=== PATIENT | female | born 1975 | race Hispanic/Latino ===

== ENCOUNTER 2017-07-31 15:26 | Inpatient (IN) | payer OTHER ==
[~2017-07-31] VITALS: Ht 154.9 cm; Wt 50.3 kg
[~2017-07-31 15:26] MED LIST: FEOSOL325 MG PO; HUMULIN R100 UNIT/2; Insulin Detemir SQ; K DUR10 MEQ PO; LANTUS 3ML100 UNITS/ SC; MECLIZINE HCL12.5 MG PO; METHIMAZOLE10 MG PO; METHIMAZOLE5 MG PO; METOPROLOL SUCC25 MG PO; NOVOLOG100 UNITS1; PANTOPRAZOLE SO40 MG PO; PROPRANOLOL HCL40 MG PO; TOPROL XL50 MG PO; TYLENOL WITH C1 EACH PO
[2017-07-31 17:08] LABS: BILIRUBIN,URINE NEGATIVE (NEGATIVE); KETONES,URINE NEGATIVE (NEGATIVE); LEUKOCYTE ESTERASE ,URINE 2+ (NEGATIVE); NITRITE,URINE NEGATIVE (NEGATIVE); URINE UROBILINOGEN 0.2 mg/dL (0.2 - 1)
[2017-07-31 17:09] LABS: CLARITY,URINE SL CLOUDY (CLEAR); COLOR,URINE YELLOW (YELLOW); PROTEIN,URINE DIPSTICK 1+ (NEGATIVE)
[2017-07-31 17:22] LABS: BACTERIA,URINE RARE /HPF; EPITHELIAL CELLS,URINE RARE /LPF; RBC,URINE >50 /HPF (0-5)
[2017-07-31 17:27] LABS: PREGNANCY TEST, URINE NEGATIVE (NEGATIVE)
[2017-07-31] MEDS ORDERED: LABETALOL HCL IV 5 MG/ML 20ML MDV IV STA ×2 (17:29→18:58)
[2017-07-31] MEDS ORDERED: MEROPENEM 1GRAM 1 GM in SODIUM CHLORIDE 0.9% 100 ML 100 ML IV STA (17:34)
[2017-07-31] MEDS ORDERED: SODIUM CHLORIDE 0.9% 1000ML 1,000 ML IV SCH ×4 (17:34→19:21)
[2017-07-31 17:45] LABS: AMPHETAMINES SCREEN,URINE NEGATIVE (NEGATIVE); BENZODIAZEPINES SCREEN,URINE POSITIVE (NEGATIVE); PHENCYCLIDINE SCREEN,URINE NEGATIVE (NEGATIVE)
[2017-07-31 17:45] LABS: BASOPHILS % 0.4 % (0.0-1.0); EOSINOPHILS # (AUTO) 0.1 (0.0-0.4); HEMATOCRIT 35.4 % (34.2-44.1); LYMPHOCYTES # (AUTO) 1.6 (1.0-3.2); LYMPHOCYTES % 32.9 % (18.0-39.1); MEAN CORPUSCULAR HEMOGLOBIN 21.8 pg (28-32); MEAN CORPUSCULAR HGB CONC 31.1 g/dL (31-35); MEAN CORPUSCULAR VOLUME 70.2 fL (81-99); MONOCYTES # (AUTO) 0.5 (0.2-0.8); MONOCYTES % 9.6 % (4.4-11.3); NEUTROPHILS # (AUTO) 2.7 (2.1-6.9); NEUTROPHILS % 54.9 % (38.7-80.0); PLATELET COUNT 394 x10e3/uL (140-360); RED BLOOD COUNT 5.04 x10e6/uL (3.6-5.1)
[2017-07-31] MEDS ORDERED: MORPHINE SULFATE 5 MG/ML VIAL IV ONE (17:45)
[2017-07-31 17:46] LABS: CANNABINOIDS SCREEN,URINE NEGATIVE (NEGATIVE)
[2017-07-31 18:03] LABS: ALANINE AMINOTRANSFERASE 18 IU/L (0-55); ALBUMIN 3.6 g/dL (3.5-5.0); ALBUMIN/GLOBULIN RATIO 0.6 (0.8-2.0); ALKALINE PHOSPHATASE 232 IU/L (40-150); ANION GAP 13.3 mmol/L (8-16); BLOOD UREA NITROGEN 15 mg/dL (7-26); BUN/CREATININE RATIO 26 (6-25); CALCIUM 9.2 mg/dL (8.4-10.2); CARBON DIOXIDE 18 mmol/L (22-29); CHLORIDE 106 mmol/L (98-107); CREATININE, SERUM 0.58 mg/dL (0.57-1.11); EST GLOMERULAR FILTRATION RATE > 60 ML/MIN (60-); GLUCOSE 164 mg/dL (74-118); POTASSIUM 4.3 mmol/L (3.5-5.1); SODIUM 133 mmol/L (136-145)
[2017-07-31 18:23] LABS: THYROID STIMULATING HORMONE 0.001 uIU/mL (0.350-4.940)
[2017-07-31] MEDS ORDERED: METOPROLOL TART25 MG PO (18:29)
[2017-07-31] MEDS ORDERED: METHIMAZOLE10 MG PO (18:29)
[2017-07-31] MEDS ORDERED: SODIUM CHLORIDE 0.9% 50ML 50 ML ONE (19:19)
[2017-07-31] MEDS ORDERED: IOPAMIDOL 300MG/ML 100 ML INFUS..BTL IV ONE (19:20)
[2017-07-31] MEDS ORDERED: IOPAMIDOL 370 MG/ML 200 ML INFUS..BTL INJ ONE (19:21)
[2017-07-31] MEDS: SODIUM CHLORIDE 0.9% 1000ML 1,000 ML IV SCH (19:24)
--- NOTE | 2017-07-31 19:29 | Diagnostic Imaging Report ---
CT Abdomen And Pelvis with Intravenous Contrast INDICATION: Recurrent UTI, evaluate for pyelonephritis TECHNIQUE: Thin collimation axial images obtained from the diaphragm to the level of the pubic symphysis following the uneventful administration of 100 cc of low osmolar, nonionic intravenous contrast. RADIATION DOSE: Total DLP: 195 mGy*cm Estimated effective dose: (DLP x 0.015 x size factor) mSv CTDIvol has been reviewed. It is below the limits set by the Radiation Protocol Committee (RPC). COMPARISON: CT abdomen/pelvis 12/26/2016. ABDOMEN FINDINGS: Lung Bases: Clear. The visualized portions of the mediastinum are normal.. Liver: Normal attenuation. No evidence for mass. Gallbladder: Absent. The common bile duct is distended measuring up to 9 mm in diameter. This comes to a tight taper at the ampulla. No intraluminal calculi.. Pancreas: A cystic lesion between the pancreas head and the stomach measures 1.9 x 2.4 cm (previously, 1.3 x 2.0 cm). A fluid collection in the splenic hilum measures 2.0 x 2.7 cm (previously, 2.4 x 6.0 cm). The pancreas tail is mildly atrophic with poor enhancement. No ductal dilatation or calcification. Spleen: Lobulated contours suggestive of scarring. The spleen measures 11 cm in length. Adrenal Glands: No evidence for mass. Kidneys: Right: Normal enhancement. No cortical mass. No hydronephrosis. Left: There is normal enhancement. The collecting system is distended. A stent in the renal pelvis extends into the bladder. No perinephric inflammation. Renal cortical scarring has developed.. No cortical mass. Lymph Nodes: Mildly prominent left periaortic lymph nodes measure up to 18 mm. No abdominal lymphadenopathy. Aorta: Normal in diameter. No free fluid. PELVIS FINDINGS: Bowel: Small Bowel: Normal in caliber with normal wall thickness. Large Bowel: Normal in caliber with normal wall thickness. Appendix: Normal appendix. Bladder: Contains the left ureteral stent and nondependent air. The bladder díaz are mildly thickened. This could be from underdistention or cystitis. The right ureter is collapsed. There are no encrustations along the course of the stent. Uterus: Present. A solid mass in the body to the left of midline measures 9.5 x 9.5 cm in the coronal plane and deviates the endometrium to the right. This is similar in size compared to previous exam. A mass extending to the right of the uterine fundus measures 5.2 x 7.1 cm in the axial plane and has enhancement similar to that of more normal myometrium. The cervix has normal enhancement. Ovaries: A low attenuating lesion the right ovary measures 1.8 x 2.4 cm. A low attenuating lesion in the left ovary measures 2.0 x 2.5 cm. There is no free fluid or fluid collection. Lymph nodes: No enlarged mesenteric lymph nodes. Lymph nodes along the pelvic sidewalls measure up to 10 mm. No enlarged inguinal lymph nodes. Bones: The bones are diffusely demineralized. There are no lytic or blastic lesions.. IMPRESSION: 1. Left intrauterine stent is in appropriate position with mild hydronephrosis. No CT evidence of acute pyelonephritis. 2. Diffuse bladder wall thickening could be the result of chronic cystitis. Superimposed acute cystitis cannot be excluded. 3. Large hypoenhancing mass in the uterus is more suggestive of a leiomyosarcoma rather than a leiomyoma. Mass arising from the uterine fundus has a more usual appearance of a pedunculated leiomyoma. 4. Bilateral ovarian cysts as described above. 5. Fluid collections around the pancreas are suggestive of pseudocysts. 6. 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 7. Scarring of the left kidney. 8. Cholecystectomy and mild biliary ductal dilatation suggestive of reservoir effect. Signed by: Dr. Zulma Vicente MD on 07/31/2017 7:25 PM
[2017-07-31] MEDS ORDERED: SODIUM CHLORIDE FLUSH 10 ML SYR INJ PRN (19:30)
[2017-07-31] MEDS ORDERED: MEROPENEM 1GRAM 1 GM in SODIUM CHLORIDE 0.9% 100 ML 100 ML IV SCH (19:30)
[2017-07-31] MEDS: MEROPENEM 1 GM VIAL IV SCH (19:49)
[2017-07-31 20:46] LABS: LYMPHOCYTES % (MANUAL) 34 % (19-48); MONOCYTES % (MANUAL) 11 % (3.4-9.0); NEUTROPHILS % (MANUAL) 54 % (40-74)
[2017-07-31 20:48] LABS: ANISOCYTOSIS SLIGHT; PLATELET ESTIMATE ADEQUATE; PLATELET MORPHOLOGY COMMENT FEW LARGE; POIKILOCYTOSIS SLIGHT; RBC MORPHOLOGY COMMENT NORMAL
[2017-07-31 21:23] VITALS: BP 132/63
[2017-07-31 22:00] VITALS: BP 132/63
[2017-07-31 22:37] VITALS: BP 132/63
[2017-07-31] MEDS: MORPHINE SULFATE 2 MG/ML SYR IV PRN (23:28)
[2017-08-01] VITALS (8 sets, daily range): BP systolic 109–139; BP diastolic 55–71
[2017-08-01] MEDS: SODIUM CHLORIDE 0.9% 1000ML 1,000 ML IV SCH (02:58)
[2017-08-01] MEDS: MORPHINE SULFATE 2 MG/ML SYR IV PRN ×2 (04:33→09:53)
[2017-08-01 06:56] LABS: BASOPHILS % 0.5 % (0.0-1.0); EOSINOPHILS # (AUTO) 0.2 (0.0-0.4); EOSINOPHILS % 3.8 % (0.0-6.0); HEMATOCRIT 29.1 % (34.2-44.1); LYMPHOCYTES # (AUTO) 1.5 (1.0-3.2); LYMPHOCYTES % 38.4 % (18.0-39.1); MEAN CORPUSCULAR HEMOGLOBIN 21.6 pg (28-32); MEAN CORPUSCULAR HGB CONC 30.9 g/dL (31-35); MEAN CORPUSCULAR VOLUME 69.8 fL (81-99); MONOCYTES # (AUTO) 0.5 (0.2-0.8); MONOCYTES % 12.1 % (4.4-11.3); NEUTROPHILS # (AUTO) 1.8 (2.1-6.9); NEUTROPHILS % 44.9 % (38.7-80.0); PLATELET COUNT 306 x10e3/uL (140-360); RED BLOOD COUNT 4.17 x10e6/uL (3.6-5.1); RED CELL DISTRIBUTION WIDTH 17.1 % (11.7-14.4)
[2017-08-01 07:22] LABS: ALANINE AMINOTRANSFERASE 14 IU/L (0-55); ALBUMIN 2.8 g/dL (3.5-5.0); ALBUMIN/GLOBULIN RATIO 0.6 (0.8-2.0); ALKALINE PHOSPHATASE 193 IU/L (40-150); ANION GAP 10.7 mmol/L (8-16); BLOOD UREA NITROGEN 15 mg/dL (7-26); BUN/CREATININE RATIO 31 (6-25); CALCIUM 8.4 mg/dL (8.4-10.2); CARBON DIOXIDE 19 mmol/L (22-29); CHLORIDE 108 mmol/L (98-107); CREATININE, SERUM 0.49 mg/dL (0.57-1.11); EST GLOMERULAR FILTRATION RATE > 60 ML/MIN (60-); GLUCOSE 200 mg/dL (74-118); MAGNESIUM 1.5 MG/DL (1.3-2.1); PHOSPHORUS 2.8 MG/DL (2.3-4.7); POTASSIUM 3.7 mmol/L (3.5-5.1); SODIUM 134 mmol/L (136-145)
[2017-08-01] MEDS: MEROPENEM 1 GM VIAL IV SCH (08:24)
[2017-08-01] MEDS: METHIMAZOLE 5 MG TAB PO SCH ×3 (08:25→21:23)
[2017-08-01] MEDS: INSULIN ASPART 70/30 100 UNITS/ML VIAL SC SCH ×3 (08:25→16:31)
[2017-08-01] MEDS: METOPROLOL TARTRATE 25 MG TAB PO SCH ×3 (08:25→16:31)
[2017-08-01] MEDS ORDERED: METHIMAZOLE PO SCH (09:00)
[2017-08-01] MEDS ORDERED: METOPROLOL TARTRATE 25 MG TAB PO SCH (09:00)
[2017-08-01] MEDS: ONDANSETRON HCL INJ 2 MG/ML VIAL IV PRN ×2 (09:53→14:49)
[2017-08-01 13:04] LABS: % IRON SATURATION 5 % (15-50); IRON 17 ug/dL (50-170); TOTAL IRON BINDING CAPACITY 351 ug/dL (261-478); TRANSFERRIN 251 mg/dL (180-382)
--- NOTE | 2017-08-01 13:59 | History and Physical ---
HISTORY: This is a 41-year-old woman with chronic urinary tract infection. Admitted via the emergency room because of hematuria, abdominal pains worsening over the past 3 days. This patient also has hyperthyroidism treated with methimazole and metoprolol. 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 She has been seen by Dr. Mars at [facility] for urology and sees an case management rn. She follows with Dr. Caleb Murray for diabetes, microcytic anemia, recurrent pancreatitis, thrombocytopenia. She has been hospitalized at [facility] as well as here in 2016. PAST MEDICAL HISTORY: Remarkable for the above-mentioned conditions. She takes Lantus insulin 30 units nightly as well as short-acting insulin 12 units t.i.d. with meals. Other medications include metoprolol 25 mg b.i.d., methimazole 10 mg p.o. t.i.d., hydromorphone, Pepcid. PERSONAL AND SOCIAL HISTORY: She smokes 1/2 package per day since age 13. She drinks occasionally. She is unemployed. FAMILY HISTORY: Father from murder when she was 1 years old. Mother had diabetes. REVIEW OF SYSTEMS: Otherwise noncontributory. PHYSICAL EXAMINATION: GENERAL: She is alert, coherent, appears to be comfortable. VITAL SIGNS: Temperature 96.8. Pulse 100, regular. Blood pressure 118/58. CARDIAC: Jugular veins are not distended. S1 and S2 are regular. There are no appreciable murmurs. RESPIRATORY: Lungs are clear. ABDOMEN: Showed diffuse tenderness but mild. Soft. Bowel sounds are present. EXTREMITIES: Show no cyanosis, clubbing or edema. IMPRESSION: 1. Recurrent urinary tract infection with left ureteral stent, possible pyelonephritis with evidence of scarring in the left kidney. 2. Hyperthyroidism. 3. Insulin-dependent diabetes with history of ketoacidosis. 4. History of pancreatitis. 5. History of thrombocytopenia. 6. Microcytic anemia, consider iron deficiency. 7. Hyponatremia, serum sodium 133. 8. History of pancreatitis. RECOMMENDATIONS: Infectious disease, endocrinology consultations, urology consultation. Consider removing left ureteral stent. Culture urine to identify the bacteria and appropriate antibiotics. Job#: [id number] cc:MD SPIKE LEOS MD MAURICE E. AKUCHIE, MD KULDIP KAUL, MD
[2017-08-01 14:00] LABS: T3 UPTAKE 31.8 % (22.50-37.00); THYROID STIMULATING HORMONE 0.001 uIU/mL (0.350-4.940)
[2017-08-01] MEDS ORDERED: AZTREONAM 1 GM VIAL IV SCH (14:00)
[2017-08-01] MEDS: AZTREONAM (AZACTAM) 1 GM in WATER STERILE 10ML VIAL 10 ML IV SCH ×2 (14:00→21:23)
[2017-08-01] MEDS ORDERED: AZTREONAM 1 GM/NS 50 ML 50 ML IV SCH (14:00)
[2017-08-01] MEDS ORDERED: WATER STERILE 10 ML VIAL INJ SCH (14:00)
--- NOTE | 2017-08-01 14:28 | Consultation ---
DATE OF CONSULTATION: August 01, 2017 ATTENDING PHYSICIAN: Dr. Jose Alejandro Werner. REASON FOR CONSULTATION: Recurrent urinary tract infection. Thank you, Dr. Werner, for asking me to see this patient. HISTORY: The patient is a 47-year-old woman referred for recurrent urinary tract infection. She presented to emergency department with bilateral flank pain, suprapubic pain, hematuria and dysuria. She denies fever, chills, nausea, vomiting and diarrhea. She reports good appetite. She had had similar symptoms in the past and was discovered to have pelvic mass obstructing the left ureter. She was evaluated by the urologist and underwent left ureteral stent placement, which was exchanged about 6 months ago during hospitalization. Also, the patient was evaluated by application security developer for pelvic mass and was referred to gynecologic oncologist at [facility] (appointment was scheduled for August 13, 2017). PAST MEDICAL HISTORY: Diabetes mellitus type 2, hyperthyroidism, nephrolithiasis, and multinodular goiter. PAST SURGICAL HISTORY: (?)Cholecystectomy, tubal ligation, and ureteral stent placement. ALLERGIES: CIPROFLOXACIN AND CEPHALEXIN WHICH CAUSED RED RASH, AND NSAIDS. MEDICATIONS: The current antibiotic is meropenem 1 gram IV piggyback q.12 hours. IMMUNIZATION: The patient has not received influenza vaccine. FAMILY HISTORY: Significant for diabetes mellitus type 2 in the mother. The father was murdered at age 32. SOCIAL HISTORY: She quit smoking cigarettes in 2013. She denies alcohol use. REVIEW OF SYSTEMS: As per history of present illness. She still has dysuria, flank pain and suprapubic pain. There is no fever, chills, cough, shortness of breath, nausea, vomiting and diarrhea. PHYSICAL EXAMINATION GENERAL: In no acute distress. VITAL SIGNS: T-max 98.4, pulse 100, respiratory rate 18, blood pressure 118/58. Weight 111 pounds. HEENT: Normocephalic. There is no icterus or injection of conjunctivae. There is no ear or nasal discharge. Moist oral mucosa. No pharyngeal erythema or exudate. NECK: Supple. No lymphadenopathy. LUNGS: Good air entry bilaterally. HEART: Normal S1 and S2. ABDOMEN: Soft. EXTREMITIES: There is no edema, clubbing or cyanosis. FIRE BATTALION CHIEF: Awake, alert and oriented to person, place and time. Nonfocal. LABORATORY: WBC 3980, hemoglobin 9, platelet 306,000, neutrophil 44.9, lymph 38.4, mono 12.1, eosinophil 3.8, basophil 0.5. BUN 15, creatinine 0.49, blood glucose 229. AST 20, ALT 14, alk phos 193, total bilirubin less than 0.3. Urine culture showed no growth in less than [address] scan of the abdomen and pelvis showed left ureteric stent in appropriate position with mild hydronephrosis and no CT evidence of acute pyelonephritis; diffuse bladder wall thickening; large hypo-enhancing mass in the uterus; bilateral ovarian cysts; fluid collection around pancreas. IMPRESSION 1. Hematuria, (?) passed renal stone versus suspected urinary tract infection. 2. Uterine mass, awaiting gynecologic oncologist evaluation. 3. Diabetes mellitus type 2, uncontrolled. 4. Hyperthyroidism. PLAN 1. Consult urology service. 2. Await final urine culture result. 3. Change antibiotic to aztreonam 1 gram IV piggyback q.8 hours. If final urine culture is negative, antibiotic may be discontinued and patient monitored. The patient was offered influenza vaccination, but she declined. 4. Evaluation at this institution should be expedited so that the patient may keep her appointment at [facility]. Job#: [id number] JOSE G
[2017-08-01] MEDS ORDERED: MORPHINE SULFATE 2 MG/ML SYR IV PRN (14:30)
[2017-08-01] MEDS ORDERED: DEXTROSE 50% SYRINGE 50 ML IV PRN (14:30)
--- NOTE | 2017-08-01 14:33 | Consultation ---
DATE OF CONSULTATION: August 01, 2017 UROLOGY CONSULTATION REQUESTING PHYSICIAN: Dr. Werner. CHIEF UROLOGIC COMPLAINT/REASON FOR CONSULTATION: Kidney stents. HISTORY OF PRESENT ILLNESS: Ms. Bojorquez is a 41-year-old noncompliant female patient admitted to the hospital with no call to urologist with indwelling stents placed by Dr. Mars at an outside hospital. Per the patient, Dr. Mars first placed a stent for her uterine mass in August of 2016. She went back to the emergency room in December of 2016 and had a second stent placed, but per her report, the first stent was not removed. She has also had a bilateral tubal ligation and cholecystectomy. MEDICATIONS: Please see MAR. ALLERGIES: CIPRO, KEFLEX, AND NSAIDS. SOCIAL HISTORY: No smoking. No drinking. FAMILY HISTORY: Denied urologic stones or malignancies. REVIEW OF SYSTEMS: Noncontributory. Positive as above. PHYSICAL EXAMINATION VITALS: Temperature 96.8, pulse 100, respirations 18, and blood pressure 118/56. GENERAL: A middle-aged female, in no acute distress. HEENT: Sclerae anicteric. NECK: Supple. BACK: Without costovertebral angle tenderness bilaterally. ABDOMEN: Soft, nontender, and nondistended. There is no palpable mass. No palpable hernias. No palpable adenopathy. : Normal female external genitalia. EXTREMITIES: No edema of lower extremities. PSYCH: Alert and mood appropriate. SKIN: Intact. Normal color. PERTINENT LABORATORY DATA: Sodium 134, potassium 3.7, chloride 108, bicarb 19, BUN 15, creatinine 0.49, and glucose 200. Hemoglobin 9, hematocrit 29, platelet count 306,000, and white blood cell count 3980. Urinalysis 11-20 whites, 50-100 reds. Urine tox, positive benzodiazepines. A CT scan is revealing a pancreatic cyst 2.9 cm, left-sided cyst, left-sided hydronephrosis, and large paraaortic lymphadenopathy on the left side, and 9 x 9 cm left uterine mass. IMPRESSION 1. Left hydronephrosis. 2. Left indwelling ureteral stent. 3. Urinary tract infection. 4. Hematuria. 5. Noncompliance. 6. Uterine mass. 7. Abdominal pain. PLAN: The patient has an indwelling stent placed by another urologist. I explicitly explained to her that the stent has to be removed. Failure to do so could be encrustation, infection and inflammation also to kidney. I also stated that the typical indwelling stent time is only 3 months and it has been over 6 months since she has had her stent placed. We will obtain a culture and adjust culture-specific antibiotics as available. Thank you for allowing me to participate in the care of this patient. Will be happy to follow along with you. Job#: [id number] SAK cc:MD Caleb Kelly MD Kuldip K. Kaul, MD
[2017-08-01] MEDS: MORPHINE SULFATE 5 MG/ML VIAL IV PRN ×2 (14:43→20:11)
[2017-08-01] MEDS ORDERED: WATER STERILE 10 ML VIAL INJ PRN (15:00)
[2017-08-01 15:06] LABS: FREE THYROXINE INDEX 3.8128 (1.4-3.8)
--- NOTE | 2017-08-01 15:22 | Consultation ---
DATE OF CONSULTATION: August 01, 2017 ENDOCRINE CONSULTATION This is a patient of Dr. Jose Alejandro Werner. Thank you very much for referring this patient. This is a 41-year-old female who has history of hyperthyroidism. Patient is known to me from her previous followup at [facility]. Patient has a known case of hyperthyroidism for almost 4 to 5 years. She has been on and off the methimazole. Patient tells me that she has been on methimazole 10 mg 3 times a day for last 4 to 5 months. She also has history of urinary tract infection, renal cyst and also had history of pancreatitis for which she was at [facility] for several months. She is a known diabetic. She is on several medications at home including the methimazole and insulin 12 units 3 times a day of Humalog and Lantus once a day. Patient is being evaluated by infectious disease and urologist also during the hospital stay. PHYSICAL EXAMINATION GENERAL: Today, the patient is alert, awake, a little bit apprehensive. She has bilateral lid lag. Her thyroid is palpable about 3 times the normal size with multiple nodules on both sides. CHEST: Examination shows bilateral vesicular breathing. She has mild bronchospasm. CARDIAC: Both 1st and 2nd heart sounds. There is no 3rd or 4th heart sound. Ejection systolic murmur, grade 2/6. EXTREMITIES: Patient has mild hand tremor. LABS: Her lab evaluation so far has revealed her blood sugars are in the ranges of 150 to 200. CLINICAL IMPRESSION 1. Recurrent hyperthyroidism with multinodular goiter. 2. Diabetes mellitus, type 2, uncontrolled with complications. 3. Status post acute pancreatitis. 4. Urinary tract infection. PLAN: The plan at this time is to do a free T3, free T4, TSH, antiperoxidase antibody and hemoglobin A1c. In the meantime, the patient is being evaluated by the urology group as well as infectious disease. Thanks again for referring this patient. I will be following this patient with you. Job#: [id number]
[2017-08-01] MEDS: INSULIN LISPRO 100 UNIT/1 ML 3ML VIAL SQ SCH ×2 (16:23→20:38)
--- NOTE | 2017-08-01 19:26 | Diagnostic Imaging Report ---
Renal Scan Reason for exam: 41 F with chronic UTI's presents with hematuria and abdominal pain. Radiopharmaceutical: Tc-99m MAG3 10.4 mCi Report: After administration of the radiopharmaceutical, dynamic images of the kidneys were obtained through 40 minutes. LEFT KIDNEY: Perfusion is prompt. The left kidney has a very slightly elongated reniform shape with mild thinning of the renal cortex. Extraction of tracer from the blood pool is normal. Clearance of tracer from the renal parenchyma is prompt. The pelvicaliceal system is mildly dilated. Increased pooling of tracer is seen within the pelvicaliceal system. Drainage of tracer from the pelvicaliceal system is prolonged. Stasis of tracer is seen in the left ureter that persists throughout the study but the ureter does not appear dilated. RIGHT KIDNEY: Perfusion is prompt. The kidney has a normal reniform shape. Extraction of tracer from the blood pool is normal. Clearance of tracer from the renal parenchyma is prompt. The pelvicaliceal system is not dilated but two calices in the upper pole are prominent. Mildly increased tracer is seen in the upper pole calices. Drainage of tracer from the pelvicaliceal study is normal. No stasis of tracer is seen in the right ureter. DIFFERENTIAL RENAL FUNCTION: Left kidney 38% and right kidney 62% (normal 43-57%. Impression: 1. Mild scarring of the left kidney evidenced by thinning of the renal cortex is present and accounts for the decreased differential function of 38%. Very mild hydronephrosis is present. Cannot assess significant partial obstruction without Lasix washout. 2. The right kidney shows generally normal function. Two prominent calices in the upper pole may be due to limited scarring. Signed by: Dr. Sondra Prasad M.D. on 08/01/2017 7:23 PM
[2017-08-01] MEDS: INSULIN DETEMIR 100 UNIT/ML PEN SQ SCH (21:00)
[2017-08-02] VITALS: BP 126/69
[2017-08-02] MEDS: MORPHINE SULFATE 5 MG/ML VIAL IV PRN ×5 (00:30→22:00)
[2017-08-02 04:00] VITALS: BP 113/61
[2017-08-02] MEDS: AZTREONAM (AZACTAM) 1 GM in WATER STERILE 10ML VIAL 10 ML IV SCH ×3 (06:42→23:10)
[2017-08-02 07:26] LABS: INR 1.01; PROTHROMBIN TIME 13.8 seconds (11.9-14.5)
[2017-08-02] MEDS: INSULIN LISPRO 100 UNIT/1 ML 3ML VIAL SQ SCH ×4 (07:30→21:00)
[2017-08-02 08:00] VITALS: BP 140/71
[2017-08-02] MEDS: INSULIN ASPART 70/30 100 UNITS/ML VIAL SC SCH ×3 (08:00→17:38)
[2017-08-02] MEDS: METOPROLOL TARTRATE 25 MG TAB PO SCH ×3 (09:00→17:38)
[2017-08-02] MEDS ORDERED: SODIUM BICARBONATE 650 MG TAB PO ONE (10:15)
[2017-08-02] MEDS ORDERED: SODIUM CHLORIDE 452MG TAB PO ONE (10:15)
[2017-08-02] MEDS: METHIMAZOLE 5 MG TAB PO SCH ×3 (10:30→21:58)
[2017-08-02 11:01] VITALS: BP 140/71
[2017-08-02 12:00] VITALS: BP 122/65
[2017-08-02] MEDS: FERROUS SULFATE 325 MG TAB PO SCH (12:30)
[2017-08-02 20:00] VITALS: BP 107/58
[2017-08-02] MEDS: INSULIN DETEMIR 100 UNIT/ML PEN SQ SCH (21:00)
[2017-08-03] VITALS: BP 117/58
[2017-08-03 01:11] VITALS: BP 117/58
[2017-08-03] MEDS: MORPHINE SULFATE 5 MG/ML VIAL IV PRN ×4 (01:20→15:20)
[2017-08-03 04:00] VITALS: BP 112/56
[2017-08-03] MEDS: AZTREONAM (AZACTAM) 1 GM in WATER STERILE 10ML VIAL 10 ML IV SCH (05:03)
[2017-08-03 07:52] VITALS: BP 112/58
[2017-08-03] MEDS: INSULIN ASPART 70/30 100 UNITS/ML VIAL SC SCH ×2 (08:00→13:00)
[2017-08-03 08:02] LABS: INR 0.97; PROTHROMBIN TIME 13.4 seconds (11.9-14.5)
[2017-08-03 08:10] LABS: ANION GAP 8.7 mmol/L (8-16); BLOOD UREA NITROGEN 14 mg/dL (7-26); BUN/CREATININE RATIO 27 (6-25); CALCIUM 8.4 mg/dL (8.4-10.2); CARBON DIOXIDE 22 mmol/L (22-29); CHLORIDE 108 mmol/L (98-107); CREATININE, SERUM 0.51 mg/dL (0.57-1.11); EST GLOMERULAR FILTRATION RATE > 60 ML/MIN (60-); GLUCOSE 203 mg/dL (74-118); POTASSIUM 3.7 mmol/L (3.5-5.1); SODIUM 135 mmol/L (136-145)
[2017-08-03] MEDS: INSULIN LISPRO 100 UNIT/1 ML 3ML VIAL SQ SCH ×2 (08:30→11:30)
[2017-08-03] MEDS: FERROUS SULFATE 325 MG TAB PO SCH (09:00)
[2017-08-03] MEDS: METHIMAZOLE 5 MG TAB PO SCH ×2 (09:00→15:00)
[2017-08-03] MEDS: METOPROLOL TARTRATE 25 MG TAB PO SCH (09:00)
[2017-08-03 09:12] VITALS: BP 112/58
[2017-08-03] MEDS ORDERED: LOPRESSOR25 MG PO (12:41)
[2017-08-03] MEDS ORDERED: Insulin Lispro SQ (12:41)
[2017-08-03] MEDS ORDERED: Insulin Detemir SQ (12:41)
[2017-08-03] MEDS ORDERED: ULTRAM 50MG50 MG PO (12:41)
[2017-08-03] MEDS ORDERED: METHIMAZOLE5 MG PO (12:41)
[2017-08-03] MEDS ORDERED: Insulin Aspart 70/30 10ML Vial SC (12:41)
[2017-08-03] MEDS ORDERED: FEOSOL325 MG PO (12:41)
[2017-08-03] MEDS ORDERED: NOVOLOG100 UNIT/1 SQ (15:23)
--- NOTE | 2017-08-03 19:14 | Discharge Summary ---
CLINICAL HISTORY: This is a 41-year-old woman, a patient Dr. Phillip Murray, who is admitted via the emergency room because of fever, urinary tract infection, pyelonephritis, hypothyroidism, tachycardia, and diabetes, poorly controlled. Please refer to my previous dictation concerning details of current illness, past medical history, personal/social history, family history, review of systems, physical examination and initial laboratory studies. HOSPITAL COURSE: The patient was seen in consultation by infectious disease database reporting consultant, Dr. Johan Mcclure, who recommended intravenous antibiotics but recommended discontinuing this medication. Urine culture was negative, possibly due to partially treated infection. Urinalysis did have a lot of white cells. The ureteral stent had been there for almost 6 months. It was decided that this definitely needs to be removed. Urology consultation was obtained with Dr. Pringle who recommended removal. However, this could not be arranged while she is in the and Dr. Pringle preferred to do this in his office and made arrangements to have the patient have this done in his office next week ago. With respect to hypothyroidism, her methimazole was increased to 15 [address]d. by Dr. Gagan Walker, the automobile radio repairer. Insulin dose was increased with 30 units of Levemir at night, 15 unit of 70/30 insulin in the morning as well as sliding scale averaging about3-4 units per meal t.i.d.. Metoprolol tartrate was increased to 50 mg b.i.d. because of the tachycardia. She was found to have iron deficiency. Guaiac was negative. She was started on iron sulfate 325 mg per day. Will probably have to take this for at least 3 months. She requested to take tramadol pain medication. She is discharged on the following medication: Iron sulfate 325 mg p.o. daily. Methimazole 15 mg p.o. t.i.d. Metoprolol tartrate 50 mg b.i.d. Tramadol 50 mg p.o. daily. P.r.n. insulin 70/30 a. NovoLog daily. Levemir 30 units nightly. Sliding scale insulin. She was given medication and followup instructions. She will see Dr. Gagan Walker and Dr. Murray in one week and will see me as needed. Will see Dr. Pringle next week. DISCHARGE DIAGNOSES: 1. Urinary tract infection with left pyelonephritis with hydronephrosis requiring removal of implanted left ureteral stent in Dr. Pringle's office on an outpatient basis. 2. Hypothyroidism with resting tachycardia with medicine increased. 3. Poorly controlled insulin-dependent diabetes with ketoacidosis. 4. Hyponatremia, corrected. 5. History of pancreatitis. 6. History of thrombocytopenia. 7. Iron deficiency, microcytic anemia. AFSANEH CHAMBERLAIN MD Job#: [id number] cc:PHILLIP MURRAY MD cc:GAGAN WALKER MD
== END 2017-08-03 16:25 | disposition home or self-care (01) | DRG 690 ==
LOC: ER 15:26 → MED/SURG 19:52
PROVIDERS: ADMIT Internal Medicine Cardiovascular Disease; ATTEND Internal Medicine Cardiovascular Disease
DX: N12 Tubulo-interstitial nephritis, not specified as acute or chronic (principal); E87.2 Acidosis; E87.1 Hypo-osmolality and hyponatremia; E11.65 Type 2 diabetes mellitus with hyperglycemia; N13.30 Unspecified hydronephrosis; E05.20 Thyrotoxicosis with toxic multinodular goiter without thyrotoxic crisis or storm; N30.21 Other chronic cystitis with hematuria; N85.9 Noninflammatory disorder of uterus, unspecified; D50.9 Iron deficiency anemia, unspecified; R00.0 Tachycardia, unspecified; Z91.19 Patient's noncompliance with other medical treatment and regimen; Z88.1 Allergy status to other antibiotic agents; Z88.6 Allergy status to analgesic agent; Z79.4 Long term (current) use of insulin; Z28.21 Immunization not carried out because of patient refusal; Z87.891 Personal history of nicotine dependence
CPT/HCPCS: 36415; 74177; 78707; 80048; 80053; 80307; 81001; 81025; 82150; 82270; 82948; 83036; 83540; 83605; 83690; 83735; 84100; 84436; 84439; 84443; 84466; 84479; 84481; 85025; 85610; 86376; 87086; 93005; 99284; A9562; J1815; J2185; J2270; J2405; J7030; Q9967

== ENCOUNTER → 2017-08-16 | Day surgery (SDC) | payer OTHER ==
[~2017-08-16] MED LIST changes: +DEXAMETHASONE SOD PHOS INJ 4 MG/ML VIAL ONE; +FENTANYL CITRATE/PF 100MCG/2 ML INJ ONE; +GENTAMICIN 80MG/NS 100 ML 100 ML IV ONE; +Insulin Aspart 70/30 10ML Vial SC; +Insulin Lispro SQ; +KETOROLAC TROMETHAMINE 30 MG/ML VIAL ONE; +LIDOCAINE HCL 2% LOCAL INJ 5 ML SDV VIAL INJ ONE; +LOPRESSOR25 MG PO; +METOPROLOL TART25 MG PO; +MIDAZOLAM HCL 2 MG/2 ML VIAL ONE; +MORPHINE SULFATE 5 MG/ML VIAL ONE; +NOVOLOG100 UNIT/1 SQ; +ONDANSETRON HCL INJ 2 MG/ML VIAL ONE; +PROPOFOL IV EMULSION 10 MG/ML 20 ML VIAL ONE; +SEVOFLURANE INHAL SOLN 250 ML PEN BTL ONE; +ULTRAM 50MG50 MG PO
--- NOTE | 2017-08-19 10:25 | Operative Report ---
DATE OF PROCEDURE: August 16, 2017 PREOPERATIVE DIAGNOSES 1. Left hydronephrosis. 2. Indwelling left ureteral stent. POSTOPERATIVE DIAGNOSES 1. Left hydronephrosis. 2. Indwelling left ureteral stent. PROCEDURES 1. Cystourethroscopy with complicated removal of left indwelling ureteral stent (entirely separate procedure for encrusted left ureteral stent). 2. Cystourethroscopy with placement of left indwelling stent (entirely separate procedure for left hydronephrosis). 3. Supervision of fluoroscopy. 4. Interpretation of retrograde pyelography. ANESTHESIA: General. ESTIMATED BLOOD LOSS: Minimal. COMPLICATIONS: None. INDICATIONS: Ms. Bojorquez is a noncompliant 41-year-old female patient who had a stent placed at an outside hospital secondary to abdominal masses and hydronephrosis. She and I had a long discussion regarding the alternatives, risks and benefits including doing nothing, stent exchange, ureteroscopy, percutaneous surgery, and open surgery. She voiced understanding of the options, alternatives, risks and benefits, and she elected to proceed with stent exchange. She voiced understanding that stent is a temporary indwelling device and it must be removed and failure to do so could lead to encrustation, infection, inflammation, atrophy, loss of kidney, and even . She elected to proceed. PROCEDURE IN DETAIL: After informed consent was obtained, the patient was taken to the operative suite, placed supine on the operating table, and underwent general anesthesia by the anesthesia service. She was placed in the dorsal lithotomy position and sterilely prepped and draped in a standard fashion for cystoscopy. A 22.5-Malian cystoscope was inserted per urethra. A normal urethra was noted. Panendoscopy of the bladder revealed no tumors and no stones. Both ureteral orifices were in normal anatomic location and position. There was encrusted stent seen extruding from the left ureteral orifice. A Glidewire was inserted alongside the stent and seen to coil at the level of renal pelvis on nephroscopy. An open-ended was advanced over this. The stent was removed with moderate difficulty. A second 6 x 26 ureteral stent was placed with a coil in the renal pelvis and a coil in the bladder. Patient's bladder was drained, awakened from anesthesia, and transported to the recovery room in excellent condition. SUPERVISION OF FLUOROSCOPY AND INTERPRETATION OF RETROGRADE PYELOGRAPHY: I was present throughout the entire procedure and supervised the use of fluoroscopy as there was no radiologist present for the entirety of the procedure. Attention was turned toward the left ureteral orifice. It was catheterized with a 5-Malian open-ended catheter. Retrograde pyelogram was performed revealing continued hydronephrosis. Postoperative views revealed the left ureteral stent in adequate position. Job#: [id number] JOSE G
== END | disposition home or self-care (01) ==
LOC: OR 10:55
PROVIDERS: ATTEND Urology
DX: N13.30 Unspecified hydronephrosis (principal); N39.0 Urinary tract infection, site not specified; Z46.6 Encounter for fitting and adjustment of urinary device; E11.9 Type 2 diabetes mellitus without complications; I10 Essential (primary) hypertension; E07.9 Disorder of thyroid, unspecified; R49.0 Dysphonia; Z79.4 Long term (current) use of insulin; Z87.891 Personal history of nicotine dependence
CPT/HCPCS: 36415; 52332; 74420; 81025; 82948; C1758; J1100; J1580; J1885; J2001; J2250; J2270; J2405

== ENCOUNTER 2017-08-31 16:04 | Observation (INO) | payer OTHER ==
[~2017-08-31] VITALS: Ht 154.9 cm; Wt 59.9 kg
[~2017-08-31 16:04] MED LIST changes: -DEXAMETHASONE SOD PHOS INJ 4 MG/ML VIAL ONE; -FENTANYL CITRATE/PF 100MCG/2 ML INJ ONE; -GENTAMICIN 80MG/NS 100 ML 100 ML IV ONE; -KETOROLAC TROMETHAMINE 30 MG/ML VIAL ONE; -LIDOCAINE HCL 2% LOCAL INJ 5 ML SDV VIAL INJ ONE; -MIDAZOLAM HCL 2 MG/2 ML VIAL ONE; -MORPHINE SULFATE 5 MG/ML VIAL ONE; -ONDANSETRON HCL INJ 2 MG/ML VIAL ONE; -PROPOFOL IV EMULSION 10 MG/ML 20 ML VIAL ONE; -SEVOFLURANE INHAL SOLN 250 ML PEN BTL ONE
--- OUTSIDE RECORDS SUMMARY | 2017-08-31 16:07 | XMS REPORT ---
Author Author [facility] Address Unknown Phone Unavailable Care Team Providers Care Cigarette Inspector Name Role Phone AFSANEH CHAMBERLAIN Unavailable Unavailable Problems This patient has no known problems. Allergies, Adverse Reactions, Alerts This patient has no known allergies or adverse reactions. Medications This patient has no known medications. Results Test Description Test Time Test Comments Text Results Atomic Results Result Comments RENAL SCAN W/FLOW FUNCTION [place] [address] Patient Name: CHIKA MALDONADO MR #: [id number] : 1975 Age/Sex: 41/F Req #: [id number] Adm Physician: AFSANEH CHAMBERLAIN MD Ordered by: JANETH THOMPSON MD Report #: [id number] Location: MED/SURG Room/Bed: [facility] Procedure: [id number] NM/RENAL SCAN W/FLOW FUNCTION Exam Date: 08/01/17 Exam Time: 1330 REPORT STATUS: Signed Renal Scan Reason for exam: 41 F with chronic UTI's presents with hematuria and abdominal pain. Radiopharmaceutical: Tc-99m MAG3 10.4 mCi Report: After administration of the radiopharmaceutical, dynamic images of the kidneys were obtained through 40 minutes. LEFT KIDNEY: Perfusion is prompt. The left kidney has a very slightly elongated reniform shape with mild thinning of the renal cortex. Extraction of tracer from the blood pool is normal. Clearance of tracer from the renal parenchyma is prompt. The pelvicaliceal system is mildly dilated. Increased pooling of tracer is seen within the pelvicaliceal system. Drainage of tracer from the pelvicaliceal system is prolonged. Stasis of tracer is seen in the left ureter that persists throughout the study but the ureter does not appear dilated. RIGHT KIDNEY: Perfusion is prompt. The kidney has a normal reniform shape. Extraction of tracer from the blood pool is normal. Clearance of tracer from the renal parenchyma is prompt. The pelvicaliceal system is not dilated but two calices in the upper pole are prominent. Mildly increased tracer is seen in the upper pole calices. Drainage of tracer from the pelvicaliceal study is normal. No stasis of tracer is seen in the right ureter. DIFFERENTIAL RENAL FUNCTION: Left kidney 38% and right kidney 62% ( normal 43-57%. Impression: 1. Mild scarring of the left kidney evidenced by thinning of the renal cortex is present and accounts for the decreased differential function of 38%. Very mild hydronephrosis is present. Cannot assess significant partial obstruction without Lasix washout. 2. The right kidney shows generally normal function. Two prominent calices in the upper pole may be due to limited scarring. Signed by: Dr. Brandon Prasad M.D. on 08/01/2017 7:23 PM Dictated By: BRANDON PRASAD MD 22 Transcribed By: SHAISTA on 08/01/171922 COPY TO: JANETH THOMPSON MD CT ABDOMEN/PELVIS [place] [address] Patient Name: CHIKA MALDONADO MR #: [id number] : 1975 Age/Sex: 41/F Req # : [id number] Adm Physician: Ordered by: ENMA CASTRO MD Report #: [id number] Location: Room/Bed: Procedure: [id number] CT/CT ABDOMEN/PELVIS W Exam Date: 07/31/17 Exam Time: 1847 REPORT STATUS: Signed CT Abdomen And Pelvis with Intravenous Contrast INDICATION: Recurrent UTI, evaluate for pyelonephritis TECHNIQUE: Thin collimation axial images obtained from the diaphragm to the level of the pubic symphysis following the uneventful administration of 100 cc of low osmolar, nonionic intravenous contrast. RADIATION DOSE: Total DLP: 195 mGy*cm Estimated effective dose: ( DLP x 0.015 x size factor) mSv CTDIvol has been reviewed. It is below the limits set by the Radiation Protocol Committee (RPC). COMPARISON: CT abdomen/pelvis 12/26/2016. ABDOMEN FINDINGS: Lung Bases: Clear. The visualized portions of the mediastinum are normal.. Liver: Normal attenuation. No evidence for mass. Gallbladder: Absent. The common bile duct is distended measuring up to 9 mm in diameter. This comes to a tight taper at the ampulla. No intraluminal calculi.. Pancreas: A cystic lesion between the pancreas head and the stomach measures 1.9 x 2.4 cm (previously, 1.3 x 2.0 cm). A fluid collection in the splenic hilum measures 2.0 x 2.7 cm ( previously, 2.4 x 6.0 cm). The pancreas tail is mildly atrophic with poor enhancement. No ductal dilatation or calcification. Spleen: Lobulated contours suggestive of scarring. The spleen measures 11 cm in length. Adrenal Glands: No evidence for mass. Kidneys: Right: Normal enhancement. No cortical mass. No hydronephrosis. Left: There is normal enhancement. The collecting system is distended. A stent in the renal pelvis extends into the bladder. No perinephric inflammation. Renal cortical scarring has developed.. No cortical mass. Lymph Nodes: Mildly prominent left periaortic lymph nodes measure up to 18 mm. No abdominal lymphadenopathy. Aorta: Normal in diameter. No free fluid. PELVIS FINDINGS: Bowel: Small Bowel: Normal in caliber with normal wall thickness. Large Bowel: Normal in caliber with normal wall thickness. Appendix: Normal appendix. Bladder: Contains the left ureteral stent and nondependent air. The bladder díaz are mildly thickened. This could be from underdistention or cystitis. The right ureter is collapsed. There are no encrustations along the course of the stent. Uterus: Present. A solid mass in the body to the left of midline measures 9.5 x 9.5 cm in the coronal plane and deviates the endometrium to the right. This is similar in size compared to previous exam. A mass extending to the right of the uterine fundus measures 5.2 x 7.1 cm in the axial plane and has enhancement similar to that of more normal myometrium. The cervix has normal enhancement. Ovaries: A low attenuating lesion the right ovary measures 1.8 x 2.4 cm. A low attenuating lesion in the left ovary measures 2.0 x 2.5 cm. There is no free fluid or fluid collection. Lymph nodes: No enlarged mesenteric lymph nodes. Lymph nodes along the pelvic sidewalls measure up to 10 mm. No enlarged inguinal lymph nodes. Bones: The bones are diffusely demineralized. There are no lytic or blastic lesions.. IMPRESSION: 1. Left intrauterine stent is in appropriate position with mild hydronephrosis. No CT evidence of acute pyelonephritis. 2. Diffuse bladder wall thickening could be the result of chronic cystitis. Superimposed acute cystitis cannot be excluded. 3. Large hypoenhancing mass in the uterus is more suggestive of a leiomyosarcoma rather than a leiomyoma. Mass arising from the uterine fundus has a more usual appearance of a pedunculated leiomyoma. 4. Bilateral ovarian cysts as described above. 5. Fluid collections around the pancreas are suggestive of pseudocysts. 6. 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 7. Scarring of the left kidney. 8. Cholecystectomy and mild biliary ductal dilatation suggestive of reservoir effect. Signed by: Dr. Gabbie Vicente MD on 07/31/2017 7:25 PM Dictated By: GABBIE VICENTE MD 24 Transcribed By: SHAISTA on 07/31/171924 COPY TO: ENMA CASTRO MD
[2017-08-31] MEDS ORDERED: SODIUM CHLORIDE 0.9% 1000ML 1,000 ML IV STA ×2 (16:49→23:37)
[2017-08-31] MEDS ORDERED: ACETAMINOPHEN 325 MG TAB PO ONE (17:00)
[2017-08-31 17:24] LABS: BASOPHILS % 0.1 % (0.0-1.0); EOSINOPHILS # (AUTO) 0.1 (0.0-0.4); HEMATOCRIT 29.4 % (34.2-44.1); HEMOGLOBIN 8.9 g/dL (12.0-16.0); LYMPHOCYTES # (AUTO) 1.4 (1.0-3.2); LYMPHOCYTES % 18.7 % (18.0-39.1); MEAN CORPUSCULAR HEMOGLOBIN 21.2 pg (28-32); MEAN CORPUSCULAR HGB CONC 30.3 g/dL (31-35); MEAN CORPUSCULAR VOLUME 70.2 fL (81-99); MONOCYTES # (AUTO) 0.6 (0.2-0.8); MONOCYTES % 8.2 % (4.4-11.3); NEUTROPHILS # (AUTO) 5.3 (2.1-6.9); NEUTROPHILS % 71.6 % (38.7-80.0); PLATELET COUNT 403 x10e3/uL (140-360); RED BLOOD COUNT 4.19 x10e6/uL (3.6-5.1); RED CELL DISTRIBUTION WIDTH 19.4 % (11.7-14.4)
[2017-08-31] MEDS ORDERED: MORPHINE SULFATE 4 MG/ML SYR IV ONE (17:30)
[2017-08-31] MEDS ORDERED: ONDANSETRON HCL INJ 2 MG/ML VIAL IV ONE (17:30)
[2017-08-31 17:33] LABS: BILIRUBIN,URINE NEGATIVE (NEGATIVE); KETONES,URINE NEGATIVE (NEGATIVE); LEUKOCYTE ESTERASE ,URINE 2+ (NEGATIVE); NITRITE,URINE NEGATIVE (NEGATIVE); URINE UROBILINOGEN 0.2 mg/dL (0.2 - 1)
[2017-08-31 17:36] LABS: CLARITY,URINE HAZY (CLEAR); COLOR,URINE YELLOW (YELLOW); PROTEIN,URINE DIPSTICK 2+ (NEGATIVE)
[2017-08-31 17:41] LABS: RBC,URINE 21-50 /HPF (0-5); WBC,URINE (MAN) >50 /HPF (0-5)
[2017-08-31 17:44] LABS: BACTERIA,URINE MODERATE /HPF
[2017-08-31 17:45] LABS: EPITHELIAL CELLS,URINE FEW /LPF; MUCUS,URINE MODERATE (RARE); YEAST,URINE FEW
[2017-08-31 17:51] LABS: ALANINE AMINOTRANSFERASE 25 IU/L (0-55); ALBUMIN 2.9 g/dL (3.5-5.0); ALBUMIN/GLOBULIN RATIO 0.5 (0.8-2.0); ALKALINE PHOSPHATASE 213 IU/L (40-150); ANION GAP 13.6 mmol/L (8-16); BLOOD UREA NITROGEN 12 mg/dL (7-26); BUN/CREATININE RATIO 23 (6-25); CARBON DIOXIDE 22 mmol/L (22-29); CHLORIDE 103 mmol/L (98-107); CREATINE KINASE 28 IU/L (29-168); CREATININE, SERUM 0.53 mg/dL (0.57-1.11); EST GLOMERULAR FILTRATION RATE > 60 ML/MIN (60-); GLUCOSE 221 mg/dL (74-118); POTASSIUM 3.6 mmol/L (3.5-5.1); SODIUM 135 mmol/L (136-145)
--- NOTE | 2017-08-31 17:56 | Diagnostic Imaging Report ---
EXAM: CT Abdomen and Pelvis WITHOUT contrast INDICATION: Abdominal pain COMPARISON: None. TECHNIQUE: Abdomen and pelvis were scanned utilizing a multidetector helical scanner from the lung base to the pubic symphysis. Coronal and sagittal reformations were obtained. The lack of intravenous contrast limits the evaluation of the solid organs, vasculature, and possible lymphadenopathy. Protocol: General survey without contrast IV CONTRAST: No intravenous contrast was administered as per physician request. ORAL CONTRAST: None. COMPLICATIONS: None. RADIATION DOSE: Total Exam DLP: 196.8 mGy*cm. CTDIvol has been reviewed. It is below the limits set by the Radiation Protocol Committee (RPC). FINDINGS: LINES: None. Lower thorax: No parenchymal abnormality. No pneumothorax. No pleural effusion. Liver: No focal mass. No hepatomegaly. Normal parenchyma. Gallbladder: No gallstones. No gallbladder distention. Biliary tree: No intrahepatic duct dilation. No extrahepatic duct dilation. Spleen: No splenomegaly. No focal mass. Pancreas: No focal mass. Normal pancreatic duct. No peripancreatic inflammatory changes. Kidneys: Left ureteral stent is present with the proximal coil positioned within the left renal pelvis and the distal coil positioned within the urinary bladder. Moderate to severe left hydroureter and hydronephrosis is present. No obstructing calculi. No right hydronephrosis. No cysts. No perinephric soft tissue inflammatory changes. Adrenal glands: No adrenal nodules.. Bladder: Normal urinary bladder. Pelvic organs: Enlarged multi fibroid uterus, with a large loculated fibroid. Normal ovaries. GI: No bowel wall thickening. No air-fluid levels. The stomach and small bowel are normal. The colon is normal. Normal appendix. A moderate amount of retained feces limits intraluminal evaluation of the colon. Peritoneum/retroperitoneum: No pneumoperitoneum. No ascites. No drainable fluid collection. Lymph nodes: No lymphadenopathy. . Vessels: No focal abnormality. . Limited evaluation. Bones: No focal abnormality. . Soft tissues: No focal abnormality. IMPRESSION: Left ureteral stent in proper position. Left hydroureter and hydronephrosis. Signed by: Dr. Mike Castillo M.D. on 08/31/2017 5:52 PM
[2017-08-31] MEDS ORDERED: CEFTRIAXONE SOD 1 GM VIAL IV SCH (18:15)
[2017-08-31] MEDS ORDERED: NITROFURANTOIN MACROCRYSTALS 100 MG CAP PO ONE (19:45)
[2017-08-31] MEDS ORDERED: NITROFURANTOIN 50 MG CAP PO ONE (20:15)
[2017-08-31] MEDS ORDERED: HYDROCODONE/APAP 10MG-325MG TAB PO ONE (20:30)
[2017-08-31] MEDS ORDERED: MEROPENEM 1 GM VIAL ONE (23:31)
[2017-08-31] MEDS ORDERED: SODIUM CHLORIDE 0.9% 100 ML 100 ML ONE (23:37)
[2017-09-01] VITALS (9 sets, daily range): BP systolic 116–130; BP diastolic 59–77
[2017-09-01] MEDS ORDERED: HYDROMORPHONE 1MG/1ML INJ IV PRN
[2017-09-01] MEDS ORDERED: DEXTROSE 50% SYRINGE 50 ML IV PRN ×2 (00:30→13:45)
[2017-09-01] MEDS ORDERED: PANTOPRAZOLE 40 MG 10ML VIAL IV STA (00:42)
[2017-09-01] MEDS: ONDANSETRON HCL INJ 2 MG/ML VIAL IV PRN ×2 (01:02→10:08)
[2017-09-01] MEDS: SODIUM CHLORIDE 0.9% 1000ML 1,000 ML IV SCH ×3 (01:02→17:30)
[2017-09-01] MEDS ORDERED: PROPRANOLOL HCL 1 MG/ML VIAL INJ ONE (01:45)
[2017-09-01] MEDS ORDERED: PROPRANOLOL HCL 60 MG ER CAP PO ONE (01:45)
[2017-09-01] MEDS ORDERED: PROPRANOLOL HCL 10 MG TAB ONE (02:22)
[2017-09-01] MEDS: HYDROCORTISONE SOD SUCCINATE 100 MG VIAL IV SCH ×4 (02:25→22:32)
[2017-09-01] MEDS ORDERED: PROPRANOLOL HCL 1 MG/ML VIAL IV STA (03:00)
[2017-09-01] MEDS: METHIMAZOLE 5 MG TAB PO SCH ×5 (03:26→21:13)
[2017-09-01] MEDS ORDERED: MEROPENEM 1 GM VIAL ONE (05:17)
[2017-09-01] MEDS: HYDROMORPHONE 2MG/ML INJ IV PRN ×4 (05:53→21:13)
[2017-09-01] MEDS ORDERED: MEROPENEM 1GRAM 1 GM in SODIUM CHLORIDE 0.9% 100 ML 100 ML IV SCH (06:00)
[2017-09-01] MEDS: PROPRANOLOL HCL 40 MG TAB PO SCH ×3 (06:00→17:03)
[2017-09-01] MEDS: INSULIN REGULAR, HUMAN 100 UNIT/1 ML 3ML VIAL SQ SCH ×4 (08:59→21:15)
[2017-09-01 11:56] LABS: ALANINE AMINOTRANSFERASE 34 IU/L (0-55); ALBUMIN 2.5 g/dL (3.5-5.0); ALBUMIN/GLOBULIN RATIO 0.5 (0.8-2.0); ALKALINE PHOSPHATASE 211 IU/L (40-150); ANION GAP 12.1 mmol/L (8-16); BLOOD UREA NITROGEN 11 mg/dL (7-26); BUN/CREATININE RATIO 21 (6-25); CALCIUM 8.3 mg/dL (8.4-10.2); CARBON DIOXIDE 19 mmol/L (22-29); CHLORIDE 111 mmol/L (98-107); CREATININE, SERUM 0.53 mg/dL (0.57-1.11); EST GLOMERULAR FILTRATION RATE > 60 ML/MIN (60-); GLUCOSE 189 mg/dL (74-118); POTASSIUM 3.1 mmol/L (3.5-5.1); SODIUM 139 mmol/L (136-145)
[2017-09-01 12:04] LABS: EOSINOPHILS % 0.3 % (0.0-6.0); HEMATOCRIT 25.3 % (34.2-44.1); LYMPHOCYTES # (AUTO) 0.7 (1.0-3.2); LYMPHOCYTES % 19.4 % (18.0-39.1); MEAN CORPUSCULAR HEMOGLOBIN 21.1 pg (28-32); MEAN CORPUSCULAR VOLUME 70.1 fL (81-99); MONOCYTES # (AUTO) 0.2 (0.2-0.8); NEUTROPHILS # (AUTO) 2.8 (2.1-6.9); NEUTROPHILS % 75.8 % (38.7-80.0); PLATELET COUNT 347 x10e3/uL (140-360); RED BLOOD COUNT 3.61 x10e6/uL (3.6-5.1); RED CELL DISTRIBUTION WIDTH 19.7 % (11.7-14.4)
[2017-09-01 12:07] LABS: HEMOGLOBIN 7.6 g/dL (12.0-16.0)
[2017-09-01] MEDS: MEROPENEM 1 GM VIAL IV SCH ×2 (13:02→22:32)
[2017-09-01 13:57] LABS: % IRON SATURATION 5 % (15-50); AMYLASE 54 U/L (25-125); IRON 17 ug/dL (50-170); LIPASE 45 U/L (8-78); TOTAL IRON BINDING CAPACITY 312 ug/dL (261-478); TRANSFERRIN 223 mg/dL (180-382)
[2017-09-01] MEDS ORDERED: POTASSIUM CHLORIDE 20 MEQ TAB CR PO ONE (14:30)
--- NOTE | 2017-09-01 16:21 | History and Physical ---
CLINICAL HISTORY: This is a 42-year-old Latin-Maced[place] woman admitted via the emergency room because she is urinating fat and having severe left flank pains with fever up to 101 degrees unresolved with outpatient therapy. According to the patient, she has a left ovarian mass, which is obstructing the left ureter. On 08/16/17, she underwent left ureteral stent, initially it worked, but failed and she had a second stent placed and she was feeling better, but started having pain again on 08/18/17. Went back to see Dr. Pringle on 08/26/17. Had urinalysis and told she will be fine, was treated with pain medications including Tylenol, but failed to improve, decided to come to the emergency room after she developed fever of 101 degrees the day before. Workup in the emergency room included a temperature of 100.1 degrees and white count 7300. She is being admitted for further evaluation and treatment. PAST MEDICAL HISTORY: Remarkable for diabetes, hypertension, and hyperthyroidism. MEDICATIONS: At home included; Levemir insulin 30 units h.s., regular insulin with each meal, methimazole 50 mg t.i.d., metoprolol 50 mg b.i.d., and tramadol 50 mg p.o. daily p.r.n. PERSONAL AND SOCIAL HISTORY: Denies smoking and drinking. FAMILY HISTORY: Father was murdered. Mother had diabetes. PAST SURGERY: Tubal ligation and ovarian mass. VARITYPE OPERATOR: Dr. Leo Basilio. REVIEW OF SYSTEMS: Noncontributory. PHYSICAL EXAMINATION GENERAL: She is thin, alert, and coherent. VITAL SIGNS: Stable. CARDIOVASCULAR: Jugular veins are not distended. S1 and S2 were regular. Somewhat tachycardia. LUNGS: Clear. ABDOMEN: Soft. Bowel sounds present. EXTREMITIES: No cyanosis, clubbing, or edema. LABORATORY STUDIES: The CT scan of the abdomen showed left ureteral stent, left hydroureter, and hydronephrosis. IMPRESSION 1. Severe left flank pain with the patient complaining that she is urinating fat with CT scan showing left hydroureter, consider stent failure. 2. Urinary tract infection, status post ureteral stent. 3. Left ovarian mass, possible cancer. 4. Hyperthyroidism. 5. Insulin-dependent diabetes. 6. Hypertension. RECOMMENDATIONS: Dr. Pringle consultation, Dr. Leo Basilio consultation, and infectious disease consultation. Antibiotics and pain medications. Consider further urologic procedure to correct the fever and hydronephrosis. Job#: [id number] PAT cc:MD Govind Stover MD Fernando Ocon, MD Maurice E. Akuchie, MD
[2017-09-01] MEDS: METOPROLOL TARTRATE 50 MG TAB PO SCH (16:28)
[2017-09-01] MEDS ORDERED: INSULIN LISPRO 100 UNIT/1 ML 3ML VIAL SQ SCH (16:30)
[2017-09-01] MEDS: INSULIN LISPRO 100 UNIT/1 ML 3ML VIAL SQ SCH (16:46)
[2017-09-01] MEDS ORDERED: INSULIN DETEMIR 100 UNIT/ML PEN SQ SCH (21:00)
[2017-09-02] VITALS (7 sets, daily range): BP systolic 123–146; BP diastolic 60–88
[2017-09-02] MEDS: SODIUM CHLORIDE 0.9% 1000ML 1,000 ML IV SCH ×5 (00:12→21:08)
[2017-09-02] MEDS: PROPRANOLOL HCL 40 MG TAB PO SCH ×2 (00:30→05:51)
[2017-09-02] MEDS: HYDROMORPHONE 2MG/ML INJ IV PRN ×5 (02:03→20:14)
[2017-09-02] MEDS: MEROPENEM 1 GM VIAL IV SCH ×3 (05:50→21:07)
[2017-09-02] MEDS: HYDROCORTISONE SOD SUCCINATE 100 MG VIAL IV SCH ×3 (05:50→21:08)
[2017-09-02 06:26] LABS: BASOPHILS % 0.1 % (0.0-1.0); HEMATOCRIT 27.7 % (34.2-44.1); HEMOGLOBIN 8.1 g/dL (12.0-16.0); LYMPHOCYTES # (AUTO) 1.5 (1.0-3.2); LYMPHOCYTES % 17.7 % (18.0-39.1); MEAN CORPUSCULAR HGB CONC 29.2 g/dL (31-35); MEAN CORPUSCULAR VOLUME 71.9 fL (81-99); MONOCYTES # (AUTO) 0.8 (0.2-0.8); MONOCYTES % 9.9 % (4.4-11.3); NEUTROPHILS # (AUTO) 6.1 (2.1-6.9); NEUTROPHILS % 71.9 % (38.7-80.0); PLATELET COUNT 390 x10e3/uL (140-360); RED BLOOD COUNT 3.85 x10e6/uL (3.6-5.1); RED CELL DISTRIBUTION WIDTH 19.9 % (11.7-14.4)
[2017-09-02 06:42] LABS: BLOOD UREA NITROGEN 15 mg/dL (7-26); BUN/CREATININE RATIO 29 (6-25); CALCIUM 8.3 mg/dL (8.4-10.2); CARBON DIOXIDE 22 mmol/L (22-29); CHLORIDE 112 mmol/L (98-107); CREATININE, SERUM 0.52 mg/dL (0.57-1.11); EST GLOMERULAR FILTRATION RATE > 60 ML/MIN (60-); GLUCOSE 214 mg/dL (74-118); SODIUM 141 mmol/L (136-145)
[2017-09-02] MEDS: INSULIN REGULAR, HUMAN 100 UNIT/1 ML 3ML VIAL SQ SCH ×4 (08:00→21:00)
[2017-09-02] MEDS: INSULIN LISPRO 100 UNIT/1 ML 3ML VIAL SQ SCH ×3 (08:00→17:00)
[2017-09-02] MEDS: METOPROLOL TARTRATE 50 MG TAB PO SCH ×2 (08:28→17:43)
[2017-09-02] MEDS: METHIMAZOLE 5 MG TAB PO SCH ×3 (08:28→20:14)
[2017-09-02] MEDS: TRAMADOL HCL 50 MG TAB PO SCH (08:33)
[2017-09-02] MEDS ORDERED: OYST-CAL-D 500MG TABLET PO NR (10:00)
[2017-09-02 11:01] LABS: FREE THYROXINE INDEX 8.6568036 (1.4-3.8)
[2017-09-02 12:05] LABS: THYROID STIMULATING HORMONE 0.001 uIU/mL (0.350-4.940)
[2017-09-02] MEDS: FERROUS SULFATE 325 MG TAB PO SCH (13:09)
--- NOTE | 2017-09-02 14:18 | Consultation ---
DATE OF CONSULTATION: September 02, 2017 ATTENDING PHYSICIAN: Dr. Jose Alejandro Werner. REASON FOR CONSULTATION: Urinary tract infection/pyelonephritis. Thank you, Dr. Werner, for asking me to see this patient. HISTORY OF PRESENT ILLNESS: The patient is a 41-year-old woman, referred for urinary tract infection/pyelonephritis. She returned to the emergency department with "bladder pain," which later progressed to "my kidney." The patient had left ureteral stent exchange several days earlier. Outpatient appointment was for 3 months later and the patient could not be seen earlier, so she came to the emergency department. At triage, she was noted to have temperature of 100.1 degrees Fahrenheit. Initial laboratory studies show blood leukocyte cell count of [address] scan of the abdomen and pelvis showed left ureteral stent in place, as well as left hydroureter and hydronephrosis. The patient has uterine mass obstructing left ureter. She now states that the gynecologic oncologist's appointment is for end august. PAST MEDICAL HISTORY: Diabetes mellitus type 2, hyperthyroidism, nephrolithiasis, and multinodular goiter. PAST SURGICAL HISTORY: (?) Cholecystectomy, tubal ligation, and ureteral stent placement. ALLERGIES: CIPROFLOXACIN AND CEPHALEXIN, WHICH CAUSED RED RASH, WELL NSAIDS. MEDICATIONS: The current antibiotic is meropenem 1 gram IV piggyback q.8 hours. IMMUNIZATIONS: The patient declined influenza vaccination when offered. FAMILY HISTORY: Significant for diabetes mellitus type 2 in the mother. The father was murdered at age 32. SOCIAL HISTORY: She quit smoking cigarettes in 2013. She denies alcohol use. REVIEW OF SYSTEMS: As per history of present illness. PHYSICAL EXAMINATION GENERAL: No acute distress. VITAL SIGNS: T-max 98.6, pulse 110, respiratory rate 18, blood pressure 132/73. Weight 123 pounds. HEENT: Normocephalic. There is no icterus or injection of conjunctivae. There is no ear or nasal discharge. Moist oral mucosa. No pharyngeal erythema or exudate. NECK: Supple. No lymphadenopathy. Goiter. LUNGS: Good air entry bilaterally. HEART: Normal S1 and S2. Tachycardic. ABDOMEN: Soft. EXTREMITIES: There is no edema, clubbing or cyanosis. TROLLEY CAR OVERHAULER: Awake, alert and oriented to person, place and time. There is normal sensation of the feet on monofilament examination. Also, there is normal vibration sensation. Nonfocal. LABORATORY AND DIAGNOSTICS: WBC 8490, hemoglobin 8.1, platelet 390,000, neutrophil 71.1, lymph 17.7, mono 9.9, eosinophil 0.2, basophil 0.1. BUN 15, creatinine 0.52. Blood culture showed no growth so far. Urine culture also no growth. IMPRESSION 1. (?) Pyelonephritis, present on admission. 2. Uterine mass. 3. Diabetes mellitus type 2, uncontrolled. 4. Hyperthyroidism. 5. Goiter. PLAN 1. Await final urine culture results. 2. If urine culture is negative, the patient may be discharged on nitrofurantoin. 3. Again, the patient was advised to keep appointment with gynecologic oncologist. 4. Patient still declines influenza vaccine. Job#: [id number] GERALD
--- NOTE | 2017-09-02 16:08 | Discharge Summary ---
CLINICAL HISTORY: This is a 42-year-old Hardik Italian woman with history of ovarian cancer causing obstruction of the left ureter status post stenting of the left ureter admitted via the emergency room because of worsening chest pains, fever and urinary tract infection. Additionally, hydronephrosis in the left ureter. Please refer to my previous dictation concerning details of current illness, past medical history, personal/social history, family history, review of systems, physical examination and initial laboratory studies. HOSPITAL COURSE: The patient was found to be severely anemic with hemoglobin of 7.6, gradually coming up to 8.1 spontaneously. She was severely iron deficient. Additionally, she is tachycardic part of which is due to hyperthyroidism followed by Dr. Gagan Walker. Calcium was slightly low. PTH is pending. Free T3, T4 are pending. The patient is already on metoprolol 50 mg b.i.d. Heart rate at rest runs in the range of 105 beats per minute. Urine cultures were sent and infectious disease consultation was obtained with Dr. Johan Mcclure. Dr. Thompson was consulted concerning the . Discussed with Dr. Thompson, who does not plan to remove the ureteral stent and feeling that the patient should have resection of the ovarian tumor and at the same time resect the ureteral stent. He felt the patient needed to be treated with antibiotic and be discharged and followed on an outpatient basis. Accordingly once her fever subsided and her symptoms improved, we will discharge her on her previous medications which included Tylenol No. 3, 1-2 tablet p.o. q.4 hours p.r.n. as well as her previous medications including metoprolol 50 mg b.i.d., methimazole 15 mg t.i.d., Lantus insulin 60 units nightly and Humalog insulin 15 units t.i.d. with meals. Tramadol 50 mg p.o. daily. She will follow with Dr. Phillip Murray, (FITNESS SERVICES MANAGER) as well as Dr. Thompson and second fertilizer loader she had chosen was [facility] for ovarian tumor resection. DISCHARGE DIAGNOSES: 1. Left hydronephrosis, status post left ureteral stent with pyelonephritis and urinary tract infection. 2. Ovarian mass, possibly cancer, obstructing the left ureter requiring the above-mentioned ureteral stent. 3. Hyperthyroidism on methimazole with resting tachycardia. Heart rate is 105 beats per minute. 4. Insulin dependent diabetes. 5. Severe anemia with hemoglobin 7.6 but stable and at discharge 8.1, severely iron deficient. 6. Hypocalcemia. 7. Hypertension. This patient's discharge antibiotics were prescribed by Dr. Johan Mcclure. The patient has been instructed to receive intravenous iron should the oral iron fail to resolve her iron deficiency. AFSANEH CHAMBERLAIN MD Job#: [id number] cc:JANETH THOMPSON MD cc:PHILLIP MURRAY MD cc:GAGAN WALKER MD
[2017-09-02] MEDS ORDERED: INSULIN DETEMIR 100 UNIT/ML PEN SQ SCH (21:00)
[2017-09-03] VITALS: BP 129/59
[2017-09-03] MEDS: HYDROMORPHONE 2MG/ML INJ IV PRN ×4 (00:15→13:19)
[2017-09-03 02:38] VITALS: BP 139/66
[2017-09-03 04:00] VITALS: BP 120/59
[2017-09-03] MEDS: SODIUM CHLORIDE 0.9% 1000ML 1,000 ML IV SCH ×2 (04:15→12:25)
[2017-09-03] MEDS: MEROPENEM 1 GM VIAL IV SCH ×2 (05:03→14:00)
[2017-09-03] MEDS: HYDROCORTISONE SOD SUCCINATE 100 MG VIAL IV SCH ×2 (05:03→14:00)
[2017-09-03 07:30] VITALS: BP 120/59
[2017-09-03] MEDS: INSULIN REGULAR, HUMAN 100 UNIT/1 ML 3ML VIAL SQ SCH ×2 (07:30→11:30)
[2017-09-03] MEDS: INSULIN LISPRO 100 UNIT/1 ML 3ML VIAL SQ SCH ×2 (08:00→12:00)
[2017-09-03 08:29] VITALS: BP 134/64
[2017-09-03] MEDS: METOPROLOL TARTRATE 50 MG TAB PO SCH (08:42)
[2017-09-03] MEDS: METHIMAZOLE 5 MG TAB PO SCH ×2 (08:42→15:03)
[2017-09-03] MEDS: FERROUS SULFATE 325 MG TAB PO SCH (08:42)
[2017-09-03] MEDS: TRAMADOL HCL 50 MG TAB PO SCH (08:42)
[2017-09-03] MEDS ORDERED: NITROFURANTOIN100 MG PO ×2 (09:41→10:44)
[2017-09-03] MEDS ORDERED: FERROUS SULFAT325 MG PO (10:44)
[2017-09-03] MEDS ORDERED: PROPRANOLOL HCL40 MG PO (10:44)
[2017-09-03] MEDS ORDERED: TYLENOL WITH C1 EACH PO (10:45)
[2017-09-03] MEDS ORDERED: PROPRANOLOL HCL 60 MG ER CAP PO ONE (11:15)
[2017-09-03] MEDS ORDERED: OYST-CAL-D 500MG TABLET PO ONE (11:15)
[2017-09-03 12:34] VITALS: BP 115/59
[2017-09-03] MEDS ORDERED: PROPRANOLOL HCL 60 MG ER CAP PO SCH (14:00)
== END 2017-09-03 15:45 | disposition home or self-care (01) ==
LOC: ER 16:04 → ERHOLD 09-01 00:21 → IMCU 09-01 03:54
PROVIDERS: ADMIT Internal Medicine Cardiovascular Disease; ATTEND Internal Medicine Cardiovascular Disease
DX: T83.593A Infection and inflammatory reaction due to other urinary stents, initial encounter (principal); N13.6 Pyonephrosis; T83.192A Other mechanical complication of indwelling ureteral stent, initial encounter; E11.65 Type 2 diabetes mellitus with hyperglycemia; Z79.4 Long term (current) use of insulin; I10 Essential (primary) hypertension; E05.90 Thyrotoxicosis, unspecified without thyrotoxic crisis or storm; N83.9 Noninflammatory disorder of ovary, fallopian tube and broad ligament, unspecified; D50.9 Iron deficiency anemia, unspecified; R19.00 Intra-abdominal and pelvic swelling, mass and lump, unspecified site; E83.51 Hypocalcemia
CPT/HCPCS: 36415 ×4; 74176; 80048; 80053 ×2; 81001; 82150; 82550; 82553; 82948 ×3; 83540; 83605; 83690; 84436; 84439; 84443 ×2; 84466; 84479; 84481; 84484; 84702; 85025 ×3; 87040; 87086; 93005 ×2; 99284; G0378 ×3; J1170 ×3; J1720 ×3; J1800; J2185 ×4; J2405; J7030 ×4

== ENCOUNTER 2017-10-18 20:11 | Emergency (ER) | payer OTHER ==
[~2017-10-18] VITALS: Ht 154.9 cm; Wt 59.9 kg
[~2017-10-18 20:11] MED LIST changes: +FERROUS SULFAT325 MG PO; +NITROFURANTOIN100 MG PO
--- OUTSIDE RECORDS SUMMARY | 2017-10-18 20:14 | XMS REPORT | Continuity of Care Document ---
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 No 09/01/17 4:59am If yes, is advance directive on file with [facility]? No 09/01/17 4:59am If not on file with [facility] will patient provide a copy? No 09/01/17 4:59am Do you have a Directive to Physician? No 08/31/17 6:56pm Do you have a Medical Power of Manager Payroll? No 08/31/17 6:56pm Do you have an out of hospital Do Not Resuscitate Order? No 08/31/17 6:56pm Do you have any special needs we should be aware of? No 08/31/17 6:56pm Do you have a support person here with you today? Yes 08/31/17 6:56pm Did patient receive Notice of Privacy Practices? Yes 08/31/17 6:56pm Did patient receive patient rights and responsibilities? Yes 08/31/17 6:56pm Problems Medical Problem Onset Date Status DKA (diabetic ketoacidoses) Unknown Hyperthyroidism Unknown Pain due to ureteral stent Unknown Pyelonephritis Unknown UTI (urinary tract infection) Unknown Medications Current Home Medications Medication Dose Units Route Directions Days Qty Instructions Start Date Acetaminophen With Codeine (Tylenol With Codeine #3 Tablet) 1 Each Tablet 300 Mg Oral Every 4 Hours as needed for Pain 60 Tab 09/03/17 Ferrous Sulfate 325 Mg Tablet 325 Mg Oral Daily 90 Days 09/03/17 Insulin Aspart (Novolog) 100 Unit/1 Ml Cartridge 15 Sub-Q Three Times Daily With Meals Insulin Detemir 100 Unit/Ml Pen 30 Unit Sub-Q Bedtime 90 Days 08/03 Methimazole 5 Mg Tablet 15 Mg Oral Three Times A Day 90 Days Nitrofurantoin Macrocrystal (Nitrofurantoin) 100 Mg Capsule 100 Mg Oral Twice A Day 14 Days 09/03/17 Nitrofurantoin Macrocrystal (Nitrofurantoin) 100 Mg Capsule 100 Mg Oral Twice A Day 90 Days 09/03/17 Propranolol Hcl 40 Mg Tablet 60 Mg Oral Every 8 Hours 90 Days 60 Tab 09/03/17 Tramadol Hcl (Ultram 50MG*) 50 Mg Tab 50 Mg Oral Daily 60 Days 01/13 Past Home Medications Medication Directions Ordered Status Acetaminophen With Codeine (Tylenol With Codeine #3 Tablet) 1 Each Tablet, 300 Mg Oral Every 6 Hours as needed for Pain 06/04/16 Discontinued Ferrous Sulfate (Feosol) 325 Mg Tablet, 325 Mg Oral Daily 08/03/17 Discontinued Ferrous Sulfate (Feosol) 325 Mg Tablet, 325 Mg Oral Twice Daily With Meals Discontinued Insulin Aspart (Novolog) 100 Units/1 Ml Inj, Discontinued Insulin Detemir 100 Unit/Ml Pen, 10 Unit Sub-Q Bedtime 06/04/16 Discontinued Insulin Glargine (Lantus 3ML Pen) 100 Units/1 Ml Inj, 8 Units Subcutaneously Bedtime Discontinued Meclizine Hcl 12.5 Mg Tablet, 25 Mg Oral Daily Discontinued Methimazole 10 Mg Tablet, 25 Mg Oral Daily Discontinued Methimazole 10 Mg Tablet, 10 Mg Oral Three Times A Day Discontinued Methimazole 5 Mg Tablet, 10 Mg Oral Every 8 Hours 06/04/16 Discontinued Methimazole 10 Mg Tablet, 10 Mg Oral Daily Discontinued Metoprolol Succinate 25 Mg Tab.er.24h, 25 Mg Oral Discontinued Metoprolol Succinate 25 Mg Tab.er.24h, 25 Mg Oral Daily Discontinued Metoprolol Succinate (Toprol Xl) 50 Mg Tab.er.24h, 50 Mg Oral Twice A Day 02/10 Discontinued Metoprolol Tartrate (Lopressor) 25 Mg Tab, 50 Mg Oral Twice A Day 08/03/17 Discontinued Metoprolol Tartrate 25 Mg Tablet, 25 Mg Oral Daily Discontinued Pantoprazole Sodium (Protonix) 40 Mg Tablet.dr, 40 Mg Oral Daily Discontinued Potassium Chloride (K Dur*) 10 Meq Tabcr, 10 Meq Oral Daily 06/04/16 Discontinued Propranolol Hcl 40 Mg Tablet, 40 Mg Oral Every 8 Hours Discontinued Social History Social History Problem Response Recorded Date/Time Onset Date Status Hx Psychiatric Problems No 09/01/2017 4:59am Not Applicable Not Applicable Hx Eating Disorder No 09/01/2017 4:59am Not Applicable Not Applicable Hx Substance Use Disorder No 09/01/2017 4:59am Not Applicable Not Applicable Hx Depression No 09/01/2017 4:59am Not Applicable Not Applicable Hx Alcohol Use Y - SOCIALLY DRINKS 09/01/2017 4:59am Not Applicable Not Applicable Hx Substance Use Treatment No 09/01/2017 4:59am Not Applicable Not Applicable Hx Physical Abuse No 09/01/2017 4:59am Not Applicable Not Applicable Smoking Status Start Date Stop Date Unknown if ever smoked Hospital Discharge Instructions No hospital discharge instruction information available. Plan of Care Discharge Date 09/03/17 3:45pm Disposition HOME, SELF-CARE Instructions/Education Provided Hyperthyroidism Prescriptions See Medication Section Referrals PHILLIP XAVIER MD (Internal Medicine) Order Date: 5-7 Days Entered Date: 09/03/2017 10:47am Address: [address] [place] [id number] GAGAN AKERS MD (Endocrinology) Order Date: 3 Days Entered Date: 09/03/2017 10:47am Address: [address] [place], [place] [id number] JANETH THOMPSON MD (Urology) Order Date: 5-7 Days Entered Date: 09/03/2017 10:47am Address: [address] [place] [address] Functional Status Query Response Date Recorded Assistive Devices None September 01, 2017 4:54am Ambulation Ability Independent September 01, 2017 4:54am Toileting Ability Independent September 02, 2017 10:12am Allergies, Adverse Reactions, Alerts Allergen Type Severity Reaction Status Last Updated NSAIDS (Non-Steroidal Anti-Inflamma Allergy Unknown Hives Active 08/31/17 Cephalexin Allergy Intermediate HIVES Active 08/31/17 Ciprofloxacin Allergy Unknown Hives Active 08/31/17 Immunizations No immunization information available. Vital Signs Acute Vital Signs Vital Response Date/Time Temperature (Fahrenheit) 96.7 degrees F (97.6 - 99.5) 09/03/2017 12:34pm Pulse Pulse Rate (adult) 95 bpm (60 - 90) 09/03/2017 12:34pm Respiratory Rate 18 bpm (12 - 24) 09/03/2017 12:34pm Blood Pressure 115/59 mm Hg 09/03/2017 12:34pm Height 5 ft 1 in 08/31/2017 4:50pm Weight 132.02 lb 09/03/2017 8:30am Body Mass Index 24.9 kg/m^2 09/03/2017 8:30am Results Laboratory Results Test Name Result Units Flags Reference Collection Date/Time Result Date/ Time Comments Activated Partial Thromboplast Time 34.3 seconds 23.8-35.5 12/26/2016 6: 22pm 12/26/2016 8:50pm Arterial Blood pH 7.38 7.31-7.41 12/26/2016 8:50pm 12/26/2016 9:03pm Arterial Blood Partial Pressure CO2 39 mmHg L 41-51 12/26/2016 8:50pm 9:03pm Arterial Blood Partial Pressure O2 80 mmHg 80-105 12/26/2016 8:50pm 9:03pm Arterial Blood HCO3 23 mmol/L 23-28 12/26/2016 8:50pm 12/26/2016 9: 03pm Arterial Blood Base Excess -2.0 mmol/L -2 - 3 12/26/2016 8:50pm 2016 9:03pm Arterial Blood Oxygen Saturation 95.0 % 95-98 12/26/2016 8:50pm 2016 9:03pm Ethyl Alcohol Level < 10.0 mg/dL 0.0-10.0 04/11/2017 12:03am 2016 12:52am Differential Total Cells Counted 100 07/31/2017 5:35pm 07/31/2017 8 :48pm Neutrophils % (Manual) 54 % 40-74 07/31/2017 5:35pm 07/31/2017 8:48pm Lymphocytes % (Manual) 34 % 19-48 07/31/2017 5:35pm 07/31/2017 8:48pm Monocytes % (Manual) 11 % H 3.4-9.0 07/31/2017 5:35pm 07/31/2017 8:48pm Basophils % (Manual) 1 % 0-1.5 07/31/2017 5:35pm 07/31/2017 8:48pm Platelet Estimate ADEQUATE 07/31/2017 5:35pm 07/31/2017 8:48pm Platelet Morphology Comment FEW LARGE 07/31/2017 5:35pm 07/31/2017 8:48pm Poikilocytosis SLIGHT 07/31/2017 5:35pm 07/31/2017 8:48pm Anisocytosis SLIGHT 07/31/2017 5:35pm 07/31/2017 8:48pm Red Cell Morphology Comment NORMAL 07/31/2017 5:35pm 07/31/2017 8: 48pm Prothrombin Time 13.4 seconds 11.9-14.5 08/03/2017 7:22am 08/03/2017 8: 18am Prothromb Time International Ratio 0.97 08/03/2017 7:22am 2017 8:18am Oral Anticoagulant Therapy INR Values: 1. Low Intensity Therapy 1.5 - 2.0 2. Moderate Intensity Therapy 2.0 - 3.0 3. High Intensity Therapy(1) 2.5 - 3.5 4. High Intensity Therapy(2) 3.0 - 4.0 5. Panic Value INR > 5.0 Urine Opiates Screen NEGATIVE NEGATIVE 07/31/2017 4:03pm 07/31/2017 5 :46pm Urine Barbiturates Screen NEGATIVE NEGATIVE 07/31/2017 4:03pm 2017 5:46pm Urine Phencyclidine Screen NEGATIVE NEGATIVE 07/31/2017 4:03pm 2017 5:46pm Urine Amphetamines Screen NEGATIVE NEGATIVE 07/31/2017 4:03pm 2017 5:46pm Urine Benzodiazepines Screen POSITIVE H NEGATIVE 07/31/2017 4:03pm 09/2017 5:46pm This test provides only a screen. Positive results should be repeated by a confirmatory test. Urine Cocaine Screen NEGATIVE NEGATIVE 07/31/2017 4:03pm 07/31/2017 5 :46pm Urine Cannabinoids Screen NEGATIVE NEGATIVE 07/31/2017 4:03pm 2017 5:46pm THESE RESULTS ARE FOR MEDICAL TREATMENT ONLY *THIS REPORT CONTAINS UNCONFIRMED SCREENING RESULTS* POSITIVE RESULTS WILL BE CONFIRMED BY REFERENCE LAB UPON REQUEST CUT-OFF DRUG CLASS CONCENTRATION ng/mL Amphetamines 1000 Methamphetamines 1000 Cocaine 300 Opiate 300 Phencyclidine 25 Cannabinoid 50 Barbiturates 300 Benzodiazepine 300 Methadone 300 Hemoglobin A1c Percent 9.8 % H 4.0-7.0 08/01/2017 6:00am 08/01/2017 3: 01pm Phosphorus Level 2.8 MG/DL 2.3-4.7 08/01/2017 6:00am 08/01/2017 7:31am Magnesium Level 1.5 MG/DL 1.3-2.1 08/01/2017 6:00am 08/01/2017 7:31am Thyroid Peroxidase Antibodies 155 IU/mL H 0-34 08/01/2017 6:00am 2017 5:37am Stool Occult Blood NEGATIVE NEGATIVE 08/01/2017 4:00pm 08/01/2017 4: 47pm Urine Test NEGATIVE NEGATIVE 08/16/2017 10:22am 08/16/2017 10:44am White Blood Count 8.49 x10e3/uL # 4.8-10.8 09/02/2017 6:05am 09/02/2017 6 :33am Red Blood Count 3.85 x10e6/uL 3.6-5.1 09/02/2017 6:05am 09/02/2017 6: 33am Hemoglobin 8.1 g/dL L 12.0-16.0 09/02/2017 6:0509/02/2017 6:33am Hematocrit 27.7 % L 34.2-44.1 09/02/2017 6:0509/02/2017 6:33am Mean Corpuscular Volume 71.9 fL L 81-99 09/02/2017 6:0509/02/2017 6: 33am Mean Corpuscular Hemoglobin 21.0 pg L 28-32 09/02/2017 6:052017 6:33am Mean Corpuscular Hemoglobin Concent 29.2 g/dL L 31-35 09/02/2017 6:0509/02/2017 6:33am Red Cell Distribution Width 19.9 % H 11.7-14.4 09/02/2017 6:052017 6:33am Platelet Count 390 x10e3/uL H 140-360 09/02/2017 6:0509/02/2017 6: 33am Neutrophils (%) (Auto) 71.9 % 38.7-80.0 09/02/2017 6:0509/02/2017 6: 33am Lymphocytes (%) (Auto) 17.7 % L 18.0-39.1 09/02/2017 6:0509/02/2017 6 :33am Monocytes (%) (Auto) 9.9 % 4.4-11.3 09/02/2017 6:05am 09/02/2017 6: 33am Eosinophils (%) (Auto) 0.0 % 0.0-6.0 09/02/2017 6:0509/02/2017 6: 33am Basophils (%) (Auto) 0.1 % 0.0-1.0 09/02/2017 6:0509/02/2017 6:33am IM GRANULOCYTES % 0.4 % 0.0-1.0 09/02/2017 6:0509/02/2017 6:33am Neutrophils # (Auto) 6.1 2.1-6.9 09/02/2017 6:05am 09/02/2017 6:33am Lymphocytes # (Auto) 1.5 1.0-3.2 09/02/2017 6:05am 09/02/2017 6:33am Monocytes # (Auto) 0.8 0.2-0.8 09/02/2017 6:05am 09/02/2017 6:33am Eosinophils # (Auto) 0.0 0.0-0.4 09/02/2017 6:05am 09/02/2017 6:33am Basophils # (Auto) 0.0 0.0-0.1 09/02/2017 6:05am 09/02/2017 6:33am Absolute Immature Granulocyte (auto 0.03 x10e3/uL 0-0.1 09/02/2017 6: 05am 09/02/2017 6:33am Urine Color YELLOW YELLOW 08/31/2017 4:42pm 08/31/2017 5:36pm Urine Clarity HAZY CLEAR 08/31/2017 4:42pm 08/31/2017 5:36pm Urine Specific [place] 1.010 1.010-1.025 08/31/2017 4:42pm 2017 5:36pm Urine pH 6 5 - 7 08/31/2017 4:42pm 08/31/2017 5:36pm Urine Leukocyte Esterase 2+ H NEGATIVE 08/31/2017 4:42pm 08/31/2017 5: 36pm Urine Nitrite NEGATIVE NEGATIVE 08/31/2017 4:42pm 08/31/2017 5:36pm Urine Protein 2+ H NEGATIVE 08/31/2017 4:42pm 08/31/2017 5:36pm Urine Glucose (UA) NEGATIVE NEGATIVE 08/31/2017 4:42pm 08/31/2017 5: 36pm Urine Ketones NEGATIVE NEGATIVE 08/31/2017 4:42pm 08/31/2017 5:36pm Urine Urobilinogen 0.2 mg/dL 0.2 - 1 08/31/2017 4:42pm 08/31/2017 5: 36pm Urine Bilirubin NEGATIVE NEGATIVE 08/31/2017 4:42pm 08/31/2017 5: 36pm Urine Blood 4+ H NEGATIVE 08/31/2017 4:42pm 08/31/2017 5:36pm Urine WBC >50 /HPF H 0-5 08/31/2017 4:42pm 08/31/2017 5:45pm Urine RBC 21-50 /HPF H 0-5 08/31/2017 4:42pm 08/31/2017 5:45pm Urine Bacteria MODERATE /HPF H NONE 08/31/2017 4:42pm 08/31/2017 5:45pm Urine Epithelial Cells FEW /LPF NONE 08/31/2017 4:42pm 08/31/2017 5: 45pm Urine Fine Granular Casts 1-5 H 0 08/31/2017 4:42pm 08/31/2017 5:45pm Urine Mucus MODERATE H RARE 08/31/2017 4:42pm 08/31/2017 5:45pm Urine Yeast FEW H NONE 08/31/2017 4:42pm 08/31/2017 5:45pm Sodium Level 141 mmol/L 136-145 09/02/2017 6:05am 09/02/2017 6:43am Potassium Level 4.0 mmol/L # 3.5-5.1 09/02/2017 6:05am 09/02/2017 6:43am Chloride Level 112 mmol/L H 98-107 09/02/2017 6:05am 09/02/2017 6:43am Carbon Dioxide Level 22 mmol/L 22-29 09/02/2017 6:05am 09/02/2017 6: 43am Anion Gap 11.0 mmol/L 8-16 09/02/2017 6:05am 09/02/2017 6:43am Blood Urea Nitrogen 15 mg/dL 7-26 09/02/2017 6:0509/02/2017 6:43am Creatinine 0.52 mg/dL L 0.57-1.11 09/02/2017 6:05am 09/02/2017 6:43am BUN/Creatinine Ratio 29 H 6-25 09/02/2017 6:0509/02/2017 6:43am Estimat Glomerular Filtration Rate > 60 ML/MIN 60- 09/02/2017 6:05 6:43am Ranges were taken from the National Kidney Disease Education Program and the National Kid[employer] Foundation literature. Reference ranges: 60 or greater: Normal 16-59 (for 3 consecutive months): Chronic kidney disease 15 or less: Kidney failure Glucose Level 214 mg/dL H 74-118 09/02/2017 6:05am 09/02/2017 6:43am Calcium Level 8.3 mg/dL L 8.4-10.2 09/02/2017 6:05am 09/02/2017 6:43am Bedside Glucose 88 mg/dL 70-120 09/03/2017 11:09/03/2017 12:09pm Meter ID: [id number] Lactic Acid Level 10.7 MG/DL 4.5-19.8 08/31/2017 11:20pm 08/31/2017 11: 54pm Iron Level 17 ug/dL L 50-170 09/01/2017 10:09/01/2017 2:02pm Total Iron Binding Capacity 312 ug/dL 261-478 09/01/2017 10:2017 2:02pm Percent Iron Saturation 5 % L 15-50 09/01/2017 10:09/01/2017 2: 02pm Transferrin 223 mg/dL 180-382 09/01/2017 10:09/01/2017 2:02pm Total Bilirubin 0.3 mg/dL 0.2-1.2 09/01/2017 10:09/01/2017 12: 01pm Aspartate Amino Transf (AST/SGOT) 56 IU/L H 5-34 09/01/2017 10:10/2017 12:01pm Alanine Aminotransferase (ALT/SGPT) 34 IU/L 0-55 09/01/2017 10:10/2017 12:01pm Total Protein 7.2 g/dL 6.5-8.1 09/01/2017 10:09/01/2017 12:01pm Albumin 2.5 g/dL L 3.5-5.0 09/01/2017 10:09/01/2017 12:01pm Globulin 4.7 g/dL H 2.3-3.5 09/01/2017 10:09/01/2017 12:01pm Albumin/Globulin Ratio 0.5 L 0.8-2.0 09/01/2017 10:09/01/2017 12: 01pm Alkaline Phosphatase 211 IU/L H 40-150 09/01/2017 10:09/01/2017 12: 01pm Creatine Kinase 28 IU/L L 29-168 08/31/2017 5:07pm 08/31/2017 5:59pm Creatine Kinase MB 1.20 ng/mL 0.00-5.00 08/31/2017 5:07pm 08/31/2017 5: 59pm Troponin I 0.014 ng/mL 0-0.300 08/31/2017 5:07pm 08/31/2017 5:59pm Amylase Level 54 U/L 25-125 09/01/2017 10:23am 09/01/2017 2:02pm Lipase 45 U/L 8-78 09/01/2017 10:23am 09/01/2017 2:02pm Free Thyroxine 4.73 ng/dL H 0.9-1.8 09/02/2017 9:45am 09/02/2017 10: 39am Free Thyroxine Index 8.3827484 H 1.4-3.8 09/02/2017 9:45am 09/02/2017 11:02am Thyroxine (T4) > 24.00 ug/dL H 4.5-10.9 09/02/2017 9:45am 09/02/2017 11: 02am Our current method for Total T4 is not recommended for use as the only marker for evaluating patients for thyroid disorders. Triiodothyronine (T3) Uptake 36.07 % 22.5-37.0 09/02/2017 9:45am 2017 11:02am Thyroid Stimulating Hormone (TSH) 0.001 uIU/mL L 0.350-4.940 09/02/2017 9 :45am 09/02/2017 12:10pm Human Chorionic Gonadotropin, Qual NEGATIVE NEGATIVE 08/31/2017 5: 07pm 08/31/2017 5:40pm Free Triiodothyronine 2.1 pg/mL 2.0-4.4 09/02/2017 10:00am 09/03/2017 9 :12am Performed at: - [address] [id number] Blade Balancer: Kana Hung MD, Phone: [phone] Microbiology Results Procedure Source Organism/Result Collection Date/Time Result Date/Time Result Status Urine Culture Urine,Clean Catch KENYETTA TROPICALIS 04/11/2017 12:03am 12:44pm Final Blood Culture Blood NO GROWTH AFTER 48 HOURS 11:20pm 09/02/2017 11:36pm Preliminary [address] [address] Patient Name: CHIKA BOJORQUEZ MR # :[id number] : 1975 Age/Sex: 41/F Admit Physician: AFSANEH CHAMBERLAIN MD Admit Date: 09/01/17 Location/Room/Bed: [place] [address] Discharge Date: Report: Discharge Summary CLINICAL HISTORY: This is a 42-year-old [place] woman with history of ovarian cancer causing obstruction of the left ureter status post stenting of the left ureter admitted via the emergency room because of worsening chest pains, fever and urinary tract infection. Additionally, hydronephrosis in the left ureter. Please refer to my previous dictation concerning details of current illness, past medical history, personal/social history, family history, review of systems, physical examination and initial laboratory studies. HOSPITAL COURSE: The patient was found to be severely anemic with hemoglobin of 7.6, gradually coming up to 8.1 spontaneously. She was severely iron deficient. Additionally, she is tachycardic part of which is due to hyperthyroidism followed by Dr. Gagan Akers. Calcium was slightly low. PTH is pending. Free T3, T4 are pending. The patient is already on metoprolol 50 mg b.i.d. Heart rate at rest runs in the range of 105 beats per minute. Urine cultures were sent and infectious disease consultation was obtained with Dr. Johan Mcclure. Dr. Thompson was consulted concerning the . Discussed with Dr. Thompson, who does not plan to remove the ureteral stent and feeling that the patient should have resection of the ovarian tumor and at the same time resect the ureteral stent. He felt the patient needed to be treated with antibiotic and be discharged and followed on an outpatient basis. Accordingly once her fever subsided and her symptoms improved, we will discharge her on her previous medications which included Tylenol No. 3, 1-2 tablet p.o. q.4 hours p.r.n. as well as her previous medications including metoprolol 50 mg b.i.d., methimazole 15 mg t.i.d., Lantus insulin 60 units nightly and Humalog insulin 15 units t.i.d. with meals. Tramadol 50 mg p.o. daily. She will follow with Dr. Phillip Xavier, (PROCESS SUPERVISOR) as well as Dr. Thompson and second elevator operator freight she had chosen was [facility] for ovarian tumor resection. DISCHARGE DIAGNOSES: 1. Left hydronephrosis, status post left ureteral stent with pyelonephritis and urinary tract infection. 2. Ovarian mass, possibly cancer, obstructing the left ureter requiring the above-mentioned ureteral stent. 3. Hyperthyroidism on methimazole with resting tachycardia. Heart rate is 105 beats per minute. 4. Insulin dependent diabetes. 5. Severe anemia with hemoglobin 7.6 but stable and at discharge 8.1, severely iron deficient. 6. Hypocalcemia. 7. Hypertension. This patient's discharge antibiotics were prescribed by Dr. Johan Mcclure. The patient has been instructed to receive intravenous iron should the oral iron fail to resolve her iron deficiency. 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 Encounters Encounter Location Arrival/Admit Date Discharge/Depart Date Attending Provider Discharged Inpatient (obs) [facility] 09/01/17 12:21am 3:45pm AFSANEH CHAMBERLAIN MD [facility] 08/16/17 10:55am JANETH THOMPSON MD Discharged [facility]patient [facility] 07/31/17 7:52pm 08/03/17 4:25pm AFSANEH CHAMBERLAIN MD Departed Emergency Room [facility] 04/10/17 11:49pm 04/11 1:59am MERRILL BECKETT MD Departed Emergency Room [facility] Patients [facility] 12/26/16 6:04pm 2:00am TEDDY FERNANDEZ MD
[2017-10-19] MEDS ORDERED: KETOROLAC TROMETHAMINE 30 MG/ML VIAL IV STA (01:53)
[2017-10-19] MEDS ORDERED: MORPHINE SULFATE 2 MG/ML SYR IV STA (02:44)
[2017-10-19 03:40] VITALS: BP 116/66
== END 2017-10-19 03:40 | disposition home or self-care (01) ==
LOC: FSED 20:11
DX: R10.84 Generalized abdominal pain (principal); N30.91 Cystitis, unspecified with hematuria; E05.90 Thyrotoxicosis, unspecified without thyrotoxic crisis or storm; I10 Essential (primary) hypertension
CPT/HCPCS: 80048; 81003; 81025; 85025; 99283; J1885

== ENCOUNTER 2017-10-23 20:50 | Emergency (ER) | payer OTHER ==
[~2017-10-23] VITALS: Ht 154.9 cm; Wt 59.9 kg
--- OUTSIDE RECORDS SUMMARY | 2017-10-23 20:53 | XMS REPORT | Continuity of Care Document ---
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 No 09/01/17 4:59am Do you have a Directive to Physician? No 10/18/17 9:28pm Do you have a Medical Power of Access Control Specialist? No 10/18/17 9:28pm Do you have an out of hospital Do Not Resuscitate Order? No 10/18/17 9:28pm Do you have any special needs we should be aware of? No 10/18/17 9:28pm Do you have a support person here with you today? Yes 10/18/17 9:28pm Did patient receive Notice of Privacy Practices? Yes 10/18/17 9:29pm Did patient receive patient rights and responsibilities? Yes 10/18/17 9:29pm Problems Medical Problem Onset Date Status DKA [...] Applicable Smoking Status Start Date Stop Date Never Smoker Hospital Discharge Instructions No hospital discharge instruction information available. 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 You may take the Tramadol 50mg - 1-2 every 4 hours, as needed for pain. You may take Extra Strength Tylenol 500 mg - 2 tabs every 4 hours, as needed, for pain Follow-up with Urology, regarding the blood in your urine. Functional Status No functional status information available. Allergies, Adverse Reactions, Alerts Allergen Type Severity Reaction Status Last Updated NSAIDS (Non-Steroidal Anti-Inflamma Allergy Unknown Hives Active 08/31/17 Cephalexin Allergy Intermediate HIVES Active 08/31/17 Ciprofloxacin Allergy Unknown Hives Active 08/31/17 Immunizations No immunization information available. Vital Signs Acute Vital Signs Vital Response Date/Time Temperature (Fahrenheit) 98.2 degrees F (97.6 - 99.5) 10/19/2017 3:40am Pulse Pulse Rate (adult) 97 bpm (60 - 90) 10/19/2017 3:40am Respiratory Rate 18 bpm (12 - 24) 10/19/2017 3:40am Blood Pressure 116/66 mm Hg 10/19/2017 3:40am Height 5 ft 1 in 10/18/2017 8:45pm Weight 132 lb 10/18/2017 8:45pm Body Mass Index 24.9 kg/m^2 10/18/2017 8:45pm Results Laboratory Results Test Name Result Units [...] 33am Hemoglobin 8.1 g/dL L 12.0-16.0 09/02/2017 6:05am 09/02/2017 6:33am Hematocrit 27.7 % L 34.2-44.1 09/02/2017 6:05am 09/02/2017 6:33am Mean Corpuscular Volume 71.9 fL L 81-99 09/02/2017 6:05am 09/02/2017 6: 33am Mean Corpuscular Hemoglobin 21.0 pg L 28-32 09/02/2017 6:05am 2017 6:33am Mean Corpuscular Hemoglobin Concent 29.2 g/dL L 31-35 09/02/2017 6:05am 09/02/2017 6:33am Red Cell Distribution Width 19.9 % H 11.7-14.4 09/02/2017 6:05am 2017 6:33am Platelet Count 390 x10e3/uL H 140-360 09/02/2017 6:05am 09/02/2017 6: 33am Neutrophils (%) (Auto) 71.9 % 38.7-80.0 09/02/2017 6:05am 09/02/2017 6: 33am Lymphocytes (%) (Auto) 17.7 % L 18.0-39.1 09/02/2017 6:05am 09/02/2017 6 :33am Monocytes (%) (Auto) 9.9 % 4.4-11.3 09/02/2017 6:05am 09/02/2017 6: 33am Eosinophils (%) (Auto) 0.0 % 0.0-6.0 09/02/2017 6:05am 09/02/2017 6: 33am Basophils (%) (Auto) 0.1 % 0.0-1.0 09/02/2017 6:05am 09/02/2017 6:33am IM GRANULOCYTES % 0.4 % 0.0-1.0 09/02/2017 6:05am 09/02/2017 6:33am Neutrophils # (Auto) 6.1 2.1-6.9 09/02/2017 [...] CLEAR 08/31/2017 4:42pm 08/31/2017 5:36pm Urine Specific Malcolm 1.010 1.010-1.025 08/31/2017 4:42pm 2017 5:36pm Urine [...] Potassium Level 4.0 mmol/L # 3.5-5.1 09/02/2017 6:0509/02/2017 6:43am Chloride Level 112 mmol/L H 98-107 09/02/2017 6:0509/02/2017 6:43am Carbon Dioxide Level 22 mmol/L 22-29 09/02/2017 6:0509/02/2017 6: 43am Anion Gap 11.0 mmol/L 8-16 09/02/2017 6:0509/02/2017 6:43am Blood Urea Nitrogen 15 mg/dL 7-09/02/2017 6:0509/02/2017 6:43am Creatinine 0.52 mg/dL L 0.57-1.11 09/02/2017 6:0509/02/2017 6:43am BUN/Creatinine Ratio 29 H 6-09/02/2017 6:0509/02/2017 6:43am Estimat Glomerular Filtration Rate > 60 ML/MIN 60- 09/02/2017 6:05 6:43am Ranges were taken from the National Kidney Disease Education Program and the National Kid[employer] Foundation literature. Reference ranges: 60 or greater: Normal 16-59 (for 3 consecutive months): Chronic kidney disease 15 or less: Kidney failure Glucose Level 214 mg/dL H 74-118 09/02/2017 6:0509/02/2017 6:43am Calcium Level 8.3 mg/dL L 8.4-10.2 09/02/2017 6:0509/02/2017 6:43am Bedside Glucose 88 mg/dL 70-120 09/03/2017 11:20am 09/03/2017 12:09pm Meter ID: [id number] Lactic Acid Level 10.7 MG/DL 4.5-19.8 08/31/2017 11:20pm 08/31/2017 11: 54pm Iron Level 17 ug/dL L 50-170 09/01/2017 10:23am 09/01/2017 2:02pm Total Iron Binding Capacity 312 ug/dL 261-478 09/01/2017 10:23am 2017 2:02pm Percent Iron Saturation 5 % L 15-50 09/01/2017 10:2309/01/2017 2: 02pm Transferrin 223 mg/dL 180-382 09/01/2017 [...] 5:59pm Amylase Level 54 U/L 25-125 09/01/2017 10:09/01/2017 2:02pm Lipase 45 U/L 8-78 09/01/2017 10:09/01/2017 2:02pm Free Thyroxine 4.73 ng/dL H 0.9-1.8 09/02/2017 9:45am 09/02/2017 10: 39am Free Thyroxine Index 8.2826970 H 1.4-3.8 09/02/2017 9:45am 09/02/2017 11:02am Thyroxine [...] 09/02/2017 10:00am 09/03/2017 9 :12am Performed at: [facility] [address] [id number] Cigar Inspector: Kana Hung MD, Phone: [phone] Microbiology Results Procedure Source Organism/Result Collection Date/Time Result Date/Time Result Status Urine Culture Urine,Clean Catch KENYETTA TROPICALIS 04/11/2017 12:03am 12:44pm Final Blood Culture Blood NO GROWTH AFTER 5 DAYS, FINAL REPORT 08/31/2017 11: 20pm 09/05/2017 11:36pm Final Procedures Procedure Status Date Provider(s) CYSTOSCOPY AND TREATMENT Completed 08/16/[address] of abdomen and pelvis without contrast Active 12/26/16 TEDDY FERNANDEZ MD Computed tomography of abdomen and pelvis with contrast Active 07/31/[address] of abdomen and pelvis without contrast Active 08/31/17 HEATHER SOTELO CARE TEAM 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 Encounters Encounter Location Arrival/Admit Date Discharge/Depart Date Attending Provider Departed Emergency Room [facility] 10/18/17 8:11pm 3:40am ALEXEI RUSSELL MD Discharged Inpatient (obs) [facility] 09/01/17 12:21am 3:45pm AFSANEH CHAMBERLAIN MD Registered Surgical Day Care [facility] 08/16/17 10:55am JANETH THOMPSON MD Discharged Inpatient [facility] 07/31/17 7:52pm 08/03/17 4:25pm AFSANEH CHAMBERLAIN MD Departed Emergency [facility] 04/10/17 11:49pm 04/11 1:59am MERRILL BECKETT MD Departed Emergency Room [facility] 12/26/16 6:04pm 2:00am TEDDY FERNANDEZ MD
[2017-10-23 21:53] LABS: BASOPHILS % 0.3 % (0.0-1.0); EOSINOPHILS % 0.4 % (0.0-6.0); HEMATOCRIT 41.7 % (34.2-44.1); LYMPHOCYTES # (AUTO) 1.9 (1.0-3.2); LYMPHOCYTES % 26.7 % (18.0-39.1); MEAN CORPUSCULAR HEMOGLOBIN 23.4 pg (28-32); MEAN CORPUSCULAR HGB CONC 31.2 g/dL (31-35); MONOCYTES # (AUTO) 0.8 (0.2-0.8); MONOCYTES % 11.5 % (4.4-11.3); NEUTROPHILS # (AUTO) 4.4 (2.1-6.9); NEUTROPHILS % 60.8 % (38.7-80.0); PLATELET COUNT 372 x10e3/uL (140-360); RED BLOOD COUNT 5.56 x10e6/uL (3.6-5.1); RED CELL DISTRIBUTION WIDTH 22.8 % (11.7-14.4)
[2017-10-23 21:55] LABS: BILIRUBIN,URINE NEGATIVE (NEGATIVE); COLOR,URINE RED (YELLOW); KETONES,URINE 3+ (NEGATIVE); LEUKOCYTE ESTERASE ,URINE 2+ (NEGATIVE); NITRITE,URINE NEGATIVE (NEGATIVE); URINE UROBILINOGEN 0.2 mg/dL (0.2 - 1)
[2017-10-23 21:56] LABS: CLARITY,URINE HAZY (CLEAR); PROTEIN,URINE DIPSTICK 2+ (NEGATIVE)
[2017-10-23 22:10] LABS: WBC,URINE (MAN) >50 /HPF (0-5)
[2017-10-23 22:11] LABS: ALANINE AMINOTRANSFERASE 26 IU/L (0-55); ALBUMIN 3.4 g/dL (3.5-5.0); ALBUMIN/GLOBULIN RATIO 0.6 (0.8-2.0); ALKALINE PHOSPHATASE 220 IU/L (40-150); ANION GAP 26.4 mmol/L (8-16); BLOOD UREA NITROGEN 26 mg/dL (7-26); BUN/CREATININE RATIO 35 (6-25); CALCIUM 9.4 mg/dL (8.4-10.2); CARBON DIOXIDE 13 mmol/L (22-29); CHLORIDE 97 mmol/L (98-107); CREATININE, SERUM 0.74 mg/dL (0.57-1.11); EST GLOMERULAR FILTRATION RATE > 60 ML/MIN (60-); GLUCOSE 183 mg/dL (74-118); POTASSIUM 4.4 mmol/L (3.5-5.1); RBC,URINE >50 /HPF (0-5); SODIUM 132 mmol/L (136-145)
[2017-10-23] MEDS ORDERED: ONDANSETRON HCL INJ 2 MG/ML VIAL IV STA (22:53)
[2017-10-23] MEDS ORDERED: MORPHINE SULFATE 2 MG/ML SYR IV STA (22:53)
[2017-10-23] MEDS ORDERED: SODIUM CHLORIDE 0.9% 1000ML 1,000 ML ONE (22:57)
[2017-10-23] MEDS ORDERED: MORPHINE SULFATE 2 MG/ML SYR ONE (22:59)
[2017-10-23] MEDS ORDERED: ONDANSETRON HCL INJ 2 MG/ML VIAL ONE (22:59)
[2017-10-23] MEDS ORDERED: SODIUM CHLORIDE 0.9% 1000ML 1,000 ML IV ONE (23:00)
[2017-10-24 01:30] LABS: BLOOD UREA NITROGEN 23 mg/dL (7-26); BUN/CREATININE RATIO 35 (6-25); CALCIUM 8.3 mg/dL (8.4-10.2); CREATININE, SERUM 0.65 mg/dL (0.57-1.11); EST GLOMERULAR FILTRATION RATE > 60 ML/MIN (60-); GLUCOSE 141 mg/dL (74-118)
[2017-10-24 01:44] LABS: CARBON DIOXIDE 12 mmol/L (22-29); CHLORIDE 102 mmol/L (98-107); SODIUM 134 mmol/L (136-145)
[2017-10-24 02:09] VITALS: BP 148/83
== END 2017-10-24 02:13 | disposition home or self-care (01) ==
LOC: ER 20:50
DX: R10.30 Lower abdominal pain, unspecified (principal); N93.9 Abnormal uterine and vaginal bleeding, unspecified; N30.91 Cystitis, unspecified with hematuria; I10 Essential (primary) hypertension; E11.9 Type 2 diabetes mellitus without complications
CPT/HCPCS: 36415; 80048; 80053; 81001; 85025; 99283; J2270; J2405; J7030

== ENCOUNTER 2018-04-20 11:03 | Emergency (ER) | payer OTHER ==
[~2018-04-20] VITALS: Ht 154.9 cm; Wt 59.9 kg
[2018-04-20 12:31] LABS: CLARITY,URINE CLEAR (CLEAR); COLOR,URINE YELLOW (YELLOW)
[2018-04-20 12:32] LABS: BILIRUBIN,URINE NEGATIVE (NEGATIVE); KETONES,URINE NEGATIVE (NEGATIVE); LEUKOCYTE ESTERASE ,URINE 2+ (NEGATIVE); NITRITE,URINE NEGATIVE (NEGATIVE); PROTEIN,URINE DIPSTICK 1+ (NEGATIVE); URINE UROBILINOGEN 0.2 mg/dL (0.2 - 1)
[2018-04-20 12:50] LABS: WBC,URINE (MAN) >50 /HPF (0-5)
[2018-04-20 12:51] LABS: BACTERIA,URINE RARE /HPF
--- NOTE | 2018-04-20 13:58 | Diagnostic Imaging Report ---
EXAM: Abdomen 1 Views INDICATION: \S\flankj pain \[id number] \S\[id number] COMPARISON: CT abdomen and pelvis 06/30/2018 FINDINGS: Moderate amount of stool in the colon. No dilated loops of small bowel. No renal calculi. Stable position of the left ureteral stent. Large. Shaped opacity within the pelvis measuring 9.6 x 14.3 cm is unchanged and correlates with an enlarged uterus seen on CT. No abnormal soft tissue masses. No degenerative changes in the lumbar spine and pelvis. IMPRESSION: 1. Stable position of the left ureteral stent. 2. No abnormal calcifications overlying the collecting system, bilaterally. Signed by: Dr. Josefa Gilman M.D. on 04/20/2018 1:53 PM
== END 2018-04-20 15:16 | disposition home or self-care (01) ==
LOC: ER 11:03
DX: N39.0 Urinary tract infection, site not specified (principal); I10 Essential (primary) hypertension; E11.9 Type 2 diabetes mellitus without complications; E78.5 Hyperlipidemia, unspecified; E05.90 Thyrotoxicosis, unspecified without thyrotoxic crisis or storm; K86.9 Disease of pancreas, unspecified
CPT/HCPCS: 74018; 81001; 81025; 99284

== ENCOUNTER → 2018-05-02 | Day surgery (SDC) | payer OTHER ==
[2018-04-21 13:52] LABS: ANION GAP 12.7 mmol/L (8-16); BLOOD UREA NITROGEN 9 mg/dL (7-26); BUN/CREATININE RATIO 17 (6-25); CARBON DIOXIDE 22 mmol/L (22-29); CHLORIDE 105 mmol/L (98-107); CREATININE, SERUM 0.54 mg/dL (0.57-1.11); EST GLOMERULAR FILTRATION RATE > 60 ML/MIN (60-); GLUCOSE 168 mg/dL (74-118); POTASSIUM 3.7 mmol/L (3.5-5.1); SODIUM 136 mmol/L (136-145)
[~2018-05-02] MED LIST changes: +GENTAMICIN 80MG/NS 100 ML 100 ML IV ONE; +INSULIN REGULAR, HUMAN 100 UNIT/1 ML 3ML VIAL ONE; +IOPAMIDOL 610MG/1ML 300 MG/ML VIAL IV ONE; +PROPOFOL IV EMULSION 10 MG/ML 20 ML VIAL ONE; +SEVOFLURANE INHAL SOLN 250 ML PEN BTL ONE
--- NOTE | 2018-05-02 08:44 | Operative Report ---
DATE OF PROCEDURE: May 02, 2018 PREOPERATIVE DIAGNOSES: 1. Left indwelling ureteral stent. 2. Left hydronephrosis. POSTOPERATIVE DIAGNOSES: 1. Left indwelling ureteral stent. 2. Left hydronephrosis. PROCEDURES: 1. Cystoscopy with staged stent removal, left side (entirely separate procedure for encrusted left ureteral stent). 2. Cystourethroscopy with insertion of left indwelling ureteral stent (entirely separate procedure for hydronephrosis). 3. Supervision of fluoroscopy. ANESTHESIA: General. ESTIMATED BLOOD LOSS: Minimal. COMPLICATIONS: None. INDICATIONS: Ms. Bojorquez is a noncompliant 42-year-old female who presents for stent exchange with a longer than recommended indwelling stent time. She voiced understanding of the options, alternatives, the risks and benefits, and she elected to proceed. PROCEDURE IN DETAIL: After informed consent was obtained, the patient was taken to the operative suite, placed supine on operative table and underwent general anesthesia by the anesthesia services. She was placed in dorsal lithotomy position and sterilely prepped and draped in standard fashion for cystoscopy. A 22.5-Greek cystoscope was inserted per urethra. A normal urethra was noted. A guidewire was inserted alongside the stent, seen to coil at the level of the renal pelvis under fluoroscopy. Stent was removed intact. It was encrusted. A ureteral stent [place] was deployed 6 x 24 cm with a coil in the renal pelvis and a coil in the bladder. Patient's bladder was drained. She was awakened from anesthesia and transported to the recovery room in excellent condition. SUPERVISION OF FLUOROSCOPY: I was present throughout the entire procedure and I supervised the use of fluoroscopy as no radiologist was present. Job#: [id number] cc:PHILLIP XAVIER MD
[2018-05-02 09:00] VITALS: BP 129/62
--- OUTSIDE RECORDS SUMMARY | 2018-05-13 11:06 | XMS REPORT | Clinical Summary ---
Author Author [facility] Organization [facility] Address Unknown Phone Unavailable Care Team Providers Care Scrap Breaker Name Role Phone PCP Unavailable Allergies Active Allergy Reactions Severity Noted Date Comments Cefazolin 09/23/2017 Ciprofloxacin Hives 09/23/2017 Cephalexin Hives 09/23/2017 Current Medications Prescription Sig. Disp. Refills Start End Date Status Date ibuprofen (MOTRIN) 800 mg Take 1 tablet by mouth 30 tablet 2 09/23/19 Active tabletIndications: every 8 hours as needed 18 Uterine leiomyoma, for Pain. unspecified location insulin detemir U-100 Inject 30 Units under the Active (LEVEMIR) 100 unit/mL skin every evening . injection insulin aspart U-100 Inject 12 Units under the Active (NOVOLOG U-100 INSULIN skin 3 times daily. ASPART) 100 unit/mL injection traMADol (ULTRAM) 50 mg Take 1 tablet by mouth 15 tablet 0 09/23/19 10/01/19 Discontin tabletIndications: every 8 hours as needed 18 18 ued Uterine leiomyoma, for Pain. unspecified location fluconazole (DIFLUCAN) Take 1 tablet by mouth 1 tablet 0 09/25/19 09/25/19 150 mg tabletIndications: once for 1 dose. 18 18 Yeast infection of the vagina methIMAzole (TAPAZOLE) 5 Take 15 mg by mouth 3 10/01/19 Discontin mg tablet times daily. 18 ued Metoprolol-Hydrochlorothi Take 1 tablet by mouth 10/01/19 Discontin azide 100-25 mg per daily. 18 ued tablet metoprolol tartrate Take 25 mg by mouth 2 10/01/19 Discontin (LOPRESSOR) 25 mg tablet times daily. 18 ued sulfamethoxazole-trimetho Take 1 tablet by mouth 2 8 tablet 0 10/01/19 10/01/19 Discontin prim (BACTRIM DS) 800-160 times daily for 4 days. 18 18 ued mg per tabletIndications: Recurrent UTI ferrous sulfate 325 mg Take 1 tablet by mouth 30 tablet 2 10/02/19 10/01/19 Discontin (65 mg iron) daily for 90 days. 18 18 ued tabletIndications: Iron deficiency anemia, unspecified iron deficiency anemia type methIMAzole (TAPAZOLE) 10 Take 2 tablets by mouth 3 180 tablet 2 10/01/19 12/30/19 mg tabletIndications: times daily for 90 days. 18 18 Hyperthyroidism propranolol (INDERAL) 10 Take 3 tablets by mouth 3 270 tablet 2 10/01/19 10/01/19 Discontin mg tabletIndications: times daily for 90 days. 18 18 ued Hyperthyroidism traMADol (ULTRAM) 50 mg Take 2 tablets by mouth 30 tablet 0 10/01/19 10/08/19 tabletIndications: every 6 hours as needed 18 18 Uterine leiomyoma, for up to 7 days for unspecified location Pain. ferrous sulfate 325 mg Take 1 tablet by mouth 30 tablet 2 10/02/19 12/31/19 (65 mg iron) daily for 90 days. 18 18 tabletIndications: Iron deficiency anemia, unspecified iron deficiency anemia type propranolol (INDERAL) 10 Take 3 tablets by mouth 3 270 tablet 2 10/01/19 12/30/19 mg tabletIndications: times daily for 90 days. 18 18 Hyperthyroidism sulfamethoxazole-trimetho Take 1 tablet by mouth 2 8 tablet 0 10/01/19 10/05/19 prim (BACTRIM DS) 800-160 times daily for 4 days. 18 18 mg per tabletIndications: Recurrent UTI Active Problems Problem Noted Date Complicated UTI (urinary tract infection) 09/27/2017 Recurrent UTI 09/23/2017 Overview: -s/p hospitalization 09/26-09/30 2017 -Has h/o ureteral stent placed in 05/2017 with multiple replacements 2/2 infections most recently in 07/2017. Admission workup revealed UA with findings c/w acute infection. Cultures were sent and she was started on broad spectrum Abx Ertapenem given hx of allergic reactions to cephalosporins. -Currently denies any s/s of UTI Uterine leiomyoma 09/23/2017 Overview: -Per patient, dx with uterine fibroids 2 years ago -TVUS showLarge central fibroid with likely submucosal component is 9.2 x 8.4 x 6.5 cm, Partially visualized right adnexal lesion is most consistent with a pedunculated fibroid measuring 6.7 cm in largest diameter. 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 -Currently on Methimazole 15 mg TID -Currently denies palpitations, SOB, or difficulty breathing Common bile duct dilation History of pancreatitis Microcytic anemia Overview: -Hgb 7.8 -Likely 2/2 FE deficiency -Reports compliance w/ Fe Hydroureteronephrosis Resolved Problems Problem Noted Date Resolved Date Yeast infection of the vagina 09/25/2017 10/07/2017 H/O acute pancreatitis 09/23/2017 09/23/2017 Tachycardia 09/30/2017 Encounters Date Type Specialty Care Team Description 04/08/2018 Office Visit Urology NO SHOW ENCOUNTER (Primary Dx) 10/07/2017 Office Visit Gynecology Jarvis Marx MD Submucous leiomyoma of [place] M, uterus (Primary Dx); Recurrent UTI; Pelvic pain; Essential hypertension; Type 2 diabetes mellitus with complication, with long-term current use of insulin; Hyperthyroidism; Complicated UTI (urinary tract infection); History of pancreatitis; Microcytic anemia; Hydroureteronephrosis 10/01/2017 Pharmacy Visit 09/30/2017 Pharmacy Visit 09/28/2017 Pharmacy Visit 09/27/2017 Procedure Pass 09/26/2017 Hospital Randy Vicente MD Recurrent UTI (Primary - Encounter Loan Barragan MD Dx); 09/30/2017 Hyperthyroidism; Complicated UTI (urinary tract infection); Pelvic pain; History of pancreatitis; Common bile duct dilation; Type 2 diabetes mellitus with complication, with long-term current use of insulin; Iron deficiency anemia, unspecified iron deficiency anemia type; Uterine leiomyoma, unspecified location 09/25/2017 Orders Only Gynecology Gabriela, Lashon A, Yeast infection of the ResidentMD vagina (Primary Dx) 09/24/2017 Hospital Radiology Encounter 09/24/2017 Orders Only Gynecology Lashon Ochoa, Pelvic pain (Primary Dx) ResidentMD 09/23/2017 Hospital Lab Jarvis Marx MD Encounter 09/23/2017 Office Visit Gynecology Jarvis Marx MD Uterine leiomyoma, Jyoti Delaney MD unspecified location (Primary Dx); Recurrent UTI; Type 2 diabetes mellitus with complication, with long-term current use of insulin; Hyperthyroidism after 05/01/2017 Family History Medical History Relation Name Comments Diabetes type II Mother Heart disease Other Relation Name Status Comments Mother Other Social History Tobacco Use Types Packs/Day Years Used Date Never Assessed Sex Assigned at Date Recorded Not on file Last Filed Vital Signs Vital Sign Reading Time Taken Blood Pressure 128/88 10/07/2017 3:16 PM CDT Pulse 96 10/07/2017 3:16 PM CDT Temperature 36.7 C (98 F) 10/07/2017 3:16 PM CDT Respiratory Rate 18 10/07/2017 3:16 PM CDT Oxygen Saturation 98% 09/29/2017 12:14 AM [employer] Inhaled Oxygen - - Concentration Weight 49.4 kg (108 lb 12.8 oz) 10/07/2017 3:16 PM CDT Height 154.9 cm (5' 1") 10/07/2017 3:16 PM CDT Body Mass Index 20.56 10/07/2017 3:16 PM CDT Plan of Treatment Health Maintenance Due Date Last Done Comments DM Foot Exam (Yearly) 1992 DM Retinal Exam (Yearly) 1992 Cervical Cancer Scrn (3 10/27/1995 Yrs) Breast Cancer Scrn 2014 (Yearly) IMM Influenza Seasonal 04/28/2018 Oct to September (>/=19 yrs) DM HGBA1C (Yearly) 09/23/2018 09/23/2017 DM Microalbumin Urine 09/26/2018 09/26/2017, 09/23/2017 Scrn (Yearly) Procedures Procedure Name Priority Date/Time Associated Diagnosis Comments GLUCOSE POC Routine 09/30/2017 Results for this 11:42 AM [employer] procedure are in the results section. GLUCOSE POC Routine 09/30/2017 Results for this 7:57 AM [employer] procedure are in the results section. CBC/DIFF Routine 09/30/2017 Results for this 4:50 AM [employer] procedure are in the results section. BASIC METABOLIC PANEL Routine 09/30/2017 Results for this 4:50 AM [employer] procedure are in the results section. MRI PANCREAS W/O CONTRAST Routine 09/30/2017 History of pancreatitis Results for this 2:31 AM [employer] Common bile duct dilation procedure are in the results section. GLUCOSE POC Routine 09/29/2017 Results for this 8:24 PM [employer] procedure are in the results section. GLUCOSE POC Routine 09/29/2017 Results for this 5:08 PM [employer] procedure are in the results section. GLUCOSE POC Routine 09/29/2017 Results for this 11:39 AM [employer] procedure are in the results section. NBILL Routine 09/29/2017 10:40 AM [employer] PATHOLOGIST REVIEW Routine 09/29/2017 Results for this 10:40 AM [employer] procedure are in the results section. CBC/DIFF STAT 09/29/2017 Results for this 10:40 AM [employer] procedure are in the results section. FERRITIN STAT 09/29/2017 Results for this 10:40 AM [employer] procedure are in the results section. VITAMIN B12 STAT 09/29/2017 Results for this 10:40 AM [employer] procedure are in the results section. RETIC COUNT STAT 09/29/2017 Results for this 10:40 AM [employer] procedure are in the results section. LDH STAT 09/29/2017 Results for this 10:40 AM [employer] procedure are in the results section. FOLIC ACID STAT 09/29/2017 Results for this 10:40 AM [employer] procedure are in the results section. HAPTOGLOBIN STAT 09/29/2017 Results for this 10:40 AM [employer] procedure are in the results section. IRON PROFILE STAT 09/29/2017 Results for this 10:40 AM [employer] procedure are in the results section. GLUCOSE POC Routine 09/29/2017 Results for this 7:26 AM [employer] procedure are in the results section. BASIC METABOLIC PANEL Routine 09/29/2017 Results for this 4:00 AM [employer] procedure are in the results section. CBC/DIFF Routine 09/29/2017 Results for this 4:00 AM [employer] procedure are in the results section. GLUCOSE POC Routine 09/28/2017 Results for this 8:08 PM [employer] procedure are in the results section. VANCOMYCIN, TROUGH Routine 09/28/2017 Results for this 6:22 PM [employer] procedure are in the results section. GLUCOSE POC Routine 09/28/2017 Results for this 4:11 PM [employer] procedure are in the results section. GLUCOSE POC Routine 09/28/2017 Results for this 11:33 AM [employer] procedure are in the results section. GLUCOSE POC Routine 09/28/2017 Results for this 7:37 AM [employer] procedure are in the results section. MAGNESIUM Routine 09/28/2017 Results for this 3:35 AM [employer] procedure are in the results section. PHOSPHORUS Routine 09/28/2017 Results for this 3:35 AM [employer] procedure are in the results section. LIVER PROFILE Routine 09/28/2017 Results for this 3:35 AM [employer] procedure are in the results section. BASIC METABOLIC PANEL Routine 09/28/2017 Results for this 3:35 AM [employer] procedure are in the results section. CBC/DIFF Routine 09/28/2017 Results for this 3:35 AM [employer] procedure are in the results section. GLUCOSE POC Routine 09/27/2017 Results for this 9:52 PM [employer] procedure are in the results section. GLUCOSE POC Routine 09/27/2017 Results for this 8:18 PM [employer] procedure are in the results section. VANCOMYCIN, TROUGH Routine 09/27/2017 Results for this 6:50 PM [employer] procedure are in the results section. TOTAL T3 Routine 09/27/2017 Results for this 5:07 PM [employer] procedure are in the results section. THYROID PEROXIDASE (TPO) STAT 09/27/2017 Results for this AB 5:07 PM [employer] procedure are in the results section. THYROID STIM IMMUN STAT 09/27/2017 Results for this 5:07 PM [employer] procedure are in the results section. VANCOMYCIN, TROUGH Routine 09/27/2017 Results for this 5:07 PM [employer] procedure are in the results section. GLUCOSE POC Routine 09/27/2017 Results for this 5:00 PM [employer] procedure are in the results section. U/S THYROID/NECK MEMO 09/27/2017 Complicated UTI (urinary Results for this 4:27 PM [employer] tract infection) procedure are in the results section. GLUCOSE POC Routine 09/27/2017 Results for this 12:43 PM [employer] procedure are in the results section. U/S ABDOMEN STAT 09/27/2017 Recurrent UTI Results for this 12:18 PM [employer] Pelvic pain procedure are in the results section. URINE DRUG SCREEN STAT 09/27/2017 Results for this 11:01 AM [employer] procedure are in the results section. INFUSION PUMP STAT 09/27/2017 10:18 AM [employer] HEPATITIS PANEL STAT 09/27/2017 Results for this 10:04 AM [employer] procedure are in the results section. PT/INR/PTT STAT 09/27/2017 Results for this 10:04 AM [employer] procedure are in the results section. COMPREHENSIVE METABOLIC STAT 09/27/2017 Results for this PANEL(DBIL NOT INCLUDED) 10:04 AM [employer] procedure are in the results section. CBC/DIFF STAT 09/27/2017 Results for this 10:04 AM [employer] procedure are in the results section. BEDSIDE ULTRASOUND Routine 09/27/2017 Results for this 4:05 AM [employer] procedure are in the results section. VBG POC Routine 09/27/2017 Results for this 2:45 AM [employer] procedure are in the results section. XRAY CHEST 1 VIEW STAT 09/26/2017 Recurrent UTI Results for this 11:51 PM [employer] Hyperthyroidism procedure are in the results section. VBG POC Routine 09/26/2017 Results for this 11:03 PM [employer] procedure are in the results section. BMP POC Routine 09/26/2017 Results for this 11:03 PM [employer] procedure are in the results section. FREE T4 STAT 09/26/2017 Results for this 11:00 PM [employer] procedure are in the results section. TSH STAT 09/26/2017 Results for this 11:00 PM [employer] procedure are in the results section. UA CHEMISTRIES STAT 09/26/2017 Results for this 11:00 PM [employer] procedure are in the results section. CBC/DIFF STAT 09/26/2017 Results for this 11:00 PM [employer] procedure are in the results section. URINE CULTURE STAT 09/26/2017 Results for this 11:00 PM [employer] procedure are in the results section. BLOOD CULTURE STAT 09/26/2017 Results for this 11:00 PM [employer] procedure are in the results section. BLOOD CULTURE STAT 09/26/2017 Results for this 11:00 PM [employer] procedure are in the results section. 12 LEAD EKG Routine 09/26/2017 Results for this 9:58 PM [employer] procedure are in the results section. U/S PELVIS NON-OB Routine 09/24/2017 Uterine leiomyoma, Results for this 12:20 PM [employer] unspecified location procedure are in the results section. U/S TRANSVAGINAL Routine 09/24/2017 Uterine leiomyoma, Results for this 12:20 PM [employer] unspecified location procedure are in the results section. URINE CULTURE Routine 09/23/2017 Recurrent UTI Results for this 2:26 PM [employer] procedure are in the results section. SYPHILIS SCREEN FOR Routine 09/23/2017 Results for this INFECTION 2:25 PM [employer] procedure are in the results section. HIV-1/HIV-2 Routine 09/23/2017 Results for this DIAGNOSTIC/SYMPTOMATIC 2:25 PM [employer] procedure are in the results section. HEMOGLOBIN A1C Routine 09/23/2017 Type 2 diabetes mellitus Results for this 2:25 PM [employer] with complication, with procedure are in the long-term current use of results section. insulin FREE T4 Routine 09/23/2017 Hyperthyroidism Results for this 2:25 PM [employer] procedure are in the results section. TSH Routine 09/23/2017 Hyperthyroidism Results for this 2:25 PM [employer] procedure are in the results section. UA CHEMISTRIES Routine 09/23/2017 Recurrent UTI Results for this 2:25 PM [employer] procedure are in the results section. CHLAM/GC DNA AMPLI Routine 09/23/2017 Uterine leiomyoma, Results for this 1:33 PM [employer] unspecified location procedure are in the results section. [facility] CYTOLOGY PATHOLOGY Routine 09/23/2017 Results for this 1:30 PM [employer] procedure are in the results section. WET MOUNT Routine 09/23/2017 Uterine leiomyoma, Results for this 1:30 PM [employer] unspecified location procedure are in the results section. CLARISSA STAIN Routine 09/23/2017 Uterine leiomyoma, Results for this 1:30 PM [employer] unspecified location procedure are in the results section. HPV HIGH-RISK Routine 09/23/2017 Uterine leiomyoma, Results for this 1:30 PM [employer] unspecified location procedure are in the results section. after 05/01/2017 Results * GLUCOSE POC (09/30/2017 11:42 AM) Only the most recent of 14 results within the time period is included. Glucose POC 205 (H) 74 - 106 mg/dL [facility] 1 Performing Organization Address City/State/Zipcode Phone Number [facility] * CBC/DIFF (09/30/2017 4:50 AM) Only the most recent of 6 results within the time period is included. WBC 3.7 (L) 4.5 - 11.0 K/uL [facility] 2 RBC 3.62 (L) 4.20 - 5.40 M/uL [facility] 2 Hemoglobin 7.8 (L) 12.0 - 16.0 g/dL [facility] 2 Hematocrit 27.0 (L) 37.0 - 47.0 % [facility] 2 MCV 75 (L) 82 - 92 fL [facility] 2 MCH 21.5 (L) 27.0 - 32.0 pg [facility] MCHC 28.9 (L) 32.0 - 36.0 g/dL [facility] 2 RDW 54.4 (H) 36.4 - 46.3 fL [facility] 2 Platelet 300 150 - 400 K/uL [facility] 2 Mean Platelet Volume 11.4 9.4 - 12.4 fL [facility] Percent NRBC 0.0 [facility] 2 Absolute NRBC 0.00 [facility] 2 Neutrophil 44.5 34.0 - 70.0 % [facility] Lymphocyte 37.9 20.0 - 50.0 % [facility] Monocyte 12.4 (H) 5.0 - 12.0 % [facility] Eosinophil 4.6 0.7 - 5.0 % [facility] Basophil 0.3 0.1 - 1.2 % [facility] 2 Pct Immat Gran 0.3 0.0 - 0.5 [facility] 2 Neutrophil, Abs 1.66 1.56 - 6.13 K/uL [facility] 2 Lymphocyte, Abs 1.41 1.18 - 3.74 K/uL [facility] 2 Monocyte, Abs 0.46 (H) 0.24 - 0.36 K/uL [facility] Eosinophil, Abs 0.17 0.04 - 0.36 K/uL [facility] Basophil, Abs 0.01 0.01 - 0.08 K/uL [facility] Absol Immat Gran 0.01 0.00 - 0.03 K/uL [facility] 2 Specimen Blood Performing Organization Address City/State/Zipcode Phone Number [facility] 2 * BASIC METABOLIC PANEL (09/30/2017 4:50 AM) Only the most recent of 3 results within the time period is included. CO2 25 21 - 32 mmol/L [facility] 4 Chloride 105 98 - 107 mmol/L [facility] 4 Potassium 3.6 3.50 - 5.10 mmol/L [facility] 4 Sodium 138 136 - 145 mmol/L [facility] 4 Glucose 193 (H) 70 - 99 mg/dL [facility] 4 Urea Nitrogen 10 7 - 18 mg/dL [facility] 4 Creatinine 0.30 (L) 0.60 - 1.30 mg/dL [facility] 4 Anion Gap 8 [facility] 4 Calcium 8.3 (L) 8.50 - 10.20 mg/dL [facility] 4 GFR, Estimated >60 mL/min/1.73 m2 [facility] 4 GFR, Estim, Afr-Am >60 mL/min/1.73 m2 [facility] 4 Specimen Blood Performing Organization Address City/State/Zipcode Phone Number [facility] 4 * MRI PANCREAS W/O CONTRAST (09/30/2017 2:31 AM) Impressions Performed At IMPRESSION: SMS 1.Mild intrahepatic and moderate extrahepatic biliary ductal dilatation with smooth tapering at the ampulla. No choledocholithiasis. No evidence of obstructing mass on noncontrast MRI. 2.Mildly dilated pancreatic duct in the pancreatic body and tail. Duct is relatively effaced as it passes adjacent to peripancreatic head cyst. 3.Two peripancreatic/exophytic pancreatic unilocular cystic structures anterior to the pancreatic head and at the pancreatic tail-splenic hilum. Given a history of pancreatitis and radiographic appearance, likely represent pseudocysts. IPMNs and/or mucinous cystic neoplasms are less likely. There is s suggestion of communication with pancreatic duct, more compelling at peripancreatic head cystic structure. 4.Atrophic changes in the pancreas which is thinned diffusely. 5.Unchanged moderate to severe left hydroureteronephrosis status post placement of a nephroureteral stent, May indicating stent malfunction. 6.Mild right hydroureteronephrosis. RECOMMENDATIONS: In the absence of imaging or laboratory findings of acute biliary obstruction, nonemergent GI consultation recommended for further evaluation and management of biliary dilation and pancreatic/peripancreatic cysts. Dictated By: Franki Cool MD, 09/30/2017 9:15 AM I have reviewed the study and agree with the findings in this report. Signed By: Joyce Novoa MD, 09/30/2017 3:04 PM Narrative Performed At EXAM: MR ABDOMEN WITHOUT CONTRAST SMS DATE: 09/30/2017 2:31 AM INDICATION: Pancreatitis. Common bile duct dilation. History of pancreatitis COMPARISON: Abdominal ultrasound from 09/27/2017. TECHNIQUE: Multiplanar, multisequence MR acquisition of the abdomen without intravenous contrast, per MRCP protocol. IV contrast: None. Enteric contrast: None. FINDINGS: Lines, tubes and hardware: None. Lower thorax: Clear. Hepatobiliary: Liver: Normal. Gallbladder and cystic duct: Normal. Intrahepatic bile ducts: Mild intrahepatic biliary dilatation is seen. Extrahepatic bile duct: Moderate extrahepatic biliary ductal dilatation is seen. The common hepatic duct measures up to 12 mm and common bile duct measures 10 mm in diameter. The distal CBD demonstrates smooth tapering at ampulla. No filling defect to indicate choledocholithiasis. No evidence of an obstructing mass on noncontrast MRI. Pancreas: *The pancreatic duct is mildly dilated in the pancreatic body and tail, where it measures 3 mm. Pancreatic duct is effaced at the body-head junction where it passes posterior to a peripancreatic cyst. The duct in the pancreatic head is again distended but nondilated. *A thin-walled unilocular T2 hyperintense cystic lesion is positioned within the splenic hilum extending superiorly from the pancreatic tail and abutting the gastric wall on its medial margin. It measures approximately 2 x 2.2 x 3.8 cm (AP by transverse by craniocaudal). Mild T1 hyperintensity of contents may indicate presence of blood products. *An additional thin-walled unilocular T2 hyperintense cystic lesion along the anterior margin of the pancreatic head which measures approximately 1.2 x 1.9 x 1.6 cm (AP by transverse by craniocaudal). *A communication between the peripancreatic head cyst and the pancreatic duct is suggested on (series 4 image 17).Less compelling suggestion of duct communication with tail cyst. *Atrophic changes in the pancreatic parenchyma which is thinned diffusely. Portal vein: Normal. Spleen: Normal. Adrenals: Normal. Kidneys and ureters: *The proximal portion of a left ureteral stent is seen, with the proximal located within the left renal pelvis and the distal outside the [id number]. *Moderate to severe left hydronephrosis is again seen, with the left renal pelvis measuring up to 2.3 cm in diameter, along with dilatation and blunting of the calyces. The left ureter remains dilated and tortuous both proximally and distally. *Mild right hydronephrosis is also seen, with the right pelvis measuring up to 1.5 cm in diameter, although without calyceal dilatation. The right proximal ureter is normal in diameter, with the right distal ureter measuring up to 9.4 mm in diameter. Gastrointestinal tract: Normal caliber. Peritoneum, mesentery and retroperitoneum: No free air, ascites or loculated fluid. Lymph nodes: Normal. Vasculature: Normal. Bones: Normal. Soft tissues: Normal. Procedure Note Interface, Rad/Mammog In - 09/30/2017 3:09 PM [employer]ATOR EXAM: MR ABDOMEN WITHOUT CONTRAST DATE: 09/30/2017 2:31 AM INDICATION: Pancreatitis. Common bile duct dilation. History of pancreatitis COMPARISON: Abdominal ultrasound from 09/27/2017. TECHNIQUE: Multiplanar, multisequence MR acquisition of the abdomen without intravenous contrast, per MRCP protocol. IV contrast: None. Enteric contrast: None. FINDINGS: Lines, tubes and hardware: None. Lower thorax: Clear. Hepatobiliary: Liver: Normal. Gallbladder and cystic duct: Normal. Intrahepatic bile ducts: Mild intrahepatic biliary dilatation is seen. Extrahepatic bile duct: Moderate extrahepatic biliary ductal dilatation is seen. The common hepatic duct measures up to 12 mm and common bile duct measures 10 mm in diameter. The distal CBD demonstrates smooth tapering at ampulla. No filling defect to indicate choledocholithiasis. No evidence of an obstructing mass on noncontrast MRI. Pancreas: * The pancreatic duct is mildly dilated in the pancreatic body and tail, where it measures 3 mm. Pancreatic duct is effaced at the body-head junction where it passes posterior to a peripancreatic cyst. The duct in the pancreatic head is again distended but nondilated. * A thin-walled unilocular T2 hyperintense cystic lesion is positioned within the splenic hilum extending superiorly from the pancreatic tail and abutting the gastric wall on its medial margin. It measures approximately 2 x 2.2 x 3.8 cm (AP by transverse by craniocaudal). Mild T1 hyperintensity of contents may indicate presence of blood products. * An additional thin-walled unilocular T2 hyperintense cystic lesion along the anterior margin of the pancreatic head which measures approximately 1.2 x 1.9 x 1.6 cm (AP by transverse by craniocaudal). * A communication between the peripancreatic head cyst and the pancreatic duct is suggested on (series 4 image 17). Less compelling suggestion of duct communication with tail cyst. * Atrophic changes in the pancreatic parenchyma which is thinned diffusely. Portal vein: Normal. Spleen: Normal. Adrenals: Normal. Kidneys and ureters: * The proximal portion of a left ureteral stent is seen, with the proximal located within the left renal pelvis and the distal outside the [id number]. * Moderate to severe left hydronephrosis is again seen, with the left renal pelvis measuring up to 2.3 cm in diameter, along with dilatation and blunting of the calyces. The left ureter remains dilated and tortuous both proximally and distally. * Mild right hydronephrosis is also seen, with the right pelvis measuring up to 1.5 cm in diameter, although without calyceal dilatation. The right proximal ureter is normal in diameter, with the right distal ureter measuring up to 9.4 mm in diameter. Gastrointestinal tract: Normal caliber. Peritoneum, mesentery and retroperitoneum: No free air, ascites or loculated fluid. Lymph nodes: Normal. Vasculature: Normal. Bones: Normal. Soft tissues: Normal. IMPRESSION IMPRESSION: 1. Mild intrahepatic and moderate extrahepatic biliary ductal dilatation with smooth tapering at the ampulla. No choledocholithiasis. No evidence of obstructing mass on noncontrast MRI. 2. Mildly dilated pancreatic duct in the pancreatic body and tail. Duct is relatively effaced as it passes adjacent to peripancreatic head cyst. 3. Two peripancreatic/exophytic pancreatic unilocular cystic structures anterior to the pancreatic head and at the pancreatic tail-splenic hilum. Given a history of pancreatitis and radiographic appearance, likely represent pseudocysts. IPMNs and/or mucinous cystic neoplasms are less likely. There is s suggestion of communication with pancreatic duct, more compelling at peripancreatic head cystic structure. 4. Atrophic changes in the pancreas which is thinned diffusely. 5. Unchanged moderate to severe left hydroureteronephrosis status post placement of a nephroureteral stent, May indicating stent malfunction. 6. Mild right hydroureteronephrosis. RECOMMENDATIONS: In the absence of imaging or laboratory findings of acute biliary obstruction, nonemergent GI consultation recommended for further evaluation and management of biliary dilation and pancreatic/peripancreatic cysts. Dictated By: Franki Cool MD, 09/30/2017 9:15 AM I have reviewed the study and agree with the findings in this report. Signed By: Joyce Novoa MD, 09/30/2017 3:04 PM Performing Organization Address [facility] Phone Number SMS * PATHOLOGIST REVIEW (09/29/2017 10:40 AM) Pathologist Review Gama Hernandez M.D./[id number] [facility] 2 (note) Pt name: Chika Bojorquez PB smear bar code# [id number] CBC and peripheral blood smear review: Microcytic, hypochromatic anemia CBC and differential confirmed Morphology: RBCs: Decreased in number; microocytic, hypochromic; mild anisopoikilocytosis; polychromasia not adequate; schistocytes absent; nucleated RBCs absent; intracellular organisms absent. WBCs: normal in number; normal morphology; dysplasia absent; rare plasma cells present Platelets: normal in number; normal morphology many large forms. platelet clumps present CPT 27761 Gama Hernandez MD #[id number] Performing Organization Address [facility] Phone Number [facility]ISYS [facility] 2 * FOLIC ACID (09/29/2017 10:40 AM) Folic Acid 19.9 5.9 - 24.8 ng/mL BT OUTPATIENT DRAW 2 Specimen Blood Performing Organization Address [facility] Phone Number MISYS BT OUTPATIENT DRAW 2 * FERRITIN (09/29/2017 10:40 AM) Ferritin 30.60 11.0 - 306.8 ng/mL BT OUTPATIENT DRAW 2 Specimen Blood Performing Organization Address [facility] Phone Number MISYS BT OUTPATIENT DRAW 2 * VITAMIN B12 (09/29/2017 10:40 AM) Vitamin B12 656 211 - 911 pg/mL BT MAIN-STATION 3 Specimen Blood Performing Organization Address [facility] Phone Number MISYS MAIN-STATION 3 * RETIC COUNT (09/29/2017 10:40 AM) Retic Count 1.3 0.5 - 1.7 % [facility] 2 Immature Retic 18.2 (H) 3.0 - 15.9 % [facility] 2 Ret Hgb Equivalent 23.00 (L) 30.8 - 36.6 pg [facility] 2 Absolute Retic 0.05 0.02 - 0.08 M/uL [facility] 2 Specimen Blood Performing Organization Address [facility] Phone [facility] 2 * LDH (09/29/2017 10:40 AM) LDH 161 84 - 246 U/L [facility] 2 Specimen Blood Performing Organization Address [facility] Phone Number [facility] 2 * IRON PROFILE (09/29/2017 10:40 AM) Iron 182 50 - 212 ug/dL MAIN-STATION 3 TIBC 312 250 - 450 ug/dL MAIN-STATION 3 % Iron Sat 58 % BT MAIN-STATION 3 Specimen Blood Performing Organization Address [facility] Phone Number [facility] * HAPTOGLOBIN (09/29/2017 10:40 AM) Haptoglobin 206.5 44 - 215 mg/dL MAIN-STATION 3 Specimen Blood Performing Organization Address [facility] Phone Number [facility] * VANCOMYCIN, TROUGH (09/28/2017 6:22 PM) Only the most recent of 3 results within the time period is included. Vancomycin, Trough 9.7 (L) 10 - 20 ug/mL [facility] 1 Specimen Blood Performing Organization Address [facility] Phone [facility] 1 * PHOSPHORUS (09/28/2017 3:35 AM) Phosphorus 2.6 2.5 - 4.9 mg/dL [facility] 4 Specimen Blood Performing Organization Address [facility] Phone Number [facility] 4 * MAGNESIUM (09/28/2017 3:35 AM) Magnesium 1.4 (L) 1.8 - 2.4 mg/dL [facility] 4 Specimen Blood Performing Organization Address [facility] Phone Number [facility] 4 * LIVER PROFILE (09/28/2017 3:35 AM) T Protein 6.9 6.4 - 8.2 g/dL [facility] 4 Albumin 2.6 (L) 3.4 - 5.0 g/dL [facility] 4 T Bilirubin 0.3 0.2 - 1.0 mg/dL [facility] 4 Alk Phos 179 (H) 45 - 117 U/L [facility] 4 AST 26 15 - 37 U/L [facility] 4 ALT 21 12 - 78 U/L [facility] 4 D Bilirubin 0.1 0.0 - 0.2 mg/dL [facility] 4 Specimen Blood Performing Organization Address [facility] Phone Number [employer] [facility] 4 * THYROID PEROXIDASE (TPO) AB (09/27/2017 5:07 PM) Thy Perox (TPO) Ab 120 LABORATORY Reference range: 0 to 34 [employer]PORATION OF Unit: IU/mL NICOLETTE (H) Performing Organization Address [facility] Phone Number [employer] OF [address] [place] [address] NICOLETTE 145 * THYROID STIM IMMUN (09/27/2017 5:07 PM) Thyroid Stim Immun (note) LABORATORY RESULT: 2.80 High [employer]POR[employer] OF UNIT: IU/L NICOLETTE REFERENCE INTERVAL: 0.00-0.55 Specimen Blood Performing Organization Address [facility] Phone Number [employer] [address] [place] [address] NICOLETTE 145 * TOTAL T3 (09/27/2017 5:07 PM) Total T3 >800 (HH) 87 - 178 ng/dL BT MAIN-STATION 4 Performing Organization Address [facility] Phone Number [employer] BT MAIN-STATION 4 * U/S THYROID/NECK (09/27/2017 4:27 PM) Impressions Performed At IMPRESSION: SMS Enlarged goiter heterogeneous thyroid with nodules and pseudonodular appearance of similar appearance without microcalcifications, but with increased vascularity suggestive of hyperthyroidism. REFERENCE: Casandra FN, Maxwell WD, Kishore EG, et al. ACR Thyroid Imaging, Reporting and Data System (TI-RADS): White Paper of the ACR TI-RADS Committee. J Am Digna Radiol. 2017; 14(5): [phone]. Signed By: Ha Joseph MD, 09/27/2017 4:31 PM Narrative Performed At EXAM: US THYROID SMS DATE: 09/27/2017 4:30 PM INDICATION:assess thyroid given hyperthyroidism ADDITIONAL INFORMATION: None. COMPARISON: None. TECHNIQUE: Multiplanar grayscale and color Doppler ultrasound of the neck were obtained in the area of the thyroid. FINDINGS: Thyroid parenchyma: Heterogeneous with increased vascularity. Right thyroid size: 7.9 x 2.7 x 3.1 cm. Enlarged. Left thyroid size: 8.7 x 3.2 x 3.1 cm. Enlarged. Isthmus thickness: 0.77 cm. Enlarged. Thyroid nodules: Pseudonodular appearance with two suspected similar appearing isoechoic nodules measuring 2.7 x 1.7 and 2.5 x 1.8 cm on the right from the superior to inferior pole. No definite microcalcifications. Suggestion of an isoechoic nodule measuring 2.9 x 3 x 3.1 cm. No microcalcifications. Bilateral tiny benign cystic nodules. Cervical lymph nodes: Not enlarged. Procedure Note Interface, Rad/Mammog In - 09/27/2017 4:36 PM [employer]ATOR EXAM: US THYROID DATE: 09/27/2017 4:30 PM INDICATION: assess thyroid given hyperthyroidism ADDITIONAL INFORMATION: None. COMPARISON: None. TECHNIQUE: Multiplanar grayscale and color Doppler ultrasound of the neck were obtained in the area of the thyroid. FINDINGS: Thyroid parenchyma: Heterogeneous with increased vascularity. Right thyroid size: 7.9 x 2.7 x 3.1 cm. Enlarged. Left thyroid size: 8.7 x 3.2 x 3.1 cm. Enlarged. Isthmus thickness: 0.77 cm. Enlarged. Thyroid nodules: Pseudonodular appearance with two suspected similar appearing isoechoic nodules measuring 2.7 x 1.7 and 2.5 x 1.8 cm on the right from the superior to inferior pole. No definite microcalcifications. Suggestion of an isoechoic nodule measuring 2.9 x 3 x 3.1 cm. No microcalcifications. Bilateral tiny benign cystic nodules. Cervical lymph nodes: Not enlarged. IMPRESSION IMPRESSION: Enlarged goiter heterogeneous thyroid with nodules and pseudonodular appearance of similar appearance without microcalcifications, but with increased vascularity suggestive of hyperthyroidism. REFERENCE: Casandra FN, Maxwell WD, Kishore EG, et al. ACR Thyroid Imaging, Reporting and Data System (TI-RADS): White Paper of the ACR TI-RADS Committee. J Am Digna Radiol. 2017; 14(5): [phone]. Signed By: Ha Joseph MD, 09/27/2017 4:31 PM Performing Organization Address City/State/Zipcode Phone Number SMS * U/S ABDOMEN (09/27/2017 12:18 PM) Addenda Addendum by Ha Joseph MD on 09/27/2017 4:38 PM Interrogation of the bladder demonstrate bladder wall thickening with lobulated appearance, with distal loop of nephroureteral stent, which could indicate chronic cystitis.Cine images demonstrate bladder wall thickening with heterogeneous and echogenic appearance, which could be related to chronic inflammation/infectious changes. Cannot exclude bladder wall malignancy. However, recommend correlation with cystoscopy and tissue diagnosis from bladder wall for better evaluation and to exclude malignancy. Bladder measures 4.3 x 6 x 3.7 cm, volume of 50 ml. Signed By: Ha Joseph MD, 09/27/2017 4:38 PM Impressions Performed At IMPRESSION: SMS 1.Moderate to severe left hydronephrosis. 2.Dilated common bile duct up to 12 mm. Can obtain further evaluation with MRCP. 3.Cholelithiasis without convincing evidence of cholecystitis. Findings were communicated to Dr. Corky Queen at 12:20 PM on 09/27/2017. This [facility] radiology report is a preliminary resident dictation until finalized by an attending.Changes to this preliminary report may occur in an additional preliminary or finalized version. Dictated By: Hesham Montaño MD, 09/27/2017 12:28 PM I have reviewed the study and agree with the findings in this report. Signed By: Ha Joseph MD, 09/27/2017 12:32 PM Narrative Performed At EXAM: US ABDOMEN COMPLETE SMS DATE: 09/27/2017 12:18 PM INDICATION: ureteral stent evaluation, fibroids. Recurrent UTI ADDITIONAL INFORMATION: None. COMPARISON: None. TECHNIQUE: Multiplanar grayscale and color Doppler ultrasound of the abdomen. FINDINGS: Liver: Craniocaudal length: 14.2 cm. Echogenicity: Normal. Surface: Normal. Mass (size and location): None. Main portal vein: Caliber: 1.0 cm. Flow: Hepatopetal. Bile ducts: Common bile duct diameter: 1.2 cm. Intrahepatic ducts: Dilated. Gallbladder: Contracted. Gallstones: Nonmobile stones are seen in the gallbladder. Gallbladder sludge: None. Gallbladder wall: 0.3 cm. Pericholecystic fluid: None. Sonographic Mathew sign: Absent. Pancreas: Head and uncinate process: Not seen. Body: Normal. Tail: Not seen. Spleen: Size: 9.8 x 4.4 x 4.5 cm. Mass or focal lesion (size and location): None. Right kidney: Size: 10.6 x 5.8 x 7.3 cm. Hydronephrosis: None. Echogenicity: Normal. Calculi: None. Cysts/Masses: None. Left kidney: Size: 11.8 x 6.5 x 6.0 cm. Hydronephrosis: Moderate to severe hydronephrosis. Portion of echogenic linear structure likely left nephroureteral stent is present. Echogenicity: Normal. Calculi: None. Cysts/Masses: None. Other: The stent extends from the renal pelvis to the urinary bladder. Abdominal aorta: Visible portions are normal. Inferior vena cava: Visible portions are normal. Free fluid: None. Other: Bladder distal loop of stent seen within lumen. Procedure Note Interface, Rad/Mammog In - 09/27/2017 12:37 PM [employer]ATOR EXAM: US ABDOMEN COMPLETE DATE: 09/27/2017 12:18 PM INDICATION: ureteral stent evaluation, fibroids. Recurrent UTI ADDITIONAL INFORMATION: None. COMPARISON: None. TECHNIQUE: Multiplanar grayscale and color Doppler ultrasound of the abdomen. FINDINGS: Liver: Craniocaudal length: 14.2 cm. Echogenicity: Normal. Surface: Normal. Mass (size and location): None. Main portal vein: Caliber: 1.0 cm. Flow: Hepatopetal. Bile ducts: Common bile duct diameter: 1.2 cm. Intrahepatic ducts: Dilated. Gallbladder: Contracted. Gallstones: Nonmobile stones are seen in the gallbladder. Gallbladder sludge: None. Gallbladder wall: 0.3 cm. Pericholecystic fluid: None. Sonographic Mathew sign: Absent. Pancreas: Head and uncinate process: Not seen. Body: Normal. Tail: Not seen. Spleen: Size: 9.8 x 4.4 x 4.5 cm. Mass or focal lesion (size and location): None. Right kidney: Size: 10.6 x 5.8 x 7.3 cm. Hydronephrosis: None. Echogenicity: Normal. Calculi: None. Cysts/Masses: None. Left kidney: Size: 11.8 x 6.5 x 6.0 cm. Hydronephrosis: Moderate to severe hydronephrosis. Portion of echogenic linear structure likely left nephroureteral stent is present. Echogenicity: Normal. Calculi: None. Cysts/Masses: None. Other: The stent extends from the renal pelvis to the urinary bladder. Abdominal aorta: Visible portions are normal. Inferior vena cava: Visible portions are normal. Free fluid: None. Other: Bladder distal loop of stent seen within lumen. IMPRESSION IMPRESSION: 1. Moderate to severe left hydronephrosis. 2. Dilated common bile duct up to 12 mm. Can obtain further evaluation with MRCP. 3. Cholelithiasis without convincing evidence of cholecystitis. Findings were communicated to Dr. Corky Queen at 12:20 PM on 09/27/2017. This [facility] radiology report is a preliminary resident dictation until finalized by an attending. Changes to this preliminary report may occur in an additional preliminary or finalized version. Dictated By: Hesham Montaño MD, 09/27/2017 12:28 PM I have reviewed the study and agree with the findings in this report. Signed By: Ha Joseph MD, 09/27/2017 12:32 PM Performing Organization Address City/State/Zipcode Phone Number SMS * URINE DRUG SCREEN (09/27/2017 11:01 AM) Amphetamine Negative NEG [facility] 1 Comment: Calibrated Standard: D-Methamphetamine Positive if urine level >gb=9052 ng/mL Barbiturate Negative NEG [facility] 1 Comment: Calibrated Standard: Secobarbital Positive if urine level is >ga=160 ng/mL Benzodiazepine Negative NEG [facility] 1 Comment: Calibrated Standard: Lormethazepam Positive if urine level is >rb=767 ng/mL Cannabinoid Negative NEG [facility] 1 Comment: Calibrated Standard: 11 nor-delta(9)-THC carboxylic a Positive if urine level >or=50 Cocaine Negative NEG [facility] 1 Comment: Calibrated Standard: Benzoylecgonine Positive if urine level >hm=039 Opiate, Ur Positive (A) NEG [facility] 1 Comment: Calibrated Standard: Morphine Positive if urine level >qb=989 PCP Negative NEG [facility] 1 Comment: Calibrated Standard: Phencyclidine Positive if urine level >or=25 Urine Toxicology Screen results are to be used only for Medical purposes. Specimen Urine Performing Organization Address [facility] Phone Number [facility] 1 * COMPREHENSIVE METABOLIC PANEL(DBIL NOT INCLUDED) (09/27/2017 10:04 AM) Albumin 2.7 (L) 3.4 - 5.0 g/dL [facility] Calcium 8.3 (L) 8.50 - 10.20 mg/dL [facility] 2 CO2 25 21 - 32 mmol/L [facility] 2 Chloride 104 98 - 107 mmol/L [facility] 2 Creatinine 0.23 (L) 0.60 - 1.30 mg/dL [facility] 2 Glucose 124 (H) 70 - 99 mg/dL [facility] 2 Alk Phos 217 (H) 45 - 117 U/L [facility] 2 Potassium 3.3 (L) 3.50 - 5.10 mmol/L [facility] 2 Sodium 137 136 - 145 mmol/L [facility] 2 ALT 22 12 - 78 U/L [facility] 2 AST 31 15 - 37 U/L [facility] 2 Urea Nitrogen 10 7 - 18 mg/dL [facility] 2 T Bilirubin 0.3 0.2 - 1.0 mg/dL [facility] 2 T Protein 7.2 6.4 - 8.2 g/dL [facility] 2 GFR, Estimated >60 mL/min/1.73 m2 [facility] 2 GFR, Estim, Afr-Am >60 mL/min/1.73 m2 [facility] 2 Anion Gap 8 [facility] 2 Specimen Blood Performing Organization Address [facility] Phone Number [facility] * PT/INR/PTT (09/27/2017 10:04 AM) PT 14.6 11.8 - 15.0 Seconds [facility] IN[facility] 1.1 [facility] 2 SUGGESTED THERAPEUTIC RANGES: INR 2.0-3.0 for MODERATE INTENSITY ANTICOAGULATION INR 2.5-3.5 for HIGH INTENSITY ANTICOAGULATION PTT 34.3 23.6 - 36.4 Seconds [facility] Specimen Blood Performing Organization Address [facility] Phone Number [facility] 2 * HEPATITIS PANEL (09/27/2017 10:04 AM) HCV IgG Negative NEG BT OUTPATIENT DRAW 2 HBsAg Negative NEG BT OUTPATIENT DRAW 2 HAV, IgM Negative NEG BT OUTPATIENT DRAW 2 HBcAb, IgM Negative NEG BT OUTPATIENT DRAW 2 Specimen Blood Performing Organization Address [facility] Phone Number MISYS BT OUTPATIENT DRAW 2 * BEDSIDE ULTRASOUND (09/27/2017 4:05 AM) Narrative Performed At Randy Vicente MD 11/08/2017 10:40 AM Bedside Ultrasound Date/Time: 09/26/2017 10:30 PM Performed by: RANDY VICENTE Authorized by: RANDY VICENTE Consent: Consent obtained:Verbal and emergent situation Consent given by:Patient Post-procedure details: Patient tolerance of procedure:Tolerated well, no immediate complications Comments: Procedure: Bedside Ultrasound(Limited Cardiac and IVC) Indication: sepsis Findings: Flat IVC, LV function hyperdynamic, no pericardial effusion. * VBG POC (09/27/2017 2:45 AM) Only the most recent of 2 results within the time period is included. pH, [place] POC 7.46 (H) 7.33 - 7.43 [facility]ST[facility] 1 pCO2, [place] POC 34.0 (L) 38.0 - 50.0 mm Hg [facility] 1 pO2, [place] POC 125 (H) 50 - 75 mm Hg [facility] 1 Base Excess, [place] POC 1 mmol/L [facility] 1 HCO3, [place] POC 24.2 22.0 - 26.0 mmol/L [facility] % Sat, [place] POC 99 (H) 60 - 85 % [facility] 1 Lactic Acid, [place] POC 1.66 0.4 - 2.0 mmol/L [facility] 1 TCO2, [place] POC 25 21 - 32 mmol/L [facility] 1 Performing Organization Address [facility] Phone Number [facility] 1 * XRAY CHEST 1 VIEW (09/26/2017 11:51 PM) Impressions Performed At IMPRESSION:No acute cardiopulmonary abnormality. SMS Signed By: April Daniel MD, 09/27/2017 12:33 AM Narrative Performed At EXAM: XR CHEST 1 VIEW SMS DATE: 09/26/2017 at 11:49 PM INDICATION: sepsis. Recurrent UTI COMPARISON: None TECHNIQUE: AP chest FINDINGS: Lines, tubes and hardware: None. Lungs and pleura: No pulmonary or pleural based abnormality is identified. Pulmonary vascularity is normal. Heart and mediastinum: The heart size is normal for technique.The mediastinal contours are normal. Bones: No acute bony abnormality is identified. Procedure Note Interface, Rad/Mammog In - 09/27/2017 12:38 AM [employer] EXAM: XR CHEST 1 VIEW DATE: 09/26/2017 at 11:49 PM INDICATION: sepsis. Recurrent UTI COMPARISON: None TECHNIQUE: AP chest FINDINGS: Lines, tubes and hardware: None. Lungs and pleura: No pulmonary or pleural based abnormality is identified. Pulmonary vascularity is normal. Heart and mediastinum: The heart size is normal for technique. The mediastinal contours are normal. Bones: No acute bony abnormality is identified. IMPRESSION IMPRESSION: No acute cardiopulmonary abnormality. Signed By: April Daniel MD, 09/27/2017 12:33 AM Performing Organization Address [facility] Phone Number SMS * BMP POC (09/26/2017 11:03 PM) CO2 POC 22Comment: Physician Notified 21 - 32 mmol/L [facility] MAIN-STATION 1 Chloride POC 98 98 - 107 mmol/L [facility] 1 Potassium POC 4.2 3.50 - 5.10 mmol/L [facility] 1 Sodium POC 137 136 - 145 mmol/L [facility] 1 Glucose POC 193 (H) 74 - 106 mg/dL [facility] 1 Urea Nitrogen POC 12 7 - 18 mg/dL [facility] 1 Creatinine POC <0.2 (L) 0.6 - 1.3 mg/dL [facility] 1 Calcium Ionized POC 1.15 1.15 - 1.29 mmol/L [facility] 1 Hemoglobin POC 12.6 12.0 - 16.0 g/dL [facility] 1 Hematocrit POC 37.0 37.0 - 47.0 % [facility] 1 GFR, Estimated Unable to calculate, mL/min/1.73 m2 [facility] 1 parameters incomplete GFR, Estim, Afr-Am Unable to calculate, mL/min/1.73 m2 [facility] 1 parameters incomplete Performing Organization Address [facility] Phone Number MISYS [facility] 1 * TSH (09/26/2017 11:00 PM) Only the most recent of 2 results within the time period is included. TSH <0.01 (L) 0.45 - 5.33 uIU/mL [facility] MAIN-STATION 4 Specimen Blood Performing Organization Address [facility] Phone Number MISYS [facility] MAIN-STATION 4 * FREE T4 (09/26/2017 11:00 PM) Only the most recent of 2 results within the time period is included. Free T4 >6.00 (H) 0.61 - 1.12 ng/dl [facility] MAIN-STATION 2 Comment: females: 1st Trimester-0.52-1.10 ng/dL 2nd Trimester=0.45-0.99 ng/dL 3rd Trimester=0.48-0.95 ng/dL Specimen Blood Performing Organization Address [facility] Phone Number MISYS [facility] MAIN-STATION 2 * UA CHEMISTRIES (09/26/2017 11:00 PM) Only the most recent of 2 results within the time period is included. Color Yellow [facility] 2 Clarity Cloudy [facility] 2 Spec [place] 1.020 1.001 - 1.035 [facility] 2 pH 5.0 5 - 8 [facility] 2 Protein 2+ (A) NEG [facility] 2 Glucose Negative NEG [facility] 2 Ketone Negative NEG [facility] 2 Bilirubin Negative NEG [facility] 2 Nitrate Negative NEG [facility] 2 Urobilinogen <1.0 0.2 - 1.0 EU/dL [facility] 2 Leukocyte 3+ (A) NEG [facility] 2 Blood 3+ (A) NEG [facility] 2 RBC >182 (H) 0 - 4 /HPF [facility] 2 WBC >182 (H) 0 - 5 /HPF [facility] 2 Bacteria Few [facility] 2 Yeast Present [facility] 2 Epithelial Cell 1 /HPF [facility] 2 Calc Ox Ivory Present [facility] 2 Specimen Urine Performing Organization Address [facility] Phone Number MISYS [facility] 2 * URINE CULTURE (09/26/2017 11:00 PM) Only the most recent of 2 results within the time period is included. Spec Description Clean catch urine [facility]PATIENT DRAW 3 Order Comments None [facility] 3 Culture No growth 2 days BT MICROBIOLOGY Report Status Final 09/29/2017 [facility] MICROBIOLOGY Specimen Urine clean catch - CLEAN CATCH URINE Performing Organization Address [facility] Phone Number MISYS [facility] OUTPATIENT DRAW 3 [facility] MICROBIOLOGY * BLOOD CULTURE (09/26/2017 11:00 PM) Only the most recent of 2 results within the time period is included. 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: [id number] :[id number] 10-26 Requested By: Order Number: Ravi jenkins MD: aJmes BRIGHT Measurements Intervals [place] Rate: 135 P: 52 MI: 164 QRS: 27 QRSD: 81 T:56 QT: 291 QTc:437 Interpretive Statements SINUS TACHYCARDIA POSSIBLE LEFT ATRIAL ENLARGEMENT Poor anterior R wave progression Technically Poor Tracing affects interpretation Abnormal ECG Electronically Signed On 09-27-17 07:49:15 [employer]SERVATOR by James BRIGHT Performing Organization Address [facility] Phone Number [facility] * U/S PELVIS NON-OB (09/24/2017 12:20 PM) Impressions Performed At IMPRESSION: SMS 1.Large central fibroid with likely a submucosal component. 2.Right adnexal lesion, likely pedunculated subserosal fibroid. 3.Nonvisualization of the left ovary, likely due to shadowing from leiomyomata. Signed By: Gordon Nunez MD, 09/24/2017 1:34 PM Narrative Performed At EXAM: US PELVIS TRANSABDOMINAL SMS EXAM: US PELVIS TRANSVAGINAL DATE: 09/24/2017 at 1118 hours INDICATION: Pelvic pain. Uterine leiomyoma, unspecified location ADDITIONAL INFORMATION: None. COMPARISON: None. TECHNIQUE:Multiplanar grayscale and color Doppler ultrasound of the pelvis were obtained: Transabdominally through a distended urinary bladder. Transvaginally postvoid. FINDINGS: Uterus/Myometrium: Size: 10.7 x 8.5 x 7.6 cm Orientation: Anteverted. Echogenicity: Normal. Masses: *Large central fibroid with likely submucosal component is 9.2 x 8.4 x 6.5 cm. *Partially visualized right adnexal lesion is most consistent with a pedunculated fibroid measuring 6.7 cm in largest diameter. Cervix: Normal. Endometrium: Not well seen, likely obscured by large central fibroid with possible submucosal component. Right ovary: Size: 2.7 x 1.8 x 1.1 cm Cysts/Masses: None. Left ovary: Not seen. Adnexa: Right adnexal lesion, likely pedunculated fibroid, as detailed above. Free fluid: None. Other: None. Procedure Note Interface, Rad/Mammog In - 09/24/2017 1:39 PM [employer]SERVATOR EXAM: US PELVIS TRANSABDOMINAL EXAM: US PELVIS TRANSVAGINAL DATE: 09/24/2017 at 1118 hours INDICATION: Pelvic pain. Uterine leiomyoma, unspecified location ADDITIONAL INFORMATION: None. COMPARISON: None. TECHNIQUE: Multiplanar grayscale and color Doppler ultrasound of the pelvis were obtained: Transabdominally through a distended urinary bladder. Transvaginally postvoid. FINDINGS: Uterus/Myometrium: Size: 10.7 x 8.5 x 7.6 cm Orientation: Anteverted. Echogenicity: Normal. Masses: * Large central fibroid with likely submucosal component is 9.2 x 8.4 x 6.5 cm. * Partially visualized right adnexal lesion is most consistent with a pedunculated fibroid measuring 6.7 cm in largest diameter. Cervix: Normal. Endometrium: Not well seen, likely obscured by large central fibroid with possible submucosal component. Right ovary: Size: 2.7 x 1.8 x 1.1 cm Cysts/Masses: None. Left ovary: Not seen. Adnexa: Right adnexal lesion, likely pedunculated fibroid, as detailed above. Free fluid: None. Other: None. IMPRESSION IMPRESSION: 1. Large central fibroid with likely a submucosal component. 2. Right adnexal lesion, likely pedunculated subserosal fibroid. 3. Nonvisualization of the left ovary, likely due to shadowing from leiomyomata. Signed By: Gordon Nunez MD, 09/24/2017 1:34 PM Performing Organization Address City/State/Zipcode Phone Number SMS * U/S TRANSVAGINAL (09/24/2017 12:20 PM) Impressions Performed At IMPRESSION: SMS 1.Large central fibroid with likely a submucosal component. 2.Right adnexal lesion, likely pedunculated subserosal fibroid. 3.Nonvisualization of the left ovary, likely due to shadowing from leiomyomata. Signed By: Gordon Nunez MD, 09/24/2017 1:34 PM Narrative Performed At EXAM: US PELVIS TRANSABDOMINAL SMS EXAM: US PELVIS TRANSVAGINAL DATE: 09/24/2017 at 1118 hours INDICATION: Pelvic pain. Uterine leiomyoma, unspecified location ADDITIONAL INFORMATION: None. COMPARISON: None. TECHNIQUE:Multiplanar grayscale and color Doppler ultrasound of the pelvis were obtained: Transabdominally through a distended urinary bladder. Transvaginally postvoid. FINDINGS: Uterus/Myometrium: Size: 10.7 x 8.5 x 7.6 cm Orientation: Anteverted. Echogenicity: Normal. Masses: *Large central fibroid with likely submucosal component is 9.2 x 8.4 x 6.5 cm. *Partially visualized right adnexal lesion is most consistent with a pedunculated fibroid measuring 6.7 cm in largest diameter. Cervix: Normal. Endometrium: Not well seen, likely obscured by large central fibroid with possible submucosal component. Right ovary: Size: 2.7 x 1.8 x 1.1 cm Cysts/Masses: None. Left ovary: Not seen. Adnexa: Right adnexal lesion, likely pedunculated fibroid, as detailed above. Free fluid: None. Other: None. Procedure Note Interface, Rad/Mammog In - 09/24/2017 1:39 PM [employer] CONSERVATOR EXAM: US PELVIS TRANSABDOMINAL EXAM: US PELVIS TRANSVAGINAL DATE: 09/24/2017 at 1118 hours INDICATION: Pelvic pain. Uterine leiomyoma, unspecified location ADDITIONAL INFORMATION: None. COMPARISON: None. TECHNIQUE: Multiplanar grayscale and color Doppler ultrasound of the pelvis were obtained: Transabdominally through a distended urinary bladder. Transvaginally postvoid. FINDINGS: Uterus/Myometrium: Size: 10.7 x 8.5 x 7.6 cm Orientation: Anteverted. Echogenicity: Normal. Masses: * Large central fibroid with likely submucosal component is 9.2 x 8.4 x 6.5 cm. * Partially visualized right adnexal lesion is most consistent with a pedunculated fibroid measuring 6.7 cm in largest diameter. Cervix: Normal. Endometrium: Not well seen, likely obscured by large central fibroid with possible submucosal component. Right ovary: Size: 2.7 x 1.8 x 1.1 cm Cysts/Masses: None. Left ovary: Not seen. Adnexa: Right adnexal lesion, likely pedunculated fibroid, as detailed above. Free fluid: None. Other: None. IMPRESSION IMPRESSION: 1. Large central fibroid with likely a submucosal component. 2. Right adnexal lesion, likely pedunculated subserosal fibroid. 3. Nonvisualization of the left ovary, likely due to shadowing from leiomyomata. Signed By: Gordon Nunez MD, 09/24/2017 1:34 PM Performing Organization Address [facility] [employer] Phone Number SMS * SYPHILIS SCREEN FOR INFECTION (09/23/2017 2:25 PM) Treponemal Ab Negative [facility] DIAGNOSTIC IMMUNOLOGY Final Report Negative [facility] DIAGNOSTIC IMMUNOLOGY Performing Organization Address [facility] Phone Number MISYS DIAGNOSTIC IMMUNOLOGY * HEMOGLOBIN A1C (09/23/2017 2:25 PM) Hemoglobin A1c 8.8 (H) 4.3 - 6.1 % LB MAIN-STATION 1 Est Average Gluc 205.9 mg/dL [facility] MAIN-STATION 1 Specimen Blood Performing Organization Address [facility] Phone Number MISYS [facility] MAIN-STATION 1 * HIV-1/HIV-2 DIAGNOSTIC/SYMPTOMATIC (09/23/2017 2:25 PM) HIV-1/HIV-2 Negative NEG [facility] MAIN-STATION 2 Performing Organization Address [facility] Phone Number MISYS [facility] MAIN-STATION 2 * CHLAM/GC DNA AMPLI (09/23/2017 1:33 PM) Chlamydia trach Negative NEG BT DIAGNOSTIC IMMUNOLOGY N gonorrhoeae Negative NEG BT DIAGNOSTIC Comment: IMMUNOLOGY This test utilizes [employer] Aptima Combo 2 Assay for target amplification of rRNA for the qualitative detection of Chlamydia trachomatis and Neisseria gonorrhea. Spec Description Endovervical [facility] MAIN-STATION 4 Specimen Other (Specify in Comments) - Endocervical Swab Performing Organization Address [facility] Phone Number NABEEL BT DIAGNOSTIC IMMUNOLOGY [facility]IN-STATION 4 * HPV HIGH-RISK (09/23/2017 1:30 PM) HPV High Risk Negative NEG BT DIAGNOSTIC Comment: IMMUNOLOGY The APTIMA HPV Assay is an in vitro nucleic acid amplification test for the qualitative detection of E6/E7 viral messenger RNA (mRNA) from 14 high-risk types of human papillomavirus (HPV) in cervical specimens. The high-risk HPV types detected by the assay include: 16,18,31,33,35,39,45,51,52,56, 58,59,66, and 68. Co[employer] Spec Number [id number] BT MOLECULAR PATHOLOGY Performing Organization Address [facility] Phone Number NABEEL DIAGNOSTIC IMMUNOLOGY BT MOLECULAR PATHOLOGY * [facility] CYTOLOGY PATHOLOGY (09/23/2017 1:30 PM) [facility] Cytology (note) JACLYNYS Name CHIKA BOJORQUEZ Date of 1975 Hospital Number [id number] [facility] CYTOPATHOLOGY Collected:09/23/2017 13:30 Received: 09/24/2017 10:16 FINAL DIAGNOSIS Cervicovaginal (liquid-based preparation): Satisfactory for evaluation Negative for intraepithelial lesion or malignancy Electronically Signed Out By BREA Garcia (ASCP) Clinical History Date of Last Menstrual Period: 09/02/2017 Menstrual History: Abnormal bleeding Other Clinical Conditions: Associated Diagnosis: Uterine leiomyoma, unspecified location Corresponding HPV Results: Negative Specimen Received: One ThinPrep Vial Educational Note: The pap smear/test is a screening test for cervical cancer.As with screening procedures, both false negative and false positive results may occur.Hence, the results should be interpreted in the context of patient's history and current clinical information. The slide has been analyzed by the automated ThinPrep Imaging System, [employer], [place], [place]. Performing Organization Address City/[facility] Phone Number NABEEL * WET MOUNT (09/23/2017 1:30 PM) Spec Description Vaginal [facility] MICROBIOLOGY Order Comments None [facility] MICROBIOLOGY Exam WBC's seen [facility] MICROBIOLOGY Epithelial cells Yeast No Clue cells seen No Trichomonas seen Bacteria present Report Status Final 09/23/2017 [facility] MICROBIOLOGY Specimen Genital, vaginal - VAGINAL Performing Organization Address [facility] Phone Number JACLYNYS LB MICROBIOLOGY * CLARISSA STAIN (09/23/2017 1:30 PM) Spec Description Vaginal [facility] MICROBIOLOGY Order Comments None [facility] MICROBIOLOGY Direct Exam Hyphal elements seen [facility] MICROBIOLOGY Report Status Final 09/23/2017 [facility] MICROBIOLOGY Specimen Genital, vaginal - VAGINAL Performing Organization Address [facility] Phone Number JACLYNYS [facility] MICROBIOLOGY after 05/01/2017
== END | disposition home or self-care (01) ==
LOC: OR 06:46
PROVIDERS: ATTEND Urology
DX: Z46.6 Encounter for fitting and adjustment of urinary device (principal); N13.30 Unspecified hydronephrosis; N39.0 Urinary tract infection, site not specified; E11.9 Type 2 diabetes mellitus without complications; Z91.19 Patient's noncompliance with other medical treatment and regimen; Z88.1 Allergy status to other antibiotic agents; Z88.8 Allergy status to other drugs, medicaments and biological substances; Z01.810 Encounter for preprocedural cardiovascular examination; Z01.812 Encounter for preprocedural laboratory examination; Z79.4 Long term (current) use of insulin
CPT/HCPCS: 36415 ×2; 52332; 80048; 81025; 82948; 93005; J1580; Q9967; 76000

== ENCOUNTER → 2018-10-01 | Outpatient (CLI) | payer OTHER ==
[~2018-10-01] MED LIST changes: -GENTAMICIN 80MG/NS 100 ML 100 ML IV ONE; -INSULIN REGULAR, HUMAN 100 UNIT/1 ML 3ML VIAL ONE; -IOPAMIDOL 610MG/1ML 300 MG/ML VIAL IV ONE; -PROPOFOL IV EMULSION 10 MG/ML 20 ML VIAL ONE; -SEVOFLURANE INHAL SOLN 250 ML PEN BTL ONE
--- NOTE | 2018-10-01 08:47 | Diagnostic Imaging Report ---
EXAMINATION: CHEST 2 VIEWS INDICATION: Pre-op. COMPARISON: None FINDINGS: TUBES and LINES: None. LUNGS: Lungs are well inflated. Lungs are clear. There is no evidence of pneumonia or pulmonary edema. PLEURA: No pleural effusion or pneumothorax. HEART AND MEDIASTINUM: The cardiomediastinal silhouette is unremarkable. BONES AND SOFT TISSUES: No acute osseous lesion. Soft tissues are unremarkable. UPPER ABDOMEN: No free air under the diaphragm. IMPRESSION: No acute radiographic abnormality. Signed by: Dr. Reji Hyman MD on 10/01/2018 8:44 AM
== END ==
LOC: RAD 07:34
PROVIDERS: ATTEND Internal Medicine
DX: Z01.818 Encounter for other preprocedural examination (principal); E04.9 Nontoxic goiter, unspecified
CPT/HCPCS: 71046

== ENCOUNTER 2019-02-11 16:34 | Inpatient (IN) | payer OTHER ==
[~2019-02-11] VITALS: Ht 154.9 cm; Wt 50.9 kg
[~2019-02-11 16:34] MED LIST changes: +AMITRIPTYLINE H25 MG PO; +LEVEMIR100 UNIT/1 SQ; +LEVOFLOXACIN250 MG PO; +PROPRANOLOL HCL80 MG PO; +ULTRAM50 MG PO; +[UNRECOGNIZED DRUG - OTHER] PO
--- OUTSIDE RECORDS SUMMARY | 2019-02-11 16:43 | XMS REPORT | Continuity of Care Document ---
Author Author [employer] Address Unknown Phone Unavailable Care Team Providers Care Brim Curler Name Role Phone Communication Intelligence Unavailable Unavailable Problems Problem Status Onset Date Classification Date Reported Comments Source PRBC Active 08/29/2018 [facility] K85.90 - ACUTE PANCREATITIS WITHOUT NEC Active 08/28/2018 AAKASH Crow Type 2 diabetes mellitus with ketoacidosis without coma 11/07/2017 02/05/2018 [facility] PELVIC PAIN Active 10/29/2017 [facility] Complicated UTI Active 09/27/2017 09/18/2018 [facility] Recurrent UTI Active 09/23/2017 09/18/2018 [facility] Uterine leiomyoma Active 09/23/2017 09/18/2018 [facility] Pelvic pain Active 09/23/2017 09/18/2018 [facility] Essential hypertension Active 09/23/2017 09/18/2018 [facility] Type 2 diabetes mellitus with complication, with long-term current use of insulin Active 09/23/2017 09/18/2018 [facility] Hyperthyroidism Active 09/23/2017 09/18/2018 [facility] ABD PAIN Active 03/09/2017 [facility] ABDOMINAL PAIN, SINUS TACHYCARDIA Active 03/09/2017 [facility] PYELONEPHRITIS, HYDRONEPHROSIS Active 12/27/2016 [facility] PYELONEPHRITIS, THYROTOXICOSIS, HYDROURE Active 12/27/2016 [facility] PANCREATIC PSEUDOCYSTS Active 09/10/2016 [facility] Severe malnutrition Active 08/27/2016 Problem 10/02/2018 [facility] AAKASH [place],[facility] PANCREATIC INFECTED PSAUDOCYSTS ABENEXAL Active 08/23/2016 [facility] LARGE ADNEXAL MASS Active 08/17/2016 [facility] MRSA1, 2 Active 08/06/2016 Problem 01/01/2017 Cyst fluid, 08/06/2016 Problem added by Discern Expert. [facility] MRSA2, 3 Active 08/06/2016 Problem 10/02/2018 Cyst fluid, 08/06/2016 Problem added by Discern Expert. [facility], AAKASH Crow,[facility] PANCREATITIS Active 07/05/2016 [facility] UPPER ABD PAIN Active 06/15/2016 [facility] THYROID STORM, ACUTE PANCREATITIS Active 06/15/2016 [facility] Goiter Active 07/29/2004 Problem 10/02/2018 [facility], AAKASH Crow,[facility] Gallbladder disease Resolved Problem 01/01/2017 [facility] Diabetes Active Problem 10/02/2018 [facility], AAKASH [place],[facility] Heartburn Resolved Problem 10/02/2018 [facility], AAKASH [place],[facility] Hypomagnesemia Active Problem 10/02/2018 [facility], AAKASH Crow,[facility] Hypophosphatemia Active Problem 10/02/2018 [facility], AAKASH [place],[facility] Gallbladder disease1 Active Problem 10/02/2018 Stones removed Jun 2017 [facility], AAKASH [place],[facility] Thyrotoxicosis, unspecified with thyrotoxic crisis or storm 02/05/2018 [facility] Unspecified abdominal pain 02/05/2018 [facility] Common bile duct dilation Active 09/18/2018 [facility] History of pancreatitis Active 09/18/2018 [facility] Microcytic anemia Active 09/18/2018 [facility] Hydroureteronephrosis Active 09/18/2018 [facility] NO SHOW ENCOUNTER Active 09/18/2018 [facility] Submucous leiomyoma of uterus Active 09/18/2018 [facility] Iron deficiency anemia, unspecified iron deficiency anemia type Active 09/18/2018 [facility] Uterine leiomyoma, unspecified location Active 09/18/2018 [facility] Tachycardia Active 09/18/2018 [facility] Yeast infection of the vagina Active 09/18/2018 [facility] DKA Active Problem 04/20/2018 [facility] Pain due to ureteral stent Active Problem 04/20/2018 [facility] Pyelonephritis Active Problem 04/20/2018 [facility] UTI Active Problem 04/20/2018 [facility] THYROTOXICOSIS, UNSPECIFIED WITH THYROTO Active [facility] ACUTE PANCREATITIS WITHOUT NECROSIS OR I Active [facility] ILLNESS, UNSPECIFIED Active [facility] OTHER SPECIFIED NONINFLAMMATORY DISORDER Active [facility] OTHER SPECIFIED CONGENITAL DEFORMITIES Active [facility] IRRITABLE BOWEL SYNDROME WITHOUT DIARRHE Active [facility] PSEUDOCYST OF PANCREAS Active [facility] TUBULO-INTERSTITIAL NEPHRITIS, NOT SPCF Active [facility] HYDRONEPHROSIS W URETERAL STRICTURE, NEC Active [facility] ACUTE PYELONEPHRITIS Active [facility] THYROTOXICOSIS, UNSP WITHOUT THYROTOXIC Active [facility] UNSPECIFIED ABDOMINAL PAIN Active [facility] TACHYCARDIA, UNSPECIFIED Active [facility] Medications Medication Details Route Status Patient Instructions Ordering Provider Order Date Source Benadryl 25 mg, 0.5 mL, Route: IV, Drug form: INJ, On Adm, Start date: 09/02/18 12:00:00 RECEPTION AGENT, Stop date: 09/02/18 21:00:00 CSTNotes: (Same as: Benadryl) Inactive 09/02/2018 [facility] Tylenol 650 mg, 2 tab, Route: PO, Drug form: TAB, On Adm, Start date: 09/02/18 12:00:00 RECEPTION AGENT, Stop date: 09/02/18 21:00:00 CSTNotes: Do not exceed 4 gm/day. (Same as: Tylenol) Inactive 09/02/2018 [facility] Benadryl 25 mg, 0.5 mL, Route: IV, Drug form: INJ, On Adm, Start date: 09/01/18 8:23:00 RECEPTION AGENT, Stop date: 09/02/18 23:00:00 CSTNotes: (Same as: Benadryl) Inactive 09/01/2018 [facility] Tylenol 650 mg, 2 tab, Route: PO, Drug form: TAB, On Adm, Start date: 09/01/18 8:22:00 RECEPTION AGENT, Stop date: 09/02/18 23:00:00 CSTNotes: Do not exceed 4 gm/day. (Same as: Tylenol) Inactive 09/01/2018 [facility] Dextrose 5% with 0.45% NaCl IV 1,000 mL 1,000 mL, Rate: 100 ml/hr, Infuse over: 10 hr, Route: IV, Dosing Weight 46.364 kg, Total Volume: 1,000, Start date: 10/29/17 23:57:00 CDT, Duration: 30 day, Stop date: 11/28/17 23:56:00 CDT, 1.42, m2 No Longer Active 10/30/2017 [facility] Dextrose 50% Syringe 25 gm, Route: IVP, Dosing Weight 46.364, kg, ONCE, STAT, Start date: 10/29/17 23:56:00 CDT, Stop date: 10/29/17 23:56:00 CDT No Longer Active 10/30/2017 [facility] 3 ML insulin detemir 100 UNT/ML Prefilled Syringe [Levemir] 30 unit, SUB-Q, Bedtime, 0 Refill(s) Active 10/30/2017 [facility] 3 ML Insulin, Aspart, Human 100 UNT/ML Pen Injector [NovoLog] 15 unit, SUB-Q, TID-Before Meals, 0 Refill(s) Active 10/30/2017 [facility] propranolol 20 mg oral tablet 20 mg=1 tab, PO, BID, 0 Refill(s) Active 10/30/2017 [facility] Magnesium Sulfate 1 gm, 100 mL, Route: IVPB, Drug form: INJ, PRN, Dosing Weight 46.364, kg, PRN Abnormal Lab Result, Start date: 10/29/17 21:33:00 CDT, Duration: 30 day, Stop date: 11/28/17 21:32:00 CDTNotes: WASTE: F/P - Sink; E - Municipal Trash Bin No Longer Active 10/30/2017 [facility] Potassium Chloride 10 mEq, 100 mL, Route: IVPB, Drug form: INJ, PRN, Dosing Weight 46.364, kg, PRN Abnormal Lab Result, Via peripheral line, Start date: 10/29/17 21:33:00 CDT, Duration: 30 day, Stop date: 11/28/17 21:32:00 CDTNotes: Infuse at a rate of 10 mEq/hr. (Same as: KCL) No Longer Active 10/30/2017 [facility] potassium phosphate 15 mmol, 5 mL, Route: IVPB, PRN, Dosing Weight 46.364, kg, PRN Abnormal Lab Result, Start date: 10/29/17 21:33:00 CDT, Duration: 30 day, Stop date: 11/28/17 21:32:00 CDTNotes: (Same as: K Phosphate.) 1 mMol phoshate has 1.47 mEq potassium Infuse over 4 hours No Longer Active 10/30/2017 [facility] Dextrose 50% Syringe 12.5 gm, 25 mL, Route: IVP, Drug Form: INJ, Dosing Weight 46.364, kg, PRN, PRN Blood Glucose Results, Start date: 10/29/17 21:33:00 CDT, Duration: 30 day, Stop date: 11/28/17 21:32:00 CDT No Longer Active 10/30/2017 [facility] Glucagon 1 mg, Route: IM, Drug form: PDR/INJ, PRN, Dosing Weight 46.364, kg, PRN Blood Glucose Results, Start date: 10/29/17 21:33:00 CDT, Duration: 30 day, Stop date: 11/28/17 21:32:00 CDT No Longer Active 10/30/2017 [facility] Insulin (regular) Titrate IV additive 100 unit + Sodium Chloride 0.9% (titrate) 99 mL 99 mL, Rate: Titrate, Dosing Weight 46.364, kg, Route: IV, Total Volume: 100, Priority: Routine, Start Date: 10/29/17 21:33:00 CDT, Duration: 30 day, Stop date: 11/28/17 21:32:00 CDT, Replace Every: 24 hrNotes: (Same as: Humulin R and NovoLIN R) WASTE: F/P - Black; E - Municipal Trash Bin (Do not shake) No Longer Active 10/30/2017 [facility] D5NS 1,000 mL 1,000 mL, Rate: 250 ml/hr, Infuse over: 4 hr, Route: IV, Dosing Weight 46.364 kg, Total Volume: 1,000, Start date: 10/29/17 21:33:00 CDT, Duration: 30 day, Stop date: 11/28/17 21:32:00 CDT, 1.42, m2 No Longer Active 10/30/2017 [facility] Sodium Chloride 0.9% IV 1,000 mL 1,000 mL, Rate: 250 ml/hr, Infuse over: 4 hr, Route: IV, Dosing Weight 46.364 kg, Total Volume: 1,000, When Finger stick blood glucose values remain ABOVE 250 mg/dL administer until BG is less than 250 mg/dL., Start date: 10/29/17 21:33:00 CDT, Durati... No Longer Active 10/30/2017 [facility] Sodium Chloride 0.9% (Bolus) IV 1,000 mL, 1,000 ml/hr, Infuse Over: 1 hr, Route: IV, ONCE, Priority: STAT, Dosing Weight 46.364 kg, Start date: 10/29/17 21:27:00 CDT, Stop date: 10/29/17 21:27:00 CDT Inactive 10/30/2017 [facility] Zofran 4 mg, Route: IVP, Drug form: INJ, ONCE, Dosing Weight 46.364, kg, Priority: STAT, Start date: 10/29/17 21:27:00 CDT, Stop date: 10/29/17 21:27:00 CDT Inactive 10/30/2017 [facility] Morphine 4 mg, Route: IVP, ONCE, Dosing Weight 46.364, kg, Priority: STAT, Start date: 10/29/17 21:27:00 CDT, Stop date: 10/29/17 21:27:00 CDT Inactive 10/30/2017 [facility] esmolol 25,000 microgram, Route: IVP, ONCE, Dosing Weight 46.364, kg, Priority: STAT, Start date: 10/29/17 21:16:00 CDT, Stop date: 10/29/17 21:16:00 CDT Inactive 10/30/2017 [facility] Sodium Chloride 0.9% (Bolus) IV 1,000 mL, 1,000 ml/hr, Infuse Over: 1 hr, Route: IV, ONCE, Priority: STAT, Dosing Weight 46.364 kg, Start date: 10/29/17 21:16:00 CDT, Stop date: 10/29/17 21:16:00 CDT Inactive 10/30/2017 [facility] esmolol 25,000 microgram, Route: IVP, ONCE, Dosing Weight 46.364, kg, Priority: STAT, Start date: 10/29/17 21:15:00 CDT, Stop date: 10/29/17 21:15:00 CDT Inactive 10/30/2017 [facility] Methimazole 30 mg, Route: PO, ONCE, Dosing Weight 46.364, kg, Start date: 10/29/17 20:57:00 CDT, Stop date: 10/29/17 20:57:00 CDT Inactive 10/30/2017 [facility] Saline Flush 0.9% 10 mL, Route: IVP, Drug Form: INJ, Dosing Weight 46.364, kg, PRN, PRN Line Flush, Start date: 10/29/17 20:14:00 CDT, Duration: 30 day, Stop date: 11/28/17 20:13:00 CDTNotes: (Same as: BD Posiflush) No Longer Active 10/30/2017 [facility] ferrous sulfate 325 mg (65 mg iron) tablet Take 1 tablet by mouth daily for 90 days. Oral No Longer Active 10/01/2017 [facility] methIMAzole (TAPAZOLE) 5 mg tablet Take 15 mg by mouth 3 times daily. Oral No Longer Active 09/30/2017 [facility] Metoprolol-Hydrochlorothiazide 100-25 mg per tablet Take 1 tablet by mouth daily. Oral No Longer Active 09/30/2017 [facility] metoprolol tartrate (LOPRESSOR) 25 mg tablet Take 25 mg by mouth 2 times daily. Oral No Longer Active 09/30/2017 [facility] sulfamethoxazole-trimethoprim (BACTRIM DS) 800-160 mg per tablet Take 1 tablet by mouth 2 times daily for 4 days. Oral Inactive 09/30/2017 [facility] methIMAzole (TAPAZOLE) 10 mg tablet Take 2 tablets by mouth 3 times daily for 90 days. Oral No Longer Active 09/30/2017 [facility] propranolol (INDERAL) 10 mg tablet Take 3 tablets by mouth 3 times daily for 90 days. Oral Inactive 09/30/2017 [facility] traMADol (ULTRAM) 50 mg tablet Take 2 tablets by mouth every 6 hours as needed for up to 7 days for Pain. Oral No Longer Active 09/30/2017 [facility] fluconazole (DIFLUCAN) 150 mg tablet Take 1 tablet by mouth once for 1 dose. Oral No Longer Active 09/25/2017 [facility] ibuprofen (MOTRIN) 800 mg tablet Take 1 tablet by mouth every 8 hours as needed for Pain. Oral Active 09/23/2017 [facility] traMADol (ULTRAM) 50 mg tablet Take 1 tablet by mouth every 8 hours as needed for Pain. Oral No Longer Active 09/23/2017 [facility] Acetaminophen With Codeine (Tylenol With Codeine #3 Tablet) 1 Each Tablet Every 4 Hours as needed for Pain Active [facility] 09/03/2017 [facility] Ferrous Sulfate 325 Mg Tablet Daily Active [facility] 09/03/2017 [facility] Nitrofurantoin Macrocrystal (Nitrofurantoin) 100 Mg Capsule Twice A Day Active [place] 09/03/2017 [facility] Propranolol Hcl 40 Mg Tablet Every 8 Hours Active [facility] 09/03/2017 [facility] Insulin Detemir 100 Unit/Ml Pen Bedtime Active [facility] 08/03/2017 [facility] Methimazole 5 Mg Tablet Three Times A Day Active [facility] 08/03/2017 [facility] Tramadol Hcl (Ultram 50MG*) 50 Mg Tab Daily Active [facility] 08/03/2017 [facility] Ferrous Sulfate (Feosol) 325 Mg Tablet, 325 Mg Oral Daily Active [facility] 08/03/2017 [facility] Methimazole 10 Mg Tablet, 25 Mg Oral Daily Active 08/03/2017 [facility] Metoprolol Tartrate (Lopressor) 25 Mg Tab, 50 Mg Oral Twice A Day Active [facility] 08/03/2017 [facility] Metoprolol Tartrate 25 Mg Tablet, 25 Mg Oral Daily Active 08/03/2017 [facility] Insulin Aspart (Novolog) 100 Units/1 Ml Inj, Active 07/31/2017 [facility] Insulin Glargine (Lantus 3ML Pen) 100 Units/1 Ml Inj, 8 Units Subcutaneously Bedtime Active 07/31/2017 [facility] Methimazole 10 Mg Tablet, 10 Mg Oral Three Times A Day Active 07/31/2017 [facility] Metoprolol Succinate 25 Mg Tab.er.24h, 25 Mg Oral Active 07/31/2017 [facility] Propranolol Hcl 40 Mg Tablet, 40 Mg Oral Every 8 Hours Active 04/11/2017 [facility] methimazole 10 mg oral tablet 10 mg, PO, Q8H, # 90 tab, 0 Refill(s) Active 03/20/2017 [facility] Insulin Aspart 100 unit/ml - (High CD) 3 unit, SUB-Q, TID- Before Meals, Check blood sugar before breakfast, lunch, and dinner, and inject correction doses: Inject 3 unit if Sugar 150-199, Inject 6 units if Sugar 200- 249, Inject 9 units if Sugar 250-299, Inject 12 units if Sugar 300-349, In... Active 03/20/2017 [facility] Insulin Glargine 100 UNT/ML Injectable Solution 8 unit, SUB-Q, Bedtime, # 10 mL, 0 Refill(s) Active 03/20/2017 [facility] metoprolol tartrate 25 mg oral tablet 25 mg=1 tab, PO, BID, # 60 tab, 0 Refill(s) Active 03/20/2017 [facility] metoprolol tartrate 25 mg, 1 tab, Route: PO, Drug form: TAB, BID, Dosing Weight 35.5, kg, Start date: 03/16/17 17:00:00 CDT, Duration: 30 day, Stop date: 04/15/17 9:00:00 CDTNotes: (Same as: Lopressor) No Longer Active 03/16/2017 [facility] Potassium Chloride 10 mEq, 100 mL, Route: IVPB, Drug form: INJ, Q1H, Dosing Weight 35.5, kg, Total Dose=40 meq, Start date: 03/16/17 11:00:00 CDT, Duration: 4 doses or times, Stop date: 03/16/17 14:00:00 CDT, Peripheral LineNotes: Infuse at a rate of 10 mEq/hr. (Same as: KCL) Inactive 03/16/2017 [facility] potassium chloride 20 mEq oral tablet, extended release 40 mEq, 2 tab, Route: PO, Drug form: ERTAB, ONCE, Dosing Weight 35.5, kg, Start date: 03/16/17 10:11:00 CDT, Stop date: 03/16/17 10:11:00 CDTNotes: (Same as: K- Dur 20) "Do Not Crush" With food and full glass of water Inactive 03/16/2017 [facility] insulin glargine 8 unit, 0.08 mL, Route: SUB-Q, Drug form: SOLN, Bedtime, Start date: 03/15/17 21:00:00 CDT, Duration: 30 day, Stop date: 04/13/17 21:00:00 CDTNotes: (Same as: Lantus) Do not hold insulin without cont acting prescriber WASTE: F/P - Black; E - Municipal Trash Bin "single patient use only" No Longer Active 03/16/2017 [facility] sodium chloride 0.9% 1000 ml INJ 1,000 mL 1,000 mL, Rate: 125 ml/hr, Infuse over: 8 hr, Route: IV, Dosing Weight 35.5 kg, Total Volume: 1,000, Start date: 03/15/17 10:45:00 CDT, Duration: 30 day, Stop date: 04/14/17 10:44:00 CDT No Longer Active 03/15/2017 [facility] Metoprolol 5 mg, 5 mL, Route: IVP, Drug form: INJ, ONCE, Dosing Weight 35.5, kg, Start date: 03/15/17 10:45:00 CDT, Stop date: 03/15/17 10:45:00 CDTNotes: (Same as: Lopressor) Push over 2 minutes Inactive 03/15/2017 [facility] metoprolol tartrate 25 mg, 1 tab, Route: PO, Drug form: TAB, Q6H, Dosing Weight 35.5, kg, Priority: NOW, Start date: 03/15/17 10:37:00 CDT, Duration: 30 day, Stop date: 04/14/17 6:00:00 CDTNotes: (Same as: Lopressor) No Longer Active 03/15/2017 [facility] Levemir FlexPen 12 unit, Route: SUB-Q, Bedtime, Dosing Weight 35.5, kg, Start date: 03/14/17 22:52:00 CDT, Duration: 30 day, Stop date: 04/13/17 21:00:00 CDT No Longer Active 03/15/2017 [facility] insulin, isophane 5 unit, 0.05 mL, Route: SUB-Q, Drug form: INJ, ONCE, Dosing Weight 35.5, kg, Priority: NOW, Start date: 03/14/17 13:00:00 CDT, Stop date: 03/14/17 13:00:00 CDTNotes: Roll in palms of hands gently; Do not shake vigorously. (Same as: NovoLIN N, Humulin N) Do not hold insulin without contacting prescriber "single patient use only" WASTE: F/P - Black; E - Municipal Trash Bin Stable for 14 days at room temperature Expires in days from Date Inactive 03/14/2017 [facility] insulin glargine 8 unit, Route: SUB-Q, Drug form: SOLN, Bedtime, Start date: 03/14/17 0:00:00 CDT, Duration: 30 day, Stop date: 04/12/17 21:00:00 CDTNotes: (Same as: Lantus) Do not hold insulin without contacting prescriber WASTE: F/P - Black; E - Municipal Trash Bin "single patient use only" No Longer Active 03/14/2017 [facility] Insulin, Aspart, Human 5 unit, 0.05 mL, Route: SUB-Q, Drug form: SOLN, ONCE, Dosing Weight 35.5, kg, Priority: NOW, Start date: 03/11/17 22:01:00 CDT, Stop date: 03/11/17 22:01:00 CDTNotes: Roll in palms of hands gently; Do not shake vigorously. (Same as: NovoLOG) "single patient use only" WASTE: F/P - Black; E - Municipal Trash Bin Stable for 28 days at room temperature. Expires in days from Date Inactive 03/12/2017 [facility] Beneprotein 7 gm pkt 1 pkt, Route: PO, Drug Form: PWDR, Dosing Weight 35.5, kg, TID-Meals, Start date: 03/11/17 17:00:00 CDT, Duration: 30 day, Stop date: 04/10/17 12:00:00 CDTNotes: (Same as: Beneprotein) No Longer Active 03/11/2017 [facility] Insulin, Aspart, Human 3 unit, 0.03 mL, Route: SUB-Q, Drug form: SOLN, TID-Before Meals, Dosing Weight 35.5, kg, Start date: 03/11/17 11:30:00 CDT, Stop date: 04/10/17 7:30:00 CDTNotes: Non-Formulary Drug (Same as: NovoLOG) Roll in palms of hands gently; Do not shake vigorously. "single patient use only" WASTE: F/P - Black; E - Municipal Trash Bin Stable for 28 days at room temperature. Expires in days from Date No Longer Active 03/11/2017 [facility] Amoxicillin 875 MG / Clavulanate 125 MG Oral Tablet [Augmentin 875-mg] 1 tab, Route: PO, Drug Form: TAB, Dosing Weight 35.5, kg, Q12H, Start date: 03/11/17 9:12:00 CDT, Stop date: 03/18/17 9:00:00 CDTNotes: With food. (Same as: Augmentin 875) No Longer Active 03/11/2017 [facility] Famotidine 20 mg, 1 tab, Route: PO, Drug form: TAB, Q12H, Dosing Weight 35.5, kg, PRN Heartburn, Start date: 03/11/17 9:08:00 CDT, Duration: 30 day, Stop date: 04/10/17 9:07:00 CDTNotes: (Same as: Pepcid) No Longer Active 03/11/2017 [facility] Insulin, Aspart, Human 5 unit, 0.05 mL, Route: SUB-Q, Drug form: SOLN, TID-Before Meals, Dosing Weight 35.5, kg, PRN Blood Glucose Results, Start date: 03/11/17 9:03:00 CDT, Duration: 30 day, Stop date: 04/10/17 9:02:00 CDTNotes: Roll in palms of hands gently; Do not shake vigorously. (Same as: NovoLOG) "single patient use only" WASTE: F/P - Black; E - Municipal Trash Bin Stable for 28 days at room temperature. Expires in days from Date No Longer Active 03/11/2017 [facility] insulin, isophane 10 unit, Route: SUB-Q, Drug form: INJ, Q12H, Dosing Weight 35.5, kg, Start date: 03/11/17 9:03:00 CDT, Duration: 30 day, Stop date: 04/10/17 9:00:00 CDTNotes: Roll in palms of hands gently; Do not shake vigorously. (Same as: NovoLIN N, Humulin N) Do not hold insulin without contacting prescriber "single patient use only" WASTE: F/P - Black; E - Municipal Trash Bin Stable for 14 days at room temperature Expires in days from Date No Longer Active 03/11/2017 [facility] Dextrose 50% Syringe 25 gm, 50 mL, Route: IVP, Drug Form: INJ, Dosing Weight 35.5, kg, PRN, PRN Blood Glucose Results, Start date: 03/11/17 9:03:00 CDT, Duration: 30 day, Stop date: 04/10/17 9:02:00 CDT No Longer Active 03/11/2017 [facility] Glucagon 1 mg, Route: IM, Drug form: PDR/INJ, PRN, Dosing Weight 35.5, kg, PRN Blood Glucose Results, Start date: 03/11/17 9:03:00 CDT, Duration: 30 day, Stop date: 04/10/17 9:02:00 CDT No Longer Active 03/11/2017 [facility] Calcium Carbonate 500 MG Chewable Tablet 500 mg, 1 tab, Route: PO, Drug form: TAB, PRN, Dosing Weight 35.5, kg, PRN Abnormal Lab Result, FOR ICU USE ONLY, Start date: 03/11/17 8:36:00 CDT, Duration: 30 day, Stop date: 04/10/17 8:35:00 CDTNotes: 500mg elemental [id number] calcium carbonate. Contains 500mg elemental calcium. (Same As: OsCal 500) No Longer Active 03/11/2017 [facility] potassium phosphate 45 mmol, 15 mL, Route: IVPB, PRN, Dosing Weight 35.5, kg, PRN Abnormal Lab Result, Start date: 03/11/17 8:36:00 CDT, Duration: 30 day, Stop date: 04/10/17 8:35:00 CDT, FOR ICU USE ONLYNotes: (Same as: K Phosphate.) 1 mMol phoshate has 1.47 mEq potassium Infuse over 4 hours No Longer Active 03/11/2017 [facility] Magnesium Oxide 800 mg, 2 tab, Route: PO, Drug form: TAB, PRN, Dosing Weight 35.5, kg, PRN Abnormal Lab Result, FOR ICU USE ONLY, Start date: 03/11/17 8:36:00 CDT, Duration: 30 day, Stop date: 04/10/17 8:35:00 CDTNo renee: (Same as: Mag-Ox 400) Magnesium oxide [id number] elemental magnesium Dose=____mg magnesium oxide (___mg elemental magnesium) No Longer Active 03/11/2017 [facility] Calcium Gluconate 1 gm, 50 mL, Route: IVPB, Drug form: INJ, PRN, Dosing Weight 35.5, kg, PRN Abnormal Lab Result, Start date: 03/11/17 8:36:00 CDT, Duration: 30 day, Stop date: 04/10/17 8:35:00 CDT, FOR ICU USE ONLYNotes: WASTE: F/P - Sink; E - Municipal Trash Bin No Longer Active 03/11/2017 [facility] potassium phosphate-sodium phosphate 250 mg-280 mg-160 mg oral powder for reconstitution 2 pkt, Route: PO, Drug Form: PDR/REC, Dosing Weight 35.5, kg, PRN, PRN Abnormal Lab Result, FOR ICU USE ONLY, Start date: 03/11/17 8:36:00 CDT, Duration: 30 day, Stop date: 04/10/17 8:35:00 CDTNotes: (Same as: Phos-NaK) Each 1.5 gm pkt has 250mg phosphorous. Mix w/2.5oz water and stir. No Longer Active 03/11/2017 [facility] Magnesium Sulfate 2 gm, 50 mL, Route: IVPB, Drug form: INJ, PRN, Dosing Weight 35.5, kg, PRN Abnormal Lab Result, Start date: 03/11/17 8:36:00 CDT, Duration: 30 day, Stop date: 04/10/17 8:35:00 CDT, FOR ICU USE ONLYNotes: WASTE: F/P - Sink; E - Municipal Trash Bin No Longer Active 03/11/2017 [facility] sodium phosphate 45 mmol, 15 mL, Route: IVPB, PRN, Dosing Weight 35.5, kg, PRN Abnormal Lab Result, Start date: 03/11/17 8:36:00 CDT, Duration: 30 day, Stop date: 04/10/17 8:35:00 CDT, FOR ICU USE ONLY No Longer Active 03/11/2017 [facility] Potassium Chloride 20 mEq, 15 mL, Route: NJ, Drug form: LIQ, PRN, Dosing Weight 35.5, kg, PRN Abnormal Lab Result, Start date: 03/11/17 8:36:00 CDT, Duration: 30 day, Stop date: 04/10/17 8:35:00 CDT, FOR ICU USE ONLY No Longer Active 03/11/2017 [facility] Dextrose 50% Syringe 25 gm, 50 mL, Route: IVP, Drug Form: INJ, Dosing Weight 35.5, kg, PRN, PRN Blood Glucose Results, Start date: 03/11/17 1:31:00 CDT, Duration: 30 day, Stop date: 04/10/17 1:30:00 CDT Inactive 03/11/2017 [facility] Insulin regular 100 unit + sodium chloride 0.9% 100 mL INJ (for IV set) 99 mL 99 mL, Rate: 2 ml/hr, Infuse over: 50 hr, Dosing Weight 35.5, kg, Route: IVPB, Total Volume: 100, Start Date: 03/11/17 1:31:00 CDT, Duration: 30 day, Stop date: 04/10/17 1:30:00 CDT, Replace Every: 24 hrNotes: (Same as: Humulin R and NovoLIN R) WASTE: F/P - Black; E - Municipal Trash Bin (Do not shake) Inactive 03/11/2017 [facility] Magnesium Sulfate 2 gm, 50 mL, Route: IVPB, Drug form: INJ, ONCE, Dosing Weight 35.5, kg, Start date: 03/11/17 1:25:00 CDT, Duration: 2 hr, Stop date: 03/11/17 1:25:00 CDTNotes: WASTE: F/P - Sink; E - Municipal Trash Bin Inactive 03/11/2017 [facility] Dextrose 50% Syringe 25 gm, 50 mL, Route: IVP, Drug Form: INJ, Dosing Weight 35.5, kg, PRN, PRN Blood Glucose Results, Start date: 03/10/17 16:18:00 CDT, Duration: 30 day, Stop date: 04/09/17 16:17:00 CDT No Longer Active 03/10/2017 [facility] Insulin regular 100 unit + sodium chloride 0.9% INJ 99 mL 99 mL, Rate: Start Insulin Drip Per ICU Protocol, Dosing Weight 35.5, kg, Route: IV, Total Volume: 100, Start Date: 03/10/17 16:18:00 CDT, Stop date: 04/09/17 16:17:00 CDT, Replace Every: 24 hrNotes: (Same as: Humulin R and NovoLIN R) WASTE: F/P - Black; E - Municipal Trash Bin (Do not shake) No Longer Active 03/10/2017 [facility] Acetaminophen 325 MG / Hydrocodone Bitartrate 5 MG Oral Tablet [[place] 5/325] 1 tab, Route: PO, Drug Form: TAB, Dosing Weight 35.5, kg, Q6H, PRN Pain Score 1-5, Start date: 03/10/17 11:55:00 CDT, Duration: 30 day, Stop date: 04/09/17 11:54:00 CDTNotes: (Same as: [place] 325/5) Do not exceed 4gm/day of acetaminophen. No Longer Active 03/10/2017 [facility] Acetaminophen 325 MG / Hydrocodone Bitartrate 10 MG Oral Tablet [[place] 10/325] 1 tab, Route: PO, Drug Form: TAB, Dosing Weight 35.5, kg, Q6H, PRN Pain Score 6-10, Start date: 03/10/17 11:54:00 CDT, Duration: 30 day, Stop date: 04/09/17 11:53:00 CDTNotes: Do not exceed 4gm/day of acetaminophen. (Same as: [place] 325/10) No Longer Active 03/10/2017 [facility] Morphine 2 mg, 1 mL, Route: IVP, Drug form: SOLN, Q4H, Dosing Weight 35.5, kg, PRN Other -See Comment, Start date: 03/10/17 11:53:00 CDT, Duration: 30 day, Stop date: 04/09/17 11:52:00 CDT No Longer Active 03/10/2017 [facility] Insulin, Aspart, Human 8 unit, 0.08 mL, Route: SUB-Q, Drug form: SOLN, TID-Before Meals, Dosing Weight 35.5, kg, PRN Blood Glucose Results, Start date: 03/10/17 11:48:00 CDT, Duration: 30 day, Stop date: 04/09/17 11:47:00 CDTNotes: Roll in palms of hands gently; Do not shake vigorously. (Same as: NovoLOG) "single patient use only" WASTE: F/P - Black; E - Municipal Trash Bin Stable for 28 days at room temperature. Expires in days from Date Inactive 03/10/2017 [facility] Dextrose 50% Syringe 25 gm, 50 mL, Route: IVP, Drug Form: INJ, Dosing Weight 35.5, kg, PRN, PRN Blood Glucose Results, Start date: 03/10/17 9:51:00 CDT, Duration: 30 day, Stop date: 04/09/17 9:50:00 CDT Inactive 03/10/2017 [facility] Insulin (regular) Titrate IV additive 100 unit + sodium chloride 0.9% INJ 99 mL 99 mL, Rate: Titrate, Dosing Weight 35.5, kg, Route: IV, Total Volume: 100, Priority: Routine, Start Date: 03/10/17 9:51:00 CDT, Duration: 30 day, Stop date: 04/09/17 9:50:00 CDT, Replace Every: 24 hrNotes: (Same as: Humulin R and NovoLIN R) WASTE: F/P - Black; E - Municipal Trash Bin (Do not shake) Inactive 03/10/2017 [facility] Glucagon 1 mg, Route: IM, Drug form: PDR/INJ, PRN, Dosing Weight 35.5, kg, PRN Blood Glucose Results, Start date: 03/10/17 9:51:00 CDT, Duration: 30 day, Stop date: 04/09/17 9:50:00 CDT Inactive 03/10/2017 [facility] potassium phosphate 30 mmol, 10 mL, Route: IVPB, PRN, Dosing Weight 35.5, kg, PRN Abnormal Lab Result, Start date: 03/10/17 9:51:00 CDT, Duration: 30 day, Stop date: 04/09/17 9:50:00 CDTNotes: (Same as: K Phosphate.) 1 mMol phoshate has 1.47 mEq potassium Infuse over 4 hours Inactive 03/10/2017 [facility] Potassium Chloride 20 mEq, 100 mL, Route: IVPB, Drug form: INJ, PRN, Dosing Weight 35.5, kg, PRN Abnormal Lab Result, Via central line, Start date: 03/10/17 9:51:00 CDT, Duration: 30 day, Stop date: 04/09/17 9:50:00 CDTNotes: (Same as: KCL) Infuse no faster than 10 mEq/hr if given peripherally. Inactive 03/10/2017 [facility] Magnesium Sulfate 1 gm, 100 mL, Route: IVPB, Drug form: INJ, PRN, Dosing Weight 35.5, kg, PRN Abnormal Lab Result, Start date: 03/10/17 9:51:00 CDT, Duration: 30 day, Stop date: 04/09/17 9:50:00 CDTNotes: WASTE: F/P - Sink; E - Municipal Trash Bin Inactive 03/10/2017 [facility] D5NS 1,000 mL 1,000 mL, Rate: 250 ml/hr, Infuse over: 4 hr, Route: IV, Dosing Weight 35.5 kg, Total Volume: 1,000, Start date: 03/10/17 9:51:00 CDT, Duration: 30 day, Stop date: 04/09/17 9:50:00 CDT Inactive 03/10/2017 [facility] Saline Flush 0.9% 10 ml, Route: IVP, Drug Form: INJ, Dosing Weight 36.364, kg, Q12H, Start date: 03/10/17 9:00:00 CDT, Duration: 30 day, Stop date: 04/08/17 21:00:00 CDTNotes: (Same as: BD Posiflush) No Longer Active 03/10/2017 [facility] Famotidine 20 mg, 2 mL, Route: IVP, Drug form: INJ, Q12H, Dosing Weight 36.364, kg, Start date: 03/10/17 9:00:00 CDT, Duration: 30 day, Stop date: 04/08/17 21:00:00 CDTNotes: (Same as: Pepcid) Can be dilute in 5-10cc NS IVP: Slow IV push over at least 2 minutes. No Longer Active 03/10/2017 [facility] Propranolol 20 mg, 1 tab, Route: PO, Drug form: TAB, TID, Dosing Weight 35.5, kg, Start date: 03/10/17 9:00:00 CDT, Duration: 30 day, Stop date: 04/08/17 17:00:00 CDTNotes: Give with food. (Same as: Inderal) No Longer Active 03/10/2017 [facility] Mupirocin 0.02 MG/MG Topical Ointment 1 appl, Route: NASAL, Q12H, Drug form: OINT, Start date: 03/10/17 9:00:00 CDT, Duration: 5 day, Stop date: 03/14/17 21:00:00 CDT No Longer Active 03/10/2017 [facility] Morphine 1 mg, 0.5 mL, Route: IVP, Drug form: SOLN, Q2H, Dosing Weight 35.5, kg, PRN Pain Score 7-10, Start date: 03/10/17 8:56:00 CDT, Duration: 30 day, Stop date: 04/09/17 8:55:00 CDT No Longer Active 03/10/2017 [facility] Methimazole 10 mg, 1 tab, Route: PO, Drug form: TAB, Q8H, Dosing Weight 35.5, kg, Start date: 03/10/17 8:00:00 CDT, Duration: 30 day, Stop date: 04/09/17 0:00:00 CDT No Longer Active 03/10/2017 [facility] Amylases 454934 UNT / Endopeptidases 86091 UNT / Lipase 19763 UNT Enteric Coated Capsule [Creon 24] 1 cap, Route: PO, Drug Form: DRC, Dosing Weight 35.5, kg, TID-Before Meals, Start date: 03/10/17 7:30:00 CDT, Duration: 30 day, Stop date: 04/08/17 16:30:00 CDTNotes: Same as: Creon DRC 24 : lipase 2 4,000 units, protease 76,000 units, amylase 120,000 units No Longer Active 03/10/2017 [facility] Insulin, Aspart, Human 4 unit, 0.04 mL, Route: SUB-Q, Drug form: SOLN, TID-Before Meals, Dosing Weight 35.5, kg, PRN Blood Glucose Results, Start date: 03/10/17 6:39:00 CDT, Duration: 30 day, Stop date: 04/09/17 6:38:00 CDTNotes: Roll in palms of hands gently; Do not shake vigorously. (Same as: NovoLOG) "single patient use only" WASTE: F/P - Black; E - Municipal Trash Bin Stable for 28 days at room temperature. Expires in days from Date Inactive 03/10/2017 [facility] Glucagon 1 mg, Route: IM, Drug form: PDR/INJ, PRN, Dosing Weight 35.5, kg, PRN Blood Glucose Results, Start date: 03/10/17 6:39:00 CDT, Duration: 30 day, Stop date: 04/09/17 6:38:00 CDT Inactive 03/10/2017 [facility] Dextrose 50% Syringe 12.5 gm, 25 mL, Route: IVP, Drug Form: INJ, Dosing Weight 35.5, kg, PRN, PRN Blood Glucose Results, Start date: 03/10/17 6:39:00 CDT, Duration: 30 day, Stop date: 04/09/17 6:38:00 CDT Inactive 03/10/2017 [facility] D5W 1/2NS 1,000 mL 1,000 mL, Rate: 250 ml/hr, Infuse over: 4 hr, Route: IV, Dosing Weight 35.5 kg, Total Volume: 1,000, Start date: 03/10/17 2:29:00 CDT, Duration: 30 day, Stop date: 04/09/17 2:28:00 CDT Inactive 03/10/2017 [facility] sodium chloride 0.45% 1000 ml INJ 1,000 mL 1,000 mL, Rate: 250 ml/hr, Infuse over: 4 hr, Route: IV, Dosing Weight 35.5 kg, Total Volume: 1,000, Start date: 03/10/17 2:29:00 CDT, Duration: 30 day, Stop date: 04/09/17 2:28:00 CDT Inactive 03/10/2017 [facility] Calcium Carbonate 500 MG Chewable Tablet 500 mg, Route: PO, PRN, Dosing Weight 36.364, kg, PRN Abnormal Lab Result, FOR ICU USE ONLY, Start date: 03/10/17 0:59:00 CDT, Duration: 30 day, Stop date: 04/09/17 0:58:00 CDT Inactive 03/10/2017 [facility] Calcium Gluconate 1 gm, Route: IVPB, PRN, Dosing Weight 36.364, kg, PRN Abnormal Lab Result, Start date: 03/10/17 0:59:00 CDT, Duration: 30 day, Stop date: 04/09/17 0:58:00 CDT, FOR ICU USE ONLY Inactive 03/10/2017 [facility] potassium phosphate 45 mmol, Route: IVPB, PRN, Dosing Weight 36.364, kg, PRN Abnormal Lab Result, Start date: 03/10/17 0:59:00 CDT, Duration: 30 day, Stop date: 04/09/17 0:58:00 CDT, FOR ICU USE ONLY Inactive 03/10/2017 [facility] Magnesium Sulfate 2 gm, Route: IVPB, PRN, Dosing Weight 36.364, kg, PRN Abnormal Lab Result, Start date: 03/10/17 0:59:00 CDT, Duration: 30 day, Stop date: 04/09/17 0:58:00 CDT, FOR ICU USE ONLY Inactive 03/10/2017 [facility] potassium phosphate-sodium phosphate 250 mg-280 mg-160 mg oral powder for reconstitution 2 pkt, Route: PO, Dosing Weight 36.364, kg, PRN, PRN Abnormal Lab Result, FOR ICU USE ONLY, Start date: 03/10/17 0:59:00 CDT, Duration: 30 day, Stop date: 04/09/17 0:58:00 CDT Inactive 03/10/2017 [facility] Magnesium Oxide 800 mg, Route: PO, PRN, Dosing Weight 36.364, kg, PRN Abnormal Lab Result, FOR ICU USE ONLY, Start date: 03/10/17 0:59:00 CDT, Duration: 30 day, Stop date: 04/09/17 0:58:00 CDT Inactive 03/10/2017 [facility] sodium phosphate 15 mmol, Route: IVPB, PRN, Dosing Weight 36.364, kg, PRN Abnormal Lab Result, Start date: 03/10/17 0:59:00 CDT, Duration: 30 day, Stop date: 04/09/17 0:58:00 CDT, FOR ICU USE ONLY Inactive 03/10/2017 [facility] Potassium Chloride 20 mEq, Route: NJ, Drug form: LIQ, PRN, Dosing Weight 36.364, kg, PRN Abnormal Lab Result, Start date: 03/10/17 0:59:00 CDT, Duration: 30 day, Stop date: 04/09/17 0:58:00 CDT, FOR ICU USE ONLY Inactive 03/10/2017 [facility] Saline Flush 0.9% 10 ml, Route: IVP, Drug Form: INJ, Dosing Weight 36.364, kg, PRN, PRN Line Flush, Start date: 03/10/17 0:59:00 CDT, Duration: 30 day, Stop date: 04/09/17 0:58:00 CDTNotes: (Same as: BD Posiflush) Inactive 03/10/2017 [facility] Nystatin 100 UNT/MG Topical Powder 1 appl, Route: TOP, PRN, Drug form: PWDR, PRN For Fungal Prophylaxis, Start date: 03/10/17 0:59:00 CDT, Duration: 30 day, Stop date: 04/09/17 0:58:00 CDTNotes: (Same as:Mycostatin, Nilstat) For external use only. No Longer Active 03/10/2017 [facility] Dextrose 50% Syringe 12.5 gm, 25 mL, Route: IVP, Drug Form: INJ, Dosing Weight 36.364, kg, PRN, PRN Blood Glucose Results, Start date: 03/10/17 0:53:00 CDT, Duration: 30 day, Stop date: 04/09/17 0:52:00 CDT Inactive 03/10/2017 [facility] Glucagon 1 mg, Route: IM, Drug form: PDR/INJ, PRN, Dosing Weight 36.364, kg, PRN Blood Glucose Results, Start date: 03/10/17 0:53:00 CDT, Duration: 30 day, Stop date: 04/09/17 0:52:00 CDT Inactive 03/10/2017 [facility] Magnesium Sulfate 1 gm, Route: IVPB, PRN, Dosing Weight 36.364, kg, PRN Abnormal Lab Result, Start date: 03/10/17 0:53:00 CDT, Duration: 30 day, Stop date: 04/09/17 0:52:00 CDT Inactive 03/10/2017 [facility] Potassium Chloride 10 mEq, Route: IVPB, PRN, Dosing Weight 36.364, kg, PRN Abnormal Lab Result, Via peripheral line, Start date: 03/10/17 0:53:00 CDT, Duration: 30 day, Stop date: 04/09/17 0:52:00 CDT Inactive 03/10/2017 [facility] potassium phosphate 30 mmol, Route: IVPB, PRN, Dosing Weight 36.364, kg, PRN Abnormal Lab Result, Start date: 03/10/17 0:53:00 CDT, Duration: 30 day, Stop date: 04/09/17 0:52:00 CDT Inactive 03/10/2017 [facility] D5NS 1,000 mL 1,000 mL, Rate: 250 ml/hr, Infuse over: 4 hr, Route: IV, Dosing Weight 36.364 kg, Total Volume: 1,000, Start date: 03/10/17 0:53:00 CDT, Duration: 30 day, Stop date: 04/09/17 0:52:00 CDT Inactive 03/10/2017 [facility] Insulin (regular) Titrate IV additive 100 unit + Sodium Chloride 0.9% IV 99 mL 99 mL, Rate: Titrate, Dosing Weight 36.364, kg, Route: IV, Total Volume: 99, Priority: Routine, Start Date: 03/10/17 0:53:00 CDT, Duration: 30 day, Stop date: 04/09/17 0:52:00 CDT, Replace Every: 24 hr Inactive 03/10/2017 [facility] Potassium Chloride 10 mEq, 100 mL, Route: IVPB, Drug form: INJ, PRN, Dosing Weight 36.364, kg, PRN Abnormal Lab Result, Via peripheral line, Start date: 03/10/17 0:52:00 CDT, Duration: 30 day, Stop date: 04/09/17 0:51:00 CDTNotes: Infuse at a rate of 10 mEq/hr. (Same as: KCL) Inactive 03/10/2017 [facility] Magnesium Sulfate 1 gm, 100 mL, Route: IVPB, Drug form: INJ, PRN, Dosing Weight 36.364, kg, PRN Abnormal Lab Result, Start date: 03/10/17 0:52:00 CDT, Duration: 30 day, Stop date: 04/09/17 0:51:00 CDTNotes: WASTE: F/P - Sink; E - Municipal Trash Bin Inactive 03/10/2017 [facility] potassium phosphate 30 mmol, 10 mL, Route: IVPB, PRN, Dosing Weight 36.364, kg, PRN Abnormal Lab Result, Start date: 03/10/17 0:52:00 CDT, Duration: 30 day, Stop date: 04/09/17 0:51:00 CDTNotes: (Same as: K Phosphate.) 1 mMol phoshate has 1.47 mEq potassium Infuse over 4 hours Inactive 03/10/2017 [facility] D5NS 1,000 mL 1,000 mL, Rate: 250 ml/hr, Infuse over: 4 hr, Route: IV, Dosing Weight 36.364 kg, Total Volume: 1,000, Start date: 03/10/17 0:52:00 CDT, Duration: 30 day, Stop date: 04/09/17 0:51:00 CDT Inactive 03/10/2017 [facility] Insulin (regular) Titrate IV additive 100 unit + sodium chloride 0.9% INJ 99 mL 99 mL, Rate: Titrate, Dosing Weight 36.364, kg, Route: IV, Total Volume: 100, Priority: Routine, Start Date: 03/10/17 0:52:00 CDT, Duration: 30 day, Stop date: 04/09/17 0:51:00 CDT, Replace Every: 24 hrNotes: (Same as: Humulin R and NovoLIN R) WASTE: F/P - Black; E - Municipal Trash Bin (Do not shake) Inactive 03/10/2017 [facility] Dextrose 50% Syringe 12.5 gm, 25 mL, Route: IVP, Drug Form: INJ, Dosing Weight 36.364, kg, PRN, PRN Blood Glucose Results, Start date: 03/10/17 0:52:00 CDT, Duration: 30 day, Stop date: 04/09/17 0:51:00 CDT Inactive 03/10/2017 [facility] Glucagon 1 mg, Route: IM, Drug form: PDR/INJ, PRN, Dosing Weight 36.364, kg, PRN Blood Glucose Results, Start date: 03/10/17 0:52:00 CDT, Duration: 30 day, Stop date: 04/09/17 0:51:00 CDT Inactive 03/10/2017 [facility] morphine Sulfate 2 mg, 1 mL, Route: IVP, Drug form: INJ, ONCE, Dosing Weight 36.364, kg, Start date: 03/10/17 0:50:00 CDT, Stop date: 03/10/17 0:50:00 CDTNotes: (Same as:MORPhine Sulfate) Inactive 03/10/2017 [facility] Morphine 2 mg, 1 mL, Route: IVP, Drug form: SOLN, ONCE, Dosing Weight 36.364, kg, Start date: 03/10/17 0:28:00 CDT, Stop date: 03/10/17 0:28:00 CDT Inactive 03/10/2017 [facility] Enoxaparin 40 mg, 0.4 mL, Route: SUB-Q, Drug form: INJ, [id number], Dosing Weight 36.364, kg, Start date: 03/10/17 0:00:00 CDT, Duration: 30 day, Stop date: 04/08/17 0:00:00 CDTNotes: (Same as: Lovenox) No Longer Active 03/10/2017 [facility] Merrem 500 mg, Route: IVPB, ONCE, Dosing Weight 36.364, kg, Priority: STAT, Start date: 03/09/17 23:34:00 CDT, Duration: 1 doses or times, Stop date: 03/09/17 23:34:00 CDT, ABX Indication: Urinary Tract Infect ionNotes: Same as Merrem MEDICATION WASTE Product Size: 500 mg Product Wasted: ___ mg No Longer Active 03/10/2017 [facility] Metoprolol 2.5 mg, 2.5 mL, Route: IVP, Drug form: INJ, ONCE, Dosing Weight 36.364, kg, Priority: STAT, Start date: 03/09/17 20:30:00 CDT, Stop date: 03/09/17 20:30:00 CDTNotes: (Same as: Lopressor) Push over 2 minutes Inactive 03/10/2017 [facility] esmolol 2,500 mg, 250 mL, Rate: Titrate, Start Dose: 50 microgram/kg/min, Titration: 50 microgram/kg/min every 15 minutes, Goal(s): HR Notes: (Same as: Brevibloc) 10 mg/ml conc. No Longer Active 03/10/2017 [facility] Zofran 4 mg, 2 mL, Route: IVP, Drug form: INJ, ONCE, Dosing Weight 36.364, kg, Priority: STAT, Start date: 03/09/17 20:23:00 CDT, Stop date: 03/09/17 20:23:00 CDTNotes: (Same as: Zofran) MEDICATION WASTE Product Size: 4 mg Product Wasted: ___ mg No Longer Active 03/10/2017 [facility] Morphine 2 mg, 1 mL, Route: IVP, Drug form: INJ, ONCE, Dosing Weight 36.364, kg, Priority: STAT, Start date: 03/09/17 20:23:00 CDT, Stop date: 03/09/17 20:23:00 CDTNotes: (Same as:MORPhine Sulfate) Inactive 03/10/2017 [facility] NS (Bolus) IV 2,000 mL, 2,000 ml/hr, Infuse Over: 1 hr, Route: IV, 2,000, Drug form: INJ, ONCE, Priority: STAT, Dosing Weight 36.364 kg, Start date: 03/09/17 20:22:00 CDT, Duration: 1 doses or times, Stop date: 20:22:00 CDT Inactive 03/10/2017 [facility] Saline Flush 0.9% 10 mL, Route: IVP, Drug Form: INJ, Dosing Weight 44.9, kg, PRN, PRN Line Flush, Start date: 03/09/17 20:01:00 CDT, Duration: 30 day, Stop date: 04/08/17 20:00:00 CDTNotes: Same as: BD Posiflush Sterile No Longer Active 03/10/2017 [facility] Fluconazole 100 MG Oral Tablet [Diflucan] 100 mg=1 tab, PO, Daily, X 10 day, # 10 tab, 0 Refill(s), Pharmacy: [facility] [id number] Active 12/29/2016 [facility] glimepiride 4 MG Oral Tablet [Amaryl] 4 mg=1 tab, PO, Breakfast, # 30 tab, 0 Refill(s), Pharmacy: [facility] [id number] Active 12/29/2016 [facility] Amoxicillin 500 MG / Clavulanate 125 MG Oral Tablet [Augmentin 500-mg] 1 tab, PO, Q8H, # 21 tab, 0 Refill(s), Pharmacy: [facility] [id number] No Longer Active 12/29/2016 [facility] Acetaminophen 300 MG / Codeine Phosphate 30 MG Oral Tablet [Tylenol with Codeine #3] 1 - 2 tab, PO, Q4H, PRN Pain, X 4 day, # 36 tab, 0 Refill(s) Active 12/29/2016 [facility] Phenazopyridine hydrochloride 200 MG Oral Tablet [Pyridium] 200 mg=1 tab, PO, TID, PRN Dysuria, X 2 day, # 6 tab, 0 Refill(s), Pharmacy: [facility] [id number] No Longer Active 12/29/2016 [facility] ondansetron (ANES) Route: IV, Drug form: INJ, ONCE, Stop date: 12/28/16 13:23:00 CDT Inactive 12/28/2016 [facility] metoclopramide (ANES) Route: IV, Drug form: INJ, ONCE, Stop date: 12/28/16 13:23:00 CDT Inactive 12/28/2016 [facility] lidocaine (ANES) Route: IV, Drug form: INJ, ONCE, Stop date: 12/28/16 13:23:00 CDT Inactive 12/28/2016 [facility] propofol (ANES) Route: IV, Drug form: INJ, ONCE, Stop date: 12/28/16 13:23:00 CDT Inactive 12/28/2016 [facility] fentaNYL (ANES) Route: IV, Drug form: INJ, ONCE, Stop date: 12/28/16 13:23:00 CDT Inactive 12/28/2016 [facility] midazolam (ANES) Route: IV, Drug form: SOLN, ONCE, Stop date: 12/28/16 13:23:00 CDT Inactive 12/28/2016 [facility] sodium chloride 0.9% 1000 ml INJ (ANES) Route: IV, Total Volume: 1,000, Start date: 12/28/16 12:44:00 CDT, Stop date: 12/28/16 13:44:00 CDT Inactive 12/28/2016 [facility] Klor-Con 40 mEq, 2 tab, Route: PO, Drug form: ERTAB, ONCE, Dosing Weight 44.9, kg, Start date: 12/27/16 11:47:00 CDT, Stop date: 12/27/16 11:47:00 CDTNotes: (Same as: K-Dur 20) "Do Not Crush" With food and full glass of water Inactive 12/27/2016 [facility] insulin, isophane 5 unit, 0.05 mL, Route: SUB-Q, Drug form: INJ, Daily, Dosing Weight 44.9, kg, Start date: 12/27/16 9:00:00 CDT, Duration: 30 day, Stop date: 01/25/17 9:00:00 CDTNotes: Roll in palms of hands gently; Do not shake vigorously. (Same as: NovoLIN N, Humulin N) Do not hold insulin without contacting prescriber "single patient use only" WASTE: F/P - Black; E - [facility] Trash Bin Stable for 14 days at room temperature Expires in days from Date No Longer Active 12/27/2016 [facility] Inderal 20 mg, 2 tab, Route: PO, Drug form: TAB, QID, Dosing Weight 44.9, kg, Start date: 12/27/16 9:00:00 CDT, Duration: 30 day, Stop date: 01/25/17 21:00:00 CDTNotes: Give with food. (Same as: Inderal) No Longer Active 12/27/2016 [facility] potassium phosphate + sodium chloride 0.9% INJ 250 mL 15 mmol, 5 mL, Route: IVPB, PRN, Dosing Weight 44.9, kg, PRN Abnormal Lab Result, Start date: 12/27/16 8:05:00 CDT, Duration: 30 day, Stop date: 01/26/17 8:04:00 CDT, FOR ICU USE ONLYNotes: (Same as: K Phosphate.) 1 mMol phoshate has 1.47 mEq potassium Infuse over 4 hours No Longer Active 12/27/2016 [facility] potassium chloride 20 mEq, 100 mL, Route: IVPB, Drug form: INJ, PRN, Dosing Weight 44.9, kg, PRN Abnormal Lab Result, Via central line, Start date: 12/27/16 8:05:00 CDT, Duration: 30 day, Stop date: 01/26/17 8:04:00 CDT, FOR ICU USE ONLYNotes: (Same as: KCL) Infuse no faster than 10 mEq/hr if given peripherally. No Longer Active 12/27/2016 [facility] sodium phosphate + D5W 250 mL 15 mmol, 5 mL, Route: IVPB, PRN, Dosing Weight 44.9, kg, PRN Abnormal Lab Result, Start date: 12/27/16 8:05:00 CDT, Duration: 30 day, Stop date: 01/26/17 8:04:00 CDT, FOR ICU USE ONLY No Longer Active 12/27/2016 [facility] sodium phosphate + D5W 500 mL 45 mmol, 15 mL, Route: IVPB, PRN, Dosing Weight 44.9, kg, PRN Abnormal Lab Result, Start date: 12/27/16 8:05:00 CDT, Duration: 30 day, Stop date: 01/26/17 8:04:00 CDT, FOR ICU USE ONLY No Longer Active 12/27/2016 [facility] Calcium Carbonate 500 MG Chewable Tablet 1,000 mg, 2 tab, Route: CHEW, Drug form: CHEWTAB, PRN, Dosing Weight 44.9, kg, PRN Abnormal Lab Result, FOR ICU USE ONLY, Start date: 12/27/16 8:05:00 CDT, Duration: 30 day, Stop date: 01/26/17 8:04:00 CDTNotes: (Same As: Tums) Calcium Carbonate 500 je=325 mg elemental calcium Dose= mg calcium carbonate ( mg elemental calcium) No Longer Active 12/27/2016 [facility] Magnesium Sulfate 2 gm, 50 mL, Route: IVPB, Drug form: INJ, PRN, Dosing Weight 44.9, kg, PRN Abnormal Lab Result, Start date: 12/27/16 8:05:00 CDT, Duration: 30 day, Stop date: 01/26/17 8:04:00 CDT, FOR ICU USE ONLYNotes: WASTE: F/P - Sink; E - Municipal Trash Bin No Longer Active 12/27/2016 [facility] potassium phosphate-sodium phosphate 250 mg-280 mg-160 mg oral powder for reconstitution 2 pkt, Route: PO, Drug Form: PDR/REC, Dosing Weight 44.9, kg, PRN, PRN Abnormal Lab Result, FOR ICU USE ONLY, Start date: 12/27/16 8:05:00 CDT, Duration: 30 day, Stop date: 01/26/17 8:04:00 CDTNotes: (Same as: Phos-NaK) Each 1.5 gm pkt has 250mg phosphorous. Mix w/2.5oz water and stir. No Longer Active 12/27/2016 [facility] Magnesium Oxide 800 mg, 2 tab, Route: PO, Drug form: TAB, PRN, Dosing Weight 44.9, kg, PRN Abnormal Lab Result, FOR ICU USE ONLY, Start date: 12/27/16 8:05:00 CDT, Duration: 30 day, Stop date: 01/26/17 8:04:00 CDTNo renee: (Same as: Mag-Ox 400) Magnesium oxide [id number] elemental magnesium Dose=____mg magnesium oxide (___mg elemental magnesium) No Longer Active 12/27/2016 [facility] Calcium Gluconate 1 gm, 50 mL, Route: IVPB, Drug form: INJ, PRN, Dosing Weight 44.9, kg, PRN Abnormal Lab Result, Start date: 12/27/16 8:05:00 CDT, Duration: 30 day, Stop date: 01/26/17 8:04:00 CDT, FOR ICU USE ONLYNotes: WASTE: F/P - Sink; E - Municipal Trash Bin No Longer Active 12/27/2016 [facility] Methimazole 10 mg, 2 tab, Route: PO, Drug form: TAB, Q8H, Dosing Weight 44.9, kg, Start date: 12/27/16 8:00:00 CDT, Duration: 30 day, Stop date: 01/26/17 0:00:00 CDT No Longer Active 12/27/2016 [facility] Amylases 578093 UNT / Endopeptidases 52224 UNT / Lipase 59230 UNT Enteric Coated Capsule [Creon 24] 1 cap, Route: PO, Drug Form: DRC, Dosing Weight 44.9, kg, TID-Before Meals, Start date: 12/27/16 7:30:00 CDT, Duration: 30 day, Stop date: 01/25/17 16:30:00 CDTNotes: Same as: Santiago BUSTILLOS 24 : lipase 2 4,000 units, protease 76,000 units, amylase 120,000 units No Longer Active 12/27/2016 [facility] potassium chloride 40 mEq, 2 tab, Route: PO, Drug form: ERTAB, ONCE, Dosing Weight 44.9, kg, Start date: 12/27/16 6:21:00 CDT, Stop date: 12/27/16 6:21:00 CDTNotes: (Same as: K-Dur 20) "Do Not Crush" With food and full glass of water Inactive 12/27/2016 [facility] Zosyn 3.375 gm, Route: IVPB, ABXQ8H, Dosing Weight 44.9, kg, Start date: 12/27/16 4:00:00 CDT, Duration: 3 day, Stop date: 12/29/16 20:00:00 CDT, ABX Indication: Urinary Tract InfectionNotes: (Same as: Zosyn) Dosing based on Piperacillin component MEDICATION WASTE Product Size: 3375 mg Product Wasted: ___ mg No Longer Active 12/27/2016 [facility] Insulin, Aspart, Human 3 unit, 0.03 mL, Route: SUB-Q, Drug form: SOLN, Sliding Scale, Dosing Weight 44.9, kg, PRN Blood Glucose Results, Start date: 12/27/16 3:37:00 CDT, Duration: 30 day, Stop date: 01/26/17 3:36:00 CDTNotes: Roll in palms of hands gently; Do not shake vigorously. (Same as: NovoLOG) "single patient use only" WASTE: F/P - Black; E - Municipal Trash Bin Stable for 28 days at room temperature. Expires in days from Date No Longer Active 12/27/2016 [facility] Glucagon 1 mg, Route: IM, Drug form: PDR/INJ, PRN, Dosing Weight 44.9, kg, PRN Blood Glucose Results, Start date: 12/27/16 3:37:00 CDT, Duration: 30 day, Stop date: 01/26/17 3:36:00 CDT No Longer Active 12/27/2016 [facility] Dextrose 50% Syringe 25 gm, 50 mL, Route: IVP, Drug Form: INJ, Dosing Weight 44.9, kg, PRN, PRN Blood Glucose Results, Start date: 12/27/16 3:37:00 CDT, Duration: 30 day, Stop date: 01/26/17 3:36:00 CDT No Longer Active 12/27/2016 [facility] Sodium Chloride 0.154 MEQ/ML Injectable Solution 1,000 mL, Rate: 125 ml/hr, Infuse over: 8 hr, Route: IV, Dosing Weight 44.9 kg, Total Volume: 1,000, Start date: 12/27/16 3:35:00 CDT, Duration: 30 day, Stop date: 01/26/17 3:34:00 CDT No Longer Active 12/27/2016 [facility] Hydromorphone 0.5 mg, 0.5 mL, Route: IVP, Drug form: INJ, Q4H, Dosing Weight 44.9, kg, PRN Pain Score 7-10, Start date: 12/27/16 3:06:00 CDT, Duration: 30 day, Stop date: 01/26/17 3:05:00 CDT No Longer Active 12/27/2016 [facility] Ondansetron 4 mg, 2 mL, Route: IVP, Drug form: INJ, Q6H, Dosing Weight 44.9, kg, PRN Nausea & Vomiting, Start date: 12/27/16 3:06:00 CDT, Duration: 30 day, Stop date: 01/26/17 3:05:00 CDTNotes: (Same as: Zofran) MEDICATION WASTE Product Size: 4 mg Product Wasted: ___ mg No Longer Active 12/27/2016 [facility] Zofran 4 mg, 2 mL, Route: IV, Drug form: INJ, Q4H, Dosing Weight 44.9, kg, PRN as needed for nausea/vomiting, Start date: 12/27/16 2:58:00 CDT, Duration: 30 day, Stop date: 01/26/17 2:57:00 CDTNotes: (Same as: Zofran) MEDICATION WASTE Product Size: 4 mg Product Wasted: ___ mg Inactive 12/27/2016 [facility] Dilaudid 0.5 mg, 0.5 mL, Route: IV, Drug form: INJ, Q4H, Dosing Weight 44.9, kg, PRN Pain Score 6-10, Start date: 12/27/16 2:58:00 CDT, Duration: 30 day, Stop date: 01/26/17 2:57:00 CDT Inactive 12/27/2016 [facility] Meclizine Hcl 12.5 Mg Tablet, 25 Mg Oral Daily Active 12/26/2016 [facility] Metoprolol Succinate 25 Mg Tab.er.24h, 25 Mg Oral Daily Active 12/26/2016 [facility] Pantoprazole Sodium (Protonix) 40 Mg Tablet.dr, 40 Mg Oral Daily Active 12/26/2016 [facility] Blood Glucose Test Strips 1 box, TOP, Before Breakfast, # 100 strip, 0 Refill(s) Active 09/21/2016 [facility] Blood Glucose Monitor 1 ea, MISC, Daily, Use as directed., # 1 ea, 0 Refill(s) Active 09/21/2016 [facility] insulin isophane (NPH) 100 units/mL human recombinant subcutaneous suspension 5 unit, SUB-Q, Daily, # 10 mL, 0 Refill(s), Pharmacy: [facility] [id number] Active 09/21/2016 [facility] [place] for Injection Syringe Misc/Other 1 ea, MISC, Q30D, # 6 ea, 1 Refill(s) Active 09/21/2016 [facility] Amylases 275866 UNT / Endopeptidases 26020 UNT / Lipase 16763 UNT Enteric Coated Capsule [Creon 24] 1 cap, PO, TID-Before Meals, # 90 cap, 0 Refill(s), Pharmacy: [facility] [id number] Active 09/21/2016 [facility] propranolol 20 mg oral tablet 20 mg=1 tab, PO, TID, # 90 tab, 0 Refill(s), Pharmacy: [facility] [id number] Active 09/21/2016 [facility] Lancets 1 box, MISC, Daily, # 1 box, 0 Refill(s) Active 09/21/2016 [facility] Lancet Device 1 box, MISC, Daily, # 1 ea, 0 Refill(s) Active 09/21/2016 [facility] methimazole 10 mg oral tablet 10 mg, PO, Q8H, # 90 tab, 0 Refill(s), Pharmacy: [facility] [id number] Active 09/21/2016 [facility] Insulin Syringes (U 100) 1 syr, SUB-Q, ONCALL, # 100 syr, 0 Refill(s) Active 09/21/2016 [facility] Amylases 993046 UNT / Endopeptidases 26351 UNT / Lipase 90807 UNT Enteric Coated Capsule [Creon 24] 1 cap, Route: PO, Drug Form: DRC, Dosing Weight 41.818, kg, TID-Before Meals, Start date: 09/21/16 7:30:00 RECEPTION AGENT, Duration: 30 day, Stop date: 10/20/16 16:30:00 CDTNotes: Same as: Creon DRC 24 : lipase 24,000 units, protease 76,000 units, amylase 120,000 units No Longer Active 09/21/2016 [facility] potassium chloride 40 mEq, 2 tab, Route: PO, Drug form: ERTAB, ONCE, Dosing Weight 41.818, kg, PRN Abnormal Lab Result, Electrolyte replacement, Start date: 09/20/16 18:00:00 CSTNotes: (Same as: K-Dur 20) "Do Not Crush" With food and full glass of water No Longer Active 09/21/2016 [facility] potassium chloride 40 mEq, 2 tab, Route: PO, Drug form: ERTAB, ONCE, Dosing Weight 41.818, kg, PRN Abnormal Lab Result, Electrolyte replacement, Start date: 09/20/16 17:00:00 CSTNotes: (Same as: K-Dur 20) "Do Not Crush" With food and full glass of water No Longer Active 09/20/2016 [facility] Questran 4 gm, 1 pkt, Route: PO, Drug form: PDR/REC, Daily, Dosing Weight 41.818, kg, Priority: NOW, Start date: 09/20/16 14:26:00 RECEPTION AGENT, Duration: 30 day, Stop date: 10/20/16 9:00:00 CDTNotes: (Same As: Questran) No Longer Active 09/20/2016 [facility] potassium chloride 40 mEq, 2 tab, Route: PO, Drug form: ERTAB, Q2H, Dosing Weight 41.818, kg, Start date: 09/20/16 12:00:00 RECEPTION AGENT, Duration: 2 doses or times, Stop date: 09/20/16 14:00:00 CSTNotes: (Same as: Emory Hess 20) "Do Not Crush" With food and full glass of water Inactive 09/20/2016 [facility] potassium chloride 40 mEq, Route: NG, Drug form: LIQ, ONCE, Dosing Weight 41.818, kg, Start date: 09/20/16 11:36:00 RECEPTION AGENT, Stop date: 09/20/16 11:36:00 RECEPTION AGENT Inactive 09/20/2016 [facility] D5W 1,000 mL 1,000 mL, Rate: 50 ml/hr, Infuse over: 20 hr, Route: IV, Dosing Weight 41.818 kg, Total Volume: 1,000, Start date: 09/19/16 6:38:00 RECEPTION AGENT, Duration: 12 hr, Stop date: 09/19/16 18:37:00 RECEPTION AGENT Inactive 09/19/2016 [facility] Dextrose 50% Syringe 25 gm, 50 mL, Route: IVP, Drug Form: INJ, Dosing Weight 41.818, kg, PRN, PRN Blood Glucose Results, Start date: 09/18/16 18:06:00 RECEPTION AGENT, Duration: 30 day, Stop date: 10/18/16 19:05:00 CDT No Longer Active 09/19/2016 [facility] Glucagon 1 mg, Route: IM, Drug form: PDR/INJ, PRN, Dosing Weight 41.818, kg, PRN Blood Glucose Results, Start date: 09/18/16 18:06:00 RECEPTION AGENT, Duration: 30 day, Stop date: 10/18/16 19:05:00 CDT No Longer Active 09/19/2016 [facility] Insulin, Aspart, Human 1 unit, 0.01 mL, Route: SUB-Q, Drug form: SOLN, TID-Before Meals, Dosing Weight 41.818, kg, PRN Blood Glucose Results, Start date: 09/18/16 18:06:00 RECEPTION AGENT, Duration: 30 day, Stop date: 10/18/16 18:05:00 CDTNotes: Roll in palms of hands gently; Do not shake vigorously. (Same as: NovoLOG) "single patient use only" WASTE: F/P - Black; E - Municipal Trash Bin Stable for 28 days at room temperature. Expires in days from Date No Longer Active 09/19/2016 [facility] potassium chloride 40 mEq, 2 tab, Route: PO, Drug form: ERTAB, ONCE, Dosing Weight 41.818, kg, Start date: 09/18/16 13:45:00 RECEPTION AGENT, Stop date: 09/18/16 13:45:00 CSTNotes: (Same as: K-Dur 20) "Do Not Crush" With food and full glass of water Inactive 09/18/2016 [facility] Cathflo Activase 2 mg injection 2 mg, 2 mL, Route: INJ, Drug form: INJ, ONCE, Dosing Weight 41.364, kg, Start date: 09/15/16 16:58:00 RECEPTION AGENT, Stop date: 09/15/16 16:58:00 CSTNotes: "Syringe for catheter clearance or interventional radiology use. Reconstitute each vial of Cathflo Activase with 2.2 ml Sterile Water resulting in a 1 mg/ml solution. Stable for 8 hours only. (Same as: Activase) MEDICATION WASTE Product Size: 2 mg Product Wasted: ___ mg Inactive 09/15/2016 [facility] Magnesium Sulfate 2 gm, 50 mL, Route: IVPB, Drug form: INJ, ONCE, Dosing Weight 41.364, kg, Total dose=2 gm, Start date: 09/15/16 12:18:00 RECEPTION AGENT, Duration: 1 doses or times, Stop date: 09/15/16 12:18:00 CSTNotes: WASTE: F/P - Sink; E - Municipal Trash Bin Inactive 09/15/2016 [facility] potassium chloride 20 mEq, 100 mL, Route: IVPB, Drug form: INJ, Q2H, Start date: 09/15/16 8:00:00 RECEPTION AGENT, Duration: 2 doses or times, Stop date: 09/15/16 10:00:00 CSTNotes: (Same as: KCL) Infuse no faster than 10 mEq/hr if given peripherally. Inactive 09/15/2016 [facility] potassium chloride 40 mEq, Route: IV, ONCE, Dosing Weight 41.364, kg, Start date: 09/15/16 7:03:00 RECEPTION AGENT, Stop date: 09/15/16 7:03:00 RECEPTION AGENT Inactive 09/15/2016 [facility] Potassium Chloride 1.33 MEQ/ML Oral Solution 40 mEq, 30 mL, Route: PO, Drug form: LIQ, ONCE, Dosing Weight 41.364, kg, Start date: 09/15/16 7:02:00 RECEPTION AGENT, Stop date: 09/15/16 7:02:00 CSTNotes: (Same as: Potassium Chloride) Inactive 09/15/2016 [facility] alteplase 2 mg injection 5 mg + empty container 1 ea + sodium chloride 0.9% INJ 40 mL Route: MISC, Drug form: INJ, ONCE, Dosing Weight 41.364, kg, mix 5 mg tPa in 40 mL normal saline and instill in lower abdominal drainage catheter. clamp tube for 1 hour, then open to bag drainage., Priority: STAT, Start date: 09/14/16 17:07:00 RECEPTION AGENT, St...Notes: "Syringe for catheter clearance or interventional radiology use. Reconstitute each vial of Cathflo Activase with 2.2 ml Sterile Water resulting in a 1 mg/ml solution. Stable for 8 hours only. (Same as: Activase) MEDICATION WASTE Product Size: 2 mg Product Wasted: ___ mg Inactive 09/14/2016 [facility] dexamethasone (ANES) Route: IV, Drug form: INJ, ONCE, Stop date: 09/13/16 12:49:00 RECEPTION AGENT Inactive 09/13/2016 [facility] ceFAZolin (ANES) Route: IV, Drug form: INJ, ONCE, Stop date: 09/13/16 12:49:00 RECEPTION AGENT Inactive 09/13/2016 [facility] ondansetron (ANES) Route: IV, Drug form: INJ, ONCE, Stop date: 09/13/16 12:46:00 RECEPTION AGENT Inactive 09/13/2016 [facility] famotidine (ANES) Route: IV, Drug form: INJ, ONCE, Stop date: 09/13/16 12:46:00 RECEPTION AGENT Inactive 09/13/2016 [facility] succinylcholine (ANES) Route: IV, Drug form: INJ, ONCE, Stop date: 09/13/16 12:46:00 RECEPTION AGENT Inactive 09/13/2016 [facility] lidocaine (ANES) Route: IV, Drug form: INJ, ONCE, Stop date: 09/13/16 12:41:00 RECEPTION AGENT Inactive 09/13/2016 [facility] fentaNYL (ANES) Route: IV, Drug form: INJ, ONCE, Stop date: 09/13/16 12:41:00 RECEPTION AGENT Inactive 09/13/2016 [facility] propofol (ANES) Route: IV, Drug form: INJ, ONCE, Stop date: 09/13/16 12:41:00 RECEPTION AGENT Inactive 09/13/2016 [facility] rocuronium (ANES) Route: IV, Drug form: INJ, ONCE, Stop date: 09/13/16 12:41:00 RECEPTION AGENT Inactive 09/13/2016 [facility] midazolam (ANES) Route: IV, Drug form: SOLN, ONCE, Stop date: 09/13/16 12:41:00 RECEPTION AGENT Inactive 09/13/2016 [facility] LR 1000 mL INJ (ANES) Route: IV, Total Volume: 1,000, Start date: 09/13/16 11:51:00 RECEPTION AGENT, Stop date: 09/13/16 12:51:00 RECEPTION AGENT Inactive 09/13/2016 [facility] Lactated Ringers Injection IV 1000 mL 1,000 mL, Rate: 40 ml/hr, Infuse over: 25 hr, Route: IV, Dosing Weight 41.364 kg, Total Volume: 1,000, Start date: 09/13/16 10:54:00 RECEPTION AGENT, Duration: 1 doses or times, Stop date: 09/14/16 11:53:00 RECEPTION AGENT Inactive 09/13/2016 [facility] Dilaudid 0.5 mg, 0.5 mL, Route: IV, Drug form: INJ, Q4H, Dosing Weight 41.364, kg, PRN Pain Score 6-10, Start date: 09/12/16 13:52:00 RECEPTION AGENT, Duration: 30 day, Stop date: 10/12/16 13:51:00 CDT No Longer Active 09/12/2016 [facility] potassium chloride 20 mEq, 100 mL, Route: IVPB, Drug form: INJ, ONCE, Dosing Weight 41.364, kg, Start date: 09/12/16 12:07:00 RECEPTION AGENT, Stop date: 09/12/16 12:07:00 CSTNotes: (Same as: KCL) Infuse no faster than 10 mEq/hr if given peripherally. Inactive 09/12/2016 [facility] Vancomycin 1 gm, Route: IV, ONCE, Dosing Weight 41.364, kg, Start date: 09/12/16 10:55:00 RECEPTION AGENT, Stop date: 09/12/16 10:55:00 CSTNotes: TIME CRITICAL MEDICATION (Same As: Vancocin) Infusion rate 2001 mg: infuse ov er 2.5 hours MEDICATION WASTE Product Size: 1000 mg Product Wasted: ___ mg Inactive 09/12/2016 [facility] cefepime 2 gm, Route: IV, Drug form: INJ, ONCE, Dosing Weight 41.364, kg, Start date: 09/12/16 10:55:00 RECEPTION AGENT, Stop date: 09/12/16 10:55:00 CSTNotes: (Same as: Maxipime) MEDICATION WASTE Product Size: 2000 mg Product Wasted: ___ mg tolerated [place]fepime [place]16 [place] [facility] [place] doses as per MD and as documented in e-MAR Inactive 09/12/2016 [facility] 72 HR Scopolamine 0.0139 MG/HR Transdermal Patch 1 patch, Route: TOP, Drug Form: ERFILM, Dosing Weight 41.364, kg, ONCE, Apply behind ear. Avoid use in elderly., Start date: 09/12/16 10:40:00 RECEPTION AGENT, Stop date: 09/12/16 10:40:00 RECEPTION AGENT Inactive 09/12/2016 [facility] Diphenhydramine 12.5 mg, Route: IVP, Drug form: INJ, Q6H, Dosing Weight 41.364, kg, PRN Itching, Start date: 09/12/16 10:40:00 RECEPTION AGENT, Duration: 30 day, Stop date: 10/12/16 10:39:00 CDT Inactive 09/12/2016 [facility] Promethazine 6.25 mg, Route: IVPB, ONCE, Dosing Weight 41.364, kg, PRN Nausea & Vomiting, Start date: 09/12/16 10:40:00 RECEPTION AGENT Inactive 09/12/2016 [facility] Meperidine 12.5 mg, Route: IVP, Q30Min, Dosing Weight 41.364, kg, PRN Other -See Comment, For shivering, Start date: 09/12/16 10:40:00 RECEPTION AGENT, Duration: 2 doses or times, Stop date: Limited # of times Inactive 09/12/2016 [facility] Ondansetron 4 mg, Route: IVP, ONCE, Dosing Weight 41.364, kg, PRN Nausea & Vomiting, Start date: 09/12/16 10:40:00 RECEPTION AGENT Inactive 09/12/2016 [facility] Oxycodone 5 mg, Route: PO, Drug form: TAB, Q4H, Dosing Weight 41.364, kg, PRN Pain Score 4-6, Start date: 09/12/16 10:40:00 RECEPTION AGENT, Duration: 30 day, Stop date: 10/12/16 10:39:00 CDT Inactive 09/12/2016 [facility] Hydromorphone 0.5 mg, Route: IVP, Q5Min, Dosing Weight 41.364, kg, PRN Pain Score 7-10, Start date: 09/12/16 10:40:00 RECEPTION AGENT, Duration: 4 doses or times, Stop date: Limited # of times Inactive 09/12/2016 [facility] Morphine 4 mg, Route: IVP, Q5Min, Dosing Weight 41.364, kg, PRN Pain Score 7-10, Start date: 09/12/16 10:40:00 RECEPTION AGENT, Duration: 3 doses or times, Stop date: Limited # of times Inactive 09/12/2016 [facility] Flumazenil 0.2 mg, Route: IVP, PRN, Dosing Weight 41.364, kg, PRN Benzodiazepine Reversal, Initial dose, Start date: 09/12/16 10:40:00 RECEPTION AGENT, Duration: 30 day, Stop date: 10/12/16 11:39:00 CDT Inactive 09/12/2016 [facility] Fentanyl 50 microgram, Route: IVP, Q5Min, Dosing Weight 41.364, kg, PRN Pain Score 7-10, Priority: Routine, Start date: 09/12/16 10:40:00 RECEPTION AGENT, Duration: 2 doses or times, Stop date: Limited # of times Inactive 09/12/2016 [facility] Calcium Chloride 0.0014 MEQ/ML / Potassium Chloride 0.004 MEQ/ML / Sodium Chloride 0.103 MEQ/ML / Sodium Lactate 0.028 MEQ/ML Injectable Solution 1,000 mL, Rate: 125 ml/hr, Infuse over: 8 hr, Route: IV, Dosing Weight 41.364 kg, Total Volume: 1,000, Start date: 09/12/16 10:40:00 RECEPTION AGENT, Duration: 30 day, Stop date: 10/12/16 10:39:00 CDT Inactive 09/12/2016 [facility] Naloxone 0.4 mg, Route: IVP, Q2MIN, Dosing Weight 41.364, kg, PRN Narcotic Reversal, Start date: 09/12/16 10:40:00 RECEPTION AGENT, Duration: 8 doses or times, Stop date: Limited # of times Inactive 09/12/2016 [facility] Sodium Chloride 0.154 MEQ/ML Injectable Solution 1,000 mL, Rate: 25 ml/hr, Infuse over: 40 hr, Route: IV, Dosing Weight 41.364 kg, Total Volume: 1,000, Start date: 09/12/16 8:31:00 RECEPTION AGENT, Duration: 30 day, Stop date: 10/12/16 8:30:00 CDT Inactive 09/12/2016 [facility] potassium chloride 20 mEq, 100 mL, Route: IVPB, Drug form: INJ, Q2H, Dosing Weight 41.364, kg, Total dose=40 mEq, Start date: 09/12/16 8:00:00 RECEPTION AGENT, Duration: 2 doses or times, Stop date: 09/12/16 10:00:00 RECEPTION AGENT, Central LineNotes: (Same as: KCL) Infuse no faster than 10 mEq/hr if given peripherally. Inactive 09/12/2016 [facility] D5W 1/2NS 1,000 mL 1,000 mL, Rate: 125 ml/hr, Infuse over: 8 hr, Route: IV, Dosing Weight 41.364 kg, Total Volume: 1,000, Start date: 09/12/16 0:00:00 RECEPTION AGENT, Stop date: 10/11/16 23:59:00 CDT No Longer Active 09/12/2016 [facility] Dextrose 5% with 0.45% NaCl IV 1000 mL 1,000 mL, Rate: 75 ml/hr, Infuse over: 13.3 hr, Route: IV, Dosing Weight 41.364 kg, Total Volume: 1,000, Start date: 09/11/16 16:41:00 RECEPTION AGENT, Duration: 30 day, Stop date: 10/11/16 16:40:00 CDT Inactive 09/11/2016 [facility] pantoprazole 40 mg, 1 tab, Route: PO, Drug form: ECTAB, Before Dinner, Dosing Weight 50, kg, Start date: 09/11/16 16:30:00 RECEPTION AGENT, Stop date: 10/10/16 16:30:00 CDTNotes: Tablet should not be chewed or crushed. (Same as: Protonix) No Longer Active 09/11/2016 [facility] Methimazole 10 mg, 2 tab, Route: PO, Drug form: TAB, Q8H, Dosing Weight 50, kg, Start date: 09/11/16 0:00:00 RECEPTION AGENT, Stop date: 10/10/16 16:00:00 CDT No Longer Active 09/11/2016 [facility] insulin, isophane 5 unit, 0.05 mL, Route: SUB-Q, Drug form: INJ, Q12H, Dosing Weight 50, kg, Start date: 09/10/16 21:00:00 RECEPTION AGENT, Duration: 30 day, Stop date: 10/10/16 12:00:00 CDTNotes: Roll in palms of hands gently; Do not shake vigorously. (Same as: NovoLIN N, Humulin N) Do not hold insulin without contacting prescriber "single patient use only" WASTE: F/P - Black; E - [facility] Trash Bin Stable for 14 days at room temperature Expires in days from Date No Longer Active 09/11/2016 [facility] Enoxaparin 40 mg, 0.4 mL, Route: SUB-Q, Drug form: INJ, Daily, Dosing Weight 50, kg, Start date: 09/10/16 21:00:00 RECEPTION AGENT, Duration: 30 day, Stop date: 10/09/16 21:00:00 CDTNotes: (Same as: Lovenox) No Longer Active 09/11/2016 [facility] Dilaudid 0.5 mg, 0.5 mL, Route: IV, Drug form: INJ, Q6H, Dosing Weight 41.364, kg, PRN Pain Score 6-10, Start date: 09/10/16 18:41:00 RECEPTION AGENT, Duration: 30 day, Stop date: 10/10/16 18:40:00 CDT No Longer Active 09/11/2016 [facility] Propranolol 20 mg, 2 tab, Route: PO, Drug form: TAB, TID, Dosing Weight 50, kg, Start date: 09/10/16 17:00:00 RECEPTION AGENT, Duration: 30 day, Stop date: 10/10/16 13:00:00 CDTNotes: Give with food. (Same as: Inderal) No Longer Active 09/10/2016 [facility] Morphine 2 mg, 1 mL, Route: IVP, Drug form: INJ, Q4H, Dosing Weight 50, kg, PRN Pain Score 6-10, Start date: 09/10/16 16:46:00 RECEPTION AGENT, Duration: 30 day, Stop date: 10/10/16 16:45:00 CDTNotes: (Same as:MORPhine S ulfate) No Longer Active 09/10/2016 [facility] Tylenol 650 mg, 20.3 mL, Route: PO, Drug form: LIQ, Q6H, Dosing Weight 50, kg, PRN Pain 1-3/Temp > 100.4 F, Start date: 09/10/16 16:45:00 RECEPTION AGENT, Duration: 30 day, Stop date: 10/10/16 16:44:00 CDTNotes: Max [id number]=2025zr/day (4 gm/day). (Same as: Tylenol) No Longer Active 09/10/2016 [facility] Zofran 4 mg, 2 mL, Route: IV, Drug form: INJ, Q6H, Dosing Weight 50, kg, PRN Nausea, Start date: 09/10/16 16:45:00 RECEPTION AGENT, Duration: 30 day, Stop date: 10/10/16 16:44:00 CDTNotes: (Same as: Zofran) MEDICATION WASTE Product Size: 4 mg Product Wasted: ___ mg No Longer Active 09/10/2016 [facility] Acetaminophen 20 MG/ML / Hydrocodone Bitartrate 0.667 MG/ML Oral Solution 10 mL, Route: PO, Drug Form: SOLN, Dosing Weight 50, kg, Q6H, PRN Pain Score 4-6, Start date: 09/10/16 16:45:00 RECEPTION AGENT, Duration: 30 day, Stop date: 10/10/16 16:44:00 CDTNotes: Do not exceed 4gm/day of acetaminophen. (Same as: [place] 325/7.5) No Longer Active 09/10/2016 [facility] Insulin, Aspart, Human 10 unit, 0.1 mL, Route: SUB-Q, Drug form: SOLN, Sliding Scale, Dosing Weight 50, kg, PRN Blood Glucose Results, Start date: 09/10/16 16:44:00 RECEPTION AGENT, Duration: 30 day, Stop date: 10/10/16 17:43:00 CDTNotes: Roll in palms of hands gently; Do not shake vigorously. (Same as: NovoLOG) "single patient use only" WASTE: F/P - Black; E - Municipal Trash Bin Stable for 28 days at room temperature. Expires in days from Date No Longer Active 09/10/2016 [facility] Dextrose 50% Syringe 25 gm, 50 mL, Route: IVP, Drug Form: INJ, Dosing Weight 50, kg, PRN, PRN Blood Glucose Results, Start date: 09/10/16 16:44:00 RECEPTION AGENT, Duration: 30 day, Stop date: 10/10/16 17:43:00 CDT No Longer Active 09/10/2016 [facility] Glucagon 1 mg, Route: IM, Drug form: PDR/INJ, PRN, Dosing Weight 50, kg, PRN Blood Glucose Results, Start date: 09/10/16 16:44:00 RECEPTION AGENT, Duration: 30 day, Stop date: 10/10/16 17:43:00 CDT No Longer Active 09/10/2016 [facility] Ondansetron 4 mg, 2 mL, Route: IVP, Drug form: INJ, Q6H, Dosing Weight 50, kg, PRN Nausea & Vomiting, Start date: 09/10/16 16:40:00 RECEPTION AGENT, Duration: 30 day, Stop date: 10/10/16 16:39:00 CDTNotes: (Same as: Sotero) MEDICATION WASTE Product Size: 4 mg Product Wasted: ___ mg No Longer Active 09/10/2016 [facility] Regular Insulin, Human 100 UNT/ML Injectable Solution 1 unit, SUB-Q, Sliding Scale, PRN Blood Glucose Results, 0 Refill(s) On Hold 09/10/2016 [facility] tramadol hydrochloride 50 MG Oral Tablet 50 mg=1 tab, PO, Q4H, PRN Pain Score 1-3, 0 Refill(s) On Hold 09/10/2016 [facility] insulin isophane (NPH) 100 units/mL human recombinant subcutaneous suspension 5 unit, SUB-Q, Q12H, 0 Refill(s) On Hold 09/10/2016 [facility] Magnesium Sulfate 2 gm, 50 mL, Route: IVPB, Drug form: INJ, ONCE, Dosing Weight 50, kg, Start date: 09/06/16 8:04:00 RECEPTION AGENT, Duration: 2 hr, Stop date: 09/06/16 8:04:00 CSTNotes: WASTE: F/P - Sink; E - Municipal Trash Bin Inactive 09/06/2016 [facility] Melatonin 3 MG Extended Release Tablet 3 mg, 1 tab, Route: PO, Drug Form: TAB, Dosing Weight 50, kg, Bedtime, Start date: 09/05/16 21:44:00 RECEPTION AGENT, Duration: 30 day, Stop date: 10/05/16 21:00:00 CSTNotes: (Same as: Melatonin) No Longer Active 09/06/2016 [facility] Dilaudid 0.5 mg, 0.25 mL, Route: IVP, Drug form: INJ, ONCE, Dosing Weight 50, kg, Priority: STAT, Start date: 09/05/16 16:32:00 RECEPTION AGENT, Stop date: 09/05/16 16:32:00 CSTNotes: Same as: Dilaudid Inactive 09/05/2016 [facility] Acetaminophen 325 MG / Hydrocodone Bitartrate 5 MG Oral Tablet [[place] 5/325] 1 tab, Route: PO, Drug Form: TAB, Dosing Weight 50, kg, Q6H, PRN Pain Score 6-10, FOR SEVERE PAIN, Start date: 09/05/16 11:28:00 RECEPTION AGENT, Duration: 30 day, Stop date: 10/05/16 11:27:00 CSTNotes: (Same as: [place] 325/5) Do not exceed 4gm/day of acetaminophen. No Longer Active 09/05/2016 [facility] tramadol hydrochloride 50 MG Oral Tablet 50 mg, 1 tab, Route: PO, Drug form: TAB, Q4H, Dosing Weight 50, kg, PRN Pain Score 1-3, Start date: 09/05/16 10:48:00 RECEPTION AGENT, Duration: 30 day, Stop date: 10/05/16 10:47:00 CSTNotes: Not to exceed 400mg/day. (Same As: Ultram) No Longer Active 09/05/2016 [facility] Magnesium Sulfate 2 gm, 50 mL, Route: IVPB, Drug form: INJ, ONCE, Dosing Weight 50, kg, Start date: 09/04/16 8:04:00 RECEPTION AGENT, Stop date: 09/04/16 8:04:00 CSTNotes: WASTE: F/P - Sink; E - Municipal Trash Bin Inactive 09/04/2016 [facility] PHOS-NaK 1 pkt, Route: PO, Drug Form: PDR/REC, Dosing Weight 50, kg, Q24H, Start date: 09/02/16 14:00:00 RECEPTION AGENT, Duration: 7 day, Stop date: 09/08/16 14:00:00 CSTNotes: (Same as: Phos-NaK) Each 1.5 gm pkt has 250mg phosphorous. Mix w/2.5oz water and stir. No Longer Active 09/02/2016 [facility] potassium phosphate + sodium chloride 0.9% INJ 250 mL 15 mmol, 5 mL, Route: IVPB, ONCE, Dosing Weight 50, kg, Start date: 09/02/16 7:47:00 RECEPTION AGENT, Stop date: 09/02/16 7:47:00 CSTNotes: (Same as: K Phosphate.) 1 mMol phoshate has 1.47 mEq potassium Infuse over 4 hours Inactive 09/02/2016 [facility] Magnesium Sulfate 2 gm, 50 mL, Route: IVPB, Drug form: INJ, ONCE, Dosing Weight 50, kg, Start date: 09/02/16 7:46:00 RECEPTION AGENT, Duration: 2 hr, Stop date: 09/02/16 7:46:00 CSTNotes: WASTE: F/P - Sink; E - Municipal Trash Bin Inactive 09/02/2016 [facility] Magnesium Sulfate 2 gm, 50 mL, Route: IVPB, Drug form: INJ, ONCE, Dosing Weight 50, kg, Start date: 08/31/16 7:58:00 RECEPTION AGENT, Duration: 2 hr, Stop date: 08/31/16 7:58:00 CSTNotes: WASTE: F/P - Sink; E - Municipal Trash Bin Inactive 08/31/2016 [facility] PHOS-NaK 1 pkt, Route: PO, Drug Form: PDR/REC, Dosing Weight 50, kg, ONCE, Start date: 08/31/16 7:57:00 RECEPTION AGENT, Stop date: 08/31/16 7:57:00 CSTNotes: (Same as: Phos-NaK) Each 1.5 gm pkt has 250mg phosphorous. Mix w/2.5oz water and stir. Inactive 08/31/2016 [facility] sterile water 2.2 mL, Route: MISC, Drug Form: INJ, PRN, PRN Other -See Comment, Start date: 08/30/16 11:01:00 RECEPTION AGENT, Duration: 1 day, Stop date: 08/31/16 11:00:00 RECEPTION AGENT No Longer Active 08/30/2016 [facility] Cathflo Activase 2 mg injection 2 mg, 2 mL, Route: MISC, Drug form: INJ, ONCE, Dosing Weight 50, kg, Start date: 08/30/16 10:39:00 RECEPTION AGENT, Stop date: 08/30/16 10:39:00 CSTNotes: "Syringe for catheter clearance or interventional radiology use. Reconstitute each vial of Cathflo Activase with 2.2 ml Sterile Water resulting in a 1 mg/ml solution. Stable for 8 hours only. (Same as: Activase) MEDICATION WASTE Product Size: 2 mg Product Wasted: ___ mg Inactive 08/30/2016 [facility] potassium phosphate + sodium chloride 0.9% INJ 250 mL 30 mmol, 10 mL, Route: IV, ONCE, Start date: 08/29/16 10:30:00 RECEPTION AGENT, Stop date: 08/29/16 10:30:00 CSTNotes: (Same as: K Phosphate.) 1 mMol phoshate has 1.47 mEq potassium Infuse over 4 hours Inactive 08/29/2016 [facility] PHOS-NaK 1 pkt, Route: PO, Dosing Weight 50, kg, ONCE, Start date: 08/29/16 9:08:00 RECEPTION AGENT, Stop date: 08/29/16 9:08:00 RECEPTION AGENT Inactive 08/29/2016 [facility] Insulin regular 5 unit, 0.05 mL, Route: SUB-Q, Drug form: SOLN, Sliding Scale, Dosing Weight 50, kg, PRN Blood Glucose Results, Start date: 08/28/16 23:37:00 RECEPTION AGENT, Duration: 30 day, Stop date: 09/27/16 23:36:00 CSTNotes: (Same as: Humulin R) Roll in palms of hands gently; Do not shake vigorously. "single patient use only" (Restricted to patients requiring a dose > 60 units) WASTE: F/P - Black; E - Municipal Trash Bin Stable for 28 days at room temperature Expires in days from Date No Longer Active 08/29/2016 [facility] Glucagon 1 mg, Route: IM, Drug form: PDR/INJ, PRN, Dosing Weight 50, kg, PRN Blood Glucose Results, Start date: 08/28/16 23:37:00 RECEPTION AGENT, Duration: 30 day, Stop date: 09/27/16 23:36:00 RECEPTION AGENT No Longer Active 08/29/2016 [facility] Dextrose 50% Syringe 25 gm, 50 mL, Route: IVP, Drug Form: INJ, Dosing Weight 50, kg, PRN, PRN Blood Glucose Results, Start date: 08/28/16 23:37:00 RECEPTION AGENT, Duration: 30 day, Stop date: 09/27/16 23:36:00 RECEPTION AGENT No Longer Active 08/29/2016 [facility] Loperamide 1 mg, 5 mL, Route: PO, Drug form: LIQ, Q6H, Dosing Weight 50, kg, PRN Diarrhea, Start date: 08/28/16 20:36:00 RECEPTION AGENT, Duration: 30 day, Stop date: 09/27/16 20:35:00 CSTNotes: Same as Imodium No Longer Active 08/29/2016 [facility] insulin, isophane 5 unit, 0.05 mL, Route: SUB-Q, Drug form: INJ, Q12H, Dosing Weight 50, kg, Start date: 08/28/16 13:45:00 RECEPTION AGENT, Stop date: 09/27/16 9:00:00 CSTNotes: Roll in palms of hands gently; Do not shake vigoro usly. (Same as: Humulin N) Do not hold insulin without contacting prescriber WASTE: F/P - Black; E - Municipal Trash Bin Stable for 28 days at room temperature Expires in days from Date No Longer Active 08/28/2016 [facility] Dextrose 50% Syringe 50 mL, Route: IVP, Dosing Weight 50, kg, PRN, PRN Blood Glucose Results, Start date: 08/28/16 13:16:00 RECEPTION AGENT, Duration: 30 day, Stop date: 09/27/16 13:15:00 RECEPTION AGENT Inactive 08/28/2016 [facility] Glucagon 1 mg, Route: IM, PRN, Dosing Weight 50, kg, PRN Blood Glucose Results, Start date: 08/28/16 13:16:00 RECEPTION AGENT, Duration: 30 day, Stop date: 09/27/16 13:15:00 RECEPTION AGENT Inactive 08/28/2016 [facility] Menthol 0.0044 MG/MG / Zinc Oxide 0.2 MG/MG Topical Ointment [Calmoseptine Ointment] 1 appl, Route: TOP, PRN, Drug form: OINT, PRN Diaper Rash, Start date: 08/28/16 10:43:00 RECEPTION AGENT, Duration: 30 day, Stop date: 09/27/16 10:42:00 RECEPTION AGENT, DosingNotes: (Same as: Calmoseptine) No Longer Active 08/28/2016 [facility] potassium chloride 40 mEq, 30 mL, Route: PO, Drug form: LIQ, Daily, Dosing Weight 50, kg, Start date: 08/28/16 9:00:00 RECEPTION AGENT, Duration: 30 day, Stop date: 09/26/16 9:00:00 CSTNotes: (Same as: Potassium Chloride) No Longer Active 08/28/2016 [facility] potassium phosphate + sodium chloride 0.9% INJ 250 mL 45 mmol, 15 mL, Route: IVPB, ONCE, Dosing Weight 50, kg, Start date: 08/28/16 7:56:00 RECEPTION AGENT, Stop date: 08/28/16 7:56:00 CSTNotes: (Same as: K Phosphate.) 1 mMol phoshate has 1.47 mEq potassium Infuse over 4 hours Inactive 08/28/2016 [facility] potassium chloride 40 mEq, 30 mL, Route: PO, Drug form: LIQ, ONCE, Dosing Weight 50, kg, Start date: 08/27/16 9:30:00 RECEPTION AGENT, Stop date: 08/27/16 9:30:00 CSTNotes: (Same as: Potassium Chloride) Inactive 08/27/2016 [facility] potassium chloride 10 mEq, Route: IVPB, Q1H, Dosing Weight 50, kg, Total Dose=40 meq, Start date: 08/27/16 8:00:00 RECEPTION AGENT, Duration: 4 doses or times, Stop date: 08/27/16 11:00:00 RECEPTION AGENT, Peripheral Line Inactive 08/27/2016 [facility] potassium chloride 40 mEq, 2 tab, Route: PO, Drug form: ERTAB, ONCE, Dosing Weight 50, kg, Start date: 08/27/16 7:36:00 RECEPTION AGENT, Stop date: 08/27/16 7:36:00 CSTNotes: (Same as: K-Dur 20) "Do Not Crush" With food and full glass of water Inactive 08/27/2016 [facility] potassium chloride 40 mEq, 2 tab, Route: PO, Drug form: ERTAB, ONCE, Dosing Weight 50, kg, Start date: 08/26/16 16:31:00 RECEPTION AGENT, Stop date: 08/26/16 16:31:00 CSTNotes: (Same as: K-Dur 20) "Do Not Crush" With food and full glass of water Inactive 08/26/2016 [facility] potassium chloride 10 mEq, 50 mL, Route: IVPB, Drug form: INJ, Q1H, Dosing Weight 50, kg, Total Dose=40 meq, Start date: 08/26/16 9:00:00 RECEPTION AGENT, Duration: 4 doses or times, Stop date: 08/26/16 12:00:00 RECEPTION AGENT, Peripheral LineNotes: (Same as: KCL) Inactive 08/26/2016 [facility] NS + KCL 20mEq/L 1000ml (Premix) 1,000 mL 1,000 mL, Rate: 125 ml/hr, Infuse over: 8 hr, Route: IV, Dosing Weight 50 kg, Total Volume: 1,000, Start date: 08/26/16 8:09:00 RECEPTION AGENT, Duration: 30 day, Stop date: 09/25/16 8:08:00 CSTNotes: PREMIX IV - Do Not Alter WASTE: F/P - Sink; E - Municipal Trash Bin No Longer Active 08/26/2016 [facility] potassium chloride 20 mEq, 100 mL, Route: IVPB, Drug form: INJ, Q2H, Dosing Weight 50, kg, Total Dose=40 meq, Start date: 08/25/16 18:00:00 RECEPTION AGENT, Duration: 2 doses or times, Stop date: 08/25/16 20:00:00 RECEPTION AGENT, Peripheral LineNotes: (Same as: KCL) Infuse no faster than 10 mEq/hr if given peripherally. Inactive 08/26/2016 [facility] potassium chloride 20 mEq, 100 mL, Route: IVPB, Drug form: INJ, Q2H, Dosing Weight 50, kg, Total dose=60 mEq, Start date: 08/25/16 6:00:00 RECEPTION AGENT, Duration: 3 doses or times, Stop date: 08/25/16 10:00:00 RECEPTION AGENT, Central L ineNotes: (Same as: KCL) Infuse no faster than 10 mEq/hr if given peripherally. Inactive 08/25/2016 [facility] Insulin, Aspart, Human 3 unit, 0.03 mL, Route: SUB-Q, Drug form: SOLN, TID-Before Meals, Dosing Weight 50, kg, PRN Blood Glucose Results, Start date: 08/24/16 18:07:00 RECEPTION AGENT, Duration: 30 day, Stop date: 09/23/16 18:06:00 CSTNotes: Roll in palms of hands gently; Do not shake vigorously. (Same as: NovoLOG) "single patient use only" WASTE: F/P - Black; E - Municipal Trash Bin Stable for 28 days at room temperature. Expires in days from Date No Longer Active 08/25/2016 [facility] Dextrose 50% Syringe 12.5 gm, 25 mL, Route: IVP, Drug Form: INJ, Dosing Weight 50, kg, PRN, PRN Blood Glucose Results, Start date: 08/24/16 18:07:00 RECEPTION AGENT, Duration: 30 day, Stop date: 09/23/16 18:06:00 RECEPTION AGENT No Longer Active 08/25/2016 [facility] Glucagon 1 mg, Route: IM, Drug form: PDR/INJ, PRN, Dosing Weight 50, kg, PRN Blood Glucose Results, Start date: 08/24/16 18:07:00 RECEPTION AGENT, Duration: 30 day, Stop date: 09/23/16 18:06:00 RECEPTION AGENT No Longer Active 08/25/2016 [facility] sodium chloride 0.9% 1000 ml INJ 1,000 mL 1,000 mL, Rate: 150 ml/hr, Infuse over: 6.7 hr, Route: IV, Dosing Weight 50 kg, Total Volume: 1,000, Start date: 08/24/16 18:01:00 RECEPTION AGENT, Duration: 30 day, Stop date: 09/23/16 18:00:00 RECEPTION AGENT No Longer Active 08/25/2016 [facility] Maxipime 1 gm, Route: IVPB, Drug form: INJ, [id number], Start date: 08/24/16 18:00:00 RECEPTION AGENT, Duration: 30 day, Stop date: 09/23/16 10:00:00 CSTNotes: (Same As: Maxipime) MEDICATION WASTE Product Size: 1000 mg Product Wasted: ___ mg No Longer Active 08/25/2016 [facility] pantoprazole 40 mg, Route: IVP, Drug form: INJ, Before Dinner, Dosing Weight 50, kg, Start date: 08/24/16 16:30:00 RECEPTION AGENT, Duration: 30 day, Stop date: 09/22/16 16:30:00 CSTNotes: (Same as: Protonix) No Longer Active 08/24/2016 [facility] Flumazenil 0.2 mg, Route: IVP, PRN, Dosing Weight 50, kg, PRN Benzodiazepine Reversal, Initial dose, Start date: 08/24/16 15:59:00 RECEPTION AGENT, Duration: 30 day, Stop date: 09/23/16 15:58:00 RECEPTION AGENT Inactive 08/24/2016 [facility] Hydromorphone 0.5 mg, Route: IVP, Q5Min, Dosing Weight 50, kg, PRN Pain Score 7-10, Start date: 08/24/16 15:59:00 RECEPTION AGENT, Duration: 4 doses or times, Stop date: Limited # of times Inactive 08/24/2016 [facility] Oxycodone 10 mg, Route: PO, Drug form: TAB, Q4H, Dosing Weight 50, kg, PRN Pain Score 7-10, Start date: 08/24/16 15:59:00 RECEPTION AGENT, Duration: 30 day, Stop date: 09/23/16 15:58:00 RECEPTION AGENT Inactive 08/24/2016 [facility] Naloxone 0.4 mg, Route: IVP, Q2MIN, Dosing Weight 50, kg, PRN Narcotic Reversal, Start date: 08/24/16 15:59:00 RECEPTION AGENT, Duration: 8 doses or times, Stop date: Limited # of times Inactive 08/24/2016 [facility] Ondansetron 4 mg, Route: IVP, ONCE, Dosing Weight 50, kg, PRN Nausea & Vomiting, Start date: 08/24/16 15:59:00 RECEPTION AGENT Inactive 08/24/2016 [facility] Metoprolol 2 mg, Route: IVP, Q5Min, Dosing Weight 50, kg, PRN Other -See Comment, Start date: 08/24/16 15:59:00 RECEPTION AGENT, Duration: 3 doses or times, Stop date: Limited # of times Inactive 08/24/2016 [facility] potassium chloride 20 mEq, 100 mL, Route: IVPB, Drug form: INJ, Q2H, Start date: 08/24/16 10:00:00 RECEPTION AGENT, Duration: 2 doses or times, Stop date: 08/24/16 12:00:00 CSTNotes: (Same as: KCL) Infuse no faster than 10 mEq/hr if given peripherally. Inactive 08/24/2016 [facility] potassium chloride 10 mEq, Route: IVPB, Q1H, Dosing Weight 50, kg, Total Dose=40 meq, Start date: 08/24/16 9:00:00 RECEPTION AGENT, Duration: 4 doses or times, Stop date: 08/24/16 12:00:00 RECEPTION AGENT, Peripheral Line Inactive 08/24/2016 [facility] Propranolol 20 mg, 1 tab, Route: PO, Drug form: TAB, TID, Dosing Weight 50, kg, Start date: 08/24/16 9:00:00 RECEPTION AGENT, Duration: 30 day, Stop date: 09/22/16 17:00:00 CSTNotes: Give with food. (Same as: Inderal) No Longer Active 08/24/2016 [facility] Magnesium Oxide 400 mg, 1 tab, Route: PO, Drug form: TAB, TID, Dosing Weight 50, kg, Start date: 08/24/16 9:00:00 RECEPTION AGENT, Duration: 30 day, Stop date: 09/22/16 17:00:00 CSTNotes: (Same as: Mag-Ox 400) Magnesium oxide 4 [id number] elemental magnesium Dose=____mg magnesium oxide (___mg elemental magnesium) No Longer Active 08/24/2016 [facility] Potassium Chloride 1.33 MEQ/ML Oral Solution 40 mEq, 30 mL, Route: PO, Drug form: LIQ, Daily, Dosing Weight 50, kg, Start date: 08/24/16 9:00:00 RECEPTION AGENT, Duration: 30 day, Stop date: 09/22/16 9:00:00 CSTNotes: (Same as: Potassium Chloride) Inactive 08/24/2016 [facility] Methimazole 10 mg, 1 tab, Route: PO, Drug form: TAB, Q8H, Dosing Weight 50, kg, Start date: 08/24/16 0:00:00 RECEPTION AGENT, Duration: 30 day, Stop date: 09/22/16 16:00:00 RECEPTION AGENT No Longer Active 08/24/2016 [facility] Vancomycin 1.25 gm, Route: IVPB, [id number], Dosing Weight 50, kg, Start date: 08/23/16 21:00:00 RECEPTION AGENT, Stop date: 09/22/16 17:00:00 CSTNotes: TIME CRITICAL MEDICATION (Same As: Vancocin) Infusion rate 2001 mg: infuse over 2.5 hours MEDICATION WASTE Product Size: 1000 mg Product Wasted: ___ mg No Longer Active 08/24/2016 [facility] Enoxaparin 40 mg, 0.4 mL, Route: SUB-Q, Drug form: INJ, [id number], Dosing Weight 50, kg, Start date: 08/23/16 21:00:00 RECEPTION AGENT, Duration: 30 day, Stop date: 09/21/16 21:00:00 CSTNotes: (Same as: Lovenox) No Longer Active 08/24/2016 [facility] cefepime 1 gm, Route: IVPB, Drug form: INJ, [id number], Dosing Weight 50, kg, (CrCl 30 - 49 ml/min), Start date: 08/23/16 21:00:00 RECEPTION AGENT, Duration: 30 day, Stop date: 09/22/16 9:00:00 CSTNotes: (Same As: Maxipime) MEDICATION WASTE Product Size: 1000 mg Product Wasted: __0_ mg No Longer Active 08/24/2016 [facility] Albuterol 0.833 MG/ML / Ipratropium [place] 0.167 MG/ML Inhalant Solution 3 mL, Route: NEB, Drug Form: SOLN, Dosing Weight 50, kg, Q6H, PRN Shortness of breath, Start date: 08/23/16 20:14:00 RECEPTION AGENT, Duration: 30 day, Stop date: 09/22/16 20:13:00 CSTNotes: (Same as: Duoneb) No Longer Active 08/24/2016 [facility] Ondansetron 4 mg, 2 mL, Route: IVP, Drug form: INJ, Q6H, Dosing Weight 50, kg, PRN Nausea, Start date: 08/23/16 20:08:00 RECEPTION AGENT, Duration: 30 day, Stop date: 09/22/16 20:07:00 CSTNotes: (Same as: Zofran) MEDICAT ION WASTE Product Size: 4 mg Product Wasted: _0__ mg No Longer Active 08/24/2016 [facility] Hydromorphone 0.5 mg, 0.25 mL, Route: IV, Drug form: INJ, Q3H, Dosing Weight 50, kg, PRN Pain Score 4-6, Start date: 08/23/16 20:05:00 RECEPTION AGENT, Duration: 30 day, Stop date: 09/22/16 20:04:00 CSTNotes: Same as Dilaudid No Longer Active 08/24/2016 [facility] propranolol 20 mg oral tablet 20 mg=1 tab, PO, TID, 0 Refill(s) On Hold 08/23/2016 [facility] pantoprazole 40 mg intravenous injection 40 mg, IVP, Before Dinner, 0 Refill(s) On Hold 08/23/2016 [facility] ondansetron 2 mg/mL injectable solution 4 mg=2 mL, IVP, Q6H, PRN Nausea, 0 Refill(s) On Hold 08/23/2016 [facility] magnesium sulfate 2 g/50 mL-sterile water intravenous solution 2 gm=50 mL, IV, ONCE, 0 Refill(s) On Hold 08/23/2016 [facility] Morphine 2 mg=0.5 mL, IV, Q4H, PRN Pain Score 4-6, 0 Refill(s) On Hold 08/23/2016 [facility] hydromorphone 100 mg/100 mL-NaCl 0.9% intravenous solution 0.5 mg=0.5 mL, IV, Q3H, PRN Pain Score 4-6, 0 Refill(s) On Hold 08/23/2016 [facility] Acetaminophen 325 MG / Hydrocodone Bitartrate 5 MG Oral Tablet [[place] 5/325] 1 tab, PO, Q6H, PRN Pain Score 1-3, 0 Refill(s) On Hold 08/23/2016 [facility] Magnesium Sulfate 2 gm, 50 mL, Route: IV, Drug form: INJ, ONCE, Dosing Weight 50.909, kg, Start date: 08/23/16 14:32:00 RECEPTION AGENT, Stop date: 08/23/16 14:32:00 CSTNotes: WASTE: F/P - Sink; E - Municipal Trash Bin Inactive 08/23/2016 [facility] potassium chloride 10 mEq, 100 mL, Route: IVPB, Drug form: INJ, Q1H, Dosing Weight 50.909, kg, Total Dose=60 meq, Start date: 08/23/16 7:00:00 RECEPTION AGENT, Duration: 6 doses or times, Stop date: 08/23/16 12:00:00 RECEPTION AGENT, Peripheral LineNotes: Infuse at a rate of 10 mEq/hr. (Same as: KCL) Inactive 08/23/2016 [facility] potassium chloride 40 mEq, 30 mL, Route: DHT, Drug form: LIQ, ONCE, Dosing Weight 50.909, kg, Start date: 08/23/16 6:24:00 RECEPTION AGENT, Stop date: 08/23/16 6:24:00 CSTNotes: (Same as: Potassium Chloride) Inactive 08/23/2016 [facility] Propranolol 20 mg, 1 tab, Route: PO, Drug form: TAB, TID, Dosing Weight 50.909, kg, Start date: 08/22/16 16:00:00 RECEPTION AGENT, Duration: 30 day, Stop date: 09/21/16 8:00:00 CSTNotes: Give with food. (Same as: Inderal) No Longer Active 08/22/2016 [facility] potassium chloride 40 mEq, 30 mL, Route: NG, Drug form: LIQ, Q2H, Dosing Weight 50.909, kg, Start date: 08/22/16 12:00:00 RECEPTION AGENT, Duration: 2 doses or times, Stop date: 08/22/16 14:00:00 CSTNotes: (Same as: Potassium Chloride) Inactive 08/22/2016 [facility] WAIT for vanc trough draw on 08/22 AM WAIT for vanc trough draw on 08/22 AM, reminder, Drug form: MISC, Route: MISC, ONCE, 08/22/16 9:00:00 RECEPTION AGENT, Stop date: 08/22/16 9:00:00 RECEPTION AGENT Inactive 08/22/2016 [facility] D5W 1/2NS + KCL 40mEq/L 1000ml (Premix) 1,000 mL 1,000 mL, Rate: 75 ml/hr, Infuse over: 13.3 hr, Route: IV, Dosing Weight 50.909 kg, Total Volume: 1,000, Start date: 08/22/16 7:00:00 RECEPTION AGENT, Duration: 30 day, Stop date: 09/21/16 6:59:00 CSTNotes: PREMIX IV - Do Not Alter WASTE: F/P - Sink; E - Municipal Trash Bin No Longer Active 08/22/2016 [facility] Propranolol 20 mg, 1 tab, Route: PO, Drug form: TAB, Q12H, Dosing Weight 50.909, kg, Priority: NOW, Start date: 08/21/16 10:05:00 RECEPTION AGENT, Duration: 30 day, Stop date: 09/20/16 9:00:00 CSTNotes: Give with food. (Same as: Inderal) No Longer Active 08/21/2016 [facility] sodium chloride 0.9% 1000 ml INJ 1,000 mL 1,000 mL, Rate: 1000 ml/hr, Infuse over: 1 hr, Route: IV, Dosing Weight 51.165 kg, Total Volume: 1,000, Start date: 08/20/16 22:49:00 RECEPTION AGENT, Duration: 1 doses or times, Stop date: 08/20/16 23:48:00 RECEPTION AGENT Inactive 08/21/2016 [facility] Metoprolol 5 mg, 5 mL, Route: IVP, Drug form: INJ, Q4H, Dosing Weight 51.165, kg, Start date: 08/20/16 20:00:00 RECEPTION AGENT, Duration: 30 day, Stop date: 09/19/16 16:00:00 CSTNotes: (Same as: Lopressor) Push over 2 minutes No Longer Active 08/21/2016 [facility] Zofran 4 mg, 2 mL, Route: IVP, Drug form: INJ, Q6H, Dosing Weight 51.165, kg, PRN Nausea, Start date: 08/20/16 19:06:00 RECEPTION AGENT, Duration: 30 day, Stop date: 09/19/16 19:05:00 CSTNotes: (Same as: Zofran) MEDICATION WASTE Product Size: 4 mg Product Wasted: ___ mg No Longer Active 08/21/2016 [facility] Zofran 4 mg, Route: IVP, Drug form: INJ, Q8H, Dosing Weight 51.165, kg, PRN Nausea, Start date: 08/20/16 19:03:00 RECEPTION AGENT, Duration: 30 day, Stop date: 09/19/16 19:02:00 RECEPTION AGENT Inactive 08/21/2016 [facility] Insulin, Aspart, Human 10 unit, 0.1 mL, Route: SUB-Q, Drug form: SOLN, Sliding Scale, Dosing Weight 51.165, kg, PRN Blood Glucose Results, Start date: 08/20/16 16:32:00 RECEPTION AGENT, Duration: 30 day, Stop date: 09/19/16 16:31:00 CSTNotes: Roll in palms of hands gently; Do not shake vigorously. (Same as: NovoLOG) "single patient use only" WASTE: F/P - Black; E - Municipal Trash Bin Stable for 28 days at room temperature. Expires in days from Date No Longer Active 08/20/2016 [facility] Dextrose 50% Syringe 12.5 gm, 25 mL, Route: IVP, Drug Form: INJ, Dosing Weight 51.165, kg, PRN, PRN Blood Glucose Results, Start date: 08/20/16 16:32:00 RECEPTION AGENT, Duration: 30 day, Stop date: 09/19/16 16:31:00 RECEPTION AGENT No Longer Active 08/20/2016 [facility] Glucagon 1 mg, Route: IM, Drug form: PDR/INJ, PRN, Dosing Weight 51.165, kg, PRN Blood Glucose Results, Start date: 08/20/16 16:32:00 RECEPTION AGENT, Duration: 30 day, Stop date: 09/19/16 16:31:00 RECEPTION AGENT No Longer Active 08/20/2016 [facility] Sodium Chloride 0.154 MEQ/ML Injectable Solution 1,000 mL, Rate: 25 ml/hr, Infuse over: 40 hr, Route: IV, Dosing Weight 51.165 kg, Total Volume: 1,000, Start date: 08/20/16 13:32:00 RECEPTION AGENT, Duration: 1 day, Stop date: 08/21/16 13:31:00 RECEPTION AGENT Inactive 08/20/2016 [facility] Metoprolol 5 mg, 5 mL, Route: IVP, Drug form: INJ, Q6H, Dosing Weight 51.165, kg, Hold if sBPNotes: (Same as: Lopressor) Push over 2 minutes Inactive 08/20/2016 [facility] sodium chloride 0.9% 1000 ml INJ 1,000 mL 1,000 mL, Rate: 41.67 ml/hr, Infuse over: 24 hr, Route: IV, Dosing Weight 51.165 kg, Total Volume: 1,000, Start date: 08/20/16 8:57:00 RECEPTION AGENT, Duration: 30 day, Stop date: 09/19/16 8:56:00 RECEPTION AGENT Inactive 08/20/2016 [facility] potassium chloride 10 mEq, 100 mL, Route: IVPB, Drug form: INJ, Q1H, Dosing Weight 51.165, kg, Total Dose=40 meq, Start date: 08/19/16 18:00:00 RECEPTION AGENT, Duration: 4 doses or times, Stop date: 08/19/16 21:00:00 RECEPTION AGENT, Peripheral LineNotes: Infuse at a rate of 10 mEq/hr. (Same as: KCL) Inactive 08/20/2016 [facility] Vancomycin 1,250 mg, Route: IVPB, [id number], Dosing Weight 51.165, kg, Start date: 08/19/16 9:00:00 RECEPTION AGENT, Stop date: 09/18/16 2:00:00 CSTNotes: TIME CRITICAL MEDICATION (Same As: Vancocin) Infusion rate 2001 mg: infuse over 2.5 hours MEDICATION WASTE Product Size: 1000 mg Product Wasted: ___ mg No Longer Active 08/19/2016 [facility] vancomycin + sodium chloride 0.9% INJ 250 mL 1 gm, Route: IVPB, [id number], Dosing Weight 51.165, kg, Start date: 08/19/16 0:30:00 RECEPTION AGENT, Duration: 30 day, Stop date: 09/17/16 16:30:00 CSTNotes: TIME CRITICAL MEDICATION (Same As: Vancocin) Infusion rate 2001 mg: infuse over 2.5 hours MEDICATION WASTE Product Size: 1000 mg Product Wasted: ___ mg Inactive 08/19/2016 [facility] *RN - PLEASE DO NOT GIVE VANCO UNTIL TROUGH IS DRAWN * *RN - PLEASE DO NOT GIVE VANCO UNTIL TROUGH IS DRAWN *, REMINDER, Drug form: MISC, Route: MISC, Daily, 08/18/16 23:00:00 RECEPTION AGENT, Duration: 2 hr, Stop date: 08/18/16 23:00:00 RECEPTION AGENT Inactive 08/19/2016 [facility] D5W 1/2NS 1,000 mL 1,000 mL, Rate: 75 ml/hr, Infuse over: 13.3 hr, Route: IV, Dosing Weight 51.165 kg, Total Volume: 1,000, Start date: 08/18/16 19:47:00 RECEPTION AGENT, Stop date: 09/17/16 19:46:00 RECEPTION AGENT No Longer Active 08/19/2016 [facility] Metoprolol 5 mg, 5 mL, Route: IV, Drug form: INJ, ONCE, Dosing Weight 51.165, kg, Start date: 08/18/16 19:47:00 RECEPTION AGENT, Stop date: 08/18/16 19:47:00 CSTNotes: (Same as: Lopressor) Push over 2 minutes Inactive 08/19/2016 [facility] cefepime 1 gm, Route: IVPB, [id number], Dosing Weight 51.165, kg, Start date: 08/18/16 4:00:00 RECEPTION AGENT, Stop date: 09/16/16 16:00:00 CSTNotes: (Same As: Maxipime) MEDICATION WASTE Product Size: 1000 mg Product Wasted: ___ mg No Longer Active 08/18/2016 [facility] Dilaudid 0.5 mg, 0.5 mL, Route: IV, Drug form: INJ, Q3H, Dosing Weight 51.165, kg, PRN Pain Score 4-6, Start date: 08/18/16 2:18:00 RECEPTION AGENT, Duration: 30 day, Stop date: 09/17/16 2:17:00 RECEPTION AGENT No Longer Active 08/18/2016 [facility] Methimazole 10 mg, 1 tab, Route: PO, Drug form: TAB, Q8H, Dosing Weight 51.165, kg, Start date: 08/18/16 0:00:00 RECEPTION AGENT, Duration: 30 day, Stop date: 09/16/16 16:00:00 RECEPTION AGENT No Longer Active 08/18/2016 [facility] Vancomycin 1.25 gm, 250 mL, Route: IVPB, Drug form: INJ, ABXQ8H, Dosing Weight 51.165, kg, Start date: 08/18/16 0:00:00 RECEPTION AGENT, Duration: 30 day, Stop date: 09/16/16 16:00:00 CSTNotes: TIME CRITICAL MEDICATION Same as: Vancocin-NS (premixed) Infusion rate 2001 mg: infuse over 2.5 hours No Longer Active 08/18/2016 [facility] insulin detemir 10 unit, 0.1 mL, Route: SUB-Q, Drug form: INJ, Q12H, Dosing Weight 51.165, kg, Start date: 08/17/16 22:00:00 RECEPTION AGENT, Duration: 30 day, Stop date: 09/16/16 21:00:00 CSTNotes: Same as Levemir Do not hold insulin without contacting prescriber WASTE: F/P - Black; E - Municipal Trash Bin "single patient use only" No Longer Active 08/18/2016 [facility] Lovenox 40 mg, 0.4 mL, Route: SUB-Q, Drug form: INJ, [id number], Dosing Weight 51.165, kg, Start date: 08/17/16 22:00:00 RECEPTION AGENT, Duration: 30 day, Stop date: 09/15/16 22:00:00 CSTNotes: (Same as: Lovenox) No Longer Active 08/18/2016 [facility] metoprolol tartrate 25 mg, 1 tab, Route: PO, Drug form: TAB, Q12H, Dosing Weight 51.165, kg, Start date: 08/17/16 22:00:00 RECEPTION AGENT, Duration: 30 day, Stop date: 09/16/16 21:00:00 CSTNotes: (Same as: Lopressor) No Longer Active 08/18/2016 [facility] Protonix 40 mg, Route: IVP, Drug form: INJ, Before Dinner, Dosing Weight 51.165, kg, Start date: 08/17/16 22:00:00 RECEPTION AGENT, Duration: 30 day, Stop date: 09/16/16 16:30:00 CSTNotes: For IV push reconstitute with 10 ml 0.9% sodium chloride and push over 2 minutes. (Same as: Protonix) No Longer Active 08/18/2016 [facility] Vancomycin 1 ea, Route: MISC, Dosing Weight 51.165, kg, ONCALL, Start date: 08/17/16 22:00:00 RECEPTION AGENT, Duration: 1 doses or times, Pharmacy to dose Inactive 08/18/2016 [facility] Acetaminophen 325 MG / Hydrocodone Bitartrate 5 MG Oral Tablet [[place] 5/325] 1 tab, Route: PO, Drug Form: TAB, Dosing Weight 51.165, kg, Q6H, PRN Pain Score 1-3, Start date: 08/17/16 21:13:00 RECEPTION AGENT, Duration: 30 day, Stop date: 09/16/16 21:12:00 CSTNotes: (Same as: [place] 325/5) Do not exceed 4gm/day of acetaminophen. No Longer Active 08/18/2016 [facility] Dilaudid 0.5 mg, 0.5 mL, Route: IVP, Drug form: INJ, Q4H, Dosing Weight 51.165, kg, PRN Pain Score 7-10, Start date: 08/17/16 21:13:00 RECEPTION AGENT, Duration: 30 day, Stop date: 09/16/16 21:12:00 RECEPTION AGENT No Longer Active 08/18/2016 [facility] Insulin, Aspart, Human 2 unit, 0.02 mL, Route: SUB-Q, Drug form: SOLN, TID-Before Meals, Dosing Weight 51.165, kg, PRN Blood Glucose Results, Start date: 08/17/16 21:09:00 RECEPTION AGENT, Duration: 30 day, Stop date: 09/16/16 21:08:00 CSTNotes: Roll in palms of hands gently; Do not shake vigorously. (Same as: NovoLOG) "single patient use only" WASTE: F/P - Black; E - Municipal Trash Bin Stable for 28 days at room temperature. Expires in days from Date No Longer Active 08/18/2016 [facility] Dextrose 50% Syringe 12.5 gm, 25 mL, Route: IVP, Drug Form: INJ, Dosing Weight 51.165, kg, PRN, PRN Blood Glucose Results, Start date: 08/17/16 21:09:00 RECEPTION AGENT, Duration: 30 day, Stop date: 09/16/16 21:08:00 RECEPTION AGENT No Longer Active 08/18/2016 [facility] Glucagon 1 mg, Route: IM, Drug form: PDR/INJ, PRN, Dosing Weight 51.165, kg, PRN Blood Glucose Results, Start date: 08/17/16 21:09:00 RECEPTION AGENT, Duration: 30 day, Stop date: 09/16/16 21:08:00 RECEPTION AGENT No Longer Active 08/18/2016 [facility] Acetaminophen 650 mg, 20.3 mL, Route: PO, Drug form: LIQ, Q6H, Dosing Weight 51.165, kg, PRN For Temp > 100.4 F, Start date: 08/17/16 21:05:00 RECEPTION AGENT, Duration: 30 day, Stop date: 09/16/16 21:04:00 CSTNotes: Max pqyujrcojllea=6930tn/day (4 gm/day). (Same as: Tylenol) No Longer Active 08/18/2016 [facility] Morphine 2 mg, 0.5 mL, Route: IV, Drug form: SOLN, Q4H, Dosing Weight 51.165, kg, PRN Pain Score 4-6, Start date: 08/17/16 20:13:00 RECEPTION AGENT, Duration: 30 day, Stop date: 09/16/16 20:12:00 CSTNotes: (Same as:MORPhine Sulfate) No Longer Active 08/18/2016 [facility] vancomycin 1.25 gm, 250 mL, Route: IVPB, Drug form: INJ, ABXQ8H, Start date: 08/17/16 16:00:00 RECEPTION AGENT, Duration: 30 day, Stop date: 09/16/16 8:00:00 CSTNotes: TIME CRITICAL MEDICATION Same as: Vancocin-NS (premixed) Infusion rate 2001 mg: infuse over 2.5 hours Inactive 08/17/2016 [facility] insulin detemir 100 units/mL subcutaneous solution 15 unit, SUB-Q, Bedtime, 0 Refill(s) Active 08/16/2016 [facility] metoprolol tartrate 25 mg oral tablet 25 mg=1 tab, PO, Q12H, 0 Refill(s) Active 08/16/2016 [facility] lansoprazole 3 mg/mL oral suspension PO, Before Dinner, 0 Refill(s) Active 08/16/2016 [facility] Docusate Sodium 100 MG Oral Capsule 100 mg=1 cap, PO, BID, PRN Constipation, 0 Refill(s) Active 08/16/2016 [facility] Albuterol 0.833 MG/ML / Ipratropium [place] 0.167 MG/ML Inhalant Solution 3 mL, NEB, Q6H, PRN Shortness of breath, 0 Refill(s) Active 08/16/2016 [facility] Potassium Chloride 1.33 MEQ/ML Oral Solution 40 mEq=30 mL, PO, Daily, 0 Refill(s) Active 08/16/2016 [facility] Acetaminophen 325 MG / Oxycodone Hydrochloride 5 MG Oral Tablet 2 tab, PO, Q6H, PRN Pain Score 4-6, 0 Refill(s) Active 08/16/2016 [facility] potassium chloride 10 mEq, 100 mL, Route: IVPB, Drug form: INJ, Q1H, Dosing Weight 60, kg, Total Dose=20 meq, Start date: 08/16/16 9:00:00 RECEPTION AGENT, Duration: 2 doses or times, Stop date: 08/16/16 10:00:00 RECEPTION AGENT, Peripheral LineNotes: Infuse at a rate of 10 mEq/hr. (Same as: KCL) Inactive 08/16/2016 [facility] vancomycin + sodium chloride 0.9% INJ 250 mL 1,000 mg, Route: IVPB, [id number], Start date: 08/16/16 1:00:00 RECEPTION AGENT, Duration: 30 day, Stop date: 09/14/16 17:00:00 CSTNotes: TIME CRITICAL MEDICATION (Same As: Vancocin) Infusion rate 2001 mg: infuse over 2.5 hours MEDICATION WASTE Product Size: 1000 mg Product Wasted: ___ mg No Longer Active 08/16/2016 [facility] Lopressor 5 mg, 5 mL, Route: IVP, Drug form: INJ, Q12H, Start date: 08/15/16 23:31:00 RECEPTION AGENT, Duration: 30 day, Stop date: 09/14/16 21:00:00 CSTNotes: (Same as: Lopressor) Push over 2 minutes No Longer Active 08/16/2016 [facility] D5W 1/2NS 1,000 mL 1,000 mL, Rate: 60 ml/hr, Infuse over: 16.7 hr, Route: IV, Dosing Weight 60 kg, Total Volume: 1,000, Start date: 08/15/16 15:29:00 RECEPTION AGENT, Duration: 30 day, Stop date: 09/14/16 15:28:00 RECEPTION AGENT No Longer Active 08/15/2016 [facility] sodium phosphate 30 mmol, 250 mL, Route: IVPB, Drug form: INJ, ONCE, Dosing Weight 60, kg, Start date: 08/15/16 12:22:00 RECEPTION AGENT, Stop date: 08/15/16 12:22:00 RECEPTION AGENT Inactive 08/15/2016 [facility] sodium phosphate 30 mmol, 250 mL, Route: IVPB, Drug form: INJ, PRN, Dosing Weight 60, kg, PRN Abnormal Lab Result, Start date: 08/15/16 9:14:00 RECEPTION AGENT, Duration: 30 day, Stop date: 09/14/16 9:13:00 RECEPTION AGENT Inactive 08/15/2016 [facility] metoprolol tartrate 25 mg, 1 tab, Route: PO, Drug form: TAB, Q12H, Dosing Weight 60, kg, Start date: 08/14/16 21:00:00 RECEPTION AGENT, Duration: 30 day, Stop date: 09/13/16 9:00:00 CSTNotes: (Same as: Lopressor) No Longer Active 08/15/2016 [facility] albumin human 25% intravenous solution 25 gm, 100 mL, Route: IVPB, Drug form: INJ, ONCE, Dosing Weight 60, kg, Start date: 08/14/16 20:00:00 RECEPTION AGENT, Stop date: 08/14/16 20:00:00 CSTNotes: Lot #: Mfg: (Same as: Plasbumin-25) "blood product derivative" WASTE: F/P - Red; E -Red MEDICATION WASTE Product Size: 25 gm Product Wasted: ___ gm Inactive 08/15/2016 [facility] Vancomycin 1 ea, Route: MISC, Dosing Weight 60, kg, ONCALL, Start date: 08/14/16 16:00:00 RECEPTION AGENT, Duration: 1 doses or times, Pharmacy to dose Inactive 08/14/2016 [facility] VANCOMCYIN Pharmacy Dosing Protocol VANCOMCYIN Pharmacy Dosing Protocol, misc, Drug form: MISC, Route: MISC, ONCALL, 08/14/16 16:00:00 RECEPTION AGENT, Duration: 30 day, Stop date: 09/13/16 15:59:00 RECEPTION AGENT No Longer Active 08/14/2016 [facility] Sodium Chloride 0.154 MEQ/ML Injectable Solution 500 mL, 500 ml/hr, Infuse Over: 1 hr, Route: IV, 500, Drug form: INJ, ONCE, Priority: STAT, Dosing Weight 60 kg, Start date: 08/14/16 11:17:00 RECEPTION AGENT, Duration: 1 doses or times, Stop date: 08/14/16 11:17:00 RECEPTION AGENT Inactive 08/14/2016 [facility] albumin human 25% intravenous solution 25 gm, 100 mL, Route: IVPB, Drug form: INJ, Q6H, Dosing Weight 60, kg, Start date: 08/14/16 0:00:00 RECEPTION AGENT, Duration: 6 doses or times, Stop date: 08/15/16 6:00:00 CSTNotes: Lot #: Mfg: (Same as: Plasbumin-25) "blood product derivative" WASTE: F/P - Red; E -Red MEDICATION WASTE Product Size: 25 gm Product Wasted: ___ gm Inactive 08/14/2016 [facility] vancomycin + sodium chloride 0.9% INJ 250 mL 1 gm, Route: IVPB, [id number], Dosing Weight 60, kg, Start date: 08/14/16 0:00:00 RECEPTION AGENT, Duration: 30 day, Stop date: 09/12/16 12:00:00 CSTNotes: TIME CRITICAL MEDICATION (Same As: Vancocin) Infusion rate 2001 mg: infuse over 2.5 hours MEDICATION WASTE Product Size: 1000 mg Product Wasted: ___ mg No Longer Active 08/14/2016 [facility] cefepime + sodium chloride 0.9% INJ 100 mL 1 gm, Route: IVPB, [id number], Dosing Weight 60, kg, (CrCl >/=50 ml/min), Priority: Routine, Start date: 08/13/16 21:00:00 RECEPTION AGENT, Duration: 30 day, Stop date: 09/12/16 13:00:00 CSTNotes: (Same As: Maxipime) MEDICATION WASTE Product Size: 1000 mg Product Wasted: ___ mg No Longer Active 08/14/2016 [facility] Trazodone 50 mg, 1 tab, Route: PO, Drug form: TAB, Bedtime, Dosing Weight 60, kg, PRN Insomnia, Start date: 08/13/16 19:03:00 RECEPTION AGENT, Duration: 30 day, Stop date: 09/12/16 19:02:00 CSTNotes: (Same As: Desyrel) No Longer Active 08/14/2016 [facility] potassium phosphate 30 mmol, 250 mL, Route: IVPB, Drug form: INJ, ONCE, Dosing Weight 60, kg, Start date: 08/13/16 16:55:00 RECEPTION AGENT, Stop date: 08/13/16 16:55:00 CSTNotes: (Same as: K Phosphate.) Inactive 08/13/2016 [facility] Magnesium Sulfate 2 gm, 50 mL, Route: IVPB, Drug form: INJ, ONCE, Dosing Weight 60, kg, Start date: 08/13/16 16:54:00 RECEPTION AGENT, Duration: 2 hr, Stop date: 08/13/16 16:54:00 CSTNotes: WASTE: F/P - Sink; E - Municipal Trash Bin Inactive 08/13/2016 [facility] Vancomycin 1 ea, Route: MISC, Drug Form: INJ, Dosing Weight 60, kg, ONCALL, Start date: 08/13/16 15:00:00 RECEPTION AGENT, Duration: 1 doses or times, Pharmacy to doseNotes: TIME CRITICAL MEDICATION (Same As: Vancocin) Infusion rate 2001 mg: infuse over 2.5 hours MEDICATION WASTE Product Size: 1000 mg Product Wasted: ___ mg No Longer Active 08/13/2016 [facility] cefepime 1 gm, Route: IVPB, [id number], Dosing Weight 60, kg, (CrCl >/=50 ml/min), Priority: STAT, Start date: 08/13/16 14:34:00 RECEPTION AGENT, Duration: 30 day, Stop date: 09/12/16 5:00:00 CSTNotes: (Same As: Maxipime) MEDICATION WASTE Product Size: 1000 mg Product Wasted: ___ mg Inactive 08/13/2016 [facility] Potassium Chloride 1.33 MEQ/ML Oral Solution 40 mEq, 30 mL, Route: PO, Drug form: LIQ, Daily, Dosing Weight 60, kg, Start date: 08/13/16 9:00:00 RECEPTION AGENT, Duration: 30 day, Stop date: 09/11/16 9:00:00 CSTNotes: (Same as: Potassium Chloride) No Longer Active 08/13/2016 [facility] Omnipaque 300 injectable solution 75 mL, Route: IVP, Drug Form: SOLN, Dosing Weight 60, kg, ONCALL, GFR > 45 mL/min, Start date: 08/13/16 8:00:00 RECEPTION AGENT, Duration: 1 doses or timesNotes: (Same as:Omnipaque 300). WASTE: F/P - Black; E - Municipal Trash Bin Inactive 08/13/2016 [facility] Readi-Cat 2 450 mL, Route: PO, Drug Form: SUSP, ONCALL, Start date: 08/13/16 3:00:00 RECEPTION AGENT, Duration: 30 day, Stop date: 09/12/16 2:59:00 CSTNotes: Same as Readi-Cat 2 Inactive 08/13/2016 [facility] potassium phosphate 15 mmol, 250 mL, Route: IVPB, Drug form: INJ, ONCE, Dosing Weight 60, kg, Start date: 08/12/16 16:15:00 RECEPTION AGENT, Stop date: 08/12/16 16:15:00 CSTNotes: (Same as: K Phosphate) Inactive 08/12/2016 [facility] insulin detemir 15 unit, 0.15 mL, Route: SUB-Q, Drug form: INJ, Bedtime, Dosing Weight 49.5, kg, Start date: 08/11/16 21:00:00 RECEPTION AGENT, Duration: 30 day, Stop date: 09/09/16 21:00:00 CSTNotes: Same as Levemir Do not hold insulin without contacting prescriber WASTE: F/P - Black; E - Municipal Trash Bin "single patient use only" No Longer Active 08/12/2016 [facility] potassium phosphate-sodium phosphate 250 mg-280 mg-160 mg oral powder for reconstitution 2 pkt, Route: PO, Drug Form: PDR/REC, Dosing Weight 60, kg, Q4H, Start date: 08/11/16 16:00:00 RECEPTION AGENT, Duration: 2 doses or times, Stop date: 08/11/16 20:00:00 CSTNotes: (Same as: Phos-NaK) Each 1.5 gm pkt has 250mg phosphorous. Mix w/2.5oz water and stir. Inactive 08/11/2016 [facility] Magnesium Sulfate 2 gm, 50 mL, Route: IVPB, Drug form: INJ, ONCE, Dosing Weight 60, kg, Start date: 08/11/16 15:59:00 RECEPTION AGENT, Duration: 2 hr, Stop date: 08/11/16 15:59:00 CSTNotes: WASTE: F/P - Sink; E - Municipal Trash Bin Inactive 08/11/2016 [facility] insulin detemir 10 unit, 0.1 mL, Route: SUB-Q, Drug form: INJ, Bedtime, Dosing Weight 49.5, kg, Start date: 08/10/16 21:00:00 RECEPTION AGENT, Duration: 30 day, Stop date: 09/08/16 21:00:00 CSTNotes: Same as Levemir Do not hold insulin without contacting prescriber WASTE: F/P - Black; E - Municipal Trash Bin "single patient use only" No Longer Active 08/11/2016 [facility] Potassium Chloride 1.33 MEQ/ML Oral Solution 40 mEq, 30 mL, Route: NG, Drug form: LIQ, ONCE, Dosing Weight 60, kg, Start date: 08/10/16 15:32:00 RECEPTION AGENT, Stop date: 08/10/16 15:32:00 CSTNotes: (Same as: Potassium Chloride) Inactive 08/10/2016 [facility] Potassium Chloride 1.33 MEQ/ML Oral Solution 40 mEq, 30 mL, Route: PO, Drug form: LIQ, ONCE, Dosing Weight 60, kg, Start date: 08/10/16 15:31:00 RECEPTION AGENT, Stop date: 08/10/16 15:31:00 CSTNotes: (Same as: Potassium Chloride) Inactive 08/10/2016 [facility] Magnesium Sulfate 2 gm, 50 mL, Route: IVPB, Drug form: INJ, ONCE, Dosing Weight 60, kg, Total dose=2 gm, Start date: 08/10/16 15:30:00 RECEPTION AGENT, Duration: 1 doses or times, Stop date: 08/10/16 15:30:00 CSTNotes: WASTE: F/P - Sink; E - [facility] Trash Bin Inactive 08/10/2016 [facility] Promethazine 25 mg, 1 mL, Route: IM, Drug form: INJ, Q4H, Dosing Weight 60, kg, PRN Nausea & Vomiting, Start date: 08/10/16 14:00:00 RECEPTION AGENT, Duration: 30 day, Stop date: 09/09/16 13:59:00 CSTNotes: Do not give IV push. (Same as: Phenergan) No Longer Active 08/10/2016 [facility] Prevacid 30 mg, 10 mL, Route: PO, Drug form: SUSP, Before Dinner, Start date: 08/09/16 16:30:00 RECEPTION AGENT, Duration: 30 day, Stop date: 09/07/16 16:30:00 CSTNotes: Take 1 hour before or 2 hours after meal; Expires in 14 days. Shake well before use. (Same as:Prevacid) Compounded Product - formulation not commercially available No Longer Active 08/09/2016 [facility] Protonix 40 mg, Route: NG, Drug form: GRAN/REC, Before Dinner, Dosing Weight 60, kg, Start date: 08/09/16 16:30:00 RECEPTION AGENT, Duration: 30 day, Stop date: 09/07/16 16:30:00 RECEPTION AGENT Inactive 08/09/2016 [facility] potassium phosphate 30 mmol, 250 mL, Route: IVPB, Drug form: INJ, ONCE, Dosing Weight 60, kg, Start date: 08/09/16 14:20:00 RECEPTION AGENT, Stop date: 08/09/16 14:20:00 CSTNotes: (Same as: K Phosphate.) Inactive 08/09/2016 [facility] Fluconazole 200 mg, 100 mL, Route: IVPB, Drug form: INJ, [id number], Dosing Weight 60, kg, Priority: STAT, Start date: 08/08/16 18:27:00 RECEPTION AGENT, Duration: 30 day, Stop date: 09/06/16 18:27:00 CSTNotes: (Same as: Diflu can) Do not refrigerate No Longer Active 08/09/2016 [facility] potassium chloride 20 mEq, 100 mL, Route: IVPB, Drug form: INJ, Q2H, Start date: 08/08/16 10:00:00 RECEPTION AGENT, Duration: 3 doses or times, Stop date: 08/08/16 14:00:00 CSTNotes: (Same as: KCL) Infuse no faster than 10 mEq/hr if given peripherally. Inactive 08/08/2016 [facility] vancomycin + sodium chloride 0.9% INJ 250 mL 1,000 mg, Route: IVPB, [id number], Start date: 08/07/16 23:00:00 RECEPTION AGENT, Stop date: 09/05/16 23:00:00 CSTNotes: TIME CRITICAL MEDICATION (Same As: Vancocin) Infusion rate 2001 mg: infuse over 2.5 hours MEDICATION WASTE Product Size: 1000 mg Product Wasted: ___ mg No Longer Active 08/08/2016 [facility] Vancomycin Pharmacy Following Vancomycin Pharmacy Following, 1 ea, Drug form: MISC, Route: MISC, PRN, PRN Other -See Comment, 08/07/16 22:50:00 RECEPTION AGENT, Duration: 30 day, Stop date: 09/06/16 22:49:00 RECEPTION AGENT No Longer Active 08/08/2016 [facility] Promethazine 25 mg, 1 mL, Route: IV Central, Drug form: INJ, Q4H, Dosing Weight 60, kg, PRN Nausea & Vomiting, Start date: 08/07/16 22:11:00 RECEPTION AGENT, Duration: 30 day, Stop date: 09/06/16 22:10:00 CSTNotes: Do not gi ve IV push. (Same as: Phenergan) No Longer Active 08/08/2016 [facility] albumin human 25% intravenous solution 25 gm, 100 mL, Route: IVPB, Drug form: INJ, Q6H, Dosing Weight 60, kg, Start date: 08/07/16 0:00:00 RECEPTION AGENT, Stop date: 08/08/16 18:00:00 CSTNotes: LOT#: Mfg: WASTE: F/P - Red; E -Red (Same as: Albuminar) "blood product derivative" No Longer Active 08/07/2016 [facility] Zosyn 3.375 gm, Route: IVPB, ABXQ8H, Dosing Weight 60, kg, CrCl >=20 ml/min infuse over 4 hours, Start date: 08/06/16 21:00:00 RECEPTION AGENT, Duration: 30 day, Stop date: 09/05/16 13:00:00 CSTNotes: (Same as: Zosyn) Dosing based on Piperacillin component MEDICATION WASTE Product Size: 3375 mg Product Wasted: ___ mg No Longer Active 08/07/2016 [facility] Morphine 1 mg, 0.25 mL, Route: IVP, Drug form: SOLN, ONCE, Dosing Weight 60, kg, Start date: 08/06/16 17:45:00 RECEPTION AGENT, Stop date: 08/06/16 17:45:00 CSTNotes: (Same as:MORPhine Sulfate) Inactive 08/06/2016 [facility] Omnipaque 300 injectable solution 75 mL, Route: IVP, Drug Form: SOLN, Dosing Weight 60, kg, ONCALL, GFR > 45 mL/min, STAT, Start date: 08/06/16 17:41:00 RECEPTION AGENT, Duration: 1 doses or timesNotes: (Same as:Omnipaque 300). WASTE: F/P - Black; E - Municipal Trash Bin Inactive 08/06/2016 [facility] Zofran 4 mg, Route: IVP, Drug form: INJ, ONCE, Dosing Weight 60, kg, Start date: 08/06/16 17:25:00 RECEPTION AGENT, Stop date: 08/06/16 17:25:00 RECEPTION AGENT Inactive 08/06/2016 [facility] Fentanyl 25 microgram, Route: IV, ONCE, Dosing Weight 60, kg, Start date: 08/06/16 17:20:00 RECEPTION AGENT, Stop date: 08/06/16 17:20:00 RECEPTION AGENT Inactive 08/06/2016 [facility] Fentanyl 25 microgram, Route: IV, ONCE, Dosing Weight 60, kg, Start date: 08/06/16 16:30:00 RECEPTION AGENT, Stop date: 08/06/16 16:30:00 RECEPTION AGENT Inactive 08/06/2016 [facility] Sodium Chloride 0.154 MEQ/ML Injectable Solution 100 mL, Rate: 10 ml/hr, Infuse over: 10 hr, Route: IVPB, Dosing Weight 60 kg, Total Volume: 100, Infuse at 8 mg / hr for 72 hours for GI bleeding, Start date: 08/06/16 16:13:00 RECEPTION AGENT, Duration: 72 hr, Stop date: 08/09/16 16:12:00 RECEPTION AGENT No Longer Active 08/06/2016 [facility] Dilaudid 0.5 mg, 0.5 mL, Route: IVP, Drug form: INJ, Q3H, Dosing Weight 60, kg, PRN Pain Score 7-10, Start date: 08/05/16 12:14:00 RECEPTION AGENT, Duration: 30 day, Stop date: 09/04/16 12:13:00 RECEPTION AGENT No Longer Active 08/05/2016 [facility] Dilaudid 1 mg, Route: IVP, Q3H, Dosing Weight 60, kg, PRN Pain Score 7-10, Start date: 08/05/16 12:13:00 RECEPTION AGENT, Duration: 30 day, Stop date: 09/04/16 12:12:00 RECEPTION AGENT Inactive 08/05/2016 [facility] Flagyl 500 mg, 100 mL, Route: IVPB, Drug form: INJ, ABXQ8H, Dosing Weight 60, kg, Start date: 07/28/16 20:00:00 RECEPTION AGENT, Duration: 30 day, Stop date: 08/27/16 12:00:00 CSTNotes: (Same as: Flagyl) Avoid alcohol. No Longer Active 07/29/2016 [facility] Omnipaque 300 injectable solution 75 mL, Route: IVP, Drug Form: SOLN, Dosing Weight 60, kg, ONCALL, GFR > 45 mL/min, STAT, Start date: 07/27/16 15:51:00 RECEPTION AGENT, Duration: 1 doses or timesNotes: (Same as:Omnipaque 300). WASTE: F/P - Black; E - Municipal Trash Bin Inactive 07/27/2016 [facility] Rocephin 1 gm, Route: IVPB, [id number], Dosing Weight 60, kg, Start date: 07/23/16 11:00:00 RECEPTION AGENT, Duration: 30 day, Stop date: 08/21/16 11:00:00 CSTNotes: (Same As: Rocephin). Use with 100 mL NS and infuse over 30 min MEDICATION WASTE Product Size: 1000 mg Product Wasted: ___ mg No Longer Active 07/23/2016 [facility] Sodium Chloride 0.9% IV 250 mL, Route: IVPB, Start date: 07/22/16 16:05:00 RECEPTION AGENT, Duration: 30 day, Stop date: 09/20/16 16:04:00 RECEPTION AGENT, PRN Line Flush No Longer Active 07/22/2016 [facility] BD Normal Saline Flush 10 mL, Route: IVP, Drug Form: INJ, PRN, PRN Line Flush, Start date: 07/22/16 16:05:00 RECEPTION AGENT, Duration: 30 day, Stop date: 09/20/16 16:04:00 CSTNotes: (Same as: BD Posiflush) No Longer Active 07/22/2016 [facility] potassium chloride 20 mEq, 100 mL, Route: IVPB, Drug form: INJ, Q2H, Dosing Weight 60, kg, Total dose=40 mEq, Start date: 07/22/16 10:00:00 RECEPTION AGENT, Duration: 2 doses or times, Stop date: 07/22/16 12:00:00 RECEPTION AGENT, Central LineNotes: (Same as: KCL) Infuse no faster than 10 mEq/hr if given peripherally. Inactive 07/22/2016 [facility] acetaminophen-oxycodone 325 mg-5 mg oral tablet 2 tab, Route: PO, Drug Form: TAB, Q6H, PRN Pain Score 4-6, Start date: 07/22/16 10:00:00 RECEPTION AGENT, Duration: 30 day, Stop date: 09/20/16 9:59:00 CSTNotes: Do not exceed 4gm/day of acetaminophen. (Same as: Percocet-5/325) No Longer Active 07/22/2016 [facility] Propranolol 40 mg, 1 tab, Route: PO, Drug form: TAB, QID, Dosing Weight 60, kg, Start date: 07/22/16 9:00:00 RECEPTION AGENT, Duration: 30 day, Stop date: 08/20/16 21:00:00 CSTNotes: Give with food. (Same as: Inderal) No Longer Active 07/22/2016 [facility] Normodyne 20 mg, 4 mL, Route: IVP, Drug form: INJ, ONCE, Start date: 07/22/16 2:54:00 RECEPTION AGENT, Stop date: 07/22/16 2:54:00 CSTNotes: (Same as: Normodyne, Trandate) Push over 2 minutes Give bolus over 2-3 minutes. Inactive 07/22/2016 [facility] Zosyn 3.375 gm, Route: IVPB, ABXQ6H, Dosing Weight 60, kg, Start date: 07/21/16 11:00:00 RECEPTION AGENT, Duration: 30 day, Stop date: 08/20/16 5:00:00 CSTNotes: (Same as: Zosyn) Dosing based on Piperacillin component MEDICATION WASTE Product Size: 3375 mg Product Wasted: ___ mg No Longer Active 07/21/2016 [facility] acetaminophen-hydrocodone 325 mg-10 mg oral tablet 1 tab, Route: PO, Drug Form: TAB, Q6H, PRN Pain Score 4-6, Start date: 07/21/16 10:57:00 RECEPTION AGENT, Duration: 30 day, Stop date: 08/20/16 10:56:00 CSTNotes: Do not exceed 4gm/day of acetaminophen. (Same as: [place] 325/10) No Longer Active 07/21/2016 [facility] sodium chloride 0.9% 1000 ml INJ 1,000 mL 1,000 mL, Rate: 60 ml/hr, Infuse over: 16.7 hr, Route: IV, Dosing Weight 60 kg, Total Volume: 1,000, Start date: 07/21/16 10:41:00 RECEPTION AGENT, Duration: 30 day, Stop date: 08/20/16 10:40:00 RECEPTION AGENT Inactive 07/21/2016 [facility] Acetaminophen 325 MG / Oxycodone Hydrochloride 10 MG Oral Tablet 1 tab, Route: PO, Drug Form: TAB, Dosing Weight 60, kg, Q6H, PRN Pain Score 4-6, Start date: 07/21/16 10:17:00 RECEPTION AGENT, Duration: 30 day, Stop date: 08/20/16 10:16:00 RECEPTION AGENT Inactive 07/21/2016 [facility] potassium chloride 20 mEq, 100 mL, Route: IVPB, Drug form: INJ, Q2H, Dosing Weight 60, kg, Total dose=40 mEq, Start date: 07/21/16 10:00:00 RECEPTION AGENT, Duration: 2 doses or times, Stop date: 07/21/16 12:00:00 RECEPTION AGENT, Central LineNotes: (Same as: KCL) Infuse no faster than 10 mEq/hr if given peripherally. Inactive 07/21/2016 [facility] potassium chloride 20 mEq, 100 mL, Route: IVPB, Drug form: INJ, Q2H, Dosing Weight 60, kg, Total dose=40 mEq, Start date: 07/19/16 10:00:00 RECEPTION AGENT, Duration: 2 doses or times, Stop date: 07/19/16 12:00:00 RECEPTION AGENT, Central LineNotes: (Same as: KCL) Infuse no faster than 10 mEq/hr if given peripherally. Inactive 07/19/2016 [facility] potassium chloride 20 mEq oral tablet, extended release 40 mEq, 2 tab, Route: PO, Drug form: ERTAB, Daily, Dosing Weight 60, kg, Start date: 07/19/16 9:00:00 RECEPTION AGENT, Duration: 30 day, Stop date: 08/17/16 9:00:00 CSTNotes: (Same as: K-Dur 20) "Do Not Crush" With food and full glass of water No Longer Active 07/19/2016 [facility] TPN solution, adult 1,130 mL 1,130 mL, Rate: 45 ml/hr, Infuse over: 25.1 hr, Route: IV, Dosing Weight 60 kg, Total Volume: 1,130, Start date: 07/18/16 22:00:00 RECEPTION AGENT, Stop date: 08/17/16 21:59:00 CSTNotes: Per hospital policy, bag must be changed every 24hr. No Longer Active 07/19/2016 [facility] hydromorphone 0.5 mg, 0.5 mL, Route: IVP, Drug form: INJ, ONCE, Start date: 07/18/16 18:28:00 RECEPTION AGENT, Stop date: 07/18/16 18:28:00 RECEPTION AGENT Inactive 07/19/2016 [facility] Readi-Cat 2 450 mL, Route: PO, Drug Form: SUSP, ONCALL, Start date: 07/18/16 14:00:00 RECEPTION AGENT, Duration: 30 day, Stop date: 08/17/16 13:59:00 CSTNotes: Same as Readi-Cat 2 Inactive 07/18/2016 [facility] Lasix 20 mg, 2 mL, Route: IVP, Drug form: INJ, Q12H, Dosing Weight 60, kg, Priority: NOW, Start date: 07/18/16 13:22:00 RECEPTION AGENT, Duration: 30 day, Stop date: 08/17/16 9:00:00 CSTNotes: (Same as: Lasix) No Longer Active 07/18/2016 [facility] potassium chloride 20 mEq, 100 mL, Route: IVPB, Drug form: INJ, Q2H, Dosing Weight 60, kg, Total dose=40 mEq, Start date: 07/18/16 10:00:00 RECEPTION AGENT, Duration: 2 doses or times, Stop date: 07/18/16 12:00:00 RECEPTION AGENT, Central LineNotes: (Same as: KCL) Infuse no faster than 10 mEq/hr if given peripherally. Inactive 07/18/2016 [facility] Acetaminophen 300 MG / Codeine Phosphate 30 MG Oral Tablet [Tylenol with Codeine #3] 1 tab, Route: PO, Drug Form: TAB, Dosing Weight 60, kg, Q6H, PRN Pain Score 1-5, Start date: 07/17/16 15:43:00 RECEPTION AGENT, Duration: 30 day, Stop date: 09/15/16 15:42:00 CSTNotes: Do not exceed 4gm/day of acet aminophen. (Same as: Tylenol with Codeine # 3) No Longer Active 07/17/2016 [facility] Hydromorphone 0.5 mg, 0.5 mL, Route: IV, Drug form: INJ, Q6H, Dosing Weight 65, kg, PRN Pain Score 6-10, Start date: 07/17/16 15:43:00 RECEPTION AGENT, Duration: 30 day, Stop date: 08/16/16 15:42:00 RECEPTION AGENT No Longer Active 07/17/2016 [facility] Lasix 20 mg, 2 mL, Route: IVP, Drug form: INJ, ONCE, Dosing Weight 143, kg, Start date: 07/16/16 16:13:00 RECEPTION AGENT, Stop date: 07/16/16 16:13:00 CSTNotes: (Same as: Lasix) MEDICATION WASTE Product Size: 40 mg Product Wasted: ___ mg Inactive 07/16/2016 [facility] Imodium A-D 2 mg, 1 cap, Route: PO, Drug form: CAP, ONCE, Dosing Weight 143, kg, Start date: 07/16/16 16:00:00 RECEPTION AGENT, Stop date: 07/16/16 16:00:00 CSTNotes: (Same as: Imodium) MAX adult dose is 8 caps/day Inactive 07/16/2016 [facility] Lasix 20 mg, 2 mL, Route: IVP, Drug form: INJ, ONCE, Dosing Weight 143, kg, Start date: 07/16/16 15:46:00 RECEPTION AGENT, Stop date: 07/16/16 15:46:00 CSTNotes: (Same as: Lasix) Inactive 07/16/2016 [facility] Lasix 20 mg, 2 mL, Route: IVP, Drug form: INJ, ONCE, Dosing Weight 143, kg, Start date: 07/16/16 13:31:00 RECEPTION AGENT, Stop date: 07/16/16 13:31:00 CSTNotes: (Same as: Lasix) Inactive 07/16/2016 [facility] Imodium A-D 2 mg, 1 cap, Route: PO, Drug form: CAP, ONCE, Dosing Weight 143, kg, Start date: 07/16/16 13:30:00 RECEPTION AGENT, Stop date: 07/16/16 13:30:00 CSTNotes: (Same as: Imodium) MAX adult dose is 8 caps/day Inactive 07/16/2016 [facility] DuoNeb inhalation solution 3 mL, Route: NEB, Drug Form: SOLN, Q6H, PRN Shortness of breath, Start date: 07/15/16 17:49:00 RECEPTION AGENT, Duration: 30 day, Stop date: 09/13/16 17:48:00 CSTNotes: (Same as: Duoneb) No Longer Active 07/15/2016 [facility] Metoprolol 5 mg, 5 mL, Route: IVP, Drug form: INJ, ONCE, Dosing Weight 143, kg, Start date: 07/15/16 13:43:00 RECEPTION AGENT, Stop date: 07/15/16 13:43:00 CSTNotes: (Same as: Lopressor) Push over 2 minutes Inactive 07/15/2016 [facility] potassium chloride 10 mEq, 100 mL, Route: IVPB, Drug form: INJ, Q1H, Dosing Weight 143, kg, Total Dose=40 meq, Start date: 07/15/16 12:00:00 RECEPTION AGENT, Duration: 4 doses or times, Stop date: 07/15/16 15:00:00 RECEPTION AGENT, Peripheral LineNotes: Infuse at a rate of 10 mEq/hr. (Same as: KCL) Inactive 07/15/2016 [facility] Lasix 20 mg, 2 mL, Route: IV, Drug form: INJ, ONCE, Start date: 07/12/16 13:10:00 RECEPTION AGENT, Stop date: 07/12/16 13:10:00 CSTNotes: (Same as: Lasix) Inactive 07/12/2016 [facility] loperamide 2 mg, 1 cap, Route: PO, Drug form: CAP, ONCE, Start date: 07/10/16 15:00:00 RECEPTION AGENT, Stop date: 07/10/16 15:00:00 CSTNotes: (Same as: Imodium) MAX adult dose is 8 caps/day Inactive 07/10/2016 [facility] potassium chloride 10 mEq, 100 mL, Route: IVPB, Drug form: INJ, Q1H, Dosing Weight 65, kg, Total Dose=40 meq, Start date: 07/10/16 14:00:00 RECEPTION AGENT, Duration: 4 doses or times, Stop date: 07/10/16 17:00:00 RECEPTION AGENT, Peripheral LineNotes: Infuse at a rate of 10 mEq/hr. (Same as: KCL) Inactive 07/10/2016 [facility] potassium chloride 20 mEq, 100 mL, Route: IVPB, Drug form: INJ, Q2H, Start date: 07/08/16 11:30:00 RECEPTION AGENT, Duration: 2 doses or times, Stop date: 07/08/16 13:30:00 CSTNotes: (Same as: KCL) Infuse no faster than 10 mEq/hr if given peripherally. Inactive 07/08/2016 [facility] potassium chloride 10 mEq, Route: IVPB, Q1H, Dosing Weight 65, kg, Total Dose=40 meq, Start date: 07/08/16 11:00:00 RECEPTION AGENT, Duration: 4 doses or times, Stop date: 07/08/16 14:00:00 RECEPTION AGENT, Peripheral Line Inactive 07/08/2016 [facility] potassium chloride 20 mEq oral tablet, extended release 20 mEq, 1 tab, Route: PO, Drug form: ERTAB, Daily, Dosing Weight 65, kg, Start date: 07/08/16 9:00:00 RECEPTION AGENT, Duration: 30 day, Stop date: 08/06/16 9:00:00 CSTNotes: (Same as: K-Dur 20) "Do Not Crush" With food and full glass of water No Longer Active 07/08/2016 [facility] Tapazole 10 mg, 1 tab, Route: PO, Drug form: TAB, Q8H, Dosing Weight 49.5, kg, Start date: 07/07/16 9:30:00 RECEPTION AGENT, Duration: 30 day, Stop date: 09/05/16 8:00:00 RECEPTION AGENT No Longer Active 07/07/2016 [facility] fat emulsion, intravenous 250 mL, 31.25 ml/hr, Route: IV, Drug Form: INJ, Q-M-W-F, Start date: 07/06/16 22:00:00 RECEPTION AGENT, Duration: 30 day, Stop date: 08/31/16 22:00:00 CSTNotes: (Same as: Intralipid, Liposyn) Infuse through a 1.2 micron filter No Longer Active 07/07/2016 [facility] TPN solution, adult 2,042 mL 2,042 mL, Rate: 83 ml/hr, Infuse over: 24.6 hr, Route: IV, Dosing Weight 65 kg, Total Volume: 2,042, Start date: 07/06/16 22:00:00 RECEPTION AGENT, Stop date: 07/18/16 22:00:00 CSTNotes: Per hospital policy, bag must be changed every 24hr. No Longer Active 07/07/2016 [facility] pantoprazole 40 mg, 1 tab, Route: PO, Drug form: ECTAB, Before Dinner, Dosing Weight 49.5, kg, Start date: 07/06/16 16:30:00 RECEPTION AGENT, Duration: 30 day, Stop date: 09/03/16 16:30:00 CSTNotes: Tablet should not be chewed or crushed. (Same as: Protonix) No Longer Active 07/06/2016 [facility] Hydromorphone 0.5 mg, 0.5 mL, Route: IV, Drug form: INJ, Q3H, Dosing Weight 65, kg, PRN Pain Score 6-10, Start date: 07/06/16 13:54:00 RECEPTION AGENT, Duration: 30 day, Stop date: 08/05/16 13:53:00 RECEPTION AGENT No Longer Active 07/06/2016 [facility] Morphine 30 mg, 30 mL, Route: IV, Initial Loading Dose: 2 mg, LOSS PREVENTION OFFICER Dose: 1 mg, LOSS PREVENTION OFFICER Lockout: 10 minutes, Continuous Basal Rate: 0 mg, 4 Hour Limit (In MG): 30, Drug Form: INJ, Continuous, Start date: 07/06/16 10: 00:00 RECEPTION AGENT, Duration: 30 day, Stop date: 08/05/16...Notes: Dose: Delay: Basal rate: 4hr limit: (Same as:Franklyni-Mayi) Inactive 07/06/2016 [facility] potassium chloride 20 mEq, 100 mL, Route: IVPB, Drug form: INJ, Q2H, Dosing Weight 65, kg, Total dose=60 mEq, Start date: 07/06/16 10:00:00 RECEPTION AGENT, Duration: 3 doses or times, Stop date: 07/06/16 14:00:00 RECEPTION AGENT, Central LineNotes: (Same as: KCL) Infuse no faster than 10 mEq/hr if given peripherally. Inactive 07/06/2016 [facility] Naloxone 0.04 mg, 0.1 mL, Route: IVP, Drug form: INJ, Q2MIN, Dosing Weight 65, kg, PRN Narcotic Reversal, Start date: 07/06/16 9:42:00 RECEPTION AGENT, Duration: 30 day, Stop date: 08/05/16 9:41:00 CSTNotes: Same as Narcan No Longer Active 07/06/2016 [facility] Magnesium Oxide 400 mg, 1 tab, Route: PO, Drug form: TAB, TID, Dosing Weight 49.5, kg, Start date: 07/06/16 9:00:00 RECEPTION AGENT, Duration: 30 day, Stop date: 09/03/16 17:00:00 CSTNotes: (Same as: Mag-Ox 400) Magnesium oxide [id number] elemental magnesium Dose=____mg magnesium oxide (___mg elemental magnesium) No Longer Active 07/06/2016 [facility] Cholestyramine Resin 4 gm, 1 pkt, Route: PO, Drug form: PDR/REC, Daily, Dosing Weight 49.5, kg, Start date: 07/06/16 9:00:00 RECEPTION AGENT, Duration: 30 day, Stop date: 09/03/16 9:00:00 CSTNotes: (Same As: Questran) No Longer Active 07/06/2016 [facility] Calcium Carbonate 500 MG Chewable Tablet 1,000 mg, 2 tab, Route: CHEW, Drug form: CHEWTAB, TID, Dosing Weight 49.5, kg, Start date: 07/06/16 9:00:00 RECEPTION AGENT, Duration: 30 day, Stop date: 09/03/16 17:00:00 CSTNotes: (Same As: Tums) Calcium Carbonate 500 az=961 mg elemental calcium Dose= mg calcium carbonate ( mg elemental calcium) No Longer Active 07/06/2016 [facility] Magnesium Sulfate 1 gm, 2 mL, Route: IV, ONCE, Dosing Weight 65, kg, Priority: NOW, Start date: 07/06/16 8:23:00 RECEPTION AGENT, Stop date: 07/06/16 8:23:00 CSTNotes: (Same as: MgSO4) WASTE: F/P - Sink; E - Municipal Trash Bin MEDICATION WASTE Product Size: 1000 mg Product Wasted: ___ mg Inactive 07/06/2016 [facility] Calcium Gluconate 2,000 mg, 20 mL, Route: IVPB, ONCE, Dosing Weight 65, kg, Start date: 07/06/16 8:23:00 RECEPTION AGENT, Stop date: 07/06/16 8:23:00 CSTNotes: WASTE: F/P - Sink; E - Municipal Trash Bin Inactive 07/06/2016 [facility] Amylases 287033 UNT / Endopeptidases 57296 UNT / Lipase 85328 UNT Enteric Coated Capsule [Creon 24] 2 cap, Route: PO, Drug Form: DRC, Dosing Weight 49.5, kg, TID-Before Meals, Start date: 07/06/16 7:30:00 RECEPTION AGENT, Duration: 30 day, Stop date: 09/03/16 16:30:00 CSTNotes: Same as: Creon DRC 24 : lipase 2 4,000 units, protease 76,000 units, amylase 120,000 units No Longer Active 07/06/2016 [facility] Methimazole 10 mg, 1 tab, Route: PO, Drug form: TAB, Q8H, Dosing Weight 49.5, kg, Start date: 07/06/16 0:00:00 RECEPTION AGENT, Duration: 30 day, Stop date: 08/04/16 16:00:00 RECEPTION AGENT No Longer Active 07/06/2016 [facility] Magnesium Oxide 400 mg, 1 tab, Route: PO, Drug form: TAB, TID, Dosing Weight 49.5, kg, Start date: 07/05/16 22:00:00 RECEPTION AGENT, Duration: 30 day, Stop date: 08/04/16 14:00:00 CSTNotes: (Same as: Mag-Ox 400) Magnesium oxid e [id number] elemental magnesium Dose=____mg magnesium oxide (___mg elemental magnesium) Inactive 07/06/2016 [facility] fat emulsion, intravenous 250 mL IV, 31.25 ml/hr, Start date: 07/05/16 22:00:00 RECEPTION AGENT, Duration: 8, 250 ml, 49.5Notes: (Same as: Intralipid, Liposyn) Infuse through a 1.2 micron filter Inactive 07/06/2016 [facility] Calcium Carbonate 1,000 mg, 2 tab, Route: CHEW, Drug form: CHEWTAB, TID, Dosing Weight 49.5, Start date: 07/05/16 22:00:00 RECEPTION AGENT, Duration: 30 day, Stop date: 08/04/16 14:00:00 CSTNotes: (Same As: Tums) Calcium Carbonate 500 ls=228 mg elemental calcium Dose= mg calcium carbonate ( mg elemental calcium) Inactive 07/06/2016 [facility] TPN, adult solution 2,050 mL 2,050 mL, Rate: 83 ml/hr, Infuse over: 24.7 hr, Route: IV, Dosing Weight 49.5 kg, Total Volume: 2,050, Start date: 07/05/16 22:00:00 RECEPTION AGENT, Duration: 1 day, Stop date: 07/06/16 21:59:00 RECEPTION AGENT Inactive 07/06/2016 [facility] Levemir 10 unit, 0.1 mL, Route: SUB-Q, Drug form: INJ, Bedtime, Dosing Weight 49.5, kg, Start date: 07/05/16 21:00:00 RECEPTION AGENT, Duration: 30 day, Stop date: 08/03/16 21:00:00 CSTNotes: Same as Levemir Do not hold insulin without contacting prescriber WASTE: F/P - Black; E - Municipal Trash Bin "single patient use only" Inactive 07/06/2016 [facility] Propranolol 40 mg, 1 tab, Route: PO, Drug form: TAB, QID, Dosing Weight 49.5, kg, Start date: 07/05/16 21:00:00 RECEPTION AGENT, Duration: 30 day, Stop date: 08/04/16 17:00:00 CSTNotes: Give with food. (Same as: Inderal) No Longer Active 07/06/2016 [facility] insulin detemir 18 unit, 0.18 mL, Route: SUB-Q, Drug form: INJ, Bedtime, Dosing Weight 49.5, kg, Start date: 07/05/16 21:00:00 RECEPTION AGENT, Duration: 30 day, Stop date: 09/02/16 21:00:00 CSTNotes: Same as Levemir Do not hold insulin without contacting prescriber WASTE: F/P - Black; E - Municipal Trash Bin "single patient use only" No Longer Active 07/06/2016 [facility] Enoxaparin 40 mg, 0.4 mL, Route: SUB-Q, Drug form: INJ, [id number], Dosing Weight 49.5, kg, Start date: 07/05/16 18:00:00 RECEPTION AGENT, Duration: 30 day, Stop date: 09/02/16 18:00:00 CSTNotes: (Same as: Lovenox) No Longer Active 07/06/2016 [facility] albumin human 25% intravenous solution 12.5 gm, 50 mL, Route: IVPB, Drug form: INJ, Q6H, Dosing Weight 49.5, kg, Start date: 07/05/16 18:00:00 RECEPTION AGENT, Duration: 30 day, Stop date: 08/04/16 12:00:00 CSTNotes: LOT#: Mfg: WASTE: F/P - Red; E -Red (Same as: Albuminar) "blood product derivative" No Longer Active 07/06/2016 [facility] Insulin, Aspart, Human 3 unit, 0.03 mL, Route: SUB-Q, Drug form: SOLN, Bedtime, Dosing Weight 49.5, kg, PRN Blood Glucose Results, Start date: 07/05/16 17:21:00 RECEPTION AGENT, Duration: 30 day, Stop date: 09/03/16 17:20:00 CSTNotes: Roll in palms of hands gently; Do not shake vigorously. (Same as: NovoLOG) "single patient use only" WASTE: F/P - Black; E - Municipal Trash Bin Stable for 28 days at room temperature. Expires in days from Date No Longer Active 07/05/2016 [facility] Glucagon 1 mg, Route: IM, Drug form: PDR/INJ, PRN, Dosing Weight 49.5, kg, PRN Blood Glucose Results, Start date: 07/05/16 17:21:00 RECEPTION AGENT, Duration: 30 day, Stop date: 09/03/16 17:20:00 RECEPTION AGENT No Longer Active 07/05/2016 [facility] Dextrose 50% Syringe 25 gm, 50 mL, Route: IVP, Drug Form: INJ, Dosing Weight 49.5, kg, PRN, PRN Blood Glucose Results, Start date: 07/05/16 17:21:00 RECEPTION AGENT, Duration: 30 day, Stop date: 09/03/16 17:20:00 RECEPTION AGENT No Longer Active 07/05/2016 [facility] Oxycodone Hydrochloride 5 MG Oral Tablet 5 mg, 1 tab, Route: PO, Drug form: TAB, Q4H, Dosing Weight 49.5, kg, PRN Pain Score 4-6, Start date: 07/05/16 17:13:00 RECEPTION AGENT, Duration: 30 day, Stop date: 08/04/16 17:12:00 CSTNotes: (Same as: Roxicodone) No Longer Active 07/05/2016 [facility] Hydromorphone 0.5 mg, 0.5 mL, Route: IVP, Drug form: INJ, Q3H, Dosing Weight 49.5, kg, PRN Pain Score 6-10, Start date: 07/05/16 17:13:00 RECEPTION AGENT, Duration: 30 day, Stop date: 08/04/16 17:12:00 RECEPTION AGENT No Longer Active 07/05/2016 [facility] Docusate 100 mg, 1 cap, Route: PO, Drug form: CAP, BID, Dosing Weight 49.5, kg, PRN Constipation, Start date: 07/05/16 17:10:00 RECEPTION AGENT, Duration: 30 day, Stop date: 09/03/16 17:09:00 CSTNotes: (Same as: Colace) (Do Not Crush) No Longer Active 07/05/2016 [facility] Ondansetron 4 mg, 2 mL, Route: IVP, Drug form: INJ, Q6H, Dosing Weight 49.5, kg, PRN Nausea & Vomiting, Start date: 07/05/16 17:10:00 RECEPTION AGENT, Duration: 30 day, Stop date: 09/03/16 17:09:00 CSTNotes: (Same as: Sotero) MEDICATION WASTE Product Size: 4 mg Product Wasted: ___ mg No Longer Active 07/05/2016 [facility] Acetaminophen 650 mg, 2 tab, Route: PO, Drug form: TAB, Q4H, Dosing Weight 49.5, kg, PRN Pain 1-3/Temp > 100.4 F, Start date: 07/05/16 17:10:00 RECEPTION AGENT, Duration: 30 day, Stop date: 09/03/16 17:09:00 CSTNotes: Do not exceed 4 gm/day. (Same as: Tylenol) No Longer Active 07/05/2016 [facility] acetaminophen 325 mg oral tablet 650 mg=2 tab, PO, Q6H, PRN Pain 1-3/Temp > 100.4 F, 0 Refill(s) On Hold 07/05/2016 [facility] Cholestyramine Resin 4 gm=1 pkt, PO, Daily, 0 Refill(s) On Hold 07/05/2016 [facility] hydromorphone 100 mg/100 mL-NaCl 0.9% intravenous solution 0.5 mg=0.5 mL, IV, Q3H, PRN Pain Score 6-10, 0 Refill(s) On Hold 07/05/2016 [facility] propranolol 40 mg oral tablet 40 mg=1 tab, PO, QID, 0 Refill(s) On Hold 07/05/2016 [facility] pantoprazole 40 mg oral enteric coated tablet 40 mg=1 tab, PO, Before Dinner, 0 Refill(s) On Hold 07/05/2016 [facility] Amylases 744257 UNT / Endopeptidases 94891 UNT / Lipase 78397 UNT Enteric Coated Capsule [Creon 24] 2 cap, PO, TID-Before Meals, 0 Refill(s) On Hold 07/05/2016 [facility] Oxycodone Hydrochloride 5 MG Oral Tablet 5 mg=1 tab, PO, Q4H, PRN Pain Score 4-6, 0 Refill(s) On Hold 07/05/2016 [facility] magnesium oxide 400 mg oral tablet 400 mg=1 tab, PO, TID, 0 Refill(s) On Hold 07/05/2016 [facility] insulin detemir 100 units/mL subcutaneous solution 10 unit, SUB-Q, Bedtime, 0 Refill(s) On Hold 07/05/2016 [facility] Enoxaparin 40 mg=0.4 mL, SUB-Q, [id number], 0 Refill(s) On Hold 07/05/2016 [facility] albumin human 25% intravenous solution 12.5 gm=50 mL, IVPB, Q6H, 0 Refill(s) On Hold 07/05/2016 [facility] Calcium Carbonate 500 MG Chewable Tablet 1,000 mg=2 tab, CHEW, TID, 0 Refill(s) On Hold 07/05/2016 [facility] potassium chloride 10 mEq, 100 mL, Route: IVPB, Drug form: INJ, Q1H, Start date: 07/05/16 13:00:00 RECEPTION AGENT, Duration: 4 doses or times, Stop date: 07/05/16 16:00:00 CSTNotes: Infuse at a rate of 10 mEq/hr. (Same as: KCL) Inactive 07/05/2016 [facility] potassium chloride 10 mEq, 100 mL, Route: IVPB, Drug form: INJ, Q1H, Start date: 07/05/16 7:00:00 RECEPTION AGENT, Duration: 4 doses or times, Stop date: 07/05/16 10:00:00 CSTNotes: Infuse at a rate of 10 mEq/hr. (Same as: KCL) Inactive 07/05/2016 [facility] Calcium Gluconate 2,000 mg, 20 mL, Route: IVPB, ONCE, Dosing Weight 49.5, kg, Start date: 07/05/16 6:41:00 RECEPTION AGENT, Stop date: 07/05/16 6:41:00 CSTNotes: WASTE: F/P - Sink; E - Municipal Trash Bin Inactive 07/05/2016 [facility] Magnesium Sulfate 2 gm, 50 mL, Route: IVPB, Drug form: INJ, ONCE, Dosing Weight 49.5, kg, Start date: 07/05/16 6:41:00 RECEPTION AGENT, Duration: 2 hr, Stop date: 07/05/16 6:41:00 CSTNotes: WASTE: F/P - Sink; E - Municipal Trash Bin Inactive 07/05/2016 [facility] potassium chloride 40 mEq, Route: IV, ONCE, Dosing Weight 49.5, kg, Start date: 07/05/16 6:40:00 RECEPTION AGENT, Stop date: 07/05/16 6:40:00 RECEPTION AGENT Inactive 07/05/2016 [facility] TPN, adult solution 2,050 mL 2,050 mL, Rate: 83 ml/hr, Infuse over: 24.7 hr, Route: IV, Dosing Weight 49.5 kg, Total Volume: 2,050, Start date: 07/04/16 22:00:00 RECEPTION AGENT, Duration: 1 day, Stop date: 07/05/16 21:59:00 RECEPTION AGENT No Longer Active 07/05/2016 [facility] fat emulsion, intravenous 250 mL IV, 31.25 ml/hr, Start date: 07/04/16 22:00:00 RECEPTION AGENT, Duration: 8, 250 ml, 49.5Notes: (Same as: Intralipid, Liposyn) Infuse through a 1.2 micron filter No Longer Active 07/05/2016 [facility] Lasix 40 mg, 4 mL, Route: IV, Drug form: INJ, ONCE, Dosing Weight 49.5, kg, Start date: 07/04/16 17:00:00 RECEPTION AGENT, Stop date: 07/04/16 17:00:00 CSTNotes: (Same as: Lasix) MEDICATION WASTE Product Size: 40 mg Product Wasted: ___ mg Inactive 07/04/2016 [facility] albumin human 25% intravenous solution 25 gm, 100 mL, Route: IVPB, Drug form: INJ, ONCE, Dosing Weight 49.5, kg, Start date: 07/04/16 16:00:00 RECEPTION AGENT, Stop date: 07/04/16 16:00:00 CSTNotes: Lot #: Mfg: (Same as: Plasbumin-25) "blood product derivative" WASTE: F/P - Red; E -Red MEDICATION WASTE Product Size: 25 gm Product Wasted: ___ gm Inactive 07/04/2016 [facility] Oxycodone Hydrochloride 5 MG Oral Tablet 5 mg, 1 tab, Route: PO, Drug form: TAB, Q4H, Dosing Weight 49.5, kg, PRN Pain Score 4-6, Start date: 07/04/16 8:46:00 RECEPTION AGENT, Duration: 30 day, Stop date: 08/03/16 8:45:00 CSTNotes: (Same as: Roxicodone) No Longer Active 07/04/2016 [facility] Tylenol 650 mg, 2 tab, Route: PO, Drug form: TAB, Q6H, Dosing Weight 49.5, kg, PRN Pain 1-3/Temp > 100.4 F, Start date: 07/03/16 14:51:00 RECEPTION AGENT, Duration: 30 day, Stop date: 08/02/16 14:50:00 CSTNotes: Do not exceed 4 gm/day. (Same as: Tylenol) No Longer Active 07/03/2016 [facility] potassium chloride 40 mEq, 30 mL, Route: PO, Drug form: LIQ, ONCE, Dosing Weight 49.5, kg, Start date: 07/03/16 8:42:00 RECEPTION AGENT, Stop date: 07/03/16 8:42:00 CSTNotes: (Same as: Potassium Chloride) Inactive 07/03/2016 [facility] Roxicodone 10 mg, 2 tab, Route: PO, Drug form: TAB, Q4H, PRN Pain Score 4-6, Start date: 07/02/16 16:57:00 RECEPTION AGENT, Duration: 30 day, Stop date: 08/01/16 16:56:00 CSTNotes: (Same as: Roxicodone) No Longer Active 07/02/2016 [facility] Tylenol 325 mg, 1 tab, Route: PO, Drug form: TAB, Q6H, PRN Pain Score 4-6, Start date: 07/02/16 16:57:00 RECEPTION AGENT, Duration: 30 day, Stop date: 08/01/16 16:56:00 CSTNotes: Do not exceed 4 gm/day. (Same as: Tylenol) No Longer Active 07/02/2016 [facility] Acetaminophen 325 MG / Oxycodone Hydrochloride 10 MG Oral Tablet [Percocet 10/325] 1 tab, Route: PO, Drug Form: TAB, Dosing Weight 49.5, kg, Q6H, PRN Pain Score 4-6, Start date: 07/02/16 16:56:00 RECEPTION AGENT, Duration: 30 day, Stop date: 08/01/16 16:55:00 RECEPTION AGENT Inactive 07/02/2016 [facility] Magnesium Sulfate 1 gm, 100 mL, Route: IVPB, Drug form: INJ, ONCE, Dosing Weight 49.5, kg, Start date: 07/01/16 7:08:00 RECEPTION AGENT, Stop date: 07/01/16 7:08:00 CSTNotes: WASTE: F/P - Sink; E - Municipal Trash Bin Inactive 07/01/2016 [facility] Calcium Carbonate 1,000 mg, Route: CHEW, Drug form: CHEWTAB, Bedtime, Dosing Weight 49.5, Start date: 06/29/16 21:00:00 RECEPTION AGENT, Duration: 30 day, Stop date: 07/28/16 21:00:00 CSTNotes: (Same As: Tums) Calcium Carbonate 5 00 xt=186 mg elemental calcium Dose= mg calcium carbonate ( mg elemental calcium) No Longer Active 06/30/2016 [facility] sodium chloride 0.9% 1000 ml INJ 1,000 mL 1,000 mL, Rate: 50 ml/hr, Infuse over: 20 hr, Route: IV, Dosing Weight 49.5 kg, Total Volume: 1,000, Start date: 06/29/16 13:33:00 RECEPTION AGENT, Stop date: 07/29/16 13:32:00 RECEPTION AGENT No Longer Active 06/29/2016 [facility] Calcium Carbonate 500 mg, 1 tab, Route: PO, Drug form: CHEWTAB, BID, Dosing Weight 49.5, kg, Start date: 06/29/16 9:00:00 RECEPTION AGENT, Duration: 30 day, Stop date: 07/28/16 18:00:00 CSTNotes: (Same As: Zoey) Calcium Carbonate 500 su=546 mg elemental calcium Dose= mg calcium carbonate ( mg elemental calcium) No Longer Active 06/29/2016 [facility] Calcium Carbonate 500 mg, 1 tab, Route: CHEW, Drug form: CHEWTAB, ONCE, Dosing Weight 49.5, kg, Start date: 06/29/16 6:15:00 RECEPTION AGENT, Stop date: 06/29/16 6:15:00 CSTNotes: (Same As: Zoey) Calcium Carbonate 500 wy=981 mg elemental calcium Dose= mg calcium carbonate ( mg elemental calcium) Inactive 06/29/2016 [facility] Nitroglycerin 0.4 MG Sublingual Tablet 0.4 mg, 1 tab, Route: SL, Drug form: TAB, Q5Min, Dosing Weight 49.5, kg, PRN Chest Pain, Start date: 06/28/16 23:44:00 RECEPTION AGENT, Duration: 30 day, Stop date: 07/28/16 23:43:00 CSTNotes: (Same as:Nitroquick, Nitrostat) "Do Not Crush" Sublingual tablet No Longer Active 06/29/2016 [facility] Atropine 0.5 mg, 5 mL, Route: IVP, Drug form: INJ, PRN, Dosing Weight 49.5, kg, PRN Bradycardia, Start date: 06/28/16 23:44:00 RECEPTION AGENT, Duration: 30 day, Stop date: 07/28/16 23:43:00 RECEPTION AGENT, symtaomaticbradycardia heart rate less than 40 No Longer Active 06/29/2016 [facility] PHOS-NaK 2 pkt, Route: PO, Drug Form: PDR/REC, Dosing Weight 49.5, kg, ONCE, Start date: 06/27/16 9:09:00 RECEPTION AGENT, Stop date: 06/27/16 9:09:00 CSTNotes: (Same as: Phos-NaK) Each 1.5 gm pkt has 250mg phosphorous. Mix w/2.5oz water and stir. Inactive 06/27/2016 [facility] Calcium Gluconate 2,000 mg, 20 mL, Route: IVPB, ONCE, Dosing Weight 49.5, kg, Start date: 06/27/16 9:09:00 RECEPTION AGENT, Stop date: 06/27/16 9:09:00 CSTNotes: WASTE: F/P - Sink; E - Municipal Trash Bin Inactive 06/27/2016 [facility] Bumex 1 mg, 4 mL, Route: IVP, Drug form: INJ, ONCE, Dosing Weight 49.5, kg, Start date: 06/26/16 15:01:00 RECEPTION AGENT, Stop date: 06/26/16 15:01:00 CSTNotes: (Same As: Bumex) Inactive 06/26/2016 [facility] Magnesium Sulfate 3 gm, 6 mL, Route: IV, ONCE, Dosing Weight 49.5, kg, Start date: 06/26/16 13:08:00 RECEPTION AGENT, Stop date: 06/26/16 13:08:00 CSTNotes: (Same as: MgSO4) WASTE: F/P - Sink; E - Municipal Trash Bin MEDICATION WASTE Product Size: 1000 mg Product Wasted: ___ mg Inactive 06/26/2016 [facility] Calcium Gluconate 2,000 mg, 20 mL, Route: IVPB, ONCE, Dosing Weight 49.5, kg, Start date: 06/26/16 13:08:00 RECEPTION AGENT, Stop date: 06/26/16 13:08:00 CSTNotes: WASTE: F/P - Sink; E - Municipal Trash Bin Inactive 06/26/2016 [facility] Prednisone 20 mg, 1 tab, Route: PO, Drug form: TAB, Daily, Dosing Weight 49.5, kg, Start date: 06/26/16 9:00:00 RECEPTION AGENT, Duration: 5 day, Stop date: 06/30/16 9:00:00 CSTNotes: Take with food. No Longer Active 06/26/2016 [facility] Magnesium Oxide 400 mg, 1 tab, Route: PO, Drug form: TAB, BID, Dosing Weight 49.5, kg, Start date: 06/25/16 17:00:00 RECEPTION AGENT, Duration: 30 day, Stop date: 07/25/16 9:00:00 CSTNotes: (Same as: Mag-Ox 400) Magnesium oxide [id number] elemental magnesium Dose=____mg magnesium oxide (___mg elemental magnesium) No Longer Active 06/25/2016 [facility] Calcium Gluconate 1,000 mg, 10 mL, Route: IVPB, ONCE, Dosing Weight 49.5, kg, Start date: 06/25/16 12:30:00 RECEPTION AGENT, Stop date: 06/25/16 12:30:00 CSTNotes: WASTE: F/P - Sink; E - Municipal Trash Bin Inactive 06/25/2016 [facility] Magnesium Sulfate 2 gm, 50 mL, Route: IV, Drug form: INJ, ONCE, Dosing Weight 49.5, kg, Start date: 06/25/16 11:54:00 RECEPTION AGENT, Stop date: 06/25/16 11:54:00 CSTNotes: WASTE: F/P - Sink; E - Municipal Trash Bin Inactive 06/25/2016 [facility] Calcium Carbonate 500 mg, 1 tab, Route: PO, Drug form: CHEWTAB, TID, Dosing Weight 49.5, kg, Start date: 06/25/16 9:00:00 RECEPTION AGENT, Duration: 30 day, Stop date: 07/24/16 17:00:00 CSTNotes: (Same As: Tums) Calcium Carbonate 500 ct=738 mg elemental calcium Dose= mg calcium carbonate ( mg elemental calcium) No Longer Active 06/25/2016 [facility] Cholestyramine Resin 4 gm, 1 pkt, Route: PO, Drug form: PDR/REC, Daily, Dosing Weight 49.5, kg, Start date: 06/25/16 9:00:00 RECEPTION AGENT, Duration: 30 day, Stop date: 07/24/16 9:00:00 CSTNotes: (Same As: Questran) No Longer Active 06/25/2016 [facility] Amylases 509885 UNT / Endopeptidases 67977 UNT / Lipase 73440 UNT Enteric Coated Capsule [Creon 24] 2 cap, Route: PO, Drug Form: DRC, Dosing Weight 49.5, kg, TID-Before Meals, Start date: 06/25/16 8:35:00 RECEPTION AGENT, Duration: 30 day, Stop date: 07/25/16 7:30:00 CSTNotes: Same as: Creon DRC 24 : lipase 24 ,000 units, protease 76,000 units, amylase 120,000 units No Longer Active 06/25/2016 [facility] potassium chloride 40 mEq, 2 tab, Route: PO, Drug form: ERTAB, Q12H, Dosing Weight 49.5, kg, Start date: 06/24/16 21:00:00 RECEPTION AGENT, Duration: 30 day, Stop date: 07/24/16 9:00:00 CSTNotes: (Same as: K-Dur 20) "Do Not Crush" With food and full glass of water No Longer Active 06/25/2016 [facility] Protonix 40 mg, 1 tab, Route: PO, Drug form: ECTAB, Before Dinner, Dosing Weight 49.5, kg, Start date: 06/24/16 15:44:00 RECEPTION AGENT, Duration: 30 day, Stop date: 07/23/16 16:30:00 CSTNotes: Tablet should not be chewed or crushed. (Same as: Protonix) No Longer Active 06/24/2016 [facility] Magnesium Sulfate 2 gm, 50 mL, Route: IVPB, Drug form: INJ, ONCE, Dosing Weight 49.5, kg, Total dose=2 gm, Start date: 06/24/16 9:33:00 RECEPTION AGENT, Duration: 1 doses or times, Stop date: 06/24/16 9:33:00 CSTNotes: WASTE: F/P - Sink; E - Municipal Trash Bin Inactive 06/24/2016 [facility] potassium chloride 40 mEq, Route: PO, TID, Dosing Weight 49.5, kg, Start date: 06/23/16 13:00:00 RECEPTION AGENT, Duration: 30 day, Stop date: 07/23/16 9:00:00 RECEPTION AGENT Inactive 06/23/2016 [facility] potassium chloride 40 mEq, 2 tab, Route: PO, Drug form: ERTAB, Q6H, Dosing Weight 49.5, kg, Start date: 06/23/16 12:00:00 RECEPTION AGENT, Duration: 4 doses or times, Stop date: 06/24/16 6:00:00 CSTNotes: (Same as: K- Dur 20) "Do Not Crush" With food and full glass of water No Longer Active 06/23/2016 [facility] potassium chloride 10 mEq, 100 mL, Route: IVPB, Drug form: INJ, Q1H, Dosing Weight 49.5, kg, Total Dose=40 meq, Start date: 06/23/16 11:00:00 RECEPTION AGENT, Duration: 4 doses or times, Stop date: 06/23/16 14:00:00 RECEPTION AGENT, Peripheral LineNotes: Infuse at a rate of 10 mEq/hr. (Same as: KCL) Inactive 06/23/2016 [facility] Magnesium Sulfate 6 gm, 150 mL, Route: IV, Drug form: INJ, ONCE, Dosing Weight 49.5, kg, Start date: 06/23/16 6:17:00 RECEPTION AGENT, Stop date: 06/23/16 6:17:00 CSTNotes: WASTE: F/P - Sink; E - Municipal Trash Bin Inactive 06/23/2016 [facility] potassium chloride 40 mEq, 2 tab, Route: PO, Drug form: ERTAB, ONCE, Dosing Weight 49.5, kg, Start date: 06/22/16 18:00:00 RECEPTION AGENT, Stop date: 06/22/16 18:00:00 CSTNotes: (Same as: K-Dur 20) "Do Not Crush" With food and full glass of water Inactive 06/23/2016 [facility] Metoprolol 5 mg, 5 mL, Route: IVP, Drug form: INJ, Q6H, Dosing Weight 49.5, kg, PRN Other -See Comment, Start date: 06/22/16 16:01:00 RECEPTION AGENT, Duration: 30 day, Stop date: 07/22/16 16:00:00 RECEPTION AGENT, Give only if unable to take poNotes: (Same as: Lopressor) Push over 2 minutes No Longer Active 06/22/2016 [facility] potassium chloride 40 mEq, Route: PO, TID, Dosing Weight 49.5, kg, Start date: 06/22/16 13:00:00 RECEPTION AGENT, Duration: 30 day, Stop date: 07/22/16 9:00:00 RECEPTION AGENT Inactive 06/22/2016 [facility] potassium chloride 10 mEq, 100 mL, Route: IVPB, Drug form: INJ, Q1H, Dosing Weight 49.5, kg, Total Dose=40 meq, Start date: 06/22/16 11:00:00 RECEPTION AGENT, Duration: 4 doses or times, Stop date: 06/22/16 14:00:00 RECEPTION AGENT, Peripheral LineNotes: Infuse at a rate of 10 mEq/hr. (Same as: KCL) Inactive 06/22/2016 [facility] Thiamine 100 mg, 1 mL, Route: IVPB, Drug form: INJ, Q24H, Dosing Weight 49.5, kg, Start date: 06/22/16 11:00:00 RECEPTION AGENT, Duration: 30 day, Stop date: 07/21/16 11:00:00 CSTNotes: (Same As: Vitamin B1) No Longer Active 06/22/2016 [facility] Calcium Gluconate 2,000 mg, 20 mL, Route: IVPB, ONCE, Dosing Weight 49.5, kg, Start date: 06/22/16 7:06:00 RECEPTION AGENT, Stop date: 06/22/16 7:06:00 CSTNotes: WASTE: F/P - Sink; E - Municipal Trash Bin Inactive 06/22/2016 [facility] potassium chloride 10 mEq, 100 mL, Route: IVPB, Drug form: INJ, Q1H, Dosing Weight 49.5, kg, Total Dose=40 meq, Start date: 06/22/16 6:00:00 RECEPTION AGENT, Duration: 4 doses or times, Stop date: 06/22/16 9:00:00 RECEPTION AGENT, Peripheral LineNotes: Infuse at a rate of 10 mEq/hr. (Same as: KCL) Inactive 06/22/2016 [facility] potassium chloride 40 mEq, 30 mL, Route: PO, Drug form: LIQ, ONCE, Start date: 06/21/16 12:00:00 RECEPTION AGENT, Stop date: 06/21/16 12:00:00 CSTNotes: (Same as: Potassium Chloride) Inactive 06/21/2016 [facility] Magnesium Sulfate 2 gm, 50 mL, Route: IVPB, Drug form: INJ, Q2H, Dosing Weight 49.5, kg, Total dose=4 gm, Start date: 06/21/16 10:00:00 RECEPTION AGENT, Duration: 2 doses or times, Stop date: 06/21/16 12:00:00 CSTNotes: WASTE: F/P - Sink; [employer] Bin Inactive 06/21/2016 [facility] Protonix 40 mg, 1 tab, Route: PO, Drug form: ECTAB, Daily, Start date: 06/21/16 9:00:00 RECEPTION AGENT, Duration: 30 day, Stop date: 07/20/16 9:00:00 CSTNotes: Tablet should not be chewed or crushed. (Same as: Protonix) No Longer Active 06/21/2016 [facility] potassium chloride 40 mEq, Route: PO, ONCE, Dosing Weight 49.5, kg, Start date: 06/21/16 8:00:00 RECEPTION AGENT, Stop date: 06/21/16 8:00:00 RECEPTION AGENT Inactive 06/21/2016 [facility] potassium chloride 40 mEq, 30 mL, Route: PO, Drug form: LIQ, ONCE, Dosing Weight 49.5, kg, Start date: 06/21/16 7:59:00 RECEPTION AGENT, Stop date: 06/21/16 7:59:00 CSTNotes: (Same as: Potassium Chloride) Inactive 06/21/2016 [facility] Calcium Gluconate 2,000 mg, 20 mL, Route: IVPB, ONCE, Dosing Weight 49.5, kg, Start date: 06/21/16 7:59:00 RECEPTION AGENT, Stop date: 06/21/16 7:59:00 CSTNotes: WASTE: F/P - Sink; Clarimedix Crunchbuttonsh Bin Inactive 06/21/2016 [facility] Atropine Sulfate 0.025 MG / Diphenoxylate Hydrochloride 2.5 MG Oral Tablet [Lomotil] 1 tab, Route: PO, Drug Form: TAB, Dosing Weight 49.5, kg, Q6H, PRN as needed for loose stool, Start date: 06/20/16 21:23:00 RECEPTION AGENT, Duration: 30 day, Stop date: 07/20/16 21:22:00 CSTNotes: (Same As: Lomotil) MAX Adult dose=8 tabs/day No Longer Active 06/21/2016 [facility] Magnesium Sulfate 2 gm, 50 mL, Route: IVPB, Drug form: INJ, Q2H, Dosing Weight 49.5, kg, Total dose=4 gm, Start date: 06/20/16 12:00:00 RECEPTION AGENT, Duration: 2 doses or times, Stop date: 06/20/16 14:00:00 CSTNotes: WASTE: F/P - Sink; E - Municipal Trash Bin Inactive 06/20/2016 [facility] K-Dur 20 60 mEq, 3 tab, Route: PO, Drug form: ERTAB, Q2H, Start date: 06/20/16 8:00:00 RECEPTION AGENT, Duration: 2 doses or times, Stop date: 06/20/16 10:00:00 CSTNotes: (Same as: K-Dur 20) "Do Not Crush" With food and full glass of water Inactive 06/20/2016 [facility] potassium chloride 30 mEq, Route: PO, ONCE, Dosing Weight 49.5, kg, Priority: NOW, Start date: 06/20/16 7:31:00 RECEPTION AGENT, Stop date: 06/20/16 7:31:00 RECEPTION AGENT Inactive 06/20/2016 [facility] Amylases 809044 UNT / Endopeptidases 93447 UNT / Lipase 02845 UNT Enteric Coated Capsule [Creon 24] 1 cap, Route: PO, Drug Form: DRC, Dosing Weight 49.5, kg, TID-Before Meals, Start date: 06/19/16 16:30:00 RECEPTION AGENT, Duration: 30 day, Stop date: 07/19/16 11:30:00 CSTNotes: Same as: Creon DRC 24 : lipase 24,000 units, protease 76,000 units, amylase 120,000 units No Longer Active 06/19/2016 [facility] Calcium Gluconate 1,000 mg, 10 mL, Route: IVPB, ONCE, Dosing Weight 49.5, kg, Start date: 06/19/16 12:23:00 RECEPTION AGENT, Stop date: 06/19/16 12:23:00 CSTNotes: WASTE: F/P - Sink; E - Municipal Trash Bin Inactive 06/19/2016 [facility] pneumococcal capsular polysaccharide type 1 vaccine / pneumococcal capsular polysaccharide type 10A vaccine / pneumococcal capsular polysaccharide type 11A vaccine / pneumococcal capsular polysaccharide type 12F vaccine / pneumococcal capsular polysacchar 0.5 mL, Route: IM, Drug Form: INJ, Daily, Start date: 06/19/16 9:00:00 RECEPTION AGENT, Duration: 1 doses or times, Stop date: 06/19/16 9:00:00 CSTNotes: (Same as: Pneumovax 23) Refrigerate Inactive 06/19/2016 [facility] Rocephin 1 gm, Route: IVPB, [id number], Dosing Weight 49.5, kg, Priority: NOW, Start date: 06/19/16 7:44:00 RECEPTION AGENT, Duration: 30 day, Stop date: 07/18/16 14:00:00 CSTNotes: (Same As: Rocephin). Use with 100 mL NS and infuse over 30 min MEDICATION WASTE Product Size: 1000 mg Product Wasted: ___ mg No Longer Active 06/19/2016 [facility] Magnesium Sulfate 1 gm, 100 mL, Route: IVPB, Drug form: INJ, ONCE, Dosing Weight 49.5, kg, Start date: 06/18/16 16:20:00 RECEPTION AGENT, Stop date: 06/18/16 16:20:00 CSTNotes: WASTE: F/P - Sink; E - Municipal Trash Bin Inactive 06/18/2016 [facility] ondansetron (ANES) Route: IV, Drug form: INJ, ONCE, Stop date: 06/18/16 14:21:00 RECEPTION AGENT Inactive 06/18/2016 [facility] fentaNYL (ANES) Route: IV, Drug form: INJ, ONCE, Stop date: 06/18/16 14:21:00 RECEPTION AGENT Inactive 06/18/2016 [facility] lidocaine (ANES) Route: IV, Drug form: INJ, ONCE, Stop date: 06/18/16 14:21:00 RECEPTION AGENT Inactive 06/18/2016 [facility] propofol (ANES) Route: IV, Drug form: INJ, ONCE, Stop date: 06/18/16 14:21:00 RECEPTION AGENT Inactive 06/18/2016 [facility] metoclopramide (ANES) Route: IV, Drug form: INJ, ONCE, Stop date: 06/18/16 14:21:00 RECEPTION AGENT Inactive 06/18/2016 [facility] phenylephrine (ANES) Route: IV, Drug form: INJ, ONCE, Stop date: 06/18/16 14:21:00 RECEPTION AGENT Inactive 06/18/2016 [facility] Levsin SL 0.125 mg, 1 tab, Route: SL, Drug form: TAB, Q4H, Dosing Weight 49.5, kg, PRN Bladder Spasm, Start date: 06/18/16 14:17:00 RECEPTION AGENT, Duration: 30 day, Stop date: 07/18/16 14:16:00 CSTNotes: (Same as: Levsin) Take 30 min before meal No Longer Active 06/18/2016 [facility] LR 1000 mL INJ (ANES) Route: IV, Total Volume: 1,000, Start date: 06/18/16 13:30:00 RECEPTION AGENT, Stop date: 06/18/16 14:30:00 RECEPTION AGENT Inactive 06/18/2016 [facility] Calcium Chloride 0.0014 MEQ/ML / Potassium Chloride 0.004 MEQ/ML / Sodium Chloride 0.103 MEQ/ML / Sodium Lactate 0.028 MEQ/ML Injectable Solution 1,000 mL, Rate: 25 ml/hr, Infuse over: 40 hr, Route: IV, Dosing Weight 49.5 kg, Total Volume: 1,000, Start date: 06/18/16 12:36:00 RECEPTION AGENT, Duration: 30 day, Stop date: 07/18/16 12:35:00 RECEPTION AGENT Inactive 06/18/2016 [facility] potassium chloride 10 mEq, 100 mL, Route: IVPB, Drug form: INJ, Q1H, Dosing Weight 49.5, kg, Total Dose=40 meq, Start date: 06/18/16 7:00:00 RECEPTION AGENT, Duration: 4 doses or times, Stop date: 06/18/16 10:00:00 RECEPTION AGENT, Peripheral LineNotes: Infuse at a rate of 10 mEq/hr. (Same as: KCL) Inactive 06/18/2016 [facility] Magnesium Sulfate 1 gm, 100 mL, Route: IVPB, Drug form: INJ, ONCE, Dosing Weight 49.5, kg, Start date: 06/18/16 6:12:00 RECEPTION AGENT, Stop date: 06/18/16 6:12:00 CSTNotes: WASTE: F/P - Sink; E - [employer] Trash Bin Inactive 06/18/2016 [facility] potassium chloride 40 mEq, 30 mL, Route: PO, Drug form: LIQ, Q2H, Dosing Weight 49.5, kg, Start date: 06/17/16 16:00:00 RECEPTION AGENT, Duration: 2 doses or times, Stop date: 06/17/16 18:00:00 CSTNotes: (Same as: Potassium Chloride) Inactive 06/17/2016 [facility] hydrocortisone 100 mg injection 50 mg, 1 mL, Route: IV, Drug form: PDR/INJ, Q8H, Dosing Weight 51.364, kg, Start date: 06/17/16 16:00:00 RECEPTION AGENT, Duration: 30 day, Stop date: 07/17/16 8:00:00 CSTNotes: (Same as: Solu-CORTEF) No Longer Active 06/17/2016 [facility] Insulin, Aspart, Human 8 unit, 0.08 mL, Route: SUB-Q, Drug form: SOLN, Sliding Scale, Dosing Weight 49.5, kg, PRN Blood Glucose Results, Start date: 06/17/16 14:24:00 RECEPTION AGENT, Duration: 30 day, Stop date: 07/17/16 14:23:00 CSTNotes: Roll in palms of hands gently; Do not shake vigorously. (Same as: NovoLOG) "single patient use only" WASTE: F/P - Black; E - [facility] Trash Bin Stable for 28 days at room temperature. Expires in days from Date No Longer Active 06/17/2016 [facility] Glucagon 1 mg, Route: IM, Drug form: PDR/INJ, PRN, Dosing Weight 49.5, kg, PRN Blood Glucose Results, Start date: 06/17/16 14:24:00 RECEPTION AGENT, Duration: 30 day, Stop date: 07/17/16 14:23:00 RECEPTION AGENT No Longer Active 06/17/2016 [facility] Dextrose 50% Syringe 25 gm, 50 mL, Route: IVP, Drug Form: INJ, Dosing Weight 49.5, kg, PRN, PRN Blood Glucose Results, Start date: 06/17/16 14:24:00 RECEPTION AGENT, Duration: 30 day, Stop date: 07/17/16 14:23:00 RECEPTION AGENT No Longer Active 06/17/2016 [facility] NS + KCL 20mEq/L 1000ml (Premix) 1,000 mL 1,000 mL, Rate: 125 ml/hr, Infuse over: 8 hr, Route: IV, Dosing Weight 49.5 kg, Total Volume: 1,000, Start date: 06/17/16 14:24:00 RECEPTION AGENT, Duration: 30 day, Stop date: 07/17/16 14:23:00 CSTNotes: PREMIX IV - Do Not Alter WASTE: F/P - Sink; E - [employer] Trash Bin No Longer Active 06/17/2016 [facility] potassium chloride 20 mEq, 100 mL, Route: IVPB, Drug form: INJ, ONCE, Dosing Weight 49.5, kg, Start date: 06/17/16 14:23:00 RECEPTION AGENT, Stop date: 06/17/16 14:23:00 CSTNotes: (Same as: KCL) Infuse no faster than 10 mEq/hr if given peripherally. Inactive 06/17/2016 [facility] Acetaminophen 325 MG / Hydrocodone Bitartrate 5 MG Oral Tablet [[place] 5/325] 1 tab, Route: PO, Drug Form: TAB, Dosing Weight 49.5, kg, Q4H, PRN Pain Score 4-6, Start date: 06/17/16 12:44:00 RECEPTION AGENT, Duration: 30 day, Stop date: 07/17/16 12:43:00 CSTNotes: (Same as: [place] 325/5) Do not exceed 4gm/day of acetaminophen. No Longer Active 06/17/2016 [facility] Dilaudid 0.2 mg, 0.2 mL, Route: IV, Drug form: INJ, Q3H, Dosing Weight 49.5, kg, PRN Pain Score 4-6, Start date: 06/17/16 12:27:00 RECEPTION AGENT, Duration: 30 day, Stop date: 07/17/16 12:26:00 RECEPTION AGENT No Longer Active 06/17/2016 [facility] Magnesium Sulfate 2 gm, 50 mL, Route: IVPB, Drug form: INJ, Q2H, Dosing Weight 49.5, kg, Total dose=4 gm, Start date: 06/17/16 5:00:00 RECEPTION AGENT, Duration: 2 doses or times, Stop date: 06/17/16 7:00:00 CSTNotes: WASTE: F/P - Sink; E - [employer] Trash Bin Inactive 06/17/2016 [facility] Calcium Carbonate 500 MG Chewable Tablet 1,000 mg, 2 tab, Route: PO, Drug form: CHEWTAB, PRN, Dosing Weight 49.5, kg, PRN Abnormal Lab Result, FOR ICU USE ONLY, Start date: 06/17/16 4:16:00 RECEPTION AGENT, Duration: 30 day, Stop date: 07/17/16 4:15:00 CSTNotes: (Same As: Tums) Calcium Carbonate 500 ty=459 mg elemental calcium Dose= mg calcium carbonate ( mg elemental calcium) Inactive 06/17/2016 [facility] potassium phosphate + sodium chloride 0.9% INJ 250 mL 15 mmol, 5 mL, Route: IVPB, PRN, Dosing Weight 49.5, kg, PRN Abnormal Lab Result, Start date: 06/17/16 4:16:00 RECEPTION AGENT, Duration: 30 day, Stop date: 07/17/16 4:15:00 RECEPTION AGENT, FOR ICU USE ONLYNotes: (Same as: K Phosphate.) 1 mMol phoshate has 1.47 mEq potassium Infuse over 4 hours Inactive 06/17/2016 [facility] potassium phosphate-sodium phosphate 250 mg-280 mg-160 mg oral powder for reconstitution 2 pkt, Route: PO, Drug Form: PDR/REC, Dosing Weight 49.5, kg, PRN, PRN Abnormal Lab Result, FOR ICU USE ONLY, Start date: 06/17/16 4:16:00 RECEPTION AGENT, Duration: 30 day, Stop date: 07/17/16 4:15:00 CSTNotes: (Same as: Phos-NaK) Each 1.5 gm pkt has 250mg phosphorous. Mix w/2.5oz water and stir. Inactive 06/17/2016 [facility] Magnesium Sulfate 2 gm, 50 mL, Route: IVPB, Drug form: INJ, PRN, Dosing Weight 49.5, kg, PRN Abnormal Lab Result, Start date: 06/17/16 4:16:00 RECEPTION AGENT, Duration: 30 day, Stop date: 07/17/16 4:15:00 RECEPTION AGENT, FOR ICU USE ONLYNotes: WASTE: F/P - Sink; E - [employer] Trash Bin Inactive 06/17/2016 [facility] sodium phosphate + D5W 250 mL 15 mmol, 5 mL, Route: IVPB, PRN, Dosing Weight 49.5, kg, PRN Abnormal Lab Result, Start date: 06/17/16 4:16:00 RECEPTION AGENT, Duration: 30 day, Stop date: 07/17/16 4:15:00 RECEPTION AGENT, FOR ICU USE ONLY Inactive 06/17/2016 [facility] potassium chloride 20 mEq, 100 mL, Route: IVPB, Drug form: INJ, PRN, Dosing Weight 49.5, kg, PRN Abnormal Lab Result, Via central line, Start date: 06/17/16 4:16:00 RECEPTION AGENT, Duration: 30 day, Stop date: 07/17/16 4:15:00 RECEPTION AGENT, FOR ICU USE ONLYNotes: (Same as: KCL) Infuse no faster than 10 mEq/hr if given peripherally. Inactive 06/17/2016 [facility] Magnesium Oxide 800 mg, 2 tab, Route: PO, Drug form: TAB, PRN, Dosing Weight 49.5, kg, PRN Abnormal Lab Result, FOR ICU USE ONLY, Start date: 06/17/16 4:16:00 RECEPTION AGENT, Duration: 30 day, Stop date: 07/17/16 4:15:00 CSTNo renee: (Same as: Mag-Ox 400) Magnesium oxide [id number] elemental magnesium Dose=____mg magnesium oxide (___mg elemental magnesium) Inactive 06/17/2016 [facility] Calcium Gluconate 1 gm, 10 mL, Route: IVPB, PRN, Dosing Weight 49.5, kg, PRN Abnormal Lab Result, Start date: 06/17/16 4:16:00 RECEPTION AGENT, Duration: 30 day, Stop date: 07/17/16 4:15:00 RECEPTION AGENT, FOR ICU USE ONLYNotes: WASTE: F/P - Sink; E - [employer] Trash Bin Inactive 06/17/2016 [facility] Saline Flush 0.9% 10 ml, Route: IVP, Drug Form: INJ, Dosing Weight 51.364, kg, Q12H, Start date: 06/16/16 9:00:00 RECEPTION AGENT, Duration: 30 day, Stop date: 07/15/16 21:00:00 CSTNotes: (Same as: BD Posiflush) No Longer Active 06/16/2016 [facility] pantoprazole 40 mg, Route: IVP, Drug form: INJ, Daily, Dosing Weight 51.364, kg, Start date: 06/16/16 9:00:00 RECEPTION AGENT, Duration: 30 day, Stop date: 07/15/16 9:00:00 CSTNotes: For IV push reconstitute with 10 ml 0.9% sodium chloride and push over 2 minutes. (Same as: Protonix) No Longer Active 06/16/2016 [facility] Methimazole 20 mg, 4 tab, Route: PO, Drug form: TAB, Q8H, Dosing Weight 51.364, kg, Start date: 06/16/16 8:00:00 RECEPTION AGENT, Stop date: 07/16/16 0:00:00 RECEPTION AGENT No Longer Active 06/16/2016 [facility] hydrocortisone 100 mg injection 100 mg, 2 mL, Route: IV, Drug form: PDR/INJ, Q6H, Dosing Weight 51.364, kg, Start date: 06/16/16 6:00:00 RECEPTION AGENT, Duration: 30 day, Stop date: 07/16/16 0:00:00 CSTNotes: (Same as: Solu- CORTEF) No Longer Active 06/16/2016 [facility] Propranolol 40 mg, 1 tab, Route: PO, Drug form: TAB, QID, Dosing Weight 51.364, kg, Start date: 06/16/16 6:00:00 RECEPTION AGENT, Stop date: 07/16/16 0:00:00 CSTNotes: Give with food. (Same as: Inderal) No Longer Active 06/16/2016 [facility] potassium chloride 10 mEq, 100 mL, Route: IVPB, Drug form: INJ, Q1H, Dosing Weight 51.364, kg, Total dose=40 mEq, Start date: 06/16/16 4:00:00 RECEPTION AGENT, Duration: 4 doses or times, Stop date: 06/16/16 7:00:00 RECEPTION AGENT, Central LineNotes: Infuse at a rate of 10 mEq/hr. (Same as: KCL) Inactive 06/16/2016 [facility] Tramadol 50 mg, PO, Q12H, PRN Pain, # 20 tab, 0 Refill(s) No Longer Active 06/16/2016 [facility] Methimazole 10 mg, PO, Q8H, 0 Refill(s) On Hold 06/16/2016 [facility] metoprolol tartrate 25 mg, PO, BID, 0 Refill(s) No Longer Active 06/16/2016 [facility] Promethazine 25 mg, PO, TID, PRN as needed for nausea/vomiting, 0 Refill(s) No Longer Active 06/16/2016 [facility] Zosyn 3.375 gm, Route: IVPB, ABXQ8H, Dosing Weight 51.364, kg, CrCl >=20 ml/min infuse over 4 hours, Start date: 06/16/16 2:00:00 RECEPTION AGENT, Duration: 30 day, Stop date: 07/15/16 18:00:00 CSTNotes: (Same as: Zosyn) Dosing based on Piperacillin component No Longer Active 06/16/2016 [facility] potassium chloride 20 mEq, 100 mL, Route: IVPB, Drug form: INJ, Q2H, Dosing Weight 51.364, kg, Total dose=40 mEq, Start date: 06/16/16 2:00:00 RECEPTION AGENT, Duration: 2 doses or times, Stop date: 06/16/16 4:00:00 RECEPTION AGENT, Central LineNotes: (Same as: KCL) Infuse no faster than 10 mEq/hr if given peripherally. Inactive 06/16/2016 [facility] Enoxaparin 40 mg, 0.4 mL, Route: SUB-Q, Drug form: INJ, [id number], Dosing Weight 51.364, kg, Start date: 06/16/16 2:00:00 RECEPTION AGENT, Duration: 30 day, Stop date: 07/15/16 2:00:00 CSTNotes: (Same as: Lovenox) No Longer Active 06/16/2016 [facility] Metoprolol 5 mg, 5 mL, Route: IV, Drug form: INJ, ONCE, Dosing Weight 51.364, kg, Start date: 06/16/16 1:33:00 RECEPTION AGENT, Stop date: 06/16/16 1:33:00 CSTNotes: (Same as: Lopressor) Push over 2 minutes Inactive 06/16/2016 [facility] Tylenol 650 mg, 2 tab, Route: PO, Drug form: TAB, Q6H, Dosing Weight 51.364, kg, PRN Pain Score 1-3, Start date: 06/16/16 1:23:00 RECEPTION AGENT, Duration: 30 day, Stop date: 07/16/16 1:22:00 CSTNotes: Do not exceed 4 gm/day. (Same as: Tylenol) No Longer Active 06/16/2016 [facility] Dilaudid 0.5 mg, Route: IVP, ONCE, Dosing Weight 51.364, kg, Priority: STAT, Start date: 06/16/16 1:04:00 RECEPTION AGENT, Stop date: 06/16/16 1:04:00 RECEPTION AGENT Inactive 06/16/2016 [facility] Propranolol 1 mg, 1 mL, Route: IVP, Drug form: INJ, ONCE, Dosing Weight 51.364, kg, Start date: 06/16/16 0:36:00 RECEPTION AGENT, Stop date: 06/16/16 0:36:00 CSTNotes: (Same as: Inderal) Inactive 06/16/2016 [facility] Morphine 4 mg, 2 mL, Route: IVP, Drug form: INJ, Q4H, Dosing Weight 51.364, kg, PRN Pain Score 7-10, Start date: 06/16/16 0:32:00 RECEPTION AGENT, Duration: 30 day, Stop date: 07/16/16 0:31:00 CSTNotes: (Same as:MORPhine Sulfate) No Longer Active 06/16/2016 [facility] Sodium Chloride 0.154 MEQ/ML Injectable Solution 1,000 mL, Rate: 125 ml/hr, Infuse over: 8 hr, Route: IV, Dosing Weight 51.364 kg, Total Volume: 1,000, Start date: 06/16/16 0:32:00 RECEPTION AGENT, Duration: 30 day, Stop date: 07/16/16 0:31:00 RECEPTION AGENT No Longer Active 06/16/2016 [facility] Saline Flush 0.9% 10 ml, Route: IVP, Drug Form: INJ, Dosing Weight 51.364, kg, PRN, PRN Line Flush, Start date: 06/16/16 0:32:00 RECEPTION AGENT, Duration: 30 day, Stop date: 07/16/16 0:31:00 CSTNotes: (Same as: BD Posiflush) No Longer Active 06/16/2016 [facility] Ondansetron 4 mg, 2 mL, Route: IVP, Drug form: INJ, Q8H, Dosing Weight 51.364, kg, PRN Nausea & Vomiting, Start date: 06/16/16 0:32:00 RECEPTION AGENT, Duration: 30 day, Stop date: 07/16/16 0:31:00 CSTNotes: (Same as: Zofran) MEDICATION WASTE Product Size: 4 mg Product Wasted: ___ mg No Longer Active 06/16/2016 [facility] Nystatin 100 UNT/MG Topical Powder 1 appl, Route: TOP, PRN, Drug form: PWDR, PRN For Fungal Prophylaxis, Start date: 06/16/16 0:32:00 RECEPTION AGENT, Duration: 30 day, Stop date: 07/16/16 0:31:00 CSTNotes: (Same as:Mycostatin, Nilstat) For external use only. No Longer Active 06/16/2016 [facility] Acetaminophen 650 mg, 2 tab, Route: PO, Drug form: TAB, Q4H, Dosing Weight 51.364, kg, PRN For Temp > 100.4 F, Start date: 06/16/16 0:32:00 RECEPTION AGENT, Duration: 30 day, Stop date: 07/16/16 0:31:00 CSTNotes: Do not exceed 4 gm/day. (Same as: Tylenol) No Longer Active 06/16/2016 [facility] potassium iodide 130 mg, Route: PO, Drug form: SOLN, ONCE, Dosing Weight 51.364, kg, Priority: STAT, Start date: 06/16/16 0:23:00 RECEPTION AGENT, Stop date: 06/16/16 0:23:00 CSTNotes: (Same as: Strong Iodine soln 5%) Inactive 06/16/2016 [facility] Potassium Iodide 130 mg, Route: PO, Drug form: SOLN, ONCE, Dosing Weight 51.364, kg, Priority: STAT, Start date: 06/16/16 0:03:00 RECEPTION AGENT, Stop date: 06/16/16 0:03:00 CSTNotes: (Same as: Strong Iodine soln 5%) Inactive 06/16/2016 [facility] NS + KCL 40mEq/L 1000ml (Premix) 1,000 mL 1,000 mL, Rate: 125 ml/hr, Infuse over: 8 hr, Route: IV, Dosing Weight 51.364 kg, Total Volume: 1,000, Priority: STAT, Start date: 06/15/16 23:03:00 RECEPTION AGENT, Duration: 30 day, Stop date: 07/15/16 23:02:00 CSTNotes: PREMIX IV - Do Not Alter WASTE: F/P - Sink; E - [employer] Trash Bin No Longer Active 06/16/2016 [facility] Dilaudid 0.5 mg, 0.5 mL, Route: IVP, Drug form: INJ, ONCE, Dosing Weight 51.364, kg, Priority: STAT, Start date: 06/15/16 23:03:00 RECEPTION AGENT, Stop date: 06/15/16 23:03:00 RECEPTION AGENT Inactive 06/16/2016 [facility] Methimazole 40 mg, 4 tab, Route: PO, Drug form: TAB, ONCE, Dosing Weight 51.364, kg, Priority: STAT, Start date: 06/15/16 21:43:00 RECEPTION AGENT, Stop date: 06/15/16 21:43:00 RECEPTION AGENT Inactive 06/16/2016 [facility] Hydrocortisone 100 mg, 2 mL, Route: IV, Drug form: PDR/INJ, ONCE, Dosing Weight 51.364, kg, Priority: STAT, Start date: 06/15/16 21:43:00 RECEPTION AGENT, Stop date: 06/15/16 21:43:00 CSTNotes: (Same as: Solu-CORTEF) Inactive 06/16/2016 [facility] Propranolol 2 mg, 2 mL, Route: IV, Drug form: INJ, ONCE, Dosing Weight 51.364, kg, Priority: STAT, Start date: 06/15/16 21:42:00 RECEPTION AGENT, Stop date: 06/15/16 21:42:00 CSTNotes: (Same as: Inderal) Inactive 06/16/2016 [facility] Sodium Chloride 0.154 MEQ/ML Injectable Solution 1,000 mL, Rate: 250 ml/hr, Infuse over: 4 hr, Route: IV, Dosing Weight 51.364 kg, Total Volume: 1,000, Start date: 06/15/16 21:40:00 RECEPTION AGENT, Duration: 30 day, Stop date: 07/15/16 21:39:00 RECEPTION AGENT No Longer Active 06/16/2016 [facility] Dilaudid 0.5 mg, Route: IVP, ONCE, Dosing Weight 51.364, kg, Priority: STAT, Start date: 06/15/16 21:39:00 RECEPTION AGENT, Stop date: 06/15/16 21:39:00 RECEPTION AGENT Inactive 06/16/2016 [facility] Sodium Chloride 0.154 MEQ/ML Injectable Solution 1,000 mL, 1,000 ml/hr, Infuse Over: 1 hr, Route: IV, 1,000, Drug form: INJ, ONCE, Priority: STAT, Dosing Weight 69.318 kg, Start date: 06/15/16 21:16:00 RECEPTION AGENT, Duration: 1 doses or times, Stop date: 06/15/16 21:16:00 RECEPTION AGENT Inactive 06/16/2016 [facility] Zofran 4 mg, 2 mL, Route: IVP, Drug form: INJ, ONCE, Dosing Weight 69.318, kg, Priority: STAT, Start date: 06/15/16 21:16:00 RECEPTION AGENT, Stop date: 06/15/16 21:16:00 CSTNotes: (Same as: Zofran) MEDICATION WASTE Product Size: 4 mg Product Wasted: ___ mg Inactive 06/16/2016 [facility] Acetaminophen With Codeine (Tylenol With Codeine #3 Tablet) 1 Each Tablet, 300 Mg Oral Every 6 Hours as needed for Pain Active [facility] 06/04/2016 [facility] Ferrous Sulfate (Feosol) 325 Mg Tablet, 325 Mg Oral Twice Daily With Meals Active [facility] 06/04/2016 [facility] Insulin Detemir 100 Unit/Ml Pen, 10 Unit Sub-Q Bedtime Active [facility] 06/04/2016 [facility] Methimazole 5 Mg Tablet, 10 Mg Oral Every 8 Hours Active [facility] 06/04/2016 [facility] Methimazole 10 Mg Tablet, 10 Mg Oral Daily Active 06/04/2016 [facility] Metoprolol Succinate (Toprol Xl) 50 Mg Tab.er.24h, 50 Mg Oral Twice A Day Active [facility] 06/04/2016 [facility] Potassium Chloride (K Dur*) 10 Meq Tabcr, 10 Meq Oral Daily Active [facility] 06/04/2016 [facility] insulin detemir U-100 (LEVEMIR) 100 unit/mL injection Inject 30 Units under the skin every evening . Subcutaneous Active [facility] insulin aspart U-100 (NOVOLOG U-100 INSULIN ASPART) 100 unit/mL injection Inject 12 Units under the skin 3 times daily. Subcutaneous Active [facility] Insulin Aspart (Novolog) 100 Unit/1 Ml Cartridge Three Times Daily With Meals Active [facility] Allergies, Adverse Reactions, Alerts Substance Category Reaction Severity Reaction type Status Date Reported Comments Source NSAIDS (Non-Steroidal Anti-Inflamma Hives Unknown Allergy to Substance Active 08/31/2017 [facility] Cefazolin Propensity to adverse reactions to drug Active 09/23/2017 [facility] Ciprofloxacin Hives Propensity to adverse reactions to drug Active 09/23/2017 [facility] Cephalexin Hives Propensity to adverse reactions to drug Active 09/23/2017 [facility] ciprofloxacin Assertion Drug allergy Active [facility] Ancef Assertion Severe Drug allergy Active [facility] Keflex<sup>1</sup> Assertion Rash, NOS Drug allergy Active tolerated Cefepime [place]23[place]16 [place] [facility] [place] doses as per MD and as documented in e-MAR [facility] Keflex Assertion Drug allergy Active [facility] Immunizations Immunization Date Given Site Status Last Updated Comments Source pneumococcal 23-valent vaccine 07/30/2016 Not Given [facility], AAKASH [place],[facility] influenza virus vaccine, inactivated 07/30/2016 Not Given [facility], AAKASH [place],[facility] pneumococcal 23-valent vaccine 06/20/2016 Not Given [facility] Results Order Name Results Value Reference Range Date Interpretation Comments Source BLOOD BANK RESULTS RBC product Product available (09/03/18 8:07 AM) 09/03/2018 [facility] BLOOD BANK RESULTS Antibody Scrn Negative (09/01/18 10:49 AM) 09/01/2018 [facility] BLOOD BANK RESULTS ABO/Rh O POS 09/01/2018 [facility] BLOOD BANK RESULTS RBC product Product available (09/01/18 7:00 AM) 09/01/2018 [facility] Automated urine sediment leukocyte count by microscopy (number/high power field) Automated urine sediment leukocyte count by microscopy (number/high power field) >50 0 - 5 04/20/2018 [facility] Bacteria detection in urine sediment by light microscopy Bacteria detection in urine sediment by light microscopy RARE NONE 04/20/2018 [facility] Epithelial cells detection in urine sediment by light microscopy Epithelial cells detection in urine sediment by light microscopy NONE NONE 04/20/2018 [facility] Erythrocytes detection in urine sediment by light microscopy Erythrocytes detection in urine sediment by light microscopy <20 0 - 5 04/20/2018 [facility] Specific gravity of Urine by Test strip Specific gravity of Urine by Test strip 1.020 1.010 - 1.025 04/20/2018 [facility] Urine clarity Urine clarity CLEAR CLEAR 04/20/2018 [facility] Urine color determination Urine color determination YELLOW YELLOW 04/20/2018 [facility] Urine erythrocytes detection Urine erythrocytes detection 3+ NEGATIVE 04/20/2018 [facility] Urine glucose detection Urine glucose detection NEGATIVE NEGATIVE 04/20/2018 [facility] Urine human chorionic gonadotropin (hCG) detection Urine human chorionic gonadotropin (hCG) detection NEGATIVE NEGATIVE 04/20/2018 [facility] Urine ketones detection by automated test strip Urine ketones detection by automated test strip NEGATIVE NEGATIVE 04/20/2018 [facility] Urine leukocyte esterase detection by dipstick Urine leukocyte esterase detection by dipstick 2+ NEGATIVE 04/20/2018 [facility] Urine nitrite detection Urine nitrite detection NEGATIVE NEGATIVE 04/20/2018 [facility] Urine pH measurement by automated test strip Urine pH measurement by automated test strip 6 5 - 7 04/20/2018 [facility] Urine protein measurement by test strip (mass/volume) Urine protein measurement by test strip (mass/volume) 1+ NEGATIVE 04/20/2018 [facility] Urine total bilirubin measurement (mass/volume) Urine total bilirubin measurement (mass/volume) NEGATIVE NEGATIVE 04/20/2018 [facility] Urine urobilinogen measurement by test strip (mass/volume) Urine urobilinogen measurement by test strip (mass/volume) 0.2 0.2 - 1 04/20/2018 [facility] URINE AND STOOL UA Color Ltyellow 10/30/2017 [facility] URINE AND STOOL UA Hyph Yeast Occasional *ABN* (10/29/17 11:06 PM) None Seen 10/30/2017 [facility] URINE AND STOOL UA RBC 11 0 - 2 10/30/2017 [facility] URINE AND STOOL UA WBC >182 0 - 5 10/30/2017 [facility] URINE AND STOOL UA Urobilinogen <=1.0 mg/dL 0.1 - 1.0 10/30/2017 [facility] URINE AND STOOL UA [place] Yeast Few /HPF None Seen /HPF 10/30/2017 [facility] URINE AND STOOL UA Mucus Few /LPF None Seen /LPF 10/30/2017 [facility] URINE AND STOOL UA Bacteria Occasional /HPF None Seen /HPF 10/30/2017 [facility] URINE AND STOOL UA Sq Epi Occasional /LPF Few /LPF 10/30/2017 [facility] URINE AND STOOL UA Leuk Est Large *ABN* (10/29/17 11:06 PM) Negative 10/30/2017 [facility] URINE AND STOOL UA Nitrite Negative (10/29/17 11:06 PM) Negative 10/30/2017 [facility] URINE AND STOOL UA Blood Large *ABN* (10/29/17 11:06 PM) Negative 10/30/2017 [facility] URINE AND STOOL UA Ketones Trace mg/dL Negative mg/dL 10/30/2017 [facility] URINE AND STOOL UA Glucose 500 mg/dL Negative mg/dL 10/30/2017 [facility] URINE AND STOOL UA Bili Negative *NA* (10/29/17 11:06 PM) Negative 10/30/2017 [facility] URINE AND STOOL UA Protein Negative mg/dL Negative mg/dL 10/30/2017 [facility] URINE AND STOOL UA pH 6.0 5.0 - 8.0 10/30/2017 [facility] URINE AND STOOL UA Spec Grav 1.005 <=1.030 10/30/2017 [facility] URINE AND STOOL UA Turbidity Marked *ABN* (10/29/17 11:06 PM) Clear 10/30/2017 [facility] Culture: Urine 10,000 - 50,000 CFU/mL Enterococcus Species 50,000 - 100,000 CFU/mL Gram Negative Rods, Lactose Fermenters <10,000 CFU/mL Gram Negative Rods, Non-Lactose Fermenters Specimen contains 3 or more potential pathogens; recommend correlation with urinalysis; if catheterized specimen recommend removal and recollection. If clinical situation warrants please call the laboratory for further testing. [place] [facility] [phone]. 10/30/2017 [facility] BLOOD BANK RESULTS ABO/Rh O POS 10/30/2017 [facility] BLOOD BANK RESULTS Antibody Scrn Negative (10/29/17 8:49 PM) 10/30/2017 [facility] CARDIAC ENZYMES CK MB Index 2.5 0.0 - 2.5 10/30/2017 [facility] CARDIAC ENZYMES Total CK 57 12 - 191 10/30/2017 [facility] CARDIAC ENZYMES CK MB 1.4 0.5 - 3.6 10/30/2017 [facility] CARDIAC ENZYMES Troponin-I <0.02 0.00 - 0.40 10/30/2017 [facility] CHEM PANEL eGFR 91 10/30/2017 Result Comment: The eGFR is calculated using the CKD-EPI formula. In most young, healthy individuals the eGFR will be >90 mL/min/1.73m2. The eGFR declines with age. An eGFR of 60-89 may be normal in some populations, particularly the elderly, for whom the CKD-EPI formula has not been extensively validated. Use of the eGFR is not recommended in the following populations:

Individuals with unstable creatinine concentrations, including patients and those with serious co-morbid conditions.

Patients with extremes in muscle mass or diet.

The data above are obtained from the National Kidney Disease Education Program (NKDEP) which additionally recommends that when the eGFR is used in patients with extremes of body mass index for purposes of drug dosing, the eGFR should be multiplied by the estimated BMI. [facility] CHEM PANEL Bili Total 0.9 0.2 - 1.3 10/30/2017 [facility] CHEM PANEL ALT 34 0 - 65 10/30/2017 [facility] CHEM PANEL Alk Phos 199 39 - 136 10/30/2017 [facility] CHEM PANEL AST 65 0 - 37 10/30/2017 [facility] CHEM PANEL AGAP 21.2 10.0 - 20.0 10/30/2017 [facility] CHEM PANEL Calcium Lvl 8.3 8.5 - 10.5 10/30/2017 [facility] CHEM PANEL CO2 17 24 - 32 10/30/2017 [facility] CHEM PANEL Globulin 6.8 2.7 - 4.2 10/30/2017 [facility] CHEM PANEL A/G Ratio 0.4 0.7 - 1.6 10/30/2017 [facility] CHEM PANEL B/C Ratio 39 6 - 25 10/30/2017 [facility] CHEM PANEL Albumin Lvl 2.8 3.5 - 5.0 10/30/2017 [facility] CHEM PANEL Total Protein 9.6 6.4 - 8.4 10/30/2017 [facility] CHEM PANEL Sodium Lvl 118 135 - 145 10/30/2017 [facility] CHEM PANEL Potassium Lvl 5.2 3.5 - 5.1 10/30/2017 [facility] CHEM PANEL Chloride Lvl 85 95 - 109 10/30/2017 [facility] CHEM PANEL Creatinine Lvl 0.80 0.50 - 1.40 10/30/2017 [facility] CHEM PANEL Glucose Lvl 470 70 - 99 10/30/2017 Result Comment: Critical Result(s) called Jossy Matamoros at 10/29/2017 21:26 by evelyn. Read back OK. [facility] CHEM PANEL BUN 31 7 - 22 10/30/2017 [facility] CHEM PANEL Lipase Lvl 294 73 - 393 10/30/2017 [facility] CHEM PANEL Ketone Quantitative 4.92 <=0.27 mmol/L 10/30/2017 [facility] CHEM PANEL Lactic Acid Lvl 3.8 0.5 - 2.2 10/30/2017 [facility] ENDOCRINOLOGY S Preg Negative *NA* (10/29/17 8:49 PM) Negative 10/30/2017 [facility] [place] PTT 28.6 22.9 - 35.8 10/30/2017 [facility] HEMATOLOGY PT 15.8 12.0 - 14.7 10/30/2017 [facility] [place] INR 1.25 0.85 - 1.17 10/30/2017 [facility] [place] Hct 43.6 36.0 - 48.0 10/30/2017 [facility] [place] MCV 75.8 80.0 - 98.0 10/30/2017 [facility] [place] MPV 11.7 7.4 - 10.4 10/30/2017 [facility] [place] Platelet 251 133 - 450 10/30/2017 [facility] [place] MCHC 32.7 32.0 - 36.0 10/30/2017 [facility] [place] RDW 23.5 11.5 - 14.5 10/30/2017 [facility] [place] MCH 24.8 27.0 - 31.0 10/30/2017 [facility] [place] WBC 7.6 3.7 - 10.4 10/30/2017 [facility] [place] RBC 5.75 4.20 - 5.40 10/30/2017 [facility] [place] Hgb 14.3 12.0 - 16.0 10/30/2017 [facility] [place] Microcyte 1+ *ABN* (10/29/17 8:49 PM) None Seen 10/30/2017 [facility] [place] Monocytes # 1.0 0.0 - 0.8 10/30/2017 [facility] [place] Lymphocytes # 1.7 1.0 - 5.5 10/30/2017 [facility] [place] Segs-Bands # 4.9 1.5 - 8.1 10/30/2017 [facility] [place] Basophils 0.1 0.0 - 1.0 10/30/2017 [facility] [place] Eosinophils 0.1 0.0 - 4.0 10/30/2017 [facility] [place] Monocytes 13.2 2.0 - 12.0 10/30/2017 [facility] [place] Lymphocytes 22.8 20.0 - 40.0 10/30/2017 [facility] [place] Segs 63.8 45.0 - 75.0 10/30/2017 [facility] [place] Anisocyte 1+ *ABN* (10/29/17 8:49 PM) None Seen 10/30/2017 [facility] [place] Plt Morph Normal (10/29/17 8:49 PM) 10/30/2017 [facility] Estimated glomerular filtration rate (GFR) determination Estimated glomerular filtration rate (GFR) determination >60 60 10/24/2017 [facility] Glucose measurement Glucose measurement 141 74 - 118 10/24/2017 [facility] Serum or plasma anion gap Serum or plasma anion gap 24.0 8 - 16 10/24/2017 [facility] Serum or plasma calcium measurement (mass/volume) Serum or plasma calcium measurement (mass/volume) 8.3 8.4 - 10.2 10/24/2017 [facility] Serum or plasma carbon dioxide, total measurement (moles/volume) Serum or plasma carbon dioxide, total measurement (moles/volume) 12 22 - 29 10/24/2017 [facility] Serum or plasma chloride measurement (moles/volume) Serum or plasma chloride measurement (moles/volume) 102 98 - 107 10/24/2017 [facility] Serum or plasma creatinine measurement (mass/volume) Serum or plasma creatinine measurement (mass/volume) 0.65 0.57 - 1.11 10/24/2017 [facility] Serum or plasma potassium measurement (moles/volume) Serum or plasma potassium measurement (moles/volume) 4.0 3.5 - 5.1 10/24/2017 [facility] Serum or plasma sodium measurement (moles/volume) Serum or plasma sodium measurement (moles/volume) 134 136 - 145 10/24/2017 [facility] Serum or plasma urea nitrogen measurement (mass/volume) Serum or plasma urea nitrogen measurement (mass/volume) 23 7 - 26 10/24/2017 [facility] Serum or plasma urea nitrogen/creatinine mass ratio Serum or plasma urea nitrogen/creatinine mass ratio 35 6 - 25 10/24/2017 [facility] Automated blood basophil count (count/volume) Automated blood basophil count (count/volume) 0.0 0.0 - 0.1 10/23/2017 [facility] Automated blood basophil count as percentage of total leukocytes Automated blood basophil count as percentage of total leukocytes 0.3 0.0 - 1.0 10/23/2017 [facility] Automated blood eosinophil count Automated blood eosinophil count 0.0 0.0 - 0.4 10/23/2017 [facility] Automated blood eosinophil count as percentage of total leukocytes Automated blood eosinophil count as percentage of total leukocytes 0.4 0.0 - 6.0 10/23/2017 [facility] Automated blood hematocrit (volume fraction) Automated blood hematocrit (volume fraction) 41.7 34.2 - 44.1 10/23/2017 [facility] Automated blood lymphocyte count as percentage ot total leukocytes Automated blood lymphocyte count as percentage ot total leukocytes 26.7 18.0 - 39.1 10/23/2017 [facility] Automated blood monocyte count as percentage of total leukocytes Automated blood monocyte count as percentage of total leukocytes 11.5 4.4 - 11.3 10/23/2017 [facility] Automated blood neutrophil count Automated blood neutrophil count 4.4 2.1 - 6.9 10/23/2017 [facility] Automated blood platelet count (count/volume) Automated blood platelet count (count/volume) 372 140 - 360 10/23/2017 [facility] Automated blood segmented neutrophil count as percentage of total leukocytes Automated blood segmented neutrophil count as percentage of total leukocytes 60.8 38.7 - 80.0 10/23/2017 [facility] Automated erythrocyte mean corpuscular hemoglobin (mass per erythrocyte) Automated erythrocyte mean corpuscular hemoglobin (mass per erythrocyte) 23.4 28 - 32 10/23/2017 [facility] Automated erythrocyte mean corpuscular hemoglobin concentration measurement (mass/volume) Automated erythrocyte mean corpuscular hemoglobin concentration measurement (mass/volume) 31.2 31 - 35 10/23/2017 [facility] Automated erythrocyte mean corpuscular volume Automated erythrocyte mean corpuscular volume 75.0 81 - 99 10/23/2017 [facility] Blood erythrocytes automated count (number/volume) Blood erythrocytes automated count (number/volume) 5.56 3.6 - 5.1 10/23/2017 [facility] Blood hemoglobin measurement (moles/volume) Blood hemoglobin measurement (moles/volume) 13.0 12.0 - 16.0 10/23/2017 [facility] Blood leukocytes automated count (number/volume) Blood leukocytes automated count (number/volume) 7.15 4.8 - 10.8 10/23/2017 [facility] Blood lymphocytes count (number/volume) Blood lymphocytes count (number/volume) 1.9 1.0 - 3.2 10/23/2017 [facility] Blood monocytes automated count (number/volume) Blood monocytes automated count (number/volume) 0.8 0.2 - 0.8 10/23/2017 [facility] Plasma globulin measurement (mass/volume) Plasma globulin measurement (mass/volume) 6.0 2.3 - 3.5 10/23/2017 [facility] Serum or plasma alanine aminotransferase measurement (enzymatic activity/volume) Serum or plasma alanine aminotransferase measurement (enzymatic activity/volume) 26 0 - 55 10/23/2017 [facility] Serum or plasma albumin measurement (mass/volume) Serum or plasma albumin measurement (mass/volume) 3.4 3.5 - 5.0 10/23/2017 [facility] Serum or plasma albumin/globulin mass ratio Serum or plasma albumin/globulin mass ratio 0.6 0.8 - 2.0 10/23/2017 [facility] Serum or plasma alkaline phosphatase measurement (enzymatic activity/volume) Serum or plasma alkaline phosphatase measurement (enzymatic activity/volume) 220 40 - 150 10/23/2017 [facility] Serum or plasma protein measurement (mass/volume) Serum or plasma protein measurement (mass/volume) 9.4 6.5 - 8.1 10/23/2017 [facility] Serum or plasma total bilirubin measurement (mass/volume) Serum or plasma total bilirubin measurement (mass/volume) 0.6 0.2 - 1.2 10/23/2017 [facility] Red Cell Distribution Width 22.8 11.7 - 14.4 10/23/2017 [facility] IM GRANULOCYTES % 0.3 0.0 - 1.0 10/23/2017 [facility] Absolute Immature Granulocyte (auto 0.02 0 - 0.1 10/23/2017 [facility] Aspartate Amino Transf (AST/SGOT) 34 5 - 34 10/23/2017 [facility] THYROID STIM IMMUN Thyroid Stim Immun (note) RESULT: 2.80 High UNIT: IU/L REFERENCE INTERVAL: 0.00-0.55 10/18/2017 [facility] THYROID PEROXIDASE (TPO) AB Thy Perox (TPO) Ab 120 Reference range: 0 to 34 Unit: IU/mL 10/07/2017 [facility] THYROID PEROXIDASE (TPO) AB Lab Interpretation Abnormal 10/07/2017 [facility] PATHOLOGIST REVIEW Pathologist Review Gama Hernandez M.D./[id number] (note) Pt name: Chika Bojorquez PB smear bar code# [id number] CBC and peripheral blood smear review: Microcytic, hypochromatic anemia CBC and differential confirmed Morphology: RBCs: Decreased in number; microocytic, hypochromic; mild anisopoikilocytosis; polychromasia not adequate; schistocytes absent; nucleated RBCs absent; intracellular organisms absent. WBCs: normal in number; normal morphology; dysplasia absent; rare plasma cells present Platelets: normal in number; normal morphology many large forms. platelet clumps present CPT 36544 Gama Hernandez MD #[id number] 09/30/2017 [facility] GLUCOSE POC Glucose POC 205 74 - 106 09/30/2017 [facility] GLUCOSE POC Lab Interpretation Abnormal 09/30/2017 [facility] BASIC METABOLIC PANEL CO2 25 21 - 32 09/30/2017 [facility] BASIC METABOLIC PANEL Chloride 105 98 - 107 09/30/2017 [facility] BASIC METABOLIC PANEL Potassium 3.6 3.5 - 5.1 09/30/2017 [facility] BASIC METABOLIC PANEL Sodium 138 136 - 145 09/30/2017 [facility] BASIC METABOLIC PANEL Glucose 193 70 - 99 09/30/2017 [facility] BASIC METABOLIC PANEL Urea Nitrogen 10 7 - 18 09/30/2017 [facility] BASIC METABOLIC PANEL Creatinine 0.30 0.6 - 1.3 09/30/2017 [facility] BASIC METABOLIC PANEL Anion Gap 8 09/30/2017 [facility] BASIC METABOLIC PANEL Calcium 8.3 8.5 - 10.2 09/30/2017 [facility] BASIC METABOLIC PANEL GFR, Estimated >60 mL/min/1.73 m2 09/30/2017 [facility] BASIC METABOLIC PANEL GFR, Estim, Afr-Am >60 mL/min/1.73 m2 09/30/2017 [facility] BASIC METABOLIC PANEL Lab Interpretation Abnormal 09/30/2017 [facility] CBC/DIFF WBC 3.7 4.5 - 11 09/30/2017 [facility] CBC/DIFF RBC 3.62 4.20 - 5.40 09/30/2017 [facility] CBC/DIFF Hemoglobin 7.8 12 - 16 09/30/2017 [facility] CBC/DIFF Hematocrit 27.0 37 - 47 09/30/2017 [facility] CBC/DIFF MCV 75 82 - 92 09/30/2017 [facility] CBC/DIFF MCH 21.5 27 - 32 09/30/2017 [facility] CBC/DIFF MCHC 28.9 32 - 36 09/30/2017 [facility] CBC/DIFF RDW 54.4 36.4 - 46.3 09/30/2017 [facility] CBC/DIFF Platelet 300 150 - 400 09/30/2017 [facility] CBC/DIFF Mean Platelet Volume 11.4 9.4 - 12.4 09/30/2017 [facility] CBC/DIFF Percent NRBC 0.0 09/30/2017 [facility] CBC/DIFF Absolute NRBC 0.00 09/30/2017 [facility] CBC/DIFF Neutrophil 44.5 34 - 70 09/30/2017 [facility] CBC/DIFF Lymphocyte 37.9 20 - 50 09/30/2017 [facility] CBC/DIFF Monocyte 12.4 5 - 12 09/30/2017 [facility] CBC/DIFF Eosinophil 4.6 0.7 - 5 09/30/2017 [facility] CBC/DIFF Basophil 0.3 0.1 - 1.2 09/30/2017 [facility] CBC/DIFF Pct Immat Gran 0.3 0.0 - 0.5 09/30/2017 [facility] CBC/DIFF Neutrophil, Abs 1.66 1.56 - 6.13 09/30/2017 [facility] CBC/DIFF Lymphocyte, Abs 1.41 1.18 - 3.74 09/30/2017 [facility] CBC/DIFF Monocyte, Abs 0.46 0.24 - 0.36 09/30/2017 [facility] CBC/DIFF Eosinophil, Abs 0.17 0.04 - 0.36 09/30/2017 [facility] CBC/DIFF Basophil, Abs 0.01 0.01 - 0.08 09/30/2017 [facility] CBC/DIFF Absol Immat Gran 0.01 0 - 0.03 09/30/2017 [facility] CBC/DIFF Lab Interpretation Abnormal 09/30/2017 [facility] VITAMIN B12 Vitamin B12 656 211 - 911 09/29/2017 [facility] FERRITIN Ferritin 30.60 11 - 306.8 09/29/2017 [facility] FOLIC ACID Folic Acid 19.9 5.9 - 24.8 09/29/2017 [facility] HAPTOGLOBIN Haptoglobin 206.5 44 - 215 09/29/2017 [facility] IRON PROFILE Iron 182 50 - 212 09/29/2017 [facility] IRON PROFILE TIBC 312 250 - 450 09/29/2017 [facility] IRON PROFILE % Iron Sat 58 09/29/2017 [facility] LDH LDH 161 84 - 246 09/29/2017 [facility] RETIC COUNT Retic Count 1.3 0.5 - 1.7 09/29/2017 [facility] RETIC COUNT Immature Retic 18.2 3 - 15.9 09/29/2017 [facility] RETIC COUNT Ret Hgb Equivalent 23.00 30.8 - 36.6 09/29/2017 [facility] RETIC COUNT Absolute Retic 0.05 0.02 - 0.08 09/29/2017 [facility] RETIC COUNT Lab Interpretation Abnormal 09/29/2017 [facility] HEPATITIS PANEL HCV IgG Negative NEG 09/29/2017 [facility] HEPATITIS PANEL HBsAg Negative NEG 09/29/2017 [facility] HEPATITIS PANEL HAV, IgM Negative NEG 09/29/2017 [facility] HEPATITIS PANEL HBcAb, IgM Negative NEG 09/29/2017 [facility] VANCOMYCIN, TROUGH Vancomycin, Trough 9.7 10 - 20 09/29/2017 [facility] VANCOMYCIN, TROUGH Lab Interpretation Abnormal 09/29/2017 [facility] LIVER PROFILE T Protein 6.9 6.4 - 8.2 09/28/2017 [facility] LIVER PROFILE Albumin 2.6 3.4 - 5 09/28/2017 [facility] LIVER PROFILE T Bilirubin 0.3 0.2 - 1 09/28/2017 [facility] LIVER PROFILE Alk Phos 179 45 - 117 09/28/2017 [facility] LIVER PROFILE AST 26 15 - 37 09/28/2017 [facility] LIVER PROFILE ALT 21 12 - 78 09/28/2017 [facility] LIVER PROFILE D Bilirubin 0.1 0 - 0.2 09/28/2017 [facility] LIVER PROFILE Lab Interpretation Abnormal 09/28/2017 [facility] MAGNESIUM Magnesium 1.4 1.8 - 2.4 09/28/2017 [facility] MAGNESIUM Lab Interpretation Abnormal 09/28/2017 [facility] PHOSPHORUS Phosphorus 2.6 2.5 - 4.9 09/28/2017 [facility] TOTAL T3 Total T3 >800 87 - 178 09/28/2017 [facility] TOTAL T3 Lab Interpretation Abnormal 09/28/2017 [facility] URINE DRUG SCREEN Amphetamine Negative NEG 09/27/2017 Calibrated Standard: D-Methamphetamine
Positive if urine level >ro=5812 ng/mL

[facility] URINE DRUG SCREEN Barbiturate Negative NEG 09/27/2017 Calibrated Standard: Secobarbital
Positive if urine level is >vc=910 ng/mL

[facility] URINE DRUG SCREEN Benzodiazepine Negative NEG 09/27/2017 Calibrated Standard: Lormethazepam
Positive if urine level is >ff=077 ng/mL

[facility] URINE DRUG SCREEN Cannabinoid Negative NEG 09/27/2017 Calibrated Standard: 11 nor-delta(9)-THC carboxylic a
Positive if urine level >or=50

[facility] URINE DRUG SCREEN Cocaine Negative NEG 09/27/2017 Calibrated Standard: Benzoylecgonine
Positive if urine level >xb=401

[facility] URINE DRUG SCREEN Opiate, Ur Positive NEG 09/27/2017 Calibrated Standard: Morphine
Positive if urine level >lu=496

[facility] URINE DRUG SCREEN PCP Negative NEG 09/27/2017 Calibrated Standard: Phencyclidine
Positive if urine level >or=25
Urine Toxicology Screen results are to be used only for Medical purposes.

[facility] URINE DRUG SCREEN Lab Interpretation Abnormal 09/27/2017 [facility] PT/INR/PTT PT 14.6 11.8 - 15.0 09/27/2017 [facility] PT/INR/PTT INR 1.1 SUGGESTED THERAPEUTIC RANGES: INR 2.0-3.0 for MODERATE INTENSITY ANTICOAGULATION INR 2.5-3.5 for HIGH INTENSITY ANTICOAGULATION 09/27/2017 [facility] PT/INR/PTT PTT 34.3 23.6 - 36.4 09/27/2017 [facility] COMPREHENSIVE METABOLIC PANEL(DBIL NOT INCLUDED) Albumin 2.7 3.4 - 5 09/27/2017 [facility] COMPREHENSIVE METABOLIC PANEL(DBIL NOT INCLUDED) Calcium 8.3 8.5 - 10.2 09/27/2017 [facility] COMPREHENSIVE METABOLIC PANEL(DBIL NOT INCLUDED) CO2 25 21 - 32 09/27/2017 [facility] COMPREHENSIVE METABOLIC PANEL(DBIL NOT INCLUDED) Chloride 104 98 - 107 09/27/2017 [facility] COMPREHENSIVE METABOLIC PANEL(DBIL NOT INCLUDED) Creatinine 0.23 0.6 - 1.3 09/27/2017 [facility] COMPREHENSIVE METABOLIC PANEL(DBIL NOT INCLUDED) Glucose 124 70 - 99 09/27/2017 [facility] COMPREHENSIVE METABOLIC PANEL(DBIL NOT INCLUDED) Alk Phos 217 45 - 117 09/27/2017 [facility] COMPREHENSIVE METABOLIC PANEL(DBIL NOT INCLUDED) Potassium 3.3 3.5 - 5.1 09/27/2017 [facility] COMPREHENSIVE METABOLIC PANEL(DBIL NOT INCLUDED) Sodium 137 136 - 145 09/27/2017 [facility] COMPREHENSIVE METABOLIC PANEL(DBIL NOT INCLUDED) ALT 22 12 - 78 09/27/2017 [facility] COMPREHENSIVE METABOLIC PANEL(DBIL NOT INCLUDED) AST 31 15 - 37 09/27/2017 [facility] COMPREHENSIVE METABOLIC PANEL(DBIL NOT INCLUDED) Urea Nitrogen 10 7 - 18 09/27/2017 [facility] COMPREHENSIVE METABOLIC PANEL(DBIL NOT INCLUDED) T Bilirubin 0.3 0.2 - 1 09/27/2017 [facility] COMPREHENSIVE METABOLIC PANEL(DBIL NOT INCLUDED) T Protein 7.2 6.4 - 8.2 09/27/2017 [facility] COMPREHENSIVE METABOLIC PANEL(DBIL NOT INCLUDED) GFR, Estimated >60 mL/min/1.73 m2 09/27/2017 [facility] METABOLIC PANEL(DBIL NOT INCLUDED) GFR, Estim, Afr-Am >60 mL/min/1.73 m2 09/27/2017 [facility] METABOLIC PANEL(DBIL NOT INCLUDED) Anion Gap 8 09/27/2017 [facility] METABOLIC PANEL(DBIL NOT INCLUDED) Lab Interpretation Abnormal 09/27/2017 [facility] 12 LEAD EKG 12 LEAD EKG FOR CHP [facility] Test Date:2017-09-26 Pat Name: CHIKA BOJORQUEZ Department: : Gender: FTechnician: [id number] Requested By: Order Number:Reading MD: Merrill BRIGHT Measurements IntervalsAxis Rate: 135P:52 TX: 164QRS:27 QRSD: 81 T:56 QT: 291 QTc:437 Interpretive Statements SINUS TACHYCARDIA POSSIBLE LEFT ATRIAL ENLARGEMENT Poor anterior R wave progression Technically Poor Tracing affects interpretation Abnormal ECG Electronically Signed On 09-27-17 07:49:15 RECEPTION AGENT by Merrill BRIGHT 09/27/2017 [facility] FREE T4 Free T4 >6.00 0.61 - 1.12 09/27/2017 females:
1st Trimester-0.52-1.10 ng/dL
2nd Trimester=0.45- 0.99 ng/dL
3rd Trimester=0.48-0.95 ng/dL

[facility] FREE T4 Lab Interpretation Abnormal 09/27/2017 [facility] TSH TSH <0.01 0.45 - 5.33 09/27/2017 [facility] TSH Lab Interpretation Abnormal 09/27/2017 [facility] BEDSIDE ULTRASOUND <p>Lamar Hinojosa MD 11/08/2017 10:40 AM</p><p>Bedside Ultrasound</p><p>Date/Time: 09/26/2017 10:30 PM</p><p&amp ;gt;Performed by: LAMAR HINOJOSA</p><p>Authorized by: LAMAR HINOJOSA </p><p> </p><p>Consent: </p><p>Consent obtained:Verbal and emergent situation</p><p>Consent given by:Patient</p><p>Post-procedure details: </p>< p>Patient tolerance of procedure:Tolerated well, no immediate </p><p>complications</p><p>Comments: </p><p> Procedure: Bedside Ultrasound(Limited Cardiac and IVC)</p><p>Indication: sepsis</p><p>Findings: Flat IVC, LV function hyperdynamic, no pericardial effusion. </p> Lamar Hinojosa MD 11/08/2017 10:40 AMBedside UltrasoundDate/Time: 09/26/2017 10:30 PMPerformed by: LAMAR HINOJOSA BAuthorized by: LAMAR HINOJOSA Consent: Consent obtained:Verbal and emergent situationConsent given by:PatientPost-procedure details: Patient tolerance of procedure:Tolerated well, no immediate complicationsComments: Procedure: Bedside Ultrasound(Limited Cardiac and IVC)Indication: sepsisFindings: Flat IVC, LV function hyperdynamic, no pericardial effusion. [facility] pH, [place] P[facility] 7.46 7.33 - 7.43 09/27/2017 [facility] pCO2, [place] POC 34.0 38.0 - 50.0 09/27/2017 [facility] pO2, [place] POC 125 50 - 75 09/27/[facility] Base Excess, [place] POC 1 09/27/2017 [facility] HCO3, [place] POC 24.2 22 - 26 09/27/2017 [facility] % Sat, [place] POC 99 60 - 85 09/27/2017 [facility] Lactic Acid, [place] POC 1.66 0.4 - 2 09/27/2017 [facility] TCO2, [place] POC 25 21 - 32 09/27/2017 [facility] Lab Interpretation Abnormal 09/27/2017 [facility] BLOOD CULTURE Spec Description Blood 09/27/2017 [facility] BLOOD CULTURE Order Comments None 09/27/2017 [facility] BLOOD CULTURE Culture No growth 5 days 09/27/2017 [facility] BLOOD CULTURE Report Status Final 10/02/2017 09/27/2017 [facility] UA CHEMISTRIES Color Yellow 09/27/2017 [facility] UA CHEMISTRIES Clarity Cloudy 09/27/2017 [facility] UA CHEMISTRIES Spec [place] 1.020 1.001 - 1.035 09/27/2017 [facility] UA CHEMISTRIES pH 5.0 5 - 8 09/27/2017 [facility] UA CHEMISTRIES Protein 2+ NEG 09/27/2017 [facility] UA CHEMISTRIES Glucose Negative NEG 09/27/2017 [facility] UA CHEMISTRIES Ketone Negative NEG 09/27/2017 [facility] UA CHEMISTRIES Bilirubin Negative NEG 09/27/2017 [facility] UA CHEMISTRIES Nitrate Negative NEG 09/27/2017 [facility] UA CHEMISTRIES Urobilinogen <1.0 0.2 - 1 09/27/2017 [facility] UA CHEMISTRIES Leukocyte 3+ NEG 09/27/2017 [facility] UA CHEMISTRIES Blood 3+ NEG 09/27/2017 [facility] UA CHEMISTRIES RBC >182 0 - 4 09/27/2017 [facility] UA CHEMISTRIES WBC >182 0 - 5 09/27/2017 [facility] UA CHEMISTRIES Bacteria Few 09/27/2017 [facility] UA CHEMISTRIES Yeast Present 09/27/2017 [facility] UA CHEMISTRIES Epithelial Cell 1 /HPF 09/27/2017 [facility] UA CHEMISTRIES Calc Ox [place] Present 09/27/2017 [facility] UA CHEMISTRIES Lab Interpretation Abnormal 09/27/2017 [facility] URINE CULTURE Culture No growth 2 days BT MICROBIOLOGY 09/27/[address] [facility] POC CO2 POC 22 21 - 32 09/27/[address] [facility] POC Chloride POC 98 98 - 107 09/27/[address] [facility] POC Potassium POC 4.2 3.5 - 5.1 09/27/[address] [facility] POC Sodium POC 137 136 - 145 09/27/[address] [facility] POC Glucose POC 193 74 - 106 09/27/[address] [facility] POC Urea Nitrogen POC 12 7 - 18 09/27/[address] [facility] POC Creatinine POC <0.2 0.6 - 1.3 09/27/[address] [facility] POC Calcium Ionized POC 1.15 1.15 - 1.29 09/27/[address] [facility] POC Hemoglobin POC 12.6 12 - 16 09/27/[address] [facility] POC Hematocrit POC 37.0 37 - 47 09/27/[address] [facility] POC GFR, Estimated Unable to calculate, parameters incomplete mL/min/1.73 m2 09/27/[address] [facility] POC GFR, Estim, Afr-Am Unable to calculate, parameters incomplete mL/min/1.73 m2 09/27/2017 [facility] BMP POC Lab Interpretation Abnormal 09/27/2017 [facility] (note) Name CHIKA BOJORQUEZ Date of 1975 Hospital Number [id number] Location Gynecology Clinic CYTOPATHOLOGY Collected:09/23/2017 13:30 Received: 09/24/2017 [...] analyzed by the automated [employer] Imaging System, [email or web address], [place], [place]. 09/26/2017 [facility] HPV HIGH-RISK HPV High Risk Negative NEG 09/24/2017 The APTIMA HPV Assay is an in vitro nucleic acid amplification test for the
qualitative detection of E6/E7 viral messenger RNA (mRNA) from 14 high-risk
types of human papillomavirus (HPV) in cervical specimens. The high-risk HPV
types detected by the assay include: 16,18,31,33,35,39,45,51,52,56,58,59,66,
and 68.

[facility] HPV HIGH-RISK [employer] Spec Number [id number] 09/24/2017 [facility] SYPHILIS SCREEN FOR INFECTION Treponemal Ab Negative 09/24/2017 [facility] SYPHILIS SCREEN FOR INFECTION Final Report Negative 09/24/2017 [facility] CHLAM/GC DNA AMPLI Chlamydia trach Negative NEG 09/24/2017 [facility] CHLAM/GC DNA AMPLI N gonorrhoeae Negative NEG 09/24/2017 This test utilizes [email or web address] Aptima Combo 2 Assay for target amplification of
rRNA for the qualitative detection of Chlamydia trachomatis and Neisseria
gonorrhea.

[facility] CHLAM/GC DNA AMPLI Spec Description Endovervical 09/24/2017 [facility] WET MOUNT Spec Description Vaginal 09/24/2017 [facility] WET MOUNT Order Comments None 09/24/2017 [facility] WET M[place] Exam WBC's seen Epithelial cells Yeast No Clue cells seen No Trichomonas seen Bacteria present 09/24/2017 [facility] WET M[place] Report Status Final 09/23/2017 09/24/2017 [facility] CLARISSA STAIN Spec Description Vaginal 09/24/2017 [facility] CLARISSA STAIN Order Comments None 09/24/2017 [facility] CLARISSA STAIN Direct Exam Hyphal elements seen 09/24/2017 [facility] CLARISSA STAIN Report Status Final 09/23/2017 09/24/2017 [facility] HEMOGLOBIN A1C Hemoglobin A1c 8.8 4.3 - 6.1 09/24/2017 [facility] HEMOGLOBIN A1C Est Average Gluc 205.9 09/24/2017 [facility] HEMOGLOBIN A1C Lab Interpretation Abnormal 09/24/2017 [facility] HIV-1/HIV-2 DIAGNOSTIC/SYMPTOMATIC HIV-1/HIV-2 Negative NEG 09/23/2017 [facility] Capillary blood glucose measurement by glucometer (mass/volume) Capillary blood glucose measurement by glucometer (mass/volume) 88 70 - 120 09/03/2017 [facility] Serum or plasma triiodothyronine (T3) free measurement (mass/volume) Serum or plasma triiodothyronine (T3) free measurement (mass/volume) 2.1 2.0 - 4.4 09/02/2017 [facility] Free thyroxine index Free thyroxine index [id number] 1.4 - 3.8 09/02/2017 [facility] Serum or plasma thyrotropin measurement by detection limit <=0.005 miu/l (units/volume) Serum or plasma thyrotropin measurement by detection limit <=0.005 miu/l (units/volume) 0.001 0.350 - 4.940 09/02/2017 [facility] Serum or plasma thyroxine (T4) free measurement (mass/volume) Serum or plasma thyroxine (T4) free measurement (mass/volume) 4.73 0.9 - 1.8 09/02/2017 [facility] Serum or plasma thyroxine (T4) measurement (mass/volume) Serum or plasma thyroxine (T4) measurement (mass/volume) >24.00 4.5 - 10.9 09/02/2017 [facility] Serum or plasma triiodothyronine resin uptake (T3RU) Serum or plasma triiodothyronine resin uptake (T3RU) 36.07 22.5 - 37.0 09/02/2017 [facility] Serum or plasma amylase measurement (enzymatic activity/volume) Serum or plasma amylase measurement (enzymatic activity/volume) 54 25 - 125 09/01/2017 [facility] Serum or plasma iron binding capacity measurement (mass/volume) Serum or plasma iron binding capacity measurement (mass/volume) 312 261 - 478 09/01/2017 [facility] Serum or plasma iron measurement (mass/volume) Serum or plasma iron measurement (mass/volume) 17 50 - 170 09/01/2017 [facility] Serum or plasma iron saturation measurement (mass fraction) Serum or plasma iron saturation measurement (mass fraction) 5 15 - 50 09/01/2017 [facility] Serum or plasma lipase measurement (enzymatic activity/volume) Serum or plasma lipase measurement (enzymatic activity/volume) 45 8 - 78 09/01/2017 [facility] Serum or plasma transferrin measurement (mass/volume) Serum or plasma transferrin measurement (mass/volume) 223 180 - 382 09/01/2017 [facility] Blood culture Blood culture NO GROWTH AFTER 5 DAYS, FINAL REPORT 08/31/2017 [facility] Lactic Acid Level 10.7 4.5 - 19.8 08/31/2017 [facility] Serum or plasma choriogonadotropin ( test) detection Serum or plasma choriogonadotropin ( test) detection NEGATIVE NEGATIVE 08/31/2017 [facility] Serum or plasma creatine kinase MB measurement (mass/volume) Serum or plasma creatine kinase MB measurement (mass/volume) 1.20 0.00 - 5.00 08/31/2017 [facility] Serum or plasma creatine kinase measurement (enzymatic activity/volume) Serum or plasma creatine kinase measurement (enzymatic activity/volume) 28 29 - 168 08/31/2017 [facility] Troponin I measurement by highly sensitive enzyme immunoassay Troponin I measurement by highly sensitive enzyme immunoassay 0.014 0 - 0.300 08/31/2017 [facility] Automated fine granular casts count in urine sediment by microscopy lowpower field (number/area) Automated fine granular casts count in urine sediment by microscopy lowpower field (number/area) <5 0 08/31/2017 [facility] Mucus detection in urine sediment by light microscopy Mucus detection in urine sediment by light microscopy MODERATE RARE 08/31/2017 [facility] Yeast detection in urine sediment by light microscopy Yeast detection in urine sediment by light microscopy FEW NONE 08/31/2017 [facility] INR in Platelet poor plasma by Coagulation assay INR in Platelet poor plasma by Coagulation assay 0.97 08/03/2017 [facility] Prothrombin time (PT) in platelet poor plasma by coagulation assay Prothrombin time (PT) in platelet poor plasma by coagulation assay 13.4 11.9 - 14.5 08/03/2017 [facility] Stool gastrointestinal hemoglobin detection Stool gastrointestinal hemoglobin detection NEGATIVE NEGATIVE 08/01/2017 [facility] Phosphorus measurement Phosphorus measurement 2.8 2.3 - 4.7 08/01/2017 [facility] Serum or plasma magnesium measurement (mass/volume) Serum or plasma magnesium measurement (mass/volume) 1.5 1.3 - 2.1 08/01/2017 [facility] Serum or plasma thyroperoxidase antibody assay (units/volume) Serum or plasma thyroperoxidase antibody assay (units/volume) 155 0 - 34 08/01/2017 [facility] Hemoglobin A1c Percent 9.8 4.0 - 7.0 08/01/2017 [facility] Blood anisocytosis detection by light microscopy Blood anisocytosis detection by light microscopy SLIGHT 07/31/2017 [facility] Blood platelets count by estimate (number/volume) Blood platelets count by estimate (number/volume) ADEQUATE 07/31/2017 [facility] Blood poikilocytosis detection by light microscopy Blood poikilocytosis detection by light microscopy SLIGHT 07/31/2017 [facility] Manual basophil percentage Manual basophil percentage 1 0 - 1.5 07/31/2017 [facility] Manual blood lymphocytes/100 leukocytes Manual blood lymphocytes/100 leukocytes 34 19 - 48 07/31/2017 [facility] Manual blood monocytes/100 leukocytes Manual blood monocytes/100 leukocytes 11 3.4 - 9.0 07/31/2017 [facility] Manual blood neutrophils/100 leukocytes Manual blood neutrophils/100 leukocytes 54 40 - 74 07/31/2017 [facility] Platelet morphology Platelet morphology FEW LARGE 07/31/2017 [facility] RBC morphology RBC morphology NORMAL 07/31/2017 [facility] Differential Total Cells Counted 100 07/31/2017 [facility] Barbiturates screen, urine Barbiturates screen, urine NEGATIVE NEGATIVE 07/31/2017 [facility] Urine amphetamines detection by screen method > 1000 ng/mL Urine amphetamines detection by screen method > 1000 ng/mL NEGATIVE NEGATIVE 07/31/2017 [facility] Urine benzodiazepines detection by screening method Urine benzodiazepines detection by screening method POSITIVE NEGATIVE 07/31/2017 [facility] Urine cannabinoids detection by screening method Urine cannabinoids detection by screening method NEGATIVE NEGATIVE 07/31/2017 [facility] Urine opiates screening test Urine opiates screening test NEGATIVE NEGATIVE 07/31/2017 [facility] Urine phencyclidine detection by screening method Urine phencyclidine detection by screening method NEGATIVE NEGATIVE 07/31/2017 [facility] Urine Cocaine Screen NEGATIVE NEGATIVE 07/31/2017 [facility] ELECTROLYTES AGAP 11.6 10.0 - 20.0 03/18/2017 [facility] ELECTROLYTES eGFR 162 03/18/2017 Result Comment: The eGFR is calculated using the CKD-EPI formula. In most young, healthy individuals the eGFR will be >90 mL/min/1.73m2. The eGFR declines with age. An eGFR of 60-89 may be normal in some populations, particularly the elderly, for whom the CKD-EPI formula has not been extensively validated. Use of the eGFR is not recommended in the following populations:

Individuals with unstable creatinine concentrations, including patients and those with serious co-morbid conditions.

Patients with extremes in muscle mass or diet.

The data above are obtained from the National Kidney Disease Education Program (NKDEP) which additionally recommends that when the eGFR is used in patients with extremes of body mass index for purposes of drug dosing, the eGFR should be multiplied by the estimated BMI. [facility] ELECTROLYTES Creatinine Lvl 0.20 0.50 - 1.40 03/18/2017 [facility] ELECTROLYTES BUN 8 7 - 22 03/18/2017 [facility] ELECTROLYTES Calcium Lvl 8.7 8.5 - 10.5 03/18/2017 [facility] ELECTROLYTES CO2 24 24 - 32 03/18/2017 [facility] ELECTROLYTES Chloride Lvl 108 95 - 109 03/18/2017 [facility] ELECTROLYTES Sodium Lvl 140 135 - 145 03/18/2017 [facility] ELECTROLYTES Potassium Lvl 3.6 3.5 - 5.1 03/18/2017 [facility] ELECTROLYTES Glucose Lvl 68 70 - 99 03/18/2017 [facility] [place] Lymphocytes # 2.3 1.0 - 5.5 03/18/2017 [facility] [place] Monocytes # 0.6 0.0 - 0.8 03/18/2017 [facility] HEMATOLOGY Eosinophils 5.4 0.0 - 4.0 03/18/2017 [facility] [place] Segs-Bands # 2.4 1.5 - 8.1 03/18/2017 [facility] HEMATOLOGY Basophils 0.3 0.0 - 1.0 03/18/2017 [facility] [place] Eosinophils # 0.3 0.0 - 0.5 03/18/2017 [facility] [place] Lymphocytes 40.8 20.0 - 40.0 03/18/2017 [facility] [place] Monocytes 10.3 2.0 - 12.0 03/18/2017 [facility] [place] Segs 43.2 45.0 - 75.0 03/18/2017 [facility] [place] MPV 10.3 7.4 - 10.4 03/18/2017 [facility] [place] RDW 18.2 11.5 - 14.5 03/18/2017 [facility] [place] MCHC 33.7 32.0 - 36.0 03/18/2017 [facility] [place] Platelet 223 133 - 450 03/18/2017 [facility] HEMATOLOGY Hgb 11.0 12.0 - 16.0 03/18/2017 [facility] HEMATOLOGY MCV 80.5 80.0 - 98.0 03/18/2017 [facility] HEMATOLOGY Hct 32.7 36.0 - 48.0 03/18/2017 [facility] HEMATOLOGY RBC 4.06 4.20 - 5.40 03/18/2017 [facility] HEMATOLOGY WBC 5.6 3.7 - 10.4 03/18/2017 [facility] HEMATOLOGY MCH 27.1 27.0 - 31.0 03/18/2017 [facility] CHEM PANEL eGFR 152 03/17/2017 Result Comment: The eGFR is calculated using the CKD-EPI formula. In most young, healthy individuals the eGFR will be >90 mL/min/1.73m2. The eGFR declines with age. An eGFR of 60-89 may be normal in some populations, particularly the elderly, for whom the CKD-EPI formula has not been extensively validated. Use of the eGFR is not recommended in the following populations:

Individuals with unstable creatinine concentrations, including patients and those with serious co-morbid conditions.

Patients with extremes in muscle mass or diet.

The data above are obtained from the National Kidney Disease Education Program (NKDEP) which additionally recommends that when the eGFR is used in patients with extremes of body mass index for purposes of drug dosing, the eGFR should be multiplied by the estimated BMI. [facility] CHEM PANEL Sodium Lvl 138 135 - 145 03/17/2017 [facility] CHEM PANEL Creatinine Lvl 0.24 0.50 - 1.40 03/17/2017 [facility] CHEM PANEL Potassium Lvl 3.9 3.5 - 5.1 03/17/2017 [facility] CHEM PANEL CO2 23 24 - 32 03/17/2017 [facility] CHEM PANEL Chloride Lvl 107 95 - 109 03/17/2017 [facility] CHEM PANEL AGAP 11.9 10.0 - 20.0 03/17/2017 [facility] CHEM PANEL Calcium Lvl 8.6 8.5 - 10.5 03/17/2017 [facility] CHEM PANEL Glucose Lvl 201 70 - 99 03/17/2017 [facility] CHEM PANEL BUN 10 7 - 22 03/17/2017 [facility] HEMATOLOGY Basophils 0.4 0.0 - 1.0 03/17/2017 [facility] HEMATOLOGY Segs-Bands # 1.7 1.5 - 8.1 03/17/2017 [facility] HEMATOLOGY Lymphocytes # 2.4 1.0 - 5.5 03/17/2017 [facility] HEMATOLOGY Monocytes # 0.4 0.0 - 0.8 03/17/2017 [facility] HEMATOLOGY Eosinophils # 0.3 0.0 - 0.5 03/17/2017 [facility] HEMATOLOGY Monocytes 8.9 2.0 - 12.0 03/17/2017 [facility] HEMATOLOGY Eosinophils 6.3 0.0 - 4.0 03/17/2017 [facility] HEMATOLOGY Lymphocytes 49.7 20.0 - 40.0 03/17/2017 [facility] HEMATOLOGY Segs 34.7 45.0 - 75.0 03/17/2017 [facility] HEMATOLOGY WBC 4.9 3.7 - 10.4 03/17/2017 [facility] HEMATOLOGY MCH 27.1 27.0 - 31.0 03/17/2017 [facility] HEMATOLOGY MCV 81.7 80.0 - 98.0 03/17/2017 [facility] HEMATOLOGY RBC 4.01 4.20 - 5.40 03/17/2017 [facility] HEMATOLOGY Hct 32.8 36.0 - 48.0 03/17/2017 [facility] HEMATOLOGY Hgb 10.9 12.0 - 16.0 03/17/2017 [facility] HEMATOLOGY MPV 9.9 7.4 - 10.4 03/17/2017 [facility] HEMATOLOGY Platelet 208 133 - 450 03/17/2017 [facility] HEMATOLOGY MCHC 33.2 32.0 - 36.0 03/17/2017 [facility] HEMATOLOGY RDW 18.1 11.5 - 14.5 03/17/2017 [facility] HEMATOLOGY RDW 17.8 11.5 - 14.5 03/16/2017 [facility] HEMATOLOGY Platelet 211 133 - 450 03/16/2017 [facility] HEMATOLOGY MPV 10.1 7.4 - 10.4 03/16/2017 [facility] HEMATOLOGY Hgb 11.3 12.0 - 16.0 03/16/2017 [facility] HEMATOLOGY Hct 34.3 36.0 - 48.0 03/16/2017 [facility] HEMATOLOGY MCV 81.4 80.0 - 98.0 03/16/2017 [facility] HEMATOLOGY MCH 26.9 27.0 - 31.0 03/16/2017 [facility] HEMATOLOGY WBC 4.7 3.7 - 10.4 03/16/2017 [facility] HEMATOLOGY MCHC 33.0 32.0 - 36.0 03/16/2017 [facility] HEMATOLOGY RBC 4.21 4.20 - 5.40 03/16/2017 [facility] HEMATOLOGY Lymphocytes # 2.0 1.0 - 5.5 03/16/2017 [facility] HEMATOLOGY Monocytes # 0.3 0.0 - 0.8 03/16/2017 [facility] HEMATOLOGY Eosinophils 4.5 0.0 - 4.0 03/16/2017 [facility] HEMATOLOGY Monocytes 6.9 2.0 - 12.0 03/16/2017 [facility] HEMATOLOGY Basophils 0.6 0.0 - 1.0 03/16/2017 [facility] [place] Segs-Bands # 2.1 1.5 - 8.1 03/16/2017 [facility] HEMATOLOGY Segs 44.8 45.0 - 75.0 03/16/2017 [facility] [place] Lymphocytes 43.2 20.0 - 40.0 03/16/2017 [facility] [place] Eosinophils # 0.2 0.0 - 0.5 03/16/2017 [facility] PARATHYROID PROFILE Ca Ion WB 1.14 1.05 - 1.25 03/16/2017 [facility] PARATHYROID PROFILE Ca Norm WB 1.10 1.05 - 1.25 03/16/2017 [facility] CHEM PANEL eGFR 178 03/16/2017 Result Comment: The eGFR is calculated using the CKD-EPI formula. In most young, healthy individuals the eGFR will be >90 mL/min/1.73m2. The eGFR declines with age. An eGFR of 60-89 may be normal in some populations, particularly the elderly, for whom the CKD-EPI formula has not been extensively validated. Use of the eGFR is not recommended in the following populations:

Individuals with unstable creatinine concentrations, including patients and those with serious co-morbid conditions.

Patients with extremes in muscle mass or diet.

The data above are obtained from the National Kidney Disease Education Program (NKDEP) which additionally recommends that when the eGFR is used in patients with extremes of body mass index for purposes of drug dosing, the eGFR should be multiplied by the estimated BMI. [facility] CHEM PANEL Potassium Lvl 2.9 3.5 - 5.1 03/16/2017 Result Comment: Critical Result(s) called to Jm Curtis at 03/16/2017 09:43 byHA. Read back OK. [facility] CHEM PANEL Sodium Lvl 141 135 - 145 03/16/2017 [facility] CHEM PANEL Glucose Lvl 165 70 - 99 03/16/2017 [facility] CHEM PANEL Creatinine Lvl <0.15 0.50 - 1.40 03/16/2017 [facility] CHEM PANEL BUN 8 7 - 22 03/16/2017 [facility] CHEM PANEL Chloride Lvl 111 95 - 109 03/16/2017 [facility] CHEM PANEL Calcium Lvl 6.8 8.5 - 10.5 03/16/2017 [facility] CHEM PANEL AGAP 9.9 10.0 - 20.0 03/16/2017 [facility] CHEM PANEL CO2 23 24 - 32 03/16/2017 [facility] CHEM PANEL Lipase Lvl 361 73 - 393 03/14/2017 [facility] CHEM PANEL Magnesium Lvl 1.8 1.8 - 2.4 03/12/2017 [facility] CHEM PANEL Phosphorus 3.3 2.5 - 4.5 03/12/2017 [facility] CHEM PANEL Magnesium Lvl 2.2 1.8 - 2.4 03/11/2017 [facility] CHEM PANEL Phosphorus 2.9 2.5 - 4.5 03/11/2017 [facility] CHEM PANEL Magnesium Lvl 1.3 1.8 - 2.4 03/11/2017 [facility] CHEM PANEL Phosphorus 3.3 2.5 - 4.5 03/10/2017 [facility] SPECIAL CHEMISTRY Hgb A1C 11.5 <=5.6 % 03/10/2017 [facility] CHEM PANEL Ketone Quantitative 0.86 <=0.27 mmol/L 03/10/2017 [facility] CHEM PANEL Ketone Quantitative 0.30 <=0.27 mmol/L 03/10/2017 [facility] CHEM PANEL Ketone Quantitative 2.16 <=0.27 mmol/L 03/10/2017 [facility] SPECIAL CHEMISTRY Hgb A1C 11.6 <=5.6 % 03/10/2017 [facility] BACTERIAL - SEROLOGY MRSA by PCR Negative (03/10/17 1:00 AM) 03/10/2017 [facility] CHEM PANEL Lactic Acid Lvl 1.5 0.5 - 2.2 03/10/2017 [facility] DRUG SCREEN UDS Note See Note (03/09/17 10:23 PM) 03/10/2017 [facility] DRUG SCREEN U Phencyc Scr Negative *NA* (03/09/17 10:23 PM) Negative 03/10/2017 [facility] DRUG SCREEN U Cocaine Scr Negative *NA* (03/09/17 10:23 PM) Negative 03/10/2017 [facility] DRUG SCREEN U Opiate Scr Positive *ABN* (03/09/17 10:23 PM) Negative 03/10/2017 [facility] DRUG SCREEN U Cannab Scr Negative *NA* (03/09/17 10:23 PM) Negative 03/10/2017 [facility] DRUG SCREEN U Amph Scr Negative *NA* (03/09/17 10:23 PM) Negative 03/10/2017 [facility] DRUG SCREEN U Benzodia Scr Negative *NA* (03/09/17 10:23 PM) Negative 03/10/2017 [facility] DRUG SCREEN U Kristen Scr Negative *NA* (03/09/17 10:23 PM) Negative 03/10/2017 [facility] ENDOCRINOLOGY S Preg Negative *NA* (03/09/17 10:23 PM) Negative 03/10/2017 [facility] URINE AND STOOL UA Urobilinogen <=1.0 mg/dL 0.1 - 1.0 03/10/2017 [facility] URINE AND STOOL UA Turbidity Marked *ABN* (03/09/17 10:23 PM) Clear 03/10/2017 [facility] URINE AND STOOL UA Color Yellow *NA* (03/09/17 10:23 PM) Yellow 03/10/2017 [facility] URINE AND STOOL UA Glucose 150 mg/dL Negative mg/dL 03/10/2017 [facility] URINE AND STOOL UA Protein 100 mg/dL Negative mg/dL 03/10/2017 [facility] URINE AND STOOL UA Ketones 80 mg/dL Negative mg/dL 03/10/2017 [facility] URINE AND STOOL UA pH 6.0 5.0 - 8.0 03/10/2017 [facility] URINE AND STOOL UA Spec Grav 1.008 <=1.030 03/10/2017 [facility] URINE AND STOOL UA Leuk Est Large *ABN* (03/09/17 10:23 PM) Negative 03/10/2017 [facility] URINE AND STOOL UA Nitrite Negative (03/09/17 10:23 PM) Negative 03/10/2017 [facility] URINE AND STOOL UA Sq Epi Many /LPF Few /LPF 03/10/2017 [facility] URINE AND STOOL UA Blood Moderate *ABN* (03/09/17 10:23 PM) Negative 03/10/2017 [facility] URINE AND STOOL UA Bili Negative *NA* (03/09/17 10:23 PM) Negative 03/10/2017 [facility] URINE AND STOOL UA [place] Yeast Many /HPF None Seen /HPF 03/10/2017 [facility] URINE AND STOOL UA Hyal Cast 3 0 - 2 03/10/2017 [facility] URINE AND STOOL UA WBC >182 0 - 5 03/10/2017 [facility] URINE AND STOOL UA Mucus Few /LPF None Seen /LPF 03/10/2017 [facility] URINE AND STOOL UA Bacteria Occasional /HPF None Seen /HPF 03/10/2017 [facility] CARDIAC ENZYMES CK MB 3.1 0.5 - 3.6 03/10/2017 [facility] CARDIAC ENZYMES Total CK 53 12 - 191 03/10/2017 [facility] CARDIAC ENZYMES Troponin-I <0.02 0.00 - 0.40 03/10/2017 [facility] CARDIAC ENZYMES CK MB Index 5.8 0.0 - 2.5 03/10/2017 [facility] CHEM PANEL Lipase Lvl 320 73 - 393 03/10/2017 [facility] CHEM PANEL Albumin Lvl 3.7 3.5 - 5.0 03/10/2017 [facility] CHEM PANEL Total Protein 9.6 6.4 - 8.4 03/10/2017 [facility] CHEM PANEL B/C Ratio 44 6 - 25 03/10/2017 [facility] CHEM PANEL Globulin 5.9 2.7 - 4.2 03/10/2017 [facility] CHEM PANEL AST 45 0 - 37 03/10/2017 [facility] CHEM PANEL ALT 34 0 - 65 03/10/2017 [facility] CHEM PANEL Bili Total 0.8 0.2 - 1.3 03/10/2017 [facility] CHEM PANEL Alk Phos 184 39 - 136 03/10/2017 [facility] CHEM PANEL A/G Ratio 0.6 0.7 - 1.6 03/10/2017 [facility] CHEM PANEL Lipase Lvl 264 73 - 393 12/29/2016 [facility] CHEM PANEL eGFR 178 12/29/2016 Result Comment: The eGFR is calculated using the CKD-EPI formula. In most young, healthy individuals the eGFR will be >90 mL/min/1.73m2. The eGFR declines with age. An eGFR of 60-89 may be normal in some populations, particularly the elderly, for whom the CKD-EPI formula has not been extensively validated. Use of the eGFR is not recommended in the following populations:

Individuals with unstable creatinine concentrations, including patients and those with serious co-morbid conditions.

Patients with extremes in muscle mass or diet.

The data above are obtained from the National Kidney Disease Education Program (NKDEP) which additionally recommends that when the eGFR is used in patients with extremes of body mass index for purposes of drug dosing, the eGFR should be multiplied by the estimated BMI. [facility] CHEM PANEL Globulin 3.7 2.7 - 4.2 12/29/2016 [facility] CHEM PANEL AST 18 0 - 37 12/29/2016 [facility] CHEM PANEL A/G Ratio 0.5 0.7 - 1.6 12/29/2016 [facility] CHEM PANEL Alk Phos 134 39 - 136 12/29/2016 [facility] CHEM PANEL ALT 12 0 - 65 12/29/2016 [facility] CHEM PANEL Bili Total 1.0 0.2 - 1.3 12/29/2016 [facility] CHEM PANEL Total Protein 5.6 6.4 - 8.4 12/29/2016 [facility] CHEM PANEL Albumin Lvl 1.9 3.5 - 5.0 12/29/2016 [facility] CHEM PANEL Sodium Lvl 140 135 - 145 12/29/2016 [facility] CHEM PANEL Creatinine Lvl <0.15 0.50 - 1.40 12/29/2016 [facility] CHEM PANEL BUN 4 7 - 22 12/29/2016 [facility] CHEM PANEL Potassium Lvl 3.2 3.5 - 5.1 12/29/2016 [facility] CHEM PANEL Chloride Lvl 103 95 - 109 12/29/2016 [facility] CHEM PANEL CO2 23 24 - 32 12/29/2016 [facility] CHEM PANEL Glucose Lvl 151 70 - 99 12/29/2016 [facility] CHEM PANEL AGAP 17.2 10.0 - 20.0 12/29/2016 [facility] CHEM PANEL B/C Ratio See Note 4 (12/29/16 4:07 AM) 6 - 25 12/29/2016 Result Comment: can not calculate b/c ratio due to creatinine <0.15 [facility] CHEM PANEL Calcium Lvl 7.8 8.5 - 10.5 12/29/2016 [facility] CHEM PANEL Amylase Lvl 33 25 - 115 12/29/2016 [facility] HEMATOLOGY Eosinophils # 0.1 0.0 - 0.5 12/29/2016 [facility] HEMATOLOGY Basophils 0.2 0.0 - 1.0 12/29/2016 [facility] [place] Lymphocytes # 1.4 1.0 - 5.5 12/29/2016 [facility] [place] Segs-Bands # 3.5 1.5 - 8.1 12/29/2016 [facility] [place] Monocytes # 0.7 0.0 - 0.8 12/29/2016 [facility] [place] Eosinophils 1.7 0.0 - 4.0 12/29/2016 [facility] [place] Lymphocytes 24.3 20.0 - 40.0 12/29/2016 [facility] [place] Segs 62.2 45.0 - 75.0 12/29/2016 [facility] [place] Monocytes 11.6 2.0 - 12.0 12/29/2016 [facility] [place] WBC 5.7 3.7 - 10.4 12/29/2016 [facility] [place] Hgb 8.9 12.0 - 16.0 12/29/2016 [facility] [place] Hct 26.9 36.0 - 48.0 12/29/2016 [facility] [place] RBC 3.25 4.20 - 5.40 12/29/2016 [facility] [place] MCV 82.8 80.0 - 98.0 12/29/2016 [facility] [place] Platelet 138 133 - 450 12/29/2016 [facility] [place] MPV 10.9 7.4 - 10.4 12/29/2016 [facility] [place] MCH 27.3 27.0 - 31.0 12/29/2016 [facility] [place] RDW 14.2 11.5 - 14.5 12/29/2016 [facility] [place] MCHC 33.0 32.0 - 36.0 12/29/2016 [facility] SPECIAL CHEMISTRY Hgb A1C 9.6 <=5.6 % 12/29/2016 [facility] CHEM PANEL Phosphorus 3.0 2.5 - 4.5 12/28/2016 [facility] CHEM PANEL Magnesium Lvl 1.2 1.8 - 2.4 12/28/2016 [facility] CHEM PANEL eGFR 159 12/28/2016 Result Comment: The eGFR is calculated using the CKD-EPI formula. In most young, healthy individuals the eGFR will be >90 mL/min/1.73m2. The eGFR declines with age. An eGFR of 60-89 may be normal in some populations, particularly the elderly, for whom the CKD-EPI formula has not been extensively validated. Use of the eGFR is not recommended in the following populations:

Individuals with unstable creatinine concentrations, including patients and those with serious co-morbid conditions.

Patients with extremes in muscle mass or diet.

The data above are obtained from the National Kidney Disease Education Program (NKDEP) which additionally recommends that when the eGFR is used in patients with extremes of body mass index for purposes of drug dosing, the eGFR should be multiplied by the estimated BMI. [facility] CHEM PANEL Creatinine Lvl 0.21 0.50 - 1.40 12/28/2016 [facility] CHEM PANEL BUN 4 7 - 22 12/28/2016 [facility] CHEM PANEL Glucose Lvl 151 70 - 99 12/28/2016 [facility] CHEM PANEL CO2 23 24 - 32 12/28/2016 [facility] CHEM PANEL Chloride Lvl 102 95 - 109 12/28/2016 [facility] CHEM PANEL Potassium Lvl 3.7 3.5 - 5.1 12/28/2016 [facility] CHEM PANEL Sodium Lvl 135 135 - 145 12/28/2016 [facility] CHEM PANEL Calcium Lvl 8.3 8.5 - 10.5 12/28/2016 [facility] CHEM PANEL AGAP 13.7 10.0 - 20.0 12/28/2016 [facility] [place] Platelet 158 133 - 450 12/28/2016 [facility] [place] MPV 10.8 7.4 - 10.4 12/28/2016 [facility] [place] RBC 3.88 4.20 - 5.40 12/28/2016 [facility] [place] WBC 7.4 3.7 - 10.4 12/28/2016 [facility] [place] Hgb 10.6 12.0 - 16.0 12/28/2016 [facility] [place] MCH 27.4 27.0 - 31.0 12/28/2016 [facility] [place] MCV 82.3 80.0 - 98.0 12/28/2016 [facility] [place] Hct 31.9 36.0 - 48.0 12/28/2016 [facility] [place] RDW 14.2 11.5 - 14.5 12/28/2016 [facility] [place] MCHC 33.2 32.0 - 36.0 12/28/2016 [facility] HEMATOLOGY Basophils 0.1 0.0 - 1.0 12/28/2016 [facility] [place] Monocytes # 0.8 0.0 - 0.8 12/28/2016 [facility] [place] Eosinophils # 0.1 0.0 - 0.5 12/28/2016 [facility] HEMATOLOGY Segs-Bands # 5.1 1.5 - 8.1 12/28/2016 [facility] HEMATOLOGY Lymphocytes # 1.3 1.0 - 5.5 12/28/2016 [facility] HEMATOLOGY Eosinophils 1.0 0.0 - 4.0 12/28/2016 [facility] HEMATOLOGY Monocytes 11.3 2.0 - 12.0 12/28/2016 [facility] HEMATOLOGY Segs 69.6 45.0 - 75.0 12/28/2016 [facility] HEMATOLOGY Lymphocytes 18.0 20.0 - 40.0 12/28/2016 [facility] CHEM PANEL Magnesium Lvl 2.0 1.8 - 2.4 12/27/2016 [facility] ELECTROLYTES Potassium Lvl 4.4 3.5 - 5.1 12/27/2016 [facility] CARDIAC ENZYMES Troponin-I <0.02 0.00 - 0.40 12/27/2016 [facility] CARDIAC ENZYMES Total CK 20 12 - 191 12/27/2016 [facility] CARDIAC ENZYMES Troponin-I <0.02 0.00 - 0.40 12/27/2016 [facility] CARDIAC ENZYMES Total CK 21 12 - 191 12/27/2016 [facility] CHEM PANEL Phosphorus 3.2 2.5 - 4.5 12/27/2016 [facility] CHEM PANEL Magnesium Lvl 1.4 1.8 - 2.4 12/27/2016 [facility] CHEM PANEL eGFR 178 12/27/2016 Result Comment: The eGFR is calculated using the CKD-EPI formula. In most young, healthy individuals the eGFR will be >90 mL/min/1.73m2. The eGFR declines with age. An eGFR of 60-89 may be normal in some populations, particularly the elderly, for whom the CKD-EPI formula has not been extensively validated. Use of the eGFR is not recommended in the following populations:

Individuals with unstable creatinine concentrations, including patients and those with serious co-morbid conditions.

Patients with extremes in muscle mass or diet.

The data above are obtained from the National Kidney Disease Education Program (NKDEP) which additionally recommends that when the eGFR is used in patients with extremes of body mass index for purposes of drug dosing, the eGFR should be multiplied by the estimated BMI. [facility] CHEM PANEL BUN 6 7 - 22 12/27/2016 [facility] CHEM PANEL Glucose Lvl 130 70 - 99 12/27/2016 [facility] CHEM PANEL CO2 25 24 - 32 12/27/2016 [facility] CHEM PANEL Chloride Lvl 103 95 - 109 12/27/2016 [facility] CHEM PANEL Creatinine Lvl 0.15 0.50 - 1.40 12/27/2016 [facility] CHEM PANEL Sodium Lvl 138 135 - 145 12/27/2016 [facility] CHEM PANEL AST 19 0 - 37 12/27/2016 [facility] CHEM PANEL Bili Total 0.5 0.2 - 1.3 12/27/2016 [facility] CHEM PANEL Alk Phos 145 39 - 136 12/27/2016 [facility] CHEM PANEL Total Protein 6.2 6.4 - 8.4 12/27/2016 [facility] CHEM PANEL B/C Ratio 40 6 - 25 12/27/2016 [facility] CHEM PANEL Calcium Lvl 7.8 8.5 - 10.5 12/27/2016 [facility] CHEM PANEL AGAP 13.1 10.0 - 20.0 12/27/2016 [facility] CHEM PANEL Globulin 3.9 2.7 - 4.2 12/27/2016 [facility] CHEM PANEL ALT 14 0 - 65 12/27/2016 [facility] CHEM PANEL Albumin Lvl 2.3 3.5 - 5.0 12/27/2016 [facility] CHEM PANEL A/G Ratio 0.6 0.7 - 1.6 12/27/2016 [facility] CHEM PANEL Lipase Lvl 419 73 - 393 12/27/2016 [facility] CHEM PANEL Lactic Acid Lvl 1.0 0.5 - 2.2 12/27/2016 [facility] CHEM PANEL Ketone Quantitative 1.04 <=0.27 mmol/L 12/27/2016 [facility] HEMATOLOGY WBC 5.8 3.7 - 10.4 12/27/2016 [facility] HEMATOLOGY RBC 3.65 4.20 - 5.40 12/27/2016 [facility] HEMATOLOGY MCH 27.4 27.0 - 31.0 12/27/2016 [facility] HEMATOLOGY MCHC 34.1 32.0 - 36.0 12/27/2016 [facility] HEMATOLOGY Hct 29.4 36.0 - 48.0 12/27/2016 [facility] HEMATOLOGY MCV 80.5 80.0 - 98.0 12/27/2016 [facility] HEMATOLOGY Hgb 10.0 12.0 - 16.0 12/27/2016 [facility] HEMATOLOGY MPV 11.3 7.4 - 10.4 12/27/2016 [facility] HEMATOLOGY RDW 14.2 11.5 - 14.5 12/27/2016 [facility] HEMATOLOGY Platelet 166 133 - 450 12/27/2016 [facility] HEMATOLOGY INR 1.15 0.85 - 1.17 12/27/2016 [facility] HEMATOLOGY PT 14.9 12.0 - 14.7 12/27/2016 [facility] HEMATOLOGY PTT 28.7 22.9 - 35.8 12/27/2016 [facility] HEMATOLOGY Eosinophils # 0.1 0.0 - 0.5 12/27/2016 [facility] HEMATOLOGY Monocytes # 0.6 0.0 - 0.8 12/27/2016 [facility] HEMATOLOGY Eosinophils 1.7 0.0 - 4.0 12/27/2016 [facility] HEMATOLOGY Lymphocytes 21.2 20.0 - 40.0 12/27/2016 [facility] HEMATOLOGY Monocytes 10.6 2.0 - 12.0 12/27/2016 [facility] HEMATOLOGY Segs 66.4 45.0 - 75.0 12/27/2016 [facility] HEMATOLOGY Lymphocytes # 1.2 1.0 - 5.5 12/27/2016 [facility] HEMATOLOGY Segs-Bands # 3.9 1.5 - 8.1 12/27/2016 [facility] HEMATOLOGY Basophils 0.1 0.0 - 1.0 12/27/2016 [facility] BACTERIAL - SEROLOGY MRSA by PCR Negative (12/27/16 3:17 AM) 12/27/2016 [facility] URINE AND STOOL UA Hyph Yeast Occasional *ABN* (12/27/16 3:17 AM) None Seen 12/27/2016 [facility] URINE AND STOOL UA [place] Yeast Moderate /HPF None Seen /HPF 12/27/2016 [facility] URINE AND STOOL UA WBC >182 0 - 5 12/27/2016 [facility] URINE AND STOOL UA Sq Epi Occasional /LPF Few /LPF 12/27/2016 [facility] URINE AND STOOL UA Bacteria Few /HPF None Seen /HPF 12/27/2016 [facility] URINE AND STOOL UA RBC >182 0 - 2 12/27/2016 [facility] URINE AND STOOL UA Mucus Few /LPF None Seen /LPF 12/27/2016 [facility] URINE AND STOOL UA Turbidity Marked *ABN* (12/27/16 3:17 AM) Clear 12/27/2016 [facility] URINE AND STOOL UA pH 5.0 5.0 - 8.0 12/27/2016 [facility] URINE AND STOOL UA Spec Grav 1.010 <=1.030 12/27/2016 [facility] URINE AND STOOL UA Glucose Negative mg/dL Negative mg/dL 12/27/2016 [facility] URINE AND STOOL UA Protein 30 mg/dL Negative mg/dL 12/27/2016 [facility] URINE AND STOOL UA Color Yellow *NA* (12/27/16 3:17 AM) Yellow 12/27/2016 [facility] URINE AND STOOL UA Urobilinogen <=1.0 mg/dL 0.1 - 1.0 12/27/2016 [facility] URINE AND STOOL UA Ketones Negative mg/dL Negative mg/dL 12/27/2016 [facility] URINE AND STOOL UA Blood Large *ABN* (12/27/16 3:17 AM) Negative 12/27/2016 [facility] URINE AND STOOL UA Bili Negative *NA* (12/27/16 3:17 AM) Negative 12/27/2016 [facility] URINE AND STOOL UA Leuk Est Large *ABN* (12/27/16 3:17 AM) Negative 12/27/2016 [facility] URINE AND STOOL UA Nitrite Negative (12/27/16 3:17 AM) Negative 12/27/2016 [facility] CHEM PANEL Bili Indirect 0.7 0.0 - 1.0 09/21/2016 [facility] CHEM PANEL Globulin 5.2 2.7 - 4.2 09/21/2016 [facility] CHEM PANEL A/G Ratio 0.4 0.7 - 1.6 09/21/2016 [facility] CHEM PANEL Bili Direct 0.2 0.0 - 0.3 09/21/2016 [facility] CHEM PANEL Albumin Lvl 2.2 3.5 - 5.0 09/21/2016 [facility] CHEM PANEL ALT 63 0 - 65 09/21/2016 [facility] CHEM PANEL Bili Total 0.9 0.2 - 1.3 09/21/2016 [facility] CHEM PANEL AST 39 0 - 37 09/21/2016 [facility] CHEM PANEL Alk Phos 239 39 - 136 09/21/2016 [facility] CHEM PANEL Total Protein 7.4 6.4 - 8.4 09/21/2016 [facility] CHEM PANEL Magnesium Lvl 1.5 1.8 - 2.4 09/21/2016 [facility] CHEM PANEL Glucose Lvl 91 70 - 99 09/21/2016 [facility] CHEM PANEL BUN 5 7 - 22 09/21/2016 [facility] CHEM PANEL Potassium Lvl 3.6 3.5 - 5.1 09/21/2016 [facility] CHEM PANEL Sodium Lvl 133 135 - 145 09/21/2016 [facility] CHEM PANEL Creatinine Lvl 0.18 0.50 - 1.40 09/21/2016 [facility] CHEM PANEL Chloride Lvl 98 95 - 109 09/21/2016 [facility] CHEM PANEL CO2 26 24 - 32 09/21/2016 [facility] CHEM PANEL Calcium Lvl 8.3 8.5 - 10.5 09/21/2016 [facility] CHEM PANEL AGAP 12.6 10.0 - 20.0 09/21/2016 [facility] CHEM PANEL eGFR 169 09/21/2016 Result Comment: The eGFR is calculated using the CKD-EPI formula. In most young, healthy individuals the eGFR will be >90 mL/min/1.73m2. The eGFR declines with age. An eGFR of 60-89 may be normal in some populations, particularly the elderly, for whom the CKD-EPI formula has not been extensively validated. Use of the eGFR is not recommended in the following populations:

Individuals with unstable creatinine concentrations, including patients and those with serious co-morbid conditions.

Patients with extremes in muscle mass or diet.

The data above are obtained from the National Kidney Disease Education Program (NKDEP) which additionally recommends that when the eGFR is used in patients with extremes of body mass index for purposes of drug dosing, the eGFR should be multiplied by the estimated BMI. [facility] HEMATOLOGY Platelet 199 133 - 450 09/21/2016 [facility] HEMATOLOGY RDW 15.1 11.5 - 14.5 09/21/2016 [facility] HEMATOLOGY MPV 10.5 7.4 - 10.4 09/21/2016 [facility] HEMATOLOGY Hgb 10.9 12.0 - 16.0 09/21/2016 [facility] HEMATOLOGY MCV 86.0 80.0 - 98.0 09/21/2016 [facility] HEMATOLOGY Hct 32.5 36.0 - 48.0 09/21/2016 [facility] [place] MCHC 33.6 32.0 - 36.0 09/21/2016 [facility] [place] MCH 28.9 27.0 - 31.0 09/21/2016 [facility] [place] RBC 3.78 4.20 - 5.40 09/21/2016 [facility] [place] WBC 6.0 3.7 - 10.4 09/21/2016 [facility] HEMATOLOGY Eosinophils # 0.2 0.0 - 0.5 09/21/2016 [facility] HEMATOLOGY Lymphocytes # 1.3 1.0 - 5.5 09/21/2016 [facility] HEMATOLOGY Segs-Bands # 3.7 1.5 - 8.1 09/21/2016 [facility] [place] Monocytes # 0.8 0.0 - 0.8 09/21/2016 [facility] HEMATOLOGY Monocytes 12.7 2.0 - 12.0 09/21/2016 [facility] HEMATOLOGY Eosinophils 3.4 0.0 - 4.0 09/21/2016 [facility] HEMATOLOGY Basophils 0.6 0.0 - 1.0 09/21/2016 [facility] HEMATOLOGY Segs 61.5 45.0 - 75.0 09/21/2016 [facility] [place] Lymphocytes 21.8 20.0 - 40.0 09/21/2016 [facility] CHEM PANEL Lipase Lvl 267 73 - 393 09/20/2016 [facility] CHEM PANEL Amylase Lvl 59 25 - 115 09/20/2016 [facility] CHEM PANEL eGFR 158 09/20/2016 Result Comment: The eGFR is calculated using the CKD-EPI formula. In most young, healthy individuals the eGFR will be >90 mL/min/1.73m2. The eGFR declines with age. An eGFR of 60-89 may be normal in some populations, particularly the elderly, for whom the CKD-EPI formula has not been extensively validated. Use of the eGFR is not recommended in the following populations:

Individuals with unstable creatinine concentrations, including patients and those with serious co-morbid conditions.

Patients with extremes in muscle mass or diet.

The data above are obtained from the National Kidney Disease Education Program (NKDEP) which additionally recommends that when the eGFR is used in patients with extremes of body mass index for purposes of drug dosing, the eGFR should be multiplied by the estimated BMI. [facility] CHEM PANEL Bili Total 0.7 0.2 - 1.3 09/20/2016 [facility] CHEM PANEL AGAP 14.7 10.0 - 20.0 09/20/2016 [facility] CHEM PANEL Calcium Lvl 8.0 8.5 - 10.5 09/20/2016 [facility] CHEM PANEL B/C Ratio 18 6 - 25 09/20/2016 [facility] CHEM PANEL Total Protein 7.3 6.4 - 8.4 09/20/2016 [facility] CHEM PANEL A/G Ratio 0.4 0.7 - 1.6 09/20/2016 [facility] CHEM PANEL Globulin 5.1 2.7 - 4.2 09/20/2016 [facility] CHEM PANEL Albumin Lvl 2.2 3.5 - 5.0 09/20/2016 [facility] CHEM PANEL ALT 73 0 - 65 09/20/2016 [facility] CHEM PANEL Alk Phos 232 39 - 136 09/20/2016 [facility] CHEM PANEL AST 53 0 - 37 09/20/2016 [facility] CHEM PANEL Glucose Lvl 98 70 - 99 09/20/2016 [facility] CHEM PANEL Potassium Lvl 2.7 3.5 - 5.1 09/20/2016 Result Comment: Critical Result(s) called to colin sosa at 09/20/2016 11:01 by robert. Read back OK. [facility] CHEM PANEL CO2 25 24 - 32 09/20/2016 [facility] CHEM PANEL Creatinine Lvl 0.22 0.50 - 1.40 09/20/2016 [facility] CHEM PANEL Chloride Lvl 93 95 - 109 09/20/2016 [facility] CHEM PANEL Sodium Lvl 130 135 - 145 09/20/2016 [facility] CHEM PANEL BUN 4 7 - 22 09/20/2016 [facility] HEMATOLOGY Segs-Bands # 5.9 1.5 - 8.1 09/20/2016 [facility] HEMATOLOGY Basophils 0.4 0.0 - 1.0 09/20/2016 [facility] HEMATOLOGY Eosinophils 2.5 0.0 - 4.0 09/20/2016 [facility] HEMATOLOGY Segs 71.1 45.0 - 75.0 09/20/2016 [facility] HEMATOLOGY Monocytes 11.5 2.0 - 12.0 09/20/2016 [facility] HEMATOLOGY Lymphocytes 14.5 20.0 - 40.0 09/20/2016 [facility] HEMATOLOGY Eosinophils # 0.2 0.0 - 0.5 09/20/2016 [facility] HEMATOLOGY Lymphocytes # 1.2 1.0 - 5.5 09/20/2016 [facility] HEMATOLOGY Monocytes # 1.0 0.0 - 0.8 09/20/2016 [facility] HEMATOLOGY RDW 15.3 11.5 - 14.5 09/20/2016 [facility] HEMATOLOGY MPV 10.2 7.4 - 10.4 09/20/2016 [facility] HEMATOLOGY Platelet 222 133 - 450 09/20/2016 [facility] HEMATOLOGY Hct 32.4 36.0 - 48.0 09/20/2016 [facility] HEMATOLOGY MCHC 33.7 32.0 - 36.0 09/20/2016 [facility] HEMATOLOGY MCV 85.1 80.0 - 98.0 09/20/2016 [facility] [place] MCH 28.7 27.0 - 31.0 09/20/2016 [facility] HEMATOLOGY Hgb 10.9 12.0 - 16.0 09/20/2016 [facility] HEMATOLOGY RBC 3.81 4.20 - 5.40 09/20/2016 [facility] HEMATOLOGY WBC 8.3 3.7 - 10.4 09/20/2016 [facility] CHEM PANEL Lipase Lvl 331 73 - 393 09/18/2016 [facility] CHEM PANEL eGFR 179 09/18/2016 Result Comment: The eGFR is calculated using the CKD-EPI formula. In most young, healthy individuals the eGFR will be >90 mL/min/1.73m2. The eGFR declines with age. An eGFR of 60-89 may be normal in some populations, particularly the elderly, for whom the CKD-EPI formula has not been extensively validated. Use of the eGFR is not recommended in the following populations:

Individuals with unstable creatinine concentrations, including patients and those with serious co-morbid conditions.

Patients with extremes in muscle mass or diet.

The data above are obtained from the National Kidney Disease Education Program (NKDEP) which additionally recommends that when the eGFR is used in patients with extremes of body mass index for purposes of drug dosing, the eGFR should be multiplied by the estimated BMI. [facility] CHEM PANEL B/C Ratio See Note (09/18/16 5:53 AM) 6 - 25 09/18/2016 [facility] CHEM PANEL Albumin Lvl 2.3 3.5 - 5.0 09/18/2016 [facility] CHEM PANEL Total Protein 6.8 6.4 - 8.4 09/18/2016 [facility] CHEM PANEL Globulin 4.5 2.7 - 4.2 09/18/2016 [facility] CHEM PANEL Calcium Lvl 8.1 8.5 - 10.5 09/18/2016 [facility] CHEM PANEL Bili Total 0.3 0.2 - 1.3 09/18/2016 [facility] CHEM PANEL Alk Phos 213 39 - 136 09/18/2016 [facility] CHEM PANEL AST 60 0 - 37 09/18/2016 [facility] CHEM PANEL A/G Ratio 0.5 0.7 - 1.6 09/18/2016 [facility] CHEM PANEL ALT 60 0 - 65 09/18/2016 [facility] CHEM PANEL Potassium Lvl 3.4 3.5 - 5.1 09/18/2016 [facility] CHEM PANEL Sodium Lvl 136 135 - 145 09/18/2016 [facility] CHEM PANEL AGAP 11.4 10.0 - 20.0 09/18/2016 [facility] CHEM PANEL CO2 27 24 - 32 09/18/2016 [facility] CHEM PANEL Glucose Lvl 63 70 - 99 09/18/2016 [facility] CHEM PANEL Chloride Lvl 101 95 - 109 09/18/2016 [facility] CHEM PANEL Creatinine Lvl <0.15 0.50 - 1.40 09/18/2016 [facility] CHEM PANEL BUN 8 7 - 22 09/18/2016 [facility] HEMATOLOGY Basophils 0.5 0.0 - 1.0 09/18/2016 [facility] HEMATOLOGY Lymphocytes # 0.9 1.0 - 5.5 09/18/2016 [facility] HEMATOLOGY Eosinophils # 0.3 0.0 - 0.5 09/18/2016 [facility] HEMATOLOGY Segs-Bands # 3.1 1.5 - 8.1 09/18/2016 [facility] HEMATOLOGY Monocytes # 0.5 0.0 - 0.8 09/18/2016 [facility] HEMATOLOGY Monocytes 9.7 2.0 - 12.0 09/18/2016 [facility] HEMATOLOGY Eosinophils 7.0 0.0 - 4.0 09/18/2016 [facility] HEMATOLOGY Segs 64.1 45.0 - 75.0 09/18/2016 [facility] HEMATOLOGY Lymphocytes 18.7 20.0 - 40.0 09/18/2016 [facility] HEMATOLOGY MCH 29.5 27.0 - 31.0 09/18/2016 [facility] HEMATOLOGY Platelet 224 133 - 450 09/18/2016 [facility] HEMATOLOGY MCHC 34.0 32.0 - 36.0 09/18/2016 [facility] HEMATOLOGY MPV 9.9 7.4 - 10.4 09/18/2016 [facility] HEMATOLOGY RDW 15.0 11.5 - 14.5 09/18/2016 [facility] HEMATOLOGY Hgb 10.7 12.0 - 16.0 09/18/2016 [facility] HEMATOLOGY Hct 31.5 36.0 - 48.0 09/18/2016 [facility] HEMATOLOGY MCV 86.9 80.0 - 98.0 09/18/2016 [facility] HEMATOLOGY RBC 3.63 4.20 - 5.40 09/18/2016 [facility] HEMATOLOGY WBC 4.9 3.7 - 10.4 09/18/2016 [facility] CHEM PANEL Lipase Lvl 307 73 - 393 09/17/2016 [facility] CHEM PANEL B/C Ratio 32 6 - 25 09/17/2016 [facility] CHEM PANEL Amylase Lvl 49 25 - 115 09/17/2016 [facility] CHEM PANEL Amylase Lvl 42 25 - 115 09/16/2016 [facility] CHEM PANEL Magnesium Lvl 1.4 1.8 - 2.4 09/15/2016 [facility] CHEM PANEL Magnesium Lvl 1.5 1.8 - 2.4 09/13/2016 [facility] ENDOCRINOLOGY S Preg Negative *NA* (09/13/16 3:00 AM) Negative 09/13/2016 [facility] HEMATOLOGY PTT 24.8 22.9 - 35.8 09/12/2016 [facility] HEMATOLOGY PT 14.0 12.0 - 14.7 09/12/2016 [facility] HEMATOLOGY INR 1.06 0.85 - 1.17 09/12/2016 [facility] URINE AND STOOL UA Bili Negative *NA* (09/11/16 2:33 PM) Negative 09/11/2016 [facility] URINE AND STOOL UA Spec Grav 1.014 <=1.030 09/11/2016 [facility] URINE AND STOOL UA Protein Negative mg/dL Negative mg/dL 09/11/2016 [facility] URINE AND STOOL UA pH 8.0 5.0 - 8.0 09/11/2016 [facility] URINE AND STOOL UA Blood Negative (09/11/16 2:33 PM) Negative 09/11/2016 [facility] URINE AND STOOL UA Glucose Negative mg/dL Negative mg/dL 09/11/2016 [facility] URINE AND STOOL UA Ketones Negative mg/dL Negative mg/dL 09/11/2016 [facility] URINE AND STOOL UA WBC 1 0 - 5 09/11/2016 [facility] URINE AND STOOL UA Sq Epi Occasional /LPF Few /LPF 09/11/2016 [facility] URINE AND STOOL UA Nitrite Negative (09/11/16 2:33 PM) Negative 09/11/2016 [facility] URINE AND STOOL UA Leuk Est Negative (09/11/16 2:33 PM) Negative 09/11/2016 [facility] URINE AND STOOL UA RBC 1 0 - 2 09/11/2016 [facility] URINE AND STOOL UA Amorph Ivory Occasional /HPF None Seen /HPF 09/11/2016 [facility] URINE AND STOOL UA Urobilinogen <=1.0 mg/dL 0.1 - 1.0 09/11/2016 [facility] URINE AND STOOL UA Turbidity Slight *ABN* (09/11/16 2:33 PM) Clear 09/11/2016 [facility] URINE AND STOOL UA Color Yellow *NA* (09/11/16 2:33 PM) Yellow 09/11/2016 [facility] CHEM PANEL Phosphorus 3.3 2.5 - 4.5 09/10/2016 [facility] HEMATOLOGY Basophils # 0.1 0.0 - 0.2 09/10/2016 [facility] CHEM PANEL BUN 9 7 - 22 09/07/2016 [facility] CHEM PANEL Glucose Lvl 100 70 - 99 09/07/2016 [facility] CHEM PANEL eGFR 161 09/07/2016 Result Comment: The eGFR is calculated using the CKD-EPI formula. In most young, healthy individuals the eGFR will be >90 mL/min/1.73m2. The eGFR declines with age. An eGFR of 60-89 may be normal in some populations, particularly the elderly, for whom the CKD-EPI formula has not been extensively validated. Use of the eGFR is not recommended in the following populations:

Individuals with unstable creatinine concentrations, including patients and those with serious co-morbid conditions.

Patients with extremes in muscle mass or diet.

The data above are obtained from the National Kidney Disease Education Program (NKDEP) which additionally recommends that when the eGFR is used in patients with extremes of body mass index for purposes of drug dosing, the eGFR should be multiplied by the estimated BMI. [facility] CHEM PANEL AGAP 9.8 10.0 - 20.0 09/07/2016 [facility] CHEM PANEL Calcium Lvl 8.6 8.5 - 10.5 09/07/2016 [facility] CHEM PANEL CO2 28 24 - 32 09/07/2016 [facility] CHEM PANEL Chloride Lvl 103 95 - 109 09/07/2016 [facility] CHEM PANEL Sodium Lvl 137 135 - 145 09/07/2016 [facility] CHEM PANEL Creatinine Lvl 0.21 0.50 - 1.40 09/07/2016 [facility] CHEM PANEL Potassium Lvl 3.8 3.5 - 5.1 09/07/2016 [facility] CHEM PANEL Magnesium Lvl 1.9 1.8 - 2.4 09/07/2016 [facility] CHEM PANEL Magnesium Lvl 1.7 1.8 - 2.4 09/06/2016 [facility] CHEM PANEL Lipase Lvl 246 73 - 393 09/06/2016 [facility] ELECTROLYTES AGAP 14.8 10.0 - 20.0 09/06/2016 [facility] ELECTROLYTES eGFR 169 09/06/2016 Result Comment: The eGFR is calculated using the CKD-EPI formula. In most young, healthy individuals the eGFR will be >90 mL/min/1.73m2. The eGFR declines with age. An eGFR of 60-89 may be normal in some populations, particularly the elderly, for whom the CKD-EPI formula has not been extensively validated. Use of the eGFR is not recommended in the following populations:

Individuals with unstable creatinine concentrations, including patients and those with serious co-morbid conditions.

Patients with extremes in muscle mass or diet.

The data above are obtained from the National Kidney Disease Education Program (NKDEP) which additionally recommends that when the eGFR is used in patients with extremes of body mass index for purposes of drug dosing, the eGFR should be multiplied by the estimated BMI. [facility] ELECTROLYTES Calcium Lvl 9.6 8.5 - 10.5 09/06/2016 [facility] ELECTROLYTES Glucose Lvl 84 70 - 99 09/06/2016 [facility] ELECTROLYTES BUN 11 7 - 22 09/06/2016 [facility] ELECTROLYTES Sodium Lvl 138 135 - 145 09/06/2016 [facility] ELECTROLYTES Creatinine Lvl 0.18 0.50 - 1.40 09/06/2016 [facility] ELECTROLYTES Potassium Lvl 3.8 3.5 - 5.1 09/06/2016 [facility] ELECTROLYTES Chloride Lvl 100 95 - 109 09/06/2016 [facility] ELECTROLYTES CO2 27 24 - 32 09/06/2016 [facility] HEMATOLOGY WBC 4.7 3.7 - 10.4 09/06/2016 [facility] HEMATOLOGY RBC 3.60 4.20 - 5.40 09/06/2016 [facility] HEMATOLOGY MCHC 33.8 32.0 - 36.0 09/06/2016 [facility] HEMATOLOGY MCH 29.7 27.0 - 31.0 09/06/2016 [facility] HEMATOLOGY MCV 87.9 80.0 - 98.0 09/06/2016 [facility] HEMATOLOGY Hct 31.7 36.0 - 48.0 09/06/2016 [facility] HEMATOLOGY Hgb 10.7 12.0 - 16.0 09/06/2016 [facility] HEMATOLOGY MPV 11.4 7.4 - 10.4 09/06/2016 [facility] HEMATOLOGY Platelet 262 133 - 450 09/06/2016 [facility] HEMATOLOGY RDW 16.4 11.5 - 14.5 09/06/2016 [facility] HEMATOLOGY Eosinophils # 0.3 0.0 - 0.5 09/06/2016 [facility] HEMATOLOGY Monocytes # 0.4 0.0 - 0.8 09/06/2016 [facility] HEMATOLOGY Eosinophils 7.4 0.0 - 4.0 09/06/2016 [facility] HEMATOLOGY Monocytes 9.2 2.0 - 12.0 09/06/2016 [facility] HEMATOLOGY Basophils 0.9 0.0 - 1.0 09/06/2016 [facility] HEMATOLOGY Lymphocytes 31.3 20.0 - 40.0 09/06/2016 [facility] HEMATOLOGY Segs 51.2 45.0 - 75.0 09/06/2016 [facility] HEMATOLOGY Lymphocytes # 1.5 1.0 - 5.5 09/06/2016 [facility] HEMATOLOGY Segs-Bands # 2.4 1.5 - 8.1 09/06/2016 [facility] CHEM PANEL Phosphorus 3.3 2.5 - 4.5 09/05/2016 [facility] CHEM PANEL Magnesium Lvl 1.8 1.8 - 2.4 09/05/2016 [facility] CHEM PANEL Creatinine Lvl 0.19 0.50 - 1.40 09/05/2016 [facility] CHEM PANEL BUN 10 7 - 22 09/05/2016 [facility] CHEM PANEL Glucose Lvl 101 70 - 99 09/05/2016 [facility] CHEM PANEL AGAP 12.0 10.0 - 20.0 09/05/2016 [facility] CHEM PANEL Calcium Lvl 9.2 8.5 - 10.5 09/05/2016 [facility] CHEM PANEL eGFR 166 09/05/2016 Result Comment: The eGFR is calculated using the CKD-EPI formula. In most young, healthy individuals the eGFR will be >90 mL/min/1.73m2. The eGFR declines with age. An eGFR of 60-89 may be normal in some populations, particularly the elderly, for whom the CKD-EPI formula has not been extensively validated. Use of the eGFR is not recommended in the following populations:

Individuals with unstable creatinine concentrations, including patients and those with serious co-morbid conditions.

Patients with extremes in muscle mass or diet.

The data above are obtained from the National Kidney Disease Education Program (NKDEP) which additionally recommends that when the eGFR is used in patients with extremes of body mass index for purposes of drug dosing, the eGFR should be multiplied by the estimated BMI. [facility] CHEM PANEL Potassium Lvl 4.0 3.5 - 5.1 09/05/2016 [facility] CHEM PANEL Sodium Lvl 136 135 - 145 09/05/2016 [facility] CHEM PANEL CO2 28 24 - 32 09/05/2016 [facility] CHEM PANEL Chloride Lvl 100 95 - 109 09/05/2016 [facility] CHEM PANEL Phosphorus 3.0 2.5 - 4.5 09/04/2016 [facility] CHEM PANEL Phosphorus 2.4 2.5 - 4.5 09/02/2016 [facility] HEMATOLOGY RBC 3.13 4.20 - 5.40 09/02/2016 [facility] HEMATOLOGY WBC 4.2 3.7 - 10.4 09/02/2016 [facility] HEMATOLOGY Hct 28.0 36.0 - 48.0 09/02/2016 [facility] HEMATOLOGY Hgb 9.3 12.0 - 16.0 09/02/2016 [facility] HEMATOLOGY MCH 29.9 27.0 - 31.0 09/02/2016 [facility] HEMATOLOGY Platelet 163 133 - 450 09/02/2016 [facility] HEMATOLOGY RDW 16.6 11.5 - 14.5 09/02/2016 [facility] HEMATOLOGY MCHC 33.4 32.0 - 36.0 09/02/2016 [facility] HEMATOLOGY MPV 12.0 7.4 - 10.4 09/02/2016 [facility] HEMATOLOGY MCV 89.5 80.0 - 98.0 09/02/2016 [facility] HEMATOLOGY Monocytes # 0.5 0.0 - 0.8 09/02/2016 [facility] HEMATOLOGY Eosinophils # 0.2 0.0 - 0.5 09/02/2016 [facility] HEMATOLOGY Lymphocytes # 1.0 1.0 - 5.5 09/02/2016 [facility] HEMATOLOGY Segs 58.4 45.0 - 75.0 09/02/2016 [facility] HEMATOLOGY Lymphocytes 25.1 20.0 - 40.0 09/02/2016 [facility] HEMATOLOGY Segs-Bands # 2.4 1.5 - 8.1 09/02/2016 [facility] HEMATOLOGY Basophils 0.9 0.0 - 1.0 09/02/2016 [facility] HEMATOLOGY Eosinophils 4.6 0.0 - 4.0 09/02/2016 [facility] HEMATOLOGY Monocytes 11.0 2.0 - 12.0 09/02/2016 [facility] TOXICOLOGY Vanco Tr TND 0830 09/01/2016 [facility] TOXICOLOGY Vanco Tr 15.4 09/01/2016 [facility] CHEM PANEL Total Protein 7.0 6.4 - 8.4 08/31/2016 [facility] CHEM PANEL ALT 17 0 - 65 08/31/2016 [facility] CHEM PANEL Albumin Lvl 2.1 3.5 - 5.0 08/31/2016 [facility] CHEM PANEL A/G Ratio 0.4 0.7 - 1.6 08/31/2016 [facility] CHEM PANEL Globulin 4.9 2.7 - 4.2 08/31/2016 [facility] CHEM PANEL B/C Ratio 28 6 - 25 08/31/2016 [facility] CHEM PANEL Alk Phos 177 39 - 136 08/31/2016 [facility] CHEM PANEL AST 17 0 - 37 08/31/2016 [facility] CHEM PANEL Bili Total 0.3 0.2 - 1.3 08/31/2016 [facility] HEMATOLOGY Platelet 141 133 - 450 08/31/2016 [facility] HEMATOLOGY RDW 16.4 11.5 - 14.5 08/31/2016 [facility] HEMATOLOGY MPV 11.8 7.4 - 10.4 08/31/2016 [facility] HEMATOLOGY Hct 27.7 36.0 - 48.0 08/31/2016 [facility] HEMATOLOGY Hgb 9.1 12.0 - 16.0 08/31/2016 [facility] HEMATOLOGY MCV 88.8 80.0 - 98.0 08/31/2016 [facility] HEMATOLOGY RBC 3.12 4.20 - 5.40 08/31/2016 [facility] HEMATOLOGY MCH 29.3 27.0 - 31.0 08/31/2016 [facility] HEMATOLOGY MCHC 33.0 32.0 - 36.0 08/31/2016 [facility] HEMATOLOGY WBC 4.7 3.7 - 10.4 08/31/2016 [facility] HEMATOLOGY Monocytes # 0.4 0.0 - 0.8 08/31/2016 [facility] HEMATOLOGY Eosinophils # 0.1 0.0 - 0.5 08/31/2016 [facility] HEMATOLOGY Lymphocytes # 0.9 1.0 - 5.5 08/31/2016 [facility] HEMATOLOGY Segs-Bands # 3.2 1.5 - 8.1 08/31/2016 [facility] HEMATOLOGY Eosinophils 2.9 0.0 - 4.0 08/31/2016 [facility] HEMATOLOGY Monocytes 9.6 2.0 - 12.0 08/31/2016 [facility] HEMATOLOGY Basophils 0.7 0.0 - 1.0 08/31/2016 [facility] HEMATOLOGY Lymphocytes 19.4 20.0 - 40.0 08/31/2016 [facility] HEMATOLOGY Segs 67.4 45.0 - 75.0 08/31/2016 [facility] TOXICOLOGY Vanco Tr TND 1630 08/28/2016 [facility] TOXICOLOGY Vanco Tr 15.4 08/28/2016 [facility] MOLECULAR DIAGNOSTIC C difficile DNA Negative (08/28/16 10:45 AM) Negative 08/28/2016 [facility] URINE CHEM U Chloride 96 08/26/2016 [facility] URINE CHEM U Potassium 13.8 08/26/2016 [facility] URINE CHEM U Sodium 83 08/26/2016 [facility] ELECTROLYTES Potassium WB 3.0 3.5 - 5.1 08/25/2016 Result Comment: CRITICAL RESULT CALLED TO ARPAN DOSS AT 08/25/2016 16:13 BY SXP. READ BACK OK. [facility] TOXICOLOGY Vanco Tr 16.8 08/25/2016 [facility] TOXICOLOGY Vanco Tr TND 0830 08/25/2016 [facility] TUMOR MARKERS CA 125 62.9 0.0 - 35.0 08/25/2016 [facility] URINE CHEM U Preg Negative (08/25/16 12:39 AM) Negative 08/25/2016 [facility] CHEM PANEL Albumin Lvl 2.7 3.5 - 5.0 08/24/2016 [facility] CHEM PANEL Alk Phos 202 39 - 136 08/24/2016 [facility] CHEM PANEL Bili Total 0.5 0.2 - 1.3 08/24/2016 [facility] CHEM PANEL Globulin 5.5 2.7 - 4.2 08/24/2016 [facility] CHEM PANEL A/G Ratio 0.5 0.7 - 1.6 08/24/2016 [facility] CHEM PANEL ALT 14 0 - 65 08/24/2016 [facility] CHEM PANEL AST 20 0 - 37 08/24/2016 [facility] CHEM PANEL Total Protein 8.2 6.4 - 8.4 08/24/2016 [facility] CHEM PANEL B/C Ratio 26 6 - 25 08/24/2016 [facility] HEMATOLOGY INR 1.26 0.85 - 1.17 08/24/2016 [facility] HEMATOLOGY PT 16.1 12.0 - 14.7 08/24/2016 [facility] HEMATOLOGY PTT 32.8 22.9 - 35.8 08/24/2016 [facility] CHEM PANEL eGFR 158 08/23/2016 Result Comment: The eGFR is calculated using the CKD-EPI formula. In most young, healthy individuals the eGFR will be >90 mL/min/1.73m2. The eGFR declines with age. An eGFR of 60-89 may be normal in some populations, particularly the elderly, for whom the CKD-EPI formula has not been extensively validated. Use of the eGFR is not recommended in the following populations:

Individuals with unstable creatinine concentrations, including patients and those with serious co-morbid conditions.

Patients with extremes in muscle mass or diet.

The data above are obtained from the National Kidney Disease Education Program (NKDEP) which additionally recommends that when the eGFR is used in patients with extremes of body mass index for purposes of drug dosing, the eGFR should be multiplied by the estimated BMI. [facility] CHEM PANEL Calcium Lvl 8.1 8.5 - 10.5 08/23/2016 [facility] CHEM PANEL CO2 32 24 - 32 08/23/2016 [facility] CHEM PANEL AGAP 8.7 10.0 - 20.0 08/23/2016 [facility] CHEM PANEL Sodium Lvl 141 135 - 145 08/23/2016 [facility] CHEM PANEL Chloride Lvl 103 95 - 109 08/23/2016 [facility] CHEM PANEL Potassium Lvl 2.7 3.5 - 5.1 08/23/2016 Result Comment: Critical Result(s) called to joaquín benitez at 08/23/2016 05:00 by lgb. Read back OK. [facility] CHEM PANEL Glucose Lvl 161 70 - 99 08/23/2016 [facility] CHEM PANEL BUN 6 7 - 22 08/23/2016 [facility] CHEM PANEL Creatinine Lvl 0.22 0.50 - 1.40 08/23/2016 [facility] CHEM PANEL Magnesium Lvl 1.5 1.8 - 2.4 08/23/2016 [facility] CHEM PANEL Phosphorus 1.9 2.5 - 4.5 08/23/2016 [facility] HEMATOLOGY MPV 10.7 7.4 - 10.4 08/23/2016 [facility] MCV 89.4 80.0 - 98.0 08/23/2016 [facility] Hgb 10.2 12.0 - 16.0 08/23/2016 [facility] HEMATOLOGY RBC 3.44 4.20 - 5.40 08/23/2016 [facility] HEMATOLOGY WBC 6.3 3.7 - 10.4 08/23/2016 [facility] HEMATOLOGY Hct 30.7 36.0 - 48.0 08/23/2016 [facility] HEMATOLOGY RDW 16.4 11.5 - 14.5 08/23/2016 [facility] MCHC 33.1 32.0 - 36.0 08/23/2016 [facility] MCH 29.6 27.0 - 31.0 08/23/2016 [facility] Platelet 263 133 - 450 08/23/2016 [facility] HEMATOLOGY Segs-Bands # 4.3 1.5 - 8.1 08/23/2016 [facility] HEMATOLOGY Lymphocytes # 1.2 1.0 - 5.5 08/23/2016 [facility] HEMATOLOGY Basophils 0.5 0.0 - 1.0 08/23/2016 [facility] HEMATOLOGY Eosinophils # 0.1 0.0 - 0.5 08/23/2016 [facility] HEMATOLOGY Monocytes # 0.6 0.0 - 0.8 08/23/2016 [facility] HEMATOLOGY Segs 68.4 45.0 - 75.0 08/23/2016 [facility] HEMATOLOGY Lymphocytes 19.1 20.0 - 40.0 08/23/2016 [facility] HEMATOLOGY Eosinophils 2.1 0.0 - 4.0 08/23/2016 [facility] HEMATOLOGY Monocytes 9.9 2.0 - 12.0 08/23/2016 [facility] ELECTROLYTES Potassium Lvl 2.5 3.5 - 5.1 08/22/2016 Result Comment: Critical Result(s) called to Edison Dahl at 08/22/2016 15:34 by ka. Read back OK. [facility] TOXICOLOGY Vanco Tr TND 10:00 08/22/2016 [facility] TOXICOLOGY Vanco Tr 14.0 08/22/2016 [facility] ELECTROLYTES Potassium Lvl 1.8 3.5 - 5.1 08/22/2016 Result Comment: Critical Result(s) called to Yonas Pompa at 08/22/2016 07:56 by TT. Read back OK. [facility] CHEM PANEL eGFR 166 08/22/2016 Result Comment: The eGFR is calculated using the CKD-EPI formula. In most young, healthy individuals the eGFR will be >90 mL/min/1.73m2. The eGFR declines with age. An eGFR of 60-89 may be normal in some populations, particularly the elderly, for whom the CKD-EPI formula has not been extensively validated. Use of the eGFR is not recommended in the following populations:

Individuals with unstable creatinine concentrations, including patients and those with serious co-morbid conditions.

Patients with extremes in muscle mass or diet.

The data above are obtained from the National Kidney Disease Education Program (NKDEP) which additionally recommends that when the eGFR is used in patients with extremes of body mass index for purposes of drug dosing, the eGFR should be multiplied by the estimated BMI. [facility] CHEM PANEL Globulin 5.1 2.7 - 4.2 08/22/2016 [facility] CHEM PANEL A/G Ratio 0.5 0.7 - 1.6 08/22/2016 [facility] CHEM PANEL Total Protein 7.7 6.4 - 8.4 08/22/2016 [facility] CHEM PANEL Albumin Lvl 2.6 3.5 - 5.0 08/22/2016 [facility] CHEM PANEL CO2 32 24 - 32 08/22/2016 [facility] CHEM PANEL Chloride Lvl 97 95 - 109 08/22/2016 [facility] CHEM PANEL Alk Phos 206 39 - 136 08/22/2016 [facility] CHEM PANEL AST 15 0 - 37 08/22/2016 [facility] CHEM PANEL Bili Total 0.5 0.2 - 1.3 08/22/2016 [facility] CHEM PANEL Calcium Lvl 8.1 8.5 - 10.5 08/22/2016 [facility] CHEM PANEL AGAP 10.8 10.0 - 20.0 08/22/2016 [facility] CHEM PANEL ALT 12 0 - 65 08/22/2016 [facility] CHEM PANEL B/C Ratio 26 6 - 25 08/22/2016 [facility] CHEM PANEL BUN 5 7 - 22 08/22/2016 [facility] CHEM PANEL Creatinine Lvl 0.19 0.50 - 1.40 08/22/2016 [facility] CHEM PANEL Sodium Lvl 138 135 - 145 08/22/2016 [facility] CHEM PANEL Glucose Lvl 189 70 - 99 08/22/2016 [facility] HEMATOLOGY Eosinophils # 0.1 0.0 - 0.5 08/22/2016 [facility] HEMATOLOGY Monocytes # 0.5 0.0 - 0.8 08/22/2016 [facility] HEMATOLOGY Lymphocytes 15.2 20.0 - 40.0 08/22/2016 [facility] HEMATOLOGY Segs 74.8 45.0 - 75.0 08/22/2016 [facility] HEMATOLOGY Basophils 0.5 0.0 - 1.0 08/22/2016 [facility] HEMATOLOGY Eosinophils 1.1 0.0 - 4.0 08/22/2016 [facility] HEMATOLOGY Monocytes 8.4 2.0 - 12.0 08/22/2016 [facility] HEMATOLOGY Lymphocytes # 1.0 1.0 - 5.5 08/22/2016 [facility] HEMATOLOGY Segs-Bands # 4.7 1.5 - 8.1 08/22/2016 [facility] HEMATOLOGY MCV 89.4 80.0 - 98.0 08/22/2016 [facility] HEMATOLOGY Hct 30.7 36.0 - 48.0 08/22/2016 [facility] HEMATOLOGY Hgb 10.3 12.0 - 16.0 08/22/2016 [facility] HEMATOLOGY RDW 16.5 11.5 - 14.5 08/22/2016 [facility] HEMATOLOGY MCHC 33.4 32.0 - 36.0 08/22/2016 [facility] HEMATOLOGY Platelet 282 133 - 450 08/22/2016 [facility] HEMATOLOGY MPV 10.4 7.4 - 10.4 08/22/2016 [facility] HEMATOLOGY RBC 3.43 4.20 - 5.40 08/22/2016 [facility] HEMATOLOGY WBC 6.3 3.7 - 10.4 08/22/2016 [facility] HEMATOLOGY MCH 29.9 27.0 - 31.0 08/22/2016 [facility] CARDIAC ENZYMES BNP 177 <=100 pg/mL 08/20/2016 [facility] TOXICOLOGY Vanco Tr TND 0900 08/20/2016 [facility] TOXICOLOGY Vanco Tr 12.6 08/20/2016 [facility] CHEM PANEL eGFR 179 08/20/2016 Result Comment: The eGFR is calculated using the CKD-EPI formula. In most young, healthy individuals the eGFR will be >90 mL/min/1.73m2. The eGFR declines with age. An eGFR of 60-89 may be normal in some populations, particularly the elderly, for whom the CKD-EPI formula has not been extensively validated. Use of the eGFR is not recommended in the following populations:

Individuals with unstable creatinine concentrations, including patients and those with serious co-morbid conditions.

Patients with extremes in muscle mass or diet.

The data above are obtained from the National Kidney Disease Education Program (NKDEP) which additionally recommends that when the eGFR is used in patients with extremes of body mass index for purposes of drug dosing, the eGFR should be multiplied by the estimated BMI. [facility] CHEM PANEL Sodium Lvl 138 135 - 145 08/20/2016 [facility] CHEM PANEL Creatinine Lvl <0.15 0.50 - 1.40 08/20/2016 [facility] CHEM PANEL A/G Ratio 0.6 0.7 - 1.6 08/20/2016 [facility] CHEM PANEL Alk Phos 300 39 - 136 08/20/2016 [facility] CHEM PANEL AST 15 0 - 37 08/20/2016 [facility] CHEM PANEL Bili Total 0.4 0.2 - 1.3 08/20/2016 [facility] CHEM PANEL ALT 12 0 - 65 08/20/2016 [facility] CHEM PANEL Total Protein 8.0 6.4 - 8.4 08/20/2016 [facility] CHEM PANEL Globulin 5.0 2.7 - 4.2 08/20/2016 [facility] CHEM PANEL Albumin Lvl 3.0 3.5 - 5.0 08/20/2016 [facility] CHEM PANEL B/C Ratio See Note 4 (08/20/16 5:50 AM) 6 - 25 08/20/2016 Result Comment: Unable to calculate due to Creatinine <0.15 on 08/20/2016 06:18 by Estuardo. [facility] CHEM PANEL Chloride Lvl 101 95 - 109 08/20/2016 [facility] CHEM PANEL Glucose Lvl 112 70 - 99 08/20/2016 [facility] CHEM PANEL BUN 5 7 - 22 08/20/2016 [facility] CHEM PANEL AGAP 13.5 10.0 - 20.0 08/20/2016 [facility] CHEM PANEL Calcium Lvl 8.6 8.5 - 10.5 08/20/2016 [facility] CHEM PANEL CO2 27 24 - 32 08/20/2016 [facility] HEMATOLOGY MPV 10.2 7.4 - 10.4 08/20/2016 [facility] HEMATOLOGY Platelet 322 133 - 450 08/20/2016 [facility] HEMATOLOGY RDW 16.8 11.5 - 14.5 08/20/2016 [facility] HEMATOLOGY MCHC 32.8 32.0 - 36.0 08/20/2016 [facility] HEMATOLOGY MCH 29.6 27.0 - 31.0 08/20/2016 [facility] HEMATOLOGY MCV 90.3 80.0 - 98.0 08/20/2016 [facility] HEMATOLOGY Hct 31.4 36.0 - 48.0 08/20/2016 [facility] HEMATOLOGY Hgb 10.3 12.0 - 16.0 08/20/2016 [facility] HEMATOLOGY RBC 3.48 4.20 - 5.40 08/20/2016 [facility] HEMATOLOGY WBC 4.8 3.7 - 10.4 08/20/2016 [facility] HEMATOLOGY Basophils 0.9 0.0 - 1.0 08/20/2016 [facility] HEMATOLOGY Eosinophils 2.2 0.0 - 4.0 08/20/2016 [facility] HEMATOLOGY Monocytes 10.3 2.0 - 12.0 08/20/2016 [facility] HEMATOLOGY Lymphocytes 24.0 20.0 - 40.0 08/20/2016 [facility] HEMATOLOGY Segs 62.6 45.0 - 75.0 08/20/2016 [facility] HEMATOLOGY Eosinophils # 0.1 0.0 - 0.5 08/20/2016 [facility] HEMATOLOGY Monocytes # 0.5 0.0 - 0.8 08/20/2016 [facility] HEMATOLOGY Lymphocytes # 1.1 1.0 - 5.5 08/20/2016 [facility] HEMATOLOGY Segs-Bands # 3.0 1.5 - 8.1 08/20/2016 [facility] IMMUNOLOGY Prealbumin 4.5 18.0 - 45.0 08/20/2016 [facility] CHEM PANEL Magnesium Lvl 1.7 1.8 - 2.4 08/20/2016 [facility] HEMATOLOGY INR 1.11 0.85 - 1.17 08/20/2016 [facility] HEMATOLOGY PT 14.5 12.0 - 14.7 08/20/2016 [facility] TOXICOLOGY Vanco Tr TND tbd 08/20/2016 [facility] TOXICOLOGY Vanco Tr 18.1 08/20/2016 [facility] CHEM PANEL B/C Ratio See Note (08/19/16 5:54 AM) 6 - 25 08/19/2016 [facility] CHEM PANEL AST 16 0 - 37 08/19/2016 [facility] CHEM PANEL ALT 12 0 - 65 08/19/2016 [facility] CHEM PANEL A/G Ratio 0.5 0.7 - 1.6 08/19/2016 [facility] CHEM PANEL Albumin Lvl 3.0 3.5 - 5.0 08/19/2016 [facility] CHEM PANEL Globulin 5.8 2.7 - 4.2 08/19/2016 [facility] CHEM PANEL Total Protein 8.8 6.4 - 8.4 08/19/2016 [facility] CHEM PANEL Alk Phos 358 39 - 136 08/19/2016 [facility] CHEM PANEL Bili Total 0.5 0.2 - 1.3 08/19/2016 [facility] CHEM PANEL Magnesium Lvl 1.8 1.8 - 2.4 08/19/2016 [facility] TOXICOLOGY Vanco Tr TND [id number] 08/17/2016 [facility] TOXICOLOGY Vanco Tr 9.4 08/17/2016 [facility] ANEMIA STUDY Ferritin Lvl 318 5 - 204 08/17/2016 [facility] CHEM PANEL Lipase Lvl 277 73 - 393 08/17/2016 [facility] CHEM PANEL eGFR 163 08/17/2016 Result Comment: The eGFR is calculated using the CKD-EPI formula. In most young, healthy individuals the eGFR will be >90 mL/min/1.73m2. The eGFR declines with age. An eGFR of 60-89 may be normal in some populations, particularly the elderly, for whom the CKD-EPI formula has not been extensively validated. Use of the eGFR is not recommended in the following populations:

Individuals with unstable creatinine concentrations, including patients and those with serious co-morbid conditions.

Patients with extremes in muscle mass or diet.

The data above are obtained from the National Kidney Disease Education Program (NKDEP) which additionally recommends that when the eGFR is used in patients with extremes of body mass index for purposes of drug dosing, the eGFR should be multiplied by the estimated BMI. [facility] CHEM PANEL Glucose Lvl 87 70 - 99 08/17/2016 [facility] CHEM PANEL Creatinine Lvl 0.20 0.50 - 1.40 08/17/2016 [facility] CHEM PANEL BUN 7 7 - 22 08/17/2016 [facility] CHEM PANEL Sodium Lvl 136 135 - 145 08/17/2016 [facility] CHEM PANEL CO2 24 24 - 32 08/17/2016 [facility] CHEM PANEL Calcium Lvl 8.5 8.5 - 10.5 08/17/2016 [facility] CHEM PANEL Potassium Lvl 3.9 3.5 - 5.1 08/17/2016 [facility] CHEM PANEL Chloride Lvl 99 95 - 109 08/17/2016 [facility] CHEM PANEL AGAP 16.9 10.0 - 20.0 08/17/2016 [facility] CHEM PANEL Phosphorus 2.6 2.5 - 4.5 08/17/2016 [facility] CHEM PANEL Magnesium Lvl 1.9 1.8 - 2.4 08/17/2016 [facility] CHEM PANEL Albumin Lvl 3.2 3.5 - 5.0 08/17/2016 [facility] ELECTROLYTES CO2 29 24 - 32 08/17/2016 [facility] ELECTROLYTES Chloride Lvl 97 95 - 109 08/17/2016 [facility] ELECTROLYTES Calcium Lvl 9.3 8.5 - 10.5 08/17/2016 [facility] ELECTROLYTES eGFR 163 08/17/2016 Result Comment: The eGFR is calculated using the CKD-EPI formula. In most young, healthy individuals the eGFR will be >90 mL/min/1.73m2. The eGFR declines with age. An eGFR of 60-89 may be normal in some populations, particularly the elderly, for whom the CKD-EPI formula has not been extensively validated. Use of the eGFR is not recommended in the following populations:

Individuals with unstable creatinine concentrations, including patients and those with serious co-morbid conditions.

Patients with extremes in muscle mass or diet.

The data above are obtained from the National Kidney Disease Education Program (NKDEP) which additionally recommends that when the eGFR is used in patients with extremes of body mass index for purposes of drug dosing, the eGFR should be multiplied by the estimated BMI. [facility] ELECTROLYTES Creatinine Lvl 0.20 0.50 - 1.40 08/17/2016 [facility] ELECTROLYTES Glucose Lvl 90 70 - 99 08/17/2016 [facility] ELECTROLYTES BUN 8 7 - 22 08/17/2016 [facility] ELECTROLYTES Potassium Lvl 3.9 3.5 - 5.1 08/17/2016 [facility] ELECTROLYTES Sodium Lvl 134 135 - 145 08/17/2016 [facility] ELECTROLYTES AGAP 11.9 10.0 - 20.0 08/17/2016 [facility] MCHC 33.4 32.0 - 36.0 08/17/2016 [facility] MCH 30.1 27.0 - 31.0 08/17/2016 [facility] RDW 16.9 11.5 - 14.5 08/17/2016 [facility] RBC 3.19 4.20 - 5.40 08/17/2016 [facility] WBC 5.5 3.7 - 10.4 08/17/2016 [facility] MPV 11.6 7.4 - 10.4 08/17/2016 [facility] Platelet 283 133 - 450 08/17/2016 [facility] Hgb 9.6 12.0 - 16.0 08/17/2016 [facility] HEMATOLOGY MCV 89.9 80.0 - 98.0 08/17/2016 [facility] Hct 28.7 36.0 - 48.0 08/17/2016 [facility] HEMATOLOGY Basophils 0.7 0.0 - 1.0 08/17/2016 [facility] Segs 59.7 45.0 - 75.0 08/17/2016 [facility] HEMATOLOGY Eosinophils 3.5 0.0 - 4.0 08/17/2016 [facility] HEMATOLOGY Monocytes 9.6 2.0 - 12.0 08/17/2016 [facility] HEMATOLOGY Lymphocytes 26.5 20.0 - 40.0 08/17/2016 [facility] HEMATOLOGY Segs-Bands # 3.3 1.5 - 8.1 08/17/2016 [facility] HEMATOLOGY Eosinophils # 0.2 0.0 - 0.5 08/17/2016 [facility] HEMATOLOGY Monocytes # 0.5 0.0 - 0.8 08/17/2016 [facility] Lymphocytes # 1.5 1.0 - 5.5 08/17/2016 [facility] HEMATOLOGY PT 14.8 12.0 - 14.7 08/17/2016 [facility] HEMATOLOGY INR 1.14 0.85 - 1.17 08/17/2016 [facility] IMMUNOLOGY Prealbumin 5.3 18.0 - 45.0 08/17/2016 [facility] PARATHYROID PROFILE Ca Norm WB 1.20 1.05 - 1.25 08/17/2016 [facility] PARATHYROID PROFILE Ca Ion WB 1.19 1.05 - 1.25 08/17/2016 [facility] CHEM PANEL Magnesium Lvl 1.8 1.8 - 2.4 08/16/2016 [facility] CHEM PANEL Phosphorus 3.2 2.5 - 4.5 08/16/2016 [facility] CHEM PANEL eGFR 163 08/16/2016 Result Comment: The eGFR is calculated using the CKD-EPI formula. In most young, healthy individuals the eGFR will be >90 mL/min/1.73m2. The eGFR declines with age. An eGFR of 60-89 may be normal in some populations, particularly the elderly, for whom the CKD-EPI formula has not been extensively validated. Use of the eGFR is not recommended in the following populations:

Individuals with unstable creatinine concentrations, including patients and those with serious co-morbid conditions.

Patients with extremes in muscle mass or diet.

The data above are obtained from the National Kidney Disease Education Program (NKDEP) which additionally recommends that when the eGFR is used in patients with extremes of body mass index for purposes of drug dosing, the eGFR should be multiplied by the estimated BMI. [facility] CHEM PANEL AGAP 12.2 10.0 - 20.0 08/16/2016 [facility] CHEM PANEL CO2 28 24 - 32 08/16/2016 [facility] CHEM PANEL Calcium Lvl 9.2 8.5 - 10.5 08/16/2016 [facility] CHEM PANEL Chloride Lvl 98 95 - 109 08/16/2016 [facility] CHEM PANEL Potassium Lvl 3.2 3.5 - 5.1 08/16/2016 [facility] CHEM PANEL Sodium Lvl 135 135 - 145 08/16/2016 [facility] CHEM PANEL Glucose Lvl 130 70 - 99 08/16/2016 [facility] CHEM PANEL Creatinine Lvl 0.20 0.50 - 1.40 08/16/2016 [facility] CHEM PANEL BUN 9 7 - 22 08/16/2016 [facility] TOXICOLOGY Vanco Tr 5.2 08/16/2016 [facility] TOXICOLOGY Vanco Tr TND [id number] 08/16/2016 [facility] CHEM PANEL B/C Ratio 50 6 - 25 08/15/2016 [facility] CHEM PANEL Globulin 4.4 2.7 - 4.2 08/15/2016 [facility] CHEM PANEL A/G Ratio 0.9 0.7 - 1.6 08/15/2016 [facility] CHEM PANEL AST 57 0 - 37 08/15/2016 [facility] CHEM PANEL Bili Total 0.4 0.2 - 1.3 08/15/2016 [facility] CHEM PANEL Total Protein 8.2 6.4 - 8.4 08/15/2016 [facility] CHEM PANEL Albumin Lvl 3.8 3.5 - 5.0 08/15/2016 [facility] CHEM PANEL Alk Phos 666 39 - 136 08/15/2016 [facility] CHEM PANEL ALT 24 0 - 65 08/15/2016 [facility] CHEM PANEL Magnesium Lvl 1.8 1.8 - 2.4 08/15/2016 [facility] CHEM PANEL Phosphorus 1.9 2.5 - 4.5 08/15/2016 [facility] HEMATOLOGY Basophils # 0.0 0.0 - 0.2 08/15/2016 [facility] HEMATOLOGY Eosinophils # 0.3 0.0 - 0.5 08/15/2016 [facility] HEMATOLOGY Lymphocytes # 1.6 1.0 - 5.5 08/15/2016 [facility] HEMATOLOGY Monocytes # 0.7 0.0 - 0.8 08/15/2016 [facility] HEMATOLOGY Monocytes 9.9 2.0 - 12.0 08/15/2016 [facility] HEMATOLOGY Lymphocytes 22.0 20.0 - 40.0 08/15/2016 [facility] HEMATOLOGY Eosinophils 4.1 0.0 - 4.0 08/15/2016 [facility] HEMATOLOGY Segs-Bands # 4.6 1.5 - 8.1 08/15/2016 [facility] HEMATOLOGY Basophils 0.7 0.0 - 1.0 08/15/2016 [facility] Segs 63.3 45.0 - 75.0 08/15/2016 [facility] Plt Morph Normal (08/15/16 4:55 AM) 08/15/2016 [facility] RBC Morph Normal (08/15/16 4:55 AM) 08/15/2016 [facility] MPV 12.8 7.4 - 10.4 08/15/2016 [facility] RDW 16.9 11.5 - 14.5 08/15/2016 [facility] Platelet 261 133 - 450 08/15/2016 [facility] Hct 28.6 36.0 - 48.0 08/15/2016 [facility] MCV 91.0 80.0 - 98.0 08/15/2016 [facility] MCH 29.5 27.0 - 31.0 08/15/2016 [facility] MCHC 32.5 32.0 - 36.0 08/15/2016 [facility] Hgb 9.3 12.0 - 16.0 08/15/2016 [facility] RBC 3.14 4.20 - 5.40 08/15/2016 [facility] WBC 7.2 3.7 - 10.4 08/15/2016 [facility] PARATHYROID PROFILE Ca Norm WB 1.13 1.05 - 1.25 08/15/2016 [facility] PARATHYROID PROFILE Ca Ion WB 1.10 1.05 - 1.25 08/15/2016 [facility] MCV 89.0 80.0 - 98.0 08/14/2016 [facility] Hct 28.5 36.0 - 48.0 08/14/2016 [facility] Hgb 9.4 12.0 - 16.0 08/14/2016 [facility] RBC 3.21 4.20 - 5.40 08/14/2016 [facility] MCHC 32.9 32.0 - 36.0 08/14/2016 [facility] Platelet 261 133 - 450 08/14/2016 [facility] RDW 16.7 11.5 - 14.5 08/14/2016 [facility] MCH 29.3 27.0 - 31.0 08/14/2016 [facility] HEMATOLOGY WBC 7.1 3.7 - 10.4 08/14/2016 [facility] HEMATOLOGY MPV 12.1 7.4 - 10.4 08/14/2016 [facility] TOXICOLOGY Vanco Tr TND [id number] 08/14/2016 [facility] TOXICOLOGY Vanco Tr 2.7 08/14/2016 [facility] CHEM PANEL A/G Ratio 0.6 0.7 - 1.6 08/14/2016 [facility] CHEM PANEL B/C Ratio 40 6 - 25 08/14/2016 [facility] CHEM PANEL Globulin 4.9 2.7 - 4.2 08/14/2016 [facility] CHEM PANEL AST 27 0 - 37 08/14/2016 [facility] CHEM PANEL Total Protein 8.0 6.4 - 8.4 08/14/2016 [facility] CHEM PANEL ALT 19 0 - 65 08/14/2016 [facility] CHEM PANEL Albumin Lvl 3.1 3.5 - 5.0 08/14/2016 [facility] CHEM PANEL Bili Total 0.5 0.2 - 1.3 08/14/2016 [facility] CHEM PANEL Alk Phos 594 39 - 136 08/14/2016 [facility] PARATHYROID PROFILE Ca Norm WB 1.15 1.05 - 1.25 08/14/2016 [facility] PARATHYROID PROFILE Ca Ion WB 1.11 1.05 - 1.25 08/14/2016 [facility] CHEM PANEL Alk Phos 424 39 - 136 08/13/2016 [facility] CHEM PANEL Bili Total 0.7 0.2 - 1.3 08/13/2016 [facility] CHEM PANEL Total Protein 7.6 6.4 - 8.4 08/13/2016 [facility] CHEM PANEL B/C Ratio 40 6 - 25 08/13/2016 [facility] CHEM PANEL ALT 17 0 - 65 08/13/2016 [facility] CHEM PANEL AST 26 0 - 37 08/13/2016 [facility] CHEM PANEL Globulin 4.7 2.7 - 4.2 08/13/2016 [facility] CHEM PANEL A/G Ratio 0.6 0.7 - 1.6 08/13/2016 [facility] HEMATOLOGY Segs 74.5 45.0 - 75.0 08/11/2016 [facility] HEMATOLOGY Monocytes # 0.6 0.0 - 0.8 08/11/2016 [facility] HEMATOLOGY Lymphocytes # 1.0 1.0 - 5.5 08/11/2016 [facility] HEMATOLOGY Segs-Bands # 5.0 1.5 - 8.1 08/11/2016 [facility] HEMATOLOGY Basophils 0.7 0.0 - 1.0 08/11/2016 [facility] HEMATOLOGY Eosinophils 0.6 0.0 - 4.0 08/11/2016 [facility] HEMATOLOGY Monocytes 9.3 2.0 - 12.0 08/11/2016 [facility] HEMATOLOGY Lymphocytes 14.9 20.0 - 40.0 08/11/2016 [facility] HEMATOLOGY Basophils # 0.0 0.0 - 0.2 08/09/2016 [facility] HEMATOLOGY RBC Morph Normal (08/09/16 6:11 AM) 08/09/2016 [facility] HEMATOLOGY Plt Morph Normal (08/09/16 6:11 AM) 08/09/2016 [facility] Eosinophils # 0.1 0.0 - 0.5 08/09/2016 [facility] CHEM PANEL Lipase Lvl 760 73 - 393 08/08/2016 [facility] BODY FLUIDS Lipase BF >88312 08/07/2016 [facility] BODY FLUIDS Lipase BF Type Paracen (08/07/16 1:29 PM) 08/07/2016 [facility] HEMATOLOGY PT 17.2 12.0 - 14.7 08/07/2016 [facility] HEMATOLOGY INR 1.38 0.85 - 1.17 08/07/2016 [facility] PTT 33.6 22.9 - 35.8 08/07/2016 [facility] CHEM PANEL Lipase Lvl 716 73 - 393 08/07/2016 [facility] BODY FLUIDS Lipase BF >26378 08/06/2016 [facility] BODY FLUIDS Lipase BF Type OTHER (08/06/16 4:43 PM) 08/06/2016 [facility] BODY FLUIDS Amylase BF Cyst >25482 08/06/2016 Result Comment: [place] [id number] [facility] TUMOR MARKERS CEA 1.5 0.0 - 3.0 08/06/2016 [facility] CHEM PANEL Bili Direct 0.1 0.0 - 0.3 08/06/2016 [facility] IMMUNOLOGY Prealbumin 8.1 18.0 - 45.0 08/06/2016 [facility] LIPIDS Trig 47 <=149 mg/dL 08/06/2016 [facility] CHEM PANEL Bili Indirect 0.2 0.0 - 1.0 08/02/2016 [facility] CHEM PANEL Bili Direct 0.1 0.0 - 0.3 08/02/2016 [facility] CHEM PANEL Lactic Acid Lvl 1.1 0.5 - 2.2 08/02/2016 [facility] CHEM PANEL Bili Indirect 0.2 0.0 - 1.0 07/30/2016 [facility] CHEM PANEL Bili Direct 0.1 0.0 - 0.3 07/30/2016 [facility] IMMUNOLOGY Prealbumin 4.1 18.0 - 45.0 07/30/2016 [facility] LIPIDS Trig 46 <=149 mg/dL 07/30/2016 [facility] MOLECULAR DIAGNOSTIC C difficile DNA Negative (07/29/16 4:52 AM) Negative 07/29/2016 [facility] HEMATOLOGY Basophils # 0.1 0.0 - 0.2 07/27/2016 [facility] IMMUNOLOGY Hep Bs Ag Negative *NA* (07/26/16 5:43 AM) Negative 07/26/2016 [facility] Hep C Ab Negative *NA* (07/26/16 5:43 AM) 07/26/2016 [facility] Hep B Core IgM Negative *NA* (07/26/16 5:43 AM) Negative 07/26/2016 [facility] Hep A IgM Negative *NA* (07/26/16 5:43 AM) Negative 07/26/2016 [facility] URINE AND STOOL Micro? Performed *NA* (07/23/16 11:31 AM) 07/23/2016 [facility] URINE AND STOOL UA Urobilinogen <=1.0 0.1 - 1.0 07/23/2016 [facility] URINE AND STOOL UA pH 7.0 5.0 - 8.0 07/23/2016 [facility] [place] URINE AND STOOL UA Protein 100 mg/dL Negative mg/dL 07/23/2016 [facility] URINE AND STOOL UA Spec Grav 1.014 <=1.030 07/23/2016 [facility] URINE AND STOOL UA Turbidity Moderate *ABN* (07/23/16 11:31 AM) Clear 07/23/2016 [facility] URINE AND STOOL UA Color Yellow *NA* (07/23/16 11:31 AM) Yellow 07/23/2016 [facility] URINE AND STOOL UA Amorph Ivory Occasional /HPF None Seen /HPF 07/23/2016 [facility] URINE AND STOOL UA Sq Epi Occasional /LPF Few /LPF 07/23/2016 [facility] URINE AND STOOL UA WBC 1 0 - 5 07/23/2016 [facility] URINE AND STOOL UA RBC 20 0 - 2 07/23/2016 [facility] URINE AND STOOL UA Blood Small *ABN* (07/23/16 11:31 AM) Negative 07/23/2016 [facility] URINE AND STOOL UA Nitrite Negative (07/23/16 11:31 AM) Negative 07/23/2016 [facility] URINE AND STOOL UA Bili Negative *NA* (07/23/16 11:31 AM) Negative 07/23/2016 [facility] URINE AND STOOL UA Glucose 150 mg/dL Negative mg/dL 07/23/2016 [facility] URINE AND STOOL UA Ketones Negative mg/dL Negative mg/dL 07/23/2016 [facility] URINE AND STOOL UA Bacteria Occasional /HPF None Seen /HPF 07/23/2016 [facility] URINE AND STOOL UA Leuk Est Trace *ABN* (07/23/16 11:31 AM) Negative 07/23/2016 [facility] CHEM PANEL Bili Indirect 0.4 0.0 - 1.0 07/23/2016 [facility] HEMATOLOGY RBC Morph Normal (07/23/16 5:27 AM) 07/23/2016 [facility] HEMATOLOGY Plt Morph Normal (07/23/16 5:27 AM) 07/23/2016 [facility] LIPIDS Trig 74 <=149 mg/dL 07/23/2016 [facility] HEMATOLOGY Sed Rate 60 0 - 20 07/22/2016 [facility] HEMATOLOGY Sed Rate 52 0 - 20 07/21/2016 [facility] BODY FLUIDS LDH BF 940 07/19/2016 [facility] BODY FLUIDS LDH BF Type Ascites (07/19/16 9:01 AM) 07/19/2016 [facility] BODY FLUIDS WBC BF 188 07/19/2016 [facility] BODY FLUIDS RBC BF 300 07/19/2016 [facility] BODY FLUIDS CellCnt BF Type Ascites (07/19/16 9:01 AM) 07/19/2016 [facility] BODY FLUIDS Color BF Dark Yellow (07/19/16 9:01 AM) Colorless 07/19/2016 [facility] BODY FLUIDS Clarity BF Slight Cloudy (07/19/16 9:01 AM) Clear 07/19/2016 [facility] BODY FLUIDS Segs BF 43 07/19/2016 [facility] BODY FLUIDS Lymph BF 3 07/19/2016 [facility] BODY FLUIDS Macrophage BF 54 07/19/2016 [facility] BODY FLUIDS Albumin BF 2.2 07/19/2016 [facility] BODY FLUIDS Alb BF Type Ascites *NA* (07/19/16 9:01 AM) 07/19/2016 [facility] BLOOD BANK RESULTS Antibody Scrn Negative (07/12/16 11:29 AM) 07/12/2016 [facility] BLOOD BANK RESULTS ABO/Rh O POS 07/12/2016 [facility] BLOOD [facility] RESULTS RBC product Product available (07/12/16 11:12 AM) 07/12/2016 [facility] BLOOD BANK RESULTS RBC product Product available (07/12/16 10:15 AM) 07/12/2016 [facility] MOLECULAR DIAGNOSTIC C difficile DNA Negative (07/08/16 9:16 PM) Negative 07/09/2016 [facility] HEMATOLOGY Anisocyte 1+ *ABN* (07/08/16 11:40 AM) None Seen 07/08/2016 [facility] HEMATOLOGY PTT 31.6 22.9 - 35.8 07/06/2016 [facility] HEMATOLOGY PT 18.8 12.0 - 14.7 07/06/2016 [facility] HEMATOLOGY INR 1.54 0.85 - 1.17 07/06/2016 [facility] SPECIAL CHEMISTRY Hgb A1C 7.0 <=5.6 % 07/06/2016 [facility] CHEM PANEL Vitamin D, 25-OH, Total <13 30 - 100 07/05/2016 [facility] PARATHYROID PROFILE Ca Norm WB 0.96 1.05 - 1.25 07/05/2016 [facility] PARATHYROID PROFILE Ca Ion WB 0.97 1.05 - 1.25 07/05/2016 [facility] CHEM PANEL Lipase Lvl 630 73 - 393 07/05/2016 [facility] CHEM PANEL eGFR 163 07/05/2016 Result Comment: The eGFR is calculated using the CKD-EPI formula. In most young, healthy individuals the eGFR will be >90 mL/min/1.73m2. The eGFR declines with age. An eGFR of 60-89 may be normal in some populations, particularly the elderly, for whom the CKD-EPI formula has not been extensively validated. Use of the eGFR is not recommended in the following populations:

Individuals with unstable creatinine concentrations, including patients and those with serious co-morbid conditions.

Patients with extremes in muscle mass or diet.

The data above are obtained from the National Kidney Disease Education Program (NKDEP) which additionally recommends that when the eGFR is used in patients with extremes of body mass index for purposes of drug dosing, the eGFR should be multiplied by the estimated BMI. [facility] CHEM PANEL Bili Total 0.9 0.2 - 1.3 07/05/2016 [facility] CHEM PANEL Alk Phos 150 39 - 136 07/05/2016 [facility] CHEM PANEL AST 8 0 - 37 07/05/2016 [facility] CHEM PANEL Total Protein 4.2 6.4 - 8.4 07/05/2016 [facility] CHEM PANEL B/C Ratio 25 6 - 25 07/05/2016 [facility] CHEM PANEL ALT 7 0 - 65 07/05/2016 [facility] CHEM PANEL A/G Ratio 0.6 0.7 - 1.6 07/05/2016 [facility] CHEM PANEL Globulin 2.7 2.7 - 4.2 07/05/2016 [facility] CHEM PANEL Albumin Lvl 1.5 3.5 - 5.0 07/05/2016 [facility] CHEM PANEL Calcium Lvl 6.5 8.5 - 10.5 07/05/2016 Result Comment: Critical Result(s) called to ernesto isabel at 07/05/2016 05:43 by tl. Read back OK. [facility] CHEM PANEL AGAP 14.8 10.0 - 20.0 07/05/2016 [facility] CHEM PANEL CO2 29 24 - 32 07/05/2016 [facility] CHEM PANEL Chloride Lvl 97 95 - 109 07/05/2016 [facility] CHEM PANEL Potassium Lvl 2.8 3.5 - 5.1 07/05/2016 Result Comment: Critical Result(s) called to ernesto isabel at 07/05/2016 05:43 by tl. Read back OK. [facility] CHEM PANEL Sodium Lvl 138 135 - 145 07/05/2016 [facility] CHEM PANEL Creatinine Lvl 0.20 0.50 - 1.40 07/05/2016 [facility] CHEM PANEL BUN 5 7 - 22 07/05/2016 [facility] CHEM PANEL Glucose Lvl 228 70 - 99 07/05/2016 [facility] CHEM PANEL Phosphorus 2.9 2.5 - 4.5 07/05/2016 [facility] CHEM PANEL Magnesium Lvl 1.6 1.8 - 2.4 07/05/2016 [facility] HEMATOLOGY Hct 29.2 36.0 - 48.0 07/05/2016 [facility] HEMATOLOGY MCH 28.2 27.0 - 31.0 07/05/2016 [facility] HEMATOLOGY MCV 88.4 80.0 - 98.0 07/05/2016 [facility] HEMATOLOGY MCHC 31.8 32.0 - 36.0 07/05/2016 [facility] RDW 23.5 11.5 - 14.5 07/05/2016 [facility] [place] Platelet 169 133 - 450 07/05/2016 [facility] Hgb 9.3 12.0 - 16.0 07/05/2016 [facility] [place] WBC 7.3 3.7 - 10.4 07/05/2016 [facility] RBC 3.31 4.20 - 5.40 07/05/2016 [facility] [place] MPV 9.4 7.4 - 10.4 07/05/2016 [facility] Monocytes 7.7 2.0 - 12.0 07/05/2016 [facility] Lymphocytes 12.6 20.0 - 40.0 07/05/2016 [facility] [place] Segs 78.6 45.0 - 75.0 07/05/2016 [facility] [place] Segs-Bands # 5.7 1.5 - 8.1 07/05/2016 [facility] [place] Eosinophils # 0.1 0.0 - 0.5 07/05/2016 [facility] [place] Monocytes # 0.6 0.0 - 0.8 07/05/2016 [facility] [place] Lymphocytes # 0.9 1.0 - 5.5 07/05/2016 [facility] [place] Eosinophils 0.8 0.0 - 4.0 07/05/2016 [facility] [place] Basophils 0.3 0.0 - 1.0 07/05/2016 [facility] CHEM PANEL eGFR 179 07/03/2016 Result Comment: The eGFR is calculated using the CKD-EPI formula. In most young, healthy individuals the eGFR will be >90 mL/min/1.73m2. The eGFR declines with age. An eGFR of 60-89 may be normal in some populations, particularly the elderly, for whom the CKD-EPI formula has not been extensively validated. Use of the eGFR is not recommended in the following populations:

Individuals with unstable creatinine concentrations, including patients and those with serious co-morbid conditions.

Patients with extremes in muscle mass or diet.

The data above are obtained from the National Kidney Disease Education Program (NKDEP) which additionally recommends that when the eGFR is used in patients with extremes of body mass index for purposes of drug dosing, the eGFR should be multiplied by the estimated BMI. [facility] CHEM PANEL BUN 5 7 - 22 07/03/2016 [facility] CHEM PANEL Glucose Lvl 126 70 - 99 07/03/2016 [facility] CHEM PANEL Bili Total 0.7 0.2 - 1.3 07/03/2016 [facility] CHEM PANEL Alk Phos 228 39 - 136 07/03/2016 [facility] CHEM PANEL CO2 27 24 - 32 07/03/2016 [facility] CHEM PANEL Chloride Lvl 99 95 - 109 07/03/2016 [facility] CHEM PANEL AGAP 13.0 10.0 - 20.0 07/03/2016 [facility] CHEM PANEL Creatinine Lvl <0.15 0.50 - 1.40 07/03/2016 [facility] CHEM PANEL Sodium Lvl 136 135 - 145 07/03/2016 [facility] CHEM PANEL Potassium Lvl 3.0 3.5 - 5.1 07/03/2016 Result Comment: Critical Result(s) called to Lizbet Bonilla at 07/03/2016 08:10 by prabha. Read back OK. [facility] CHEM PANEL Globulin 3.9 2.7 - 4.2 07/03/2016 [facility] CHEM PANEL AST 18 0 - 37 07/03/2016 [facility] CHEM PANEL ALT 11 0 - 65 07/03/2016 [facility] CHEM PANEL A/G Ratio 0.3 0.7 - 1.6 07/03/2016 [facility] CHEM PANEL Calcium Lvl 6.8 8.5 - 10.5 07/03/2016 [facility] CHEM PANEL Albumin Lvl 1.0 3.5 - 5.0 07/03/2016 [facility] CHEM PANEL Total Protein 4.9 6.4 - 8.4 07/03/2016 [facility] CHEM PANEL Lipase Lvl 588 73 - 393 07/03/2016 [facility] HEMATOLOGY Lymphocytes # 1.2 1.0 - 5.5 07/03/2016 [facility] HEMATOLOGY Monocytes # 0.7 0.0 - 0.8 07/03/2016 [facility] HEMATOLOGY Basophils 0.1 0.0 - 1.0 07/03/2016 [facility] HEMATOLOGY Segs-Bands # 8.4 1.5 - 8.1 07/03/2016 [facility] HEMATOLOGY Eosinophils 0.2 0.0 - 4.0 07/03/2016 [facility] HEMATOLOGY Monocytes 6.4 2.0 - 12.0 07/03/2016 [facility] HEMATOLOGY Lymphocytes 11.7 20.0 - 40.0 07/03/2016 [facility] HEMATOLOGY Segs 81.6 45.0 - 75.0 07/03/2016 [facility] HEMATOLOGY MPV 9.2 7.4 - 10.4 07/03/2016 [facility] HEMATOLOGY Platelet 242 133 - 450 07/03/2016 [facility] HEMATOLOGY MCH 28.0 27.0 - 31.0 07/03/2016 [facility] HEMATOLOGY MCV 87.7 80.0 - 98.0 07/03/2016 [facility] HEMATOLOGY Hct 31.5 36.0 - 48.0 07/03/2016 [facility] HEMATOLOGY RBC 3.60 4.20 - 5.40 07/03/2016 [facility] HEMATOLOGY Hgb 10.1 12.0 - 16.0 07/03/2016 [facility] HEMATOLOGY WBC 10.3 3.7 - 10.4 07/03/2016 [facility] HEMATOLOGY RDW 24.1 11.5 - 14.5 07/03/2016 [facility] HEMATOLOGY MCHC 31.9 32.0 - 36.0 07/03/2016 [facility] CARDIAC ENZYMES BNP 267 <=100 pg/mL 07/02/2016 [facility] CHEM PANEL Magnesium Lvl 1.9 1.8 - 2.4 07/02/2016 [facility] CHEM PANEL Magnesium Lvl 1.7 1.8 - 2.4 07/01/2016 [facility] CHEM PANEL Phosphorus 3.1 2.5 - 4.5 07/01/2016 [facility] CHEM PANEL eGFR 175 07/01/2016 Result Comment: The eGFR is calculated using the CKD-EPI formula. In most young, healthy individuals the eGFR will be >90 mL/min/1.73m2. The eGFR declines with age. An eGFR of 60-89 may be normal in some populations, particularly the elderly, for whom the CKD-EPI formula has not been extensively validated. Use of the eGFR is not recommended in the following populations:

Individuals with unstable creatinine concentrations, including patients and those with serious co-morbid conditions.

Patients with extremes in muscle mass or diet.

The data above are obtained from the National Kidney Disease Education Program (NKDEP) which additionally recommends that when the eGFR is used in patients with extremes of body mass index for purposes of drug dosing, the eGFR should be multiplied by the estimated BMI. [facility] CHEM PANEL B/C Ratio 38 6 - 25 07/01/2016 [facility] CHEM PANEL Total Protein 5.4 6.4 - 8.4 07/01/2016 [facility] CHEM PANEL AGAP 15.8 10.0 - 20.0 07/01/2016 [facility] CHEM PANEL Calcium Lvl 7.0 8.5 - 10.5 07/01/2016 Result Comment: Critical Result(s) called to Efrain Wootencurlymynor at 07/01/2016 07:01 by smt. Read back OK. [facility] CHEM PANEL Potassium Lvl 3.8 3.5 - 5.1 07/01/2016 [facility] CHEM PANEL Chloride Lvl 96 95 - 109 07/01/2016 [facility] CHEM PANEL CO2 25 24 - 32 07/01/2016 [facility] CHEM PANEL Creatinine Lvl 0.16 0.50 - 1.40 07/01/2016 [facility] CHEM PANEL Sodium Lvl 133 135 - 145 07/01/2016 [facility] CHEM PANEL Bili Total 0.6 0.2 - 1.3 07/01/2016 [facility] CHEM PANEL Alk Phos 203 39 - 136 07/01/2016 [facility] CHEM PANEL Globulin 4.2 2.7 - 4.2 07/01/2016 [facility] CHEM PANEL A/G Ratio 0.3 0.7 - 1.6 07/01/2016 [facility] CHEM PANEL ALT 9 0 - 65 07/01/2016 [facility] CHEM PANEL AST 21 0 - 37 07/01/2016 [facility] CHEM PANEL Albumin Lvl 1.2 3.5 - 5.0 07/01/2016 [facility] CHEM PANEL Glucose Lvl 128 70 - 99 07/01/2016 [facility] CHEM PANEL BUN 6 7 - 22 07/01/2016 [facility] HEMATOLOGY Platelet 268 133 - 450 07/01/2016 [facility] HEMATOLOGY MPV 10.1 7.4 - 10.4 07/01/2016 [facility] HEMATOLOGY RDW 24.3 11.5 - 14.5 07/01/2016 [facility] HEMATOLOGY MCHC 33.2 32.0 - 36.0 07/01/2016 [facility] HEMATOLOGY Hgb 11.1 12.0 - 16.0 07/01/2016 [facility] HEMATOLOGY RBC 3.89 4.20 - 5.40 07/01/2016 [facility] HEMATOLOGY WBC 17.3 3.7 - 10.4 07/01/2016 [facility] HEMATOLOGY MCH 28.5 27.0 - 31.0 07/01/2016 [facility] HEMATOLOGY MCV 85.8 80.0 - 98.0 07/01/2016 [facility] HEMATOLOGY Hct 33.4 36.0 - 48.0 07/01/2016 [facility] HEMATOLOGY Monocytes # 1.1 0.0 - 0.8 07/01/2016 [facility] HEMATOLOGY Lymphocytes # 1.4 1.0 - 5.5 07/01/2016 [facility] HEMATOLOGY Segs-Bands # 14.7 1.5 - 8.1 07/01/2016 [facility] HEMATOLOGY Basophils 0.1 0.0 - 1.0 07/01/2016 [facility] HEMATOLOGY Eosinophils 0.1 0.0 - 4.0 07/01/2016 [facility] HEMATOLOGY Monocytes 6.5 2.0 - 12.0 07/01/2016 [facility] HEMATOLOGY Lymphocytes 8.2 20.0 - 40.0 07/01/2016 [facility] HEMATOLOGY Segs 85.1 45.0 - 75.0 07/01/2016 [facility] CHEM PANEL Amylase Lvl 191 25 - 115 06/30/2016 [facility] CHEM PANEL Lipase Lvl 943 73 - 393 06/30/2016 [facility] CHEM PANEL B/C Ratio 30 6 - 25 06/30/2016 [facility] URINE CHEM U Preg Negative (06/29/16 1:46 PM) Negative 06/29/2016 [facility] CHEM PANEL Amylase Lvl 170 25 - 115 06/29/2016 [facility] CHEM PANEL Phosphorus 3.0 2.5 - 4.5 06/29/2016 [facility] PARATHYROID PROFILE Ca Norm WB 0.97 1.05 - 1.25 06/29/2016 [facility] PARATHYROID PROFILE Ca Ion WB 0.97 1.05 - 1.25 06/29/2016 [facility] PARATHYROID PROFILE Ca Norm WB 0.94 1.05 - 1.25 06/28/2016 [facility] PARATHYROID PROFILE Ca Ion WB 0.95 1.05 - 1.25 06/28/2016 [facility] HEMATOLOGY Plt Morph Normal (06/27/16 4:40 AM) 06/27/2016 [facility] HEMATOLOGY RBC Morph Normal (06/27/16 4:40 AM) 06/27/2016 [facility] MOLECULAR DIAGNOSTIC C difficile DNA Negative (06/24/16 8:37 PM) Negative 06/25/2016 [facility] URINE AND STOOL Fecal Leukocyte None Seen (06/24/16 8:37 PM) 06/25/2016 [facility] ENDOCRINOLOGY Aldos/Renin Ratio <0.2 0.0 - 30.0 06/22/2016 Result Comment: Units: ng/dL per ng/mL/hr
Performed At: [facility]
[id number], [place] [id number]
Milton Suárez MD Ph:[phone] [facility] ENDOCRINOLOGY Aldosterone <1.0 0.0 - 30.0 06/22/2016 Result Comment:
This test was developed and its performance characteristics
determined by [facility]. It has not been cleared or
approved by the Food and Drug Administration. [facility] ENDOCRINOLOGY Renin Activity 4.74 06/22/2016 Result Comment: Adult Normal Salt
Intake:
Upright 1.31 - 3.95
Supine 0.15 - 2.33

Salt Excretion
(Na mEq/24 hr):
Na=0 - 30 8.82 - 23.86
Na=30 - 75 4.09 - 7.73
Na=75 - 150 1.44 - 2.80
Na=>150 0.39 - 1.31 [facility] ANEMIA STUDY Vitamin B12 Lvl 476 254 - 1320 06/22/2016 [facility] ANEMIA STUDY Folate Lvl 3.8 >=3.0 ng/mL 06/22/2016 [facility] CHEM PANEL Ammonia 39.0 <=45.0 uMol/L 06/22/2016 [facility] HEMATOLOGY Eosinophils # 0.2 0.0 - 0.5 06/19/2016 [facility] CHEM PANEL Amylase Lvl 149 25 - 115 06/18/2016 [facility] LIPIDS Chol <50 <=199 mg/dL 06/18/2016 [facility] LIPIDS Trig 108 <=149 mg/dL 06/18/2016 [facility] LIPIDS HDL 12 >=61 mg/dL 06/18/2016 [facility] LIPIDS CHD Risk <4.17 3.90 - 5.80 06/18/2016 [facility] LIPIDS VLDL 22 06/18/2016 [facility] LIPIDS LDL (Calculated) 16 <=99 mg/dL 06/18/2016 [facility] CHEM PANEL Bili Indirect 0.3 0.0 - 1.0 06/17/2016 [facility] CHEM PANEL Bili Direct 0.5 0.0 - 0.3 06/17/2016 [facility] HEMATOLOGY Plt Morph Clumped (06/17/16 1:16 PM) 06/17/2016 [facility] HEMATOLOGY RBC Morph Normal (06/17/16 1:16 PM) 06/17/2016 [facility] TUMOR MARKERS AFP 3.2 0.0 - 11.0 06/17/2016 [facility] TUMOR MARKERS CA 125 354.0 0.0 - 35.0 06/17/2016 [facility] TUMOR MARKERS CEA 2.1 0.0 - 3.0 06/17/2016 [facility] CARDIAC ENZYMES Troponin-I <0.02 0.00 - 0.40 06/16/2016 [facility] CARDIAC ENZYMES CK MB 1.5 0.5 - 3.6 06/16/2016 [facility] CARDIAC ENZYMES Troponin-I 0.03 0.00 - 0.40 06/16/2016 [facility] CARDIAC ENZYMES CK MB 1.6 0.5 - 3.6 06/16/2016 [facility] CHEM PANEL Procalcitonin Lvl 0.11 0.00 - 0.10 06/16/2016 [facility] IMMUNOLOGY HIV 1/2 Ab Negative *NA* (06/16/16 5:11 AM) Negative 06/16/2016 [facility] BACTERIAL - SEROLOGY MRSA by PCR Negative (06/16/16 4:26 AM) 06/16/2016 [facility] DRUG SCREEN U Kristen Scr Negative *NA* (06/16/16 4:26 AM) Negative 06/16/2016 [facility] DRUG SCREEN U Cocaine Scr Negative *NA* (06/16/16 4:26 AM) Negative 06/16/2016 [facility] DRUG SCREEN U Opiate Scr Positive *ABN* (06/16/16 4:26 AM) Negative 06/16/2016 [facility] DRUG SCREEN U Phencyc Scr Negative *NA* (06/16/16 4:26 AM) Negative 06/16/2016 [facility] DRUG SCREEN U Benzodia Scr Negative *NA* (06/16/16 4:26 AM) Negative 06/16/2016 [facility] DRUG SCREEN U Cannab Scr Negative *NA* (06/16/16 4:26 AM) Negative 06/16/2016 [facility] DRUG SCREEN U Amph Scr Negative *NA* (06/16/16 4:26 AM) Negative 06/16/2016 [facility] DRUG SCREEN UDS Note See Note (06/16/16 4:26 AM) 06/16/2016 [facility] URINE AND STOOL UA Color Ltyellow 06/16/2016 [facility] URINE AND STOOL UA Urobilinogen <=1.0 mg/dL 0.1 - 1.0 06/16/2016 [facility] URINE AND STOOL UA Hyal Cast 5 0 - 2 06/16/2016 [facility] URINE AND STOOL UA RBC 2 0 - 2 06/16/2016 [facility] URINE AND STOOL UA Trans Epi 11 <=0 /LPF 06/16/2016 [facility] URINE AND STOOL UA Leuk Est Large *ABN* (06/16/16 4:26 AM) Negative 06/16/2016 [facility] URINE AND STOOL UA Sq Epi Occasional /LPF Few /LPF 06/16/2016 [facility] URINE AND STOOL UA WBC 79 0 - 5 06/16/2016 [facility] URINE AND STOOL UA Nitrite Negative (06/16/16 4:26 AM) Negative 06/16/2016 [facility] URINE AND STOOL UA Blood Moderate *ABN* (06/16/16 4:26 AM) Negative 06/16/2016 [facility] URINE AND STOOL UA Bili Negative *NA* (06/16/16 4:26 AM) Negative 06/16/2016 [facility] URINE AND STOOL UA Glucose Negative mg/dL Negative mg/dL 06/16/2016 [facility] URINE AND STOOL UA Ketones Negative mg/dL Negative mg/dL 06/16/2016 [facility] URINE AND STOOL UA Protein Negative mg/dL Negative mg/dL 06/16/2016 [facility] URINE AND STOOL UA Spec Grav 1.016 <=1.030 06/16/2016 [facility] URINE AND STOOL UA Turbidity Slight *ABN* (06/16/16 4:26 AM) Clear 06/16/2016 [facility] URINE AND STOOL UA pH 7.0 5.0 - 8.0 06/16/2016 [facility] HEMATOLOGY D-Dimer 4.48 06/16/2016 [facility] CARDIAC ENZYMES Troponin-I 0.03 0.00 - 0.40 06/16/2016 [facility] CARDIAC ENZYMES CK MB 1.3 0.5 - 3.6 06/16/2016 [facility] CARDIAC ENZYMES Total CK 19 12 - 191 06/16/2016 [facility] CARDIAC ENZYMES CK MB Index 6.8 0.0 - 2.5 06/16/2016 [facility] ENDOCRINOLOGY hCG Tot <1 06/16/2016 [facility] HEMATOLOGY Plt Morph Normal (06/15/16 9:26 PM) 06/16/2016 [facility] HEMATOLOGY RBC Morph Normal (06/15/16 9:26 PM) 06/16/2016 [facility] Pathology Reports No Data Provided for This Section Diagnostic Reports Report Value Date Source Abdomen/Pelvis w IV contrast CT Study: CT abdomen and pelvis with contrast. HISTORY: Pancreatitis. Ovarian mass. Comments: Abdomen pelvic CT was obtained utilizing multiple axial images from the lung bases to the pelvic outlet. Intravenous contrast was given. Sagittal and coronal reconstructions were reviewed. Compared to CT from 03/09/2017 Total exam DLP is is 493 mgy-cm. Visualized lower chest: The lung bases are clear. Normal size heart. Small hiatal hernia ABDOMEN: The liver, spleen and adrenal glands are within normal limits. Contracted gallbladder. Dilated CBD again seen, however no CT evidence of choledocholithiasis. Atrophic pancreas again seen. No peripancreatic inflammation to suggest acute pancreatitis. Moderate bilateral hydronephrosis and hydroureter seen. Left Ureteral stent again seen The small and large bowel loops are nondilated. No evidence of acute appendicitis or diverticulitis. No free intraperitoneal air or fluid collections. Under distended urinary bladder with diffuse bladder wall thickening Enlarged fibroid uterus again seen, currently measures 13 x 12 cm, previously measured 8 x 8 cm. 6 x 5.7 cm mass to the right of uterus may be due to exophytic fibroid or right adnexal mass, previously measured 5.1 x 4.4 cm Bones are within normal limits. Impression: No CT evidence of acute pancreatitis. Uterus and right pelvic mass have increased in size since 03/09/2017.. See comments above. Bilateral moderate hydronephrosis and hydroureter, new since the prior CT. Left ureteral stent again seen. 09/04/2018 [place] [place] [facility] 1[facility] DX 1 view chest portable: HISTORY: Chest pain. FINDINGS: Both lungs are clear. The heart and mediastinal contour stable from 03/09/2017. No pleural fluid or pneumothorax. IMPRESSION: No acute finding SL: MATTHEW 10/29/2017 [facility] MRI PANCREAS W/O CONTRAST IMPRESSION:1.Mild intrahepatic and moderate extrahepatic biliary ductaldilatation with smooth tapering at the ampulla. No choledocholithiasis.No evidence of obstructing mass on noncontrast MRI.2.Mildly dilated pancreatic duct in the pancreatic body and tail. Ductis relatively effaced as it passes adjacent to peripancreatic head cyst. 3.Two peripancreatic/exophytic pancreatic unilocular cystic structuresanterior to the pancreatic head and at the pancreatic tail-splenichilum. Given a history of pancreatitis and radiographic appearance,likely represent pseudocysts. IPMNs and/or mucinous cystic neoplasms areless likely. There is s suggestion of communication with pancreaticduct, more compelling at peripancreatic head cystic structure.4.Atrophic changes in the pancreas which is thinned diffusely. 5.Unc hanged moderate to severe left hydroureteronephrosis status postplacement of a nephroureteral stent, May indicating stent malfunction.6.Mild right hydroureteronephrosis. RECOMMENDATIONS: In the absence of imaging or laboratory findings ofacute biliary obstruction, nonemergent GI consultation recommended forfurther evaluation and management of biliary dilation andpancreatic/peripancreatic cysts. Dictated By: Franki Cool MD, 09/30/2017 9:15 AM I have reviewed the study and agree with the findings in this report. Signed By: Joyce Novoa MD, 09/30/2017 3:04 PM EXAM: MR ABDOMEN WITHOUT CONTRAST DATE: 09/30/2017 2:31 AM INDICATION: Pancreatitis. Common bile duct dilation. History ofpancreatitis COMPARISON: Abdominal ultrasound from 09/27/2017.TECHNIQUE: Multiplanar, multisequence MR acquisition of the abdomenwithout intravenous contrast, per MRCP protocol.IV contrast: None. Enteric contrast: None. FINDINGS: Lines, tubes and hardware: None. Lower thorax: Clear. Hepatobiliary:Liver: Normal.Gallbladder and cystic duct: Normal.Intrahepatic bile ducts: Mild intrahepatic biliary dilatation is seen.Extrahepatic bile duct: Moderate extrahepatic biliary ductal dilatationis seen. The common hepatic duct measures up to 12 mm and common bileduct measures 10 mm in diameter. The distal CBD demonstrates smoothtapering at ampulla. No filling defect to indicate choledocholithiasis.No evidence of an obstructing m ass on noncontrast MRI. Pancreas:*The pancreatic duct is mildly dilated in the pancreatic body andtail, where it measures 3 mm. Pancreatic duct is effaced at thebody-head junction where it passes posterior to a peripancreatic cyst.The duct in the pancreatic head is again distended but nondilated.*A thin-walled unilocular T2 hyperintense cystic lesion is positionedwithin the splenic hilum extending superiorly from the pancreatic tailand abutting the gastric wall on its medial margin. It measuresapproximately 2 x 2.2 x 3.8 cm (AP by transverse by craniocaudal). MildT1 hyperintensity of contents may indicate presence of blood products.*An additional thin-walled unilocular T2 hyperintense cystic lesionalong the anterior margin of the pancreatic head which measuresapproximately 1.2 x 1.9 x 1.6 cm (AP by transverse by craniocaudal).*A communication between the peripancreatic head cyst and thepancreatic duct is suggested on (series 4 image 17).Less compellingsuggestion of duct communication with tail cyst.*Atrophic changes in the pancreatic parenchyma which is thinneddiffusely. Portal vein: Normal. Spleen: Normal. Adrenals: Normal. Kidneys and ureters: *The proximal portion of a left ureteral stent is seen, with theproximal located within the left renal pelvis and the distal outside [id number]. *Moderate to severe left hydronephrosis is again seen, with the leftrenal pelvis measuring up to 2.3 cm in diameter, along with dilatationand blunting of the calyces. The left ureter remains dilated andtortuous both proximally and distally.*Mild right hydronephrosis is also seen, with the right pelvismeasuring up to 1.5 cm in diameter, although without calycealdilatation. The right proximal ureter is normal in diameter, with theright distal ureter measuring up to 9.4 mm in diameter. Gastrointestinal tract: Normal caliber. Peritoneum, mesentery and retroperitoneum: No free air, ascites orloculated fluid. Lymph nodes: Normal. Vasculature: Normal. Bones: Normal. Soft tissues: Normal. Interface, Rad/Mammog In - 09/30/2017 3:09 PM CSTEXAM: MR ABDOMEN WITHOUT CONTRAST DATE: 09/30/2017 2:31 [...] renal pelvis and the distal outside the [id number]. * Moderate to severe left hydronephrosis is [...] By: Joyce Novoa MD, 09/30/2017 3:04 PM 09/30/2017 [facility]/S THYROID/NECK IMPRESSION:Enlarged goiter heterogeneous thyroid with nodules and pseudonodularappearance of similar appearance without microcalcifications, but withincreased vascularity suggestive of hyperthyroidis m. REFERENCE:Casandra FN, Maxwell WD, Kishore EG, et al. ACR Thyroid Imaging,Reporting and Data System (TI-RADS): White Paper of the ACR TI- RADSCommittee. J Am Digna Radiol. 2017; 14(5): 587?595. Signed By: Ha Joseph MD, 09/27/2017 4:31 PM EXAM: US THYROID DATE: 09/27/2017 4:30 PM INDICATION:assess thyroid given hyperthyroidism ADDITIONAL INFORMATION: None. COMPARISON: None. TECHNIQUE: Multiplanar grayscale and color Doppler ultrasound of theneck were obtained in the area of the thyroid. FINDINGS:Thyroid parenchyma: Heterogeneous with increased vascularity. Right thyroid size: 7.9 x 2.7 x 3.1 cm. Enlarged. Left thyroid size: 8.7 x 3.2 x 3.1 cm. Enlarged. Isthmus thickness: 0.77 cm. Enlarged. Thyroid nodules: Pseudonodular appearance with two suspected similarappearing isoechoic nodules measuring 2.7 x 1.7 and 2.5 x 1.8 cm on theright from the superior to inferior pole. No definitemicrocalcifications. Suggestion of an isoechoic nodule measuring 2.9 x 3 x 3.1 cm. Nomicrocalcifications. Bilateral tiny benign cystic nodules. Cervical lymph nodes: Not enlarged. Interface, Rad/Mammog In - 09/27/2017 4:36 PM CSTEXAM: US THYROID DATE: 09/27/2017 4:30 PM INDICATION: [...] with increased vascularity suggestive of hyperthyroidism. REFERENCE: Reneesler FN, Maxwell WD, Kishore EG, et al. ACR Thyroid Imaging, Reporting and Data System (TI-RADS): White Paper of the ACR TI-RADS Committee. J Am Digna Radiol. 2017; 14(5): 587?[phone]. Signed By: Ha Joseph MD, 09/27/2017 4:31 PM 09/27/2017 [facility] U/S ABDOMEN Addendum by Ha Joseph MD on 09/27/2017 4:38 PMInterrogation of the bladder demonstrate bladder wall thickening withlobulated appearance, with distal loop of nephroureteral stent, whichcould indicate chronic cystitis.Cine images demonstrate bladder wallthickening with heterogeneous and echogenic appearance, which could berelated to chronic inflammation/infectious changes. Cannot excludebladder wall malignancy. However, recommend correlation with cystoscopy and tissue diagnosis frombladder wall for better evaluation and to exclude malignancy. Bladder measures 4.3 x 6 x 3.7 cm, volume of 50 ml. Signed By: Ha Joseph MD, 09/27/2017 4:38 PM IMPRESSION: 1.Moderate to severe left hydronephrosis.2.Dilated common bile duct up to 12 mm. Can obtain further evaluationwith MRCP.3.Cholelithiasis without convincing evidence of cholecystitis. Findings were communicated to Dr. Corky Queen at 12:20 PM on 09/27/2017. This EPIC radiology report is a preliminary resident dictation untilfinalized by an attending.Changes to this preliminary report may occurin an additional preliminary or finalized version. Dictated By: Hesham Montaño MD, 09/27/2017 12:28 PM I have reviewed the study and agree with the findings in this report. Signed By: Ha Joseph MD, 09/27/2017 12:32 PM EXAM: US ABDOMEN COMPLETE DATE: 09/27/2017 12:18 PM INDICATION: ureteral stent evaluation, fibroids. Recurrent UTI ADDITIONAL INFORMATION: None. COMPARISON: None. TECHNIQUE: Multiplanar grayscale and color Doppler ultrasound of theabdomen. FINDINGS: Liver:Craniocaudal length: 14.2 cm.Echogenicity: Normal.Surface: Normal.Mass (size and location): None. Main portal vein: Caliber: 1.0 cm.Flow: Hepatopetal. Bile ducts:Common bile duct diameter: 1.2 cm.Intrahepatic ducts: Dilated. Gallbladder: Contracted.Gallstones: Nonmobile stones are seen in the gallbladder.Gallbladder sludge: None.Gallbladder wall: 0.3 cm.Pericholecystic fluid: None.Sonographic Mathew sign: Absent. Pancreas:Head and uncinate process: Not seen.Body: Normal.Tail: Not seen. Spleen:Size: 9.8 x 4.4 x 4.5 cm. Mass or focal lesion (size and location): None. Right kidney:Size: 10.6 x 5.8 x 7.3 cm.Hydronephrosis: None.Echogenicity: Normal.Calculi: None.Cysts/Masses: None. Left kidney:Size: 11.8 x 6.5 x 6.0 cm.Hydronephrosis: Moderate to severe hydronephrosis. Portion of echogeniclinear structure likely left nephroureteral stent is present. Echogenicity: Normal.Calculi: None.Cysts/Masses: None.Other: The stent extends from the renal pelvis to the urinary bladder. Abdominal aorta: Visible portions are normal.Inferior vena cava: Visible portions are normal. Free fluid: None. Other: Bladder distal loop of stent seen within lumen. Interface, Rad/Mammog In - 09/27/2017 12:37 PM CSTEXAM: US ABDOMEN COMPLETE DATE: 09/27/2017 12:18 PM [...] Queen at 12:20 PM on 09/27/2017. This [facility] radiology report is a preliminary resident dictation until finalized by an attending. Changes to this preliminary report may occur in an additional preliminary or finalized version. Dictated By: Hesham Montaño MD, 09/27/2017 12:28 PM I have reviewed the study and agree with the findings in this report. Signed By: Ha Joseph MD, 09/27/2017 12:32 PM 09/27/2017 [facility] XRAY CHEST 1 VIEW IMPRESSION:No acute cardiopulmonary abnormality. Signed By: April Daniel MD, 09/27/2017 12:33 AM EXAM: XR CHEST 1 VIEW DATE: 09/26/2017 at 11:49 PM INDICATION: sepsis. Recurrent UTI COMPARISON: None TE CHNIQUE: AP chest FINDINGS: Lines, tubes and hardware: None. Lungs and pleura: No pulmonary or pleural based abnormality isidentified. Pulmonary vascularity is normal. Heart and mediastinum: The heart size is normal for technique.Themediastinal contours are normal. Bones: No acute bony abnormality is identified. Interface, Rad/Mammog In - 09/27/2017 12:38 AM CSTEXAM: XR CHEST 1 VIEW DATE: 09/26/2017 at [...] By: April Daniel MD, 09/27/2017 12:33 AM 09/27/2017 [facility] U/S TRANSVAGINAL IMPRESSION:1.Large central fibroid with likely a submucosal component.2.Right adnexal lesion, likely pedunculated subserosal fibroid.3.Nonvisualization of the left ovary, likely due to shadowing fromleiomyomata. Signed By: Gordon Nunez MD, 09/24/2017 1:34 PM EXAM: US PELVIS TRANSABDOMINALEXAM: US PELVIS TRANSVAGINAL DATE: 09/24/2017 at 1118 hours INDICATION: Pelvic pain. Uterine leiomyoma, unspecified location ADDITIONAL INFORMATION: None. COMPARISON: None. TECHNIQUE:Multiplanar grayscale and color Doppler ultrasound of thepelvis were obtained:Transabdominally through a distended urinary bladder.Transvaginally postvoid. FINDINGS: Uterus/Myometrium:Size: 10.7 x 8.5 x 7.6 cmOrientation: Anteverted.Echogenicity: Normal.Masses: *Large central fibroid with likely submucosal component is 9.2 x 8.4 x6.5 cm.*Partially visualized right adnexal lesion is most consistent with apedunculated fibroid measuring 6.7 cm in largest diameter.Cervix: Normal. Endometrium: Not well seen, likely obscured by large central fibroidwith possible submucosal component. Right ovary:Size: 2.7 x 1.8 x 1.1 cmCysts/Masses: None. Left ovary: Not seen. Adnexa: Right adnexal lesion, likely pedunculated fibroid, as detailedabove. Free fluid: None. Other: None. Interface, Rad/Mammog In - 09/24/2017 1:39 PM CSTEXAM: US PELVIS TRANSABDOMINAL EXAM: US PELVIS TRANSVAGINAL [...] By: Gordon Nunez MD, 09/24/2017 1:34 PM 09/24/2017 [facility]/S PELVIS NON-OB IMPRESSION:1.Large central fibroid with likely a submucosal component.2.Right adnexal lesion, likely pedunculated subserosal fibroid.3.Nonvisualization of the left ovary, likely due to shadowing fromleiomyomata. Signed By: Gordon Nunez MD, 09/24/2017 1:34 PM EXAM: US PELVIS TRANSABDOMINALEXAM: US PELVIS TRANSVAGINAL DATE: 09/24/2017 at 1118 hours INDICATION: Pelvic pain. Uterine leiomyoma, unspecified location ADDITIONAL INFORMATION: None. COMPARISON: None. TECHNIQUE:Multiplanar grayscale and color Doppler ultrasound of thepelvis were obtained:Transabdominally through a distended urinary bladder.Transvaginally postvoid. FINDINGS: Uterus/Myometrium:Size: 10.7 x 8.5 x 7.6 cmOrientation: Anteverted.Echogenicity: Normal.Masses: *Large central fibroid with likely submucosal component is 9.2 x 8.4 x6.5 cm.*Partially visualized right adnexal lesion is most consistent with apedunculated fibroid measuring 6.7 cm in largest diameter.Cervix: Normal. Endometrium: Not well seen, likely obscured by large central fibroidwith possible submucosal component. Right ovary:Size: 2.7 x 1.8 x 1.1 cmCysts/Masses: None. Left ovary: Not seen. Adnexa: Right adnexal lesion, likely pedunculated fibroid, as detailedabove. Free fluid: None. Other: None. Interface, Rad/Mammog In - 09/24/2017 1:39 PM CSTEXAM: US PELVIS TRANSABDOMINAL EXAM: US PELVIS TRANSVAGINAL [...] By: Gordon Nunez MD, 09/24/2017 1:34 PM 09/24/2017 [facility] Abdomen/Pelvis wo IV contrast CT CT ABDOMEN AND PELVIS WITHOUT CONTRAST INDICATION: Generalized abdominal pain, CT dose DLP 304.60 mGy-cm - ABD PAIN COMPARISON: CT abdomen/pelvis 09/20/2016, pelvic ultrasound 03/09/2017 DISCUSSION: ABDOMEN: There is no consolidation of the visible lung bases. There is a 5.0 x 2.4 x 2.6 cm cyst situated in the region of the pancreatic tail, abutting the splenic hilum and greater curvature of the gastric fundus. There has been interval removal of the previously seen main pancreatic duct stent. The pancreas appears atrophied. There appears to be mild peripancreatic edema, predominantly in the pancreatic head region. The common bile duct is dilated, measuring approximately 13 mm in diameter. No choledocholithiasis is visible. No obvious mass is seen in the region of the pancreatic head or ampulla. The gallbladder is contracted, grossly unremarkable. No cholelithiasis is visible. There is trace intrahepatic pneumobilia. The liver is otherwise grossly unremarkable. A left ureteral stent is in place. There is no hydronephrosis. No urolithiasis is visible. The right kidney is grossly unremarkable. The spleen and adrenal glands are grossly normal in morphology. Aside from the presence of the suspected pancreatic pseudocyst in the region of the gastric wall, the stomach is grossly unremarkable. There are a few air and fluid distended small bowel loops. No transition point is identified. The appendix and large bowel are grossly unremarkable. The abdominal aorta is normal in caliber. No free fluid is seen. PELVIS: The uterus is enlarged and lobular, compatible with the fibroid uterus described in the preceding pelvic ultrasound. The ovaries are not visible. The distal end of the left ureteral stent is seen in the bladder lumen. A focus of air is noted in the bladder lumen. The bladder is otherwise grossly unremarkable. BONES: No acute bony abnormalities are seen. IMPRESSION: 1. Interval increase in size of the pancreatic pseudocyst in the region of the pancreatic tail, currently measuring 5.0 cm in greatest dimension. The cyst was previously markedly diminished in size. Mild edema in the pancreatic head region suggests potential mild or early acute pancreatitis. 2. Dilatation of the common bile duct. No obstructing choledocholithiasis or mass is visible. 3. A left ureteral stent is in place. There is no hydronephrosis. 4. Mild nonspecific dilatation of the small bowel, potentially secondary to ileus or enteritis. No transition point is identified. 5. Large fibroid uterus. SL:16 03/09/2017 [facility] Pelvis w pelvis doppler US EXAM: US PELVIS TRANSABDOMINAL DATE: 03/09/2017 8:53 PM CDT INDICATION: Pelvic masses COMPARISON: None. TECHNIQUE: Multiplanar grayscale and color Doppler ultrasound of the pelvis were obtained transabdominally FINDINGS: The uterus is anteverted in position and measures 9.6 x 7.1 x 7.7 cm. The endometrial stripe was not visualized. Multiple fibroids are present, measuring up to 6.6 x 6.4 x 6.8 cm. An additional large fibroid measures 5.2 x 4.5 x 4.4 cm. The right and left ovaries are normal in appearance. Doppler evaluation of the ovaries demonstrate normal vascularity. The right ovary measures 2.5 x 1.3 x 1.8 cm. The left ovary measures 2.3 x 1.3 x 1.5 cm. No significant free fluid is noted in the pelvic cul-de-sac. A stent is incidentally noted within the bladder. IMPRESSION: Multiple large fibroids, with the two largest measuring 6.6 and 5.2 cm. SL: [id number] 03/09/2017 [facility] Chest 1view DX Patient Name: CHIKA BOJORQUEZ : 1975; Age: 41 years Female MR: [id number] Study: Chest 1view DX Order Time: 03/09/2017 8:02 PM CDT Clinical Indication: - SOB. COMPARISON: June 2017 x-rays. July 2016 x-rays back to August 23. FINDINGS: Views: 1 LUNGS: There is normal lung volume. There are no suspicious interstitial/airspace opacities. There are no pleural effusions. There is no pneumothorax. The pulmonary vasculature is normal. MEDIASTINUM: The cardiac silhouette is normal. The trachea is midline. BONES: There are no clinically significant osseous abnormalities noted. IMPRESSION: No radiographic evidence of acute pulmonary disease. SL: [id number] 03/09/2017 [facility] Abdomen AP DX Patient Name: CHIKA BOJORQUEZ : 1975; Age: 41 years Female MR: [id number] Study: Abdomen AP DX 12/27/2016 8:18 AM CDT CLINICAL INDICATION: - evaluate known L stent COMPARISON: CT on 12/18/2016 FINDINGS: Left ureteral stent appears in adequate position, with cranial tip projecting over the left renal pelvis and caudal tip projecting over the bladder. No evidence of urinary calculi. Soft tissue density within the left pelvis associated with leftward deviation of the ureteral stent. Nonspecific bowel gas pattern without evidence of dilatation, pneumatosis, or pneumoperitoneum. No acute bony abnormalities. IMPRESSION: Soft tissue density within the left pelvis associated with leftward deviation of the ureteral stent, compatible with known left pelvic lesion as seen on the CT from 09/19/2016. Nonobstructive bowel gas pattern. SL: [id number] 12/27/2016 [facility] Abdomen/Pelvis w IV contrast CT Abdomen/Pelvis w IV contrast CT TECHNIQUE: Contiguous transaxial images of the abdomen and pelvis were performed from the lung bases to the superior pubic rami with IV contrast. CLINICAL HX: Abdominal pain, acute, DISORDER OF PANCREAS, ABDOMINAL PAIN; CT DLP:644.14 MGY-CM COMPARISON: 09/05/2016 CT ABDOMEN: Lower Chest: The lung bases are clear. GI Tract: Dobbhoff tube is noted to terminate near the junction of the duodenum and jejunum. Bowel gas pattern is unremarkable. There are scattered areas of mild thickening of the wall of the colon. No evidence to suggest small or large bowel obstruction. There is no evidence for free fluid or free air in the abdomen. The pseudocyst gastrostomy device has been removed in the interim. Drainage catheter draining the largest pseudocyst in the right lower abdomen is in place. There is minimal residual fluid in this collection. It measures approximately 13 cm in the transverse dimension but only approximately 0.3 cm in the AP dimension. Tract and retroperitoneum: Left ureteral stent extends from the left renal pelvis to the bladder. There is mild caliectasis. Mild cortical scarring is noted in both kidneys. Lymph Nodes: No significant retroperitoneal lymphadenopathy is noted. Abdominal viscera: Fatty infiltration of liver. There is atrophy of the pancreas. No significant peripancreatic edema to suggest acute pancreatitis. Gallbladder is contracted without evidence for obvious gallstones. There is intrahepatic and extrahepatic bile duct dilation. Maximum caliber of the CBD at the pancreatic head is 10 mm. Vasculature: Aorta demonstrates normal morphology. Bone and Soft tissues: No significant bony abnormality is noted. CT PELVIS: The bladder demonstrates normal morphology. Large submucosal and subserosal leiomyomas are visualized unchanged in size and appearance from previous study. No free fluid is present in the pelvis. IMPRESSION: Large lower abdomen oval fluid collection has markedly decreased in size. Drainage catheter remains in place. Pseudocyst gastrostomy device has been removed in the interim. No definite evidence to suggest acute/active pancreatitis. Mild intrahepatic and extrahepatic bile duct dilation. Further evaluation with MRCP is recommended. Scattered areas of mild thickening of the wall of the colon. Correlate clinically for other signs of colitis. No other significant interval change from previous study is noted. SL: [id number] 09/20/2016 [facility] Abscess or cyst drain/aspirate VR Patient Name: CHIKA BOJORQUEZ : 1975; Age: 40 years Female MR: [id number] Study: Abscess or cyst drain/aspirate VR 09/12/2016 2:55 PM RECEPTION AGENT PROCEDURE: CT-guided exchange of a right abdominal drainage catheter CLINICAL INFORMATION: Pancreatitis and multiple pseudocysts CONSENT: The procedure, risks, benefits and alternatives were discussed with the patient and written informed consent was obtained. TECHNIQUE: cinema operator: Dr. Renteria Preoperative diagnosis: Pancreatitis and multiple pseudocysts Postoperative diagnosis: Same DLP: 449.72 mGy-cm Estimated blood loss: Minimal Pain control: 1% lidocaine was administered for local anesthesia. Patient's vital signs were monitored continuously throughout the procedure by a dedicated nurse. The patient was placed in a supine position on the CT table. Preprocedure CT again demonstrated the right lower quadrant drainage catheter located within a large abdominal fluid collection. The right lower abdomen was prepped and draped with sterile technique and the skin was anesthetized with 1% lidocaine. The existing catheter was cut followed by placement of a 0.035 inch Amplatz wire and serial dilatation. The existing catheter was then exchanged for a 16-English gastrostomy catheter. At this point, no larger size catheter is in stock. The catheter was affixed to the skin, connected to a JUAN bulb, and sterile dressings applied. Postprocedure imaging demonstrated no immediate complication with good position of the catheter. Patient tolerated the procedure well and transferred to the floor in stable condition. IMPRESSION: Successful CT-guided exchange of the right lower quadrant drainage catheter. A 16-English gastrostomy tube was placed as that is the largest catheter currently in stock. Patient will likely need aggressive irrigation, TPA administration, and likely further upsizing of the drainage catheter. SL: [id number] 09/13/2016 [facility] Nasogastric tube placement VR Patient Name: CHIKA BOJORQUEZ : 1975; Age: 40 years Female MR: [id number] Study: Nasogastric tube placement VR 09/13/2016 7:22 AM RECEPTION AGENT PROCEDURE: Repositioning of the Dobbhoff tube CLINICAL INFORMATION: Nonfunctioning Dobbhoff tube. CONSENT: The procedure, risks, benefits and alternatives were discussed with the patient and written informed consent was obtained. TECHNIQUE: cinema operator: Dr. Renteria Preoperative diagnosis: Nonfunctioning Dobbhoff tube Postoperative diagnosis: Same Fluoroscopy time: 0.7 minutes Estimated blood loss: Minimal The patient was placed in a supine position on the fluoroscopy table. Initial radiograph demonstrates the Dobbhoff tube looped within the stomach and tip projecting over the duodenum. A severe kink was noted within the Dobbhoff tube which did not allow for contrast to pass. The Dobbhoff tube was gently retracted and uncoiled. Subsequent contrast administration demonstrated the tip of the Dobbhoff tube within the distal duodenum. IMPRESSION: Successful repositioning of the Dobbhoff tube. SL: [id number] 09/13/2016 [facility] Chest 1view DX Study: Chest 1view DX 09/12/2016 8:42 PM RECEPTION AGENT Patient Name: CHIKA BOJORQUEZ MR: [id number] : 1975; Age: 40 years y/o Female Ordering Physician: Sadie Gleason MD Clinical Indication: Tube placement/removal/reposition Comparison: 08/29/2016. FINDINGS LUNGS: The lungs are clear of consolidation, pleural effusion, and pneumothorax. HEART AND MEDIASTINUM: Normal size heart. LINES: 1. Left PICC line tip overlying the distal portion of the SVC with subtle density suggesting the tip extending into the azygos vein. 2. The feeding tube tip extends beneath the diaphragm off the film edge. OSSEOUS STRUCTURES: No fracture, dislocation, or suspicious focal osseous lesion. OTHER: None. IMPRESSION: 1. Left PICC line tip possibly extending into the azygos vein as above discussed. A follow-up oblique or lateral image would be confirmatory. SL: TPAINTER-PC 09/12/2016 [facility] Endoscopic Retro Pancreatogram ERCP DX Patient Name: CHIKA BOJORQUEZ : 1975; Age: 40 years Female MR: [id number] Study: Endoscopic Retro Pancreatogram ERCP DX 09/12/2016 10:29 AM RECEPTION AGENT CLINICAL INDICATION: PANCREATIC DUCT COMPARISON: None FINDINGS: Limited intraoperative fluoroscopic images provided for ERCP. Initial glandular demonstrates a dilated common bile duct possibly related to a distal stricture. The main pancreatic duct was subsequently cannulated followed by stent placement. The Dobbhoff tube also appears to have been removed. SL: [id number] 09/12/2016 [facility] Abdomen/Pelvis wo IV contrast CT EXAM: CT ABDOMEN AND PELVIS WITHOUT CONTRAST DATE: 09/05/2016 at 2235 hours INDICATION: Fever ADDITIONAL INFORMATION: None. COMPARISON: None. TECHNIQUE: Volumetric CT acquisition of the abdomen and pelvis without contrast. Axial, coronal and sagittal reconstructions. IV contrast: None. Oral contrast: None. DLP: 538 mGy-cm DISCUSSION: Lines and tubes: A feeding tube tip is in the 4th portion of the duodenum. Cystogastrostomy device is seen. A left ureteric stent extends from the proximal left ureter to the bladder. The lower abdominal pancreatic pseudocysts restrained by a catheter. Lower thorax: Clear. Liver: Normal. Biliary tree: No intra- or extrahepatic biliary ductal dilation. Gallbladder: Contracted with sludge versus stones in the lumen. Pancreas: Pseudocyst in the tail the pancreas has almost completely resolved. Spleen: Normal. Adrenals: Normal. Kidneys: Cortical scarring is seen in the left kidney. There is bilateral caliectasis without evidence of obstruction. Punctate nonobstructive stones are seen bilaterally. Bladder: Normal. Reproductive organs: Submucosal and pedunculated fibroids are decreased in size, likely reflecting degeneration. Gastrointestinal tract: Normal caliber. Appendix: Normal appendix. Peritoneum and retroperitoneum: There has been interval decrease in size of the enhancing fluid collection in the lower abdomen with a few air pockets which may be from drainage catheter. No other fluid collection. Lymph nodes: Normal. Vasculature: Normal. Bones: Normal. Soft tissues: Normal. IMPRESSION: 1. Interval placement of percutaneous drainage catheter with decrease in size of lower abdominal loculated fluid collection. Significant-sized residual collection is seen however. 2. Large submucosal degenerating polyp in the left uterus and another possible pedunculated fibroid in the right adnexal region seen again. Is not previously characterized, nonemergent pelvic ultrasound can be performed. 3. Left ureteral stent is in place but is low positioned as before. Interval improvement in left hydronephrosis which is now mild. 09/05/2016 [facility] Chest 1 v for Placement DX EXAM: XR CHEST 1 VIEW DATE: 08/29/2016 3:27 PM RECEPTION AGENT INDICATION: PICC Line Reposition COMPARISON: 08/23/2016 TECHNIQUE: AP chest IMPRESSION: 1. Left PICC line again seen with tip terminates at the atriocaval junction. Interval unlooping of the feeding tube. 2. Both lungs are clear. Costophrenic recesses are sharp. Cardiomediastinal silhouette within normal limits. No acute osseous abnormalities. 08/29/2016 [facility] Abdomen cyst aspiration w guidance CT STUDY: VIR Fluid Collection Drain Peritoneal STUDY: VIR CT Guidance DATE: 08/27/2016 INDICATION(S): 40-year-old with Pancreatic pseudocyst/pseudocyst abscess in the lower abdomen request is for percutaneous drain placement. PROCEDURE(S) PERFORMED: Successful CT-guided placement of a 14-English biliary type drain into the pancreatic fluid collection. PHYSIOGNOMIST: Dr. Colindres GUNSMITH APPRENTICE(S): Mariana Carrizales CONSENT: Written consent obtained after discussing the indications, procedure, potential benefits, alternatives and risks. SEDATION/PAIN CONTROL: 1% Lidocaine used as local anesthetic. PROCEDURE IN DETAIL: The patient was brought into the CT suite and placed in the supine position. Preprocedure imaging demonstrated a right lateral access approach. The site was marked and the skin was cleaned and prepped in the usual sterile fashion. The marked site was infiltrated with 1% lidocaine for local anesthetic. A Chiba needle, 18G-15, was placed into the fluid collection and location was confirmed by CT. A wire was placed and the needle was removed. The tract was sequentially dilated using a 10, 12, 14-English dilators. After creating additional hole catheter 14-English drain, it was placed into the site and advanced to the left lateral aspect of the fluid collection that traverse the entire fluid collection in the transverse plane, this was confirmed on CT. Clear yellow fluid drained easily from the sequences. A single Prolene stitch was placed at the skin to secure the catheter. FINDINGS: A large fluid collection is present in the abdomen. A 14-English drain was successfully placed traversing the entire fluid collection. Clear yellow fluid easily drained through the drainage catheter. COMPLICATIONS: None immediate ESTIMATED BLOOD LOSS: Minimal FLUOROSCOPIC TIME: N/A RADIATION DOSE(DLP): 299.8 mGy*cm CONTRAST VOLUME: N/A IMPRESSION: Successful placement of a 14F drain within the abdominal fluid collection. PLAN/FOLLOW UP: Recommend flushing the drain with 10 mL of saline every [address] Colindres, IR Attending, was present for the procedure. 08/27/2016 [facility] Abdomen AP DX EXAM: XR ABDOMEN 1 FRONTAL VIEW DATE: 08/24/2016 3:45 PM RECEPTION AGENT INDICATION: Tube placement/removal/reposition ADDITIONAL INFORMATION: None. COMPARISON: KUB 08/24/2016 at 0845 hours. TECHNIQUE: Single frontal view of the abdomen. FINDINGS: Lines and tubes: Removal of previous enteric tube. New enteric tube with distal tip projecting in the region of the 4th stage of the duodenum. Redemonstrated gastric drainage device overlying the pancreas. Left ureteral stent in place. Lower thorax: Unremarkable where visualized. Bowel: Nonobstructive bowel gas pattern. Retained contrast within the colon. Solid organs: No abnormal mass or organomegaly seen. Calcifications: No abnormal calcifications found. Bones: Unchanged. IMPRESSION: 1. New enteric tube is detailed. 08/24/2016 [facility] ERCP Diagnostic DX EXAM: ERCP Diagnostic DX DATE: 08/24/2016 3:01 PM RECEPTION AGENT INDICATION: Bile Duct Stones ADDITIONAL INFORMATION: None. COMPARISON: 08/13/2016 FINDINGS: ERCP has been performed and 8 images provided for interpretation. Cholangiogram images show mild dilation of the extrahepatic bile duct and multiple filling defects in the proximal common hepatic duct region with mild upstream intrahepatic biliary ductal dilation. As per the ERCP note, multiple stones have been removed from the bile duct. A pancreaticogram has also been performed and shows opacification of the dilated proximal main pancreatic duct and subsequently there is opacification of the stomach with contrast and a cystogastrostomy device is seen overlying the stomach indicating connection between the cavity of the peripancreatic fluid collection in the stomach. 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 Main pancreatic duct is dilated with dilated side branch in the proximal portion consistent with chronic pancreatitis change. IMPRESSION: 1. Multiple filling defects in the extrahepatic bile duct likely corresponding to biliary calculi, as per the ERCP note multiple biliary calculi were removed. Mild intrahepatic biliary ductal dilation seen proximal to the calculi in the proximal extrahepatic duct region. 2. Opacification of the stomach by the contrast injected through the main pancreatic duct indicating fistulous communication of main pancreatic duct to the peripancreatic fluid collection and the opacification of the stomach is related to the cystogastrostomy. This indicates main pancreatic duct disruption in the proximal body region with fistulous communication/leak into the peripancreatic fluid collection. However, recommend correlation with findings observed by the mobile application engineer in real-time by performing the pancreaticogram. 3. Dilated main pancreatic duct and side branches in the proximal main pancreatic duct region consistent with chronic pancreatitis change. 08/24/2016 [facility] Abdomen AP DX EXAM: XR ABDOMEN 1 FRONTAL VIEW DATE: 08/24/2016 8:39 AM RECEPTION AGENT INDICATION: Tube placement/removal/reposition ADDITIONAL INFORMATION: None. COMPARISON: KUB 08/22/2016 TECHNIQUE: Single frontal view of the abdomen. FINDINGS: Lines and tubes: Stable position of enteric tube, looped within the proximal gastric body with distal tip projecting over the distal second stage of the duodenum. Left ureteral stent stable in position. Stable position of gastric drainage device overlying the pancreas. Lower thorax: Unremarkable where visualized. Bowel: Nonobstructive bowel gas pattern. Moderate stool burden. Solid organs: No abnormal mass or organomegaly seen. Calcifications: No abnormal calcifications found. Bones: Unchanged. IMPRESSION: 1. Stable lines and tubes. 2. Nonobstructive bowel gas pattern. Moderate stool burden. 08/24/2016 [facility] Chest 1view DX Portable chest: The PICC line tip is in satisfactory position at the cavoatrial junction. The feeding tube tip is in the 2nd portion of the duodenum with the tube coiled in the stomach. The lungs and pleural spaces are clear. There is no other significant change compared to the earlier exam on the same day. [id number] 08/23/2016 [facility] Chest 1view DX Patient Name: CHIKA BOJORQUEZ : 1975; Age: 40 years Female MR: [id number] Study: Chest 1view DX Order Time: 08/23/2016 1:21 PM RECEPTION AGENT Clinical Indication: PICC Line Placement. STAT portable Chest X-ray post successful insertion. Indication: Correct Line Placement. COMPARISON: July 2016 x-rays. 07/24/2016. FINDINGS: Views: 1 SUPPORT LINES: Dobbhoff tube tip is in the 2nd/3rd portion of the duodenum. Left PICC line tip is in the right atrium. LUNGS: There is normal lung volume. There are no suspicious interstitial/airspace opacities. There are no pleural effusions. There is no pneumothorax. The pulmonary vasculature is normal. MEDIASTINUM: The cardiac silhouette is normal. The trachea is midline. BONES: There are no clinically significant osseous abnormalities noted. IMPRESSION: Left PICC line tip in the right atrium. SL: [id number] 08/23/2016 [facility] Abdomen AP DX Patient Name: CHIKA BOJORQUEZ : 1975; Age: 40 years Female MR: [id number] Study: Abdomen AP DX 08/22/2016 4:50 PM RECEPTION AGENT. Clinical Indication: Feeding intolerance. COMPARISON: July 2016 x-rays back to August 16. FINDINGS: Views: 1 Dobbhoff tube tip is in the 2nd/3rd portion of the duodenum. Gastric drainage device adjacent to the pancreas is again noted. There is a non-obstructive bowel gas pattern. There is no abnormal dilation of bowel loops. There are no radiopaque densities noted. There are no clinically significant osseous abnormalities noted. Left ureteral stent. Moderate constipation. IMPRESSION: 1. Dobbhoff tube tip in the 2nd/3rd portion of duodenum. 2. Left ureteral stent. 3. Gastric drainage device. 4. Constipation. SL: [id number] 08/22/2016 [facility] Abdomen AP DX Portable chest: The feeding tube is coiled in the stomach with the tip in the 2nd portion of the duodenum, unchanged from the previous day. A left ureteral stent remains in satisfactory position. The ab dominal gas pattern is normal. There is no visible pneumoperitoneum. There is no other significant change. SL DLAWRENCE-PC 08/21/2016 [facility] Chest 1view DX Study: Chest 1view DX 08/20/2016 7:04 PM RECEPTION AGENT Patient Name: CHIKA BOJORQUEZ MR: [id number] : 1975; Age: 40 years y/o Female Ordering Physician: Tim Edmonds DO Clinical Indication: Coughing Comparison: 07/24/2016. FINDINGS LUNGS: Pulmonary inflation has increased. Interval retrocardiac opacity suspicious for a small pleural effusion with underlying atelectasis, pneumonia, or aspiration. No pneumothorax. HEART AND MEDIASTINUM: Heart size at the upper limits of normal. LINES: Feeding tube tip overlying the proximal duodenum. OSSEOUS STRUCTURES: No fracture, dislocation, or suspicious focal osseous lesion. OTHER: None. IMPRESSION: 1. Retrocardiac opacity suspicious for small left pleural effusion with underlying atelectasis, pneumonia, or aspiration. 2. Heart size near upper limits of normal. SL: TPAINTER-PC 08/20/2016 [facility] Abdomen AP DX Patient Name: CHIKA BOJORQUEZ : 1975; Age: 40 years Female MR: [id number] Study: Abdomen AP DX 08/20/2016 2:52 PM RECEPTION AGENT. Clinical Indication: Tube placement/removal/reposition. COMPARISON: None FINDINGS: Views: 1 Dobbhoff tube tip is in the expected region of the second/third portion of the duodenum. Left ureteral stent is inferiorly positioned. Overlying catheter limits detail. There is a non-obstructive bowel gas pattern. There is no abnormal dilation of bowel loops. There are no radiopaque densities noted. There are no clinically significant osseous abnormalities noted. IMPRESSION: 1. Dobbhoff tube tip in expected region of the second/third portion of the duodenum. 2. Inferiorly positioned left ureteral stent. SL: [id number] 08/20/2016 [facility] Abdomen 1 v for Placement DX Patient Name: CHIKA BOJORQUEZ : 1975; Age: 40 years y/o Female MR: [id number] Study: Abdomen 1 v for Placement DX 08/16/2016 2:35 PM RECEPTION AGENT Ordering Physician: En Cabello MD Clinical Indication: Tube Reposition Dobhoff; Comparison: 08/13/2016 CT scan of the abdomen and pelvis The lower pelvis is not imaged. The feeding tube continues to coil upon itself in the region of the stomach with its weighted portion overlying the region of the gastric cardia. The metallic device known to extend between the stomach and pancreas in the medial aspect of the left upper quadrant has not changed in position. Again seen is the left ureteral stent. Thickening of the díaz of the proximal ascending colon is now seen. No dilated loops of bowel. No significant bony abnormalities. No mass or abnormal calcifications. SL: [id number] 08/16/2016 [facility] Fluoroscopy assist to 1 hour DX Patient Name: CHIKA BOJORQUEZ : 1975; Age: 40 years y/o Female MR: [id number] Study: Fluoroscopy assist to 1 hour DX 08/16/2016 2:14 PM RECEPTION AGENT Ordering Physician: En Cabello MD Clinical Indication: DOBB STEVE PLACEMENT; TUBE PLACMENT FT: 16 SECS DS: 2.33 mGy Comparison: Dobbhoff tube placement 08/08/2016 FINDINGS AND IMPRESSION: Fluoroscopy was provided for Dobbhoff tube placement. SL: [id number] 08/16/2016 [facility] Paracentesis w ultrasound guide VR Paracentesis with Ultrasound Guidance, 08/16/2016 7:00 AM RECEPTION AGENT CLINICAL INFORMATION: Pancreatitis; loculated ascites CONSENT: The procedure, risks, benefits and alternatives were discussed with the patient and written informed consent was obtained. PROCEDURE: Patient was kept in a supine position in the bed. The right abdomen was scanned, demonstrating mild to moderate multiloculated ascites. Right abdomen was prepped and draped utilizing all elements of maximal barrier sterile technique. Lidocaine 1% was injected into a focus of skin and into the deeper soft tissues to the peritoneal lining. Pigtail Ng catheter was advanced through the anesthetized tissues and into the peritoneal cavity under sonographic guidance. 1.4 L of cloudy yellow fluid was removed via negative pressure Vacutainer bottles. The catheter was removed. COMPLICATIONS: None COOLER WORKER: Dr. Jacome IMPRESSION: Successful ultrasound-guided paracentesis with 1.4 L of cloudy yellow fluid tapped. SL: [id number] 08/16/2016 [facility] Abdomen/Pelvis w IV contrast CT EXAM: CT abdomen and pelvis HISTORY: Acute abdominal pain, pancreatitis COMPARISON: CT 08/06/2016 TECHNIQUE: Axial images of the abdomen and pelvis with sagittal and coronal reformats. IV and enteric contrast given. DLP: 860 FINDINGS: 1. Decreased size of the pseudocyst in the tail of the pancreas with small residual collection with several small air pockets may reflect interval drainage. 2. Stable drainage device between the stomach and neck of the pancreas with decreased size of the pseudocyst at the neck/body of the pancreas. 3. The very large peripheral enhancing fluid collection in the lower abdomen is again noted and now contains two small air pockets that may reflect infection of a pseudocyst. 4. Stable uterine lesions may reflect fibroids including degenerating/hemorrhagic fibroids. 5. Stable left ureteral stent with moderate left hydroureteronephrosis. Slightly increased mild right hydroureteronephrosis. Scarring of the left kidney. 6. Distended urinary bladder. 7. Cholelithiasis and choledocholithiasis with dilated common duct measuring 10 mm diameter. 8. Fatty liver. 9. Mild splenomegaly. 10. Gallbladder is contracted. The adrenals are unremarkable. Dobbhoff tube in the stomach. No bowel obstruction. Advanced generalized osteopenia. SL: [id number] 08/13/2016 [facility] Fluoro guide for Naso/Gastric tube DX Patient Name: CHIKA BOJORQUEZ : 1975; Age: 40 years Female MR: [id number] Study: Fluoro guide for Naso/Gastric tube DX 08/08/2016 1:08 PM RECEPTION AGENT Clinical Indication: Fluoro Guidance DOSE: 2.2dGy cm2/ TIME: 0.3 mins. COMPARISON: None FINDINGS: Fluoroscopic guidance was provided to the nurse for advancement of the Dobbhoff tube. The Dobbhoff tube tip is in the mid stomach. The stylet was removed. SL: [id number] 08/08/2016 [facility] Fluoro guide for Naso/Gastric tube DX Fluoro guide for Naso/Gastric tube DX CLINICAL INDICATION: Fluoro Guidance for NG tube placement. Pancreatitis. The patient has a stent which extends from a pancreatic pseudocyst into the gastric lumen. COMPARISON: CT abdomen pelvis 08/06/2016 FINDINGS/IMPRESSION: Fluoroscopic assistance was provided to the patient's nurse by the radiologist, Dr. Adkins. Dobbhoff tube was placed by the patient's nurse into the patient's stomach. Thereafter, multiple attempts were made by the nurse to advanced the feeding tube from the stomach into the duodenum with fluoroscopic assistance by the radiologist. These attempts by the nurse were unsuccessful. Stomach to pseudocyst stent is visualized in the stomach. With fluoroscopic assistance, it was made certain, that the manipulations by the nurse to the Dobbhoff tube remained away from the stent. At the conclusion of the procedure, the tip of the Dobbhoff tube is partially looped within the stomach near the junction of the fundus and body of the stomach. SL: [id number] 08/07/2016 [facility] Paracentesis w ultrasound guide VR Paracentesis with Ultrasound Guidance, 08/07/2016 10:55 AM RECEPTION AGENT CLINICAL INFORMATION: Pancreatitis; ascites CONSENT: The procedure, risks, benefits and alternatives were discussed with the patient and written informed consent was obtained. PROCEDURE: Patient was kept in a supine position in the bed. The right abdomen was scanned, demonstrating mild to moderate the multiloculated/multiseptated ascites. Right abdomen was prepped and draped utilizing all elements of maximal barrier sterile technique. Lidocaine 1% was injected into a focus of skin and into the deeper soft tissues to the peritoneal lining. Pigtail Ng catheter was advanced through the anesthetized tissues and into the peritoneal cavity under sonographic guidance. 1 L of greenish-yellow fluid was removed via negative pressure Vacutainer bottles. The catheter was removed. COMPLICATIONS: None COOLER WORKER: Dr. Jacome IMPRESSION: Successful ultrasound-guided paracentesis with 1 L greenish-yellow fluid tapped. However, the fluid is multiloculated/multiseptated. SL: [id number] 08/07/2016 [facility] Abdomen/Pelvis w IV contrast CT EXAM: CT ABDOMEN AND PELVIS WITH CONTRAST DATE: 08/06/2016 5:33 PM RECEPTION AGENT INDICATION: Abdominal pain, acute. COMPARISON: 07/27/2016. TECHNIQUE: Helical CT imaging of the abdomen and pelvis performed from lung bases through the lesser trochanters following the administration of intravenous contrast. Axial, sagittal and coronal multiplanar reconstructions provided. IV contrast: [address] Radiation Dose: UXE=489.54 mGy-cm FINDINGS: LOWER CHEST: The lung bases are clear of focal consolidation, pleural effusions, and pneumothorax. The heart is mildly enlarged without evidence for a pericardial effusion. A central catheter is partially visualized. LIVER: A too small to characterize hypodensity is noted within the right lobe of the liver on series 2 image 22 measuring approximately 9 mm in size. GALLBLADDER/BILIARY: The gallbladder is contracted. Mild prominence of the intrahepatic and extra hepatic bile ducts are visualized, with the common bile duct measuring 10 mm in diameter within the pancreatic head. PANCREAS: Interval postprocedural changes related to a pancreatic necrosectomy are visualized, with communication between the patient's pseudocyst arising from the neck of the pancreas and the lesser sac of the stomach. The overall size of the pseudocyst has decreased in size from the comparison exam, now measuring approximately 4.5 x 2.3 x 3.6 cm in size. A few pockets of air are noted within the residual fluid collection, series 2 image 21 because of communication with the stomach lumen. An additional pseudocyst along the tail the pancreas, inseparable from the greater curvature of the stomach on series 2 image 20 measures 3.2 x 2.9 x 3.0 cm in size. A mild to moderate amount of surrounding inflammatory changes throughout the pancreas continues to be visualized. SPLEEN: A mild amount of mass effect on the spleen from a loculated perisplenic fluid collection is noted. ADRENALS: Unremarkable KIDNEYS AND URETERS: [id number] left hydronephrosis is visualized, increased from the previous exam with a nephroureteral stent unchanged in position from the prior exam. The proximal pigtail of the nephroureteral stent appears to be within the proximal ureter rather than the renal pelvis. A nonobstructive stone is noted within the left kidney on series 2 image 36. Moderate periureteral stranding is noted bilaterally. BLADDER: Layering stones are noted within the left lateral aspect of the bladder on series 2 image 83. STOMACH: Moderately distended with fluid. Reflux of fluid into the distal esophagus is noted. BOWEL: Focal dilatation of the duodenum is likely reactive in nature. No evidence for bowel obstruction. Reactive wall thickening throughout the small and large bowel is visualized. The rectum is moderately distended with fluid, without evidence for wall thickening. APPENDIX: The appendix is visualized and unremarkable. PELVIS: There is redemonstration of a large mass arising from the uterus with internal necrosis on series 2 image 71 measuring approximately 7.9 x 7.7 cm in the axial plane. An exophytic fibroid arising from the uterus fundus measures up to 5.3 cm in size. PERITONEUM: Extensive loculated fluid collection within the lower abdomen is visualized, comprising of the majority of the pelvis. The extent of surrounding peritoneal thickening and enhancement has increased from the previous exam. LYMPH NODES: Numerous shotty retroperitoneal and mesenteric lymph nodes are visualized, with the most prominent cluster noted on series 2 image 31 in the mid abdomen. 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 OSSEOUS STRUCTURES: The bones are mildly sclerotic. No acute osseous abnormalities visualized. SOFT TISSUES: Diffuse subcutaneous edema and stranding is visualized. IMPRESSION: 1. Interval postprocedural changes related to pancreatic necrosectomy with decrease in size of the pseudocyst arising from the neck of the pancreas, measuring 4.5 x 2.3 x 3.6 cm. An additional pseudocyst arising from the tail the pancreas, inseparable from the greater curvature of the stomach, measures 3.2 x 2.9 x 3.0 cm. 2. Increasing loculation, peritoneal enhancement, and wall thickening within a large fluid collection within the pelvis, concerning for peritonitis. A superimposed infection would be difficult to exclude. 3. Increasing left hydronephrosis, now mild to moderate in degree. The left nephroureteral stent is somewhat malpositioned, with the proximal pigtail catheter noted within the proximal ureter rather than the renal pelvis. The distal pigtail catheter is noted appropriately within the bladder. Dr. Vaughn was informed of these findings by telephone on 01/04/2017 at 1905 hours. SL: [id number] 08/06/2016 [facility] Abdomen/Pelvis w IV contrast CT Patient Name: CHIKA BOJORQUEZ : 1975; Age: 40 years Female MR: [id number] Study: Abdomen/Pelvis w IV contrast CT 07/27/2016 1:01 PM RECEPTION AGENT Clinical Indication: Fever. low abdomen pain. DLP: 667 mGycm COMPARISON: July 18, 2016. June 29, 2016. June 16, 2016. TECHNIQUE: Helical imaging was performed diaphragm through the symphysis with IV multiplanar reformations obtained after the administration of IV contrast. FINDINGS: LOWER CHEST: The lung bases are clear. ABDOMEN: No free air. Loculated collection is noted medial to the left lobe of the liver measuring 12.2 cm x 5.4 cm. There is generalized mesenteric edema. 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 LIVER: Normal. BILIARY TREE: Normal. GALLBLADDER: The gallbladder is not well evaluated and appears to be contracted. PANCREAS: Sequela of prior pancreatitis with increased size to the previously described pseudocysts. Mid body pseudocyst measures 7.8 cm x 3.9 cm. Pancreatic tail complex presumed pseudocyst measures 3.3 cm in diameter. SPLEEN: Normal. ADRENALS: Normal. KIDNEYS: Decreased left hydronephrosis with presence of a left ureteral stent. Left renal stone measures 6 mm. PELVIS: Presumed uterine fibroids measuring on the order of 5.6 cm and 5.8 cm similar to the prior exam with probable necrosis. BOWEL: No small bowel obstruction. Left colonic wall thickening. Normal appendix. PERITONEUM: Extensive ascites. RETROPERITONEUM: The aorta is normal. There is no pathologic lymphadenopathy. MUSCULOSKELETAL: Patchy lytic and sclerotic foci seen throughout the skeleton. IMPRESSION: 1. Increased size to pancreatic pseudocysts. 2. Extensive ascites with a loculated anterior collection. Increased mesenteric edema. 3. Left nephrolithiasis. Decreased left hydronephrosis. 4. Probable left colitis. 5. Presumed uterine fibroids. 6. 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 7. Patchy lytic and sclerotic foci throughout the skeleton. Correlation for metastatic disease or metabolic process is recommended. 8. Normal appendix. These findings were communicated to the patient's nurse Jessica at 07/28/2016 2:30 PM RECEPTION AGENT. SL: [id number] 07/27/2016 [facility] Chest 2 views DX EXAM: XR CHEST 2 VIEW DATE: 07/24/2016 3:33 PM RECEPTION AGENT INDICATION: Dyspnea. COMPARISON: 07/03/2016 TECHNIQUE: PA and lateral views of the chest were obtained. FINDINGS: A right PICC is unchanged in position. There is subsegmental atelectasis noted within the lung bases. The lung volumes are low. No focal consolidation or pneumothorax is identified. The cardiomediastinal silhouette is within normal limits. The costophrenic recesses are sharp and without effusion. No acute osseous abnormality is identified. IMPRESSION: Low lung volumes with subsegmental atelectasis. No acute cardiopulmonary abnormality. SL: [id number] 07/24/2016 [facility] Paracentesis w ultrasound guide VR Paracentesis with Ultrasound Guidance CLINICAL INFORMATION: Patient with ascites. CONSENT: The procedure, risks, benefits and alternatives were discussed with the patient and written informed consent was obtained. PROCEDURE: With the patient in the supine position focused abdominal ultrasound was performed to identify a suitable pocket of fluid for percutaneous drainage. The patient was then prepped and draped in the usual sterile fashion. Maximal sterile barrier precautions were used. After administering local anesthesia, a 5 English catheter was placed into the peritoneal cavity under ultrasound guidance. An ultrasound image was printed, scanned, and saved into the permanent medical record. 1. Approximately 2000 milliliters of dark, slightly green-tinged fluid was aspirated. The fluid was sent for routine analysis including cell count, stain, and cultures. The patient tolerated the procedure well and there were no immediate complications. The catheter was removed at the end of the procedure. IMPRESSION: Ultrasound-guided paracentesis as described above. Again, 2000 milliliters of fluid were aspirated. SL: [id number] 07/19/2016 [facility] Abdomen/Pelvis wo IV contrast CT Patient Name: CHIKA BOJORQUEZ : 1975; Age: 40 years y/o Female MR: [id number] * I. COMPUTED TOMOGRAPHY SCAN OF THE ABDOMEN without contrast. * II. COMPUTED TOMOGRAPHY SCAN OF THE PELVIS without contrast HISTORY: Abdominal distention, abdominal pain. Recent diagnosis of acute pancreatitis. History of hypertension, hyperthyroidism, and goiter. It is noted the patient underwent placement of a left ureteral stent on 06/18/2016 for left ureteral obstruction from a pelvic mass. COMPARISON: A pancreatic protocol computed tomography scan with and without contrast of 06/29/2016. A computed tomography scan of the abdomen and pelvis of 06/16/2016 and a right upper quadrant ultrasound of 06/28/2016 were also reviewed. * TECHNIQUE: I. COMPUTED TOMOGRAPHY SCAN OF THE ABDOMEN without contrast: Helical CT images were obtained on a multidetector computed tomography from the domes the diaphragms to the iliac crests. Intravenous contrast was not administered. Oral contrast was administered although there is only a small amount of oral contrast. II. COMPUTED TOMOGRAPHY SCAN OF THE PELVIS without contrast: Helical CT images were obtained on a multidetector computed tomography from the iliac crests to the pubic symphysis. Intravenous contrast was not administered. Oral contrast was administered although there is only a small amount of oral contrast. II Coronal and sagittal reconstructions were obtained. CT radiation dose DLP: 515 mGy-cm IMPRESSION: 1. Sequela of prior pancreatitis is noted including small pseudocysts including peripancreatic and intrapancreatic pseudocysts. These are not as well elucidated on this noncontrast scan when compared to the pancreatic protocol contrast-enhanced CT scanning but appear overall similar to the prior study. No definite new or enlargement of the existing cysts are noted. The largest cyst is in the region of the pancreatic head measuring approximately 2.5 cm. 2. Large amount of ascites which was not present on 06/16/2016. There is been a and increase from 06/29/2016. 3. No free intraperitoneal gas, definite intra-abdominal abscess, bowel obstruction, or other acute process. 4. Probable cholelithiasis. A tiny calcification on the order of 3 mm is noted in the region of the gallbladder neck on image 29 of series 3. The gallbladder is decompressed and rest. 5. Dilatation the common bile duct which measures approximately 11 mm in diameter. This is similar to the prior study. There is no significant intrahepatic ductal dilatation. 6. On the previous contrast-enhanced study, there are findings consistent with fatty change involving the liver, not well seen on this limited noncontrast study. A small low-density lesion within the caudate lobe of the liver, probable cyst, is noted and unchanged. 7. The spleen is normal in size and appearance. 8.. Enlargement of the uterus. This is similar to prior study. The prior study demonstrated an approximately 9.6 x 8.7 cm lesion involving the uterus, probable degenerative uterine fibroid. There is also a 5.8 x 5.4 cm mass in the right adnexal region which appears to represent an exophytic fibroid. 9. The patient previously had significant left hydronephrosis. There is now a left ureteral stent. The stent extends from the region of the proximal left ureter just below the left renal pelvis into the bladder. There is now only mild residual right hydronephrosis. 10. The kidneys are normal in size. There is no hydronephrosis on the right. No calculi or focal lesions are seen. 11. No adenopathy or other mass is seen within the abdomen or pelvis. 12. The the gastrointestinal structures are unremarkable. There is no evidence of obstruction or ileus. A normal appendix is visualized. There is no evidence of appendicitis. Evaluation of the gastrointestinal structures is limited as it is only a small amount of oral contrast material. 13. The aorta is normal in caliber. 14. Anasarca. 15. There are mild densities in the region of the upper lobes bilaterally, probable areas of atelectasis. The visualized lung bases are otherwise clear. There are no pleural effusions. 16. Mild cardiomegaly. There is no pericardial effusion. 17. The regional skeleton is unremarkable. 18. A PICC is seen extending into the region of the caval atrial junction. SL: [id number] 07/18/2016 [facility] Chest 1view DX Patient Name: CHIKA BOJORQUEZ : 1975; Age: 40 years Female MR: [id number] Study: Chest 1view DX Order Time: 07/03/2016 4:20 PM RECEPTION AGENT Clinical Indication: PICC Line Placement. STAT portable Chest X-ray post successful insertion. Indication: Correct Line Placement. COMPARISON: July 2012 x-rays back to August 14. FINDINGS: Views: 1 SUPPORT LINES: Right PICC line tip is in the region of the superior vena cava right atrial junction. Overlying leads limit detail. LUNGS: There is normal lung volume. There are no suspicious interstitial/airspace opacities. There are no pleural effusions. There is no pneumothorax. The pulmonary vasculature is normal. MEDIASTINUM: The cardiac silhouette is normal. The trachea is midline. BONES: There are no clinically significant osseous abnormalities noted. IMPRESSION: Right PICC line placement as described above without pneumothorax. SL: [id number] 07/03/2016 [facility] Abd Pancreatic Protocol w/wo contrast CT Abd Pancreatic Protocol w/wo contrast CT 06/29/2016 10:37 AM RECEPTION AGENT Ordering Physician:Brent Zuleta MD CLINICAL HISTORY: Generalized abdominal pain; pancreatitis COMPARISON: CT torso 06/16/2016 TECHNIQUE: 5 mm thick axial images of the abdomen and pelvis were obtained without IV contrast. Oral contrast was administered. 2.5 mm thick axial images of the abdomen were obtained with IV contrast via pancreatic protocol. 5 mm thick axial images of the abdomen and pelvis were obtained in the portal venous phase. 5 mm thick delayed axial images of the abdomen were obtained. Coronal and sagittal reformations were created. FINDINGS: Trace left pleural effusion is present. Mild scattered ascites is present. Roughly 10 x 2.5 cm pseudocyst is present superior to and along the longitudinal axis of the pancreas. Smaller in pseudocyst measuring about 8 x 1.2 cm is present along the undersurface of the greater curvature of the stomach. Small 4 x 1.3 cm pancreatitis pseudocyst is present just superior to the 3rd and 4th portion of duodenum. Pancreatic tail 2 x 3 cm pseudocyst is present. Heterogeneously hypoattenuating changes are noted in the pancreatic head and uncinate process with small, subcentimeter pseudocysts. Mild peripancreatic fat stranding is present mainly around the pancreatic head. Short segmental splenic venous mild caliber attenuation without thrombosis is present. Regional vasculature is patent. Diffuse fatty infiltration of liver is present. Spleen and adrenal glands are normal. Central right hepatic lobe small cyst is present. Gallbladder is contracted. Right kidney and ureter are grossly normal. Left kidney demonstrates mild pelviectasis, but with a double-J ureteral stent in place. Bladder is contracted. Large complex cystic left adnexal mass measuring 8.7 cm is present. A 5.7 cm solid centrally necrotic mass is present in the right pelvis. Multiple mildly dilated loops of jejunum reaching a maximum caliber of 3 cm are present. Colon is contracted. Small hiatal hernia is present, with enteral contrast noted in the visualized distal esophagus. Appendix is normal. New moderate subcutaneous and intra-abdominal fat stranding/edema is present. No mesenteric or retroperitoneal lymphadenopathy is present. No free air is present. Bones demonstrate are normal. IMPRESSION: 1. Expected evolutionary changes with respect to the multiple peripancreatic pseudocysts and intrapancreatic pseudocysts. 2. New mild ascites. 3. Diffuse fatty infiltration of liver. 4. Bilateral complex solid cystic pelvic tumors, 8.7 cm on the left and 5.7 cm in the right. 5. Moderate anasarca. SL: [id number] 06/29/2016 [facility] Spine lumbar wo contrast MRI Study: Spine lumbar wo contrast MRI Clinical Indication: Weakness Comparison: None TECHNIQUE: Multiplanar, multisequence magnetic resonance imaging of the lumbar spine was performed without the administration of intravenous gadolinium contrast. FINDINGS: 5 nonrib-bearing lumbar vertebra are present. No acute compression fracture or subluxation is seen. Bone marrow signal is within normal limits for patient's age. No vertebral body marrow edema is seen. Mild disc desiccation throughout the lumbar spine is seen. There is mild disc height loss at L4-L5. Conus terminates at L1. Ascites is incidentally noted. Findings by level: T12-L1: Negative for significant disc bulge or protrusion. Facets are intact. No spinal canal stenosis or neural foraminal narrowing is seen. L1-L2: Negative for significant disc bulge or protrusion. Facets are intact. There is no spinal canal stenosis or neural foraminal narrowing. L2-L3: Negative for significant disc bulge or protrusion. Facets are intact. There is no spinal canal stenosis or neural foraminal narrowing. L3-L4: Negative for significant disc bulge or protrusion. Facets are intact. There is no spinal canal stenosis or neural foraminal narrowing. L4-L5: Negative for significant disc bulge or protrusion. Facets are intact. There is no spinal canal stenosis or neural foraminal narrowing. L5-S1: 2 mm diffuse disc bulge is seen. Mild facet arthrosis is present. There is no spinal canal stenosis or neural foraminal narrowing. The cauda equina and nerve roots are unremarkable. IMPRESSION: 1. Mild degenerative change of the lower lumbar spine without spinal canal stenosis or neural foraminal narrowing. SL: [id number] 06/28/2016 [facility] Spine cervical wo contrast MRI Study: Spine cervical wo contrast MRI Clinical Indication: Weakness Comparison: None TECHNIQUE: Multiplanar, multisequence magnetic resonance imaging of the cervical spine was performed without the administration of intravenous gadolinium contrast. FINDINGS: There is normal alignment of the cervical spine. No focal marrow signal abnormality is present. The prevertebral soft tissues, atlanto-dental interspace, and craniocervical junction are within normal limits. The visualized brainstem region is unremarkable. The cervical spinal cord is normal in size and signal. Diffuse enlargement of the thyroid gland is incidentally noted. The discs are desiccated throughout the cervical spine. No significant disc height loss is noted. DISC SPACES: C2-C3: No significant disc bulge or protrusion is seen. The facets are intact. There is no spinal canal stenosis or neural foraminal narrowing. C3-C4: Focal 2.5 mm central disc protrusion is seen. Facets are intact. There is mild to moderate spinal canal stenosis with the thecal sac measuring 8.5 mm AP dimension. C4-C5: No significant disc bulge or protrusion is seen. The facets are intact. There is no spinal canal stenosis or neural foraminal narrowing. C5-C6: 2 mm diffuse disc bulge is seen. Facets are intact. There is no spinal canal stenosis or neural foraminal narrowing. C6-C7: No significant disc bulge or protrusion is seen. The facets are intact. There is no spinal canal stenosis or neural foraminal narrowing. C7-T1: No significant disc bulge or protrusion is seen. The facets are intact. There is no spinal canal stenosis or neural foraminal narrowing. IMPRESSION: 1. 2.5 mm focal central disc protrusion at C3-C4, resulting in mild to moderate spinal canal stenosis. 2. 2 mm diffuse disc bulge at C5-C6. SL: [id number] 06/28/2016 [facility] Abdomen RUQ US Clinical Indication: Abdominal pain, acute Comparison: None TECHNIQUE: Grayscale and limited color sonographic evaluation of the right upper quadrant of the abdomen and gallbladder region was performed with standard technique. FINDINGS: LIVER: The visualized liver shows normal contour, size, and morphology with diffusely increased hepatic echotexture. BILE DUCTS: The intrahepatic and extrahepatic bile ducts are not dilated with the common bile duct measuring 5 mm. GALLBLADDER: The gallbladder is not visible on this examination. The gallbladder had been present on a previous CT scan dated June 16, 2016. PANCREAS: The pancreas is not visualized. KIDNEY: The right kidney measures 11.9 cm. There is normal renal contour and morphology, with normal parenchymal echotexture. There is no hydronephrosis. ASCITES: There is ascites visible in the right upper quadrant around the liver. IMPRESSION: 1. Gallbladder is not visible on this examination, although it was present on previous CT scan of June 16, 2016. Patient was not kept npo for this examination, and this may be contributory. Correlation with any history of recent surgery is suggested. 2. Pancreas cannot be visualized on this examination due to overlying bowel gas, and is not evaluated. 3. There is possible fatty infiltration of the liver. 4. Ascites is present around the liver. SL: [id number] 06/28/2016 [facility] Ext Lower Venous Doppler Bilat US Patient Name: CHIKA BOJORQUEZ : 1975; Age: 40 years y/o Female MR: [id number] Study: Ext Lower Venous Doppler Bilat US 06/24/2016 1:22 PM RECEPTION AGENT Clinical Indication: Bilateral leg swelling; Comparison: 08/14/2012 TECHNIQUE: Sonographic evaluation of the bilateral lower extremity veins was performed using high resolution B-mode imaging, along with pulse and color Doppler imaging. FINDINGS: Right lower extremity: The common femoral vein, femoral vein, popliteal vein and visualized posterior tibial/calf veins are patent. No evidence for deep venous thrombosis from the right common femoral vein to the right popliteal vein. The saphenofemoral junction is unremarkable. Left lower extremity: The common femoral vein, femoral vein, popliteal vein and visualized posterior tibial/calf veins are patent. No evidence for deep venous thrombosis from the left common femoral vein to the left popliteal vein. The saphenofemoral junction is unremarkable. IMPRESSION: No evidence for deep venous thrombosis from the common femoral vein to the popliteal vein bilaterally. SL: [id number] 06/24/2016 [facility] w/wo contrast MRI EXAM: MRI BRAIN WITH AND WITHOUT CONTRAST DATE: 06/22/2016 11:31 PM RECEPTION AGENT INDICATION: Ataxia. COMPARISON: CT brain dated 06/22/2016. TECHNIQUE: Multiplanar, multisequence MRI imaging of the brain was acquired with and without intravenous contrast. FINDINGS: No acute intracranial hemorrhage, midline shift, or mass effect is identified. The ventricles and sulci are within normal limits, without evidence for hydrocephalus. No evidence for restricted diffusion is present to suggest an acute infarct. No abnormal gradient susceptibility artifact or parenchymal enhancement is present. Prominent perivascular spaces are noted within the basal ganglia bilaterally. A retention cyst within the left maxillary sinus is identified. The mastoid air cells and orbits are unremarkable. The major intracranial flow voids are maintained. IMPRESSION: Unremarkable MRI of the brain. SL: [id number] 06/23/2016 [facility] wo contrast CT Clinical Indication: Confusion t very weak and confused since midnight Comparison: None TECHNIQUE: CT images were obtained from the foramen magnum to the vertex without the use of intravenous contrast on a multidetector CT. Coronal and sagittal reconstructions were obtained. CT radiation dose DLP: 978.01 mGy-cm FINDINGS: BRAIN PARENCHYMA: There are otherwise normal granger-white interfaces, sulci and gyri. There are no focal mass lesions on this noncontrast head CT. There is no mass effect, midline shift or edema. There are no intra-axial or extra-axial fluid collections, intraventricular or intraparenchymal hemorrhage. The pineal, sellar, brainstem, cerebellum and skull base regions appear unremarkable. VENTRICLES: The lateral ventricles, third and fourth ventricles appear unremarkable. The basilar cisterns are normal. ORBITS, MASTOIDS AND PARANASAL SINUSES: The visualized orbits and paranasal sinuses are otherwise unremarkable. The mastoid air cells are unopacified. SKULL: There are no osseous abnormalities. If there is further concern for intracranial pathology or acute stroke, MRI of the brain may be performed for complete assessment. IMPRESSION: 1. Unremarkable noncontrast head CT with no CT evidence of a mass, hemorrhage, or subacute stroke. SL: [id number] 06/22/2016 [facility] Abdomen w/wo contrast MRI Abdomen w/wo contrast MRI 06/17/2016 4:58 PM RECEPTION AGENT Ordering Physician: Sadie Gleason MD CLINICAL INDICATION: Abdominal pain, acute; add MRCP sequence to the Pancreas protocol. -Sonu COMPARISON: CT torso day before TECHNIQUE: Multiplanar, multisequence magnetic resonance images of the abdomen were obtained without IV gadolinium contrast. Additional MRCP protocol sequences were obtained. Subsequent T1 fat-suppressed post-IV gadolinium contrast dynamic phase imaging was performed. FINDINGS: A 7 x 4.8 cm, fluid collection is present in the lesser sac superior to the pancreatic tail and impressing upon the gastric fundus and proximal body. A linear-appearing focal fluid collection grossly measuring 11 cm x 1.3 cm is present in the inferior edge of the greater curvature of the stomach. A complex debris-filled fluid collection measuring about 7 8 x 3.2 cm is present immediately superior to and possibly involving the pancreatic body. A complex debris-filled fluid collection measuring about 5.8 x 1.1 cm is present medially posterior to the pancreatic head and neck and superior to the distal duodenum. Complex debris-filled fluid collection measuring 1.7 cm is present in the pancreatic head. The remaining pancreatic head and uncinate process is heterogeneous with smaller serpiginous fluid collection like changes. Major pancreatic duct measures 4 to 5 mm in caliber. No internal enhancement is present within these peripancreatic and lesser sac fluid collections. No discrete hyperenhancing or delayed enhancing mass is visualized in the pancreas. Moderate peripancreatic and periduodenal fat stranding/edema is present. Trace perihepatic and perisplenic free fluid is present. Surrounding vasculature is patent. No lymphadenopathy is present. Extrahepatic biliary duct dilatation is present, with the common bile duct measuring 9 mm in greatest caliber, but with distal tapering. No choledocholithiasis is visualized. Gallbladder is contracted. An 8 x 6 mm gallstone is present in the gallbladder neck. No intrahepatic biliary duct dilatation is present. Small posterior right hepatic roughly 1 cm cyst is present. No enhancing lesion is present in the liver. Spleen, adrenal glands, and right kidney are normal. Left kidney demonstrates mild hydronephrosis and moderate hydroureter. However, normal bilateral renal symmetric perfusion, enhancement, and early excretion is demonstrated. IMPRESSION: 1. Probable changes of acute on chronic pancreatitis, with multiple pancreatic and peripancreatic and lesser sac pseudocysts, some of which contain internal complex debris. However, no enhancing soft tissue nodular mass component is associated with any of these cystic collections. 2. No discernible hyperenhancing or delayed enhancing pancreatic mass. A small insidious pancreatic head primary tumor or metastasis that is not discernible on CT or MRI is much less likely. 3. Probable consequential extrahepatic biliary duct dilatation. Negative for choledocholithiasis. 4. Cholelithiasis, with an 8 x 6 mm gallstone present within the gallbladder neck. 5. Mild left hydronephrosis and moderate left hydroureter without causing renal delayed perfusion or function, secondary to the adnexal complex cystic and solid mass not seen today, but seen on the CT torso from the day before. Probable ovarian/gynecologic neoplasm. Recommend gynecological consultation. SL: [id number] 06/17/2016 [facility] Transvag w Pelvis Doppler US Patient Name: CHIKA BOJORQUEZ : 1975; Age: 40 years y/o Female MR: [id number] 1 TRANSABDOMINAL PELVIC SONOGRAPHY. 2 TRANSVAGINAL PELVIC SONOGRAPHY. 3. DOPPLER STUDIES OF THE OVARIES. HISTORY: Pelvic pain. Pelvic masses. The computed tomography scan of the abdomen and pelvis performed yesterday were reviewed. TECHNIQUE: * Transabdominal pelvic ultrasound - the pelvis was evaluated utilizing a transabdominal approach with real-time sonography. * Transvaginal pelvic ultrasound - the pelvis was evaluated utilizing real-time sonography utilizing a transvaginal approach. * Doppler studies: Arterial (inflow) and venous (outflow) Doppler studies of the ovaries were performed with color flow Doppler and spectral Doppler. FINDINGS: The findings of the transabdominal pelvic ultrasound and transvaginal pelvic ultrasound will be reported together. IMPRESSION: 1. Two pelvic masses are noted. The origin of these masses appear to be from the uterus which will be described below. The computed tomography scan is felt to be more helpful regarding the origin of these masses. 2. There is an approximately 8 cm mass which appears to be within the uterus, possibly huge subserosal fibroid. A normal endometrial canal is not visualized. 3. There is an approximately 6 x 5 cm mass the right adnexal region which appears to have a stalk arising from the uterus and probably represents a pedunculated fibroid. 4. Due to the size and appearance of these lesions, particularly the larger lesion, leiomyosarcoma should be considered. 5. No other masses or fluid collections were seen. 6. The uterus measures 10.2 x 8.8 x 7.2 cm. 7. The right ovary was not visualized. The left ovary was visualized and unremarkable. The left ovary measures 3.2 x 3.2 x 1.9 cm. Good arterial and venous flow was noted within the left ovary. There is no evidence of left ovarian torsion. [facility] Chest/Abdomen/Pelvis w IV contrast CT Patient Name: CHIKA BOJORQUEZ : 1975; Age: 40 years Female MR: [id number] Study: Chest/Abdomen/Pelvis w IV contrast CT 06/15/2016 9:53 PM RECEPTION AGENT Clinical Indication: Abdominal pain, acute. pt had acute dysphagia, and pelvic mass, evluate for metastatic cancer. pt c/o rlq abd pain x 2 wks ago. pt dx with pancreatitis x 2 wks ago. x about 4 wks ago pt was able to do all her own adl's, now pt dx with pancreatitis, htn, and pt has had problems with n/v, problems eating, fatigue. pt told mass near ovary COMPARISON: 08/14/2012. Contrast amount/type: omni 100cc DLP:[id number] Technique: Multi-detector CT imaging of the chest, abdomen and pelvis is performed with contrast. Coronal and sagittal reconstructions were obtained. CT CHEST WITH CONTRAST: LUNG PARENCHYMA AND PLEURA: There are no infiltrates. There is no interstitial lung disease. There are no pleural effusions. There is no pneumothorax. AIRWAY: Minimal narrowing of the airway from thyroid enlargement. MEDIASTINUM: Subcentimeter AP window, lower paratracheal lymph nodes. The heart size is normal. There is normal aortic caliber. There is no aortic dissection. Diffuse thyromegaly previous described, incompletely evaluated. CT ABDOMEN AND PELVIS WITH CONTRAST: ABDOMEN: No free air. LIVER: Diffuse fatty change to the liver. Low-density lesion in the caudate lobe measures 9 mm stable to 08/14/2012 exam. BILIARY TREE: The common bile duct measures 12 mm. Minimal dilation of the pancreatic duct. GALLBLADDER: Normal. PANCREAS: Acute pancreatitis with multiple pseudocysts. Ventral midline pseudocyst measures 7.3 cm x 3.1 cm x 4.5 cm. Posterior complex pseudocyst measures 7.8 cm x 1.9 cm x 5.4 cm. Multiple smaller pseudocysts are identified with a pancreatic tail pseudocyst measuring 2.6 cm. SPLEEN: Normal. ADRENALS: Normal. KIDNEYS: No stones. Left hydronephrosis and hydroureter extending into the left adnexal mass. PELVIS: Left adnexal mass measures 8.9 cm x 9.8 cm x 8.9 cm. This contains a fluid fluid level. Right adnexal mass measures 5.2 cm x 5.9 cm x 5.4 cm. This process is felt to be uterine in origin as both ovaries appear to be normal. The bladder is mildly distended. BOWEL: Dilation of the proximal and mid small bowel with distal decompression of bowel loops. Mild degree of colonic stool. Normal appendix. PERITONEUM: Moderate degree of free fluid in the lower pelvis measuring 14 Hounsfield units. RETROPERITONEUM: The aorta is normal. There is no pathologic lymphadenopathy. MUSCULOSKELETAL: Reformatted images demonstrate maintained thoracic and lumbar vertebral body heights. 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 IMPRESSION: 1. Bilateral adnexal masses which are felt to be uterine in origin. The left-sided mass contains a fluid fluid level. The ovaries are felt to be normal. This likely represents necrosis of leiomyomas or leiomyosarcoma. The possibility of ovarian masses, torsion are not entirely excluded. 2. Left hydronephrosis and hydroureter extending into the left adnexal mass. 3. Pancreatitis with multiple complex pseudocysts. 4. Dilated common bile duct with minimal dilation of the pancreatic duct. This could be secondary to the underlying pancreatitis. The possibility of an ampullary obstructing mass is not excluded. 5. Proximal small bowel ileus or early small bowel obstruction. 6. Diffuse thyromegaly previous described, incompletely evaluated. 7. Minimal narrowing of the airway from thyroid enlargement. 8. Diffuse fatty change to the liver. 9. Low-density caudate lobe lesion measuring 9 mm stable to the 08/14/2012 exam. 10. Ascites. 11. 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 These findings are communicated to Zafar Newman MD at 06/16/2016 3:28 AM RECEPTION AGENT. SL: MONI 06/16/2016 [facility] Consultation Notes No Data Provided for This Section Discharge Summaries No Data Provided for This Section History and Physicals No Data Provided for This Section Vital Signs Vital Sign Value Date Comments Source Systolic (mm Hg) 121 09/02/2018 [facility] Diastolic (mm Hg) 80 09/02/2018 [facility] Respitory Rate 18 09/02/2018 [facility] Heart Rate 92 09/02/2018 [facility] Temperature Oral (F) 98 F 09/02/2018 [facility] Respitory Rate 18 09/02/2018 [facility] Systolic (mm Hg) 121 09/02/2018 [facility] Diastolic (mm Hg) 79 09/02/2018 [facility] Heart Rate 87 09/02/2018 [facility] Temperature Oral (F) 97.9 F 09/02/2018 [facility] Systolic (mm Hg) 116 09/02/2018 [facility] Diastolic (mm Hg) 77 09/02/2018 [facility] Heart Rate 87 09/02/2018 [facility] Respitory Rate 18 09/02/2018 [facility] Temperature Oral (F) 98 F 09/02/2018 [facility] Height 154.9 cm 09/02/2018 [facility] BMI Calculated 22.93 09/02/2018 [facility] Weight 55.008 09/02/2018 [facility] Weight 55.3 09/01/2018 [facility] BMI Calculated 23.04 09/01/2018 [facility] Height 154.94 cm 09/01/2018 [facility] Respitory Rate 23 10/30/2017 [facility] Respitory Rate 24 10/30/2017 [facility] Systolic (mm Hg) 110 10/30/2017 [facility] Diastolic (mm Hg) 71 10/30/2017 [facility] Respitory Rate 24 10/30/2017 [facility] Systolic (mm Hg) 121 10/30/2017 [facility] Diastolic (mm Hg) 53 10/30/2017 [facility] Systolic (mm Hg) 117 10/30/2017 [facility] Diastolic (mm Hg) 87 10/30/2017 [facility] Heart Rate 182 10/30/2017 [facility] Weight 46.364 10/30/2017 [facility] BMI Calculated 19.31 10/30/2017 [facility] Heart Rate 155 10/30/2017 [facility] Height 154.94 cm 10/30/2017 [facility] Temperature Oral (F) 97.9 F 10/30/2017 [facility] Systolic (mm Hg) 128 10/07/2017 [facility] Diastolic (mm Hg) 88 10/07/2017 [facility] Heart Rate 96 10/07/2017 [facility] Temperature Oral (F) 36.67 Keri 10/07/2017 [facility] Respitory Rate 18 10/07/2017 [facility] Height 154.9 cm 10/07/2017 [facility] Weight 49.351 10/07/2017 [facility] Respitory Rate 16 03/20/2017 [facility] Heart Rate 92 03/20/2017 [facility] Systolic (mm Hg) 116 03/20/2017 [facility] Diastolic (mm Hg) 78 03/20/2017 [facility] Temperature Oral (F) 98.0 F 03/20/2017 [facility] Heart Rate 82 03/20/2017 [facility] Temperature Oral (F) 98.0 F 03/20/2017 [facility] Systolic (mm Hg) 108 03/20/2017 [facility] Diastolic (mm Hg) 69 03/20/2017 [facility] Respitory Rate 16 03/20/2017 [facility] Weight 37.756 03/20/2017 [facility] Respitory Rate 16 03/20/2017 [facility] Systolic (mm Hg) 103 03/20/2017 [facility] Diastolic (mm Hg) 65 03/20/2017 [facility] Heart Rate 91 03/20/2017 [facility] Temperature Oral (F) 98.1 F 03/20/2017 [facility] Weight 38.185 03/19/2017 [facility] Weight 37.33 03/17/2017 [facility] Height 154.94 cm 03/10/2017 [facility] BMI Calculated 14.79 03/10/2017 [facility] BMI Calculated 15.15 03/10/2017 [facility] Height 154.94 cm 03/10/2017 [facility] Respitory Rate 20 12/29/2016 [facility] Respitory Rate 17 12/29/2016 [facility] Systolic (mm Hg) 102 12/29/2016 [facility] Diastolic (mm Hg) 63 12/29/2016 [facility] Respitory Rate 19 12/29/2016 [facility] Systolic (mm Hg) 110 12/29/2016 [facility] Diastolic (mm Hg) 58 12/29/2016 [facility] Systolic (mm Hg) 110 12/29/2016 [facility] Diastolic (mm Hg) 62 12/29/2016 [facility] Temperature Oral (F) 98.3 F 12/29/2016 [facility] Temperature Oral (F) 98 F 12/29/2016 [facility] Temperature Oral (F) 98.2 F 12/28/2016 [facility] Height 154.94 cm 12/27/2016 [facility] Height 154.94 cm 12/27/2016 [facility] Weight 44.9 12/27/2016 [facility] BMI Calculated 18.7 12/27/2016 [facility] Weight 44.9 12/27/2016 [facility] Temperature Oral (F) 98.7 F 09/22/2016 [facility] Heart Rate 84 09/22/2016 [facility] Systolic (mm Hg) 107 09/22/2016 [facility] Diastolic (mm Hg) 71 09/22/2016 [facility] Respitory Rate 18 09/22/2016 [facility] Heart Rate 89 09/21/2016 [facility] Systolic (mm Hg) 121 09/21/2016 [facility] Diastolic (mm Hg) 81 09/21/2016 [facility] Respitory Rate 17 09/21/2016 [facility] Temperature Oral (F) 98.7 F 09/21/2016 [facility] Temperature Oral (F) 98.5 F 09/21/2016 [facility] Respitory Rate 19 09/21/2016 [facility] Heart Rate 81 09/21/2016 [facility] Systolic (mm Hg) 115 09/21/2016 [facility] Diastolic (mm Hg) 71 09/21/2016 [facility] Weight 41.818 09/16/2016 [facility] Height 157.48 cm 09/11/2016 [facility] Weight 41.364 09/10/2016 [facility] Height 157.48 cm 09/10/2016 [facility] BMI Calculated 16.68 09/10/2016 [facility] Systolic (mm Hg) 138 09/10/2016 [facility] Diastolic (mm Hg) 86 09/10/2016 [facility] Respitory Rate 18 09/10/2016 [facility] Temperature Oral (F) 97.5 F 09/10/2016 [facility] Heart Rate 103 09/10/2016 [facility] Respitory Rate 18 09/10/2016 [facility] Systolic (mm Hg) 117 09/10/2016 [facility] Diastolic (mm Hg) 75 09/10/2016 [facility] Temperature Oral (F) 97.9 F 09/10/2016 [facility] Heart Rate 99 09/10/2016 [facility] Systolic (mm Hg) 121 09/10/2016 [facility] Diastolic (mm Hg) 85 09/10/2016 [facility] Heart Rate 98 09/10/2016 [facility] Respitory Rate 16 09/10/2016 [facility] Temperature Oral (F) 97 F 09/10/2016 [facility] Weight 50 08/25/2016 [facility] Weight 50 08/24/2016 [facility] BMI Calculated 20.83 08/24/2016 [facility] Height 154.94 cm 08/24/2016 [facility] Respitory Rate 21 08/24/2016 [facility] Systolic (mm Hg) 108 08/23/2016 [facility] Diastolic (mm Hg) 72 08/23/2016 [facility] Respitory Rate 21 08/23/2016 [facility] Systolic (mm Hg) 100 08/23/2016 [facility] Diastolic (mm Hg) 81 08/23/2016 [facility] Respitory Rate 21 08/23/2016 [facility] Temperature Oral (F) 98.2 F 08/23/2016 [facility] Systolic (mm Hg) 124 08/23/2016 [facility] Diastolic (mm Hg) 90 08/23/2016 [facility] Temperature Oral (F) 98.1 F 08/23/2016 [facility] Temperature Oral (F) 100.2 F 08/23/2016 [facility] Weight 50.909 08/21/2016 [facility] Heart Rate 150 08/21/2016 [facility] Heart Rate 147 08/20/2016 [facility] Heart Rate 125 08/20/2016 [facility] Height 154.94 cm 08/18/2016 [facility] BMI Calculated 21.31 08/18/2016 [facility] Weight 51.165 08/18/2016 [facility] Temperature Oral (F) 99.4 F 08/17/2016 [facility] Heart Rate 111 08/17/2016 [facility] Respitory Rate 18 08/17/2016 [facility] Systolic (mm Hg) 114 08/17/2016 [facility] Diastolic (mm Hg) 76 08/17/2016 [facility] Temperature Oral (F) 98.4 F 08/17/2016 [facility] Respitory Rate 19 08/17/2016 [facility] Heart Rate 101 08/17/2016 [facility] Systolic (mm Hg) 117 08/17/2016 [facility] Diastolic (mm Hg) 76 08/17/2016 [facility] Temperature Oral (F) 99.1 F 08/17/2016 [facility] Systolic (mm Hg) 109 08/17/2016 [facility] Diastolic (mm Hg) 76 08/17/2016 [facility] Heart Rate 110 08/17/2016 [facility] Respitory Rate 18 08/17/2016 [facility] Weight 60 07/17/2016 [facility] Weight 143 07/15/2016 [facility] Weight 65 07/14/2016 [facility] Height 154.94 cm 07/05/2016 [facility] BMI Calculated 27.08 07/05/2016 [facility] Systolic (mm Hg) 114 07/05/2016 [facility] Diastolic (mm Hg) 72 07/05/2016 [facility] Respitory Rate 18 07/05/2016 [facility] Heart Rate 92 07/05/2016 [facility] Temperature Oral (F) 98.0 F 07/05/2016 [facility] Respitory Rate 18 07/05/2016 [facility] Temperature Oral (F) 98.2 F 07/05/2016 [facility] Heart Rate 100 07/05/2016 [facility] Systolic (mm Hg) 109 07/05/2016 [facility] Diastolic (mm Hg) 72 07/05/2016 [facility] Systolic (mm Hg) 100 07/05/2016 [facility] Diastolic (mm Hg) 60 07/05/2016 [facility] Respitory Rate 18 07/05/2016 [facility] Heart Rate 73 07/05/2016 [facility] Temperature Oral (F) 98.7 F 07/05/2016 [facility] BMI Calculated 20.62 06/16/2016 [facility] Weight 49.5 06/16/2016 [facility] Height 154.94 cm 06/16/2016 [facility] Weight 51.364 06/16/2016 [facility] BMI Calculated 20.06 06/16/2016 [facility] Height 160.02 cm 06/16/2016 [facility] Encounters Location Location Details Encounter Type Encounter Number Reason For Visit Attending Provider ADM Date DC Date Status Source [facility] Inpatient [id number] Tim Edmonds 06/16/2016 07/05/2016 [facility] Inpatient [id number] Lacho Sofiaherbert 07/05/2016 08/17/2016 [facility] Inpatient [id number] Tim Grey 08/18/2016 08/24/2016 [facility] Inpatient [id number] Tim Grey 08/24/2016 09/10/2016 [facility] Inpatient [id number] Tim Grey 09/10/2016 09/22/2016 [facility] Inpatient [id number] Walter Jim 12/27/2016 12/29/2016 [facility] Inpatient [id number] Darien Queen 03/10/2017 03/20/2017 [facility] Discharged Inpatient [id number] AFSANEH CHAMBERLAIN MD 07/31/2017 08/03/2017 [facility] Registered Surgical Day [facility] [id number] JANETH THOMPSON MD 08/16/2017 [facility] Discharged Inpatient (obs) [id number] AFSANEH CHAMBERLAIN MD 09/01/2017 09/03/2017 [facility] Gynecology [facility] [place] Office Visit [id number] Jarvis Marx MD 09/23/2017 09/23/2017 [facility] LABORATORY Hospital Encounter [id number] Jarvis Marx MD 09/23/2017 09/24/2017 [facility] Gynecology Clinic [place] Orders Only [id number] Lashon Ochoa ResidentMD 09/24/2017 [facility] Ultrasound [facility] Hospital Encounter [id number] 09/24/2017 09/25/2017 [facility] Gynecology Clinic [place] Orders Only [id number] Lashon Ochoa ResidentMD 09/25/2017 [facility] 4A Med/Surg (4A/M) [facility] Hospital Encounter [id number] Lamar Hinojosa MD 09/27/2017 09/30/2017 [facility] Gynecology Clinic [place] Office Visit [id number] Jarvis Marx MD 10/07/2017 10/07/2017 [facility] Departed Emergency Room [id number] ALEXEI RUSSELL MD 10/18/2017 10/19/2017 [facility] Departed Emergency Room [id number] MERRILL BECKETT MD 10/23/2017 10/24/2017 [facility] Emergency [id number] Susana Nicoleooqi 10/30/2017 10/30/2017 [facility] Urology Clinic Office Visit [id number] 04/08/2018 04/08/2018 [facility] Departed Emergency Room [id number] PATRICIA WINSTON MD 04/20/2018 04/20/2018 [facility] Oncology C Recurring [id number] Nya Mancilla 09/01/2018 10/01/2018 [facility] Outpatient Imaging [place] [facility] [id number] Nya Carrizalesgent 09/04/2018 09/05/2018 [facility] [place] Procedures Procedure Code Date Perfomer Comments Source GLUCOSE POC 74941 09/30/[facility] 21620 09/30/2017 [facility] BASIC METABOLIC PANEL 22343 09/30/2017 [facility] CBC/DIFF 01988 09/30/2017 [facility] MRI PANCREAS W/O CONTRAST 75217 09/30/2017 [facility] GLUCOSE POC 14684 09/30/2017 [facility] GLUCOSE POC 50937 09/30/2017 [facility] GLUCOSE POC 03579 09/29/2017 [facility] IRON PROFILE [id number] 09/29/2017 [facility] HAPTOGLOBIN [id number] 09/29/2017 [facility] FOLIC ACID [id number] 09/29/2017 [facility] LDH [id number] 09/29/2017 [facility] RETIC COUNT [id number] 09/29/2017 [facility] VITAMIN B12 [id number] 09/29/2017 [facility] FERRITIN [id number] 09/29/2017 [facility] CBC/DIFF [id number] 09/29/2017 [facility] PATHOLOGIST REVIEW [id number] 09/29/2017 [facility] GLUCOSE POC 84244 09/29/2017 [facility] CBC/DIFF [id number] 09/29/[facility] [place] BASIC METABOLIC PANEL 49976 09/29/2017 [facility] [place] GLUCOSE POC 55821 09/29/2017 [facility] VANCOMYCIN, TROUGH 04123 09/29[facility] 18401 09/[facility] 01996 09/28/2017 [facility] GLUCOSE POC 97668 09/28/2017 [facility] CBC/DIFF 58273 09/28/2017 [facility] BASIC METABOLIC PANEL 13233 09/28/2017 [facility] LIVER PROFILE 09525 09/28/2017 [facility] PHOSPHORUS 84711 09/28/2017 [facility] MAGNESIUM 45837 09/28/2017 [facility] GLUCOSE POC 14477 09/28/2017 [facility] GLUCOSE POC 81021 09/28/2017 [facility] VANCOMYCIN, TROUGH 65116 09/28/2017 [facility] VANCOMYCIN, TROUGH 36687 09/28/2017 [facility] THYROID STIM IMMUN 94016 09/28/2017 [facility] [place] ([place]) [place] [address] 09/28/2017 [facility] TOTAL T3 40909 09/28/2017 [facility] GLUCOSE POC 89596 09/28/2017 [facility] U/S THYROID/NECK 92630 09/28/2017 [facility] GLUCOSE POC 97921 09/28/2017 [facility] U/S ABDOMEN 55902 09/28/2017 [facility] URINE DRUG SCREEN 79886 09/27/2017 [facility] INFUSION PUMP [id number] 09/27/2017 [facility] CBC/DIFF 12466 09/27/2017 [facility] COMPREHENSIVE METABOLIC PANEL(DBIL NOT INCLUDED) 72245 09/27/2017 [facility] PT/INR/PTT 90446 09/27/2017 [facility] HEPATITIS PANEL 27548 09/27/2017 [facility] BEDSIDE ULTRASOUND [id number] 09/27/2017 [facility] VBG POC 59494 09/27/2017 [facility] XRAY CHEST 1 VIEW 53386 09/27/2017 [facility] BMP POC 79169 09/27/2017 [facility] VBG POC 87244 09/27/2017 [facility] BLOOD CULTURE 91120 09/27/2017 [facility] URINE CULTURE 90788 09/27/2017 [facility] CBC/DIFF 49641 09/27/2017 [facility] UA CHEMISTRIES 04669 09/27/2017 [facility] TSH 37590 09/27/2017 [facility] FREE T4 99032 09/27/2017 [facility] 12 LEAD EKG 19853 09/27/2017 [facility] U/S TRANSVAGINAL 98839 09/25/2017 [facility] U/S PELVIS NON-OB 66118 09/25/2017 [facility] URINE CULTURE 26597 09/24/2017 [facility] UA CHEMISTRIES 78666 09/24/2017 [facility] TSH 07460 09/24/2017 [facility] FREE T4 08653 09/24/2017 [facility] HEMOGLOBIN A1C 49008 09/24/2017 [facility] HIV-1/HIV-2 DIAGNOSTIC/SYMPTOMATIC 02907 09/24/2017 [facility] SYPHILIS SCREEN FOR INFECTION 32737 09/24/2017 [facility] CHLAM/GC DNA AMPLI 40777 09/24/2017 [facility] HPV HIGH-RISK 14859 09/24/2017 [facility] CLARISSA STAIN 77671 09/24/2017 [facility] WET MOUNT 62608 09/24/2017 [facility] CYTOLOGY PATHOLOGY 70980 09/24/[address] [facility] [address] of abdomen and pelvis without contrast [id number] 08/31/2017 [facility] CYSTOSCOPY AND TREATMENT 90138 08/16/2017 [facility] Computed tomography of abdomen and pelvis with contrast [id number] 07/31/2017 [facility] Image-guided fluid collection drainage by catheter (eg, abscess, hematoma, seroma, lymphocele, cyst); peritoneal or retroperitoneal, percutaneous 69686 08/27/2016 [facility] Cholecystectomy [id number] 07/29/2016 [facility] Cholecystectomy [id number] 07/29/2016 [facility] Cholecystectomy [id number] 07/29/2016 [facility] Tubal ligation [id number] [facility] Tub[facility] ligation [id number] [facility] Tubal ligation [id number] [facility] Tubal ligation [id number] AAKASH Crow Assessment and Plan Assessment and Plan Date Source Extracted from:Title: Clinical Document Author: Darien Queen MD Date: 03/20/17 Date of discharge: 03/20/2017. Date of admission: 03/09/2017. Discharge diagnosis 1. Abdominal pain due to uterine fibroids 2. Hyper thyroidism and thyrotoxicosis. Hospital course Chika is a 41-year-old woman past medical history of pancreatitis and uterine fibroid who presented with tachycardia in the 150s and leukocytosis concerning for urinary tract infection and thyrotoxicosis. The patient was treated with methimazole and beta blockers that improved her symptoms. She was treated empirically for urinary tract infection but cultures have been negative. Abdominal pain was evaluated using CT scan which showed large uterine fibroids with left-sided hydronephrosis. As her symptoms of thyrotoxicosis improved gynecology was consulted for evaluation of uterine mass. On the day of discharge I did examine and interview the patient. I also discussed the case with gynecology attending. The plan is not to do any surgery for the uterine fibroids as inpatient. Patient is to follow-up with outpatient gynecology clinic. As her thyrotoxicosis symptoms have improved and her vitals are stable, the patient will be discharged home to be followed up with primary care physician. Complicating her stay was poorly controlled blood sugar. She was started on scheduled insulin that improved this problem also. Discharge condition: Fair Discharge to: Home Activity as tolerated Diet: Diabetic diet Follow-up with gynecology and primary care physician for evaluation of uterine fibroids and hyperglycemia. Discharge medications: Please see discharge medicine reconciliation form Extracted from:Title: Clinical Document Author: Nya Mancilla MD Date: 03/20/17 Progress Note - Daily [facility] Completed: Saturday, MAR 20, 2017, 12:38 by Nya Mancilla MD RM: [address] - [address]P, [address] C[address]B CHIKA BOJORQUEZ 41y (: 1975) F Attending: Darien Queen MD Service: Internal Medicine Reason for Admission: ABDOMINAL PAIN, SINUS TACHYCARDIA Working DRG: Septicemia or severe sepsis w/o MV 96+ hours w [facility] Code status: None Specified=FULL CODE Current diet: Isolation: None Documented Allergies: Ancef, Keflex(Rash, NOS), ciprofloxacin SUBJECTIVE Pt feelingrelatively well Desires to go home. No SOB/CP/N/V Pain relatively well controlled. OBJECTIVE General- NAD, A&Ox3 Extremities- no CCE Skin- No rashes or lesions appreciated 24hr Labs 03/20 1150 Glucose POC 245 H 03/20 0741 Glucose POC 151 H 03/19 2102 Glucose POC 268 H 03/19 1627 Glucose POC 277 H 03/19 1136 Glucose POC 279 H Schulz still necessary (Yes/No): Line still necessary (Yes/No): Vitals Tmp(F) Pulse BP RR SpO2 FIO2 03/20 11:41 98.0 92 116/78 16 --- --- 03/20 07:48 98.0 82 108/69 16 --- --- 03/20 03:47 98.1 91 103/65 16 --- --- 03/19 23:05 98.2 101 125/78 18 --- --- 03/19 19:41 98.2 92 104/60 16 --- --- 24 Hr Tmax: 98.2F (36.78c) at 03/19 23:05 Vital Signs are the last 5 in the past 48 hours. Date Wt(kg) Wt(lb) Ht(cm) Ht(in) Method 03/20 37.76 83.06 Measured 03/19 38.19 84.01 Measured 03/18 37.45 82.40 Measured 03/17 37.33 82.13 Measured 03/16 36.59 80.50 Measured 03/09 (initial) 36.36 80.00 Estimated 03/09 154.94 61.00 Stated I&O Record In Out Bal 03/20 24hr Tot 750 0 750 03/19 24hr Tot 750 0 750 Medications (23) Active Scheduled Meds (7): 03/10/17 enoxaparin 40 mg SUB-Q [id number] 03/11/17 insulin aspart 3 unit SUB-Q TID-Before Meals 03/15/17 insulin glargine 8 unit SUB-Q Bedtime 0 ml/hr 03/10/17 methimazole 10 mg PO Q8H 03/16/17 metoprolol (metoprolol tartrate) 25 mg PO BID 03/11/17 nutritional supplement (Beneprotein 7 gm pkt) 1 pkt PO TID-Meals 03/10/17 sodium chloride (Saline Flush 0.9%) 10 ml IVP Q12H Unscheduled Meds: None PRN Meds (15): 03/11/17 Dextrose 50% in Water IV (Dextrose 50% Syringe) 12.5 gm IVP PRN 03/11/17 Dextrose 50% in Water IV (Dextrose 50% Syringe) 25 gm IVP PRN 03/10/17 acetaminophen-hydrocodone ([place] 5/325 oral tablet) 1 tab PO Q6H 03/10/17 acetaminophen-hydrocodone ([place] 10/325 oral tablet) 1 tab PO Q6H 03/11/17 famotidine 20 mg PO Q12H 03/11/17 glucagon 1 mg IM PRN 03/11/17 insulin aspart 1 unit SUB-Q TID-Before Meals 03/11/17 insulin aspart 2 unit SUB-Q TID-Before Meals 03/11/17 insulin aspart 3 unit SUB-Q TID-Before Meals 03/11/17 insulin aspart 4 unit SUB-Q TID-Before Meals 03/11/17 insulin aspart 5 unit SUB-Q TID-Before Meals 03/10/17 morphine Sulfate 1 mg IVP Q2H 03/10/17 morphine Sulfate 2 mg IVP Q4H 03/10/17 nystatin topical (nystatin topical 100,000 units/g powder) 1 appl TOP PRN 03/09/17 sodium chloride (Saline Flush 0.9%) 10 mL IVP PRN One Time Meds: None Continuous Infusions (1): 03/15/17 sodium chloride 0.9% 1000 ml INJ 1,000 mL 1,000 mL 125 ml/hr ASSESSMENT and EXAM Discussed with patient surgery at this time or in the future. She will come as an outpatient to see us in the office to determine plan of care. We discussed that she must be cleared of her pyelonephritis and her blood glucose needs to be less than 200 at all times prior to elective removal of the uterus. Will follow up with patient as an outpatient in the next few weeks. Nya Mancilla MD Gynecologic Oncology Staff [phone] Extracted from:Title: Progress Note * Author: Alyssa Castellanos MD Date: 03/19/17 Impression and Plan --Hyperthyroidism, thyrotoxicosis resolved. -Uncontrolled, improving, but asymptomatic currently -TSH <0.005, FT4 3.1, will continue methimazole and monitor --Diabetes mellitus, type II, likely insulin-dependent. DKA resolved -Unontrolled but improving, glucose ranged from 68-213, very hyperdynamic -We will cont insulin detemir 10U, medium dose sliding scale, titrate up slowly -We will continue to check POC glucose q. before meals at bedtime 3 times daily and titrate as needed -Carbohydrate diet --tachycardia. likely 2/2 hyperthyroidism. -Controlled on metoprolol 25mg BID --Pyelonephritis, resolved --Malnutrition, Nutrition following --Uterine Mass -Management by GynOncology, pending medical managemnt prior to surgery -We will discuss today if surgical intervention is planned for this admission and if patient is to remain inpatient for further monitoring, if not patient can be discharged home with follow-up, pending follow-up recommendations Code: FULL Diet:Carb controlled Ppx: Lovenox 40U qD / SCDTEDS Dispo: At this point blood sugars are not perfectly controlled, however may be at the best they will be this admission. Given the wide range from hypoglycemia to hyperglycemia, likely the we will be able to increase insulin therapy any further. if not planning for procedure and stable discharge home with follow-up. Gynecology has been contacted pending their recommendations as to when surgical procedure will take place patient is to be kept inpatient. Otherwise she is clear for discharge. Patient seen by Alyssa Castellanos MD Internal Medicine Hospitalist Extracted from:Title: Clinical Document Author: Alexandru Frankel MD Date: 03/10/17 Consult Note Gastroenterology and Hepatology Reason for Consult: Enlarging pancreatic pseudocyst IMPRESSION: Pancreatic pseudocysts, increasing size, status post prior stent and removal; no evidence clinically of symptoms from pseudocyst No abdominal pain secondary UTI Thyrotoxicosis Noncompliance with medication Cachexia malnutrition RECOMMENDATIONS AND PLAN: Continue present management for UTI and thyrotoxicosis. Review imaging and options for pseudocyst intervention subsequently Emphasize need to comply with medications as prescribed though she remains reluctant to take pancreatic enzyme supplements. HPI: Ms. Bojorquez is a pleasant 41-year-old female known to our service from initial hospitalization in May 2016, with a history of severe complicated biliary pancreatitis. Patient's problems date back to 05/23 when she was admitted to patients [facility] with failure to thrive symptoms and was subsequently diagnosed with thyrotoxicosis storm as well as acute pancreatitis. . She denies any history of alcohol intake. Her phlegmonous pancreatitis was complicated by pancreatic fluid collections as well as large cysts in the retroperitoneal area. In addition, her course was also complicated by thyrotoxicosis as well as uterine fibroid tumor for which an outpatient hysterectomy was recommended but for various reasons including her comorbidities has not been done.. 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 She underwent an endoscopic cystogastrostomy with Axios stent placed in a smaller perigastric cyst on 08/13/2016; then on 08/23/2016 she underwent a ERCP with removal of common bile duct stones, requiring lithotripsy. The pancreatic duct appeared completely disrupted and deep cannulation for stent placement could not be obtained at that time. Interventional radiology procedure with drainage of the retroperitoneal cyst was done at the same time. The patient received nasoenteric feeding as well as TPN for a prolonged time. On 09/12/16 she underwent another ERCP, removal of residual bile duct micro- calculi, placement of a pancreatic duct stent to bridge the disrupted duct, and removal of the previously placed Axios stent. In 10/2016, at [facility], the pancreatic duct stent was removed electively. With regard to GI symptoms the patient has been doing pain fairly well since the last intervention, denies any upper abdominal pain, nausea or vomiting. Oral intake is still sparse, though she has gained some weight. She declines to take the prescribed pancreatic enzyme supplements. Has not had a cholecystectomy . She presented here with lower abdominal pain and appears to have another urinary tract infection. She denies any diarrhea, hematochezia, has had formed stools. She has undergone ureteric stent placements, most recently in 01/12. She also appears to have thyrotoxicosis and is tachycardic. In the ICU for this and is otherwise stable. Blood work shows electrolyte derangement which is being corrected with hyponatremia hypokalemia mild metabolic acidosis, hyperglycemia, with elevated AST 45 normal ALT 34 alk phos elevated 184 bilirubin 0.8. Lipase 320. Free T4 was 7.63 with TSH less than 0.005 drug screen positive for opiate hemoglobin was initially 15.3 down to 11.2 with IV fluids, no manifest bleeding, WBC 6.9 platelets 230. Urine analysis showed large leukocyte esterase and greater than 182 WBC per high-power field, glycosuria moderate blood and ketones and protein. Urine and blood cultures are pending no growth so far. Patient has been started on intravenous meropenem and is on a esmolol infusion for rate control, has been started on propranolol and methimazole. PMH: Diabetes mellitus. Goiter with thyrotoxicosis. GERD. Acute biliary pancreatitis with necrosis and subsequent pseudocysts as above. Recurrent UTIs/pyelonephritis. Uterine fibroids. History of cholelithiasis. Hydronephrosis with stent placement PSH: Tubal ligation Multiple ureteric stent placements PSYCHO-SOCIAL: Sexual Details: Sexually active: Yes. Alcohol Details: Never Tobacco Details: Use: Former smoker. Type: Cigarettes. Ready to change: No. Household tobacco concerns: No. Tobacco smoke exposure: None. Other Tobacco Frequency 07/05/2014 Quit. Did the Patient Smoke Cigarettes Anytime During the Last 365 Days? No. Cessation Counseling Provided? No. Substance Abuse Details: Use: None. FAMILY HISTORY: Mother: Type 2 diabetes mellitus Grandparent: Heart attack; Stroke Medication List Active Medications Ordered acetaminophen-hydrocodone: 1 tab, PO, Q6H, PRN: Pain Score 1-5. acetaminophen-hydrocodone: 1 tab, PO, Q6H, PRN: Pain Score 6-10. enoxaparin: 40 mg, 0.4 mL, SUB-Q, [id number]. esmolol-NS 2,500 mg: Titrate, IV, Stop: 04/08/17 20:28:00 CDT. famotidine: 20 mg, 2 mL, IVP, Q12H. insulin aspart: 2 unit, 0.02 mL, SUB-Q, TID-Before Meals, PRN: Blood Glucose Results. insulin aspart: 4 unit, 0.04 mL, SUB-Q, TID-Before Meals, PRN: Blood Glucose Results. insulin aspart: 6 unit, 0.06 mL, SUB-Q, TID-Before Meals, PRN: Blood Glucose Results. insulin aspart: 8 unit, 0.08 mL, SUB-Q, TID-Before Meals, PRN: Blood Glucose Results. insulin aspart: 10 unit, 0.1 mL, SUB-Q, TID-Before Meals, PRN: Blood Glucose Results. methimazole: 10 mg, 1 tab, PO, Q8H. morphine Sulfate: 1 mg, 0.5 mL, IVP, Q2H, PRN: Pain Score 7-10. morphine Sulfate: 2 mg, 1 mL, IVP, Q4H, PRN: Other -See Comment. mupirocin topical: 1 appl, NASAL, Q12H. nystatin topical: 1 appl, TOP, PRN, PRN: For Fungal Prophylaxis. pancrelipase: 1 cap, PO, TID-Before Meals. propranolol: 20 mg, 1 tab, PO, TID. sodium chloride: 10 mL, IVP, PRN, PRN: Line Flush. sodium chloride: 10 ml, IVP, Q12H. Suspended glimepiride: 4 mg, 1 tab, PO, Breakfast, 30 tab, 0 Refill(s). methimazole: 10 mg, PO, Q8H, 90 tab, 0 Refill(s). pancrelipase: 1 cap, PO, TID-Before Meals, 90 cap, 0 Refill(s). propranolol: 20 mg, 1 tab, PO, TID, 90 tab, 0 Refill(s). Allergies: Ancef, Keflex(Rash, NOS), ciprofloxacin Review of Systems: NEGATIVE unless bold General: weight loss, loss of appetite, fever, chills, excessive malaise, fatigue, generalized weakness HEENT : recent change in vison, eye pain, diplopia, epistaxis, sinus pain, sore throat, throat pain, acute hearing loss, ear pain or discharge RESPIRATORY: shortness of breath, hemoptysis, cough, wheezing, pleuritic pains CVS: chest pain, palpitations, irregular heart beat, low extremity swelling, heart murmurs GI: see HPI : hematuria, dysuria, incontinence,urinary frequency, impaired urine flow. recurrent UTIs MS: acute arthritis, back pain, joint swelling, gout Neurological: acute altered mentation, headaches, recent seizures, falls, recent loss of consciousness, gait problems, focal limb weakness, numbness, tingling , paraesthesia Endocrine: polydypsia, polyuria, unusual hair loss Immunological/ Hematological; acute bleeding, easy bleeding or bruising, lymph node swelling, recurrent infections Psychiatric: hallucinations. psychosis, confusion, depression, suicidal ideation Integument: rash, jaundice, generalized Physical Examination: Vital signs as below. NAD thin cachectic appearing lady in no acute distress HEENT: normal, EOMI, atraumatic, no asymmetry; neck supple, no LN/mass/ bruits, JVD neg; prominent goiter. Chest: CTA, resonant to percussion, no accessory muscle use Cardiac: regular rhythm, normal S1 and S2; apex not displaced, no edema Abdo: Soft, not distended, scaphoid . Mild tenderness lower abdomen no mass, no ascites, no hernia, normal BS, no bruits Ext: No cyanosis, clubbing; peripheral pulses palpable Neuro: A and O x3, grossly intact cranial nerves; non-focal exam. MS: Normal Recent Labs/Radiology reviewed Vitals Tmp(F) Pulse BP RR SpO2 FIO2 03/10 13:00 ---- 96 121/82 23 99 --- 03/10 12:30 ---- 92 116/78 21 100 --- 03/10 12:00 ---- 92 112/78 20 99 --- 03/10 11:30 ---- 88 111/71 13 99 --- 03/10 11:00 ---- 98 110/70 29 99 --- 24 Hr Tmax: 98.5F (36.94c) at 03/10 04:00 Vital Signs are the last 5 in the past 48 hours. Date Wt(kg) Wt(lb) Ht(cm) Ht(in) Method 03/10 35.50 78.10 154.94 61.00 Measured 03/09 (initial) 36.36 80.00 Estimated 03/09 154.94 61.00 Stated Labs (Last four charted values) WBC 5.7 (MAR 10) 6.2 (MAR 10) 6.9 (MAR 09) Hgb L 11.2 (MAR 10) L 11.1 (MAR 10) 15.3 (MAR 09) Hct L 34.4 (MAR 10) L 33.1 (MAR 10) 46.6 (MAR 09) Plt 187 (MAR 10) 174 (MAR 10) 230 (MAR 09) Na L 132 (MAR 10) 135 (MAR 10) L 132 (MAR 10) L 127 (MAR 09) K 4.7 (MAR 10) L 3.3 (MAR 10) C 3.0 (MAR 10) H 5.3 (MAR 09) CO2 L 23 (MAR 10) 24 (MAR 10) L 22 (MAR 10) L 19 (MAR 09) Cl 102 (MAR 10) 102 (MAR 10) 97 (MAR 10) L 90 (MAR 09) Cr L 0.32 (MAR 10) L 0.40 (MAR 10) L 0.30 (MAR 10) L 0.41 (MAR 09) BUN 11 (MAR 10) 9 (MAR 10) 11 (MAR 10) 18 (MAR 09) Glucose Random H 279 (MAR 10) 73 (MAR 10) H 319 (MAR 10) H 234 (MAR 09) Mg L 1.2 (MAR 10) L 1.3 (MAR 10) L 1.2 (MAR 10) L 1.4 (MAR 09) Phos 2.7 (MAR 10) 2.9 (MAR 10) Ca L 8.4 (MAR 10) 8.7 (MAR 10) L 8.3 (MAR 10) 9.7 (MAR 09) Troponin <0.02 (MAR 09) CK MB 3.1 (MAR 09) Total CK 53 (MAR 09) 03/20/2017 [facility] Extracted from:Title: 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 Jackson CONSULTING PHYSICIAN: Dr. Mancilla REASON FOR CONSULTATION: Fibroid uterus CHIEF COMPLAINT: Urosepsis with malfunctioning ureteral stent HISTORY OF PRESENT ILLNESS: Patient is a 40-year-old G4, P3-0-1-3 who came in for hyperglycemia and urosepsis like symptoms. She has multiple medical comorbidities including DM, pancreatitis, L ureteral stent, hyperthyroidism, goiter. She was found on serial CT and pelvic ultrasounds to have pelvic masses, likely fibroids. One of which is subsurosal and partially degenerating and one which is pedunculated. These were originally characterized in the 06/14 imaging and have been reexamined serially during her hospitalization incidentally. These masses have not changed in size or character (other than perhaps continuing to degenerate) and patient has undergone MRIx1, TVUSx1 and CT AP x4. I originally saw the patient on 06/19/16 and discussed with her ultimate removal of her uterus/BSO with frozen section analysis of the masses when she was an outpatient and healthy enough to undergo a major surgery. I then re-consulted on the patient in 08/18/16. At that time she had been in the hospital for multiple weeks and she continued to struggle with pancreatitis. I have now been asked to see the patient again on 12/27/16 and it appears that she has pyelonephritis, possibly sepsis and blood glucose upon admission at OSH of approximately 800. She reports no lower abdominal pain or other concerns regarding these masses. She understands the risks associated with a major operation and does not desire surgery at this time. Patient however reports that her PEG tube has been removed, she is usually at home, she has gained 20 lbs back but is still >20lbs less than her baseline weight. She clearly is currently infected and her BG is out of control as a result. 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 She was a social drinker. She has not been drinking recently and she stopped smoking approximately 3 to 5 years ago. FAMILY HISTORY: No significant history of malignancy. REVIEW OF SYSTEMS: CONSTITUTIONAL: Patient denies any fevers, chills. HEENT: Patient denies any visual changes, hearing loss, URI symptoms. CARDIOVASCULAR: Patient denies chest pain, palpitations, syncope, leg swelling. RESPIRATORY: Patient +shortness of breath.- wheezing, cough or hemoptysis. GASTROINTESTINAL: +abdominal pain, vomiting, nausea.-constipation, diarrhea, bloody stools. : Denies dysuria, hesitancy, frequency, hematuria COMMUNICATIONS MEDIA PROFESSOR: Patient +vaginal bleeding. -change in vaginal discharge, vaginal pain or masses. MUSCULOSKELETAL: Patient denies any arthralgias, myalgias, joint pain. No edema. INTEGUMENTARY: Patient denies dark thickened skin, acne, alopecia, breast pain, breast lump, rash or skin lesions. NEUROLOGICAL: Patient denies any convulsions, ringing in the ears, dizziness, tingling or weakness. PSYCHIATRIC: Patient denies any depression, change in personality, emotional problems, sleep disturbances, anxiety or suicidal ideation. ENDOCRINE: Patient denies deepening of the voice, appetite changes, hot flashes or sensitivities to temperature. HEMATOLOGY AND LYMPH NODES: Patient denies easy bleeding, bruising or swollen glands. PE General- NAD, A&Ox3 HEENT- No cervical lymphadenopathy, no masses, no thyroid nodules CVS- RRR no murmurs, gallops, rubs Chest- CTAB no wheezing or pleural effusions appreciated Abdomen- Soft diffusely tender to deep palpation, +BS in all 4 quadrants. No changes in masses. Extremities- no CCE Skin- No rashes or lesions appreciated Neuro- CN grossly intact Psych- A&O x3 Pelvic exam: deferred by patient Allergies (3) Active Reaction Ancef None documented Keflex Rash, NOS ciprofloxacin None documented Medications (33) Active Scheduled Meds (5): 12/27/16 insulin isophane 5 unit SUB-Q Daily 12/27/16 methimazole 10 mg PO Q8H 12/27/16 pancrelipase (Creon 24,000 units oral delayed release capsule) 1 cap PO TID-Before Meals 12/27/16 piperacillin-tazobactam + sodium chloride 0.9% INJ 100 mL (Zosyn + sodium chloride 0.9% INJ 100 mL) 3.375 gm IVPB ABXQ8H 25 ml/hr 12/27/16 propranolol (Inderal) 20 mg PO QID Unscheduled Meds: None PRN Meds (26): 12/27/16 Dextrose 50% in Water IV (Dextrose 50% Syringe) 12.5 gm IVP PRN 12/27/16 Dextrose 50% in Water IV (Dextrose 50% Syringe) 25 gm IVP PRN 12/27/16 calcium carbonate (calcium carbonate 500 mg (200 mg elemental calcium) oral tablet) 500 mg CHEW PRN 12/27/16 calcium carbonate (calcium carbonate 500 mg (200 mg elemental calcium) oral tablet) 1,000 mg CHEW PRN 12/27/16 calcium gluconate 1 gm IVPB PRN 100 ml/hr 12/27/16 glucagon 1 mg IM PRN 12/27/16 hydromorphone 0.5 mg IVP Q4H 12/27/16 insulin aspart 1 unit SUB-Q Sliding Scale 12/27/16 insulin aspart 2 unit SUB-Q Sliding Scale 12/27/16 insulin aspart 3 unit SUB-Q Sliding Scale 12/27/16 insulin aspart 4 unit SUB-Q Sliding Scale 12/27/16 insulin aspart 5 unit SUB-Q Sliding Scale 12/27/16 magnesium oxide 800 mg PO PRN 12/27/16 magnesium sulfate 2 gm IVPB PRN 25 ml/hr 12/27/16 ondansetron 4 mg IVP Q6H 12/27/16 potassium chloride 20 mEq IVPB PRN 50 ml/hr 12/27/16 potassium chloride 10 mEq IVPB PRN 100 ml/hr 12/27/16 potassium chloride 20 mEq PO PRN 12/27/16 potassium chloride 20 mEq NJ PRN 12/27/16 potassium phosphate + sodium chloride 0.9% INJ 250 mL 15 mmol IVPB PRN 63.75 ml/hr 12/27/16 potassium phosphate + sodium chloride 0.9% INJ 250 mL 30 mmol IVPB PRN 65 ml/hr 12/27/16 potassium phosphate + sodium chloride 0.9% INJ 250 mL 45 mmol IVPB PRN 66.25 ml/hr 12/27/16 potassium phosphate-sodium phosphate (potassium phosphate-sodium phosphate 250 mg-280 mg-160 mg oral powder for reconstitution) 2 pkt PO PRN 12/27/16 sodium phosphate + D5W 250 mL 15 mmol IVPB PRN 63.75 ml/hr 12/27/16 sodium phosphate + D5W 250 mL 30 mmol IVPB PRN 65 ml/hr 12/27/16 sodium phosphate + D5W 500 mL 45 mmol IVPB PRN 85.83 ml/hr One Time Meds (1): 12/27/16 (Completed) potassium chloride 40 mEq PO ONCE Continuous Infusions (1): 12/27/16 sodium chloride 0.9% 1000 ml INJ 1,000 mL 1,000 mL 125 ml/hr PHYSICAL EXAMINATION: Vital Signs - Reviewed Vitals Tmp(F) Pulse BP RR SpO2 FIO2 12/27 10:23 ---- 104 88/68 15 97 --- 12/27 09:02 ---- 128 127/61 25 --- --- 12/27 08:00 99.1 117 118/69 26 97 --- 12/27 07:00 ---- 113 112/59 20 98 --- 12/27 06:00 ---- 115 114/58 18 97 --- 24 Hr Tmax: 99.2F (37.33c) at 12/27 02:15 Vital Signs are the last 5 in the past 48 hours. Date Wt(kg) Wt(lb) Ht(cm) Ht(in) Method 12/27 (initial) 44.90 98.78 Measured 12/27 154.94 61.00 Stated DATA: 24hr Labs 12/27 0801 Total CK 20 Troponin-I <0.02 12/27 0557 Glucose POC 155 H 12/27 0409 Lactic Acid Lvl 1.0 Lipase Lvl 419 H Magnesium Lvl 1.4 L Phosphorus 3.2 Troponin-I <0.02 Sodium Lvl 138 Potassium Lvl 3.1 L Chloride Lvl 103 CO2 25 AGAP 13.1 Glucose Lvl 130 H Creatinine Lvl 0.15 L BUN 6 L B/C Ratio 40 H Total Protein 6.2 L Albumin Lvl 2.3 L Globulin 3.9 A/G Ratio 0.6 L Calcium Lvl 7.8 L ALT 14 AST 19 Alk Phos 145 H Bili Total 0.5 eGFR 178 Total CK 21 Ketone Quantitative 1.04 H WBC 5.8 RBC 3.65 L Hgb 10.0 L Hct 29.4 L MCV 80.5 MCH 27.4 MCHC 34.1 RDW 14.2 Platelet 166 MPV 11.3 H Segs 66.4 Monocytes 10.6 Lymphocytes 21.2 Eosinophils 1.7 Basophils 0.1 Segs-Bands # 3.9 Lymphocytes # 1.2 Monocytes # 0.6 Eosinophils # 0.1 PT 14.9 H INR 1.15 PTT 28.7 12/27 0317 UA Color Yellow UA Turbidity Marked UA Spec Grav 1.010 UA pH 5.0 UA Protein 30 UA Glucose Negative UA Ketones Negative UA Bili Negative UA Blood Large UA Urobilinogen <=1.0 UA Nitrite Negative UA Leuk Est Large UA RBC >182 H UA WBC >182 H UA Bacteria Few UA Mucus Few UA Sq Epi Occasional UA Irwin Yeast Moderate UA Hyph Yeast Occasional ASSESSMENT AND PLAN: _ 40-year-old, P3-0-1-3 with thyroid storm and pancreatitis now diagnosed with likely stable uterine fibroids. 1) Adenxal mass/uterine mass -no additional imaging or labs are necessary at this time. Patient ultimately likely to need surgery for EL/CARI/BSO frozen section of the uterine masses to remove uterus and aleviate her hydronephrosis. This needs to be performed when patient is not acutely ill from pyelonephritis and can recover more easily from a major surgery. I would again recommend patient follow up 3-4 weeks after discharge from the hosptial to discuss RBA of surgery and when she might want to consider having this operation performed. Blood glucose of 200 or less at all times is essential to healing from a major operation. We discussed this again today and patient understands that she need to improve her BG and continue to improve strength/performance status prior to going to OR for CARI/BSO. We are available for questions at any time. Nya Mancilla MD Gynecologic Oncology Staff [phone] Extracted from:Title: Clinical Document Author: Micheal Reynolds MD Date: 12/27/16 PATIENT NAME: CHIKA BOJORQUEZ ATTENDING PHYSICIAN: SONU RAE DATE OF ADMISSION: 12/27/2016 * * * CC: "fever and back pain" REASON FOR TRANSFER: ACUTE PYELONEPHRITIS, LEFT HYDROURETERONEPHROSIS HISTORY OF PRESENT ILLNESS: 41 yo woman with PMHx of complicated pancreatitis (2/2 calculus) with pseudocyst and PD stent s/p removal, multinodular goiter and intermittent thyrotoxicosis (treated only symptomatically), DM on insulin, and large uterine fibroid which caused compressive ureteral obstruction with hydroureteronephrosis s/p ureteral stent placement and replacement on two occasions, presents to [facility] in [place] with c/o several days of dysuria, chills and Left flank pain. She was found to have significant UTI suggestive of pyelonephritis. A CT/abdomen/pelvis wo IV contrast was performed which showed persistent moderate to severe Left hydroureteronephrosis despite presence of dbl-J ureteral stent and presence of possible concretions over stent tips along with presence of uterine fibroids with local compression on ureters. She was also found to have BG >800 which responded briskly to IV insulin 12U with improvement to the 200's. Other labs outside included Mg of 1.1 and TSH 0.00 with T4 of 24, lactic acid of 36. Pt was afebrile and there was no leukocytosis. Her HR was in the 130's c/w thyrotoxicosis suggested by TFT's mentioned above. Pt notes she had stopped taking her insulin 2/2 N/V. She requested transfer to [facility] for further care. Urology consultation was obtained with Dr. Monteiro via phone and pt was transferred to the IMCU at [facility]. She currently denies fever but admits to intermittent chills. Her Left flank pain was much improved with 0.5mg IV dilaudid in the ED and her nausea improved with IV zofran. She has an allergy to Keflex and was given Zosyn 3.375g IV x 1 in the outside ED without event. She denies CP, SOB, diarrhea, edema, BIANCHI, syncope, hematochezia or haseeb hematuria. Initial labs on arrival here showed WBC within normal limits and UA with >182 WBC and >182 RBC's with LE+. She denies epigastric/upper abdominal pain but does have some suprapubic pain. PAST MEDICAL HISTORY: as per HPI PAST SURGICAL HISTORY: pancreatic duct stent placement, ureteral stents, biliary sphincterotomy, ERCP with CBD stone removal, EGD's FAMILY HISTORY: father with asthma ALLERGIES: Allergies (3) Active Reaction Ancef None documented Keflex Rash, NOS ciprofloxacin None documented HOME MEDICATIONS: Please see medical reconciliation form. SOCIAL HISTORY: no smoking, EtOH or drug use. REVIEW OF SYSTEMS: 12-point review of systems negative except for that detailed in above HPI PHYSICAL EXAMINATION: Vitals Tmp(F) Pulse BP RR SpO2 FIO2 12/27 04:00 ---- 135 118/58 19 98 --- 12/27 03:52 ---- 140 118/51 21 98 --- 12/27 03:00 ---- 136 119/60 18 99 --- 12/27 02:55 ---- 133 125/72 20 --- --- 12/27 02:15 99.2 136 139/69 22 100 --- 24 Hr Tmax: 99.2F (37.33c) at 12/27 02:15 Vital Signs are the last 5 in the past 48 hours. I&O Record In Out Bal 12/26 24hr Tot 178 300 -122 12/25 24hr Tot 0 0 0 GENERAL: in no apparent distress at this time, thin HEENT: EOMI, mild exopthalmos, no scleral icterus NECK: supple, no jugular venous distention, no bruits, nodular thyroid, warm but non-tender CARDIOVASCULAR:tachycardic but rate and rhythm, s1 and s2 present, no murmurs, rubs or gallops LUNGS: clear to auscultation bilaterally, no wheezes, rales or rhonchi. GASTROINTESTINAL: soft, moderate suprapubic tenderness with mild guarding, non- distended positive bowel sounds in all four quadrants, no fluid wave appreciated. Left CVA tenderness to exam. EXTREMITIES: no clubbing, cyanosis or edema, pulses 2+ bilaterally and symmetric. NEUROLOGICAL: fine resting tremor, CN 2-12 grossly intact, no focal neurologic deficits, intact motor and sensory SKIN: warm, moist, no erythema, ecchymoses, purpura or petechiae, no jaundice LABORATORY DATA: Labs (Last four charted values) WBC 5.8 (DEC 27) Hgb L 10.0 (DEC 27) Hct L 29.4 (DEC 27) Plt 166 (DEC 27) Radiology: none new Assessment&Plan: 41 yo woman with above PMHx presents from outside ED with Left flank pain, chills and dysuria 1. ACUTE LEFT PYELONEPHRITIS 2. PERSISTENT LEFT HYDROURETERONEPHROSIS 3. LEFT URETERAL STENT 4. LARGE UTERINE FIBROID WITH LOCAL MASS EFFECT 5. H/O COMPLICATED PANCREATITIS, PANCREATIC PSEUDOCYST 6. H/O CHOLEDOCHOLITHIASIS S/P ERCP AND PD STENT 7. DM 8. MULTINODULAR GOITER WITH THYROTOXICOSIS 9. HYPOMAGNESEMIA 10. SINUS TACHYCARDIA PLAN: 1. Allergic to keflex, no reaction to zosyn in outside ED. will continue zosyn 3.375g IV q6 pending culture results. IVF's and pain control with IV dilaudid. antiemetics as needed. Will recheck lactic acid level. 2. Urology consultation pending. Pt will likely need replacment of her Left ureteral double-J stent if stent compromised. Creatinine stable. 3. Stent patency will be evaluated by urology service, keep pt NPO for now. 4. Will ask MAINTENANCE REPRESENTATIVE to evaluate. Pt has been seen by Dr. Mancilla in the past. Will need CARI when clinically stable. 5. No active upper abdominal pain. Followed by Dr. Gleason as outpatient. Will check lipase. Not currently on pancreatic enzyme replacement. 6. Stent removed recently without complications. No recent jaundice. 7. Initially with marked hyperglycemia without evidence of DKA, pt responded briskly to IV insulin and current BG is around 120's. Will place on low dose SSI as needed and reconcile home insulin adjusted to NPO status. 8. No curative tx has been pursued according to pt, and she does not have an tire curer. Will place on methimazole 20mg PO q8 and propanolol 20mg PO QID. 9. recheck her Mg, currently pending. replace as needed, check Ca++. 10. 2/2 thyrotoxicosis, no evidence of AFIB recently and pt comfortable without dyspnea. Start propanolol q6hrs. EKG shows sinus tachycardia. date/time of encounter: 12/27/2016 03:15 12/29/2016 Divine Extracted from:Title: Clinical Document Author: Sadie Gleason MD Date: 09/21/16 Progress Note Gastroenterology and Hepatology ASSESSMENT /PLAN: This is a 40-year-old female with recent history of thyroid toxicosis, pelvic mass w urinary obstruction s/p L renal stent, acute severe pancreatitis complicated by symptomatic pseudocyst and severe PC malnutrition. 1. Acute over chronic pancreatitis w infected pseudocyst; s/p Axios stent on 08/06/16 (Dr Ezequiel Vaughn @ [facility]) ; ERCP w CBD stone removal and failed deep PD cannulation on 08/24/16 (Dr Olga Vaughn @ [facility]) ; IR drain for infrapancreatic pseudocyst; repeat ERCP with deep cannulation, PD plastic stent, clearence of CBD and removal of Axios metal stent on 09/12/16 (Dr Gleason @[facility]) -Repeat CT scan; labs looked much better; NJ removed and he is tolerated low fat diet. -IR drain flush at home w recording. -Repeat ERCP w PD stent exchange in 6-8 weeks. -Creon TID for pain and diarrhea. 2. Adnexal masses -Ob Onc consultation with [place] dept noted; outpatient f/u recommended. 3. Thyrotoxicosis -per primary 4. Electrolyte def w severe PC malnutrition - improving Doing very well; pain controlled; tolerating diet; f/u in office for follow up 1-2 weeks. SUBJECTIVE: Patient seen and examined at bedside. Events of the day reviewed with nursing staff. Some post prandial pain; but able to eat. Pain tolerable. Review of Systems: (-)=Negative,(+)=Positive 1) Const: (-) fever, (-) weight change 2) Skin: (-) rash, (-) bleeding 3) HEENT: (-) difficulty swallowing, (-) swelling 4) Eyes: (-) vision changes, (-) bleeding 5) Neuro: (+) weakness, (-) headaches 6) Resp: (-) dyspnea on exertion, (-) cough 7) Cardio: (-) chest pain, (-) orthopnea 8) GI: (-) blood in stool, (-) reflux 9) : (-) dysuria, (-) bloody discharge 10) Endo: (-) heat intolerance, (-) cold intolerance OBJECTIVE: Vitals: See below General: Alert , Oriented x 3 CVS: s1s2 RRR Resp: CTA Bilaterally Abd : Soft, upper abd tenderness, ND , BS hypo, R IR drain in place. Ext : no edema RUBBER MOLDER: No gross motor/sensory defects Vitals Tmp(F) Tmp(C) Ttype BP MAP Pulse RR SpO2 FIO2 ETCO2 09/21 16:00 98.7 37.06 oral 121/81 --- 89 17 97 --- --- 09/21 11:59 98.5 36.94 oral 115/71 --- 81 19 97 --- --- 09/21 07:28 98.3 36.83 oral 126/81 --- 92 17 99 --- --- 09/21 04:02 98.5 36.94 oral 114/71 --- 83 16 100 --- --- 09/21 00:04 98.5 36.94 oral 117/68 --- 86 17 98 --- --- 24 Hr Tmax: 98.7F (37.06c) at 09/21 16:00 Vital Signs are the last 5 in the past 48 hours. 24 Hr Tmin: 98.2F (36.78c) at 09/20 20:44 Weights are the last 5 in 60 days, plus initial. Date Wt(kg) Wt(lb) Ht(cm) Ht(in) Method BMI 09/21 54.29 119.44 Measured 09/19 59.73 131.40 Measured 09/18 55.50 122.10 Measured 09/17 53.91 118.60 Measured 09/16 41.82 92.00 Measured 09/10 (initial) 41.36 91.00 Estimated 16.7 09/10 157.48 62.00 Stated Most Recent Scores: 09/21/16 Pain Intensity NRS (0-10) 8 09/21/16 [place] Coma Score 15 09/20/16 [facility] Fall Score 6 09/20/16 [place] Score 19 Lines, Tubes, and Drains: 09/13/2016 17:00 Surgical Drains: Jeremías Lainez Drain 16 fr abdominal fluid drain Right 09/13/2016 11:00 Gastric Tubes: Nasoduodenal Nostril, right 09/13/2016 08:40 Gastric Tubes: Nasogastric Nostril, right 09/10/2016 20:30 Central Lines: Basilic vein, left PICC Triple Surgical Procedures: 09/13/16 12:07 CYSTOSCOPY / RETROGRADE / STENT EXCHANGE, LEFT [id number] Primary Surgeon: Cristóbal Mars MD (Service: URO) 09/12/16 08:56 ERCP / MAC [id number] Primary Surgeon: Sadie Gleason MD (Service: END) I&O Record In Out Bal 09/21 24hr Tot 543 0 543 09/20 24hr Tot 643 20 623 24hr Labs 09/21 1540 Glucose POC 101 H 09/21 1040 Glucose POC 147 H 09/21 0641 Glucose POC 134 H 09/21 0510 Total Protein 7.4 Albumin Lvl 2.2 L Bili Total 0.9 Bili Direct 0.2 Bili Indirect 0.7 Alk Phos 239 H AST 39 H ALT 63 Globulin 5.2 H A/G Ratio 0.4 L Magnesium Lvl 1.5 L Glucose Lvl 91 BUN 5 L Creatinine Lvl 0.18 L Sodium Lvl 133 L Potassium Lvl 3.6 Chloride Lvl 98 CO2 26 AGAP 12.6 Calcium Lvl 8.3 L eGFR 169 WBC 6.0 RBC 3.78 L Hgb 10.9 L Hct 32.5 L MCV 86.0 MCH 28.9 MCHC 33.6 RDW 15.1 H Platelet 199 MPV 10.5 H Segs 61.5 Monocytes 12.7 H Lymphocytes 21.8 Eosinophils 3.4 Basophils 0.6 Segs-Bands # 3.7 Lymphocytes # 1.3 Monocytes # 0.8 Eosinophils # 0.2 09/20 2119 Glucose POC 93 Scheduled Meds (6): cholestyramine (Questran) 4 gm PO Daily [Last Rescheduled Dt/Tm: 09/21/16 9:00:00 RECEPTION AGENT] [eMAR Schedule: (09/21/16) 09:00] [Future Dose: 09/22/16 09:00] enoxaparin 40 mg SUB-Q Daily [Last Rescheduled Dt/Tm: 09/10/16 21:00:00 RECEPTION AGENT] [eMAR Schedule: (09/21/16) 21:00] [Future Dose: 09/22/16 21:00] methimazole 10 mg PO Q8H [eMAR Schedule: (09/21/16) 00:00, 08:00, 16:00; (09/22/16) 00:00] pancrelipase (Creon 24,000 units oral delayed release capsule) 1 cap PO TID- Before Meals [Last Rescheduled Dt/Tm: 09/21/16 7:30:00 RECEPTION AGENT] [eMAR Schedule: (09/21/16) 07:30, 11:30, 16:30; (09/22/16) 07:30] pantoprazole 40 mg PO Before Dinner [eMAR Schedule: (09/21/16) 16:30] [Future Dose: 09/22/16 16:30] propranolol 20 mg PO TID [Last Rescheduled Dt/Tm: 09/11/16 9:00:00 RECEPTION AGENT] [eMAR Schedule: (09/21/16) 09:00, 13:00, 17:00] Unscheduled Meds: None PRN Meds (13): Dextrose 50% in Water IV (Dextrose 50% Syringe) 12.5 gm IVP PRN Dextrose 50% in Water IV (Dextrose 50% Syringe) 25 gm IVP PRN acetaminophen-hydrocodone (acetaminophen-hydrocodone 325 mg-7.5 mg/15 mL oral solution) 10 mL PO Q6H acetaminophen (Tylenol) 650 mg PO Q6H glucagon 1 mg IM PRN hydromorphone (Dilaudid) 0.5 mg IV Q4H insulin aspart 1 unit SUB-Q TID-Before Meals insulin aspart 2 unit SUB-Q TID-Before Meals insulin aspart 3 unit SUB-Q TID-Before Meals insulin aspart 4 unit SUB-Q TID-Before Meals insulin aspart 5 unit SUB-Q TID-Before Meals morphine Sulfate 2 mg IVP Q4H ondansetron 4 mg IVP Q6H One Time Meds (1): (Discontinued) potassium chloride 40 mEq NG ONCE Continuous Infusions: None Stool Color: Brown Stool Description: Loose Type of Bladder Control: Voluntary Type of Urinary Elimination: Continent Extracted from:Title: Urology Consult Author: Edwin Mcnamara MD Date: 09/12/16 Patient: CHIKA BOJORQUEZ Age: 40 years Sex: Female : 1975 Associated Diagnoses: None Author: Edwin Mcnamara MD Urology Consult Note Thank you for including us in this patient's care. Requesting Physician: Tim Edmonds MD Reason for Consult: Left hydronephrosis with indwelling ureteral stent. Basic Information Source of history: Self. Present at bedside: Family member. History limitation: None. Chief Complaint I have a stent in place. Do I still need it?" History of Present Illness 40 year old female known to our service with multiple comorbidities including hyperthyroid, goiter, pelvic mass causing extrinsic compression of left ureter causing left hydronephrosis for which she underwent ureteral stent placement on 06/18/2016. Patient is currently admitted for pancreatic pseudocyst and ascending cholangitis. Urology has been consulted for management of ureteral stent. She denied any discomfort related to stent. She is due for exchange. On exam, patient in mild distress, c/o epigastric pain. Denies hematuria or dysuria. Has only been taking in sips of water. Abdominal pain is sharp, 10/10, radiating to the back, with minimal reli Review of Systems CONSTITUTIONAL: Denies fever or chills, weight loss, fatigue. HEENT: Denies hearing loss, visual changes. CARDIOVASCULAR: Denies chest pain, palpitations. RESPIRATORY: Denies shortness of breath, cough. GASTROINTESTINAL: Endorsed epigastric abdominal pain, denies diarrhea, constipation. GENITOURINARY: As per HPI. MUSCULOSKELETAL: Denies joint pain, joint effusions, decreased range of motion SKIN: Denies recent rashes, lesions. NEUROLOGICAL: Denies seizures, numbness, tingling. ENDOCRINE: Denies excessive thirst, temperature intolerance. Health Status Allergies: Allergic Reactions (All) Severity Not Documented Ciprofloxacin- No reactions were documented. Keflex- Rash, nos. Canceled/Inactive Reactions (All) Severity Not Documented NKDA- No reactions were documented., Allergies (2) Active Reaction ciprofloxacin None Documented Keflex Rash, NOS Current medications: (Selected) Inpatient Medications Ordered ANES HYDROmorphone: 0.5 mg, IVP, Q5Min, PRN: Pain Score 7-10 ANES diphenhydrAMINE: 12.5 mg, IVP, Q6H, PRN: Itching ANES fentaNYL: 25 microgram, IVP, Q5Min, PRN: Pain Score 4-6 ANES fentaNYL: 50 microgram, IVP, Q5Min, PRN: Pain Score 7-10 ANES flumazenil: 0.2 mg, IVP, PRN, PRN: Benzodiazepine Reversal ANES meperidine: 12.5 mg, IVP, Q30Min, PRN: Other -See Comment ANES morphine Sulfate: 2 mg, IVP, Q5Min, PRN: Pain Score 4-6 ANES morphine Sulfate: 4 mg, IVP, Q5Min, PRN: Pain Score 7-10 ANES naloxone: 0.4 mg, IVP, Q2MIN, PRN: Narcotic Reversal ANES ondansetron: 4 mg, IVP, ONCE, PRN: Nausea and Vomiting ANES oxyCODONE: 10 mg, PO, Q4H, PRN: Pain Score 7-10 ANES oxyCODONE: 5 mg, PO, Q4H, PRN: Pain Score 4-6 ANES promethazine: 6.25 mg, IVPB, ONCE, PRN: Nausea and Vomiting D5W 1/2NS 1,000 mL: 75 ml/hr, IV, Stop: 10/11/16 23:59:00 CDT Dextrose 50% Syringe: 12.5 gm, 25 mL, IVP, PRN, PRN: Blood Glucose Results Dextrose 50% Syringe: 25 gm, 50 mL, IVP, PRN, PRN: Blood Glucose Results Dilaudid: 0.5 mg, 0.5 mL, IV, Q4H, PRN: Pain Score 6-10 Lactated Ringers 1,000 mL: 125 ml/hr, IV, Stop: 10/12/16 10:39:00 CDT Tylenol: 650 mg, 20.3 mL, PO, Q6H, PRN: Pain 1-3/Temp > 100.4 F Zofran: 4 mg, 2 mL, IV, Q6H, PRN: Nausea acetaminophen-hydrocodone 325 mg-7.5 mg/15 mL oral solution: 10 mL, PO, Q6H, PRN: Pain Score 4-6 enoxaparin: 40 mg, 0.4 mL, SUB-Q, Daily glucagon: 1 mg, IM, PRN, PRN: Blood Glucose Results insulin aspart: 10 unit, 0.1 mL, SUB-Q, Sliding Scale, PRN: Blood Glucose Results insulin aspart: 2 unit, 0.02 mL, SUB-Q, Sliding Scale, PRN: Blood Glucose Results insulin aspart: 4 unit, 0.04 mL, SUB-Q, Sliding Scale, PRN: Blood Glucose Results insulin aspart: 6 unit, 0.06 mL, SUB-Q, Sliding Scale, PRN: Blood Glucose Results insulin aspart: 8 unit, 0.08 mL, SUB-Q, Sliding Scale, PRN: Blood Glucose Results insulin isophane: 5 unit, 0.05 mL, SUB-Q, Q12H methimazole: 10 mg, 1 tab, PO, Q8H morphine Sulfate: 2 mg, 1 mL, IVP, Q4H, PRN: Pain Score 6-10 ondansetron: 4 mg, 2 mL, IVP, Q6H, PRN: Nausea and Vomiting pantoprazole: 40 mg, IVP, Before Dinner propranolol: 20 mg, 2 tab, PO, TID Documented Medications Suspended [place] 5/325 oral tablet: 1 tab, PO, Q6H, PRN: Pain Score 1-3, 0 Refill(s) enoxaparin: 40 mg, 0.4 mL, SUB-Q, [id number], 0 Refill(s) insulin isophane (NPH) 100 units/mL human recombinant subcutaneous suspension: 5 unit, SUB-Q, Q12H, 0 Refill(s) insulin regular 100 units/mL human recombinant: 1 unit, SUB-Q, Sliding Scale, PRN: Blood Glucose Results, 0 Refill(s) insulin regular 100 units/mL human recombinant: 2 unit, SUB-Q, Sliding Scale, PRN: Blood Glucose Results, 0 Refill(s) insulin regular 100 units/mL human recombinant: 3 unit, SUB-Q, Sliding Scale, PRN: Blood Glucose Results, 0 Refill(s) insulin regular 100 units/mL human recombinant: 4 unit, SUB-Q, Sliding Scale, PRN: Blood Glucose Results, 0 Refill(s) insulin regular 100 units/mL human recombinant: 5 unit, SUB-Q, Sliding Scale, PRN: Blood Glucose Results, 0 Refill(s) methimazole: 10 mg, PO, Q8H, 0 Refill(s) ondansetron 2 mg/mL injectable solution: 4 mg, 2 mL, IVP, Q6H, PRN: Nausea, 0 Refill(s) pantoprazole 40 mg intravenous injection: 40 mg, IVP, Before Dinner, 0 Refill(s) propranolol 20 mg oral tablet: 20 mg, 1 tab, PO, TID, 0 Refill(s) tramadol 50 mg oral tablet: 50 mg, 1 tab, PO, Q4H, PRN: Pain Score 1-3, 0 Refill(s) Problem list: All Problems Hypomagnesemia / SNOMED CT 747116684 / Confirmed MRSA / SNOMED CT 071920009 / Confirmed Problem added by Discern Expert. Cyst fluid, 08/06/2016 Severe malnutrition / SNOMED CT 46894628 / Confirmed, Active Problems (3) Hypomagnesemia MRSA Severe malnutrition Histories Past Medical History: Active Severe malnutrition (08023230): Onset on 08/27/2016 at 40 years. Resolved Goiter (240.9): Resolved. Heartburn (787.1): Resolved. Gallbladder disease (362748288): Resolved. Diabetes (632018354): Resolved. Hypophosphatemia (3872495): Resolved on 08/31/2016 at 40 years. Family History: Asthma Father Comments: 08/14/2012 20:08 - Merrill Santos RN as a child Type 2 diabetes mellitus Mother Procedure history: Cholecystectomy (41158013) on 07/29/2016 at 40 Years. Tubal ligation ([id number]). Social History Social and Psychosocial Habits Alcohol 07/05/2016 Use: Never Sexual 07/05/2016 Sexually active: Yes Substance Abuse 07/05/2016 Use: None Tobacco 09/10/2016 Use: Former smoker Ready to change: No Concerns about tobacco use in household: No Exposure to Tobacco Smoke None Cigarette Smoking Last 365 Days No Reg Smoking Cessation Counseling No . Physical Examination VS/Measurements Vital Signs (last 24 hrs) Last Charted Temp Oral 98.2 DegF (SEP 12 06:19) Heart Rate Apical H 119bpm (SEP 12 10:52) Resp Rate 20 BRMIN (SEP 12 10:52) SBP 128 mmHg (SEP 12 10:52) DBP H 91mmHg (SEP 12 10:52) SpO2 99 % (SEP 12 10:52) General: Alert and oriented, No acute distress. Malnutritioned. Eye: Normal conjunctiva, Vision unchanged. HENT: Normal hearing, Oral mucosa is moist. Dobhoff feeding tube in place. Neck: Supple, Non-tender. Respiratory: Respirations are non-labored, Symmetrical chest wall expansion. No tactile fremitus Cardiovascular: Normal rate, Regular rhythm. No extremity edema, palpable peripheral pulses Gastrointestinal: Soft, Non-tender, no palpable hernias Genitourinary: No costovertebral angle tenderness. Musculoskeletal No clubbing/cyanosis/edema Integumentary: Warm, [place]. Neurologic: Alert, Oriented. Cognition and Speech: Oriented, Speech clear and coherent. Review / Management Results review: Labs (Last four charted values) WBC 5.9 (SEP 12) 9.0 (SEP 10) Hgb L 11.9 (SEP 12) L 11.5 (SEP 10) Hct L 35.8 (SEP 12) L 34.0 (SEP 10) Plt 289 (SEP 12) 305 (SEP 10) Na L 132 (SEP 12) L 131 (SEP 10) K L 3.2 (SEP 12) 3.9 (SEP 10) CO2 31 (SEP 12) 28 (SEP 10) Cl L 93 (SEP 12) L 94 (SEP 10) Cr L 0.22 (SEP 12) L 0.22 (SEP 10) BUN 14 (SEP 12) 18 (SEP 10) Glucose Random H 123 (SEP 12) 87 (SEP 10) Mg L 1.7 (SEP 10) Phos 3.3 (SEP 10) Ca 9.2 (SEP 12) 9.4 (SEP 10) PT 14.0 (SEP 12) INR 1.06 (SEP 12) PTT 24.8 (SEP 12) . Impression and Plan 40 year old female with hydronephrosis secondary to extrinsic compression from pelvic mass s/p left stent placement on 06/18/2016. Patient has recent CT scan which revealed persistent compresion of left ureter. Currently with mild hydronephrosis and stent with proximal coil in UPJ. -- WE recommend to continue with ureteral stent to avoid renal function deterioration/flank pain due to obstructive uropathy. -- She is due for stent exchange. Will schedule for left ureteral stent exchange tomorrow in OR. Discussed with Dr. Mars. Addendum by Cristóbal Mars MD on 09/13/2016 08:44 Patient seen and examined, agree with H&P, plan as per Dr. Em -Dmitri malignant obstruction - due for a stent exchange. To OR for cysto, L RPG, L stent exchange. On CT no evidence of R sided hydronephrosis or obstruction will therefore continue with left sided unilateral stent. If hydro does develop may need R stent in the future. I personally reveiwed the patient's labs and imaging reports, looked at the images themselves, and contacted the consulting physician to discuss the above plan. Cristóbal Mars MD [facility] Office: [phone] 09/22/2016 [facility] Extracted from:Title: Hospitalist Progress Note Author: Bree Vences MD Date: 09/10/16 Assessment/Plan 1. Cholangitis -Patient completed 10 day course of IV antimicrobials. -Patient has abdominaldrain in place with persistent drainage - flushing drain [id number] 2.Acute pancreatitis: Post ERCP in patientwith choledocholithiasis -Post nasojejunal tube placement by GI -ERCP on 08/24 bile duct stone removal and sphincterotomy with pancreatogram with demonstration of distorted main pancreatic duct, dilation in the head of the pancreas - keep nasojejunal tube in place for 1-2 weeks after 09/05 (when last CT abdomen was done) thenfollow-up with Dr. Vaughn(GI) at discharge 3.Adnexal mass: leiomyoma vs leiomyosarcoma -followup with GynOnc as outpatient 4.Choledocholithiasis -Post ERCP withbile duct stone removal and sphincterotomy on 08/24/2016. -She will need GI follow-up as outpatient as stated above 5.Type II diabetes mellitus -on NPH insulin with good glycemic control - accuchgilda mchugh 6.Severe malnutrition -Nutrition via nasojejunal tube primarily buton clear liquid diet as tolerated 7. Hyperthyroidism: -Continue methimazoleas per home dosage Prophylaxis lovenox Disposition transfert back to [facility] 09/10/2016 [facility] Extracted from:Title: Clinical Document Author: Sadie Gleason MD Date: 08/23/16 Progress Note Gastroenterology and Hepatology ASSESSMENT /PLAN: This is a 40-year-old female with recent history of thyroid toxicosis, pelvic masses, acute severe pancreatitis complicated by symptomatic pseudocyst and severe malnutrition. 1. Acute over chronic pancreatitis w infeceted pseudocyst; s/p Axios stent at [facility] facility on 08/06/16 - Given multilocalated abdominial cyst (likely pancreatic origin) ; may beneift from IR drains; will need multiple drains and close imaging follow up. -Given new finding of CBD stone on CT; will need ERCP w removal of stone. -Given possibility of PD disruption feeding into cyst; may benefit from PD stenting as well at same time -Axios stent will need to be removed in near future. 2. Adnexal masses -Ob Onc consultation with [place] dept noted; outpatient f/u recommended. 3. Thyrotoxicosis -per primary 4. Electrolyte def w severe PC malnutrition -Tolerating [place] feedings; will need repeat Axr to check for tip placement; if remains in duodenum; may need IR help in advancing it further under floroscopy. She is tolerating feedings now. Given need for multiple endoscopic highly complex inteventions; possible need for pancreatic surgical and IR multidiscplinary team back up; [place] [facility] [place] Shine who has agreed to accept the patient. SUBJECTIVE: Patient seen and examined at bedside. Events of the day reviewed with nursing staff. Remains tachycardic. Tolerting tube feedings. PICC line being placed today. Review of Systems: (-)=Negative,(+)=Positive 1) Const: (-) fever, (-) weight change 2) Skin: (-) rash, (-) bleeding 3) HEENT: (-) difficulty swallowing, (-) swelling 4) Eyes: (-) vision changes, (-) bleeding 5) Neuro: (+) weakness, (-) headaches 6) Resp: (-) dyspnea on exertion, (-) cough 7) Cardio: (-) chest pain, (-) orthopnea 8) GI: (-) blood in stool, (-) reflux 9) : (-) dysuria, (-) bloody discharge 10) Endo: (-) heat intolerance, (-) cold intolerance OBJECTIVE: Vitals: See below General: Alert , Oriented x 3 CVS: s1s2 RRR Resp: CTA Bilaterally Abd : Soft, upper abd tenderness, ND , BS + Ext : no edema RUBBER MOLDER: No gross motor/sensory defects Vitals Tmp(F) Tmp(C) Ttype BP MAP Pulse RR SpO2 FIO2 ETCO2 08/23 17:00 ---- ---- ---- 108/72 80 104 21 99 --- --- 08/23 16:00 ---- ---- ---- 100/81 85 105 21 98 --- --- 08/23 15:44 98.2 36.78 oral ----- --- --- -- --- --- --- 08/23 15:00 ---- ---- ---- 124/90 98 106 21 98 --- --- 08/23 14:55 ---- ---- ---- 113/70 80 106 23 99 --- --- 24 Hr Tmax: 100.2F (37.89c) at 08/23 07:25 Vital Signs are the last 5 in the past 48 hours. 24 Hr Tmin: 98.1F (36.72c) at 08/23 11:52 Weights are the last 5 in 60 days, plus initial. Date Wt(kg) Wt(lb) Ht(cm) Ht(in) Method BMI 08/22 50.95 112.10 Measured 08/21 50.91 112.00 Measured 08/17 (initial) 51.16 112.56 Estimated 21.3 08/17 154.94 61.00 Stated Most Recent Scores: 08/23/16 Pain Intensity NRS (0-10) 3 08/23/16 Andrews Contreras Fall Score 11 08/22/16 Ruslan Score 18 08/22/16 Bruno Coma Score 15 Lines, Tubes, and Drains: 08/23/2016 13:23 Central Lines: Basilic vein, left PICC Triple 08/20/2016 17:00 Gastric Tubes: Other: Dobhoff Nostril, left 08/19/2016 20:00 Peripheral Lines: Forearm Right 20 gauge Over the needle catheter 08/19/2016 06:35 Peripheral Lines: Forearm Left 22 gauge Over the needle catheter Surgical Procedures: 08/20/16 14:23 ERCP AND SMALL BOWEL ENTEROSCOPY AND DOLOHOFF PLACEMENT/TO FOLLOW START TIME REQUESTED [id number] Primary Surgeon: Sadie Gleason MD (Service: END) I&O Record In Out Bal 08/23 24hr Tot [phone] 08/22 24hr Tot [id number] 24hr Labs 08/23 1519 Glucose POC 177 H 08/23 1135 Glucose POC 116 H 08/23 0608 Glucose POC 206 H 08/23 0433 Magnesium Lvl 1.5 L Glucose Lvl 161 H BUN 6 L Creatinine Lvl 0.22 L Sodium Lvl 141 Potassium Lvl 2.7 C Chloride Lvl 103 CO2 32 AGAP 8.7 L Calcium Lvl 8.1 L eGFR 158 Phosphorus 1.9 L WBC 6.3 RBC 3.44 L Hgb 10.2 L Hct 30.7 L MCV 89.4 MCH 29.6 MCHC 33.1 RDW 16.4 H Platelet 263 MPV 10.7 H Segs 68.4 Monocytes 9.9 Lymphocytes 19.1 L Eosinophils 2.1 Basophils 0.5 Segs-Bands # 4.3 Lymphocytes # 1.2 Monocytes # 0.6 Eosinophils # 0.1 08/23 0109 Glucose POC 221 H Scheduled Meds (6): cefepime + sodium chloride 0.9% INJ 100 mL 1 gm IVPB [id number] 200 ml/hr [Last Rescheduled Dt/Tm: 08/18/16 4:00:00 RECEPTION AGENT] [eMAR Schedule: (08/23/16) 04:00, 16:00; (08/24/16) 04:00] enoxaparin (Lovenox) 40 mg SUB-Q [id number] [eMAR Schedule: (08/23/16) 22:00] [Future Dose: 08/24/16 22:00] methimazole 10 mg PO Q8H [eMAR Schedule: (08/23/16) 00:00, 08:00, 16:00; (08/24/16) 00:00] pantoprazole (Protonix) 40 mg IVP Before Dinner [Last Rescheduled Dt/Tm: 08/17/16 22:00:00 RECEPTION AGENT] [eMAR Schedule: (08/23/16) 16:30] [Future Dose: 08/24/16 16:30] propranolol 20 mg PO TID [Last Rescheduled Dt/Tm: 08/22/16 16:00:00 RECEPTION AGENT] [eMAR Schedule: (08/23/16) 00:00, 08:00, 16:00; (08/24/16) 00:00] vancomycin + sodium chloride 0.9% 250 mL INJ (for IV set) 250 mL 1,250 mg IVPB [id number] 250 ml/hr [Last Rescheduled Dt/Tm: 08/21/16 18:00:00 RECEPTION AGENT] [eMAR Schedule: (08/23/16) 02:00, 10:00, 18:00; (08/24/16) 02:00] Unscheduled Meds: None PRN Meds (13): Dextrose 50% in Water IV (Dextrose 50% Syringe) 12.5 gm IVP PRN Dextrose 50% in Water IV (Dextrose 50% Syringe) 25 gm IVP PRN acetaminophen-hydrocodone ([place] 5/325 oral tablet) 1 tab PO Q6H acetaminophen 650 mg PO Q6H glucagon 1 mg IM PRN hydromorphone (Dilaudid) 0.5 mg IV Q3H insulin aspart 2 unit SUB-Q Sliding Scale insulin aspart 4 unit SUB-Q Sliding Scale insulin aspart 6 unit SUB-Q Sliding Scale insulin aspart 8 unit SUB-Q Sliding Scale insulin aspart 10 unit SUB-Q Sliding Scale morphine Sulfate 2 mg IV Q4H ondansetron (Zofran) 4 mg IVP Q6H One Time Meds (2): (Completed) magnesium sulfate (magnesium sulfate 2 gm in Water 50 ml) 2 gm IV ONCE 25 ml/hr (Completed) potassium chloride 40 mEq DHT ONCE Continuous Infusions (1): D5W 1/2NS + KCL 40mEq/L 1000ml (Premix) 1,000 mL 1,000 mL 75 ml/hr Type of Bladder Control: Voluntary Type of Urinary Elimination: Incontinent 08/24/2016 [facility] Extracted from:Title: Discharge Summary * Author: Shawanda Yuan VETERINARY SURGEON Date: 08/17/16 Patient: CHIKA BOJORQUEZ Age: 40 years Sex: Female : 1975 Associated Diagnoses: None Author: Shawanda Yuan NP Attending Physician: Amada Dawson Date of admission: 07/05/2016 Date of discharge to [facility]: 08/17/2016 Discharge diagnosis: 1. Acute pancreatitis with pseudocyst, s/p gastric stent placement 2. Sepsis secondary to peritonitis 3. Peritonitis w/ loculations 4. Cholelithiasis and choledocholithiasis 5. Malnutrition, mod protein calorie deficiency 6. Hypokalemia 7. Diabetes mellitus, type 2 8. Physical deconditioning 9. Uterine fibroid/ adnexal mass 10. Hyperthyroidism 11. Anemia of chronic disease 12. Stage 2 sacral decubitus ulcer 13. Sinus Tachycardia 14. Colitis, treated 15. Hypoalbuminemia 16. Hypophosphatemia,resolved 17. Hypomagnesemia, resolved 18. Hypocalcemia, resolved 19. L ureteral stent 20. Urinary retention, resolved Discharge condition: Guarded Diet: Dobhoff tube feed- Diabetisource at 60 c.c/hr. Water flush q4-6 hours with 20 c.c Activity: As tolerated Consults: GI consult with Surgical consult with Dr.Ponce Peralta ID consult with Noy Rolle Palliative consult with Chika Zuniga Procedures: EGD with pseudocyst biopsy and Axios stent placement Paracentesis x 3 Enteroscopy for Dobhoff placement x 2 CT abdomen/pelvis x 3 Discharge medication: Please see home medication reconciliation list Discharge time spent: 40 min Results Review General results Labs (Last four charted values) WBC 5.5 (AUG 17) 7.2 (AUG 15) 7.1 (AUG 14) 6.7 (AUG 11) Hgb L 9.6 (AUG 17) L 9.3 (AUG 15) L 9.4 (AUG 14) L 9.8 (AUG 11) Hct L 28.7 (AUG 17) L 28.6 (AUG 15) L 28.5 (AUG 14) L 30.4 (AUG 11) Plt 283 (AUG 17) 261 (AUG 15) 261 (AUG 14) 223 (AUG 11) Na 136 (AUG 17) L 134 (AUG 17) 135 (AUG 16) 135 (AUG 15) K 3.9 (AUG 17) 3.9 (AUG 17) L 3.2 (AUG 16) 4.6 (AUG 15) CO2 29 (AUG 17) 24 (AUG 17) 28 (AUG 16) 26 (AUG 15) Cl 99 (AUG 17) 97 (AUG 17) 98 (AUG 16) 100 (AUG 15) Cr L 0.20 (AUG 17) L 0.20 (AUG 17) L 0.20 (AUG 16) L 0.20 (AUG 15) BUN 7 (AUG 17) 8 (AUG 17) 9 (AUG 16) 11 (AUG 15) Glucose Random 87 (AUG 17) 90 (AUG 17) H 130 (AUG 16) 71 (AUG 15) Mg 1.9 (AUG 17) 1.8 (AUG 16) 1.8 (AUG 15) 1.9 (AUG 14) Phos 2.6 (AUG 17) 3.2 (AUG 16) L 1.9 (AUG 15) L 1.8 (AUG 13) Ca 8.5 (AUG 17) 9.3 (AUG 17) 9.2 (AUG 16) 9.2 (AUG 15) PT H 14.8 (AUG 17) H 17.2 (AUG 07) H 18.8 (JUL 06) INR 1.14 (AUG 17) H 1.38 (AUG 07) H 1.54 (JUL 06) PTT 33.6 (AUG 07) 31.6 (JUL 06) Physical Examination VS/Measurements Vital Signs (last 24 hrs) Last Charted Temp Oral H 99.4DegF (AUG 17:00) Heart Rate Peripheral H 111bpm (AUG 17:) Resp Rate 18 BRMIN (AUG 17:) SBP 114 mmHg (AUG 17:) DBP 76 mmHg (AUG 17:) General: Alert and oriented, No acute distress Eye: Pupils are equal, round, and reactive to light, Extraocular movements are intact. HENT: Normocephalic, Normal Hearing, Dobhoff tube. Neck: Supple, No jugular venous distension. Respiratory: Lungs are clear to auscultation, Respirations are non-labored, breath sounds are equal Cardiovascular: Normal rate, Regular rhythm Gastrointestinal: Soft, Mild abd tenderness Abdomen mild distension, Normal bowel sounds. Musculoskeletal: Normal range of motion Integumentary: Warm. Sacral pressure ulcer Neurologic: Alert, Oriented, Normal sensory, No focal deficits. Psychiatric: Cooperative, Appropriate mood and affect Hospital Course This is a 40-year-old female with past medical history of hypertension, diabetes mellitus, who was initially admitted at [facility] for thyroid storm as well as acute pancreatitis that was also complicated with multiple pseudocysts. Patient was then transferred to TCU for prolonged TPN for bowel rest and then advancement of the diet. During this stay, patient was continued to have nausea and was not able to tolerate oral diet. Patient also developed peritonitis and ascites and was drained multiple times. A surgical consult with Dr.Ponce Rice and an ID consult with was obtained. Patient was started on iv antibiotics, cefepime and vancomycin and will need 10 more days of antibiotics per ID. A GI consult also was obtianed from who performed an EGD with pseudocyst biopsy and Axios stent placement. Patient's TPN was dsicontinued and started on tube feeds, for that a dobhoff tube was placed by enteroscopy. The last CT abdomen/pelvis also showed cholelithiasis with choledocholelithiasis and GI was planning for an ERCP for next week. GI also had a plan to remove Axios stent next week. Patient will need a repeat CT abdomen/pelvis with only IV contrast, next week per GI recommendation. The CT Abdome/pelvis also shows uterine fibroids/adnexal mass, that also possible contributing the pelvic fluids needs gynecology and oncology evaluation. A pallaitive consult was requested from , but was unable to adress the goals of care as patient's condition have not been addressed completely. Patient was transferred back to [facility] as she is clinically not improving as the pelvic fluid collections around the pelvic mass recurs even draining after multiple times and will require a gynecology and oncology evaluation. Addendum by Amada López MD on 08/18/2016 13:44 PT SEEN and examined, agree with above recommendations. transfer to [facility] , team accepted patient there for acute level of care Extracted from:Title: Progress Note Author: En Brito MD Date: 08/17/16 Impression and Plan 40 year old with chronic pancreatitis and pancreatic pseudocyst s/p Axios stent and Naso-duodenal TF under FL. Ferritin elevated, most likely due to inflammation. - TF running at 60 cc/hr - Flush the TF every 4-6 hours - Check LFT daily - Check Phospahte, Mag, Ionized calcium, Potassium daily - Repeat CT scan of abdomen and pelvis with only IV contast next week - Will plan to remove Axios stent and would consider performing ERCP next week - D/w primary attending and agree with the plan of care. Extracted from:Title: Supportive Medicine Consult H&P * Author: Chika Colvin MD Date: 08/15/16 Impression and Plan see above Extracted from:Title: IR paracentesis Author: Phani Tinajero MD Date: 07/19/16 HPI: Patient with pancreatitis and other PMH as stated below, with ascites. A paracentesis is requested. PMH/PSH: Goiter Heartburn Gallbladder disease Diabetes Tubal ligation Medications: Scheduled Meds (13):albumin human (albumin human 25% intravenous solution), calcium carbonate (calcium carbonate 500 mg (200 mg elemental calcium) oral tablet), cholestyramine, enoxaparin, fat emulsion, intravenous, furosemide (Lasix), insulin detemir, magnesium oxide, methimazole (Tapazole), pancrelipase (Creon 24,000 units oral delayed release capsule), pantoprazole, potassium chloride (potassium chloride 20 mEq oral tablet, extended release), propranolol Unscheduled Meds (2):influenza virus vaccine, inactivated, pneumococcal 23- valent vaccine PRN Meds (19):Dextrose 50% in Water IV (Dextrose 50% Syringe), Dextrose 50% in Water IV (Dextrose 50% Syringe), acetaminophen-codeine (Tylenol with Codeine #3 oral tablet), acetaminophen, albuterol-ipratropium (DuoNeb inhalation solution), docusate, glucagon, hydromorphone, insulin aspart, insulin aspart, insulin aspart, insulin aspart, insulin aspart, insulin aspart, insulin aspart, insulin aspart, insulin aspart, ondansetron, oxyCODONE (oxyCODONE 5 mg oral tablet) One Time Meds (1):(Completed) hydromorphone Continuous Infusions (1):TPN solution, adult 1,490 mL Allergies: ciprofloxacin Review of systems: No fever, chills, bodyaches, chest pain, shortness of breath, N/V/D. ROS negative except as stated in HPI. Vitals Tmp(F) Pulse BP RR SpO2 FIO2 07/19 08:55 99.8 115 138/72 18 97 2.0L/m 07/19 08:50 ---- 113 138/76 16 97 2.0L/m 07/19 08:00 98.8 112 124/76 18 --- --- 07/19 04:00 98.8 108 125/77 20 --- --- 07/19 00:00 98.7 101 127/81 20 --- --- 24 Hr Tmax: 99.8F (37.67c) at 07/19 08:55 Vital Signs are the last 5 in the past 48 hours. Physical Exam: General: No acute distress, awake/alert/oriented x 3 Pulmonary: Lungs clear bilaterally, no rales or wheezes Cardiac: Regular rate and rhythm, no murmur Abdomen: Nontender, distended, no rebound or guarding The available relevant labs and imaging were reviewed. The Patient's ASA classification is 2. The Mallampati score is 2. The risks of the procedure, including pain, bleeding, infection, damage to adjacent structures, need for additional procedures, and any other procedure- specific risks were discussed with the patient and documented in the signed consent form. The patient understands and wishes to undergo the procedure. Will perform a paracentesis. 08/17/2016 [facility] Extracted from:Title: Progress Note * Author: Tri Dee MD Date: 07/05/16 Impression and Plan The patient was seen and examined by me with the resident/VETERINARY SURGEON/PA and I agree with the History/Exam documented. 07/05/2016 [facility] Plan of Care Plan of Care Date Source DM Microalbumin Urine Scrn (Yearly) 09/26/2018 [facility] DM HGBA1C (Yearly) 09/23/2018 [facility] IMM Influenza Seasonal Apr to September (>/=19 yrs) 04/28/2018 [facility] Discharge Date 04/20/18 3:16pm Disposition HOME, SELF-CARE Condition at Discharge Stable Instructions/Education Provided Back Pain Urinary Tract Infection - Women Forms Provided Work/School Excuse Prescriptions See Medication Section Referrals PHILLIP XAVIER MD Address: [address] [place] [address] JANETH THOMPSON MD Order Date: Call for an appointment Address: [address] [place] [address] Additional Instructions/Education CLINICAL IMPRESSION Urinary tract infection. DISCHARGE INSTRUCTIONS Prescription Medications: Macrobid 100 mg: take 1 capsule orally every 12 hours for 7 days. No refill. Substitution is permissible. 04/20/2018 [facility] Breast Cancer Scrn (Yearly) 2014 [facility] Cervical Cancer Scrn (3 Yrs) 10/27/1995 [facility] DM Foot Exam (Yearly) 1992 [facility] Social History Social History Date Source Social History Problem Response Recorded Date/Time Onset [...] No 09/01/2017 4:59am Not Applicable Not Applicable 04/20/2018 [facility] Tobacco UseTypesPacks/DayYears UsedDate Never Assessed Sex Assigned at BirthDate Recorded Not on file Job Start DateOccupationIndustry Not on file Not on file Not on file Travel HistoryTravel StartTravel End No recent travel history available. 09/29/2017 [facility] Social History TypeResponse Substance Abuse Use: None. Sexual Sexually active: Yes. Alcohol Never Smoking Status Former smoker; Type: Cigarettes; Ready to change: No; Concerns about tobacco use in household: No; Exposure to Tobacco Smoke None; Cigarette Smoking Last 365 Days No; Reg Smoking Cessation Counseling No; Other Tobacco Frequency 07/05/2014 Quit; entered on: 03/10/17 07/06/2016 [facility] Social History TypeResponse Substance Abuse Use: None. Sexual Sexually active: Yes. Alcohol Never Smoking Status Former smoker; Type: Cigarettes; Ready to change: No; Concerns about tobacco use in household: No; Exposure to Tobacco Smoke None; Cigarette Smoking Last 365 Days No; Reg Smoking Cessation Counseling No; Other Tobacco Frequency 07/05/2014 Quit; entered on: 03/10/17 07/06/2016 [facility] Social History TypeResponse Substance Abuse Use: None. Sexual Sexually active: Yes. Alcohol Never Smoking Status Former smoker; Ready to change: No; Concerns about tobacco use in household: No; Exposure to Tobacco Smoke None; Cigarette Smoking Last 365 Days No; Reg Smoking Cessation Counseling No 07/06/2016 [facility] Social History TypeResponse Substance Abuse Use: None. Sexual Sexually active: Yes. Alcohol Never Smoking Status Former smoker; Type: Cigarettes; Ready to change: No; Concerns about tobacco use in household: No; Exposure to Tobacco Smoke None; Cigarette Smoking Last 365 Days No; Reg Smoking Cessation Counseling No; Other Tobacco Frequency 07/05/2014 Quit; entered on: 03/10/17 07/06/2016 [facility] [place] Family History Value Date Source Medical HistoryRelationNameComments Diabetes type II Mother Heart disease Other RelationNameStatusComments Mother Other 09/17/2018 [facility] Advance Directives Order Name Results Value Date Source Advance Directives Advance Directives For more information, please contact:[address] [id number] Code Status on FileCode StatusDate ActivatedDate InactivatedComments Full Code 09/27/2017 9:00 AM 09/30/2017 5:20 PM 09/17/2018 [facility] Advance Directives Advance Directives Directive Response Recorded Date/Time Does the patient have an advance directive? No 09/01/17 4:59am If yes, is advance directive on file with [facility]? No 10/23/17 10:48pm If not on file with [facility] will patient provide a copy? Yes 10/23/17 10:48pm Do you have a Directive to Physician? No 04/20/18 11:10am Do you have a Medical Power of Medical Staff Services Manager? No 04/20/18 11:10am Do you have an out of hospital Do Not Resuscitate Order? No 04/20/18 11:10am Do you have any special needs we should be aware of? No 04/20/18 11:10am Do you have a support person here with you today? Yes 04/20/18 11:10am Did patient receive Notice of Privacy Practices? Yes 04/20/18 11:10am Did patient receive patient rights and responsibilities? Yes 04/20/18 11:10am 04/20/2018 [facility] Functional Status No Data Provided for This Section
--- OUTSIDE RECORDS SUMMARY | 2019-02-11 16:44 | XMS REPORT | Summary of Care ---
Author Author [facility] Organization [facility] Address Unknown Phone Unavailable Encounter [facility](JOSEPH) [id number] Date(s): 03/09/17 - 03/20/17 [facility] [id number] [place] [address]- Discharge Disposition: Home or Self Care Attending Physician: Darien Queen MD Admitting Physician: Darien Queen MD Vital Signs 1 2 3 Most recent to oldest [Reference Range]: 154.94 cm (03/10/17 1:33 AM) 154.94 cm (03/09/17 7:59 PM) Height 37.455 kg (03/18/17 6:11 AM) 36.591 kg (03/16/17 6:32 AM) 35.909 kg (03/15/17 6:02 AM) Current Weight 98.0 DegF (03/20/17 11:41 AM) 98.0 DegF (03/20/17 7:48 AM) 98.1 DegF (03/20/17 3:47 AM) Temperature Oral [96.4-99.1 DegF] 116/78 mmHg (03/20/17 11:41 AM) 108/69 mmHg (03/20/17 7:48 AM) 103/65 mmHg (03/20/17 3:47 AM) Blood Pressure [90-140/60-90 mmHg] 16 BRMIN (03/20/17 11:41 AM) 16 BRMIN (03/20/17 7:48 AM) 16 BRMIN (03/20/17 3:47 AM) Respiratory Rate [14-20 BRMIN] 92 bpm (03/20/17 11:41 AM) 82 bpm (03/20/17 7:48 AM) 91 bpm (03/20/17 3:47 AM) Peripheral Pulse Rate [60-100 bpm] 37.756 kg (03/20/17 4:40 AM) 38.185 kg (03/19/17 6:15 AM) 37.33 kg (03/17/17 6:34 AM) Weight 14.79 m2 (03/10/17 1:33 AM) 15.15 m2 (03/09/17 7:59 PM) Body Mass Index Problem List Condition Effective Dates Status Health Status Informant Diabetes(Confirmed) Active Gallbladder Active disease(Confirmed)1 Goiter(Confirmed) 2004 Active Heartburn(Confirmed) Resolved Hypomagnesemia(Confi Active rmed) Hypophosphatemia(Con Active firmed) MRSA(Confirmed)2, 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 Allergies, Adverse Reactions, Alerts Substance Reaction Severity Status Ancef Severe Active ciprofloxacin Active Keflex1 Rash, NOS Active 1tolerated [place]23[place]16 [place] [facility] [place] doses as per MD and as documented in e-MAR Medications Augmentin 875 mg oral tablet 1 tab, Route: PO, Drug Form: TAB, Dosing Weight 35.5, kg, Q12H, Start date: 02/26 11/12 9:12:00 CDT, Stop date: 03/18/17 9:00:00 CDT Notes: With food.(Same as: Augmentin 875) Start Date: 03/11/17 Stop Date: 03/18/17 Status: Completed Beneprotein 7 gm pkt 1 pkt, Route: PO, Drug Form: PWDR, Dosing Weight 35.5, kg, TID-Meals, Start date : 03/11/17 17:00:00 CDT, Duration: 30 day, Stop date: 04/10/17 12:00:00 CDT Notes: (Same as: Beneprotein) Start Date: 03/11/17 Stop Date: 03/20/17 Status: Discontinued calcium carbonate 500 mg (200 mg elemental calcium) oral tablet 500 mg, Route: PO, PRN, Dosing Weight 36.364, kg, PRN Abnormal Lab Result, FOR I CU USE ONLY, Start date: 03/10/17 0:59:00 CDT, Duration: 30 day, Stop date: 03/29 09/14 0:58:00 CDT Start Date: 03/10/17 Stop Date: 03/10/17 Status: Discontinued calcium carbonate 500 mg (200 mg elemental calcium) oral tablet 1,000 mg, Route: PO, PRN, Dosing Weight 36.364, kg, PRN Abnormal Lab Result, FOR ICU USE ONLY, Start date: 03/10/17 0:59:00 CDT, Duration: 30 day, Stop date: 0:58:00 CDT Start Date: 03/10/17 Stop Date: 03/10/17 Status: Discontinued calcium carbonate 500 mg (200 mg elemental calcium) oral tablet 500 mg, 1 tab, Route: PO, Drug form: TAB, PRN, Dosing Weight 35.5, kg, PRN Abnor mal Lab Result, FOR ICU USE ONLY, Start date: 03/11/17 8:36:00 CDT, Duration: 30 day, Stop date: 04/10/17 8:35:00 CDT Notes: 500mg elemental [id number] calcium carbonate. Contains 500mg element al calcium. (Same As: OsCal 500) Start Date: 03/11/17 Stop Date: 03/12/17 Status: Discontinued calcium carbonate 500 mg (200 mg elemental calcium) oral tablet 1,000 mg, 2 tab, Route: PO, Drug form: TAB, PRN, Dosing Weight 35.5, kg, PRN Abn ormal Lab Result, FOR ICU USE ONLY, Start date: 03/11/17 8:36:00 CDT, Duration: 30 day, Stop date: 04/10/17 8:35:00 CDT Notes: 500mg elemental [id number] calcium carbonate. Contains 500mg element al calcium. (Same As: OsCal 500) Start Date: 03/11/17 Stop Date: 03/12/17 Status: Discontinued calcium gluconate 1 gm, Route: IVPB, PRN, Dosing Weight 36.364, kg, PRN Abnormal Lab Result, Start date: 03/10/17 0:59:00 CDT, Duration: 30 day, Stop date: 04/09/17 0:58:00 CDT, FOR ICU USE ONLY Start Date: 03/10/17 Stop Date: 03/10/17 Status: Discontinued calcium gluconate 1 gm, 50 mL, Route: IVPB, Drug form: INJ, PRN, Dosing Weight 35.5, kg, PRN Abnor mal Lab Result, Start date: 03/11/17 8:36:00 CDT, Duration: 30 day, Stop date: 0 04/10/17 8:35:00 CDT, FOR ICU USE ONLY Notes: WASTE: F/P - Sink; E - Municipal Trash Bin Start Date: 03/11/17 Stop Date: 03/12/17 Status: Discontinued Creon 24,000 units oral delayed release capsule 1 cap, Route: PO, Drug Form: DRC, Dosing Weight 35.5, kg, TID-Before Meals, Star t date: 03/10/17 7:30:00 CDT, Duration: 30 day, Stop date: 04/08/17 16:30:00 CDT Notes: Same as: Creon DRC 24 : lipase 24,000 units, protease 76,000 units, amyla se 120,000 units Start Date: 03/10/17 Stop Date: 03/14/17 Status: Discontinued D5NS 1,000 mL 1,000 mL, Rate: 250 ml/hr, Infuse over: 4 hr, Route: IV, Dosing Weight 35.5 kg, Total Volume: 1,000, Start date: 03/10/17 9:51:00 CDT, Duration: 30 day, Stop da te: 04/09/17 9:50:00 CDT Start Date: 03/10/17 Stop Date: 03/10/17 Status: Discontinued D5NS 1,000 mL 1,000 mL, Rate: 250 ml/hr, Infuse over: 4 hr, Route: IV, Dosing Weight 36.364 kg , Total Volume: 1,000, Start date: 03/10/17 0:53:00 CDT, Duration: 30 day, Stop date: 04/09/17 0:52:00 CDT Start Date: 03/10/17 Stop Date: 03/10/17 Status: Discontinued D5NS 1,000 mL 1,000 mL, Rate: 250 ml/hr, Infuse over: 4 hr, Route: IV, Dosing Weight 36.364 kg , Total Volume: 1,000, Start date: 03/10/17 0:52:00 CDT, Duration: 30 day, Stop date: 04/09/17 0:51:00 CDT Start Date: 03/10/17 Stop Date: 03/10/17 Status: Discontinued D5W 1/2NS 1,000 mL 1,000 mL, Rate: 250 ml/hr, Infuse over: 4 hr, Route: IV, Dosing Weight 35.5 kg, Total Volume: 1,000, Start date: 03/10/17 2:29:00 CDT, Duration: 30 day, Stop da te: 04/09/17 2:28:00 CDT Start Date: 03/10/17 Stop Date: 03/10/17 Status: Discontinued Dextrose 50% Syringe 12.5 gm, 25 mL, Route: IVP, Drug Form: INJ, Dosing Weight 35.5, kg, PRN, PRN Blo od Glucose Results, Start date: 03/10/17 6:39:00 CDT, Duration: 30 day, Stop chely e: 04/09/17 6:38:00 CDT Start Date: 03/10/17 Stop Date: 03/10/17 Status: Discontinued Dextrose 50% Syringe 25 gm, 50 mL, Route: IVP, Drug Form: INJ, Dosing Weight 35.5, kg, PRN, PRN Blood Glucose Results, Start date: 03/10/17 6:39:00 CDT, Duration: 30 day, Stop date: 04/09/17 6:38:00 CDT Start Date: 03/10/17 Stop Date: 03/10/17 Status: Discontinued Dextrose 50% Syringe 25 gm, 50 mL, Route: IVP, Drug Form: INJ, Dosing Weight 35.5, kg, PRN, PRN Blood Glucose Results, Start date: 03/11/17 9:03:00 CDT, Duration: 30 day, Stop date: 04/10/17 9:02:00 CDT Start Date: 03/11/17 Stop Date: 03/20/17 Status: Discontinued Dextrose 50% Syringe 12.5 gm, 25 mL, Route: IVP, Drug Form: INJ, Dosing Weight 35.5, kg, PRN, PRN Blo od Glucose Results, Start date: 03/11/17 9:03:00 CDT, Duration: 30 day, Stop chely e: 04/10/17 9:02:00 CDT Start Date: 03/11/17 Stop Date: 03/20/17 Status: Discontinued Dextrose 50% Syringe 25 gm, 50 mL, Route: IVP, Drug Form: INJ, Dosing Weight 35.5, kg, PRN, PRN Blood Glucose Results, Start date: 03/10/17 9:51:00 CDT, Duration: 30 day, Stop date: 04/09/17 9:50:00 CDT Start Date: 03/10/17 Stop Date: 03/10/17 Status: Discontinued Dextrose 50% Syringe 12.5 gm, 25 mL, Route: IVP, Drug Form: INJ, Dosing Weight 35.5, kg, PRN, PRN Blo od Glucose Results, Start date: 03/10/17 9:51:00 CDT, Duration: 30 day, Stop chely e: 04/09/17 9:50:00 CDT Start Date: 03/10/17 Stop Date: 03/10/17 Status: Discontinued Dextrose 50% Syringe 12.5 gm, 25 mL, Route: IVP, Drug Form: INJ, Dosing Weight 36.364, kg, PRN, PRN B lood Glucose Results, Start date: 03/10/17 0:53:00 CDT, Duration: 30 day, Stop d ate: 04/09/17 0:52:00 CDT Start Date: 03/10/17 Stop Date: 03/10/17 Status: Discontinued Dextrose 50% Syringe 25 gm, 50 mL, Route: IVP, Drug Form: INJ, Dosing Weight 36.364, kg, PRN, PRN Blo od Glucose Results, Start date: 03/10/17 0:53:00 CDT, Duration: 30 day, Stop chely e: 04/09/17 0:52:00 CDT Start Date: 03/10/17 Stop Date: 03/10/17 Status: Discontinued Dextrose 50% Syringe 12.5 gm, 25 mL, Route: IVP, Drug Form: INJ, Dosing Weight 36.364, kg, PRN, PRN B lood Glucose Results, Start date: 03/10/17 0:52:00 CDT, Duration: 30 day, Stop d ate: 04/09/17 0:51:00 CDT Start Date: 03/10/17 Stop Date: 03/10/17 Status: Discontinued Dextrose 50% Syringe 25 gm, 50 mL, Route: IVP, Drug Form: INJ, Dosing Weight 36.364, kg, PRN, PRN Blo od Glucose Results, Start date: 03/10/17 0:52:00 CDT, Duration: 30 day, Stop chely e: 04/09/17 0:51:00 CDT Start Date: 03/10/17 Stop Date: 03/10/17 Status: Discontinued Dextrose 50% Syringe 25 gm, 50 mL, Route: IVP, Drug Form: INJ, Dosing Weight 35.5, kg, PRN, PRN Blood Glucose Results, Start date: 03/10/17 16:18:00 CDT, Duration: 30 day, Stop date: 04/09/17 16:17:00 CDT Start Date: 03/10/17 Stop Date: 03/11/17 Status: Discontinued Dextrose 50% Syringe 12.5 gm, 25 mL, Route: IVP, Drug Form: INJ, Dosing Weight 35.5, kg, PRN, PRN Blo od Glucose Results, Start date: 03/10/17 16:18:00 CDT, Duration: 30 day, Stop da te: 04/09/17 16:17:00 CDT Start Date: 03/10/17 Stop Date: 03/11/17 Status: Discontinued Dextrose 50% Syringe 25 gm, 50 mL, Route: IVP, Drug Form: INJ, Dosing Weight 35.5, kg, PRN, PRN Blood Glucose Results, Start date: 03/11/17 1:31:00 CDT, Duration: 30 day, Stop date: 04/10/17 1:30:00 CDT Start Date: 03/11/17 Stop Date: 03/11/17 Status: Discontinued Dextrose 50% Syringe 12.5 gm, 25 mL, Route: IVP, Drug Form: INJ, Dosing Weight 35.5, kg, PRN, PRN Blo od Glucose Results, Start date: 03/11/17 1:31:00 CDT, Duration: 30 day, Stop chely e: 04/10/17 1:30:00 CDT Start Date: 03/11/17 Stop Date: 03/11/17 Status: Discontinued enoxaparin 40 mg, 0.4 mL, Route: SUB-Q, Drug form: INJ, [id number], Dosing Weight 36.364, kg, Start date: 03/10/17 0:00:00 CDT, Duration: 30 day, Stop date: 04/08/17 0:00:00 CDT Notes: (Same as: Lovenox) Start Date: 03/10/17 Stop Date: 03/20/17 Status: Discontinued esmolol-NS 2,500 mg 2,500 mg, 250 mL, Rate: Titrate, Start Dose: 50 microgram/kg/min, Titration: 50 microgram/kg/min every 15 minutes, Goal(s): HR < 120, Max Dose: 300 microgram/kg/min, Route: IV, Dosing Weight 36.364 kg, Total Volume: 250, Start date: 03/09/17 20:29:00... Notes: (Same as: Brevibloc)10 mg/ml conc. Start Date: 03/09/17 Stop Date: 03/11/17 Status: Discontinued famotidine 20 mg, 2 mL, Route: IVP, Drug form: INJ, Q12H, Dosing Weight 36.364, kg, Start d ate: 03/10/17 9:00:00 CDT, Duration: 30 day, Stop date: 04/08/17 21:00:00 CDT Notes: (Same as: Pepcid)Can be dilute in 5-10cc NS IVP: Slow IV push over at le ast 2 minutes. Start Date: 03/10/17 Stop Date: 03/11/17 Status: Discontinued famotidine 20 mg, 1 tab, Route: PO, Drug form: TAB, Q12H, Dosing Weight 35.5, kg, PRN Heart burn, Start date: 03/11/17 9:08:00 CDT, Duration: 30 day, Stop date: 04/10/17 9: 07:00 CDT Notes: (Same as: Pepcid) Start Date: 03/11/17 Stop Date: 03/20/17 Status: Discontinued glucagon 1 mg, Route: IM, Drug form: PDR/INJ, PRN, Dosing Weight 35.5, kg, PRN Blood Gluc ose Results, Start date: 03/10/17 6:39:00 CDT, Duration: 30 day, Stop date: 03/29 09/14 6:38:00 CDT Start Date: 03/10/17 Stop Date: 03/10/17 Status: Discontinued glucagon 1 mg, Route: IM, Drug form: PDR/INJ, PRN, Dosing Weight 35.5, kg, PRN Blood Gluc ose Results, Start date: 03/11/17 9:03:00 CDT, Duration: 30 day, Stop date: 03/29 10/12 9:02:00 CDT Start Date: 03/11/17 Stop Date: 03/20/17 Status: Discontinued glucagon 1 mg, Route: IM, Drug form: PDR/INJ, PRN, Dosing Weight 35.5, kg, PRN Blood Gluc ose Results, Start date: 03/10/17 9:51:00 CDT, Duration: 30 day, Stop date: 03/29 09/14 9:50:00 CDT Start Date: 03/10/17 Stop Date: 03/10/17 Status: Discontinued glucagon 1 mg, Route: IM, Drug form: PDR/INJ, PRN, Dosing Weight 36.364, kg, PRN Blood Gl ucose Results, Start date: 03/10/17 0:53:00 CDT, Duration: 30 day, Stop date: 0:52:00 CDT Start Date: 03/10/17 Stop Date: 03/10/17 Status: Discontinued glucagon 1 mg, Route: IM, Drug form: PDR/INJ, PRN, Dosing Weight 36.364, kg, PRN Blood Gl ucose Results, Start date: 03/10/17 0:52:00 CDT, Duration: 30 day, Stop date: 0:51:00 CDT Start Date: 03/10/17 Stop Date: 03/10/17 Status: Discontinued Insulin (regular) Titrate IV additive 100 unit + sodium chloride 0.9% INJ 99 mL 99 mL, Rate: Titrate, Dosing Weight 35.5, kg, Route: IV, Total Volume: 100, Prio rity: Routine, Start Date: 03/10/17 9:51:00 CDT, Duration: 30 day, Stop date: 9:50:00 CDT, Replace Every: 24 hr Notes: (Same as: Humulin R and NovoLIN R)WASTE: F/P - Black; E - Municipal Trash Bin (Do not shake) Start Date: 03/10/17 Stop Date: 03/10/17 Status: Discontinued Insulin (regular) Titrate IV additive 100 unit + sodium chloride 0.9% INJ 99 mL 99 mL, Rate: Titrate, Dosing Weight 36.364, kg, Route: IV, Total Volume: 100, Pr iority: Routine, Start Date: 03/10/17 0:52:00 CDT, Duration: 30 day, Stop date: 04/09/17 0:51:00 CDT, Replace Every: 24 hr Notes: (Same as: Humulin R and NovoLIN R)WASTE: F/P - Black; E - Municipal Trash Bin (Do not shake) Start Date: 03/10/17 Stop Date: 03/10/17 Status: Discontinued Insulin (regular) Titrate IV additive 100 unit + Sodium Chloride 0.9% IV 99 mL 99 mL, Rate: Titrate, Dosing Weight 36.364, kg, Route: IV, Total Volume: 99, Nicole ority: Routine, Start Date: 03/10/17 0:53:00 CDT, Duration: 30 day, Stop date: 0 04/09/17 0:52:00 CDT, Replace Every: 24 hr Start Date: 03/10/17 Stop Date: 03/10/17 Status: Deleted insulin aspart 4 unit, 0.04 mL, Route: SUB-Q, Drug form: SOLN, TID-Before Meals, Dosing Weight 35.5, kg, PRN Blood Glucose Results, Start date: 03/10/17 6:39:00 CDT, Duration: 30 day, Stop date: 04/09/17 6:38:00 CDT Notes: Roll in palms of hands gently; Do not shake vigorously. (Same as: NovoLO G)"single patient use only"WASTE: F/P - Black; E - Municipal Trash Bin Stable f or 28 days at room temperature.Expires in days from Date Start Date: 03/10/17 Stop Date: 03/10/17 Status: Discontinued insulin aspart 1 unit, 0.01 mL, Route: SUB-Q, Drug form: SOLN, TID-Before Meals, Dosing Weight 35.5, kg, PRN Blood Glucose Results, Start date: 03/10/17 6:39:00 CDT, Duration: 30 day, Stop date: 04/09/17 6:38:00 CDT Notes: Roll in palms of hands gently; Do not shake vigorously. (Same as: NovoJACQUELIN Soto)"single patient use only"WASTE: F/P - Black; E - Municipal Trash Bin Stable f or 28 days at room temperature.Expires in days from Date Start Date: 03/10/17 Stop Date: 03/10/17 Status: Discontinued insulin aspart 5 unit, 0.05 mL, Route: SUB-Q, Drug form: SOLN, TID-Before Meals, Dosing Weight 35.5, kg, PRN Blood Glucose Results, Start date: 03/10/17 6:39:00 CDT, Duration: 30 day, Stop date: 04/09/17 6:38:00 CDT Notes: Roll in palms of hands gently; Do not shake vigorously. (Same as: NovoJACQUELIN Soto)"single patient use only"WASTE: F/P - Black; E - Municipal Trash Bin Stable f or 28 days at room temperature.Expires in days from Date Start Date: 03/10/17 Stop Date: 03/10/17 Status: Discontinued insulin aspart 2 unit, 0.02 mL, Route: SUB-Q, Drug form: SOLN, TID-Before Meals, Dosing Weight 35.5, kg, PRN Blood Glucose Results, Start date: 03/10/17 6:39:00 CDT, Duration: 30 day, Stop date: 04/09/17 6:38:00 CDT Notes: Roll in palms of hands gently; Do not shake vigorously. (Same as: NovoJACQUELIN Soto)"single patient use only"WASTE: F/P - Black; E - Municipal Trash Bin Stable f or 28 days at room temperature.Expires in days from Date Start Date: 03/10/17 Stop Date: 03/10/17 Status: Discontinued insulin aspart 3 unit, 0.03 mL, Route: SUB-Q, Drug form: SOLN, TID-Before Meals, Dosing Weight 35.5, kg, PRN Blood Glucose Results, Start date: 03/10/17 6:39:00 CDT, Duration: 30 day, Stop date: 04/09/17 6:38:00 CDT Notes: Roll in palms of hands gently; Do not shake vigorously. (Same as: Mica Soto)"single patient use only"WASTE: F/P - Black; E - Municipal Trash Bin Stable f or 28 days at room temperature.Expires in days from Date Start Date: 03/10/17 Stop Date: 03/10/17 Status: Discontinued insulin aspart 5 unit, 0.05 mL, Route: SUB-Q, Drug form: SOLN, TID-Before Meals, Dosing Weight 35.5, kg, PRN Blood Glucose Results, Start date: 03/11/17 9:03:00 CDT, Duration: 30 day, Stop date: 04/10/17 9:02:00 CDT Notes: Roll in palms of hands gently; Do not shake vigorously. (Same as: Mica Soto)"single patient use only"WASTE: F/P - Black; E - Municipal Trash Bin Stable f or 28 days at room temperature.Expires in days from Date Start Date: 03/11/17 Stop Date: 03/20/17 Status: Discontinued insulin aspart 3 unit, 0.03 mL, Route: SUB-Q, Drug form: SOLN, TID-Before Meals, Dosing Weight 35.5, kg, PRN Blood Glucose Results, Start date: 03/11/17 9:03:00 CDT, Duration: 30 day, Stop date: 04/10/17 9:02:00 CDT Notes: Roll in palms of hands gently; Do not shake vigorously. (Same as: Mica Soto)"single patient use only"WASTE: F/P - Black; E - Municipal Trash Bin Stable f or 28 days at room temperature.Expires in days from Date Start Date: 03/11/17 Stop Date: 03/20/17 Status: Discontinued insulin aspart 4 unit, 0.04 mL, Route: SUB-Q, Drug form: SOLN, TID-Before Meals, Dosing Weight 35.5, kg, PRN Blood Glucose Results, Start date: 03/11/17 9:03:00 CDT, Duration: 30 day, Stop date: 04/10/17 9:02:00 CDT Notes: Roll in palms of hands gently; Do not shake vigorously. (Same as: NovoJACQUELIN Soto)"single patient use only"WASTE: F/P - Black; E - Municipal Trash Bin Stable f or 28 days at room temperature.Expires in days from Date Start Date: 03/11/17 Stop Date: 03/20/17 Status: Discontinued insulin aspart 1 unit, 0.01 mL, Route: SUB-Q, Drug form: SOLN, TID-Before Meals, Dosing Weight 35.5, kg, PRN Blood Glucose Results, Start date: 03/11/17 9:03:00 CDT, Duration: 30 day, Stop date: 04/10/17 9:02:00 CDT Notes: Roll in palms of hands gently; Do not shake vigorously. (Same as: Mica Soto)"single patient use only"WASTE: F/P - Black; E - Municipal Trash Bin Stable f or 28 days at room temperature.Expires in days from Date Start Date: 03/11/17 Stop Date: 03/20/17 Status: Discontinued insulin aspart 2 unit, 0.02 mL, Route: SUB-Q, Drug form: SOLN, TID-Before Meals, Dosing Weight 35.5, kg, PRN Blood Glucose Results, Start date: 03/11/17 9:03:00 CDT, Duration: 30 day, Stop date: 04/10/17 9:02:00 CDT Notes: Roll in palms of hands gently; Do not shake vigorously. (Same as: Mica Soto)"single patient use only"WASTE: F/P - Black; E - Municipal Trash Bin Stable f or 28 days at room temperature.Expires in days from Date Start Date: 03/11/17 Stop Date: 03/20/17 Status: Discontinued insulin aspart 3 unit, 0.03 mL, Route: SUB-Q, Drug form: SOLN, TID-Before Meals, Dosing Weight 35.5, kg, Start date: 03/11/17 11:30:00 CDT, Stop date: 04/10/17 7:30:00 CDT Notes: Non-Formulary Drug(Same as: NovoLOG)Roll in palms of hands gently; Do no t shake vigorously. "single patient use only"WASTE: F/P - Black; E - Municipal T rash Bin Stable for 28 days at room temperature.Expires in days from ____ Date Start Date: 03/11/17 Stop Date: 03/20/17 Status: Discontinued insulin aspart 5 unit, 0.05 mL, Route: SUB-Q, Drug form: SOLN, ONCE, Dosing Weight 35.5, kg, Pr iority: NOW, Start date: 03/11/17 22:01:00 CDT, Stop date: 03/11/17 22:01:00 CDT Notes: Roll in palms of hands gently; Do not shake vigorously. (Same as: NovoJACQUELIN Soto)"single patient use only"WASTE: F/P - Black; E - Municipal Trash Bin Stable f or 28 days at room temperature.Expires in days from Date Start Date: 03/11/17 Stop Date: 03/11/17 Status: Completed insulin aspart 8 unit, 0.08 mL, Route: SUB-Q, Drug form: SOLN, TID-Before Meals, Dosing Weight 35.5, kg, PRN Blood Glucose Results, Start date: 03/10/17 11:48:00 CDT, Duration : 30 day, Stop date: 04/09/17 11:47:00 CDT Notes: Roll in palms of hands gently; Do not shake vigorously. (Same as: NovoLO G)"single patient use only"WASTE: F/P - Black; E - Municipal Trash Bin Stable f or 28 days at room temperature.Expires in days from Date Start Date: 03/10/17 Stop Date: 03/10/17 Status: Discontinued insulin aspart 10 unit, 0.1 mL, Route: SUB-Q, Drug form: SOLN, TID-Before Meals, Dosing Weight 35.5, kg, PRN Blood Glucose Results, Start date: 03/10/17 11:48:00 CDT, Duration : 30 day, Stop date: 04/09/17 11:47:00 CDT Notes: Roll in palms of hands gently; Do not shake vigorously. (Same as: Mica Soto)"single patient use only"WASTE: F/P - Black; E - Municipal Trash Bin Stable f or 28 days at room temperature.Expires in days from Date Start Date: 03/10/17 Stop Date: 03/10/17 Status: Discontinued insulin aspart 2 unit, 0.02 mL, Route: SUB-Q, Drug form: SOLN, TID-Before Meals, Dosing Weight 35.5, kg, PRN Blood Glucose Results, Start date: 03/10/17 11:48:00 CDT, Duration : 30 day, Stop date: 04/09/17 11:47:00 CDT Notes: Roll in palms of hands gently; Do not shake vigorously. (Same as: Mica Soto)"single patient use only"WASTE: F/P - Black; E - Municipal Trash Bin Stable f or 28 days at room temperature.Expires in days from Date Start Date: 03/10/17 Stop Date: 03/10/17 Status: Discontinued insulin aspart 4 unit, 0.04 mL, Route: SUB-Q, Drug form: SOLN, TID-Before Meals, Dosing Weight 35.5, kg, PRN Blood Glucose Results, Start date: 03/10/17 11:48:00 CDT, Duration : 30 day, Stop date: 04/09/17 11:47:00 CDT Notes: Roll in palms of hands gently; Do not shake vigorously. (Same as: Mica Soto)"single patient use only"WASTE: F/P - Black; E - Municipal Trash Bin Stable f or 28 days at room temperature.Expires in days from Date Start Date: 03/10/17 Stop Date: 03/10/17 Status: Discontinued insulin aspart 6 unit, 0.06 mL, Route: SUB-Q, Drug form: SOLN, TID-Before Meals, Dosing Weight 35.5, kg, PRN Blood Glucose Results, Start date: 03/10/17 11:48:00 CDT, Duration : 30 day, Stop date: 04/09/17 11:47:00 CDT Notes: Roll in palms of hands gently; Do not shake vigorously. (Same as: NovoLO G)"single patient use only"WASTE: F/P - Black; E - Municipal Trash Bin Stable f or 28 days at room temperature.Expires in days from Date Start Date: 03/10/17 Stop Date: 03/10/17 Status: Discontinued Insulin Aspart 100 unit/ml - (High CD) 3 unit, SUB-Q, TID-Before Meals, Check blood sugar before breakfast, lunch, and dinner, and inject correction doses: Inject 3 unit if Sugar 150-199, Inject 6 un its if Sugar 200-249, Inject 9 units if Sugar 250-299, Inject 12 units if Sugar 300-349, In... Start Date: 03/20/17 Stop Date: 04/19/17 Status: Ordered insulin glargine 8 unit, Route: SUB-Q, Drug form: SOLN, Bedtime, Start date: 03/14/17 0:00:00 CDT , Duration: 30 day, Stop date: 04/12/17 21:00:00 CDT Notes: (Same as: Lantus)Do not hold insulin without contacting prescriberWASTE: F/P - Black; E - Municipal Trash Bin "single patient use only" Start Date: 03/14/17 Stop Date: 03/15/17 Status: Voided With Results insulin glargine 8 unit, 0.08 mL, Route: SUB-Q, Drug form: SOLN, Bedtime, Start date: 03/15/17 21 :00:00 CDT, Duration: 30 day, Stop date: 04/13/17 21:00:00 CDT Notes: (Same as: Lantus)Do not hold insulin without contacting prescriberWASTE: F/P - Black; E - Municipal Trash Bin "single patient use only" Start Date: 03/15/17 Stop Date: 03/20/17 Status: Discontinued insulin glargine 100 units/mL subcutaneous solution 8 unit, SUB-Q, Bedtime, # 10 mL, 0 Refill(s) Start Date: 03/20/17 Stop Date: 04/19/17 Status: Ordered insulin isophane-NPH 10 unit, Route: SUB-Q, Drug form: INJ, Q12H, Dosing Weight 35.5, kg, Start date: 03/11/17 9:03:00 CDT, Duration: 30 day, Stop date: 04/10/17 9:00:00 CDT Notes: Roll in palms of hands gently; Do not shake vigorously. (Same as: NovoLI N N, Humulin N)Do not hold insulin without contacting prescriber"single patient use only"WASTE: F/P - Black; E - [facility]ash [facility] Stable for 14 days at room temperatureExpires in days from Date Start Date: 03/11/17 Stop Date: 03/14/17 Status: Discontinued insulin isophane-NPH 5 unit, 0.05 mL, Route: SUB-Q, Drug form: INJ, ONCE, Dosing Weight 35.5, kg, Nicole ority: NOW, Start date: 03/14/17 13:00:00 CDT, Stop date: 03/14/17 13:00:00 CDT Notes: Roll in palms of hands gently; Do not shake vigorously. (Same as: NovoLI N N, Humulin N)Do not hold insulin without contacting prescriber"single patient use only"WASTE: F/P - Black; E - Municipal Trash Bin Stable for 14 days at room temperatureExpires in days from Date Start Date: 03/14/17 Stop Date: 03/14/17 Status: Completed Insulin regular 100 unit + sodium chloride 0.9% 100 mL INJ (for IV set) 99 mL 99 mL, Rate: 2 ml/hr, Infuse over: 50 hr, Dosing Weight 35.5, kg, Route: IVPB, T otal Volume: 100, Start Date: 03/11/17 1:31:00 CDT, Duration: 30 day, Stop date: 04/10/17 1:30:00 CDT, Replace Every: 24 hr Notes: (Same as: Humulin R and NovoLIN R)WASTE: F/P - Black; E - Municipal Trash Bin (Do not shake) Start Date: 03/11/17 Stop Date: 03/11/17 Status: Discontinued Insulin regular 100 unit + sodium chloride 0.9% INJ 99 mL 99 mL, Rate: Start Insulin Drip Per ICU Protocol, Dosing Weight 35.5, kg, Route: IV, Total Volume: 100, Start Date: 03/10/17 16:18:00 CDT, Stop date: 04/09/17 1 6:17:00 CDT, Replace Every: 24 hr Notes: (Same as: Humulin R and NovoLIN R)WASTE: F/P - Black; E - Municipal Trash Bin (Do not shake) Start Date: 03/10/17 Stop Date: 03/11/17 Status: Discontinued Levemir FlexPen 12 unit, Route: SUB-Q, Bedtime, Dosing Weight 35.5, kg, Start date: 03/14/17 22: 52:00 CDT, Duration: 30 day, Stop date: 04/13/17 21:00:00 CDT Start Date: 03/14/17 Stop Date: 03/13/17 Status: Deleted magnesium oxide 800 mg, Route: PO, PRN, Dosing Weight 36.364, kg, PRN Abnormal Lab Result, FOR I CU USE ONLY, Start date: 03/10/17 0:59:00 CDT, Duration: 30 day, Stop date: 03/29 09/14 0:58:00 CDT Start Date: 03/10/17 Stop Date: 03/10/17 Status: Discontinued magnesium oxide 800 mg, 2 tab, Route: PO, Drug form: TAB, PRN, Dosing Weight 35.5, kg, PRN Abnor mal Lab Result, FOR ICU USE ONLY, Start date: 03/11/17 8:36:00 CDT, Duration: 30 day, Stop date: 04/10/17 8:35:00 CDT Notes: (Same as: Mag-Ox 400)Magnesium oxide [id number] elemental magnesiumDose= ____mg magnesium oxide (___mg elemental magnesium) Start Date: 03/11/17 Stop Date: 03/12/17 Status: Discontinued magnesium sulfate 2 gm, Route: IVPB, PRN, Dosing Weight 36.364, kg, PRN Abnormal Lab Result, Start date: 03/10/17 0:59:00 CDT, Duration: 30 day, Stop date: 04/09/17 0:58:00 CDT, FOR ICU USE ONLY Start Date: 03/10/17 Stop Date: 03/10/17 Status: Discontinued magnesium sulfate 1 gm, 100 mL, Route: IVPB, Drug form: INJ, PRN, Dosing Weight 35.5, kg, PRN Abno rmal Lab Result, Start date: 03/10/17 9:51:00 CDT, Duration: 30 day, Stop date: 04/09/17 9:50:00 CDT Notes: WASTE: F/P - Sink; E - Municipal Trash Bin Start Date: 03/10/17 Stop Date: 03/10/17 Status: Discontinued magnesium sulfate 1 gm, Route: IVPB, PRN, Dosing Weight 36.364, kg, PRN Abnormal Lab Result, Start date: 03/10/17 0:53:00 CDT, Duration: 30 day, Stop date: 04/09/17 0:52:00 CDT Start Date: 03/10/17 Stop Date: 03/10/17 Status: Deleted magnesium sulfate 1 gm, 100 mL, Route: IVPB, Drug form: INJ, PRN, Dosing Weight 36.364, kg, PRN Ab normal Lab Result, Start date: 03/10/17 0:52:00 CDT, Duration: 30 day, Stop date : 04/09/17 0:51:00 CDT Notes: WASTE: F/P - Sink; E - Municipal Trash Bin Start Date: 03/10/17 Stop Date: 03/10/17 Status: Discontinued magnesium sulfate 2 gm, 50 mL, Route: IVPB, Drug form: INJ, ONCE, Dosing Weight 35.5, kg, Start da te: 03/11/17 1:25:00 CDT, Duration: 2 hr, Stop date: 03/11/17 1:25:00 CDT Notes: WASTE: F/P - Sink; E - Municipal Trash Bin Start Date: 03/11/17 Stop Date: 03/11/17 Status: Completed magnesium sulfate 2 gm, 50 mL, Route: IVPB, Drug form: INJ, PRN, Dosing Weight 35.5, kg, PRN Abnor mal Lab Result, Start date: 03/11/17 8:36:00 CDT, Duration: 30 day, Stop date: 0 04/10/17 8:35:00 CDT, FOR ICU USE ONLY Notes: WASTE: F/P - Sink; E - Municipal Trash Bin Start Date: 03/11/17 Stop Date: 03/12/17 Status: Discontinued Merrem + sodium chloride 0.9% INJ 100 mL 500 mg, Route: IVPB, ONCE, Dosing Weight 36.364, kg, Priority: STAT, Start date: 03/09/17 23:34:00 CDT, Duration: 1 doses or times, Stop date: 03/09/17 23:34:00 CDT, ABX Indication: Urinary Tract Infection Notes: Same as Merrem MEDICATION WASTE Product Size: 500 mgProduct Wast ed: ___ mg Start Date: 03/09/17 Stop Date: 03/10/17 Status: Completed methimazole 10 mg, 1 tab, Route: PO, Drug form: TAB, Q8H, Dosing Weight 35.5, kg, Start date : 03/10/17 8:00:00 CDT, Duration: 30 day, Stop date: 04/09/17 0:00:00 CDT Start Date: 03/10/17 Stop Date: 03/20/17 Status: Discontinued methimazole 10 mg oral tablet 10 mg, PO, Q8H, # 90 tab, 0 Refill(s) Start Date: 03/20/17 Status: Ordered metoprolol 5 mg/5 ml INJ 5 mg, 5 mL, Route: IVP, Drug form: INJ, ONCE, Dosing Weight 35.5, kg, Start date : 03/15/17 10:45:00 CDT, Stop date: 03/15/17 10:45:00 CDT Notes: (Same as: Lopressor)Push over 2 minutes Start Date: 03/15/17 Stop Date: 03/15/17 Status: Completed metoprolol 5 mg/5 ml INJ 2.5 mg, 2.5 mL, Route: IVP, Drug form: INJ, ONCE, Dosing Weight 36.364, kg, Prio rity: STAT, Start date: 03/09/17 20:30:00 CDT, Stop date: 03/09/17 20:30:00 CDT Notes: (Same as: Lopressor)Push over 2 minutes Start Date: 03/09/17 Stop Date: 03/09/17 Status: Completed metoprolol tartrate 25 mg, 1 tab, Route: PO, Drug form: TAB, Q6H, Dosing Weight 35.5, kg, Priority: NOW, Start date: 03/15/17 10:37:00 CDT, Duration: 30 day, Stop date: 04/14/17 6: 00:00 CDT Notes: (Same as: Lopressor) Start Date: 03/15/17 Stop Date: 03/16/17 Status: Discontinued metoprolol tartrate 25 mg, 1 tab, Route: PO, Drug form: TAB, BID, Dosing Weight 35.5, kg, Start date : 03/16/17 17:00:00 CDT, Duration: 30 day, Stop date: 04/15/17 9:00:00 CDT Notes: (Same as: Lopressor) Start Date: 03/16/17 Stop Date: 03/20/17 Status: Discontinued metoprolol tartrate 25 mg oral tablet 25 mg=1 tab, PO, BID, # 60 tab, 0 Refill(s) Start Date: 03/20/17 Stop Date: 04/19/17 Status: Ordered morphine Sulfate 1 mg, 0.5 mL, Route: IVP, Drug form: SOLN, Q2H, Dosing Weight 35.5, kg, PRN Pain Score 7-10, Start date: 03/10/17 8:56:00 CDT, Duration: 30 day, Stop date: 03/29 09/14 8:55:00 CDT Start Date: 03/10/17 Stop Date: 03/20/17 Status: Discontinued morphine Sulfate 2 mg, 1 mL, Route: IVP, Drug form: INJ, ONCE, Dosing Weight 36.364, kg, Priority : STAT, Start date: 03/09/17 20:23:00 CDT, Stop date: 03/09/17 20:23:00 CDT Notes: (Same as:MORPhine Sulfate) Start Date: 03/09/17 Stop Date: 03/09/17 Status: Completed morphine Sulfate 2 mg, 1 mL, Route: IVP, Drug form: INJ, ONCE, Dosing Weight 36.364, kg, Start da te: 03/10/17 0:50:00 CDT, Stop date: 03/10/17 0:50:00 CDT Notes: (Same as:MORPhine Sulfate) Start Date: 03/10/17 Stop Date: 03/10/17 Status: Completed morphine Sulfate 2 mg, 1 mL, Route: IVP, Drug form: SOLN, Q4H, Dosing Weight 35.5, kg, PRN Other -See Comment, Start date: 03/10/17 11:53:00 CDT, Duration: 30 day, Stop date: 11:52:00 CDT Start Date: 03/10/17 Stop Date: 03/20/17 Status: Discontinued morphine Sulfate 2 mg, 1 mL, Route: IVP, Drug form: SOLN, ONCE, Dosing Weight 36.364, kg, Start d ate: 03/10/17 0:28:00 CDT, Stop date: 03/10/17 0:28:00 CDT Start Date: 03/10/17 Stop Date: 03/10/17 Status: Deleted mupirocin topical 2% ointment 1 appl, Route: NASAL, Q12H, Drug form: OINT, Start date: 03/10/17 9:00:00 CDT, D uration: 5 day, Stop date: 03/14/17 21:00:00 CDT Start Date: 03/10/17 Stop Date: 03/14/17 Status: Completed [place] 10/325 oral tablet 1 tab, Route: PO, Drug Form: TAB, Dosing Weight 35.5, kg, Q6H, PRN Pain Score 6- 10, Start date: 03/10/17 11:54:00 CDT, Duration: 30 day, Stop date: 04/09/17 11: 53:00 CDT Notes: Do not exceed 4gm/day of acetaminophen. (Same as: [place] 325/10) Start Date: 03/10/17 Stop Date: 03/20/17 Status: Discontinued [place] 5/325 oral tablet 1 tab, Route: PO, Drug Form: TAB, Dosing Weight 35.5, kg, Q6H, PRN Pain Score 1- 5, Start date: 03/10/17 11:55:00 CDT, Duration: 30 day, Stop date: 04/09/17 11:5 4:00 CDT Notes: (Same as: [place] 325/5) Do not exceed 4gm/day of acetaminophen. Start Date: 03/10/17 Stop Date: 03/20/17 Status: Discontinued NS (Bolus) IV 2,000 mL, 2,000 ml/hr, Infuse Over: 1 hr, Route: IV, 2,000, Drug form: INJ, ONCE , Priority: STAT, Dosing Weight 36.364 kg, Start date: 03/09/17 20:22:00 CDT, Du ration: 1 doses or times, Stop date: 03/09/17 20:22:00 CDT Start Date: 03/09/17 Stop Date: 03/09/17 Status: Completed nystatin topical 100,000 units/g powder 1 appl, Route: TOP, PRN, Drug form: PWDR, PRN For Fungal Prophylaxis, Start date : 03/10/17 0:59:00 CDT, Duration: 30 day, Stop date: 04/09/17 0:58:00 CDT Notes: (Same as:Mycostatin, Nilstat) For external use only. Start Date: 03/10/17 Stop Date: 03/20/17 Status: Discontinued potassium chloride 20 mEq, Route: NJ, Drug form: LIQ, PRN, Dosing Weight 36.364, kg, PRN Abnormal L ab Result, Start date: 03/10/17 0:59:00 CDT, Duration: 30 day, Stop date: 0:58:00 CDT, FOR ICU USE ONLY Start Date: 03/10/17 Stop Date: 03/10/17 Status: Discontinued potassium chloride 20 mEq, Route: PO, Drug form: ERTAB, PRN, Dosing Weight 36.364, kg, PRN Abnormal Lab Result, Start date: 03/10/17 0:59:00 CDT, Duration: 30 day, Stop date: 03/29 09/14 0:58:00 CDT, FOR ICU USE ONLY Start Date: 03/10/17 Stop Date: 03/10/17 Status: Discontinued potassium chloride 10 mEq, Route: IVPB, PRN, Dosing Weight 36.364, kg, PRN Abnormal Lab Result, Via peripheral line, Start date: 03/10/17 0:59:00 CDT, Duration: 30 day, Stop date: 04/09/17 0:58:00 CDT, FOR ICU USE ONLY Start Date: 03/10/17 Stop Date: 03/10/17 Status: Discontinued potassium chloride 20 mEq, Route: IVPB, PRN, Dosing Weight 36.364, kg, PRN Abnormal Lab Result, Via central line, Start date: 03/10/17 0:59:00 CDT, Duration: 30 day, Stop date: 0:58:00 CDT, FOR ICU USE ONLY Start Date: 03/10/17 Stop Date: 03/10/17 Status: Discontinued potassium chloride 20 mEq, 100 mL, Route: IVPB, Drug form: INJ, PRN, Dosing Weight 35.5, kg, PRN Ab normal Lab Result, Via central line, Start date: 03/10/17 9:51:00 CDT, Duration: 30 day, Stop date: 04/09/17 9:50:00 CDT Notes: (Same as: KCL) Infuse no faster than 10 mEq/hr if given peripherally. Start Date: 03/10/17 Stop Date: 03/10/17 Status: Discontinued potassium chloride 10 mEq, 100 mL, Route: IVPB, Drug form: INJ, PRN, Dosing Weight 35.5, kg, PRN Ab normal Lab Result, Via peripheral line, Start date: 03/10/17 9:51:00 CDT, Durati on: 30 day, Stop date: 04/09/17 9:50:00 CDT Notes: Infuse at a rate of 10 mEq/hr.(Same as: KCL) Start Date: 03/10/17 Stop Date: 03/10/17 Status: Discontinued potassium chloride 10 mEq, 100 mL, Route: IVPB, Drug form: INJ, Q1H, Dosing Weight 35.5, kg, Total Dose=40 meq, Start date: 03/16/17 11:00:00 CDT, Duration: 4 doses or times, Stop date: 03/16/17 14:00:00 CDT, Peripheral Line Notes: Infuse at a rate of 10 mEq/hr.(Same as: KCL) Start Date: 03/16/17 Stop Date: 03/16/17 Status: Completed potassium chloride 10 mEq, Route: IVPB, PRN, Dosing Weight 36.364, kg, PRN Abnormal Lab Result, Via peripheral line, Start date: 03/10/17 0:53:00 CDT, Duration: 30 day, Stop date: 04/09/17 0:52:00 CDT Start Date: 03/10/17 Stop Date: 03/10/17 Status: Deleted potassium chloride 20 mEq, Route: IVPB, PRN, Dosing Weight 36.364, kg, PRN Abnormal Lab Result, Via central line, Start date: 03/10/17 0:53:00 CDT, Duration: 30 day, Stop date: 0:52:00 CDT Start Date: 03/10/17 Stop Date: 03/10/17 Status: Deleted potassium chloride 10 mEq, 100 mL, Route: IVPB, Drug form: INJ, PRN, Dosing Weight 36.364, kg, PRN Abnormal Lab Result, Via peripheral line, Start date: 03/10/17 0:52:00 CDT, Dura tion: 30 day, Stop date: 04/09/17 0:51:00 CDT Notes: Infuse at a rate of 10 mEq/hr.(Same as: KCL) Start Date: 03/10/17 Stop Date: 03/10/17 Status: Discontinued potassium chloride 20 mEq, 100 mL, Route: IVPB, Drug form: INJ, PRN, Dosing Weight 36.364, kg, PRN Abnormal Lab Result, Via central line, Start date: 03/10/17 0:52:00 CDT, Duratio n: 30 day, Stop date: 04/09/17 0:51:00 CDT Notes: (Same as: KCL) Infuse no faster than 10 mEq/hr if given peripherally. Start Date: 03/10/17 Stop Date: 03/10/17 Status: Discontinued potassium chloride 20 mEq, 15 mL, Route: NJ, Drug form: LIQ, PRN, Dosing Weight 35.5, kg, PRN Abnor mal Lab Result, Start date: 03/11/17 8:36:00 CDT, Duration: 30 day, Stop date: 0 04/10/17 8:35:00 CDT, FOR ICU USE ONLY Start Date: 03/11/17 Stop Date: 03/12/17 Status: Discontinued potassium chloride 20 mEq, 1 tab, Route: PO, Drug form: ERTAB, PRN, Dosing Weight 35.5, kg, PRN Abn ormal Lab Result, Start date: 03/11/17 8:36:00 CDT, Duration: 30 day, Stop date: 04/10/17 8:35:00 CDT, FOR ICU USE ONLY Notes: (Same as: K-Dur 20)"Do Not Crush" With food and full glass of water Start Date: 03/11/17 Stop Date: 03/12/17 Status: Discontinued potassium chloride 10 mEq, 100 mL, Route: IVPB, Drug form: INJ, PRN, Dosing Weight 35.5, kg, PRN Ab normal Lab Result, Via peripheral line, Start date: 03/11/17 8:36:00 CDT, Durati on: 30 day, Stop date: 04/10/17 8:35:00 CDT, FOR ICU USE ONLY Notes: Infuse at a rate of 10 mEq/hr.(Same as: KCL) Start Date: 03/11/17 Stop Date: 03/12/17 Status: Discontinued potassium chloride 20 mEq, 100 mL, Route: IVPB, Drug form: INJ, PRN, Dosing Weight 35.5, kg, PRN Ab normal Lab Result, Via central line, Start date: 03/11/17 8:36:00 CDT, Duration: 30 day, Stop date: 04/10/17 8:35:00 CDT, FOR ICU USE ONLY Notes: (Same as: KCL) Infuse no faster than 10 mEq/hr if given peripherally. Start Date: 03/11/17 Stop Date: 03/12/17 Status: Discontinued potassium chloride 20 mEq oral tablet, extended release 40 mEq, 2 tab, Route: PO, Drug form: ERTAB, ONCE, Dosing Weight 35.5, kg, Start date: 03/16/17 10:11:00 CDT, Stop date: 03/16/17 10:11:00 CDT Notes: (Same as: K-Dur 20)"Do Not Crush" With food and full glass of water Start Date: 03/16/17 Stop Date: 03/16/17 Status: Completed potassium phosphate 45 mmol, Route: IVPB, PRN, Dosing Weight 36.364, kg, PRN Abnormal Lab Result, St art date: 03/10/17 0:59:00 CDT, Duration: 30 day, Stop date: 04/09/17 0:58:00 CD T, FOR ICU USE ONLY Start Date: 03/10/17 Stop Date: 03/10/17 Status: Discontinued potassium phosphate 30 mmol, Route: IVPB, PRN, Dosing Weight 36.364, kg, PRN Abnormal Lab Result, St art date: 03/10/17 0:59:00 CDT, Duration: 30 day, Stop date: 04/09/17 0:58:00 CD T, FOR ICU USE ONLY Start Date: 03/10/17 Stop Date: 03/10/17 Status: Discontinued potassium phosphate 15 mmol, Route: IVPB, PRN, Dosing Weight 36.364, kg, PRN Abnormal Lab Result, St art date: 03/10/17 0:59:00 CDT, Duration: 30 day, Stop date: 04/09/17 0:58:00 CD T, FOR ICU USE ONLY Start Date: 03/10/17 Stop Date: 03/10/17 Status: Discontinued potassium phosphate 30 mmol, Route: IVPB, PRN, Dosing Weight 36.364, kg, PRN Abnormal Lab Result, St art date: 03/10/17 0:53:00 CDT, Duration: 30 day, Stop date: 04/09/17 0:52:00 CD T Start Date: 03/10/17 Stop Date: 03/10/17 Status: Deleted potassium phosphate 15 mmol, Route: IVPB, PRN, Dosing Weight 36.364, kg, PRN Abnormal Lab Result, St art date: 03/10/17 0:53:00 CDT, Duration: 30 day, Stop date: 04/09/17 0:52:00 CD T Start Date: 03/10/17 Stop Date: 03/10/17 Status: Deleted potassium phosphate + sodium chloride 0.9% INJ 250 mL 30 mmol, 10 mL, Route: IVPB, PRN, Dosing Weight 35.5, kg, PRN Abnormal Lab Resul t, Start date: 03/10/17 9:51:00 CDT, Duration: 30 day, Stop date: 04/09/17 9:50: 00 CDT Notes: (Same as: K Phosphate.) 1 mMol phoshate has 1.47 mEq potassium Infuse o chriss 4 hours Start Date: 03/10/17 Stop Date: 03/10/17 Status: Discontinued potassium phosphate + sodium chloride 0.9% INJ 250 mL 15 mmol, 5 mL, Route: IVPB, PRN, Dosing Weight 35.5, kg, PRN Abnormal Lab Result , Start date: 03/10/17 9:51:00 CDT, Duration: 30 day, Stop date: 04/09/17 9:50:0 0 CDT Notes: (Same as: K Phosphate.) 1 mMol phoshate has 1.47 mEq potassium Infuse o chriss 4 hours Start Date: 03/10/17 Stop Date: 03/10/17 Status: Discontinued potassium phosphate + sodium chloride 0.9% INJ 250 mL 30 mmol, 10 mL, Route: IVPB, PRN, Dosing Weight 36.364, kg, PRN Abnormal Lab Res ult, Start date: 03/10/17 0:52:00 CDT, Duration: 30 day, Stop date: 04/09/17 0:5 1:00 CDT Notes: (Same as: K Phosphate.) 1 mMol phoshate has 1.47 mEq potassium Infuse o chriss 4 hours Start Date: 03/10/17 Stop Date: 03/10/17 Status: Discontinued potassium phosphate + sodium chloride 0.9% INJ 250 mL 15 mmol, 5 mL, Route: IVPB, PRN, Dosing Weight 36.364, kg, PRN Abnormal Lab Resu lt, Start date: 03/10/17 0:52:00 CDT, Duration: 30 day, Stop date: 04/09/17 0:51 :00 CDT Notes: (Same as: K Phosphate.) 1 mMol phoshate has 1.47 mEq potassium Infuse o chriss 4 hours Start Date: 03/10/17 Stop Date: 03/10/17 Status: Discontinued potassium phosphate + sodium chloride 0.9% INJ 250 mL 45 mmol, 15 mL, Route: IVPB, PRN, Dosing Weight 35.5, kg, PRN Abnormal Lab Resul t, Start date: 03/11/17 8:36:00 CDT, Duration: 30 day, Stop date: 04/10/17 8:35: 00 CDT, FOR ICU USE ONLY Notes: (Same as: K Phosphate.) 1 mMol phoshate has 1.47 mEq potassium Infuse o chriss 4 hours Start Date: 03/11/17 Stop Date: 03/12/17 Status: Discontinued potassium phosphate + sodium chloride 0.9% INJ 250 mL 30 mmol, 10 mL, Route: IVPB, PRN, Dosing Weight 35.5, kg, PRN Abnormal Lab Resul t, Start date: 03/11/17 8:36:00 CDT, Duration: 30 day, Stop date: 04/10/17 8:35: 00 CDT, FOR ICU USE ONLY Notes: (Same as: K Phosphate.) 1 mMol phoshate has 1.47 mEq potassium Infuse o chriss 4 hours Start Date: 03/11/17 Stop Date: 03/12/17 Status: Discontinued potassium phosphate + sodium chloride 0.9% INJ 250 mL 15 mmol, 5 mL, Route: IVPB, PRN, Dosing Weight 35.5, kg, PRN Abnormal Lab Result , Start date: 03/11/17 8:36:00 CDT, Duration: 30 day, Stop date: 04/10/17 8:35:0 0 CDT, FOR ICU USE ONLY Notes: (Same as: K Phosphate.) 1 mMol phoshate has 1.47 mEq potassium Infuse o chriss 4 hours Start Date: 03/11/17 Stop Date: 03/12/17 Status: Discontinued potassium phosphate-sodium phosphate 250 mg-280 mg-160 mg oral powder for recons titution 2 pkt, Route: PO, Dosing Weight 36.364, kg, PRN, PRN Abnormal Lab Result, FOR IC U USE ONLY, Start date: 03/10/17 0:59:00 CDT, Duration: 30 day, Stop date: 04/09 0:58:00 CDT Start Date: 03/10/17 Stop Date: 03/10/17 Status: Discontinued potassium phosphate-sodium phosphate 250 mg-280 mg-160 mg oral powder for recons titution 2 pkt, Route: PO, Drug Form: PDR/REC, Dosing Weight 35.5, kg, PRN, PRN Abnormal Lab Result, FOR ICU USE ONLY, Start date: 03/11/17 8:36:00 CDT, Duration: 30 day , Stop date: 04/10/17 8:35:00 CDT Notes: (Same as: Phos-NaK) Each 1.5 gm pkt has 250mg phosphorous. Mix w/2.5oz w ater and stir. Start Date: 03/11/17 Stop Date: 03/12/17 Status: Discontinued propranolol 20 mg, 1 tab, Route: PO, Drug form: TAB, TID, Dosing Weight 35.5, kg, Start date : 03/10/17 9:00:00 CDT, Duration: 30 day, Stop date: 04/08/17 17:00:00 CDT Notes: Give with food.(Same as: Inderal) Start Date: 03/10/17 Stop Date: 03/15/17 Status: Discontinued Saline Flush 0.9% 10 mL, Route: IVP, Drug Form: INJ, Dosing Weight 44.9, kg, PRN, PRN Line Flush, Start date: 03/09/17 20:01:00 CDT, Duration: 30 day, Stop date: 04/08/17 20:00:0 0 CDT Notes: Same as: BD Posiflush Sterile Start Date: 03/09/17 Stop Date: 03/20/17 Status: Discontinued Saline Flush 0.9% 10 ml, Route: IVP, Drug Form: INJ, Dosing Weight 36.364, kg, Q12H, Start date: 0 03/10/17 9:00:00 CDT, Duration: 30 day, Stop date: 04/08/17 21:00:00 CDT Notes: (Same as: BD Posiflush) Start Date: 03/10/17 Stop Date: 03/20/17 Status: Discontinued Saline Flush 0.9% 10 ml, Route: IVP, Drug Form: INJ, Dosing Weight 36.364, kg, PRN, PRN Line Flush , Start date: 03/10/17 0:59:00 CDT, Duration: 30 day, Stop date: 04/09/17 0:58:0 0 CDT Notes: (Same as: BD Posiflush) Start Date: 03/10/17 Stop Date: 03/10/17 Status: Discontinued sodium chloride 0.45% 1000 ml INJ 1,000 mL 1,000 mL, Rate: 250 ml/hr, Infuse over: 4 hr, Route: IV, Dosing Weight 35.5 kg, Total Volume: 1,000, Start date: 03/10/17 2:29:00 CDT, Duration: 30 day, Stop da te: 04/09/17 2:28:00 CDT Start Date: 03/10/17 Stop Date: 03/10/17 Status: Discontinued sodium chloride 0.9% 1000 ml INJ 1,000 mL 1,000 mL, Rate: 125 ml/hr, Infuse over: 8 hr, Route: IV, Dosing Weight 35.5 kg, Total Volume: 1,000, Start date: 03/15/17 10:45:00 CDT, Duration: 30 day, Stop d ate: 04/14/17 10:44:00 CDT Start Date: 03/15/17 Stop Date: 03/20/17 Status: Discontinued sodium phosphate 15 mmol, Route: IVPB, PRN, Dosing Weight 36.364, kg, PRN Abnormal Lab Result, St art date: 03/10/17 0:59:00 CDT, Duration: 30 day, Stop date: 04/09/17 0:58:00 CD T, FOR ICU USE ONLY Start Date: 03/10/17 Stop Date: 03/10/17 Status: Discontinued sodium phosphate 45 mmol, Route: IVPB, PRN, Dosing Weight 36.364, kg, PRN Abnormal Lab Result, St art date: 03/10/17 0:59:00 CDT, Duration: 30 day, Stop date: 04/09/17 0:58:00 CD T, FOR ICU USE ONLY Start Date: 03/10/17 Stop Date: 03/10/17 Status: Discontinued sodium phosphate 30 mmol, Route: IVPB, PRN, Dosing Weight 36.364, kg, PRN Abnormal Lab Result, St art date: 03/10/17 0:59:00 CDT, Duration: 30 day, Stop date: 04/09/17 0:58:00 CD T, FOR ICU USE ONLY Start Date: 03/10/17 Stop Date: 03/10/17 Status: Discontinued sodium phosphate + D5W 250 mL 45 mmol, 15 mL, Route: IVPB, PRN, Dosing Weight 35.5, kg, PRN Abnormal Lab Resul t, Start date: 03/11/17 8:36:00 CDT, Duration: 30 day, Stop date: 04/10/17 8:35: 00 CDT, FOR ICU USE ONLY Start Date: 03/11/17 Stop Date: 03/12/17 Status: Discontinued sodium phosphate + D5W 250 mL 30 mmol, 10 mL, Route: IVPB, PRN, Dosing Weight 35.5, kg, PRN Abnormal Lab Resul t, Start date: 03/11/17 8:36:00 CDT, Duration: 30 day, Stop date: 04/10/17 8:35: 00 CDT, FOR ICU USE ONLY Start Date: 03/11/17 Stop Date: 03/12/17 Status: Discontinued sodium phosphate + D5W 250 mL 15 mmol, 5 mL, Route: IVPB, PRN, Dosing Weight 35.5, kg, PRN Abnormal Lab Result , Start date: 03/11/17 8:36:00 CDT, Duration: 30 day, Stop date: 04/10/17 8:35:0 0 CDT, FOR ICU USE ONLY Start Date: 03/11/17 Stop Date: 03/12/17 Status: Discontinued Zofran 4 mg, 2 mL, Route: IVP, Drug form: INJ, ONCE, Dosing Weight 36.364, kg, Priority : STAT, Start date: 03/09/17 20:23:00 CDT, Stop date: 03/09/17 20:23:00 CDT Notes: (Same as: Zofran) MEDICATION WASTE Product Size: 4 mgProduct Was nakul: ___ mg Start Date: 03/09/17 Stop Date: 03/10/17 Status: Completed Results ELECTROLYTES 1 2 3 Most recent to oldest [Reference Range]: 140 mEq/L (03/18/17 6:57 AM) 138 mEq/L (03/17/17 6:02 AM) 141 mEq/L (03/16/17 8:52 AM) Sodium Lvl [135-145 mEq/L] 3.6 mEq/L (03/18/17 6:57 AM) 3.9 mEq/L (03/17/17 6:02 AM) 2.9 mEq/L 1 *CRIT* (03/16/17 8:52 AM) Potassium Lvl [3.5-5.1 mEq/L] 108 mEq/L (03/18/17 6:57 AM) 107 mEq/L (03/17/17 6:02 AM) 111 mEq/L *HI* (03/16/17 8:52 AM) Chloride Lvl [95-109 mEq/L] 24 mEq/L (03/18/17 6:57 AM) 23 mEq/L *LOW* (03/17/17 6:02 AM) 23 mEq/L *LOW* (03/16/17 8:52 AM) CO2 [24-32 mEq/L] 11.6 mEq/L (03/18/17 6:57 AM) 11.9 mEq/L (03/17/17 6:02 AM) 9.9 mEq/L *LOW* (03/16/17 8:52 AM) AGAP [10.0-20.0 mEq/L] 1Result Comment: Critical Result(s) called to Jm Curtis at 03/16/2017 09:43 byHA. Read back OK. CHEM PANEL 1 2 3 Most recent to oldest [Reference Range]: 0.20 mg/dL *LOW* (03/18/17 6:57 AM) 0.24 mg/dL *LOW* (03/17/17 6:02 AM) <0.15 mg/dL *LOW* (03/16/17 8:52 AM) Creatinine Lvl [0.50-1.40 mg/dL] 162 mL/min/1.73m2 1 *NA* (03/18/17 6:57 AM) 152 mL/min/1.73m2 2 *NA* (03/17/17 6:02 AM) 178 mL/min/1.73m2 3 *NA* (03/16/17 8:52 AM) eGFR 8 mg/dL (03/18/17 6:57 AM) 10 mg/dL (03/17/17 6:02 AM) 8 mg/dL (03/16/17 8:52 AM) BUN [7-22 mg/dL] 44 *HI* (03/09/17 8:16 PM) B/C Ratio [6-25] 68 mg/dL *LOW* (03/18/17 6:57 AM) 201 mg/dL *HI* (03/17/17 6:02 AM) 165 mg/dL *HI* (03/16/17 8:52 AM) Glucose Lvl [70-99 mg/dL] 9.6 g/dL *HI* (03/09/17 8:16 PM) Total Protein [6.4-8.4 g/dL] 3.7 g/dL (03/09/17 8:16 PM) Albumin Lvl [3.5-5.0 g/dL] 5.9 g/dL *HI* (03/09/17 8:16 PM) Globulin [2.7-4.2 g/dL] 0.6 *LOW* (03/09/17 8:16 PM) A/G Ratio [0.7-1.6] 8.7 mg/dL (03/18/17 6:57 AM) 8.6 mg/dL (03/17/17 6:02 AM) 6.8 mg/dL *CRIT* (03/16/17 8:52 AM) Calcium Lvl [8.5-10.5 mg/dL] 3.3 mg/dL (03/12/17 6:41 AM) 2.9 mg/dL (03/11/17 4:39 AM) 3.3 mg/dL (03/10/17 4:42 PM) Phosphorus [2.5-4.5 mg/dL] 1.8 mg/dL (03/12/17 6:41 AM) 2.2 mg/dL (03/11/17 4:39 AM) 1.3 mg/dL *LOW* (03/11/17 12:06 AM) Magnesium Lvl [1.8-2.4 mg/dL] 34 unit/L (03/09/17 8:16 PM) ALT [0-65 unit/L] 45 unit/L *HI* (03/09/17 8:16 PM) AST [0-37 unit/L] 184 unit/L *HI* (03/09/17 8:16 PM) Alk Phos [39-136 unit/L] 0.8 mg/dL (03/09/17 8:16 PM) Bili Total [0.2-1.3 mg/dL] 361 unit/L (03/14/17 12:20 PM) 320 unit/L (03/09/17 8:16 PM) Lipase Lvl [73-393 unit/L] 0.86 mmol/L *HI* (03/10/17 8:42 AM) 0.30 mmol/L *HI* (03/10/17 5:27 AM) 2.16 mmol/L *HI* (03/10/17 1:23 AM) Ketone Quantitative [<=0.27 mmol/L] 1.5 mMol/L (03/09/17 10:23 PM) Lactic Acid Lvl [0.5-2.2 mMol/L] 1Result Comment: The eGFR is calculated using the [...] from the National Kid[employer] Education Program ( NKDEP) which additionally recommends that when the eGFR is used in patients with extremes of body mass index for purposes of drug dosing, the eGFR should be mul tiplied by the estimated BMI. 2Result Comment: The eGFR is calculated using the [...] from the National Kid[employer] Education Program ( NKDEP) which additionally recommends that when the eGFR is used in patients with extremes of body mass index for purposes of drug dosing, the eGFR should be mul tiplied by the estimated BMI. 3Result Comment: The eGFR is calculated using the [...] from the National Kid[employer] Education Program ( NKDEP) which additionally recommends that when the eGFR is used in patients with extremes of body mass index for purposes of drug dosing, the eGFR should be mul tiplied by the estimated BMI. CARDIAC ENZYMES 1 2 3 Most recent to oldest [Reference Range]: 53 unit/L (03/09/17 8:16 PM) Total CK [12-191 unit/L] 3.1 ng/mL (03/09/17 8:16 PM) CK MB [0.5-3.6 ng/mL] 5.8 *HI* (03/09/17 8:16 PM) CK MB Index [0.0-2.5] <0.02 ng/mL (03/09/17 8:16 PM) Troponin-I [0.00-0.40 ng/mL] SPECIAL CHEMISTRY 1 2 3 Most recent to oldest [Reference Range]: 11.5 % *HI* (03/10/17 8:45 AM) 11.6 % *HI* (03/10/17 1:23 AM) Hgb A1C [<=5.6 %] PARATHYROID PROFILE 1 2 3 Most recent to oldest [Reference Range]: 1.14 mMol/L (03/16/17 12:23 PM) Ca Ion WB [1.05-1.25 mMol/L] 1.10 mMol/L (03/16/17 12:23 PM) Ca Norm WB [1.05-1.25 mMol/L] DRUG SCREEN 1 2 3 Most recent to oldest [Reference Range]: Negative *NA* (03/09/17 10:23 PM) U Amph Scr [Negative] Negative *NA* (03/09/17 10:23 PM) U Kristen Scr [Negative] Negative *NA* (03/09/17 10:23 PM) U Benzodia Scr [Negative] Negative *NA* (03/09/17 10:23 PM) U Cocaine Scr [Negative] Positive *ABN* (03/09/17 10:23 PM) U Opiate Scr [Negative] Negative *NA* (03/09/17 10:23 PM) U Phencyc Scr [Negative] Negative *NA* (03/09/17 10:23 PM) U Cannab Scr [Negative] See Note (03/09/17 10:23 PM) UDS Note ENDOCRINOLOGY 1 2 3 Most recent to oldest [Reference Range]: Negative *NA* (03/09/17 10:23 PM) S Preg [Negative] URINE AND STOOL 1 2 3 Most recent to oldest [Reference Range]: Marked *ABN* (03/09/17 10:23 PM) UA Turbidity [Clear] Yellow *NA* (03/09/17 10:23 PM) UA Color [Yellow] 6.0 (03/09/17 10:23 PM) UA pH [5.0-8.0] 1.008 (03/09/17 10:23 PM) UA Spec Grav [<=1.030] 150 mg/dL *ABN* (03/09/17 10:23 PM) UA Glucose [Negative mg/dL] Moderate *ABN* (03/09/17 10:23 PM) UA Blood [Negative] 80 mg/dL *ABN* (03/09/17 10:23 PM) UA Ketones [Negative mg/dL] 100 mg/dL *ABN* (03/09/17 10:23 PM) UA Protein [Negative mg/dL] <=1.0 mg/dL *NA* (03/09/17 10:23 PM) UA Urobilinogen [0.1-1.0 mg/dL] Negative *NA* (03/09/17 10:23 PM) UA Bili [Negative] Large *ABN* (03/09/17 10:23 PM) UA Leuk Est [Negative] Negative (03/09/17 10:23 PM) UA Nitrite [Negative] >182 /HPF *HI* (03/09/17 10:23 PM) UA WBC [0-5 /HPF] Occasional /HPF *NA* (03/09/17 10:23 PM) UA Bacteria [None Seen /HPF] Many /LPF *ABN* (03/09/17 10:23 PM) UA Sq Epi [Few /LPF] 3 /LPF *HI* (03/09/17 10:23 PM) UA Hyal Cast [0-2 /LPF] Few /LPF *NA* (03/09/17 10:23 PM) UA Mucus [None Seen /LPF] Many /HPF *ABN* (03/09/17 10:23 PM) UA [place] Yeast [None Seen /HPF] HEMATOLOGY 1 2 3 Most recent to oldest [Reference Range]: 5.6 K/CMM (03/18/17 6:57 AM) 4.9 K/CMM (03/17/17 6:02 AM) 4.7 K/CMM (03/16/17 12:23 PM) WBC [3.7-10.4 K/CMM] 4.06 M/CMM *LOW* (03/18/17 6:57 AM) 4.01 M/CMM *LOW* (03/17/17 6:02 AM) 4.21 M/CMM (03/16/17 12:23 PM) RBC [4.20-5.40 M/CMM] 11.0 g/dL *LOW* (03/18/17 6:57 AM) 10.9 g/dL *LOW* (03/17/17 6:02 AM) 11.3 g/dL *LOW* (03/16/17 12:23 PM) Hgb [12.0-16.0 g/dL] 32.7 % *LOW* (03/18/17 6:57 AM) 32.8 % *LOW* (03/17/17 6:02 AM) 34.3 % *LOW* (03/16/17 12:23 PM) Hct [36.0-48.0 %] 80.5 fL (03/18/17 6:57 AM) 81.7 fL (03/17/17 6:02 AM) 81.4 fL (03/16/17 12:23 PM) MCV [80.0-98.0 fL] 27.1 pg (03/18/17 6:57 AM) 27.1 pg (03/17/17 6:02 AM) 26.9 pg *LOW* (03/16/17 12:23 PM) MCH [27.0-31.0 pg] 33.7 g/dL (8/21/17 6:57 AM) 33.2 g/dL (03/17/17 6:02 AM) 33.0 g/dL (03/16/17 12:23 PM) MCHC [32.0-36.0 g/dL] 18.2 % *HI* (03/18/17 6:57 AM) 18.1 % *HI* (03/17/17 6:02 AM) 17.8 % *HI* (03/16/17 12:23 PM) RDW [11.5-14.5 %] 223 K/CMM (03/18/17 6:57 AM) 208 K/CMM (03/17/17 6:02 AM) 211 K/CMM (03/16/17 12:23 PM) Platelet [133-450 K/CMM] 10.3 fL (03/18/17 6:57 AM) 9.9 fL (03/17/17 6:02 AM) 10.1 fL (03/16/17 12:23 PM) MPV [7.4-10.4 fL] 43.2 % *LOW* (03/18/17 6:57 AM) 34.7 % *LOW* (03/17/17 6:02 AM) 44.8 % *LOW* (03/16/17 12:23 PM) Segs [45.0-75.0 %] 40.8 % *HI* (03/18/17 6:57 AM) 49.7 % *HI* (03/17/17 6:02 AM) 43.2 % *HI* (03/16/17 12:23 PM) Lymphocytes [20.0-40.0 %] 10.3 % (03/18/17 6:57 AM) 8.9 % (03/17/17 6:02 AM) 6.9 % (03/16/17 12:23 PM) Monocytes [2.0-12.0 %] 5.4 % *HI* (03/18/17 6:57 AM) 6.3 % *HI* (03/17/17 6:02 AM) 4.5 % *HI* (03/16/17 12:23 PM) Eosinophils [0.0-4.0 %] 0.3 % (03/18/17 6:57 AM) 0.4 % (03/17/17 6:02 AM) 0.6 % (03/16/17 12:23 PM) Basophils [0.0-1.0 %] 2.4 K/CMM (03/18/17 6:57 AM) 1.7 K/CMM (03/17/17 6:02 AM) 2.1 K/CMM (03/16/17 12:23 PM) Segs-Bands # [1.5-8.1 K/CMM] 2.3 K/CMM (03/18/17 6:57 AM) 2.4 K/CMM (03/17/17 6:02 AM) 2.0 K/CMM (03/16/17 12:23 PM) Lymphocytes # [1.0-5.5 K/CMM] 0.6 K/CMM (03/18/17 6:57 AM) 0.4 K/CMM (03/17/17 6:02 AM) 0.3 K/CMM (03/16/17 12:23 PM) Monocytes # [0.0-0.8 K/CMM] 0.3 K/CMM (03/18/17 6:57 AM) 0.3 K/CMM (03/17/17 6:02 AM) 0.2 K/CMM (03/16/17 12:23 PM) Eosinophils # [0.0-0.5 K/CMM] BACTERIAL - SEROLOGY 1 2 3 Most recent to oldest [Reference Range]: Negative (03/10/17 1:00 AM) MRSA by PCR Immunizations Not Given Vaccine Date Status Refusal Reason influenza virus vaccine, inactivated 07/30/16 Not Given Patient Refuses pneumococcal 23-valent vaccine 07/30/16 Not Given Patient Refuses pneumococcal 23-valent vaccine 06/20/16 Not Given Patient Refuses Procedures Procedure Date Related Diagnosis Body Site Cholecystectomy 07/29/16 Tubal ligation Social History Social History Type Response Substance Abuse Use: None. Sexual Sexually active: Yes. Alcohol Never Smoking Status Former smoker; Type: Cigarettes; Ready to change: No; Concerns about tobacco use in household: No; Exposure to Tobacco Smoke None; Other Tobacco Frequency 07/05/2014 Quit; Cigarette Smoking Last 365 Days No; Reg Smoking Cessation Counseling No Assessment and Plan Extracted from: Title: Clinical Document Author: Darien Queen MD Date: [...] Please see discharge medicine reconciliation form Extracted from: Title: Clinical Document Author: Nya Mancilla Date: 03/20/17 Progress Note - Daily [facility] Completed: Saturday, MAR 20, 2017, 12:38 by Nya Mancilla MD RM: [id number] - 1P, SE [id number] (: 1975) F Attending: Darien Queen MDPhone: Service: Internal Medicine Reason for Admission: ABDOMINAL PAIN, SINUS TACHYCARDIA Working DRG: Septicemia or severe sepsis w/o MV 96+ hours w [facility] [place] Code status: None Specified=FULL CODECurrent diet: Isolation: None Documented Allergies: Ancef, Keflex(Rash, NOS), ciprofloxacin SUBJECTIVE Pt feelingrelatively well Desires to go home. No SOB/CP/N/V Pain relatively well controlled. OBJECTIVE General- NAD, A&Ox3 Extremities- no CCE Skin- No rashes or lesions appreciated 24hr Labs 03/20 1150 Glucose [id number] H 03/20 0741 Glucose VYC494 H 03/19 2102 Glucose YJS809 H 03/19 1627 Glucose UTO412 H 03/19 1136 Glucose LHQ874 H Schulz still necessary (Yes/No): Line still necessary (Yes/No): VitalsTmp(F)[id number] 03/20 11:4198.474049/7816------ 03/20 07:4898.234212/6916------ 03/20 03:4798.602494/6516------ 03/19 23:0598.9490986/7818------ 03/19 19:4198.986089/6016------ 24 Hr Tmax: 98.2F (36.78c) at 03/19 23:05Vital Signs are the last 5 in the past 48 hours. DateWt(kg)Wt(lb)Ht(cm)Ht(in)Method 03/20 37.76 83.06Measured 03/19 38.19 84.01Measured 03/18 37.45 82.40Measured 03/17 37.33 82.13Measured 03/16 36.59 80.50Measured 03/09 (initial) 36.36 80.00Estimated 54.94 61.00Stated I&ORecordInOutBal 02/2324hr Tot 750 0 750 02/2224hr Tot 750 0 750 Medications (23) Active Scheduled Meds (7): 03/10/17 enoxaparin 40 mg SUB-Q [id number] 03/11/17 insulin aspart 3 unit SUB-Q TID-Before [...] Syringe) 25 gm IVP PRN 03/10/17 acetaminophen-hydrocodone ([place] 5/325 oral tablet) 1 tab PO Q6H 03/10/17 acetaminophen-hydrocodone ([place] 10/325 oral tablet) 1 tab PO Q6H [...] 1,000 mL 1,000 mL 125 ml/hr ASSESSMENT & EXAM Discussed with patient surgery at this [...] weeks. Nya Mancilla MD Gynecologic Oncology Staff [phone] Extracted from: Title: Progress Note * Author: Alyssa Castellanos MD [...] Alyssa Castellanos MD Internal Medicine Hospitalist Extracted from: Title: Clinical Document Author: Alexandru Frankel MD Date: [...] to 05/23 when she was admitted to [facility] with failure to thrive symptoms and [...] previously placed Axios stent. In 10/2016, at [facility], the pancreatic duct stent was removed [...] 6-10. enoxaparin: 40 mg, 0.4 mL, SUB-Q, [id number]. esmolol-NS 2,500 mg: Titrate, IV, Stop: 04/08/17 [...] non-focal exam. MS: Normal Recent Labs/Radiology reviewed VitalsTmp(F)[id number] 03/10 13:00----[id number]--- 03/10 12:30----[id number]--- 03/10 12:00----[id number]--- 03/10 11:30----[id number]--- 03/10 11:00----[id number]--- 24 Hr Tmax: 98.5F (36.94c) at 03/10 04:00Vital Signs are the last 5 in the past 48 hours. DateWt(kg)Wt(lb)Ht(cm)Ht(in)Method 03/10 35.50 78.13207.94 61.00Measured 03/09 (initial) 36.36 80.00Estimated 54.94 61.00Stated Labs (Last four charted values) WBC 5.7(MAR 10)6.2(MAR 10)6.9(MAR 09) Hgb L 11.2(MAR 10)L 11.1(MAR 10)15.3(MAR 09) Hct L 34.4(MAR 10)L 33.1(MAR 10)46.6(MAR 09) Plt 187(MAR 10)174(MAR 10)230(MAR 09) Na L 132(MAR 10)135(MAR 10)L 132(MAR 10)L 127(MAR 09) K 4.7(MAR 10)L 3.3(MAR 10)C 3.0(MAR 10)H 5.3(MAR 09) CO2 L 23(MAR 10)24(MAR 10)L 22(MAR 10)L 19(MAR 09) Cl 102(MAR 10)102(MAR 10)97(MAR 10)L 90(MAR 09) Cr L 0.32(MAR 10)L 0.40(MAR 10)L 0.30(MAR 10)L 0.41(MAR 09) BUN 11(MAR 10)9(MAR 10)11(MAR 10)18(MAR 09) Glucose Random H 279(MAR 10)73(MAR 10)H 319(MAR 10)H 234(MAR 09) Mg L 1.2(MAR 10)L 1.3(MAR 10)L 1.2(MAR 10)L 1.4(MAR 09) Phos 2.7(MAR 10)2.9(MAR 10) Ca L 8.4(MAR 10)8.7(MAR 10)L 8.3(MAR 10)9.7(MAR 09) Troponin <0.02(MAR 09) CK MB 3.1(MAR 09) Total CK 53(MAR 09)
--- OUTSIDE RECORDS SUMMARY | 2019-02-11 16:44 | XMS REPORT | Summary of Care ---
Author Author [facility] Organization [facility] Address Unknown Phone Unavailable Encounter CRISTIANE Lindo(JOSEPH) [id number] Date(s): 12/27/16 - 12/29/16 [facility] [address] [place] [address]- Discharge Disposition: Home or Self Care Attending Physician: Walter Fernandez MD Admitting Physician: Walter Fernandez MD Referring Physician: Etienne Monteiro MD Vital Signs 1 2 3 Most recent to oldest [Reference Range]: 154.94 cm (12/27/16 3:30 AM) 154.94 cm (12/27/16 2:51 AM) Height 44.9 kg (12/27/16 3:30 AM) Current Weight 98.3 DegF (12/29/16 4:00 AM) 98 DegF (12/29/16 12:00 AM) 98.2 DegF (12/28/16 4:00 PM) Temperature Oral [96.4-99.1 DegF] 102/63 mmHg (12/29/16 12:04 PM) 110/58 mmHg (12/29/16 11:00 AM) 110/62 mmHg (12/29/16 9:48 AM) Blood Pressure [90-140/60-90 mmHg] 20 BRMIN (12/29/16 1:00 PM) 17 BRMIN (12/29/16 12:05 PM) 19 BRMIN (12/29/16 12:04 PM) Respiratory Rate [14-20 BRMIN] 44.9 kg (12/27/16 2:51 AM) 44.9 kg (12/27/16 2:51 AM) 44.9 kg (12/27/16 2:47 AM) Weight 18.7 m2 (12/27/16 2:51 AM) Body Mass Index Problem List Condition Effective Dates Status Health Status Informant Diabetes(Confirmed) Resolved Gallbladder Resolved disease(Confirmed) Goiter(Confirmed) Resolved Heartburn(Confirmed) Resolved Hypomagnesemia(Confi Active rmed) Hypophosphatemia(Con < 08/31/16 Resolved firmed) MRSA(Confirmed)1, 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 Allergies, Adverse Reactions, Alerts Substance Reaction Severity Status Ancef Severe Active ciprofloxacin Active Keflex1 Rash, NOS Active 1tolerated [place] [facility] [place] as per MD and as documented in e-MAR Medications Amaryl 4 mg oral tablet 4 mg=1 tab, PO, Breakfast, # 30 tab, 0 Refill(s), Pharmacy: [id number] Start Date: 12/29/16 Status: Ordered Augmentin 500 mg oral tablet 1 tab, PO, Q8H, # 21 tab, 0 Refill(s), Pharmacy: [id number] Start Date: 12/29/16 Stop Date: 12/30/16 Status: Completed calcium carbonate 500 mg (200 mg elemental calcium) oral tablet 1,000 mg, 2 tab, Route: CHEW, Drug form: CHEWTAB, PRN, Dosing Weight 44.9, kg, P RN Abnormal Lab Result, FOR ICU USE ONLY, Start date: 12/27/16 8:05:00 CDT, Dura tion: 30 day, Stop date: 01/26/17 8:04:00 CDT Notes: (Same As: Tums)Calcium Carbonate 500 wp=000 mg elemental calcium Dose=_ mg calcium carbonate ( mg elemental calcium) Start Date: 12/27/16 Stop Date: 12/29/16 Status: Discontinued calcium carbonate 500 mg (200 mg elemental calcium) oral tablet 500 mg, 1 tab, Route: CHEW, Drug form: CHEWTAB, PRN, Dosing Weight 44.9, kg, PRN Abnormal Lab Result, FOR ICU USE ONLY, Start date: 12/27/16 8:05:00 CDT, Durati on: 30 day, Stop date: 01/26/17 8:04:00 CDT Notes: (Same As: Tums)Calcium Carbonate 500 fr=331 mg elemental calcium Dose=_ mg calcium carbonate ( mg elemental calcium) Start Date: 12/27/16 Stop Date: 12/29/16 Status: Discontinued calcium gluconate 1 gm, 50 mL, Route: IVPB, Drug form: INJ, PRN, Dosing Weight 44.9, kg, PRN Abnor mal Lab Result, Start date: 12/27/16 8:05:00 CDT, Duration: 30 day, Stop date: 0 01/26/17 8:04:00 CDT, FOR ICU USE ONLY Notes: WASTE: F/P - Sink; E - Municipal Trash Bin Start Date: 12/27/16 Stop Date: 12/29/16 Status: Discontinued Creon 24,000 units oral delayed release capsule 1 cap, Route: PO, Drug Form: DRC, Dosing Weight 44.9, kg, TID-Before Meals, Star t date: 12/27/16 7:30:00 CDT, Duration: 30 day, Stop date: 01/25/17 16:30:00 CDT Notes: Same as: Creon DRC 24 : lipase 24,000 units, protease 76,000 units, amyla se 120,000 units Start Date: 12/27/16 Stop Date: 12/29/16 Status: Discontinued Dextrose 50% Syringe 25 gm, 50 mL, Route: IVP, Drug Form: INJ, Dosing Weight 44.9, kg, PRN, PRN Blood Glucose Results, Start date: 12/27/16 3:37:00 CDT, Duration: 30 day, Stop date: 01/26/17 3:36:00 CDT Start Date: 12/27/16 Stop Date: 12/29/16 Status: Discontinued Dextrose 50% Syringe 12.5 gm, 25 mL, Route: IVP, Drug Form: INJ, Dosing Weight 44.9, kg, PRN, PRN Blo od Glucose Results, Start date: 12/27/16 3:37:00 CDT, Duration: 30 day, Stop chely e: 01/26/17 3:36:00 CDT Start Date: 12/27/16 Stop Date: 12/29/16 Status: Discontinued Diflucan 100 mg oral tablet 100 mg=1 tab, PO, Daily, X 10 day, # 10 tab, 0 Refill(s), [facility]: [id number] Start Date: 12/29/16 Stop Date: 01/08/17 Status: Ordered Dilaudid 0.5 mg, 0.5 mL, Route: IV, Drug form: INJ, Q4H, Dosing Weight 44.9, kg, PRN Pain Score 6-10, Start date: 12/27/16 2:58:00 CDT, Duration: 30 day, Stop date: 08/14 2:57:00 CDT Start Date: 12/27/16 Stop Date: 12/27/16 Status: Deleted fentaNYL (ANES) Route: IV, Drug form: INJ, ONCE, Stop date: 12/28/16 13:23:00 CDT Start Date: 12/28/16 Stop Date: 12/28/16 Status: Completed glucagon 1 mg, Route: IM, Drug form: PDR/INJ, PRN, Dosing Weight 44.9, kg, PRN Blood Gluc ose Results, Start date: 12/27/16 3:37:00 CDT, Duration: 30 day, Stop date: 08/14 3:36:00 CDT Start Date: 12/27/16 Stop Date: 12/29/16 Status: Discontinued hydromorphone 0.5 mg, 0.5 mL, Route: IVP, Drug form: INJ, Q4H, Dosing Weight 44.9, kg, PRN Clarissa n Score 7-10, Start date: 12/27/16 3:06:00 CDT, Duration: 30 day, Stop date: 08/14 3:05:00 CDT Start Date: 12/27/16 Stop Date: 12/29/16 Status: Discontinued Inderal 20 mg, 2 tab, Route: PO, Drug form: TAB, QID, Dosing Weight 44.9, kg, Start date : 12/27/16 9:00:00 CDT, Duration: 30 day, Stop date: 01/25/17 21:00:00 CDT Notes: Give with food.(Same as: Inderal) Start Date: 12/27/16 Stop Date: 12/29/16 Status: Discontinued insulin aspart 3 unit, 0.03 mL, Route: SUB-Q, Drug form: SOLN, Sliding Scale, Dosing Weight 44. 9, kg, PRN Blood Glucose Results, Start date: 12/27/16 3:37:00 CDT, Duration: 30 day, Stop date: 01/26/17 3:36:00 CDT Notes: Roll in palms of hands gently; Do not shake vigorously. (Same as: Mica Soto)"single patient use only"WASTE: F/P - Black; E - Municipal Trash Bin Stable f or 28 days at room temperature.Expires in days from Date Start Date: 12/27/16 Stop Date: 12/29/16 Status: Discontinued insulin aspart 4 unit, 0.04 mL, Route: SUB-Q, Drug form: SOLN, Sliding Scale, Dosing Weight 44. 9, kg, PRN Blood Glucose Results, Start date: 12/27/16 3:37:00 CDT, Duration: 30 day, Stop date: 01/26/17 3:36:00 CDT Notes: Roll in palms of hands gently; Do not shake vigorously. (Same as: Mica Soto)"single patient use only"WASTE: F/P - Black; E - Municipal Trash Bin Stable f or 28 days at room temperature.Expires in days from Date Start Date: 12/27/16 Stop Date: 12/29/16 Status: Discontinued insulin aspart 2 unit, 0.02 mL, Route: SUB-Q, Drug form: SOLN, Sliding Scale, Dosing Weight 44. 9, kg, PRN Blood Glucose Results, Start date: 12/27/16 3:37:00 CDT, Duration: 30 day, Stop date: 01/26/17 3:36:00 CDT Notes: Roll in palms of hands gently; Do not shake vigorously. (Same as: Mica Soto)"single patient use only"WASTE: F/P - Black; E - Municipal Trash Bin Stable f or 28 days at room temperature.Expires in days from Date Start Date: 12/27/16 Stop Date: 12/29/16 Status: Discontinued insulin aspart 1 unit, 0.01 mL, Route: SUB-Q, Drug form: SOLN, Sliding Scale, Dosing Weight 44. 9, kg, PRN Blood Glucose Results, Start date: 12/27/16 3:37:00 CDT, Duration: 30 day, Stop date: 01/26/17 3:36:00 CDT Notes: Roll in palms of hands gently; Do not shake vigorously. (Same as: NovoLO G)"single patient use only"WASTE: F/P - Black; E - Municipal Trash Bin Stable f or 28 days at room temperature.Expires in days from Date Start Date: 12/27/16 Stop Date: 12/29/16 Status: Discontinued insulin aspart 5 unit, 0.05 mL, Route: SUB-Q, Drug form: SOLN, Sliding Scale, Dosing Weight 44. 9, kg, PRN Blood Glucose Results, Start date: 12/27/16 3:37:00 CDT, Duration: 30 day, Stop date: 01/26/17 3:36:00 CDT Notes: Roll in palms of hands gently; Do not shake vigorously. (Same as: NovoLO G)"single patient use only"WASTE: F/P - Black; E - Municipal Trash Bin Stable f or 28 days at room temperature.Expires in days from Date Start Date: 12/27/16 Stop Date: 12/29/16 Status: Discontinued insulin isophane 5 unit, 0.05 mL, Route: SUB-Q, Drug form: INJ, Daily, Dosing Weight 44.9, kg, St art date: 12/27/16 9:00:00 CDT, Duration: 30 day, Stop date: 01/25/17 9:00:00 CD T Notes: Roll in palms of hands gently; Do not shake vigorously. (Same as: NovoLI N N, Humulin N)Do not hold insulin without contacting prescriber"single patient use only"WASTE: F/P - Black; E - Municipal Trash Bin Stable for 14 days at room temperatureExpires in days from Date Start Date: 12/27/16 Stop Date: 12/29/16 Status: Discontinued Klor-Con 40 mEq, 2 tab, Route: PO, Drug form: ERTAB, ONCE, Dosing Weight 44.9, kg, Start date: 12/27/16 11:47:00 CDT, Stop date: 12/27/16 11:47:00 CDT Notes: (Same as: K-Dur 20)"Do Not Crush" With food and full glass of water Start Date: 12/27/16 Stop Date: 12/27/16 Status: Discontinued lidocaine (ANES) Route: IV, Drug form: INJ, ONCE, Stop date: 12/28/16 13:23:00 CDT Start Date: 12/28/16 Stop Date: 12/28/16 Status: Completed magnesium oxide 800 mg, 2 tab, Route: PO, Drug form: TAB, PRN, Dosing Weight 44.9, kg, PRN Abnor mal Lab Result, FOR ICU USE ONLY, Start date: 12/27/16 8:05:00 CDT, Duration: 30 day, Stop date: 01/26/17 8:04:00 CDT Notes: (Same as: Mag-Ox 400)Magnesium oxide [id number] elemental magnesiumDose= ____mg magnesium oxide (___mg elemental magnesium) Start Date: 12/27/16 Stop Date: 12/29/16 Status: Discontinued magnesium sulfate 2 gm, 50 mL, Route: IVPB, Drug form: INJ, PRN, Dosing Weight 44.9, kg, PRN Abnor mal Lab Result, Start date: 12/27/16 8:05:00 CDT, Duration: 30 day, Stop date: 01/26/17 8:04:00 CDT, FOR ICU USE ONLY Notes: WASTE: F/P - Sink; E - Municipal Trash Bin Start Date: 12/27/16 Stop Date: 12/29/16 Status: Discontinued methimazole 10 mg, 2 tab, Route: PO, Drug form: TAB, Q8H, Dosing Weight 44.9, kg, Start date : 12/27/16 8:00:00 CDT, Duration: 30 day, Stop date: 01/26/17 0:00:00 CDT Start Date: 12/27/16 Stop Date: 12/29/16 Status: Discontinued metoclopramide (ANES) Route: IV, Drug form: INJ, ONCE, Stop date: 12/28/16 13:23:00 CDT Start Date: 12/28/16 Stop Date: 12/28/16 Status: Completed midazolam (ANES) Route: IV, Drug form: SOLN, ONCE, Stop date: 12/28/16 13:23:00 CDT Start Date: 12/28/16 Stop Date: 12/28/16 Status: Completed ondansetron 4 mg, 2 mL, Route: IVP, Drug form: INJ, Q6H, Dosing Weight 44.9, kg, PRN Nausea & Vomiting, Start date: 12/27/16 3:06:00 CDT, Duration: 30 day, Stop date: 01/26/17 3:05:00 CDT Notes: (Same as: Sotero) MEDICATION WASTE Product Size: 4 mgProduct Was nakul: ___ mg Start Date: 12/27/16 Stop Date: 12/29/16 Status: Discontinued ondansetron (ANES) Route: IV, Drug form: INJ, ONCE, Stop date: 12/28/16 13:23:00 CDT Start Date: 12/28/16 Stop Date: 12/28/16 Status: Completed potassium chloride 40 mEq, 2 tab, Route: PO, Drug form: ERTAB, ONCE, Dosing Weight 44.9, kg, Start date: 12/27/16 6:21:00 CDT, Stop date: 12/27/16 6:21:00 CDT Notes: (Same as: K-Dur 20)"Do Not Crush" With food and full glass of water Start Date: 12/27/16 Stop Date: 12/27/16 Status: Completed potassium chloride 20 mEq, 100 mL, Route: IVPB, Drug form: INJ, PRN, Dosing Weight 44.9, kg, PRN Ab normal Lab Result, Via central line, Start date: 12/27/16 8:05:00 CDT, Duration: 30 day, Stop date: 01/26/17 8:04:00 CDT, FOR ICU USE ONLY Notes: (Same as: KCL) Infuse no faster than 10 mEq/hr if given peripherally. Start Date: 12/27/16 Stop Date: 12/29/16 Status: Discontinued potassium chloride 10 mEq, 100 mL, Route: IVPB, Drug form: INJ, PRN, Dosing Weight 44.9, kg, PRN Ab normal Lab Result, Via peripheral line, Start date: 12/27/16 8:05:00 CDT, Durati on: 30 day, Stop date: 01/26/17 8:04:00 CDT, FOR ICU USE ONLY Notes: Infuse at a rate of 10 mEq/hr.(Same as: KCL) Start Date: 12/27/16 Stop Date: 12/29/16 Status: Discontinued potassium chloride 20 mEq, 1 tab, Route: PO, Drug form: ERTAB, PRN, Dosing Weight 44.9, kg, PRN Abn ormal Lab Result, Start date: 12/27/16 8:05:00 CDT, Duration: 30 day, Stop date: 01/26/17 8:04:00 CDT, FOR ICU USE ONLY Notes: (Same as: K-Dur 20)"Do Not Crush" With food and full glass of water Start Date: 12/27/16 Stop Date: 12/29/16 Status: Discontinued potassium chloride 20 mEq, 1 tab, Route: NJ, Drug form: ERTAB, PRN, Dosing Weight 44.9, kg, PRN Abn ormal Lab Result, Start date: 12/27/16 8:05:00 CDT, Duration: 30 day, Stop date: 01/26/17 8:04:00 CDT, FOR ICU USE ONLY Notes: (Same as: K-Dur 20)"Do Not Crush" With food and full glass of water Start Date: 12/27/16 Stop Date: 12/29/16 Status: Discontinued potassium phosphate + sodium chloride 0.9% INJ 250 mL 15 mmol, 5 mL, Route: IVPB, PRN, Dosing Weight 44.9, kg, PRN Abnormal Lab Result , Start date: 12/27/16 8:05:00 CDT, Duration: 30 day, Stop date: 01/26/17 8:04:0 0 CDT, FOR ICU USE ONLY Notes: (Same as: K Phosphate.) 1 mMol phoshate has 1.47 mEq potassium Infuse o chriss 4 hours Start Date: 12/27/16 Stop Date: 12/29/16 Status: Discontinued potassium phosphate + sodium chloride 0.9% INJ 250 mL 45 mmol, 15 mL, Route: IVPB, PRN, Dosing Weight 44.9, kg, PRN Abnormal Lab Resul t, Start date: 12/27/16 8:05:00 CDT, Duration: 30 day, Stop date: 01/26/17 8:04: 00 CDT, FOR ICU USE ONLY Notes: (Same as: K Phosphate.) 1 mMol phoshate has 1.47 mEq potassium Infuse o chriss 4 hours Start Date: 12/27/16 Stop Date: 12/29/16 Status: Discontinued potassium phosphate + sodium chloride 0.9% INJ 250 mL 30 mmol, 10 mL, Route: IVPB, PRN, Dosing Weight 44.9, kg, PRN Abnormal Lab Resul t, Start date: 12/27/16 8:05:00 CDT, Duration: 30 day, Stop date: 01/26/17 8:04: 00 CDT, FOR ICU USE ONLY Notes: (Same as: K Phosphate.) 1 mMol phoshate has 1.47 mEq potassium Infuse o chriss 4 hours Start Date: 12/27/16 Stop Date: 12/29/16 Status: Discontinued potassium phosphate-sodium phosphate 250 mg-280 mg-160 mg oral powder for recons titution 2 pkt, Route: PO, Drug Form: PDR/REC, Dosing Weight 44.9, kg, PRN, PRN Abnormal Lab Result, FOR ICU USE ONLY, Start date: 12/27/16 8:05:00 CDT, Duration: 30 day , Stop date: 01/26/17 8:04:00 CDT Notes: (Same as: Phos-NaK) Each 1.5 gm pkt has 250mg phosphorous. Mix w/2.5oz w ater and stir. Start Date: 12/27/16 Stop Date: 12/29/16 Status: Discontinued propofol (ANES) Route: IV, Drug form: INJ, ONCE, Stop date: 12/28/16 13:23:00 CDT Start Date: 12/28/16 Stop Date: 12/28/16 Status: Completed Pyridium 200 mg oral tablet 200 mg=1 tab, PO, TID, PRN Dysuria, X 2 day, # 6 tab, 0 Refill(s), Pharmacy: [id number] Start Date: 12/29/16 Stop Date: 12/31/16 Status: Completed sodium chloride 0.9% 1000 ml INJ (ANES) Route: IV, Total Volume: 1,000, Start date: 12/28/16 12:44:00 CDT, Stop date: 13:44:00 CDT Start Date: 12/28/16 Stop Date: 12/28/16 Status: Completed sodium chloride 0.9% 1000 ml INJ 1,000 mL 1,000 mL, Rate: 125 ml/hr, Infuse over: 8 hr, Route: IV, Dosing Weight 44.9 kg, Total Volume: 1,000, Start date: 12/27/16 3:35:00 CDT, Duration: 30 day, Stop da te: 01/26/17 3:34:00 CDT Start Date: 12/27/16 Stop Date: 12/28/16 Status: Discontinued sodium phosphate + D5W 250 mL 15 mmol, 5 mL, Route: IVPB, PRN, Dosing Weight 44.9, kg, PRN Abnormal Lab Result , Start date: 12/27/16 8:05:00 CDT, Duration: 30 day, Stop date: 01/26/17 8:04:0 0 CDT, FOR ICU USE ONLY Start Date: 12/27/16 Stop Date: 12/29/16 Status: Discontinued sodium phosphate + D5W 250 mL 30 mmol, 10 mL, Route: IVPB, PRN, Dosing Weight 44.9, kg, PRN Abnormal Lab Resul t, Start date: 12/27/16 8:05:00 CDT, Duration: 30 day, Stop date: 01/26/17 8:04: 00 CDT, FOR ICU USE ONLY Start Date: 12/27/16 Stop Date: 12/29/16 Status: Discontinued sodium phosphate + D5W 500 mL 45 mmol, 15 mL, Route: IVPB, PRN, Dosing Weight 44.9, kg, PRN Abnormal Lab Resul t, Start date: 12/27/16 8:05:00 CDT, Duration: 30 day, Stop date: 01/26/17 8:04: 00 CDT, FOR ICU USE ONLY Start Date: 12/27/16 Stop Date: 12/29/16 Status: Discontinued Tylenol with Codeine #3 oral tablet 1 - 2 tab, PO, Q4H, PRN Pain, X 4 day, # 36 tab, 0 Refill(s) Start Date: 12/29/16 Stop Date: 01/02/17 Status: Ordered Zofran 4 mg, 2 mL, Route: IV, Drug form: INJ, Q4H, Dosing Weight 44.9, kg, PRN as neede d for nausea/vomiting, Start date: 12/27/16 2:58:00 CDT, Duration: 30 day, Stop date: 01/26/17 2:57:00 CDT Notes: (Same as: Zofran) MEDICATION WASTE Product Size: 4 mgProduct Was nakul: ___ mg Start Date: 12/27/16 Stop Date: 12/27/16 Status: Deleted Zosyn + sodium chloride 0.9% INJ 100 mL 3.375 gm, Route: IVPB, ABXQ8H, Dosing Weight 44.9, kg, Start date: 12/27/16 4:00 :00 CDT, Duration: 3 day, Stop date: 12/29/16 20:00:00 CDT, ABX Indication: Urin rick Tract Infection Notes: (Same as: Zosyn)Dosing based on Piperacillin component MEDICATION WA AZAEL Product Size: 3375 mgProduct Wasted: ___ mg Start Date: 12/27/16 Stop Date: 12/29/16 Status: Discontinued Results ELECTROLYTES 1 2 3 Most recent to oldest [Reference Range]: 140 mEq/L (12/29/16 4:07 AM) 135 mEq/L (12/28/16 4:35 AM) 138 mEq/L (12/27/16 4:09 AM) Sodium Lvl [135-145 mEq/L] 3.2 mEq/L *LOW* (12/29/16 4:07 AM) 3.7 mEq/L (12/28/16 4:35 AM) 4.4 mEq/L (12/27/16 5:51 PM) Potassium Lvl [3.5-5.1 mEq/L] 103 mEq/L (12/29/16 4:07 AM) 102 mEq/L (12/28/16 4:35 AM) 103 mEq/L (12/27/16 4:09 AM) Chloride Lvl [95-109 mEq/L] 23 mEq/L *LOW* (12/29/16 4:07 AM) 23 mEq/L *LOW* (12/28/16 4:35 AM) 25 mEq/L (12/27/16 4:09 AM) CO2 [24-32 mEq/L] 17.2 mEq/L (12/29/16 4:07 AM) 13.7 mEq/L (12/28/16 4:35 AM) 13.1 mEq/L (12/27/16 4:09 AM) AGAP [10.0-20.0 mEq/L] CHEM PANEL 1 2 3 Most recent to oldest [Reference Range]: <0.15 mg/dL *LOW* (12/29/16 4:07 AM) 0.21 mg/dL *LOW* (12/28/16 4:35 AM) 0.15 mg/dL *LOW* (12/27/16 4:09 AM) Creatinine Lvl [0.50-1.40 mg/dL] 178 mL/min/1.73m2 1 *NA* (12/29/16 4:07 AM) 159 mL/min/1.73m2 2 *NA* (12/28/16 4:35 AM) 178 mL/min/1.73m2 3 *NA* (12/27/16 4:09 AM) eGFR 4 mg/dL *LOW* (12/29/16 4:07 AM) 4 mg/dL *LOW* (12/28/16 4:35 AM) 6 mg/dL *LOW* (12/27/16 4:09 AM) BUN [7-22 mg/dL] See Note 4 (12/29/16 4:07 AM) 40 *HI* (12/27/16 4:09 AM) B/C Ratio [6-25] 151 mg/dL *HI* (12/29/16 4:07 AM) 151 mg/dL *HI* (12/28/16 4:35 AM) 130 mg/dL *HI* (12/27/16 4:09 AM) Glucose Lvl [70-99 mg/dL] 5.6 g/dL *LOW* (12/29/16 4:07 AM) 6.2 g/dL *LOW* (12/27/16 4:09 AM) Total Protein [6.4-8.4 g/dL] 1.9 g/dL *LOW* (12/29/16 4:07 AM) 2.3 g/dL *LOW* (12/27/16 4:09 AM) Albumin Lvl [3.5-5.0 g/dL] 3.7 g/dL (12/29/16 4:07 AM) 3.9 g/dL (12/27/16 4:09 AM) Globulin [2.7-4.2 g/dL] 0.5 *LOW* (12/29/16 4:07 AM) 0.6 *LOW* (12/27/16 4:09 AM) A/G Ratio [0.7-1.6] 7.8 mg/dL *LOW* (12/29/16 4:07 AM) 8.3 mg/dL *LOW* (12/28/16 4:35 AM) 7.8 mg/dL *LOW* (12/27/16 4:09 AM) Calcium Lvl [8.5-10.5 mg/dL] 3.0 mg/dL (12/28/16 4:35 AM) 3.2 mg/dL (12/27/16 4:09 AM) Phosphorus [2.5-4.5 mg/dL] 1.2 mg/dL *LOW* (12/28/16 4:35 AM) 2.0 mg/dL (12/27/16 5:51 PM) 1.4 mg/dL *LOW* (12/27/16 4:09 AM) Magnesium Lvl [1.8-2.4 mg/dL] 12 unit/L (12/29/16 4:07 AM) 14 unit/L (12/27/16 4:09 AM) ALT [0-65 unit/L] 18 unit/L (12/29/16 4:07 AM) 19 unit/L (12/27/16 4:09 AM) AST [0-37 unit/L] 134 unit/L (12/29/16 4:07 AM) 145 unit/L *HI* (12/27/16 4:09 AM) Alk Phos [39-136 unit/L] 1.0 mg/dL (12/29/16 4:07 AM) 0.5 mg/dL (12/27/16 4:09 AM) Bili Total [0.2-1.3 mg/dL] 33 unit/L (12/29/16 4:07 AM) Amylase Lvl [25-115 unit/L] 264 unit/L (12/29/16 4:07 AM) 419 unit/L *HI* (12/27/16 4:09 AM) Lipase Lvl [73-393 unit/L] 1.04 mmol/L *HI* (12/27/16 4:09 AM) Ketone Quantitative [<=0.27 mmol/L] 1.0 mMol/L (12/27/16 4:09 AM) Lactic Acid Lvl [0.5-2.2 mMol/L] 1Result Comment: [...] be mul tiplied by the estimated BMI. 4Result Comment: can not calculate b/c ratio due to creatinine <0.15 CARDIAC ENZYMES 1 2 3 Most recent to oldest [Reference Range]: 20 unit/L (12/27/16 8:01 AM) 21 unit/L (12/27/16 4:09 AM) Total CK [12-191 unit/L] <0.02 ng/mL (12/27/16 8:01 AM) <0.02 ng/mL (12/27/16 4:09 AM) Troponin-I [0.00-0.40 ng/mL] SPECIAL CHEMISTRY 1 2 3 Most recent to oldest [Reference Range]: 9.6 % *HI* (12/29/16 4:07 AM) Hgb A1C [<=5.6 %] URINE AND STOOL 1 2 3 Most recent to oldest [Reference Range]: Marked *ABN* (12/27/16 3:17 AM) UA Turbidity [Clear] Yellow *NA* (12/27/16 3:17 AM) UA Color [Yellow] 5.0 (12/27/16 3:17 AM) UA pH [5.0-8.0] 1.010 (12/27/16 3:17 AM) UA Spec Grav [<=1.030] Negative mg/dL *NA* (12/27/16 3:17 AM) UA Glucose [Negative mg/dL] Large *ABN* (12/27/16 3:17 AM) UA Blood [Negative] Negative mg/dL *NA* (12/27/16 3:17 AM) UA Ketones [Negative mg/dL] 30 mg/dL *ABN* (12/27/16 3:17 AM) UA Protein [Negative mg/dL] <=1.0 mg/dL *NA* (12/27/16 3:17 AM) UA Urobilinogen [0.1-1.0 mg/dL] Negative *NA* (12/27/16 3:17 AM) UA Bili [Negative] Large *ABN* (12/27/16 3:17 AM) UA Leuk Est [Negative] Negative (12/27/16 3:17 AM) UA Nitrite [Negative] >182 /HPF *HI* (12/27/16 3:17 AM) UA WBC [0-5 /HPF] >182 /HPF *HI* (12/27/16 3:17 AM) UA RBC [0-2 /HPF] Few /HPF *NA* (12/27/16 3:17 AM) UA Bacteria [None Seen /HPF] Occasional /LPF *NA* (12/27/16 3:17 AM) UA Sq Epi [Few /LPF] Few /LPF *NA* (12/27/16 3:17 AM) UA Mucus [None Seen /LPF] Moderate /HPF *ABN* (12/27/16 3:17 AM) UA [place] Yeast [None Seen /HPF] Occasional *ABN* (12/27/16 3:17 AM) UA Hyph Yeast [None Seen] HEMATOLOGY 1 2 3 Most recent to oldest [Reference Range]: 5.7 K/CMM (12/29/16 4:07 AM) 7.4 K/CMM (12/28/16 4:35 AM) 5.8 K/CMM (12/27/16 4:09 AM) WBC [3.7-10.4 K/CMM] 3.25 M/CMM *LOW* (12/29/16 4:07 AM) 3.88 M/CMM *LOW* (12/28/16 4:35 AM) 3.65 M/CMM *LOW* (12/27/16 4:09 AM) RBC [4.20-5.40 M/CMM] 8.9 g/dL *LOW* (12/29/16 4:07 AM) 10.6 g/dL *LOW* (12/28/16 4:35 AM) 10.0 g/dL *LOW* (12/27/16 4:09 AM) Hgb [12.0-16.0 g/dL] 26.9 % *LOW* (12/29/16 4:07 AM) 31.9 % *LOW* (12/28/16 4:35 AM) 29.4 % *LOW* (12/27/16 4:09 AM) Hct [36.0-48.0 %] 82.8 fL (12/29/16 4:07 AM) 82.3 fL (12/28/16 4:35 AM) 80.5 fL (12/27/16 4:09 AM) MCV [80.0-98.0 fL] 27.3 pg (12/29/16 4:07 AM) 27.4 pg (12/28/16 4:35 AM) 27.4 pg (12/27/16 4:09 AM) MCH [27.0-31.0 pg] 33.0 g/dL (12/29/16 4:07 AM) 33.2 g/dL (12/28/16 4:35 AM) 34.1 g/dL (12/27/16 4:09 AM) MCHC [32.0-36.0 g/dL] 14.2 % (12/29/16 4:07 AM) 14.2 % (12/28/16 4:35 AM) 14.2 % (12/27/16 4:09 AM) RDW [11.5-14.5 %] 138 K/CMM (12/29/16 4:07 AM) 158 K/CMM (12/28/16 4:35 AM) 166 K/CMM (12/27/16 4:09 AM) Platelet [133-450 K/CMM] 10.9 fL *HI* (12/29/16 4:07 AM) 10.8 fL *HI* (12/28/16 4:35 AM) 11.3 fL *HI* (12/27/16 4:09 AM) MPV [7.4-10.4 fL] 62.2 % (12/29/16 4:07 AM) 69.6 % (12/28/16 4:35 AM) 66.4 % (12/27/16 4:09 AM) Segs [45.0-75.0 %] 24.3 % (12/29/16 4:07 AM) 18.0 % *LOW* (12/28/16 4:35 AM) 21.2 % (12/27/16 4:09 AM) Lymphocytes [20.0-40.0 %] 11.6 % (12/29/16 4:07 AM) 11.3 % (12/28/16 4:35 AM) 10.6 % (12/27/16 4:09 AM) Monocytes [2.0-12.0 %] 1.7 % (12/29/16 4:07 AM) 1.0 % (12/28/16 4:35 AM) 1.7 % (12/27/16 4:09 AM) Eosinophils [0.0-4.0 %] 0.2 % (12/29/16 4:07 AM) 0.1 % (12/28/16 4:35 AM) 0.1 % (12/27/16 4:09 AM) Basophils [0.0-1.0 %] 3.5 K/CMM (12/29/16 4:07 AM) 5.1 K/CMM (12/28/16 4:35 AM) 3.9 K/CMM (12/27/16 4:09 AM) Segs-Bands # [1.5-8.1 K/CMM] 1.4 K/CMM (12/29/16 4:07 AM) 1.3 K/CMM (12/28/16 4:35 AM) 1.2 K/CMM (12/27/16 4:09 AM) Lymphocytes # [1.0-5.5 K/CMM] 0.7 K/CMM (12/29/16 4:07 AM) 0.8 K/CMM (12/28/16 4:35 AM) 0.6 K/CMM (12/27/16 4:09 AM) Monocytes # [0.0-0.8 K/CMM] 0.1 K/CMM (12/29/16 4:07 AM) 0.1 K/CMM (12/28/16 4:35 AM) 0.1 K/CMM (12/27/16 4:09 AM) Eosinophils # [0.0-0.5 K/CMM] 14.9 seconds *HI* (12/27/16 4:09 AM) PT [12.0-14.7 seconds] 1.15 (12/27/16 4:09 AM) INR [0.85-1.17] 28.7 seconds (12/27/16 4:09 AM) PTT [22.9-35.8 seconds] BACTERIAL - SEROLOGY 1 2 3 Most recent to oldest [Reference Range]: Negative (12/27/16 3:17 AM) MRSA by PCR Immunizations Not Given [...] No Assessment and Plan Extracted from: Title: REFRIGERATION PERSON ONC Reconsultation Author: Nya Mancilla Date: 12/27/16 MD Endocrine Consult Note: Patient Room: [address] (: 1975) F Attending: Walter Fernandez MDPhone: Service: Internal Medicine DATE OF CONSULT: 12/27/16 [...] is out of control as a result. REFRIGERATION PERSON History Menarche/Menopause: 12/ongoing Hormonal exposure with OCPs: [...] stools. : Denies dysuria, hesitancy, frequency, hematuria REFRIGERATION PERSON: Patient +vaginal bleeding. -change in vaginal discharge, [...] Pelvic exam: deferred by patient Allergies (3) ActiveReaction AncefNone documented KeflexRash, NOS ciprofloxacinNone documented Medications (33) Active Scheduled Meds (5): [...] ml/hr PHYSICAL EXAMINATION: Vital Signs - Reviewed VitalsTmp(F)[id number] 06/01 10:23----[id number]--- 12/27 09:02----[id number]------ 12/27 08:[id number]--- 12/27 07:00----[id number]--- 12/27 06:00----[id number]--- 24 Hr Tmax: 99.2F (37.33c) at 12/27 02:15Vital Signs are the last 5 in the past 48 hours. DateWt(kg)Wt(lb)Ht(cm)Ht(in)Method 12/27 (initial) 44.90 98.78Measured 54.94 61.00Stated DATA: 24hr Labs 12/27 0801 Total CK20 Troponin-I<0.02 12/27 0557 Glucose SIF164 H 12/27 0409 Lactic Acid Lvl1.0 Lipase Rjq803 H Magnesium Lvl1.4 L Phosphorus3.2 Troponin-I<0.02 Sodium Cnt388 Potassium Lvl3.1 L Chloride Lev983 CO225 AGAP13.1 Glucose Ucw053 H Creatinine Lvl0.15 L BUN6 L B/C Ratio40 H Total Protein6.2 L Albumin Lvl2.3 L Globulin3.9 A/G Ratio0.6 L Calcium Lvl7.8 L ALT14 AST19 Alk Zlyi971 H Bili Total0.5 zINW439 Total CK21 Ketone Quantitative1.04 H WBC5.8 RBC3.65 L Hgb10.0 L Hct29.4 L MCV80.5 MCH27.4 MCHC34.1 RDW14.2 Jerxlhsa354 MPV11.3 H Segs66.4 Zirwgufoz30.6 Itnpraqilsp85.2 Eosinophils1.7 Basophils0.1 Segs-Bands #3.9 Lymphocytes #1.2 Monocytes #0.6 Eosinophils #0.1 PT14.9 H INR1.15 PTT28.7 12/27 0317 UA ColorYellow UA TurbidityMarked UA Spec Grav1.010 UA pH5.0 UA Amxyvyi88 UA GlucoseNegative UA KetonesNegative UA BiliNegative UA BloodLarge UA Urobilinogen<=1.0 UA NitriteNegative UA Leuk EstLarge UA RBC>182 H UA WBC>182 H UA BacteriaFew UA MucusFew UA Sq EpiOccasional UA [place] YeastModerate UA Hyph YeastOccasional ASSESSMENT AND PLAN: _ 40-year-old, P3-0-1-3 with [...] time. Nya Mancilla MD Gynecologic Oncology Staff [phone] Extracted from: Title: Clinical Document Author: Micheal Reynolds MD Date: 12/27/16 PATIENT NAME: CHIKA MALDONADO ATTENDING PHYSICIAN: PRUDENCE RAE DATE OF ADMISSION: 12/27/2016 * * [...] and replacement on two occasions, presents to [facility] in [place] with c/o several days of dysuria, chills [...] insulin 2/2 N/V. She requested transfer to [facility] for further care. Urology consultation was obtained with Dr. Monteior via phone and pt was transferred to the IMCU at [facility]. She currently denies fever but admits to [...] HISTORY: father with asthma ALLERGIES: Allergies (3) ActiveReaction AncefNone documented KeflexRash, NOS ciprofloxacinNone documented HOME MEDICATIONS: Please see medical reconciliation form. SOCIAL HISTORY: no smoking, EtOH or drug use. REVIEW OF SYSTEMS: 12-point review of systems negative except for that detailed in above HPI PHYSICAL EXAMINATION: VitalsTmp(F)[id number] 12/27 04:00----[id number]--- 12/27 03:52----[id number]--- 12/27 03:00----[id number]--- 12/27 02:55----[id number]------ 12/27 02:[id number]--- 24 Hr Tmax: 99.2F (37.33c) at 12/27 02:15Vital Signs are the last 5 in the past 48 hours. I&ORecordInOutBal 11/3123hr Tot 178 300 -122 3024hr Tot 0 0 0 GENERAL: in no [...] DATA: Labs (Last four charted values) WBC 5.8(DEC 27) Hgb L 10.0(DEC 27) Hct L 29.4(DEC 27) Plt 166(DEC 27) Radiology: none new Assessment&Plan: 41 yo [...] pt NPO for now. 4. Will ask DIRECTOR BUSINESS DEVELOPMENT to evaluate. 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 Will place on methimazole 20mg PO q8 and propanolol 20mg PO QID. 9. recheck her Mg, currently pending. replace as needed, check Ca++. 10. 2/2 thyrotoxicosis, no evidence of AFIB recently and pt comfortable without dyspnea. Start propanolol q6hrs. EKG shows sinus tachycardia. date/time of encounter: 12/27/2016 03:15
--- OUTSIDE RECORDS SUMMARY | 2019-02-11 16:44 | XMS REPORT | Summary of Care ---
Author Author [facility] Organization [facility] Address Unknown Phone Unavailable Encounter CRISTIANE Lindo(JOSEPH) [id number] Date(s): 09/01/18 - 09/30/18 [facility] [address] [place] [id number] [place] [address] Discharge Disposition: Home or Self Care Attending Physician: Nya Mancilla MD Referring Physician: Nya Mancilla MD Vital Signs 1 2 3 Most recent to oldest [Reference Range]: 154.9 cm (09/02/18 10:50 AM) 154.94 cm (09/01/18 10:54 AM) Height 98 DegF (09/02/18 2:25 PM) 97.9 DegF (09/02/18 1:35 PM) 98 DegF (09/02/18 12:50 PM) Temperature Oral [96.4-99.1 DegF] 121/80 mmHg (09/02/18 2:25 PM) 121/79 mmHg (09/02/18 1:35 PM) 116/77 mmHg (09/02/18 12:50 PM) Blood Pressure [90-140/60-90 mmHg] 18 BRMIN (09/02/18 2:25 PM) 18 BRMIN (09/02/18 1:35 PM) 18 BRMIN (09/02/18 12:50 PM) Respiratory Rate [14-20 BRMIN] 92 bpm (09/02/18 2:25 PM) 87 bpm (09/02/18 1:35 PM) 87 bpm (09/02/18 12:50 PM) Peripheral Pulse Rate [60-100 bpm] 55.008 kg (09/02/18 10:50 AM) 55.3 kg (09/01/18 10:54 AM) Weight 22.93 m2 (09/02/18 10:50 AM) 23.04 m2 (09/01/18 10:54 AM) Body Mass Index Problem List Condition Effective Dates Status Health Status Informant Diabetes(Confirmed) Active Gallbladder Active disease(Confirmed)1 Goiter(Confirmed) 2004 Active Heartburn(Confirmed) Resolved Hypomagnesemia(Confi Active rmed) Hypophosphatemia(Con Active firmed) MRSA(Confirmed)2, 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 Allergies, Adverse Reactions, Alerts Substance Reaction Severity Status ciprofloxacin Active Keflex1 Rash, NOS Active Ancef Severe Active 1tolerated Cefepime during 08/23/[address] 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 (Same as: Tylenol) Start Date: 09/01/18 Stop Date: 09/01/18 Status: Completed Tylenol 650 mg, 2 tab, Route: PO, Drug form: TAB, On Adm, Start date: 09/02/18 12:00:00 PIG CASTING MACHINE OPERATOR, Stop date: 09/02/18 21:00:00 PIG CASTING MACHINE OPERATOR Notes: Do not exceed 4 gm/day. (Same as: Tylenol) Start Date: 09/02/18 Stop Date: 09/02/18 Status: Completed Results BLOOD BANK RESULTS Most recent to 1 2 oldest [Reference Range]: ABO/Rh O POS *Unknown* (09/01/18 10:49 AM) Antibody Scrn Negative (09/01/18 10:49 AM) RBC product Product available Product available (09/03/18 8:07 AM) (09/01/18 7:00 AM) Immunizations Not Given Vaccine Date Status Refusal Reason pneumococcal 23-valent vaccine 07/30/16 Not Given Patient Refuses pneumococcal 23-valent vaccine 06/20/16 Not Given Patient Refuses influenza virus vaccine, inactivated 07/30/16 Not Given Patient Refuses Procedures Procedure Date Related Diagnosis Body Site Status Cholecystectomy 07/29/16 Completed Tubal ligation Completed Social History Social History Type Response Substance Abuse Use: None. Sexual Sexually active: Yes. Alcohol Never Smoking Status Former smoker; Type: Cigarettes; Ready to change: No; Concerns about tobacco use in household: No; Exposure to Tobacco Smoke None; Cigarette Smoking Last 365 Days No; Reg Smoking Cessation Counseling No; Other Tobacco Frequency 07/05/2014 Quit; entered on: 03/10/17 Assessment and Plan No data available for this section
--- OUTSIDE RECORDS SUMMARY | 2019-02-11 16:44 | XMS REPORT | Summary of Care ---
Author Author [facility] Organization [facility] Address Unknown Phone Unavailable Encounter CRISTIANE Lindo(JOSEPH) [id number] Date(s): 10/29/17 - 10/30/17 [facility] [address] [place] [address]- Encounter Diagnosis Type 2 diabetes mellitus with ketoacidosis without coma (Final) - 11/06/17 Thyrotoxicosis, unspecified with thyrotoxic crisis or storm (Final) - Unspecified abdominal pain (Final) - Discharge Disposition: Acute Care Attending Physician: Susana Waddell DO Vital Signs 1 2 3 Most recent to oldest [Reference Range]: 154.94 cm (10/29/17 8:08 PM) Height 97.9 DegF (10/29/17 8:08 PM) Temperature Oral [96.4-99.1 DegF] 110/71 mmHg (10/30/17 12:00 AM) 121/53 mmHg (10/29/17 10:43 PM) 117/87 mmHg (10/29/17 9:47 PM) Blood Pressure [90-140/60-90 mmHg] 23 BRMIN *HI* (10/30/17 12:32 AM) 24 BRMIN *HI* (10/30/17 12:00 AM) 24 BRMIN *HI* (10/29/17 11:28 PM) Respiratory Rate [14-20 BRMIN] 182 bpm *HI* (10/29/17 9:40 PM) 155 bpm *HI* (10/29/17 8:08 PM) Peripheral Pulse Rate [60-100 bpm] 46.364 kg (10/29/17 8:08 PM) Weight 19.31 m2 (10/29/17 8:08 PM) Body Mass Index Problem List Condition [...] Active 1tolerated Cefepime during 08/23/16 admission at [facility] for several doses as per MD and as documented in e-MAR Medications D5NS 1,000 mL 1,000 mL, Rate: 250 ml/hr, Infuse over: 4 hr, Route: IV, Dosing Weight 46.364 kg , Total Volume: 1,000, Start date: 10/29/17 21:33:00 CDT, Duration: 30 day, Stop date: 11/28/17 21:32:00 CDT, 1.42, m2 Start Date: 10/29/17 Stop Date: 10/30/17 Status: Discontinued Dextrose 5% with 0.45% NaCl IV 1,000 mL 1,000 mL, Rate: 100 ml/hr, Infuse over: 10 hr, Route: IV, Dosing Weight 46.364 k g, Total Volume: 1,000, Start date: 10/29/17 23:57:00 CDT, Duration: 30 day, Sto p date: 11/28/17 23:56:00 CDT, 1.42, m2 Start Date: 10/29/17 Stop Date: 10/30/17 Status: Discontinued Dextrose 50% Syringe 12.5 gm, 25 mL, Route: IVP, Drug Form: INJ, Dosing Weight 46.364, kg, PRN, PRN B lood Glucose Results, Start date: 10/29/17 21:33:00 CDT, Duration: 30 day, Stop date: 11/28/17 21:32:00 CDT Start Date: 10/29/17 Stop Date: 10/30/17 Status: Discontinued Dextrose 50% Syringe 25 gm, 50 mL, Route: IVP, Drug Form: INJ, Dosing Weight 46.364, kg, PRN, PRN Blo od Glucose Results, Start date: 10/29/17 21:33:00 CDT, Duration: 30 day, Stop da te: 11/28/17 21:32:00 CDT Start Date: 10/29/17 Stop Date: 10/30/17 Status: Discontinued Dextrose 50% Syringe 25 gm, Route: IVP, Dosing Weight 46.364, kg, ONCE, STAT, Start date: 10/29/17 23 :56:00 CDT, Stop date: 10/29/17 23:56:00 CDT Start Date: 10/29/17 Stop Date: 10/30/17 Status: Completed esmolol 25,000 microgram, Route: IVP, ONCE, Dosing Weight 46.364, kg, Priority: STAT, St art date: 10/29/17 21:16:00 CDT, Stop date: 10/29/17 21:16:00 CDT Start Date: 10/29/17 Stop Date: 10/29/17 Status: Completed esmolol 25,000 microgram, Route: IVP, ONCE, Dosing Weight 46.364, kg, Priority: STAT, St art date: 10/29/17 21:15:00 CDT, Stop date: 10/29/17 21:15:00 CDT Start Date: 10/29/17 Stop Date: 10/29/17 Status: Completed esmolol 25,000 microgram, Route: IVP, ONCE, Dosing Weight 46.364, kg, Priority: STAT, St art date: 10/29/17 21:16:00 CDT, Stop date: 10/29/17 21:16:00 CDT Start Date: 10/29/17 Stop Date: 10/29/17 Status: Completed esmolol 2500 mg in NS 250 mL (Titrate.) IV 2,500 mg 2,500 mg, 250 mL, Rate: Titrate, Start Dose: 50 microgram/kg/min, Titration: 50 microgram/kg/min every 15 minutes, Goal(s): Maintain HR between 60 - 100, Max Do se: 300 microgram/kg/min, Route: IV, Dosing Weight 46.364 kg, Total Volume: 250, Start date... Notes: (Same as: Brevibloc)10 mg/ml conc. Start Date: 10/29/17 Stop Date: 10/30/17 Status: Discontinued glucagon 1 mg, Route: IM, Drug form: PDR/INJ, PRN, Dosing Weight 46.364, kg, PRN Blood Gl ucose Results, Start date: 10/29/17 21:33:00 CDT, Duration: 30 day, Stop date: 0 11/28/17 21:32:00 CDT Start Date: 10/29/17 Stop Date: 10/30/17 Status: Discontinued Insulin (regular) Titrate IV additive 100 unit + Sodium Chloride 0.9% (titrate) 99 mL 99 mL, Rate: Titrate, Dosing Weight 46.364, kg, Route: IV, Total Volume: 100, Pr iority: Routine, Start Date: 10/29/17 21:33:00 CDT, Duration: 30 day, Stop date: 11/28/17 21:32:00 CDT, Replace Every: 24 hr Notes: (Same as: Humulin R and NovoLIN R)WASTE: F/P - Black; E - Municipal Trash Bin (Do not shake) Start Date: 10/29/17 Stop Date: 10/30/17 Status: Discontinued Levemir FlexTouch 100 units/mL subcutaneous solution 30 unit, SUB-Q, Bedtime, 0 Refill(s) Start Date: 10/29/17 Status: Ordered magnesium sulfate 1 gm, 100 mL, Route: IVPB, Drug form: INJ, PRN, Dosing Weight 46.364, kg, PRN Ab normal Lab Result, Start date: 10/29/17 21:33:00 CDT, Duration: 30 day, Stop chely e: 11/28/17 21:32:00 CDT Notes: WASTE: F/P - Sink; E - Municipal Trash Bin Start Date: 10/29/17 Stop Date: 10/30/17 Status: Discontinued methimazole 30 mg, Route: PO, ONCE, Dosing Weight 46.364, kg, Start date: 10/29/17 20:57:00 CDT, Stop date: 10/29/17 20:57:00 CDT Start Date: 10/29/17 Stop Date: 10/29/17 Status: Discontinued morphine Sulfate 4 mg, Route: IVP, ONCE, Dosing Weight 46.364, kg, Priority: STAT, Start date: 21:27:00 CDT, Stop date: 10/29/17 21:27:00 CDT Start Date: 10/29/17 Stop Date: 10/29/17 Status: Completed NovoLOG FlexTouch 100 units/mL subcutaneous solution 15 unit, SUB-Q, TID-Before Meals, 0 Refill(s) Start Date: 10/29/17 Status: Ordered potassium chloride 10 mEq, 100 mL, Route: IVPB, Drug form: INJ, PRN, Dosing Weight 46.364, kg, PRN Abnormal Lab Result, Via peripheral line, Start date: 10/29/17 21:33:00 CDT, Dur ation: 30 day, Stop date: 11/28/17 21:32:00 CDT Notes: Infuse at a rate of 10 mEq/hr.(Same as: KCL) Start Date: 10/29/17 Stop Date: 10/30/17 Status: Discontinued potassium chloride + Sodium Chloride 0.9% IV 90 mL 20 mEq, 10 mL, Route: IVPB, PRN, Dosing Weight 46.364, kg, PRN Abnormal Lab Resu lt, Via central line, Start date: 10/29/17 21:33:00 CDT, Duration: 30 day, Stop date: 11/28/17 21:32:00 CDT Notes: MUST be Diluted before use(Same as: KCl) MEDICATION WASTE Product Size: 40 mEqProduct Wasted: ___ mEq Start Date: 10/29/17 Stop Date: 10/30/17 Status: Discontinued potassium phosphate + Sodium Chloride 0.9% IV 250 mL 15 mmol, 5 mL, Route: IVPB, PRN, Dosing Weight 46.364, kg, PRN Abnormal Lab Resu lt, Start date: 10/29/17 21:33:00 CDT, Duration: 30 day, Stop date: 11/28/17 21: 32:00 CDT Notes: (Same as: K Phosphate.) 1 mMol phoshate has 1.47 mEq potassium Infuse o chriss 4 hours Start Date: 10/29/17 Stop Date: 10/30/17 Status: Discontinued potassium phosphate + Sodium Chloride 0.9% IV 250 mL 30 mmol, 10 mL, Route: IVPB, PRN, Dosing Weight 46.364, kg, PRN Abnormal Lab Res ult, Start date: 10/29/17 21:33:00 CDT, Duration: 30 day, Stop date: 11/28/17 21 :32:00 CDT Notes: (Same as: K Phosphate.) 1 mMol phoshate has 1.47 mEq potassium Infuse o chriss 4 hours Start Date: 10/29/17 Stop Date: 10/30/17 Status: Discontinued propranolol 20 mg oral tablet 20 mg=1 tab, PO, BID, 0 Refill(s) Start Date: 10/29/17 Status: Ordered Saline Flush 0.9% 10 mL, Route: IVP, Drug Form: INJ, Dosing Weight 46.364, kg, PRN, PRN Line Flush , Start date: 10/29/17 20:14:00 CDT, Duration: 30 day, Stop date: 11/28/17 20:13 :00 CDT Notes: (Same as: BD Posiflush) Start Date: 10/29/17 Stop Date: 10/30/17 Status: Discontinued Sodium Chloride 0.9% (Bolus) IV 1,000 mL, 1,000 ml/hr, Infuse Over: 1 hr, Route: IV, ONCE, Priority: STAT Dosin g Weight 46.364 kg, Start date: 10/29/17 21:27:00 CDT, Stop date: 10/29/17 21:27 :00 CDT Start Date: 10/29/17 Stop Date: 10/29/17 Status: Completed Sodium Chloride 0.9% (Bolus) IV 1,000 mL, 1,000 ml/hr, Infuse Over: 1 hr, Route: IV, ONCE, Priority: STAT Dosin g Weight 46.364 kg, Start date: 10/29/17 21:16:00 CDT, Stop date: 10/29/17 21:16 :00 CDT Start Date: 10/29/17 Stop Date: 10/29/17 Status: Completed Sodium Chloride 0.9% IV 1,000 mL 1,000 mL, Rate: 250 ml/hr, Infuse over: 4 hr, Route: IV, Dosing Weight 46.364 kg , Total Volume: 1,000, When Finger stick blood glucose values remain ABOVE 250 m g/dL administer until BG is less than 250 mg/dL., Start date: 10/29/17 21:33:00 CDT, Durati... Start Date: 10/29/17 Stop Date: 10/30/17 Status: Discontinued Zofran 4 mg, Route: IVP, Drug form: INJ, ONCE, Dosing Weight 46.364, kg, Priority: STAT , Start date: 10/29/17 21:27:00 CDT, Stop date: 10/29/17 21:27:00 CDT Start Date: 10/29/17 Stop Date: 10/29/17 Status: Completed Results BLOOD BANK RESULTS Most recent to 1 oldest [Reference Range]: ABO/Rh O POS *Unknown* (10/29/17 8:49 PM) Antibody Scrn Negative (10/29/17 8:49 PM) ELECTROLYTES Most recent to 1 oldest [Reference Range]: Sodium Lvl [135-145 118 mEq/L mEq/L] *CRIT* (10/29/17 8:49 PM) Potassium Lvl 5.2 mEq/L [3.5-5.1 mEq/L] *HI* (10/29/17 8:49 PM) Chloride Lvl [95-109 85 mEq/L mEq/L] *LOW* (10/29/17 8:49 PM) CO2 [24-32 mEq/L] 17 mEq/L *LOW* (10/29/17 8:49 PM) AGAP [10.0-20.0 21.2 mEq/L mEq/L] *HI* (10/29/17 8:49 PM) CHEM PANEL Most recent to 1 oldest [Reference Range]: Creatinine Lvl 0.80 mg/dL [0.50-1.40 mg/dL] (10/29/17 8:49 PM) eGFR 91 mL/min/1.73m2 1 *NA* (10/29/17 8:49 PM) BUN [7-22 mg/dL] 31 mg/dL *HI* (10/29/17 8:49 PM) B/C Ratio [6-25] 39 *HI* (10/29/17 8:49 PM) Glucose Lvl [70-99 470 mg/dL 2 mg/dL] *CRIT* (10/29/17 8:49 PM) Total Protein 9.6 g/dL [6.4-8.4 g/dL] *HI* (10/29/17 8:49 PM) Albumin Lvl [3.5-5.0 2.8 g/dL g/dL] *LOW* (10/29/17 8:49 PM) Globulin [2.7-4.2 6.8 g/dL g/dL] *HI* (10/29/17 8:49 PM) A/G Ratio [0.7-1.6] 0.4 *LOW* (10/29/17 8:49 PM) Calcium Lvl 8.3 mg/dL [8.5-10.5 mg/dL] *LOW* (10/29/17 8:49 PM) ALT [0-65 unit/L] 34 unit/L (10/29/17 8:49 PM) AST [0-37 unit/L] 65 unit/L *HI* (10/29/17 8:49 PM) Alk Phos [39-136 199 unit/L unit/L] *HI* (10/29/17 8:49 PM) Bili Total [0.2-1.3 0.9 mg/dL mg/dL] (10/29/17 8:49 PM) Lipase Lvl [73-393 294 unit/L unit/L] (10/29/17 8:49 PM) Ketone Quantitative 4.92 mmol/L [<=0.27 mmol/L] *HI* (10/29/17 8:49 PM) Lactic Acid Lvl 3.8 mMol/L [0.5-2.2 mMol/L] *HI* (10/29/17 8:49 PM) 1Result Comment: The eGFR is calculated using [...] tiplied by the estimated BMI. 2Result Comment: Critical Result(s) called Jossy Matamoros at 10/29/2017 21:26 by evelyn. Read back OK. CARDIAC ENZYMES Most recent to 1 oldest [Reference Range]: Total CK [12-191 57 unit/L unit/L] (10/29/17 8:49 PM) CK MB [0.5-3.6 1.4 ng/mL ng/mL] (10/29/17 8:49 PM) CK MB Index 2.5 [0.0-2.5] (10/29/17 8:49 PM) Troponin-I <0.02 ng/mL [0.00-0.40 ng/mL] (10/29/17 8:49 PM) ENDOCRINOLOGY Most recent to 1 oldest [Reference Range]: S Preg [Negative] Negative *NA* (10/29/17 8:49 PM) URINE AND STOOL Most recent to 1 oldest [Reference Range]: UA Turbidity [Clear] Marked *ABN* (10/29/17 11:06 PM) UA Color Ltyellow *NA* (10/29/17 11:06 PM) UA pH [5.0-8.0] 6.0 (10/29/17 11:06 PM) UA Spec Grav 1.005 [<=1.030] (10/29/17 11:06 PM) UA Glucose [Negative 500 mg/dL mg/dL] *ABN* (10/29/17 11:06 PM) UA Blood [Negative] Large *ABN* (10/29/17 11:06 PM) UA Ketones [Negative Trace mg/dL mg/dL] *ABN* (10/29/17 11:06 PM) UA Protein [Negative Negative mg/dL mg/dL] (10/29/17 11:06 PM) UA Urobilinogen <=1.0 mg/dL [0.1-1.0 mg/dL] *NA* (10/29/17 11:06 PM) UA Bili [Negative] Negative *NA* (10/29/17 11:06 PM) UA Leuk Est Large [Negative] *ABN* (10/29/17 11:06 PM) UA Nitrite Negative [Negative] (10/29/17 11:06 PM) UA WBC [0-5 /HPF] >182 /HPF *HI* (10/29/17 11:06 PM) UA RBC [0-2 /HPF] 11 /HPF *HI* (10/29/17 11:06 PM) UA Bacteria [None Occasional /HPF Seen /HPF] *NA* (10/29/17 11:06 PM) UA Sq Epi [Few /LPF] Occasional /LPF *NA* (10/29/17 11:06 PM) UA Mucus [None Seen Few /LPF /LPF] *NA* (10/29/17 11:06 PM) UA [place] Yeast [None Few /HPF Seen /HPF] *ABN* (10/29/17 11:06 PM) UA Hyph Yeast [None Occasional Seen] *ABN* (10/29/17 11:06 PM) HEMATOLOGY Most recent to 1 oldest [Reference Range]: WBC [3.7-10.4 K/CMM] 7.6 K/CMM (10/29/17 8:49 PM) RBC [4.20-5.40 5.75 M/CMM M/CMM] *HI* (10/29/17 8:49 PM) Hgb [12.0-16.0 g/dL] 14.3 g/dL (10/29/17 8:49 PM) Hct [36.0-48.0 %] 43.6 % (10/29/17 8:49 PM) MCV [80.0-98.0 fL] 75.8 fL *LOW* (10/29/17 8:49 PM) MCH [27.0-31.0 pg] 24.8 pg *LOW* (10/29/17 8:49 PM) MCHC [32.0-36.0 32.7 g/dL g/dL] (10/29/17 8:49 PM) RDW [11.5-14.5 %] 23.5 % *HI* (10/29/17 8:49 PM) MPV [7.4-10.4 fL] 11.7 fL *HI* (10/29/17 8:49 PM) Platelet [133-450 251 K/CMM K/CMM] (10/29/17 8:49 PM) Segs [45.0-75.0 %] 63.8 % (10/29/17 8:49 PM) Lymphocytes 22.8 % [20.0-40.0 %] (10/29/17 8:49 PM) Monocytes [2.0-12.0 13.2 % %] *HI* (10/29/17 8:49 PM) Eosinophils [0.0-4.0 0.1 % %] (10/29/17 8:49 PM) Basophils [0.0-1.0 0.1 % %] (10/29/17 8:49 PM) Segs-Bands # 4.9 K/CMM [1.5-8.1 K/CMM] (10/29/17 8:49 PM) Lymphocytes # 1.7 K/CMM [1.0-5.5 K/CMM] (10/29/17 8:49 PM) Monocytes # [0.0-0.8 1.0 K/CMM K/CMM] *HI* (10/29/17 8:49 PM) Anisocyte [None 1+ Seen] *ABN* (10/29/17 8:49 PM) Microcyte [None 1+ Seen] *ABN* (10/29/17 8:49 PM) Plt Morph Normal (10/29/17 8:49 PM) PT [12.0-14.7 15.8 seconds seconds] *HI* (10/29/17 8:49 PM) INR [0.85-1.17] 1.25 *HI* (10/29/17 8:49 PM) PTT [22.9-35.8 28.6 seconds seconds] (10/29/17 8:49 PM) Microbiology Reports TEST: Culture: Urine STATUS: Auth (Verified) BODY SITE: SOURCE: Urine, Clean Catch COLLECTED DATE/TIME: 10/29/17 11:06 PM FINAL REPORT 10,000 - 50,000 CFU/mL Enterococcus Species 50,000 - 100,000 CFU/mL Gram Negative Rods, Lactose Fermenters <10,000 CFU/mL Gram Negative Rods, Non-Lactose Fermenters Specimen contains 3 or more potential pathogens; recommend correlation with urinalysis; if catheterized specimen recommend removal and recollection. If clinical situation warrants please call the laboratory for further testing. [place] [facility] [phone]. Immunizations Not Given Vaccine Date Status Refusal [...]
--- OUTSIDE RECORDS SUMMARY | 2019-02-11 16:44 | XMS REPORT | Summary of Care ---
Author Author [facility] Outpatient Imaging [facility] Out[facility] [place] [employer] Address Unknown Phone Unavailable Encounter CRISTIANE Lindo(JOSEPH) [id number] Date(s): 09/04/18 - 09/04/18 [facility] Out[facility] [place] [employer] [address] [facility] [address] [place], [place] [address]- [phone] Discharge Disposition: Home or Self Care Attending Physician: Nya Mancilla MD Referring Physician: Nya Mancilla MD Vital Signs No data available for this section Problem List Condition Effective Dates Status Health [...] Active 1tolerated Cefepime during 08/23/16 admission at [facility] for several doses as per MD and as documented in e-MAR Medications No data available for this section Results No data available for this section Immunizations Not Given Vaccine Date Status Refusal [...]
--- OUTSIDE RECORDS SUMMARY | 2019-02-11 16:45 | XMS REPORT | Summary of Care ---
Author Author [facility] Organization [facility] Address Unknown Phone Unavailable Encounter CRISTIANE Lindo(JOSEPH) [id number] Date(s): 06/15/16 - 07/05/16 [facility] [address] [place] [address]- Discharge Disposition: Intermediate Care Attending Physician: Tim Edmonds DO Admitting Physician: Tim Edmonds DO Vital Signs 1 2 3 Most recent to oldest [Reference Range]: 154.94 cm (06/16/16 4:09 AM) 160.02 cm (06/15/16 9:14 PM) Height 64.545 kg (07/05/16 6:23 AM) 63.636 kg (07/04/16 6:00 AM) 60.227 kg (07/03/16 4:04 AM) Current Weight 98.0 DegF (07/05/16 4:00 PM) 98.2 DegF (07/05/16 11:39 AM) 98.7 DegF (07/05/16 7:51 AM) Temperature Oral [96.4-99.1 DegF] 114/72 mmHg (07/05/16 4:00 PM) 109/72 mmHg (07/05/16 11:39 AM) 100/60 mmHg (07/05/16 7:51 AM) Blood Pressure [90-140/60-90 mmHg] 18 BRMIN (07/05/16 4:00 PM) 18 BRMIN (07/05/16 11:39 AM) 18 BRMIN (07/05/16 7:51 AM) Respiratory Rate [14-20 BRMIN] 92 bpm (07/05/16 4:00 PM) 100 bpm (07/05/16 11:39 AM) 73 bpm (07/05/16 7:51 AM) Peripheral Pulse Rate [60-100 bpm] 49.5 kg (06/16/16 4:09 AM) 51.364 kg (06/15/16 9:14 PM) Weight 20.62 m2 (06/16/16 4:09 AM) 20.06 m2 (06/15/16 9:14 PM) Body Mass Index Problem List Condition Effective Dates Status Health Status Informant Diabetes(Confirmed) Resolved Gallbladder Resolved disease(Confirmed) Goiter(Confirmed) Resolved Heartburn(Confirmed) Resolved Allergies, Adverse Reactions, Alerts Substance Reaction Severity Status ciprofloxacin Active NKDA Active Medications acetaminophen 650 mg, 2 tab, Route: PO, Drug form: TAB, Q4H, Dosing Weight 51.364, kg, PRN For Temp > 100.4 F, Start date: 06/16/16 0:32:00 TRUCK BODY 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ICE, Duration: 30 day, Stop date: 07/16/16 0:31:00 TRUCK BODY 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ICE Notes: Do not exceed 4 gm/day. (Same as: Tylenol) Start Date: 06/16/16 Stop Date: 07/03/16 Status: Discontinued acetaminophen 325 mg oral tablet 650 mg=2 tab, PO, Q6H, PRN Pain 1-3/Temp > 100.4 F, 0 Refill(s) Start Date: 07/05/16 Status: Suspended albumin human 25% intravenous solution 25 gm, 100 mL, Route: IVPB, Drug form: INJ, ONCE, Dosing Weight 49.5, kg, Start date: 07/04/16 16:00:00 TRUCK BODY 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ICE, Stop date: 07/04/16 16:00:00 TRUCK BODY 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ICE Notes: Lot #: Mfg: (Same as: Plasbumin-25)"blood pr oduct derivative"WASTE: F/P - Red; E -Red MEDICATION WASTE Product Size: 25 gmProduct Wasted: ___ gm Start Date: 07/04/16 Stop Date: 07/04/16 Status: Completed albumin human 25% intravenous solution 12.5 gm, 50 mL, Route: IVPB, Drug form: INJ, Q6H, Dosing Weight 49.5, kg, Start date: 07/05/16 18:00:00 TRUCK BODY 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ICE, Duration: 4 doses or times, Stop date: 07/06/16 12: 00:00 TRUCK BODY 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ICE Notes: LOT#: Mfg: WASTE: F/P - Red; E -Red (Same a s: Albuminar)"blood product derivative" Start Date: 07/05/16 Stop Date: 07/05/16 Status: Canceled albumin human 25% intravenous solution 12.5 gm=50 mL, IVPB, Q6H, 0 Refill(s) Start Date: 07/05/16 Status: Suspended atropine 0.5 mg, 5 mL, Route: IVP, Drug form: INJ, PRN, Dosing Weight 49.5, kg, PRN Randell cardia, Start date: 06/28/16 23:44:00 TRUCK BODY 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ICE, Duration: 30 day, Stop date: 07/28/16 23:43:00 TRUCK BODY 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ICE, symtaomaticbradycardia heart rate less than 40 Start Date: 06/28/16 Stop Date: 07/05/16 Status: Discontinued Bumex 1 mg, 4 mL, Route: IVP, Drug form: INJ, ONCE, Dosing Weight 49.5, kg, Start date : 06/26/16 15:01:00 TRUCK BODY 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ICE, Stop date: 06/26/16 15:01:00 TRUCK BODY 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ICE Notes: (Same As: Bumex) Start Date: 06/26/16 Stop Date: 06/26/16 Status: Completed calcium carbonate 500 mg, 1 tab, Route: PO, Drug form: CHEWTAB, TID, Dosing Weight 49.5, kg, Start date: 06/25/16 9:00:00 TRUCK BODY 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ICE, Duration: 30 day, Stop date: 07/24/16 17:00:00 TRUCK BODY 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ICE Notes: (Same As: Tums)Calcium Carbonate 500 op=535 mg elemental calcium Dose=_ mg calcium carbonate ( mg elemental calcium) Start Date: 06/25/16 Stop Date: 06/29/16 Status: Discontinued calcium carbonate 500 mg, 1 tab, Route: CHEW, Drug form: CHEWTAB, ONCE, Dosing Weight 49.5, kg, St art date: 06/29/16 6:15:00 TRUCK BODY 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ICE, Stop date: 06/29/16 6:15:00 TRUCK BODY 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ICE Notes: (Same As: Yungs)Calcium Carbonate 500 dx=631 mg elemental calcium Dose=_ mg calcium carbonate ( mg elemental calcium) Start Date: 06/29/16 Stop Date: 06/29/16 Status: Completed calcium carbonate 1,000 mg, Route: CHEW, Drug form: CHEWTAB, Bedtime, Dosing Weight 49.5, Start da te: 06/29/16 21:00:00 TRUCK BODY 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ICE, Duration: 30 day, Stop date: 07/28/16 21:00:00 TRUCK BODY 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ICE Notes: (Same As: Yungs)Calcium Carbonate 500 he=316 mg elemental calcium Dose=_ mg calcium carbonate ( mg elemental calcium) Start Date: 06/29/16 Stop Date: 07/05/16 Status: Discontinued calcium carbonate 1,000 mg, 2 tab, Route: CHEW, Drug form: CHEWTAB, TID, Dosing Weight 49.5, Start date: 07/05/16 22:00:00 TRUCK BODY 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ICE, Duration: 30 day, Stop date: 08/04/16 14:00:00 TRUCK BODY 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ICE Notes: (Same As: Yungs)Calcium Carbonate 500 wz=062 mg elemental calcium Dose=_ mg calcium carbonate ( mg elemental calcium) Start Date: 07/05/16 Stop Date: 07/05/16 Status: Canceled calcium carbonate 500 mg, 1 tab, Route: PO, Drug form: CHEWTAB, BID, Dosing Weight 49.5, kg, Start date: 06/29/16 9:00:00 TRUCK BODY 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ICE, Duration: 30 day, Stop date: 07/28/16 18:00:00 TRUCK BODY 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ICE Notes: (Same As: Yungs)Calcium Carbonate 500 fs=349 mg elemental calcium Dose=_ mg calcium carbonate ( mg elemental calcium) Start Date: 06/29/16 Stop Date: 07/05/16 Status: Discontinued calcium carbonate 500 mg (200 mg elemental calcium) oral tablet 1,000 mg, 2 tab, Route: PO, Drug form: CHEWTAB, PRN, Dosing Weight 49.5, kg, PRN Abnormal Lab Result, FOR ICU USE ONLY, Start date: 06/17/16 4:16:00 TRUCK BODY 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ICE, Durati on: 30 day, Stop date: 07/17/16 4:15:00 TRUCK BODY 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ICE Notes: (Same As: Yungs)Calcium Carbonate 500 vc=688 mg elemental calcium Dose=_ mg calcium carbonate ( mg elemental calcium) Start Date: 06/17/16 Stop Date: 06/17/16 Status: Discontinued calcium carbonate 500 mg (200 mg elemental calcium) oral tablet 500 mg, 1 tab, Route: PO, Drug form: CHEWTAB, PRN, Dosing Weight 49.5, kg, PRN A bnormal Lab Result, FOR ICU USE ONLY, Start date: 06/17/16 4:16:00 TRUCK BODY 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ICE, Duration : 30 day, Stop date: 07/17/16 4:15:00 TRUCK BODY 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ICE Notes: (Same As: Yungs)Calcium Carbonate 500 wu=744 mg elemental calcium Dose=_ mg calcium carbonate ( mg elemental calcium) Start Date: 06/17/16 Stop Date: 06/17/16 Status: Discontinued calcium carbonate 500 mg (200 mg elemental calcium) oral tablet 1,000 mg=2 tab, CHEW, TID, 0 Refill(s) Start Date: 07/05/16 Status: Suspended calcium gluconate + sodium chloride 0.9% INJ 100 mL 2,000 mg, 20 mL, Route: IVPB, ONCE, Dosing Weight 49.5, kg, Start date: 06/27/16 9:09:00 TRUCK BODY 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ICE, Stop date: 06/27/16 9:09:00 TRUCK BODY 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ICE Notes: WASTE: F/P - Sink; E - Municipal Trash Bin Start Date: 06/27/16 Stop Date: 06/27/16 Status: Completed calcium gluconate + sodium chloride 0.9% INJ 100 mL 2,000 mg, 20 mL, Route: IVPB, ONCE, Dosing Weight 49.5, kg, Start date: 07/05/16 6:41:00 TRUCK BODY 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ICE, Stop date: 07/05/16 6:41:00 TRUCK BODY 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ICE Notes: WASTE: F/P - Sink; E - Municipal Trash Bin Start Date: 07/05/16 Stop Date: 07/05/16 Status: Completed calcium gluconate + sodium chloride 0.9% INJ 100 mL 2,000 mg, 20 mL, Route: IVPB, ONCE, Dosing Weight 49.5, kg, Start date: 06/26/16 13:08:00 TRUCK BODY 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ICE, Stop date: 06/26/16 13:08:00 TRUCK BODY 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ICE Notes: WASTE: F/P - Sink; E - Municipal Trash Bin Start Date: 06/26/16 Stop Date: 06/26/16 Status: Completed calcium gluconate + sodium chloride 0.9% INJ 100 mL 2,000 mg, 20 mL, Route: IVPB, ONCE, Dosing Weight 49.5, kg, Start date: 06/21/16 7:59:00 TRUCK BODY 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ICE, Stop date: 06/21/16 7:59:00 TRUCK BODY 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ICE Notes: WASTE: F/P - Sink; E - Municipal Trash Bin Start Date: 06/21/16 Stop Date: 06/21/16 Status: Completed calcium gluconate + sodium chloride 0.9% INJ 100 mL 2,000 mg, 20 mL, Route: IVPB, ONCE, Dosing Weight 49.5, kg, Start date: 06/22/16 7:06:00 TRUCK BODY 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ICE, Stop date: 06/22/16 7:06:00 TRUCK BODY 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ICE Notes: WASTE: F/P - Sink; E - Municipal Trash Bin Start Date: 06/22/16 Stop Date: 06/22/16 Status: Completed calcium gluconate + sodium chloride 0.9% INJ 50 mL 1 gm, 10 mL, Route: IVPB, PRN, Dosing Weight 49.5, kg, PRN Abnormal Lab Result, Start date: 06/17/16 4:16:00 TRUCK BODY 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ICE, Duration: 30 day, Stop date: 07/17/16 4:15:00 TRUCK BODY 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ICE, FOR ICU USE ONLY Notes: WASTE: F/P - Sink; E - Municipal Trash Bin Start Date: 06/17/16 Stop Date: 06/17/16 Status: Discontinued calcium gluconate + sodium chloride 0.9% INJ 50 mL 1,000 mg, 10 mL, Route: IVPB, ONCE, Dosing Weight 49.5, kg, Start date: 06/25/16 12:30:00 TRUCK BODY 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ICE, Stop date: 06/25/16 12:30:00 TRUCK BODY 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ICE Notes: WASTE: F/P - Sink; E - Municipal Trash Bin Start Date: 06/25/16 Stop Date: 06/25/16 Status: Completed calcium gluconate + sodium chloride 0.9% INJ 50 mL 1,000 mg, 10 mL, Route: IVPB, ONCE, Dosing Weight 49.5, kg, Start date: 06/19/16 12:23:00 TRUCK BODY 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ICE, Stop date: 06/19/16 12:23:00 TRUCK BODY 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ICE Notes: WASTE: F/P - Sink; E - Municipal Trash Bin Start Date: 06/19/16 Stop Date: 06/19/16 Status: Completed cholestyramine 4 gm=1 pkt, PO, Daily, 0 Refill(s) Start Date: 07/05/16 Status: Suspended cholestyramine 4 gm, 1 pkt, Route: PO, Drug form: PDR/REC, Daily, Dosing Weight 49.5, kg, Start date: 06/25/16 9:00:00 TRUCK BODY 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ICE, Duration: 30 day, Stop date: 07/24/16 9:00:00 TRUCK BODY 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ICE Notes: (Same As: Marc) Start Date: 06/25/16 Stop Date: 07/05/16 Status: Discontinued Creon 24,000 units oral delayed release capsule 2 cap, Route: PO, Drug Form: DRC, Dosing Weight 49.5, kg, TID-Before Meals, Star t date: 06/25/16 8:35:00 TRUCK BODY 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ICE, Duration: 30 day, Stop date: 07/25/16 7:30:00 TRUCK BODY 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ICE Notes: Same as: Santiago BUSTILLOS 24 : lipase 24,000 units, protease 76,000 units, amyla se 120,000 units Start Date: 06/25/16 Stop Date: 07/05/16 Status: Discontinued Creon 24,000 units oral delayed release capsule 2 cap, PO, TID-Before Meals, 0 Refill(s) Start Date: 07/05/16 Status: Suspended Creon 24,000 units oral delayed release capsule 1 cap, Route: PO, Drug Form: DRC, Dosing Weight 49.5, kg, TID-Before Meals, Star t date: 06/19/16 16:30:00 TRUCK BODY 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ICE, Duration: 30 day, Stop date: 07/19/16 11:30:00 CS T Notes: Same as: Creon DRC 24 : lipase 24,000 units, protease 76,000 units, amyla se 120,000 units Start Date: 06/19/16 Stop Date: 06/25/16 Status: Discontinued Dextrose 50% Syringe 25 gm, 50 mL, Route: IVP, Drug Form: INJ, Dosing Weight 49.5, kg, PRN, PRN Blood Glucose Results, Start date: 06/17/16 14:24:00 TRUCK BODY 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ICE, Duration: 30 day, Stop date: 07/17/16 14:23:00 TRUCK BODY 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ICE Start Date: 06/17/16 Stop Date: 07/05/16 Status: Discontinued Dextrose 50% Syringe 12.5 gm, 25 mL, Route: IVP, Drug Form: INJ, Dosing Weight 49.5, kg, PRN, PRN Blo od Glucose Results, Start date: 06/17/16 14:24:00 TRUCK BODY 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ICE, Duration: 30 day, Stop da te: 07/17/16 14:23:00 TRUCK BODY 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ICE Start Date: 06/17/16 Stop Date: 07/05/16 Status: Discontinued Dilaudid 0.5 mg, Route: IVP, ONCE, Dosing Weight 51.364, kg, Priority: STAT, Start date: 06/15/16 21:39:00 TRUCK BODY 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ICE, Stop date: 06/15/16 21:39:00 TRUCK BODY 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ICE Start Date: 06/15/16 Stop Date: 06/15/16 Status: Completed Dilaudid 0.2 mg, 0.2 mL, Route: IV, Drug form: INJ, Q3H, Dosing Weight 49.5, kg, PRN Pain Score 4-6, Start date: 06/17/16 12:27:00 TRUCK BODY 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ICE, Duration: 30 day, Stop date: 06/29 12:26:00 TRUCK BODY 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ICE Start Date: 06/17/16 Stop Date: 07/02/16 Status: Discontinued Dilaudid 0.5 mg, 0.5 mL, Route: IV, Drug form: INJ, Q3H, Dosing Weight 49.5, kg, PRN Pain Score 6-10, Start date: 06/17/16 12:27:00 TRUCK BODY 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ICE, Duration: 30 day, Stop date: 12:26:00 TRUCK BODY 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ICE Start Date: 06/17/16 Stop Date: 07/05/16 Status: Discontinued Dilaudid 0.5 mg, 0.5 mL, Route: IVP, Drug form: INJ, ONCE, Dosing Weight 51.364, kg, Prio rity: STAT, Start date: 06/15/16 23:03:00 TRUCK BODY 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ICE, Stop date: 06/15/16 23:03:00 TRUCK BODY 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ICE Start Date: 06/15/16 Stop Date: 06/15/16 Status: Completed Dilaudid 0.5 mg, Route: IVP, ONCE, Dosing Weight 51.364, kg, Priority: STAT, Start date: 06/16/16 1:04:00 TRUCK BODY 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ICE, Stop date: 06/16/16 1:04:00 TRUCK BODY 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ICE Start Date: 06/16/16 Stop Date: 06/16/16 Status: Completed enoxaparin 40 mg, 0.4 mL, Route: SUB-Q, Drug form: INJ, [id number], Dosing Weight 51.364, kg, Start date: 06/16/16 2:00:00 TRUCK BODY 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ICE, Duration: 30 day, Stop date: 07/15/16 2:00:00 TRUCK BODY 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ICE Notes: (Same as: Lovenox) Start Date: 06/16/16 Stop Date: 07/05/16 Status: Discontinued enoxaparin 40 mg=0.4 mL, SUB-Q, [id number], 0 Refill(s) Start Date: 07/05/16 Status: Suspended fat emulsion, intravenous 250 mL IV, 31.25 ml/hr, Start date: 07/05/16 22:00:00 TRUCK BODY 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ICE, Duration: 8, 250 ml, 49.5 Notes: (Same as: Intralipid, Liposyn)Infuse through a 1.2 micron filter Start Date: 07/05/16 Stop Date: 07/05/16 Status: Canceled fat emulsion, intravenous 250 mL IV, 31.25 ml/hr, Start date: 07/04/16 22:00:00 TRUCK BODY 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ICE, Duration: 8, 250 ml, 49.5 Notes: (Same as: Intralipid, Liposyn)Infuse through a 1.2 micron filter Start Date: 07/04/16 Stop Date: 07/05/16 Status: Completed fentaNYL (ANES) Route: IV, Drug form: INJ, ONCE, Stop date: 06/18/16 14:21:00 TRUCK BODY 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ICE Start Date: 06/18/16 Stop Date: 06/18/16 Status: Completed glucagon 1 mg, Route: IM, Drug form: PDR/INJ, PRN, Dosing Weight 49.5, kg, PRN Blood Gluc ose Results, Start date: 06/17/16 14:24:00 TRUCK BODY 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ICE, Duration: 30 day, Stop date: 14:23:00 TRUCK BODY 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ICE Start Date: 06/17/16 Stop Date: 07/05/16 Status: Discontinued hydrocortisone 100 mg, 2 mL, Route: IV, Drug form: PDR/INJ, ONCE, Dosing Weight 51.364, kg, Nicole ority: STAT, Start date: 06/15/16 21:43:00 TRUCK BODY 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ICE, Stop date: 06/15/16 21:43:00 TRUCK BODY 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ICE Notes: (Same as: Solu-CORTEF) Start Date: 06/15/16 Stop Date: 06/15/16 Status: Completed hydrocortisone 100 mg injection 100 mg, 2 mL, Route: IV, Drug form: PDR/INJ, Q6H, Dosing Weight 51.364, kg, Star t date: 06/16/16 6:00:00 TRUCK BODY 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ICE, Duration: 30 day, Stop date: 07/16/16 0:00:00 TRUCK BODY 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ICE Notes: (Same as: Solu-CORTEF) Start Date: 06/16/16 Stop Date: 06/17/16 Status: Discontinued hydrocortisone 100 mg injection 50 mg, 1 mL, Route: IV, Drug form: PDR/INJ, Q8H, Dosing Weight 51.364, kg, Start date: 06/17/16 16:00:00 TRUCK BODY 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ICE, Duration: 30 day, Stop date: 07/17/16 8:00:00 TRUCK BODY 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ICE Notes: (Same as: Solu-CORTEF) Start Date: 06/17/16 Stop Date: 06/25/16 Status: Discontinued hydromorphone 100 mg/100 mL-NaCl 0.9% intravenous solution 0.5 mg=0.5 mL, IV, Q3H, PRN Pain Score 6-10, 0 Refill(s) Start Date: 07/05/16 Status: Suspended insulin aspart 8 unit, 0.08 mL, Route: SUB-Q, Drug form: SOLN, Sliding Scale, Dosing Weight 49. 5, kg, PRN Blood Glucose Results, Start date: 06/17/16 14:24:00 TRUCK BODY 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ICE, Duration: 3 0 day, Stop date: 07/17/16 14:23:00 TRUCK BODY 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ICE Notes: Roll in palms of hands gently; Do not shake vigorously. (Same as: Mica Soto)"single patient use only"WASTE: F/P - Black; E - Municipal Trash Bin Stable f or 28 days at room temperature.Expires in days from Date Start Date: 06/17/16 Stop Date: 07/05/16 Status: Discontinued insulin aspart 6 unit, 0.06 mL, Route: SUB-Q, Drug form: SOLN, Sliding Scale, Dosing Weight 49. 5, kg, PRN Blood Glucose Results, Start date: 06/17/16 14:24:00 TRUCK BODY 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ICE, Duration: 3 0 day, Stop date: 07/17/16 14:23:00 TRUCK BODY 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ICE Notes: Roll in palms of hands gently; Do not shake vigorously. (Same as: Mica Soto)"single patient use only"WASTE: F/P - Black; E - Municipal Trash Bin Stable f or 28 days at room temperature.Expires in days from Date Start Date: 06/17/16 Stop Date: 07/05/16 Status: Discontinued insulin aspart 10 unit, 0.1 mL, Route: SUB-Q, Drug form: SOLN, Sliding Scale, Dosing Weight 49. 5, kg, PRN Blood Glucose Results, Start date: 06/17/16 14:24:00 TRUCK BODY 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ICE, Duration: 3 0 day, Stop date: 07/17/16 14:23:00 TRUCK BODY 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ICE Notes: Roll in palms of hands gently; Do not shake vigorously. (Same as: Mica Soto)"single patient use only"WASTE: F/P - Black; E - Municipal Trash Bin Stable f or 28 days at room temperature.Expires in days from Date Start Date: 06/17/16 Stop Date: 07/05/16 Status: Discontinued insulin aspart 2 unit, 0.02 mL, Route: SUB-Q, Drug form: SOLN, Sliding Scale, Dosing Weight 49. 5, kg, PRN Blood Glucose Results, Start date: 06/17/16 14:24:00 TRUCK BODY 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ICE, Duration: 3 0 day, Stop date: 07/17/16 14:23:00 TRUCK BODY 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ICE Notes: Roll in palms of hands gently; Do not shake vigorously. (Same as: NovoLO G)"single patient use only"WASTE: F/P - Black; E - Municipal Trash Bin Stable f or 28 days at room temperature.Expires in days from Date Start Date: 06/17/16 Stop Date: 07/05/16 Status: Discontinued insulin aspart 4 unit, 0.04 mL, Route: SUB-Q, Drug form: SOLN, Sliding Scale, Dosing Weight 49. 5, kg, PRN Blood Glucose Results, Start date: 06/17/16 14:24:00 TRUCK BODY 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ICE, Duration: 3 0 day, Stop date: 07/17/16 14:23:00 TRUCK BODY 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ICE Notes: Roll in palms of hands gently; Do not shake vigorously. (Same as: Mica G)"single patient use only"WASTE: F/P - Black; E - Municipal Trash Bin Stable f or 28 days at room temperature.Expires in days from Date Start Date: 06/17/16 Stop Date: 07/05/16 Status: Discontinued insulin detemir 100 units/mL subcutaneous solution 10 unit, SUB-Q, Bedtime, 0 Refill(s) Start Date: 07/05/16 Status: Suspended K-Dur 20 60 mEq, 3 tab, Route: PO, Drug form: ERTAB, Q2H, Start date: 06/20/16 8:00:00 CS T, Duration: 2 doses or times, Stop date: 06/20/16 10:00:00 TRUCK BODY 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ICE Notes: (Same as: K-Dur 20)"Do Not Crush" With food and full glass of water Start Date: 06/20/16 Stop Date: 06/20/16 Status: Completed Lactated Ringers Injection IV 1000 mL 1,000 mL, Rate: 25 ml/hr, Infuse over: 40 hr, Route: IV, Dosing Weight 49.5 kg, Total Volume: 1,000, Start date: 06/18/16 12:36:00 TRUCK BODY 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ICE, Duration: 30 day, Stop d ate: 07/18/16 12:35:00 TRUCK BODY 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ICE Start Date: 06/18/16 Stop Date: 06/18/16 Status: Discontinued Lasix 40 mg, 4 mL, Route: IV, Drug form: INJ, ONCE, Dosing Weight 49.5, kg, Start date : 07/04/16 17:00:00 TRUCK BODY 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ICE, Stop date: 07/04/16 17:00:00 TRUCK BODY 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ICE Notes: (Same as: Lasix) MEDICATION WASTE Product Size: 40 mgProduct Was nakul: ___ mg Start Date: 07/04/16 Stop Date: 07/04/16 Status: Completed Levemir 10 unit, 0.1 mL, Route: SUB-Q, Drug form: INJ, Bedtime, Dosing Weight 49.5, kg, Start date: 07/05/16 21:00:00 TRUCK BODY 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ICE, Duration: 30 day, Stop date: 08/03/16 21:00:0 0 TRUCK BODY 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ICE Notes: Same as LevemirDo not hold insulin without contacting prescriberWASTE: F/ P - Black; E - SOLO Trash Bin "single patient use only" Start Date: 07/05/16 Stop Date: 07/05/16 Status: Canceled Levsin SL 0.125 mg, 1 tab, Route: SL, Drug form: TAB, Q4H, Dosing Weight 49.5, kg, PRN Harley dder Spasm, Start date: 06/18/16 14:17:00 TRUCK BODY 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ICE, Duration: 30 day, Stop date: 06/29 08/13 14:16:00 TRUCK BODY 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ICE Notes: (Same as: Levsin) Take 30 min before meal Start Date: 06/18/16 Stop Date: 07/05/16 Status: Discontinued lidocaine (ANES) Route: IV, Drug form: INJ, ONCE, Stop date: 06/18/16 14:21:00 TRUCK BODY 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ICE Start Date: 06/18/16 Stop Date: 06/18/16 Status: Completed Lomotil oral tablet 1 tab, Route: PO, Drug Form: TAB, Dosing Weight 49.5, kg, Q6H, PRN as needed for loose stool, Start date: 06/20/16 21:23:00 TRUCK BODY 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ICE, Duration: 30 day, Stop date: 21:22:00 TRUCK BODY 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ICE Notes: (Same As: Lomotil) MAX Adult dose=8 tabs/day Start Date: 06/20/16 Stop Date: 06/24/16 Status: Discontinued LR 1000 mL INJ (ANES) Route: IV, Total Volume: 1,000, Start date: 06/18/16 13:30:00 TRUCK BODY 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ICE, Stop date: 14:30:00 TRUCK BODY 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ICE Start Date: 06/18/16 Stop Date: 06/18/16 Status: Completed magnesium oxide 400 mg, 1 tab, Route: PO, Drug form: TAB, TID, Dosing Weight 49.5, kg, Start chely e: 07/05/16 22:00:00 TRUCK BODY 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ICE, Duration: 30 day, Stop date: 08/04/16 14:00:00 TRUCK BODY 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ICE Notes: (Same as: Mag-Ox 400)Magnesium oxide [id number] elemental magnesiumDose= ____mg magnesium oxide (___mg elemental magnesium) Start Date: 07/05/16 Stop Date: 07/05/16 Status: Canceled magnesium oxide 800 mg, 2 tab, Route: PO, Drug form: TAB, PRN, Dosing Weight 49.5, kg, PRN Abnor mal Lab Result, FOR ICU USE ONLY, Start date: 06/17/16 4:16:00 TRUCK BODY 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ICE, Duration: 30 day, Stop date: 07/17/16 4:15:00 TRUCK BODY 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ICE Notes: (Same as: Mag-Ox 400)Magnesium oxide [id number] elemental magnesiumDose= ____mg magnesium oxide (___mg elemental magnesium) Start Date: 06/17/16 Stop Date: 06/17/16 Status: Discontinued magnesium oxide 400 mg, 1 tab, Route: PO, Drug form: TAB, BID, Dosing Weight 49.5, kg, Start chely e: 06/25/16 17:00:00 TRUCK BODY 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ICE, Duration: 30 day, Stop date: 07/25/16 9:00:00 TRUCK BODY 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ICE Notes: (Same as: Mag-Ox 400)Magnesium oxide [id number] elemental magnesiumDose= ____mg magnesium oxide (___mg elemental magnesium) Start Date: 06/25/16 Stop Date: 07/05/16 Status: Discontinued magnesium oxide 400 mg oral tablet 400 mg=1 tab, PO, TID, 0 Refill(s) Start Date: 07/05/16 Status: Suspended magnesium sulfate 6 gm, 150 mL, Route: IV, Drug form: INJ, ONCE, Dosing Weight 49.5, kg, Start chely e: 06/23/16 6:17:00 TRUCK BODY 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ICE, Stop date: 06/23/16 6:17:00 TRUCK BODY 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[employer] Notes: WASTE: F/P - Sink; E - [facility] Trash [facility] Start Date: 06/23/16 Stop Date: 06/23/16 Status: Completed magnesium sulfate 2 gm, 50 mL, Route: IVPB, Drug form: INJ, PRN, Dosing Weight 49.5, kg, PRN Abnor mal Lab Result, Start date: 06/17/16 4:16:00 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, Duration: 30 day, Stop date: 1 09/17/15 4:15:00 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[employer], FOR ICU USE ONLY Notes: WASTE: F/P - Sink; E - [facility] Trash [facility] Start Date: 06/17/16 Stop Date: 06/17/16 Status: Discontinued magnesium sulfate 2 gm, 50 mL, Route: IVPB, Drug form: INJ, Q2H, Dosing Weight 49.5, kg, Total dos e=4 gm, Start date: 06/17/16 5:00:00 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, Duration: 2 doses or times, Stop date: 06/17/16 7:00:00 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ICE Notes: WASTE: F/P - Sink; E - [facility] Trash [facility] Start Date: 06/17/16 Stop Date: 06/17/16 Status: Completed magnesium sulfate 1 gm, 100 mL, Route: IVPB, Drug form: INJ, ONCE, Dosing Weight 49.5, kg, Start d ate: 07/01/16 7:08:00 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, Stop date: 07/01/16 7:08:00 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 Notes: WASTE: F/P - Sink; E - [facility] Trash [facility] Start Date: 07/01/16 Stop Date: 07/01/16 Status: Completed magnesium sulfate 2 gm, 50 mL, Route: IVPB, Drug form: INJ, Q2H, Dosing Weight 49.5, kg, Total dos e=4 gm, Start date: 06/21/16 10:00:00 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, Duration: 2 doses or times, 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: WASTE: F/P - Sink; E - [facility] Trash Bin Start Date: 06/21/16 Stop Date: 06/21/16 Status: Completed magnesium sulfate 1 gm, 100 mL, Route: IVPB, Drug form: INJ, ONCE, Dosing Weight 49.5, kg, Start d ate: 06/18/16 6:12:00 TRUCK BODY 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ICE, Stop date: 06/18/16 6:12:00 TRUCK BODY 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ICE Notes: WASTE: F/P - Sink; E - [facility] Trash Bin Start Date: 06/18/16 Stop Date: 06/18/16 Status: Completed magnesium sulfate 2 gm, 50 mL, Route: IVPB, Drug form: INJ, ONCE, Dosing Weight 49.5, kg, Total do se=2 gm, Start date: 06/24/16 9:33:00 TRUCK BODY 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ICE, Duration: 1 doses or times, Stop date : 06/24/16 9:33:00 TRUCK BODY 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ICE Notes: WASTE: F/P - Sink; E - [facility] Trash Bin Start Date: 06/24/16 Stop Date: 06/24/16 Status: Completed magnesium sulfate 1 gm, 100 mL, Route: IVPB, Drug form: INJ, ONCE, Dosing Weight 49.5, kg, Start d ate: 06/18/16 16:20:00 TRUCK BODY 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ICE, Stop date: 06/18/16 16:20:00 TRUCK BODY 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ICE Notes: WASTE: F/P - Sink; E - [facility] Trash Bin Start Date: 06/18/16 Stop Date: 06/18/16 Status: Completed magnesium sulfate 2 gm, 50 mL, Route: IVPB, Drug form: INJ, Q2H, Dosing Weight 49.5, kg, Total dos e=4 gm, Start date: 06/20/16 12:00:00 TRUCK BODY 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ICE, Duration: 2 doses or times, Stop date : 06/20/16 14:00:00 TRUCK BODY 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ICE Notes: WASTE: F/P - Sink; E - [facility] Trash Bin Start Date: 06/20/16 Stop Date: 06/20/16 Status: Completed magnesium sulfate + sodium chloride 0.9% INJ 100 mL 3 gm, 6 mL, Route: IV, ONCE, Dosing Weight 49.5, kg, Start date: 06/26/16 13:08: 00 TRUCK BODY 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ICE, Stop date: 06/26/16 13:08:00 TRUCK BODY 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ICE Notes: (Same as: MgSO4)WASTE: F/P - Sink; E - [facility] Trash Bin MEDICATIO N WASTE Product Size: 1000 mgProduct Wasted: ___ mg Start Date: 06/26/16 Stop Date: 06/26/16 Status: Completed magnesium sulfate 2 gm in Water 50 ml 2 gm, 50 mL, Route: IV, Drug form: INJ, ONCE, Dosing Weight 49.5, kg, Start date : 06/25/16 11:54:00 TRUCK BODY 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ICE, Stop date: 06/25/16 11:54:00 TRUCK BODY 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ICE Notes: WASTE: F/P - Sink; E - [facility] Trash [facility] Start Date: 06/25/16 Stop Date: 06/25/16 Status: Completed magnesium sulfate 2gm / NS 50ml (premixed) 2 gm, 50 mL, Route: IVPB, Drug form: INJ, ONCE, Dosing Weight 49.5, kg, Start da te: 07/05/16 6:41:00 TRUCK BODY 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ICE, Duration: 2 hr, Stop date: 07/05/16 6:41:00 TRUCK BODY 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ICE Notes: WASTE: F/P - Sink; E - [facility] Trash Bin Start Date: 07/05/16 Stop Date: 07/05/16 Status: Completed methimazole 40 mg, 4 tab, Route: PO, Drug form: TAB, ONCE, Dosing Weight 51.364, kg, Priorit y: STAT, Start date: 06/15/16 21:43:00 TRUCK BODY 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ICE, Stop date: 06/15/16 21:43:00 TRUCK BODY 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ICE Start Date: 06/15/16 Stop Date: 06/15/16 Status: Completed methimazole 10 mg, PO, Q8H, 0 Refill(s) Start Date: 06/16/16 Status: Suspended methimazole 20 mg, 4 tab, Route: PO, Drug form: TAB, Q8H, Dosing Weight 51.364, kg, Start da te: 06/16/16 8:00:00 TRUCK BODY 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ICE, Stop date: 07/16/16 0:00:00 TRUCK BODY 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ICE Start Date: 06/16/16 Stop Date: 07/05/16 Status: Discontinued metoclopramide (ANES) Route: IV, Drug form: INJ, ONCE, Stop date: 06/18/16 14:21:00 TRUCK BODY 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ICE Start Date: 06/18/16 Stop Date: 06/18/16 Status: Completed metoprolol 5 mg/5 ml INJ 5 mg, 5 mL, Route: IVP, Drug form: INJ, Q6H, Dosing Weight 49.5, kg, PRN Other - See Comment, Start date: 06/22/16 16:01:00 TRUCK BODY 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ICE, Duration: 30 day, Stop date: 16:00:00 [employer] BODY 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ICE, Give only if unable to take po Notes: (Same as: Lopressor)Push over 2 minutes Start Date: 06/22/16 Stop Date: 07/03/16 Status: Discontinued metoprolol 5 mg/5 ml INJ 5 mg, 5 mL, Route: IV, Drug form: INJ, ONCE, Dosing Weight 51.364, kg, Start chely e: 06/16/16 1:33:00 TRUCK BODY 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ICE, Stop date: 06/16/16 1:33:00 TRUCK BODY 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ICE Notes: (Same as: Lopressor)Push over 2 minutes Start Date: 06/16/16 Stop Date: 06/16/16 Status: Completed metoprolol tartrate 25 mg, PO, BID, 0 Refill(s) Start Date: 06/16/16 Stop Date: 07/05/16 Status: Discontinued morphine Sulfate 4 mg, 2 mL, Route: IVP, Drug form: INJ, Q4H, Dosing Weight 51.364, kg, PRN Pain Score 7-10, Start date: 06/16/16 0:32:00 TRUCK BODY 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ICE, Duration: 30 day, Stop date: 07/16 0:31:00 TRUCK BODY 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ICE Notes: (Same as:MORPhine Sulfate) Start Date: 06/16/16 Stop Date: 06/17/16 Status: Discontinued nitroglycerin 0.4 mg sublingual tablet 0.4 mg, 1 tab, Route: SL, Drug form: TAB, Q5Min, Dosing Weight 49.5, kg, PRN Vidhya st Pain, Start date: 06/28/16 23:44:00 TRUCK BODY 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ICE, Duration: 30 day, Stop date: 6 23:43:00 TRUCK BODY 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ICE Notes: (Same as:Nitroquick, Nitrostat)"Do Not Crush" Sublingual tablet Start Date: 06/28/16 Stop Date: 07/05/16 Status: Discontinued Mascot 5/325 oral tablet 1 tab, Route: PO, Drug Form: TAB, Dosing Weight 49.5, kg, Q4H, PRN Pain Score 4- 6, Start date: 06/17/16 12:44:00 TRUCK BODY 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ICE, Duration: 30 day, Stop date: 07/17/16 12:4 3:00 TRUCK BODY 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ICE Notes: (Same as: Mascot 325/5) Do not exceed 4gm/day of acetaminophen. Start Date: 06/17/16 Stop Date: 07/02/16 Status: Discontinued NS (Bolus) IV 1,000 mL, 1,000 ml/hr, Infuse Over: 1 hr, Route: IV, 1,000, Drug form: INJ, ONCE , Priority: STAT, Dosing Weight 69.318 kg, Start date: 06/15/16 21:16:00 TRUCK BODY 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ICE, Du ration: 1 doses or times, Stop date: 06/15/16 21:16:00 TRUCK BODY 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ICE Start Date: 06/15/16 Stop Date: 06/15/16 Status: Completed NS + KCL 20mEq/L 1000ml (Premix) 1,000 mL 1,000 mL, Rate: 125 ml/hr, Infuse over: 8 hr, Route: IV, Dosing Weight 49.5 kg, Total Volume: 1,000, Start date: 06/17/16 14:24:00 TRUCK BODY 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ICE, Duration: 30 day, Stop d ate: 07/17/16 14:23:00 TRUCK BODY 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ICE Notes: PREMIX IV - Do Not AlterWASTE: F/P - Sink; E - Municipal Trash Bin Start Date: 06/17/16 Stop Date: 06/24/16 Status: Discontinued NS + KCL 40mEq/L 1000ml (Premix) 1,000 mL 1,000 mL, Rate: 125 ml/hr, Infuse over: 8 hr, Route: IV, Dosing Weight 51.364 kg , Total Volume: 1,000, Priority: STAT, Start date: 06/15/16 23:03:00 TRUCK BODY 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ICE, Durati on: 30 day, Stop date: 07/15/16 23:02:00 TRUCK BODY 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ICE Notes: PREMIX IV - Do Not AlterWASTE: F/P - Sink; E - Municipal Trash Bin Start Date: 06/15/16 Stop Date: 06/16/16 Status: Discontinued nystatin topical 100,000 units/g powder 1 appl, Route: TOP, PRN, Drug form: PWDR, PRN For Fungal Prophylaxis, Start date : 06/16/16 0:32:00 TRUCK BODY 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ICE, Duration: 30 day, Stop date: 07/16/16 0:31:00 TRUCK BODY 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ICE Notes: (Same as:Mycostatin, Nilstat) For external use only. Start Date: 06/16/16 Stop Date: 07/05/16 Status: Discontinued ondansetron 4 mg, 2 mL, Route: IVP, Drug form: INJ, Q8H, Dosing Weight 51.364, kg, PRN Nause a & Vomiting, Start date: 06/16/16 0:32:00 TRUCK BODY 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ICE, Duration: 30 day, Stop date: 07/16/16 0:31:00 TRUCK BODY 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ICE Notes: (Same as: Soteor) MEDICATION WASTE Product Size: 4 mgProduct Was nakul: ___ mg Start Date: 06/16/16 Stop Date: 07/05/16 Status: Discontinued ondansetron (ANES) Route: IV, Drug form: INJ, ONCE, Stop date: 06/18/16 14:21:00 TRUCK BODY 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ICE Start Date: 06/18/16 Stop Date: 06/18/16 Status: Completed oxyCODONE 5 mg oral tablet 5 mg=1 tab, PO, Q4H, PRN Pain Score 4-6, 0 Refill(s) Start Date: 07/05/16 Status: Suspended oxyCODONE 5 mg oral tablet 5 mg, 1 tab, Route: PO, Drug form: TAB, Q4H, Dosing Weight 49.5, kg, PRN Pain Sc ore 4-6, Start date: 07/04/16 8:46:00 TRUCK BODY 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ICE, Duration: 30 day, Stop date: 08/03/16 8:45:00 TRUCK BODY 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ICE Notes: (Same as: Roxicodone) Start Date: 07/04/16 Stop Date: 07/05/16 Status: Discontinued pantoprazole 40 mg, Route: IVP, Drug form: INJ, Daily, Dosing Weight 51.364, kg, Start date: 06/16/16 9:00:00 TRUCK BODY 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ICE, Duration: 30 day, Stop date: 07/15/16 9:00:00 TRUCK BODY 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ICE Notes: For IV push reconstitute with 10 ml 0.9% sodium chloride and push over 2 minutes. (Same as: Protonix) Start Date: 06/16/16 Stop Date: 06/20/16 Status: Discontinued pantoprazole 40 mg oral enteric coated tablet 40 mg=1 tab, PO, Before Dinner, 0 Refill(s) Start Date: 07/05/16 Status: Suspended Percocet 10/325 oral tablet 1 tab, Route: PO, Drug Form: TAB, Dosing Weight 49.5, kg, Q6H, PRN Pain Score 4- 6, Start date: 07/02/16 16:56:00 TRUCK BODY 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ICE, Duration: 30 day, Stop date: 08/01/16 16:5 5:00 TRUCK BODY 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ICE Start Date: 07/02/16 Stop Date: 07/02/16 Status: Deleted phenylephrine (ANES) Route: IV, Drug form: INJ, ONCE, Stop date: 06/18/16 14:21:00 TRUCK BODY 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ICE Start Date: 06/18/16 Stop Date: 06/18/16 Status: Completed PHOS-NaK 2 pkt, Route: PO, Drug Form: PDR/REC, Dosing Weight 49.5, kg, ONCE, Start date: 06/27/16 9:09:00 TRUCK BODY 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ICE, Stop date: 06/27/16 9:09:00 TRUCK BODY 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ICE Notes: (Same as: Phos-NaK) Each 1.5 gm pkt has 250mg phosphorous. Mix w/2.5oz w ater and stir. Start Date: 06/27/16 Stop Date: 06/27/16 Status: Completed pneumococcal 23-valent vaccine 0.5 mL, Route: IM, Drug Form: INJ, Daily, Start date: 06/19/16 9:00:00 TRUCK BODY 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ICE, Dura tion: 1 doses or times, Stop date: 06/19/16 9:00:00 TRUCK BODY 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ICE Notes: (Same as: Pneumovax 23) Refrigerate Start Date: 06/19/16 Stop Date: 06/19/16 Status: Completed potassium chloride 40 mEq, 2 tab, Route: PO, Drug form: ERTAB, ONCE, Dosing Weight 49.5, kg, Start date: 06/22/16 18:00:00 TRUCK BODY 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ICE, Stop date: 06/22/16 18:00:00 TRUCK BODY 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ICE Notes: (Same as: K-Dur 20)"Do Not Crush" With food and full glass of water Start Date: 06/22/16 Stop Date: 06/22/16 Status: Completed potassium chloride 10 mEq, 100 mL, Route: IVPB, Drug form: INJ, Q1H, Dosing Weight 51.364, kg, Tota l dose=40 mEq, Start date: 06/16/16 4:00:00 TRUCK BODY 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ICE, Duration: 4 doses or times, Sto p date: 06/16/16 7:00:00 TRUCK BODY 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ICE, Central Line Notes: Infuse at a rate of 10 mEq/hr.(Same as: KCL) Start Date: 06/16/16 Stop Date: 06/16/16 Status: Completed potassium chloride 40 mEq, 30 mL, Route: PO, Drug form: LIQ, ONCE, Dosing Weight 49.5, kg, Start da te: 06/21/16 7:59:00 TRUCK BODY 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ICE, Stop date: 06/21/16 7:59:00 TRUCK BODY 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ICE Notes: (Same as: Potassium Chloride) Start Date: 06/21/16 Stop Date: 06/21/16 Status: Completed potassium chloride 10 mEq, 100 mL, Route: IVPB, Drug form: INJ, Q1H, Dosing Weight 49.5, kg, Total Dose=40 meq, Start date: 06/22/16 11:00:00 TRUCK BODY 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ICE, Duration: 4 doses or times, Stop date: 06/22/16 14:00:00 TRUCK BODY 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ICE, Peripheral Line Notes: Infuse at a rate of 10 mEq/hr.(Same as: KCL) Start Date: 06/22/16 Stop Date: 06/22/16 Status: Completed potassium chloride 40 mEq, Route: PO, TID, Dosing Weight 49.5, kg, Start date: 06/22/16 13:00:00 CS T, Duration: 30 day, Stop date: 07/22/16 9:00:00 TRUCK BODY 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ICE Start Date: 06/22/16 Stop Date: 06/22/16 Status: Deleted potassium chloride 10 mEq, 100 mL, Route: IVPB, Drug form: INJ, Q1H, Start date: 07/05/16 13:00:00 TRUCK BODY 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ICE, Duration: 4 doses or times, Stop date: 07/05/16 16:00:00 TRUCK BODY 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ICE Notes: Infuse at a rate of 10 mEq/hr.(Same as: KCL) Start Date: 07/05/16 Stop Date: 07/05/16 Status: Deleted potassium chloride 20 mEq, 100 mL, Route: IVPB, Drug form: INJ, PRN, Dosing Weight 49.5, kg, PRN Ab normal Lab Result, Via central line, Start date: 06/17/16 4:16:00 TRUCK BODY 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ICE, Duration: 30 day, Stop date: 07/17/16 4:15:00 TRUCK BODY 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ICE, FOR ICU USE ONLY Notes: (Same as: KCL) Infuse no faster than 10 mEq/hr if given peripherally. Start Date: 06/17/16 Stop Date: 06/17/16 Status: Discontinued potassium chloride 10 mEq, 100 mL, Route: IVPB, Drug form: INJ, PRN, Dosing Weight 49.5, kg, PRN Ab normal Lab Result, Via peripheral line, Start date: 06/17/16 4:16:00 TRUCK BODY 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ICE, Durati on: 30 day, Stop date: 07/17/16 4:15:00 TRUCK BODY 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ICE, FOR ICU USE ONLY Notes: Infuse at a rate of 10 mEq/hr.(Same as: KCL) Start Date: 06/17/16 Stop Date: 06/17/16 Status: Discontinued potassium chloride 20 mEq, 1 tab, Route: PO, Drug form: ERTAB, PRN, Dosing Weight 49.5, kg, PRN Abn ormal Lab Result, Start date: 06/17/16 4:16:00 TRUCK BODY 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ICE, Duration: 30 day, Stop date: 07/17/16 4:15:00 TRUCK BODY 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ICE, FOR ICU USE ONLY Notes: (Same as: K-Dur 20)"Do Not Crush" With food and full glass of water Start Date: 06/17/16 Stop Date: 06/17/16 Status: Discontinued potassium chloride 20 mEq, 15 mL, Route: NJ, Drug form: LIQ, PRN, Dosing Weight 49.5, kg, PRN Abnor mal Lab Result, Start date: 06/17/16 4:16:00 TRUCK BODY 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ICE, Duration: 30 day, Stop date: 09/17/15 4:15:00 TRUCK BODY 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ICE, FOR ICU USE ONLY Notes: (Same as: Potassium Chloride) Start Date: 06/17/16 Stop Date: 06/17/16 Status: Discontinued potassium chloride 20 mEq, 100 mL, Route: IVPB, Drug form: INJ, Q2H, Dosing Weight 51.364, kg, Tota l dose=40 mEq, Start date: 06/16/16 2:00:00 TRUCK BODY 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ICE, Duration: 2 doses or times, Sto p date: 06/16/16 4:00:00 TRUCK BODY 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ICE, Central Line Notes: (Same as: KCL) Infuse no faster than 10 mEq/hr if given peripherally. Start Date: 06/16/16 Stop Date: 06/16/16 Status: Discontinued potassium chloride 30 mEq, Route: PO, ONCE, Dosing Weight 49.5, kg, Priority: NOW, Start date: 05/30 10/11 7:31:00 TRUCK BODY 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ICE, Stop date: 06/20/16 7:31:00 TRUCK BODY 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ICE Start Date: 06/20/16 Stop Date: 06/20/16 Status: Deleted potassium chloride 10 mEq, 100 mL, Route: IVPB, Drug form: INJ, Q1H, Dosing Weight 49.5, kg, Total Dose=40 meq, Start date: 06/23/16 11:00:00 TRUCK BODY 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ICE, Duration: 4 doses or times, Stop date: 06/23/16 14:00:00 TRUCK BODY 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ICE, Peripheral Line Notes: Infuse at a rate of 10 mEq/hr.(Same as: KCL) Start Date: 06/23/16 Stop Date: 06/23/16 Status: Completed potassium chloride 20 mEq, 100 mL, Route: IVPB, Drug form: INJ, ONCE, Dosing Weight 49.5, kg, Start date: 06/17/16 14:23:00 TRUCK BODY 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ICE, Stop date: 06/17/16 14:23:00 TRUCK BODY 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ICE Notes: (Same as: KCL) Infuse no faster than 10 mEq/hr if given peripherally. Start Date: 06/17/16 Stop Date: 06/17/16 Status: Completed potassium chloride 40 mEq, 30 mL, Route: PO, Drug form: LIQ, Q2H, Dosing Weight 49.5, kg, Start chely e: 06/17/16 16:00:00 TRUCK BODY 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ICE, Duration: 2 doses or times, Stop date: 06/17/16 18:00: 00 TRUCK BODY 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ICE Notes: (Same as: Potassium Chloride) Start Date: 06/17/16 Stop Date: 06/17/16 Status: Completed potassium chloride 10 mEq, 100 mL, Route: IVPB, Drug form: INJ, Q1H, Dosing Weight 49.5, kg, Total Dose=40 meq, Start date: 06/22/16 6:00:00 TRUCK BODY 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ICE, Duration: 4 doses or times, Stop date: 06/22/16 9:00:00 TRUCK BODY 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ICE, Peripheral Line Notes: Infuse at a rate of 10 mEq/hr.(Same as: KCL) Start Date: 06/22/16 Stop Date: 06/22/16 Status: Completed potassium chloride 40 mEq, Route: PO, ONCE, Dosing Weight 49.5, kg, Start date: 06/21/16 8:00:00 CS T, Stop date: 06/21/16 8:00:00 TRUCK BODY 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ICE Start Date: 06/21/16 Stop Date: 06/21/16 Status: Deleted potassium chloride 40 mEq, 30 mL, Route: PO, Drug form: LIQ, ONCE, Dosing Weight 49.5, kg, Start da te: 07/03/16 8:42:00 TRUCK BODY 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ICE, Stop date: 07/03/16 8:42:00 TRUCK BODY 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ICE Notes: (Same as: Potassium Chloride) Start Date: 07/03/16 Stop Date: 07/03/16 Status: Completed potassium chloride 10 mEq, 100 mL, Route: IVPB, Drug form: INJ, Q1H, Start date: 07/05/16 7:00:[address], Duration: 4 doses or times, Stop date: 07/05/16 10:00:00 TRUCK BODY 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ICE Notes: Infuse at a rate of 10 mEq/hr.(Same as: KCL) Start Date: 07/05/16 Stop Date: 07/05/16 Status: Completed potassium chloride 40 mEq, Route: IV, ONCE, Dosing Weight 49.5, kg, Start date: 07/05/16 6:40:00 CS T, Stop date: 07/05/16 6:40:00 TRUCK BODY 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ICE Start Date: 07/05/16 Stop Date: 07/05/16 Status: Deleted potassium chloride 10 mEq, 100 mL, Route: IVPB, Drug form: INJ, Q1H, Dosing Weight 49.5, kg, Total Dose=40 meq, Start date: 06/18/16 7:00:00 TRUCK BODY 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ICE, Duration: 4 doses or times, Stop date: 06/18/16 10:00:00 TRUCK BODY BUILDER APPRENTICE, Peripheral Line Notes: Infuse at a rate of 10 mEq/hr.(Same as: KCL) Start Date: 06/18/16 Stop Date: 06/18/16 Status: Completed potassium chloride 40 mEq, 2 tab, Route: PO, Drug form: ERTAB, Q12H, Dosing Weight 49.5, kg, Start date: 06/24/16 21:00:00 TRUCK BODY BUILDER APPRENTICE, Duration: 30 day, Stop date: 07/24/16 9:00:00 TRUCK BODY BUILDER APPRENTICE Notes: (Same as: K-Dur 20)"Do Not Crush" With food and full glass of water Start Date: 06/24/16 Stop Date: 06/30/16 Status: Discontinued potassium chloride 40 mEq, Route: PO, TID, Dosing Weight 49.5, kg, Start date: 06/23/16 13:00:00 CS T, Duration: 30 day, Stop date: 07/23/16 9:00:00 TRUCK BODY BUILDER APPRENTICE Start Date: 06/23/16 Stop Date: 06/23/16 Status: Canceled potassium chloride 40 mEq, 2 tab, Route: PO, Drug form: ERTAB, Q6H, Dosing Weight 49.5, kg, Start d ate: 06/23/16 12:00:00 TRUCK BODY BUILDER APPRENTICE, Duration: 4 doses or times, Stop date: 06/24/16 6:00 :00 TRUCK BODY BUILDER APPRENTICE Notes: (Same as: K-Dur 20)"Do Not Crush" With food and full glass of water Start Date: 06/23/16 Stop Date: 06/24/16 Status: Completed potassium chloride 40 mEq, 30 mL, Route: PO, Drug form: LIQ, ONCE, Start date: 06/21/16 12:00:00 CS T, Stop date: 06/21/16 12:00:00 TRUCK BODY BUILDER APPRENTICE Notes: (Same as: Potassium Chloride) Start Date: 06/21/16 Stop Date: 06/21/16 Status: Completed potassium iodide 130 mg, Route: PO, Drug form: SOLN, ONCE, Dosing Weight 51.364, kg, Priority: ST AT, Start date: 06/16/16 0:03:00 TRUCK BODY BUILDER APPRENTICE, Stop date: 06/16/16 0:03:00 TRUCK BODY BUILDER APPRENTICE Notes: (Same as: Strong Iodine soln 5%) Start Date: 06/16/16 Stop Date: 06/16/16 Status: Deleted potassium iodide 130 mg, Route: PO, Drug form: SOLN, ONCE, Dosing Weight 51.364, kg, Priority: ST AT, Start date: 06/16/16 0:23:00 TRUCK BODY BUILDER APPRENTICE, Stop date: 06/16/16 0:23:00 TRUCK BODY BUILDER APPRENTICE Notes: (Same as: Strong Iodine soln 5%) Start Date: 06/16/16 Stop Date: 06/16/16 Status: Completed potassium phosphate + sodium chloride 0.9% INJ 250 mL 15 mmol, 5 mL, Route: IVPB, PRN, Dosing Weight 49.5, kg, PRN Abnormal Lab Result , Start date: 06/17/16 4:16:00 TRUCK BODY BUILDER APPRENTICE, Duration: 30 day, Stop date: 07/17/16 4:15:0 0 TRUCK BODY BUILDER APPRENTICE, FOR ICU USE ONLY Notes: (Same as: K Phosphate.) 1 mMol phoshate has 1.47 mEq potassium Infuse o chriss 4 hours Start Date: 06/17/16 Stop Date: 06/17/16 Status: Discontinued potassium phosphate + sodium chloride 0.9% INJ 250 mL 30 mmol, 10 mL, Route: IVPB, PRN, Dosing Weight 49.5, kg, PRN Abnormal Lab Resul t, Start date: 06/17/16 4:16:00 TRUCK BODY BUILDER APPRENTICE, Duration: 30 day, Stop date: 07/17/16 4:15: 00 TRUCK BODY BUILDER APPRENTICE, FOR ICU USE ONLY Notes: (Same as: K Phosphate.) 1 mMol phoshate has 1.47 mEq potassium Infuse o chriss 4 hours Start Date: 06/17/16 Stop Date: 06/17/16 Status: Discontinued potassium phosphate + sodium chloride 0.9% INJ 250 mL 45 mmol, 15 mL, Route: IVPB, PRN, Dosing Weight 49.5, kg, PRN Abnormal Lab Resul t, Start date: 06/17/16 4:16:00 TRUCK BODY BUILDER APPRENTICE, Duration: 30 day, Stop date: 07/17/16 4:15: 00 TRUCK BODY BUILDER APPRENTICE, FOR ICU USE ONLY Notes: (Same as: K Phosphate.) 1 mMol phoshate has 1.47 mEq potassium Infuse o chriss 4 hours Start Date: 06/17/16 Stop Date: 06/17/16 Status: Discontinued potassium phosphate-sodium phosphate 250 mg-280 mg-160 mg oral powder for recons titution 2 pkt, Route: PO, Drug Form: PDR/REC, Dosing Weight 49.5, kg, PRN, PRN Abnormal Lab Result, FOR ICU USE ONLY, Start date: 06/17/16 4:16:00 TRUCK BODY BUILDER APPRENTICE, Duration: 30 day , Stop date: 07/17/16 4:15:00 TRUCK BODY BUILDER APPRENTICE Notes: (Same as: Phos-NaK) Each 1.5 gm pkt has 250mg phosphorous. Mix w/2.5oz w ater and stir. Start Date: 06/17/16 Stop Date: 06/17/16 Status: Discontinued predniSONE 20 mg, 1 tab, Route: PO, Drug form: TAB, Daily, Dosing Weight 49.5, kg, Start da te: 06/26/16 9:00:00 TRUCK BODY BUILDER APPRENTICE, Duration: 5 day, Stop date: 06/30/16 9:00:00 TRUCK BODY BUILDER APPRENTICE Notes: Take with food. Start Date: 06/26/16 Stop Date: 06/30/16 Status: Completed promethazine 25 mg, PO, TID, PRN as needed for nausea/vomiting, 0 Refill(s) Start Date: 06/16/16 Stop Date: 07/05/16 Status: Discontinued propofol (ANES) Route: IV, Drug form: INJ, ONCE, Stop date: 06/18/16 14:21:00 TRUCK BODY BUILDER APPRENTICE Start Date: 06/18/16 Stop Date: 06/18/16 Status: Completed propranolol 2 mg, 2 mL, Route: IV, Drug form: INJ, ONCE, Dosing Weight 51.364, kg, Priority: STAT, Start date: 06/15/16 21:42:00 TRUCK BODY BUILDER APPRENTICE, Stop date: 06/15/16 21:42:00 TRUCK BODY BUILDER APPRENTICE Notes: (Same as: Inderal) Start Date: 06/15/16 Stop Date: 06/15/16 Status: Completed propranolol 40 mg, 1 tab, Route: PO, Drug form: TAB, QID, Dosing Weight 51.364, kg, Start da te: 06/16/16 6:00:00 TRUCK BODY BUILDER APPRENTICE, Stop date: 07/16/16 0:00:00 TRUCK BODY BUILDER APPRENTICE Notes: Give with food.(Same as: Inderal) Start Date: 06/16/16 Stop Date: 07/05/16 Status: Discontinued propranolol 1 mg, 1 mL, Route: IVP, Drug form: INJ, ONCE, Dosing Weight 51.364, kg, Start da te: 06/16/16 0:36:00 TRUCK BODY BUILDER APPRENTICE, Stop date: 06/16/16 0:36:00 TRUCK BODY BUILDER APPRENTICE Notes: (Same as: Inderal) Start Date: 06/16/16 Stop Date: 06/16/16 Status: Completed propranolol 40 mg oral tablet 40 mg=1 tab, PO, QID, 0 Refill(s) Start Date: 07/05/16 Status: Suspended Protonix 40 mg, 1 tab, Route: PO, Drug form: ECTAB, Before Dinner, Dosing Weight 49.5, kg , Start date: 06/24/16 15:44:00 [employer], Duration: 30 day, Stop date: 07/23/16 16:30 :00 [employer] Notes: Tablet should not be chewed or crushed.(Same as: Protonix) Start Date: 06/24/16 Stop Date: 07/05/16 Status: Discontinued Protonix 40 mg, 1 tab, Route: PO, Drug form: ECTAB, Daily, Start date: 06/21/16 9:00:[address], Duration: 30 day, Stop date: 07/20/16 9:00:00 [employer] Notes: Tablet should not be chewed or crushed.(Same as: Protonix) Start Date: 06/21/16 Stop Date: 06/23/16 Status: Discontinued Rocephin + sodium chloride 0.9% INJ 100 mL 1 gm, Route: IVPB, [id number], Dosing Weight 49.5, kg, Priority: NOW, Start date: 08/19/15 7:44:00 [employer], Duration: 30 day, Stop date: 07/18/16 14:00:00 [employer] Notes: (Same As: Rocephin).Use with 100 mL NS and infuse over 30 min MEDICA TION WASTE Product Size: 1000 mgProduct Wasted: ___ mg Start Date: 06/19/16 Stop Date: 07/03/16 Status: Discontinued Roxicodone 10 mg, 2 tab, Route: PO, Drug form: TAB, Q4H, PRN Pain Score 4-6, Start date: 16:57:00 [employer], Duration: 30 day, Stop date: 08/01/16 16:56:00 [employer] Notes: (Same as: Roxicodone) Start Date: 07/02/16 Stop Date: 07/04/16 Status: Discontinued Saline Flush 0.9% 10 ml, Route: IVP, Drug Form: INJ, Dosing Weight 51.364, kg, PRN, PRN Line Flush , Start date: 06/16/16 0:32:00 [employer], Duration: 30 day, Stop date: 07/16/16 0:31:0 0 [employer] Notes: (Same as: BD Posiflush) Start Date: 06/16/16 Stop Date: 07/03/16 Status: Discontinued Saline Flush 0.9% 10 ml, Route: IVP, Drug Form: INJ, Dosing Weight 51.364, kg, PRN, PRN Line Flush , Start date: 06/16/16 0:32:00 [employer]ICE, Duration: 30 day, Stop date: 07/16/16 0:31:0 0 [employer] 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 Notes: (Same as: BD Posiflush) Start Date: 06/16/16 Stop Date: 07/05/16 Status: Discontinued Saline Flush 0.9% 10 ml, Route: IVP, Drug Form: INJ, Dosing Weight 51.364, kg, Q12H, Start date: 08/16/15 9:00:00 [employer] APPRENTICE, Duration: 30 day, Stop date: 07/15/16 21:00:00 [employer] APPRENTICE Notes: (Same as: BD Posiflush) Start Date: 06/16/16 Stop Date: 07/05/16 Status: Discontinued sodium chloride 0.9% 1000 ml INJ 1,000 mL 1,000 mL, Rate: 125 ml/hr, Infuse over: 8 hr, Route: IV, Dosing Weight 51.364 kg , Total Volume: 1,000, Start date: 06/16/16 0:32:00 [employer] APPRENTICE, Duration: 30 day, Stop date: 07/16/16 0:31:00 [employer] APPRENTICE Start Date: 06/16/16 Stop Date: 06/17/16 Status: Discontinued sodium chloride 0.9% 1000 ml INJ 1,000 mL 1,000 mL, Rate: 250 ml/hr, Infuse over: 4 hr, Route: IV, Dosing Weight 51.364 kg , Total Volume: 1,000, Start date: 06/15/16 21:40:00 [employer] APPRENTICE, Duration: 30 day, Stop date: 07/15/16 21:39:00 [employer] APPRENTICE Start Date: 06/15/16 Stop Date: 06/16/16 Status: Discontinued sodium chloride 0.9% 1000 ml INJ 1,000 mL 1,000 mL, Rate: 50 ml/hr, Infuse over: 20 hr, Route: IV, Dosing Weight 49.5 kg, Total Volume: 1,000, Start date: 06/29/16 13:33:00 [employer] APPRENTICE, Stop date: 07/29/16 13:3 2:00 [employer] APPRENTICE Start Date: 06/29/16 Stop Date: 07/03/16 Status: Discontinued sodium phosphate + D5W 250 mL 15 mmol, 5 mL, Route: IVPB, PRN, Dosing Weight 49.5, kg, PRN Abnormal Lab Result , Start date: 06/17/16 4:16:00 [employer] APPRENTICE, Duration: 30 day, Stop date: 07/17/16 4:15:0 0 [employer] APPRENTICE, FOR ICU USE ONLY Start Date: 06/17/16 Stop Date: 06/17/16 Status: Discontinued sodium phosphate + D5W 250 mL 30 mmol, 10 mL, Route: IVPB, PRN, Dosing Weight 49.5, kg, PRN Abnormal Lab Resul t, Start date: 06/17/16 4:16:00 [employer] APPRENTICE, Duration: 30 day, Stop date: 07/17/16 4:15: 00 [employer]DER APPRENTICE, FOR ICU USE ONLY Start Date: 06/17/16 Stop Date: 06/17/16 Status: Discontinued sodium phosphate + D5W 250 mL 45 mmol, 15 mL, Route: IVPB, PRN, Dosing Weight 49.5, kg, PRN Abnormal Lab Resul t, Start date: 06/17/16 4:16:00 [employer] APPRENTICE, Duration: 30 day, Stop date: 07/17/16 4:15: 00 [employer]DER APPRENTICE, FOR ICU USE ONLY Start Date: 06/17/16 Stop Date: 06/17/16 Status: Discontinued thiamine + sodium chloride 0.9% INJ 50 mL 100 mg, 1 mL, Route: IVPB, Drug form: INJ, Q24H, Dosing Weight 49.5, kg, Start d ate: 06/22/16 11:00:00 [employer]PRENTICE, Duration: 30 day, Stop date: 07/21/16 11:00:00 [employer] APPRENTICE Notes: (Same As: Vitamin B1) Start Date: 06/22/16 Stop Date: 07/03/16 Status: Discontinued TPN, adult solution 2,050 mL 2,050 mL, Rate: 83 ml/hr, Infuse over: 24.7 hr, Route: IV, Dosing Weight 49.5 kg , Total Volume: 2,050, Start date: 07/04/16 22:00:00 [employer] APPRENTICE, Duration: 1 day, Stop date: 07/05/16 21:59:00 [employer]IL[employer] APPRENTICE Start Date: 07/04/16 Stop Date: 07/05/16 Status: Discontinued TPN, adult solution 2,050 mL 2,050 mL, Rate: 83 ml/hr, Infuse over: 24.7 hr, Route: IV, Dosing Weight 49.5 kg , Total Volume: 2,050, Start date: 07/05/16 22:00:00 [employer] APPRENTICE, Duration: 1 day, Stop date: 07/06/16 21:59:00 [employer] APPRENTICE Start Date: 07/05/16 Stop Date: 07/05/16 Status: Canceled tramadol 50 mg, PO, Q12H, PRN Pain, # 20 tab, 0 Refill(s) Start Date: 06/16/16 Stop Date: 07/05/16 Status: Discontinued Tylenol 650 mg, 2 tab, Route: PO, Drug form: TAB, Q6H, Dosing Weight 51.364, kg, PRN Clarissa n Score 1-3, Start date: 06/16/16 1:23:00 [employer] APPRENTICE, Duration: 30 day, Stop date: 06/28 04/13 1:22:00 [employer] APPRENTICE Notes: Do not exceed 4 gm/day. (Same as: Tylenol) Start Date: 06/16/16 Stop Date: 07/03/16 Status: Discontinued Tylenol 650 mg, 2 tab, Route: PO, Drug form: TAB, Q6H, Dosing Weight 49.5, kg, PRN Pain 1-3/Temp > 100.4 F, Start date: 07/03/16 14:51:00 [employer]IL[employer] APPRENTICE, Duration: 30 day, Stop date: 08/02/16 14:50:00 [employer]IL[employer] APPRENTICE Notes: Do not exceed 4 gm/day. (Same as: Tylenol) Start Date: 07/03/16 Stop Date: 07/05/16 Status: Discontinued Tylenol 325 mg, 1 tab, Route: PO, Drug form: TAB, Q6H, PRN Pain Score 4-6, Start date: 09/02/15 16:57:00 [employer]ILDER APPRENTICE, Duration: 30 day, Stop date: 08/01/16 16:56:00 [employer] BUILDER APPRENTICE Notes: Do not exceed 4 gm/day. (Same as: Tylenol) Start Date: 07/02/16 Stop Date: 07/03/16 Status: Discontinued Zofran 4 mg, 2 mL, Route: IVP, Drug form: INJ, ONCE, Dosing Weight 69.318, kg, Priority : STAT, Start date: 06/15/16 21:16:00 [employer]IL[employer] APPRENTICE, Stop date: 06/15/16 21:16:00 [employer] BUILDER APPRENTICE Notes: (Same as: Zofran) MEDICATION WASTE Product Size: 4 mgProduct Was nakul: ___ mg Start Date: 06/15/16 Stop Date: 06/15/16 Status: Completed Zosyn + sodium chloride 0.9% 100 ml ADV 100 mL 3.375 gm, Route: IVPB, ABXQ8H, Dosing Weight 51.364, kg, CrCl >=20 ml/min infuse over 4 hours, Start date: 06/16/16 2:00:00 [employer]ILDER APPRENTICE, Duration: 30 day, Stop date: 07/15/16 18:00:00 [employer] BUILDER APPRENTICE Notes: (Same as: Zosyn) Dosing based on Piperacillin component Start Date: 06/16/16 Stop Date: 06/18/16 Status: Discontinued Results ELECTROLYTES 1 2 3 Most recent to oldest [Reference Range]: 138 mEq/L (07/05/16 4:30 AM) 136 mEq/L (07/03/16 7:00 AM) 133 mEq/L *LOW* (07/01/16 5:12 AM) Sodium Lvl [135-145 mEq/L] 2.8 mEq/L 1 *CRIT* (07/05/16 4:30 AM) 3.0 mEq/L 2 *CRIT* (07/03/16 7:00 AM) 3.8 mEq/L (07/01/16 5:12 AM) Potassium Lvl [3.5-5.1 mEq/L] 97 mEq/L (07/05/16 4:30 AM) 99 mEq/L (07/03/16 7:00 AM) 96 mEq/L (07/01/16 5:12 AM) Chloride Lvl [95-109 mEq/L] 29 mEq/L (07/05/16 4:30 AM) 27 mEq/L (07/03/16 7:00 AM) 25 mEq/L (07/01/16 5:12 AM) CO2 [24-32 mEq/L] 14.8 mEq/L (07/05/16 4:30 AM) 13.0 mEq/L (07/03/16 7:00 AM) 15.8 mEq/L (07/01/16 5:12 AM) AGAP [10.0-20.0 mEq/L] 1Result Comment: Critical Result(s) called to ernesto isabel at 07/05/2016 05:43 by tl. Read back OK. 2Result Comment: Critical Result(s) called to Lizbet Bonilla at 07/03/2016 08:10 by ka. Read back OK. CHEM PANEL 1 2 3 Most recent to oldest [Reference Range]: 0.20 mg/dL *LOW* (07/05/16 4:30 AM) <0.15 mg/dL *LOW* (07/03/16 7:00 AM) 0.16 mg/dL *LOW* (07/01/16 5:12 AM) Creatinine Lvl [0.50-1.40 mg/dL] 163 mL/min/1.73m2 1 *NA* (07/05/16 4:30 AM) 179 mL/min/1.73m2 2 *NA* (07/03/16 7:00 AM) 175 mL/min/1.73m2 3 *NA* (07/01/16 5:12 AM) eGFR 5 mg/dL *LOW* (07/05/16 4:30 AM) 5 mg/dL *LOW* (07/03/16 7:00 AM) 6 mg/dL *LOW* (07/01/16 5:12 AM) BUN [7-22 mg/dL] 25 (07/05/16 4:30 AM) 38 *HI* (07/01/16 5:12 AM) 30 *HI* (06/30/16 6:13 AM) B/C Ratio [6-25] 228 mg/dL *HI* (07/05/16 4:30 AM) 126 mg/dL *HI* (07/03/16 7:00 AM) 128 mg/dL *HI* (07/01/16 5:12 AM) Glucose Lvl [70-99 mg/dL] 4.2 g/dL *LOW* (07/05/16 4:30 AM) 4.9 g/dL *LOW* (07/03/16 7:00 AM) 5.4 g/dL *LOW* (07/01/16 5:12 AM) Total Protein [6.4-8.4 g/dL] 1.5 g/dL *LOW* (07/05/16 4:30 AM) 1.0 g/dL *LOW* (07/03/16 7:00 AM) 1.2 g/dL *LOW* (07/01/16 5:12 AM) Albumin Lvl [3.5-5.0 g/dL] 2.7 g/dL (07/05/16 4:30 AM) 3.9 g/dL (07/03/16 7:00 AM) 4.2 g/dL (07/01/16 5:12 AM) Globulin [2.7-4.2 g/dL] 0.6 *LOW* (07/05/16 4:30 AM) 0.3 *LOW* (07/03/16 7:00 AM) 0.3 *LOW* (07/01/16 5:12 AM) A/G Ratio [0.7-1.6] 6.5 mg/dL 4 *CRIT* (07/05/16 4:30 AM) 6.8 mg/dL *CRIT* (07/03/16 7:00 AM) 7.0 mg/dL 5 *CRIT* (07/01/16 5:12 AM) Calcium Lvl [8.5-10.5 mg/dL] 2.9 mg/dL (07/05/16 4:30 AM) 3.1 mg/dL (07/01/16 5:12 AM) 3.0 mg/dL (06/29/16 4:20 AM) Phosphorus [2.5-4.5 mg/dL] 1.6 mg/dL *LOW* (07/05/16 4:30 AM) 1.9 mg/dL (07/02/16 6:04 AM) 1.7 mg/dL *LOW* (07/01/16 5:12 AM) Magnesium Lvl [1.8-2.4 mg/dL] 7 unit/L (07/05/16 4:30 AM) 11 unit/L (07/03/16 7:00 AM) 9 unit/L (07/01/16 5:12 AM) ALT [0-65 unit/L] 8 unit/L (07/05/16 4:30 AM) 18 unit/L (07/03/16 7:00 AM) 21 unit/L (07/01/16 5:12 AM) AST [0-37 unit/L] 150 unit/L *HI* (07/05/16 4:30 AM) 228 unit/L *HI* (07/03/16 7:00 AM) 203 unit/L *HI* (07/01/16 5:12 AM) Alk Phos [39-136 unit/L] 0.9 mg/dL (07/05/16 4:30 AM) 0.7 mg/dL (07/03/16 7:00 AM) 0.6 mg/dL (07/01/16 5:12 AM) Bili Total [0.2-1.3 mg/dL] 0.5 mg/dL *HI* (06/17/16 1:16 PM) Bili Direct [0.0-0.3 mg/dL] 0.3 mg/dL (06/17/16 1:16 PM) Bili Indirect [0.0-1.0 mg/dL] 191 unit/L *HI* (06/30/16 6:13 AM) 170 unit/L *HI* (06/29/16 4:20 AM) 149 unit/L *HI* (06/18/16 5:07 AM) Amylase Lvl [25-115 unit/L] 630 unit/L *HI* (07/05/16 4:30 AM) 588 unit/L *HI* (07/03/16 7:00 AM) 943 unit/L *HI* (06/30/16 6:13 AM) Lipase Lvl [73-393 unit/L] 39.0 uMol/L (06/22/16 1:11 PM) Ammonia [<=45.0 uMol/L] 0.11 ng/mL *HI* (06/16/16 5:11 AM) Procalcitonin Lvl [0.00-0.10 ng/mL] <13 ng/mL *LOW* (07/05/16 2:57 PM) Vitamin D, 25-OH, Total [30-100 ng/mL] 1Result Comment: The eGFR is calculated using [...] tiplied by the estimated BMI. 4Result Comment: Critical Result(s) called to ernesto isabel at 07/05/2016 05:43 by tl. Read back OK. 5Result Comment: Critical Result(s) called to Efrain Jeleon at 07/01/2016 07:01 by smt. Read back OK. CARDIAC ENZYMES 1 2 3 Most recent to oldest [Reference Range]: 19 unit/L (06/15/16 9:26 PM) Total CK [12-191 unit/L] 1.5 ng/mL (06/16/16 9:18 AM) 1.6 ng/mL (06/16/16 5:11 AM) 1.3 ng/mL (06/15/16 9:26 PM) CK MB [0.5-3.6 ng/mL] 6.8 *HI* (06/15/16 9:26 PM) CK MB Index [0.0-2.5] <0.02 ng/mL (06/16/16 9:18 AM) 0.03 ng/mL (06/16/16 5:11 AM) 0.03 ng/mL (06/15/16 9:26 PM) Troponin-I [0.00-0.40 ng/mL] 267 pg/mL *HI* (07/02/16 6:04 AM) BNP [<=100 pg/mL] LIPIDS 1 2 3 Most recent to oldest [Reference Range]: <4.17 (06/18/16 5:07 AM) CHD Risk [3.90-5.80] <50 mg/dL (06/18/16 5:07 AM) Chol [<=199 mg/dL] 108 mg/dL (06/18/16 5:07 AM) Trig [<=149 mg/dL] 12 mg/dL *LOW* (06/18/16 5:07 AM) HDL [>=61 mg/dL] 16 mg/dL (06/18/16 5:07 AM) LDL (Calculated) [<=99 mg/dL] 22 *NA* (06/18/16 5:07 AM) VLDL ANEMIA STUDY 1 2 3 Most recent to oldest [Reference Range]: 476 pg/mL (06/22/16 1:11 PM) Vitamin B12 Lvl [254-1320 pg/mL] 3.8 ng/mL (06/22/16 1:11 PM) Folate Lvl [>=3.0 ng/mL] PARATHYROID PROFILE 1 2 3 Most recent to oldest [Reference Range]: 0.97 mMol/L *LOW* (07/05/16 9:13 AM) 0.97 mMol/L *LOW* (06/29/16 4:20 AM) 0.95 mMol/L *LOW* (06/28/16 2:19 PM) Ca Ion WB [1.05-1.25 mMol/L] 0.96 mMol/L *LOW* (07/05/16 9:13 AM) 0.97 mMol/L *LOW* (06/29/16 4:20 AM) 0.94 mMol/L *LOW* (06/28/16 2:19 PM) Ca Norm WB [1.05-1.25 mMol/L] DRUG SCREEN 1 2 3 Most recent to oldest [Reference Range]: Negative *NA* (06/16/16 4:26 AM) U Amph Scr [Negative] Negative *NA* (06/16/16 4:26 AM) U Kristen Scr [Negative] Negative *NA* (06/16/16 4:26 AM) U Benzodia Scr [Negative] Negative *NA* (06/16/16 4:26 AM) U Cocaine Scr [Negative] Positive *ABN* (06/16/16 4:26 AM) U Opiate Scr [Negative] Negative *NA* (06/16/16 4:26 AM) U Phencyc Scr [Negative] Negative *NA* (06/16/16 4:26 AM) U Cannab Scr [Negative] See Note (06/16/16 4:26 AM) UDS Note ENDOCRINOLOGY 1 2 3 Most recent to oldest [Reference Range]: <1 mIU/mL *NA* (06/15/16 9:26 PM) hCG Tot <1.0 ng/dL 1 *NA* (06/22/16 3:26 PM) Aldosterone [0.0-30.0 ng/dL] 4.74 ng/mL/hr 2 *NA* (06/22/16 3:26 PM) Renin Activity <.2 3 *NA* (06/22/16 3:26 PM) Aldos/Renin Ratio [0.0-30.0] 1Result Comment: This test was developed and its performance characteristics determined by [facility]. It has not been cleared or approved by the Food and Drug Administration. 2Result Comment: Adult Normal Salt Intake: Upright 1.31 - 3.95 Supine 0.15 - 2.33 Salt Excretion (Na mEq/24 hr): Na=0 - 30 8.82 - 23.86 Na=30 - 75 4.09 - 7.73 Na=75 - 150 1.44 - 2.80 Na=>150 0.39 - 1.31 3Result Comment: Units: ng/dL per ng/mL/hr Performed At: [facility] [address] [id number] Milton Suárez MD Ph:[phone] URINE CHEM 1 2 3 Most recent to oldest [Reference Range]: Negative (06/29/16 1:46 PM) U Preg [Negative] URINE AND STOOL 1 2 3 Most recent to oldest [Reference Range]: Slight *ABN* (06/16/16 4:26 AM) UA Turbidity [Clear] Ltyellow *NA* (06/16/16 4:26 AM) UA Color 7.0 (06/16/16 4:26 AM) UA pH [5.0-8.0] 1.016 (06/16/16 4:26 AM) UA Spec Grav [<=1.030] Negative mg/dL *NA* (06/16/16 4:26 AM) UA Glucose [Negative mg/dL] Moderate *ABN* (06/16/16 4:26 AM) UA Blood [Negative] Negative mg/dL *NA* (06/16/16 4:26 AM) UA Ketones [Negative mg/dL] Negative mg/dL (06/16/16 4:26 AM) UA Protein [Negative mg/dL] <=1.0 mg/dL *NA* (06/16/16 4:26 AM) UA Urobilinogen [0.1-1.0 mg/dL] Negative *NA* (06/16/16 4:26 AM) UA Bili [Negative] Large *ABN* (06/16/16 4:26 AM) UA Leuk Est [Negative] Negative (06/16/16 4:26 AM) UA Nitrite [Negative] 79 /HPF *HI* (06/16/16 4:26 AM) UA WBC [0-5 /HPF] 2 /HPF (06/16/16 4:26 AM) UA RBC [0-2 /HPF] Occasional /LPF *NA* (06/16/16 4:26 AM) UA Sq Epi [Few /LPF] 5 /LPF *HI* (06/16/16 4:26 AM) UA Hyal Cast [0-2 /LPF] 11 /LPF *HI* (06/16/16 4:26 AM) UA Trans Epi [<=0 /LPF] None Seen (06/24/16 8:37 PM) Fecal Leukocyte IMMUNOLOGY 1 2 3 Most recent to oldest [Reference Range]: Negative *NA* (06/16/16 5:11 AM) HIV 1/2 Ab [Negative] HEMATOLOGY 1 2 3 Most recent to oldest [Reference Range]: 7.3 K/CMM (07/05/16 4:30 AM) 10.3 K/CMM (07/03/16 7:00 AM) 17.3 K/CMM *HI* (07/01/16 5:12 AM) WBC [3.7-10.4 K/CMM] 3.31 M/CMM *LOW* (07/05/16 4:30 AM) 3.60 M/CMM *LOW* (07/03/16 7:00 AM) 3.89 M/CMM *LOW* (07/01/16 5:12 AM) RBC [4.20-5.40 M/CMM] 9.3 g/dL *LOW* (07/05/16 4:30 AM) 10.1 g/dL *LOW* (07/03/16 7:00 AM) 11.1 g/dL *LOW* (07/01/16 5:12 AM) Hgb [12.0-16.0 g/dL] 29.2 % *LOW* (07/05/16 4:30 AM) 31.5 % *LOW* (07/03/16 7:00 AM) 33.4 % *LOW* (07/01/16 5:12 AM) Hct [36.0-48.0 %] 88.4 fL (07/05/16 4:30 AM) 87.7 fL (07/03/16 7:00 AM) 85.8 fL (07/01/16 5:12 AM) MCV [80.0-98.0 fL] 28.2 pg (07/05/16 4:30 AM) 28.0 pg (07/03/16 7:00 AM) 28.5 pg (07/01/16 5:12 AM) MCH [27.0-31.0 pg] 31.8 g/dL *LOW* (07/05/16 4:30 AM) 31.9 g/dL *LOW* (07/03/16 7:00 AM) 33.2 g/dL (07/01/16 5:12 AM) MCHC [32.0-36.0 g/dL] 23.5 % *HI* (07/05/16 4:30 AM) 24.1 % *HI* (07/03/16 7:00 AM) 24.3 % *HI* (07/01/16 5:12 AM) RDW [11.5-14.5 %] 169 K/CMM (07/05/16 4:30 AM) 242 K/CMM (07/03/16 7:00 AM) 268 K/CMM (07/01/16 5:12 AM) Platelet [133-450 K/CMM] 9.4 fL (07/05/16 4:30 AM) 9.2 fL (07/03/16 7:00 AM) 10.1 fL (07/01/16 5:12 AM) MPV [7.4-10.4 fL] 78.6 % *HI* (07/05/16 4:30 AM) 81.6 % *HI* (07/03/16 7:00 AM) 85.1 % *HI* (07/01/16 5:12 AM) Segs [45.0-75.0 %] 12.6 % *LOW* (07/05/16 4:30 AM) 11.7 % *LOW* (07/03/16 7:00 AM) 8.2 % *LOW* (07/01/16 5:12 AM) Lymphocytes [20.0-40.0 %] 7.7 % (07/05/16 4:30 AM) 6.4 % (07/03/16 7:00 AM) 6.5 % (07/01/16 5:12 AM) Monocytes [2.0-12.0 %] 0.8 % (07/05/16 4:30 AM) 0.2 % (07/03/16 7:00 AM) 0.1 % (07/01/16 5:12 AM) Eosinophils [0.0-4.0 %] 0.3 % (07/05/16 4:30 AM) 0.1 % (07/03/16 7:00 AM) 0.1 % (07/01/16 5:12 AM) Basophils [0.0-1.0 %] 5.7 K/CMM (07/05/16 4:30 AM) 8.4 K/CMM *HI* (07/03/16 7:00 AM) 14.7 K/CMM *HI* (07/01/16 5:12 AM) Segs-Bands # [1.5-8.1 K/CMM] 0.9 K/CMM *LOW* (07/05/16 4:30 AM) 1.2 K/CMM (07/03/16 7:00 AM) 1.4 K/CMM (07/01/16 5:12 AM) Lymphocytes # [1.0-5.5 K/CMM] 0.6 K/CMM (07/05/16 4:30 AM) 0.7 K/CMM (07/03/16 7:00 AM) 1.1 K/CMM *HI* (07/01/16 5:12 AM) Monocytes # [0.0-0.8 K/CMM] 0.1 K/CMM (07/05/16 4:30 AM) 0.2 K/CMM (06/19/16 6:19 AM) Eosinophils # [0.0-0.5 K/CMM] Normal (06/27/16 4:40 AM) Normal (06/17/16 1:16 PM) Normal (06/15/16 9:26 PM) RBC Morph Normal (06/27/16 4:40 AM) Clumped (06/17/16 1:16 PM) Normal (06/15/16 9:26 PM) Plt Morph 4.48 ug/mL FEU *NA* (06/15/16 9:54 PM) D-Dimer TUMOR MARKERS 1 2 3 Most recent to oldest [Reference Range]: 2.1 ng/mL (06/17/16 1:16 PM) CEA [0.0-3.0 ng/mL] 354.0 unit/mL *HI* (06/17/16 1:16 PM) CA 125 [0.0-35.0 unit/mL] 3.2 ng/mL (06/17/16 1:16 PM) AFP TM [0.0-11.0 ng/mL] MOLECULAR DIAGNOSTIC 1 2 3 Most recent to oldest [Reference Range]: Negative (06/24/16 8:37 PM) C difficile DNA [Negative] BACTERIAL - SEROLOGY 1 2 3 Most recent to oldest [Reference Range]: Negative (06/16/16 4:26 AM) MRSA by PCR Immunizations Not Given Vaccine Date Status Refusal Reason pneumococcal 23-valent vaccine 06/20/16 Not Given Patient Refuses Procedures Procedure Date Related Diagnosis Body Site Tubal ligation Social History Social History Type Response Substance Abuse Use: None. Sexual Sexually active: Yes. Alcohol Never Smoking Status Never smoker; Ready to change: No; Concerns about tobacco use in household: No; Exposure to Tobacco Smoke None; Cigarette Smoking Last 365 Days No; Reg Smoking Cessation Counseling No Assessment and Plan Extracted from: Title: Progress Note * Author: Tri Dee MD Date: 07/05/16 Impression and Plan The patient was seen and examined by me with the resident/HARDBOARD GRINDER/PA and I agree with the History/Exam documented.
--- OUTSIDE RECORDS SUMMARY | 2019-02-11 16:46 | XMS REPORT | Summary of Care ---
Author Author [facility] Organization [facility] Address Unknown Phone Unavailable Encounter CRISTIANE Lindo(JOSEPH) [id number] Date(s): 08/23/16 - 09/10/16 [facility] [address] [facility] provided by [facility] [place] [address]- Discharge Disposition: Acute Care Attending Physician: Bree Vences MD Admitting Physician: Rolando Álvarez MD Referring Physician: Tim Edmonds DO Vital Signs 1 2 3 Most recent to oldest [Reference Range]: 154.94 cm (08/23/16 7:11 PM) Height 97.5 DegF (09/10/16 11:30 AM) 97.9 DegF (09/10/16 8:15 AM) 97 DegF (09/10/16 3:16 AM) Temperature Oral [96.4-99.1 DegF] 138/86 mmHg (09/10/16 11:30 AM) 117/75 mmHg (09/10/16 8:15 AM) 121/85 mmHg (09/10/16 3:16 AM) Blood Pressure [90-140/60-90 mmHg] 18 BRMIN (09/10/16 11:30 AM) 18 BRMIN (09/10/16 8:15 AM) 16 BRMIN (09/10/16 3:16 AM) Respiratory Rate [14-20 BRMIN] 103 bpm *HI* (09/10/16 11:30 AM) 99 bpm (09/10/16 8:15 AM) 98 bpm (09/10/16 3:16 AM) Peripheral Pulse Rate [60-100 bpm] 50 kg (08/25/16 11:23 AM) 50 kg (08/23/16 7:11 PM) Weight 20.83 m2 (08/23/16 7:11 PM) Body Mass Index Problem List Condition Effective Dates Status Health Status Informant Diabetes(Confirmed) Resolved Gallbladder Resolved disease(Confirmed) Goiter(Confirmed) Resolved Heartburn(Confirmed) Resolved Hypomagnesemia(Confi Active rmed) Hypophosphatemia(Con < 08/31/16 Resolved firmed) MRSA(Confirmed)1, 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 Allergies, Adverse Reactions, Alerts Substance Reaction Severity Status ciprofloxacin Active Keflex1 Rash, NOS Active 1tolerated Cefep[place]23[place] [facility] [place] doses as per MD and as documented in e-MAR Medications albuterol-ipratropium 2.5-0.5 mg inhalation solution 3 mL, Route: NEB, Drug Form: SOLN, Dosing Weight 50, kg, Q6H, PRN Shortness of b reath, Start date: 08/23/16 20:14:00 [employer], Duration: 30 day, Stop date: 09/22/16 20:13:00 [employer] Notes: (Same as: Gail) Start Date: 08/23/16 Stop Date: 09/10/16 Status: Discontinued ANES flumazenil 0.2 mg, Route: IVP, PRN, Dosing Weight 50, kg, PRN Benzodiazepine Reversal, Init ial dose, Start date: 08/24/16 15:59:00 [employer] [facility], Duration: 30 day, Stop date: 15:58:00 [employer] [facility] Start Date: 08/24/16 Stop Date: 08/24/16 Status: Discontinued ANES HYDROmorphone 0.5 mg, Route: IVP, Q5Min, Dosing Weight 50, kg, PRN Pain Score 7-10, Start date : 08/24/16 15:59:00 [employer] [facility], Duration: 4 doses or times, Stop date: Limited # of lakisha es Start Date: 08/24/16 Stop Date: 08/24/16 Status: Discontinued ANES metoprolol 2 mg, Route: IVP, Q5Min, Dosing Weight 50, kg, PRN Other -See Comment, Start chely e: 08/24/16 15:59:00 [employer] [facility], Duration: 3 doses or times, Stop date: Limited # of ti mes Start Date: 08/24/16 Stop Date: 08/24/16 Status: Discontinued ANES naloxone 0.4 mg, Route: IVP, Q2MIN, Dosing Weight 50, kg, PRN Narcotic Reversal, Start da te: 08/24/16 15:59:00 [employer] [facility], Duration: 8 doses or times, Stop date: Limited # of t imes Start Date: 08/24/16 Stop Date: 08/24/16 Status: Discontinued ANES ondansetron 4 mg, Route: IVP, ONCE, Dosing Weight 50, kg, PRN Nausea & Vomiting, Start date: 08/24/16 15:59:00 [employer] [facility] Start Date: 08/24/16 Stop Date: 08/24/16 Status: Completed ANES oxyCODONE 10 mg, Route: PO, Drug form: TAB, Q4H, Dosing Weight 50, kg, PRN Pain Score 7-10 , Start date: 08/24/16 15:59:00 [employer] [facility] [facility] [employer], Duration: 30 day, Stop date: 09/23/16 15:58 :00 [employer] [facility] Start Date: 08/24/16 Stop Date: 08/24/16 Status: Discontinued ANES oxyCODONE 5 mg, Route: PO, Drug form: TAB, Q4H, Dosing Weight 50, kg, PRN Pain Score 4-6, Start date: 08/24/16 15:59:00 [employer] [facility] [facility], Duration: 30 day, Stop date: 09/23/16 15:58:0 0 [employer] Start Date: 08/24/16 Stop Date: 08/24/16 Status: Discontinued Calmoseptine topical ointment 1 appl, Route: TOP, PRN, Drug form: OINT, PRN Diaper Rash, Start date: 08/28/16 10:43:00 [employer] [facility] [facility] [employer], Duration: 30 day, Stop date: 09/27/16 10:42:00 [employer] [facility], Dosin g Notes: (Same as: Calmoseptine) Start Date: 08/28/16 Stop Date: 09/10/16 Status: Discontinued Cathflo Activase 2 mg injection 2 mg, 2 mL, Route: MISC, Drug form: INJ, ONCE, Dosing Weight 50, kg, Start date: 08/30/16 10:39:00 [employer] [facility], Stop date: 08/30/16 10:39:00 [employer] [facility] [employer] Notes: "Syringe for catheter clearance or interventional radiology use.Reconstit manpreet each vial of Cathflo Activase with 2.2 ml Sterile Water resulting in a 1 mg/ ml solution. Stable for 8 hours only. (Same as: Activase) MEDICATION WASTE * Product Size: 2 mgProduct Wasted: ___ mg Start Date: 08/30/16 Stop Date: 08/30/16 Status: Completed Cathflo Activase 2 mg injection 2 mg, 2 mL, Route: MISC, Drug form: INJ, ONCE, Dosing Weight 50, kg, Start date: 08/30/16 10:39:00 [employer] [facility], Stop date: 08/30/16 10:39:00 [employer] [facility] [facility] [employer] Notes: "Syringe for catheter clearance or interventional radiology use.Reconstit manpreet each vial of Cathflo Activase with 2.2 ml Sterile Water resulting in a 1 mg/ ml solution. Stable for 8 hours only. (Same as: Activase) MEDICATION WASTE * Product Size: 2 mgProduct Wasted: ___ mg Start Date: 08/30/16 Stop Date: 08/30/16 Status: Completed cefepime 1 gm, Route: IVPB, Drug form: INJ, [id number], Dosing Weight 50, kg, (CrCl 30 - 49 ml/min), Start date: 08/23/16 21:00:00 [employer] [facility] [facility] [employer], Duration: 30 day, Stop date: 7 9:00:00 [employer] [facility] [facility] Notes: (Same As: Maxipime) MEDICATION WASTE Product Size: 1000 mgProduc t Wasted: __0_ mg Start Date: 08/23/16 Stop Date: 08/24/16 Status: Discontinued Dextrose 50% Syringe 25 gm, 50 mL, Route: IVP, Drug Form: INJ, Dosing Weight 50, kg, PRN, PRN Blood G lucose Results, Start date: 08/28/16 23:37:00 [employer] [facility] [facility] [employer], Duration: 30 day, Stop date: 09/27/16 23:36:00 [facility] [facility] Start Date: 08/28/16 Stop Date: 09/10/16 Status: Discontinued Dextrose 50% Syringe 12.5 gm, 25 mL, Route: IVP, Drug Form: INJ, Dosing Weight 50, kg, PRN, PRN Blood Glucose Results, Start date: 08/28/16 23:37:00 [employer] [facility] [facility] [employer], Duration: 30 day, Stop date: 09/27/16 23:36:00 [employer] [facility] Start Date: 08/28/16 Stop Date: 09/10/16 Status: Discontinued Dextrose 50% Syringe 12.5 gm, 25 mL, Route: IVP, Drug Form: INJ, Dosing Weight 50, kg, PRN, PRN Blood Glucose Results, Start date: 08/24/16 18:07:00 [employer] [facility] [facility], Duration: 30 day, Stop date: 09/23/16 18:06:00 [employer] [facility] Start Date: 08/24/16 Stop Date: 08/28/16 Status: Discontinued Dextrose 50% Syringe 25 gm, 50 mL, Route: IVP, Drug Form: INJ, Dosing Weight 50, kg, PRN, PRN Blood G lucose Results, Start date: 08/24/16 18:07:00 [employer] [facility] [facility] [employer], Duration: 30 day, Stop date: 09/23/16 18:06:00 [employer] [facility] Start Date: 08/24/16 Stop Date: 08/28/16 Status: Discontinued Dextrose 50% Syringe 50 mL, Route: IVP, Dosing Weight 50, kg, PRN, PRN Blood Glucose Results, Start d ate: 08/28/16 13:16:00 [employer] [facility] [facility] [employer], Duration: 30 day, Stop date: 09/27/16 13:15:00 [employer] [facility] Start Date: 08/28/16 Stop Date: 08/28/16 Status: Deleted Dextrose 50% Syringe 25 mL, Route: IVP, Dosing Weight 50, kg, PRN, PRN Blood Glucose Results, Start d ate: 08/28/16 13:16:00 [employer] [facility] [facility] [employer], Duration: 30 day, Stop date: 09/27/16 13:15:00 [facility] [facility] Start Date: 08/28/16 Stop Date: 08/28/16 Status: Deleted Dilaudid 0.5 mg, 0.25 mL, Route: IVP, Drug form: INJ, ONCE, Dosing Weight 50, kg, Priorit y: STAT, Start date: 09/05/16 16:32:00 [employer] [facility] [facility], Stop date: 09/05/16 16:32:00 [facility] [facility] Notes: Same as: Dilaudid Start Date: 09/05/16 Stop Date: 09/05/16 Status: Completed enoxaparin 40 mg, 0.4 mL, Route: SUB-Q, Drug form: INJ, [id number], Dosing Weight 50, kg, Sta rt date: 08/23/16 21:00:00 [employer] [facility] [facility], Duration: 30 day, Stop date: 09/21/16 21:00:[address] Notes: (Same as: Lovenox) Start Date: 08/23/16 Stop Date: 09/10/16 Status: Discontinued glucagon 1 mg, Route: IM, Drug form: PDR/INJ, PRN, Dosing Weight 50, kg, PRN Blood Glucos e Results, Start date: 08/28/16 23:37:00 [employer] [facility] [facility], Duration: 30 day, Stop date: 09/27 23:36:00 [employer] [facility] Start Date: 08/28/16 Stop Date: 09/10/16 Status: Discontinued glucagon 1 mg, Route: IM, Drug form: PDR/INJ, PRN, Dosing Weight 50, kg, PRN Blood Glucos e Results, Start date: 08/24/16 18:07:00 [employer] [facility], Duration: 30 day, Stop date: 09/23 18:06:00 [facility] [facility] Start Date: 08/24/16 Stop Date: 08/28/16 Status: Discontinued glucagon 1 mg, Route: IM, PRN, Dosing Weight 50, kg, PRN Blood Glucose Results, Start chely e: 08/28/16 13:16:00 [employer] [facility], Duration: 30 day, Stop date: 09/27/16 13:15:00 [facility] [facility] Start Date: 08/28/16 Stop Date: 08/28/16 Status: Deleted hydromorphone 0.5 mg, 0.25 mL, Route: IV, Drug form: INJ, Q3H, Dosing Weight 50, kg, PRN Pain Score 4-6, Start date: 08/23/16 20:05:00 [facility] [facility], Duration: 30 day, Stop date: 09/22 20:04:00 [facility] [facility] Notes: Same as Dilaudid Start Date: 08/23/16 Stop Date: 09/05/16 Status: Discontinued insulin aspart 3 unit, 0.03 mL, Route: SUB-Q, Drug form: SOLN, TID-Before Meals, Dosing Weight 50, kg, PRN Blood Glucose Results, Start date: 08/24/16 18:07:00 [employer] [facility] [facility], Duration: 30 day, Stop date: 09/23/16 18:06:00 [employer] [facility] [facility] Notes: Roll in palms of hands gently; Do not shake vigorously. (Same as: NovoJACQUELIN Soto)"single patient use only"WASTE: F/P - Black; E - Municipal Trash Bin Stable f or 28 days at room temperature.Expires in days from Date Start Date: 08/24/16 Stop Date: 08/28/16 Status: Discontinued insulin aspart 2 unit, 0.02 mL, Route: SUB-Q, Drug form: SOLN, TID-Before Meals, Dosing Weight 50, kg, PRN Blood Glucose Results, Start date: 08/24/16 18:07:00 [employer] [facility] [facility], Duration: 30 day, Stop date: 09/23/16 18:06:00 [facility] [facility] Notes: Roll in palms of hands gently; Do not shake vigorously. (Same as: NovoJACQUELIN Soto)"single patient use only"WASTE: F/P - Black; E - Municipal Trash Bin Stable f or 28 days at room temperature.Expires in days from Date Start Date: 08/24/16 Stop Date: 08/28/16 Status: Discontinued insulin aspart 5 unit, 0.05 mL, Route: SUB-Q, Drug form: SOLN, TID-Before Meals, Dosing Weight 50, kg, PRN Blood Glucose Results, Start date: 08/24/16 18:07:00 [facility] [facility], Duration: 30 day, Stop date: 09/23/16 18:06:00 [facility] [facility] Notes: Roll in palms of hands gently; Do not shake vigorously. (Same as: NovoJACQUELIN Soto)"single patient use only"WASTE: F/P - Black; E - Municipal Trash Bin Stable f or 28 days at room temperature.Expires in days from Date Start Date: 08/24/16 Stop Date: 08/28/16 Status: Discontinued insulin aspart 4 unit, 0.04 mL, Route: SUB-Q, Drug form: SOLN, TID-Before Meals, Dosing Weight 50, kg, PRN Blood Glucose Results, Start date: 08/24/16 18:07:00 [facility] [facility], Duration: 30 day, Stop date: 09/23/16 18:06:00 [facility] [facility] Notes: Roll in palms of hands gently; Do not shake vigorously. (Same as: NovoJACQUELIN Soto)"single patient use only"WASTE: F/P - Black; E - Municipal Trash Bin Stable f or 28 days at room temperature.Expires in days from Date Start Date: 08/24/16 Stop Date: 08/28/16 Status: Discontinued insulin aspart 1 unit, 0.01 mL, Route: SUB-Q, Drug form: SOLN, TID-Before Meals, Dosing Weight 50, kg, PRN Blood Glucose Results, Start date: 08/24/16 18:07:00 [employer] [facility] [facility], Duration: 30 day, Stop date: 09/23/16 18:06:00 [facility] [facility] Notes: Roll in palms of hands gently; Do not shake vigorously. (Same as: Mica Soto)"single patient use only"WASTE: F/P - Black; E - Municipal Trash Bin Stable f or 28 days at room temperature.Expires in days from Date Start Date: 08/24/16 Stop Date: 08/28/16 Status: Discontinued insulin isophane (NPH) 100 units/mL human recombinant subcutaneous suspension 5 unit, SUB-Q, Q12H, 0 Refill(s) Start Date: 09/10/16 Status: Suspended insulin isophane-NPH 5 unit, 0.05 mL, Route: SUB-Q, Drug form: INJ, Q12H, Dosing Weight 50, kg, Start date: 08/28/16 13:45:00 [employer] [facility] [facility], Stop date: 09/27/16 9:00:00 [facility] [facility] Notes: Roll in palms of hands gently; Do not shake vigorously. (Same as: Ramin n N)Do not hold insulin without contacting prescriberWASTE: F/P - Black; E - [place] Tr[place] Bin Stable for 28 days at room temperatureExpires in days f rom Date Start Date: 08/28/16 Stop Date: 09/10/16 Status: Discontinued Insulin regular 5 unit, 0.05 mL, Route: SUB-Q, Drug form: SOLN, Sliding Scale, Dosing Weight 50, kg, PRN Blood Glucose Results, Start date: 08/28/16 23:37:00 [employer] [facility], Duration: 30 day, Stop date: 09/27/16 23:36:00 [facility] [facility] Notes: (Same as: Humulin R) Roll in palms of hands gently; Do not shake vigorou sly. "single patient use only"(Restricted to patients requiring a dose > 60 units)WASTE: F/P - Black; E - Municipal Trash Bin Stable for 28 days at room temperatureExpires in days from Date Start Date: 08/28/16 Stop Date: 09/10/16 Status: Discontinued Insulin regular 4 unit, 0.04 mL, Route: SUB-Q, Drug form: SOLN, Sliding Scale, Dosing Weight 50, kg, PRN Blood Glucose Results, Start date: 08/28/16 23:37:00 [employer] [facility], Duration: 30 day, Stop date: 09/27/16 23:36:00 [facility] [facility] Notes: (Same as: Humulin R) Roll in palms of hands gently; Do not shake vigorou sly. "single patient use only"(Restricted to patients requiring a dose > 60 units)WASTE: F/P - Black; E - Municipal Trash Bin Stable for 28 days at room temperatureExpires in days from Date Start Date: 08/28/16 Stop Date: 09/10/16 Status: Discontinued Insulin regular 3 unit, 0.03 mL, Route: SUB-Q, Drug form: SOLN, Sliding Scale, Dosing Weight 50, kg, PRN Blood Glucose Results, Start date: 08/28/16 23:37:00 [facility] [facility], Duration: 30 day, Stop date: 09/27/16 23:36:00 [facility] Notes: (Same as: Humulin R) Roll in palms of hands gently; Do not shake vigorou sly. "single patient use only"(Restricted to patients requiring a dose > 60 units)WASTE: F/P - Black; E - Municipal Trash Bin Stable for 28 days at room temperatureExpires in days from Date Start Date: 08/28/16 Stop Date: 09/10/16 Status: Discontinued Insulin regular 2 unit, 0.02 mL, Route: SUB-Q, Drug form: SOLN, Sliding Scale, Dosing Weight 50, kg, PRN Blood Glucose Results, Start date: 08/28/16 23:37:00 [facility] [facility], Duration: 30 day, Stop date: 09/27/16 23:36:00 [facility] Notes: (Same as: Humulin R) Roll in palms of hands gently; Do not shake vigorou sly. "single patient use only"(Restricted to patients requiring a dose > 60 units)WASTE: F/P - Black; E - Municipal Trash Bin Stable for 28 days at room temperatureExpires in days from Date Start Date: 08/28/16 Stop Date: 09/10/16 Status: Discontinued Insulin regular 1 unit, 0.01 mL, Route: SUB-Q, Drug form: SOLN, Sliding Scale, Dosing Weight 50, kg, PRN Blood Glucose Results, Start date: 08/28/16 23:37:00 [facility], Duration: 30 day, Stop date: 09/27/16 23:36:00 [facility] Notes: (Same as: Humulin R) Roll in palms of hands gently; Do not shake vigorou sly. "single patient use only"(Restricted to patients requiring a dose > 60 units)WASTE: F/P - Black; E - Municipal Trash Bin Stable for 28 days at room temperatureExpires in days from Date Start Date: 08/28/16 Stop Date: 09/10/16 Status: Discontinued insulin regular 100 units/mL human recombinant 1 unit, SUB-Q, Sliding Scale, PRN Blood Glucose Results, 0 Refill(s) Start Date: 09/10/16 Status: Suspended insulin regular 100 units/mL human recombinant 5 unit, SUB-Q, Sliding Scale, PRN Blood Glucose Results, 0 Refill(s) Start Date: 09/10/16 Status: Suspended insulin regular 100 units/mL human recombinant 4 unit, SUB-Q, Sliding Scale, PRN Blood Glucose Results, 0 Refill(s) Start Date: 09/10/16 Status: Suspended insulin regular 100 units/mL human recombinant 3 unit, SUB-Q, Sliding Scale, PRN Blood Glucose Results, 0 Refill(s) Start Date: 09/10/16 Status: Suspended insulin regular 100 units/mL human recombinant 2 unit, SUB-Q, Sliding Scale, PRN Blood Glucose Results, 0 Refill(s) Start Date: 09/10/16 Status: Suspended loperamide 1 mg, 5 mL, Route: PO, Drug form: LIQ, Q6H, Dosing Weight 50, kg, PRN Diarrhea, Start date: 08/28/16 20:36:00 [facility], Duration: 30 day, Stop date: 09/27/16 20:35:0 0 [facility] Notes: Same as Imodium Start Date: 08/28/16 Stop Date: 09/10/16 Status: Discontinued magnesium oxide 400 mg, 1 tab, Route: PO, Drug form: TAB, TID, Dosing Weight 50, kg, Start date: 08/24/16 9:00:00 [facility] [facility], Duration: 30 day, Stop date: 09/22/16 17:00:00 [facility] Notes: (Same as: Mag-Ox 400)Magnesium oxide [id number] elemental magnesiumDose= ____mg magnesium oxide (___mg elemental magnesium) Start Date: 08/24/16 Stop Date: 08/28/16 Status: Discontinued magnesium sulfate 2 gm, 50 mL, Route: IVPB, Drug form: INJ, ONCE, Dosing Weight 50, kg, Start date : 09/04/16 8:04:00 [facility] [facility], Stop date: 09/04/16 8:04:00 [facility] Notes: WASTE: F/P - Sink; E - Municipal Trash Bin Start Date: 09/04/16 Stop Date: 09/04/16 Status: Completed magnesium sulfate 2 gm, 50 mL, Route: IVPB, Drug form: INJ, ONCE, Dosing Weight 50, kg, Start date : 09/06/16 8:04:00 [facility], Duration: 2 hr, Stop date: 09/06/16 8:04:00 [facility] Notes: WASTE: F/P - Sink; E - Municipal Trash Bin Start Date: 09/06/16 Stop Date: 09/06/16 Status: Completed magnesium sulfate 2 gm in Water 50 ml 2 gm, 50 mL, Route: IVPB, Drug form: INJ, ONCE, Dosing Weight 50, kg, Start date : 08/31/16 7:58:00 [facility], Duration: 2 hr, Stop date: 08/31/16 7:58:00 [facility] Notes: WASTE: F/P - Sink; E - Municipal Trash Bin Start Date: 08/31/16 Stop Date: 08/31/16 Status: Completed magnesium sulfate 2 gm in Water 50 ml 2 gm, 50 mL, Route: IVPB, Drug form: INJ, ONCE, Dosing Weight 50, kg, Start date : 09/02/16 7:46:00 [facility], Duration: 2 hr, Stop date: 09/02/16 7:46:00 [facility] Notes: WASTE: F/P - Sink; E - Municipal Trash Bin Start Date: 09/02/16 Stop Date: 09/02/16 Status: Completed Maxipime 1 gm, Route: IVPB, Drug form: INJ, [id number], Start date: 08/24/16 18:00:00 [facility], Du ration: 30 day, Stop date: 09/23/16 10:00:00 [facility] Notes: (Same As: Maxipime) MEDICATION WASTE Product Size: 1000 mgProduc t Wasted: ___ mg Start Date: 08/24/16 Stop Date: 09/03/16 Status: Discontinued melatonin 3 mg oral tablet 3 mg, 1 tab, Route: PO, Drug Form: TAB, Dosing Weight 50, kg, Bedtime, Start chely e: 09/05/16 21:44:00 [facility], Duration: 30 day, Stop date: 10/05/16 21:00:00 [facility] Notes: (Same as: Melatonin) Start Date: 09/05/16 Stop Date: 09/10/16 Status: Discontinued methimazole 10 mg, 1 tab, Route: PO, Drug form: TAB, Q8H, Dosing Weight 50, kg, Start date: 08/24/16 0:00:00 [facility], Duration: 30 day, Stop date: 09/22/16 16:00:00 [facility] Start Date: 08/24/16 Stop Date: 09/10/16 Status: Discontinued Austin 5/325 oral tablet 1 tab, Route: PO, Drug Form: TAB, Dosing Weight 50, kg, Q6H, PRN Pain Score 6-10 , FOR SEVERE PAIN, Start date: 09/05/16 11:28:00 [facility], Duration: 30 day, Stop chely e: 10/05/16 11:27:00 [facility] Notes: (Same as: Austin 325/5) Do not exceed 4gm/day of acetaminophen. Start Date: 09/05/16 Stop Date: 09/10/16 Status: Discontinued NS + KCL 20mEq/L 1000ml (Premix) 1,000 mL 1,000 mL, Rate: 125 ml/hr, Infuse over: 8 hr, Route: IV, Dosing Weight 50 kg, To seb Volume: 1,000, Start date: 08/26/16 8:09:00 [facility], Duration: 30 day, Stop date : 09/25/16 8:08:00 [facility] Notes: PREMIX IV - Do Not AlterWASTE: F/P - Sink; E - Municipal Trash Bin Start Date: 08/26/16 Stop Date: 09/07/16 Status: Discontinued ondansetron 4 mg, 2 mL, Route: IVP, Drug form: INJ, Q6H, Dosing Weight 50, kg, PRN Nausea, S tart date: 08/23/16 20:08:00 [facility], Duration: 30 day, Stop date: 09/22/16 20:07:00 [facility] Notes: (Same as: Sotero) MEDICATION WASTE Product Size: 4 mgProduct Was nakul: _0__ mg Start Date: 08/23/16 Stop Date: 09/10/16 Status: Discontinued pantoprazole 40 mg, Route: IVP, Drug form: INJ, Before Dinner, Dosing Weight 50, kg, Start da te: 08/24/16 16:30:00 [facility], Duration: 30 day, Stop date: 09/22/16 16:30:00 [facility] Notes: (Same as: Protonix) Start Date: 08/24/16 Stop Date: 09/10/16 Status: Discontinued PHOS-NaK 1 pkt, Route: PO, Drug Form: PDR/REC, Dosing Weight 50, kg, Q24H, Start date: 14:00:00 [facility], Duration: 7 day, Stop date: 09/08/16 14:00:00 [facility] Notes: (Same as: Phos-NaK) Each 1.5 gm pkt has 250mg phosphorous. Mix w/2.5oz w ater and stir. Start Date: 09/02/16 Stop Date: 09/06/16 Status: Discontinued PHOS-NaK 1 pkt, Route: PO, Drug Form: PDR/REC, Dosing Weight 50, kg, ONCE, Start date: 7:57:00 [facility], Stop date: 08/31/16 7:57:00 [facility] Notes: (Same as: Phos-NaK) Each 1.5 gm pkt has 250mg phosphorous. Mix w/2.5oz w ater and stir. Start Date: 08/31/16 Stop Date: 08/31/16 Status: Completed PHOS-NaK 1 pkt, Route: PO, Dosing Weight 50, kg, ONCE, Start date: 08/29/16 9:08:00 [facility], Stop date: 08/29/16 9:08:00 [facility] Start Date: 08/29/16 Stop Date: 08/29/16 Status: Discontinued potassium chloride 40 mEq, 30 mL, Route: PO, Drug form: LIQ, Daily, Dosing Weight 50, kg, Start chely e: 08/28/16 9:00:00 [facility], Duration: 30 day, Stop date: 09/26/16 9:00:00 [facility] Notes: (Same as: Potassium Chloride) Start Date: 08/28/16 Stop Date: 08/29/16 Status: Discontinued potassium chloride 20 mEq, 100 mL, Route: IVPB, Drug form: INJ, Q2H, Start date: 08/24/16 10:00:00 [facility], Duration: 2 doses or times, Stop date: 08/24/16 12:00:00 [facility] Notes: (Same as: KCL) Infuse no faster than 10 mEq/hr if given peripherally. Start Date: 08/24/16 Stop Date: 08/24/16 Status: Completed potassium chloride 10 mEq, Route: IVPB, Q1H, Dosing Weight 50, kg, Total Dose=40 meq, Start date: 0 08/24/16 9:00:00 [facility], Duration: 4 doses or times, Stop date: 08/24/16 12:00:00 CS T, Peripheral Line Start Date: 08/24/16 Stop Date: 08/24/16 Status: Deleted potassium chloride 10 mEq, Route: IVPB, Q1H, Dosing Weight 50, kg, Total Dose=40 meq, Start date: 0 08/27/16 8:00:00 [employer], Duration: 4 doses or times, Stop date: 08/27/16 11:00:00 CS T, Peripheral Line Start Date: 08/27/16 Stop Date: 08/27/16 Status: Deleted potassium chloride 20 mEq, 100 mL, Route: IVPB, Drug form: INJ, Q2H, Dosing Weight 50, kg, Total Do se=40 meq, Start date: 08/25/16 18:00:00 [employer], Duration: 2 doses or times, Stop d ate: 08/25/16 20:00:00 [employer], Peripheral Line Notes: (Same as: KCL) Infuse no faster than 10 mEq/hr if given peripherally. Start Date: 08/25/16 Stop Date: 08/25/16 Status: Completed potassium chloride 20 mEq, 100 mL, Route: IVPB, Q2H, Start date: 08/27/16 8:00:00 [employer], Duration: 2 doses or times, Stop date: 08/27/16 10:00:00 [employer] Notes: (Same as: KCL) Infuse no faster than 10 mEq/hr if given peripherally. Start Date: 08/27/16 Stop Date: 08/27/16 Status: Completed potassium chloride 20 mEq, 100 mL, Route: IVPB, Drug form: INJ, Q2H, Dosing Weight 50, kg, Total do se=60 mEq, Start date: 08/25/16 6:00:00 [employer], Duration: 3 doses or times, Stop da te: 08/25/16 10:00:00 [employer], Central Line Notes: (Same as: KCL) Infuse no faster than 10 mEq/hr if given peripherally. Start Date: 08/25/16 Stop Date: 08/25/16 Status: Completed potassium chloride 40 mEq, 2 tab, Route: PO, Drug form: ERTAB, ONCE, Dosing Weight 50, kg, Start da te: 08/26/16 16:31:00 [employer], Stop date: 08/26/16 16:31:00 [employer] Notes: (Same as: K-Dur 20)"Do Not Crush" With food and full glass of water Start Date: 08/26/16 Stop Date: 08/26/16 Status: Completed potassium chloride 40 mEq, 2 tab, Route: PO, Drug form: ERTAB, ONCE, Dosing Weight 50, kg, Start da te: 08/27/16 7:36:00 [employer], Stop date: 08/27/16 7:36:00 [employer] Notes: (Same as: K-Dur 20)"Do Not Crush" With food and full glass of water Start Date: 08/27/16 Stop Date: 08/27/16 Status: Deleted potassium chloride 10 mEq, 50 mL, Route: IVPB, Drug form: INJ, Q1H, Dosing Weight 50, kg, Total Dos e=40 meq, Start date: 08/26/16 9:00:00 [employer], Duration: 4 doses or times, Stop chely e: 08/26/16 12:00:00 [employer], Peripheral Line Notes: (Same as: KCL) Start Date: 08/26/16 Stop Date: 08/26/16 Status: Completed potassium chloride 40 mEq, 30 mL, Route: PO, Drug form: LIQ, ONCE, Dosing Weight 50, kg, Start date : 08/27/16 9:30:00 [employer], Stop date: 08/27/16 9:30:00 [employer] Notes: (Same as: Potassium Chloride) Start Date: 08/27/16 Stop Date: 08/27/16 Status: Completed potassium chloride 20 mEq/15 mL oral liquid 40 mEq, 30 mL, Route: PO, Drug form: LIQ, Daily, Dosing Weight 50, kg, Start chely e: 08/24/16 9:00:00 [employer], Duration: 30 day, Stop date: 09/22/16 9:00:00 [employer] Notes: (Same as: Potassium Chloride) Start Date: 08/24/16 Stop Date: 08/24/16 Status: Canceled potassium phosphate + sodium chloride 0.9% INJ 250 mL 45 mmol, 15 mL, Route: IVPB, ONCE, Dosing Weight 50, kg, Start date: 08/28/16 7: 56:00 [employer], Stop date: 08/28/16 7:56:00 [employer] Notes: (Same as: K Phosphate.) 1 mMol phoshate has 1.47 mEq potassium Infuse o chriss 4 hours Start Date: 08/28/16 Stop Date: 08/28/16 Status: Completed potassium phosphate + sodium chloride 0.9% INJ 250 mL 30 mmol, 10 mL, Route: IV, ONCE, Start date: 08/29/16 10:30:00 [employer], Stop date: 0 08/29/16 10:30:00 [employer] Notes: (Same as: K Phosphate.) 1 mMol phoshate has 1.47 mEq potassium Infuse o chriss 4 hours Start Date: 08/29/16 Stop Date: 08/29/16 Status: Completed potassium phosphate + sodium chloride 0.9% INJ 250 mL 15 mmol, 5 mL, Route: IVPB, ONCE, Dosing Weight 50, kg, Start date: 09/02/16 7:4 7:00 [employer], Stop date: 09/02/16 7:47:00 [employer] Notes: (Same as: K Phosphate.) 1 mMol phoshate has 1.47 mEq potassium Infuse o chriss 4 hours Start Date: 09/02/16 Stop Date: 09/02/16 Status: Completed propranolol 20 mg, 1 tab, Route: PO, Drug form: TAB, TID, Dosing Weight 50, kg, Start date: 08/24/16 9:00:00 [employer], Duration: 30 day, Stop date: 09/22/16 17:00:00 [employer] Notes: Give with food.(Same as: Inderal) Start Date: 08/24/16 Stop Date: 09/10/16 Status: Discontinued sodium chloride 0.9% 1000 ml INJ 1,000 mL 1,000 mL, Rate: 150 ml/hr, Infuse over: 6.7 hr, Route: IV, Dosing Weight 50 kg, Total Volume: 1,000, Start date: 08/24/16 18:01:00 [employer], Duration: 30 day, Stop d ate: 09/23/16 18:00:00 [employer] Start Date: 08/24/16 Stop Date: 08/26/16 Status: Discontinued sterile water 2.2 mL, Route: MISC, Drug Form: INJ, PRN, PRN Other -See Comment, Start date: 11:01:00 [employer], Duration: 1 day, Stop date: 08/31/16 11:00:00 [employer] Start Date: 08/30/16 Stop Date: 08/31/16 Status: Completed tramadol 50 mg oral tablet 50 mg, 1 tab, Route: PO, Drug form: TAB, Q4H, Dosing Weight 50, kg, PRN Pain Sco re 1-3, Start date: 09/05/16 10:48:00 [employer], Duration: 30 day, Stop date: 10/05/16 10:47:00 [employer] Notes: Not to exceed 400mg/day. (Same As: Ultram) Start Date: 09/05/16 Stop Date: 09/10/16 Status: Discontinued tramadol 50 mg oral tablet 50 mg=1 tab, PO, Q4H, PRN Pain Score 1-3, 0 Refill(s) Start Date: 09/10/16 Status: Suspended vancomycin + sodium chloride 0.9% INJ 250 mL 1.25 gm, Route: IVPB, [id number], Dosing Weight 50, kg, Start date: 08/23/16 21:00:0 0 [employer], Stop date: 09/22/16 17:00:00 [employer] Notes: TIME CRITICAL MEDICATION(Same As: Vancocin)Infusion rate< 1000 mg: infuse over 1 [id number] - 1500 mg: infuse over 1.5 hoursVancomycin FOR IV SET [id number] - 2000 mg: infuse over 2 hours> 2001 mg: infuse over 2.5 hours MEDICATION WASTE Product Size: 1000 mgProduct Wasted: ___ mg Start Date: 08/23/16 Stop Date: 09/03/16 Status: Discontinued Results ELECTROLYTES 1 2 3 Most recent to oldest [Reference Range]: 137 mEq/L (09/07/16 4:43 AM) 138 mEq/L (09/06/16 4:07 AM) 136 mEq/L (09/05/16 3:36 AM) Sodium Lvl [135-145 mEq/L] 3.8 mEq/L (09/07/16 4:43 AM) 3.8 mEq/L (09/06/16 4:07 AM) 4.0 mEq/L (09/05/16 3:36 AM) Potassium Lvl [3.5-5.1 mEq/L] 3.0 mEq/L 1 *CRIT* (08/25/16 3:33 PM) Potassium WB [3.5-5.1 mEq/L] 103 mEq/L (09/07/16 4:43 AM) 100 mEq/L (09/06/16 4:07 AM) 100 mEq/L (09/05/16 3:36 AM) Chloride Lvl [95-109 mEq/L] 28 mEq/L (09/07/16 4:43 AM) 27 mEq/L (09/06/16 4:07 AM) 28 mEq/L (09/05/16 3:36 AM) CO2 [24-32 mEq/L] 9.8 mEq/L *LOW* (09/07/16 4:43 AM) 14.8 mEq/L (09/06/16 4:07 AM) 12.0 mEq/L (09/05/16 3:36 AM) AGAP [10.0-20.0 mEq/L] 1Result Comment: CRITICAL RESULT CALLED TO ARPAN DOSS AT 08/25/2016 16:13 BY [facility]. READ BACK OK. CHEM PANEL 1 2 3 Most recent to oldest [Reference Range]: 0.21 mg/dL *LOW* (09/07/16 4:43 AM) 0.18 mg/dL *LOW* (09/06/16 4:07 AM) 0.19 mg/dL *LOW* (09/05/16 3:36 AM) Creatinine Lvl [0.50-1.40 mg/dL] 161 mL/min/1.73m2 1 *NA* (09/07/16 4:43 AM) 169 mL/min/1.73m2 2 *NA* (09/06/16 4:07 AM) 166 mL/min/1.73m2 3 *NA* (09/05/16 3:36 AM) eGFR 9 mg/dL (09/07/16 4:43 AM) 11 mg/dL (09/06/16 4:07 AM) 10 mg/dL (09/05/16 3:36 AM) BUN [7-22 mg/dL] 28 *HI* (08/31/16 5:19 AM) 26 *HI* (08/24/16 3:32 AM) B/C Ratio [6-25] 100 mg/dL *HI* (09/07/16 4:43 AM) 84 mg/dL (09/06/16 4:07 AM) 101 mg/dL *HI* (09/05/16 3:36 AM) Glucose Lvl [70-99 mg/dL] 7.0 g/dL (08/31/16 5:19 AM) 8.2 g/dL (08/24/16 3:32 AM) Total Protein [6.4-8.4 g/dL] 2.1 g/dL *LOW* (08/31/16 5:19 AM) 2.7 g/dL *LOW* (08/24/16 3:32 AM) Albumin Lvl [3.5-5.0 g/dL] 4.9 g/dL *HI* (08/31/16 5:19 AM) 5.5 g/dL *HI* (08/24/16 3:32 AM) Globulin [2.7-4.2 g/dL] 0.4 *LOW* (08/31/16 5:19 AM) 0.5 *LOW* (08/24/16 3:32 AM) A/G Ratio [0.7-1.6] 8.6 mg/dL (09/07/16 4:43 AM) 9.6 mg/dL (09/06/16 4:07 AM) 9.2 mg/dL (09/05/16 3:36 AM) Calcium Lvl [8.5-10.5 mg/dL] 3.3 mg/dL (09/05/16 3:36 AM) 3.0 mg/dL (09/04/16 3:54 AM) 2.4 mg/dL *LOW* (09/02/16 4:43 AM) Phosphorus [2.5-4.5 mg/dL] 1.9 mg/dL (09/07/16 4:43 AM) 1.7 mg/dL *LOW* (09/06/16 4:07 AM) 1.8 mg/dL (09/05/16 3:36 AM) Magnesium Lvl [1.8-2.4 mg/dL] 17 unit/L (08/31/16 5:19 AM) 14 unit/L (08/24/16 3:32 AM) ALT [0-65 unit/L] 17 unit/L (08/31/16 5:19 AM) 20 unit/L (08/24/16 3:32 AM) AST [0-37 unit/L] 177 unit/L *HI* (08/31/16 5:19 AM) 202 unit/L *HI* (08/24/16 3:32 AM) Alk Phos [39-136 unit/L] 0.3 mg/dL (08/31/16 5:19 AM) 0.5 mg/dL (08/24/16 3:32 AM) Bili Total [0.2-1.3 mg/dL] 246 unit/L (09/06/16 4:07 AM) Lipase Lvl [73-393 unit/L] 1Result Comment: The eGFR is calculated using [...] be mul tiplied by the estimated BMI. TOXICOLOGY 1 2 3 Most recent to oldest [Reference Range]: 0830 *NA* (09/01/16 10:01 AM) 1630 *NA* (08/28/16 4:52 PM) 0830 *NA* (08/25/16 8:42 AM) Abe Ren TND 15.4 ug/ml *NA* (09/01/16 10:01 AM) 15.4 ug/ml *NA* (08/28/16 4:52 PM) 16.8 ug/ml *NA* (08/25/16 8:42 AM) Abe Ren URINE CHEM 1 2 3 Most recent to oldest [Reference Range]: 83 mEq/L *NA* (08/26/16 5:24 PM) U Sodium 13.8 mEq/L *NA* (08/26/16 5:24 PM) U Potassium 96 mEq/L *NA* (08/26/16 5:24 PM) U Chloride Negative (08/25/16 12:39 AM) U Preg [Negative] HEMATOLOGY 1 2 3 Most recent to oldest [Reference Range]: 4.7 K/CMM (09/06/16 4:07 AM) 4.2 K/CMM (09/02/16 4:43 AM) 4.7 K/CMM (08/31/16 5:19 AM) WBC [3.7-10.4 K/CMM] 3.60 M/CMM *LOW* (09/06/16 4:07 AM) 3.13 M/CMM *LOW* (09/02/16 4:43 AM) 3.12 M/CMM *LOW* (08/31/16 5:19 AM) RBC [4.20-5.40 M/CMM] 10.7 g/dL *LOW* (09/06/16 4:07 AM) 9.3 g/dL *LOW* (09/02/16 4:43 AM) 9.1 g/dL *LOW* (08/31/16 5:19 AM) Hgb [12.0-16.0 g/dL] 31.7 % *LOW* (09/06/16 4:07 AM) 28.0 % *LOW* (09/02/16 4:43 AM) 27.7 % *LOW* (08/31/16 5:19 AM) Hct [36.0-48.0 %] 87.9 fL (09/06/16 4:07 AM) 89.5 fL (09/02/16 4:43 AM) 88.8 fL (08/31/16 5:19 AM) MCV [80.0-98.0 fL] 29.7 pg (09/06/16 4:07 AM) 29.9 pg (09/02/16 4:43 AM) 29.3 pg (08/31/16 5:19 AM) MCH [27.0-31.0 pg] 33.8 g/dL (09/06/16 4:07 AM) 33.4 g/dL (09/02/16 4:43 AM) 33.0 g/dL (08/31/16 5:19 AM) MCHC [32.0-36.0 g/dL] 16.4 % *HI* (09/06/16 4:07 AM) 16.6 % *HI* (09/02/16 4:43 AM) 16.4 % *HI* (08/31/16 5:19 AM) RDW [11.5-14.5 %] 262 K/CMM (09/06/16 4:07 AM) 163 K/CMM (09/02/16 4:43 AM) 141 K/CMM (08/31/16 5:19 AM) Platelet [133-450 K/CMM] 11.4 fL *HI* (09/06/16 4:07 AM) 12.0 fL *HI* (09/02/16 4:43 AM) 11.8 fL *HI* (08/31/16 5:19 AM) MPV [7.4-10.4 fL] 51.2 % (09/06/16 4:07 AM) 58.4 % (09/02/16 4:43 AM) 67.4 % (08/31/16 5:19 AM) Segs [45.0-75.0 %] 31.3 % (09/06/16 4:07 AM) 25.1 % (09/02/16 4:43 AM) 19.4 % *LOW* (08/31/16 5:19 AM) Lymphocytes [20.0-40.0 %] 9.2 % (09/06/16 4:07 AM) 11.0 % (09/02/16 4:43 AM) 9.6 % (08/31/16 5:19 AM) Monocytes [2.0-12.0 %] 7.4 % *HI* (09/06/16 4:07 AM) 4.6 % *HI* (09/02/16 4:43 AM) 2.9 % (08/31/16 5:19 AM) Eosinophils [0.0-4.0 %] 0.9 % (09/06/16 4:07 AM) 0.9 % (09/02/16 4:43 AM) 0.7 % (08/31/16 5:19 AM) Basophils [0.0-1.0 %] 2.4 K/CMM (09/06/16 4:07 AM) 2.4 K/CMM (09/02/16 4:43 AM) 3.2 K/CMM (08/31/16 5:19 AM) Segs-Bands # [1.5-8.1 K/CMM] 1.5 K/CMM (09/06/16 4:07 AM) 1.0 K/CMM (09/02/16 4:43 AM) 0.9 K/CMM *LOW* (08/31/16 5:19 AM) Lymphocytes # [1.0-5.5 K/CMM] 0.4 K/CMM (09/06/16 4:07 AM) 0.5 K/CMM (09/02/16 4:43 AM) 0.4 K/CMM (08/31/16 5:19 AM) Monocytes # [0.0-0.8 K/CMM] 0.3 K/CMM (09/06/16 4:07 AM) 0.2 K/CMM (09/02/16 4:43 AM) 0.1 K/CMM (08/31/16 5:19 AM) Eosinophils # [0.0-0.5 K/CMM] 16.1 seconds *HI* (08/24/16 3:32 AM) PT [12.0-14.7 seconds] 1.26 *HI* (08/24/16 3:32 AM) INR [0.85-1.17] 32.8 seconds (08/24/16 3:32 AM) PTT [22.9-35.8 seconds] TUMOR MARKERS 1 2 3 Most recent to oldest [Reference Range]: 62.9 unit/mL *HI* (08/25/16 2:54 AM) CA 125 [0.0-35.0 unit/mL] MOLECULAR DIAGNOSTIC 1 2 3 Most recent to oldest [Reference Range]: Negative (08/28/16 10:45 AM) C difficile DNA [Negative] Immunizations Not Given Vaccine Date Status Refusal Reason influenza virus vaccine, inactivated 07/30/16 Not Given Patient Refuses pneumococcal 23-valent vaccine 07/30/16 Not Given Patient Refuses pneumococcal 23-valent vaccine 06/20/16 Not Given Patient Refuses Procedures Procedure Date Related Diagnosis Body Site Image-guided fluid collection drainage by 08/27/16 catheter (eg, abscess, hematoma, seroma, lymphocele, cyst); peritoneal or retroperitoneal, percutaneous Cholecystectomy 07/29/16 Tubal ligation Social History Social History Type Response Substance Abuse Use: None. Sexual Sexually active: Yes. Alcohol Never Smoking Status Former smoker; Ready to change: No; Concerns about tobacco use in household: No; Exposure to Tobacco Smoke None; Cigarette Smoking Last 365 Days No; Reg Smoking Cessation Counseling No Assessment and Plan Extracted from: Title: Hospitalist Progress Note Author: Bree Vences MD Date: 09/10/16 Assessment/Plan 1. Cholangitis -Patient completed 10 day course of IV antimicrobials. -Patient has abdominaldrain in place with persistent drainage - flushing drain [id number] 2.Acute pancreatitis: Post ERCP in patientwith choledocholithiasis [...] NPH insulin with good glycemic control - david mchugh 6.Severe malnutrition -Nutrition via nasojejunal tube primarily buton clear liquid diet as tolerated 7. Hyperthyroidism: -Continue methimazoleas per home dosage Prophylaxis lovenox Disposition transfert back to [facility]
--- OUTSIDE RECORDS SUMMARY | 2019-02-11 16:46 | XMS REPORT | Summary of Care ---
Author Author [facility] Organization [facility] Address Unknown Phone Unavailable Encounter [facility] [place](JOSEPH) [id number] Date(s): 08/17/16 - 08/23/16 [facility] [address] [place] [address]- Discharge Disposition: Other Healthcare Facility Attending Physician: Tim Edmonds DO Admitting Physician: Tim Edmonds DO Vital Signs 1 2 3 Most recent to oldest [Reference Range]: 154.94 cm (08/17/16 7:49 PM) Height 50.955 kg (08/22/16 6:10 AM) 50.909 kg (08/21/16 4:25 AM) Current Weight 98.2 DegF (08/23/16 3:44 PM) 98.1 DegF (08/23/16 11:52 AM) 100.2 DegF *HI* (08/23/16 7:25 AM) Temperature Oral [96.4-99.1 DegF] 108/72 mmHg (08/23/16 5:00 PM) 100/81 mmHg (08/23/16 4:00 PM) 124/90 mmHg (08/23/16 3:00 PM) Blood Pressure [90-140/60-90 mmHg] 21 BRMIN *HI* (08/23/16 6:00 PM) 21 BRMIN *HI* (08/23/16 5:00 PM) 21 BRMIN *HI* (08/23/16 4:00 PM) Respiratory Rate [14-20 BRMIN] 150 bpm *HI* (08/20/16 8:22 PM) 147 bpm *HI* (08/20/16 4:16 PM) 125 bpm *HI* (08/20/16 11:51 AM) Peripheral Pulse Rate [60-100 bpm] 50.909 kg (08/21/16 12:01 AM) 51.165 kg (08/17/16 7:49 PM) Weight 21.31 m2 (08/17/16 7:49 PM) Body Mass Index Problem List Condition Effective Dates Status Health Status Informant Diabetes(Confirmed) Resolved Gallbladder Resolved disease(Confirmed) Goiter(Confirmed) Resolved Heartburn(Confirmed) Resolved MRSA(Confirmed)1, 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 Allergies, Adverse Reactions, Alerts Substance Reaction Severity Status ciprofloxacin Active Keflex Active Medications WAIT for vanc trough draw on 08/22 AM WAIT for vanc trough draw on 08/22 AM, reminder, Drug form: MISC, Route: MISC, ONCE, 08/22/16 9:00:00 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F, Stop date: 08/22/16 9:00:00 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F Start Date: 08/22/16 Stop Date: 08/22/16 Status: Completed *RN - PLEASE DO NOT GIVE VANCO UNTIL TROUGH IS DRAWN * *RN - PLEASE DO NOT GIVE VANCO UNTIL TROUGH IS DRAWN *, REMINDER, Drug form: MIS C, Route: MISC, Daily, 08/18/16 23:00:00 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F, Duration: 2 hr, Stop date: 7 23:00:00 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F Start Date: 08/18/16 Stop Date: 08/18/16 Status: Completed acetaminophen 650 mg, 20.3 mL, Route: PO, Drug form: LIQ, Q6H, Dosing Weight 51.165, kg, PRN F or Temp > 100.4 F, Start date: 08/17/16 21:05:00 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F, Duration: 30 day, Stop date: 09/16/16 21:04:00 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F Notes: Max tinykrchbwhgc=4249ic/day (4 gm/day). (Same as: Tylenol) Start Date: 08/17/16 Stop Date: 08/23/16 Status: Discontinued cefepime + sodium chloride 0.9% INJ 100 mL 1 gm, Route: IVPB, [id number], Dosing Weight 51.165, kg, Start date: 08/18/16 4:00: 00 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F, Stop date: 09/16/16 16:00:00 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F Notes: (Same As: Maxipime) MEDICATION WASTE Product Size: 1000 mgProduc t Wasted: ___ mg Start Date: 08/18/16 Stop Date: 08/23/16 Status: Discontinued D5W 1/2NS + KCL 40mEq/L 1000ml (Premix) 1,000 mL 1,000 mL, Rate: 75 ml/hr, Infuse over: 13.3 hr, Route: IV, Dosing Weight 50.909 kg, Total Volume: 1,000, Start date: 08/22/16 7:00:00 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F, Duration: 30 day, Sto p date: 09/21/16 6:59:00 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F Notes: PREMIX IV - Do Not AlterWASTE: F/P - Sink; E - Municipal Trash Bin Start Date: 08/22/16 Stop Date: 08/23/16 Status: Discontinued D5W 1/2NS 1,000 mL 1,000 mL, Rate: 75 ml/hr, Infuse over: 13.3 hr, Route: IV, Dosing Weight 51.165 kg, Total Volume: 1,000, Start date: 08/18/16 19:47:00 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F, Stop date: 09/17/16 19:46:00 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F Start Date: 08/18/16 Stop Date: 08/22/16 Status: Discontinued Dextrose 50% Syringe 12.5 gm, 25 mL, Route: IVP, Drug Form: INJ, Dosing Weight 51.165, kg, PRN, PRN B lood Glucose Results, Start date: 08/17/16 21:09:00 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F, Duration: 30 day, Stop date: 09/16/16 21:08:00 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F Start Date: 08/17/16 Stop Date: 08/20/16 Status: Discontinued Dextrose 50% Syringe 25 gm, 50 mL, Route: IVP, Drug Form: INJ, Dosing Weight 51.165, kg, PRN, PRN Blo od Glucose Results, Start date: 08/17/16 21:09:00 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F, Duration: 30 day, Stop da te: 09/16/16 21:08:00 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F Start Date: 08/17/16 Stop Date: 08/20/16 Status: Discontinued Dextrose 50% Syringe 12.5 gm, 25 mL, Route: IVP, Drug Form: INJ, Dosing Weight 51.165, kg, PRN, PRN B lood Glucose Results, Start date: 08/20/16 16:32:00 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F, Duration: 30 day, Stop date: 09/19/16 16:31:00 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F Start Date: 08/20/16 Stop Date: 08/23/16 Status: Discontinued Dextrose 50% Syringe 25 gm, 50 mL, Route: IVP, Drug Form: INJ, Dosing Weight 51.165, kg, PRN, PRN Blo od Glucose Results, Start date: 08/20/16 16:32:00 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F, Duration: 30 day, Stop da te: 09/19/16 16:31:00 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F Start Date: 08/20/16 Stop Date: 08/23/16 Status: Discontinued Dilaudid 0.5 mg, 0.5 mL, Route: IV, Drug form: INJ, Q3H, Dosing Weight 51.165, kg, PRN Pa in Score 4-6, Start date: 08/18/16 2:18:00 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F, Duration: 30 day, Stop date: 2:17:00 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F Start Date: 08/18/16 Stop Date: 08/23/16 Status: Discontinued Dilaudid 0.5 mg, 0.5 mL, Route: IVP, Drug form: INJ, Q4H, Dosing Weight 51.165, kg, PRN P ain Score 7-10, Start date: 08/17/16 21:13:00 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F, Duration: 30 day, Stop date: 09/16/16 21:12:00 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F Start Date: 08/17/16 Stop Date: 08/18/16 Status: Discontinued glucagon 1 mg, Route: IM, Drug form: PDR/INJ, PRN, Dosing Weight 51.165, kg, PRN Blood Gl ucose Results, Start date: 08/17/16 21:09:00 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F, Duration: 30 day, Stop date: 0 09/16/16 21:08:00 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F Start Date: 08/17/16 Stop Date: 08/20/16 Status: Discontinued glucagon 1 mg, Route: IM, Drug form: PDR/INJ, PRN, Dosing Weight 51.165, kg, PRN Blood Gl ucose Results, Start date: 08/20/16 16:32:00 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F, Duration: 30 day, Stop date: 0 09/19/16 16:31:00 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F Start Date: 08/20/16 Stop Date: 08/23/16 Status: Discontinued hydromorphone 100 mg/100 mL-NaCl 0.9% intravenous solution 0.5 mg=0.5 mL, IV, Q3H, PRN Pain Score 4-6, 0 Refill(s) Start Date: 08/23/16 Status: Suspended insulin aspart 2 unit, 0.02 mL, Route: SUB-Q, Drug form: SOLN, TID-Before Meals, Dosing Weight 51.165, kg, PRN Blood Glucose Results, Start date: 08/17/16 21:09:00 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F, Durati on: 30 day, Stop date: 09/16/16 21:08:00 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F Notes: Roll in palms of hands gently; Do not shake vigorously. (Same as: Mica Soto)"single patient use only"WASTE: F/P - Black; E - Municipal Trash Bin Stable f or 28 days at room temperature.Expires in days from Date Start Date: 08/17/16 Stop Date: 08/20/16 Status: Discontinued insulin aspart 8 unit, 0.08 mL, Route: SUB-Q, Drug form: SOLN, TID-Before Meals, Dosing Weight 51.165, kg, PRN Blood Glucose Results, Start date: 08/17/16 21:09:00 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F, Durati on: 30 day, Stop date: 09/16/16 21:08:00 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F Notes: Roll in palms of hands gently; Do not shake vigorously. (Same as: Mica Soto)"single patient use only"WASTE: F/P - Black; E - Municipal Trash Bin Stable f or 28 days at room temperature.Expires in days from Date Start Date: 08/17/16 Stop Date: 08/20/16 Status: Discontinued insulin aspart 6 unit, 0.06 mL, Route: SUB-Q, Drug form: SOLN, TID-Before Meals, Dosing Weight 51.165, kg, PRN Blood Glucose Results, Start date: 08/17/16 21:09:00 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F, Durati on: 30 day, Stop date: 09/16/16 21:08:00 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F Notes: Roll in palms of hands gently; Do not shake vigorously. (Same as: NovoJACQUELIN G)"single patient use only"WASTE: F/P - Black; E - Municipal Trash Bin Stable f or 28 days at room temperature.Expires in days from Date Start Date: 08/17/16 Stop Date: 08/20/16 Status: Discontinued insulin aspart 10 unit, 0.1 mL, Route: SUB-Q, Drug form: SOLN, TID-Before Meals, Dosing Weight 51.165, kg, PRN Blood Glucose Results, Start date: 08/17/16 21:09:00 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F, Durati on: 30 day, Stop date: 09/16/16 21:08:00 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F Notes: Roll in palms of hands gently; Do not shake vigorously. (Same as: NovoJACQUELIN G)"single patient use only"WASTE: F/P - Black; E - Municipal Trash Bin Stable f or 28 days at room temperature.Expires in days from Date Start Date: 08/17/16 Stop Date: 08/20/16 Status: Discontinued insulin aspart 4 unit, 0.04 mL, Route: SUB-Q, Drug form: SOLN, TID-Before Meals, Dosing Weight 51.165, kg, PRN Blood Glucose Results, Start date: 08/17/16 21:09:00 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F, Durati on: 30 day, Stop date: 09/16/16 21:08:00 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F Notes: Roll in palms of hands gently; Do not shake vigorously. (Same as: NovoLO G)"single patient use only"WASTE: F/P - Black; E - Municipal Trash Bin Stable f or 28 days at room temperature.Expires in days from Date Start Date: 08/17/16 Stop Date: 08/20/16 Status: Discontinued insulin aspart 10 unit, 0.1 mL, Route: SUB-Q, Drug form: SOLN, Sliding Scale, Dosing Weight 51. 165, kg, PRN Blood Glucose Results, Start date: 08/20/16 16:32:00 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F, Duration: 30 day, Stop date: 09/19/16 16:31:00 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F Notes: Roll in palms of hands gently; Do not shake vigorously. (Same as: NovoJACQUELIN Soto)"single patient use only"WASTE: F/P - Black; E - Municipal Trash Bin Stable f or 28 days at room temperature.Expires in days from Date Start Date: 08/20/16 Stop Date: 08/23/16 Status: Discontinued insulin aspart 2 unit, 0.02 mL, Route: SUB-Q, Drug form: SOLN, Sliding Scale, Dosing Weight 51. 165, kg, PRN Blood Glucose Results, Start date: 08/20/16 16:32:00 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F, Duration: 30 day, Stop date: 09/19/16 16:31:00 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F Notes: Roll in palms of hands gently; Do not shake vigorously. (Same as: Mica Soto)"single patient use only"WASTE: F/P - Black; E - Municipal Trash Bin Stable f or 28 days at room temperature.Expires in days from Date Start Date: 08/20/16 Stop Date: 08/23/16 Status: Discontinued insulin aspart 6 unit, 0.06 mL, Route: SUB-Q, Drug form: SOLN, Sliding Scale, Dosing Weight 51. 165, kg, PRN Blood Glucose Results, Start date: 08/20/16 16:32:00 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F, Duration: 30 day, Stop date: 09/19/16 16:31:00 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F Notes: Roll in palms of hands gently; Do not shake vigorously. (Same as: NovoJACQUELIN Soto)"single patient use only"WASTE: F/P - Black; E - Municipal Trash Bin Stable f or 28 days at room temperature.Expires in days from Date Start Date: 08/20/16 Stop Date: 08/23/16 Status: Discontinued insulin aspart 8 unit, 0.08 mL, Route: SUB-Q, Drug form: SOLN, Sliding Scale, Dosing Weight 51. 165, kg, PRN Blood Glucose Results, Start date: 08/20/16 16:32:00 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F, Duration: 30 day, Stop date: 09/19/16 16:31:00 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F Notes: Roll in palms of hands gently; Do not shake vigorously. (Same as: Mica Soto)"single patient use only"WASTE: F/P - Black; E - Municipal Trash Bin Stable f or 28 days at room temperature.Expires in days from Date Start Date: 08/20/16 Stop Date: 08/23/16 Status: Discontinued insulin aspart 4 unit, 0.04 mL, Route: SUB-Q, Drug form: SOLN, Sliding Scale, Dosing Weight 51. 165, kg, PRN Blood Glucose Results, Start date: 08/20/16 16:32:00 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F, Duration: 30 day, Stop date: 09/19/16 16:31:00 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F Notes: Roll in palms of hands gently; Do not shake vigorously. (Same as: Mica Soto)"single patient use only"WASTE: F/P - Black; E - Municipal Trash Bin Stable f or 28 days at room temperature.Expires in days from Date Start Date: 08/20/16 Stop Date: 08/23/16 Status: Discontinued insulin detemir 10 unit, 0.1 mL, Route: SUB-Q, Drug form: INJ, Q12H, Dosing Weight 51.165, kg, S tart date: 08/17/16 22:00:00 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F, Duration: 30 day, Stop date: 09/16/16 21:00:00 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F Notes: Same as Alysha not hold insulin without contacting prescriberWASTE: F/ P - Black; E - Municipal Trash Bin "single patient use only" Start Date: 08/17/16 Stop Date: 08/20/16 Status: Discontinued Lovenox 40 mg, 0.4 mL, Route: SUB-Q, Drug form: INJ, [id number], Dosing Weight 51.165, kg, Start date: 08/17/16 22:00:00 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F, Duration: 30 day, Stop date: 09/15/16 22:00: 00 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F Notes: (Same as: Lovenox) Start Date: 08/17/16 Stop Date: 08/23/16 Status: Discontinued magnesium sulfate 2 g/50 mL-sterile water intravenous solution 2 gm=50 mL, IV, ONCE, 0 Refill(s) Start Date: 08/23/16 Status: Suspended magnesium sulfate 2 gm in Water 50 ml 2 gm, 50 mL, Route: IV, Drug form: INJ, ONCE, Dosing Weight 50.909, kg, Start da te: 08/23/16 14:32:00 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F, Stop date: 08/23/16 14:32:00 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F Notes: WASTE: F/P - Sink; E - Municipal Trash Bin Start Date: 08/23/16 Stop Date: 08/23/16 Status: Completed methimazole 10 mg, 1 tab, Route: PO, Drug form: TAB, Q8H, Dosing Weight 51.165, kg, Start da te: 08/18/16 0:00:00 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F, Duration: 30 day, Stop date: 09/16/16 16:00:00 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F Start Date: 08/18/16 Stop Date: 08/23/16 Status: Discontinued metoprolol 5 mg/5 ml INJ 5 mg, 5 mL, Route: IV, Drug form: INJ, ONCE, Dosing Weight 51.165, kg, Start chely e: 08/18/16 19:47:00 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F, Stop date: 08/18/16 19:47:00 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F Notes: (Same as: Lopressor)Push over 2 minutes Start Date: 08/18/16 Stop Date: 08/18/16 Status: Completed metoprolol 5 mg/5 ml INJ 5 mg, 5 mL, Route: IVP, Drug form: INJ, Q6H, Dosing Weight 51.165, kg, Hold if s BP<100 or HR<60, Start date: 08/20/16 10:00:00 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F, Duration: 30 day, Stop date: 09/19/16 4:00:00 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F Notes: (Same as: Lopressor)Push over 2 minutes Start Date: 08/20/16 Stop Date: 08/20/16 Status: Discontinued metoprolol 5 mg/5 ml INJ 5 mg, 5 mL, Route: IVP, Drug form: INJ, Q4H, Dosing Weight 51.165, kg, Start chely e: 08/20/16 20:00:00 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F, Duration: 30 day, Stop date: 09/19/16 16:00:00 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F Notes: (Same as: Lopressor)Push over 2 minutes Start Date: 08/20/16 Stop Date: 08/21/16 Status: Discontinued metoprolol tartrate 25 mg, 1 tab, Route: PO, Drug form: TAB, Q12H, Dosing Weight 51.165, kg, Start d ate: 08/17/16 22:00:00 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F, Duration: 30 day, Stop date: 09/16/16 21:00:00 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F Notes: (Same as: Lopressor) Start Date: 08/17/16 Stop Date: 08/20/16 Status: Discontinued morphine Sulfate 2 mg=0.5 mL, IV, Q4H, PRN Pain Score 4-6, 0 Refill(s) Start Date: 08/23/16 Status: Suspended morphine Sulfate 2 mg, 0.5 mL, Route: IV, Drug form: SOLN, Q4H, Dosing Weight 51.165, kg, PRN Clarissa n Score 4-6, Start date: 08/17/16 20:13:00 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F, Duration: 30 day, Stop date: 20:12:00 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F Notes: (Same as:MORPhine Sulfate) Start Date: 08/17/16 Stop Date: 08/23/16 Status: Discontinued [place] 5/325 oral tablet 1 tab, PO, Q6H, PRN Pain Score 1-3, 0 Refill(s) Start Date: 08/23/16 Status: Suspended [place] 5/325 oral tablet 1 tab, Route: PO, Drug Form: TAB, Dosing Weight 51.165, kg, Q6H, PRN Pain Score 1-3, Start date: 08/17/16 21:13:00 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F, Duration: 30 day, Stop date: 09/16/16 21 :12:00 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F Notes: (Same as: [place] 325/5) Do not exceed 4gm/day of acetaminophen. Start Date: 08/17/16 Stop Date: 08/23/16 Status: Discontinued ondansetron 2 mg/mL injectable solution 4 mg=2 mL, IVP, Q6H, PRN Nausea, 0 Refill(s) Start Date: 08/23/16 Status: Suspended pantoprazole 40 mg intravenous injection 40 mg, IVP, Before Dinner, 0 Refill(s) Start Date: 08/23/16 Status: Suspended potassium chloride 10 mEq, 100 mL, Route: IVPB, Drug form: INJ, Q1H, Dosing Weight 50.909, kg, Tota l Dose=60 meq, Start date: 08/23/16 7:00:00 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F, Duration: 6 doses or times, Sto p date: 08/23/16 12:00:00 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F, Peripheral Line Notes: Infuse at a rate of 10 mEq/hr.(Same as: KCL) Start Date: 08/23/16 Stop Date: 08/23/16 Status: Completed potassium chloride 40 mEq, 30 mL, Route: DHT, Drug form: LIQ, ONCE, Dosing Weight 50.909, kg, Start date: 08/23/16 6:24:00 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F, Stop date: 08/23/16 6:24:00 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F Notes: (Same as: Potassium Chloride) Start Date: 08/23/16 Stop Date: 08/23/16 Status: Completed potassium chloride 40 mEq, 30 mL, Route: NG, Drug form: LIQ, Q2H, Dosing Weight 50.909, kg, Start d ate: 08/22/16 12:00:00 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F, Duration: 2 doses or times, Stop date: 08/22/16 14:0 0:00 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F Notes: (Same as: Potassium Chloride) Start Date: 08/22/16 Stop Date: 08/22/16 Status: Completed potassium chloride 10 mEq, 100 mL, Route: IVPB, Drug form: INJ, Q1H, Dosing Weight 51.165, kg, Tota l Dose=40 meq, Start date: 08/19/16 18:00:00 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F, Duration: 4 doses or times, St op date: 08/19/16 21:00:00 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F, Peripheral Line Notes: Infuse at a rate of 10 mEq/hr.(Same as: KCL) Start Date: 08/19/16 Stop Date: 08/19/16 Status: Completed propranolol 20 mg, 1 tab, Route: PO, Drug form: TAB, Q12H, Dosing Weight 50.909, kg, Priorit y: NOW, Start date: 08/21/16 10:05:00 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F, Duration: 30 day, Stop date: 09/20/16 9:00:00 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F Notes: Give with food.(Same as: Inderal) Start Date: 08/21/16 Stop Date: 08/22/16 Status: Discontinued propranolol 20 mg, 1 tab, Route: PO, Drug form: TAB, TID, Dosing Weight 50.909, kg, Start da te: 08/22/16 16:00:00 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F, Duration: 30 day, Stop date: 09/21/16 8:00:00 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F Notes: Give with food.(Same as: Inderal) Start Date: 08/22/16 Stop Date: 08/23/16 Status: Discontinued propranolol 20 mg oral tablet 20 mg=1 tab, PO, TID, 0 Refill(s) Start Date: 08/23/16 Status: Suspended Protonix 40 mg, Route: IVP, Drug form: INJ, Before Dinner, Dosing Weight 51.165, kg, Star t date: 08/17/16 22:00:00 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F, Duration: 30 day, Stop date: 09/16/16 16:30:00 CS T Notes: For IV push reconstitute with 10 ml 0.9% sodium chloride and push over 2 minutes. (Same as: Protonix) Start Date: 08/17/16 Stop Date: 08/23/16 Status: Discontinued sodium chloride 0.9% 1000 ml INJ 1,000 mL 1,000 mL, Rate: 25 ml/hr, Infuse over: 40 hr, Route: IV, Dosing Weight 51.165 kg , Total Volume: 1,000, Start date: 08/20/16 13:32:00 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F, Duration: 1 day, Stop date: 08/21/16 13:31:00 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F Start Date: 08/20/16 Stop Date: 08/20/16 Status: Discontinued sodium chloride 0.9% 1000 ml INJ 1,000 mL 1,000 mL, Rate: 41.67 ml/hr, Infuse over: 24 hr, Route: IV, Dosing Weight 51.165 kg, Total Volume: 1,000, Start date: 08/20/16 8:57:00 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F, Duration: 30 day, St op date: 09/19/16 8:56:00 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F Start Date: 08/20/16 Stop Date: 08/20/16 Status: Discontinued sodium chloride 0.9% 1000 ml INJ 1,000 mL 1,000 mL, Rate: 1000 ml/hr, Infuse over: 1 hr, Route: IV, Dosing Weight 51.165 k g, Total Volume: 1,000, Start date: 08/20/16 22:49:00 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F, Duration: 1 doses or times, Stop date: 08/20/16 23:48:00 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F Start Date: 08/20/16 Stop Date: 08/20/16 Status: Completed vancomycin 1.25 gm, 250 mL, Route: IVPB, Drug form: INJ, [id number], Dosing Weight 51.165, kg, Start date: 08/18/16 0:00:00 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F, Duration: 30 day, Stop date: 09/16/16 16:00:00 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F Notes: TIME CRITICAL MEDICATIONSame as: Vancocin-NS (premixed)Infusion rate< 1000 mg: infuse over 1 [id number] - 1500 mg: infuse over 1.5 [id number] - 2000 mg: infuse over 2 hours> 2001 mg: infuse over 2.5 hours Start Date: 08/18/16 Stop Date: 08/19/16 Status: Discontinued vancomycin 1,000 mg, Route: IVPB, Drug form: INJ, [id number], Dosing Weight 51.165, kg, Start date: 08/17/16 22:00:00 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F, Duration: 30 day, Stop date: 09/16/16 10:00:00 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F Start Date: 08/17/16 Stop Date: 08/17/16 Status: Canceled vancomycin + sodium chloride 0.9% 250 mL INJ (for IV set) 250 mL 1,250 mg, Route: IVPB, [id number], Dosing Weight 51.165, kg, Start date: 08/19/16 9: 00:00 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F, Stop date: 09/18/16 2:00:00 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F Notes: TIME CRITICAL MEDICATION(Same As: Vancocin)Infusion rate< 1000 mg: infuse over 1 [id number] - 1500 mg: infuse over 1.5 [id number] - 2000 mg: infuse over 2 hours> 2001 mg: infuse over 2.5 hours MEDICATION WASTE Product Size: 1000 mgProduct Wasted: ___ mg Start Date: 08/19/16 Stop Date: 08/23/16 Status: Discontinued vancomycin + sodium chloride 0.9% INJ 250 mL 1 gm, Route: IVPB, [id number], Dosing Weight 51.165, kg, Start date: 08/19/16 0:30:0 0 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F, Duration: 30 day, Stop date: 09/17/16 16:30:00 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F Notes: TIME CRITICAL MEDICATION(Same As: Vancocin)Infusion rate< 1000 mg: infuse over 1 [id number] - 1500 mg: infuse over 1.5 [id number] - 2000 mg: infuse over 2 hours> 2001 mg: infuse over 2.5 hours MEDICATION WASTE Product Size: 1000 mgProduct Wasted: ___ mg Start Date: 08/19/16 Stop Date: 08/19/16 Status: Discontinued Vancomycin Pharmacy Dosing 1 ea, Route: MISC, Dosing Weight 51.165, kg, ONCALL, Start date: 08/17/16 22:00: 00 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F, Duration: 1 doses or times, Pharmacy to dose Start Date: 08/17/16 Stop Date: 08/17/16 Status: Canceled Zofran 4 mg, Route: IVP, Drug form: INJ, Q8H, Dosing Weight 51.165, kg, PRN Nausea, Sta rt date: 08/20/16 19:03:00 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F, Duration: 30 day, Stop date: 09/19/16 19:02:[address] Start Date: 08/20/16 Stop Date: 08/20/16 Status: Discontinued Zofran 4 mg, 2 mL, Route: IVP, Drug form: INJ, Q6H, Dosing Weight 51.165, kg, PRN Nause a, Start date: 08/20/16 19:06:00 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F, Duration: 30 day, Stop date: 09/19/16 19:0 5:00 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F Notes: (Same as: Zofran) MEDICATION WASTE Product Size: 4 mgProduct Was nakul: ___ mg Start Date: 08/20/16 Stop Date: 08/23/16 Status: Discontinued Results ELECTROLYTES 1 2 3 Most recent to oldest [Reference Range]: 141 mEq/L (08/23/16 4:33 AM) 138 mEq/L (08/22/16 5:33 AM) 138 mEq/L (08/20/16 5:50 AM) Sodium Lvl [135-145 mEq/L] 2.7 mEq/L 1 *CRIT* (08/23/16 4:33 AM) 2.5 mEq/L 2 *CRIT* (08/22/16 3:06 PM) 1.8 mEq/L 3 *CRIT* (08/22/16 7:26 AM) Potassium Lvl [3.5-5.1 mEq/L] 103 mEq/L (08/23/16 4:33 AM) 97 mEq/L (08/22/16 5:33 AM) 101 mEq/L (08/20/16 5:50 AM) Chloride Lvl [95-109 mEq/L] 32 mEq/L (08/23/16 4:33 AM) 32 mEq/L (08/22/16 5:33 AM) 27 mEq/L (08/20/16 5:50 AM) CO2 [24-32 mEq/L] 8.7 mEq/L *LOW* (08/23/16 4:33 AM) 10.8 mEq/L (08/22/16 5:33 AM) 13.5 mEq/L (08/20/16 5:50 AM) AGAP [10.0-20.0 mEq/L] 1Result Comment: Critical Result(s) called to joaquín benitez at 08/23/2016 05:00 by lgb. Read back OK. 2Result Comment: Critical Result(s) called to Edison Dahl at 08/22/2016 15:34 by ka. Read back OK. 3Result Comment: Critical Result(s) called to Yonas Pompa at 08/22/2016 07:56 by TT. Read back OK. CHEM PANEL 1 2 3 Most recent to oldest [Reference Range]: 0.22 mg/dL *LOW* (08/23/16 4:33 AM) 0.19 mg/dL *LOW* (08/22/16 5:33 AM) <0.15 mg/dL *LOW* (08/20/16 5:50 AM) Creatinine Lvl [0.50-1.40 mg/dL] 158 mL/min/1.73m2 1 *NA* (08/23/16 4:33 AM) 166 mL/min/1.73m2 2 *NA* (08/22/16 5:33 AM) 179 mL/min/1.73m2 3 *NA* (08/20/16 5:50 AM) eGFR 6 mg/dL *LOW* (08/23/16 4:33 AM) 5 mg/dL *LOW* (08/22/16 5:33 AM) 5 mg/dL *LOW* (08/20/16 5:50 AM) BUN [7-22 mg/dL] 26 *HI* (08/22/16 5:33 AM) See Note 4 (08/20/16 5:50 AM) See Note (08/19/16 5:54 AM) B/C Ratio [6-25] 161 mg/dL *HI* (08/23/16 4:33 AM) 189 mg/dL *HI* (08/22/16 5:33 AM) 112 mg/dL *HI* (08/20/16 5:50 AM) Glucose Lvl [70-99 mg/dL] 7.7 g/dL (08/22/16 5:33 AM) 8.0 g/dL (08/20/16 5:50 AM) 8.8 g/dL *HI* (08/19/16 5:54 AM) Total Protein [6.4-8.4 g/dL] 2.6 g/dL *LOW* (08/22/16 5:33 AM) 3.0 g/dL *LOW* (08/20/16 5:50 AM) 3.0 g/dL *LOW* (08/19/16 5:54 AM) Albumin Lvl [3.5-5.0 g/dL] 5.1 g/dL *HI* (08/22/16 5:33 AM) 5.0 g/dL *HI* (08/20/16 5:50 AM) 5.8 g/dL *HI* (08/19/16 5:54 AM) Globulin [2.7-4.2 g/dL] 0.5 *LOW* (08/22/16 5:33 AM) 0.6 *LOW* (08/20/16 5:50 AM) 0.5 *LOW* (08/19/16 5:54 AM) A/G Ratio [0.7-1.6] 8.1 mg/dL *LOW* (08/23/16 4:33 AM) 8.1 mg/dL *LOW* (08/22/16 5:33 AM) 8.6 mg/dL (08/20/16 5:50 AM) Calcium Lvl [8.5-10.5 mg/dL] 1.9 mg/dL *LOW* (08/23/16 4:33 AM) Phosphorus [2.5-4.5 mg/dL] 1.5 mg/dL *LOW* (08/23/16 4:33 AM) 1.7 mg/dL *LOW* (08/20/16 5:50 AM) 1.8 mg/dL (08/19/16 5:54 AM) Magnesium Lvl [1.8-2.4 mg/dL] 12 unit/L (08/22/16 5:33 AM) 12 unit/L (08/20/16 5:50 AM) 12 unit/L (08/19/16 5:54 AM) ALT [0-65 unit/L] 15 unit/L (08/22/16 5:33 AM) 15 unit/L (08/20/16 5:50 AM) 16 unit/L (08/19/16 5:54 AM) AST [0-37 unit/L] 206 unit/L *HI* (08/22/16 5:33 AM) 300 unit/L *HI* (08/20/16 5:50 AM) 358 unit/L *HI* (08/19/16 5:54 AM) Alk Phos [39-136 unit/L] 0.5 mg/dL (08/22/16 5:33 AM) 0.4 mg/dL (08/20/16 5:50 AM) 0.5 mg/dL (08/19/16 5:54 AM) Bili Total [0.2-1.3 mg/dL] 1Result Comment: The eGFR is calculated using [...] tiplied by the estimated BMI. 4Result Comment: Unable to calculate due to Creatinine <0.15 on 08/20/2016 06:18 by Pj. CARDIAC ENZYMES 1 2 3 Most recent to oldest [Reference Range]: 177 pg/mL *HI* (08/20/16 9:50 AM) BNP [<=100 pg/mL] TOXICOLOGY 1 2 3 Most recent to oldest [Reference Range]: 10:00 *NA* (08/22/16 9:30 AM) 0900 *NA* (08/20/16 8:20 AM) tbd *NA* (08/20/16 12:10 AM) [facility] TND 14.0 ug/ml *NA* (08/22/16 9:30 AM) 12.6 ug/ml *NA* (08/20/16 8:20 AM) 18.1 ug/ml *NA* (08/20/16 12:10 AM) [facility] IMMUNOLOGY 1 2 3 Most recent to oldest [Reference Range]: 4.5 mg/dL *LOW* (08/20/16 5:50 AM) Prealbumin [18.0-45.0 mg/dL] HEMATOLOGY 1 2 3 Most recent to oldest [Reference Range]: 6.3 K/CMM (08/23/16 4:33 AM) 6.3 K/CMM (08/22/16 5:33 AM) 4.8 K/CMM (08/20/16 5:50 AM) WBC [3.7-10.4 K/CMM] 3.44 M/CMM *LOW* (08/23/16 4:33 AM) 3.43 M/CMM *LOW* (08/22/16 5:33 AM) 3.48 M/CMM *LOW* (08/20/16 5:50 AM) RBC [4.20-5.40 M/CMM] 10.2 g/dL *LOW* (08/23/16 4:33 AM) 10.3 g/dL *LOW* (08/22/16 5:33 AM) 10.3 g/dL *LOW* (08/20/16 5:50 AM) Hgb [12.0-16.0 g/dL] 30.7 % *LOW* (08/23/16 4:33 AM) 30.7 % *LOW* (08/22/16 5:33 AM) 31.4 % *LOW* (08/20/16 5:50 AM) Hct [36.0-48.0 %] 89.4 fL (08/23/16 4:33 AM) 89.4 fL (08/22/16 5:33 AM) 90.3 fL (08/20/16 5:50 AM) MCV [80.0-98.0 fL] 29.6 pg (08/23/16 4:33 AM) 29.9 pg (08/22/16 5:33 AM) 29.6 pg (08/20/16 5:50 AM) MCH [27.0-31.0 pg] 33.1 g/dL (08/23/16 4:33 AM) 33.4 g/dL (08/22/16 5:33 AM) 32.8 g/dL (08/20/16 5:50 AM) MCHC [32.0-36.0 g/dL] 16.4 % *HI* (08/23/16 4:33 AM) 16.5 % *HI* (08/22/16 5:33 AM) 16.8 % *HI* (08/20/16 5:50 AM) RDW [11.5-14.5 %] 263 K/CMM (08/23/16 4:33 AM) 282 K/CMM (08/22/16 5:33 AM) 322 K/CMM (08/20/16 5:50 AM) Platelet [133-450 K/CMM] 10.7 fL *HI* (08/23/16 4:33 AM) 10.4 fL (08/22/16 5:33 AM) 10.2 fL (08/20/16 5:50 AM) MPV [7.4-10.4 fL] 68.4 % (08/23/16 4:33 AM) 74.8 % (08/22/16 5:33 AM) 62.6 % (08/20/16 5:50 AM) Segs [45.0-75.0 %] 19.1 % *LOW* (08/23/16 4:33 AM) 15.2 % *LOW* (08/22/16 5:33 AM) 24.0 % (08/20/16 5:50 AM) Lymphocytes [20.0-40.0 %] 9.9 % (08/23/16 4:33 AM) 8.4 % (08/22/16 5:33 AM) 10.3 % (08/20/16 5:50 AM) Monocytes [2.0-12.0 %] 2.1 % (08/23/16 4:33 AM) 1.1 % (08/22/16 5:33 AM) 2.2 % (08/20/16 5:50 AM) Eosinophils [0.0-4.0 %] 0.5 % (08/23/16 4:33 AM) 0.5 % (08/22/16 5:33 AM) 0.9 % (08/20/16 5:50 AM) Basophils [0.0-1.0 %] 4.3 K/CMM (08/23/16 4:33 AM) 4.7 K/CMM (08/22/16 5:33 AM) 3.0 K/CMM (08/20/16 5:50 AM) Segs-Bands # [1.5-8.1 K/CMM] 1.2 K/CMM (08/23/16 4:33 AM) 1.0 K/CMM (08/22/16 5:33 AM) 1.1 K/CMM (08/20/16 5:50 AM) Lymphocytes # [1.0-5.5 K/CMM] 0.6 K/CMM (08/23/16 4:33 AM) 0.5 K/CMM (08/22/16 5:33 AM) 0.5 K/CMM (08/20/16 5:50 AM) Monocytes # [0.0-0.8 K/CMM] 0.1 K/CMM (08/23/16 4:33 AM) 0.1 K/CMM (08/22/16 5:33 AM) 0.1 K/CMM (08/20/16 5:50 AM) Eosinophils # [0.0-0.5 K/CMM] 14.5 seconds (08/20/16 5:50 AM) PT [12.0-14.7 seconds] 1.11 (08/20/16 5:50 AM) INR [0.85-1.17] Immunizations Not Given Vaccine Date Status Refusal [...] Plan Extracted from: Title: Clinical Document Author: Sadie Gleason MD Date: 08/23/16 Progress Note Gastroenterology and Hepatology ASSESSMENT /PLAN: This is a 40-year-old female with recent history of thyroid toxicosis, pelvic masses, acute severe pancreatitis complicated by symptomatic pseudocyst and severe malnutrition. 1. Acute over chronic pancreatitis w infeceted pseudocyst; s/p Axios stent at [facility] facility on 08/06/16 - Given multilocalated [...] 2. Adnexal masses -Ob Onc consultation with [place] dept noted; outpatient f/u recommended. 3. Thyrotoxicosis [...] multidiscplinary team back up; recommend [place] [facility] [place] D[place]w Dr Shine who has agreed [...] , BS + Ext : no edema [employer]: No gross motor/sensory defects VitalsTmp(F)Tmp(C)[id number] 08/23 17:00 108/[id number]------ 08/23 16:00 100/[id number]------ 08/23 15:4498.236.78oral 08/23 15:00 124/[id number]------ 08/23 14:55 113/[id number]------ 24 Hr Tmax: 100.2F (37.89c) at 08/23 07:25Vital Signs are the last 5 in the past 48 hours. 24 Hr Tmin: 98.1F (36.72c) at 08/23 11:52Weights are the last 5 in 60 days, plus initial. DateWt(kg)Wt(lb)Ht(cm)Ht(in)MethodBMI 08/22 50.95 112.10Measured 08/21 50.91 112.00Measured 08/17 (initial) 51.16 112.56Estimated 21.3 07/20144.94 61.00Stated Most Recent Scores: 08/23/16Pain Intensity NRS (0-10)3 08/23/16Johns Contreras Fall Score11 08/22/16Braden Score18 08/22/16Glasgow Coma Score15 Lines, Tubes, and Drains: 08/23/2016 13:23 Central Lines: Basilic vein, left PICC Triple 08/20/2016 17:00 Gastric Tubes: Other: Dobhoff Nostril, left 08/19/2016 20:00 Peripheral Lines: Forearm Right 20 gauge Over the needle catheter 08/19/2016 06:35 Peripheral Lines: Forearm Left 22 gauge Over the needle catheter Surgical Procedures: 08/20/16 14:23ERCP AND SMALL BOWEL ENTEROSCOPY AND DOLOHOFF PLACEMENT/TO FOLLOW START TIME REQUESTED [id number] Surgeon: Sadie Gleason MD (Service: END) I&ORecordInOutBal 07/2623hr Tot 1198 0 1198 07/2523hr Tot 2985 0 2985 24hr Labs 08/23 1519 Glucose QRO588 H 08/23 1135 Glucose EKV774 H 08/23 0608 Glucose HXG283 H 08/23 0433 Magnesium Lvl1.5 L Glucose Rqk668 H BUN6 L Creatinine Lvl0.22 L Sodium Nso177 Potassium Lvl2.7 C Chloride Apo602 CO232 AGAP8.7 L Calcium Lvl8.1 L tBKU451 Phosphorus1.9 L WBC6.3 RBC3.44 L Hgb10.2 L Hct30.7 L MCV89.4 MCH29.6 MCHC33.1 RDW16.4 H Ohrlrjbj883 MPV10.7 H Segs68.4 Monocytes9.9 Sedcprlarid33.1 L Eosinophils2.1 Basophils0.5 Segs-Bands #4.3 Lymphocytes #1.2 Monocytes #0.6 Eosinophils #0.1 08/23 0109 Glucose OMP155 H Scheduled Meds (6): cefepime + sodium chloride 0.9% INJ 100 mL 1 gm IVPB XIFP65C 200 ml/hr [Last Rescheduled Dt/Tm: 08/18/16 4:00:00 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[employer]] [eMAR Schedule: (08/23/16) 04:00, 16:00; (08/24/16) 04:00] enoxaparin (Lovenox) 40 mg SUB-Q ccrmB45N [eMAR Schedule: (08/23/16) 22:00] [Future Dose: 08/24/16 22:00] methimazole 10 mg PO Q8H [eMAR Schedule: (08/23/16) 00:00, 08:00, 16:00; (08/24/16) 00:00] pantoprazole (Protonix) 40 mg IVP Before Dinner [Last Rescheduled Dt/Tm: 08/17/16 22:00:00 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[employer]] [eMAR Schedule: (08/23/16) 16:30] [Future Dose: 08/24/16 16:30] propranolol 20 mg PO TID [Last Rescheduled Dt/Tm: 08/22/16 16:00:00 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F] [eMAR Schedule: (08/23/16) 00:00, 08:00, 16:00; (08/24/16) 00:00] vancomycin + sodium chloride 0.9% 250 mL INJ (for IV set) 250 mL 1,250 mg IVPB ABXQ8H 250 ml/hr [Last Rescheduled Dt/Tm: 08/21/16 18:00:00 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[employer]] [eMAR Schedule: (08/23/16) 02:00, 10:00, 18:00; (08/24/16) 02:00] Unscheduled Meds: None PRN Meds (13): Dextrose 50% in Water IV (Dextrose 50% Syringe) 12.5 gm IVP PRN Dextrose 50% in Water IV (Dextrose 50% Syringe) 25 gm IVP PRN acetaminophen-hydrocodone ([place] 5/325 oral tablet) 1 tab PO Q6H [...]
--- OUTSIDE RECORDS SUMMARY | 2019-02-11 16:46 | XMS REPORT | Summary of Care ---
Author Author [facility] Organization [facility] Address Unknown Phone Unavailable Encounter CRISTIANE Lindo(JOSEPH) [id number] Date(s): 07/05/16 - 08/17/16 [facility] [address] [place] [address]- Discharge Disposition: Acute Care Attending Physician: Lacho Contreras MD Admitting Physician: Lacho Contreras MD Referring Physician: Lacho Contreras MD Vital Signs 1 2 3 Most recent to oldest [Reference Range]: 154.94 cm (07/05/16 5:22 PM) Height 99.4 DegF *HI* (08/17/16 12:00 PM) 98.4 DegF (08/17/16 8:00 AM) 99.1 DegF (08/17/16 4:00 AM) Temperature Oral [96.4-99.1 DegF] 114/76 mmHg (08/17/16 12:00 PM) 117/76 mmHg (08/17/16 8:00 AM) 109/76 mmHg (08/17/16 4:00 AM) Blood Pressure [90-140/60-90 mmHg] 18 BRMIN (08/17/16 12:00 PM) 19 BRMIN (08/17/16 8:00 AM) 18 BRMIN (08/17/16 4:00 AM) Respiratory Rate [14-20 BRMIN] 111 bpm *HI* (08/17/16 12:00 PM) 101 bpm *HI* (08/17/16 8:00 AM) 110 bpm *HI* (08/17/16 4:00 AM) Peripheral Pulse Rate [60-100 bpm] 60 kg (07/17/16 8:55 AM) 143 kg (07/15/16 10:16 AM) 65 kg (07/14/16 10:36 AM) Weight 27.08 m2 (07/05/16 5:22 PM) Body Mass Index Problem List Condition Effective Dates Status Health Status Informant Diabetes(Confirmed) Resolved Gallbladder Resolved disease(Confirmed) Goiter(Confirmed) Resolved Heartburn(Confirmed) Resolved MRSA(Confirmed)1, 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 Allergies, Adverse Reactions, Alerts Substance Reaction Severity Status ciprofloxacin Active Keflex Active Medications acetaminophen 650 mg, 2 tab, Route: PO, Drug form: TAB, Q4H, Dosing Weight 49.5, kg, PRN Pain 1-3/Temp > 100.4 F, Start date: 07/05/16 17:10:00 ENRICHMENT ASSISTANT, Duration: 30 day, Stop date: 09/03/16 17:09:00 ENRICHMENT ASSISTANT Notes: Do not exceed 4 gm/day. (Same as: Tylenol) Start Date: 07/05/16 Stop Date: 08/17/16 Status: Discontinued acetaminophen-hydrocodone 325 mg-10 mg oral tablet 1 tab, Route: PO, Drug Form: TAB, Q6H, PRN Pain Score 4-6, Start date: 07/21/16 10:57:00 ENRICHMENT ASSISTANT, Duration: 30 day, Stop date: 08/20/16 10:56:00 ENRICHMENT ASSISTANT Notes: Do not exceed 4gm/day of acetaminophen. (Same as: Drexel 325/10) Start Date: 07/21/16 Stop Date: 07/22/16 Status: Voided With Results acetaminophen-oxycodone 325 mg-10 mg oral tablet 1 tab, Route: PO, Drug Form: TAB, Dosing Weight 60, kg, Q6H, PRN Pain Score 4-6, Start date: 07/21/16 10:17:00 ENRICHMENT ASSISTANT, Duration: 30 day, Stop date: 08/20/16 10:16: 00 ENRICHMENT ASSISTANT Start Date: 07/21/16 Stop Date: 07/21/16 Status: Discontinued acetaminophen-oxycodone 325 mg-5 mg oral tablet 2 tab, PO, Q6H, PRN Pain Score 4-6, 0 Refill(s) Start Date: 08/16/16 Status: Ordered acetaminophen-oxycodone 325 mg-5 mg oral tablet 2 tab, Route: PO, Drug Form: TAB, Q6H, PRN Pain Score 4-6, Start date: 07/22/16 10:00:00 ENRICHMENT ASSISTANT, Duration: 30 day, Stop date: 09/20/16 9:59:00 ENRICHMENT ASSISTANT Notes: Do not exceed 4gm/day of acetaminophen. (Same as: Percocet-5/325) Start Date: 07/22/16 Stop Date: 08/17/16 Status: Discontinued albumin human 25% intravenous solution 25 gm, 100 mL, Route: IVPB, Drug form: INJ, Q6H, Dosing Weight 60, kg, Start chely e: 08/07/16 0:00:00 ENRICHMENT ASSISTANT, Stop date: 08/08/16 18:00:00 ENRICHMENT ASSISTANT Notes: LOT#: Mfg: WASTE: F/P - Red; E -Red (Same a s: Albuminar)"blood product derivative" Start Date: 08/07/16 Stop Date: 08/08/16 Status: Completed albumin human 25% intravenous solution 25 gm, 100 mL, Route: IVPB, Drug form: INJ, Q6H, Dosing Weight 60, kg, Start chely e: 08/14/16 0:00:00 ENRICHMENT ASSISTANT, Duration: 6 doses or times, Stop date: 08/15/16 6:00:00 ENRICHMENT ASSISTANT Notes: Lot #: Mfg: (Same as: Plasbumin-25)"blood pr oduct derivative"WASTE: F/P - Red; E -Red MEDICATION WASTE Product Size: 25 gmProduct Wasted: ___ gm Start Date: 08/14/16 Stop Date: 08/14/16 Status: Discontinued albumin human 25% intravenous solution 25 gm, 100 mL, Route: IVPB, Drug form: INJ, ONCE, Dosing Weight 60, kg, Start da te: 08/14/16 20:00:00 ENRICHMENT ASSISTANT, Stop date: 08/14/16 20:00:00 ENRICHMENT ASSISTANT Notes: Lot #: Mfg: (Same as: Plasbumin-25)"blood pr oduct derivative"WASTE: F/P - Red; E -Red MEDICATION WASTE Product Size: 25 gmProduct Wasted: ___ gm Start Date: 08/14/16 Stop Date: 08/14/16 Status: Completed albumin human 25% intravenous solution 12.5 gm, 50 mL, Route: IVPB, Drug form: INJ, Q6H, Dosing Weight 49.5, kg, Start date: 07/05/16 18:00:00 ENRICHMENT ASSISTANT, Duration: 30 day, Stop date: 08/04/16 12:00:00 ENRICHMENT ASSISTANT Notes: LOT#: Mfg: WASTE: F/P - Red; E -Red (Same a s: Albuminar)"blood product derivative" Start Date: 07/05/16 Stop Date: 07/22/16 Status: Discontinued albuterol-ipratropium 2.5-0.5 mg inhalation solution 3 mL, NEB, Q6H, PRN Shortness of breath, 0 Refill(s) Start Date: 08/16/16 Status: Ordered BD Normal Saline Flush 10 mL, Route: IVP, Drug Form: INJ, PRN, PRN Line Flush, Start date: 07/22/16 16: 05:00 ENRICHMENT ASSISTANT, Duration: 30 day, Stop date: 09/20/16 16:04:00 ENRICHMENT ASSISTANT Notes: (Same as: BD Posiflush) Start Date: 07/22/16 Stop Date: 08/17/16 Status: Discontinued calcium carbonate 500 mg (200 mg elemental calcium) oral tablet 1,000 mg, 2 tab, Route: CHEW, Drug form: CHEWTAB, TID, Dosing Weight 49.5, kg, S tart date: 07/06/16 9:00:00 ENRICHMENT ASSISTANT, Duration: 30 day, Stop date: 09/03/16 17:00:00 ENRICHMENT ASSISTANT Notes: (Same As: Tumsaud)Calcium Carbonate 500 mp=166 mg elemental calcium Dose=_ mg calcium carbonate ( mg elemental calcium) Start Date: 07/06/16 Stop Date: 08/17/16 Status: Discontinued calcium gluconate + sodium chloride 0.9% INJ 100 mL 2,000 mg, 20 mL, Route: IVPB, ONCE, Dosing Weight 65, kg, Start date: 07/06/16 8 :23:00 ENRICHMENT ASSISTANT, Stop date: 07/06/16 8:23:00 ENRICHMENT ASSISTANT Notes: WASTE: F/P - Sink; E - Municipal Trash Bin Start Date: 07/06/16 Stop Date: 07/06/16 Status: Completed cefepime + sodium chloride 0.9% INJ 100 mL 1 gm, Route: IVPB, ABXQ8H, Dosing Weight 60, kg, (CrCl >/=50 ml/min), Priority: Routine, Start date: 08/13/16 21:00:00 ENRICHMENT ASSISTANT, Duration: 30 day, Stop date: 09/12/16 13:00:00 ENRICHMENT ASSISTANT Notes: (Same As: Maxipime) MEDICATION WASTE Product Size: 1000 mgProduc t Wasted: ___ mg Start Date: 08/13/16 Stop Date: 08/17/16 Status: Discontinued cefepime + sodium chloride 0.9% INJ 100 mL 1 gm, Route: IVPB, ABXQ8H, Dosing Weight 60, kg, (CrCl >/=50 ml/min), Priority: STAT, Start date: 08/13/16 14:34:00 ENRICHMENT ASSISTANT, Duration: 30 day, Stop date: 09/12/16 5:00:00 ENRICHMENT ASSISTANT Notes: (Same As: Maxipime) MEDICATION WASTE Product Size: 1000 mgProduc t Wasted: ___ mg Start Date: 08/13/16 Stop Date: 08/13/16 Status: Deleted cholestyramine 4 gm, 1 pkt, Route: PO, Drug form: PDR/REC, Daily, Dosing Weight 49.5, kg, Start date: 07/06/16 9:00:00 ENRICHMENT ASSISTANT, Duration: 30 day, Stop date: 09/03/16 9:00:00 ENRICHMENT ASSISTANT Notes: (Same As: Questran) Start Date: 07/06/16 Stop Date: 08/10/16 Status: Discontinued Creon 24,000 units oral delayed release capsule 2 cap, Route: PO, Drug Form: DRC, Dosing Weight 49.5, kg, TID-Before Meals, Star t date: 07/06/16 7:30:00 ENRICHMENT ASSISTANT, Duration: 30 day, Stop date: 09/03/16 16:30:00 ENRICHMENT ASSISTANT Notes: Same as: Santiago BUSTILLOS 24 : lipase 24,000 units, protease 76,000 units, amyla se 120,000 units Start Date: 07/06/16 Stop Date: 08/16/16 Status: Discontinued D5W 1/2NS 1,000 mL 1,000 mL, Rate: 60 ml/hr, Infuse over: 16.7 hr, Route: IV, Dosing Weight 60 kg, Total Volume: 1,000, Start date: 08/15/16 15:29:00 ENRICHMENT ASSISTANT, Duration: 30 day, Stop d ate: 09/14/16 15:28:00 ENRICHMENT ASSISTANT Start Date: 08/15/16 Stop Date: 08/17/16 Status: Discontinued Dextrose 50% Syringe 25 gm, 50 mL, Route: IVP, Drug Form: INJ, Dosing Weight 49.5, kg, PRN, PRN Blood Glucose Results, Start date: 07/05/16 17:21:00 ENRICHMENT ASSISTANT, Duration: 30 day, Stop date: 09/03/16 17:20:00 ENRICHMENT ASSISTANT Start Date: 07/05/16 Stop Date: 08/17/16 Status: Discontinued Dextrose 50% Syringe 12.5 gm, 25 mL, Route: IVP, Drug Form: INJ, Dosing Weight 49.5, kg, PRN, PRN Blo od Glucose Results, Start date: 07/05/16 17:21:00 ENRICHMENT ASSISTANT, Duration: 30 day, Stop da te: 09/03/16 17:20:00 ENRICHMENT ASSISTANT Start Date: 07/05/16 Stop Date: 08/17/16 Status: Discontinued Dilaudid 1 mg, Route: IVP, Q3H, Dosing Weight 60, kg, PRN Pain Score 7-10, Start date: 12:13:00 ENRICHMENT ASSISTANT, Duration: 30 day, Stop date: 09/04/16 12:12:00 ENRICHMENT ASSISTANT Start Date: 08/05/16 Stop Date: 08/05/16 Status: Discontinued Dilaudid 0.5 mg, 0.5 mL, Route: IVP, Drug form: INJ, Q3H, Dosing Weight 60, kg, PRN Pain Score 7-10, Start date: 08/05/16 12:14:00 ENRICHMENT ASSISTANT, Duration: 30 day, Stop date: 02/11 12:13:00 ENRICHMENT ASSISTANT Start Date: 08/05/16 Stop Date: 08/17/16 Status: Discontinued docusate 100 mg, 1 cap, Route: PO, Drug form: CAP, BID, Dosing Weight 49.5, kg, PRN Const ipation, Start date: 07/05/16 17:10:00 ENRICHMENT ASSISTANT, Duration: 30 day, Stop date: 7 17:09:00 ENRICHMENT ASSISTANT Notes: (Same as: Colace) (Do Not Crush) Start Date: 07/05/16 Stop Date: 08/17/16 Status: Discontinued docusate sodium 100 mg oral capsule 100 mg=1 cap, PO, BID, PRN Constipation, 0 Refill(s) Start Date: 08/16/16 Status: Ordered DuoNeb inhalation solution 3 mL, Route: NEB, Drug Form: SOLN, Q6H, PRN Shortness of breath, Start date: 17:49:00 ENRICHMENT ASSISTANT, Duration: 30 day, Stop date: 09/13/16 17:48:00 ENRICHMENT ASSISTANT Notes: (Same as: Duoneb) Start Date: 07/15/16 Stop Date: 08/17/16 Status: Discontinued enoxaparin 40 mg, 0.4 mL, Route: SUB-Q, Drug form: INJ, [id number], Dosing Weight 49.5, kg, S tart date: 07/05/16 18:00:00 ENRICHMENT ASSISTANT, Duration: 30 day, Stop date: 09/02/16 18:00:00 ENRICHMENT ASSISTANT Notes: (Same as: Lovenox) Start Date: 07/05/16 Stop Date: 08/17/16 Status: Discontinued fat emulsion, intravenous 250 mL, 31.25 ml/hr, Route: IV, Drug Form: INJ, Q-M-W-F, Start date: 07/06/16 22 :00:00 ENRICHMENT ASSISTANT, Duration: 30 day, Stop date: 08/31/16 22:00:00 ENRICHMENT ASSISTANT Notes: (Same as: Intralipid, Liposyn)Infuse through a 1.2 micron filter Start Date: 07/06/16 Stop Date: 08/09/16 Status: Discontinued fentaNYL 25 microgram, Route: IV, ONCE, Dosing Weight 60, kg, Start date: 08/06/16 16:30: 00 ENRICHMENT ASSISTANT, Stop date: 08/06/16 16:30:00 ENRICHMENT ASSISTANT Start Date: 08/06/16 Stop Date: 08/06/16 Status: Completed fentaNYL 25 microgram, Route: IV, ONCE, Dosing Weight 60, kg, Start date: 08/06/16 17:20: 00 ENRICHMENT ASSISTANT, Stop date: 08/06/16 17:20:00 ENRICHMENT ASSISTANT Start Date: 08/06/16 Stop Date: 08/06/16 Status: Completed Flagyl 500 mg, 100 mL, Route: IVPB, Drug form: INJ, [id number], Dosing Weight 60, kg, Start date: 07/28/16 20:00:00 ENRICHMENT ASSISTANT, Duration: 30 day, Stop date: 08/27/16 12:00:00 ENRICHMENT ASSISTANT Notes: (Same as: Flagyl) Avoid alcohol. Start Date: 07/28/16 Stop Date: 08/06/16 Status: Discontinued fluconazole 200 mg, 100 mL, Route: IVPB, Drug form: INJ, [id number], Dosing Weight 60, kg, Prio rity: STAT, Start date: 08/08/16 18:27:00 ENRICHMENT ASSISTANT, Duration: 30 day, Stop date: 04/14 18:27:00 ENRICHMENT ASSISTANT Notes: (Same as: Diflucan) Do not refrigerate Start Date: 08/08/16 Stop Date: 08/10/16 Status: Discontinued glucagon 1 mg, Route: IM, Drug form: PDR/INJ, PRN, Dosing Weight 49.5, kg, PRN Blood Gluc ose Results, Start date: 07/05/16 17:21:00 ENRICHMENT ASSISTANT, Duration: 30 day, Stop date: 01/12 17:20:00 ENRICHMENT ASSISTANT Start Date: 07/05/16 Stop Date: 08/17/16 Status: Discontinued hydromorphone 0.5 mg, 0.5 mL, Route: IVP, Drug form: INJ, ONCE, Start date: 07/18/16 18:28:00 ENRICHMENT ASSISTANT, Stop date: 07/18/16 18:28:00 ENRICHMENT ASSISTANT Start Date: 07/18/16 Stop Date: 07/18/16 Status: Completed hydromorphone 0.5 mg, 0.5 mL, Route: IVP, Drug form: INJ, Q3H, Dosing Weight 49.5, kg, PRN Clarissa n Score 6-10, Start date: 07/05/16 17:13:00 ENRICHMENT ASSISTANT, Duration: 30 day, Stop date: 17:12:00 ENRICHMENT ASSISTANT Start Date: 07/05/16 Stop Date: 07/06/16 Status: Discontinued hydromorphone 0.5 mg, 0.5 mL, Route: IV, Drug form: INJ, Q3H, Dosing Weight 65, kg, PRN Pain S core 6-10, Start date: 07/06/16 13:54:00 ENRICHMENT ASSISTANT, Duration: 30 day, Stop date: 08/05 13:53:00 ENRICHMENT ASSISTANT Start Date: 07/06/16 Stop Date: 07/17/16 Status: Discontinued hydromorphone 0.5 mg, 0.5 mL, Route: IV, Drug form: INJ, Q6H, Dosing Weight 65, kg, PRN Pain S core 6-10, Start date: 07/17/16 15:43:00 ENRICHMENT ASSISTANT, Duration: 30 day, Stop date: 08/16 15:42:00 ENRICHMENT ASSISTANT Start Date: 07/17/16 Stop Date: 08/05/16 Status: Discontinued Imodium A-D 2 mg, 1 cap, Route: PO, Drug form: CAP, ONCE, Dosing Weight 143, kg, Start date: 07/16/16 13:30:00 ENRICHMENT ASSISTANT, Stop date: 07/16/16 13:30:00 ENRICHMENT ASSISTANT Notes: (Same as: Imodium) MAX adult dose is 8 caps/day Start Date: 07/16/16 Stop Date: 07/16/16 Status: Deleted Imodium A-D 2 mg, 1 cap, Route: PO, Drug form: CAP, ONCE, Dosing Weight 143, kg, Start date: 07/16/16 16:00:00 ENRICHMENT ASSISTANT, Stop date: 07/16/16 16:00:00 ENRICHMENT ASSISTANT Notes: (Same as: Imodium) MAX adult dose is 8 caps/day Start Date: 07/16/16 Stop Date: 07/16/16 Status: Completed insulin aspart 3 unit, 0.03 mL, Route: SUB-Q, Drug form: SOLN, Bedtime, Dosing Weight 49.5, kg, PRN Blood Glucose Results, Start date: 07/05/16 17:21:00 ENRICHMENT ASSISTANT, Duration: 30 day, Stop date: 09/03/16 17:20:00 ENRICHMENT ASSISTANT Notes: Roll in palms of hands gently; Do not shake vigorously. (Same as: Mica Soto)"single patient use only"WASTE: F/P - Black; E - Municipal Trash Bin Stable f or 28 days at room temperature.Expires in days from Date Start Date: 07/05/16 Stop Date: 08/17/16 Status: Discontinued insulin aspart 4 unit, 0.04 mL, Route: SUB-Q, Drug form: SOLN, Bedtime, Dosing Weight 49.5, kg, PRN Blood Glucose Results, Start date: 07/05/16 17:21:00 ENRICHMENT ASSISTANT, Duration: 30 day, Stop date: 09/03/16 17:20:00 ENRICHMENT ASSISTANT Notes: Roll in palms of hands gently; Do not shake vigorously. (Same as: Mica Soto)"single patient use only"WASTE: F/P - Black; E - Municipal Trash Bin Stable f or 28 days at room temperature.Expires in days from Date Start Date: 07/05/16 Stop Date: 08/17/16 Status: Discontinued insulin aspart 2 unit, 0.02 mL, Route: SUB-Q, Drug form: SOLN, Bedtime, Dosing Weight 49.5, kg, PRN Blood Glucose Results, Start date: 07/05/16 17:21:00 ENRICHMENT ASSISTANT, Duration: 30 day, Stop date: 09/03/16 17:20:00 ENRICHMENT ASSISTANT Notes: Roll in palms of hands gently; Do not shake vigorously. (Same as: Mica Soto)"single patient use only"WASTE: F/P - Black; E - Municipal Trash Bin Stable f or 28 days at room temperature.Expires in days from Date Start Date: 07/05/16 Stop Date: 08/17/16 Status: Discontinued insulin aspart 1 unit, 0.01 mL, Route: SUB-Q, Drug form: SOLN, Bedtime, Dosing Weight 49.5, kg, PRN Blood Glucose Results, Start date: 07/05/16 17:21:00 ENRICHMENT ASSISTANT, Duration: 30 day, Stop date: 09/03/16 17:20:00 ENRICHMENT ASSISTANT Notes: Roll in palms of hands gently; Do not shake vigorously. (Same as: Mica Soto)"single patient use only"WASTE: F/P - Black; E - Municipal Trash Bin Stable f or 28 days at room temperature.Expires in days from Date Start Date: 07/05/16 Stop Date: 08/17/16 Status: Discontinued insulin aspart 10 unit, 0.1 mL, Route: SUB-Q, Drug form: SOLN, TID-Before Meals, Dosing Weight 49.5, kg, PRN Blood Glucose Results, Start date: 07/05/16 17:21:00 ENRICHMENT ASSISTANT, Duration : 30 day, Stop date: 09/03/16 17:20:00 ENRICHMENT ASSISTANT Notes: Roll in palms of hands gently; Do not shake vigorously. (Same as: Mica Soto)"single patient use only"WASTE: F/P - Black; E - Municipal Trash Bin Stable f or 28 days at room temperature.Expires in days from Date Start Date: 07/05/16 Stop Date: 08/17/16 Status: Discontinued insulin aspart 8 unit, 0.08 mL, Route: SUB-Q, Drug form: SOLN, TID-Before Meals, Dosing Weight 49.5, kg, PRN Blood Glucose Results, Start date: 07/05/16 17:21:00 ENRICHMENT ASSISTANT, Duration : 30 day, Stop date: 09/03/16 17:20:00 ENRICHMENT ASSISTANT Notes: Roll in palms of hands gently; Do not shake vigorously. (Same as: NovoJACQUELIN Soto)"single patient use only"WASTE: F/P - Black; E - Municipal Trash Bin Stable f or 28 days at room temperature.Expires in days from Date Start Date: 07/05/16 Stop Date: 08/17/16 Status: Discontinued insulin aspart 6 unit, 0.06 mL, Route: SUB-Q, Drug form: SOLN, TID-Before Meals, Dosing Weight 49.5, kg, PRN Blood Glucose Results, Start date: 07/05/16 17:21:00 ENRICHMENT ASSISTANT, Duration : 30 day, Stop date: 09/03/16 17:20:00 ENRICHMENT ASSISTANT Notes: Roll in palms of hands gently; Do not shake vigorously. (Same as: Mica Soto)"single patient use only"WASTE: F/P - Black; E - Municipal Trash Bin Stable f or 28 days at room temperature.Expires in days from Date Start Date: 07/05/16 Stop Date: 08/17/16 Status: Discontinued insulin aspart 4 unit, 0.04 mL, Route: SUB-Q, Drug form: SOLN, TID-Before Meals, Dosing Weight 49.5, kg, PRN Blood Glucose Results, Start date: 07/05/16 17:21:00 ENRICHMENT ASSISTANT, Duration : 30 day, Stop date: 09/03/16 17:20:00 ENRICHMENT ASSISTANT Notes: Roll in palms of hands gently; Do not shake vigorously. (Same as: Mica Soto)"single patient use only"WASTE: F/P - Black; E - Municipal Trash Bin Stable f or 28 days at room temperature.Expires in days from Date Start Date: 07/05/16 Stop Date: 08/17/16 Status: Discontinued insulin aspart 2 unit, 0.02 mL, Route: SUB-Q, Drug form: SOLN, TID-Before Meals, Dosing Weight 49.5, kg, PRN Blood Glucose Results, Start date: 07/05/16 17:21:00 ENRICHMENT ASSISTANT, Duration : 30 day, Stop date: 09/03/16 17:20:00 ENRICHMENT ASSISTANT Notes: Roll in palms of hands gently; Do not shake vigorously. (Same as: Mica Soto)"single patient use only"WASTE: F/P - Black; E - Municipal Trash Bin Stable f or 28 days at room temperature.Expires in days from Date Start Date: 07/05/16 Stop Date: 08/17/16 Status: Discontinued insulin detemir 10 unit, 0.1 mL, Route: SUB-Q, Drug form: INJ, Bedtime, Dosing Weight 49.5, kg, Start date: 08/10/16 21:00:00 ENRICHMENT ASSISTANT, Duration: 30 day, Stop date: 09/08/16 21:00:0 0 ENRICHMENT ASSISTANT Notes: Same as LevemirDo not hold insulin without contacting prescriberWASTE: F/ P - Black; E - Municipal Trash Bin "single patient use only" Start Date: 08/10/16 Stop Date: 08/11/16 Status: Discontinued insulin detemir 18 unit, 0.18 mL, Route: SUB-Q, Drug form: INJ, Bedtime, Dosing Weight 49.5, kg, Start date: 07/05/16 21:00:00 ENRICHMENT ASSISTANT, Duration: 30 day, Stop date: 09/02/16 21:00: 00 ENRICHMENT ASSISTANT Notes: Same as LevemirDo not hold insulin without contacting prescriberWASTE: F/ P - Black; E - Municipal Trash Bin "single patient use only" Start Date: 07/05/16 Stop Date: 08/10/16 Status: Discontinued insulin detemir 15 unit, 0.15 mL, Route: SUB-Q, Drug form: INJ, Bedtime, Dosing Weight 49.5, kg, Start date: 08/11/16 21:00:00 ENRICHMENT ASSISTANT, Duration: 30 day, Stop date: 09/09/16 21:00: 00 ENRICHMENT ASSISTANT Notes: Same as LevemirDo not hold insulin without contacting prescriberWASTE: F/ P - Black; E - Municipal Trash Bin "single patient use only" Start Date: 08/11/16 Stop Date: 08/17/16 Status: Discontinued insulin detemir 100 units/mL subcutaneous solution 15 unit, SUB-Q, Bedtime, 0 Refill(s) Start Date: 08/16/16 Status: Ordered lansoprazole 3 mg/mL oral suspension PO, Before Dinner, 0 Refill(s) Start Date: 08/16/16 Status: Ordered Lasix 20 mg, 2 mL, Route: IVP, Drug form: INJ, ONCE, Dosing Weight 143, kg, Start date : 07/16/16 13:31:00 ENRICHMENT ASSISTANT, Stop date: 07/16/16 13:31:00 ENRICHMENT ASSISTANT Notes: (Same as: Lasix) Start Date: 07/16/16 Stop Date: 07/16/16 Status: Deleted Lasix 20 mg, 2 mL, Route: IVP, Drug form: INJ, Q12H, Dosing Weight 60, kg, Priority: N OW, Start date: 07/18/16 13:22:00 ENRICHMENT ASSISTANT, Duration: 30 day, Stop date: 08/17/16 9:0 0:00 ENRICHMENT ASSISTANT Notes: (Same as: Lasix) Start Date: 07/18/16 Stop Date: 07/21/16 Status: Discontinued Lasix 20 mg, 2 mL, Route: IV, Drug form: INJ, ONCE, Start date: 07/12/16 13:10:00 ENRICHMENT ASSISTANT, Stop date: 07/12/16 13:10:00 ENRICHMENT ASSISTANT Notes: (Same as: Lasix) Start Date: 07/12/16 Stop Date: 07/12/16 Status: Completed Lasix 20 mg, 2 mL, Route: IVP, Drug form: INJ, ONCE, Dosing Weight 143, kg, Start date : 07/16/16 16:13:00 ENRICHMENT ASSISTANT, Stop date: 07/16/16 16:13:00 ENRICHMENT ASSISTANT Notes: (Same as: Lasix) MEDICATION WASTE Product Size: 40 mgProduct Was nakul: ___ mg Start Date: 07/16/16 Stop Date: 07/16/16 Status: Completed Lasix 20 mg, 2 mL, Route: IVP, Drug form: INJ, ONCE, Dosing Weight 143, kg, Start date : 07/16/16 15:46:00 ENRICHMENT ASSISTANT, Stop date: 07/16/16 15:46:00 ENRICHMENT ASSISTANT Notes: (Same as: Lasix) Start Date: 07/16/16 Stop Date: 07/16/16 Status: Deleted loperamide 2 mg, 1 cap, Route: PO, Drug form: CAP, ONCE, Start date: 07/10/16 15:00:00 ENRICHMENT ASSISTANT, Stop date: 07/10/16 15:00:00 ENRICHMENT ASSISTANT Notes: (Same as: Imodium) MAX adult dose is 8 caps/day Start Date: 07/10/16 Stop Date: 07/10/16 Status: Completed Lopressor 5 mg, 5 mL, Route: IVP, Drug form: INJ, Q12H, Start date: 08/15/16 23:31:00 ENRICHMENT ASSISTANT, Duration: 30 day, Stop date: 09/14/16 21:00:00 ENRICHMENT ASSISTANT Notes: (Same as: Lopressor)Push over 2 minutes Start Date: 08/15/16 Stop Date: 08/17/16 Status: Discontinued magnesium oxide 400 mg, 1 tab, Route: PO, Drug form: TAB, TID, Dosing Weight 49.5, kg, Start chely e: 07/06/16 9:00:00 ENRICHMENT ASSISTANT, Duration: 30 day, Stop date: 09/03/16 17:00:00 ENRICHMENT ASSISTANT Notes: (Same as: Mag-Ox 400)Magnesium oxide [id number] elemental magnesiumDose= ____mg magnesium oxide (___mg elemental magnesium) Start Date: 07/06/16 Stop Date: 08/10/16 Status: Discontinued magnesium sulfate 2 gm, 50 mL, Route: IVPB, Drug form: INJ, ONCE, Dosing Weight 60, kg, Total dose =2 gm, Start date: 08/10/16 15:30:00 ENRICHMENT ASSISTANT, Duration: 1 doses or times, Stop date: 08/10/16 15:30:00 ENRICHMENT ASSISTANT Notes: WASTE: F/P - Sink; E - Municipal Trash Bin Start Date: 08/10/16 Stop Date: 08/10/16 Status: Completed magnesium sulfate + sodium chloride 0.9% INJ 100 mL 1 gm, 2 mL, Route: IV, ONCE, Dosing Weight 65, kg, Priority: NOW, Start date: 8:23:00 ENRICHMENT ASSISTANT, Stop date: 07/06/16 8:23:00 ENRICHMENT ASSISTANT Notes: (Same as: MgSO4)WASTE: F/P - Sink; E - Municipal Trash Bin MEDICATIO N WASTE Product Size: 1000 mgProduct Wasted: ___ mg Start Date: 07/06/16 Stop Date: 07/06/16 Status: Completed magnesium sulfate 2gm / NS 50ml (premixed) 2 gm, 50 mL, Route: IVPB, Drug form: INJ, ONCE, Dosing Weight 60, kg, Start date : 08/13/16 16:54:00 ENRICHMENT ASSISTANT, Duration: 2 hr, Stop date: 08/13/16 16:54:00 ENRICHMENT ASSISTANT Notes: WASTE: F/P - Sink; [facility] Start Date: 08/13/16 Stop Date: 08/13/16 Status: Completed magnesium sulfate 2gm / NS 50ml (premixed) 2 gm, 50 mL, Route: IVPB, Drug form: INJ, ONCE, Dosing Weight 60, kg, Start date : 08/11/16 15:59:00 ENRICHMENT ASSISTANT, Duration: 2 hr, Stop date: 08/11/16 15:59:00 ENRICHMENT ASSISTANT Notes: WASTE: F/P - Sink; [facility] Start Date: 08/11/16 Stop Date: 08/11/16 Status: Completed methimazole 10 mg, 1 tab, Route: PO, Drug form: TAB, Q8H, Dosing Weight 49.5, kg, Start date : 07/06/16 0:00:00 ENRICHMENT ASSISTANT, Duration: 30 day, Stop date: 08/04/16 16:00:00 ENRICHMENT ASSISTANT Start Date: 07/06/16 Stop Date: 07/07/16 Status: Discontinued metoprolol 5 mg/5 ml INJ 5 mg, 5 mL, Route: IVP, Drug form: INJ, ONCE, Dosing Weight 143, kg, Start date: 07/15/16 13:43:00 ENRICHMENT ASSISTANT, Stop date: 07/15/16 13:43:00 ENRICHMENT ASSISTANT Notes: (Same as: Lopressor)Push over 2 minutes Start Date: 07/15/16 Stop Date: 07/15/16 Status: Completed metoprolol tartrate 25 mg, 1 tab, Route: PO, Drug form: TAB, Q12H, Dosing Weight 60, kg, Start date: 08/14/16 21:00:00 ENRICHMENT ASSISTANT, Duration: 30 day, Stop date: 09/13/16 9:00:00 ENRICHMENT ASSISTANT Notes: (Same as: Lopressor) Start Date: 08/14/16 Stop Date: 08/17/16 Status: Discontinued metoprolol tartrate 25 mg oral tablet 25 mg=1 tab, PO, Q12H, 0 Refill(s) Start Date: 08/16/16 Status: Ordered morphine Sulfate 1 mg, 0.25 mL, Route: IVP, Drug form: SOLN, ONCE, Dosing Weight 60, kg, Start da te: 08/06/16 17:45:00 ENRICHMENT ASSISTANT, Stop date: 08/06/16 17:45:00 ENRICHMENT ASSISTANT Notes: (Same as:MORPhine Sulfate) Start Date: 08/06/16 Stop Date: 08/06/16 Status: Completed MORPhine sulfate BELLMAN 30 mg/30 ml INJ syringe 30 mg 30 mg, 30 mL, Route: IV, Initial Loading Dose: 2 mg, BELLMAN Dose: 1 mg, BELLMAN Lockou t: 10 minutes, Continuous Basal Rate: 0 mg, 4 Hour Limit (In MG): 30, Drug Form: INJ, Continuous, Start date: 07/06/16 10:00:00 ENRICHMENT ASSISTANT, Duration: 30 day, Stop date: 08/05/16... Notes: Dose: Delay: Basal rate: 4hr limit:( Same as:Shanti) Start Date: 07/06/16 Stop Date: 07/06/16 Status: Discontinued naloxone 0.04 mg, 0.1 mL, Route: IVP, Drug form: INJ, Q2MIN, Dosing Weight 65, kg, PRN Na rcotic Reversal, Start date: 07/06/16 9:42:00 ENRICHMENT ASSISTANT, Duration: 30 day, Stop date: 08/05/16 9:41:00 ENRICHMENT ASSISTANT Notes: Same as Narcrahul Start Date: 07/06/16 Stop Date: 07/15/16 Status: Discontinued naloxone 0.2 mg, 0.5 mL, Route: IVP, Drug form: INJ, Q5Min, Dosing Weight 65, kg, PRN Neto cotic Reversal, Start date: 07/06/16 9:42:00 ENRICHMENT ASSISTANT, Duration: 30 day, Stop date: 0 08/05/16 9:41:00 ENRICHMENT ASSISTANT Notes: Same as Narcan Start Date: 07/06/16 Stop Date: 07/15/16 Status: Discontinued Normodyne 20 mg, 4 mL, Route: IVP, Drug form: INJ, ONCE, Start date: 07/22/16 2:54:00 ENRICHMENT ASSISTANT, Stop date: 07/22/16 2:54:00 ENRICHMENT ASSISTANT Notes: (Same as: Normodyne, Trandate)Push over 2 minutes Give bolus over 2-3 mi nutes. Start Date: 07/22/16 Stop Date: 07/22/16 Status: Completed NS (Bolus) IV 500 mL, 500 ml/hr, Infuse Over: 1 hr, Route: IV, 500, Drug form: INJ, ONCE, Prio rity: STAT, Dosing Weight 60 kg, Start date: 08/14/16 11:17:00 ENRICHMENT ASSISTANT, Duration: 1 doses or times, Stop date: 08/14/16 11:17:00 ENRICHMENT ASSISTANT Start Date: 08/14/16 Stop Date: 08/14/16 Status: Completed Omnipaque 300 injectable solution 75 mL, Route: IVP, Drug Form: SOLN, Dosing Weight 60, kg, ONCALL, GFR > 45 mL/min, Start date: 08/13/16 8:00:00 ENRICHMENT ASSISTANT, Duration: 1 doses or times Notes: (Same as:Omnipaque 300).WASTE: F/P - Black; E - Municipal Trash Bin Start Date: 08/13/16 Stop Date: 08/13/16 Status: Completed Omnipaque 300 injectable solution 75 mL, Route: IVP, Drug Form: SOLN, Dosing Weight 60, kg, ONCALL, GFR > 45 mL/min, STAT, Start date: 07/27/16 15:51:00 ENRICHMENT ASSISTANT, Duration: 1 doses or times Notes: (Same as:Omnipaque 300).WASTE: F/P - Black; E - Municipal Trash Bin Start Date: 07/27/16 Stop Date: 07/27/16 Status: Completed Omnipaque 300 injectable solution 75 mL, Route: IVP, Drug Form: SOLN, Dosing Weight 60, kg, ONCALL, GFR > 45 mL/min, STAT, Start date: 08/06/16 17:41:00 ENRICHMENT ASSISTANT, Duration: 1 doses or times Notes: (Same as:Omnipaque 300).WASTE: F/P - Black; E - Municipal Trash Bin Start Date: 08/06/16 Stop Date: 08/06/16 Status: Completed ondansetron 4 mg, 2 mL, Route: IVP, Drug form: INJ, Q6H, Dosing Weight 49.5, kg, PRN Nausea & Vomiting, Start date: 07/05/16 17:10:00 ENRICHMENT ASSISTANT, Duration: 30 day, Stop date: 09/03/16 17:09:00 ENRICHMENT ASSISTANT Notes: (Same as: Sotero) MEDICATION WASTE Product Size: 4 mgProduct Was nakul: ___ mg Start Date: 07/05/16 Stop Date: 08/17/16 Status: Discontinued oxyCODONE 5 mg oral tablet 5 mg, 1 tab, Route: PO, Drug form: TAB, Q4H, Dosing Weight 49.5, kg, PRN Pain Sc ore 4-6, Start date: 07/05/16 17:13:00 ENRICHMENT ASSISTANT, Duration: 30 day, Stop date: 7 17:12:00 ENRICHMENT ASSISTANT Notes: (Same as: Roxicodone) Start Date: 07/05/16 Stop Date: 07/21/16 Status: Discontinued pantoprazole 40 mg, 1 tab, Route: PO, Drug form: ECTAB, Before Dinner, Dosing Weight 49.5, kg , Start date: 07/06/16 16:30:00 ENRICHMENT ASSISTANT, Duration: 30 day, Stop date: 09/03/16 16:30 :00 ENRICHMENT ASSISTANT Notes: Tablet should not be chewed or crushed.(Same as: Protonix) Start Date: 07/06/16 Stop Date: 08/06/16 Status: Discontinued pantoprazole 80 mg + sodium chloride 0.9% INJ 100 mL 100 mL, Rate: 10 ml/hr, Infuse over: 10 hr, Route: IVPB, Dosing Weight 60 kg, To seb Volume: 100, Infuse at 8 mg / hr for 72 hours for GI bleeding, Start date: 0 08/06/16 16:13:00 ENRICHMENT ASSISTANT, Duration: 72 hr, Stop date: 08/09/16 16:12:00 ENRICHMENT ASSISTANT Start Date: 08/06/16 Stop Date: 08/09/16 Status: Discontinued potassium chloride 10 mEq, 100 mL, Route: IVPB, Drug form: INJ, Q1H, Dosing Weight 143, kg, Total D ose=40 meq, Start date: 07/15/16 12:00:00 ENRICHMENT ASSISTANT, Duration: 4 doses or times, Stop date: 07/15/16 15:00:00 ENRICHMENT ASSISTANT, Peripheral Line Notes: Infuse at a rate of 10 mEq/hr.(Same as: KCL) Start Date: 07/15/16 Stop Date: 07/15/16 Status: Completed potassium chloride 20 mEq, 100 mL, Route: IVPB, Drug form: INJ, Q2H, Dosing Weight 60, kg, Total do se=40 mEq, Start date: 07/19/16 10:00:00 ENRICHMENT ASSISTANT, Duration: 2 doses or times, Stop d ate: 07/19/16 12:00:00 ENRICHMENT ASSISTANT, Central Line Notes: (Same as: KCL) Infuse no faster than 10 mEq/hr if given peripherally. Start Date: 07/19/16 Stop Date: 07/19/16 Status: Completed potassium chloride 20 mEq, 100 mL, Route: IVPB, Drug form: INJ, Q2H, Start date: 08/08/16 10:00:00 ENRICHMENT ASSISTANT, Duration: 3 doses or times, Stop date: 08/08/16 14:00:00 ENRICHMENT ASSISTANT Notes: (Same as: KCL) Infuse no faster than 10 mEq/hr if given peripherally. Start Date: 08/08/16 Stop Date: 08/08/16 Status: Completed potassium chloride 20 mEq, 100 mL, Route: IVPB, Drug form: INJ, Q2H, Dosing Weight 60, kg, Total do se=40 mEq, Start date: 07/18/16 10:00:00 ENRICHMENT ASSISTANT, Duration: 2 doses or times, Stop d ate: 07/18/16 12:00:00 ENRICHMENT ASSISTANT, Central Line Notes: (Same as: KCL) Infuse no faster than 10 mEq/hr if given peripherally. Start Date: 07/18/16 Stop Date: 07/18/16 Status: Completed potassium chloride 20 mEq, 100 mL, Route: IVPB, Drug form: INJ, Q2H, Dosing Weight 60, kg, Total do se=40 mEq, Start date: 07/21/16 10:00:00 ENRICHMENT ASSISTANT, Duration: 2 doses or times, Stop d ate: 07/21/16 12:00:00 ENRICHMENT ASSISTANT, Central Line Notes: (Same as: KCL) Infuse no faster than 10 mEq/hr if given peripherally. Start Date: 07/21/16 Stop Date: 07/21/16 Status: Completed potassium chloride 20 mEq, 100 mL, Route: IVPB, Drug form: INJ, Q2H, Dosing Weight 60, kg, Total do se=40 mEq, Start date: 07/22/16 10:00:00 ENRICHMENT ASSISTANT, Duration: 2 doses or times, Stop d ate: 07/22/16 12:00:00 ENRICHMENT ASSISTANT, Central Line Notes: (Same as: KCL) Infuse no faster than 10 mEq/hr if given peripherally. Start Date: 07/22/16 Stop Date: 07/22/16 Status: Completed potassium chloride 20 mEq, 100 mL, Route: IVPB, Drug form: INJ, Q2H, Dosing Weight 65, kg, Total do se=60 mEq, Start date: 07/06/16 10:00:00 ENRICHMENT ASSISTANT, Duration: 3 doses or times, Stop d ate: 07/06/16 14:00:00 ENRICHMENT ASSISTANT, Central Line Notes: (Same as: KCL) Infuse no faster than 10 mEq/hr if given peripherally. Start Date: 07/06/16 Stop Date: 07/06/16 Status: Completed potassium chloride 20 mEq, 100 mL, Route: IVPB, Drug form: INJ, Q2H, Start date: 07/08/16 11:30:00 ENRICHMENT ASSISTANT, Duration: 2 doses or times, Stop date: 07/08/16 13:30:00 ENRICHMENT ASSISTANT Notes: (Same as: KCL) Infuse no faster than 10 mEq/hr if given peripherally. Start Date: 07/08/16 Stop Date: 07/08/16 Status: Completed potassium chloride 10 mEq, Route: IVPB, Q1H, Dosing Weight 65, kg, Total Dose=40 meq, Start date: 1 09/08/15 11:00:00 ENRICHMENT ASSISTANT, Duration: 4 doses or times, Stop date: 07/08/16 14:00:[address], Peripheral Line Start Date: 07/08/16 Stop Date: 07/08/16 Status: Deleted potassium chloride 10 mEq, 100 mL, Route: IVPB, Drug form: INJ, Q1H, Dosing Weight 65, kg, Total Do se=40 meq, Start date: 07/10/16 14:00:00 ENRICHMENT ASSISTANT, Duration: 4 doses or times, Stop d ate: 07/10/16 17:00:00 ENRICHMENT ASSISTANT, Peripheral Line Notes: Infuse at a rate of 10 mEq/hr.(Same as: KCL) Start Date: 07/10/16 Stop Date: 07/10/16 Status: Completed potassium chloride 10 mEq, 100 mL, Route: IVPB, Drug form: INJ, Q1H, Dosing Weight 60, kg, Total Do se=20 meq, Start date: 08/16/16 9:00:00 ENRICHMENT ASSISTANT, Duration: 2 doses or times, Stop da te: 08/16/16 10:00:00 ENRICHMENT ASSISTANT, Peripheral Line Notes: Infuse at a rate of 10 mEq/hr.(Same as: KCL) Start Date: 08/16/16 Stop Date: 08/16/16 Status: Completed potassium chloride 20 mEq oral tablet, extended release 20 mEq, 1 tab, Route: PO, Drug form: ERTAB, Daily, Dosing Weight 65, kg, Start d ate: 07/08/16 9:00:00 ENRICHMENT ASSISTANT, Duration: 30 day, Stop date: 08/06/16 9:00:00 ENRICHMENT ASSISTANT Notes: (Same as: K-Dur 20)"Do Not Crush" With food and full glass of water Start Date: 07/08/16 Stop Date: 07/18/16 Status: Discontinued potassium chloride 20 mEq oral tablet, extended release 40 mEq, 2 tab, Route: PO, Drug form: ERTAB, Daily, Dosing Weight 60, kg, Start d ate: 07/19/16 9:00:00 ENRICHMENT ASSISTANT, Duration: 30 day, Stop date: 08/17/16 9:00:00 ENRICHMENT ASSISTANT Notes: (Same as: K-Dur 20)"Do Not Crush" With food and full glass of water Start Date: 07/19/16 Stop Date: 08/10/16 Status: Discontinued potassium chloride 20 mEq/15 mL oral liquid 40 mEq, 30 mL, Route: NG, Drug form: LIQ, ONCE, Dosing Weight 60, kg, Start date : 08/10/16 15:32:00 ENRICHMENT ASSISTANT, Stop date: 08/10/16 15:32:00 ENRICHMENT ASSISTANT Notes: (Same as: Potassium Chloride) Start Date: 08/10/16 Stop Date: 08/10/16 Status: Completed potassium chloride 20 mEq/15 mL oral liquid 40 mEq, 30 mL, Route: PO, Drug form: LIQ, Daily, Dosing Weight 60, kg, Start chely e: 08/13/16 9:00:00 ENRICHMENT ASSISTANT, Duration: 30 day, Stop date: 09/11/16 9:00:00 ENRICHMENT ASSISTANT Notes: (Same as: Potassium Chloride) Start Date: 08/13/16 Stop Date: 08/17/16 Status: Discontinued potassium chloride 20 mEq/15 mL oral liquid 40 mEq, 30 mL, Route: PO, Drug form: LIQ, ONCE, Dosing Weight 60, kg, Start date : 08/10/16 15:31:00 ENRICHMENT ASSISTANT, Stop date: 08/10/16 15:31:00 ENRICHMENT ASSISTANT Notes: (Same as: Potassium Chloride) Start Date: 08/10/16 Stop Date: 08/10/16 Status: Discontinued potassium chloride 20 mEq/15 mL oral liquid 40 mEq=30 mL, PO, Daily, 0 Refill(s) Start Date: 08/16/16 Status: Ordered potassium phosphate 15 mmol, 250 mL, Route: IVPB, Drug form: INJ, ONCE, Dosing Weight 60, kg, Start date: 08/12/16 16:15:00 ENRICHMENT ASSISTANT, Stop date: 08/12/16 16:15:00 ENRICHMENT ASSISTANT Notes: (Same as: K Phosphate) Start Date: 08/12/16 Stop Date: 08/12/16 Status: Completed potassium phosphate 30 mmol, 250 mL, Route: IVPB, Drug form: INJ, ONCE, Dosing Weight 60, kg, Start date: 08/09/16 14:20:00 ENRICHMENT ASSISTANT, Stop date: 08/09/16 14:20:00 ENRICHMENT ASSISTANT Notes: (Same as: K Phosphate.) Start Date: 08/09/16 Stop Date: 08/09/16 Status: Completed potassium phosphate 30 mmol, 250 mL, Route: IVPB, Drug form: INJ, ONCE, Dosing Weight 60, kg, Start date: 08/13/16 16:55:00 ENRICHMENT ASSISTANT, Stop date: 08/13/16 16:55:00 ENRICHMENT ASSISTANT Notes: (Same as: K Phosphate.) Start Date: 08/13/16 Stop Date: 08/13/16 Status: Completed potassium phosphate-sodium phosphate 250 mg-280 mg-160 mg oral powder for recons titution 2 pkt, Route: PO, Drug Form: PDR/REC, Dosing Weight 60, kg, Q4H, Start date: 16:00:00 ENRICHMENT ASSISTANT, Duration: 2 doses or times, Stop date: 08/11/16 20:00:00 ENRICHMENT ASSISTANT Notes: (Same as: Phos-NaK) Each 1.5 gm pkt has 250mg phosphorous. Mix w/2.5oz w ater and stir. Start Date: 08/11/16 Stop Date: 08/11/16 Status: Completed Prevacid 30 mg, 10 mL, Route: PO, Drug form: SUSP, Before Dinner, Start date: 08/09/16 16 :30:00 ENRICHMENT ASSISTANT, Duration: 30 day, Stop date: 09/07/16 16:30:00 ENRICHMENT ASSISTANT Notes: Take 1 hour before or 2 hours after meal; Expires in 14 days. Shake well before use. (Same as:Prevacid) Compounded Product - formulation not commerci ally available Start Date: 08/09/16 Stop Date: 08/17/16 Status: Discontinued promethazine 25 mg, 1 mL, Route: IV Central, Drug form: INJ, Q4H, Dosing Weight 60, kg, PRN N ausea & Vomiting, Start date: 08/07/16 22:11:00 ENRICHMENT ASSISTANT, Duration: 30 day, Stop date: 09/06/16 22:10:00 ENRICHMENT ASSISTANT Notes: Do not give IV push. (Same as: Phenergan) Start Date: 08/07/16 Stop Date: 08/11/16 Status: Discontinued promethazine 25 mg, 1 mL, Route: IM, Drug form: INJ, Q4H, Dosing Weight 60, kg, PRN Nausea & Vomiting, Start date: 08/10/16 14:00:00 ENRICHMENT ASSISTANT, Duration: 30 day, Stop date: 09/09 13:59:00 ENRICHMENT ASSISTANT Notes: Do not give IV push. (Same as: Phenergan) Start Date: 08/10/16 Stop Date: 08/17/16 Status: Discontinued propranolol 40 mg, 1 tab, Route: PO, Drug form: TAB, QID, Dosing Weight 60, kg, Start date: 07/22/16 9:00:00 ENRICHMENT ASSISTANT, Duration: 30 day, Stop date: 08/20/16 21:00:00 ENRICHMENT ASSISTANT Notes: Give with food.(Same as: Inderal) Start Date: 07/22/16 Stop Date: 08/10/16 Status: Discontinued propranolol 40 mg, 1 tab, Route: PO, Drug form: TAB, QID, Dosing Weight 49.5, kg, Start date : 07/05/16 21:00:00 ENRICHMENT ASSISTANT, Duration: 30 day, Stop date: 08/04/16 17:00:00 ENRICHMENT ASSISTANT Notes: Give with food.(Same as: Inderal) Start Date: 07/05/16 Stop Date: 07/21/16 Status: Discontinued Protonix 40 mg, Route: NG, Drug form: GRAN/REC, Before Dinner, Dosing Weight 60, kg, Star t date: 08/09/16 16:30:00 ENRICHMENT ASSISTANT, Duration: 30 day, Stop date: 09/07/16 16:30:00 CS T Start Date: 08/09/16 Stop Date: 08/09/16 Status: Deleted Readi-Cat 2 450 mL, Route: PO, Drug Form: SUSP, ONCALL, Start date: 07/18/16 14:00:00 ENRICHMENT ASSISTANT, D uration: 30 day, Stop date: 08/17/16 13:59:00 ENRICHMENT ASSISTANT Notes: Same as Readi-Cat 2 Start Date: 07/18/16 Stop Date: 07/18/16 Status: Completed Readi-Cat 2 450 mL, Route: PO, Drug Form: SUSP, ONCALL, Start date: 08/13/16 3:00:00 ENRICHMENT ASSISTANT, Du ration: 30 day, Stop date: 09/12/16 2:59:00 ENRICHMENT ASSISTANT Notes: Same as Readi-Cat 2 Start Date: 08/13/16 Stop Date: 08/13/16 Status: Completed Rocephin + sodium chloride 0.9% INJ 100 mL 1 gm, Route: IVPB, [id number], Dosing Weight 60, kg, Start date: 07/23/16 11:00:00 ENRICHMENT ASSISTANT, Duration: 30 day, Stop date: 08/21/16 11:00:00 ENRICHMENT ASSISTANT Notes: (Same As: Rocephin).Use with 100 mL NS and infuse over 30 min MEDICA TION WASTE Product Size: 1000 mgProduct Wasted: ___ mg Start Date: 07/23/16 Stop Date: 08/06/16 Status: Discontinued sodium chloride 0.9% 1000 ml INJ 1,000 mL 1,000 mL, Rate: 60 ml/hr, Infuse over: 16.7 hr, Route: IV, Dosing Weight 60 kg, Total Volume: 1,000, Start date: 07/21/16 10:41:00 ENRICHMENT ASSISTANT, Duration: 30 day, Stop d ate: 08/20/16 10:40:00 ENRICHMENT ASSISTANT Start Date: 07/21/16 Stop Date: 07/21/16 Status: Discontinued Sodium Chloride 0.9% IV 250 mL, Route: IVPB, Start date: 07/22/16 16:05:00 ENRICHMENT ASSISTANT, Duration: 30 day, Stop d ate: 09/20/16 16:04:00 ENRICHMENT ASSISTANT, PRN Line Flush Start Date: 07/22/16 Stop Date: 08/17/16 Status: Discontinued sodium phosphate 30 mmol, 250 mL, Route: IVPB, Drug form: INJ, ONCE, Dosing Weight 60, kg, Start date: 08/15/16 12:22:00 ENRICHMENT ASSISTANT, Stop date: 08/15/16 12:22:00 ENRICHMENT ASSISTANT Start Date: 08/15/16 Stop Date: 08/15/16 Status: Completed sodium phosphate 30 mmol, 250 mL, Route: IVPB, Drug form: INJ, PRN, Dosing Weight 60, kg, PRN Abn ormal Lab Result, Start date: 08/15/16 9:14:00 ENRICHMENT ASSISTANT, Duration: 30 day, Stop date: 09/14/16 9:13:00 ENRICHMENT ASSISTANT Start Date: 08/15/16 Stop Date: 08/15/16 Status: Discontinued Tapazole 10 mg, 1 tab, Route: PO, Drug form: TAB, Q8H, Dosing Weight 49.5, kg, Start date : 07/07/16 9:30:00 ENRICHMENT ASSISTANT, Duration: 30 day, Stop date: 09/05/16 8:00:00 ENRICHMENT ASSISTANT Start Date: 07/07/16 Stop Date: 08/17/16 Status: Discontinued TPN solution, adult 1,130 mL 1,130 mL, Rate: 45 ml/hr, Infuse over: 25.1 hr, Route: IV, Dosing Weight 60 kg, Total Volume: 1,130, Start date: 07/18/16 22:00:00 ENRICHMENT ASSISTANT, Stop date: 08/17/16 21:5 9:00 ENRICHMENT ASSISTANT Notes: Per hospital policy, bag must be changed every 24hr. Start Date: 07/18/16 Stop Date: 08/09/16 Status: Discontinued TPN solution, adult 2,042 mL 2,042 mL, Rate: 83 ml/hr, Infuse over: 24.6 hr, Route: IV, Dosing Weight 65 kg, Total Volume: 2,042, Start date: 07/06/16 22:00:00 ENRICHMENT ASSISTANT, Stop date: 07/18/16 22:0 0:00 ENRICHMENT ASSISTANT Notes: Per hospital policy, bag must be changed every 24hr. Start Date: 07/06/16 Stop Date: 07/18/16 Status: Completed trazodone 50 mg, 1 tab, Route: PO, Drug form: TAB, Bedtime, Dosing Weight 60, kg, PRN Inso mnia, Start date: 08/13/16 19:03:00 ENRICHMENT ASSISTANT, Duration: 30 day, Stop date: 09/12/16 1 9:02:00 ENRICHMENT ASSISTANT Notes: (Same As: Desyrel) Start Date: 08/13/16 Stop Date: 08/17/16 Status: Discontinued Tylenol with Codeine #3 oral tablet 1 tab, Route: PO, Drug Form: TAB, Dosing Weight 60, kg, Q6H, PRN Pain Score 1-5, Start date: 07/17/16 15:43:00 ENRICHMENT ASSISTANT, Duration: 30 day, Stop date: 09/15/16 15:42: 00 ENRICHMENT ASSISTANT Notes: Do not exceed 4gm/day of acetaminophen. (Same as: Tylenol with Codeine # 3) Start Date: 07/17/16 Stop Date: 08/17/16 Status: Discontinued VANCOMCYIN Pharmacy Dosing Protocol VANCOMCYIN Pharmacy Dosing Protocol, misc, Drug form: MISC, Route: MISC, ONCALL, 08/14/16 16:00:00 ENRICHMENT ASSISTANT, Duration: 30 day, Stop date: 09/13/16 15:59:00 ENRICHMENT ASSISTANT Start Date: 08/14/16 Stop Date: 08/17/16 Status: Discontinued vancomycin 1.25 gm, 250 mL, Route: IVPB, Drug form: INJ, [id number], Start date: 08/17/16 16:00 :00 ENRICHMENT ASSISTANT, Duration: 30 day, Stop date: 09/16/16 8:00:00 ENRICHMENT ASSISTANT Notes: TIME CRITICAL MEDICATIONSame as: Vancocin-NS (premixed)Infusion rate< 1000 mg: infuse over 1 [id number] - 1500 mg: infuse over 1.5 [id number] - 2000 mg: infuse over 2 hours> 2001 mg: infuse over 2.5 hours Start Date: 08/17/16 Stop Date: 08/17/16 Status: Discontinued vancomycin + sodium chloride 0.9% INJ 250 mL 1,000 mg, Route: IVPB, [id number], Start date: 08/16/16 1:00:00 ENRICHMENT ASSISTANT, Duration: 30 da y, Stop date: 09/14/16 17:00:00 ENRICHMENT ASSISTANT Notes: TIME CRITICAL MEDICATION(Same As: Vancocin)Infusion rate< 1000 mg: infuse over 1 [id number] - 1500 mg: infuse over 1.5 [id number] - 2000 mg: infuse over 2 hours> 2001 mg: infuse over 2.5 hours MEDICATION WASTE Product Size: 1000 mgProduct Wasted: ___ mg Start Date: 08/16/16 Stop Date: 08/17/16 Status: Discontinued vancomycin + sodium chloride 0.9% INJ 250 mL 1,000 mg, Route: IVPB, [id number], Start date: 08/07/16 23:00:00 ENRICHMENT ASSISTANT, Stop date: 23:00:00 ENRICHMENT ASSISTANT Notes: TIME CRITICAL MEDICATION(Same As: Vancocin)Infusion rate< 1000 mg: infuse over 1 [id number] - 1500 mg: infuse over 1.5 [id number] - 2000 mg: infuse over 2 hours> 2001 mg: infuse over 2.5 hours MEDICATION WASTE Product Size: 1000 mgProduct Wasted: ___ mg Start Date: 08/07/16 Stop Date: 08/10/16 Status: Discontinued vancomycin + sodium chloride 0.9% INJ 250 mL 1 gm, Route: IVPB, [id number], Dosing Weight 60, kg, Start date: 08/14/16 0:00:[address], Duration: 30 day, Stop date: 09/12/16 12:00:00 ENRICHMENT ASSISTANT Notes: TIME CRITICAL MEDICATION(Same As: Vancocin)Infusion rate< 1000 mg: infuse over 1 [id number] - 1500 mg: infuse over 1.5 [id number] - 2000 mg: infuse over 2 hours> 2001 mg: infuse over 2.5 hours MEDICATION WASTE Product Size: 1000 mgProduct Wasted: ___ mg Start Date: 08/14/16 Stop Date: 08/16/16 Status: Discontinued vancomycin + sodium chloride 0.9% INJ 250 mL 1 gm, Route: IVPB, [id number], Dosing Weight 60, kg, Start date: 08/13/16 15:00:00 ENRICHMENT ASSISTANT, Duration: 30 day, Stop date: 09/12/16 0:00:00 ENRICHMENT ASSISTANT Notes: TIME CRITICAL MEDICATION(Same As: Vancocin)Infusion rate< 1000 mg: infuse over 1 [id number] - 1500 mg: infuse over 1.5 [id number] - 2000 mg: infuse over 2 hours> 2001 mg: infuse over 2.5 hours MEDICATION WASTE Product Size: 1000 mgProduct Wasted: ___ mg Start Date: 08/13/16 Stop Date: 08/13/16 Status: Deleted Vancomycin Pharmacy Dosing 1 ea, Route: MISC, Dosing Weight 60, kg, ONCALL, Start date: 08/14/16 16:00:[address], Duration: 1 doses or times, Pharmacy to dose Start Date: 08/14/16 Stop Date: 08/14/16 Status: Deleted Vancomycin Pharmacy Dosing 1 ea, Route: MISC, Drug Form: INJ, Dosing Weight 60, kg, ONCALL, Start date: 15:00:00 ENRICHMENT ASSISTANT, Duration: 1 doses or times, Pharmacy to dose Notes: TIME CRITICAL MEDICATION(Same As: Vancocin)Infusion rate< 1000 mg: infuse over 1 [id number] - 1500 mg: infuse over 1.5 [id number] - 2000 mg: infuse over 2 hours> 2001 mg: infuse over 2.5 hours MEDICATION WASTE Product Size: 1000 mgProduct Wasted: ___ mg Start Date: 08/13/16 Stop Date: 08/14/16 Status: Discontinued Vancomycin Pharmacy Following Vancomycin Pharmacy Following, 1 ea, Drug form: MISC, Route: MISC, PRN, PRN Othe r -See Comment, 08/07/16 22:50:00 ENRICHMENT ASSISTANT, Duration: 30 day, Stop date: 09/06/16 22: 49:00 ENRICHMENT ASSISTANT Start Date: 08/07/16 Stop Date: 08/14/16 Status: Discontinued Zofran 4 mg, Route: IVP, Drug form: INJ, ONCE, Dosing Weight 60, kg, Start date: 17:25:00 ENRICHMENT ASSISTANT, Stop date: 08/06/16 17:25:00 ENRICHMENT ASSISTANT Start Date: 08/06/16 Stop Date: 08/06/16 Status: Completed Zosyn + sodium chloride 0.9% INJ 100 mL 3.375 gm, Route: IVPB, [id number], Dosing Weight 60, kg, Start date: 07/21/16 11:00: 00 ENRICHMENT ASSISTANT, Duration: 30 day, Stop date: 08/20/16 5:00:00 ENRICHMENT ASSISTANT Notes: (Same as: Zosyn)Dosing based on Piperacillin component MEDICATION [place] AZAEL Product Size: 3375 mgProduct Wasted: ___ mg Start Date: 07/21/16 Stop Date: 07/23/16 Status: Discontinued Zosyn + sodium chloride 0.9% INJ 100 mL 3.375 gm, Route: IVPB, [id number], Dosing Weight 60, kg, CrCl >=20 ml/min infuse over 4 hours, Start date: 08/06/16 21:00:00 ENRICHMENT ASSISTANT, Duration: 30 day, Stop date: 09/05/16 13:00:00 ENRICHMENT ASSISTANT Notes: (Same as: Zosyn)Dosing based on Piperacillin component MEDICATION [place] AZAEL Product Size: 3375 mgProduct Wasted: ___ mg Start Date: 08/06/16 Stop Date: 08/13/16 Status: Discontinued Results BLOOD BANK RESULTS 1 2 3 Most recent to oldest [Reference Range]: O POS *Unknown* (07/12/16 11:29 AM) ABO/Rh Negative (07/12/16 11:29 AM) Antibody Scrn Product available (07/12/16 11:12 AM) Product available (07/12/16 10:15 AM) RBC product ELECTROLYTES 1 2 3 Most recent to oldest [Reference Range]: 136 mEq/L (08/17/16 5:59 AM) 134 mEq/L *LOW* (08/17/16 5:59 AM) 135 mEq/L (08/16/16 5:07 AM) Sodium Lvl [135-145 mEq/L] 3.9 mEq/L (08/17/16 5:59 AM) 3.9 mEq/L (08/17/16 5:59 AM) 3.2 mEq/L *LOW* (08/16/16 5:07 AM) Potassium Lvl [3.5-5.1 mEq/L] 99 mEq/L (08/17/16 5:59 AM) 97 mEq/L (08/17/16 5:59 AM) 98 mEq/L (08/16/16 5:07 AM) Chloride Lvl [95-109 mEq/L] 24 mEq/L (08/17/16 5:59 AM) 29 mEq/L (08/17/16 5:59 AM) 28 mEq/L (08/16/16 5:07 AM) CO2 [24-32 mEq/L] 16.9 mEq/L (08/17/16 5:59 AM) 11.9 mEq/L (08/17/16 5:59 AM) 12.2 mEq/L (08/16/16 5:07 AM) AGAP [10.0-20.0 mEq/L] CHEM PANEL 1 2 3 Most recent to oldest [Reference Range]: 0.20 mg/dL *LOW* (08/17/16 5:59 AM) 0.20 mg/dL *LOW* (08/17/16 5:59 AM) 0.20 mg/dL *LOW* (08/16/16 5:07 AM) Creatinine Lvl [0.50-1.40 mg/dL] 163 mL/min/1.73m2 1 *NA* (08/17/16 5:59 AM) 163 mL/min/1.73m2 2 *NA* (08/17/16 5:59 AM) 163 mL/min/1.73m2 3 *NA* (08/16/16 5:07 AM) eGFR 7 mg/dL (08/17/16 5:59 AM) 8 mg/dL (08/17/16 5:59 AM) 9 mg/dL (08/16/16 5:07 AM) BUN [7-22 mg/dL] 50 *HI* (08/15/16 4:55 AM) 40 *HI* (08/14/16 5:26 AM) 40 *HI* (08/13/16 3:43 AM) B/C Ratio [6-25] 87 mg/dL (08/17/16 5:59 AM) 90 mg/dL (08/17/16 5:59 AM) 130 mg/dL *HI* (08/16/16 5:07 AM) Glucose Lvl [70-99 mg/dL] 8.2 g/dL (08/15/16 4:55 AM) 8.0 g/dL (08/14/16 5:26 AM) 7.6 g/dL (08/13/16 3:43 AM) Total Protein [6.4-8.4 g/dL] 3.2 g/dL *LOW* (08/17/16 5:59 AM) 3.8 g/dL (08/15/16 4:55 AM) 3.1 g/dL *LOW* (08/14/16 5:26 AM) Albumin Lvl [3.5-5.0 g/dL] 4.4 g/dL *HI* (08/15/16 4:55 AM) 4.9 g/dL *HI* (08/14/16 5:26 AM) 4.7 g/dL *HI* (08/13/16 3:43 AM) Globulin [2.7-4.2 g/dL] 0.9 (08/15/16 4:55 AM) 0.6 *LOW* (08/14/16 5:26 AM) 0.6 *LOW* (08/13/16 3:43 AM) A/G Ratio [0.7-1.6] 8.5 mg/dL (08/17/16 5:59 AM) 9.3 mg/dL (08/17/16 5:59 AM) 9.2 mg/dL (08/16/16 5:07 AM) Calcium Lvl [8.5-10.5 mg/dL] 2.6 mg/dL (08/17/16 5:59 AM) 3.2 mg/dL (08/16/16 5:07 AM) 1.9 mg/dL *LOW* (08/15/16 4:55 AM) Phosphorus [2.5-4.5 mg/dL] 1.9 mg/dL (08/17/16 5:59 AM) 1.8 mg/dL (08/16/16 5:07 AM) 1.8 mg/dL (08/15/16 4:55 AM) Magnesium Lvl [1.8-2.4 mg/dL] 24 unit/L (08/15/16 4:55 AM) 19 unit/L (08/14/16 5:26 AM) 17 unit/L (08/13/16 3:43 AM) ALT [0-65 unit/L] 57 unit/L *HI* (08/15/16 4:55 AM) 27 unit/L (08/14/16 5:26 AM) 26 unit/L (08/13/16 3:43 AM) AST [0-37 unit/L] 666 unit/L *HI* (08/15/16 4:55 AM) 594 unit/L *HI* (08/14/16 5:26 AM) 424 unit/L *HI* (08/13/16 3:43 AM) Alk Phos [39-136 unit/L] 0.4 mg/dL (08/15/16 4:55 AM) 0.5 mg/dL (08/14/16 5:26 AM) 0.7 mg/dL (08/13/16 3:43 AM) Bili Total [0.2-1.3 mg/dL] 0.1 mg/dL (08/06/16 7:30 AM) 0.1 mg/dL (08/02/16 3:58 PM) 0.1 mg/dL (07/30/16 4:45 AM) Bili Direct [0.0-0.3 mg/dL] 0.2 mg/dL (08/02/16 3:58 PM) 0.2 mg/dL (07/30/16 4:45 AM) 0.4 mg/dL (07/23/16 5:27 AM) Bili Indirect [0.0-1.0 mg/dL] 277 unit/L (08/17/16 5:59 AM) 760 unit/L *HI* (08/08/16 5:20 AM) 716 unit/L *HI* (08/07/16 5:14 AM) Lipase Lvl [73-393 unit/L] 1.1 mMol/L (08/02/16 3:58 PM) Lactic Acid Lvl [0.5-2.2 mMol/L] 1Result [...] be mul tiplied by the estimated BMI. LIPIDS 1 2 3 Most recent to oldest [Reference Range]: 47 mg/dL (08/06/16 7:30 AM) 46 mg/dL (07/30/16 4:45 AM) 74 mg/dL (07/23/16 5:27 AM) Trig [<=149 mg/dL] SPECIAL CHEMISTRY 1 2 3 Most recent to oldest [Reference Range]: 7.0 % *HI* (07/06/16 4:46 AM) Hgb A1C [<=5.6 %] ANEMIA STUDY 1 2 3 Most recent to oldest [Reference Range]: 318 ng/mL *HI* (08/17/16 5:59 AM) Ferritin Lvl [5-204 ng/mL] PARATHYROID PROFILE 1 2 3 Most recent to oldest [Reference Range]: 1.19 mMol/L (08/17/16 5:59 AM) 1.10 mMol/L (08/15/16 4:55 AM) 1.11 mMol/L (08/14/16 5:26 AM) Ca Ion WB [1.05-1.25 mMol/L] 1.20 mMol/L (08/17/16 5:59 AM) 1.13 mMol/L (08/15/16 4:55 AM) 1.15 mMol/L (08/14/16 5:26 AM) Ca Norm WB [1.05-1.25 mMol/L] TOXICOLOGY 1 2 3 Most recent to oldest [Reference Range]: [id number] *NA* (08/17/16 8:48 AM) [id number] *NA* (08/15/16 11:32 PM) [id number] *NA* (08/14/16 12:01 PM) [facility] Tr TND 9.4 ug/ml *NA* (08/17/16 8:48 AM) 5.2 ug/ml *NA* (08/15/16 11:32 PM) 2.7 ug/ml *NA* (08/14/16 12:01 PM) [facility] URINE AND STOOL 1 2 3 Most recent to oldest [Reference Range]: Moderate *ABN* (07/23/16 11:31 AM) UA Turbidity [Clear] Yellow *NA* (07/23/16 11:31 AM) UA Color [Yellow] 7.0 (07/23/16 11:31 AM) UA pH [5.0-8.0] 1.014 (07/23/16 11:31 AM) UA Spec Grav [<=1.030] 150 mg/dL *ABN* (07/23/16 11:31 AM) UA Glucose [Negative mg/dL] Small *ABN* (07/23/16 11:31 AM) UA Blood [Negative] Negative mg/dL *NA* (07/23/16 11:31 AM) UA Ketones [Negative mg/dL] 100 mg/dL *ABN* (07/23/16 11:31 AM) UA Protein [Negative mg/dL] <=1.0 mg/dL *NA* (07/23/16 11:31 AM) UA Urobilinogen [0.1-1.0 mg/dL] Negative *NA* (07/23/16 11:31 AM) UA Bili [Negative] Trace *ABN* (07/23/16 11:31 AM) UA Leuk Est [Negative] Negative (07/23/16 11:31 AM) UA Nitrite [Negative] 1 /HPF (07/23/16 11:31 AM) UA WBC [0-5 /HPF] 20 /HPF *HI* (07/23/16 11:31 AM) UA RBC [0-2 /HPF] Occasional /HPF *NA* (07/23/16 11:31 AM) UA Bacteria [None Seen /HPF] Occasional /LPF *NA* (07/23/16 11:31 AM) UA Sq Epi [Few /LPF] Occasional /HPF *NA* (07/23/16 11:31 AM) UA Amorph Ivory [None Seen /HPF] Performed *NA* (07/23/16 11:31 AM) Micro? BODY FLUIDS 1 2 3 Most recent to oldest [Reference Range]: >10669 unit/L 1 *NA* (08/06/16 4:43 PM) Amylase BF Cyst 2.2 g/dL *NA* (07/19/16 9:01 AM) Albumin BF Ascites *NA* (07/19/16 9:01 AM) Alb BF Type Ascites (07/19/16 9:01 AM) LDH BF Type >23085 unit/L *NA* (08/07/16 1:29 PM) >69654 unit/L *NA* (08/06/16 4:43 PM) Lipase BF Paracen (08/07/16 1:29 PM) OTHER (08/06/16 4:43 PM) Lipase BF Type 940 unit/L *NA* (07/19/16 9:01 AM) LDH BF Dark Yellow (07/19/16 9:01 AM) Color BF [Colorless] Slight Cloudy (07/19/16 9:01 AM) Clarity BF [Clear] 300 /mm3 *NA* (07/19/16 9:01 AM) RBC BF 188 /mm3 *NA* (07/19/16 9:01 AM) WBC BF 43 % *NA* (07/19/16 9:01 AM) Segs BF 3 % *NA* (07/19/16 9:01 AM) Lymph BF 54 % *NA* (07/19/16 9:01 AM) Macrophage BF Ascites (07/19/16 9:01 AM) CellCnt BF Type 1Result Comment: [place] [id number] IMMUNOLOGY 1 2 3 Most recent to oldest [Reference Range]: 5.3 mg/dL *LOW* (08/17/16 5:59 AM) 8.1 mg/dL *LOW* (08/06/16 7:30 AM) 4.1 mg/dL *LOW* (07/30/16 4:45 AM) Prealbumin [18.0-45.0 mg/dL] Negative *NA* (07/26/16 5:43 AM) Hep Bs Ag [Negative] Negative *NA* (07/26/16 5:43 AM) Hep B Core IgM [Negative] Negative *NA* (07/26/16 5:43 AM) Hep A IgM [Negative] Negative *NA* (07/26/16 5:43 AM) Hep C Ab HEMATOLOGY 1 2 3 Most recent to oldest [Reference Range]: 5.5 K/CMM (08/17/16 5:59 AM) 7.2 K/CMM (08/15/16 4:55 AM) 7.1 K/CMM (08/14/16 12:01 PM) WBC [3.7-10.4 K/CMM] 3.19 M/CMM *LOW* (08/17/16 5:59 AM) 3.14 M/CMM *LOW* (08/15/16 4:55 AM) 3.21 M/CMM *LOW* (08/14/16 12:01 PM) RBC [4.20-5.40 M/CMM] 9.6 g/dL *LOW* (08/17/16 5:59 AM) 9.3 g/dL *LOW* (08/15/16 4:55 AM) 9.4 g/dL *LOW* (08/14/16 12:01 PM) Hgb [12.0-16.0 g/dL] 28.7 % *LOW* (08/17/16 5:59 AM) 28.6 % *LOW* (08/15/16 4:55 AM) 28.5 % *LOW* (08/14/16 12:01 PM) Hct [36.0-48.0 %] 89.9 fL (08/17/16 5:59 AM) 91.0 fL (08/15/16 4:55 AM) 89.0 fL (08/14/16 12:01 PM) MCV [80.0-98.0 fL] 30.1 pg (08/17/16 5:59 AM) 29.5 pg (08/15/16 4:55 AM) 29.3 pg (08/14/16 12:01 PM) MCH [27.0-31.0 pg] 33.4 g/dL (08/17/16 5:59 AM) 32.5 g/dL (08/15/16 4:55 AM) 32.9 g/dL (08/14/16 12:01 PM) MCHC [32.0-36.0 g/dL] 16.9 % *HI* (08/17/16 5:59 AM) 16.9 % *HI* (08/15/16 4:55 AM) 16.7 % *HI* (08/14/16 12:01 PM) RDW [11.5-14.5 %] 283 K/CMM (08/17/16 5:59 AM) 261 K/CMM (08/15/16 4:55 AM) 261 K/CMM (08/14/16 12:01 PM) Platelet [133-450 K/CMM] 11.6 fL *HI* (08/17/16 5:59 AM) 12.8 fL *HI* (08/15/16 4:55 AM) 12.1 fL *HI* (08/14/16 12:01 PM) MPV [7.4-10.4 fL] 59.7 % (08/17/16 5:59 AM) 63.3 % (08/15/16 4:55 AM) 74.5 % (08/11/16 5:41 AM) Segs [45.0-75.0 %] 26.5 % (08/17/16 5:59 AM) 22.0 % (08/15/16 4:55 AM) 14.9 % *LOW* (08/11/16 5:41 AM) Lymphocytes [20.0-40.0 %] 9.6 % (08/17/16 5:59 AM) 9.9 % (08/15/16 4:55 AM) 9.3 % (08/11/16 5:41 AM) Monocytes [2.0-12.0 %] 3.5 % (08/17/16 5:59 AM) 4.1 % *HI* (08/15/16 4:55 AM) 0.6 % (08/11/16 5:41 AM) Eosinophils [0.0-4.0 %] 0.7 % (08/17/16 5:59 AM) 0.7 % (08/15/16 4:55 AM) 0.7 % (08/11/16 5:41 AM) Basophils [0.0-1.0 %] 3.3 K/CMM (08/17/16 5:59 AM) 4.6 K/CMM (08/15/16 4:55 AM) 5.0 K/CMM (08/11/16 5:41 AM) Segs-Bands # [1.5-8.1 K/CMM] 1.5 K/CMM (08/17/16 5:59 AM) 1.6 K/CMM (08/15/16 4:55 AM) 1.0 K/CMM (08/11/16 5:41 AM) Lymphocytes # [1.0-5.5 K/CMM] 0.5 K/CMM (08/17/16 5:59 AM) 0.7 K/CMM (08/15/16 4:55 AM) 0.6 K/CMM (08/11/16 5:41 AM) Monocytes # [0.0-0.8 K/CMM] 0.2 K/CMM (08/17/16 5:59 AM) 0.3 K/CMM (08/15/16 4:55 AM) 0.1 K/CMM (08/09/16 6:11 AM) Eosinophils # [0.0-0.5 K/CMM] 0.0 K/CMM (08/15/16 4:55 AM) 0.0 K/CMM (08/09/16 6:11 AM) 0.1 K/CMM (07/27/16 5:28 AM) Basophils # [0.0-0.2 K/CMM] Normal (08/15/16 4:55 AM) Normal (08/09/16 6:11 AM) Normal (07/23/16 5:27 AM) RBC Morph 1+ *ABN* (07/08/16 11:40 AM) Anisocyte [None Seen] Normal (08/15/16 4:55 AM) Normal (08/09/16 6:11 AM) Normal (07/23/16 5:27 AM) Plt Morph 60 mm/hr *HI* (07/22/16 5:50 AM) 52 mm/hr *HI* (07/21/16 11:17 AM) Sed Rate [0-20 mm/hr] 14.8 seconds *HI* (08/17/16 5:59 AM) 17.2 seconds *HI* (08/07/16 11:27 AM) 18.8 seconds *HI* (07/06/16 4:46 AM) PT [12.0-14.7 seconds] 1.14 (08/17/16 5:59 AM) 1.38 *HI* (08/07/16 11:27 AM) 1.54 *HI* (07/06/16 4:46 AM) INR [0.85-1.17] 33.6 seconds (08/07/16 11:27 AM) 31.6 seconds (07/06/16 4:46 AM) PTT [22.9-35.8 seconds] TUMOR MARKERS 1 2 3 Most recent to oldest [Reference Range]: 1.5 ng/mL (08/06/16 4:43 PM) CEA [0.0-3.0 ng/mL] MOLECULAR DIAGNOSTIC 1 2 3 Most recent to oldest [Reference Range]: Negative (07/29/16 4:52 AM) Negative (07/08/16 9:16 PM) C difficile DNA [Negative] Immunizations Not Given [...] No Assessment and Plan Extracted from: Title: Discharge Summary * Author: Shawanda Yuan CLOTH MERCERIZER OPERATOR Date: 08/17/16 Patient: CHIKA MALDONADO Age: 40 years Sex: Female : 1975 Associated Diagnoses: None Author: Shawanda Yuan NP Attending Physician: Amada Dawson Date of admission: 07/05/2016 Date of discharge to [facility]: 08/17/2016 Discharge diagnosis: 1. Acute pancreatitis with [...] results Labs (Last four charted values) WBC 5.5(AUG 17)7.2(AUG 15)7.1(AUG 14)6.7(AUG 11) Hgb L 9.6(AUG 17)L 9.3(AUG 15)L 9.4(AUG 14)L 9.8(AUG 11) Hct L 28.7(AUG 17)L 28.6(AUG 15)L 28.5(AUG 14)L 30.4(AUG 11) Plt 283(AUG 17)261(AUG 15)261(AUG 14)223(AUG 11) Na 136(AUG 17)L 134(AUG 17)135(AUG 16)135(AUG 15) K 3.9(AUG 17)3.9(AUG 17)L 3.2(AUG 16)4.6(AUG 15) CO2 29(AUG 17)24(AUG 17)28(AUG 16)26(AUG 15) Cl 99(AUG 17)97(AUG 17)98(AUG 16)100(AUG 15) Cr L 0.20(AUG 17)L 0.20(AUG 17)L 0.20(AUG 16)L 0.20(AUG 15) BUN 7(AUG 17)8(AUG 17)9(AUG 16)11(AUG 15) Glucose Random 87(AUG 17)90(AUG 17)H 130(AUG 16)71(AUG 15) Mg 1.9(AUG 17)1.8(AUG 16)1.8(AUG 15)1.9(AUG 14) Phos 2.6(AUG 17)3.2(AUG 16)L 1.9(AUG 15)L 1.8(AUG 13) Ca 8.5(AUG 17)9.3(AUG 17)9.2(AUG 16)9.2(AUG 15) PT H 14.8(AUG 17)H 17.2(AUG 07)H 18.8(JUL 06) INR 1.14(AUG 17)H 1.38(AUG 07)H 1.54(JUL 06) PTT 33.6(AUG 07)31.6(JUL 06) Physical Examination VS/Measurements Vital Signs (last 24 hrs) Last Charted Temp OralH 99.4DegF (AUG 17 13:00) Heart Rate PeripheralH 111bpm (AUG 17 13:00) Resp Rate 18 BRMIN (AUG 17:) [id number] mmHg (AUG 17:) DBP76 mmHg (AUG 17:) General: Alert and oriented, [...] No focal deficits. Psychiatric: Cooperative, Appropriate mood & affect Hospital Course This is a 40-year-old female with past medical history of hypertension, diabetes mellitus, who was initially admitted at [facility] for thyroid storm as well [...] addressed completely. Patient was transferred back to [facility] as she is clinically not improving as the pelvic fluid collections around the pelvic mass recurs even draining after multiple times and will require a gynecology and oncology evaluation. Addendum PT SEEN and examined, agree with above recommendations. transfer to [facility] , team by accepted patient there for acute level of care Amada López MD on 08/18/2016 13:44 Extracted from: Title: Progress Note Author: En Birto MD Date: 08/17/16 Impression and Plan 40 [...] agree with the plan of care. Extracted from: Title: Supportive Medicine Consult Author: Chika Colvin MD Date: 08/15/16 H&P * Impression and Plan see above Extracted from: Title: IR paracentesis Author: Phani Tinajero MD Date: [...] ROS negative except as stated in HPI. VitalsTmp(F)[id number] 07/19 08:[id number] 2.0L/m 07/19 08:50----[id number]/[id number] 2.0L/m 07/19 08:0098.7028436/7618------ 07/19 04:0098.4272697/7720------ 07/19 00:0098.9598456/8120------ 24 Hr Tmax: 99.8F (37.67c) at 07/19 08:55Vital Signs are the last 5 in the [...]
--- OUTSIDE RECORDS SUMMARY | 2019-02-11 16:47 | XMS REPORT | Summary of Care ---
Author Author CHRISTEN WHITFIELD N.P. Organization Unknown Address Unknown Phone Unavailable Care Team Providers Care Back Up Machine Operator Name Role Phone CHRISTEN WHITFIELD N.P. Unavailable Unavailable WILLIAM ZAMORA NCLUIS DANIEL Unavailable Unavailable Unavailable Unavailable Functional Status Name Dates Details Functional status health issues are not documented Status: Name Dates Details Cognitive status health issues are not documented Status: Problems Name Dates Details Elevated lipase (790.5, R74.8) Status: Active Elevated amylase and lipase (790.5, R74.8) Status: Active Pancreatitis (577.0, K85.90) Status: Active Cervical cancer screening (V76.2, Z12.4) Status: Active Diabetes mellitus (250.00, E11.9) Status: Active Hypomagnesemia (275.2, E83.42) Status: Active Menses painful (625.3, N94.6) Status: Active Fibroid uterus (218.9, D25.9) Status: Active Frequent UTI (599.0, N39.0) Status: Active Anemia, unspecified type (285.9, D64.9) Status: Active Anemia (285.9, D64.9) Status: Active Abdominal pain (789.00, R10.9) Status: Active Medications Name Dates Details NovoLOG FlexPen 100 UNIT/ML Subcutaneous Solution Pen-injector USE DIRECTED. * Start : 27-Aug-2018 Active 5 x 3 ML Pen Levemir FlexTouch 100 UNIT/ML Subcutaneous Solution Pen-injector USE DIRECTED. * Refills: 0 * Start : 27-Aug-2018 Active 5 x 3 ML Pen Tylenol Extra Strength 500 MG Oral Tablet TAKE 1 TABLET EVERY 4 TO 6 HOURS NEEDED. * Refills: 0 * Start : 27-Aug-2018 Active Magnesium Oxide 400 MG Oral Tablet TAKE 1 TABLET DAILY. * Quantity: 30 Refills: 0 CHRISTEN WHITFIELD N.P. * Start : 28-Aug-2018 Active traMADol HCl - 50 MG Oral Tablet TAKE 1 TABLET Every 6 hours PRN abdominal pain * Quantity: 60 Refills: 0 ROSEANN N.P., CHRISTEN * Start : 25-Sep-2018 Active Allergies and Adverse Reactions Name Dates Details Ancef SOLR (Allergy) Status: Active Ciprofloxacin HCl TABS (Allergy) Status: Active Past Medical History Name Dates Details History of Choledocholithiasis (574.50, K80.50) Status: Resolved History of hypertension (V12.59, Z86.79) Status: Resolved History of pyelonephritis (V13.02, Z87.448) Status: Resolved History of thyrotoxicosis (V12.29, Z86.39) Status: Resolved Procedures Procedure Dates Details History of Tubal Ligation Completed History of Drug-eluting stent placement Completed History of Cath Stent Placement Completed History of Endoscopic retrograde cholangiopancreatography Completed Immunization Name Dates Details Immunizations not documented Social History Name Dates Details Unknown if ever smoked Vital Signs Date Test Result Details No Known Vitals to report Results Date Description Value Details Results not documented Plan of Care Name Dates Details Planned Observations Planned Goals not documented Interventions Provided Medication Changes* traMADol HCl - 50 MG Oral Tablet - Start Discussion/Summary* Ms. Bojorquez 42 year old [facility] female with extensive PMH who presents for management of large fibroid uterus, heavy and painful menses, and complications of ovary pressing on left ureter and causing frequent UTIs. Presents to clinic to discuss pre-clearance follow-up and discuss surgical plan. * 1. Fibroid uterus: * Last CT imaging of abdomen/pelvis was obtained in 2016 and demonstrated a 9cm uterus with several large fibroids. previou exam it is evident that the uterus is much larger, now 20 weeks size. * Reviewed CT 09/04/18 revealing Enlarged fibroid uterus 13 x12 cm previously measured 8 x8 cm. , Bilateral moderate hydronephrosis and hydroureter, Left ureteral stent seen. * -Patient is a high surgical risk candidate and all measures should be taken to ensure that she is optimally cleared for surgery. Therefore, we have requested for her to obtain clearance from her PCP (diabetes), urologist (left ureteral stent management/frequent UTIs) , and template reproduction technician (history of pancreatitis) before we will activities counselor her to undergo surgery. * -Obtain full set of labs today: CBC w/differential count, CMP, Mag, CA-125, hemoglobin A1C * -Advised patient that blood glucose should remain under 200 at all times for proper wound healing. * - Discussed all risk, benefits, and adverse effects regarding surgery EL CARI BSO and other indicated procedures. Ms. Bojorquez verbalized understanding and signed consent. All questions and concerns were addressed. Provided handouts for [facility] Protocol and additional instructions. Awaiting Medical Clearance before scheduling surgery at this time. * 2. Abdominal pain: * 7-03/07 sharp abdominal pain, patient currently only taking Tylenol 2 tablet twice a day without relief of pain. Will consider Tramadol 50 mg PO for pain. * RTC once we receive pre-clearance from PCP, GI, and Urology teams listed above. * Discussed above with patient and family (spent 45 minutes face to face) Patient seen by and examined by ARABELLA Hernandes. Elen Diaz PA-C served as a scribe. Questions answered. Instructions Name Dates Details Instructions not documented Encounters Appointment; LUIS DANIEL THOMAS M.D. Encounter Diagnosis: Problem not documented On: 27-Aug-2018 14:00 Appointment; MAILER APPRENTICE-ONCOLOGY, PROVIDER Encounter Diagnosis: Problem not documented On: 24-Sep-2018 13:40
--- OUTSIDE RECORDS SUMMARY | 2019-02-11 16:47 | XMS REPORT | Summary of Care ---
Author Author [facility] Organization [facility] Address Unknown Phone Unavailable Encounter [facility] [place](JOSEPH) [id number] Date(s): 09/10/16 - 09/21/16 [facility] [address] [place] [address]- [phone] Discharge Disposition: Home or Self Care Attending Physician: Tim Edmonds DO Admitting Physician: Tim Edmonds DO Vital Signs 1 2 3 Most recent to oldest [Reference Range]: 157.48 cm (09/10/16 7:27 PM) 157.48 cm (09/10/16 5:15 PM) Height 54.29 kg (09/21/16 4:27 AM) 59.727 kg (09/19/16 4:41 AM) 55.5 kg (09/18/16 5:54 AM) Current Weight 98.7 DegF (09/21/16 9:13 PM) 98.7 DegF (09/21/16 4:00 PM) 98.5 DegF (09/21/16 11:59 AM) Temperature Oral [96.4-99.1 DegF] 107/71 mmHg (09/21/16 9:13 PM) 121/81 mmHg (09/21/16 4:00 PM) 115/71 mmHg (09/21/16 11:59 AM) Blood Pressure [90-140/60-90 mmHg] 18 BRMIN (09/21/16 9:13 PM) 17 BRMIN (09/21/16 4:00 PM) 19 BRMIN (09/21/16 11:59 AM) Respiratory Rate [14-20 BRMIN] 84 bpm (09/21/16 9:13 PM) 89 bpm (09/21/16 4:00 PM) 81 bpm (09/21/16 11:59 AM) Peripheral Pulse Rate [60-100 bpm] 41.818 kg (09/16/16 6:12 AM) 41.364 kg (09/10/16 5:15 PM) Weight 16.68 m2 (09/10/16 5:15 PM) Body Mass Index Problem List Condition [...] Active 1tolerated [place] [facility] [place] doses as per MD and as documented in e-MAR Medications acetaminophen-hydrocodone 325 mg-7.5 mg/15 mL oral solution 10 mL, Route: PO, Drug Form: SOLN, Dosing Weight 50, kg, Q6H, PRN Pain Score 4-6 , Start date: 09/10/16 16:45:00 BACKUP ADMINISTRATIVE COORDINATOR, Duration: 30 day, Stop date: 10/10/16 16:44 :00 CDT Notes: Do not exceed 4gm/day of acetaminophen. (Same as: [place] 325/7.5) Start Date: 09/10/16 Stop Date: 09/22/16 Status: Discontinued alteplase 2 mg injection 5 mg + empty container 1 ea + sodium chloride 0.9% INJ 40 mL Route: [facility], Drug form: INJ, ONCE, Dosing Weight 41.364, kg, mix 5 mg tPa in 40 mL normal saline and instill in lower abdominal drainage catheter. clamp tube fo r 1 hour, then open to bag drainage., Priority: STAT, Start date: 09/14/16 17:07 :00 BACKUP ADMINISTRATIVE COORDINATOR, St... Notes: "Syringe for catheter clearance or interventional radiology use.[facility] each vial of Cathflo Activase with 2.2 ml Sterile Water resulting in a 1 mg/ ml solution. Stable for 8 hours only. (Same as: Activase) MEDICATION WASTE * Product Size: 2 mgProduct Wasted: ___ mg Start Date: 09/14/16 Stop Date: 09/14/16 Status: Completed ANES diphenhydrAMINE 12.5 mg, Route: IVP, Drug form: INJ, Q6H, Dosing Weight 41.364, kg, PRN Itching, Start date: 09/12/16 10:40:00 BACKUP ADMINISTRATIVE COORDINATOR, Duration: 30 day, Stop date: 10/12/16 10:39: 00 CDT Start Date: 09/12/16 Stop Date: 09/12/16 Status: Discontinued ANES fentaNYL 50 microgram, Route: IVP, Q5Min, Dosing Weight 41.364, kg, PRN Pain Score 7-10, Priority: Routine, Start date: 09/12/16 10:40:00 BACKUP ADMINISTRATIVE COORDINATOR, Duration: 2 doses or times , Stop date: Limited # of times Start Date: 09/12/16 Stop Date: 09/12/16 Status: Discontinued ANES fentaNYL 25 microgram, Route: IVP, Q5Min, Dosing Weight 41.364, kg, PRN Pain Score 4-6, P riority: Routine, Start date: 09/12/16 10:40:00 BACKUP ADMINISTRATIVE COORDINATOR, Duration: 4 doses or times, Stop date: Limited # of times Start Date: 09/12/16 Stop Date: 09/12/16 Status: Discontinued ANES flumazenil 0.2 mg, Route: IVP, PRN, Dosing Weight 41.364, kg, PRN Benzodiazepine Reversal, Initial dose, Start date: 09/12/16 10:40:00 BACKUP ADMINISTRATIVE COORDINATOR, Duration: 30 day, Stop date: 11:39:00 CDT Start Date: 09/12/16 Stop Date: 09/12/16 Status: Discontinued ANES HYDROmorphone 0.5 mg, Route: IVP, Q5Min, Dosing Weight 41.364, kg, PRN Pain Score 7-10, Start date: 09/12/16 10:40:00 BACKUP ADMINISTRATIVE COORDINATOR, Duration: 4 doses or times, Stop date: Limited # of times Start Date: 09/12/16 Stop Date: 09/12/16 Status: Discontinued ANES meperidine 12.5 mg, Route: IVP, Q30Min, Dosing Weight 41.364, kg, PRN Other -See Comment, F or shivering, Start date: 09/12/16 10:40:00 BACKUP ADMINISTRATIVE COORDINATOR, Duration: 2 doses or times, Sto p date: Limited # of times Start Date: 09/12/16 Stop Date: 09/12/16 Status: Discontinued ANES morphine Sulfate 4 mg, Route: IVP, Q5Min, Dosing Weight 41.364, kg, PRN Pain Score 7-10, Start da te: 09/12/16 10:40:00 BACKUP ADMINISTRATIVE COORDINATOR, Duration: 3 doses or times, Stop date: Limited # of t imes Start Date: 09/12/16 Stop Date: 09/12/16 Status: Discontinued ANES morphine Sulfate 2 mg, Route: IVP, Q5Min, Dosing Weight 41.364, kg, PRN Pain Score 4-6, Start chely e: 09/12/16 10:40:00 BACKUP ADMINISTRATIVE COORDINATOR, Duration: 5 doses or times, Stop date: Limited # of ti mes Start Date: 09/12/16 Stop Date: 09/12/16 Status: Discontinued ANES naloxone 0.4 mg, Route: IVP, Q2MIN, Dosing Weight 41.364, kg, PRN Narcotic Reversal, Star t date: 09/12/16 10:40:00 BACKUP ADMINISTRATIVE COORDINATOR, Duration: 8 doses or times, Stop date: Limited # of times Start Date: 09/12/16 Stop Date: 09/12/16 Status: Discontinued ANES ondansetron 4 mg, Route: IVP, ONCE, Dosing Weight 41.364, kg, PRN Nausea & Vomiting, Start date: 09/12/16 10:40:00 BACKUP ADMINISTRATIVE COORDINATOR Start Date: 09/12/16 Stop Date: 09/12/16 Status: Discontinued ANES oxyCODONE 5 mg, Route: PO, Drug form: TAB, Q4H, Dosing Weight 41.364, kg, PRN Pain Score 4 -6, Start date: 09/12/16 10:40:00 BACKUP ADMINISTRATIVE COORDINATOR, Duration: 30 day, Stop date: 10/12/16 10: 39:00 CDT Start Date: 09/12/16 Stop Date: 09/12/16 Status: Discontinued ANES oxyCODONE 10 mg, Route: PO, Drug form: TAB, Q4H, Dosing Weight 41.364, kg, PRN Pain Score 7-10, Start date: 09/12/16 10:40:00 BACKUP ADMINISTRATIVE COORDINATOR, Duration: 30 day, Stop date: 10/12/16 1 0:39:00 CDT Start Date: 09/12/16 Stop Date: 09/12/16 Status: Discontinued ANES promethazine 6.25 mg, Route: IVPB, ONCE, Dosing Weight 41.364, kg, PRN Nausea & Vomiting, Start date: 09/12/16 10:40:00 BACKUP ADMINISTRATIVE COORDINATOR Start Date: 09/12/16 Stop Date: 09/12/16 Status: Discontinued ANES scopolamine 1.5 mg transdermal film 1 patch, Route: TOP, Drug Form: ERFILM, Dosing Weight 41.364, kg, ONCE, Apply be hind ear. Avoid use in elderly., Start date: 09/12/16 10:40:00 BACKUP ADMINISTRATIVE COORDINATOR, Stop date: 09/12/16 10:40:00 BACKUP ADMINISTRATIVE COORDINATOR Start Date: 09/12/16 Stop Date: 09/12/16 Status: Completed Blood Glucose Monitor 1 ea, MISC, Daily, Use as directed., # 1 ea, 0 Refill(s) Start Date: 09/21/16 Status: Ordered Blood Glucose Test Strips 1 box, TOP, Before Breakfast, # 100 strip, 0 Refill(s) Start Date: 09/21/16 Status: Ordered Cathflo Activase 2 mg injection 2 mg, 2 mL, Route: INJ, Drug form: INJ, ONCE, Dosing Weight 41.364, kg, Start da te: 09/15/16 16:58:00 BACKUP ADMINISTRATIVE COORDINATOR, Stop date: 09/15/16 16:58:00 BACKUP ADMINISTRATIVE COORDINATOR Notes: "Syringe for catheter clearance or interventional radiology use.[facility] each vial of Cathflo Activase with 2.2 ml Sterile Water resulting in a 1 mg/ ml solution. Stable for 8 hours only. (Same as: Activase) MEDICATION WASTE * Product Size: 2 mgProduct Wasted: ___ mg Start Date: 09/15/16 Stop Date: 09/15/16 Status: Completed ceFAZolin (ANES) Route: IV, Drug form: INJ, ONCE, Stop date: 09/13/16 12:49:00 BACKUP ADMINISTRATIVE COORDINATOR Start Date: 09/13/16 Stop Date: 09/13/16 Status: Completed cefepime + sodium chloride 0.9% INJ 100 mL 2 gm, Route: IV, Drug form: INJ, ONCE, Dosing Weight 41.364, kg, Start date: 10:55:00 BACKUP ADMINISTRATIVE COORDINATOR, Stop date: 09/12/16 10:55:00 BACKUP ADMINISTRATIVE COORDINATOR Notes: (Same as: Maxipime) MEDICATION WASTE Product Size: 2000 mgProduc t Wasted: ___ mgtolerated Ce[place]pime [place] [facility] [place] as per MD and as documented in e-MAR Start Date: 09/12/16 Stop Date: 09/12/16 Status: Completed Creon 24,000 units oral delayed release capsule 1 cap, PO, TID-Before Meals, # 90 cap, 0 Refill(s), [facility] [id number] Start Date: 09/21/16 Status: Ordered Creon 24,000 units oral delayed release capsule 1 cap, Route: PO, Drug Form: DRC, Dosing Weight 41.818, kg, TID-Before Meals, St art date: 09/21/16 7:30:00 BACKUP ADMINISTRATIVE COORDINATOR, Duration: 30 day, Stop date: 10/20/16 16:30:00 C DT Notes: Same as: Creon [facility] 24 : lipase 24,000 units, protease 76,000 units, amyla se 120,000 units Start Date: 09/21/16 Stop Date: 09/22/16 Status: Discontinued D5W 1,000 mL 1,000 mL, Rate: 50 ml/hr, Infuse over: 20 hr, Route: IV, Dosing Weight 41.818 kg , Total Volume: 1,000, Start date: 09/19/16 6:38:00 BACKUP ADMINISTRATIVE COORDINATOR, Duration: 12 hr, Stop d ate: 09/19/16 18:37:00 BACKUP ADMINISTRATIVE COORDINATOR Start Date: 09/19/16 Stop Date: 09/19/16 Status: Completed D5W 1/2NS 1,000 mL 1,000 mL, Rate: 125 ml/hr, Infuse over: 8 hr, Route: IV, Dosing Weight 41.364 kg , Total Volume: 1,000, Start date: 09/12/16 0:00:00 BACKUP ADMINISTRATIVE COORDINATOR, Stop date: 10/11/16 23: 59:00 CDT Start Date: 09/12/16 Stop Date: 09/19/16 Status: Discontinued dexamethasone (ANES) Route: IV, Drug form: INJ, ONCE, Stop date: 09/13/16 12:49:00 BACKUP ADMINISTRATIVE COORDINATOR Start Date: 09/13/16 Stop Date: 09/13/16 Status: Completed Dextrose 5% with 0.45% NaCl IV 1000 mL 1,000 mL, Rate: 75 ml/hr, Infuse over: 13.3 hr, Route: IV, Dosing Weight 41.364 kg, Total Volume: 1,000, Start date: 09/11/16 16:41:00 BACKUP ADMINISTRATIVE COORDINATOR, Duration: 30 day, St op date: 10/11/16 16:40:00 CDT Start Date: 09/11/16 Stop Date: 09/11/16 Status: Deleted Dextrose 50% Syringe 25 gm, 50 mL, Route: IVP, Drug Form: INJ, Dosing Weight 50, kg, PRN, PRN Blood G lucose Results, Start date: 09/10/16 16:44:00 BACKUP ADMINISTRATIVE COORDINATOR, Duration: 30 day, Stop date: 10/10/16 17:43:00 CDT Start Date: 09/10/16 Stop Date: 09/18/16 Status: Discontinued Dextrose 50% Syringe 12.5 gm, 25 mL, Route: IVP, Drug Form: INJ, Dosing Weight 50, kg, PRN, PRN Blood Glucose Results, Start date: 09/10/16 16:44:00 BACKUP ADMINISTRATIVE COORDINATOR, Duration: 30 day, Stop date: 10/10/16 17:43:00 CDT Start Date: 09/10/16 Stop Date: 09/18/16 Status: Discontinued Dextrose 50% Syringe 25 gm, 50 mL, Route: IVP, Drug Form: INJ, Dosing Weight 41.818, kg, PRN, PRN Blo od Glucose Results, Start date: 09/18/16 18:06:00 BACKUP ADMINISTRATIVE COORDINATOR, Duration: 30 day, Stop da te: 10/18/16 19:05:00 CDT Start Date: 09/18/16 Stop Date: 09/22/16 Status: Discontinued Dextrose 50% Syringe 12.5 gm, 25 mL, Route: IVP, Drug Form: INJ, Dosing Weight 41.818, kg, PRN, PRN B lood Glucose Results, Start date: 09/18/16 18:06:00 BACKUP ADMINISTRATIVE COORDINATOR, Duration: 30 day, Stop date: 10/18/16 19:05:00 CDT Start Date: 09/18/16 Stop Date: 09/22/16 Status: Discontinued Dilaudid 0.5 mg, 0.5 mL, Route: IV, Drug form: INJ, Q4H, Dosing Weight 41.364, kg, PRN Pa in Score 6-10, Start date: 09/12/16 13:52:00 BACKUP ADMINISTRATIVE COORDINATOR, Duration: 30 day, Stop date: 0 10/12/16 13:51:00 CDT Start Date: 09/12/16 Stop Date: 09/22/16 Status: Discontinued Dilaudid 0.5 mg, 0.5 mL, Route: IV, Drug form: INJ, Q6H, Dosing Weight 41.364, kg, PRN Pa in Score 6-10, Start date: 09/10/16 18:41:00 BACKUP ADMINISTRATIVE COORDINATOR, Duration: 30 day, Stop date: 0 10/10/16 18:40:00 CDT Start Date: 09/10/16 Stop Date: 09/12/16 Status: Discontinued enoxaparin 40 mg, 0.4 mL, Route: SUB-Q, Drug form: INJ, Daily, Dosing Weight 50, kg, Start date: 09/10/16 21:00:00 BACKUP ADMINISTRATIVE COORDINATOR, Duration: 30 day, Stop date: 10/09/16 21:00:00 CDT Notes: (Same as: Lovenox) Start Date: 09/10/16 Stop Date: 09/22/16 Status: Discontinued famotidine (ANES) Route: IV, Drug form: INJ, ONCE, Stop date: 09/13/16 12:46:00 BACKUP ADMINISTRATIVE COORDINATOR Start Date: 09/13/16 Stop Date: 09/13/16 Status: Completed fentaNYL (ANES) Route: IV, Drug form: INJ, ONCE, Stop date: 09/13/16 12:41:00 BACKUP ADMINISTRATIVE COORDINATOR Start Date: 09/13/16 Stop Date: 09/13/16 Status: Completed glucagon 1 mg, Route: IM, Drug form: PDR/INJ, PRN, Dosing Weight 50, kg, PRN Blood Glucos e Results, Start date: 09/10/16 16:44:00 BACKUP ADMINISTRATIVE COORDINATOR, Duration: 30 day, Stop date: 10/10 17:43:00 CDT Start Date: 09/10/16 Stop Date: 09/18/16 Status: Discontinued glucagon 1 mg, Route: IM, Drug form: PDR/INJ, PRN, Dosing Weight 41.818, kg, PRN Blood Gl ucose Results, Start date: 09/18/16 18:06:00 BACKUP ADMINISTRATIVE COORDINATOR, Duration: 30 day, Stop date: 0 10/18/16 19:05:00 CDT Start Date: 09/18/16 Stop Date: 09/22/16 Status: Discontinued insulin aspart 10 unit, 0.1 mL, Route: SUB-Q, Drug form: SOLN, Sliding Scale, Dosing Weight 50, kg, PRN Blood Glucose Results, Start date: 09/10/16 16:44:00 BACKUP ADMINISTRATIVE COORDINATOR, Duration: 30 day, Stop date: 10/10/16 17:43:00 CDT Notes: Roll in palms of hands gently; Do not shake vigorously. (Same as: Mica Soto)"single patient use only"WASTE: F/P - Black; E - Municipal Trash Bin Stable f or 28 days at room temperature.Expires in days from Date Start Date: 09/10/16 Stop Date: 09/18/16 Status: Discontinued insulin aspart 8 unit, 0.08 mL, Route: SUB-Q, Drug form: SOLN, Sliding Scale, Dosing Weight 50, kg, PRN Blood Glucose Results, Start date: 09/10/16 16:44:00 BACKUP ADMINISTRATIVE COORDINATOR, Duration: 30 day, Stop date: 10/10/16 17:43:00 CDT Notes: Roll in palms of hands gently; Do not shake vigorously. (Same as: Mica Soto)"single patient use only"WASTE: F/P - Black; E - Municipal Trash Bin Stable f or 28 days at room temperature.Expires in days from Date Start Date: 09/10/16 Stop Date: 09/18/16 Status: Discontinued insulin aspart 4 unit, 0.04 mL, Route: SUB-Q, Drug form: SOLN, Sliding Scale, Dosing Weight 50, kg, PRN Blood Glucose Results, Start date: 09/10/16 16:44:00 BACKUP ADMINISTRATIVE COORDINATOR, Duration: 30 day, Stop date: 10/10/16 17:43:00 CDT Notes: Roll in palms of hands gently; Do not shake vigorously. (Same as: NovoJACQUELIN Soto)"single patient use only"WASTE: F/P - Black; E - Municipal Trash Bin Stable f or 28 days at room temperature.Expires in days from Date Start Date: 09/10/16 Stop Date: 09/18/16 Status: Discontinued insulin aspart 2 unit, 0.02 mL, Route: SUB-Q, Drug form: SOLN, Sliding Scale, Dosing Weight 50, kg, PRN Blood Glucose Results, Start date: 09/10/16 16:44:00 BACKUP ADMINISTRATIVE COORDINATOR, Duration: 30 day, Stop date: 10/10/16 17:43:00 CDT Notes: Roll in palms of hands gently; Do not shake vigorously. (Same as: Mica Soto)"single patient use only"WASTE: F/P - Black; E - Municipal Trash Bin Stable f or 28 days at room temperature.Expires in days from Date Start Date: 09/10/16 Stop Date: 09/18/16 Status: Discontinued insulin aspart 6 unit, 0.06 mL, Route: SUB-Q, Drug form: SOLN, Sliding Scale, Dosing Weight 50, kg, PRN Blood Glucose Results, Start date: 09/10/16 16:44:00 BACKUP ADMINISTRATIVE COORDINATOR, Duration: 30 day, Stop date: 10/10/16 17:43:00 CDT Notes: Roll in palms of hands gently; Do not shake vigorously. (Same as: Mica Soto)"single patient use only"WASTE: F/P - Black; E - Municipal Trash Bin Stable f or 28 days at room temperature.Expires in days from Date Start Date: 09/10/16 Stop Date: 09/18/16 Status: Discontinued insulin aspart 1 unit, 0.01 mL, Route: SUB-Q, Drug form: SOLN, TID-Before Meals, Dosing Weight 41.818, kg, PRN Blood Glucose Results, Start date: 09/18/16 18:06:00 BACKUP ADMINISTRATIVE COORDINATOR, Durati on: 30 day, Stop date: 10/18/16 18:05:00 CDT Notes: Roll in palms of hands gently; Do not shake vigorously. (Same as: Mica Soto)"single patient use only"WASTE: F/P - Black; E - Municipal Trash Bin Stable f or 28 days at room temperature.Expires in days from Date Start Date: 09/18/16 Stop Date: 09/22/16 Status: Discontinued insulin aspart 5 unit, 0.05 mL, Route: SUB-Q, Drug form: SOLN, TID-Before Meals, Dosing Weight 41.818, kg, PRN Blood Glucose Results, Start date: 09/18/16 18:06:00 BACKUP ADMINISTRATIVE COORDINATOR, Durati on: 30 day, Stop date: 10/18/16 18:05:00 CDT Notes: Roll in palms of hands gently; Do not shake vigorously. (Same as: Mica Soto)"single patient use only"WASTE: F/P - Black; E - Municipal Trash Bin Stable f or 28 days at room temperature.Expires in days from Date Start Date: 09/18/16 Stop Date: 09/22/16 Status: Discontinued insulin aspart 4 unit, 0.04 mL, Route: SUB-Q, Drug form: SOLN, TID-Before Meals, Dosing Weight 41.818, kg, PRN Blood Glucose Results, Start date: 09/18/16 18:06:00 BACKUP ADMINISTRATIVE COORDINATOR, Durati on: 30 day, Stop date: 10/18/16 18:05:00 CDT Notes: Roll in palms of hands gently; Do not shake vigorously. (Same as: Mica Soto)"single patient use only"WASTE: F/P - Black; E - Municipal Trash Bin Stable f or 28 days at room temperature.Expires in days from Date Start Date: 09/18/16 Stop Date: 09/22/16 Status: Discontinued insulin aspart 3 unit, 0.03 mL, Route: SUB-Q, Drug form: SOLN, TID-Before Meals, Dosing Weight 41.818, kg, PRN Blood Glucose Results, Start date: 09/18/16 18:06:00 BACKUP ADMINISTRATIVE COORDINATOR, Durati on: 30 day, Stop date: 10/18/16 18:05:00 CDT Notes: Roll in palms of hands gently; Do not shake vigorously. (Same as: NovoLO G)"single patient use only"WASTE: F/P - Black; E - Municipal Trash Bin Stable f or 28 days at room temperature.Expires in days from Date Start Date: 09/18/16 Stop Date: 09/22/16 Status: Discontinued insulin aspart 2 unit, 0.02 mL, Route: SUB-Q, Drug form: SOLN, TID-Before Meals, Dosing Weight 41.818, kg, PRN Blood Glucose Results, Start date: 09/18/16 18:06:00 BACKUP ADMINISTRATIVE COORDINATOR, Durati on: 30 day, Stop date: 10/18/16 18:05:00 CDT Notes: Roll in palms of hands gently; Do not shake vigorously. (Same as: NovoLO G)"single patient use only"WASTE: F/P - Black; E - Municipal Trash Bin Stable f or 28 days at room temperature.Expires in days from Date Start Date: 09/18/16 Stop Date: 09/22/16 Status: Discontinued insulin isophane 5 unit, 0.05 mL, Route: SUB-Q, Drug form: INJ, Q12H, Dosing Weight 50, kg, Start date: 09/10/16 21:00:00 BACKUP ADMINISTRATIVE COORDINATOR, Duration: 30 day, Stop date: 10/10/16 12:00:00 CDT Notes: Roll in palms of hands gently; Do not shake vigorously. (Same as: NovoLI N N, Humulin N)Do not hold insulin without contacting prescriber"single patient use only"WASTE: F/P - Black; E - Municipal Trash Bin Stable for 14 days at room temperatureExpires in days from Date Start Date: 09/10/16 Stop Date: 09/19/16 Status: Discontinued insulin isophane (NPH) 100 units/mL human recombinant subcutaneous suspension 5 unit, SUB-Q, Daily, # 10 mL, 0 Refill(s), Pharmacy: [facility] [id number] Start Date: 09/21/16 Status: Ordered Insulin Syringes (U 100) 1 syr, SUB-Q, ONCALL, # 100 syr, 0 Refill(s) Start Date: 09/21/16 Status: Ordered Lactated Ringers 1,000 mL 1,000 mL, Rate: 125 ml/hr, Infuse over: 8 hr, Route: IV, Dosing Weight 41.364 kg , Total Volume: 1,000, Start date: 09/12/16 10:40:00 BACKUP ADMINISTRATIVE COORDINATOR, Duration: 30 day, Stop date: 10/12/16 10:39:00 CDT Start Date: 09/12/16 Stop Date: 09/12/16 Status: Discontinued Lactated Ringers Injection IV 1000 mL 1,000 mL, Rate: 40 ml/hr, Infuse over: 25 hr, Route: IV, Dosing Weight 41.364 kg , Total Volume: 1,000, Start date: 09/13/16 10:54:00 BACKUP ADMINISTRATIVE COORDINATOR, Duration: 1 doses or t imes, Stop date: 09/14/16 11:53:00 BACKUP ADMINISTRATIVE COORDINATOR Start Date: 09/13/16 Stop Date: 09/13/16 Status: Completed Lancet Device 1 box, MISC, Daily, # 1 ea, 0 Refill(s) Start Date: 09/21/16 Status: Ordered Lancets 1 box, MISC, Daily, # 1 box, 0 Refill(s) Start Date: 09/21/16 Status: Ordered lidocaine (ANES) Route: IV, Drug form: INJ, ONCE, Stop date: 09/13/16 12:41:00 BACKUP ADMINISTRATIVE COORDINATOR Start Date: 09/13/16 Stop Date: 09/13/16 Status: Completed LR 1000 mL INJ (ANES) Route: IV, Total Volume: 1,000, Start date: 09/13/16 11:51:00 BACKUP ADMINISTRATIVE COORDINATOR, Stop date: 12:51:00 BACKUP ADMINISTRATIVE COORDINATOR Start Date: 09/13/16 Stop Date: 09/13/16 Status: Completed magnesium sulfate 2 gm, 50 mL, Route: IVPB, Drug form: INJ, ONCE, Dosing Weight 41.364, kg, Total dose=2 gm, Start date: 09/15/16 12:18:00 BACKUP ADMINISTRATIVE COORDINATOR, Duration: 1 doses or times, Stop d ate: 09/15/16 12:18:00 BACKUP ADMINISTRATIVE COORDINATOR Notes: WASTE: F/P - Sink; E - Municipal Trash Bin Start Date: 09/15/16 Stop Date: 09/15/16 Status: Completed methimazole 10 mg, 2 tab, Route: PO, Drug form: TAB, Q8H, Dosing Weight 50, kg, Start date: 09/11/16 0:00:00 BACKUP ADMINISTRATIVE COORDINATOR, Stop date: 10/10/16 16:00:00 CDT Start Date: 09/11/16 Stop Date: 09/22/16 Status: Discontinued methimazole 10 mg oral tablet 10 mg, PO, Q8H, # 90 tab, 0 Refill(s), Pharmacy: [facility] Start Date: 09/21/16 Status: Ordered midazolam (ANES) Route: IV, Drug form: SOLN, ONCE, Stop date: 09/13/16 12:41:00 BACKUP ADMINISTRATIVE COORDINATOR Start Date: 09/13/16 Stop Date: 09/13/16 Status: Completed morphine Sulfate 2 mg, 1 mL, Route: IVP, Drug form: INJ, Q4H, Dosing Weight 50, kg, PRN Pain Scor e 6-10, Start date: 09/10/16 16:46:00 BACKUP ADMINISTRATIVE COORDINATOR, Duration: 30 day, Stop date: 10/10/16 16:45:00 CDT Notes: (Same as:MORPhine Sulfate) Start Date: 09/10/16 Stop Date: 09/22/16 Status: Discontinued [place] for Injection Syringe Misc/Other 1 ea, MISC, Q30D, # 6 ea, 1 Refill(s) Start Date: 09/21/16 Status: Ordered ondansetron 4 mg, 2 mL, Route: IVP, Drug form: INJ, Q6H, Dosing Weight 50, kg, PRN Nausea & Vomiting, Start date: 09/10/16 16:40:00 BACKUP ADMINISTRATIVE COORDINATOR, Duration: 30 day, Stop date: 10/10 16:39:00 CDT Notes: (Same as: Sotero) MEDICATION WASTE Product Size: 4 mgProduct Was nakul: ___ mg Start Date: 09/10/16 Stop Date: 09/22/16 Status: Discontinued ondansetron (ANES) Route: IV, Drug form: INJ, ONCE, Stop date: 09/13/16 12:46:00 BACKUP ADMINISTRATIVE COORDINATOR Start Date: 09/13/16 Stop Date: 09/13/16 Status: Completed pantoprazole 40 mg, 1 tab, Route: PO, Drug form: ECTAB, Before Dinner, Dosing Weight 50, kg, Start date: 09/11/16 16:30:00 BACKUP ADMINISTRATIVE COORDINATOR, Stop date: 10/10/16 16:30:00 CDT Notes: Tablet should not be chewed or crushed.(Same as: Protonix) Start Date: 09/11/16 Stop Date: 09/22/16 Status: Discontinued potassium chloride 40 mEq, 2 tab, Route: PO, Drug form: ERTAB, ONCE, Dosing Weight 41.818, kg, Star t date: 09/18/16 13:45:00 BACKUP ADMINISTRATIVE COORDINATOR, Stop date: 09/18/16 13:45:00 BACKUP ADMINISTRATIVE COORDINATOR Notes: (Same as: K-Dur 20)"Do Not Crush" With food and full glass of water Start Date: 09/18/16 Stop Date: 09/18/16 Status: Completed potassium chloride 40 mEq, Route: IV, ONCE, Dosing Weight 41.364, kg, Start date: 09/15/16 7:03:00 BACKUP ADMINISTRATIVE COORDINATOR, Stop date: 09/15/16 7:03:00 BACKUP ADMINISTRATIVE COORDINATOR Start Date: 09/15/16 Stop Date: 09/15/16 Status: Deleted potassium chloride 20 mEq, 100 mL, Route: IVPB, Drug form: INJ, Q2H, Start date: 09/15/16 8:00:[address], Duration: 2 doses or times, Stop date: 09/15/16 10:00:00 BACKUP ADMINISTRATIVE COORDINATOR Notes: (Same as: KCL) Infuse no faster than 10 mEq/hr if given peripherally. Start Date: 09/15/16 Stop Date: 09/15/16 Status: Completed potassium chloride 20 mEq, 100 mL, Route: IVPB, Drug form: INJ, Q2H, Dosing Weight 41.364, kg, Tota l dose=40 mEq, Start date: 09/12/16 8:00:00 BACKUP ADMINISTRATIVE COORDINATOR, Duration: 2 doses or times, Sto p date: 09/12/16 10:00:00 BACKUP ADMINISTRATIVE COORDINATOR, Central Line Notes: (Same as: KCL) Infuse no faster than 10 mEq/hr if given peripherally. Start Date: 09/12/16 Stop Date: 09/12/16 Status: Completed potassium chloride 40 mEq, 2 tab, Route: PO, Drug form: ERTAB, ONCE, Dosing Weight 41.818, kg, PRN Abnormal Lab Result, Electrolyte replacement, Start date: 09/20/16 17:00:00 BACKUP ADMINISTRATIVE COORDINATOR Notes: (Same as: K-Dur 20)"Do Not Crush" With food and full glass of water Start Date: 09/20/16 Stop Date: 09/22/16 Status: Discontinued potassium chloride 40 mEq, 2 tab, Route: PO, Drug form: ERTAB, ONCE, Dosing Weight 41.818, kg, PRN Abnormal Lab Result, Electrolyte replacement, Start date: 09/20/16 18:00:00 BACKUP ADMINISTRATIVE COORDINATOR Notes: (Same as: K-Dur 20)"Do Not Crush" With food and full glass of water Start Date: 09/20/16 Stop Date: 09/22/16 Status: Discontinued potassium chloride 40 mEq, 2 tab, Route: PO, Drug form: ERTAB, Q2H, Dosing Weight 41.818, kg, Start date: 09/20/16 12:00:00 BACKUP ADMINISTRATIVE COORDINATOR, Duration: 2 doses or times, Stop date: 09/20/16 14 :00:00 BACKUP ADMINISTRATIVE COORDINATOR Notes: (Same as: K-Dur 20)"Do Not Crush" With food and full glass of water Start Date: 09/20/16 Stop Date: 09/20/16 Status: Completed potassium chloride 20 mEq, 100 mL, Route: IVPB, Drug form: INJ, ONCE, Dosing Weight 41.364, kg, Sta rt date: 09/12/16 12:07:00 BACKUP ADMINISTRATIVE COORDINATOR, Stop date: 09/12/16 12:07:00 BACKUP ADMINISTRATIVE COORDINATOR Notes: (Same as: KCL) Infuse no faster than 10 mEq/hr if given peripherally. Start Date: 09/12/16 Stop Date: 09/12/16 Status: Completed potassium chloride 40 mEq, Route: NG, Drug form: LIQ, ONCE, Dosing Weight 41.818, kg, Start date: 0 09/20/16 11:36:00 BACKUP ADMINISTRATIVE COORDINATOR, Stop date: 09/20/16 11:36:00 BACKUP ADMINISTRATIVE COORDINATOR Start Date: 09/20/16 Stop Date: 09/20/16 Status: Discontinued potassium chloride 20 mEq/15 mL oral liquid 40 mEq, 30 mL, Route: PO, Drug form: LIQ, ONCE, Dosing Weight 41.364, kg, Start date: 09/15/16 7:02:00 BACKUP ADMINISTRATIVE COORDINATOR, Stop date: 09/15/16 7:02:00 BACKUP ADMINISTRATIVE COORDINATOR Notes: (Same as: Potassium Chloride) Start Date: 09/15/16 Stop Date: 09/15/16 Status: Completed propofol (ANES) Route: IV, Drug form: INJ, ONCE, Stop date: 09/13/16 12:41:00 BACKUP ADMINISTRATIVE COORDINATOR Start Date: 09/13/16 Stop Date: 09/13/16 Status: Completed propranolol 20 mg, 2 tab, Route: PO, Drug form: TAB, TID, Dosing Weight 50, kg, Start date: 09/10/16 17:00:00 BACKUP ADMINISTRATIVE COORDINATOR, Duration: 30 day, Stop date: 10/10/16 13:00:00 CDT Notes: Give with food.(Same as: Inderal) Start Date: 09/10/16 Stop Date: 09/22/16 Status: Discontinued propranolol 20 mg oral tablet 20 mg=1 tab, PO, TID, # 90 tab, 0 Refill(s), Pharmacy: [id number] Start Date: 09/21/16 Status: Ordered Questran 4 gm, 1 pkt, Route: PO, Drug form: PDR/REC, Daily, Dosing Weight 41.818, kg, Nicole ority: NOW, Start date: 09/20/16 14:26:00 BACKUP ADMINISTRATIVE COORDINATOR, Duration: 30 day, Stop date: 09/27 12/12 9:00:00 CDT Notes: (Same As: Questran) Start Date: 09/20/16 Stop Date: 09/22/16 Status: Discontinued rocuronium (ANES) Route: IV, Drug form: INJ, ONCE, Stop date: 09/13/16 12:41:00 BACKUP ADMINISTRATIVE COORDINATOR Start Date: 09/13/16 Stop Date: 09/13/16 Status: Completed sodium chloride 0.9% 1000 ml INJ 1,000 mL 1,000 mL, Rate: 25 ml/hr, Infuse over: 40 hr, Route: IV, Dosing Weight 41.364 kg , Total Volume: 1,000, Start date: 09/12/16 8:31:00 BACKUP ADMINISTRATIVE COORDINATOR, Duration: 30 day, Stop date: 10/12/16 8:30:00 CDT Start Date: 09/12/16 Stop Date: 09/12/16 Status: Discontinued succinylcholine (ANES) Route: IV, Drug form: INJ, ONCE, Stop date: 09/13/16 12:46:00 BACKUP ADMINISTRATIVE COORDINATOR Start Date: 09/13/16 Stop Date: 09/13/16 Status: Completed Tylenol 650 mg, 20.3 mL, Route: PO, Drug form: LIQ, Q6H, Dosing Weight 50, kg, PRN Pain 1-3/Temp > 100.4 F, Start date: 09/10/16 16:45:00 BACKUP ADMINISTRATIVE COORDINATOR, Duration: 30 day, Stop date: 10/10/16 16:44:00 CDT Notes: Max jtjdxxrbcudvt=7229os/day (4 gm/day). (Same as: Tylenol) Start Date: 09/10/16 Stop Date: 09/22/16 Status: Discontinued vancomycin + sodium chloride 0.9% INJ 250 mL 1 gm, Route: IV, ONCE, Dosing Weight 41.364, kg, Start date: 09/12/16 10:55:[address], Stop date: 09/12/16 10:55:00 BACKUP ADMINISTRATIVE COORDINATOR Notes: TIME CRITICAL MEDICATION(Same As: Vancocin)Infusion rate< 1000 mg: infuse over 1 [id number] - 1500 mg: infuse over 1.5 [id number] - 2000 mg: infuse over 2 hours> 2001 mg: infuse over 2.5 hours MEDICATION WASTE Product Size: 1000 mgProduct Wasted: ___ mg Start Date: 09/12/16 Stop Date: 09/12/16 Status: Completed Zofran 4 mg, 2 mL, Route: IV, Drug form: INJ, Q6H, Dosing Weight 50, kg, PRN Nausea, St art date: 09/10/16 16:45:00 BACKUP ADMINISTRATIVE COORDINATOR, Duration: 30 day, Stop date: 10/10/16 16:44:00 CDT Notes: (Same as: Zofran) MEDICATION WASTE Product Size: 4 mgProduct Was nakul: ___ mg Start Date: 09/10/16 Stop Date: 09/18/16 Status: Voided With Results Results ELECTROLYTES 1 2 3 Most recent to oldest [Reference Range]: 133 mEq/L *LOW* (09/21/16 5:10 AM) 130 mEq/L *LOW* (09/20/16 10:20 AM) 136 mEq/L (09/18/16 5:53 AM) Sodium Lvl [135-145 mEq/L] 3.6 mEq/L (09/21/16 5:10 AM) 2.7 mEq/L 1 *CRIT* (09/20/16 10:20 AM) 3.4 mEq/L *LOW* (09/18/16 5:53 AM) Potassium Lvl [3.5-5.1 mEq/L] 98 mEq/L (09/21/16 5:10 AM) 93 mEq/L *LOW* (09/20/16 10:20 AM) 101 mEq/L (09/18/16 5:53 AM) Chloride Lvl [95-109 mEq/L] 26 mEq/L (09/21/16 5:10 AM) 25 mEq/L (09/20/16 10:20 AM) 27 mEq/L (09/18/16 5:53 AM) CO2 [24-32 mEq/L] 12.6 mEq/L (09/21/16 5:10 AM) 14.7 mEq/L (09/20/16 10:20 AM) 11.4 mEq/L (09/18/16 5:53 AM) AGAP [10.0-20.0 mEq/L] 1Result Comment: Critical Result(s) called to colin sosa at 09/20/2016 11:01 by robert. Read back OK. CHEM PANEL 1 2 3 Most recent to oldest [Reference Range]: 0.18 mg/dL *LOW* (09/21/16 5:10 AM) 0.22 mg/dL *LOW* (09/20/16 10:20 AM) <0.15 mg/dL *LOW* (09/18/16 5:53 AM) Creatinine Lvl [0.50-1.40 mg/dL] 169 mL/min/1.73m2 1 *NA* (09/21/16 5:10 AM) 158 mL/min/1.73m2 2 *NA* (09/20/16 10:20 AM) 179 mL/min/1.73m2 3 *NA* (09/18/16 5:53 AM) eGFR 5 mg/dL *LOW* (09/21/16 5:10 AM) 4 mg/dL *LOW* (09/20/16 10:20 AM) 8 mg/dL (09/18/16 5:53 AM) BUN [7-22 mg/dL] 18 (09/20/16 10:20 AM) See Note (09/18/16 5:53 AM) 32 *HI* (09/17/16 5:43 AM) B/C Ratio [6-25] 91 mg/dL (09/21/16 5:10 AM) 98 mg/dL (09/20/16 10:20 AM) 63 mg/dL *LOW* (09/18/16 5:53 AM) Glucose Lvl [70-99 mg/dL] 7.4 g/dL (09/21/16 5:10 AM) 7.3 g/dL (09/20/16 10:20 AM) 6.8 g/dL (09/18/16 5:53 AM) Total Protein [6.4-8.4 g/dL] 2.2 g/dL *LOW* (09/21/16 5:10 AM) 2.2 g/dL *LOW* (09/20/16 10:20 AM) 2.3 g/dL *LOW* (09/18/16 5:53 AM) Albumin Lvl [3.5-5.0 g/dL] 5.2 g/dL *HI* (09/21/16 5:10 AM) 5.1 g/dL *HI* (09/20/16 10:20 AM) 4.5 g/dL *HI* (09/18/16 5:53 AM) Globulin [2.7-4.2 g/dL] 0.4 *LOW* (09/21/16 5:10 AM) 0.4 *LOW* (09/20/16 10:20 AM) 0.5 *LOW* (09/18/16 5:53 AM) A/G Ratio [0.7-1.6] 8.3 mg/dL *LOW* (09/21/16 5:10 AM) 8.0 mg/dL *LOW* (09/20/16 10:20 AM) 8.1 mg/dL *LOW* (09/18/16 5:53 AM) Calcium Lvl [8.5-10.5 mg/dL] 3.3 mg/dL (09/10/16 5:20 PM) Phosphorus [2.5-4.5 mg/dL] 1.5 mg/dL *LOW* (09/21/16 5:10 AM) 1.4 mg/dL *LOW* (09/15/16 11:01 AM) 1.5 mg/dL *LOW* (09/13/16 6:16 AM) Magnesium Lvl [1.8-2.4 mg/dL] 63 unit/L (09/21/16 5:10 AM) 73 unit/L *HI* (09/20/16 10:20 AM) 60 unit/L (09/18/16 5:53 AM) ALT [0-65 unit/L] 39 unit/L *HI* (09/21/16 5:10 AM) 53 unit/L *HI* (09/20/16 10:20 AM) 60 unit/L *HI* (09/18/16 5:53 AM) AST [0-37 unit/L] 239 unit/L *HI* (09/21/16 5:10 AM) 232 unit/L *HI* (09/20/16 10:20 AM) 213 unit/L *HI* (09/18/16 5:53 AM) Alk Phos [39-136 unit/L] 0.9 mg/dL (09/21/16 5:10 AM) 0.7 mg/dL (09/20/16 10:20 AM) 0.3 mg/dL (09/18/16 5:53 AM) Bili Total [0.2-1.3 mg/dL] 0.2 mg/dL (09/21/16 5:10 AM) Bili Direct [0.0-0.3 mg/dL] 0.7 mg/dL (09/21/16 5:10 AM) Bili Indirect [0.0-1.0 mg/dL] 59 unit/L (09/20/16 10:20 AM) 49 unit/L (09/17/16 5:43 AM) 42 unit/L (09/16/16 7:41 AM) Amylase Lvl [25-115 unit/L] 267 unit/L (09/20/16 10:20 AM) 331 unit/L (09/18/16 5:53 AM) 307 unit/L (09/17/16 5:43 AM) Lipase Lvl [73-393 unit/L] 1Result Comment: [...] be mul tiplied by the estimated BMI. ENDOCRINOLOGY 1 2 3 Most recent to oldest [Reference Range]: Negative *NA* (09/13/16 3:00 AM) S Preg [Negative] URINE AND STOOL 1 2 3 Most recent to oldest [Reference Range]: Slight *ABN* (09/11/16 2:33 PM) UA Turbidity [Clear] Yellow *NA* (09/11/16 2:33 PM) UA Color [Yellow] 8.0 (09/11/16 2:33 PM) UA pH [5.0-8.0] 1.014 (09/11/16 2:33 PM) UA Spec Grav [<=1.030] Negative mg/dL *NA* (09/11/16 2:33 PM) UA Glucose [Negative mg/dL] Negative (09/11/16 2:33 PM) UA Blood [Negative] Negative mg/dL *NA* (09/11/16 2:33 PM) UA Ketones [Negative mg/dL] Negative mg/dL (09/11/16 2:33 PM) UA Protein [Negative mg/dL] <=1.0 mg/dL *NA* (09/11/16 2:33 PM) UA Urobilinogen [0.1-1.0 mg/dL] Negative *NA* (09/11/16 2:33 PM) UA Bili [Negative] Negative (09/11/16 2:33 PM) UA Leuk Est [Negative] Negative (09/11/16 2:33 PM) UA Nitrite [Negative] 1 /HPF (09/11/16 2:33 PM) UA WBC [0-5 /HPF] 1 /HPF (09/11/16 2:33 PM) UA RBC [0-2 /HPF] Occasional /LPF *NA* (09/11/16 2:33 PM) UA Sq Epi [Few /LPF] Occasional /HPF *NA* (09/11/16 2:33 PM) UA Amorph Ivory [None Seen /HPF] HEMATOLOGY 1 2 3 Most recent to oldest [Reference Range]: 6.0 K/CMM (09/21/16 5:10 AM) 8.3 K/CMM (09/20/16 10:20 AM) 4.9 K/CMM (09/18/16 5:53 AM) WBC [3.7-10.4 K/CMM] 3.78 M/CMM *LOW* (09/21/16 5:10 AM) 3.81 M/CMM *LOW* (09/20/16 10:20 AM) 3.63 M/CMM *LOW* (09/18/16 5:53 AM) RBC [4.20-5.40 M/CMM] 10.9 g/dL *LOW* (09/21/16 5:10 AM) 10.9 g/dL *LOW* (09/20/16 10:20 AM) 10.7 g/dL *LOW* (09/18/16 5:53 AM) Hgb [12.0-16.0 g/dL] 32.5 % *LOW* (09/21/16 5:10 AM) 32.4 % *LOW* (09/20/16 10:20 AM) 31.5 % *LOW* (09/18/16 5:53 AM) Hct [36.0-48.0 %] 86.0 fL (09/21/16 5:10 AM) 85.1 fL (09/20/16 10:20 AM) 86.9 fL (09/18/16 5:53 AM) MCV [80.0-98.0 fL] 28.9 pg (09/21/16 5:10 AM) 28.7 pg (09/20/16 10:20 AM) 29.5 pg (09/18/16 5:53 AM) MCH [27.0-31.0 pg] 33.6 g/dL (09/21/16 5:10 AM) 33.7 g/dL (09/20/16 10:20 AM) 34.0 g/dL (09/18/16 5:53 AM) MCHC [32.0-36.0 g/dL] 15.1 % *HI* (09/21/16 5:10 AM) 15.3 % *HI* (09/20/16 10:20 AM) 15.0 % *HI* (09/18/16 5:53 AM) RDW [11.5-14.5 %] 199 K/CMM (09/21/16 5:10 AM) 222 K/CMM (09/20/16 10:20 AM) 224 K/CMM (09/18/16 5:53 AM) Platelet [133-450 K/CMM] 10.5 fL *HI* (09/21/16 5:10 AM) 10.2 fL (09/20/16 10:20 AM) 9.9 fL (09/18/16 5:53 AM) MPV [7.4-10.4 fL] 61.5 % (09/21/16 5:10 AM) 71.1 % (09/20/16 10:20 AM) 64.1 % (09/18/16 5:53 AM) Segs [45.0-75.0 %] 21.8 % (09/21/16 5:10 AM) 14.5 % *LOW* (09/20/16 10:20 AM) 18.7 % *LOW* (09/18/16 5:53 AM) Lymphocytes [20.0-40.0 %] 12.7 % *HI* (09/21/16 5:10 AM) 11.5 % (09/20/16 10:20 AM) 9.7 % (09/18/16 5:53 AM) Monocytes [2.0-12.0 %] 3.4 % (09/21/16 5:10 AM) 2.5 % (09/20/16 10:20 AM) 7.0 % *HI* (09/18/16 5:53 AM) Eosinophils [0.0-4.0 %] 0.6 % (09/21/16 5:10 AM) 0.4 % (09/20/16 10:20 AM) 0.5 % (09/18/16 5:53 AM) Basophils [0.0-1.0 %] 3.7 K/CMM (09/21/16 5:10 AM) 5.9 K/CMM (09/20/16 10:20 AM) 3.1 K/CMM (09/18/16 5:53 AM) Segs-Bands # [1.5-8.1 K/CMM] 1.3 K/CMM (09/21/16 5:10 AM) 1.2 K/CMM (09/20/16 10:20 AM) 0.9 K/CMM *LOW* (09/18/16 5:53 AM) Lymphocytes # [1.0-5.5 K/CMM] 0.8 K/CMM (09/21/16 5:10 AM) 1.0 K/CMM *HI* (09/20/16 10:20 AM) 0.5 K/CMM (09/18/16 5:53 AM) Monocytes # [0.0-0.8 K/CMM] 0.2 K/CMM (09/21/16 5:10 AM) 0.2 K/CMM (09/20/16 10:20 AM) 0.3 K/CMM (09/18/16 5:53 AM) Eosinophils # [0.0-0.5 K/CMM] 0.1 K/CMM (09/10/16 5:20 PM) Basophils # [0.0-0.2 K/CMM] 14.0 seconds (09/12/16 5:24 AM) PT [12.0-14.7 seconds] 1.06 (09/12/16 5:24 AM) INR [0.85-1.17] 24.8 seconds (09/12/16 5:24 AM) PTT [22.9-35.8 seconds] Immunizations Not Given Vaccine Date Status Refusal [...] stent on 08/06/16 (Dr Ezequiel Vaughn @ [facility]) ; ERCP w CBD stone removal and failed deep PD cannulation on 08/24/16 (Dr Olga Vaughn @ [facility]) ; IR drain for infrapancreatic pseudocyst; repeat ERCP with deep cannulation, PD plastic stent, clearence of CBD and removal of Axios metal stent on 09/12/16 (Dr Gleason @[facility] [place]) -Repeat CT scan; labs looked much better; NJ removed and he is tolerated low fat diet. -IR drain flush at home w recording. -Repeat ERCP w PD stent exchange in 6-8 weeks. -Creon TID for pain and diarrhea. 2. Adnexal masses -Ob Onc consultation with [place] dept noted; outpatient f/u recommended. 3. Thyrotoxicosis [...] drain in place. Ext : no edema COPYWRITER: No gross motor/sensory defects VitalsTmp(F)Tmp(C)ZndujLSKDBXbxqaHJXcM0CIW5BLFK0 09/21 16:0098.737.75danu313/81---[id number]------ 09/21 11:5998.536.91whqr506/71---[id number]------ 09/21 07:2898.336.59wuww554/81---002754------ 09/21 04:0298.536.16doig482/71---[id number]------ 09/21 00:0498.536.73iqba133/68---[id number]------ 24 Hr Tmax: 98.7F (37.06c) at 09/21 16:00Vital Signs are the last 5 in the past 48 hours. 24 Hr Tmin: 98.2F (36.78c) at 09/20 20:44Weights are the last 5 in 60 days, plus initial. DateWt(kg)Wt(lb)Ht(cm)Ht(in)MethodBMI 09/21 54.29 119.44Measured 09/19 59.73 131.40Measured 09/18 55.50 122.10Measured 09/17 53.91 118.60Measured 09/16 41.82 92.00Measured 09/10 (initial) 41.36 91.00Estimated 16.7 43780.48 62.00Stated Most Recent Scores: 09/21/16Pain Intensity NRS (0-10)8 09/21/16Glasgow Coma Score15 09/20/16Johns Contreras Fall Score6 09/20/16Braden Score19 Lines, Tubes, and Drains: 09/13/2016 17:00 Surgical Drains: Jeremías Lainez Drain 16 fr abdominal fluid drain Right 09/13/2016 11:00 Gastric Tubes: Nasoduodenal Nostril, right 09/13/2016 08:40 Gastric Tubes: Nasogastric Nostril, right 09/10/2016 20:30 Central Lines: Basilic vein, left PICC Triple Surgical Procedures: 09/13/16 12:07CYSTOSCOPY / RETROGRADE / STENT EXCHANGE, LEFT [id number] Surgeon: Cristóbal Mars MD (Service: URO) 09/12/16 08:56ERCP / MAC [id number] Surgeon: Sadie Gleason MD (Service: END) I&ORecordInOutBal 08/2423hr Tot 543 0 543 08/2323hr Tot 643 20 623 24hr Labs 09/21 1540 Glucose GKU213 H 09/21 1040 Glucose FWW882 H 09/21 0641 Glucose AHQ565 H 09/21 0510 Total Protein7.4 Albumin Lvl2.2 L Bili Total0.9 Bili Direct0.2 Bili Indirect0.7 Alk Pnli306 H AST39 H ALT63 Globulin5.2 H A/G Ratio0.4 L Magnesium Lvl1.5 L Glucose Lvl91 BUN5 L Creatinine Lvl0.18 L Sodium Ntu976 L Potassium Lvl3.6 Chloride Lvl98 CO226 AGAP12.6 Calcium Lvl8.3 L jGYI906 WBC6.0 RBC3.78 L Hgb10.9 L Hct32.5 L MCV86.0 MCH28.9 MCHC33.6 RDW15.1 H Wicvlqvs269 MPV10.5 H Segs61.5 Pszazzxji10.7 H Kracsdteiwo71.8 Eosinophils3.4 Basophils0.6 Segs-Bands #3.7 Lymphocytes #1.3 Monocytes #0.8 Eosinophils #0.2 09/20 2120 Glucose POC93 Scheduled Meds (6): cholestyramine (Questran) 4 gm PO Daily [Last Rescheduled Dt/Tm: 09/21/16 9:00:00 BACKUP ADMINISTRATIVE COORDINATOR] [eMAR Schedule: (09/21/16) 09:00] [Future Dose: 09/22/16 09:00] enoxaparin 40 mg SUB-Q Daily [Last Rescheduled Dt/Tm: 09/10/16 21:00:00 BACKUP ADMINISTRATIVE COORDINATOR] [eMAR Schedule: (09/21/16) 21:00] [Future Dose: 09/22/16 21:00] methimazole 10 mg PO Q8H [eMAR Schedule: (09/21/16) 00:00, 08:00, 16:00; (09/22/16) 00:00] pancrelipase (Creon 24,000 units oral delayed release capsule) 1 cap PO TID- Before Meals [Last Rescheduled Dt/Tm: 09/21/16 7:30:00 BACKUP ADMINISTRATIVE COORDINATOR] [eMAR Schedule: (09/21/16) 07:30, 11:30, 16:30; (09/22/16) 07:30] pantoprazole 40 mg PO Before Dinner [eMAR Schedule: (09/21/16) 16:30] [Future Dose: 09/22/16 16:30] propranolol 20 mg PO TID [Last Rescheduled Dt/Tm: 09/11/16 9:00:00 BACKUP ADMINISTRATIVE COORDINATOR] [eMAR Schedule: (09/21/16) 09:00, 13:00, 17:00] Unscheduled [...] Voluntary Type of Urinary Elimination: Continent Extracted from: Title: Urology Consult Author: Edwin Mcnamara Date: 09/12/16 Patient: FLOR MALDONADOCk Toribio Age: 40 years Sex: Female : 1975 [...] NKDA- No reactions were documented., Allergies (2) ActiveReaction ciprofloxacinNone Documented KeflexRash, NOS Current medications: (Selected) Inpatient Medications Ordered [...] ondansetron: 4 mg, IVP, ONCE, PRN: Nausea & Vomiting ANES oxyCODONE: 10 mg, PO, Q4H, PRN: Pain Score 7-10 ANES oxyCODONE: 5 mg, PO, Q4H, PRN: Pain Score 4-6 ANES promethazine: 6.25 mg, IVPB, ONCE, PRN: Nausea & Vomiting D5W 1/2NS 1,000 mL: 75 ml/hr, [...] mg, 2 mL, IVP, Q6H, PRN: Nausea & Vomiting pantoprazole: 40 mg, IVP, Before Dinner propranolol: 20 mg, 2 tab, PO, TID Documented Medications Suspended [place] 5/325 oral tablet: 1 tab, PO, Q6H, PRN: Pain Score 1-3, 0 Refill(s) enoxaparin: 40 mg, 0.4 mL, SUB-Q, kljeW10X, 0 Refill(s) insulin isophane (NPH) 100 units/mL [...] list: All Problems Hypomagnesemia / SNOMED CT 404539469 / Confirmed MRSA / SNOMED CT 539722127 / Confirmed Problem added by Discern Expert. Cyst fluid, 08/06/2016 Severe malnutrition / SNOMED CT 27890521 / Confirmed, Active Problems (3) Hypomagnesemia MRSA Severe malnutrition Histories Past Medical History: Active Severe malnutrition (37843593): Onset on 08/27/2016 at 40 years. Resolved Goiter (240.9): Resolved. Heartburn (787.1): Resolved. Gallbladder disease (589659541): Resolved. Diabetes (155514701): Resolved. Hypophosphatemia (9457458): Resolved on 08/31/2016 at 40 years. Family History: Asthma Father Comments: 08/14/2012 20:08 - James Santos RN as a child Type 2 diabetes mellitus Mother Procedure history: Cholecystectomy ([id number]) on 07/29/2016 at 40 Years. Tubal ligation ([id number]). Social History Social & Psychosocial Habits Alcohol 07/05/2016 Use: Never Sexual 07/05/2016 Sexually active: Yes Substance Abuse 07/05/2016 Use: None Tobacco 09/10/2016 Use: Former smoker Ready to change: No Concerns about tobacco use in household: No Exposure to Tobacco Smoke None Cigarette Smoking Last 365 Days No Reg Smoking Cessation Counseling No . Physical Examination VS/Measurements Vital Signs (last 24 hrs) Last Charted Temp Oral98.2 DegF (SEP 12 06:19) Heart Rate ApicalH 119bpm (SEP 12 10:52) Resp Rate 20 BRMIN (SEP 12 10:52) BYM889 mmHg (SEP 12 10:52) DBPH 91mmHg (SEP 12 10:52) LsT846 % (SEP 12 10:52) General: Alert and [...] angle tenderness. Musculoskeletal No clubbing/cyanosis/edema Integumentary: Warm, [place]. Neurologic: Alert, Oriented. Cognition and Speech: Oriented, Speech clear and coherent. Review / Management Results review: Labs (Last four charted values) WBC 5.9(SEP 12)9.0(SEP 10) Hgb L 11.9(SEP 12)L 11.5(SEP 10) Hct L 35.8(SEP 12)L 34.0(SEP 10) Plt 289(SEP 12)305(SEP 10) Na L 132(SEP 12)L 131(SEP 10) K L 3.2(SEP 12)3.9(SEP 10) CO2 31(SEP 12)28(SEP 10) Cl L 93(SEP 12)L 94(SEP 10) Cr L 0.22(SEP 12)L 0.22(SEP 10) BUN 14(SEP 12)18(SEP 10) Glucose Random H 123(SEP 12)87(SEP 10) Mg L 1.7(SEP 10) Phos 3.3(SEP 10) Ca 9.2(SEP 12)9.4(SEP 10) PT 14.0(SEP 12) INR 1.06(SEP 12) PTT 24.8(SEP 12). Impression and Plan 40 year old female [...] in OR. Discussed with Dr. Mars. Addendum Patient seen and examined, agree with H&P, plan as per Dr. 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 To OR for cysto, L RPG, L stent fili Mars. On CT no evidence of R sided hydronephrosis or obstruction will therefore Cristóbal Cartwright continue with left sided unilateral stent. If hydro does develop may need R stent in the MD on future. 09/13/2016 I personally reveiwed the patient's labs and imaging reports, looked at the images 08:44 themselves, and contacted the consulting physician to discuss the above plan. Cristóbal Mars MD [facility] Office: [phone]
--- OUTSIDE RECORDS SUMMARY | 2019-02-11 16:47 | XMS REPORT | Clinical Summary ---
Author Author [facility] Organization [facility] Address Unknown Phone Unavailable Care Team Providers Care Securities Dealer Name Role Phone PCP Unavailable Allergies Comments Active Allergy Reactions Severity Noted Date Cefazolin 09/23/2017 Ciprofloxacin Hives 09/23/2017 Cephalexin Hives 09/23/2017 Medications End Date Status Medication Sig Dispensed Refills Start Date Active ibuprofen (MOTRIN) 800 mg Take 1 tablet 30 tablet 2 tabletIndications: by mouth 8 Uterine leiomyoma, every 8 hours unspecified location as needed for Pain. Active insulin detemir U-100 Inject 30 0 (LEVEMIR) 100 unit/mL Units under injection the skin every evening . Active insulin aspart U-100 Inject 12 0 (NOVOLOG U-100 INSULIN Units under ASPART) 100 unit/mL the skin 3 injection times daily. 09/30/2017 Discontinued traMADol (ULTRAM) 50 mg Take 1 tablet 15 tablet 0 tabletIndications: by mouth 8 Uterine leiomyoma, every 8 hours unspecified location as needed for Pain. 09/25/2017 fluconazole (DIFLUCAN) Take 1 tablet 1 tablet 0 150 mg tabletIndications: by mouth once 8 Yeast infection of the for 1 dose. vagina 09/30/2017 Discontinued methIMAzole (TAPAZOLE) 5 Take 15 mg by 0 mg tablet mouth 3 times daily. 09/30/2017 Discontinued Metoprolol-Hydrochlorothi Take 1 tablet 0 azide 100-25 mg per by mouth tablet daily. 09/30/2017 Discontinued metoprolol tartrate Take 25 mg by 0 (LOPRESSOR) 25 mg tablet mouth 2 times daily. 09/30/2017 Discontinued sulfamethoxazole-trimetho Take 1 tablet 8 tablet 0 prim (BACTRIM DS) 800-160 by mouth 2 8 mg per tabletIndications: times daily Recurrent UTI for 4 days. 09/30/2017 Discontinued ferrous sulfate 325 mg Take 1 tablet 30 tablet 2 (65 mg iron) by mouth 8 tabletIndications: Iron daily for 90 deficiency anemia, days. unspecified iron deficiency anemia type 12/29/2017 methIMAzole (TAPAZOLE) 10 Take 2 180 tablet 2 09/30/ mg tabletIndications: tablets by 8 Hyperthyroidism mouth 3 times daily for 90 days. 09/30/2017 Discontinued propranolol (INDERAL) 10 Take 3 270 tablet 2 mg tabletIndications: tablets by 8 Hyperthyroidism mouth 3 times daily for 90 days. 10/07/2017 traMADol (ULTRAM) 50 mg Take 2 30 tablet 0 tabletIndications: tablets by 8 Uterine leiomyoma, mouth every 6 unspecified location hours as needed for up to 7 days for Pain. 12/30/2017 ferrous sulfate 325 mg Take 1 tablet 30 tablet 2 (65 mg iron) by mouth 8 tabletIndications: Iron daily for 90 deficiency anemia, days. unspecified iron deficiency anemia type 12/29/2017 propranolol (INDERAL) 10 Take 3 270 tablet 2 mg tabletIndications: tablets by 8 Hyperthyroidism mouth 3 times daily for 90 days. 10/04/2017 sulfamethoxazole-trimetho Take 1 tablet 8 tablet 0 prim (BACTRIM DS) 800-160 by mouth 2 8 mg per tabletIndications: times daily Recurrent UTI for 4 days. 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 [employer] -Currently on Methimazole 15 mg TID -Currently denies palpitations, SOB, or difficulty breathing Common bile duct dilation History of pancreatitis Microcytic anemia Overview: -Hgb 7.8 -Likely 2/2 FE deficiency -Reports compliance w/ Fe Hydroureteronephrosis Resolved Problems Problem Noted Date Resolved Date Yeast infection of the vagina 09/25/2017 10/07/2017 H/O acute pancreatitis 09/23/2017 09/23/2017 Tachycardia 09/30/2017 Encounters Care Team Description Date Type Specialty NO SHOW ENCOUNTER (Primary Dx) 04/08/2018 Office Visit Urology Jarvis Marx MD Wallace Huff, Cristina M, MD Submucous leiomyoma of uterus (Primary Dx); Recurrent UTI; Pelvic pain; Essential hypertension; Type 2 diabetes mellitus with complication, with long-term current use of insulin; Hyperthyroidism; Complicated UTI (urinary tract infection); History of pancreatitis; Microcytic anemia; Hydroureteronephrosis 10/07/2017 Office Visit Gynecology Randy Vicente MD Govindu, Rukma R, MD Recurrent UTI (Primary Dx); Hyperthyroidism; Complicated UTI (urinary tract infection); Pelvic pain; History of pancreatitis; Common bile duct dilation; Type 2 diabetes mellitus with complication, with long-term current use of insulin; Iron deficiency anemia, unspecified iron deficiency anemia type; Uterine leiomyoma, unspecified location 09/26/2017 Hospital - Encounter 09/30/2017 Lashon Ochoa ResidentMD Yeast infection of the vagina (Primary Dx) 09/25/2017 Orders Only Gynecology 09/24/2017 Hospital Radiology Encounter Lashon Ochoa ResidentMD Pelvic pain (Primary Dx) 09/24/2017 Orders Only Gynecology Jarvis Marx MD 09/23/2017 Hospital Lab Encounter Jarvis Marx MD Tran Cao, Carol H, MD Uterine leiomyoma, unspecified location (Primary Dx); Recurrent UTI; Type 2 diabetes mellitus with complication, with long-term current use of insulin; Hyperthyroidism 09/23/2017 Office Visit Gynecology after 09/16/2017 Family History Medical History Relation Name Comments Diabetes type II Mother Heart disease Other Relation Name Status Comments Mother Other Social History Date Tobacco Use Types Packs/Day Years Used Never Assessed Sex Assigned at Date Recorded Not on file Industry Job Start Date Occupation Not on file Not on file Not on file Travel End Travel History Travel Start No recent travel history available. Last Filed Vital Signs Time Taken Vital Sign Reading 10/07/2017 3:16 PM CDT Blood Pressure 128/88 10/07/2017 3:16 PM CDT Pulse 96 10/07/2017 3:16 PM CDT Temperature 36.7 C (98 F) 10/07/2017 3:16 PM CDT Respiratory Rate 18 09/29/2017 12:14 AM OPTICAL SCIENTIST Oxygen Saturation 98% - Inhaled Oxygen - Concentration 10/07/2017 3:16 PM CDT Weight 49.4 kg (108 lb 12.8 oz) 10/07/2017 3:16 PM CDT Height 154.9 cm (5' 1") 10/07/2017 3:16 PM CDT Body Mass Index 20.56 Plan of Treatment Health Maintenance Due Date Last Done Comments DM Foot Exam (Yearly) 1992 DM Retinal Exam (Yearly) 1992 Cervical Cancer Scrn (3 10/27/1995 Yrs) Breast Cancer Scrn 2014 (Yearly) IMM Influenza Seasonal 04/28/2018Apr to September (>/=19 yrs) DM HGBA1C (Yearly) 09/23/2018 09/23/2017 DM Microalbumin Urine 09/26/2018 09/26/2017, 09/23/2017 Scrn (Yearly) Procedures Comments Procedure Name Priority Date/Time Associated Diagnosis GLUCOSE POC Routine 09/30/2017 11:42 AM OPTICAL SCIENTIST GLUCOSE POC Routine 09/30/2017 7:57 AM OPTICAL SCIENTIST CBC/DIFF Routine 09/30/2017 4:50 AM OPTICAL SCIENTIST BASIC METABOLIC PANEL Routine 09/30/2017 4:50 AM OPTICAL SCIENTIST MRI PANCREAS W/O CONTRAST Routine 09/30/2017 History of pancreatitis 2:31 AM OPTICAL SCIENTIST Common bile duct dilation GLUCOSE POC Routine 09/29/2017 8:24 PM OPTICAL SCIENTIST GLUCOSE POC Routine 09/29/2017 5:08 PM OPTICAL SCIENTIST GLUCOSE POC Routine 09/29/2017 11:39 AM OPTICAL SCIENTIST PATHOLOGIST REVIEW Routine 09/29/2017 10:40 AM OPTICAL SCIENTIST CBC/DIFF STAT 09/29/2017 10:40 AM OPTICAL SCIENTIST FERRITIN STAT 09/29/2017 10:40 AM OPTICAL SCIENTIST VITAMIN B12 STAT 09/29/2017 10:40 AM OPTICAL SCIENTIST RETIC COUNT STAT 09/29/2017 10:40 AM OPTICAL SCIENTIST LDH STAT 09/29/2017 10:40 AM OPTICAL SCIENTIST FOLIC ACID STAT 09/29/2017 10:40 AM OPTICAL SCIENTIST HAPTOGLOBIN STAT 09/29/2017 10:40 AM OPTICAL SCIENTIST IRON PROFILE STAT 09/29/2017 10:40 AM OPTICAL SCIENTIST GLUCOSE POC Routine 09/29/2017 7:26 AM OPTICAL SCIENTIST BASIC METABOLIC PANEL Routine 09/29/2017 4:00 AM OPTICAL SCIENTIST CBC/DIFF Routine 09/29/2017 4:00 AM OPTICAL SCIENTIST GLUCOSE POC Routine 09/28/2017 8:08 PM OPTICAL SCIENTIST VANCOMYCIN, TROUGH Routine 09/28/2017 6:22 PM OPTICAL SCIENTIST GLUCOSE POC Routine 09/28/2017 4:11 PM OPTICAL SCIENTIST GLUCOSE POC Routine 09/28/2017 11:33 AM OPTICAL SCIENTIST GLUCOSE POC Routine 09/28/2017 7:37 AM OPTICAL SCIENTIST MAGNESIUM Routine 09/28/2017 3:35 AM OPTICAL SCIENTIST PHOSPHORUS Routine 09/28/2017 3:35 AM OPTICAL SCIENTIST LIVER PROFILE Routine 09/28/2017 3:35 AM OPTICAL SCIENTIST BASIC METABOLIC PANEL Routine 09/28/2017 3:35 AM OPTICAL SCIENTIST CBC/DIFF Routine 09/28/2017 3:35 AM OPTICAL SCIENTIST GLUCOSE POC Routine 09/27/2017 9:52 PM OPTICAL SCIENTIST GLUCOSE POC Routine 09/27/2017 8:18 PM OPTICAL SCIENTIST VANCOMYCIN, TROUGH Routine 09/27/2017 6:50 PM OPTICAL SCIENTIST TOTAL T3 Routine 09/27/2017 5:07 PM OPTICAL SCIENTIST THYROID PEROXIDASE (TPO) STAT 09/27/2017 AB 5:07 PM OPTICAL SCIENTIST THYROID STIM IMMUN STAT 09/27/2017 5:07 PM OPTICAL SCIENTIST VANCOMYCIN, TROUGH Routine 09/27/2017 5:07 PM OPTICAL SCIENTIST GLUCOSE POC Routine 09/27/2017 5:00 PM OPTICAL SCIENTIST U/S THYROID/NECK MEMO 09/27/2017 Complicated UTI (urinary 4:27 PM OPTICAL SCIENTIST tract infection) GLUCOSE POC Routine 09/27/2017 12:43 PM OPTICAL SCIENTIST U/S ABDOMEN STAT 09/27/2017 Recurrent UTI 12:18 PM OPTICAL SCIENTIST Pelvic pain URINE DRUG SCREEN STAT 09/27/2017 11:01 AM OPTICAL SCIENTIST INFUSION PUMP STAT 09/27/2017 10:18 AM OPTICAL SCIENTIST HEPATITIS PANEL STAT 09/27/2017 10:04 AM OPTICAL SCIENTIST PT/INR/PTT STAT 09/27/2017 10:04 AM OPTICAL SCIENTIST COMPREHENSIVE METABOLIC STAT 09/27/2017 PANEL(DBIL NOT INCLUDED) 10:04 AM OPTICAL SCIENTIST CBC/DIFF STAT 09/27/2017 10:04 AM OPTICAL SCIENTIST BEDSIDE ULTRASOUND Routine 09/27/2017 4:05 AM OPTICAL SCIENTIST VBG POC Routine 09/27/2017 2:45 AM OPTICAL SCIENTIST XRAY CHEST 1 VIEW STAT 09/26/2017 Recurrent UTI 11:51 PM OPTICAL SCIENTIST Hyperthyroidism VBG POC Routine 09/26/2017 11:03 PM OPTICAL SCIENTIST BMP POC Routine 09/26/2017 11:03 PM OPTICAL SCIENTIST FREE T4 STAT 09/26/2017 11:00 PM OPTICAL SCIENTIST TSH STAT 09/26/2017 11:00 PM OPTICAL SCIENTIST UA CHEMISTRIES STAT 09/26/2017 11:00 PM OPTICAL SCIENTIST CBC/DIFF STAT 09/26/2017 11:00 PM OPTICAL SCIENTIST URINE CULTURE STAT 09/26/2017 11:00 PM OPTICAL SCIENTIST BLOOD CULTURE STAT 09/26/2017 11:00 PM OPTICAL SCIENTIST BLOOD CULTURE STAT 09/26/2017 11:00 PM OPTICAL SCIENTIST 12 LEAD EKG Routine 09/26/2017 9:58 PM OPTICAL SCIENTIST U/S PELVIS NON-OB Routine 09/24/2017 Uterine leiomyoma, 12:20 PM OPTICAL SCIENTIST unspecified location U/S TRANSVAGINAL Routine 09/24/2017 Uterine leiomyoma, 12:20 PM OPTICAL SCIENTIST unspecified location URINE CULTURE Routine 09/23/2017 Recurrent UTI 2:26 PM OPTICAL SCIENTIST SYPHILIS SCREEN FOR Routine 09/23/2017 INFECTION 2:25 PM OPTICAL SCIENTIST HIV-1/HIV-2 Routine 09/23/2017 DIAGNOSTIC/SYMPTOMATIC 2:25 PM OPTICAL SCIENTIST HEMOGLOBIN A1C Routine 09/23/2017 Type 2 diabetes mellitus 2:25 PM OPTICAL SCIENTIST with complication, with long-term current use of insulin FREE T4 Routine 09/23/2017 Hyperthyroidism 2:25 PM OPTICAL SCIENTIST TSH Routine 09/23/2017 Hyperthyroidism 2:25 PM OPTICAL SCIENTIST UA CHEMISTRIES Routine 09/23/2017 Recurrent UTI 2:25 PM OPTICAL SCIENTIST CHLAM/GC DNA AMPLI Routine 09/23/2017 Uterine leiomyoma, 1:33 PM OPTICAL SCIENTIST unspecified location [facility] CYTOLOGY PATHOLOGY Routine 09/23/2017 1:30 PM OPTICAL SCIENTIST WET MOUNT Routine 09/23/2017 Uterine leiomyoma, 1:30 PM OPTICAL SCIENTIST unspecified location CLARISSA STAIN Routine 09/23/2017 Uterine leiomyoma, 1:30 PM OPTICAL SCIENTIST unspecified location HPV HIGH-RISK Routine 09/23/2017 Uterine leiomyoma, 1:30 PM OPTICAL SCIENTIST unspecified location after 09/16/2017 Results * GLUCOSE POC (09/30/2017 11:42 AM OPTICAL SCIENTIST) Only the most recent of 14 results within the time period is included. Glucose POC 205 (H) 74 - 106 mg/dL [facility] 1 Performing Organization Address City/State/Zipcode Phone Number MISYS [facility] 1 * CBC/DIFF (09/30/2017 4:50 AM OPTICAL SCIENTIST) Only the most recent of 6 results within the time period is included. WBC 3.7 (L) 4.5 - 11.0 K/uL [facility] 2 RBC 3.62 (L) 4.20 - 5.40 M/uL [facility] 2 Hemoglobin 7.8 (L) 12.0 - 16.0 g/dL [facility] 2 Hematocrit 27.0 (L) 37.0 - 47.0 % [facility] 2 MCV 75 (L) 82 - 92 fL [facility] 2 MCH 21.5 (L) 27.0 - 32.0 pg [facility] 2 MCHC 28.9 (L) 32.0 - 36.0 g/dL [facility] 2 RDW 54.4 (H) 36.4 - 46.3 fL [facility] 2 Platelet 300 150 - 400 K/uL [facility] 2 Mean Platelet 11.4 9.4 - 12.4 fL [facility] Volume MAIN-STATION 2 Percent NRBC 0.0 [facility] 2 Absolute NRBC 0.00 [facility] 2 Neutrophil 44.5 34.0 - 70.0 % [facility]IN-STATION 2 Lymphocyte 37.9 20.0 - 50.0 % [facility] 2 Monocyte 12.4 (H) 5.0 - 12.0 % [facility]IN-STATION 2 Eosinophil 4.6 0.7 - 5.0 % [facility] 2 Basophil 0.3 0.1 - 1.2 % [facility] 2 Pct Immat Gran 0.3 0.0 - 0.5 [facility] 2 Neutrophil, Abs 1.66 1.56 - 6.13 K/uL [facility] 2 Lymphocyte, Abs 1.41 1.18 - 3.74 K/uL [facility] 2 Monocyte, Abs 0.46 (H) 0.24 - 0.36 K/uL [facility] 2 Eosinophil, Abs 0.17 0.04 - 0.36 K/uL [facility] 2 Basophil, Abs 0.01 0.01 - 0.08 K/uL [facility] 2 Absol Immat 0.01 0.00 - 0.03 K/uL [facility] Gran MAIN-STATION 2 Specimen Blood Performing Organization Address City/State/Zipcode Phone Number MISYS [facility] 2 * BASIC METABOLIC PANEL (09/30/2017 4:50 AM OPTICAL SCIENTIST) Only the most recent of 3 results within the time period is included. CO2 25 21 - 32 mmol/L [facility] 4 Chloride 105 98 - 107 mmol/L [facility] 4 Potassium 3.6 3.50 - 5.10 mmol/L [facility] 4 Sodium 138 136 - 145 mmol/L [facility] 4 Glucose 193 (H) 70 - 99 mg/dL [facility] 4 Urea Nitrogen 10 7 - 18 mg/dL [facility] 4 Creatinine 0.30 (L) 0.60 - 1.30 mg/dL [facility] 4 Anion Gap 8 [facility] 4 Calcium 8.3 (L) 8.50 - 10.20 mg/dL [facility] 4 GFR, Estimated >60 mL/min/1.73 m2 [facility] 4 GFR, Estim, >60 mL/min/1.73 m2 [facility] Afr-Am MAIN-STATION 4 Specimen Blood Performing Organization Address City/State/Zipcode Phone Number MISYS [facility] 4 * MRI PANCREAS W/O CONTRAST (09/30/2017 2:31 AM OPTICAL SCIENTIST) Impressions Performed At IMPRESSION: SMS 1.Mild intrahepatic [...] Performed At EXAM: MR ABDOMEN WITHOUT CONTRAST [facility] DATE: 09/30/2017 2:31 AM INDICATION: Pancreatitis. Common [...] renal pelvis and the distal outside the [id number]. *Moderate to severe left hydronephrosis is again [...] Interface, Rad/Mammog In - 09/30/2017 3:09 PM OPTICAL SCIENTIST EXAM: MR ABDOMEN WITHOUT CONTRAST DATE: 09/30/2017 [...] renal pelvis and the distal outside the [id number]. * Moderate to severe left hydronephrosis is [...] MD, 09/30/2017 3:04 PM Performing Organization Address [facility] Phone Number SMS * PATHOLOGIST REVIEW (09/29/2017 10:40 AM OPTICAL SCIENTIST) Pathologist Gama Hernandez M.D./[id number] [facility] Review (note) MAIN-STATION 2 Pt name: Chika Bojorquez PB smear bar code# [id number] CBC and peripheral blood smear review: Microcytic, hypochromatic anemia CBC and differential confirmed Morphology: RBCs: Decreased in number; microocytic, hypochromic; mild anisopoikilocytosis; polychromasia not adequate; schistocytes absent; nucleated RBCs absent; intracellular organisms absent. WBCs: normal in number; normal morphology; dysplasia absent; rare plasma cells present Platelets: normal in number; normal morphology many large forms. platelet clumps present CPT [id number] Gama Hernandez MD #[id number] Performing Organization Address [facility] Phone Number MISYS [facility] 2 * FOLIC ACID (09/29/2017 10:40 AM OPTICAL SCIENTIST) Folic Acid 19.9 5.9 - 24.8 ng/mL BT OUTPATIENT DRAW 2 Specimen Blood Performing Organization Address [facility] Phone Number MISYS BT OUTPATIENT DRAW 2 * FERRITIN (09/29/2017 10:40 AM OPTICAL SCIENTIST) Ferritin 30.60 11.0 - 306.8 ng/mL BT OUTPATIENT DRAW 2 Specimen Blood Performing Organization Address [facility] Phone Number MISYS BT OUTPATIENT DRAW 2 * VITAMIN B12 (09/29/2017 10:40 AM OPTICAL SCIENTIST) Vitamin B12 656 211 - 911 pg/mL [facility] MAIN-STATION 3 Specimen Blood Performing Organization Address [facility] Phone Number MISYS BT MAIN-STATION 3 * RETIC COUNT (09/29/2017 10:40 AM OPTICAL SCIENTIST) Retic Count 1.3 0.5 - 1.7 % [facility] 2 Immature Retic 18.2 (H) 3.0 - 15.9 % [facility]IN[facility] 2 Ret Hgb 23.00 (L) 30.8 - 36.6 pg [facility] Equivalent MAIN-STATION 2 Absolute Retic 0.05 0.02 - 0.08 M/uL [facility]IN[facility] 2 Specimen Blood Performing Organization Address [facility] Phone Number [facility] * LDH (09/29/2017 10:40 AM OPTICAL SCIENTIST) LDH 161 84 - 246 U/L [facility] MAIN-STATION 2 Specimen Blood Performing Organization Address [facility] Phone Number [facility] 2 * IRON PROFILE (09/29/2017 10:40 AM OPTICAL SCIENTIST) Iron 182 50 - 212 ug/dL [facility] MAIN-STATION 3 TIBC 312 250 - 450 ug/dL [facility] MAIN-STATION 3 % Iron Sat 58 % [facility] MAIN-STATION 3 Specimen Blood Performing Organization Address [facility] Phone Number [facility] MAIN-STATION 3 * HAPTOGLOBIN (09/29/2017 10:40 AM OPTICAL SCIENTIST) Haptoglobin 206.5 44 - 215 mg/dL [facility] MAIN-STATION 3 Specimen Blood Performing Organization Address [facility] Phone Number [facility] MAIN-STATION 3 * VANCOMYCIN, TROUGH (09/28/2017 6:22 PM OPTICAL SCIENTIST) Only the most recent of 3 results within the time period is included. Vancomycin, 9.7 (L) 10 - 20 ug/mL [facility] Trough MAIN-STATION 1 Specimen Blood Performing Organization Address [facility] Phone Number [facility] MAIN-STATION 1 * PHOSPHORUS (09/28/2017 3:35 AM OPTICAL SCIENTIST) Phosphorus 2.6 2.5 - 4.9 mg/dL [facility] MAIN-STATION 4 Specimen Blood Performing Organization Address [facility] Phone [facility] 4 * MAGNESIUM (09/28/2017 3:35 AM OPTICAL SCIENTIST) Magnesium 1.4 (L) 1.8 - 2.4 mg/dL [facility] MAIN-STATION 4 Specimen Blood Performing Organization Address [facility] Phone Number [facility] 4 * LIVER PROFILE (09/28/2017 3:35 AM OPTICAL SCIENTIST) T Protein 6.9 6.4 - 8.2 g/dL [facility] 4 Albumin 2.6 (L) 3.4 - 5.0 g/dL [facility] MAIN-STATION 4 T Bilirubin 0.3 0.2 - 1.0 mg/dL [facility] 4 Alk Phos 179 (H) 45 - 117 U/L [facility] 4 AST 26 15 - 37 U/L [facility] 4 ALT 21 12 - 78 U/L [facility] 4 D Bilirubin 0.1 0.0 - 0.2 mg/dL [facility] 4 Specimen Blood Performing Organization Address [facility] Phone Number [employer] [facility] 4 * THYROID PEROXIDASE (TPO) AB (09/27/2017 5:07 PM OPTICAL SCIENTIST) Thy Perox (TPO) 120 LABORATORY Ab Reference range: 0 to 34 CORPORATION OF Unit: IU/mL NICOLETTE (H) Performing Organization Address [facility] Phone Number [employer] LABORATORY CORPOR[facility] OF [address] [place] [address] NICOLETTE 145 * THYROID STIM IMMUN (09/27/2017 5:07 PM OPTICAL SCIENTIST) Thyroid Stim (note) LABORATORY Immun RESULT: 2.80 High [employer]POR[employer] OF UNIT: IU/L NICOLETTE REFERENCE INTERVAL: 0.00-0.55 Specimen Blood Performing Organization Address [facility] Phone Number [employer] LABORATORY [facility]POR[facility] OF [address] [place] [address] NICOLETTE 145 * TOTAL T3 (09/27/2017 5:07 PM OPTICAL SCIENTIST) Total T3 >800 (HH) 87 - 178 ng/dL [facility] MAIN-STATION 4 Performing Organization Address [facility] Phone Number [employer] BT MAIN-STATION 4 * U/S THYROID/NECK (09/27/2017 4:27 PM OPTICAL SCIENTIST) Impressions Performed At IMPRESSION: SMS Enlarged goiter [...] Interface, Rad/Mammog In - 09/27/2017 4:36 PM OPTICAL SCIENTIST EXAM: US THYROID DATE: 09/27/2017 4:30 PM [...] Number SMS * U/S ABDOMEN (09/27/2017 12:18 PM OPTICAL SCIENTIST) Addenda Addendum by Ha Joseph MD on [...] Queen at 12:20 PM on 09/27/2017. This [facility] radiology report is a preliminary resident dictation [...] Interface, Rad/Mammog In - 09/27/2017 12:37 PM OPTICAL SCIENTIST EXAM: US ABDOMEN COMPLETE DATE: 09/27/2017 12:18 [...] SMS * URINE DRUG SCREEN (09/27/2017 11:01 AM OPTICAL SCIENTIST) Amphetamine Negative NEG [facility] Comment: MAIN-STATION 1 Calibrated Standard: D-Methamphetamine Positive if urine level >dh=9886 ng/mL Barbiturate Negative NEG [facility] Comment: MAIN-STATION 1 Calibrated Standard: Secobarbital Positive if urine level is >km=150 ng/mL Benzodiazepine Negative NEG [facility] Comment: MAIN-STATION 1 Calibrated Standard: Lormethazepam Positive if urine level is >az=055 ng/mL Cannabinoid Negative NEG [facility] Comment: MAIN-STATION 1 Calibrated Standard: 11 nor-delta(9)-THC carboxylic a Positive if urine level >or=50 Cocaine Negative NEG [facility] Comment: MAIN-STATION 1 Calibrated Standard: Benzoylecgonine Positive if urine level >lh=637 Opiate, Ur Positive (A) NEG [facility] Comment: MAIN-STATION 1 Calibrated Standard: Morphine Positive if urine level >xs=739 PCP Negative NEG [facility] Comment: MAIN-STATION 1 Calibrated Standard: Phencyclidine Positive if urine level >or=25 Urine Toxicology Screen results are to be used only for Medical purposes. Specimen Urine Performing Organization Address [facility] Phone Number MIS[facility] 1 * COMPREHENSIVE METABOLIC PANEL(DBIL NOT INCLUDED) (09/27/2017 10:04 AM OPTICAL SCIENTIST) Albumin 2.7 (L) 3.4 - 5.0 g/dL [facility] MA[facility] 2 Calcium 8.3 (L) 8.50 - 10.20 mg/dL [facility] MA[facility] 2 CO2 25 21 - 32 mmol/L [facility] MA[facility] 2 Chloride 104 98 - 107 mmol/L [facility] MA[facility] 2 Creatinine 0.23 (L) 0.60 - 1.30 mg/dL [facility] MA[facility] 2 Glucose 124 (H) 70 - 99 mg/dL [facility] MAIN[facility] 2 Alk Phos 217 (H) 45 - 117 U/L [facility] MA[facility] 2 Potassium 3.3 (L) 3.50 - 5.10 mmol/L [facility] 2 Sodium 137 136 - 145 mmol/L [facility] COMPLEX MAIN-STATION 2 ALT 22 12 - 78 U/L [facility] MAIN-STATION 2 AST 31 15 - 37 U/L [facility] MAIN-STATION 2 Urea Nitrogen 10 7 - 18 mg/dL [facility] MAIN-STATION 2 T Bilirubin 0.3 0.2 - 1.0 mg/dL [facility] MAIN-STATION 2 T Protein 7.2 6.4 - 8.2 g/dL [facility] MAIN-STATION 2 GFR, Estimated >60 mL/min/1.73 m2 [facility] MAIN-STATION 2 GFR, Estim, >60 mL/min/1.73 m2 [facility] Afr-Am MAIN-STATION 2 Anion Gap 8 [facility] MAIN-STATION 2 Specimen Blood Performing Organization Address [facility]/Zipcode Phone Number MISYS [facility] MAIN-STATION 2 * PT/INR/PTT (09/27/2017 10:04 AM OPTICAL SCIENTIST) PT 14.6 11.8 - 15.0 Seconds [facility] MAIN-STATION 2 INR 1.1 [facility] SUGGESTED THERAPEUTIC RANGES: MAIN-STATION 2 INR 2.0-3.0 for MODERATE INTENSITY ANTICOAGULATION INR 2.5-3.5 for HIGH INTENSITY ANTICOAGULATION PTT 34.3 23.6 - 36.4 Seconds [facility] MAIN-STATION 2 Specimen Blood Performing Organization Address [facility] Phone Number MISYS [facility] MAIN-STATION 2 * HEPATITIS PANEL (09/27/2017 10:04 AM OPTICAL SCIENTIST) HCV IgG Negative NEG BT OUTPATIENT DRAW 2 HBsAg Negative NEG BT OUTPATIENT DRAW 2 HAV, IgM Negative NEG BT OUTPATIENT DRAW 2 HBcAb, IgM Negative NEG BT OUTPATIENT DRAW 2 Specimen Blood Performing Organization Address [facility] Phone Number MISANDRES BT OUTPATIENT DRAW 2 * BEDSIDE ULTRASOUND (09/27/2017 4:05 AM OPTICAL SCIENTIST) Narrative Performed At Randy Vicente MD 11/08/2017 [...] pericardial effusion. * VBG POC (09/27/2017 2:45 AM OPTICAL SCIENTIST) Only the most recent of 2 results within the time period is included. pH, [place] POC 7.46 (H) 7.33 - 7.43 [facility] MAIN-STATION 1 pCO2, [place] POC 34.0 (L) 38.0 - 50.0 mm Hg [facility] MAIN-STATION 1 pO2, [place] POC 125 (H) 50 - 75 mm Hg [facility] MAIN-STATION 1 Base Excess, 1 mmol/L [facility] [place] POC MAIN-STATION 1 HCO3, [place] POC 24.2 22.0 - 26.0 mmol/L [facility] MAIN-STATION 1 % Sat, [place] POC 99 (H) 60 - 85 % [facility] MAIN-STATION 1 Lactic Acid, 1.66 0.4 - 2.0 mmol/L [facility] [place] POC MAIN-STATION 1 TCO2, [place] POC 25 21 - 32 mmol/L [facility] MAIN-STATION 1 Performing Organization Address [facility] Phone Number MISYS [facility] MAIN-STATION 1 * XRAY CHEST 1 VIEW (09/26/2017 11:51 PM OPTICAL SCIENTIST) Impressions Performed At IMPRESSION:No acute cardiopulmonary abnormality. [...] Interface, Rad/Mammog In - 09/27/2017 12:38 AM OPTICAL SCIENTIST EXAM: XR CHEST 1 VIEW DATE: 09/26/2017 [...] MD, 09/27/2017 12:33 AM Performing Organization Address City/State/Zipcode Phone Number SMS * BMP POC (09/26/2017 11:03 PM OPTICAL SCIENTIST) CO2 POC 22Comment: Physician Notified 21 - 32 mmol/L [facility] MAIN-STATION 1 Chloride POC 98 98 - 107 mmol/L [facility] MAIN-STATION 1 Potassium POC 4.2 3.50 - 5.10 mmol/L [facility] MAIN-STATION 1 Sodium POC 137 136 - 145 mmol/L [facility] MAIN-STATION 1 Glucose POC 193 (H) 74 - 106 mg/dL [facility] MAIN-STATION 1 Urea Nitrogen 12 7 - 18 mg/dL [facility] POC MAIN-STATION 1 Creatinine POC <0.2 (L) 0.6 - 1.3 mg/dL [facility] MAIN-STATION 1 Calcium Ionized 1.15 1.15 - 1.29 mmol/L [facility] POC MAIN-STATION 1 Hemoglobin POC 12.6 12.0 - 16.0 g/dL [facility] MAIN-STATION 1 Hematocrit POC 37.0 37.0 - 47.0 % [facility] MAIN-STATION 1 GFR, Estimated Unable to calculate, mL/min/1.73 m2 [facility] parameters incomplete MAIN-STATION 1 GFR, Estim, Unable to calculate, mL/min/1.73 m2 [facility] Afr-Am parameters incomplete MAIN-STATION 1 Performing Organization Address [facility] Phone Number MISYS LB MAIN-STATION 1 * TSH (09/26/2017 11:00 PM OPTICAL SCIENTIST) Only the most recent of 2 results within the time period is included. TSH <0.01 (L) 0.45 - 5.33 uIU/mL BT MAIN-STATION 4 Specimen Blood Performing Organization Address [facility] Phone Number MISYS BT MAIN-STATION 4 * FREE T4 (09/26/2017 11:00 PM OPTICAL SCIENTIST) Only the most recent of 2 results within the time period is included. Free T4 >6.00 (H) 0.61 - 1.12 ng/dl [facility] MAIN-STATION Comment: 2 females: 1st Trimester-0.52-1.10 ng/dL 2nd Trimester=0.45-0.99 ng/dL 3rd Trimester=0.48-0.95 ng/dL Specimen Blood Performing Organization Address [facility] Phone Number MISYS BT MAIN-STATION 2 * UA CHEMISTRIES (09/26/2017 11:00 PM OPTICAL SCIENTIST) Only the most recent of 2 results within the time period is included. Color Yellow [facility] MAIN-STATION 2 Clarity Cloudy [facility] MAIN-STATION 2 Spec [place] 1.020 1.001 - 1.035 [facility] MAIN-STATION 2 [...] MAIN-STATION 2 Specimen Urine Performing Organization Address [facility] Phone Number NABEEL [facility] MAIN-STATION 2 * URINE CULTURE (09/26/2017 11:00 PM OPTICAL SCIENTIST) Only the most recent of 2 results within the time period is included. Spec Clean catch urine [facility] OUTPATIENT Description DRAW 3 Order Comments None [facility] OUTPATIENT DRAW 3 Culture No growth 2 days BT MICROBIOLOGY Report Status Final 09/29/2017 [facility] MICROBIOLOGY Specimen Urine clean catch - CLEAN CATCH URINE Performing Organization Address [facility] Phone Number MISANDRES LB OUTPATIENT DRAW 3 BT MICROBIOLOGY * BLOOD CULTURE (09/26/2017 11:00 PM OPTICAL SCIENTIST) Only the most recent of 2 results within the time period is included. Spec Blood [facility] OUTPATIENT Description DRAW 3 Order Comments None [facility] OUTPATIENT DRAW 3 Culture No growth 5 days [facility] MICROBIOLOGY Report Status Final 10/02/2017 [facility] MICROBIOLOGY Specimen Blood bag - BLOOD Performing Organization Address [facility] Phone Number NABEEL [facility] OUTPATIENT DRAW 3 [facility] MICROBIOLOGY * 12 LEAD EKG (09/26/2017 9:58 PM OPTICAL SCIENTIST) 12 LEAD EKG FOR [facility] Test Date:2017-09-26 Pat Name: CHIKA BOJORQUEZ Department: Room: Gender: F Distiller: [id number] :[id number] 10-26 Requested By: Order Number: R alice ZAMORA: James BRIGHT Measurements Intervals [place] Rate: 135 P: 52 NV: 164 QRS: 27 QRSD: 81 T:56 QT: 291 QTc:437 Interpretive Statements SINUS TACHYCARDIA POSSIBLE LEFT ATRIAL ENLARGEMENT Poor anterior R wave progression Technically Poor Tracing affects interpretation Abnormal ECG Electronically Signed On 09-27-17 07:49:15 OPTICAL SCIENTIST by James BRIGHT Performing Organization Address City/[facility] Phone Number SMS * U/S PELVIS NON-OB (09/24/2017 12:20 PM OPTICAL SCIENTIST) Impressions Performed At IMPRESSION: [facility] 1.Large central fibroid with likely a submucosal [...] Interface, Rad/Mammog In - 09/24/2017 1:39 PM OPTICAL SCIENTIST EXAM: US PELVIS TRANSABDOMINAL EXAM: US PELVIS [...] PM Performing Organization Address City/State/Zipcode Phone Number [facility] * U/S TRANSVAGINAL (09/24/2017 12:20 PM OPTICAL SCIENTIST) Impressions Performed At IMPRESSION: [facility] 1.Large central [...] Interface, Rad/Mammog In - 09/24/2017 1:39 PM OPTICAL SCIENTIST EXAM: US PELVIS TRANSABDOMINAL EXAM: US PELVIS [...] MD, 09/24/2017 1:34 PM Performing Organization Address [facility] Phone Number SMS * SYPHILIS SCREEN FOR INFECTION (09/23/2017 2:25 PM OPTICAL SCIENTIST) Treponemal Ab Negative BT DIAGNOSTIC IMMUNOLOGY Final Report Negative [facility] DIAGNOSTIC IMMUNOLOGY Performing Organization Address [facility] Phone Number MISYS BT DIAGNOSTIC IMMUNOLOGY * HEMOGLOBIN A1C (09/23/2017 2:25 PM OPTICAL SCIENTIST) Hemoglobin A1c 8.8 (H) 4.3 - 6.1 % J MAIN-STATION 1 Est Average 205.9 mg/dL [facility] Gluc MAIN-STATION 1 Specimen Blood Performing Organization Address [facility] Phone Number MISYS [facility] MAIN-STATION 1 * HIV-1/HIV-2 DIAGNOSTIC/SYMPTOMATIC (09/23/2017 2:25 PM OPTICAL SCIENTIST) HIV-1/HIV-2 Negative NEG [facility] MAIN-STATION 2 Performing Organization Address [facility] Phone Number [facility] MAIN-STATION 2 * CHLAM/GC DNA AMPLI (09/23/2017 1:33 PM OPTICAL SCIENTIST) Chlamydia trach Negative NEG BT DIAGNOSTIC IMMUNOLOGY N gonorrhoeae Negative NEG BT DIAGNOSTIC Comment: IMMUNOLOGY This test utilizes [employer] Aptima Combo 2 Assay for target amplification of rRNA for the qualitative detection of Chlamydia trachomatis and Neisseria gonorrhea. Spec Endovervical [facility] Description MAIN-STATION 4 Specimen Other (Specify in Comments) - Endocervical Swab Performing Organization Address [facility] Phone Number [facility] DIAGNOSTIC IMMUNOLOGY [facility] MAIN-STATION 4 * HPV HIGH-RISK (09/23/2017 1:30 PM OPTICAL SCIENTIST) HPV High Risk Negative NEG BT DIAGNOSTIC Comment: IMMUNOLOGY The APTIMA HPV Assay is an in vitro nucleic acid amplification test for the qualitative detection of E6/E7 viral messenger RNA (mRNA) from 14 high-risk types of human papillomavirus (HPV) in cervical specimens. The high-risk HPV types detected by the assay include: 16,18,31,33,35,39,45,51,52,56, 58,59,66, and 68. CoPath Spec [id number] BT MOLECULAR Number PATHOLOGY Performing Organization Address [facility] Phone Number [facility] DIAGNOSTIC IMMUNOLOGY BT MOLECULAR PATHOLOGY * [facility] CYTOLOGY PATHOLOGY (09/23/2017 1:30 PM OPTICAL SCIENTIST) LB Cytology (note) MISYS Name CHIKA BOJORQUEZ Date of 1975 Hospital Number [id number] [facility] CYTOPATHOLOGY Collected:09/23/2017 13:30 Received: [...] analyzed by the automated ThinPrep Imaging System, [employer], [place], [place]. Performing Organization Address City/[facility] Phone Number MISYS * WET MOUNT (09/23/2017 1:30 PM OPTICAL SCIENTIST) Spec Vaginal [facility] Description MICROBIOLOGY Order Comments None [facility] MICROBIOLOGY Exam WBC's seen [facility] Epithelial cells MICROBIOLOGY Yeast No Clue cells seen No Trichomonas seen Bacteria present Report Status Final 09/23/2017 [facility] MICROBIOLOGY Specimen Genital, vaginal - Vaginal Performing Organization Address [facility] Phone Number MISYS LB MICROBIOLOGY * CLARISSA STAIN (09/23/2017 1:30 PM OPTICAL SCIENTIST) Spec Vaginal [facility] Description MICROBIOLOGY Order Comments None [facility] MICROBIOLOGY Direct Exam Hyphal elements seen [facility] MICROBIOLOGY Report Status Final 09/23/2017 [facility] MICROBIOLOGY Specimen Genital, vaginal - Vaginal Performing Organization Address [facility] Phone Number MISYS LB MICROBIOLOGY after 09/16/2017 Insurance Type Payer Benefit Subscriber ID Effective Phone Address Plan / Dates Group ClassBadges xxxxxxxxxx 2017-P [phone] [facility] [id number] [place] [address] (Work) Advance Directives For more information, please contact: [address] [address] Date Inactivated Comments Code Status Date Activated 09/30/2017 5:20 PM Full Code 09/27/2017 9:00 AM
[2019-02-11] MEDS ORDERED: PANTOPRAZOLE 40 MG 10ML VIAL IV STA (17:35)
[2019-02-11] MEDS ORDERED: ONDANSETRON HCL INJ 2MG/ML 2ML 2 MG/ML VIAL IM STA (17:35)
[2019-02-11] MEDS ORDERED: SODIUM CHLORIDE 0.9% 1000ML 1,000 ML IV STA ×2 (17:35)
[2019-02-11] MEDS ORDERED: DEXTROSE 50% SYRINGE 50 ML IV PRN ×2 (17:45)
[2019-02-11] MEDS ORDERED: TOBRAMYCIN 40 MG/ML 2ML VIAL IV ONE (17:45)
[2019-02-11] MEDS ORDERED: MORPHINE SULFATE 2 MG/ML SYR 1ML IV ONE (17:45)
[2019-02-11] MEDS ORDERED: AZTREONAM 1 GM/NS 50 ML 50 ML IV ONE (18:00)
--- NOTE | 2019-02-11 18:28 | Diagnostic Imaging Report ---
EXAM: CT Abdomen and Pelvis WITHOUT contrast INDICATION: Kidney stent placement. Stone protocol. Left flank pain. ^STONE PROTOCOL ^[id number] ^1800 ^Y COMPARISON: August 31, 2017 TECHNIQUE: Abdomen and pelvis were scanned utilizing a multidetector helical scanner from the lung base to the pubic symphysis without administration of IV contrast. Absence of intravenous contrast decreases sensitivity for detection of focal lesions and vascular pathology. Coronal and sagittal reformations were obtained. Routine protocol was performed. IV CONTRAST: None ORAL CONTRAST: Water COMPLICATIONS: None RADIATION DOSE: Total DLP: 177 mGy*cm Estimated effective dose: (DLP x 0.015 x size factor) mSv CTDIvol has been reviewed. It is below the limits set by the Radiation Protocol Committee (RPC). Dose modulation, iterative reconstruction, and/or weight based adjustment of the mA/kV was utilized to reduce the radiation dose to as low as reasonably achievable. FINDINGS: LINES and TUBES: Left ureteral stent with proximal tip coiled in the proximal left ureter and distal tip coiled in the lumen of the urinary bladder. There is now foci of air along the course of the catheter and within the lumen of the urinary bladder and upper left renal collecting system. There is new left perinephric fat stranding. The previously seen left hydronephrosis is slightly worse. LOWER THORAX: Unremarkable HEPATOBILIARY: No focal hepatic lesions. No biliary ductal dilation. GALLBLADDER: No radio-opaque stones or sludge. No wall thickening. SPLEEN: No splenomegaly. PANCREAS: No focal masses or ductal dilatation. ADRENALS: No adrenal nodules KIDNEYS/URETERS: Left ureteral stent with proximal tip coiled in the proximal left ureter and distal tip coiled in the lumen of the urinary bladder. There is now foci of air along the course of the catheter and within the lumen of the urinary bladder and upper left renal collecting system. There is new left perinephric fat stranding. The previously seen left hydronephrosis is slightly worse. GI TRACT: No abnormal distention, wall thickening, or evidence of bowel obstruction. Appendix is normal. PELVIC ORGANS/BLADDER: Enlarged multi fibroid uterus LYMPH NODES: No lymphadenopathy. VESSELS: Unremarkable. PERITONEUM / RETROPERITONEUM: No free air or fluid. BONES: Osteopenia. SOFT TISSUES: Unremarkable. IMPRESSION: Left ureteral stent with proximal tip coiled in the proximal left ureter and distal tip coiled in the lumen of the urinary bladder. There is now foci of air along the course of the catheter and within the lumen of the urinary bladder and upper left renal collecting system. There is new left perinephric fat stranding. The previously seen left hydronephrosis is slightly worse. Signed by: Dr. David Donaldson M.D. on 02/11/2019 6:24 PM
[2019-02-11] MEDS ORDERED: MORPHINE SULFATE INJ 4 MG/ML INJ 1ML IV ONE (18:30)
[2019-02-11] MEDS ORDERED: SODIUM CHLORIDE 0.9% IV ONE (18:30)
[2019-02-11] MEDS ORDERED: TOBRAMYCIN IV ONE (18:30)
--- NOTE | 2019-02-11 18:49 | Diagnostic Imaging Report ---
EXAMINATION: CHEST SINGLE (PORTABLE) INDICATION: Uterine mass. ^ERMD ORDER ^[id number] ^1810 ^Y COMPARISON: 10/01/2018 FINDINGS: TUBES and LINES: None. LUNGS: Lungs are well inflated. Lungs are clear. There is no evidence of pneumonia or pulmonary edema. PLEURA: No pleural effusion or pneumothorax. HEART AND MEDIASTINUM: The cardiomediastinal silhouette is unremarkable. BONES AND SOFT TISSUES: No acute osseous lesion. Soft tissues are unremarkable. UPPER ABDOMEN: No free air under the diaphragm. IMPRESSION: No acute thoracic abnormality. Signed by: Dr. David Donaldson M.D. on 02/11/2019 6:46 PM
[2019-02-11 18:50] LABS: BILIRUBIN,URINE NEGATIVE (NEGATIVE); CLARITY,URINE SL CLOUDY (CLEAR); COLOR,URINE YELLOW (YELLOW); KETONES,URINE 1+ (NEGATIVE); LEUKOCYTE ESTERASE ,URINE MODERATE (NEGATIVE); NITRITE,URINE NEGATIVE (NEGATIVE); PROTEIN,URINE DIPSTICK 1+ (NEGATIVE); URINE UROBILINOGEN 0.2 mg/dL (0.2 - 1)
--- NOTE | 2019-02-11 18:51 | Diagnostic Imaging Report ---
Exam: KUB. Clinical History: Kidney stent Comparison: August 31, 2017. February 11, 2019 Findings: Frontal view of the abdomen demonstrates a nonobstructive bowel gas pattern with moderate retained stool. There are no suspicious calcifications.Left ureteral catheter. Impression: Left ureteral catheter with proximal tip located more medial than would be expected. This is consistent with CT scan findings with left ureteral stent proximal tip coiled in the proximal left ureter. Signed by: Dr. David Donaldson M.D. on 02/11/2019 6:48 PM
--- OUTSIDE RECORDS SUMMARY | 2019-02-11 18:52 | XMS REPORT | Continuity of Care Document ---
Author Author [employer] Address Unknown Phone Unavailable Care Team Providers Care Logistics Lead Name Role Phone [employer] Unavailable Unavailable Problems Problem Status Onset Date Classification Date Reported Comments Source PRBC Active 08/29/2018 [facility] K85.90 - ACUTE PANCREATITIS WITHOUT NEC Active 08/28/2018 AAKASH Crow Type 2 diabetes mellitus with ketoacidosis without coma 11/07/2017 02/05/2018 [facility] PELVIC PAIN Active 10/29/2017 [facility] Complicated UTI Active 09/27/2017 09/18/2018 [facility] Recurrent UTI Active 09/23/2017 09/18/2018 [facility] Uterine leiomyoma Active 09/23/2017 09/18/2018 [facility] Pelvic pain Active 09/23/2017 09/18/2018 [facility] Essential hypertension Active 09/23/2017 09/18/2018 [facility] Type 2 diabetes mellitus with complication, with long-term current use of insulin Active 09/23/2017 09/18/2018 [facility] Hyperthyroidism Active 09/23/2017 09/18/2018 [facility] ABD PAIN Active 03/09/2017 [facility] ABDOMINAL PAIN, SINUS TACHYCARDIA Active 03/09/2017 [facility] PYELONEPHRITIS, HYDRONEPHROSIS Active 12/27/2016 [facility] PYELONEPHRITIS, THYROTOXICOSIS, HYDROURE Active 12/27/2016 [facility] PANCREATIC PSEUDOCYSTS Active 09/10/2016 [facility] Severe malnutrition Active 08/27/2016 Problem 10/02/2018 [facility] AAKASH [place],[facility] PANCREATIC INFECTED PSAUDOCYSTS ABENEXAL Active 08/23/2016 [facility] LARGE ADNEXAL MASS Active 08/17/2016 [facility] MRSA1, 2 Active 08/06/2016 Problem 01/01/2017 Cyst fluid, 08/06/2016 Problem added by Discern Expert. [facility] MRSA2, 3 Active 08/06/2016 Problem 10/02/2018 Cyst fluid, 08/06/2016 Problem added by Discern Expert. [facility], AAKASH Crow,[facility] PANCREATITIS Active 07/05/2016 [facility] UPPER ABD PAIN Active 06/15/2016 [facility] THYROID STORM, ACUTE PANCREATITIS Active 06/15/2016 [facility] Goiter Active 07/29/2004 Problem 10/02/2018 [facility], AAKASH Crow,[facility] Gallbladder disease Resolved Problem 01/01/2017 [facility] Diabetes Active Problem 10/02/2018 [facility], AAKASH [place],[facility] Heartburn Resolved Problem 10/02/2018 [facility], AAKASH [place],[facility] Hypomagnesemia Active Problem 10/02/2018 [facility], AAKASH Crow,[facility] Hypophosphatemia Active Problem 10/02/2018 [facility], AAKASH [place],[facility] Gallbladder disease1 Active Problem 10/02/2018 Stones removed Jun 2017 [facility], AAKASH [place],[facility] Thyrotoxicosis, unspecified with thyrotoxic crisis or storm 02/05/2018 [facility] Unspecified abdominal pain 02/05/2018 [facility] Common bile duct dilation Active 09/18/2018 [facility] History of pancreatitis Active 09/18/2018 [facility] Microcytic anemia Active 09/18/2018 [facility] Hydroureteronephrosis Active 09/18/2018 [facility] NO SHOW ENCOUNTER Active 09/18/2018 [facility] Submucous leiomyoma of uterus Active 09/18/2018 [facility] Iron deficiency anemia, unspecified iron deficiency anemia type Active 09/18/2018 [facility] Uterine leiomyoma, unspecified location Active 09/18/2018 [facility] Tachycardia Active 09/18/2018 [facility] Yeast infection of the vagina Active 09/18/2018 [facility] DKA Active Problem 04/20/2018 [facility] Pain due to ureteral stent Active Problem 04/20/2018 [facility] Pyelonephritis Active Problem 04/20/2018 [facility] UTI Active Problem 04/20/2018 [facility] THYROTOXICOSIS, UNSPECIFIED WITH THYROTO Active [facility] ACUTE PANCREATITIS WITHOUT NECROSIS OR I Active [facility] ILLNESS, UNSPECIFIED Active [facility] OTHER SPECIFIED NONINFLAMMATORY DISORDER Active [facility] OTHER SPECIFIED CONGENITAL DEFORMITIES Active [facility] IRRITABLE BOWEL SYNDROME WITHOUT DIARRHE Active [facility] PSEUDOCYST OF PANCREAS Active [facility] TUBULO-INTERSTITIAL NEPHRITIS, NOT SPCF Active [facility] HYDRONEPHROSIS W URETERAL STRICTURE, NEC Active [facility] ACUTE PYELONEPHRITIS Active [facility] THYROTOXICOSIS, UNSP WITHOUT THYROTOXIC Active [facility] UNSPECIFIED ABDOMINAL PAIN Active [facility] TACHYCARDIA, UNSPECIFIED Active [facility] Medications Medication Details Route Status Patient Instructions Ordering Provider Order Date Source Benadryl 25 mg, 0.5 mL, Route: IV, Drug form: INJ, On Adm, Start date: 09/02/18 12:00:00 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, Stop date: 09/02/18 21:00:00 CSTNotes: (Same as: Benadryl) Inactive 09/02/2018 [facility] Tylenol 650 mg, 2 tab, Route: PO, Drug form: TAB, On Adm, Start date: 09/02/18 12:00:00 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, Stop date: 09/02/18 21:00:00 CSTNotes: Do not exceed 4 gm/day. (Same as: Tylenol) Inactive 09/02/2018 [facility] Benadryl 25 mg, 0.5 mL, Route: IV, Drug form: INJ, On Adm, Start date: 09/01/18 8:23:00 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, Stop date: 09/02/18 23:00:00 CSTNotes: (Same as: Benadryl) Inactive 09/01/2018 [facility] Tylenol 650 mg, 2 tab, Route: PO, Drug form: TAB, On Adm, Start date: 09/01/18 8:22:00 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, Stop date: 09/02/18 23:00:00 CSTNotes: Do not exceed 4 gm/day. (Same as: Tylenol) Inactive 09/01/2018 [facility] Dextrose 5% with 0.45% NaCl IV 1,000 mL 1,000 mL, Rate: 100 ml/hr, Infuse over: 10 hr, Route: IV, Dosing Weight 46.364 kg, Total Volume: 1,000, Start date: 10/29/17 23:57:00 CDT, Duration: 30 day, Stop date: 11/28/17 23:56:00 CDT, 1.42, m2 No Longer Active 10/30/2017 [facility] Dextrose 50% Syringe 25 gm, Route: IVP, Dosing Weight 46.364, kg, ONCE, STAT, Start date: 10/29/17 23:56:00 CDT, Stop date: 10/29/17 23:56:00 CDT No Longer Active 10/30/2017 [facility] 3 ML insulin detemir 100 UNT/ML Prefilled Syringe [Levemir] 30 unit, SUB-Q, Bedtime, 0 Refill(s) Active 10/30/2017 [facility] 3 ML Insulin, Aspart, Human 100 UNT/ML Pen Injector [NovoLog] 15 unit, SUB-Q, TID-Before Meals, 0 Refill(s) Active 10/30/2017 [facility] propranolol 20 mg oral tablet 20 mg=1 tab, PO, BID, 0 Refill(s) Active 10/30/2017 [facility] Magnesium Sulfate 1 gm, 100 mL, Route: IVPB, Drug form: INJ, PRN, Dosing Weight 46.364, kg, PRN Abnormal Lab Result, Start date: 10/29/17 21:33:00 CDT, Duration: 30 day, Stop date: 11/28/17 21:32:00 CDTNotes: WASTE: F/P - Sink; E - Municipal Trash Bin No Longer Active 10/30/2017 [facility] Potassium Chloride 10 mEq, 100 mL, Route: IVPB, Drug form: INJ, PRN, Dosing Weight 46.364, kg, PRN Abnormal Lab Result, Via peripheral line, Start date: 10/29/17 21:33:00 CDT, Duration: 30 day, Stop date: 11/28/17 21:32:00 CDTNotes: Infuse at a rate of 10 mEq/hr. (Same as: KCL) No Longer Active 10/30/2017 [facility] potassium phosphate 15 mmol, 5 mL, Route: IVPB, PRN, Dosing Weight 46.364, kg, PRN Abnormal Lab Result, Start date: 10/29/17 21:33:00 CDT, Duration: 30 day, Stop date: 11/28/17 21:32:00 CDTNotes: (Same as: K Phosphate.) 1 mMol phoshate has 1.47 mEq potassium Infuse over 4 hours No Longer Active 10/30/2017 [facility] Dextrose 50% Syringe 12.5 gm, 25 mL, Route: IVP, Drug Form: INJ, Dosing Weight 46.364, kg, PRN, PRN Blood Glucose Results, Start date: 10/29/17 21:33:00 CDT, Duration: 30 day, Stop date: 11/28/17 21:32:00 CDT No Longer Active 10/30/2017 [facility] Glucagon 1 mg, Route: IM, Drug form: PDR/INJ, PRN, Dosing Weight 46.364, kg, PRN Blood Glucose Results, Start date: 10/29/17 21:33:00 CDT, Duration: 30 day, Stop date: 11/28/17 21:32:00 CDT No Longer Active 10/30/2017 [facility] Insulin (regular) Titrate IV additive 100 unit [...] (Do not shake) No Longer Active 10/30/2017 [facility] D5NS 1,000 mL 1,000 mL, Rate: 250 ml/hr, Infuse over: 4 hr, Route: IV, Dosing Weight 46.364 kg, Total Volume: 1,000, Start date: 10/29/17 21:33:00 CDT, Duration: 30 day, Stop date: 11/28/17 21:32:00 CDT, 1.42, m2 No Longer Active 10/30/2017 [facility] Sodium Chloride 0.9% IV 1,000 mL 1,000 mL, Rate: 250 ml/hr, Infuse over: 4 hr, Route: IV, Dosing Weight 46.364 kg, Total Volume: 1,000, When Finger stick blood glucose values remain ABOVE 250 mg/dL administer until BG is less than 250 mg/dL., Start date: 10/29/17 21:33:00 CDT, Durati... No Longer Active 10/30/2017 [facility] Sodium Chloride 0.9% (Bolus) IV 1,000 mL, 1,000 ml/hr, Infuse Over: 1 hr, Route: IV, ONCE, Priority: STAT, Dosing Weight 46.364 kg, Start date: 10/29/17 21:27:00 CDT, Stop date: 10/29/17 21:27:00 CDT Inactive 10/30/2017 [facility] Zofran 4 mg, Route: IVP, Drug form: INJ, ONCE, Dosing Weight 46.364, kg, Priority: STAT, Start date: 10/29/17 21:27:00 CDT, Stop date: 10/29/17 21:27:00 CDT Inactive 10/30/2017 [facility] Morphine 4 mg, Route: IVP, ONCE, Dosing Weight 46.364, kg, Priority: STAT, Start date: 10/29/17 21:27:00 CDT, Stop date: 10/29/17 21:27:00 CDT Inactive 10/30/2017 [facility] esmolol 25,000 microgram, Route: IVP, ONCE, Dosing Weight 46.364, kg, Priority: STAT, Start date: 10/29/17 21:16:00 CDT, Stop date: 10/29/17 21:16:00 CDT Inactive 10/30/2017 [facility] Sodium Chloride 0.9% (Bolus) IV 1,000 mL, 1,000 ml/hr, Infuse Over: 1 hr, Route: IV, ONCE, Priority: STAT, Dosing Weight 46.364 kg, Start date: 10/29/17 21:16:00 CDT, Stop date: 10/29/17 21:16:00 CDT Inactive 10/30/2017 [facility] esmolol 25,000 microgram, Route: IVP, ONCE, Dosing Weight 46.364, kg, Priority: STAT, Start date: 10/29/17 21:15:00 CDT, Stop date: 10/29/17 21:15:00 CDT Inactive 10/30/2017 [facility] Methimazole 30 mg, Route: PO, ONCE, Dosing Weight 46.364, kg, Start date: 10/29/17 20:57:00 CDT, Stop date: 10/29/17 20:57:00 CDT Inactive 10/30/2017 [facility] Saline Flush 0.9% 10 mL, Route: IVP, Drug Form: INJ, Dosing Weight 46.364, kg, PRN, PRN Line Flush, Start date: 10/29/17 20:14:00 CDT, Duration: 30 day, Stop date: 11/28/17 20:13:00 CDTNotes: (Same as: BD Posiflush) No Longer Active 10/30/2017 [facility] ferrous sulfate 325 mg (65 mg iron) tablet Take 1 tablet by mouth daily for 90 days. Oral No Longer Active 10/01/2017 [facility] methIMAzole (TAPAZOLE) 5 mg tablet Take 15 mg by mouth 3 times daily. Oral No Longer Active 09/30/2017 [facility] Metoprolol-Hydrochlorothiazide 100-25 mg per tablet Take 1 tablet by mouth daily. Oral No Longer Active 09/30/2017 [facility] metoprolol tartrate (LOPRESSOR) 25 mg tablet Take 25 mg by mouth 2 times daily. Oral No Longer Active 09/30/2017 [facility] sulfamethoxazole-trimethoprim (BACTRIM DS) 800-160 mg per tablet Take 1 tablet by mouth 2 times daily for 4 days. Oral Inactive 09/30/2017 [facility] methIMAzole (TAPAZOLE) 10 mg tablet Take 2 tablets by mouth 3 times daily for 90 days. Oral No Longer Active 09/30/2017 [facility] propranolol (INDERAL) 10 mg tablet Take 3 tablets by mouth 3 times daily for 90 days. Oral Inactive 09/30/2017 [facility] traMADol (ULTRAM) 50 mg tablet Take 2 tablets by mouth every 6 hours as needed for up to 7 days for Pain. Oral No Longer Active 09/30/2017 [facility] fluconazole (DIFLUCAN) 150 mg tablet Take 1 tablet by mouth once for 1 dose. Oral No Longer Active 09/25/2017 [facility] ibuprofen (MOTRIN) 800 mg tablet Take 1 tablet by mouth every 8 hours as needed for Pain. Oral Active 09/23/2017 [facility] traMADol (ULTRAM) 50 mg tablet Take 1 tablet by mouth every 8 hours as needed for Pain. Oral No Longer Active 09/23/2017 [facility] Acetaminophen With Codeine (Tylenol With Codeine #3 Tablet) 1 Each Tablet Every 4 Hours as needed for Pain Active [facility] 09/03/2017 [facility] Ferrous Sulfate 325 Mg Tablet Daily Active [facility] 09/03/2017 [facility] Nitrofurantoin Macrocrystal (Nitrofurantoin) 100 Mg Capsule Twice A Day Active [place] 09/03/2017 [facility] Propranolol Hcl 40 Mg Tablet Every 8 Hours Active [facility] 09/03/2017 [facility] Insulin Detemir 100 Unit/Ml Pen Bedtime Active [facility] 08/03/2017 [facility] Methimazole 5 Mg Tablet Three Times A Day Active [facility] 08/03/2017 [facility] Tramadol Hcl (Ultram 50MG*) 50 Mg Tab Daily Active [facility] 08/03/2017 [facility] Ferrous Sulfate (Feosol) 325 Mg Tablet, 325 Mg Oral Daily Active [facility] 08/03/2017 [facility] Methimazole 10 Mg Tablet, 25 Mg Oral Daily Active 08/03/2017 [facility] Metoprolol Tartrate (Lopressor) 25 Mg Tab, 50 Mg Oral Twice A Day Active [facility] 08/03/2017 [facility] Metoprolol Tartrate 25 Mg Tablet, 25 Mg Oral Daily Active 08/03/2017 [facility] Insulin Aspart (Novolog) 100 Units/1 Ml Inj, Active 07/31/2017 [facility] Insulin Glargine (Lantus 3ML Pen) 100 Units/1 Ml Inj, 8 Units Subcutaneously Bedtime Active 07/31/2017 [facility] Methimazole 10 Mg Tablet, 10 Mg Oral Three Times A Day Active 07/31/2017 [facility] Metoprolol Succinate 25 Mg Tab.er.24h, 25 Mg Oral Active 07/31/2017 [facility] Propranolol Hcl 40 Mg Tablet, 40 Mg Oral Every 8 Hours Active 04/11/2017 [facility] methimazole 10 mg oral tablet 10 mg, PO, Q8H, # 90 tab, 0 Refill(s) Active 03/20/2017 [facility] Insulin Aspart 100 unit/ml - (High CD) 3 unit, SUB-Q, TID- Before Meals, Check blood sugar before breakfast, lunch, and dinner, and inject correction doses: Inject 3 unit if Sugar 150-199, Inject 6 units if Sugar 200- 249, Inject 9 units if Sugar 250-299, Inject 12 units if Sugar 300-349, In... Active 03/20/2017 [facility] Insulin Glargine 100 UNT/ML Injectable Solution 8 unit, SUB-Q, Bedtime, # 10 mL, 0 Refill(s) Active 03/20/2017 [facility] metoprolol tartrate 25 mg oral tablet 25 mg=1 tab, PO, BID, # 60 tab, 0 Refill(s) Active 03/20/2017 [facility] metoprolol tartrate 25 mg, 1 tab, Route: PO, Drug form: TAB, BID, Dosing Weight 35.5, kg, Start date: 03/16/17 17:00:00 CDT, Duration: 30 day, Stop date: 04/15/17 9:00:00 CDTNotes: (Same as: Lopressor) No Longer Active 03/16/2017 [facility] Potassium Chloride 10 mEq, 100 mL, Route: IVPB, Drug form: INJ, Q1H, Dosing Weight 35.5, kg, Total Dose=40 meq, Start date: 03/16/17 11:00:00 CDT, Duration: 4 doses or times, Stop date: 03/16/17 14:00:00 CDT, Peripheral LineNotes: Infuse at a rate of 10 mEq/hr. (Same as: KCL) Inactive 03/16/2017 [facility] potassium chloride 20 mEq oral tablet, extended release 40 mEq, 2 tab, Route: PO, Drug form: ERTAB, ONCE, Dosing Weight 35.5, kg, Start date: 03/16/17 10:11:00 CDT, Stop date: 03/16/17 10:11:00 CDTNotes: (Same as: K- Dur 20) "Do Not Crush" With food and full glass of water Inactive 03/16/2017 [facility] insulin glargine 8 unit, 0.08 mL, Route: SUB-Q, Drug form: SOLN, Bedtime, Start date: 03/15/17 21:00:00 CDT, Duration: 30 day, Stop date: 04/13/17 21:00:00 CDTNotes: (Same as: Lantus) Do not hold insulin without cont acting prescriber WASTE: F/P - Black; E - Municipal Trash Bin "single patient use only" No Longer Active 03/16/2017 [facility] sodium chloride 0.9% 1000 ml INJ 1,000 mL 1,000 mL, Rate: 125 ml/hr, Infuse over: 8 hr, Route: IV, Dosing Weight 35.5 kg, Total Volume: 1,000, Start date: 03/15/17 10:45:00 CDT, Duration: 30 day, Stop date: 04/14/17 10:44:00 CDT No Longer Active 03/15/2017 [facility] Metoprolol 5 mg, 5 mL, Route: IVP, Drug form: INJ, ONCE, Dosing Weight 35.5, kg, Start date: 03/15/17 10:45:00 CDT, Stop date: 03/15/17 10:45:00 CDTNotes: (Same as: Lopressor) Push over 2 minutes Inactive 03/15/2017 [facility] metoprolol tartrate 25 mg, 1 tab, Route: PO, Drug form: TAB, Q6H, Dosing Weight 35.5, kg, Priority: NOW, Start date: 03/15/17 10:37:00 CDT, Duration: 30 day, Stop date: 04/14/17 6:00:00 CDTNotes: (Same as: Lopressor) No Longer Active 03/15/2017 [facility] Levemir FlexPen 12 unit, Route: SUB-Q, Bedtime, Dosing Weight 35.5, kg, Start date: 03/14/17 22:52:00 CDT, Duration: 30 day, Stop date: 04/13/17 21:00:00 CDT No Longer Active 03/15/2017 [facility] insulin, isophane 5 unit, 0.05 mL, Route: [...] Expires in days from Date Inactive 03/14/2017 [facility] insulin glargine 8 unit, Route: SUB-Q, Drug form: SOLN, Bedtime, Start date: 03/14/17 0:00:00 CDT, Duration: 30 day, Stop date: 04/12/17 21:00:00 CDTNotes: (Same as: Lantus) Do not hold insulin without contacting prescriber WASTE: F/P - Black; E - Municipal Trash Bin "single patient use only" No Longer Active 03/14/2017 [facility] Insulin, Aspart, Human 5 unit, 0.05 mL, [...] Expires in days from Date Inactive 03/12/2017 [facility] Beneprotein 7 gm pkt 1 pkt, Route: PO, Drug Form: PWDR, Dosing Weight 35.5, kg, TID-Meals, Start date: 03/11/17 17:00:00 CDT, Duration: 30 day, Stop date: 04/10/17 12:00:00 CDTNotes: (Same as: Beneprotein) No Longer Active 03/11/2017 [facility] Insulin, Aspart, Human 3 unit, 0.03 mL, [...] days from Date No Longer Active 03/11/2017 [facility] Amoxicillin 875 MG / Clavulanate 125 MG Oral Tablet [Augmentin 875-mg] 1 tab, Route: PO, Drug Form: TAB, Dosing Weight 35.5, kg, Q12H, Start date: 03/11/17 9:12:00 CDT, Stop date: 03/18/17 9:00:00 CDTNotes: With food. (Same as: Augmentin 875) No Longer Active 03/11/2017 [facility] Famotidine 20 mg, 1 tab, Route: PO, Drug form: TAB, Q12H, Dosing Weight 35.5, kg, PRN Heartburn, Start date: 03/11/17 9:08:00 CDT, Duration: 30 day, Stop date: 04/10/17 9:07:00 CDTNotes: (Same as: Pepcid) No Longer Active 03/11/2017 [facility] Insulin, Aspart, Human 5 unit, 0.05 mL, [...] days from Date No Longer Active 03/11/2017 [facility] insulin, isophane 10 unit, Route: SUB-Q, Drug [...] days from Date No Longer Active 03/11/2017 [facility] Dextrose 50% Syringe 25 gm, 50 mL, Route: IVP, Drug Form: INJ, Dosing Weight 35.5, kg, PRN, PRN Blood Glucose Results, Start date: 03/11/17 9:03:00 CDT, Duration: 30 day, Stop date: 04/10/17 9:02:00 CDT No Longer Active 03/11/2017 [facility] Glucagon 1 mg, Route: IM, Drug form: PDR/INJ, PRN, Dosing Weight 35.5, kg, PRN Blood Glucose Results, Start date: 03/11/17 9:03:00 CDT, Duration: 30 day, Stop date: 04/10/17 9:02:00 CDT No Longer Active 03/11/2017 [facility] Calcium Carbonate 500 MG Chewable Tablet 500 mg, 1 tab, Route: PO, Drug form: TAB, PRN, Dosing Weight 35.5, kg, PRN Abnormal Lab Result, FOR ICU USE ONLY, Start date: 03/11/17 8:36:00 CDT, Duration: 30 day, Stop date: 04/10/17 8:35:00 CDTNotes: 500mg elemental [id number] calcium carbonate. Contains 500mg elemental calcium. (Same As: OsCal 500) No Longer Active 03/11/2017 [facility] potassium phosphate 45 mmol, 15 mL, Route: IVPB, PRN, Dosing Weight 35.5, kg, PRN Abnormal Lab Result, Start date: 03/11/17 8:36:00 CDT, Duration: 30 day, Stop date: 04/10/17 8:35:00 CDT, FOR ICU USE ONLYNotes: (Same as: K Phosphate.) 1 mMol phoshate has 1.47 mEq potassium Infuse over 4 hours No Longer Active 03/11/2017 [facility] Magnesium Oxide 800 mg, 2 tab, Route: PO, Drug form: TAB, PRN, Dosing Weight 35.5, kg, PRN Abnormal Lab Result, FOR ICU USE ONLY, Start date: 03/11/17 8:36:00 CDT, Duration: 30 day, Stop date: 04/10/17 8:35:00 CDTNo renee: (Same as: Mag-Ox 400) Magnesium oxide 539ys=451py elemental magnesium Dose=____mg magnesium oxide (___mg elemental magnesium) No Longer Active 03/11/2017 [facility] Calcium Gluconate 1 gm, 50 mL, Route: IVPB, Drug form: INJ, PRN, Dosing Weight 35.5, kg, PRN Abnormal Lab Result, Start date: 03/11/17 8:36:00 CDT, Duration: 30 day, Stop date: 04/10/17 8:35:00 CDT, FOR ICU USE ONLYNotes: WASTE: F/P - Sink; E - Municipal Trash Bin No Longer Active 03/11/2017 [facility] potassium phosphate-sodium phosphate 250 mg-280 mg-160 mg oral powder for reconstitution 2 pkt, Route: PO, Drug Form: PDR/REC, Dosing Weight 35.5, kg, PRN, PRN Abnormal Lab Result, FOR ICU USE ONLY, Start date: 03/11/17 8:36:00 CDT, Duration: 30 day, Stop date: 04/10/17 8:35:00 CDTNotes: (Same as: Phos-NaK) Each 1.5 gm pkt has 250mg phosphorous. Mix w/2.5oz water and stir. No Longer Active 03/11/2017 [facility] Magnesium Sulfate 2 gm, 50 mL, Route: IVPB, Drug form: INJ, PRN, Dosing Weight 35.5, kg, PRN Abnormal Lab Result, Start date: 03/11/17 8:36:00 CDT, Duration: 30 day, Stop date: 04/10/17 8:35:00 CDT, FOR ICU USE ONLYNotes: WASTE: F/P - Sink; E - Municipal Trash Bin No Longer Active 03/11/2017 [facility] sodium phosphate 45 mmol, 15 mL, Route: IVPB, PRN, Dosing Weight 35.5, kg, PRN Abnormal Lab Result, Start date: 03/11/17 8:36:00 CDT, Duration: 30 day, Stop date: 04/10/17 8:35:00 CDT, FOR ICU USE ONLY No Longer Active 03/11/2017 [facility] Potassium Chloride 20 mEq, 15 mL, Route: NJ, Drug form: LIQ, PRN, Dosing Weight 35.5, kg, PRN Abnormal Lab Result, Start date: 03/11/17 8:36:00 CDT, Duration: 30 day, Stop date: 04/10/17 8:35:00 CDT, FOR ICU USE ONLY No Longer Active 03/11/2017 [facility] Dextrose 50% Syringe 25 gm, 50 mL, Route: IVP, Drug Form: INJ, Dosing Weight 35.5, kg, PRN, PRN Blood Glucose Results, Start date: 03/11/17 1:31:00 CDT, Duration: 30 day, Stop date: 04/10/17 1:30:00 CDT Inactive 03/11/2017 [facility] Insulin regular 100 unit + sodium chloride [...] Trash Bin (Do not shake) Inactive 03/11/2017 [facility] Magnesium Sulfate 2 gm, 50 mL, Route: IVPB, Drug form: INJ, ONCE, Dosing Weight 35.5, kg, Start date: 03/11/17 1:25:00 CDT, Duration: 2 hr, Stop date: 03/11/17 1:25:00 CDTNotes: WASTE: F/P - Sink; E - Municipal Trash Bin Inactive 03/11/2017 [facility] Dextrose 50% Syringe 25 gm, 50 mL, Route: IVP, Drug Form: INJ, Dosing Weight 35.5, kg, PRN, PRN Blood Glucose Results, Start date: 03/10/17 16:18:00 CDT, Duration: 30 day, Stop date: 04/09/17 16:17:00 CDT No Longer Active 03/10/2017 [facility] Insulin regular 100 unit + sodium chloride [...] (Do not shake) No Longer Active 03/10/2017 [facility] Acetaminophen 325 MG / Hydrocodone Bitartrate 5 MG Oral Tablet [Douglas 5/325] 1 tab, Route: PO, Drug Form: TAB, Dosing Weight 35.5, kg, Q6H, PRN Pain Score 1-5, Start date: 03/10/17 11:55:00 CDT, Duration: 30 day, Stop date: 04/09/17 11:54:00 CDTNotes: (Same as: Douglas 325/5) Do not exceed 4gm/day of acetaminophen. No Longer Active 03/10/2017 [facility] Acetaminophen 325 MG / Hydrocodone Bitartrate 10 MG Oral Tablet [Douglas 10/325] 1 tab, Route: PO, Drug Form: TAB, Dosing Weight 35.5, kg, Q6H, PRN Pain Score 6-10, Start date: 03/10/17 11:54:00 CDT, Duration: 30 day, Stop date: 04/09/17 11:53:00 CDTNotes: Do not exceed 4gm/day of acetaminophen. (Same as: Douglas 325/10) No Longer Active 03/10/2017 [facility] Morphine 2 mg, 1 mL, Route: IVP, Drug form: SOLN, Q4H, Dosing Weight 35.5, kg, PRN Other -See Comment, Start date: 03/10/17 11:53:00 CDT, Duration: 30 day, Stop date: 04/09/17 11:52:00 CDT No Longer Active 03/10/2017 [facility] Insulin, Aspart, Human 8 unit, 0.08 mL, [...] Expires in days from Date Inactive 03/10/2017 [facility] Dextrose 50% Syringe 25 gm, 50 mL, Route: IVP, Drug Form: INJ, Dosing Weight 35.5, kg, PRN, PRN Blood Glucose Results, Start date: 03/10/17 9:51:00 CDT, Duration: 30 day, Stop date: 04/09/17 9:50:00 CDT Inactive 03/10/2017 [facility] Insulin (regular) Titrate IV additive 100 unit [...] Trash Bin (Do not shake) Inactive 03/10/2017 [facility] Glucagon 1 mg, Route: IM, Drug form: PDR/INJ, PRN, Dosing Weight 35.5, kg, PRN Blood Glucose Results, Start date: 03/10/17 9:51:00 CDT, Duration: 30 day, Stop date: 04/09/17 9:50:00 CDT Inactive 03/10/2017 [facility] potassium phosphate 30 mmol, 10 mL, Route: IVPB, PRN, Dosing Weight 35.5, kg, PRN Abnormal Lab Result, Start date: 03/10/17 9:51:00 CDT, Duration: 30 day, Stop date: 04/09/17 9:50:00 CDTNotes: (Same as: K Phosphate.) 1 mMol phoshate has 1.47 mEq potassium Infuse over 4 hours Inactive 03/10/2017 [facility] Potassium Chloride 20 mEq, 100 mL, Route: IVPB, Drug form: INJ, PRN, Dosing Weight 35.5, kg, PRN Abnormal Lab Result, Via central line, Start date: 03/10/17 9:51:00 CDT, Duration: 30 day, Stop date: 04/09/17 9:50:00 CDTNotes: (Same as: KCL) Infuse no faster than 10 mEq/hr if given peripherally. Inactive 03/10/2017 [facility] Magnesium Sulfate 1 gm, 100 mL, Route: IVPB, Drug form: INJ, PRN, Dosing Weight 35.5, kg, PRN Abnormal Lab Result, Start date: 03/10/17 9:51:00 CDT, Duration: 30 day, Stop date: 04/09/17 9:50:00 CDTNotes: WASTE: F/P - Sink; E - Municipal Trash Bin Inactive 03/10/2017 [facility] D5NS 1,000 mL 1,000 mL, Rate: 250 ml/hr, Infuse over: 4 hr, Route: IV, Dosing Weight 35.5 kg, Total Volume: 1,000, Start date: 03/10/17 9:51:00 CDT, Duration: 30 day, Stop date: 04/09/17 9:50:00 CDT Inactive 03/10/2017 [facility] Saline Flush 0.9% 10 ml, Route: IVP, Drug Form: INJ, Dosing Weight 36.364, kg, Q12H, Start date: 03/10/17 9:00:00 CDT, Duration: 30 day, Stop date: 04/08/17 21:00:00 CDTNotes: (Same as: BD Posiflush) No Longer Active 03/10/2017 [facility] Famotidine 20 mg, 2 mL, Route: IVP, Drug form: INJ, Q12H, Dosing Weight 36.364, kg, Start date: 03/10/17 9:00:00 CDT, Duration: 30 day, Stop date: 04/08/17 21:00:00 CDTNotes: (Same as: Pepcid) Can be dilute in 5-10cc NS IVP: Slow IV push over at least 2 minutes. No Longer Active 03/10/2017 [facility] Propranolol 20 mg, 1 tab, Route: PO, Drug form: TAB, TID, Dosing Weight 35.5, kg, Start date: 03/10/17 9:00:00 CDT, Duration: 30 day, Stop date: 04/08/17 17:00:00 CDTNotes: Give with food. (Same as: Inderal) No Longer Active 03/10/2017 [facility] Mupirocin 0.02 MG/MG Topical Ointment 1 appl, Route: NASAL, Q12H, Drug form: OINT, Start date: 03/10/17 9:00:00 CDT, Duration: 5 day, Stop date: 03/14/17 21:00:00 CDT No Longer Active 03/10/2017 [facility] Morphine 1 mg, 0.5 mL, Route: IVP, Drug form: SOLN, Q2H, Dosing Weight 35.5, kg, PRN Pain Score 7-10, Start date: 03/10/17 8:56:00 CDT, Duration: 30 day, Stop date: 04/09/17 8:55:00 CDT No Longer Active 03/10/2017 [facility] Methimazole 10 mg, 1 tab, Route: PO, Drug form: TAB, Q8H, Dosing Weight 35.5, kg, Start date: 03/10/17 8:00:00 CDT, Duration: 30 day, Stop date: 04/09/17 0:00:00 CDT No Longer Active 03/10/2017 [facility] Amylases 316149 UNT / Endopeptidases 41467 UNT / Lipase 42030 UNT Enteric Coated Capsule [Creon 24] 1 cap, Route: PO, Drug Form: DRC, Dosing Weight 35.5, kg, TID-Before Meals, Start date: 03/10/17 7:30:00 CDT, Duration: 30 day, Stop date: 04/08/17 16:30:00 CDTNotes: Same as: Creon DRC 24 : lipase 2 4,000 units, protease 76,000 units, amylase 120,000 units No Longer Active 03/10/2017 [facility] Insulin, Aspart, Human 4 unit, 0.04 mL, [...] Expires in days from Date Inactive 03/10/2017 [facility] Glucagon 1 mg, Route: IM, Drug form: PDR/INJ, PRN, Dosing Weight 35.5, kg, PRN Blood Glucose Results, Start date: 03/10/17 6:39:00 CDT, Duration: 30 day, Stop date: 04/09/17 6:38:00 CDT Inactive 03/10/2017 [facility] Dextrose 50% Syringe 12.5 gm, 25 mL, Route: IVP, Drug Form: INJ, Dosing Weight 35.5, kg, PRN, PRN Blood Glucose Results, Start date: 03/10/17 6:39:00 CDT, Duration: 30 day, Stop date: 04/09/17 6:38:00 CDT Inactive 03/10/2017 [facility] D5W 1/2NS 1,000 mL 1,000 mL, Rate: 250 ml/hr, Infuse over: 4 hr, Route: IV, Dosing Weight 35.5 kg, Total Volume: 1,000, Start date: 03/10/17 2:29:00 CDT, Duration: 30 day, Stop date: 04/09/17 2:28:00 CDT Inactive 03/10/2017 [facility] sodium chloride 0.45% 1000 ml INJ 1,000 mL 1,000 mL, Rate: 250 ml/hr, Infuse over: 4 hr, Route: IV, Dosing Weight 35.5 kg, Total Volume: 1,000, Start date: 03/10/17 2:29:00 CDT, Duration: 30 day, Stop date: 04/09/17 2:28:00 CDT Inactive 03/10/2017 [facility] Calcium Carbonate 500 MG Chewable Tablet 500 mg, Route: PO, PRN, Dosing Weight 36.364, kg, PRN Abnormal Lab Result, FOR ICU USE ONLY, Start date: 03/10/17 0:59:00 CDT, Duration: 30 day, Stop date: 04/09/17 0:58:00 CDT Inactive 03/10/2017 [facility] Calcium Gluconate 1 gm, Route: IVPB, PRN, Dosing Weight 36.364, kg, PRN Abnormal Lab Result, Start date: 03/10/17 0:59:00 CDT, Duration: 30 day, Stop date: 04/09/17 0:58:00 CDT, FOR ICU USE ONLY Inactive 03/10/2017 [facility] potassium phosphate 45 mmol, Route: IVPB, PRN, Dosing Weight 36.364, kg, PRN Abnormal Lab Result, Start date: 03/10/17 0:59:00 CDT, Duration: 30 day, Stop date: 04/09/17 0:58:00 CDT, FOR ICU USE ONLY Inactive 03/10/2017 [facility] Magnesium Sulfate 2 gm, Route: IVPB, PRN, Dosing Weight 36.364, kg, PRN Abnormal Lab Result, Start date: 03/10/17 0:59:00 CDT, Duration: 30 day, Stop date: 04/09/17 0:58:00 CDT, FOR ICU USE ONLY Inactive 03/10/2017 [facility] potassium phosphate-sodium phosphate 250 mg-280 mg-160 mg oral powder for reconstitution 2 pkt, Route: PO, Dosing Weight 36.364, kg, PRN, PRN Abnormal Lab Result, FOR ICU USE ONLY, Start date: 03/10/17 0:59:00 CDT, Duration: 30 day, Stop date: 04/09/17 0:58:00 CDT Inactive 03/10/2017 [facility] Magnesium Oxide 800 mg, Route: PO, PRN, Dosing Weight 36.364, kg, PRN Abnormal Lab Result, FOR ICU USE ONLY, Start date: 03/10/17 0:59:00 CDT, Duration: 30 day, Stop date: 04/09/17 0:58:00 CDT Inactive 03/10/2017 [facility] sodium phosphate 15 mmol, Route: IVPB, PRN, Dosing Weight 36.364, kg, PRN Abnormal Lab Result, Start date: 03/10/17 0:59:00 CDT, Duration: 30 day, Stop date: 04/09/17 0:58:00 CDT, FOR ICU USE ONLY Inactive 03/10/2017 [facility] Potassium Chloride 20 mEq, Route: NJ, Drug form: LIQ, PRN, Dosing Weight 36.364, kg, PRN Abnormal Lab Result, Start date: 03/10/17 0:59:00 CDT, Duration: 30 day, Stop date: 04/09/17 0:58:00 CDT, FOR ICU USE ONLY Inactive 03/10/2017 [facility] Saline Flush 0.9% 10 ml, Route: IVP, Drug Form: INJ, Dosing Weight 36.364, kg, PRN, PRN Line Flush, Start date: 03/10/17 0:59:00 CDT, Duration: 30 day, Stop date: 04/09/17 0:58:00 CDTNotes: (Same as: BD Posiflush) Inactive 03/10/2017 [facility] Nystatin 100 UNT/MG Topical Powder 1 appl, Route: TOP, PRN, Drug form: PWDR, PRN For Fungal Prophylaxis, Start date: 03/10/17 0:59:00 CDT, Duration: 30 day, Stop date: 04/09/17 0:58:00 CDTNotes: (Same as:Mycostatin, Nilstat) For external use only. No Longer Active 03/10/2017 [facility] Dextrose 50% Syringe 12.5 gm, 25 mL, Route: IVP, Drug Form: INJ, Dosing Weight 36.364, kg, PRN, PRN Blood Glucose Results, Start date: 03/10/17 0:53:00 CDT, Duration: 30 day, Stop date: 04/09/17 0:52:00 CDT Inactive 03/10/2017 [facility] Glucagon 1 mg, Route: IM, Drug form: PDR/INJ, PRN, Dosing Weight 36.364, kg, PRN Blood Glucose Results, Start date: 03/10/17 0:53:00 CDT, Duration: 30 day, Stop date: 04/09/17 0:52:00 CDT Inactive 03/10/2017 [facility] Magnesium Sulfate 1 gm, Route: IVPB, PRN, Dosing Weight 36.364, kg, PRN Abnormal Lab Result, Start date: 03/10/17 0:53:00 CDT, Duration: 30 day, Stop date: 04/09/17 0:52:00 CDT Inactive 03/10/2017 [facility] Potassium Chloride 10 mEq, Route: IVPB, PRN, Dosing Weight 36.364, kg, PRN Abnormal Lab Result, Via peripheral line, Start date: 03/10/17 0:53:00 CDT, Duration: 30 day, Stop date: 04/09/17 0:52:00 CDT Inactive 03/10/2017 [facility] potassium phosphate 30 mmol, Route: IVPB, PRN, Dosing Weight 36.364, kg, PRN Abnormal Lab Result, Start date: 03/10/17 0:53:00 CDT, Duration: 30 day, Stop date: 04/09/17 0:52:00 CDT Inactive 03/10/2017 [facility] D5NS 1,000 mL 1,000 mL, Rate: 250 ml/hr, Infuse over: 4 hr, Route: IV, Dosing Weight 36.364 kg, Total Volume: 1,000, Start date: 03/10/17 0:53:00 CDT, Duration: 30 day, Stop date: 04/09/17 0:52:00 CDT Inactive 03/10/2017 [facility] Insulin (regular) Titrate IV additive 100 unit + Sodium Chloride 0.9% IV 99 mL 99 mL, Rate: Titrate, Dosing Weight 36.364, kg, Route: IV, Total Volume: 99, Priority: Routine, Start Date: 03/10/17 0:53:00 CDT, Duration: 30 day, Stop date: 04/09/17 0:52:00 CDT, Replace Every: 24 hr Inactive 03/10/2017 [facility] Potassium Chloride 10 mEq, 100 mL, Route: IVPB, Drug form: INJ, PRN, Dosing Weight 36.364, kg, PRN Abnormal Lab Result, Via peripheral line, Start date: 03/10/17 0:52:00 CDT, Duration: 30 day, Stop date: 04/09/17 0:51:00 CDTNotes: Infuse at a rate of 10 mEq/hr. (Same as: KCL) Inactive 03/10/2017 [facility] Magnesium Sulfate 1 gm, 100 mL, Route: IVPB, Drug form: INJ, PRN, Dosing Weight 36.364, kg, PRN Abnormal Lab Result, Start date: 03/10/17 0:52:00 CDT, Duration: 30 day, Stop date: 04/09/17 0:51:00 CDTNotes: WASTE: F/P - Sink; E - Municipal Trash Bin Inactive 03/10/2017 [facility] potassium phosphate 30 mmol, 10 mL, Route: IVPB, PRN, Dosing Weight 36.364, kg, PRN Abnormal Lab Result, Start date: 03/10/17 0:52:00 CDT, Duration: 30 day, Stop date: 04/09/17 0:51:00 CDTNotes: (Same as: K Phosphate.) 1 mMol phoshate has 1.47 mEq potassium Infuse over 4 hours Inactive 03/10/2017 [facility] D5NS 1,000 mL 1,000 mL, Rate: 250 ml/hr, Infuse over: 4 hr, Route: IV, Dosing Weight 36.364 kg, Total Volume: 1,000, Start date: 03/10/17 0:52:00 CDT, Duration: 30 day, Stop date: 04/09/17 0:51:00 CDT Inactive 03/10/2017 [facility] Insulin (regular) Titrate IV additive 100 unit [...] Trash Bin (Do not shake) Inactive 03/10/2017 [facility] Dextrose 50% Syringe 12.5 gm, 25 mL, Route: IVP, Drug Form: INJ, Dosing Weight 36.364, kg, PRN, PRN Blood Glucose Results, Start date: 03/10/17 0:52:00 CDT, Duration: 30 day, Stop date: 04/09/17 0:51:00 CDT Inactive 03/10/2017 [facility] Glucagon 1 mg, Route: IM, Drug form: PDR/INJ, PRN, Dosing Weight 36.364, kg, PRN Blood Glucose Results, Start date: 03/10/17 0:52:00 CDT, Duration: 30 day, Stop date: 04/09/17 0:51:00 CDT Inactive 03/10/2017 [facility] morphine Sulfate 2 mg, 1 mL, Route: IVP, Drug form: INJ, ONCE, Dosing Weight 36.364, kg, Start date: 03/10/17 0:50:00 CDT, Stop date: 03/10/17 0:50:00 CDTNotes: (Same as:MORPhine Sulfate) Inactive 03/10/2017 [facility] Morphine 2 mg, 1 mL, Route: IVP, Drug form: SOLN, ONCE, Dosing Weight 36.364, kg, Start date: 03/10/17 0:28:00 CDT, Stop date: 03/10/17 0:28:00 CDT Inactive 03/10/2017 [facility] Enoxaparin 40 mg, 0.4 mL, Route: SUB-Q, Drug form: INJ, [id number], Dosing Weight 36.364, kg, Start date: 03/10/17 0:00:00 CDT, Duration: 30 day, Stop date: 04/08/17 0:00:00 CDTNotes: (Same as: Lovenox) No Longer Active 03/10/2017 [facility] Merrem 500 mg, Route: IVPB, ONCE, Dosing Weight 36.364, kg, Priority: STAT, Start date: 03/09/17 23:34:00 CDT, Duration: 1 doses or times, Stop date: 03/09/17 23:34:00 CDT, ABX Indication: Urinary Tract Infect ionNotes: Same as Merrem MEDICATION WASTE Product Size: 500 mg Product Wasted: ___ mg No Longer Active 03/10/2017 [facility] Metoprolol 2.5 mg, 2.5 mL, Route: IVP, Drug form: INJ, ONCE, Dosing Weight 36.364, kg, Priority: STAT, Start date: 03/09/17 20:30:00 CDT, Stop date: 03/09/17 20:30:00 CDTNotes: (Same as: Lopressor) Push over 2 minutes Inactive 03/10/2017 [facility] esmolol 2,500 mg, 250 mL, Rate: Titrate, Start Dose: 50 microgram/kg/min, Titration: 50 microgram/kg/min every 15 minutes, Goal(s): HR Notes: (Same as: Brevibloc) 10 mg/ml conc. No Longer Active 03/10/2017 [facility] Zofran 4 mg, 2 mL, Route: IVP, Drug form: INJ, ONCE, Dosing Weight 36.364, kg, Priority: STAT, Start date: 03/09/17 20:23:00 CDT, Stop date: 03/09/17 20:23:00 CDTNotes: (Same as: Zofran) MEDICATION WASTE Product Size: 4 mg Product Wasted: ___ mg No Longer Active 03/10/2017 [facility] Morphine 2 mg, 1 mL, Route: IVP, Drug form: INJ, ONCE, Dosing Weight 36.364, kg, Priority: STAT, Start date: 03/09/17 20:23:00 CDT, Stop date: 03/09/17 20:23:00 CDTNotes: (Same as:MORPhine Sulfate) Inactive 03/10/2017 [facility] NS (Bolus) IV 2,000 mL, 2,000 ml/hr, Infuse Over: 1 hr, Route: IV, 2,000, Drug form: INJ, ONCE, Priority: STAT, Dosing Weight 36.364 kg, Start date: 03/09/17 20:22:00 CDT, Duration: 1 doses or times, Stop date: 20:22:00 CDT Inactive 03/10/2017 [facility] Saline Flush 0.9% 10 mL, Route: IVP, Drug Form: INJ, Dosing Weight 44.9, kg, PRN, PRN Line Flush, Start date: 03/09/17 20:01:00 CDT, Duration: 30 day, Stop date: 04/08/17 20:00:00 CDTNotes: Same as: BD Posiflush Sterile No Longer Active 03/10/2017 [facility] Fluconazole 100 MG Oral Tablet [Diflucan] 100 mg=1 tab, PO, Daily, X 10 day, # 10 tab, 0 Refill(s), Pharmacy: [facility] [id number] Active 12/29/2016 [facility] glimepiride 4 MG Oral Tablet [Amaryl] 4 mg=1 tab, PO, Breakfast, # 30 tab, 0 Refill(s), Pharmacy: [facility] [id number] Active 12/29/2016 [facility] Amoxicillin 500 MG / Clavulanate 125 MG Oral Tablet [Augmentin 500-mg] 1 tab, PO, Q8H, # 21 tab, 0 Refill(s), Pharmacy: [facility] [id number] No Longer Active 12/29/2016 [facility] Acetaminophen 300 MG / Codeine Phosphate 30 MG Oral Tablet [Tylenol with Codeine #3] 1 - 2 tab, PO, Q4H, PRN Pain, X 4 day, # 36 tab, 0 Refill(s) Active 12/29/2016 [facility] Phenazopyridine hydrochloride 200 MG Oral Tablet [Pyridium] 200 mg=1 tab, PO, TID, PRN Dysuria, X 2 day, # 6 tab, 0 Refill(s), Pharmacy: [facility] [id number] No Longer Active 12/29/2016 [facility] ondansetron (ANES) Route: IV, Drug form: INJ, ONCE, Stop date: 12/28/16 13:23:00 CDT Inactive 12/28/2016 [facility] metoclopramide (ANES) Route: IV, Drug form: INJ, ONCE, Stop date: 12/28/16 13:23:00 CDT Inactive 12/28/2016 [facility] lidocaine (ANES) Route: IV, Drug form: INJ, ONCE, Stop date: 12/28/16 13:23:00 CDT Inactive 12/28/2016 [facility] propofol (ANES) Route: IV, Drug form: INJ, ONCE, Stop date: 12/28/16 13:23:00 CDT Inactive 12/28/2016 [facility] fentaNYL (ANES) Route: IV, Drug form: INJ, ONCE, Stop date: 12/28/16 13:23:00 CDT Inactive 12/28/2016 [facility] midazolam (ANES) Route: IV, Drug form: SOLN, ONCE, Stop date: 12/28/16 13:23:00 CDT Inactive 12/28/2016 [facility] sodium chloride 0.9% 1000 ml INJ (ANES) Route: IV, Total Volume: 1,000, Start date: 12/28/16 12:44:00 CDT, Stop date: 12/28/16 13:44:00 CDT Inactive 12/28/2016 [facility] Klor-Con 40 mEq, 2 tab, Route: PO, Drug form: ERTAB, ONCE, Dosing Weight 44.9, kg, Start date: 12/27/16 11:47:00 CDT, Stop date: 12/27/16 11:47:00 CDTNotes: (Same as: K-Dur 20) "Do Not Crush" With food and full glass of water Inactive 12/27/2016 [facility] insulin, isophane 5 unit, 0.05 mL, Route: SUB-Q, Drug form: INJ, Daily, Dosing Weight 44.9, kg, Start date: 12/27/16 9:00:00 CDT, Duration: 30 day, Stop date: 01/25/17 9:00:00 CDTNotes: Roll in palms of hands gently; Do not shake vigorously. (Same as: NovoLIN N, Humulin N) Do not hold insulin without contacting prescriber "single patient use only" WASTE: F/P - Black; E - [employer] Trash Bin Stable for 14 days at room temperature Expires in days from Date No Longer Active 12/27/2016 [facility] Inderal 20 mg, 2 tab, Route: PO, Drug form: TAB, QID, Dosing Weight 44.9, kg, Start date: 12/27/16 9:00:00 CDT, Duration: 30 day, Stop date: 01/25/17 21:00:00 CDTNotes: Give with food. (Same as: Inderal) No Longer Active 12/27/2016 [facility] potassium phosphate + sodium chloride 0.9% INJ 250 mL 15 mmol, 5 mL, Route: IVPB, PRN, Dosing Weight 44.9, kg, PRN Abnormal Lab Result, Start date: 12/27/16 8:05:00 CDT, Duration: 30 day, Stop date: 01/26/17 8:04:00 CDT, FOR ICU USE ONLYNotes: (Same as: K Phosphate.) 1 mMol phoshate has 1.47 mEq potassium Infuse over 4 hours No Longer Active 12/27/2016 [facility] potassium chloride 20 mEq, 100 mL, Route: IVPB, Drug form: INJ, PRN, Dosing Weight 44.9, kg, PRN Abnormal Lab Result, Via central line, Start date: 12/27/16 8:05:00 CDT, Duration: 30 day, Stop date: 01/26/17 8:04:00 CDT, FOR ICU USE ONLYNotes: (Same as: KCL) Infuse no faster than 10 mEq/hr if given peripherally. No Longer Active 12/27/2016 [facility] sodium phosphate + D5W 250 mL 15 mmol, 5 mL, Route: IVPB, PRN, Dosing Weight 44.9, kg, PRN Abnormal Lab Result, Start date: 12/27/16 8:05:00 CDT, Duration: 30 day, Stop date: 01/26/17 8:04:00 CDT, FOR ICU USE ONLY No Longer Active 12/27/2016 [facility] sodium phosphate + D5W 500 mL 45 mmol, 15 mL, Route: IVPB, PRN, Dosing Weight 44.9, kg, PRN Abnormal Lab Result, Start date: 12/27/16 8:05:00 CDT, Duration: 30 day, Stop date: 01/26/17 8:04:00 CDT, FOR ICU USE ONLY No Longer Active 12/27/2016 [facility] Calcium Carbonate 500 MG Chewable Tablet 1,000 mg, 2 tab, Route: CHEW, Drug form: CHEWTAB, PRN, Dosing Weight 44.9, kg, PRN Abnormal Lab Result, FOR ICU USE ONLY, Start date: 12/27/16 8:05:00 CDT, Duration: 30 day, Stop date: 01/26/17 8:04:00 CDTNotes: (Same As: Tums) Calcium Carbonate 500 pw=354 mg elemental calcium Dose= mg calcium carbonate ( mg elemental calcium) No Longer Active 12/27/2016 [facility] Magnesium Sulfate 2 gm, 50 mL, Route: IVPB, Drug form: INJ, PRN, Dosing Weight 44.9, kg, PRN Abnormal Lab Result, Start date: 12/27/16 8:05:00 CDT, Duration: 30 day, Stop date: 01/26/17 8:04:00 CDT, FOR ICU USE ONLYNotes: WASTE: F/P - Sink; E - Municipal Trash Bin No Longer Active 12/27/2016 [facility] potassium phosphate-sodium phosphate 250 mg-280 mg-160 mg oral powder for reconstitution 2 pkt, Route: PO, Drug Form: PDR/REC, Dosing Weight 44.9, kg, PRN, PRN Abnormal Lab Result, FOR ICU USE ONLY, Start date: 12/27/16 8:05:00 CDT, Duration: 30 day, Stop date: 01/26/17 8:04:00 CDTNotes: (Same as: Phos-NaK) Each 1.5 gm pkt has 250mg phosphorous. Mix w/2.5oz water and stir. No Longer Active 12/27/2016 [facility] Magnesium Oxide 800 mg, 2 tab, Route: PO, Drug form: TAB, PRN, Dosing Weight 44.9, kg, PRN Abnormal Lab Result, FOR ICU USE ONLY, Start date: 12/27/16 8:05:00 CDT, Duration: 30 day, Stop date: 01/26/17 8:04:00 CDTNo renee: (Same as: Mag-Ox 400) Magnesium oxide [id number] elemental magnesium Dose=____mg magnesium oxide (___mg elemental magnesium) No Longer Active 12/27/2016 [facility] Calcium Gluconate 1 gm, 50 mL, Route: IVPB, Drug form: INJ, PRN, Dosing Weight 44.9, kg, PRN Abnormal Lab Result, Start date: 12/27/16 8:05:00 CDT, Duration: 30 day, Stop date: 01/26/17 8:04:00 CDT, FOR ICU USE ONLYNotes: WASTE: F/P - Sink; E - Municipal Trash Bin No Longer Active 12/27/2016 [facility] Methimazole 10 mg, 2 tab, Route: PO, Drug form: TAB, Q8H, Dosing Weight 44.9, kg, Start date: 12/27/16 8:00:00 CDT, Duration: 30 day, Stop date: 01/26/17 0:00:00 CDT No Longer Active 12/27/2016 [facility] Amylases 964980 UNT / Endopeptidases 38084 UNT / Lipase 35280 UNT Enteric Coated Capsule [Creon 24] 1 cap, Route: PO, Drug Form: DRC, Dosing Weight 44.9, kg, TID-Before Meals, Start date: 12/27/16 7:30:00 CDT, Duration: 30 day, Stop date: 01/25/17 16:30:00 CDTNotes: Same as: Santiago BUSTILLOS 24 : lipase 2 4,000 units, protease 76,000 units, amylase 120,000 units No Longer Active 12/27/2016 [facility] potassium chloride 40 mEq, 2 tab, Route: PO, Drug form: ERTAB, ONCE, Dosing Weight 44.9, kg, Start date: 12/27/16 6:21:00 CDT, Stop date: 12/27/16 6:21:00 CDTNotes: (Same as: K-Dur 20) "Do Not Crush" With food and full glass of water Inactive 12/27/2016 [facility] Zosyn 3.375 gm, Route: IVPB, ABXQ8H, Dosing Weight 44.9, kg, Start date: 12/27/16 4:00:00 CDT, Duration: 3 day, Stop date: 12/29/16 20:00:00 CDT, ABX Indication: Urinary Tract InfectionNotes: (Same as: Zosyn) Dosing based on Piperacillin component MEDICATION WASTE Product Size: 3375 mg Product Wasted: ___ mg No Longer Active 12/27/2016 [facility] Insulin, Aspart, Human 3 unit, 0.03 mL, [...] days from Date No Longer Active 12/27/2016 [facility] Glucagon 1 mg, Route: IM, Drug form: PDR/INJ, PRN, Dosing Weight 44.9, kg, PRN Blood Glucose Results, Start date: 12/27/16 3:37:00 CDT, Duration: 30 day, Stop date: 01/26/17 3:36:00 CDT No Longer Active 12/27/2016 [facility] Dextrose 50% Syringe 25 gm, 50 mL, Route: IVP, Drug Form: INJ, Dosing Weight 44.9, kg, PRN, PRN Blood Glucose Results, Start date: 12/27/16 3:37:00 CDT, Duration: 30 day, Stop date: 01/26/17 3:36:00 CDT No Longer Active 12/27/2016 [facility] Sodium Chloride 0.154 MEQ/ML Injectable Solution 1,000 mL, Rate: 125 ml/hr, Infuse over: 8 hr, Route: IV, Dosing Weight 44.9 kg, Total Volume: 1,000, Start date: 12/27/16 3:35:00 CDT, Duration: 30 day, Stop date: 01/26/17 3:34:00 CDT No Longer Active 12/27/2016 [facility] Hydromorphone 0.5 mg, 0.5 mL, Route: IVP, Drug form: INJ, Q4H, Dosing Weight 44.9, kg, PRN Pain Score 7-10, Start date: 12/27/16 3:06:00 CDT, Duration: 30 day, Stop date: 01/26/17 3:05:00 CDT No Longer Active 12/27/2016 [facility] Ondansetron 4 mg, 2 mL, Route: IVP, Drug form: INJ, Q6H, Dosing Weight 44.9, kg, PRN Nausea & Vomiting, Start date: 12/27/16 3:06:00 CDT, Duration: 30 day, Stop date: 01/26/17 3:05:00 CDTNotes: (Same as: Zofran) MEDICATION WASTE Product Size: 4 mg Product Wasted: ___ mg No Longer Active 12/27/2016 [facility] Zofran 4 mg, 2 mL, Route: IV, Drug form: INJ, Q4H, Dosing Weight 44.9, kg, PRN as needed for nausea/vomiting, Start date: 12/27/16 2:58:00 CDT, Duration: 30 day, Stop date: 01/26/17 2:57:00 CDTNotes: (Same as: Zofran) MEDICATION WASTE Product Size: 4 mg Product Wasted: ___ mg Inactive 12/27/2016 [facility] Dilaudid 0.5 mg, 0.5 mL, Route: IV, Drug form: INJ, Q4H, Dosing Weight 44.9, kg, PRN Pain Score 6-10, Start date: 12/27/16 2:58:00 CDT, Duration: 30 day, Stop date: 01/26/17 2:57:00 CDT Inactive 12/27/2016 [facility] Meclizine Hcl 12.5 Mg Tablet, 25 Mg Oral Daily Active 12/26/2016 [facility] Metoprolol Succinate 25 Mg Tab.er.24h, 25 Mg Oral Daily Active 12/26/2016 [facility] Pantoprazole Sodium (Protonix) 40 Mg Tablet.dr, 40 Mg Oral Daily Active 12/26/2016 [facility] Blood Glucose Test Strips 1 box, TOP, Before Breakfast, # 100 strip, 0 Refill(s) Active 09/21/2016 [facility] Blood Glucose Monitor 1 ea, MISC, Daily, Use as directed., # 1 ea, 0 Refill(s) Active 09/21/2016 [facility] insulin isophane (NPH) 100 units/mL human recombinant subcutaneous suspension 5 unit, SUB-Q, Daily, # 10 mL, 0 Refill(s), Pharmacy: [facility] [id number] Active 09/21/2016 [facility] for Injection Syringe Misc/Other 1 ea, MISC, Q30D, # 6 ea, 1 Refill(s) Active 09/21/2016 [facility] Amylases 962874 UNT / Endopeptidases 18282 UNT / Lipase 23820 UNT Enteric Coated Capsule [Creon 24] 1 cap, PO, TID-Before Meals, # 90 cap, 0 Refill(s), Pharmacy: [facility] [id number] Active 09/21/2016 [facility] propranolol 20 mg oral tablet 20 mg=1 tab, PO, TID, # 90 tab, 0 Refill(s), Pharmacy: [facility] [id number] Active 09/21/2016 [facility] Lancets 1 box, MISC, Daily, # 1 box, 0 Refill(s) Active 09/21/2016 [facility] Lancet Device 1 box, MISC, Daily, # 1 ea, 0 Refill(s) Active 09/21/2016 [facility] methimazole 10 mg oral tablet 10 mg, PO, Q8H, # 90 tab, 0 Refill(s), Pharmacy: [facility] [id number] Active 09/21/2016 [facility] Insulin Syringes (U 100) 1 syr, SUB-Q, ONCALL, # 100 syr, 0 Refill(s) Active 09/21/2016 [facility] Amylases 330974 UNT / Endopeptidases 16106 UNT / Lipase 72605 UNT Enteric Coated Capsule [Creon 24] 1 cap, Route: PO, Drug Form: DRC, Dosing Weight 41.818, kg, TID-Before Meals, 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, Duration: 30 day, Stop date: 10/20/16 16:30:00 CDTNotes: Same as: Creon DRC 24 : lipase 24,000 units, protease 76,000 units, amylase 120,000 units No Longer Active 09/21/2016 [facility] potassium chloride 40 mEq, 2 tab, Route: PO, Drug form: ERTAB, ONCE, Dosing Weight 41.818, kg, PRN Abnormal Lab Result, Electrolyte replacement, Start date: 09/20/16 18:00:00 CSTNotes: (Same as: K-Dur 20) "Do Not Crush" With food and full glass of water No Longer Active 09/21/2016 [facility] potassium chloride 40 mEq, 2 tab, Route: PO, Drug form: ERTAB, ONCE, Dosing Weight 41.818, kg, PRN Abnormal Lab Result, Electrolyte replacement, Start date: 09/20/16 17:00:00 CSTNotes: (Same as: K-Dur 20) "Do Not Crush" With food and full glass of water No Longer Active 09/20/2016 [facility] Questran 4 gm, 1 pkt, Route: PO, Drug form: PDR/REC, Daily, Dosing Weight 41.818, kg, Priority: NOW, Start date: 09/20/16 14:26:00 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, Duration: 30 day, Stop date: 10/20/16 9:00:00 CDTNotes: (Same As: Questran) No Longer Active 09/20/2016 [facility] potassium chloride 40 mEq, 2 tab, Route: PO, Drug form: ERTAB, Q2H, Dosing Weight 41.818, kg, Start date: 09/20/16 12:00:00 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, Duration: 2 doses or times, Stop date: 09/20/16 14:00:00 CSTNotes: (Same as: Emory Hess 20) "Do Not Crush" With food and full glass of water Inactive 09/20/2016 [facility] potassium chloride 40 mEq, Route: NG, Drug form: LIQ, ONCE, Dosing Weight 41.818, kg, Start date: 09/20/16 11:36:00 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, Stop date: 09/20/16 11:36:00 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 Inactive 09/20/2016 [facility] D5W 1,000 mL 1,000 mL, Rate: 50 ml/hr, Infuse over: 20 hr, Route: IV, Dosing Weight 41.818 kg, Total Volume: 1,000, Start date: 09/19/16 6:38:00 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, Duration: 12 hr, Stop date: 09/19/16 18:37:00 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 Inactive 09/19/2016 [facility] Dextrose 50% Syringe 25 gm, 50 mL, Route: IVP, Drug Form: INJ, Dosing Weight 41.818, kg, PRN, PRN Blood Glucose Results, Start date: 09/18/16 18:06:00 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, Duration: 30 day, Stop date: 10/18/16 19:05:00 CDT No Longer Active 09/19/2016 [facility] Glucagon 1 mg, Route: IM, Drug form: PDR/INJ, PRN, Dosing Weight 41.818, kg, PRN Blood Glucose Results, Start date: 09/18/16 18:06:00 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, Duration: 30 day, Stop date: 10/18/16 19:05:00 CDT No Longer Active 09/19/2016 [facility] Insulin, Aspart, Human 1 unit, 0.01 mL, Route: SUB-Q, Drug form: SOLN, TID-Before Meals, Dosing Weight 41.818, kg, PRN Blood Glucose Results, Start date: 09/18/16 18:06:00 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, Duration: 30 day, Stop date: 10/18/16 18:05:00 CDTNotes: Roll in palms of hands gently; Do not shake vigorously. (Same as: NovoLOG) "single patient use only" WASTE: F/P - Black; E - Municipal Trash Bin Stable for 28 days at room temperature. Expires in days from Date No Longer Active 09/19/2016 [facility] potassium chloride 40 mEq, 2 tab, Route: PO, Drug form: ERTAB, ONCE, Dosing Weight 41.818, kg, Start date: 09/18/16 13:45:00 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, Stop date: 09/18/16 13:45:00 CSTNotes: (Same as: K-Dur 20) "Do Not Crush" With food and full glass of water Inactive 09/18/2016 [facility] Cathflo Activase 2 mg injection 2 mg, 2 mL, Route: INJ, Drug form: INJ, ONCE, Dosing Weight 41.364, kg, Start date: 09/15/16 16:58:00 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, Stop date: 09/15/16 16:58:00 CSTNotes: "Syringe for catheter clearance or interventional radiology use. Reconstitute each vial of Cathflo Activase with 2.2 ml Sterile Water resulting in a 1 mg/ml solution. Stable for 8 hours only. (Same as: Activase) MEDICATION WASTE Product Size: 2 mg Product Wasted: ___ mg Inactive 09/15/2016 [facility] Magnesium Sulfate 2 gm, 50 mL, Route: IVPB, Drug form: INJ, ONCE, Dosing Weight 41.364, kg, Total dose=2 gm, Start date: 09/15/16 12:18:00 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, Duration: 1 doses or times, Stop date: 09/15/16 12:18:00 CSTNotes: WASTE: F/P - Sink; E - Municipal Trash Bin Inactive 09/15/2016 [facility] potassium chloride 20 mEq, 100 mL, Route: IVPB, Drug form: INJ, Q2H, Start date: 09/15/16 8:00:00 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, Duration: 2 doses or times, Stop date: 09/15/16 10:00:00 CSTNotes: (Same as: KCL) Infuse no faster than 10 mEq/hr if given peripherally. Inactive 09/15/2016 [facility] potassium chloride 40 mEq, Route: IV, ONCE, Dosing Weight 41.364, kg, Start date: 09/15/16 7:03:00 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, Stop date: 09/15/16 7:03:00 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 Inactive 09/15/2016 [facility] Potassium Chloride 1.33 MEQ/ML Oral Solution 40 mEq, 30 mL, Route: PO, Drug form: LIQ, ONCE, Dosing Weight 41.364, kg, Start date: 09/15/16 7:02:00 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, Stop date: 09/15/16 7:02:00 CSTNotes: (Same as: Potassium Chloride) Inactive 09/15/2016 [facility] alteplase 2 mg injection 5 mg + empty container 1 ea + sodium chloride 0.9% INJ 40 mL Route: MISC, Drug form: INJ, ONCE, Dosing Weight 41.364, kg, mix 5 mg tPa in 40 mL normal saline and instill in lower abdominal drainage catheter. clamp tube for 1 hour, then open to bag drainage., Priority: STAT, Start date: 09/14/16 17:07:00 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, St...Notes: "Syringe for catheter clearance or interventional radiology use. Reconstitute each vial of Cathflo Activase with 2.2 ml Sterile Water resulting in a 1 mg/ml solution. Stable for 8 hours only. (Same as: Activase) MEDICATION WASTE Product Size: 2 mg Product Wasted: ___ mg Inactive 09/14/2016 [facility] dexamethasone (ANES) Route: IV, Drug form: INJ, ONCE, Stop date: 09/13/16 12:49:00 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 Inactive 09/13/2016 [facility] ceFAZolin (ANES) Route: IV, Drug form: INJ, ONCE, Stop date: 09/13/16 12:49:00 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 Inactive 09/13/2016 [facility] ondansetron (ANES) Route: IV, Drug form: INJ, ONCE, Stop date: 09/13/16 12:46:00 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 Inactive 09/13/2016 [facility] famotidine (ANES) Route: IV, Drug form: INJ, ONCE, Stop date: 09/13/16 12:46:00 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 Inactive 09/13/2016 [facility] succinylcholine (ANES) Route: IV, Drug form: INJ, ONCE, Stop date: 09/13/16 12:46:00 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 Inactive 09/13/2016 [facility] lidocaine (ANES) Route: IV, Drug form: INJ, ONCE, Stop date: 09/13/16 12:41:00 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 Inactive 09/13/2016 [facility] fentaNYL (ANES) Route: IV, Drug form: INJ, ONCE, Stop date: 09/13/16 12:41:00 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 Inactive 09/13/2016 [facility] propofol (ANES) Route: IV, Drug form: INJ, ONCE, Stop date: 09/13/16 12:41:00 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 Inactive 09/13/2016 [facility] rocuronium (ANES) Route: IV, Drug form: INJ, ONCE, Stop date: 09/13/16 12:41:00 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 Inactive 09/13/2016 [facility] midazolam (ANES) Route: IV, Drug form: SOLN, ONCE, Stop date: 09/13/16 12:41:00 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 Inactive 09/13/2016 [facility] LR 1000 mL INJ (ANES) Route: IV, Total Volume: 1,000, Start date: 09/13/16 11:51:00 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, Stop date: 09/13/16 12:51:00 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 Inactive 09/13/2016 [facility] Lactated Ringers Injection IV 1000 mL 1,000 mL, Rate: 40 ml/hr, Infuse over: 25 hr, Route: IV, Dosing Weight 41.364 kg, Total Volume: 1,000, Start date: 09/13/16 10:54:00 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, Duration: 1 doses or times, Stop date: 09/14/16 11:53:00 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 Inactive 09/13/2016 [facility] Dilaudid 0.5 mg, 0.5 mL, Route: IV, Drug form: INJ, Q4H, Dosing Weight 41.364, kg, PRN Pain Score 6-10, Start date: 09/12/16 13:52:00 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, Duration: 30 day, Stop date: 10/12/16 13:51:00 CDT No Longer Active 09/12/2016 [facility] potassium chloride 20 mEq, 100 mL, Route: IVPB, Drug form: INJ, ONCE, Dosing Weight 41.364, kg, Start date: 09/12/16 12:07:00 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, Stop date: 09/12/16 12:07:00 CSTNotes: (Same as: KCL) Infuse no faster than 10 mEq/hr if given peripherally. Inactive 09/12/2016 [facility] Vancomycin 1 gm, Route: IV, ONCE, Dosing Weight 41.364, kg, Start date: 09/12/16 10:55:00 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, Stop date: 09/12/16 10:55:00 CSTNotes: TIME CRITICAL MEDICATION (Same As: Vancocin) Infusion rate 2001 mg: infuse ov er 2.5 hours MEDICATION WASTE Product Size: 1000 mg Product Wasted: ___ mg Inactive 09/12/2016 [facility] cefepime 2 gm, Route: IV, Drug form: INJ, ONCE, Dosing Weight 41.364, kg, Start date: 09/12/16 10:55:00 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, Stop date: 09/12/16 10:55:00 CSTNotes: (Same as: Maxipime) MEDICATION WASTE Product Size: 2000 mg Product Wasted: ___ mg tolerated Cefepime during 08/23/16 [place] [facility] [place] several doses as per MD and as documented in e-MAR Inactive 09/12/2016 [facility] 72 HR Scopolamine 0.0139 MG/HR Transdermal Patch 1 patch, Route: TOP, Drug Form: ERFILM, Dosing Weight 41.364, kg, ONCE, Apply behind ear. Avoid use in elderly., Start date: 09/12/16 10:40:00 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, Stop date: 09/12/16 10:40:00 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 Inactive 09/12/2016 [facility] Diphenhydramine 12.5 mg, Route: IVP, Drug form: INJ, Q6H, Dosing Weight 41.364, kg, PRN Itching, Start date: 09/12/16 10:40:00 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, Duration: 30 day, Stop date: 10/12/16 10:39:00 CDT Inactive 09/12/2016 [facility] Promethazine 6.25 mg, Route: IVPB, ONCE, Dosing Weight 41.364, kg, PRN Nausea & Vomiting, Start date: 09/12/16 10:40:00 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 Inactive 09/12/2016 [facility] Meperidine 12.5 mg, Route: IVP, Q30Min, Dosing Weight 41.364, kg, PRN Other -See Comment, For shivering, Start date: 09/12/16 10:40:00 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, Duration: 2 doses or times, Stop date: Limited # of times Inactive 09/12/2016 [facility] Ondansetron 4 mg, Route: IVP, ONCE, Dosing Weight 41.364, kg, PRN Nausea & Vomiting, Start date: 09/12/16 10:40:00 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 Inactive 09/12/2016 [facility] Oxycodone 5 mg, Route: PO, Drug form: TAB, Q4H, Dosing Weight 41.364, kg, PRN Pain Score 4-6, Start date: 09/12/16 10:40:00 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, Duration: 30 day, Stop date: 10/12/16 10:39:00 CDT Inactive 09/12/2016 [facility] Hydromorphone 0.5 mg, Route: IVP, Q5Min, Dosing Weight 41.364, kg, PRN Pain Score 7-10, Start date: 09/12/16 10:40:00 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, Duration: 4 doses or times, Stop date: Limited # of times Inactive 09/12/2016 [facility] Morphine 4 mg, Route: IVP, Q5Min, Dosing Weight 41.364, kg, PRN Pain Score 7-10, Start date: 09/12/16 10:40:00 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, Duration: 3 doses or times, Stop date: Limited # of times Inactive 09/12/2016 [facility] Flumazenil 0.2 mg, Route: IVP, PRN, Dosing Weight 41.364, kg, PRN Benzodiazepine Reversal, Initial dose, Start date: 09/12/16 10:40:00 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, Duration: 30 day, Stop date: 10/12/16 11:39:00 CDT Inactive 09/12/2016 [facility] Fentanyl 50 microgram, Route: IVP, Q5Min, Dosing Weight 41.364, kg, PRN Pain Score 7-10, Priority: Routine, Start date: 09/12/16 10:40:00 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, Duration: 2 doses or times, Stop date: Limited # of times Inactive 09/12/2016 [facility] Calcium Chloride 0.0014 MEQ/ML / Potassium Chloride 0.004 MEQ/ML / Sodium Chloride 0.103 MEQ/ML / Sodium Lactate 0.028 MEQ/ML Injectable Solution 1,000 mL, Rate: 125 ml/hr, Infuse over: 8 hr, Route: IV, Dosing Weight 41.364 kg, Total Volume: 1,000, Start date: 09/12/16 10:40:00 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, Duration: 30 day, Stop date: 10/12/16 10:39:00 CDT Inactive 09/12/2016 [facility] Naloxone 0.4 mg, Route: IVP, Q2MIN, Dosing Weight 41.364, kg, PRN Narcotic Reversal, Start date: 09/12/16 10:40:00 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, Duration: 8 doses or times, Stop date: Limited # of times Inactive 09/12/2016 [facility] Sodium Chloride 0.154 MEQ/ML Injectable Solution 1,000 mL, Rate: 25 ml/hr, Infuse over: 40 hr, Route: IV, Dosing Weight 41.364 kg, Total Volume: 1,000, Start date: 09/12/16 8:31:00 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, Duration: 30 day, Stop date: 10/12/16 8:30:00 CDT Inactive 09/12/2016 [facility] potassium chloride 20 mEq, 100 mL, Route: IVPB, Drug form: INJ, Q2H, Dosing Weight 41.364, kg, Total dose=40 mEq, Start date: 09/12/16 8:00:00 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, Duration: 2 doses or times, Stop date: 09/12/16 10:00:00 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, Central LineNotes: (Same as: KCL) Infuse no faster than 10 mEq/hr if given peripherally. Inactive 09/12/2016 [facility] D5W 1/2NS 1,000 mL 1,000 mL, Rate: 125 ml/hr, Infuse over: 8 hr, Route: IV, Dosing Weight 41.364 kg, Total Volume: 1,000, Start date: 09/12/16 0:00:00 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, Stop date: 10/11/16 23:59:00 CDT No Longer Active 09/12/2016 [facility] Dextrose 5% with 0.45% NaCl IV 1000 mL 1,000 mL, Rate: 75 ml/hr, Infuse over: 13.3 hr, Route: IV, Dosing Weight 41.364 kg, Total Volume: 1,000, Start date: 09/11/16 16:41:00 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, Duration: 30 day, Stop date: 10/11/16 16:40:00 CDT Inactive 09/11/2016 [facility] pantoprazole 40 mg, 1 tab, Route: PO, Drug form: ECTAB, Before Dinner, Dosing Weight 50, kg, Start date: 09/11/16 16:30:00 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, Stop date: 10/10/16 16:30:00 CDTNotes: Tablet should not be chewed or crushed. (Same as: Protonix) No Longer Active 09/11/2016 [facility] Methimazole 10 mg, 2 tab, Route: PO, Drug form: TAB, Q8H, Dosing Weight 50, kg, Start date: 09/11/16 0:00:00 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, Stop date: 10/10/16 16:00:00 CDT No Longer Active 09/11/2016 [facility] insulin, isophane 5 unit, 0.05 mL, Route: SUB-Q, Drug form: INJ, Q12H, Dosing Weight 50, kg, Start date: 09/10/16 21:00:00 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, Duration: 30 day, Stop date: 10/10/16 12:00:00 CDTNotes: Roll in palms of hands gently; Do not shake vigorously. (Same as: NovoLIN N, Humulin N) Do not hold insulin without contacting prescriber "single patient use only" WASTE: F/P - Black; E - [employer] Trash Bin Stable for 14 days at room temperature Expires in days from Date No Longer Active 09/11/2016 [facility] Enoxaparin 40 mg, 0.4 mL, Route: SUB-Q, Drug form: INJ, Daily, Dosing Weight 50, kg, Start date: 09/10/16 21:00:00 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, Duration: 30 day, Stop date: 10/09/16 21:00:00 CDTNotes: (Same as: Lovenox) No Longer Active 09/11/2016 [facility] Dilaudid 0.5 mg, 0.5 mL, Route: IV, Drug form: INJ, Q6H, Dosing Weight 41.364, kg, PRN Pain Score 6-10, Start date: 09/10/16 18:41:00 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, Duration: 30 day, Stop date: 10/10/16 18:40:00 CDT No Longer Active 09/11/2016 [facility] Propranolol 20 mg, 2 tab, Route: PO, Drug form: TAB, TID, Dosing Weight 50, kg, Start date: 09/10/16 17:00:00 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, Duration: 30 day, Stop date: 10/10/16 13:00:00 CDTNotes: Give with food. (Same as: Inderal) No Longer Active 09/10/2016 [facility] Morphine 2 mg, 1 mL, Route: IVP, Drug form: INJ, Q4H, Dosing Weight 50, kg, PRN Pain Score 6-10, Start date: 09/10/16 16:46:00 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, Duration: 30 day, Stop date: 10/10/16 16:45:00 CDTNotes: (Same as:MORPhine S ulfate) No Longer Active 09/10/2016 [facility] Tylenol 650 mg, 20.3 mL, Route: PO, Drug form: LIQ, Q6H, Dosing Weight 50, kg, PRN Pain 1-3/Temp > 100.4 F, Start date: 09/10/16 16:45:00 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, Duration: 30 day, Stop date: 10/10/16 16:44:00 CDTNotes: Max [id number]/day (4 gm/day). (Same as: Tylenol) No Longer Active 09/10/2016 [facility] Zofran 4 mg, 2 mL, Route: IV, Drug form: INJ, Q6H, Dosing Weight 50, kg, PRN Nausea, Start date: 09/10/16 16:45:00 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, Duration: 30 day, Stop date: 10/10/16 16:44:00 CDTNotes: (Same as: Zofran) MEDICATION WASTE Product Size: 4 mg Product Wasted: ___ mg No Longer Active 09/10/2016 [facility] Acetaminophen 20 MG/ML / Hydrocodone Bitartrate 0.667 MG/ML Oral Solution 10 mL, Route: PO, Drug Form: SOLN, Dosing Weight 50, kg, Q6H, PRN Pain Score 4-6, Start date: 09/10/16 16:45:00 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, Duration: 30 day, Stop date: 10/10/16 16:44:00 CDTNotes: Do not exceed 4gm/day of acetaminophen. (Same as: Douglas 325/7.5) No Longer Active 09/10/2016 [facility] Insulin, Aspart, Human 10 unit, 0.1 mL, Route: SUB-Q, Drug form: SOLN, Sliding Scale, Dosing Weight 50, kg, PRN Blood Glucose Results, Start date: 09/10/16 16:44:00 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, Duration: 30 day, Stop date: 10/10/16 17:43:00 CDTNotes: Roll in palms of hands gently; Do not shake vigorously. (Same as: NovoLOG) "single patient use only" WASTE: F/P - Black; E - Municipal Trash Bin Stable for 28 days at room temperature. Expires in days from Date No Longer Active 09/10/2016 [facility] Dextrose 50% Syringe 25 gm, 50 mL, Route: IVP, Drug Form: INJ, Dosing Weight 50, kg, PRN, PRN Blood Glucose Results, Start date: 09/10/16 16:44:00 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, Duration: 30 day, Stop date: 10/10/16 17:43:00 CDT No Longer Active 09/10/2016 [facility] Glucagon 1 mg, Route: IM, Drug form: PDR/INJ, PRN, Dosing Weight 50, kg, PRN Blood Glucose Results, Start date: 09/10/16 16:44:00 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, Duration: 30 day, Stop date: 10/10/16 17:43:00 CDT No Longer Active 09/10/2016 [facility] Ondansetron 4 mg, 2 mL, Route: IVP, Drug form: INJ, Q6H, Dosing Weight 50, kg, PRN Nausea & Vomiting, Start date: 09/10/16 16:40:00 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, Duration: 30 day, Stop date: 10/10/16 16:39:00 CDTNotes: (Same as: Sotero) MEDICATION WASTE Product Size: 4 mg Product Wasted: ___ mg No Longer Active 09/10/2016 [facility] Regular Insulin, Human 100 UNT/ML Injectable Solution 1 unit, SUB-Q, Sliding Scale, PRN Blood Glucose Results, 0 Refill(s) On Hold 09/10/2016 [facility] tramadol hydrochloride 50 MG Oral Tablet 50 mg=1 tab, PO, Q4H, PRN Pain Score 1-3, 0 Refill(s) On Hold 09/10/2016 [facility] insulin isophane (NPH) 100 units/mL human recombinant subcutaneous suspension 5 unit, SUB-Q, Q12H, 0 Refill(s) On Hold 09/10/2016 [facility] Magnesium Sulfate 2 gm, 50 mL, Route: IVPB, Drug form: INJ, ONCE, Dosing Weight 50, kg, Start date: 09/06/16 8:04:00 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, Duration: 2 hr, Stop date: 09/06/16 8:04:00 CSTNotes: WASTE: F/P - Sink; E - Municipal Trash Bin Inactive 09/06/2016 [facility] Melatonin 3 MG Extended Release Tablet 3 mg, 1 tab, Route: PO, Drug Form: TAB, Dosing Weight 50, kg, Bedtime, Start date: 09/05/16 21:44:00 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, Duration: 30 day, Stop date: 10/05/16 21:00:00 CSTNotes: (Same as: Melatonin) No Longer Active 09/06/2016 [facility] Dilaudid 0.5 mg, 0.25 mL, Route: IVP, Drug form: INJ, ONCE, Dosing Weight 50, kg, Priority: STAT, Start date: 09/05/16 16:32:00 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, Stop date: 09/05/16 16:32:00 CSTNotes: Same as: Dilaudid Inactive 09/05/2016 [facility] Acetaminophen 325 MG / Hydrocodone Bitartrate 5 MG Oral Tablet [Douglas 5/325] 1 tab, Route: PO, Drug Form: TAB, Dosing Weight 50, kg, Q6H, PRN Pain Score 6-10, FOR SEVERE PAIN, Start date: 09/05/16 11:28:00 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, Duration: 30 day, Stop date: 10/05/16 11:27:00 CSTNotes: (Same as: Douglas 325/5) Do not exceed 4gm/day of acetaminophen. No Longer Active 09/05/2016 [facility] tramadol hydrochloride 50 MG Oral Tablet 50 mg, 1 tab, Route: PO, Drug form: TAB, Q4H, Dosing Weight 50, kg, PRN Pain Score 1-3, Start date: 09/05/16 10:48:00 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, Duration: 30 day, Stop date: 10/05/16 10:47:00 CSTNotes: Not to exceed 400mg/day. (Same As: Ultram) No Longer Active 09/05/2016 [facility] Magnesium Sulfate 2 gm, 50 mL, Route: IVPB, Drug form: INJ, ONCE, Dosing Weight 50, kg, Start date: 09/04/16 8:04:00 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, Stop date: 09/04/16 8:04:00 CSTNotes: WASTE: F/P - Sink; E - Municipal Trash Bin Inactive 09/04/2016 [facility] PHOS-NaK 1 pkt, Route: PO, Drug Form: PDR/REC, Dosing Weight 50, kg, Q24H, Start date: 09/02/16 14:00:00 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, Duration: 7 day, Stop date: 09/08/16 14:00:00 CSTNotes: (Same as: Phos-NaK) Each 1.5 gm pkt has 250mg phosphorous. Mix w/2.5oz water and stir. No Longer Active 09/02/2016 [facility] potassium phosphate + sodium chloride 0.9% INJ 250 mL 15 mmol, 5 mL, Route: IVPB, ONCE, Dosing Weight 50, kg, Start date: 09/02/16 7:47:00 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, Stop date: 09/02/16 7:47:00 CSTNotes: (Same as: K Phosphate.) 1 mMol phoshate has 1.47 mEq potassium Infuse over 4 hours Inactive 09/02/2016 [facility] Magnesium Sulfate 2 gm, 50 mL, Route: IVPB, Drug form: INJ, ONCE, Dosing Weight 50, kg, Start date: 09/02/16 7:46:00 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, Duration: 2 hr, Stop date: 09/02/16 7:46:00 CSTNotes: WASTE: F/P - Sink; E - Municipal Trash Bin Inactive 09/02/2016 [facility] Magnesium Sulfate 2 gm, 50 mL, Route: IVPB, Drug form: INJ, ONCE, Dosing Weight 50, kg, Start date: 08/31/16 7:58:00 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, Duration: 2 hr, Stop date: 08/31/16 7:58:00 CSTNotes: WASTE: F/P - Sink; E - Municipal Trash Bin Inactive 08/31/2016 [facility] PHOS-NaK 1 pkt, Route: PO, Drug Form: PDR/REC, Dosing Weight 50, kg, ONCE, Start date: 08/31/16 7:57:00 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, Stop date: 08/31/16 7:57:00 CSTNotes: (Same as: Phos-NaK) Each 1.5 gm pkt has 250mg phosphorous. Mix w/2.5oz water and stir. Inactive 08/31/2016 [facility] sterile water 2.2 mL, Route: MISC, Drug Form: INJ, PRN, PRN Other -See Comment, Start date: 08/30/16 11:01:00 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, Duration: 1 day, Stop date: 08/31/16 11:00:00 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 No Longer Active 08/30/2016 [facility] Cathflo Activase 2 mg injection 2 mg, 2 mL, Route: MISC, Drug form: INJ, ONCE, Dosing Weight 50, kg, Start date: 08/30/16 10:39:00 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, Stop date: 08/30/16 10:39:00 CSTNotes: "Syringe for catheter clearance or interventional radiology use. Reconstitute each vial of Cathflo Activase with 2.2 ml Sterile Water resulting in a 1 mg/ml solution. Stable for 8 hours only. (Same as: Activase) MEDICATION WASTE Product Size: 2 mg Product Wasted: ___ mg Inactive 08/30/2016 [facility] potassium phosphate + sodium chloride 0.9% INJ 250 mL 30 mmol, 10 mL, Route: IV, ONCE, Start date: 08/29/16 10:30:00 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, Stop date: 08/29/16 10:30:00 CSTNotes: (Same as: K Phosphate.) 1 mMol phoshate has 1.47 mEq potassium Infuse over 4 hours Inactive 08/29/2016 [facility] PHOS-NaK 1 pkt, Route: PO, Dosing Weight 50, kg, ONCE, Start date: 08/29/16 9:08:00 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, Stop date: 08/29/16 9:08:00 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 Inactive 08/29/2016 [facility] Insulin regular 5 unit, 0.05 mL, Route: SUB-Q, Drug form: SOLN, Sliding Scale, Dosing Weight 50, kg, PRN Blood Glucose Results, Start date: 08/28/16 23:37:00 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, Duration: 30 day, Stop date: 09/27/16 23:36:00 CSTNotes: (Same as: Humulin R) Roll in palms of hands gently; Do not shake vigorously. "single patient use only" (Restricted to patients requiring a dose > 60 units) WASTE: F/P - Black; E - Municipal Trash Bin Stable for 28 days at room temperature Expires in days from Date No Longer Active 08/29/2016 [facility] Glucagon 1 mg, Route: IM, Drug form: PDR/INJ, PRN, Dosing Weight 50, kg, PRN Blood Glucose Results, Start date: 08/28/16 23:37:00 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, Duration: 30 day, Stop date: 09/27/16 23:36:00 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 No Longer Active 08/29/2016 [facility] Dextrose 50% Syringe 25 gm, 50 mL, Route: IVP, Drug Form: INJ, Dosing Weight 50, kg, PRN, PRN Blood Glucose Results, Start date: 08/28/16 23:37:00 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, Duration: 30 day, Stop date: 09/27/16 23:36:00 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 No Longer Active 08/29/2016 [facility] Loperamide 1 mg, 5 mL, Route: PO, Drug form: LIQ, Q6H, Dosing Weight 50, kg, PRN Diarrhea, Start date: 08/28/16 20:36:00 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, Duration: 30 day, Stop date: 09/27/16 20:35:00 CSTNotes: Same as Imodium No Longer Active 08/29/2016 [facility] insulin, isophane 5 unit, 0.05 mL, Route: SUB-Q, Drug form: INJ, Q12H, Dosing Weight 50, kg, Start date: 08/28/16 13:45:00 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, Stop date: 09/27/16 9:00:00 CSTNotes: Roll in palms of hands gently; Do not shake vigoro usly. (Same as: Humulin N) Do not hold insulin without contacting prescriber WASTE: F/P - Black; E - Municipal Trash Bin Stable for 28 days at room temperature Expires in days from Date No Longer Active 08/28/2016 [facility] Dextrose 50% Syringe 50 mL, Route: IVP, Dosing Weight 50, kg, PRN, PRN Blood Glucose Results, Start date: 08/28/16 13:16:00 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, Duration: 30 day, Stop date: 09/27/16 13:15:00 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 Inactive 08/28/2016 [facility] Glucagon 1 mg, Route: IM, PRN, Dosing Weight 50, kg, PRN Blood Glucose Results, Start date: 08/28/16 13:16:00 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, Duration: 30 day, Stop date: 09/27/16 13:15:00 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 Inactive 08/28/2016 [facility] Menthol 0.0044 MG/MG / Zinc Oxide 0.2 MG/MG Topical Ointment [Calmoseptine Ointment] 1 appl, Route: TOP, PRN, Drug form: OINT, PRN Diaper Rash, Start date: 08/28/16 10:43:00 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, Duration: 30 day, Stop date: 09/27/16 10:42:00 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, DosingNotes: (Same as: Calmoseptine) No Longer Active 08/28/2016 [facility] potassium chloride 40 mEq, 30 mL, Route: PO, Drug form: LIQ, Daily, Dosing Weight 50, kg, Start date: 08/28/16 9:00:00 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, Duration: 30 day, Stop date: 09/26/16 9:00:00 CSTNotes: (Same as: Potassium Chloride) No Longer Active 08/28/2016 [facility] potassium phosphate + sodium chloride 0.9% INJ 250 mL 45 mmol, 15 mL, Route: IVPB, ONCE, Dosing Weight 50, kg, Start date: 08/28/16 7:56:00 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, Stop date: 08/28/16 7:56:00 CSTNotes: (Same as: K Phosphate.) 1 mMol phoshate has 1.47 mEq potassium Infuse over 4 hours Inactive 08/28/2016 [facility] potassium chloride 40 mEq, 30 mL, Route: PO, Drug form: LIQ, ONCE, Dosing Weight 50, kg, Start date: 08/27/16 9:30:00 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, Stop date: 08/27/16 9:30:00 CSTNotes: (Same as: Potassium Chloride) Inactive 08/27/2016 [facility] potassium chloride 10 mEq, Route: IVPB, Q1H, Dosing Weight 50, kg, Total Dose=40 meq, Start date: 08/27/16 8:00:00 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, Duration: 4 doses or times, Stop date: 08/27/16 11:00:00 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, Peripheral Line Inactive 08/27/2016 [facility] potassium chloride 40 mEq, 2 tab, Route: PO, Drug form: ERTAB, ONCE, Dosing Weight 50, kg, Start date: 08/27/16 7:36:00 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, Stop date: 08/27/16 7:36:00 CSTNotes: (Same as: K-Dur 20) "Do Not Crush" With food and full glass of water Inactive 08/27/2016 [facility] potassium chloride 40 mEq, 2 tab, Route: PO, Drug form: ERTAB, ONCE, Dosing Weight 50, kg, Start date: 08/26/16 16:31:00 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, Stop date: 08/26/16 16:31:00 CSTNotes: (Same as: K-Dur 20) "Do Not Crush" With food and full glass of water Inactive 08/26/2016 [facility] potassium chloride 10 mEq, 50 mL, Route: IVPB, Drug form: INJ, Q1H, Dosing Weight 50, kg, Total Dose=40 meq, Start date: 08/26/16 9:00:00 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, Duration: 4 doses or times, Stop date: 08/26/16 12:00:00 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, Peripheral LineNotes: (Same as: KCL) Inactive 08/26/2016 [facility] NS + KCL 20mEq/L 1000ml (Premix) 1,000 mL 1,000 mL, Rate: 125 ml/hr, Infuse over: 8 hr, Route: IV, Dosing Weight 50 kg, Total Volume: 1,000, Start date: 08/26/16 8:09:00 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, Duration: 30 day, Stop date: 09/25/16 8:08:00 CSTNotes: PREMIX IV - Do Not Alter WASTE: F/P - Sink; E - Municipal Trash Bin No Longer Active 08/26/2016 [facility] potassium chloride 20 mEq, 100 mL, Route: IVPB, Drug form: INJ, Q2H, Dosing Weight 50, kg, Total Dose=40 meq, Start date: 08/25/16 18:00:00 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, Duration: 2 doses or times, Stop date: 08/25/16 20:00:00 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, Peripheral LineNotes: (Same as: KCL) Infuse no faster than 10 mEq/hr if given peripherally. Inactive 08/26/2016 [facility] potassium chloride 20 mEq, 100 mL, Route: IVPB, Drug form: INJ, Q2H, Dosing Weight 50, kg, Total dose=60 mEq, Start date: 08/25/16 6:00:00 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, Duration: 3 doses or times, Stop date: 08/25/16 10:00:00 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, Central L ineNotes: (Same as: KCL) Infuse no faster than 10 mEq/hr if given peripherally. Inactive 08/25/2016 [facility] Insulin, Aspart, Human 3 unit, 0.03 mL, Route: SUB-Q, Drug form: SOLN, TID-Before Meals, Dosing Weight 50, kg, PRN Blood Glucose Results, Start date: 08/24/16 18:07:00 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, Duration: 30 day, Stop date: 09/23/16 18:06:00 CSTNotes: Roll in palms of hands gently; Do not shake vigorously. (Same as: NovoLOG) "single patient use only" WASTE: F/P - Black; E - Municipal Trash Bin Stable for 28 days at room temperature. Expires in days from Date No Longer Active 08/25/2016 [facility] Dextrose 50% Syringe 12.5 gm, 25 mL, Route: IVP, Drug Form: INJ, Dosing Weight 50, kg, PRN, PRN Blood Glucose Results, Start date: 08/24/16 18:07:00 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, Duration: 30 day, Stop date: 09/23/16 18:06:00 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 No Longer Active 08/25/2016 [facility] Glucagon 1 mg, Route: IM, Drug form: PDR/INJ, PRN, Dosing Weight 50, kg, PRN Blood Glucose Results, Start date: 08/24/16 18:07:00 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, Duration: 30 day, Stop date: 09/23/16 18:06:00 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 No Longer Active 08/25/2016 [facility] sodium chloride 0.9% 1000 ml INJ 1,000 mL 1,000 mL, Rate: 150 ml/hr, Infuse over: 6.7 hr, Route: IV, Dosing Weight 50 kg, Total Volume: 1,000, Start date: 08/24/16 18:01:00 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, Duration: 30 day, Stop date: 09/23/16 18:00:00 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 No Longer Active 08/25/2016 [facility] Maxipime 1 gm, Route: IVPB, Drug form: INJ, [id number], Start date: 08/24/16 18:00:00 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, Duration: 30 day, Stop date: 09/23/16 10:00:00 CSTNotes: (Same As: Maxipime) MEDICATION WASTE Product Size: 1000 mg Product Wasted: ___ mg No Longer Active 08/25/2016 [facility] pantoprazole 40 mg, Route: IVP, Drug form: INJ, Before Dinner, Dosing Weight 50, kg, Start date: 08/24/16 16:30:00 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, Duration: 30 day, Stop date: 09/22/16 16:30:00 CSTNotes: (Same as: Protonix) No Longer Active 08/24/2016 [facility] Flumazenil 0.2 mg, Route: IVP, PRN, Dosing Weight 50, kg, PRN Benzodiazepine Reversal, Initial dose, Start date: 08/24/16 15:59:00 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, Duration: 30 day, Stop date: 09/23/16 15:58:00 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 Inactive 08/24/2016 [facility] Hydromorphone 0.5 mg, Route: IVP, Q5Min, Dosing Weight 50, kg, PRN Pain Score 7-10, Start date: 08/24/16 15:59:00 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, Duration: 4 doses or times, Stop date: Limited # of times Inactive 08/24/2016 [facility] Oxycodone 10 mg, Route: PO, Drug form: TAB, Q4H, Dosing Weight 50, kg, PRN Pain Score 7-10, Start date: 08/24/16 15:59:00 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, Duration: 30 day, Stop date: 09/23/16 15:58:00 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 Inactive 08/24/2016 [facility] Naloxone 0.4 mg, Route: IVP, Q2MIN, Dosing Weight 50, kg, PRN Narcotic Reversal, Start date: 08/24/16 15:59:00 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, Duration: 8 doses or times, Stop date: Limited # of times Inactive 08/24/2016 [facility] Ondansetron 4 mg, Route: IVP, ONCE, Dosing Weight 50, kg, PRN Nausea & Vomiting, Start date: 08/24/16 15:59:00 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 Inactive 08/24/2016 [facility] Metoprolol 2 mg, Route: IVP, Q5Min, Dosing Weight 50, kg, PRN Other -See Comment, Start date: 08/24/16 15:59:00 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, Duration: 3 doses or times, Stop date: Limited # of times Inactive 08/24/2016 [facility] potassium chloride 20 mEq, 100 mL, Route: IVPB, Drug form: INJ, Q2H, Start date: 08/24/16 10:00:00 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, Duration: 2 doses or times, Stop date: 08/24/16 12:00:00 CSTNotes: (Same as: KCL) Infuse no faster than 10 mEq/hr if given peripherally. Inactive 08/24/2016 [facility] potassium chloride 10 mEq, Route: IVPB, Q1H, Dosing Weight 50, kg, Total Dose=40 meq, Start date: 08/24/16 9:00:00 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, Duration: 4 doses or times, Stop date: 08/24/16 12:00:00 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, Peripheral Line Inactive 08/24/2016 [facility] Propranolol 20 mg, 1 tab, Route: PO, Drug form: TAB, TID, Dosing Weight 50, kg, Start date: 08/24/16 9:00:00 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, Duration: 30 day, Stop date: 09/22/16 17:00:00 CSTNotes: Give with food. (Same as: Inderal) No Longer Active 08/24/2016 [facility] Magnesium Oxide 400 mg, 1 tab, Route: PO, Drug form: TAB, TID, Dosing Weight 50, kg, Start date: 08/24/16 9:00:00 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, Duration: 30 day, Stop date: 09/22/16 17:00:00 CSTNotes: (Same as: Mag-Ox 400) Magnesium oxide 4 [id number] elemental magnesium Dose=____mg magnesium oxide (___mg elemental magnesium) No Longer Active 08/24/2016 [facility] Potassium Chloride 1.33 MEQ/ML Oral Solution 40 mEq, 30 mL, Route: PO, Drug form: LIQ, Daily, Dosing Weight 50, kg, Start date: 08/24/16 9:00:00 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, Duration: 30 day, Stop date: 09/22/16 9:00:00 CSTNotes: (Same as: Potassium Chloride) Inactive 08/24/2016 [facility] Methimazole 10 mg, 1 tab, Route: PO, Drug form: TAB, Q8H, Dosing Weight 50, kg, Start date: 08/24/16 0:00:00 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, Duration: 30 day, Stop date: 09/22/16 16:00:00 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 No Longer Active 08/24/2016 [facility] Vancomycin 1.25 gm, Route: IVPB, [id number], Dosing Weight 50, kg, Start date: 08/23/16 21:00:00 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, Stop date: 09/22/16 17:00:00 CSTNotes: TIME CRITICAL MEDICATION (Same As: Vancocin) Infusion rate 2001 mg: infuse over 2.5 hours MEDICATION WASTE Product Size: 1000 mg Product Wasted: ___ mg No Longer Active 08/24/2016 [facility] Enoxaparin 40 mg, 0.4 mL, Route: SUB-Q, Drug form: INJ, [id number], Dosing Weight 50, kg, Start date: 08/23/16 21:00:00 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, Duration: 30 day, Stop date: 09/21/16 21:00:00 CSTNotes: (Same as: Lovenox) No Longer Active 08/24/2016 [facility] cefepime 1 gm, Route: IVPB, Drug form: INJ, [id number], Dosing Weight 50, kg, (CrCl 30 - 49 ml/min), Start date: 08/23/16 21:00:00 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, Duration: 30 day, Stop date: 09/22/16 9:00:00 CSTNotes: (Same As: Maxipime) MEDICATION WASTE Product Size: 1000 mg Product Wasted: __0_ mg No Longer Active 08/24/2016 [facility] Albuterol 0.833 MG/ML / Ipratropium Madelia 0.167 MG/ML Inhalant Solution 3 mL, Route: NEB, Drug Form: SOLN, Dosing Weight 50, kg, Q6H, PRN Shortness of breath, Start date: 08/23/16 20:14:00 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, Duration: 30 day, Stop date: 09/22/16 20:13:00 CSTNotes: (Same as: Duoneb) No Longer Active 08/24/2016 [facility] Ondansetron 4 mg, 2 mL, Route: IVP, Drug form: INJ, Q6H, Dosing Weight 50, kg, PRN Nausea, Start date: 08/23/16 20:08:00 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, Duration: 30 day, Stop date: 09/22/16 20:07:00 CSTNotes: (Same as: Zofran) MEDICAT ION WASTE Product Size: 4 mg Product Wasted: _0__ mg No Longer Active 08/24/2016 [facility] Hydromorphone 0.5 mg, 0.25 mL, Route: IV, Drug form: INJ, Q3H, Dosing Weight 50, kg, PRN Pain Score 4-6, Start date: 08/23/16 20:05:00 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, Duration: 30 day, Stop date: 09/22/16 20:04:00 CSTNotes: Same as Dilaudid No Longer Active 08/24/2016 [facility] propranolol 20 mg oral tablet 20 mg=1 tab, PO, TID, 0 Refill(s) On Hold 08/23/2016 [facility] pantoprazole 40 mg intravenous injection 40 mg, IVP, Before Dinner, 0 Refill(s) On Hold 08/23/2016 [facility] ondansetron 2 mg/mL injectable solution 4 mg=2 mL, IVP, Q6H, PRN Nausea, 0 Refill(s) On Hold 08/23/2016 [facility] magnesium sulfate 2 g/50 mL-sterile water intravenous solution 2 gm=50 mL, IV, ONCE, 0 Refill(s) On Hold 08/23/2016 [facility] Morphine 2 mg=0.5 mL, IV, Q4H, PRN Pain Score 4-6, 0 Refill(s) On Hold 08/23/2016 [facility] hydromorphone 100 mg/100 mL-NaCl 0.9% intravenous solution 0.5 mg=0.5 mL, IV, Q3H, PRN Pain Score 4-6, 0 Refill(s) On Hold 08/23/2016 [facility] Acetaminophen 325 MG / Hydrocodone Bitartrate 5 MG Oral Tablet [Douglas 5/325] 1 tab, PO, Q6H, PRN Pain Score 1-3, 0 Refill(s) On Hold 08/23/2016 [facility] Magnesium Sulfate 2 gm, 50 mL, Route: IV, Drug form: INJ, ONCE, Dosing Weight 50.909, kg, Start date: 08/23/16 14:32:00 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, Stop date: 08/23/16 14:32:00 CSTNotes: WASTE: F/P - Sink; E - Municipal Trash Bin Inactive 08/23/2016 [facility] potassium chloride 10 mEq, 100 mL, Route: IVPB, Drug form: INJ, Q1H, Dosing Weight 50.909, kg, Total Dose=60 meq, Start date: 08/23/16 7:00:00 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, Duration: 6 doses or times, Stop date: 08/23/16 12:00:00 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, Peripheral LineNotes: Infuse at a rate of 10 mEq/hr. (Same as: KCL) Inactive 08/23/2016 [facility] potassium chloride 40 mEq, 30 mL, Route: DHT, Drug form: LIQ, ONCE, Dosing Weight 50.909, kg, Start date: 08/23/16 6:24:00 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, Stop date: 08/23/16 6:24:00 CSTNotes: (Same as: Potassium Chloride) Inactive 08/23/2016 [facility] Propranolol 20 mg, 1 tab, Route: PO, Drug form: TAB, TID, Dosing Weight 50.909, kg, Start date: 08/22/16 16:00:00 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, Duration: 30 day, Stop date: 09/21/16 8:00:00 CSTNotes: Give with food. (Same as: Inderal) No Longer Active 08/22/2016 [facility] potassium chloride 40 mEq, 30 mL, Route: NG, Drug form: LIQ, Q2H, Dosing Weight 50.909, kg, Start date: 08/22/16 12:00:00 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, Duration: 2 doses or times, Stop date: 08/22/16 14:00:00 CSTNotes: (Same as: Potassium Chloride) Inactive 08/22/2016 [facility] WAIT for vanc trough draw on 08/22 AM WAIT for vanc trough draw on 08/22 AM, reminder, Drug form: MISC, Route: MISC, ONCE, 08/22/16 9:00:00 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, Stop date: 08/22/16 9:00:00 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 Inactive 08/22/2016 [facility] D5W 1/2NS + KCL 40mEq/L 1000ml (Premix) 1,000 mL 1,000 mL, Rate: 75 ml/hr, Infuse over: 13.3 hr, Route: IV, Dosing Weight 50.909 kg, Total Volume: 1,000, Start date: 08/22/16 7:00:00 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, Duration: 30 day, Stop date: 09/21/16 6:59:00 CSTNotes: PREMIX IV - Do Not Alter WASTE: F/P - Sink; E - Municipal Trash Bin No Longer Active 08/22/2016 [facility] Propranolol 20 mg, 1 tab, Route: PO, Drug form: TAB, Q12H, Dosing Weight 50.909, kg, Priority: NOW, Start date: 08/21/16 10:05:00 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, Duration: 30 day, Stop date: 09/20/16 9:00:00 CSTNotes: Give with food. (Same as: Inderal) No Longer Active 08/21/2016 [facility] sodium chloride 0.9% 1000 ml INJ 1,000 mL 1,000 mL, Rate: 1000 ml/hr, Infuse over: 1 hr, Route: IV, Dosing Weight 51.165 kg, Total Volume: 1,000, Start date: 08/20/16 22:49:00 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, Duration: 1 doses or times, Stop date: 08/20/16 23:48:00 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 Inactive 08/21/2016 [facility] Metoprolol 5 mg, 5 mL, Route: IVP, Drug form: INJ, Q4H, Dosing Weight 51.165, kg, Start date: 08/20/16 20:00:00 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, Duration: 30 day, Stop date: 09/19/16 16:00:00 CSTNotes: (Same as: Lopressor) Push over 2 minutes No Longer Active 08/21/2016 [facility] Zofran 4 mg, 2 mL, Route: IVP, Drug form: INJ, Q6H, Dosing Weight 51.165, kg, PRN Nausea, Start date: 08/20/16 19:06:00 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, Duration: 30 day, Stop date: 09/19/16 19:05:00 CSTNotes: (Same as: Zofran) MEDICATION WASTE Product Size: 4 mg Product Wasted: ___ mg No Longer Active 08/21/2016 [facility] Zofran 4 mg, Route: IVP, Drug form: INJ, Q8H, Dosing Weight 51.165, kg, PRN Nausea, Start date: 08/20/16 19:03:00 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, Duration: 30 day, Stop date: 09/19/16 19:02:00 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 Inactive 08/21/2016 [facility] Insulin, Aspart, Human 10 unit, 0.1 mL, Route: SUB-Q, Drug form: SOLN, Sliding Scale, Dosing Weight 51.165, kg, PRN Blood Glucose Results, Start date: 08/20/16 16:32:00 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, Duration: 30 day, Stop date: 09/19/16 16:31:00 CSTNotes: Roll in palms of hands gently; Do not shake vigorously. (Same as: NovoLOG) "single patient use only" WASTE: F/P - Black; E - Municipal Trash Bin Stable for 28 days at room temperature. Expires in days from Date No Longer Active 08/20/2016 [facility] Dextrose 50% Syringe 12.5 gm, 25 mL, Route: IVP, Drug Form: INJ, Dosing Weight 51.165, kg, PRN, PRN Blood Glucose Results, Start date: 08/20/16 16:32:00 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, Duration: 30 day, Stop date: 09/19/16 16:31:00 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 No Longer Active 08/20/2016 [facility] Glucagon 1 mg, Route: IM, Drug form: PDR/INJ, PRN, Dosing Weight 51.165, kg, PRN Blood Glucose Results, Start date: 08/20/16 16:32:00 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, Duration: 30 day, Stop date: 09/19/16 16:31:00 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 No Longer Active 08/20/2016 [facility] Sodium Chloride 0.154 MEQ/ML Injectable Solution 1,000 mL, Rate: 25 ml/hr, Infuse over: 40 hr, Route: IV, Dosing Weight 51.165 kg, Total Volume: 1,000, Start date: 08/20/16 13:32:00 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, Duration: 1 day, Stop date: 08/21/16 13:31:00 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 Inactive 08/20/2016 [facility] Metoprolol 5 mg, 5 mL, Route: IVP, Drug form: INJ, Q6H, Dosing Weight 51.165, kg, Hold if sBPNotes: (Same as: Lopressor) Push over 2 minutes Inactive 08/20/2016 [facility] sodium chloride 0.9% 1000 ml INJ 1,000 mL 1,000 mL, Rate: 41.67 ml/hr, Infuse over: 24 hr, Route: IV, Dosing Weight 51.165 kg, Total Volume: 1,000, Start date: 08/20/16 8:57:00 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, Duration: 30 day, Stop date: 09/19/16 8:56:00 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 Inactive 08/20/2016 [facility] potassium chloride 10 mEq, 100 mL, Route: IVPB, Drug form: INJ, Q1H, Dosing Weight 51.165, kg, Total Dose=40 meq, Start date: 08/19/16 18:00:00 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, Duration: 4 doses or times, Stop date: 08/19/16 21:00:00 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, Peripheral LineNotes: Infuse at a rate of 10 mEq/hr. (Same as: KCL) Inactive 08/20/2016 [facility] Vancomycin 1,250 mg, Route: IVPB, [id number], Dosing Weight 51.165, kg, Start date: 08/19/16 9:00:00 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, Stop date: 09/18/16 2:00:00 CSTNotes: TIME CRITICAL MEDICATION (Same As: Vancocin) Infusion rate 2001 mg: infuse over 2.5 hours MEDICATION WASTE Product Size: 1000 mg Product Wasted: ___ mg No Longer Active 08/19/2016 [facility] vancomycin + sodium chloride 0.9% INJ 250 mL 1 gm, Route: IVPB, [id number], Dosing Weight 51.165, kg, Start date: 08/19/16 0:30:00 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, Duration: 30 day, Stop date: 09/17/16 16:30:00 CSTNotes: TIME CRITICAL MEDICATION (Same As: Vancocin) Infusion rate 2001 mg: infuse over 2.5 hours MEDICATION WASTE Product Size: 1000 mg Product Wasted: ___ mg Inactive 08/19/2016 [facility] *RN - PLEASE DO NOT GIVE VANCO UNTIL TROUGH IS DRAWN * *RN - PLEASE DO NOT GIVE VANCO UNTIL TROUGH IS DRAWN *, REMINDER, Drug form: MISC, Route: MISC, Daily, 08/18/16 23:00:00 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, Duration: 2 hr, Stop date: 08/18/16 23:00:00 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 Inactive 08/19/2016 [facility] D5W 1/2NS 1,000 mL 1,000 mL, Rate: 75 ml/hr, Infuse over: 13.3 hr, Route: IV, Dosing Weight 51.165 kg, Total Volume: 1,000, Start date: 08/18/16 19:47:00 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, Stop date: 09/17/16 19:46:00 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 No Longer Active 08/19/2016 [facility] Metoprolol 5 mg, 5 mL, Route: IV, Drug form: INJ, ONCE, Dosing Weight 51.165, kg, Start date: 08/18/16 19:47:00 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, Stop date: 08/18/16 19:47:00 CSTNotes: (Same as: Lopressor) Push over 2 minutes Inactive 08/19/2016 [facility] cefepime 1 gm, Route: IVPB, [id number], Dosing Weight 51.165, kg, Start date: 08/18/16 4:00:00 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, Stop date: 09/16/16 16:00:00 CSTNotes: (Same As: Maxipime) MEDICATION WASTE Product Size: 1000 mg Product Wasted: ___ mg No Longer Active 08/18/2016 [facility] Dilaudid 0.5 mg, 0.5 mL, Route: IV, Drug form: INJ, Q3H, Dosing Weight 51.165, kg, PRN Pain Score 4-6, Start date: 08/18/16 2:18:00 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, Duration: 30 day, Stop date: 09/17/16 2:17:00 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 No Longer Active 08/18/2016 [facility] Methimazole 10 mg, 1 tab, Route: PO, Drug form: TAB, Q8H, Dosing Weight 51.165, kg, Start date: 08/18/16 0:00:00 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, Duration: 30 day, Stop date: 09/16/16 16:00:00 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 No Longer Active 08/18/2016 [facility] Vancomycin 1.25 gm, 250 mL, Route: IVPB, Drug form: INJ, ABXQ8H, Dosing Weight 51.165, kg, Start date: 08/18/16 0:00:00 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, Duration: 30 day, Stop date: 09/16/16 16:00:00 CSTNotes: TIME CRITICAL MEDICATION Same as: Vancocin-NS (premixed) Infusion rate 2001 mg: infuse over 2.5 hours No Longer Active 08/18/2016 [facility] insulin detemir 10 unit, 0.1 mL, Route: SUB-Q, Drug form: INJ, Q12H, Dosing Weight 51.165, kg, Start date: 08/17/16 22:00:00 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, Duration: 30 day, Stop date: 09/16/16 21:00:00 CSTNotes: Same as Levemir Do not hold insulin without contacting prescriber WASTE: F/P - Black; E - Municipal Trash Bin "single patient use only" No Longer Active 08/18/2016 [facility] Lovenox 40 mg, 0.4 mL, Route: SUB-Q, Drug form: INJ, [id number], Dosing Weight 51.165, kg, Start date: 08/17/16 22:00:00 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, Duration: 30 day, Stop date: 09/15/16 22:00:00 CSTNotes: (Same as: Lovenox) No Longer Active 08/18/2016 [facility] metoprolol tartrate 25 mg, 1 tab, Route: PO, Drug form: TAB, Q12H, Dosing Weight 51.165, kg, Start date: 08/17/16 22:00:00 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, Duration: 30 day, Stop date: 09/16/16 21:00:00 CSTNotes: (Same as: Lopressor) No Longer Active 08/18/2016 [facility] Protonix 40 mg, Route: IVP, Drug form: INJ, Before Dinner, Dosing Weight 51.165, kg, Start date: 08/17/16 22:00:00 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, Duration: 30 day, Stop date: 09/16/16 16:30:00 CSTNotes: For IV push reconstitute with 10 ml 0.9% sodium chloride and push over 2 minutes. (Same as: Protonix) No Longer Active 08/18/2016 [facility] Vancomycin 1 ea, Route: MISC, Dosing Weight 51.165, kg, ONCALL, Start date: 08/17/16 22:00:00 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, Duration: 1 doses or times, Pharmacy to dose Inactive 08/18/2016 [facility] Acetaminophen 325 MG / Hydrocodone Bitartrate 5 MG Oral Tablet [Douglas 5/325] 1 tab, Route: PO, Drug Form: TAB, Dosing Weight 51.165, kg, Q6H, PRN Pain Score 1-3, Start date: 08/17/16 21:13:00 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, Duration: 30 day, Stop date: 09/16/16 21:12:00 CSTNotes: (Same as: Douglas 325/5) Do not exceed 4gm/day of acetaminophen. No Longer Active 08/18/2016 [facility] Dilaudid 0.5 mg, 0.5 mL, Route: IVP, Drug form: INJ, Q4H, Dosing Weight 51.165, kg, PRN Pain Score 7-10, Start date: 08/17/16 21:13:00 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, Duration: 30 day, Stop date: 09/16/16 21:12:00 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 No Longer Active 08/18/2016 [facility] Insulin, Aspart, Human 2 unit, 0.02 mL, Route: SUB-Q, Drug form: SOLN, TID-Before Meals, Dosing Weight 51.165, kg, PRN Blood Glucose Results, Start date: 08/17/16 21:09:00 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, Duration: 30 day, Stop date: 09/16/16 21:08:00 CSTNotes: Roll in palms of hands gently; Do not shake vigorously. (Same as: NovoLOG) "single patient use only" WASTE: F/P - Black; E - Municipal Trash Bin Stable for 28 days at room temperature. Expires in days from Date No Longer Active 08/18/2016 [facility] Dextrose 50% Syringe 12.5 gm, 25 mL, Route: IVP, Drug Form: INJ, Dosing Weight 51.165, kg, PRN, PRN Blood Glucose Results, Start date: 08/17/16 21:09:00 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, Duration: 30 day, Stop date: 09/16/16 21:08:00 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 No Longer Active 08/18/2016 [facility] Glucagon 1 mg, Route: IM, Drug form: PDR/INJ, PRN, Dosing Weight 51.165, kg, PRN Blood Glucose Results, Start date: 08/17/16 21:09:00 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, Duration: 30 day, Stop date: 09/16/16 21:08:00 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 (Same as: Tylenol) No Longer Active 08/18/2016 [facility] Morphine 2 mg, 0.5 mL, Route: IV, Drug form: SOLN, Q4H, Dosing Weight 51.165, kg, PRN Pain Score 4-6, Start date: 08/17/16 20:13:00 OPTICAL EFFECTS CAMERA OPERATOR, Duration: 30 day, Stop date: 09/16/16 20:12:00 CSTNotes: (Same as:MORPhine Sulfate) No Longer Active 08/18/2016 [facility] vancomycin 1.25 gm, 250 mL, Route: IVPB, Drug form: INJ, ABXQ8H, Start date: 08/17/16 16:00:00 OPTICAL EFFECTS CAMERA OPERATOR, Duration: 30 day, Stop date: 09/16/16 8:00:00 CSTNotes: TIME CRITICAL MEDICATION Same as: Vancocin-NS (premixed) Infusion rate 2001 mg: infuse over 2.5 hours Inactive 08/17/2016 [facility] insulin detemir 100 units/mL subcutaneous solution 15 unit, SUB-Q, Bedtime, 0 Refill(s) Active 08/16/2016 [facility] metoprolol tartrate 25 mg oral tablet 25 mg=1 tab, PO, Q12H, 0 Refill(s) Active 08/16/2016 [facility] lansoprazole 3 mg/mL oral suspension PO, Before Dinner, 0 Refill(s) Active 08/16/2016 [facility] Docusate Sodium 100 MG Oral Capsule 100 mg=1 cap, PO, BID, PRN Constipation, 0 Refill(s) Active 08/16/2016 [facility] Albuterol 0.833 MG/ML / Ipratropium Madelia 0.167 MG/ML Inhalant Solution 3 mL, NEB, Q6H, PRN Shortness of breath, 0 Refill(s) Active 08/16/2016 [facility] Potassium Chloride 1.33 MEQ/ML Oral Solution 40 mEq=30 mL, PO, Daily, 0 Refill(s) Active 08/16/2016 [facility] Acetaminophen 325 MG / Oxycodone Hydrochloride 5 MG Oral Tablet 2 tab, PO, Q6H, PRN Pain Score 4-6, 0 Refill(s) Active 08/16/2016 [facility] potassium chloride 10 mEq, 100 mL, Route: IVPB, Drug form: INJ, Q1H, Dosing Weight 60, kg, Total Dose=20 meq, Start date: 08/16/16 9:00:00 OPTICAL EFFECTS CAMERA OPERATOR, Duration: 2 doses or times, Stop date: 08/16/16 10:00:00 OPTICAL EFFECTS CAMERA OPERATOR, Peripheral LineNotes: Infuse at a rate of 10 mEq/hr. (Same as: KCL) Inactive 08/16/2016 [facility] vancomycin + sodium chloride 0.9% INJ 250 mL 1,000 mg, Route: IVPB, [id number], Start date: 08/16/16 1:00:00 OPTICAL EFFECTS CAMERA OPERATOR, Duration: 30 day, Stop date: 09/14/16 17:00:00 CSTNotes: TIME CRITICAL MEDICATION (Same As: Vancocin) Infusion rate 2001 mg: infuse over 2.5 hours MEDICATION WASTE Product Size: 1000 mg Product Wasted: ___ mg No Longer Active 08/16/2016 [facility] Lopressor 5 mg, 5 mL, Route: IVP, Drug form: INJ, Q12H, Start date: 08/15/16 23:31:00 OPTICAL EFFECTS CAMERA OPERATOR, Duration: 30 day, Stop date: 09/14/16 21:00:00 CSTNotes: (Same as: Lopressor) Push over 2 minutes No Longer Active 08/16/2016 [facility] D5W 1/2NS 1,000 mL 1,000 mL, Rate: 60 ml/hr, Infuse over: 16.7 hr, Route: IV, Dosing Weight 60 kg, Total Volume: 1,000, Start date: 08/15/16 15:29:00 OPTICAL EFFECTS CAMERA OPERATOR, Duration: 30 day, Stop date: 09/14/16 15:28:00 OPTICAL EFFECTS CAMERA OPERATOR No Longer Active 08/15/2016 [facility] sodium phosphate 30 mmol, 250 mL, Route: IVPB, Drug form: INJ, ONCE, Dosing Weight 60, kg, Start date: 08/15/16 12:22:00 OPTICAL EFFECTS CAMERA OPERATOR, Stop date: 08/15/16 12:22:00 OPTICAL EFFECTS CAMERA OPERATOR Inactive 08/15/2016 [facility] sodium phosphate 30 mmol, 250 mL, Route: IVPB, Drug form: INJ, PRN, Dosing Weight 60, kg, PRN Abnormal Lab Result, Start date: 08/15/16 9:14:00 OPTICAL EFFECTS CAMERA OPERATOR, Duration: 30 day, Stop date: 09/14/16 9:13:00 OPTICAL EFFECTS CAMERA OPERATOR Inactive 08/15/2016 [facility] metoprolol tartrate 25 mg, 1 tab, Route: PO, Drug form: TAB, Q12H, Dosing Weight 60, kg, Start date: 08/14/16 21:00:00 OPTICAL EFFECTS CAMERA OPERATOR, Duration: 30 day, Stop date: 09/13/16 9:00:00 CSTNotes: (Same as: Lopressor) No Longer Active 08/15/2016 [facility] albumin human 25% intravenous solution 25 gm, 100 mL, Route: IVPB, Drug form: INJ, ONCE, Dosing Weight 60, kg, Start date: 08/14/16 20:00:00 OPTICAL EFFECTS CAMERA OPERATOR, Stop date: 08/14/16 20:00:00 CSTNotes: Lot #: Mfg: (Same as: Plasbumin-25) "blood product derivative" WASTE: F/P - Red; E -Red MEDICATION WASTE Product Size: 25 gm Product Wasted: ___ gm Inactive 08/15/2016 [facility] Vancomycin 1 ea, Route: MISC, Dosing Weight 60, kg, ONCALL, Start date: 08/14/16 16:00:00 OPTICAL EFFECTS CAMERA OPERATOR, Duration: 1 doses or times, Pharmacy to dose Inactive 08/14/2016 [facility] VANCOMCYIN Pharmacy Dosing Protocol VANCOMCYIN Pharmacy Dosing Protocol, misc, Drug form: MISC, Route: MISC, ONCALL, 08/14/16 16:00:00 OPTICAL EFFECTS CAMERA OPERATOR, Duration: 30 day, Stop date: 09/13/16 15:59:00 OPTICAL EFFECTS CAMERA OPERATOR No Longer Active 08/14/2016 [facility] Sodium Chloride 0.154 MEQ/ML Injectable Solution 500 mL, 500 ml/hr, Infuse Over: 1 hr, Route: IV, 500, Drug form: INJ, ONCE, Priority: STAT, Dosing Weight 60 kg, Start date: 08/14/16 11:17:00 OPTICAL EFFECTS CAMERA OPERATOR, Duration: 1 doses or times, Stop date: 08/14/16 11:17:00 OPTICAL EFFECTS CAMERA OPERATOR Inactive 08/14/2016 [facility] albumin human 25% intravenous solution 25 gm, 100 mL, Route: IVPB, Drug form: INJ, Q6H, Dosing Weight 60, kg, Start date: 08/14/16 0:00:00 OPTICAL EFFECTS CAMERA OPERATOR, Duration: 6 doses or times, Stop date: 08/15/16 6:00:00 CSTNotes: Lot #: Mfg: (Same as: Plasbumin-25) "blood product derivative" WASTE: F/P - Red; E -Red MEDICATION WASTE Product Size: 25 gm Product Wasted: ___ gm Inactive 08/14/2016 [facility] vancomycin + sodium chloride 0.9% INJ 250 mL 1 gm, Route: IVPB, [id number], Dosing Weight 60, kg, Start date: 08/14/16 0:00:00 OPTICAL EFFECTS CAMERA OPERATOR, Duration: 30 day, Stop date: 09/12/16 12:00:00 CSTNotes: TIME CRITICAL MEDICATION (Same As: Vancocin) Infusion rate 2001 mg: infuse over 2.5 hours MEDICATION WASTE Product Size: 1000 mg Product Wasted: ___ mg No Longer Active 08/14/2016 [facility] cefepime + sodium chloride 0.9% INJ 100 mL 1 gm, Route: IVPB, [id number], Dosing Weight 60, kg, (CrCl >/=50 ml/min), Priority: Routine, Start date: 08/13/16 21:00:00 OPTICAL EFFECTS CAMERA OPERATOR, Duration: 30 day, Stop date: 09/12/16 13:00:00 CSTNotes: (Same As: Maxipime) MEDICATION WASTE Product Size: 1000 mg Product Wasted: ___ mg No Longer Active 08/14/2016 [facility] Trazodone 50 mg, 1 tab, Route: PO, Drug form: TAB, Bedtime, Dosing Weight 60, kg, PRN Insomnia, Start date: 08/13/16 19:03:00 OPTICAL EFFECTS CAMERA OPERATOR, Duration: 30 day, Stop date: 09/12/16 19:02:00 CSTNotes: (Same As: Desyrel) No Longer Active 08/14/2016 [facility] potassium phosphate 30 mmol, 250 mL, Route: IVPB, Drug form: INJ, ONCE, Dosing Weight 60, kg, Start date: 08/13/16 16:55:00 OPTICAL EFFECTS CAMERA OPERATOR, Stop date: 08/13/16 16:55:00 CSTNotes: (Same as: K Phosphate.) Inactive 08/13/2016 [facility] Magnesium Sulfate 2 gm, 50 mL, Route: IVPB, Drug form: INJ, ONCE, Dosing Weight 60, kg, Start date: 08/13/16 16:54:00 OPTICAL EFFECTS CAMERA OPERATOR, Duration: 2 hr, Stop date: 08/13/16 16:54:00 CSTNotes: WASTE: F/P - Sink; E - Municipal Trash Bin Inactive 08/13/2016 [facility] Vancomycin 1 ea, Route: MISC, Drug Form: INJ, Dosing Weight 60, kg, ONCALL, Start date: 08/13/16 15:00:00 OPTICAL EFFECTS CAMERA OPERATOR, Duration: 1 doses or times, Pharmacy to doseNotes: TIME CRITICAL MEDICATION (Same As: Vancocin) Infusion rate 2001 mg: infuse over 2.5 hours MEDICATION WASTE Product Size: 1000 mg Product Wasted: ___ mg No Longer Active 08/13/2016 [facility] cefepime 1 gm, Route: IVPB, [id number], Dosing Weight 60, kg, (CrCl >/=50 ml/min), Priority: STAT, Start date: 08/13/16 14:34:00 OPTICAL EFFECTS CAMERA OPERATOR, Duration: 30 day, Stop date: 09/12/16 5:00:00 CSTNotes: (Same As: Maxipime) MEDICATION WASTE Product Size: 1000 mg Product Wasted: ___ mg Inactive 08/13/2016 [facility] Potassium Chloride 1.33 MEQ/ML Oral Solution 40 mEq, 30 mL, Route: PO, Drug form: LIQ, Daily, Dosing Weight 60, kg, Start date: 08/13/16 9:00:00 OPTICAL EFFECTS CAMERA OPERATOR, Duration: 30 day, Stop date: 09/11/16 9:00:00 CSTNotes: (Same as: Potassium Chloride) No Longer Active 08/13/2016 [facility] Omnipaque 300 injectable solution 75 mL, Route: IVP, Drug Form: SOLN, Dosing Weight 60, kg, ONCALL, GFR > 45 mL/min, Start date: 08/13/16 8:00:00 OPTICAL EFFECTS CAMERA OPERATOR, Duration: 1 doses or timesNotes: (Same as:Omnipaque 300). WASTE: F/P - Black; E - Municipal Trash Bin Inactive 08/13/2016 [facility] Readi-Cat 2 450 mL, Route: PO, Drug Form: SUSP, ONCALL, Start date: 08/13/16 3:00:00 OPTICAL EFFECTS CAMERA OPERATOR, Duration: 30 day, Stop date: 09/12/16 2:59:00 CSTNotes: Same as Readi-Cat 2 Inactive 08/13/2016 [facility] potassium phosphate 15 mmol, 250 mL, Route: IVPB, Drug form: INJ, ONCE, Dosing Weight 60, kg, Start date: 08/12/16 16:15:00 OPTICAL EFFECTS CAMERA OPERATOR, Stop date: 08/12/16 16:15:00 CSTNotes: (Same as: K Phosphate) Inactive 08/12/2016 [facility] insulin detemir 15 unit, 0.15 mL, Route: SUB-Q, Drug form: INJ, Bedtime, Dosing Weight 49.5, kg, Start date: 08/11/16 21:00:00 OPTICAL EFFECTS CAMERA OPERATOR, Duration: 30 day, Stop date: 09/09/16 21:00:00 CSTNotes: Same as Levemir Do not hold insulin without contacting prescriber WASTE: F/P - Black; E - Municipal Trash Bin "single patient use only" No Longer Active 08/12/2016 [facility] potassium phosphate-sodium phosphate 250 mg-280 mg-160 mg oral powder for reconstitution 2 pkt, Route: PO, Drug Form: PDR/REC, Dosing Weight 60, kg, Q4H, Start date: 08/11/16 16:00:00 OPT[employer] EFFECTS CAMERA OPERATOR, Duration: 2 doses or times, Stop date: 08/11/16 20:00:00 CSTNotes: (Same as: Phos-NaK) Each 1.5 gm pkt has 250mg phosphorous. Mix w/2.5oz water and stir. Inactive 08/11/2016 [facility] Magnesium Sulfate 2 gm, 50 mL, Route: IVPB, Drug form: INJ, ONCE, Dosing Weight 60, kg, Start date: 08/11/16 15:59:00 OPT[employer] EFFECTS CAMERA OPERATOR, Duration: 2 hr, Stop date: 08/11/16 15:59:00 CSTNotes: WASTE: F/P - Sink; E - [employer] Trash Bin Inactive 08/11/2016 [facility] insulin detemir 10 unit, 0.1 mL, Route: SUB-Q, Drug form: INJ, Bedtime, Dosing Weight 49.5, kg, Start date: 08/10/16 21:00:00 OPTICAL EFFECTS CAMERA OPERATOR, Duration: 30 day, Stop date: 09/08/16 21:00:00 CSTNotes: Same as Levemir Do not hold insulin without contacting prescriber WASTE: F/P - Black; E - [facility] Trash Bin "single patient use only" No Longer Active 08/11/2016 [facility] Potassium Chloride 1.33 MEQ/ML Oral Solution 40 mEq, 30 mL, Route: NG, Drug form: LIQ, ONCE, Dosing Weight 60, kg, Start date: 08/10/16 15:32:00 OPTICAL EFFECTS CAMERA OPERATOR, Stop date: 08/10/16 15:32:00 CSTNotes: (Same as: Potassium Chloride) Inactive 08/10/2016 [facility] Potassium Chloride 1.33 MEQ/ML Oral Solution 40 mEq, 30 mL, Route: PO, Drug form: LIQ, ONCE, Dosing Weight 60, kg, Start date: 08/10/16 15:31:00 OPTICAL EFFECTS CAMERA OPERATOR, Stop date: 08/10/16 15:31:00 CSTNotes: (Same as: Potassium Chloride) Inactive 08/10/2016 [facility] Magnesium Sulfate 2 gm, 50 mL, Route: IVPB, Drug form: INJ, ONCE, Dosing Weight 60, kg, Total dose=2 gm, Start date: 08/10/16 15:30:00 OPTICAL EFFECTS CAMERA OPERATOR, Duration: 1 doses or times, Stop date: 08/10/16 15:30:00 CSTNotes: WASTE: F/P - Sink; E - [employer] Trash Bin Inactive 08/10/2016 [facility] Promethazine 25 mg, 1 mL, Route: IM, Drug form: INJ, Q4H, Dosing Weight 60, kg, PRN Nausea & Vomiting, Start date: 08/10/16 14:00:00 OPTICAL EFFECTS CAMERA OPERATOR, Duration: 30 day, Stop date: 09/09/16 13:59:00 CSTNotes: Do not give IV push. (Same as: Phenergan) No Longer Active 08/10/2016 [facility] Prevacid 30 mg, 10 mL, Route: PO, Drug form: SUSP, Before Dinner, Start date: 08/09/16 16:30:00 OPTICAL EFFECTS CAMERA OPERATOR, Duration: 30 day, Stop date: 09/07/16 16:30:00 CSTNotes: Take 1 hour before or 2 hours after meal; Expires in 14 days. Shake well before use. (Same as:Prevacid) Compounded Product - formulation not commercially available No Longer Active 08/09/2016 [facility] Protonix 40 mg, Route: NG, Drug form: GRAN/REC, Before Dinner, Dosing Weight 60, kg, Start date: 08/09/16 16:30:00 OPTICAL EFFECTS CAMERA OPERATOR, Duration: 30 day, Stop date: 09/07/16 16:30:00 OPTICAL EFFECTS CAMERA OPERATOR Inactive 08/09/2016 [facility] potassium phosphate 30 mmol, 250 mL, Route: IVPB, Drug form: INJ, ONCE, Dosing Weight 60, kg, Start date: 08/09/16 14:20:00 OPTICAL EFFECTS CAMERA OPERATOR, Stop date: 08/09/16 14:20:00 CSTNotes: (Same as: K Phosphate.) Inactive 08/09/2016 [facility] Fluconazole 200 mg, 100 mL, Route: IVPB, Drug form: INJ, [id number], Dosing Weight 60, kg, Priority: STAT, Start date: 08/08/16 18:27:00 OPTICAL EFFECTS CAMERA OPERATOR, Duration: 30 day, Stop date: 09/06/16 18:27:00 CSTNotes: (Same as: Diflu can) Do not refrigerate No Longer Active 08/09/2016 [facility] potassium chloride 20 mEq, 100 mL, Route: IVPB, Drug form: INJ, Q2H, Start date: 08/08/16 10:00:00 OPTICAL EFFECTS CAMERA OPERATOR, Duration: 3 doses or times, Stop date: 08/08/16 14:00:00 CSTNotes: (Same as: KCL) Infuse no faster than 10 mEq/hr if given peripherally. Inactive 08/08/2016 [facility] vancomycin + sodium chloride 0.9% INJ 250 mL 1,000 mg, Route: IVPB, [id number], Start date: 08/07/16 23:00:00 OPTICAL EFFECTS CAMERA OPERATOR, Stop date: 09/05/16 23:00:00 CSTNotes: TIME CRITICAL MEDICATION (Same As: Vancocin) Infusion rate 2001 mg: infuse over 2.5 hours MEDICATION WASTE Product Size: 1000 mg Product Wasted: ___ mg No Longer Active 08/08/2016 [facility] Vancomycin Pharmacy Following Vancomycin Pharmacy Following, 1 ea, Drug form: MISC, Route: MISC, PRN, PRN Other -See Comment, 08/07/16 22:50:00 OPTICAL EFFECTS CAMERA OPERATOR, Duration: 30 day, Stop date: 09/06/16 22:49:00 OPTICAL EFFECTS CAMERA OPERATOR No Longer Active 08/08/2016 [facility] Promethazine 25 mg, 1 mL, Route: IV Central, Drug form: INJ, Q4H, Dosing Weight 60, kg, PRN Nausea & Vomiting, Start date: 08/07/16 22:11:00 OPTICAL EFFECTS CAMERA OPERATOR, Duration: 30 day, Stop date: 09/06/16 22:10:00 CSTNotes: Do not gi ve IV push. (Same as: Phenergan) No Longer Active 08/08/2016 [facility] albumin human 25% intravenous solution 25 gm, 100 mL, Route: IVPB, Drug form: INJ, Q6H, Dosing Weight 60, kg, Start date: 08/07/16 0:00:00 OPTICAL EFFECTS CAMERA OPERATOR, Stop date: 08/08/16 18:00:00 CSTNotes: LOT#: Mfg: WASTE: F/P - Red; E -Red (Same as: Albuminar) "blood product derivative" No Longer Active 08/07/2016 [facility] Zosyn 3.375 gm, Route: IVPB, [id number], Dosing Weight 60, kg, CrCl >=20 ml/min infuse over 4 hours, Start date: 08/06/16 21:00:00 OPTICAL EFFECTS CAMERA OPERATOR, Duration: 30 day, Stop date: 09/05/16 13:00:00 CSTNotes: (Same as: Zosyn) Dosing based on Piperacillin component MEDICATION WASTE Product Size: 3375 mg Product Wasted: ___ mg No Longer Active 08/07/2016 [facility] Morphine 1 mg, 0.25 mL, Route: IVP, Drug form: SOLN, ONCE, Dosing Weight 60, kg, Start date: 08/06/16 17:45:00 OPTICAL EFFECTS CAMERA OPERATOR, Stop date: 08/06/16 17:45:00 CSTNotes: (Same as:MORPhine Sulfate) Inactive 08/06/2016 [facility] Omnipaque 300 injectable solution 75 mL, Route: IVP, Drug Form: SOLN, Dosing Weight 60, kg, ONCALL, GFR > 45 mL/min, STAT, Start date: 08/06/16 17:41:00 OPTICAL EFFECTS CAMERA OPERATOR, Duration: 1 doses or timesNotes: (Same as:Omnipaque 300). WASTE: F/P - Black; E - [employer] Trash Bin Inactive 08/06/2016 [facility] Zofran 4 mg, Route: IVP, Drug form: INJ, ONCE, Dosing Weight 60, kg, Start date: 08/06/16 17:25:00 OPTICAL EFFECTS CAMERA OPERATOR, Stop date: 08/06/16 17:25:00 OPTICAL EFFECTS CAMERA OPERATOR Inactive 08/06/2016 [facility] Fentanyl 25 microgram, Route: IV, ONCE, Dosing Weight 60, kg, Start date: 08/06/16 17:20:00 OPTICAL EFFECTS CAMERA OPERATOR, Stop date: 08/06/16 17:20:00 OPTICAL EFFECTS CAMERA OPERATOR Inactive 08/06/2016 [facility] Fentanyl 25 microgram, Route: IV, ONCE, Dosing Weight 60, kg, Start date: 08/06/16 16:30:00 OPTICAL EFFECTS CAMERA OPERATOR, Stop date: 08/06/16 16:30:00 OPTICAL EFFECTS CAMERA OPERATOR Inactive 08/06/2016 [facility] Sodium Chloride 0.154 MEQ/ML Injectable Solution 100 mL, Rate: 10 ml/hr, Infuse over: 10 hr, Route: IVPB, Dosing Weight 60 kg, Total Volume: 100, Infuse at 8 mg / hr for 72 hours for GI bleeding, Start date: 08/06/16 16:13:00 OPTICAL EFFECTS CAMERA OPERATOR, Duration: 72 hr, Stop date: 08/09/16 16:12:00 OPTICAL EFFECTS CAMERA OPERATOR No Longer Active 08/06/2016 [facility] Dilaudid 0.5 mg, 0.5 mL, Route: IVP, Drug form: INJ, Q3H, Dosing Weight 60, kg, PRN Pain Score 7-10, Start date: 08/05/16 12:14:00 OPTICAL EFFECTS CAMERA OPERATOR, Duration: 30 day, Stop date: 09/04/16 12:13:00 OPTICAL EFFECTS CAMERA OPERATOR No Longer Active 08/05/2016 [facility] Dilaudid 1 mg, Route: IVP, Q3H, Dosing Weight 60, kg, PRN Pain Score 7-10, Start date: 08/05/16 12:13:00 OPTICAL EFFECTS CAMERA OPERATOR, Duration: 30 day, Stop date: 09/04/16 12:12:00 OPTICAL EFFECTS CAMERA OPERATOR Inactive 08/05/2016 [facility] Flagyl 500 mg, 100 mL, Route: IVPB, Drug form: INJ, ABXQ8H, Dosing Weight 60, kg, Start date: 07/28/16 20:00:00 OPTICAL EFFECTS CAMERA OPERATOR, Duration: 30 day, Stop date: 08/27/16 12:00:00 CSTNotes: (Same as: Flagyl) Avoid alcohol. No Longer Active 07/29/2016 [facility] Omnipaque 300 injectable solution 75 mL, Route: IVP, Drug Form: SOLN, Dosing Weight 60, kg, ONCALL, GFR > 45 mL/min, STAT, Start date: 07/27/16 15:51:00 OPTICAL EFFECTS CAMERA OPERATOR, Duration: 1 doses or timesNotes: (Same as:Omnipaque 300). WASTE: F/P - Black; E - [employer] Trash Bin Inactive 07/27/2016 [facility] Rocephin 1 gm, Route: IVPB, [id number], Dosing Weight 60, kg, Start date: 07/23/16 11:00:00 OPTICAL EFFECTS CAMERA OPERATOR, Duration: 30 day, Stop date: 08/21/16 11:00:00 CSTNotes: (Same As: Rocephin). Use with 100 mL NS and infuse over 30 min MEDICATION WASTE Product Size: 1000 mg Product Wasted: ___ mg No Longer Active 07/23/2016 [facility] Sodium Chloride 0.9% IV 250 mL, Route: IVPB, Start date: 07/22/16 16:05:00 OPTICAL EFFECTS CAMERA OPERATOR, Duration: 30 day, Stop date: 09/20/16 16:04:00 OPTICAL EFFECTS CAMERA OPERATOR, PRN Line Flush No Longer Active 07/22/2016 [facility] BD Normal Saline Flush 10 mL, Route: IVP, Drug Form: INJ, PRN, PRN Line Flush, Start date: 07/22/16 16:05:00 OPTICAL EFFECTS CAMERA OPERATOR, Duration: 30 day, Stop date: 09/20/16 16:04:00 CSTNotes: (Same as: BD Posiflush) No Longer Active 07/22/2016 [facility] potassium chloride 20 mEq, 100 mL, Route: IVPB, Drug form: INJ, Q2H, Dosing Weight 60, kg, Total dose=40 mEq, Start date: 07/22/16 10:00:00 OPTICAL EFFECTS CAMERA OPERATOR, Duration: 2 doses or times, Stop date: 07/22/16 12:00:00 OPTICAL EFFECTS CAMERA OPERATOR, Central LineNotes: (Same as: KCL) Infuse no faster than 10 mEq/hr if given peripherally. Inactive 07/22/2016 [facility] acetaminophen-oxycodone 325 mg-5 mg oral tablet 2 tab, Route: PO, Drug Form: TAB, Q6H, PRN Pain Score 4-6, Start date: 07/22/16 10:00:00 OPTICAL EFFECTS CAMERA OPERATOR, Duration: 30 day, Stop date: 09/20/16 9:59:00 CSTNotes: Do not exceed 4gm/day of acetaminophen. (Same as: Percocet-5/325) No Longer Active 07/22/2016 [facility] Propranolol 40 mg, 1 tab, Route: PO, Drug form: TAB, QID, Dosing Weight 60, kg, Start date: 07/22/16 9:00:00 OPTICAL EFFECTS CAMERA OPERATOR, Duration: 30 day, Stop date: 08/20/16 21:00:00 CSTNotes: Give with food. (Same as: Inderal) No Longer Active 07/22/2016 [facility] Normodyne 20 mg, 4 mL, Route: IVP, Drug form: INJ, ONCE, Start date: 07/22/16 2:54:00 OPTICAL EFFECTS CAMERA OPERATOR, Stop date: 07/22/16 2:54:00 CSTNotes: (Same as: Normodyne, Trandate) Push over 2 minutes Give bolus over 2-3 minutes. Inactive 07/22/2016 [facility] Zosyn 3.375 gm, Route: IVPB, [id number], Dosing Weight 60, kg, Start date: 07/21/16 11:00:00 OPTICAL EFFECTS CAMERA OPERATOR, Duration: 30 day, Stop date: 08/20/16 5:00:00 CSTNotes: (Same as: Zosyn) Dosing based on Piperacillin component MEDICATION WASTE Product Size: 3375 mg Product Wasted: ___ mg No Longer Active 07/21/2016 [facility] acetaminophen-hydrocodone 325 mg-10 mg oral tablet 1 tab, Route: PO, Drug Form: TAB, Q6H, PRN Pain Score 4-6, Start date: 07/21/16 10:57:00 OPTICAL EFFECTS CAMERA OPERATOR, Duration: 30 day, Stop date: 08/20/16 10:56:00 CSTNotes: Do not exceed 4gm/day of acetaminophen. (Same as: Douglas 325/10) No Longer Active 07/21/2016 [facility] sodium chloride 0.9% 1000 ml INJ 1,000 mL 1,000 mL, Rate: 60 ml/hr, Infuse over: 16.7 hr, Route: IV, Dosing Weight 60 kg, Total Volume: 1,000, Start date: 07/21/16 10:41:00 OPTICAL EFFECTS CAMERA OPERATOR, Duration: 30 day, Stop date: 08/20/16 10:40:00 OPTICAL EFFECTS CAMERA OPERATOR Inactive 07/21/2016 [facility] Acetaminophen 325 MG / Oxycodone Hydrochloride 10 MG Oral Tablet 1 tab, Route: PO, Drug Form: TAB, Dosing Weight 60, kg, Q6H, PRN Pain Score 4-6, Start date: 07/21/16 10:17:00 OPTICAL EFFECTS CAMERA OPERATOR, Duration: 30 day, Stop date: 08/20/16 10:16:00 OPTICAL EFFECTS CAMERA OPERATOR Inactive 07/21/2016 [facility] potassium chloride 20 mEq, 100 mL, Route: IVPB, Drug form: INJ, Q2H, Dosing Weight 60, kg, Total dose=40 mEq, Start date: 07/21/16 10:00:00 OPTICAL EFFECTS CAMERA OPERATOR, Duration: 2 doses or times, Stop date: 07/21/16 12:00:00 OPTICAL EFFECTS CAMERA OPERATOR, Central LineNotes: (Same as: KCL) Infuse no faster than 10 mEq/hr if given peripherally. Inactive 07/21/2016 [facility] potassium chloride 20 mEq, 100 mL, Route: IVPB, Drug form: INJ, Q2H, Dosing Weight 60, kg, Total dose=40 mEq, Start date: 07/19/16 10:00:00 OPTICAL EFFECTS CAMERA OPERATOR, Duration: 2 doses or times, Stop date: 07/19/16 12:00:00 OPTICAL EFFECTS CAMERA OPERATOR, Central LineNotes: (Same as: KCL) Infuse no faster than 10 mEq/hr if given peripherally. Inactive 07/19/2016 [facility] potassium chloride 20 mEq oral tablet, extended release 40 mEq, 2 tab, Route: PO, Drug form: ERTAB, Daily, Dosing Weight 60, kg, Start date: 07/19/16 9:00:00 OPTICAL EFFECTS CAMERA OPERATOR, Duration: 30 day, Stop date: 08/17/16 9:00:00 CSTNotes: (Same as: K-Dur 20) "Do Not Crush" With food and full glass of water No Longer Active 07/19/2016 [facility] TPN solution, adult 1,130 mL 1,130 mL, Rate: 45 ml/hr, Infuse over: 25.1 hr, Route: IV, Dosing Weight 60 kg, Total Volume: 1,130, Start date: 07/18/16 22:00:00 OPTICAL EFFECTS CAMERA OPERATOR, Stop date: 08/17/16 21:59:00 CSTNotes: Per hospital policy, bag must be changed every 24hr. No Longer Active 07/19/2016 [facility] hydromorphone 0.5 mg, 0.5 mL, Route: IVP, Drug form: INJ, ONCE, Start date: 07/18/16 18:28:00 OPTICAL EFFECTS CAMERA OPERATOR, Stop date: 07/18/16 18:28:00 OPTICAL EFFECTS CAMERA OPERATOR Inactive 07/19/2016 [facility] Readi-Cat 2 450 mL, Route: PO, Drug Form: SUSP, ONCALL, Start date: 07/18/16 14:00:00 OPTICAL EFFECTS CAMERA OPERATOR, Duration: 30 day, Stop date: 08/17/16 13:59:00 CSTNotes: Same as Readi-Cat 2 Inactive 07/18/2016 [facility] Lasix 20 mg, 2 mL, Route: IVP, Drug form: INJ, Q12H, Dosing Weight 60, kg, Priority: NOW, Start date: 07/18/16 13:22:00 OPTICAL EFFECTS CAMERA OPERATOR, Duration: 30 day, Stop date: 08/17/16 9:00:00 CSTNotes: (Same as: Lasix) No Longer Active 07/18/2016 [facility] potassium chloride 20 mEq, 100 mL, Route: IVPB, Drug form: INJ, Q2H, Dosing Weight 60, kg, Total dose=40 mEq, Start date: 07/18/16 10:00:00 OPTICAL EFFECTS CAMERA OPERATOR, Duration: 2 doses or times, Stop date: 07/18/16 12:00:00 OPTICAL EFFECTS CAMERA OPERATOR, Central LineNotes: (Same as: KCL) Infuse no faster than 10 mEq/hr if given peripherally. Inactive 07/18/2016 [facility] Acetaminophen 300 MG / Codeine Phosphate 30 MG Oral Tablet [Tylenol with Codeine #3] 1 tab, Route: PO, Drug Form: TAB, Dosing Weight 60, kg, Q6H, PRN Pain Score 1-5, Start date: 07/17/16 15:43:00 OPTICAL EFFECTS CAMERA OPERATOR, Duration: 30 day, Stop date: 09/15/16 15:42:00 CSTNotes: Do not exceed 4gm/day of acet aminophen. (Same as: Tylenol with Codeine # 3) No Longer Active 07/17/2016 [facility] Hydromorphone 0.5 mg, 0.5 mL, Route: IV, Drug form: INJ, Q6H, Dosing Weight 65, kg, PRN Pain Score 6-10, Start date: 07/17/16 15:43:00 OPTICAL EFFECTS CAMERA OPERATOR, Duration: 30 day, Stop date: 08/16/16 15:42:00 OPTICAL EFFECTS CAMERA OPERATOR No Longer Active 07/17/2016 [facility] Lasix 20 mg, 2 mL, Route: IVP, Drug form: INJ, ONCE, Dosing Weight 143, kg, Start date: 07/16/16 16:13:00 OPTICAL EFFECTS CAMERA OPERATOR, Stop date: 07/16/16 16:13:00 CSTNotes: (Same as: Lasix) MEDICATION WASTE Product Size: 40 mg Product Wasted: ___ mg Inactive 07/16/2016 [facility] Imodium A-D 2 mg, 1 cap, Route: PO, Drug form: CAP, ONCE, Dosing Weight 143, kg, Start date: 07/16/16 16:00:00 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, Stop date: 07/16/16 16:00:00 CSTNotes: (Same as: Imodium) MAX adult dose is 8 caps/day Inactive 07/16/2016 [facility] Lasix 20 mg, 2 mL, Route: IVP, Drug form: INJ, ONCE, Dosing Weight 143, kg, Start date: 07/16/16 15:46:00 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, Stop date: 07/16/16 15:46:00 CSTNotes: (Same as: Lasix) Inactive 07/16/2016 [facility] Lasix 20 mg, 2 mL, Route: IVP, Drug form: INJ, ONCE, Dosing Weight 143, kg, Start date: 07/16/16 13:31:00 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, Stop date: 07/16/16 13:31:00 CSTNotes: (Same as: Lasix) Inactive 07/16/2016 [facility] Imodium A-D 2 mg, 1 cap, Route: PO, Drug form: CAP, ONCE, Dosing Weight 143, kg, Start date: 07/16/16 13:30:00 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, Stop date: 07/16/16 13:30:00 CSTNotes: (Same as: Imodium) MAX adult dose is 8 caps/day Inactive 07/16/2016 [facility] DuoNeb inhalation solution 3 mL, Route: NEB, Drug Form: SOLN, Q6H, PRN Shortness of breath, Start date: 07/15/16 17:49:00 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, Duration: 30 day, Stop date: 09/13/16 17:48:00 CSTNotes: (Same as: Duoneb) No Longer Active 07/15/2016 [facility] Metoprolol 5 mg, 5 mL, Route: IVP, Drug form: INJ, ONCE, Dosing Weight 143, kg, Start date: 07/15/16 13:43:00 OPTICAL EFFECTS CAMERA OPERATOR, Stop date: 07/15/16 13:43:00 CSTNotes: (Same as: Lopressor) Push over 2 minutes Inactive 07/15/2016 [facility] potassium chloride 10 mEq, 100 mL, Route: IVPB, Drug form: INJ, Q1H, Dosing Weight 143, kg, Total Dose=40 meq, Start date: 07/15/16 12:00:00 OPTICAL EFFECTS CAMERA OPERATOR, Duration: 4 doses or times, Stop date: 07/15/16 15:00:00 OPTICAL EFFECTS CAMERA OPERATOR, Peripheral LineNotes: Infuse at a rate of 10 mEq/hr. (Same as: KCL) Inactive 07/15/2016 [facility] Lasix 20 mg, 2 mL, Route: IV, Drug form: INJ, ONCE, Start date: 07/12/16 13:10:00 OPTICAL EFFECTS CAMERA OPERATOR, Stop date: 07/12/16 13:10:00 CSTNotes: (Same as: Lasix) Inactive 07/12/2016 [facility] loperamide 2 mg, 1 cap, Route: PO, Drug form: CAP, ONCE, Start date: 07/10/16 15:00:00 OPTICAL EFFECTS CAMERA OPERATOR, Stop date: 07/10/16 15:00:00 CSTNotes: (Same as: Imodium) MAX adult dose is 8 caps/day Inactive 07/10/2016 [facility] potassium chloride 10 mEq, 100 mL, Route: IVPB, Drug form: INJ, Q1H, Dosing Weight 65, kg, Total Dose=40 meq, Start date: 07/10/16 14:00:00 OPTICAL EFFECTS CAMERA OPERATOR, Duration: 4 doses or times, Stop date: 07/10/16 17:00:00 OPTICAL EFFECTS CAMERA OPERATOR, Peripheral LineNotes: Infuse at a rate of 10 mEq/hr. (Same as: KCL) Inactive 07/10/2016 [facility] potassium chloride 20 mEq, 100 mL, Route: IVPB, Drug form: INJ, Q2H, Start date: 07/08/16 11:30:00 OPTICAL EFFECTS CAMERA OPERATOR, Duration: 2 doses or times, Stop date: 07/08/16 13:30:00 CSTNotes: (Same as: KCL) Infuse no faster than 10 mEq/hr if given peripherally. Inactive 07/08/2016 [facility] potassium chloride 10 mEq, Route: IVPB, Q1H, Dosing Weight 65, kg, Total Dose=40 meq, Start date: 07/08/16 11:00:00 OPTICAL EFFECTS CAMERA OPERATOR, Duration: 4 doses or times, Stop date: 07/08/16 14:00:00 OPTICAL EFFECTS CAMERA OPERATOR, Peripheral Line Inactive 07/08/2016 [facility] potassium chloride 20 mEq oral tablet, extended release 20 mEq, 1 tab, Route: PO, Drug form: ERTAB, Daily, Dosing Weight 65, kg, Start date: 07/08/16 9:00:00 OPTICAL EFFECTS CAMERA OPERATOR, Duration: 30 day, Stop date: 08/06/16 9:00:00 CSTNotes: (Same as: K-Dur 20) "Do Not Crush" With food and full glass of water No Longer Active 07/08/2016 [facility] Tapazole 10 mg, 1 tab, Route: PO, Drug form: TAB, Q8H, Dosing Weight 49.5, kg, Start date: 07/07/16 9:30:00 OPTICAL EFFECTS CAMERA OPERATOR, Duration: 30 day, Stop date: 09/05/16 8:00:00 OPTICAL EFFECTS CAMERA OPERATOR No Longer Active 07/07/2016 [facility] fat emulsion, intravenous 250 mL, 31.25 ml/hr, Route: IV, Drug Form: INJ, Q-M-W-F, Start date: 07/06/16 22:00:00 OPTICAL EFFECTS CAMERA OPERATOR, Duration: 30 day, Stop date: 08/31/16 22:00:00 CSTNotes: (Same as: Intralipid, Liposyn) Infuse through a 1.2 micron filter No Longer Active 07/07/2016 [facility] TPN solution, adult 2,042 mL 2,042 mL, Rate: 83 ml/hr, Infuse over: 24.6 hr, Route: IV, Dosing Weight 65 kg, Total Volume: 2,042, Start date: 07/06/16 22:00:00 OPTICAL EFFECTS CAMERA OPERATOR, Stop date: 07/18/16 22:00:00 CSTNotes: Per hospital policy, bag must be changed every 24hr. No Longer Active 07/07/2016 [facility] pantoprazole 40 mg, 1 tab, Route: PO, Drug form: ECTAB, Before Dinner, Dosing Weight 49.5, kg, Start date: 07/06/16 16:30:00 OPTICAL EFFECTS CAMERA OPERATOR, Duration: 30 day, Stop date: 09/03/16 16:30:00 CSTNotes: Tablet should not be chewed or crushed. (Same as: Protonix) No Longer Active 07/06/2016 [facility] Hydromorphone 0.5 mg, 0.5 mL, Route: IV, Drug form: INJ, Q3H, Dosing Weight 65, kg, PRN Pain Score 6-10, Start date: 07/06/16 13:54:00 OPTICAL EFFECTS CAMERA OPERATOR, Duration: 30 day, Stop date: 08/05/16 13:53:00 OPTICAL EFFECTS CAMERA OPERATOR No Longer Active 07/06/2016 [facility] Morphine 30 mg, 30 mL, Route: IV, Initial Loading Dose: 2 mg, ADVERTISING SALES ASSISTANT Dose: 1 mg, ADVERTISING SALES ASSISTANT Lockout: 10 minutes, Continuous Basal Rate: 0 mg, 4 Hour Limit (In MG): 30, Drug Form: INJ, Continuous, Start date: 07/06/16 10: 00:00 OPTICAL EFFECTS CAMERA OPERATOR, Duration: 30 day, Stop date: 08/05/16...Notes: Dose: Delay: Basal rate: 4hr limit: (Same as:Franklyni-Mayi) Inactive 07/06/2016 [facility] potassium chloride 20 mEq, 100 mL, Route: IVPB, Drug form: INJ, Q2H, Dosing Weight 65, kg, Total dose=60 mEq, Start date: 07/06/16 10:00:00 OPTICAL EFFECTS CAMERA OPERATOR, Duration: 3 doses or times, Stop date: 07/06/16 14:00:00 OPTICAL EFFECTS CAMERA OPERATOR, Central LineNotes: (Same as: KCL) Infuse no faster than 10 mEq/hr if given peripherally. Inactive 07/06/2016 [facility] Naloxone 0.04 mg, 0.1 mL, Route: IVP, Drug form: INJ, Q2MIN, Dosing Weight 65, kg, PRN Narcotic Reversal, Start date: 07/06/16 9:42:00 OPTICAL EFFECTS CAMERA OPERATOR, Duration: 30 day, Stop date: 08/05/16 9:41:00 CSTNotes: Same as Narcan No Longer Active 07/06/2016 [facility] Magnesium Oxide 400 mg, 1 tab, Route: PO, Drug form: TAB, TID, Dosing Weight 49.5, kg, Start date: 07/06/16 9:00:00 OPTICAL EFFECTS CAMERA OPERATOR, Duration: 30 day, Stop date: 09/03/16 17:00:00 CSTNotes: (Same as: Mag-Ox 400) Magnesium oxide [id number] elemental magnesium Dose=____mg magnesium oxide (___mg elemental magnesium) No Longer Active 07/06/2016 [facility] Cholestyramine Resin 4 gm, 1 pkt, Route: PO, Drug form: PDR/REC, Daily, Dosing Weight 49.5, kg, Start date: 07/06/16 9:00:00 OPTICAL EFFECTS CAMERA OPERATOR, Duration: 30 day, Stop date: 09/03/16 9:00:00 CSTNotes: (Same As: Questran) No Longer Active 07/06/2016 [facility] Calcium Carbonate 500 MG Chewable Tablet 1,000 mg, 2 tab, Route: CHEW, Drug form: CHEWTAB, TID, Dosing Weight 49.5, kg, Start date: 07/06/16 9:00:00 OPTICAL EFFECTS CAMERA OPERATOR, Duration: 30 day, Stop date: 09/03/16 17:00:00 CSTNotes: (Same As: Tums) Calcium Carbonate 500 po=319 mg elemental calcium Dose= mg calcium carbonate ( mg elemental calcium) No Longer Active 07/06/2016 [facility] Magnesium Sulfate 1 gm, 2 mL, Route: IV, ONCE, Dosing Weight 65, kg, Priority: NOW, Start date: 07/06/16 8:23:00 OPTICAL EFFECTS CAMERA OPERATOR, Stop date: 07/06/16 8:23:00 CSTNotes: (Same as: MgSO4) WASTE: F/P - Sink; E - Municipal Trash Bin MEDICATION WASTE Product Size: 1000 mg Product Wasted: ___ mg Inactive 07/06/2016 [facility] Calcium Gluconate 2,000 mg, 20 mL, Route: IVPB, ONCE, Dosing Weight 65, kg, Start date: 07/06/16 8:23:00 OPTICAL EFFECTS CAMERA OPERATOR, Stop date: 07/06/16 8:23:00 CSTNotes: WASTE: F/P - Sink; E - Municipal Trash Bin Inactive 07/06/2016 [facility] Amylases 376041 UNT / Endopeptidases 65921 UNT / Lipase 53636 UNT Enteric Coated Capsule [Creon 24] 2 cap, Route: PO, Drug Form: DRC, Dosing Weight 49.5, kg, TID-Before Meals, Start date: 07/06/16 7:30:00 [employer] CAMERA OPERATOR, Duration: 30 day, Stop date: 09/03/16 16:30:00 CSTNotes: Same as: Creon DRC 24 : lipase 2 4,000 units, protease 76,000 units, amylase 120,000 units No Longer Active 07/06/2016 [facility] Methimazole 10 mg, 1 tab, Route: PO, Drug form: TAB, Q8H, Dosing Weight 49.5, kg, Start date: 07/06/16 0:00:00 [employer] CAMERA OPERATOR, Duration: 30 day, Stop date: 08/04/16 16:00:00 [employer] CAMERA OPERATOR No Longer Active 07/06/2016 [facility] Magnesium Oxide 400 mg, 1 tab, Route: PO, Drug form: TAB, TID, Dosing Weight 49.5, kg, Start date: 07/05/16 22:00:00 [employer] CAMERA OPERATOR, Duration: 30 day, Stop date: 08/04/16 14:00:00 CSTNotes: (Same as: Mag-Ox 400) Magnesium oxid e [id number] elemental magnesium Dose=____mg magnesium oxide (___mg elemental magnesium) Inactive 07/06/2016 [facility] fat emulsion, intravenous 250 mL IV, 31.25 ml/hr, Start date: 07/05/16 22:00:00 OPTICAL EFFECTS CAMERA OPERATOR, Duration: 8, 250 ml, 49.5Notes: (Same as: Intralipid, Liposyn) Infuse through a 1.2 micron filter Inactive 07/06/2016 [facility] Calcium Carbonate 1,000 mg, 2 tab, Route: CHEW, Drug form: CHEWTAB, TID, Dosing Weight 49.5, Start date: 07/05/16 22:00:00 OPTICAL EFFECTS CAMERA OPERATOR, Duration: 30 day, Stop date: 08/04/16 14:00:00 CSTNotes: (Same As: Tums) Calcium Carbonate 500 xt=003 mg elemental calcium Dose= mg calcium carbonate ( mg elemental calcium) Inactive 07/06/2016 [facility] TPN, adult solution 2,050 mL 2,050 mL, Rate: 83 ml/hr, Infuse over: 24.7 hr, Route: IV, Dosing Weight 49.5 kg, Total Volume: 2,050, Start date: 07/05/16 22:00:00 OPTICAL EFFECTS CAMERA OPERATOR, Duration: 1 day, Stop date: 07/06/16 21:59:00 OPTICAL EFFECTS CAMERA OPERATOR Inactive 07/06/2016 [facility] Levemir 10 unit, 0.1 mL, Route: SUB-Q, Drug form: INJ, Bedtime, Dosing Weight 49.5, kg, Start date: 07/05/16 21:00:00 OPTICAL EFFECTS CAMERA OPERATOR, Duration: 30 day, Stop date: 08/03/16 21:00:00 CSTNotes: Same as Levemir Do not hold insulin without contacting prescriber WASTE: F/P - Black; E - Municipal Trash Bin "single patient use only" Inactive 07/06/2016 [facility] Propranolol 40 mg, 1 tab, Route: PO, Drug form: TAB, QID, Dosing Weight 49.5, kg, Start date: 07/05/16 21:00:00 OPTICAL EFFECTS CAMERA OPERATOR, Duration: 30 day, Stop date: 08/04/16 17:00:00 CSTNotes: Give with food. (Same as: Inderal) No Longer Active 07/06/2016 [facility] insulin detemir 18 unit, 0.18 mL, Route: SUB-Q, Drug form: INJ, Bedtime, Dosing Weight 49.5, kg, Start date: 07/05/16 21:00:00 OPTICAL EFFECTS CAMERA OPERATOR, Duration: 30 day, Stop date: 09/02/16 21:00:00 CSTNotes: Same as Levemir Do not hold insulin without contacting prescriber WASTE: F/P - Black; E - Municipal Trash Bin "single patient use only" No Longer Active 07/06/2016 [facility] Enoxaparin 40 mg, 0.4 mL, Route: SUB-Q, Drug form: INJ, [id number], Dosing Weight 49.5, kg, Start date: 07/05/16 18:00:00 OPTICAL EFFECTS CAMERA OPERATOR, Duration: 30 day, Stop date: 09/02/16 18:00:00 CSTNotes: (Same as: Lovenox) No Longer Active 07/06/2016 [facility] albumin human 25% intravenous solution 12.5 gm, 50 mL, Route: IVPB, Drug form: INJ, Q6H, Dosing Weight 49.5, kg, Start date: 07/05/16 18:00:00 OPTICAL EFFECTS CAMERA OPERATOR, Duration: 30 day, Stop date: 08/04/16 12:00:00 CSTNotes: LOT#: Mfg: WASTE: F/P - Red; E -Red (Same as: Albuminar) "blood product derivative" No Longer Active 07/06/2016 [facility] Insulin, Aspart, Human 3 unit, 0.03 mL, Route: SUB-Q, Drug form: SOLN, Bedtime, Dosing Weight 49.5, kg, PRN Blood Glucose Results, Start date: 07/05/16 17:21:00 OPTICAL EFFECTS CAMERA OPERATOR, Duration: 30 day, Stop date: 09/03/16 17:20:00 CSTNotes: Roll in palms of hands gently; Do not shake vigorously. (Same as: NovoLOG) "single patient use only" WASTE: F/P - Black; E - Municipal Trash Bin Stable for 28 days at room temperature. Expires in days from Date No Longer Active 07/05/2016 [facility] Glucagon 1 mg, Route: IM, Drug form: PDR/INJ, PRN, Dosing Weight 49.5, kg, PRN Blood Glucose Results, Start date: 07/05/16 17:21:00 OPTICAL EFFECTS CAMERA OPERATOR, Duration: 30 day, Stop date: 09/03/16 17:20:00 OPTICAL EFFECTS CAMERA OPERATOR No Longer Active 07/05/2016 [facility] Dextrose 50% Syringe 25 gm, 50 mL, Route: IVP, Drug Form: INJ, Dosing Weight 49.5, kg, PRN, PRN Blood Glucose Results, Start date: 07/05/16 17:21:00 OPTICAL EFFECTS CAMERA OPERATOR, Duration: 30 day, Stop date: 09/03/16 17:20:00 OPTICAL EFFECTS CAMERA OPERATOR No Longer Active 07/05/2016 [facility] Oxycodone Hydrochloride 5 MG Oral Tablet 5 mg, 1 tab, Route: PO, Drug form: TAB, Q4H, Dosing Weight 49.5, kg, PRN Pain Score 4-6, Start date: 07/05/16 17:13:00 OPTICAL EFFECTS CAMERA OPERATOR, Duration: 30 day, Stop date: 08/04/16 17:12:00 CSTNotes: (Same as: Roxicodone) No Longer Active 07/05/2016 [facility] Hydromorphone 0.5 mg, 0.5 mL, Route: IVP, Drug form: INJ, Q3H, Dosing Weight 49.5, kg, PRN Pain Score 6-10, Start date: 07/05/16 17:13:00 OPTICAL EFFECTS CAMERA OPERATOR, Duration: 30 day, Stop date: 08/04/16 17:12:00 OPTICAL EFFECTS CAMERA OPERATOR No Longer Active 07/05/2016 [facility] Docusate 100 mg, 1 cap, Route: PO, Drug form: CAP, BID, Dosing Weight 49.5, kg, PRN Constipation, Start date: 07/05/16 17:10:00 OPTICAL EFFECTS CAMERA OPERATOR, Duration: 30 day, Stop date: 09/03/16 17:09:00 CSTNotes: (Same as: Colace) (Do Not Crush) No Longer Active 07/05/2016 [facility] Ondansetron 4 mg, 2 mL, Route: IVP, Drug form: INJ, Q6H, Dosing Weight 49.5, kg, PRN Nausea & Vomiting, Start date: 07/05/16 17:10:00 OPTICAL EFFECTS CAMERA OPERATOR, Duration: 30 day, Stop date: 09/03/16 17:09:00 CSTNotes: (Same as: Sotero) MEDICATION WASTE Product Size: 4 mg Product Wasted: ___ mg No Longer Active 07/05/2016 [facility] Acetaminophen 650 mg, 2 tab, Route: PO, Drug form: TAB, Q4H, Dosing Weight 49.5, kg, PRN Pain 1-3/Temp > 100.4 F, Start date: 07/05/16 17:10:00 OPTICAL EFFECTS CAMERA OPERATOR, Duration: 30 day, Stop date: 09/03/16 17:09:00 CSTNotes: Do not exceed 4 gm/day. (Same as: Tylenol) No Longer Active 07/05/2016 [facility] acetaminophen 325 mg oral tablet 650 mg=2 tab, PO, Q6H, PRN Pain 1-3/Temp > 100.4 F, 0 Refill(s) On Hold 07/05/2016 [facility] Cholestyramine Resin 4 gm=1 pkt, PO, Daily, 0 Refill(s) On Hold 07/05/2016 [facility] hydromorphone 100 mg/100 mL-NaCl 0.9% intravenous solution 0.5 mg=0.5 mL, IV, Q3H, PRN Pain Score 6-10, 0 Refill(s) On Hold 07/05/2016 [facility] propranolol 40 mg oral tablet 40 mg=1 tab, PO, QID, 0 Refill(s) On Hold 07/05/2016 [facility] pantoprazole 40 mg oral enteric coated tablet 40 mg=1 tab, PO, Before Dinner, 0 Refill(s) On Hold 07/05/2016 [facility] Amylases 147436 UNT / Endopeptidases 82994 UNT / Lipase 69485 UNT Enteric Coated Capsule [Creon 24] 2 cap, PO, TID-Before Meals, 0 Refill(s) On Hold 07/05/2016 [facility] Oxycodone Hydrochloride 5 MG Oral Tablet 5 mg=1 tab, PO, Q4H, PRN Pain Score 4-6, 0 Refill(s) On Hold 07/05/2016 [facility] magnesium oxide 400 mg oral tablet 400 mg=1 tab, PO, TID, 0 Refill(s) On Hold 07/05/2016 [facility] insulin detemir 100 units/mL subcutaneous solution 10 unit, SUB-Q, Bedtime, 0 Refill(s) On Hold 07/05/2016 [facility] Enoxaparin 40 mg=0.4 mL, SUB-Q, [id number], 0 Refill(s) On Hold 07/05/2016 [facility] albumin human 25% intravenous solution 12.5 gm=50 mL, IVPB, Q6H, 0 Refill(s) On Hold 07/05/2016 [facility] Calcium Carbonate 500 MG Chewable Tablet 1,000 mg=2 tab, CHEW, TID, 0 Refill(s) On Hold 07/05/2016 [facility] potassium chloride 10 mEq, 100 mL, Route: IVPB, Drug form: INJ, Q1H, Start date: 07/05/16 13:00:00 OPTICAL EFFECTS CAMERA OPERATOR, Duration: 4 doses or times, Stop date: 07/05/16 16:00:00 CSTNotes: Infuse at a rate of 10 mEq/hr. (Same as: KCL) Inactive 07/05/2016 [facility] potassium chloride 10 mEq, 100 mL, Route: IVPB, Drug form: INJ, Q1H, Start date: 07/05/16 7:00:00 OPTICAL EFFECTS CAMERA OPERATOR, Duration: 4 doses or times, Stop date: 07/05/16 10:00:00 CSTNotes: Infuse at a rate of 10 mEq/hr. (Same as: KCL) Inactive 07/05/2016 [facility] Calcium Gluconate 2,000 mg, 20 mL, Route: IVPB, ONCE, Dosing Weight 49.5, kg, Start date: 07/05/16 6:41:00 OPTICAL EFFECTS CAMERA OPERATOR, Stop date: 07/05/16 6:41:00 CSTNotes: WASTE: F/P - Sink; E - Municipal Trash Bin Inactive 07/05/2016 [facility] Magnesium Sulfate 2 gm, 50 mL, Route: IVPB, Drug form: INJ, ONCE, Dosing Weight 49.5, kg, Start date: 07/05/16 6:41:00 OPTICAL EFFECTS CAMERA OPERATOR, Duration: 2 hr, Stop date: 07/05/16 6:41:00 CSTNotes: WASTE: F/P - Sink; E - Municipal Trash Bin Inactive 07/05/2016 [facility] potassium chloride 40 mEq, Route: IV, ONCE, Dosing Weight 49.5, kg, Start date: 07/05/16 6:40:00 OPTICAL EFFECTS CAMERA OPERATOR, Stop date: 07/05/16 6:40:00 OPTICAL EFFECTS CAMERA OPERATOR Inactive 07/05/2016 [facility] TPN, adult solution 2,050 mL 2,050 mL, Rate: 83 ml/hr, Infuse over: 24.7 hr, Route: IV, Dosing Weight 49.5 kg, Total Volume: 2,050, Start date: 07/04/16 22:00:00 OPTICAL EFFECTS CAMERA OPERATOR, Duration: 1 day, Stop date: 07/05/16 21:59:00 OPTICAL EFFECTS CAMERA OPERATOR No Longer Active 07/05/2016 [facility] fat emulsion, intravenous 250 mL IV, 31.25 ml/hr, Start date: 07/04/16 22:00:00 OPTICAL EFFECTS CAMERA OPERATOR, Duration: 8, 250 ml, 49.5Notes: (Same as: Intralipid, Liposyn) Infuse through a 1.2 micron filter No Longer Active 07/05/2016 [facility] Lasix 40 mg, 4 mL, Route: IV, Drug form: INJ, ONCE, Dosing Weight 49.5, kg, Start date: 07/04/16 17:00:00 OPTICAL EFFECTS CAMERA OPERATOR, Stop date: 07/04/16 17:00:00 CSTNotes: (Same as: Lasix) MEDICATION WASTE Product Size: 40 mg Product Wasted: ___ mg Inactive 07/04/2016 [facility] albumin human 25% intravenous solution 25 gm, 100 mL, Route: IVPB, Drug form: INJ, ONCE, Dosing Weight 49.5, kg, Start date: 07/04/16 16:00:00 OPTICAL EFFECTS CAMERA OPERATOR, Stop date: 07/04/16 16:00:00 CSTNotes: Lot #: Mfg: (Same as: [id number]) "blood product derivative" WASTE: F/P - Red; E -Red MEDICATION WASTE Product Size: 25 gm Product Wasted: ___ gm Inactive 07/04/2016 [facility] Oxycodone Hydrochloride 5 MG Oral Tablet 5 mg, 1 tab, Route: PO, Drug form: TAB, Q4H, Dosing Weight 49.5, kg, PRN Pain Score 4-6, Start date: 07/04/16 8:46:00 OPTICAL EFFECTS CAMERA OPERATOR, Duration: 30 day, Stop date: 08/03/16 8:45:00 CSTNotes: (Same as: Roxicodone) No Longer Active 07/04/2016 [facility] Tylenol 650 mg, 2 tab, Route: PO, Drug form: TAB, Q6H, Dosing Weight 49.5, kg, PRN Pain 1-3/Temp > 100.4 F, Start date: 07/03/16 14:51:00 OPTICAL EFFECTS CAMERA OPERATOR, Duration: 30 day, Stop date: 08/02/16 14:50:00 CSTNotes: Do not exceed 4 gm/day. (Same as: Tylenol) No Longer Active 07/03/2016 [facility] potassium chloride 40 mEq, 30 mL, Route: PO, Drug form: LIQ, ONCE, Dosing Weight 49.5, kg, Start date: 07/03/16 8:42:00 OPTICAL EFFECTS CAMERA OPERATOR, Stop date: 07/03/16 8:42:00 CSTNotes: (Same as: Potassium Chloride) Inactive 07/03/2016 [facility] Roxicodone 10 mg, 2 tab, Route: PO, Drug form: TAB, Q4H, PRN Pain Score 4-6, Start date: 07/02/16 16:57:00 OPTICAL EFFECTS CAMERA OPERATOR, Duration: 30 day, Stop date: 08/01/16 16:56:00 CSTNotes: (Same as: Roxicodone) No Longer Active 07/02/2016 [facility] Tylenol 325 mg, 1 tab, Route: PO, Drug form: TAB, Q6H, PRN Pain Score 4-6, Start date: 07/02/16 16:57:00 OPTICAL EFFECTS CAMERA OPERATOR, Duration: 30 day, Stop date: 08/01/16 16:56:00 CSTNotes: Do not exceed 4 gm/day. (Same as: Tylenol) No Longer Active 07/02/2016 [facility] Acetaminophen 325 MG / Oxycodone Hydrochloride 10 MG Oral Tablet [Percocet 10/325] 1 tab, Route: PO, Drug Form: TAB, Dosing Weight 49.5, kg, Q6H, PRN Pain Score 4-6, Start date: 07/02/16 16:56:00 OPTICAL EFFECTS CAMERA OPERATOR, Duration: 30 day, Stop date: 08/01/16 16:55:00 OPTICAL EFFECTS CAMERA OPERATOR Inactive 07/02/2016 [facility] Magnesium Sulfate 1 gm, 100 mL, Route: IVPB, Drug form: INJ, ONCE, Dosing Weight 49.5, kg, Start date: 07/01/16 7:08:00 OPTICAL EFFECTS CAMERA OPERATOR, Stop date: 07/01/16 7:08:00 CSTNotes: WASTE: F/P - Sink; E - Municipal Trash Bin Inactive 07/01/2016 [facility] Calcium Carbonate 1,000 mg, Route: CHEW, Drug form: CHEWTAB, Bedtime, Dosing Weight 49.5, Start date: 06/29/16 21:00:00 OPTICAL EFFECTS CAMERA OPERATOR, Duration: 30 day, Stop date: 07/28/16 21:00:00 CSTNotes: (Same As: Tums) Calcium Carbonate 5 00 zv=846 mg elemental calcium Dose= mg calcium carbonate ( mg elemental calcium) No Longer Active 06/30/2016 [facility] sodium chloride 0.9% 1000 ml INJ 1,000 mL 1,000 mL, Rate: 50 ml/hr, Infuse over: 20 hr, Route: IV, Dosing Weight 49.5 kg, Total Volume: 1,000, Start date: 06/29/16 13:33:00 OPTICAL EFFECTS CAMERA OPERATOR, Stop date: 07/29/16 13:32:00 OPTICAL EFFECTS CAMERA OPERATOR No Longer Active 06/29/2016 [facility] Calcium Carbonate 500 mg, 1 tab, Route: PO, Drug form: CHEWTAB, BID, Dosing Weight 49.5, kg, Start date: 06/29/16 9:00:00 OPTICAL EFFECTS CAMERA OPERATOR, Duration: 30 day, Stop date: 07/28/16 18:00:00 CSTNotes: (Same As: Zoey) Calcium Carbonate 500 ki=514 mg elemental calcium Dose= mg calcium carbonate ( mg elemental calcium) No Longer Active 06/29/2016 [facility] Calcium Carbonate 500 mg, 1 tab, Route: CHEW, Drug form: CHEWTAB, ONCE, Dosing Weight 49.5, kg, Start date: 06/29/16 6:15:00 OPTICAL EFFECTS CAMERA OPERATOR, Stop date: 06/29/16 6:15:00 CSTNotes: (Same As: Zoey) Calcium Carbonate 500 fl=065 mg elemental calcium Dose= mg calcium carbonate ( mg elemental calcium) Inactive 06/29/2016 [facility] Nitroglycerin 0.4 MG Sublingual Tablet 0.4 mg, 1 tab, Route: SL, Drug form: TAB, Q5Min, Dosing Weight 49.5, kg, PRN Chest Pain, Start date: 06/28/16 23:44:00 OPTICAL EFFECTS CAMERA OPERATOR, Duration: 30 day, Stop date: 07/28/16 23:43:00 CSTNotes: (Same as:Nitroquick, Nitrostat) "Do Not Crush" Sublingual tablet No Longer Active 06/29/2016 [facility] Atropine 0.5 mg, 5 mL, Route: IVP, Drug form: INJ, PRN, Dosing Weight 49.5, kg, PRN Bradycardia, Start date: 06/28/16 23:44:00 OPTICAL EFFECTS CAMERA OPERATOR, Duration: 30 day, Stop date: 07/28/16 23:43:00 OPTICAL EFFECTS CAMERA OPERATOR, symtaomaticbradycardia heart rate less than 40 No Longer Active 06/29/2016 [facility] PHOS-NaK 2 pkt, Route: PO, Drug Form: PDR/REC, Dosing Weight 49.5, kg, ONCE, Start date: 06/27/16 9:09:00 OPTICAL EFFECTS CAMERA OPERATOR, Stop date: 06/27/16 9:09:00 CSTNotes: (Same as: Phos-NaK) Each 1.5 gm pkt has 250mg phosphorous. Mix w/2.5oz water and stir. Inactive 06/27/2016 [facility] Calcium Gluconate 2,000 mg, 20 mL, Route: IVPB, ONCE, Dosing Weight 49.5, kg, Start date: 06/27/16 9:09:00 OPTICAL EFFECTS CAMERA OPERATOR, Stop date: 06/27/16 9:09:00 CSTNotes: WASTE: F/P - Sink; E - Municipal Trash Bin Inactive 06/27/2016 [facility] Bumex 1 mg, 4 mL, Route: IVP, Drug form: INJ, ONCE, Dosing Weight 49.5, kg, Start date: 06/26/16 15:01:00 OPTICAL EFFECTS CAMERA OPERATOR, Stop date: 06/26/16 15:01:00 CSTNotes: (Same As: Bumex) Inactive 06/26/2016 [facility] Magnesium Sulfate 3 gm, 6 mL, Route: IV, ONCE, Dosing Weight 49.5, kg, Start date: 06/26/16 13:08:00 OPTICAL EFFECTS CAMERA OPERATOR, Stop date: 06/26/16 13:08:00 CSTNotes: (Same as: MgSO4) WASTE: F/P - Sink; E - Municipal Trash Bin MEDICATION WASTE Product Size: 1000 mg Product Wasted: ___ mg Inactive 06/26/2016 [facility] Calcium Gluconate 2,000 mg, 20 mL, Route: IVPB, ONCE, Dosing Weight 49.5, kg, Start date: 06/26/16 13:08:00 OPTICAL EFFECTS CAMERA OPERATOR, Stop date: 06/26/16 13:08:00 CSTNotes: WASTE: F/P - Sink; E - Municipal Trash Bin Inactive 06/26/2016 [facility] Prednisone 20 mg, 1 tab, Route: PO, Drug form: TAB, Daily, Dosing Weight 49.5, kg, Start date: 06/26/16 9:00:00 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 No Longer Active 06/26/2016 [facility] Magnesium Oxide 400 mg, 1 tab, Route: PO, Drug form: TAB, BID, Dosing Weight 49.5, kg, Start date: 06/25/16 17:00:00 OPTICAL EFFECTS CAMERA OPERATOR, Duration: 30 day, Stop date: 07/25/16 9:00:00 CSTNotes: (Same as: Mag-Ox 400) Magnesium oxide [id number] elemental magnesium Dose=____mg magnesium oxide (___mg elemental magnesium) No Longer Active 06/25/2016 [facility] Calcium Gluconate 1,000 mg, 10 mL, Route: IVPB, ONCE, Dosing Weight 49.5, kg, Start date: 06/25/16 12:30:00 OPTICAL EFFECTS CAMERA OPERATOR, Stop date: 06/25/16 12:30:00 CSTNotes: WASTE: F/P - Sink; E - Municipal Trash Bin Inactive 06/25/2016 [facility] Magnesium Sulfate 2 gm, 50 mL, Route: IV, Drug form: INJ, ONCE, Dosing Weight 49.5, kg, Start date: 06/25/16 11:54:00 OPTICAL EFFECTS CAMERA OPERATOR, Stop date: 06/25/16 11:54:00 CSTNotes: WASTE: F/P - Sink; E - Municipal Trash Bin Inactive 06/25/2016 [facility] Calcium Carbonate 500 mg, 1 tab, Route: PO, Drug form: CHEWTAB, TID, Dosing Weight 49.5, kg, Start date: 06/25/16 9:00:00 OPTICAL EFFECTS CAMERA OPERATOR, Duration: 30 day, Stop date: 07/24/16 17:00:00 CSTNotes: (Same As: Tums) Calcium Carbonate 500 ig=041 mg elemental calcium Dose= mg calcium carbonate ( mg elemental calcium) No Longer Active 06/25/2016 [facility] Cholestyramine Resin 4 gm, 1 pkt, Route: PO, Drug form: PDR/REC, Daily, Dosing Weight 49.5, kg, Start date: 06/25/16 9:00:00 OPTICAL EFFECTS CAMERA OPERATOR, Duration: 30 day, Stop date: 07/24/16 9:00:00 CSTNotes: (Same As: Questran) No Longer Active 06/25/2016 [facility] Amylases [id number] UNT / Endopeptidases 91299 UNT / Lipase 96073 UNT Enteric Coated Capsule [Creon 24] 2 cap, Route: PO, Drug Form: DRC, Dosing Weight 49.5, kg, TID-Before Meals, Start date: 06/25/16 8:35:00 OPTICAL EFFECTS CAMERA OPERATOR, Duration: 30 day, Stop date: 07/25/16 7:30:00 CSTNotes: Same as: Creon DRC 24 : lipase 24 ,000 units, protease 76,000 units, amylase 120,000 units No Longer Active 06/25/2016 [facility] potassium chloride 40 mEq, 2 tab, Route: PO, Drug form: ERTAB, Q12H, Dosing Weight 49.5, kg, Start date: 06/24/16 21:00:00 OPTICAL EFFECTS CAMERA OPERATOR, Duration: 30 day, Stop date: 07/24/16 9:00:00 CSTNotes: (Same as: K-Dur 20) "Do Not Crush" With food and full glass of water No Longer Active 06/25/2016 [facility] Protonix 40 mg, 1 tab, Route: PO, Drug form: ECTAB, Before Dinner, Dosing Weight 49.5, kg, Start date: 06/24/16 15:44:00 OPTICAL EFFECTS CAMERA OPERATOR, Duration: 30 day, Stop date: 07/23/16 16:30:00 CSTNotes: Tablet should not be chewed or crushed. (Same as: Protonix) No Longer Active 06/24/2016 [facility] Magnesium Sulfate 2 gm, 50 mL, Route: IVPB, Drug form: INJ, ONCE, Dosing Weight 49.5, kg, Total dose=2 gm, Start date: 06/24/16 9:33:00 OPTICAL EFFECTS CAMERA OPERATOR, Duration: 1 doses or times, Stop date: 06/24/16 9:33:00 CSTNotes: WASTE: F/P - Sink; E - Municipal Trash Bin Inactive 06/24/2016 [facility] potassium chloride 40 mEq, Route: PO, TID, Dosing Weight 49.5, kg, Start date: 06/23/16 13:00:00 OPTICAL EFFECTS CAMERA OPERATOR, Duration: 30 day, Stop date: 07/23/16 9:00:00 OPTICAL EFFECTS CAMERA OPERATOR Inactive 06/23/2016 [facility] potassium chloride 40 mEq, 2 tab, Route: PO, Drug form: ERTAB, Q6H, Dosing Weight 49.5, kg, Start date: 06/23/16 12:00:00 OPTICAL EFFECTS CAMERA OPERATOR, Duration: 4 doses or times, Stop date: 06/24/16 6:00:00 CSTNotes: (Same as: K- Dur 20) "Do Not Crush" With food and full glass of water No Longer Active 06/23/2016 [facility] potassium chloride 10 mEq, 100 mL, Route: IVPB, Drug form: INJ, Q1H, Dosing Weight 49.5, kg, Total Dose=40 meq, Start date: 06/23/16 11:00:00 OPTICAL EFFECTS CAMERA OPERATOR, Duration: 4 doses or times, Stop date: 06/23/16 14:00:00 OPTICAL EFFECTS CAMERA OPERATOR, Peripheral LineNotes: Infuse at a rate of 10 mEq/hr. (Same as: KCL) Inactive 06/23/2016 [facility] Magnesium Sulfate 6 gm, 150 mL, Route: IV, Drug form: INJ, ONCE, Dosing Weight 49.5, kg, Start date: 06/23/16 6:17:00 OPTICAL EFFECTS CAMERA OPERATOR, Stop date: 06/23/16 6:17:00 CSTNotes: WASTE: F/P - Sink; E - Municipal Trash Bin Inactive 06/23/2016 [facility] potassium chloride 40 mEq, 2 tab, Route: PO, Drug form: ERTAB, ONCE, Dosing Weight 49.5, kg, Start date: 06/22/16 18:00:00 OPTICAL EFFECTS CAMERA OPERATOR, Stop date: 06/22/16 18:00:00 CSTNotes: (Same as: K-Dur 20) "Do Not Crush" With food and full glass of water Inactive 06/23/2016 [facility] Metoprolol 5 mg, 5 mL, Route: IVP, Drug form: INJ, Q6H, Dosing Weight 49.5, kg, PRN Other -See Comment, Start date: 06/22/16 16:01:00 OPTICAL EFFECTS CAMERA OPERATOR, Duration: 30 day, Stop date: 07/22/16 16:00:00 OPTICAL EFFECTS CAMERA OPERATOR, Give only if unable to take poNotes: (Same as: Lopressor) Push over 2 minutes No Longer Active 06/22/2016 [facility] potassium chloride 40 mEq, Route: PO, TID, Dosing Weight 49.5, kg, Start date: 06/22/16 13:00:00 OPTICAL EFFECTS CAMERA OPERATOR, Duration: 30 day, Stop date: 07/22/16 9:00:00 OPTICAL EFFECTS CAMERA OPERATOR Inactive 06/22/2016 [facility] potassium chloride 10 mEq, 100 mL, Route: IVPB, Drug form: INJ, Q1H, Dosing Weight 49.5, kg, Total Dose=40 meq, Start date: 06/22/16 11:00:00 OPTICAL EFFECTS CAMERA OPERATOR, Duration: 4 doses or times, Stop date: 06/22/16 14:00:00 [employer] EFFECTS CAMERA OPERATOR, Peripheral LineNotes: Infuse at a rate of 10 mEq/hr. (Same as: KCL) Inactive 06/22/2016 [facility] Thiamine 100 mg, 1 mL, Route: IVPB, Drug form: INJ, Q24H, Dosing Weight 49.5, kg, Start date: 06/22/16 11:00:00 [employer] EFFECTS CAMERA OPERATOR, Duration: 30 day, Stop date: 07/21/16 11:00:00 CSTNotes: (Same As: Vitamin B1) No Longer Active 06/22/2016 [facility] Calcium Gluconate 2,000 mg, 20 mL, Route: IVPB, ONCE, Dosing Weight 49.5, kg, Start date: 06/22/16 7:06:00 [employer] EFFECTS CAMERA OPERATOR, Stop date: 06/22/16 7:06:00 CSTNotes: WASTE: F/P - Sink; E - [employer] Trash Bin Inactive 06/22/2016 [facility] potassium chloride 10 mEq, 100 mL, Route: IVPB, Drug form: INJ, Q1H, Dosing Weight 49.5, kg, Total Dose=40 meq, Start date: 06/22/16 6:00:00 [employer] EFFECTS CAMERA OPERATOR, Duration: 4 doses or times, Stop date: 06/22/16 9:00:00 [employer] EFFECTS CAMERA OPERATOR, Peripheral LineNotes: Infuse at a rate of 10 mEq/hr. (Same as: KCL) Inactive 06/22/2016 [facility] potassium chloride 40 mEq, 30 mL, Route: PO, Drug form: LIQ, ONCE, Start date: 06/21/16 12:00:00 [employer] EFFECTS CAMERA OPERATOR, Stop date: 06/21/16 12:00:00 CSTNotes: (Same as: Potassium Chloride) Inactive 06/21/2016 [facility] Magnesium Sulfate 2 gm, 50 mL, Route: IVPB, Drug form: INJ, Q2H, Dosing Weight 49.5, kg, Total dose=4 gm, Start date: 06/21/16 10:00:00 OPTICAL EFFECTS CAMERA OPERATOR, Duration: 2 doses or times, Stop date: 06/21/16 12:00:00 CSTNotes: WASTE: F/P - Sink; Explore.To [employer] Bin Inactive 06/21/2016 [facility] Protonix 40 mg, 1 tab, Route: PO, Drug form: ECTAB, Daily, Start date: 06/21/16 9:00:00 OPTICAL EFFECTS CAMERA OPERATOR, Duration: 30 day, Stop date: 07/20/16 9:00:00 CSTNotes: Tablet should not be chewed or crushed. (Same as: Protonix) No Longer Active 06/21/2016 [facility] potassium chloride 40 mEq, Route: PO, ONCE, Dosing Weight 49.5, kg, Start date: 06/21/16 8:00:00 OPTICAL EFFECTS CAMERA OPERATOR, Stop date: 06/21/16 8:00:00 OPTICAL EFFECTS CAMERA OPERATOR Inactive 06/21/2016 [facility] potassium chloride 40 mEq, 30 mL, Route: PO, Drug form: LIQ, ONCE, Dosing Weight 49.5, kg, Start date: 06/21/16 7:59:00 OPTICAL EFFECTS CAMERA OPERATOR, Stop date: 06/21/16 7:59:00 CSTNotes: (Same as: Potassium Chloride) Inactive 06/21/2016 [facility] Calcium Gluconate 2,000 mg, 20 mL, Route: IVPB, ONCE, Dosing Weight 49.5, kg, Start date: 06/21/16 7:59:00 OPTICAL EFFECTS CAMERA OPERATOR, Stop date: 06/21/16 7:59:00 CSTNotes: WASTE: F/P - Sink; [employer] Bin Inactive 06/21/2016 [facility] Atropine Sulfate 0.025 MG / Diphenoxylate Hydrochloride 2.5 MG Oral Tablet [Lomotil] 1 tab, Route: PO, Drug Form: TAB, Dosing Weight 49.5, kg, Q6H, PRN as needed for loose stool, Start date: 06/20/16 21:23:00 OPTICAL EFFECTS CAMERA OPERATOR, Duration: 30 day, Stop date: 07/20/16 21:22:00 CSTNotes: (Same As: Lomotil) MAX Adult dose=8 tabs/day No Longer Active 06/21/2016 [facility] Magnesium Sulfate 2 gm, 50 mL, Route: IVPB, Drug form: INJ, Q2H, Dosing Weight 49.5, kg, Total dose=4 gm, Start date: 06/20/16 12:00:00 OPTICAL EFFECTS CAMERA OPERATOR, Duration: 2 doses or times, Stop date: 06/20/16 14:00:00 CSTNotes: WASTE: F/P - Sink; E - Municipal Trash Bin Inactive 06/20/2016 [facility] K-Dur 20 60 mEq, 3 tab, Route: PO, Drug form: ERTAB, Q2H, Start date: 06/20/16 8:00:00 OPTICAL EFFECTS CAMERA OPERATOR, Duration: 2 doses or times, Stop date: 06/20/16 10:00:00 CSTNotes: (Same as: K-Dur 20) "Do Not Crush" With food and full glass of water Inactive 06/20/2016 [facility] potassium chloride 30 mEq, Route: PO, ONCE, Dosing Weight 49.5, kg, Priority: NOW, Start date: 06/20/16 7:31:00 OPTICAL EFFECTS CAMERA OPERATOR, Stop date: 06/20/16 7:31:00 OPTICAL EFFECTS CAMERA OPERATOR Inactive 06/20/2016 [facility] Amylases 896754 UNT / Endopeptidases 34281 UNT / Lipase 73594 UNT Enteric Coated Capsule [Creon 24] 1 cap, Route: PO, Drug Form: DRC, Dosing Weight 49.5, kg, TID-Before Meals, Start date: 06/19/16 16:30:00 OPTICAL EFFECTS CAMERA OPERATOR, Duration: 30 day, Stop date: 07/19/16 11:30:00 CSTNotes: Same as: Creon DRC 24 : lipase 24,000 units, protease 76,000 units, amylase 120,000 units No Longer Active 06/19/2016 [facility] Calcium Gluconate 1,000 mg, 10 mL, Route: IVPB, ONCE, Dosing Weight 49.5, kg, Start date: 06/19/16 12:23:00 OPTICAL EFFECTS CAMERA OPERATOR, Stop date: 06/19/16 12:23:00 CSTNotes: WASTE: F/P - Sink; E - Municipal Trash Bin Inactive 06/19/2016 [facility] pneumococcal capsular polysaccharide type 1 vaccine / pneumococcal capsular polysaccharide type 10A vaccine / pneumococcal capsular polysaccharide type 11A vaccine / pneumococcal capsular polysaccharide type 12F vaccine / pneumococcal capsular polysacchar 0.5 mL, Route: IM, Drug Form: INJ, Daily, Start date: 06/19/16 9:00:00 OPTICAL EFFECTS CAMERA OPERATOR, Duration: 1 doses or times, Stop date: 06/19/16 9:00:00 CSTNotes: (Same as: Pneumovax 23) Refrigerate Inactive 06/19/2016 [facility] Rocephin 1 gm, Route: IVPB, [id number], Dosing Weight 49.5, kg, Priority: NOW, Start date: 06/19/16 7:44:00 OPTICAL EFFECTS CAMERA OPERATOR, Duration: 30 day, Stop date: 07/18/16 14:00:00 CSTNotes: (Same As: Rocephin). Use with 100 mL NS and infuse over 30 min MEDICATION WASTE Product Size: 1000 mg Product Wasted: ___ mg No Longer Active 06/19/2016 [facility] Magnesium Sulfate 1 gm, 100 mL, Route: IVPB, Drug form: INJ, ONCE, Dosing Weight 49.5, kg, Start date: 06/18/16 16:20:00 OPTICAL EFFECTS CAMERA OPERATOR, Stop date: 06/18/16 16:20:00 CSTNotes: WASTE: F/P - Sink; E - Municipal Trash Bin Inactive 06/18/2016 [facility] ondansetron (ANES) Route: IV, Drug form: INJ, ONCE, Stop date: 06/18/16 14:21:00 OPTICAL EFFECTS CAMERA OPERATOR Inactive 06/18/2016 [facility] fentaNYL (ANES) Route: IV, Drug form: INJ, ONCE, Stop date: 06/18/16 14:21:00 OPTICAL EFFECTS CAMERA OPERATOR Inactive 06/18/2016 [facility] lidocaine (ANES) Route: IV, Drug form: INJ, ONCE, Stop date: 06/18/16 14:21:00 OPTICAL EFFECTS CAMERA OPERATOR Inactive 06/18/2016 [facility] propofol (ANES) Route: IV, Drug form: INJ, ONCE, Stop date: 06/18/16 14:21:00 OPTICAL EFFECTS CAMERA OPERATOR Inactive 06/18/2016 [facility] metoclopramide (ANES) Route: IV, Drug form: INJ, ONCE, Stop date: 06/18/16 14:21:00 OPTICAL EFFECTS CAMERA OPERATOR Inactive 06/18/2016 [facility] phenylephrine (ANES) Route: IV, Drug form: INJ, ONCE, Stop date: 06/18/16 14:21:00 OPTICAL EFFECTS CAMERA OPERATOR Inactive 06/18/2016 [facility] Levsin SL 0.125 mg, 1 tab, Route: SL, Drug form: TAB, Q4H, Dosing Weight 49.5, kg, PRN Bladder Spasm, Start date: 06/18/16 14:17:00 OPTICAL EFFECTS CAMERA OPERATOR, Duration: 30 day, Stop date: 07/18/16 14:16:00 CSTNotes: (Same as: Levsin) Take 30 min before meal No Longer Active 06/18/2016 [facility] LR 1000 mL INJ (ANES) Route: IV, Total Volume: 1,000, Start date: 06/18/16 13:30:00 OPTICAL EFFECTS CAMERA OPERATOR, Stop date: 06/18/16 14:30:00 OPTICAL EFFECTS CAMERA OPERATOR Inactive 06/18/2016 [facility] Calcium Chloride 0.0014 MEQ/ML / Potassium Chloride 0.004 MEQ/ML / Sodium Chloride 0.103 MEQ/ML / Sodium Lactate 0.028 MEQ/ML Injectable Solution 1,000 mL, Rate: 25 ml/hr, Infuse over: 40 hr, Route: IV, Dosing Weight 49.5 kg, Total Volume: 1,000, Start date: 06/18/16 12:36:00 OPTICAL EFFECTS CAMERA OPERATOR, Duration: 30 day, Stop date: 07/18/16 12:35:00 OPTICAL EFFECTS CAMERA OPERATOR Inactive 06/18/2016 [facility] potassium chloride 10 mEq, 100 mL, Route: IVPB, Drug form: INJ, Q1H, Dosing Weight 49.5, kg, Total Dose=40 meq, Start date: 06/18/16 7:00:00 OPTICAL EFFECTS CAMERA OPERATOR, Duration: 4 doses or times, Stop date: 06/18/16 10:00:00 OPTICAL EFFECTS CAMERA OPERATOR, Peripheral LineNotes: Infuse at a rate of 10 mEq/hr. (Same as: KCL) Inactive 06/18/2016 [facility] Magnesium Sulfate 1 gm, 100 mL, Route: IVPB, Drug form: INJ, ONCE, Dosing Weight 49.5, kg, Start date: 06/18/16 6:12:00 OPTICAL EFFECTS CAMERA OPERATOR, Stop date: 06/18/16 6:12:00 CSTNotes: WASTE: F/P - Sink; E - Municipal Trash Bin Inactive 06/18/2016 [facility] potassium chloride 40 mEq, 30 mL, Route: PO, Drug form: LIQ, Q2H, Dosing Weight 49.5, kg, Start date: 06/17/16 16:00:00 OPTICAL EFFECTS CAMERA OPERATOR, Duration: 2 doses or times, Stop date: 06/17/16 18:00:00 CSTNotes: (Same as: Potassium Chloride) Inactive 06/17/2016 [facility] hydrocortisone 100 mg injection 50 mg, 1 mL, Route: IV, Drug form: PDR/INJ, Q8H, Dosing Weight 51.364, kg, Start date: 06/17/16 16:00:00 OPTICAL EFFECTS CAMERA OPERATOR, Duration: 30 day, Stop date: 07/17/16 8:00:00 CSTNotes: (Same as: Solu-CORTEF) No Longer Active 06/17/2016 [facility] Insulin, Aspart, Human 8 unit, 0.08 mL, Route: SUB-Q, Drug form: SOLN, Sliding Scale, Dosing Weight 49.5, kg, PRN Blood Glucose Results, Start date: 06/17/16 14:24:00 OPTICAL EFFECTS CAMERA OPERATOR, Duration: 30 day, Stop date: 07/17/16 14:23:00 CSTNotes: Roll in palms of hands gently; Do not shake vigorously. (Same as: NovoLOG) "single patient use only" WASTE: F/P - Black; E - [employer] Trash Bin Stable for 28 days at room temperature. Expires in days from Date No Longer Active 06/17/2016 [facility] Glucagon 1 mg, Route: IM, Drug form: PDR/INJ, PRN, Dosing Weight 49.5, kg, PRN Blood Glucose Results, Start date: 06/17/16 14:24:00 OPTICAL EFFECTS CAMERA OPERATOR, Duration: 30 day, Stop date: 07/17/16 14:23:00 OPTICAL EFFECTS CAMERA OPERATOR No Longer Active 06/17/2016 [facility] Dextrose 50% Syringe 25 gm, 50 mL, Route: IVP, Drug Form: INJ, Dosing Weight 49.5, kg, PRN, PRN Blood Glucose Results, Start date: 06/17/16 14:24:00 OPTICAL EFFECTS CAMERA OPERATOR, Duration: 30 day, Stop date: 07/17/16 14:23:00 OPTICAL EFFECTS CAMERA OPERATOR No Longer Active 06/17/2016 [facility] NS + KCL 20mEq/L 1000ml (Premix) 1,000 mL 1,000 mL, Rate: 125 ml/hr, Infuse over: 8 hr, Route: IV, Dosing Weight 49.5 kg, Total Volume: 1,000, Start date: 06/17/16 14:24:00 OPTICAL EFFECTS CAMERA OPERATOR, Duration: 30 day, Stop date: 07/17/16 14:23:00 CSTNotes: PREMIX IV - Do Not Alter WASTE: F/P - Sink; E - Municipal Trash Bin No Longer Active 06/17/2016 [facility] potassium chloride 20 mEq, 100 mL, Route: IVPB, Drug form: INJ, ONCE, Dosing Weight 49.5, kg, Start date: 06/17/16 14:23:00 OPTICAL EFFECTS CAMERA OPERATOR, Stop date: 06/17/16 14:23:00 CSTNotes: (Same as: KCL) Infuse no faster than 10 mEq/hr if given peripherally. Inactive 06/17/2016 [facility] Acetaminophen 325 MG / Hydrocodone Bitartrate 5 MG Oral Tablet [Douglas 5/325] 1 tab, Route: PO, Drug Form: TAB, Dosing Weight 49.5, kg, Q4H, PRN Pain Score 4-6, Start date: 06/17/16 12:44:00 OPTICAL EFFECTS CAMERA OPERATOR, Duration: 30 day, Stop date: 07/17/16 12:43:00 CSTNotes: (Same as: Douglas 325/5) Do not exceed 4gm/day of acetaminophen. No Longer Active 06/17/2016 [facility] Dilaudid 0.2 mg, 0.2 mL, Route: IV, Drug form: INJ, Q3H, Dosing Weight 49.5, kg, PRN Pain Score 4-6, Start date: 06/17/16 12:27:00 OPTICAL EFFECTS CAMERA OPERATOR, Duration: 30 day, Stop date: 07/17/16 12:26:00 OPTICAL EFFECTS CAMERA OPERATOR No Longer Active 06/17/2016 [facility] Magnesium Sulfate 2 gm, 50 mL, Route: IVPB, Drug form: INJ, Q2H, Dosing Weight 49.5, kg, Total dose=4 gm, Start date: 06/17/16 5:00:00 OPTICAL EFFECTS CAMERA OPERATOR, Duration: 2 doses or times, Stop date: 06/17/16 7:00:00 CSTNotes: WASTE: F/P - Sink; E - Municipal Trash Bin Inactive 06/17/2016 [facility] Calcium Carbonate 500 MG Chewable Tablet 1,000 mg, 2 tab, Route: PO, Drug form: CHEWTAB, PRN, Dosing Weight 49.5, kg, PRN Abnormal Lab Result, FOR ICU USE ONLY, Start date: 06/17/16 4:16:00 OPTICAL EFFECTS CAMERA OPERATOR, Duration: 30 day, Stop date: 07/17/16 4:15:00 CSTNotes: (Same As: Tums) Calcium Carbonate 500 mv=902 mg elemental calcium Dose= mg calcium carbonate ( mg elemental calcium) Inactive 06/17/2016 [facility] potassium phosphate + sodium chloride 0.9% INJ 250 mL 15 mmol, 5 mL, Route: IVPB, PRN, Dosing Weight 49.5, kg, PRN Abnormal Lab Result, Start date: 06/17/16 4:16:00 OPTICAL EFFECTS CAMERA OPERATOR, Duration: 30 day, Stop date: 07/17/16 4:15:00 OPTICAL EFFECTS CAMERA OPERATOR, FOR ICU USE ONLYNotes: (Same as: K Phosphate.) 1 mMol phoshate has 1.47 mEq potassium Infuse over 4 hours Inactive 06/17/2016 [facility] potassium phosphate-sodium phosphate 250 mg-280 mg-160 mg oral powder for reconstitution 2 pkt, Route: PO, Drug Form: PDR/REC, Dosing Weight 49.5, kg, PRN, PRN Abnormal Lab Result, FOR ICU USE ONLY, Start date: 06/17/16 4:16:00 OPTICAL EFFECTS CAMERA OPERATOR, Duration: 30 day, Stop date: 07/17/16 4:15:00 CSTNotes: (Same as: Phos-NaK) Each 1.5 gm pkt has 250mg phosphorous. Mix w/2.5oz water and stir. Inactive 06/17/2016 [facility] Magnesium Sulfate 2 gm, 50 mL, Route: IVPB, Drug form: INJ, PRN, Dosing Weight 49.5, kg, PRN Abnormal Lab Result, Start date: 06/17/16 4:16:00 OPTICAL EFFECTS CAMERA OPERATOR, Duration: 30 day, Stop date: 07/17/16 4:15:00 OPTICAL EFFECTS CAMERA OPERATOR, FOR ICU USE ONLYNotes: WASTE: F/P - Sink; E - Municipal Trash Bin Inactive 06/17/2016 [facility] sodium phosphate + D5W 250 mL 15 mmol, 5 mL, Route: IVPB, PRN, Dosing Weight 49.5, kg, PRN Abnormal Lab Result, Start date: 06/17/16 4:16:00 OPTICAL EFFECTS CAMERA OPERATOR, Duration: 30 day, Stop date: 07/17/16 4:15:00 OPTICAL EFFECTS CAMERA OPERATOR, FOR ICU USE ONLY Inactive 06/17/2016 [facility] potassium chloride 20 mEq, 100 mL, Route: IVPB, Drug form: INJ, PRN, Dosing Weight 49.5, kg, PRN Abnormal Lab Result, Via central line, Start date: 06/17/16 4:16:00 OPTICAL EFFECTS CAMERA OPERATOR, Duration: 30 day, Stop date: 07/17/16 4:15:00 OPTICAL EFFECTS CAMERA OPERATOR, FOR ICU USE ONLYNotes: (Same as: KCL) Infuse no faster than 10 mEq/hr if given peripherally. Inactive 06/17/2016 [facility] Magnesium Oxide 800 mg, 2 tab, Route: PO, Drug form: TAB, PRN, Dosing Weight 49.5, kg, PRN Abnormal Lab Result, FOR ICU USE ONLY, Start date: 06/17/16 4:16:00 OPTICAL EFFECTS CAMERA OPERATOR, Duration: 30 day, Stop date: 07/17/16 4:15:00 CSTNo renee: (Same as: Mag-Ox 400) Magnesium oxide [id number] elemental magnesium Dose=____mg magnesium oxide (___mg elemental magnesium) Inactive 06/17/2016 [facility] Calcium Gluconate 1 gm, 10 mL, Route: IVPB, PRN, Dosing Weight 49.5, kg, PRN Abnormal Lab Result, Start date: 06/17/16 4:16:00 OPTICAL EFFECTS CAMERA OPERATOR, Duration: 30 day, Stop date: 07/17/16 4:15:00 OPTICAL EFFECTS CAMERA OPERATOR, FOR ICU USE ONLYNotes: WASTE: F/P - Sink; E - Municipal Trash Bin Inactive 06/17/2016 [facility] Saline Flush 0.9% 10 ml, Route: IVP, Drug Form: INJ, Dosing Weight 51.364, kg, Q12H, Start date: 06/16/16 9:00:00 OPTICAL EFFECTS CAMERA OPERATOR, Duration: 30 day, Stop date: 07/15/16 21:00:00 CSTNotes: (Same as: BD Posiflush) No Longer Active 06/16/2016 [facility] pantoprazole 40 mg, Route: IVP, Drug form: INJ, Daily, Dosing Weight 51.364, kg, Start date: 06/16/16 9:00:00 OPTICAL EFFECTS CAMERA OPERATOR, Duration: 30 day, Stop date: 07/15/16 9:00:00 CSTNotes: For IV push reconstitute with 10 ml 0.9% sodium chloride and push over 2 minutes. (Same as: Protonix) No Longer Active 06/16/2016 [facility] Methimazole 20 mg, 4 tab, Route: PO, Drug form: TAB, Q8H, Dosing Weight 51.364, kg, Start date: 06/16/16 8:00:00 OPTICAL EFFECTS CAMERA OPERATOR, Stop date: 07/16/16 0:00:00 OPTICAL EFFECTS CAMERA OPERATOR No Longer Active 06/16/2016 [facility] hydrocortisone 100 mg injection 100 mg, 2 mL, Route: IV, Drug form: PDR/INJ, Q6H, Dosing Weight 51.364, kg, Start date: 06/16/16 6:00:00 OPTICAL EFFECTS CAMERA OPERATOR, Duration: 30 day, Stop date: 07/16/16 0:00:00 CSTNotes: (Same as: Solu- CORTEF) No Longer Active 06/16/2016 [facility] Propranolol 40 mg, 1 tab, Route: PO, Drug form: TAB, QID, Dosing Weight 51.364, kg, Start date: 06/16/16 6:00:00 OPTICAL EFFECTS CAMERA OPERATOR, Stop date: 07/16/16 0:00:00 CSTNotes: Give with food. (Same as: Inderal) No Longer Active 06/16/2016 [facility] potassium chloride 10 mEq, 100 mL, Route: IVPB, Drug form: INJ, Q1H, Dosing Weight 51.364, kg, Total dose=40 mEq, Start date: 06/16/16 4:00:00 OPTICAL EFFECTS CAMERA OPERATOR, Duration: 4 doses or times, Stop date: 06/16/16 7:00:00 OPTICAL EFFECTS CAMERA OPERATOR, Central LineNotes: Infuse at a rate of 10 mEq/hr. (Same as: KCL) Inactive 06/16/2016 [facility] Tramadol 50 mg, PO, Q12H, PRN Pain, # 20 tab, 0 Refill(s) No Longer Active 06/16/2016 [facility] Methimazole 10 mg, PO, Q8H, 0 Refill(s) On Hold 06/16/2016 [facility] metoprolol tartrate 25 mg, PO, BID, 0 Refill(s) No Longer Active 06/16/2016 [facility] Promethazine 25 mg, PO, TID, PRN as needed for nausea/vomiting, 0 Refill(s) No Longer Active 06/16/2016 [facility] Zosyn 3.375 gm, Route: IVPB, [id number], Dosing Weight 51.364, kg, CrCl >=20 ml/min infuse over 4 hours, Start date: 06/16/16 2:00:00 OPTICAL EFFECTS CAMERA OPERATOR, Duration: 30 day, Stop date: 07/15/16 18:00:00 CSTNotes: (Same as: Zosyn) Dosing based on Piperacillin component No Longer Active 06/16/2016 [facility] potassium chloride 20 mEq, 100 mL, Route: IVPB, Drug form: INJ, Q2H, Dosing Weight 51.364, kg, Total dose=40 mEq, Start date: 06/16/16 2:00:00 OPTICAL EFFECTS CAMERA OPERATOR, Duration: 2 doses or times, Stop date: 06/16/16 4:00:00 OPTICAL EFFECTS CAMERA OPERATOR, Central LineNotes: (Same as: KCL) Infuse no faster than 10 mEq/hr if given peripherally. Inactive 06/16/2016 [facility] Enoxaparin 40 mg, 0.4 mL, Route: SUB-Q, Drug form: INJ, [id number], Dosing Weight 51.364, kg, Start date: 06/16/16 2:00:00 OPTICAL EFFECTS CAMERA OPERATOR, Duration: 30 day, Stop date: 07/15/16 2:00:00 CSTNotes: (Same as: Lovenox) No Longer Active 06/16/2016 [facility] Metoprolol 5 mg, 5 mL, Route: IV, Drug form: INJ, ONCE, Dosing Weight 51.364, kg, Start date: 06/16/16 1:33:00 OPTICAL EFFECTS CAMERA OPERATOR, Stop date: 06/16/16 1:33:00 CSTNotes: (Same as: Lopressor) Push over 2 minutes Inactive 06/16/2016 [facility] Tylenol 650 mg, 2 tab, Route: PO, Drug form: TAB, Q6H, Dosing Weight 51.364, kg, PRN Pain Score 1-3, Start date: 06/16/16 1:23:00 OPTICAL EFFECTS CAMERA OPERATOR, Duration: 30 day, Stop date: 07/16/16 1:22:00 CSTNotes: Do not exceed 4 gm/day. (Same as: Tylenol) No Longer Active 06/16/2016 [facility] Dilaudid 0.5 mg, Route: IVP, ONCE, Dosing Weight 51.364, kg, Priority: STAT, Start date: 06/16/16 1:04:00 OPTICAL EFFECTS CAMERA OPERATOR, Stop date: 06/16/16 1:04:00 OPTICAL EFFECTS CAMERA OPERATOR Inactive 06/16/2016 [facility] Propranolol 1 mg, 1 mL, Route: IVP, Drug form: INJ, ONCE, Dosing Weight 51.364, kg, Start date: 06/16/16 0:36:00 OPTICAL EFFECTS CAMERA OPERATOR, Stop date: 06/16/16 0:36:00 CSTNotes: (Same as: Inderal) Inactive 06/16/2016 [facility] Morphine 4 mg, 2 mL, Route: IVP, Drug form: INJ, Q4H, Dosing Weight 51.364, kg, PRN Pain Score 7-10, Start date: 06/16/16 0:32:00 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, Duration: 30 day, Stop date: 07/16/16 0:31:00 CSTNotes: (Same as:MORPhine Sulfate) No Longer Active 06/16/2016 [facility] Sodium Chloride 0.154 MEQ/ML Injectable Solution 1,000 mL, Rate: 125 ml/hr, Infuse over: 8 hr, Route: IV, Dosing Weight 51.364 kg, Total Volume: 1,000, Start date: 06/16/16 0:32:00 OPTICAL EFFECTS CAMERA OPERATOR, Duration: 30 day, Stop date: 07/16/16 0:31:00 OPTICAL EFFECTS CAMERA OPERATOR No Longer Active 06/16/2016 [facility] Saline Flush 0.9% 10 ml, Route: IVP, Drug Form: INJ, Dosing Weight 51.364, kg, PRN, PRN Line Flush, Start date: 06/16/16 0:32:00 OPTICAL EFFECTS CAMERA OPERATOR, Duration: 30 day, Stop date: 07/16/16 0:31:00 CSTNotes: (Same as: BD Posiflush) No Longer Active 06/16/2016 [facility] Ondansetron 4 mg, 2 mL, Route: IVP, Drug form: INJ, Q8H, Dosing Weight 51.364, kg, PRN Nausea & Vomiting, Start date: 06/16/16 0:32:00 OPTICAL EFFECTS CAMERA OPERATOR, Duration: 30 day, Stop date: 07/16/16 0:31:00 CSTNotes: (Same as: Zofran) MEDICATION WASTE Product Size: 4 mg Product Wasted: ___ mg No Longer Active 06/16/2016 [facility] Nystatin 100 UNT/MG Topical Powder 1 appl, Route: TOP, PRN, Drug form: PWDR, PRN For Fungal Prophylaxis, Start date: 06/16/16 0:32:00 OPTICAL EFFECTS CAMERA OPERATOR, Duration: 30 day, Stop date: 07/16/16 0:31:00 CSTNotes: (Same as:Mycostatin, Nilstat) For external use only. No Longer Active 06/16/2016 [facility] Acetaminophen 650 mg, 2 tab, Route: PO, Drug form: TAB, Q4H, Dosing Weight 51.364, kg, PRN For Temp > 100.4 F, Start date: 06/16/16 0:32:00 OPTICAL EFFECTS CAMERA OPERATOR, Duration: 30 day, Stop date: 07/16/16 0:31:00 CSTNotes: Do not exceed 4 gm/day. (Same as: Tylenol) No Longer Active 06/16/2016 [facility] potassium iodide 130 mg, Route: PO, Drug form: SOLN, ONCE, Dosing Weight 51.364, kg, Priority: STAT, Start date: 06/16/16 0:23:00 OPTICAL EFFECTS CAMERA OPERATOR, Stop date: 06/16/16 0:23:00 CSTNotes: (Same as: Strong Iodine soln 5%) Inactive 06/16/2016 [facility] Potassium Iodide 130 mg, Route: PO, Drug form: SOLN, ONCE, Dosing Weight 51.364, kg, Priority: STAT, Start date: 06/16/16 0:03:00 OPTICAL EFFECTS CAMERA OPERATOR, Stop date: 06/16/16 0:03:00 CSTNotes: (Same as: Strong Iodine soln 5%) Inactive 06/16/2016 [facility] NS + KCL 40mEq/L 1000ml (Premix) 1,000 mL 1,000 mL, Rate: 125 ml/hr, Infuse over: 8 hr, Route: IV, Dosing Weight 51.364 kg, Total Volume: 1,000, Priority: STAT, Start date: 06/15/16 23:03:00 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, Duration: 30 day, Stop date: 07/15/16 23:02:00 CSTNotes: PREMIX IV - Do Not Alter WASTE: F/P - Sink; E - [employer] Trash Bin No Longer Active 06/16/2016 [facility] Dilaudid 0.5 mg, 0.5 mL, Route: IVP, Drug form: INJ, ONCE, Dosing Weight 51.364, kg, Priority: STAT, Start date: 06/15/16 23:03:00 [employer] E[employer] CAMERA OPERATOR, Stop date: 06/15/16 23:03:00 [employer] CAMERA OPERATOR Inactive 06/16/2016 [facility] Methimazole 40 mg, 4 tab, Route: PO, Drug form: TAB, ONCE, Dosing Weight 51.364, kg, Priority: STAT, Start date: 06/15/16 21:43:00 [employer] E[employer] CAMERA OPERATOR, Stop date: 06/15/16 21:43:00 [employer] E[employer] CAMERA OPERATOR Inactive 06/16/2016 [facility] Hydrocortisone 100 mg, 2 mL, Route: IV, Drug form: PDR/INJ, ONCE, Dosing Weight 51.364, kg, Priority: STAT, Start date: 06/15/16 21:43:00 [employer] E[employer]ECTS CAMERA OPERATOR, Stop date: 06/15/16 21:43:00 CSTNotes: (Same as: Solu-CORTEF) Inactive 06/16/2016 [facility] Propranolol 2 mg, 2 mL, Route: IV, Drug form: INJ, ONCE, Dosing Weight 51.364, kg, Priority: STAT, Start date: 06/15/16 21:42:00 [employer] E[employer]ECTS CAMERA OPERATOR, Stop date: 06/15/16 21:42:00 CSTNotes: (Same as: Inderal) Inactive 06/16/2016 [facility] Sodium Chloride 0.154 MEQ/ML Injectable Solution 1,000 mL, Rate: 250 ml/hr, Infuse over: 4 hr, Route: IV, Dosing Weight 51.364 kg, Total Volume: 1,000, Start date: 06/15/16 21:40:00 [employer] E[employer]ECTS CAMERA OPERATOR, Duration: 30 day, Stop date: 07/15/16 21:39:00 [employer] E[employer] CAMERA OPERATOR No Longer Active 06/16/2016 [facility] [facility] Dilaudid 0.5 mg, Route: IVP, ONCE, Dosing Weight 51.364, kg, Priority: STAT, Start date: 06/15/16 21:39:00 [employer]ICAL E[employer]ECTS CAMERA OPERATOR, Stop date: 06/15/16 21:39:00 OPTICAL EFFECTS CAMERA OPERATOR Inactive 06/16/2016 [facility] Sodium Chloride 0.154 MEQ/ML Injectable Solution 1,000 mL, 1,000 ml/hr, Infuse Over: 1 hr, Route: IV, 1,000, Drug form: INJ, ONCE, Priority: STAT, Dosing Weight 69.318 kg, Start date: 06/15/16 21:16:00 OPTICAL EFFECTS CAMERA OPERATOR, Duration: 1 doses or times, Stop date: 06/15/16 21:16:00 OPTICAL EFFECTS CAMERA OPERATOR Inactive 06/16/2016 [facility] Zofran 4 mg, 2 mL, Route: IVP, Drug form: INJ, ONCE, Dosing Weight 69.318, kg, Priority: STAT, Start date: 06/15/16 21:16:00 OPTICAL EFFECTS CAMERA OPERATOR, Stop date: 06/15/16 21:16:00 CSTNotes: (Same as: Zofran) MEDICATION WASTE Product Size: 4 mg Product Wasted: ___ mg Inactive 06/16/2016 [facility] Acetaminophen With Codeine (Tylenol With Codeine #3 Tablet) 1 Each Tablet, 300 Mg Oral Every 6 Hours as needed for Pain Active [facility]3] 06/04/2016 [facility] Ferrous Sulfate (Feosol) 325 Mg Tablet, 325 Mg Oral Twice Daily With Meals Active [facility]3] 06/04/2016 [facility] Insulin Detemir 100 Unit/Ml Pen, 10 Unit Sub-Q Bedtime Active [facility]3] 06/04/2016 [facility] Methimazole 5 Mg Tablet, 10 Mg Oral Every 8 Hours Active [facility]3] 06/04/2016 [facility] Methimazole 10 Mg Tablet, 10 Mg Oral Daily Active 06/04/2016 [facility] Metoprolol Succinate (Toprol Xl) 50 Mg Tab.er.24h, 50 Mg Oral Twice A Day Active [facility]3] 06/04/2016 [facility] Potassium Chloride (K Dur*) 10 Meq Tabcr, 10 Meq Oral Daily Active [facility]3] 06/04/2016 [facility] insulin detemir U-100 (LEVEMIR) 100 unit/mL injection Inject 30 Units under the skin every evening . Subcutaneous Active [facility] insulin aspart U-100 (NOVOLOG U-100 INSULIN ASPART) 100 unit/mL injection Inject 12 Units under the skin 3 times daily. Subcutaneous Active [facility] Insulin Aspart (Novolog) 100 Unit/1 Ml Cartridge Three Times Daily With Meals Active [facility] Allergies, Adverse Reactions, Alerts Substance Category Reaction Severity Reaction type Status Date Reported Comments Source NSAIDS (Non-Steroidal Anti-Inflamma Hives Unknown Allergy to Substance Active 08/31/2017 [facility] Cefazolin Propensity to adverse reactions to drug Active 09/23/2017 [facility] Ciprofloxacin Hives Propensity to adverse reactions to drug Active 09/23/2017 [facility] Cephalexin Hives Propensity to adverse reactions to drug Active 09/23/2017 [facility] ciprofloxacin Assertion Drug allergy Active [facility] Ancef Assertion Severe Drug allergy Active [facility] Keflex<sup>1</sup> Assertion Rash, NOS Drug allergy Active tolerated Cefepime during 08/23/16 [place] [facility] for several doses as per MD and as documented in e-MAR [facility] Keflex Assertion Drug allergy Active [facility] Immunizations Immunization Date Given Site Status Last Updated Comments Source pneumococcal 23-valent vaccine 07/30/2016 Not Given [facility], AAKASH Crow,[facility] influenza virus vaccine, inactivated 07/30/2016 Not Given [facility], AAKASH [place],[facility] pneumococcal 23-valent vaccine 06/20/2016 Not Given [facility] Results Order Name Results Value Reference Range Date Interpretation Comments Source BLOOD BANK RESULTS RBC product Product available (09/03/18 8:07 AM) 09/03/2018 [facility] BLOOD BANK RESULTS Antibody Scrn Negative (09/01/18 10:49 AM) 09/01/2018 [facility] BLOOD BANK RESULTS ABO/Rh O POS 09/01/2018 [facility] BLOOD BANK RESULTS RBC product Product available (09/01/18 7:00 AM) 09/01/2018 [facility] Automated urine sediment leukocyte count by microscopy (number/high power field) Automated urine sediment leukocyte count by microscopy (number/high power field) >50 0 - 5 04/20/2018 [facility] Bacteria detection in urine sediment by light microscopy Bacteria detection in urine sediment by light microscopy RARE NONE 04/20/2018 [facility] Epithelial cells detection in urine sediment by light microscopy Epithelial cells detection in urine sediment by light microscopy NONE NONE 04/20/2018 [facility] Erythrocytes detection in urine sediment by light microscopy Erythrocytes detection in urine sediment by light microscopy <20 0 - 5 04/20/2018 [facility] Specific gravity of Urine by Test strip Specific gravity of Urine by Test strip 1.020 1.010 - 1.025 04/20/2018 [facility] Urine clarity Urine clarity CLEAR CLEAR 04/20/2018 [facility] Urine color determination Urine color determination YELLOW YELLOW 04/20/2018 [facility] Urine erythrocytes detection Urine erythrocytes detection 3+ NEGATIVE 04/20/2018 [facility] Urine glucose detection Urine glucose detection NEGATIVE NEGATIVE 04/20/2018 [facility] Urine human chorionic gonadotropin (hCG) detection Urine human chorionic gonadotropin (hCG) detection NEGATIVE NEGATIVE 04/20/2018 [facility] Urine ketones detection by automated test strip Urine ketones detection by automated test strip NEGATIVE NEGATIVE 04/20/2018 [facility] Urine leukocyte esterase detection by dipstick Urine leukocyte esterase detection by dipstick 2+ NEGATIVE 04/20/2018 [facility] Urine nitrite detection Urine nitrite detection NEGATIVE NEGATIVE 04/20/2018 [facility] Urine pH measurement by automated test strip Urine pH measurement by automated test strip 6 5 - 7 04/20/2018 [facility] Urine protein measurement by test strip (mass/volume) Urine protein measurement by test strip (mass/volume) 1+ NEGATIVE 04/20/2018 [facility] Urine total bilirubin measurement (mass/volume) Urine total bilirubin measurement (mass/volume) NEGATIVE NEGATIVE 04/20/2018 [facility] Urine urobilinogen measurement by test strip (mass/volume) Urine urobilinogen measurement by test strip (mass/volume) 0.2 0.2 - 1 04/20/2018 [facility] URINE AND STOOL UA Color Ltyellow 10/30/2017 [facility] URINE AND STOOL UA Hyph Yeast Occasional *ABN* (10/29/17 11:06 PM) None Seen 10/30/2017 [facility] URINE AND STOOL UA RBC 11 0 - 2 10/30/2017 [facility] URINE AND STOOL UA WBC >182 0 - 5 10/30/2017 [facility] URINE AND STOOL UA Urobilinogen <=1.0 mg/dL 0.1 - 1.0 10/30/2017 [facility] URINE AND STOOL UA Vista Yeast Few /HPF None Seen /HPF 10/30/2017 [facility] URINE AND STOOL UA Mucus Few /LPF None Seen /LPF 10/30/2017 [facility] URINE AND STOOL UA Bacteria Occasional /HPF None Seen /HPF 10/30/2017 [facility] URINE AND STOOL UA Sq Epi Occasional /LPF Few /LPF 10/30/2017 [facility] URINE AND STOOL UA Leuk Est Large *ABN* (10/29/17 11:06 PM) Negative 10/30/2017 [facility] URINE AND STOOL UA Nitrite Negative (10/29/17 11:06 PM) Negative 10/30/2017 [facility] URINE AND STOOL UA Blood Large *ABN* (10/29/17 11:06 PM) Negative 10/30/2017 [facility] URINE AND STOOL UA Ketones Trace mg/dL Negative mg/dL 10/30/2017 [facility] URINE AND STOOL UA Glucose 500 mg/dL Negative mg/dL 10/30/2017 [facility] URINE AND STOOL UA Bili Negative *NA* (10/29/17 11:06 PM) Negative 10/30/2017 [facility] URINE AND STOOL UA Protein Negative mg/dL Negative mg/dL 10/30/2017 [facility] URINE AND STOOL UA pH 6.0 5.0 - 8.0 10/30/2017 [facility] URINE AND STOOL UA Spec Grav 1.005 <=1.030 10/30/2017 [facility] URINE AND STOOL UA Turbidity Marked *ABN* (10/29/17 11:06 PM) Clear 10/30/2017 [facility] Culture: Urine 10,000 - 50,000 CFU/mL Enterococcus Species 50,000 - 100,000 CFU/mL Gram Negative Rods, Lactose Fermenters <10,000 CFU/mL Gram Negative Rods, Non-Lactose Fermenters Specimen contains 3 or more potential pathogens; recommend correlation with urinalysis; if catheterized specimen recommend removal and recollection. If clinical situation warrants please call the laboratory for further testing. [place] [facility] [phone]. 10/30/2017 [facility] BLOOD BANK RESULTS ABO/Rh O POS 10/30/2017 [facility] BLOOD BANK RESULTS Antibody Scrn Negative (10/29/17 8:49 PM) 10/30/2017 [facility] CARDIAC ENZYMES CK MB Index 2.5 0.0 - 2.5 10/30/2017 [facility] CARDIAC ENZYMES Total CK 57 12 - 191 10/30/2017 [facility] CARDIAC ENZYMES CK MB 1.4 0.5 - 3.6 10/30/2017 [facility] CARDIAC ENZYMES Troponin-I <0.02 0.00 - 0.40 10/30/2017 [facility] CHEM PANEL eGFR 91 10/30/2017 Result Comment: [...] should be multiplied by the estimated BMI. [facility] CHEM PANEL Bili Total 0.9 0.2 - 1.3 10/30/2017 [facility] CHEM PANEL ALT 34 0 - 65 10/30/2017 [facility] CHEM PANEL Alk Phos 199 39 - 136 10/30/2017 [facility] CHEM PANEL AST 65 0 - 37 10/30/2017 [facility] CHEM PANEL AGAP 21.2 10.0 - 20.0 10/30/2017 [facility] CHEM PANEL Calcium Lvl 8.3 8.5 - 10.5 10/30/2017 [facility] CHEM PANEL CO2 17 24 - 32 10/30/2017 [facility] CHEM PANEL Globulin 6.8 2.7 - 4.2 10/30/2017 [facility] CHEM PANEL A/G Ratio 0.4 0.7 - 1.6 10/30/2017 [facility] CHEM PANEL B/C Ratio 39 6 - 25 10/30/2017 [facility] CHEM PANEL Albumin Lvl 2.8 3.5 - 5.0 10/30/2017 [facility] CHEM PANEL Total Protein 9.6 6.4 - 8.4 10/30/2017 [facility] CHEM PANEL Sodium Lvl 118 135 - 145 10/30/2017 [facility] CHEM PANEL Potassium Lvl 5.2 3.5 - 5.1 10/30/2017 [facility] CHEM PANEL Chloride Lvl 85 95 - 109 10/30/2017 [facility] CHEM PANEL Creatinine Lvl 0.80 0.50 - 1.40 10/30/2017 [facility] CHEM PANEL Glucose Lvl 470 70 - 99 10/30/2017 Result Comment: Critical Result(s) called Jossy Matamoros at 10/29/2017 21:26 by evelyn. Read back OK. [facility] CHEM PANEL BUN 31 7 - 22 10/30/2017 [facility] CHEM PANEL Lipase Lvl 294 73 - 393 10/30/2017 [facility] CHEM PANEL Ketone Quantitative 4.92 <=0.27 mmol/L 10/30/2017 [facility] CHEM PANEL Lactic Acid Lvl 3.8 0.5 - 2.2 10/30/2017 [facility] ENDOCRINOLOGY S Preg Negative *NA* (10/29/17 8:49 PM) Negative 10/30/2017 [facility] PTT 28.6 22.9 - 35.8 10/30/2017 [facility] HEMATOLOGY PT 15.8 12.0 - 14.7 10/30/2017 [facility] INR 1.25 0.85 - 1.17 10/30/2017 [facility] Hct 43.6 36.0 - 48.0 10/30/2017 [facility] MCV 75.8 80.0 - 98.0 10/30/2017 [facility] MPV 11.7 7.4 - 10.4 10/30/2017 [facility] Platelet 251 133 - 450 10/30/2017 [facility] MCHC 32.7 32.0 - 36.0 10/30/2017 [facility] RDW 23.5 11.5 - 14.5 10/30/2017 [facility] MCH 24.8 27.0 - 31.0 10/30/2017 [facility] WBC 7.6 3.7 - 10.4 10/30/2017 [facility] RBC 5.75 4.20 - 5.40 10/30/2017 [facility] Hgb 14.3 12.0 - 16.0 10/30/2017 [facility] Microcyte 1+ *ABN* (10/29/17 8:49 PM) None Seen 10/30/2017 [facility] Monocytes # 1.0 0.0 - 0.8 10/30/2017 [facility] Lymphocytes # 1.7 1.0 - 5.5 10/30/2017 [facility] Segs-Bands # 4.9 1.5 - 8.1 10/30/2017 [facility] Basophils 0.1 0.0 - 1.0 10/30/2017 [facility] Eosinophils 0.1 0.0 - 4.0 10/30/2017 [facility] Monocytes 13.2 2.0 - 12.0 10/30/2017 [facility] Lymphocytes 22.8 20.0 - 40.0 10/30/2017 [facility] Segs 63.8 45.0 - 75.0 10/30/2017 [facility] Anisocyte 1+ *ABN* (10/29/17 8:49 PM) None Seen 10/30/2017 [facility] Plt Morph Normal (10/29/17 8:49 PM) 10/30/2017 [facility] Estimated glomerular filtration rate (GFR) determination Estimated glomerular filtration rate (GFR) determination >60 60 10/24/2017 [facility] Glucose measurement Glucose measurement 141 74 - 118 10/24/2017 [facility] Serum or plasma anion gap Serum or plasma anion gap 24.0 8 - 16 10/24/2017 [facility] Serum or plasma calcium measurement (mass/volume) Serum or plasma calcium measurement (mass/volume) 8.3 8.4 - 10.2 10/24/2017 [facility] Serum or plasma carbon dioxide, total measurement (moles/volume) Serum or plasma carbon dioxide, total measurement (moles/volume) 12 22 - 29 10/24/2017 [facility] Serum or plasma chloride measurement (moles/volume) Serum or plasma chloride measurement (moles/volume) 102 98 - 107 10/24/2017 [facility] Serum or plasma creatinine measurement (mass/volume) Serum or plasma creatinine measurement (mass/volume) 0.65 0.57 - 1.11 10/24/2017 [facility] Serum or plasma potassium measurement (moles/volume) Serum or plasma potassium measurement (moles/volume) 4.0 3.5 - 5.1 10/24/2017 [facility] Serum or plasma sodium measurement (moles/volume) Serum or plasma sodium measurement (moles/volume) 134 136 - 145 10/24/2017 [facility] Serum or plasma urea nitrogen measurement (mass/volume) Serum or plasma urea nitrogen measurement (mass/volume) 23 7 - 26 10/24/2017 [facility] Serum or plasma urea nitrogen/creatinine mass ratio Serum or plasma urea nitrogen/creatinine mass ratio 35 6 - 25 10/24/2017 [facility] Automated blood basophil count (count/volume) Automated blood basophil count (count/volume) 0.0 0.0 - 0.1 10/23/2017 [facility] Automated blood basophil count as percentage of total leukocytes Automated blood basophil count as percentage of total leukocytes 0.3 0.0 - 1.0 10/23/2017 [facility] Automated blood eosinophil count Automated blood eosinophil count 0.0 0.0 - 0.4 10/23/2017 [facility] Automated blood eosinophil count as percentage of total leukocytes Automated blood eosinophil count as percentage of total leukocytes 0.4 0.0 - 6.0 10/23/2017 [facility] Automated blood hematocrit (volume fraction) Automated blood hematocrit (volume fraction) 41.7 34.2 - 44.1 10/23/2017 [facility] Automated blood lymphocyte count as percentage ot total leukocytes Automated blood lymphocyte count as percentage ot total leukocytes 26.7 18.0 - 39.1 10/23/2017 [facility] Automated blood monocyte count as percentage of total leukocytes Automated blood monocyte count as percentage of total leukocytes 11.5 4.4 - 11.3 10/23/2017 [facility] Automated blood neutrophil count Automated blood neutrophil count 4.4 2.1 - 6.9 10/23/2017 [facility] Automated blood platelet count (count/volume) Automated blood platelet count (count/volume) 372 140 - 360 10/23/2017 [facility] Automated blood segmented neutrophil count as percentage of total leukocytes Automated blood segmented neutrophil count as percentage of total leukocytes 60.8 38.7 - 80.0 10/23/2017 [facility] Automated erythrocyte mean corpuscular hemoglobin (mass per erythrocyte) Automated erythrocyte mean corpuscular hemoglobin (mass per erythrocyte) 23.4 28 - 32 10/23/2017 [facility] Automated erythrocyte mean corpuscular hemoglobin concentration measurement (mass/volume) Automated erythrocyte mean corpuscular hemoglobin concentration measurement (mass/volume) 31.2 31 - 35 10/23/2017 [facility] Automated erythrocyte mean corpuscular volume Automated erythrocyte mean corpuscular volume 75.0 81 - 99 10/23/2017 [facility] Blood erythrocytes automated count (number/volume) Blood erythrocytes automated count (number/volume) 5.56 3.6 - 5.1 10/23/2017 [facility] Blood hemoglobin measurement (moles/volume) Blood hemoglobin measurement (moles/volume) 13.0 12.0 - 16.0 10/23/2017 [facility] Blood leukocytes automated count (number/volume) Blood leukocytes automated count (number/volume) 7.15 4.8 - 10.8 10/23/2017 [facility] Blood lymphocytes count (number/volume) Blood lymphocytes count (number/volume) 1.9 1.0 - 3.2 10/23/2017 [facility] Blood monocytes automated count (number/volume) Blood monocytes automated count (number/volume) 0.8 0.2 - 0.8 10/23/2017 [facility] Plasma globulin measurement (mass/volume) Plasma globulin measurement (mass/volume) 6.0 2.3 - 3.5 10/23/2017 [facility] Serum or plasma alanine aminotransferase measurement (enzymatic activity/volume) Serum or plasma alanine aminotransferase measurement (enzymatic activity/volume) 26 0 - 55 10/23/2017 [facility] Serum or plasma albumin measurement (mass/volume) Serum or plasma albumin measurement (mass/volume) 3.4 3.5 - 5.0 10/23/2017 [facility] Serum or plasma albumin/globulin mass ratio Serum or plasma albumin/globulin mass ratio 0.6 0.8 - 2.0 10/23/2017 [facility] Serum or plasma alkaline phosphatase measurement (enzymatic activity/volume) Serum or plasma alkaline phosphatase measurement (enzymatic activity/volume) 220 40 - 150 10/23/2017 [facility] Serum or plasma protein measurement (mass/volume) Serum or plasma protein measurement (mass/volume) 9.4 6.5 - 8.1 10/23/2017 [facility] Serum or plasma total bilirubin measurement (mass/volume) Serum or plasma total bilirubin measurement (mass/volume) 0.6 0.2 - 1.2 10/23/2017 [facility] Red Cell Distribution Width 22.8 11.7 - 14.4 10/23/2017 [facility] IM GRANULOCYTES % 0.3 0.0 - 1.0 10/23/2017 [facility] Absolute Immature Granulocyte (auto 0.02 0 - 0.1 10/23/2017 [facility] Aspartate Amino Transf (AST/SGOT) 34 5 - 34 10/23/2017 [facility] THYROID STIM IMMUN Thyroid Stim Immun (note) RESULT: 2.80 High UNIT: IU/L REFERENCE INTERVAL: 0.00-0.55 10/18/2017 [facility] THYROID PEROXIDASE (TPO) AB Thy Perox (TPO) Ab 120 Reference range: 0 to 34 Unit: IU/mL 10/07/2017 [facility] THYROID PEROXIDASE (TPO) AB Lab Interpretation Abnormal 10/07/2017 [facility] PATHOLOGIST REVIEW Pathologist Review Gama Hernandez M.D./[id number] (note) Pt name: Chika Bojorquez PB smear bar code# [id number] CBC and peripheral blood smear review: Microcytic, hypochromatic anemia CBC and differential confirmed Morphology: RBCs: Decreased in number; microocytic, hypochromic; mild anisopoikilocytosis; polychromasia not adequate; schistocytes absent; nucleated RBCs absent; intracellular organisms absent. WBCs: normal in number; normal morphology; dysplasia absent; rare plasma cells present Platelets: normal in number; normal morphology many large forms. platelet clumps present CPT 15996 Gama Hernandez MD #[id number] 09/30/2017 [facility] GLUCOSE POC Glucose POC 205 74 - 106 09/30/2017 [facility] GLUCOSE POC Lab Interpretation Abnormal 09/30/2017 [facility] BASIC METABOLIC PANEL CO2 25 21 - 32 09/30/2017 [facility] BASIC METABOLIC PANEL Chloride 105 98 - 107 09/30/2017 [facility] BASIC METABOLIC PANEL Potassium 3.6 3.5 - 5.1 09/30/2017 [facility] BASIC METABOLIC PANEL Sodium 138 136 - 145 09/30/2017 [facility] BASIC METABOLIC PANEL Glucose 193 70 - 99 09/30/2017 [facility] BASIC METABOLIC PANEL Urea Nitrogen 10 7 - 18 09/30/2017 [facility] BASIC METABOLIC PANEL Creatinine 0.30 0.6 - 1.3 09/30/2017 [facility] BASIC METABOLIC PANEL Anion Gap 8 09/30/2017 [facility] BASIC METABOLIC PANEL Calcium 8.3 8.5 - 10.2 09/30/2017 [facility] BASIC METABOLIC PANEL GFR, Estimated >60 mL/min/1.73 m2 09/30/2017 [facility] BASIC METABOLIC PANEL GFR, Estim, Afr-Am >60 mL/min/1.73 m2 09/30/2017 [facility] BASIC METABOLIC PANEL Lab Interpretation Abnormal 09/30/2017 [facility] CBC/DIFF WBC 3.7 4.5 - 11 09/30/2017 [facility] CBC/DIFF RBC 3.62 4.20 - 5.40 09/30/2017 [facility] CBC/DIFF Hemoglobin 7.8 12 - 16 09/30/2017 [facility] CBC/DIFF Hematocrit 27.0 37 - 47 09/30/2017 [facility] CBC/DIFF MCV 75 82 - 92 09/30/2017 [facility] CBC/DIFF MCH 21.5 27 - 32 09/30/2017 [facility] CBC/DIFF MCHC 28.9 32 - 36 09/30/2017 [facility] CBC/DIFF RDW 54.4 36.4 - 46.3 09/30/2017 [facility] CBC/DIFF Platelet 300 150 - 400 09/30/2017 [facility] CBC/DIFF Mean Platelet Volume 11.4 9.4 - 12.4 09/30/2017 [facility] CBC/DIFF Percent NRBC 0.0 09/30/2017 [facility] CBC/DIFF Absolute NRBC 0.00 09/30/2017 [facility] CBC/DIFF Neutrophil 44.5 34 - 70 09/30/2017 [facility] CBC/DIFF Lymphocyte 37.9 20 - 50 09/30/2017 [facility] CBC/DIFF Monocyte 12.4 5 - 12 09/30/2017 [facility] CBC/DIFF Eosinophil 4.6 0.7 - 5 09/30/2017 [facility] CBC/DIFF Basophil 0.3 0.1 - 1.2 09/30/2017 [facility] CBC/DIFF Pct Immat Gran 0.3 0.0 - 0.5 09/30/2017 [facility] CBC/DIFF Neutrophil, Abs 1.66 1.56 - 6.13 09/30/2017 [facility] CBC/DIFF Lymphocyte, Abs 1.41 1.18 - 3.74 09/30/2017 [facility] [facility] CBC/DIFF Monocyte, Abs 0.46 0.24 - 0.36 09/30/2017 [facility] CBC/DIFF Eosinophil, Abs 0.17 0.04 - 0.36 09/30/2017 [facility] CBC/DIFF Basophil, Abs 0.01 0.01 - 0.08 09/30/2017 [facility] CBC/DIFF Absol Immat Gran 0.01 0 - 0.03 09/30/2017 [facility] CBC/DIFF Lab Interpretation Abnormal 09/30/2017 [facility] VITAMIN B12 Vitamin B12 656 211 - 911 09/29/2017 [facility] FERRITIN Ferritin 30.60 11 - 306.8 09/29/2017 [facility] FOLIC ACID Folic Acid 19.9 5.9 - 24.8 09/29/2017 [facility] HAPTOGLOBIN Haptoglobin 206.5 44 - 215 09/29/2017 [facility] IRON PROFILE Iron 182 50 - 212 09/29/2017 [facility] IRON PROFILE TIBC 312 250 - 450 09/29/2017 [facility] IRON PROFILE % Iron Sat 58 09/29/2017 [facility] LDH LDH 161 84 - 246 09/29/2017 [facility] RETIC COUNT Retic Count 1.3 0.5 - 1.7 09/29/2017 [facility] RETIC COUNT Immature Retic 18.2 3 - 15.9 09/29/2017 [facility] RETIC COUNT Ret Hgb Equivalent 23.00 30.8 - 36.6 09/29/2017 [facility] RETIC COUNT Absolute Retic 0.05 0.02 - 0.08 09/29/2017 [facility] RETIC COUNT Lab Interpretation Abnormal 09/29/2017 [facility] HEPATITIS PANEL HCV IgG Negative NEG 09/29/2017 [facility] HEPATITIS PANEL HBsAg Negative NEG 09/29/2017 [facility] HEPATITIS PANEL HAV, IgM Negative NEG 09/29/2017 [facility] HEPATITIS PANEL HBcAb, IgM Negative NEG 09/29/2017 [facility] VANCOMYCIN, TROUGH Vancomycin, Trough 9.7 10 - 20 09/29/2017 [facility] VANCOMYCIN, TROUGH Lab Interpretation Abnormal 09/29/2017 [facility] LIVER PROFILE T Protein 6.9 6.4 - 8.2 09/28/2017 [facility] LIVER PROFILE Albumin 2.6 3.4 - 5 09/28/2017 [facility] LIVER PROFILE T Bilirubin 0.3 0.2 - 1 09/28/2017 [facility] LIVER PROFILE Alk Phos 179 45 - 117 09/28/2017 [facility] LIVER PROFILE AST 26 15 - 37 09/28/2017 [facility] LIVER PROFILE ALT 21 12 - 78 09/28/2017 [facility] LIVER PROFILE D Bilirubin 0.1 0 - 0.2 09/28/2017 [facility] LIVER PROFILE Lab Interpretation Abnormal 09/28/2017 [facility] MAGNESIUM Magnesium 1.4 1.8 - 2.4 09/28/2017 [facility] MAGNESIUM Lab Interpretation Abnormal 09/28/2017 [facility] PHOSPHORUS Phosphorus 2.6 2.5 - 4.9 09/28/2017 [facility] TOTAL T3 Total T3 >800 87 - 178 09/28/2017 [facility] TOTAL T3 Lab Interpretation Abnormal 09/28/2017 [facility] URINE DRUG SCREEN Amphetamine Negative NEG 09/27/2017 Calibrated Standard: D-Methamphetamine
Positive if urine level >sw=5457 ng/mL

[facility] URINE DRUG SCREEN Barbiturate Negative NEG 09/27/2017 Calibrated Standard: Secobarbital
Positive if urine level is >sk=182 ng/mL

[facility] URINE DRUG SCREEN Benzodiazepine Negative NEG 09/27/2017 Calibrated Standard: Lormethazepam
Positive if urine level is >no=785 ng/mL

[facility] URINE DRUG SCREEN Cannabinoid Negative NEG 09/27/2017 Calibrated Standard: 11 nor-delta(9)-THC carboxylic a
Positive if urine level >or=50

[facility] URINE DRUG SCREEN Cocaine Negative NEG 09/27/2017 Calibrated Standard: Benzoylecgonine
Positive if urine level >yz=917

[facility] URINE DRUG SCREEN Opiate, Ur Positive NEG 09/27/2017 Calibrated Standard: Morphine
Positive if urine level >zq=832

[facility] URINE DRUG SCREEN PCP Negative NEG 09/27/2017 Calibrated Standard: Phencyclidine
Positive if urine level >or=25
Urine Toxicology Screen results are to be used only for Medical purposes.

[facility] URINE DRUG SCREEN Lab Interpretation Abnormal 09/27/2017 [facility] PT/INR/PTT PT 14.6 11.8 - 15.0 09/27/2017 [facility] PT/INR/PTT INR 1.1 SUGGESTED THERAPEUTIC RANGES: INR 2.0-3.0 for MODERATE INTENSITY ANTICOAGULATION INR 2.5-3.5 for HIGH INTENSITY ANTICOAGULATION 09/27/2017 [facility] PT/INR/PTT PTT 34.3 23.6 - 36.4 09/27/2017 [facility] COMPREHENSIVE METABOLIC PANEL(DBIL NOT INCLUDED) Albumin 2.7 3.4 - 5 09/27/2017 [facility] COMPREHENSIVE METABOLIC PANEL(DBIL NOT INCLUDED) Calcium 8.3 8.5 - 10.2 09/27/2017 [facility] COMPREHENSIVE METABOLIC PANEL(DBIL NOT INCLUDED) CO2 25 21 - 32 09/27/2017 [facility] COMPREHENSIVE METABOLIC PANEL(DBIL NOT INCLUDED) Chloride 104 98 - 107 09/27/2017 [facility] COMPREHENSIVE METABOLIC PANEL(DBIL NOT INCLUDED) Creatinine 0.23 0.6 - 1.3 09/27/2017 [facility] COMPREHENSIVE METABOLIC PANEL(DBIL NOT INCLUDED) Glucose 124 70 - 99 09/27/2017 [facility] COMPREHENSIVE METABOLIC PANEL(DBIL NOT INCLUDED) Alk Phos 217 45 - 117 09/27/2017 [facility] COMPREHENSIVE METABOLIC PANEL(DBIL NOT INCLUDED) Potassium 3.3 3.5 - 5.1 09/27/2017 [facility] COMPREHENSIVE METABOLIC PANEL(DBIL NOT INCLUDED) Sodium 137 136 - 145 09/27/2017 [facility] COMPREHENSIVE METABOLIC PANEL(DBIL NOT INCLUDED) ALT 22 12 - 78 09/27/2017 [facility] COMPREHENSIVE METABOLIC PANEL(DBIL NOT INCLUDED) AST 31 15 - 37 09/27/2017 [facility] COMPREHENSIVE METABOLIC PANEL(DBIL NOT INCLUDED) Urea Nitrogen 10 7 - 18 09/27/2017 [facility] COMPREHENSIVE METABOLIC PANEL(DBIL NOT INCLUDED) T Bilirubin 0.3 0.2 - 1 09/27/2017 [facility] COMPREHENSIVE METABOLIC PANEL(DBIL NOT INCLUDED) T Protein 7.2 6.4 - 8.2 09/27/2017 [facility] COMPREHENSIVE METABOLIC PANEL(DBIL NOT INCLUDED) GFR, Estimated >60 mL/min/1.73 m2 09/27/2017 [facility] METABOLIC PANEL(DBIL NOT INCLUDED) GFR, Estim, Afr-Am >60 mL/min/1.73 m2 09/27/2017 [facility] METABOLIC PANEL(DBIL NOT INCLUDED) Anion Gap 8 09/27/2017 [facility] METABOLIC PANEL(DBIL NOT INCLUDED) Lab Interpretation Abnormal 09/27/2017 [facility] 12 LEAD EKG 12 LEAD EKG FOR [facility] Test Date:2017-09-26 Pat Name: CHIKA BOJORQUEZ Department: : Gender: FTechnician: [id number] Requested By: Order Number:Reading MD: Merrill BRIGHT Measurements IntervalsAxis Rate: 135P:52 OR: 164QRS:27 QRSD: 81 T:56 QT: 291 QTc:437 Interpretive Statements SINUS TACHYCARDIA POSSIBLE LEFT ATRIAL ENLARGEMENT Poor anterior R wave progression Technically Poor Tracing affects interpretation Abnormal ECG Electronically Signed On 09-27-17 07:49:15 [employer] CAMERA OPERATOR by Merrill BRIGHT 09/27/2017 [facility] FREE T4 Free T4 >6.00 0.61 - 1.12 09/27/2017 females:
1st Trimester-0.52-1.10 ng/dL
2nd Trimester=0.45- 0.99 ng/dL
3rd Trimester=0.48-0.95 ng/dL

[facility] FREE T4 Lab Interpretation Abnormal 09/27/2017 [facility] TSH TSH <0.01 0.45 - 5.33 09/27/2017 [facility] TSH Lab Interpretation Abnormal 09/27/2017 [facility] BEDSIDE ULTRASOUND <p>Lamar Hinojosa MD 11/08/2017 10:40 [...] LV function hyperdynamic, no pericardial effusion. [facility], [place] P[facility] 7.46 7.33 - 7.43 09/27/2017 [facility] pCO2, [place] POC 34.0 38.0 - 50.0 09/27/2017 [facility] pO2, [place] POC 125 50 - 75 09/27/2017 [facility] Base Excess, [place] POC 1 09/27/2017 [facility] HCO3, [place] POC 24.2 22 - 26 09/27/2017 [facility] % Sat, [place] POC 99 60 - 85 09/27/2017 [facility] Lactic Acid, [place] POC 1.66 0.4 - 2 09/27/2017 [facility] TCO2, [place] POC 25 21 - 32 09/27/2017 [facility] Lab Interpretation Abnormal 09/27/2017 [facility] BLOOD CULTURE Spec Description Blood 09/27/2017 [facility] BLOOD CULTURE Order Comments None 09/27/2017 [facility] BLOOD CULTURE Culture No growth 5 days 09/27/2017 [facility] BLOOD CULTURE Report Status Final 10/02/2017 09/27/2017 [facility] UA CHEMISTRIES Color Yellow 09/27/2017 [facility] UA CHEMISTRIES Clarity Cloudy 09/27/2017 [facility] UA CHEMISTRIES Spec [place] 1.020 1.001 - 1.035 09/27/2017 [facility] UA CHEMISTRIES pH 5.0 5 - 8 09/27/2017 [facility] UA CHEMISTRIES Protein 2+ NEG 09/27/2017 [facility] UA CHEMISTRIES Glucose Negative NEG 09/27/2017 [facility] UA CHEMISTRIES Ketone Negative NEG 09/27/2017 [facility] UA CHEMISTRIES Bilirubin Negative NEG 09/27/2017 [facility] UA CHEMISTRIES Nitrate Negative NEG 09/27/2017 [facility] UA CHEMISTRIES Urobilinogen <1.0 0.2 - 1 09/27/2017 [facility] UA CHEMISTRIES Leukocyte 3+ NEG 09/27/2017 [facility] UA CHEMISTRIES Blood 3+ NEG 09/27/2017 [facility] UA CHEMISTRIES RBC >182 0 - 4 09/27/2017 [facility] UA CHEMISTRIES WBC >182 0 - 5 09/27/2017 [facility] UA CHEMISTRIES Bacteria Few 09/27/2017 [facility] UA CHEMISTRIES Yeast Present 09/27/2017 [facility] UA CHEMISTRIES Epithelial Cell 1 /HPF 09/27/2017 [facility] UA CHEMISTRIES Calc Ox [place] Present 09/27/2017 [facility] UA CHEMISTRIES Lab Interpretation Abnormal 09/27/2017 [facility] URINE CULTURE Culture No growth 2 days BT MICROBIOLOGY 09/27/2017 [facility] POC CO2 POC 22 21 - 32 09/27/2017 Physician Notified [facility] POC Chloride POC 98 98 - 107 09/27/2017 [facility] POC Potassium POC 4.2 3.5 - 5.1 09/27/2017 [facility] POC Sodium POC 137 136 - 145 09/27/2017 [facility] POC Glucose POC 193 74 - 106 09/27/2017 [facility] POC Urea Nitrogen POC 12 7 - 18 09/27/2017 [facility] POC Creatinine POC <0.2 0.6 - 1.3 09/27/2017 [facility] POC Calcium Ionized POC 1.15 1.15 - 1.29 09/27/2017 [facility] POC Hemoglobin POC 12.6 12 - 16 09/27/2017 [facility] POC Hematocrit POC 37.0 37 - 47 09/27/2017 [facility] POC GFR, Estimated Unable to calculate, parameters incomplete mL/min/1.73 m2 09/27/2017 [facility] POC GFR, Estim, Afr-Am Unable to calculate, parameters incomplete mL/min/1.73 m2 09/27/2017 [facility] BMP POC Lab Interpretation Abnormal 09/27/2017 [facility] (note) Name CHIKA BOJORQUEZ Date of 1975 Hospital Number [id number] Location Gynecology Clinic CYTOPATHOLOGY Collected:09/23/2017 13:30 Received: [...] analyzed by the automated ThinPrep Imaging System, [employer] [place], [place]. 09/26/2017 [facility] HPV HIGH-RISK HPV High Risk Negative NEG 09/24/2017 The APTIMA HPV Assay is an in vitro nucleic acid amplification test for the
qualitative detection of E6/E7 viral messenger RNA (mRNA) from 14 high-risk
types of human papillomavirus (HPV) in cervical specimens. The high-risk HPV
types detected by the assay include: 16,18,31,33,35,39,45,51,52,56,58,59,66,
and 68.

[facility] HPV HIGH-RISK CoPath Spec Number [id number] 09/24/2017 [facility] SYPHILIS SCREEN FOR INFECTION Treponemal Ab Negative 09/24/2017 [facility] SYPHILIS SCREEN FOR INFECTION Final Report Negative 09/24/2017 [facility] CHLAM/GC DNA AMPLI Chlamydia trach Negative NEG 09/24/2017 [facility] CHLAM/GC DNA AMPLI N gonorrhoeae Negative NEG 09/24/2017 This test utilizes [employer] Aptima Combo 2 Assay for target amplification of
rRNA for the qualitative detection of Chlamydia trachomatis and Neisseria
gonorrhea.

[facility] CHLAM/GC DNA AMPLI Spec Description Endovervical 09/24/2017 [facility] WET MOUNT Spec Description Vaginal 09/24/2017 [facility] WET MOUNT Order Comments None 09/24/2017 [facility] [place]ET [place] Exam WBC's seen Epithelial cells Yeast No Clue cells seen No Trichomonas seen Bacteria present 09/24/2017 [facility] [place]ET M[place] Report Status Final 09/23/2017 09/24/2017 [facility] CLARISSA STAIN Spec Description Vaginal 09/24/2017 [facility] CLARISSA STAIN Order Comments None 09/24/2017 [facility] CLARISSA STAIN Direct Exam Hyphal elements seen 09/24/2017 [facility] CLARISSA STAIN Report Status Final 09/23/2017 09/24/2017 [facility] HEMOGLOBIN A1C Hemoglobin A1c 8.8 4.3 - 6.1 09/24/2017 [facility] HEMOGLOBIN A1C Est Average Gluc 205.9 09/24/2017 [facility] HEMOGLOBIN A1C Lab Interpretation Abnormal 09/24/2017 [facility] HIV-1/HIV-2 DIAGNOSTIC/SYMPTOMATIC HIV-1/HIV-2 Negative NEG 09/23/2017 [facility] Capillary blood glucose measurement by glucometer (mass/volume) Capillary blood glucose measurement by glucometer (mass/volume) 88 70 - 120 09/03/2017 [facility] Serum or plasma triiodothyronine (T3) free measurement (mass/volume) Serum or plasma triiodothyronine (T3) free measurement (mass/volume) 2.1 2.0 - 4.4 09/02/2017 [facility] Free thyroxine index Free thyroxine index [id number] 1.4 - 3.8 09/02/2017 [facility] Serum or plasma thyrotropin measurement by detection limit <=0.005 miu/l (units/volume) Serum or plasma thyrotropin measurement by detection limit <=0.005 miu/l (units/volume) 0.001 0.350 - 4.940 09/02/2017 [facility] Serum or plasma thyroxine (T4) free measurement (mass/volume) Serum or plasma thyroxine (T4) free measurement (mass/volume) 4.73 0.9 - 1.8 09/02/2017 [facility] Serum or plasma thyroxine (T4) measurement (mass/volume) Serum or plasma thyroxine (T4) measurement (mass/volume) >24.00 4.5 - 10.9 09/02/2017 [facility] Serum or plasma triiodothyronine resin uptake (T3RU) Serum or plasma triiodothyronine resin uptake (T3RU) 36.07 22.5 - 37.0 09/02/2017 [facility] Serum or plasma amylase measurement (enzymatic activity/volume) Serum or plasma amylase measurement (enzymatic activity/volume) 54 25 - 125 09/01/2017 [facility] Serum or plasma iron binding capacity measurement (mass/volume) Serum or plasma iron binding capacity measurement (mass/volume) 312 261 - 478 09/01/2017 [facility] Serum or plasma iron measurement (mass/volume) Serum or plasma iron measurement (mass/volume) 17 50 - 170 09/01/2017 [facility] Serum or plasma iron saturation measurement (mass fraction) Serum or plasma iron saturation measurement (mass fraction) 5 15 - 50 09/01/2017 [facility] Serum or plasma lipase measurement (enzymatic activity/volume) Serum or plasma lipase measurement (enzymatic activity/volume) 45 8 - 78 09/01/2017 [facility] Serum or plasma transferrin measurement (mass/volume) Serum or plasma transferrin measurement (mass/volume) 223 180 - 382 09/01/2017 [facility] Blood culture Blood culture NO GROWTH AFTER 5 DAYS, FINAL REPORT 08/31/2017 [facility] Lactic Acid Level 10.7 4.5 - 19.8 08/31/2017 [facility] Serum or plasma choriogonadotropin ( test) detection Serum or plasma choriogonadotropin ( test) detection NEGATIVE NEGATIVE 08/31/2017 [facility] Serum or plasma creatine kinase MB measurement (mass/volume) Serum or plasma creatine kinase MB measurement (mass/volume) 1.20 0.00 - 5.00 08/31/2017 [facility] Serum or plasma creatine kinase measurement (enzymatic activity/volume) Serum or plasma creatine kinase measurement (enzymatic activity/volume) 28 29 - 168 08/31/2017 [facility] Troponin I measurement by highly sensitive enzyme immunoassay Troponin I measurement by highly sensitive enzyme immunoassay 0.014 0 - 0.300 08/31/2017 [facility] Automated fine granular casts count in urine sediment by microscopy lowpower field (number/area) Automated fine granular casts count in urine sediment by microscopy lowpower field (number/area) <5 0 08/31/2017 [facility] Mucus detection in urine sediment by light microscopy Mucus detection in urine sediment by light microscopy MODERATE RARE 08/31/2017 [facility] Yeast detection in urine sediment by light microscopy Yeast detection in urine sediment by light microscopy FEW NONE 08/31/2017 [facility] INR in Platelet poor plasma by Coagulation assay INR in Platelet poor plasma by Coagulation assay 0.97 08/03/2017 [facility] Prothrombin time (PT) in platelet poor plasma by coagulation assay Prothrombin time (PT) in platelet poor plasma by coagulation assay 13.4 11.9 - 14.5 08/03/2017 [facility] Stool gastrointestinal hemoglobin detection Stool gastrointestinal hemoglobin detection NEGATIVE NEGATIVE 08/01/2017 [facility] Phosphorus measurement Phosphorus measurement 2.8 2.3 - 4.7 08/01/2017 [facility] Serum or plasma magnesium measurement (mass/volume) Serum or plasma magnesium measurement (mass/volume) 1.5 1.3 - 2.1 08/01/2017 [facility] Serum or plasma thyroperoxidase antibody assay (units/volume) Serum or plasma thyroperoxidase antibody assay (units/volume) 155 0 - 34 08/01/2017 [facility] Hemoglobin A1c Percent 9.8 4.0 - 7.0 08/01/2017 [facility] Blood anisocytosis detection by light microscopy Blood anisocytosis detection by light microscopy SLIGHT 07/31/2017 [facility] Blood platelets count by estimate (number/volume) Blood platelets count by estimate (number/volume) ADEQUATE 07/31/2017 [facility] Blood poikilocytosis detection by light microscopy Blood poikilocytosis detection by light microscopy SLIGHT 07/31/2017 [facility] Manual basophil percentage Manual basophil percentage 1 0 - 1.5 07/31/2017 [facility] Manual blood lymphocytes/100 leukocytes Manual blood lymphocytes/100 leukocytes 34 19 - 48 07/31/2017 [facility] Manual blood monocytes/100 leukocytes Manual blood monocytes/100 leukocytes 11 3.4 - 9.0 07/31/2017 [facility] Manual blood neutrophils/100 leukocytes Manual blood neutrophils/100 leukocytes 54 40 - 74 07/31/2017 [facility] Platelet morphology Platelet morphology FEW LARGE 07/31/2017 [facility] RBC morphology RBC morphology NORMAL 07/31/2017 [facility] Differential Total Cells Counted 100 07/31/2017 [facility] Barbiturates screen, urine Barbiturates screen, urine NEGATIVE NEGATIVE 07/31/2017 [facility] Urine amphetamines detection by screen method > 1000 ng/mL Urine amphetamines detection by screen method > 1000 ng/mL NEGATIVE NEGATIVE 07/31/2017 [facility] Urine benzodiazepines detection by screening method Urine benzodiazepines detection by screening method POSITIVE NEGATIVE 07/31/2017 [facility] Urine cannabinoids detection by screening method Urine cannabinoids detection by screening method NEGATIVE NEGATIVE 07/31/2017 [facility] Urine opiates screening test Urine opiates screening test NEGATIVE NEGATIVE 07/31/2017 [facility] Urine phencyclidine detection by screening method Urine phencyclidine detection by screening method NEGATIVE NEGATIVE 07/31/2017 [facility] Urine Cocaine Screen NEGATIVE NEGATIVE 07/31/2017 [facility] ELECTROLYTES AGAP 11.6 10.0 - 20.0 03/18/2017 [...] should be multiplied by the estimated BMI. [facility] ELECTROLYTES Creatinine Lvl 0.20 0.50 - 1.40 03/18/2017 [facility] ELECTROLYTES BUN 8 7 - 22 03/18/2017 [facility] ELECTROLYTES Calcium Lvl 8.7 8.5 - 10.5 03/18/2017 [facility] ELECTROLYTES CO2 24 24 - 32 03/18/2017 [facility] ELECTROLYTES Chloride Lvl 108 95 - 109 03/18/2017 [facility] ELECTROLYTES Sodium Lvl 140 135 - 145 03/18/2017 [facility] ELECTROLYTES Potassium Lvl 3.6 3.5 - 5.1 03/18/2017 [facility] ELECTROLYTES Glucose Lvl 68 70 - 99 03/18/2017 [facility] Lymphocytes # 2.3 1.0 - 5.5 03/18/2017 [facility] Monocytes # 0.6 0.0 - 0.8 03/18/2017 [facility] HEMATOLOGY Eosinophils 5.4 0.0 - 4.0 03/18/2017 [facility] Segs-Bands # 2.4 1.5 - 8.1 03/18/2017 [facility] HEMATOLOGY Basophils 0.3 0.0 - 1.0 03/18/2017 [facility] Eosinophils # 0.3 0.0 - 0.5 03/18/2017 [facility] Lymphocytes 40.8 20.0 - 40.0 03/18/2017 [facility] Monocytes 10.3 2.0 - 12.0 03/18/2017 [facility] Segs 43.2 45.0 - 75.0 03/18/2017 [facility] MPV 10.3 7.4 - 10.4 03/18/2017 [facility] RDW 18.2 11.5 - 14.5 03/18/2017 [facility] MCHC 33.7 32.0 - 36.0 03/18/2017 [facility] Platelet 223 133 - 450 03/18/2017 [facility] HEMATOLOGY Hgb 11.0 12.0 - 16.0 03/18/2017 [facility] HEMATOLOGY MCV 80.5 80.0 - 98.0 03/18/2017 [facility] HEMATOLOGY Hct 32.7 36.0 - 48.0 03/18/2017 [facility] HEMATOLOGY RBC 4.06 4.20 - 5.40 03/18/2017 [facility] HEMATOLOGY WBC 5.6 3.7 - 10.4 03/18/2017 [facility] HEMATOLOGY MCH 27.1 27.0 - 31.0 03/18/2017 [facility] CHEM PANEL eGFR 152 03/17/2017 Result Comment: [...] should be multiplied by the estimated BMI. [facility] CHEM PANEL Sodium Lvl 138 135 - 145 03/17/2017 [facility] CHEM PANEL Creatinine Lvl 0.24 0.50 - 1.40 03/17/2017 [facility] CHEM PANEL Potassium Lvl 3.9 3.5 - 5.1 03/17/2017 [facility] CHEM PANEL CO2 23 24 - 32 03/17/2017 [facility] CHEM PANEL Chloride Lvl 107 95 - 109 03/17/2017 [facility] CHEM PANEL AGAP 11.9 10.0 - 20.0 03/17/2017 [facility] CHEM PANEL Calcium Lvl 8.6 8.5 - 10.5 03/17/2017 [facility] CHEM PANEL Glucose Lvl 201 70 - 99 03/17/2017 [facility] CHEM PANEL BUN 10 7 - 22 03/17/2017 [facility] HEMATOLOGY Basophils 0.4 0.0 - 1.0 03/17/2017 [...] HEMATOLOGY MCH 27.1 27.0 - 31.0 03/17/2017 [facility] HEMATOLOGY MCV 81.7 80.0 - 98.0 03/17/2017 [facility] HEMATOLOGY RBC 4.01 4.20 - 5.40 03/17/2017 [facility]AT[facility] Hct 32.8 36.0 - 48.0 03/17/2017 [facility] HEMATOLOGY Hgb 10.9 12.0 - 16.0 03/17/2017 [facility] HEMATOLOGY MPV 9.9 7.4 - 10.4 03/17/2017 [facility] HEMATOLOGY Platelet 208 133 - 450 03/17/2017 [facility] HEMATOLOGY MCHC 33.2 32.0 - 36.0 03/17/2017 [facility] HEMATOLOGY RDW 18.1 11.5 - 14.5 03/17/2017 [facility] HEMATOLOGY RDW 17.8 11.5 - 14.5 03/16/2017 [facility] HEMATOLOGY Platelet 211 133 - 450 03/16/2017 [facility] HEMATOLOGY MPV 10.1 7.4 - 10.4 03/16/2017 [facility] HEMATOLOGY Hgb 11.3 12.0 - 16.0 03/16/2017 [facility] HEMATOLOGY Hct 34.3 36.0 - 48.0 03/16/2017 [facility] HEMATOLOGY MCV 81.4 80.0 - 98.0 03/16/2017 [facility] HEMATOLOGY MCH 26.9 27.0 - 31.0 03/16/2017 [facility] HEMATOLOGY WBC 4.7 3.7 - 10.4 03/16/2017 [facility] HEMATOLOGY MCHC 33.0 32.0 - 36.0 03/16/2017 [facility] HEMATOLOGY RBC 4.21 4.20 - 5.40 03/16/2017 [facility] HEMATOLOGY Lymphocytes # 2.0 1.0 - 5.5 03/16/2017 [facility] HEMATOLOGY Monocytes # 0.3 0.0 - 0.8 03/16/2017 [facility] HEMATOLOGY Eosinophils 4.5 0.0 - 4.0 03/16/2017 [facility] HEMATOLOGY Monocytes 6.9 2.0 - 12.0 03/16/2017 [facility] HEMATOLOGY Basophils 0.6 0.0 - 1.0 03/16/2017 [facility] Segs-Bands # 2.1 1.5 - 8.1 03/16/2017 [facility] HEMATOLOGY Segs 44.8 45.0 - 75.0 03/16/2017 [facility] Lymphocytes 43.2 20.0 - 40.0 03/16/2017 [facility] Eosinophils # 0.2 0.0 - 0.5 03/16/2017 [facility] PARATHYROID PROFILE Ca Ion WB 1.14 1.05 - 1.25 03/16/2017 [facility] PARATHYROID PROFILE Ca Norm WB 1.10 1.05 - 1.25 03/16/2017 [facility] CHEM PANEL eGFR 178 03/16/2017 Result Comment: [...] should be multiplied by the estimated BMI. [facility] CHEM PANEL Potassium Lvl 2.9 3.5 - 5.1 03/16/2017 Result Comment: Critical Result(s) called to Jm Curtis at 03/16/2017 09:43 byHA. Read back OK. [facility] CHEM PANEL Sodium Lvl 141 135 - 145 03/16/2017 [facility] CHEM PANEL Glucose Lvl 165 70 - 99 03/16/2017 [facility] CHEM PANEL Creatinine Lvl <0.15 0.50 - 1.40 03/16/2017 [facility] CHEM PANEL BUN 8 7 - 22 03/16/2017 [facility] CHEM PANEL Chloride Lvl 111 95 - 109 03/16/2017 [facility] CHEM PANEL Calcium Lvl 6.8 8.5 - 10.5 03/16/2017 [facility] CHEM PANEL AGAP 9.9 10.0 - 20.0 03/16/2017 [facility] CHEM PANEL CO2 23 24 - 32 03/16/2017 [facility] CHEM PANEL Lipase Lvl 361 73 - 393 03/14/2017 [facility] CHEM PANEL Magnesium Lvl 1.8 1.8 - 2.4 03/12/2017 [facility] CHEM PANEL Phosphorus 3.3 2.5 - 4.5 03/12/2017 [facility] CHEM PANEL Magnesium Lvl 2.2 1.8 - 2.4 03/11/2017 [facility] CHEM PANEL Phosphorus 2.9 2.5 - 4.5 03/11/2017 [facility] CHEM PANEL Magnesium Lvl 1.3 1.8 - 2.4 03/11/2017 [facility] CHEM PANEL Phosphorus 3.3 2.5 - 4.5 03/10/2017 [facility] SPECIAL CHEMISTRY Hgb A1C 11.5 <=5.6 % 03/10/2017 [facility] CHEM PANEL Ketone Quantitative 0.86 <=0.27 mmol/L 03/10/2017 [facility] CHEM PANEL Ketone Quantitative 0.30 <=0.27 mmol/L 03/10/2017 [facility] CHEM PANEL Ketone Quantitative 2.16 <=0.27 mmol/L 03/10/2017 [facility] SPECIAL CHEMISTRY Hgb A1C 11.6 <=5.6 % 03/10/2017 [facility] BACTERIAL - SEROLOGY MRSA by PCR Negative (03/10/17 1:00 AM) 03/10/2017 [facility] CHEM PANEL Lactic Acid Lvl 1.5 0.5 - 2.2 03/10/2017 [facility] DRUG SCREEN UDS Note See Note (03/09/17 10:23 PM) 03/10/2017 [facility] DRUG SCREEN U Phencyc Scr Negative *NA* [...] Negative *NA* (03/09/17 10:23 PM) Negative 03/10/2017 [facility] ENDOCRINOLOGY S Preg Negative *NA* (03/09/17 10:23 PM) Negative 03/10/2017 [facility] URINE AND STOOL UA Urobilinogen <=1.0 mg/dL [...] Negative *NA* (03/09/17 10:23 PM) Negative 03/10/2017 [facility] URINE AND STOOL UA Vista Yeast Many /HPF None Seen /HPF 03/10/2017 [facility] URINE AND STOOL UA Hyal Cast 3 0 - 2 03/10/2017 [facility] URINE AND STOOL UA WBC >182 0 - 5 03/10/2017 [facility] URINE AND STOOL UA Mucus Few /LPF None Seen /LPF 03/10/2017 [facility] URINE AND STOOL UA Bacteria Occasional /HPF None Seen /HPF 03/10/2017 [facility] CARDIAC ENZYMES CK MB 3.1 0.5 - 3.6 03/10/2017 [facility] CARDIAC ENZYMES Total CK 53 12 - 191 03/10/2017 [facility] CARDIAC ENZYMES Troponin-I <0.02 0.00 - 0.40 03/10/2017 [facility] CARDIAC ENZYMES CK MB Index 5.8 0.0 - 2.5 03/10/2017 [facility] CHEM PANEL Lipase Lvl 320 73 - 393 03/10/2017 [facility] CHEM PANEL Albumin Lvl 3.7 3.5 - 5.0 03/10/2017 [facility] CHEM PANEL Total Protein 9.6 6.4 - 8.4 03/10/2017 [facility] CHEM PANEL B/C Ratio 44 6 - 25 03/10/2017 [facility] CHEM PANEL Globulin 5.9 2.7 - 4.2 03/10/2017 [facility] CHEM PANEL AST 45 0 - 37 03/10/2017 [facility] CHEM PANEL ALT 34 0 - 65 03/10/2017 [facility] CHEM PANEL Bili Total 0.8 0.2 - 1.3 03/10/2017 [facility] CHEM PANEL Alk Phos 184 39 - 136 03/10/2017 [facility] CHEM PANEL A/G Ratio 0.6 0.7 - 1.6 03/10/2017 [facility] CHEM PANEL Lipase Lvl 264 73 - 393 12/29/2016 [facility] CHEM PANEL eGFR 178 12/29/2016 Result Comment: [...] PANEL Globulin 3.7 2.7 - 4.2 12/29/2016 [facility] CHEM PANEL AST 18 0 - 37 12/29/2016 [facility] CHEM PANEL A/G Ratio 0.5 0.7 - 1.6 12/29/2016 [facility] CHEM PANEL Alk Phos 134 39 - 136 12/29/2016 [facility] CHEM PANEL ALT 12 0 - 65 12/29/2016 [facility] CHEM PANEL Bili Total 1.0 0.2 - 1.3 12/29/2016 [facility] CHEM PANEL Total Protein 5.6 6.4 - 8.4 12/29/2016 [facility] CHEM PANEL Albumin Lvl 1.9 3.5 - 5.0 12/29/2016 [facility] CHEM PANEL Sodium Lvl 140 135 - 145 12/29/2016 [facility] CHEM PANEL Creatinine Lvl <0.15 0.50 - 1.40 12/29/2016 [facility] CHEM PANEL BUN 4 7 - 22 12/29/2016 [facility] CHEM PANEL Potassium Lvl 3.2 3.5 - 5.1 12/29/2016 [facility] CHEM PANEL Chloride Lvl 103 95 - 109 12/29/2016 [facility] CHEM PANEL CO2 23 24 - 32 12/29/2016 [facility] CHEM PANEL Glucose Lvl 151 70 - 99 12/29/2016 [facility] CHEM PANEL AGAP 17.2 10.0 - 20.0 12/29/2016 [facility] CHEM PANEL B/C Ratio See Note 4 (12/29/16 4:07 AM) 6 - 25 12/29/2016 Result Comment: can not calculate b/c ratio due to creatinine <0.15 [facility] CHEM PANEL Calcium Lvl 7.8 8.5 - 10.5 12/29/2016 [facility] CHEM PANEL Amylase Lvl 33 25 - 115 12/29/2016 [facility] HEMATOLOGY Eosinophils # 0.1 0.0 - 0.5 12/29/2016 [facility] HEMATOLOGY Basophils 0.2 0.0 - 1.0 12/29/2016 [facility] Lymphocytes # 1.4 1.0 - 5.5 12/29/2016 [facility] Segs-Bands # 3.5 1.5 - 8.1 12/29/2016 [facility] Monocytes # 0.7 0.0 - 0.8 12/29/2016 [facility] Eosinophils 1.7 0.0 - 4.0 12/29/2016 [facility] Lymphocytes 24.3 20.0 - 40.0 12/29/2016 [facility] Segs 62.2 45.0 - 75.0 12/29/2016 [facility] Monocytes 11.6 2.0 - 12.0 12/29/2016 [facility] WBC 5.7 3.7 - 10.4 12/29/2016 [facility] Hgb 8.9 12.0 - 16.0 12/29/2016 [facility] Hct 26.9 36.0 - 48.0 12/29/2016 [facility] RBC 3.25 4.20 - 5.40 12/29/2016 [facility] MCV 82.8 80.0 - 98.0 12/29/2016 [facility] Platelet 138 133 - 450 12/29/2016 [facility] MPV 10.9 7.4 - 10.4 12/29/2016 [facility] MCH 27.3 27.0 - 31.0 12/29/2016 [facility] RDW 14.2 11.5 - 14.5 12/29/2016 [facility] MCHC 33.0 32.0 - 36.0 12/29/2016 [facility] SPECIAL CHEMISTRY Hgb A1C 9.6 <=5.6 % 12/29/2016 [facility] CHEM PANEL Phosphorus 3.0 2.5 - 4.5 12/28/2016 [facility] CHEM PANEL Magnesium Lvl 1.2 1.8 - 2.4 12/28/2016 [facility] CHEM PANEL eGFR 159 12/28/2016 Result Comment: [...] should be multiplied by the estimated BMI. [facility] CHEM PANEL Creatinine Lvl 0.21 0.50 - 1.40 12/28/2016 [facility] CHEM PANEL BUN 4 7 - 22 12/28/2016 [facility] CHEM PANEL Glucose Lvl 151 70 - 99 12/28/2016 [facility] CHEM PANEL CO2 23 24 - 32 12/28/2016 [facility] CHEM PANEL Chloride Lvl 102 95 - 109 12/28/2016 [facility] CHEM PANEL Potassium Lvl 3.7 3.5 - 5.1 12/28/2016 [facility] CHEM PANEL Sodium Lvl 135 135 - 145 12/28/2016 [facility] CHEM PANEL Calcium Lvl 8.3 8.5 - 10.5 12/28/2016 [facility] CHEM PANEL AGAP 13.7 10.0 - 20.0 12/28/2016 [facility] Platelet 158 133 - 450 12/28/2016 [facility] MPV 10.8 7.4 - 10.4 12/28/2016 [facility] RBC 3.88 4.20 - 5.40 12/28/2016 [facility] WBC 7.4 3.7 - 10.4 12/28/2016 [facility] Hgb 10.6 12.0 - 16.0 12/28/2016 [facility] MCH 27.4 27.0 - 31.0 12/28/2016 [facility] MCV 82.3 80.0 - 98.0 12/28/2016 [facility] Hct 31.9 36.0 - 48.0 12/28/2016 [facility] RDW 14.2 11.5 - 14.5 12/28/2016 [facility] MCHC 33.2 32.0 - 36.0 12/28/2016 [facility] HEMATOLOGY Basophils 0.1 0.0 - 1.0 12/28/2016 [facility] Monocytes # 0.8 0.0 - 0.8 12/28/2016 [facility] Eosinophils # 0.1 0.0 - 0.5 12/28/2016 [facility] HEMATOLOGY Segs-Bands # 5.1 1.5 - 8.1 12/28/2016 [facility] HEMATOLOGY Lymphocytes # 1.3 1.0 - 5.5 12/28/2016 [facility] HEMATOLOGY Eosinophils 1.0 0.0 - 4.0 12/28/2016 [facility] HEMATOLOGY Monocytes 11.3 2.0 - 12.0 12/28/2016 [facility] HEMATOLOGY Segs 69.6 45.0 - 75.0 12/28/2016 [facility] HEMATOLOGY Lymphocytes 18.0 20.0 - 40.0 12/28/2016 [facility] CHEM PANEL Magnesium Lvl 2.0 1.8 - 2.4 12/27/2016 [facility] ELECTROLYTES Potassium Lvl 4.4 3.5 - 5.1 12/27/2016 [facility] CARDIAC ENZYMES Troponin-I <0.02 0.00 - 0.40 12/27/2016 [facility] CARDIAC ENZYMES Total CK 20 12 - 191 12/27/2016 [facility] CARDIAC ENZYMES Troponin-I <0.02 0.00 - 0.40 12/27/2016 [facility] CARDIAC ENZYMES Total CK 21 12 - 191 12/27/2016 [facility] CHEM PANEL Phosphorus 3.2 2.5 - 4.5 12/27/2016 [facility] CHEM PANEL Magnesium Lvl 1.4 1.8 - 2.4 12/27/2016 [facility] CHEM PANEL eGFR 178 12/27/2016 Result Comment: [...] should be multiplied by the estimated BMI. [facility] CHEM PANEL BUN 6 7 - 22 12/27/2016 [facility] CHEM PANEL Glucose Lvl 130 70 - [...] PANEL Ketone Quantitative 1.04 <=0.27 mmol/L 12/27/2016 [facility] HEMATOLOGY WBC 5.8 3.7 - 10.4 12/27/2016 [facility] HEMATOLOGY RBC 3.65 4.20 - 5.40 12/27/2016 [facility] HEMATOLOGY MCH 27.4 27.0 - 31.0 12/27/2016 [facility] HEMATOLOGY MCHC 34.1 32.0 - 36.0 12/27/2016 [facility] HEMATOLOGY Hct 29.4 36.0 - 48.0 12/27/2016 [facility] HEMATOLOGY MCV 80.5 80.0 - 98.0 12/27/2016 [facility] HEMATOLOGY Hgb 10.0 12.0 - 16.0 12/27/2016 [facility] HEMATOLOGY MPV 11.3 7.4 - 10.4 12/27/2016 [facility] HEMATOLOGY RDW 14.2 11.5 - 14.5 12/27/2016 [facility] HEMATOLOGY Platelet 166 133 - 450 12/27/2016 [facility] HEMATOLOGY INR 1.15 0.85 - 1.17 12/27/2016 [facility] HEMATOLOGY PT 14.9 12.0 - 14.7 12/27/2016 [facility] HEMATOLOGY PTT 28.7 22.9 - 35.8 12/27/2016 [facility] HEMATOLOGY Eosinophils # 0.1 0.0 - 0.5 12/27/2016 [facility] HEMATOLOGY Monocytes # 0.6 0.0 - 0.8 12/27/2016 [facility] HEMATOLOGY Eosinophils 1.7 0.0 - 4.0 12/27/2016 [facility] HEMATOLOGY Lymphocytes 21.2 20.0 - 40.0 12/27/2016 [facility] HEMATOLOGY Monocytes 10.6 2.0 - 12.0 12/27/2016 [facility] HEMATOLOGY Segs 66.4 45.0 - 75.0 12/27/2016 [facility] HEMATOLOGY Lymphocytes # 1.2 1.0 - 5.5 12/27/2016 [facility] HEMATOLOGY Segs-Bands # 3.9 1.5 - 8.1 12/27/2016 [facility] HEMATOLOGY Basophils 0.1 0.0 - 1.0 12/27/2016 [facility] BACTERIAL - SEROLOGY MRSA by PCR Negative (12/27/16 3:17 AM) 12/27/2016 [facility] URINE AND STOOL UA Hyph Yeast Occasional *ABN* (12/27/16 3:17 AM) None Seen 12/27/2016 [facility] URINE AND STOOL UA Vista Yeast Moderate /HPF None Seen /HPF 12/27/2016 [...] STOOL UA Spec Grav 1.010 <=1.030 12/27/2016 [facility] URINE AND STOOL UA Glucose Negative mg/dL Negative mg/dL 12/27/2016 [facility] URINE AND STOOL UA Protein 30 mg/dL Negative mg/dL 12/27/2016 [facility] URINE AND STOOL UA Color Yellow *NA* (12/27/16 3:17 AM) Yellow 12/27/2016 [facility] URINE AND STOOL UA Urobilinogen <=1.0 mg/dL 0.1 - 1.0 12/27/2016 [facility] URINE AND STOOL UA Ketones Negative mg/dL Negative mg/dL 12/27/2016 [facility] URINE AND STOOL UA Blood Large *ABN* (12/27/16 3:17 AM) Negative 12/27/2016 [facility] URINE AND STOOL UA Bili Negative *NA* (12/27/16 3:17 AM) Negative 12/27/2016 [facility] URINE AND STOOL UA Leuk Est Large *ABN* (12/27/16 3:17 AM) Negative 12/27/2016 [facility] URINE AND STOOL UA Nitrite Negative (12/27/16 3:17 AM) Negative 12/27/2016 [facility] CHEM PANEL Bili Indirect 0.7 0.0 - 1.0 09/21/2016 [facility] CHEM PANEL Globulin 5.2 2.7 - 4.2 09/21/2016 [facility] CHEM PANEL A/G Ratio 0.4 0.7 - 1.6 09/21/2016 [facility] CHEM PANEL Bili Direct 0.2 0.0 - 0.3 09/21/2016 [facility] CHEM PANEL Albumin Lvl 2.2 3.5 - 5.0 09/21/2016 [facility] CHEM PANEL ALT 63 0 - 65 09/21/2016 [facility] CHEM PANEL Bili Total 0.9 0.2 - 1.3 09/21/2016 [facility] CHEM PANEL AST 39 0 - 37 09/21/2016 [facility] CHEM PANEL Alk Phos 239 39 - 136 09/21/2016 [facility] CHEM PANEL Total Protein 7.4 6.4 - 8.4 09/21/2016 [facility] CHEM PANEL Magnesium Lvl 1.5 1.8 - 2.4 09/21/2016 [facility] CHEM PANEL Glucose Lvl 91 70 - 99 09/21/2016 [facility] CHEM PANEL BUN 5 7 - 22 09/21/2016 [facility] CHEM PANEL Potassium Lvl 3.6 3.5 - 5.1 09/21/2016 [facility] CHEM PANEL Sodium Lvl 133 135 - 145 09/21/2016 [facility] CHEM PANEL Creatinine Lvl 0.18 0.50 - 1.40 09/21/2016 [facility] CHEM PANEL Chloride Lvl 98 95 - 109 09/21/2016 [facility] CHEM PANEL CO2 26 24 - 32 09/21/2016 [facility] CHEM PANEL Calcium Lvl 8.3 8.5 - 10.5 09/21/2016 [facility] CHEM PANEL AGAP 12.6 10.0 - 20.0 09/21/2016 [facility] CHEM PANEL eGFR 169 09/21/2016 Result Comment: [...] should be multiplied by the estimated BMI. [facility] HEMATOLOGY Platelet 199 133 - 450 09/21/2016 [facility] HEMATOLOGY RDW 15.1 11.5 - 14.5 09/21/2016 [facility] HEMATOLOGY MPV 10.5 7.4 - 10.4 09/21/2016 [facility] HEMATOLOGY Hgb 10.9 12.0 - 16.0 09/21/2016 [facility] HEMATOLOGY MCV 86.0 80.0 - 98.0 09/21/2016 [facility] HEMATOLOGY Hct 32.5 36.0 - 48.0 09/21/2016 [facility] MCHC 33.6 32.0 - 36.0 09/21/2016 [facility] MCH 28.9 27.0 - 31.0 09/21/2016 [facility] RBC 3.78 4.20 - 5.40 09/21/2016 [facility] WBC 6.0 3.7 - 10.4 09/21/2016 [facility] HEMATOLOGY Eosinophils # 0.2 0.0 - 0.5 09/21/2016 [facility] HEMATOLOGY Lymphocytes # 1.3 1.0 - 5.5 09/21/2016 [facility] HEMATOLOGY Segs-Bands # 3.7 1.5 - 8.1 09/21/2016 [facility] Monocytes # 0.8 0.0 - 0.8 09/21/2016 [facility] HEMATOLOGY Monocytes 12.7 2.0 - 12.0 09/21/2016 [facility] HEMATOLOGY Eosinophils 3.4 0.0 - 4.0 09/21/2016 [facility] HEMATOLOGY Basophils 0.6 0.0 - 1.0 09/21/2016 [facility] HEMATOLOGY Segs 61.5 45.0 - 75.0 09/21/2016 [facility] Lymphocytes 21.8 20.0 - 40.0 09/21/2016 [facility] CHEM PANEL Lipase Lvl 267 73 - 393 09/20/2016 [facility] CHEM PANEL Amylase Lvl 59 25 - 115 09/20/2016 [facility] CHEM PANEL eGFR 158 09/20/2016 Result Comment: [...] should be multiplied by the estimated BMI. [facility] CHEM PANEL Bili Total 0.7 0.2 - 1.3 09/20/2016 [facility] CHEM PANEL AGAP 14.7 10.0 - 20.0 09/20/2016 [facility] CHEM PANEL Calcium Lvl 8.0 8.5 - 10.5 09/20/2016 [facility] CHEM PANEL B/C Ratio 18 6 - [...] Sodium Lvl 130 135 - 145 09/20/2016 [facility] CHEM PANEL BUN 4 7 - 22 09/20/2016 [facility] HEMATOLOGY Segs-Bands # 5.9 1.5 - 8.1 09/20/2016 [facility] HEMATOLOGY Basophils 0.4 0.0 - 1.0 09/20/2016 [facility] HEMATOLOGY Eosinophils 2.5 0.0 - 4.0 09/20/2016 [facility] HEMATOLOGY Segs 71.1 45.0 - 75.0 09/20/2016 [facility] HEMATOLOGY Monocytes 11.5 2.0 - 12.0 09/20/2016 [facility] HEMATOLOGY Lymphocytes 14.5 20.0 - 40.0 09/20/2016 [facility] HEMATOLOGY Eosinophils # 0.2 0.0 - 0.5 09/20/2016 [facility] HEMATOLOGY Lymphocytes # 1.2 1.0 - 5.5 09/20/2016 [facility] HEMATOLOGY Monocytes # 1.0 0.0 - 0.8 09/20/2016 [facility] HEMATOLOGY RDW 15.3 11.5 - 14.5 09/20/2016 [facility] HEMATOLOGY MPV 10.2 7.4 - 10.4 09/20/2016 [facility] HEMATOLOGY Platelet 222 133 - 450 09/20/2016 [facility] HEMATOLOGY Hct 32.4 36.0 - 48.0 09/20/2016 [facility] HEMATOLOGY MCHC 33.7 32.0 - 36.0 09/20/2016 [facility] HEMATOLOGY MCV 85.1 80.0 - 98.0 09/20/2016 [facility] MCH 28.7 27.0 - 31.0 09/20/2016 [facility] HEMATOLOGY Hgb 10.9 12.0 - 16.0 09/20/2016 [facility] HEMATOLOGY RBC 3.81 4.20 - 5.40 09/20/2016 [facility] HEMATOLOGY WBC 8.3 3.7 - 10.4 09/20/2016 [facility] CHEM PANEL Lipase Lvl 331 73 - 393 09/18/2016 [facility] CHEM PANEL eGFR 179 09/18/2016 Result Comment: [...] should be multiplied by the estimated BMI. [facility] CHEM PANEL B/C Ratio See Note (09/18/16 5:53 AM) 6 - 25 09/18/2016 [facility] CHEM PANEL Albumin Lvl 2.3 3.5 - 5.0 09/18/2016 [facility] CHEM PANEL Total Protein 6.8 6.4 - 8.4 09/18/2016 [facility] CHEM PANEL Globulin 4.5 2.7 - 4.2 09/18/2016 [facility] CHEM PANEL Calcium Lvl 8.1 8.5 - 10.5 09/18/2016 [facility] CHEM PANEL Bili Total 0.3 0.2 - 1.3 09/18/2016 [facility] CHEM PANEL Alk Phos 213 39 - [...] PANEL CO2 27 24 - 32 09/18/2016 [facility] CHEM PANEL Glucose Lvl 63 70 - 99 09/18/2016 [facility] CHEM PANEL Chloride Lvl 101 95 - 109 09/18/2016 [facility] CHEM PANEL Creatinine Lvl <0.15 0.50 - 1.40 09/18/2016 [facility] CHEM PANEL BUN 8 7 - 22 09/18/2016 [facility] HEMATOLOGY Basophils 0.5 0.0 - 1.0 09/18/2016 [facility] HEMATOLOGY Lymphocytes # 0.9 1.0 - 5.5 09/18/2016 [facility] HEMATOLOGY Eosinophils # 0.3 0.0 - 0.5 09/18/2016 [facility] HEMATOLOGY Segs-Bands # 3.1 1.5 - 8.1 09/18/2016 [facility] HEMATOLOGY Monocytes # 0.5 0.0 - 0.8 09/18/2016 [facility] HEMATOLOGY Monocytes 9.7 2.0 - 12.0 09/18/2016 [facility] HEMATOLOGY Eosinophils 7.0 0.0 - 4.0 09/18/2016 [facility] HEMATOLOGY Segs 64.1 45.0 - 75.0 09/18/2016 [facility] HEMATOLOGY Lymphocytes 18.7 20.0 - 40.0 09/18/2016 [facility] HEMATOLOGY MCH 29.5 27.0 - 31.0 09/18/2016 [facility] HEMATOLOGY Platelet 224 133 - 450 09/18/2016 [facility] HEMATOLOGY MCHC 34.0 32.0 - 36.0 09/18/2016 [facility] HEMATOLOGY MPV 9.9 7.4 - 10.4 09/18/2016 [facility] HEMATOLOGY RDW 15.0 11.5 - 14.5 09/18/2016 [facility] HEMATOLOGY Hgb 10.7 12.0 - 16.0 09/18/2016 [facility] HEMATOLOGY Hct 31.5 36.0 - 48.0 09/18/2016 [facility] HEMATOLOGY MCV 86.9 80.0 - 98.0 09/18/2016 [facility] HEMATOLOGY RBC 3.63 4.20 - 5.40 09/18/2016 [facility] HEMATOLOGY WBC 4.9 3.7 - 10.4 09/18/2016 [facility] CHEM PANEL Lipase Lvl 307 73 - 393 09/17/2016 [facility] CHEM PANEL B/C Ratio 32 6 - 25 09/17/2016 [facility] CHEM PANEL Amylase Lvl 49 25 - 115 09/17/2016 [facility] CHEM PANEL Amylase Lvl 42 25 - 115 09/16/2016 [facility] CHEM PANEL Magnesium Lvl 1.4 1.8 - 2.4 09/15/2016 [facility] CHEM PANEL Magnesium Lvl 1.5 1.8 - 2.4 09/13/2016 [facility] ENDOCRINOLOGY S Preg Negative *NA* (09/13/16 3:00 AM) Negative 09/13/2016 [facility] HEMATOLOGY PTT 24.8 22.9 - 35.8 09/12/2016 [facility] HEMATOLOGY PT 14.0 12.0 - 14.7 09/12/2016 [facility] HEMATOLOGY INR 1.06 0.85 - 1.17 09/12/2016 [facility] URINE AND STOOL UA Bili Negative *NA* (09/11/16 2:33 PM) Negative 09/11/2016 [facility] URINE AND STOOL UA Spec Grav 1.014 <=1.030 09/11/2016 [facility] URINE AND STOOL UA Protein Negative mg/dL Negative mg/dL 09/11/2016 [facility] URINE AND STOOL UA pH 8.0 5.0 [...] Est Negative (09/11/16 2:33 PM) Negative 09/11/2016 [facility] URINE AND STOOL UA RBC 1 0 - 2 09/11/2016 [facility] URINE AND STOOL UA Amorph Ivory Occasional /HPF None Seen /HPF 09/11/2016 [facility] URINE AND STOOL UA Urobilinogen <=1.0 mg/dL 0.1 - 1.0 09/11/2016 [facility] URINE AND STOOL UA Turbidity Slight *ABN* (09/11/16 2:33 PM) Clear 09/11/2016 [facility] URINE AND STOOL UA Color Yellow *NA* (09/11/16 2:33 PM) Yellow 09/11/2016 [facility] CHEM PANEL Phosphorus 3.3 2.5 - 4.5 09/10/2016 [facility] HEMATOLOGY Basophils # 0.1 0.0 - 0.2 09/10/2016 [facility] CHEM PANEL BUN 9 7 - 22 09/07/2016 [facility] CHEM PANEL Glucose Lvl 100 70 - 99 09/07/2016 [facility] CHEM PANEL eGFR 161 09/07/2016 Result Comment: [...] should be multiplied by the estimated BMI. [facility] CHEM PANEL AGAP 9.8 10.0 - 20.0 09/07/2016 [facility] CHEM PANEL Calcium Lvl 8.6 8.5 - 10.5 09/07/2016 [facility] CHEM PANEL CO2 28 24 - 32 09/07/2016 [facility] CHEM PANEL Chloride Lvl 103 95 - 109 09/07/2016 [facility] CHEM PANEL Sodium Lvl 137 135 - 145 09/07/2016 [facility] CHEM PANEL Creatinine Lvl 0.21 0.50 - 1.40 09/07/2016 [facility] CHEM PANEL Potassium Lvl 3.8 3.5 - 5.1 09/07/2016 [facility] CHEM PANEL Magnesium Lvl 1.9 1.8 - 2.4 09/07/2016 [facility] CHEM PANEL Magnesium Lvl 1.7 1.8 - 2.4 09/06/2016 [facility] CHEM PANEL Lipase Lvl 246 73 - 393 09/06/2016 [facility] ELECTROLYTES AGAP 14.8 10.0 - 20.0 09/06/2016 [facility] ELECTROLYTES eGFR 169 09/06/2016 Result Comment: The [...] should be multiplied by the estimated BMI. [facility] ELECTROLYTES Calcium Lvl 9.6 8.5 - 10.5 09/06/2016 [facility] ELECTROLYTES Glucose Lvl 84 70 - 99 09/06/2016 [facility] ELECTROLYTES BUN 11 7 - 22 09/06/2016 [facility] ELECTROLYTES Sodium Lvl 138 135 - 145 09/06/2016 [facility] ELECTROLYTES Creatinine Lvl 0.18 0.50 - 1.40 09/06/2016 [facility] ELECTROLYTES Potassium Lvl 3.8 3.5 - 5.1 09/06/2016 [facility] ELECTROLYTES Chloride Lvl 100 95 - 109 09/06/2016 [facility] ELECTROLYTES CO2 27 24 - 32 09/06/2016 [facility] HEMATOLOGY WBC 4.7 3.7 - 10.4 09/06/2016 [facility] HEMATOLOGY RBC 3.60 4.20 - 5.40 09/06/2016 [facility] HEMATOLOGY MCHC 33.8 32.0 - 36.0 09/06/2016 [facility] HEMATOLOGY MCH 29.7 27.0 - 31.0 09/06/2016 [facility] HEMATOLOGY MCV 87.9 80.0 - 98.0 09/06/2016 [facility] HEMATOLOGY Hct 31.7 36.0 - 48.0 09/06/2016 [facility] HEMATOLOGY Hgb 10.7 12.0 - 16.0 09/06/2016 [facility] HEMATOLOGY MPV 11.4 7.4 - 10.4 09/06/2016 [facility] HEMATOLOGY Platelet 262 133 - 450 09/06/2016 [facility] HEMATOLOGY RDW 16.4 11.5 - 14.5 09/06/2016 [facility] HEMATOLOGY Eosinophils # 0.3 0.0 - 0.5 09/06/2016 [facility] HEMATOLOGY Monocytes # 0.4 0.0 - 0.8 09/06/2016 [facility] HEMATOLOGY Eosinophils 7.4 0.0 - 4.0 09/06/2016 [facility] HEMATOLOGY Monocytes 9.2 2.0 - 12.0 09/06/2016 [facility] HEMATOLOGY Basophils 0.9 0.0 - 1.0 09/06/2016 [facility] HEMATOLOGY Lymphocytes 31.3 20.0 - 40.0 09/06/2016 [facility] HEMATOLOGY Segs 51.2 45.0 - 75.0 09/06/2016 [facility] HEMATOLOGY Lymphocytes # 1.5 1.0 - 5.5 09/06/2016 [facility] HEMATOLOGY Segs-Bands # 2.4 1.5 - 8.1 09/06/2016 [facility] CHEM PANEL Phosphorus 3.3 2.5 - 4.5 09/05/2016 [facility] CHEM PANEL Magnesium Lvl 1.8 1.8 - 2.4 09/05/2016 [facility] CHEM PANEL Creatinine Lvl 0.19 0.50 - 1.40 09/05/2016 [facility] CHEM PANEL BUN 10 7 - 22 09/05/2016 [facility] CHEM PANEL Glucose Lvl 101 70 - 99 09/05/2016 [facility] CHEM PANEL AGAP 12.0 10.0 - 20.0 09/05/2016 [facility] CHEM PANEL Calcium Lvl 9.2 8.5 - 10.5 09/05/2016 [facility] CHEM PANEL eGFR 166 09/05/2016 Result Comment: [...] should be multiplied by the estimated BMI. [facility] CHEM PANEL Potassium Lvl 4.0 3.5 - 5.1 09/05/2016 [facility] CHEM PANEL Sodium Lvl 136 135 - 145 09/05/2016 [facility] CHEM PANEL CO2 28 24 - 32 09/05/2016 [facility] CHEM PANEL Chloride Lvl 100 95 - 109 09/05/2016 [facility] CHEM PANEL Phosphorus 3.0 2.5 - 4.5 09/04/2016 [facility] CHEM PANEL Phosphorus 2.4 2.5 - 4.5 09/02/2016 [facility] HEMATOLOGY RBC 3.13 4.20 - 5.40 09/02/2016 [facility] HEMATOLOGY WBC 4.2 3.7 - 10.4 09/02/2016 [facility] HEMATOLOGY Hct 28.0 36.0 - 48.0 09/02/2016 [facility] HEMATOLOGY Hgb 9.3 12.0 - 16.0 09/02/2016 [facility] HEMATOLOGY MCH 29.9 27.0 - 31.0 09/02/2016 [facility] HEMATOLOGY Platelet 163 133 - 450 09/02/2016 [facility] HEMATOLOGY RDW 16.6 11.5 - 14.5 09/02/2016 [facility] HEMATOLOGY MCHC 33.4 32.0 - 36.0 09/02/2016 [facility] HEMATOLOGY MPV 12.0 7.4 - 10.4 09/02/2016 [facility] HEMATOLOGY MCV 89.5 80.0 - 98.0 09/02/2016 [facility] HEMATOLOGY Monocytes # 0.5 0.0 - 0.8 09/02/2016 [facility] HEMATOLOGY Eosinophils # 0.2 0.0 - 0.5 09/02/2016 [facility] HEMATOLOGY Lymphocytes # 1.0 1.0 - 5.5 09/02/2016 [facility] HEMATOLOGY Segs 58.4 45.0 - 75.0 09/02/2016 [facility] HEMATOLOGY Lymphocytes 25.1 20.0 - 40.0 09/02/2016 [facility] HEMATOLOGY Segs-Bands # 2.4 1.5 - 8.1 09/02/2016 [facility] HEMATOLOGY Basophils 0.9 0.0 - 1.0 09/02/2016 [facility] HEMATOLOGY Eosinophils 4.6 0.0 - 4.0 09/02/2016 [facility] HEMATOLOGY Monocytes 11.0 2.0 - 12.0 09/02/2016 [facility] TOXICOLOGY Vanco Tr TND 0830 09/01/2016 [facility] TOXICOLOGY Vanco Tr 15.4 09/01/2016 [facility] CHEM PANEL Total Protein 7.0 6.4 - 8.4 08/31/2016 [facility] CHEM PANEL ALT 17 0 - 65 08/31/2016 [facility] CHEM PANEL Albumin Lvl 2.1 3.5 - 5.0 08/31/2016 [facility] CHEM PANEL A/G Ratio 0.4 0.7 - 1.6 08/31/2016 [facility] CHEM PANEL Globulin 4.9 2.7 - 4.2 08/31/2016 [facility] CHEM PANEL B/C Ratio 28 6 - 25 08/31/2016 [facility] CHEM PANEL Alk Phos 177 39 - 136 08/31/2016 [facility] CHEM PANEL AST 17 0 - 37 08/31/2016 [facility] CHEM PANEL Bili Total 0.3 0.2 - 1.3 08/31/2016 [facility] HEMATOLOGY Platelet 141 133 - 450 08/31/2016 [facility] HEMATOLOGY RDW 16.4 11.5 - 14.5 08/31/2016 [facility] HEMATOLOGY MPV 11.8 7.4 - 10.4 08/31/2016 [facility] HEMATOLOGY Hct 27.7 36.0 - 48.0 08/31/2016 [facility] HEMATOLOGY Hgb 9.1 12.0 - 16.0 08/31/2016 [facility] HEMATOLOGY MCV 88.8 80.0 - 98.0 08/31/2016 [facility] HEMATOLOGY RBC 3.12 4.20 - 5.40 08/31/2016 [facility] HEMATOLOGY MCH 29.3 27.0 - 31.0 08/31/2016 [facility] HEMATOLOGY MCHC 33.0 32.0 - 36.0 08/31/2016 [facility] HEMATOLOGY WBC 4.7 3.7 - 10.4 08/31/2016 [facility] HEMATOLOGY Monocytes # 0.4 0.0 - 0.8 08/31/2016 [facility] HEMATOLOGY Eosinophils # 0.1 0.0 - 0.5 08/31/2016 [facility] HEMATOLOGY Lymphocytes # 0.9 1.0 - 5.5 08/31/2016 [facility] HEMATOLOGY Segs-Bands # 3.2 1.5 - 8.1 08/31/2016 [facility] HEMATOLOGY Eosinophils 2.9 0.0 - 4.0 08/31/2016 [facility] HEMATOLOGY Monocytes 9.6 2.0 - 12.0 08/31/2016 [facility] HEMATOLOGY Basophils 0.7 0.0 - 1.0 08/31/2016 [facility] HEMATOLOGY Lymphocytes 19.4 20.0 - 40.0 08/31/2016 [facility] HEMATOLOGY Segs 67.4 45.0 - 75.0 08/31/2016 [facility] TOXICOLOGY Vanco Tr TND 1630 08/28/2016 [facility] TOXICOLOGY Vanco Tr 15.4 08/28/2016 [facility] MOLECULAR DIAGNOSTIC C difficile DNA Negative (08/28/16 10:45 AM) Negative 08/28/2016 [facility] URINE CHEM U Chloride 96 08/26/2016 [facility] URINE CHEM U Potassium 13.8 08/26/2016 [facility] URINE CHEM U Sodium 83 08/26/2016 [facility] ELECTROLYTES Potassium WB 3.0 3.5 - 5.1 08/25/2016 Result Comment: CRITICAL RESULT CALLED TO ARPAN DOSS AT 08/25/2016 16:13 BY SXP. READ BACK OK. [facility] TOXICOLOGY Vanco Tr 16.8 08/25/2016 [facility] TOXICOLOGY Vanco Tr TND 0830 08/25/2016 [facility] TUMOR MARKERS CA 125 62.9 0.0 - 35.0 08/25/2016 [facility] URINE CHEM U Preg Negative (08/25/16 12:39 AM) Negative 08/25/2016 [facility] CHEM PANEL Albumin Lvl 2.7 3.5 - 5.0 08/24/2016 [facility] CHEM PANEL Alk Phos 202 39 - 136 08/24/2016 [facility] CHEM PANEL Bili Total 0.5 0.2 - 1.3 08/24/2016 [facility] CHEM PANEL Globulin 5.5 2.7 - 4.2 08/24/2016 [facility] CHEM PANEL A/G Ratio 0.5 0.7 - 1.6 08/24/2016 [facility] CHEM PANEL ALT 14 0 - 65 08/24/2016 [facility] CHEM PANEL AST 20 0 - 37 08/24/2016 [facility] CHEM PANEL Total Protein 8.2 6.4 - 8.4 08/24/2016 [facility] CHEM PANEL B/C Ratio 26 6 - 25 08/24/2016 [facility] HEMATOLOGY INR 1.26 0.85 - 1.17 08/24/2016 [facility] HEMATOLOGY PT 16.1 12.0 - 14.7 08/24/2016 [facility] HEMATOLOGY PTT 32.8 22.9 - 35.8 08/24/2016 [facility] CHEM PANEL eGFR 158 08/23/2016 Result Comment: [...] should be multiplied by the estimated BMI. [facility] CHEM PANEL Calcium Lvl 8.1 8.5 - 10.5 08/23/2016 [facility] CHEM PANEL CO2 32 24 - 32 08/23/2016 [facility] CHEM PANEL AGAP 8.7 10.0 - 20.0 08/23/2016 [facility] CHEM PANEL Sodium Lvl 141 135 - 145 08/23/2016 [facility] CHEM PANEL Chloride Lvl 103 95 - 109 08/23/2016 [facility] CHEM PANEL Potassium Lvl 2.7 3.5 - 5.1 08/23/2016 Result Comment: Critical Result(s) called to joaquín benitez at 08/23/2016 05:00 by lgb. Read back OK. [facility] CHEM PANEL Glucose Lvl 161 70 - 99 08/23/2016 [facility] CHEM PANEL BUN 6 7 - 22 08/23/2016 [facility] CHEM PANEL Creatinine Lvl 0.22 0.50 - 1.40 08/23/2016 [facility] CHEM PANEL Magnesium Lvl 1.5 1.8 - 2.4 08/23/2016 [facility] CHEM PANEL Phosphorus 1.9 2.5 - 4.5 08/23/2016 [facility] HEMATOLOGY MPV 10.7 7.4 - 10.4 08/23/2016 [facility] MCV 89.4 80.0 - 98.0 08/23/2016 [facility] Hgb 10.2 12.0 - 16.0 08/23/2016 [facility] HEMATOLOGY RBC 3.44 4.20 - 5.40 08/23/2016 [facility] HEMATOLOGY WBC 6.3 3.7 - 10.4 08/23/2016 [facility] HEMATOLOGY Hct 30.7 36.0 - 48.0 08/23/2016 [facility] HEMATOLOGY RDW 16.4 11.5 - 14.5 08/23/2016 [facility] MCHC 33.1 32.0 - 36.0 08/23/2016 [facility] MCH 29.6 27.0 - 31.0 08/23/2016 [facility] Platelet 263 133 - 450 08/23/2016 [facility] HEMATOLOGY Segs-Bands # 4.3 1.5 - 8.1 08/23/2016 [facility] HEMATOLOGY Lymphocytes # 1.2 1.0 - 5.5 08/23/2016 [facility] HEMATOLOGY Basophils 0.5 0.0 - 1.0 08/23/2016 [facility] HEMATOLOGY Eosinophils # 0.1 0.0 - 0.5 08/23/2016 [facility] HEMATOLOGY Monocytes # 0.6 0.0 - 0.8 08/23/2016 [facility] HEMATOLOGY Segs 68.4 45.0 - 75.0 08/23/2016 [facility] HEMATOLOGY Lymphocytes 19.1 20.0 - 40.0 08/23/2016 [facility] HEMATOLOGY Eosinophils 2.1 0.0 - 4.0 08/23/2016 [facility] HEMATOLOGY Monocytes 9.9 2.0 - 12.0 08/23/2016 [facility] ELECTROLYTES Potassium Lvl 2.5 3.5 - 5.1 08/22/2016 Result Comment: Critical Result(s) called to Edison Dahl at 08/22/2016 15:34 by ka. Read back OK. [facility] TOXICOLOGY Vanco Tr TND 10:00 08/22/2016 [facility] TOXICOLOGY Vanco Tr 14.0 08/22/2016 [facility] ELECTROLYTES Potassium Lvl 1.8 3.5 - 5.1 08/22/2016 Result Comment: Critical Result(s) called to Yonas Pompa at 08/22/2016 07:56 by TT. Read back OK. [facility] CHEM PANEL eGFR 166 08/22/2016 Result Comment: [...] HEMATOLOGY Hct 30.7 36.0 - 48.0 08/22/2016 [facility] HEMATOLOGY Hgb 10.3 12.0 - 16.0 08/22/2016 [facility] HEMATOLOGY RDW 16.5 11.5 - 14.5 08/22/2016 [facility] HEMATOLOGY MCHC 33.4 32.0 - 36.0 08/22/2016 [facility] HEMATOLOGY Platelet 282 133 - 450 08/22/2016 [facility] HEMATOLOGY MPV 10.4 7.4 - 10.4 08/22/2016 [facility] HEMATOLOGY RBC 3.43 4.20 - 5.40 08/22/2016 [facility] HEMATOLOGY WBC 6.3 3.7 - 10.4 08/22/2016 [facility] HEMATOLOGY MCH 29.9 27.0 - 31.0 08/22/2016 [facility] CARDIAC ENZYMES BNP 177 <=100 pg/mL 08/20/2016 [facility] TOXICOLOGY Vanco Tr TND 0900 08/20/2016 [facility] TOXICOLOGY Vanco Tr 12.6 08/20/2016 [facility] CHEM PANEL eGFR 179 08/20/2016 Result Comment: [...] should be multiplied by the estimated BMI. [facility] CHEM PANEL Sodium Lvl 138 135 - 145 08/20/2016 [facility] CHEM PANEL Creatinine Lvl <0.15 0.50 - 1.40 08/20/2016 [facility] CHEM PANEL A/G Ratio 0.6 0.7 - 1.6 08/20/2016 [facility] CHEM PANEL Alk Phos 300 39 - 136 08/20/2016 [facility] CHEM PANEL AST 15 0 - 37 08/20/2016 [facility] CHEM PANEL Bili Total 0.4 0.2 - 1.3 08/20/2016 [facility] CHEM PANEL ALT 12 0 - 65 08/20/2016 [facility] CHEM PANEL Total Protein 8.0 6.4 - 8.4 08/20/2016 [facility] CHEM PANEL Globulin 5.0 2.7 - 4.2 08/20/2016 [facility] CHEM PANEL Albumin Lvl 3.0 3.5 - 5.0 08/20/2016 [facility] CHEM PANEL B/C Ratio See Note 4 (08/20/16 5:50 AM) 6 - 25 08/20/2016 Result Comment: Unable to calculate due to Creatinine <0.15 on 08/20/2016 06:18 by Estuardo. [facility] CHEM PANEL Chloride Lvl 101 95 - 109 08/20/2016 [facility] CHEM PANEL Glucose Lvl 112 70 - 99 08/20/2016 [facility] CHEM PANEL BUN 5 7 - 22 08/20/2016 [facility] CHEM PANEL AGAP 13.5 10.0 - 20.0 08/20/2016 [facility] CHEM PANEL Calcium Lvl 8.6 8.5 - 10.5 08/20/2016 [facility] CHEM PANEL CO2 27 24 - 32 08/20/2016 [facility] HEMATOLOGY MPV 10.2 7.4 - 10.4 08/20/2016 [facility] HEMATOLOGY Platelet 322 133 - 450 08/20/2016 [facility] HEMATOLOGY RDW 16.8 11.5 - 14.5 08/20/2016 [facility] HEMATOLOGY MCHC 32.8 32.0 - 36.0 08/20/2016 [facility] HEMATOLOGY MCH 29.6 27.0 - 31.0 08/20/2016 [facility] HEMATOLOGY MCV 90.3 80.0 - 98.0 08/20/2016 [facility] HEMATOLOGY Hct 31.4 36.0 - 48.0 08/20/2016 [facility] HEMATOLOGY Hgb 10.3 12.0 - 16.0 08/20/2016 [facility] HEMATOLOGY RBC 3.48 4.20 - 5.40 08/20/2016 [facility] HEMATOLOGY WBC 4.8 3.7 - 10.4 08/20/2016 [facility] HEMATOLOGY Basophils 0.9 0.0 - 1.0 08/20/2016 [facility] HEMATOLOGY Eosinophils 2.2 0.0 - 4.0 08/20/2016 [facility] HEMATOLOGY Monocytes 10.3 2.0 - 12.0 08/20/2016 [facility] HEMATOLOGY Lymphocytes 24.0 20.0 - 40.0 08/20/2016 [facility] HEMATOLOGY Segs 62.6 45.0 - 75.0 08/20/2016 [facility] HEMATOLOGY Eosinophils # 0.1 0.0 - 0.5 08/20/2016 [facility] HEMATOLOGY Monocytes # 0.5 0.0 - 0.8 08/20/2016 [facility] HEMATOLOGY Lymphocytes # 1.1 1.0 - 5.5 08/20/2016 [facility] HEMATOLOGY Segs-Bands # 3.0 1.5 - 8.1 08/20/2016 [facility] IMMUNOLOGY Prealbumin 4.5 18.0 - 45.0 08/20/2016 [facility] CHEM PANEL Magnesium Lvl 1.7 1.8 - 2.4 08/20/2016 [facility] HEMATOLOGY INR 1.11 0.85 - 1.17 08/20/2016 [facility] HEMATOLOGY PT 14.5 12.0 - 14.7 08/20/2016 [facility] TOXICOLOGY Vanco Tr TND tbd 08/20/2016 [facility] TOXICOLOGY Vanco Tr 18.1 08/20/2016 [facility] CHEM PANEL B/C Ratio See Note (08/19/16 5:54 AM) 6 - 25 08/19/2016 [facility] CHEM PANEL AST 16 0 - 37 08/19/2016 [facility] CHEM PANEL ALT 12 0 - 65 08/19/2016 [facility] CHEM PANEL A/G Ratio 0.5 0.7 - 1.6 08/19/2016 [facility] [facility] CHEM PANEL Albumin Lvl 3.0 3.5 - 5.0 08/19/2016 [facility] CHEM PANEL Globulin 5.8 2.7 - 4.2 08/19/2016 [facility] CHEM PANEL Total Protein 8.8 6.4 - 8.4 08/19/2016 [facility] CHEM PANEL Alk Phos 358 39 - 136 08/19/2016 [facility] CHEM PANEL Bili Total 0.5 0.2 - 1.3 08/19/2016 [facility] CHEM PANEL Magnesium Lvl 1.8 1.8 - 2.4 08/19/2016 [facility] TOXICOLOGY Vanco Tr TND [id number] 08/17/2016 [facility] TOXICOLOGY Vanco Tr 9.4 08/17/2016 [facility] ANEMIA STUDY Ferritin Lvl 318 5 - 204 08/17/2016 [facility] CHEM PANEL Lipase Lvl 277 73 - 393 08/17/2016 [facility] CHEM PANEL eGFR 163 08/17/2016 Result Comment: [...] should be multiplied by the estimated BMI. [facility] CHEM PANEL Glucose Lvl 87 70 - 99 08/17/2016 [facility] CHEM PANEL Creatinine Lvl 0.20 0.50 - 1.40 08/17/2016 [facility] CHEM PANEL BUN 7 7 - 22 08/17/2016 [facility] CHEM PANEL Sodium Lvl 136 135 - 145 08/17/2016 [facility] CHEM PANEL CO2 24 24 - 32 08/17/2016 [facility] CHEM PANEL Calcium Lvl 8.5 8.5 - 10.5 08/17/2016 [facility] CHEM PANEL Potassium Lvl 3.9 3.5 - 5.1 08/17/2016 [facility] CHEM PANEL Chloride Lvl 99 95 - 109 08/17/2016 [facility] CHEM PANEL AGAP 16.9 10.0 - 20.0 08/17/2016 [facility] CHEM PANEL Phosphorus 2.6 2.5 - 4.5 08/17/2016 [facility] CHEM PANEL Magnesium Lvl 1.9 1.8 - 2.4 08/17/2016 [facility] CHEM PANEL Albumin Lvl 3.2 3.5 - 5.0 08/17/2016 [facility] ELECTROLYTES CO2 29 24 - 32 08/17/2016 [facility] ELECTROLYTES Chloride Lvl 97 95 - 109 08/17/2016 [facility] ELECTROLYTES Calcium Lvl 9.3 8.5 - 10.5 08/17/2016 [facility] ELECTROLYTES eGFR 163 08/17/2016 Result Comment: The [...] should be multiplied by the estimated BMI. [facility] ELECTROLYTES Creatinine Lvl 0.20 0.50 - 1.40 08/17/2016 [facility] ELECTROLYTES Glucose Lvl 90 70 - 99 08/17/2016 [facility] ELECTROLYTES BUN 8 7 - 22 08/17/2016 [facility] ELECTROLYTES Potassium Lvl 3.9 3.5 - 5.1 08/17/2016 [facility] ELECTROLYTES Sodium Lvl 134 135 - 145 08/17/2016 [facility] ELECTROLYTES AGAP 11.9 10.0 - 20.0 08/17/2016 [facility] MCHC 33.4 32.0 - 36.0 08/17/2016 [facility] MCH 30.1 27.0 - 31.0 08/17/2016 [facility] RDW 16.9 11.5 - 14.5 08/17/2016 [facility] RBC 3.19 4.20 - 5.40 08/17/2016 [facility] WBC 5.5 3.7 - 10.4 08/17/2016 [facility] MPV 11.6 7.4 - 10.4 08/17/2016 [facility] Platelet 283 133 - 450 08/17/2016 [facility] Hgb 9.6 12.0 - 16.0 08/17/2016 [facility] HEMATOLOGY MCV 89.9 80.0 - 98.0 08/17/2016 [facility] Hct 28.7 36.0 - 48.0 08/17/2016 [facility] HEMATOLOGY Basophils 0.7 0.0 - 1.0 08/17/2016 [facility] Segs 59.7 45.0 - 75.0 08/17/2016 [facility] HEMATOLOGY Eosinophils 3.5 0.0 - 4.0 08/17/2016 [facility] HEMATOLOGY Monocytes 9.6 2.0 - 12.0 08/17/2016 [facility] HEMATOLOGY Lymphocytes 26.5 20.0 - 40.0 08/17/2016 [facility] HEMATOLOGY Segs-Bands # 3.3 1.5 - 8.1 08/17/2016 [facility] HEMATOLOGY Eosinophils # 0.2 0.0 - 0.5 08/17/2016 [facility] HEMATOLOGY Monocytes # 0.5 0.0 - 0.8 08/17/2016 [facility] Lymphocytes # 1.5 1.0 - 5.5 08/17/2016 [facility] HEMATOLOGY PT 14.8 12.0 - 14.7 08/17/2016 [facility] HEMATOLOGY INR 1.14 0.85 - 1.17 08/17/2016 [facility] IMMUNOLOGY Prealbumin 5.3 18.0 - 45.0 08/17/2016 [facility] PARATHYROID PROFILE Ca Norm WB 1.20 1.05 - 1.25 08/17/2016 [facility] PARATHYROID PROFILE Ca Ion WB 1.19 1.05 - 1.25 08/17/2016 [facility] CHEM PANEL Magnesium Lvl 1.8 1.8 - 2.4 08/16/2016 [facility] CHEM PANEL Phosphorus 3.2 2.5 - 4.5 08/16/2016 [facility] CHEM PANEL eGFR 163 08/16/2016 Result Comment: [...] should be multiplied by the estimated BMI. [facility] CHEM PANEL AGAP 12.2 10.0 - 20.0 08/16/2016 [facility] CHEM PANEL CO2 28 24 - 32 08/16/2016 [facility] CHEM PANEL Calcium Lvl 9.2 8.5 - 10.5 08/16/2016 [facility] CHEM PANEL Chloride Lvl 98 95 - 109 08/16/2016 [facility] CHEM PANEL Potassium Lvl 3.2 3.5 - 5.1 08/16/2016 [facility] CHEM PANEL Sodium Lvl 135 135 - 145 08/16/2016 [facility] CHEM PANEL Glucose Lvl 130 70 - 99 08/16/2016 [facility] CHEM PANEL Creatinine Lvl 0.20 0.50 - 1.40 08/16/2016 [facility] CHEM PANEL BUN 9 7 - 22 08/16/2016 [facility] TOXICOLOGY Vanco Tr 5.2 08/16/2016 [facility] TOXICOLOGY Vanco Tr TND [id number] 08/16/2016 [facility] CHEM PANEL B/C Ratio 50 6 - 25 08/15/2016 [facility] CHEM PANEL Globulin 4.4 2.7 - 4.2 08/15/2016 [facility] CHEM PANEL A/G Ratio 0.9 0.7 - 1.6 08/15/2016 [facility] CHEM PANEL AST 57 0 - 37 08/15/2016 [facility] CHEM PANEL Bili Total 0.4 0.2 - 1.3 08/15/2016 [facility] CHEM PANEL Total Protein 8.2 6.4 - 8.4 08/15/2016 [facility] CHEM PANEL Albumin Lvl 3.8 3.5 - 5.0 08/15/2016 [facility] CHEM PANEL Alk Phos 666 39 - 136 08/15/2016 [facility] CHEM PANEL ALT 24 0 - 65 08/15/2016 [facility] CHEM PANEL Magnesium Lvl 1.8 1.8 - 2.4 08/15/2016 [facility] CHEM PANEL Phosphorus 1.9 2.5 - 4.5 08/15/2016 [facility] HEMATOLOGY Basophils # 0.0 0.0 - 0.2 08/15/2016 [facility] HEMATOLOGY Eosinophils # 0.3 0.0 - 0.5 08/15/2016 [facility] HEMATOLOGY Lymphocytes # 1.6 1.0 - 5.5 08/15/2016 [facility] HEMATOLOGY Monocytes # 0.7 0.0 - 0.8 08/15/2016 [facility] HEMATOLOGY Monocytes 9.9 2.0 - 12.0 08/15/2016 [facility] HEMATOLOGY Lymphocytes 22.0 20.0 - 40.0 08/15/2016 [facility] HEMATOLOGY Eosinophils 4.1 0.0 - 4.0 08/15/2016 [facility] HEMATOLOGY Segs-Bands # 4.6 1.5 - 8.1 08/15/2016 [facility] HEMATOLOGY Basophils 0.7 0.0 - 1.0 08/15/2016 [facility] Segs 63.3 45.0 - 75.0 08/15/2016 [facility] Plt Morph Normal (08/15/16 4:55 AM) 08/15/2016 [facility] RBC Morph Normal (08/15/16 4:55 AM) 08/15/2016 [facility] MPV 12.8 7.4 - 10.4 08/15/2016 [facility] RDW 16.9 11.5 - 14.5 08/15/2016 [facility] Platelet 261 133 - 450 08/15/2016 [facility] Hct 28.6 36.0 - 48.0 08/15/2016 [facility] MCV 91.0 80.0 - 98.0 08/15/2016 [facility] MCH 29.5 27.0 - 31.0 08/15/2016 [facility] MCHC 32.5 32.0 - 36.0 08/15/2016 [facility] Hgb 9.3 12.0 - 16.0 08/15/2016 [facility] RBC 3.14 4.20 - 5.40 08/15/2016 [facility] WBC 7.2 3.7 - 10.4 08/15/2016 [facility] PARATHYROID PROFILE Ca Norm WB 1.13 1.05 - 1.25 08/15/2016 [facility] PARATHYROID PROFILE Ca Ion WB 1.10 1.05 - 1.25 08/15/2016 [facility] MCV 89.0 80.0 - 98.0 08/14/2016 [facility] Hct 28.5 36.0 - 48.0 08/14/2016 [facility] Hgb 9.4 12.0 - 16.0 08/14/2016 [facility] RBC 3.21 4.20 - 5.40 08/14/2016 [facility] MCHC 32.9 32.0 - 36.0 08/14/2016 [facility] Platelet 261 133 - 450 08/14/2016 [facility] RDW 16.7 11.5 - 14.5 08/14/2016 [facility] MCH 29.3 27.0 - 31.0 08/14/2016 [facility] HEMATOLOGY WBC 7.1 3.7 - 10.4 08/14/2016 [facility] HEMATOLOGY MPV 12.1 7.4 - 10.4 08/14/2016 [facility] TOXICOLOGY Vanco Tr TND [id number] 08/14/2016 [facility] TOXICOLOGY Vanco Tr 2.7 08/14/2016 [facility] CHEM PANEL A/G Ratio 0.6 0.7 - 1.6 08/14/2016 [facility] CHEM PANEL B/C Ratio 40 6 - 25 08/14/2016 [facility] CHEM PANEL Globulin 4.9 2.7 - 4.2 08/14/2016 [facility] CHEM PANEL AST 27 0 - 37 08/14/2016 [facility] CHEM PANEL Total Protein 8.0 6.4 - 8.4 08/14/2016 [facility] CHEM PANEL ALT 19 0 - 65 08/14/2016 [facility] CHEM PANEL Albumin Lvl 3.1 3.5 - 5.0 08/14/2016 [facility] CHEM PANEL Bili Total 0.5 0.2 - 1.3 08/14/2016 [facility] CHEM PANEL Alk Phos 594 39 - 136 08/14/2016 [facility] PARATHYROID PROFILE Ca Norm WB 1.15 1.05 - 1.25 08/14/2016 [facility] PARATHYROID PROFILE Ca Ion WB 1.11 1.05 - 1.25 08/14/2016 [facility] CHEM PANEL Alk Phos 424 39 - 136 08/13/2016 [facility] CHEM PANEL Bili Total 0.7 0.2 - 1.3 08/13/2016 [facility] CHEM PANEL Total Protein 7.6 6.4 - 8.4 08/13/2016 [facility] CHEM PANEL B/C Ratio 40 6 - 25 08/13/2016 [facility] CHEM PANEL ALT 17 0 - 65 08/13/2016 [facility] CHEM PANEL AST 26 0 - 37 08/13/2016 [facility] CHEM PANEL Globulin 4.7 2.7 - 4.2 08/13/2016 [facility] CHEM PANEL A/G Ratio 0.6 0.7 - 1.6 08/13/2016 [facility] HEMATOLOGY Segs 74.5 45.0 - 75.0 08/11/2016 [facility] HEMATOLOGY Monocytes # 0.6 0.0 - 0.8 08/11/2016 [facility] HEMATOLOGY Lymphocytes # 1.0 1.0 - 5.5 08/11/2016 [facility] HEMATOLOGY Segs-Bands # 5.0 1.5 - 8.1 08/11/2016 [facility] HEMATOLOGY Basophils 0.7 0.0 - 1.0 08/11/2016 [facility] HEMATOLOGY Eosinophils 0.6 0.0 - 4.0 08/11/2016 [facility] HEMATOLOGY Monocytes 9.3 2.0 - 12.0 08/11/2016 [facility] HEMATOLOGY Lymphocytes 14.9 20.0 - 40.0 08/11/2016 [facility] HEMATOLOGY Basophils # 0.0 0.0 - 0.2 08/09/2016 [facility] HEMATOLOGY RBC Morph Normal (08/09/16 6:11 AM) 08/09/2016 [facility] HEMATOLOGY Plt Morph Normal (08/09/16 6:11 AM) 08/09/2016 [facility] Eosinophils # 0.1 0.0 - 0.5 08/09/2016 [facility] CHEM PANEL Lipase Lvl 760 73 - 393 08/08/2016 [facility] BODY FLUIDS Lipase BF >09471 08/07/2016 [facility] BODY FLUIDS Lipase BF Type Paracen (08/07/16 1:29 PM) 08/07/2016 [facility] HEMATOLOGY PT 17.2 12.0 - 14.7 08/07/2016 [facility] HEMATOLOGY INR 1.38 0.85 - 1.17 08/07/2016 [facility] PTT 33.6 22.9 - 35.8 08/07/2016 [facility] CHEM PANEL Lipase Lvl 716 73 - 393 08/07/2016 [facility] BODY FLUIDS Lipase BF >68757 08/06/2016 [facility] BODY FLUIDS Lipase BF Type OTHER (08/06/16 4:43 PM) 08/06/2016 [facility] BODY FLUIDS Amylase BF Cyst >78040 08/06/2016 Result Comment: [place] [id number] [facility] TUMOR MARKERS CEA 1.5 0.0 - 3.0 08/06/2016 [facility] CHEM PANEL Bili Direct 0.1 0.0 - 0.3 08/06/2016 [facility] IMMUNOLOGY Prealbumin 8.1 18.0 - 45.0 08/06/2016 [facility] LIPIDS Trig 47 <=149 mg/dL 08/06/2016 [facility] CHEM PANEL Bili Indirect 0.2 0.0 - 1.0 08/02/2016 [facility] CHEM PANEL Bili Direct 0.1 0.0 - 0.3 08/02/2016 [facility] CHEM PANEL Lactic Acid Lvl 1.1 0.5 - 2.2 08/02/2016 [facility] CHEM PANEL Bili Indirect 0.2 0.0 - 1.0 07/30/2016 [facility] CHEM PANEL Bili Direct 0.1 0.0 - 0.3 07/30/2016 [facility] IMMUNOLOGY Prealbumin 4.1 18.0 - 45.0 07/30/2016 [facility] LIPIDS Trig 46 <=149 mg/dL 07/30/2016 [facility] MOLECULAR DIAGNOSTIC C difficile DNA Negative (07/29/16 4:52 AM) Negative 07/29/2016 [facility] HEMATOLOGY Basophils # 0.1 0.0 - 0.2 07/27/2016 [facility] IMMUNOLOGY Hep Bs Ag Negative *NA* (07/26/16 5:43 AM) Negative 07/26/2016 [facility] Hep C Ab Negative *NA* (07/26/16 5:43 AM) 07/26/2016 [facility] Hep B Core IgM Negative *NA* (07/26/16 5:43 AM) Negative 07/26/2016 [facility] Hep A IgM Negative *NA* (07/26/16 5:43 AM) Negative 07/26/2016 [facility] URINE AND STOOL Micro? Performed *NA* (07/23/16 11:31 AM) 07/23/2016 [facility] URINE AND STOOL UA Urobilinogen <=1.0 0.1 - 1.0 07/23/2016 [facility] URINE AND STOOL UA pH 7.0 5.0 - 8.0 07/23/2016 [facility] URINE AND STOOL UA Protein 100 mg/dL Negative mg/dL 07/23/2016 [facility] URINE AND STOOL UA Spec Grav 1.014 <=1.030 07/23/2016 [facility] URINE AND STOOL UA Turbidity Moderate *ABN* (07/23/16 11:31 AM) Clear 07/23/2016 [facility] URINE AND STOOL UA Color Yellow *NA* (07/23/16 11:31 AM) Yellow 07/23/2016 [facility] URINE AND STOOL UA Amorph Ivory Occasional /HPF None Seen /HPF 07/23/2016 [facility] URINE AND STOOL UA Sq Epi Occasional /LPF Few /LPF 07/23/2016 [facility] URINE AND STOOL UA WBC 1 0 - 5 07/23/2016 [facility] URINE AND STOOL UA RBC 20 0 - 2 07/23/2016 [facility] URINE AND STOOL UA Blood Small *ABN* (07/23/16 11:31 AM) Negative 07/23/2016 [facility] URINE AND STOOL UA Nitrite Negative (07/23/16 11:31 AM) Negative 07/23/2016 [facility] URINE AND STOOL UA Bili Negative *NA* (07/23/16 11:31 AM) Negative 07/23/2016 [facility] URINE AND STOOL UA Glucose 150 mg/dL Negative mg/dL 07/23/2016 [facility] URINE AND STOOL UA Ketones Negative mg/dL Negative mg/dL 07/23/2016 [facility] URINE AND STOOL UA Bacteria Occasional /HPF None Seen /HPF 07/23/2016 [facility] URINE AND STOOL UA Leuk Est Trace *ABN* (07/23/16 11:31 AM) Negative 07/23/2016 [facility] CHEM PANEL Bili Indirect 0.4 0.0 - 1.0 07/23/2016 [facility] HEMATOLOGY RBC Morph Normal (07/23/16 5:27 AM) 07/23/2016 [facility] HEMATOLOGY Plt Morph Normal (07/23/16 5:27 AM) 07/23/2016 [facility] LIPIDS Trig 74 <=149 mg/dL 07/23/2016 [facility] HEMATOLOGY Sed Rate 60 0 - 20 07/22/2016 [facility] HEMATOLOGY Sed Rate 52 0 - 20 07/21/2016 [facility] BODY FLUIDS LDH BF 940 07/19/2016 [facility] BODY FLUIDS LDH BF Type Ascites (07/19/16 9:01 AM) 07/19/2016 [facility] BODY FLUIDS WBC BF 188 07/19/2016 [facility] BODY FLUIDS RBC BF 300 07/19/2016 [facility] BODY FLUIDS CellCnt BF Type Ascites (07/19/16 9:01 AM) 07/19/2016 [facility] BODY FLUIDS Color BF Dark Yellow (07/19/16 9:01 AM) Colorless 07/19/2016 [facility] BODY FLUIDS Clarity BF Slight Cloudy (07/19/16 9:01 AM) Clear 07/19/2016 [facility] BODY FLUIDS Segs BF 43 07/19/2016 [facility] BODY FLUIDS Lymph BF 3 07/19/2016 [facility] BODY FLUIDS Macrophage BF 54 07/19/2016 [facility] BODY FLUIDS Albumin BF 2.2 07/19/2016 [facility] BODY FLUIDS Alb BF Type Ascites *NA* (07/19/16 9:01 AM) 07/19/2016 [facility] BLOOD BANK RESULTS Antibody Scrn Negative (07/12/16 11:29 AM) 07/12/2016 [facility] BLOOD BANK RESULTS ABO/Rh O POS 07/12/2016 [facility] BLOOD [facility] RESULTS RBC product Product available (07/12/16 11:12 AM) 07/12/2016 [facility] BLOOD BANK RESULTS RBC product Product available (07/12/16 10:15 AM) 07/12/2016 [facility] MOLECULAR DIAGNOSTIC C difficile DNA Negative (07/08/16 9:16 PM) Negative 07/09/2016 [facility] HEMATOLOGY Anisocyte 1+ *ABN* (07/08/16 11:40 AM) None Seen 07/08/2016 [facility] HEMATOLOGY PTT 31.6 22.9 - 35.8 07/06/2016 [facility] HEMATOLOGY PT 18.8 12.0 - 14.7 07/06/2016 [facility] HEMATOLOGY INR 1.54 0.85 - 1.17 07/06/2016 [facility] SPECIAL CHEMISTRY Hgb A1C 7.0 <=5.6 % 07/06/2016 [facility] CHEM PANEL Vitamin D, 25-OH, Total <13 30 - 100 07/05/2016 [facility] PARATHYROID PROFILE Ca Norm WB 0.96 1.05 - 1.25 07/05/2016 [facility] PARATHYROID PROFILE Ca Ion WB 0.97 1.05 - 1.25 07/05/2016 [facility] CHEM PANEL Lipase Lvl 630 73 - 393 07/05/2016 [facility] CHEM PANEL eGFR 163 07/05/2016 Result Comment: [...] Magnesium Lvl 1.6 1.8 - 2.4 07/05/2016 [facility] HEMATOLOGY Hct 29.2 36.0 - 48.0 07/05/2016 [facility] HEMATOLOGY MCH 28.2 27.0 - 31.0 07/05/2016 [facility] HEMATOLOGY MCV 88.4 80.0 - 98.0 07/05/2016 [facility] HEMATOLOGY MCHC 31.8 32.0 - 36.0 07/05/2016 [facility] RDW 23.5 11.5 - 14.5 07/05/2016 [facility] Platelet 169 133 - 450 07/05/2016 [facility] Hgb 9.3 12.0 - 16.0 07/05/2016 [facility] WBC 7.3 3.7 - 10.4 07/05/2016 [facility] RBC 3.31 4.20 - 5.40 07/05/2016 [facility] MPV 9.4 7.4 - 10.4 07/05/2016 [facility] Monocytes 7.7 2.0 - 12.0 07/05/2016 [facility] Lymphocytes 12.6 20.0 - 40.0 07/05/2016 [facility] Segs 78.6 45.0 - 75.0 07/05/2016 [facility] Segs-Bands # 5.7 1.5 - 8.1 07/05/2016 [facility] Eosinophils # 0.1 0.0 - 0.5 07/05/2016 [facility] Monocytes # 0.6 0.0 - 0.8 07/05/2016 [facility] Lymphocytes # 0.9 1.0 - 5.5 07/05/2016 [facility] Eosinophils 0.8 0.0 - 4.0 07/05/2016 [facility] Basophils 0.3 0.0 - 1.0 07/05/2016 [facility] CHEM PANEL eGFR 179 07/03/2016 Result Comment: [...] should be multiplied by the estimated BMI. [facility] CHEM PANEL BUN 5 7 - 22 [...] HEMATOLOGY Segs 81.6 45.0 - 75.0 07/03/2016 [facility] HEMATOLOGY MPV 9.2 7.4 - 10.4 07/03/2016 [facility] HEMATOLOGY Platelet 242 133 - 450 07/03/2016 [facility] HEMATOLOGY MCH 28.0 27.0 - 31.0 07/03/2016 [facility] HEMATOLOGY MCV 87.7 80.0 - 98.0 07/03/2016 [facility] HEMATOLOGY Hct 31.5 36.0 - 48.0 07/03/2016 [facility] HEMATOLOGY RBC 3.60 4.20 - 5.40 07/03/2016 [facility] HEMATOLOGY Hgb 10.1 12.0 - 16.0 07/03/2016 [facility] HEMATOLOGY WBC 10.3 3.7 - 10.4 07/03/2016 [facility] HEMATOLOGY RDW 24.1 11.5 - 14.5 07/03/2016 [facility] HEMATOLOGY MCHC 31.9 32.0 - 36.0 07/03/2016 [facility] CARDIAC ENZYMES BNP 267 <=100 pg/mL 07/02/2016 [facility] CHEM PANEL Magnesium Lvl 1.9 1.8 - 2.4 07/02/2016 [facility] CHEM PANEL Magnesium Lvl 1.7 1.8 - 2.4 07/01/2016 [facility] CHEM PANEL Phosphorus 3.1 2.5 - 4.5 07/01/2016 [facility] CHEM PANEL eGFR 175 07/01/2016 Result Comment: [...] should be multiplied by the estimated BMI. [facility] CHEM PANEL B/C Ratio 38 6 - 25 07/01/2016 [facility] CHEM PANEL Total Protein 5.4 6.4 - [...] PANEL CO2 25 24 - 32 07/01/2016 [facility] CHEM PANEL Creatinine Lvl 0.16 0.50 - 1.40 07/01/2016 [facility] CHEM PANEL Sodium Lvl 133 135 - 145 07/01/2016 [facility] CHEM PANEL Bili Total 0.6 0.2 - 1.3 07/01/2016 [facility] CHEM PANEL Alk Phos 203 39 - 136 07/01/2016 [facility] CHEM PANEL Globulin 4.2 2.7 - 4.2 07/01/2016 [facility] CHEM PANEL A/G Ratio 0.3 0.7 - 1.6 07/01/2016 [facility] CHEM PANEL ALT 9 0 - 65 07/01/2016 [facility] CHEM PANEL AST 21 0 - 37 07/01/2016 [facility] CHEM PANEL Albumin Lvl 1.2 3.5 - 5.0 07/01/2016 [facility] CHEM PANEL Glucose Lvl 128 70 - 99 07/01/2016 [facility] CHEM PANEL BUN 6 7 - 22 07/01/2016 [facility] HEMATOLOGY Platelet 268 133 - 450 07/01/2016 [facility] HEMATOLOGY MPV 10.1 7.4 - 10.4 07/01/2016 [facility] HEMATOLOGY RDW 24.3 11.5 - 14.5 07/01/2016 [facility] HEMATOLOGY MCHC 33.2 32.0 - 36.0 07/01/2016 [facility] HEMATOLOGY Hgb 11.1 12.0 - 16.0 07/01/2016 [facility] HEMATOLOGY RBC 3.89 4.20 - 5.40 07/01/2016 [facility] HEMATOLOGY WBC 17.3 3.7 - 10.4 07/01/2016 [facility] HEMATOLOGY MCH 28.5 27.0 - 31.0 07/01/2016 [facility] HEMATOLOGY MCV 85.8 80.0 - 98.0 07/01/2016 [facility] HEMATOLOGY Hct 33.4 36.0 - 48.0 07/01/2016 [facility] HEMATOLOGY Monocytes # 1.1 0.0 - 0.8 07/01/2016 [facility] HEMATOLOGY Lymphocytes # 1.4 1.0 - 5.5 07/01/2016 [facility] HEMATOLOGY Segs-Bands # 14.7 1.5 - 8.1 07/01/2016 [facility] HEMATOLOGY Basophils 0.1 0.0 - 1.0 07/01/2016 [facility] HEMATOLOGY Eosinophils 0.1 0.0 - 4.0 07/01/2016 [facility] HEMATOLOGY Monocytes 6.5 2.0 - 12.0 07/01/2016 [facility] HEMATOLOGY Lymphocytes 8.2 20.0 - 40.0 07/01/2016 [facility] HEMATOLOGY Segs 85.1 45.0 - 75.0 07/01/2016 [facility] CHEM PANEL Amylase Lvl 191 25 - 115 06/30/2016 [facility] CHEM PANEL Lipase Lvl 943 73 - 393 06/30/2016 [facility] CHEM PANEL B/C Ratio 30 6 - 25 06/30/2016 [facility] URINE CHEM U Preg Negative (06/29/16 1:46 PM) Negative 06/29/2016 [facility] CHEM PANEL Amylase Lvl 170 25 - 115 06/29/2016 [facility] CHEM PANEL Phosphorus 3.0 2.5 - 4.5 06/29/2016 [facility] PARATHYROID PROFILE Ca Norm WB 0.97 1.05 - 1.25 06/29/2016 [facility] PARATHYROID PROFILE Ca Ion WB 0.97 1.05 - 1.25 06/29/2016 [facility] PARATHYROID PROFILE Ca Norm WB 0.94 1.05 - 1.25 06/28/2016 [facility] PARATHYROID PROFILE Ca Ion WB 0.95 1.05 - 1.25 06/28/2016 [facility] HEMATOLOGY Plt Morph Normal (06/27/16 4:40 AM) 06/27/2016 [facility] HEMATOLOGY RBC Morph Normal (06/27/16 4:40 AM) 06/27/2016 [facility] MOLECULAR DIAGNOSTIC C difficile DNA Negative (06/24/16 8:37 PM) Negative 06/25/2016 [facility] URINE AND STOOL Fecal Leukocyte None Seen (06/24/16 8:37 PM) 06/25/2016 [facility] ENDOCRINOLOGY Aldos/Renin Ratio <0.2 0.0 - 30.0 06/22/2016 Result Comment: Units: ng/dL per ng/mL/hr
Performed At: [facility]
[address], [place] [id number]
Milton Suárez MD Ph:[phone] [facility] ENDOCRINOLOGY Aldosterone <1.0 0.0 - 30.0 06/22/2016 Result Comment:
This test was developed and its performance characteristics
determined by [facility]. It has not been cleared or
approved by the Food and Drug Administration. [facility] ENDOCRINOLOGY Renin Activity 4.74 06/22/2016 Result Comment: Adult Normal Salt
Intake:
Upright 1.31 - 3.95
Supine 0.15 - 2.33

Salt Excretion
(Na mEq/24 hr):
Na=0 - 30 8.82 - 23.86
Na=30 - 75 4.09 - 7.73
Na=75 - 150 1.44 - 2.80
Na=>150 0.39 - 1.31 [facility] ANEMIA STUDY Vitamin B12 Lvl 476 254 - 1320 06/22/2016 [facility] ANEMIA STUDY Folate Lvl 3.8 >=3.0 ng/mL 06/22/2016 [facility] CHEM PANEL Ammonia 39.0 <=45.0 uMol/L 06/22/2016 [facility] HEMATOLOGY Eosinophils # 0.2 0.0 - 0.5 06/19/2016 [facility] CHEM PANEL Amylase Lvl 149 25 - 115 06/18/2016 [facility] LIPIDS Chol <50 <=199 mg/dL 06/18/2016 [facility] LIPIDS Trig 108 <=149 mg/dL 06/18/2016 [facility] LIPIDS HDL 12 >=61 mg/dL 06/18/2016 [facility] LIPIDS CHD Risk <4.17 3.90 - 5.80 06/18/2016 [facility] LIPIDS VLDL 22 06/18/2016 [facility] LIPIDS LDL (Calculated) 16 <=99 mg/dL 06/18/2016 [facility] CHEM PANEL Bili Indirect 0.3 0.0 - 1.0 06/17/2016 [facility] CHEM PANEL Bili Direct 0.5 0.0 - 0.3 06/17/2016 [facility] HEMATOLOGY Plt Morph Clumped (06/17/16 1:16 PM) 06/17/2016 [facility] HEMATOLOGY RBC Morph Normal (06/17/16 1:16 PM) 06/17/2016 [facility] TUMOR MARKERS AFP 3.2 0.0 - 11.0 06/17/2016 [facility] TUMOR MARKERS CA 125 354.0 0.0 - 35.0 06/17/2016 [facility] TUMOR MARKERS CEA 2.1 0.0 - 3.0 06/17/2016 [facility] CARDIAC ENZYMES Troponin-I <0.02 0.00 - 0.40 06/16/2016 [facility] CARDIAC ENZYMES CK MB 1.5 0.5 - 3.6 06/16/2016 [facility] CARDIAC ENZYMES Troponin-I 0.03 0.00 - 0.40 06/16/2016 [facility] CARDIAC ENZYMES CK MB 1.6 0.5 - 3.6 06/16/2016 [facility] CHEM PANEL Procalcitonin Lvl 0.11 0.00 - 0.10 06/16/2016 [facility] IMMUNOLOGY HIV 1/2 Ab Negative *NA* (06/16/16 5:11 AM) Negative 06/16/2016 [facility] BACTERIAL - SEROLOGY MRSA by PCR Negative (06/16/16 4:26 AM) 06/16/2016 [facility] DRUG SCREEN U Kristen Scr Negative *NA* (06/16/16 4:26 AM) Negative 06/16/2016 [facility] DRUG SCREEN U Cocaine Scr Negative *NA* (06/16/16 4:26 AM) Negative 06/16/2016 [facility] DRUG SCREEN U Opiate Scr Positive *ABN* (06/16/16 4:26 AM) Negative 06/16/2016 [facility] DRUG SCREEN U Phencyc Scr Negative *NA* (06/16/16 4:26 AM) Negative 06/16/2016 [facility] DRUG SCREEN U Benzodia Scr Negative *NA* (06/16/16 4:26 AM) Negative 06/16/2016 [facility] DRUG SCREEN U Cannab Scr Negative *NA* (06/16/16 4:26 AM) Negative 06/16/2016 [facility] DRUG SCREEN U Amph Scr Negative *NA* (06/16/16 4:26 AM) Negative 06/16/2016 [facility] DRUG SCREEN UDS Note See Note (06/16/16 4:26 AM) 06/16/2016 [facility] URINE AND STOOL UA Color Ltyellow 06/16/2016 [facility] URINE AND STOOL UA Urobilinogen <=1.0 mg/dL 0.1 - 1.0 06/16/2016 [facility] URINE AND STOOL UA Hyal Cast 5 0 - 2 06/16/2016 [facility] URINE AND STOOL UA RBC 2 0 - 2 06/16/2016 [facility] URINE AND STOOL UA Trans Epi 11 <=0 /LPF 06/16/2016 [facility] URINE AND STOOL UA Leuk Est Large *ABN* (06/16/16 4:26 AM) Negative 06/16/2016 [facility] URINE AND STOOL UA Sq Epi Occasional /LPF Few /LPF 06/16/2016 [facility] URINE AND STOOL UA WBC 79 0 - 5 06/16/2016 [facility] URINE AND STOOL UA Nitrite Negative (06/16/16 4:26 AM) Negative 06/16/2016 [facility] URINE AND STOOL UA Blood Moderate *ABN* (06/16/16 4:26 AM) Negative 06/16/2016 [facility] URINE AND STOOL UA Bili Negative *NA* (06/16/16 4:26 AM) Negative 06/16/2016 [facility] URINE AND STOOL UA Glucose Negative mg/dL Negative mg/dL 06/16/2016 [facility] URINE AND STOOL UA Ketones Negative mg/dL Negative mg/dL 06/16/2016 [facility] URINE AND STOOL UA Protein Negative mg/dL Negative mg/dL 06/16/2016 [facility] URINE AND STOOL UA Spec Grav 1.016 <=1.030 06/16/2016 [facility] URINE AND STOOL UA Turbidity Slight *ABN* (06/16/16 4:26 AM) Clear 06/16/2016 [facility] URINE AND STOOL UA pH 7.0 5.0 - 8.0 06/16/2016 [facility] HEMATOLOGY D-Dimer 4.48 06/16/2016 [facility] CARDIAC ENZYMES Troponin-I 0.03 0.00 - 0.40 06/16/2016 [facility] CARDIAC ENZYMES CK MB 1.3 0.5 - 3.6 06/16/2016 [facility] CARDIAC ENZYMES Total CK 19 12 - 191 06/16/2016 [facility] CARDIAC ENZYMES CK MB Index 6.8 0.0 - 2.5 06/16/2016 [facility] ENDOCRINOLOGY hCG Tot <1 06/16/2016 [facility] HEMATOLOGY Plt Morph Normal (06/15/16 9:26 PM) 06/16/2016 [facility] HEMATOLOGY RBC Morph Normal (06/15/16 9:26 PM) 06/16/2016 [facility] Pathology Reports No Data Provided for This [...] Left ureteral stent again seen. 09/04/2018 [facility] Chest 1view DX 1 view chest portable: HISTORY: Chest pain. FINDINGS: Both lungs are clear. The heart and mediastinal contour stable from 03/09/2017. No pleural fluid or pneumothorax. IMPRESSION: No acute finding SL: MATTHEW 10/29/2017 [facility] MRI PANCREAS W/O CONTRAST IMPRESSION:1.Mild intrahepatic and [...] left renal pelvis and the distal outside [id number]. *Moderate to severe left hydronephrosis is again [...] renal pelvis and the distal outside the [id number]. * Moderate to severe left hydronephrosis is [...] Joyce Novoa MD, 09/30/2017 3:04 PM 09/30/2017 [facility]/S THYROID/NECK IMPRESSION:Enlarged goiter heterogeneous thyroid with nodules [...] Ha Joseph MD, 09/27/2017 4:31 PM 09/27/2017 [facility] U/S ABDOMEN Addendum by Ha Joseph MD [...] Queen at 12:20 PM on 09/27/2017. This [facility] radiology report is a preliminary resident dictation until finalized by an attending. Changes to this preliminary report may occur in an additional preliminary or finalized version. Dictated By: Hesham Montaño MD, 09/27/2017 12:28 PM I have reviewed the study and agree with the findings in this report. Signed By: Ha Joseph MD, 09/27/2017 12:32 PM 09/27/2017 [facility] XRAY CHEST 1 VIEW IMPRESSION:No acute cardiopulmonary [...] IMPRESSION: No acute cardiopulmonary abnormality. Signed By: pAril Daniel MD, 09/27/2017 12:33 AM 09/27/2017 [facility] U/S TRANSVAGINAL IMPRESSION:1.Large central fibroid with likely [...] Gordon Nunez MD, 09/24/2017 1:34 PM 09/24/2017 [facility]/S PELVIS NON-OB IMPRESSION:1.Large central fibroid with likely [...] Nunez MD, 09/24/2017 1:34 PM 09/24/2017 [facility] Abdomen/Pelvis wo IV contrast CT CT ABDOMEN [...] identified. 5. Large fibroid uterus. SL:16 03/09/2017 [facility] Pelvis w pelvis doppler US EXAM: US [...] largest measuring 6.6 and 5.2 cm. SL: [id number] 03/09/2017 [facility] Chest 1view DX Patient Name: CHIKA BOJORQUEZ : 1975; Age: 41 years Female MR: [id number] Study: Chest 1view DX Order Time: 03/09/2017 [...] of acute pulmonary disease. SL: [id number] 03/09/2017 [facility] Abdomen AP DX Patient Name: CHIKA BOJORQUEZ : 1975; Age: 41 years Female MR: [id number] Study: Abdomen AP DX 12/27/2016 8:18 AM [...] from 09/19/2016. Nonobstructive bowel gas pattern. SL: [id number] 12/27/2016 [facility] Abdomen/Pelvis w IV contrast CT Abdomen/Pelvis w [...] change from previous study is noted. SL: [id number] 09/20/2016 [facility] Abscess or cyst drain/aspirate VR Patient Name: CHIKA BOJORQUEZ : 1975; Age: 40 years Female MR: [id number] Study: Abscess or cyst drain/aspirate VR 09/12/2016 2:55 PM OPTICAL EFFECTS CAMERA OPERATOR PROCEDURE: CT-guided exchange of a right abdominal drainage catheter CLINICAL INFORMATION: Pancreatitis and multiple pseudocysts CONSENT: The procedure, risks, benefits and alternatives were discussed with the patient and written informed consent was obtained. TECHNIQUE: metal cut off saw operator: Dr. Renteria Preoperative diagnosis: Pancreatitis and [...] existing catheter was then exchanged for a 16-Hungarian gastrostomy catheter. At this point, no larger [...] the right lower quadrant drainage catheter. A 16-Hungarian gastrostomy tube was placed as that is the largest catheter currently in stock. Patient will likely need aggressive irrigation, TPA administration, and likely further upsizing of the drainage catheter. SL: [id number] 09/13/2016 [facility] Nasogastric tube placement VR Patient Name: CHIKA BOJORQUEZ : 1975; Age: 40 years Female MR: [id number] Study: Nasogastric tube placement VR 09/13/2016 7:22 AM OPTICAL EFFECTS CAMERA OPERATOR PROCEDURE: Repositioning of the Dobbhoff tube CLINICAL INFORMATION: Nonfunctioning Dobbhoff tube. CONSENT: The procedure, risks, benefits and alternatives were discussed with the patient and written informed consent was obtained. TECHNIQUE: metal cut off saw operator: Dr. Renteria Preoperative diagnosis: Nonfunctioning Dobbhoff [...] Successful repositioning of the Dobbhoff tube. SL: [id number] 09/13/2016 [facility] Chest 1view DX Study: Chest 1view DX 09/12/2016 8:42 PM OPTICAL EFFECTS CAMERA OPERATOR Patient Name: CHIKA BOJORQUEZ MR: [id number] : 1975; Age: 40 years y/o Female [...] image would be confirmatory. SL: TPAINTER-PC 09/12/2016 [facility] Endoscopic Retro Pancreatogram ERCP DX Patient Name: CHIKA BOJORQUEZ : 1975; Age: 40 years Female MR: [id number] Study: Endoscopic Retro Pancreatogram ERCP DX 09/12/2016 10:29 AM OPTICAL EFFECTS CAMERA OPERATOR CLINICAL INDICATION: PANCREATIC DUCT COMPARISON: None FINDINGS: Limited intraoperative fluoroscopic images provided for ERCP. Initial glandular demonstrates a dilated common bile duct possibly related to a distal stricture. The main pancreatic duct was subsequently cannulated followed by stent placement. The Dobbhoff tube also appears to have been removed. SL: [id number] 09/12/2016 [facility] Abdomen/Pelvis wo IV contrast CT EXAM: CT [...] left hydronephrosis which is now mild. 09/05/2016 [facility] Chest 1 v for Placement DX EXAM: XR CHEST 1 VIEW DATE: 08/29/2016 3:27 PM OPTICAL EFFECTS CAMERA OPERATOR INDICATION: PICC Line Reposition COMPARISON: 08/23/2016 TECHNIQUE: AP chest IMPRESSION: 1. Left PICC line again seen with tip terminates at the atriocaval junction. Interval unlooping of the feeding tube. 2. Both lungs are clear. Costophrenic recesses are sharp. Cardiomediastinal silhouette within normal limits. No acute osseous abnormalities. 08/29/2016 [facility] Abdomen cyst aspiration w guidance CT STUDY: VIR Fluid Collection Drain Peritoneal STUDY: VIR CT Guidance DATE: 08/27/2016 INDICATION(S): 40-year-old with Pancreatic pseudocyst/pseudocyst abscess in the lower abdomen request is for percutaneous drain placement. PROCEDURE(S) PERFORMED: Successful CT-guided placement of a 14-Hungarian biliary type drain into the pancreatic fluid collection. BELLOWS CHARGER ASSEMBLER: Dr. Colindres INSIDE SALES SPECIALIST(S): Mariana Carrizales CONSENT: Written consent obtained after [...] was sequentially dilated using a 10, 12, 14-Hungarian dilators. After creating additional hole catheter 14-Hungarian drain, it was placed into the site [...] collection is present in the abdomen. A 14-Hungarian drain was successfully placed traversing the entire [...] Attending, was present for the procedure. 08/27/2016 [facility] Abdomen AP DX EXAM: XR ABDOMEN 1 FRONTAL VIEW DATE: 08/24/2016 3:45 PM OPTICAL EFFECTS CAMERA OPERATOR INDICATION: Tube placement/removal/reposition ADDITIONAL INFORMATION: None. COMPARISON: [...] 1. New enteric tube is detailed. 08/24/2016 [facility] ERCP Diagnostic DX EXAM: ERCP Diagnostic DX DATE: 08/24/2016 3:01 PM OPTICAL EFFECTS CAMERA OPERATOR INDICATION: Bile Duct Stones ADDITIONAL INFORMATION: None. [...] recommend correlation with findings observed by the lifeguard in real-time by performing the pancreaticogram. 3. Dilated main pancreatic duct and side branches in the proximal main pancreatic duct region consistent with chronic pancreatitis change. 08/24/2016 [facility] Abdomen AP DX EXAM: XR ABDOMEN 1 FRONTAL VIEW DATE: 08/24/2016 8:39 AM OPTICAL EFFECTS CAMERA OPERATOR INDICATION: Tube placement/removal/reposition ADDITIONAL INFORMATION: None. COMPARISON: [...] bowel gas pattern. Moderate stool burden. 08/24/2016 [facility] Chest 1view DX Portable chest: The PICC line tip is in satisfactory position at the cavoatrial junction. The feeding tube tip is in the 2nd portion of the duodenum with the tube coiled in the stomach. The lungs and pleural spaces are clear. There is no other significant change compared to the earlier exam on the same day. [id number] 08/23/2016 [facility] Chest 1view DX Patient Name: CHIKA BOJORQUEZ : 1975; Age: 40 years Female MR: [id number] Study: Chest 1view DX Order Time: 08/23/2016 1:21 PM OPTICAL EFFECTS CAMERA OPERATOR Clinical Indication: PICC Line Placement. STAT portable [...] line tip in the right atrium. SL: [id number] 08/23/2016 [facility] Abdomen AP DX Patient Name: CHIKA BOJORQUEZ : 1975; Age: 40 years Female MR: [id number] Study: Abdomen AP DX 08/22/2016 4:50 PM OPTICAL EFFECTS CAMERA OPERATOR. Clinical Indication: Feeding intolerance. COMPARISON: July 2016 [...] 3. Gastric drainage device. 4. Constipation. SL: [id number] 08/22/2016 [facility] Abdomen AP DX Portable chest: The feeding tube is coiled in the stomach with the tip in the 2nd portion of the duodenum, unchanged from the previous day. A left ureteral stent remains in satisfactory position. The ab dominal gas pattern is normal. There is no visible pneumoperitoneum. There is no other significant change. SL DLAWRENCE-PC 08/21/2016 [facility] Chest 1view DX Study: Chest 1view DX 08/20/2016 7:04 PM OPTICAL EFFECTS CAMERA OPERATOR Patient Name: CHIKA BOJORQUEZ MR: [id number] : 1975; Age: 40 years y/o Female [...] upper limits of normal. SL: TPAINTER-PC 08/20/2016 [facility] Abdomen AP DX Patient Name: CHIKA BOJORQUEZ : 1975; Age: 40 years Female MR: [id number] Study: Abdomen AP DX 08/20/2016 2:52 PM OPTICAL EFFECTS CAMERA OPERATOR. Clinical Indication: Tube placement/removal/reposition. COMPARISON: None FINDINGS: [...] 2. Inferiorly positioned left ureteral stent. SL: [id number] 08/20/2016 [facility] Abdomen 1 v for Placement DX Patient Name: CHIKA BOJORQUEZ : 1975; Age: 40 years y/o Female MR: [id number] Study: Abdomen 1 v for Placement DX 08/16/2016 2:35 PM OPTICAL EFFECTS CAMERA OPERATOR Ordering Physician: En Cabello MD Clinical Indication: [...] abnormalities. No mass or abnormal calcifications. SL: [id number] 08/16/2016 [facility] Fluoroscopy assist to 1 hour DX Patient Name: CHIKA BOJORQUEZ : 1975; Age: 40 years y/o Female MR: [id number] Study: Fluoroscopy assist to 1 hour DX 08/16/2016 2:14 PM OPTICAL EFFECTS CAMERA OPERATOR Ordering Physician: En Cabello MD Clinical Indication: DOBB STEVE PLACEMENT; TUBE PLACMENT FT: 16 SECS DS: 2.33 mGy Comparison: Dobbhoff tube placement 08/08/2016 FINDINGS AND IMPRESSION: Fluoroscopy was provided for Dobbhoff tube placement. SL: [id number] 08/16/2016 [facility] Paracentesis w ultrasound guide VR Paracentesis with Ultrasound Guidance, 08/16/2016 7:00 AM OPTICAL EFFECTS CAMERA OPERATOR CLINICAL INFORMATION: Pancreatitis; loculated ascites CONSENT: The [...] bottles. The catheter was removed. COMPLICATIONS: None CHILD CARE TEACHER: Dr. Jacome IMPRESSION: Successful ultrasound-guided paracentesis with 1.4 L of cloudy yellow fluid tapped. SL: [id number] 08/16/2016 [facility] Abdomen/Pelvis w IV contrast CT EXAM: CT [...] No bowel obstruction. Advanced generalized osteopenia. SL: [id number] 08/13/2016 [facility] Fluoro guide for Naso/Gastric tube DX Patient Name: CHIKA BOJORQUEZ : 1975; Age: 40 years Female MR: [id number] Study: Fluoro guide for Naso/Gastric tube DX 08/08/2016 1:08 PM OPTICAL EFFECTS CAMERA OPERATOR Clinical Indication: Fluoro Guidance DOSE: 2.2dGy cm2/ TIME: 0.3 mins. COMPARISON: None FINDINGS: Fluoroscopic guidance was provided to the nurse for advancement of the Dobbhoff tube. The Dobbhoff tube tip is in the mid stomach. The stylet was removed. SL: [id number] 08/08/2016 [facility] Fluoro guide for Naso/Gastric tube DX Fluoro [...] fundus and body of the stomach. SL: [id number] 08/07/2016 [facility] Paracentesis w ultrasound guide VR Paracentesis with Ultrasound Guidance, 08/07/2016 10:55 AM OPTICAL EFFECTS CAMERA OPERATOR CLINICAL INFORMATION: Pancreatitis; ascites CONSENT: The procedure, [...] bottles. The catheter was removed. COMPLICATIONS: None CHILD CARE TEACHER: Dr. Jacome IMPRESSION: Successful ultrasound-guided paracentesis with 1 L greenish-yellow fluid tapped. However, the fluid is multiloculated/multiseptated. SL: [id number] 08/07/2016 [facility] Abdomen/Pelvis w IV contrast CT EXAM: CT ABDOMEN AND PELVIS WITH CONTRAST DATE: 08/06/2016 5:33 PM OPTICAL EFFECTS CAMERA OPERATOR INDICATION: Abdominal pain, acute. COMPARISON: 07/27/2016. TECHNIQUE: Helical CT imaging of the abdomen and pelvis performed from lung bases through the lesser trochanters following the administration of intravenous contrast. Axial, sagittal and coronal multiplanar reconstructions provided. IV contrast: [address] Radiation Dose: IGT=013.54 mGy-cm FINDINGS: LOWER CHEST: The lung bases [...] is noted. ADRENALS: Unremarkable KIDNEYS AND URETERS: [id number] left hydronephrosis is visualized, increased from the [...] telephone on 01/04/2017 at 1905 hours. SL: [id number] 08/06/2016 [facility] Abdomen/Pelvis w IV contrast CT Patient Name: CHIKA BOJORQUEZ : 1975; Age: 40 years Female MR: [id number] Study: Abdomen/Pelvis w IV contrast CT 07/27/2016 1:01 PM OPTICAL EFFECTS CAMERA OPERATOR Clinical Indication: Fever. low abdomen pain. DLP: [...] patient's nurse Jessica at 07/28/2016 2:30 PM OPTICAL EFFECTS CAMERA OPERATOR. SL: [id number] 07/27/2016 [facility] Chest 2 views DX EXAM: XR CHEST 2 VIEW DATE: 07/24/2016 3:33 PM OPTICAL EFFECTS CAMERA OPERATOR INDICATION: Dyspnea. COMPARISON: 07/03/2016 TECHNIQUE: PA and [...] subsegmental atelectasis. No acute cardiopulmonary abnormality. SL: [id number] 07/24/2016 [facility] Paracentesis w ultrasound guide VR Paracentesis with [...] used. After administering local anesthesia, a 5 Hungarian catheter was placed into the peritoneal cavity [...] 2000 milliliters of fluid were aspirated. SL: [id number] 07/19/2016 [facility] Abdomen/Pelvis wo IV contrast CT Patient Name: CHIKA BOJORQUEZ : 1975; Age: 40 years y/o Female MR: [id number] * I. COMPUTED TOMOGRAPHY SCAN OF THE [...] region of the caval atrial junction. SL: [id number] 07/18/2016 [facility] Chest 1view DX Patient Name: CHIKA BOJORQUEZ : 1975; Age: 40 years Female MR: [id number] Study: Chest 1view DX Order Time: 07/03/2016 4:20 PM OPTICAL EFFECTS CAMERA OPERATOR Clinical Indication: PICC Line Placement. STAT portable [...] placement as described above without pneumothorax. SL: [id number] 07/03/2016 [facility] Abd Pancreatic Protocol w/wo contrast CT Abd Pancreatic Protocol w/wo contrast CT 06/29/2016 10:37 AM OPTICAL EFFECTS CAMERA OPERATOR Ordering Physician:Brent Zuleta MD CLINICAL HISTORY: Generalized [...] right. 5. Moderate anasarca. SL: [id number] 06/29/2016 [facility] Spine lumbar wo contrast MRI Study: Spine [...] canal stenosis or neural foraminal narrowing. SL: [id number] 06/28/2016 [facility] Spine cervical wo contrast MRI Study: Spine [...] mm diffuse disc bulge at C5-C6. SL: [id number] 06/28/2016 [facility] Abdomen RUQ US Clinical Indication: Abdominal pain, [...] present around the liver. SL: [id number] 06/28/2016 [facility] Ext Lower Venous Doppler Bilat US Patient Name: CHIKA BOJORQUEZ : 1975; Age: 40 years y/o Female MR: [id number] Study: Ext Lower Venous Doppler Bilat US 06/24/2016 1:22 PM OPTICAL EFFECTS CAMERA OPERATOR Clinical Indication: Bilateral leg swelling; Comparison: 08/14/2012 [...] the popliteal vein bilaterally. SL: CSODERSTROM-PC 06/24/2016 [facility] w/wo contrast MRI EXAM: MRI BRAIN WITH AND WITHOUT CONTRAST DATE: 06/22/2016 11:31 PM OPTICAL EFFECTS CAMERA OPERATOR INDICATION: Ataxia. COMPARISON: CT brain dated 06/22/2016. [...] IMPRESSION: Unremarkable MRI of the brain. SL: [id number] 06/23/2016 [facility] wo contrast CT Clinical Indication: Confusion t [...] hemorrhage, or subacute stroke. SL: SROSENBLUM-PC 06/22/2016 [facility] Abdomen w/wo contrast MRI Abdomen w/wo contrast MRI 06/17/2016 4:58 PM OPTICAL EFFECTS CAMERA OPERATOR Ordering Physician: Sadie Gleason MD CLINICAL INDICATION: [...] Probable ovarian/gynecologic neoplasm. Recommend gynecological consultation. SL: [id number] 06/17/2016 [facility] Transvag w Pelvis Doppler US Patient Name: CHIKA BOJORQUEZ : 1975; Age: 40 years y/o Female MR: [id number] TRANSABDOMINAL PELVIC SONOGRAPHY. 2 TRANSVAGINAL PELVIC [...] no evidence of left ovarian torsion. [facility]2016 [facility] Chest/Abdomen/Pelvis w IV contrast CT Patient Name: CHIKA BOJORQUEZ : 1975; Age: 40 years Female MR: [id number] Study: Chest/Abdomen/Pelvis w IV contrast CT 06/15/2016 9:53 PM OPTICAL EFFECTS CAMERA OPERATOR Clinical Indication: Abdominal pain, acute. pt had [...] Zafar Newman MD at 06/16/2016 3:28 AM OPTICAL EFFECTS CAMERA OPERATOR. SL: MONI 06/16/2016 [facility] Consultation Notes No Data Provided for This Section Discharge Summaries No Data Provided for This Section History and Physicals No Data Provided for This Section Vital Signs Vital Sign Value Date Comments Source Systolic (mm Hg) 121 09/02/2018 [facility] Diastolic (mm Hg) 80 09/02/2018 [facility] Respitory Rate 18 09/02/2018 [facility] Heart Rate 92 09/02/2018 [facility] Temperature Oral (F) 98 F 09/02/2018 [facility] Respitory Rate 18 09/02/2018 [facility] Systolic (mm Hg) 121 09/02/2018 [facility] Diastolic (mm Hg) 79 09/02/2018 [facility] Heart Rate 87 09/02/2018 [facility] Temperature Oral (F) 97.9 F 09/02/2018 [facility] Systolic (mm Hg) 116 09/02/2018 [facility] Diastolic (mm Hg) 77 09/02/2018 [facility] Heart Rate 87 09/02/2018 [facility] Respitory Rate 18 09/02/2018 [facility] Temperature Oral (F) 98 F 09/02/2018 [facility] Height 154.9 cm 09/02/2018 [facility] BMI Calculated 22.93 09/02/2018 [facility] Weight 55.008 09/02/2018 [facility] Weight 55.3 09/01/2018 [facility] BMI Calculated 23.04 09/01/2018 [facility] Height 154.94 cm 09/01/2018 [facility] Respitory Rate 23 10/30/2017 [facility] Respitory Rate 24 10/30/2017 [facility] Systolic (mm Hg) 110 10/30/2017 [facility] Diastolic (mm Hg) 71 10/30/2017 [facility] Respitory Rate 24 10/30/2017 [facility] Systolic (mm Hg) 121 10/30/2017 [facility] Diastolic (mm Hg) 53 10/30/2017 [facility] Systolic (mm Hg) 117 10/30/2017 [facility] Diastolic (mm Hg) 87 10/30/2017 [facility] Heart Rate 182 10/30/2017 [facility] Weight 46.364 10/30/2017 [facility] BMI Calculated 19.31 10/30/2017 [facility] Heart Rate 155 10/30/2017 [facility] Height 154.94 cm 10/30/2017 [facility] Temperature Oral (F) 97.9 F 10/30/2017 [facility] Systolic (mm Hg) 128 10/07/2017 [facility] Diastolic (mm Hg) 88 10/07/2017 [facility] Heart Rate 96 10/07/2017 [facility] Temperature Oral (F) 36.67 Keri 10/07/2017 [facility] Respitory Rate 18 10/07/2017 [facility] Height 154.9 cm 10/07/2017 [facility] Weight 49.351 10/07/2017 [facility] Respitory Rate 16 03/20/2017 [facility] Heart Rate 92 03/20/2017 [facility] Systolic (mm Hg) 116 03/20/2017 [facility] Diastolic (mm Hg) 78 03/20/2017 [facility] Temperature Oral (F) 98.0 F 03/20/2017 [facility] Heart Rate 82 03/20/2017 [facility] Temperature Oral (F) 98.0 F 03/20/2017 [facility] Systolic (mm Hg) 108 03/20/2017 [facility] Diastolic (mm Hg) 69 03/20/2017 [facility] Respitory Rate 16 03/20/2017 [facility] Weight 37.756 03/20/2017 [facility] Respitory Rate 16 03/20/2017 [facility] Systolic (mm Hg) 103 03/20/2017 [facility] Diastolic (mm Hg) 65 03/20/2017 [facility] Heart Rate 91 03/20/2017 [facility] Temperature Oral (F) 98.1 F 03/20/2017 [facility] Weight 38.185 03/19/2017 [facility] Weight 37.33 03/17/2017 [facility] Height 154.94 cm 03/10/2017 [facility] BMI Calculated 14.79 03/10/2017 [facility] BMI Calculated 15.15 03/10/2017 [facility] Height 154.94 cm 03/10/2017 [facility] Respitory Rate 20 12/29/2016 [facility] Respitory Rate 17 12/29/2016 [facility] Systolic (mm Hg) 102 12/29/2016 [facility] Diastolic (mm Hg) 63 12/29/2016 [facility] Respitory Rate 19 12/29/2016 [facility] Systolic (mm Hg) 110 12/29/2016 [facility] Diastolic (mm Hg) 58 12/29/2016 [facility] Systolic (mm Hg) 110 12/29/2016 [facility] Diastolic (mm Hg) 62 12/29/2016 [facility] Temperature Oral (F) 98.3 F 12/29/2016 [facility] Temperature Oral (F) 98 F 12/29/2016 [facility] Temperature Oral (F) 98.2 F 12/28/2016 [facility] Height 154.94 cm 12/27/2016 [facility] Height 154.94 cm 12/27/2016 [facility] Weight 44.9 12/27/2016 [facility] BMI Calculated 18.7 12/27/2016 [facility] Weight 44.9 12/27/2016 [facility] Temperature Oral (F) 98.7 F 09/22/2016 [facility] Heart Rate 84 09/22/2016 [facility] Systolic (mm Hg) 107 09/22/2016 [facility] Diastolic (mm Hg) 71 09/22/2016 [facility] Respitory Rate 18 09/22/2016 [facility] Heart Rate 89 09/21/2016 [facility] Systolic (mm Hg) 121 09/21/2016 [facility] Diastolic (mm Hg) 81 09/21/2016 [facility] Respitory Rate 17 09/21/2016 [facility] Temperature Oral (F) 98.7 F 09/21/2016 [facility] Temperature Oral (F) 98.5 F 09/21/2016 [facility] Respitory Rate 19 09/21/2016 [facility] Heart Rate 81 09/21/2016 [facility] Systolic (mm Hg) 115 09/21/2016 [facility] Diastolic (mm Hg) 71 09/21/2016 [facility] Weight 41.818 09/16/2016 [facility] Height 157.48 cm 09/11/2016 [facility] Weight 41.364 09/10/2016 [facility] Height 157.48 cm 09/10/2016 [facility] BMI Calculated 16.68 09/10/2016 [facility] Systolic (mm Hg) 138 09/10/2016 [facility] Diastolic (mm Hg) 86 09/10/2016 [facility] Respitory Rate 18 09/10/2016 [facility] Temperature Oral (F) 97.5 F 09/10/2016 [facility] Heart Rate 103 09/10/2016 [facility] Respitory Rate 18 09/10/2016 [facility] Systolic (mm Hg) 117 09/10/2016 [facility] Diastolic (mm Hg) 75 09/10/2016 [facility] Temperature Oral (F) 97.9 F 09/10/2016 [facility] Heart Rate 99 09/10/2016 [facility] Systolic (mm Hg) 121 09/10/2016 [facility] Diastolic (mm Hg) 85 09/10/2016 [facility] Heart Rate 98 09/10/2016 [facility] Respitory Rate 16 09/10/2016 [facility] Temperature Oral (F) 97 F 09/10/2016 [facility] Weight 50 08/25/2016 [facility] Weight 50 08/24/2016 [facility] BMI Calculated 20.83 08/24/2016 [facility] Height 154.94 cm 08/24/2016 [facility] Respitory Rate 21 08/24/2016 [facility] Systolic (mm Hg) 108 08/23/2016 [facility] Diastolic (mm Hg) 72 08/23/2016 [facility] Respitory Rate 21 08/23/2016 [facility] Systolic (mm Hg) 100 08/23/2016 [facility] Diastolic (mm Hg) 81 08/23/2016 [facility] Respitory Rate 21 08/23/2016 [facility] Temperature Oral (F) 98.2 F 08/23/2016 [facility] Systolic (mm Hg) 124 08/23/2016 [facility] Diastolic (mm Hg) 90 08/23/2016 [facility] Temperature Oral (F) 98.1 F 08/23/2016 [facility] Temperature Oral (F) 100.2 F 08/23/2016 [facility] Weight 50.909 08/21/2016 [facility] Heart Rate 150 08/21/2016 [facility] Heart Rate 147 08/20/2016 [facility] Heart Rate 125 08/20/2016 [facility] Height 154.94 cm 08/18/2016 [facility] BMI Calculated 21.31 08/18/2016 [facility] Weight 51.165 08/18/2016 [facility] Temperature Oral (F) 99.4 F 08/17/2016 [facility] Heart Rate 111 08/17/2016 [facility] Respitory Rate 18 08/17/2016 [facility] Systolic (mm Hg) 114 08/17/2016 [facility] Diastolic (mm Hg) 76 08/17/2016 [facility] Temperature Oral (F) 98.4 F 08/17/2016 [facility] Respitory Rate 19 08/17/2016 [facility] Heart Rate 101 08/17/2016 [facility] Systolic (mm Hg) 117 08/17/2016 [facility] Diastolic (mm Hg) 76 08/17/2016 [facility] Temperature Oral (F) 99.1 F 08/17/2016 [facility] Systolic (mm Hg) 109 08/17/2016 [facility] Diastolic (mm Hg) 76 08/17/2016 [facility] Heart Rate 110 08/17/2016 [facility] Respitory Rate 18 08/17/2016 [facility] Weight 60 07/17/2016 [facility] Weight 143 07/15/2016 [facility] Weight 65 07/14/2016 [facility] Height 154.94 cm 07/05/2016 [facility] BMI Calculated 27.08 07/05/2016 [facility] Systolic (mm Hg) 114 07/05/2016 [facility] Diastolic (mm Hg) 72 07/05/2016 [facility] Respitory Rate 18 07/05/2016 [facility] Heart Rate 92 07/05/2016 [facility] Temperature Oral (F) 98.0 F 07/05/2016 [facility] Respitory Rate 18 07/05/2016 [facility] Temperature Oral (F) 98.2 F 07/05/2016 [facility] Heart Rate 100 07/05/2016 [facility] Systolic (mm Hg) 109 07/05/2016 [facility] Diastolic (mm Hg) 72 07/05/2016 [facility] Systolic (mm Hg) 100 07/05/2016 [facility] Diastolic (mm Hg) 60 07/05/2016 [facility] Respitory Rate 18 07/05/2016 [facility] Heart Rate 73 07/05/2016 [facility] Temperature Oral (F) 98.7 F 07/05/2016 [facility] BMI Calculated 20.62 06/16/2016 [facility] Weight 49.5 06/16/2016 [facility] Height 154.94 cm 06/16/2016 [facility] Weight 51.364 06/16/2016 [facility] BMI Calculated 20.06 06/16/2016 [facility] Height 160.02 cm 06/16/2016 [facility] Encounters Location Location Details Encounter Type Encounter Number Reason For Visit Attending Provider ADM Date DC Date Status Source [facility] Inpatient [id number] Tim Edmonds 06/16/2016 07/05/2016 [facility] Inpatient [id number] Lacho Sofiaherbert 07/05/2016 08/17/2016 [facility] Inpatient [id number] Tim Grey 08/18/2016 08/24/2016 [facility] Inpatient [id number] Tim Grey 08/24/2016 09/10/2016 [facility] Inpatient [id number] Tim Grey 09/10/2016 09/22/2016 [facility] Inpatient [id number] Walter Jim 12/27/2016 12/29/2016 [facility] Inpatient [id number] Darien Queen 03/10/2017 03/20/2017 [facility] Discharged Inpatient [id number] AFSANEH CHAMBERLAIN MD 07/31/2017 08/03/2017 [facility] Registered Surgical Day [facility] [id number] JANETH THOMPSON MD 08/16/2017 [facility] Discharged Inpatient (obs) [id number] AFSANEH CHAMBERLAIN MD 09/01/2017 09/03/2017 [facility]necology [facility] Office Visit [id number] Jarvis Marx MD 09/23/2017 09/23/2017 [facility]ORATORY Hospital Encounter [id number] Jarvis Marx MD 09/23/2017 09/24/2017 [facility] Gynecology Clinic [facility] Orders Only [id number] Lashon Ochoa ResidentMD 09/24/2017 [facility] Ultrasound [facility] Hospital Encounter [id number] 09/24/2017 09/25/2017 [facility] Gynecology Clinic [facility] Orders Only [id number] Lashon Ochoa ResidentMD 09/25/2017 [facility] 4A Med/Surg (4A/M) [facility] Hospital Encounter [id number] Lamar Hinojosa MD 09/27/2017 09/30/2017 [facility] Gynecology Clinic [place] Office Visit [id number] Jarvis Marx MD 10/07/2017 10/07/2017 [facility] Departed Emergency Room [id number] ALEXEI RUSSELL MD 10/18/2017 10/19/2017 [facility] Departed Emergency Room [id number] MERRILL BECKETT MD 10/23/2017 10/24/2017 [facility] Emergency [id number] Susana Nicoleooqi 10/30/2017 10/30/2017 [facility] Urology Clinic Office Visit [id number] 04/08/2018 04/08/2018 [facility] Departed Emergency Room [id number] PATRICIA WINSTON MD 04/20/2018 04/20/2018 [facility] Oncology C Recurring [id number] Nya Mancilla 09/01/2018 10/01/[address] [facility] Outpatient [facility] [id number] Nya Carrizalesgent 09/04/2018 09/05/2018 [facility] [place] Procedures Procedure Code Date Perfomer Comments Source GLUCOSE POC 43093 09/30/2017 [facility] GLUCOSE POC 69298 09/30/2017 [facility] BASIC METABOLIC PANEL 40667 09/30/2017 [facility] CBC/DIFF 76630 09/30/2017 [facility] MRI PANCREAS W/O CONTRAST 91040 09/30/2017 [facility] GLUCOSE POC 27709 09/30/2017 [facility] GLUCOSE POC 94000 09/30/2017 [facility] GLUCOSE POC 44957 09/29/2017 [facility] IRON PROFILE 61380 09/29/2017 [facility] HAPTOGLOBIN 85916 09/29/2017 [facility] FOLIC ACID 47130 09/29/2017 [facility] LDH 37405 09/29/2017 [facility] RETIC COUNT [id number] 09/29/2017 [facility] VITAMIN B12 50463 09/29/2017 [facility] FERRITIN 67979 09/29/2017 [facility] CBC/DIFF 89193 09/29/2017 [facility] PATHOLOGIST REVIEW 06466 09/29/2017 [facility] GLUCOSE POC 21919 09/29/2017 [facility] CBC/DIFF 86536 09/29/2017 [facility] 39564 09/29[facility]2017 [facility] GLUCO[facility] 33211 09/29/2017 [facility] VANCOMYCIN, TROUGH 84868 09/29/2017 [facility] GLUCOSE POC 50484 09/29/2017 [facility] GLUCOSE POC 31996 09/28/2017 [facility] GLUCOSE POC 04759 09/28/2017 [facility] CBC/DIFF 17642 09/28/2017 [facility] BASIC METABOLIC PANEL 67494 09/28/2017 [facility] LIVER PROFILE 57051 09/28/2017 [facility] PHOSPHORUS 75358 09/28/2017 [facility] MAGNESIUM 04972 09/28/2017 [facility] GLUCOSE POC 85265 09/28/2017 [facility] GLUCOSE POC 54369 09/28/2017 [facility] VANCOMYCIN, TROUGH 34375 09/28/2017 [facility] VANCOMYCIN, TROUGH 87877 09/28/2017 [facility] THYROID STIM IMMUN 82247 09/28/2017 [facility] [place] ([place]) [place] 47712 09/28/2017 [facility] TOTAL T3 94030 09/28/2017 [facility] GLUCOSE POC 41658 09/28/2017 [facility] U/S THYROID/NECK 29129 09/28/2017 [facility] GLUCOSE POC 02035 09/28/2017 [facility] U/S ABDOMEN 98115 09/28/2017 [facility] URINE DRUG SCREEN 87974 09/27/2017 [facility] INFUSION PUMP [id number] 09/27/2017 [facility] CBC/DIFF 34882 09/27/2017 [facility] COMPREHENSIVE METABOLIC PANEL(DBIL NOT INCLUDED) 12498 09/27/2017 [facility] PT/INR/PTT 23049 09/27/2017 [facility] HEPATITIS PANEL 36912 09/27/2017 [facility] BEDSIDE ULTRASOUND 525484 09/27/2017 [facility] VBG POC 68100 09/27/2017 [facility] XRAY CHEST 1 VIEW 09034 09/27/2017 [facility] BMP POC 38933 09/27/2017 [facility] VBG POC 04657 09/27/2017 [facility] BLOOD CULTURE 66508 09/27/2017 [facility] URINE CULTURE 55259 09/27/2017 [facility] CBC/DIFF 74441 09/27/2017 [facility] UA CHEMISTRIES 28045 09/27/2017 [facility] TSH [id number] 09/27/2017 [facility] FREE T4 41971 09/27/2017 [facility] 12 LEAD EKG 93030 09/27/2017 [facility] U/S TRANSVAGINAL 97247 09/25/2017 [facility] U/S PELVIS NON-OB 07474 09/25/2017 [facility] URINE CULTURE 43913 09/24/2017 [facility] UA CHEMISTRIES 50105 09/24/2017 [facility] TSH 21060 09/24/2017 [facility] FREE T4 47587 09/24/2017 [facility] HEMOGLOBIN A1C 72389 09/24/2017 [facility] HIV-1/HIV-2 DIAGNOSTIC/SYMPTOMATIC 51340 09/24/2017 [facility] SYPHILIS SCREEN FOR INFECTION 70761 09/24/2017 [facility] CHLAM/GC DNA AMPLI 42514 09/24/2017 [facility] HPV HIGH-RISK 86755 09/24/2017 [facility] CLARISSA STAIN 65708 09/24/2017 [facility] WET MOUNT 32867 09/24/2017 [facility] CYTOLOGY PATHOLOGY 23165 09/24/[address] [facility] [address] of abdomen and pelvis without contrast [id number] 08/31/2017 [facility] CYSTOSCOPY AND TREATMENT 50795 08/16/2017 [facility] Computed tomography of abdomen and pelvis with contrast [id number] 07/31/2017 [facility] Image-guided fluid collection drainage by catheter (eg, abscess, hematoma, seroma, lymphocele, cyst); peritoneal or retroperitoneal, percutaneous 09528 08/27/2016 [facility] Cholecystectomy [id number] 07/29/2016 [facility] Cholecystectomy [id number] 07/29/2016 [facility] Cholecystectomy [id number] 07/29/2016 AAKASH Crow Tubal ligation [id number] [facility] Tubal ligation [id number] [facility] Tubal ligation [id number] [facility] Tubal ligation [id number] AAKASH Crow Assessment and Plan Assessment and [...] MD Date: 03/20/17 Progress Note - Daily [facility] Completed: Saturday, MAR 20, 2017, 12:38 by Nya Mancilla MD RM: 426 - 1P, SE C4B CHIKA BOJORQUEZ 41y (: 1975) F Attending: Darien Queen MD Service: Internal Medicine Reason for Admission: ABDOMINAL PAIN, SINUS TACHYCARDIA Working DRG: Septicemia or severe sepsis w/o MV 96+ hours w [facility] Code status: None Specified=FULL CODE Current diet: [...] Meds (7): 03/10/17 enoxaparin 40 mg SUB-Q [id number] 03/11/17 insulin aspart 3 unit SUB-Q TID-Before [...] Syringe) 25 gm IVP PRN 03/10/17 acetaminophen-hydrocodone (Douglas 5/325 oral tablet) 1 tab PO Q6H 03/10/17 acetaminophen-hydrocodone (Douglas 10/325 oral tablet) 1 tab PO Q6H [...] weeks. Nya Mancilla MD Gynecologic Oncology Staff [phone] Extracted from:Title: Progress Note * Author: Alyssa [...] 05/23 when she was admitted to [facility] with failure to thrive symptoms and was [...] previously placed Axios stent. In 10/2016, at [facility], the pancreatic duct stent was [...] 6-10. enoxaparin: 40 mg, 0.4 mL, SUB-Q, [id number]. esmolol-NS 2,500 mg: Titrate, IV, Stop: 04/08/17 [...] 09) Total CK 53 (MAR 09) 03/20/2017 [facility] Extracted from:Title: LAMP SHADE MAKER ONC Reconsultation Author: Nya Mancilla MD Date: 12/27/16 Endocrine Consult Note: Patient Room: [address] CHIKA BOJORQUEZ 41y (: 1975) F [...] is out of control as a result. LAMP SHADE MAKER History Menarche/Menopause: 12/ongoing Hormonal exposure with OCPs: [...] stools. : Denies dysuria, hesitancy, frequency, hematuria LAMP SHADE MAKER: Patient +vaginal bleeding. -change in vaginal discharge, [...] Mucus Few UA Sq Epi Occasional UA Vista Yeast Moderate UA Hyph Yeast Occasional ASSESSMENT [...] time. Nya Mancilla MD Gynecologic Oncology Staff [phone] Extracted from:Title: Clinical Document Author: Micheal Reynolds [...] and replacement on two occasions, presents to [facility] in [place] with c/o several days of dysuria, chills [...] insulin 2/2 N/V. She requested transfer to [facility] for further care. Urology consultation was obtained with Dr. Monteiro via phone and pt was transferred to the IMCU at [facility]. She currently denies fever but [...] pt NPO for now. 4. Will ask JUVENILE CORRECTIONAL OFFICER to evaluate. Pt has been seen by [...] pt, and she does not have an rigging helper. Will place on methimazole 20mg PO q8 [...] stent on 08/06/16 (Dr Ezequiel Vaughn @ [facility]) ; ERCP w CBD stone removal and failed deep PD cannulation on 08/24/16 (Dr Olga Vaughn @ [facility]) ; IR drain for infrapancreatic pseudocyst; repeat ERCP with deep cannulation, PD plastic stent, clearence of CBD and removal of Axios metal stent on 09/12/16 (Dr Gleason @[facility]) -Repeat CT scan; labs looked much better; NJ removed and he is tolerated low fat diet. -IR drain flush at home w recording. -Repeat ERCP w PD stent exchange in 6-8 weeks. -Creon TID for pain and diarrhea. 2. Adnexal masses -Ob Onc consultation with [place] dept noted; outpatient f/u recommended. 3. Thyrotoxicosis [...] drain in place. Ext : no edema GUIDE EXCURSION: No gross motor/sensory defects Vitals Tmp(F) Tmp(C) [...] 09/21/16 Pain Intensity NRS (0-10) 8 09/21/16 Jaroso Coma Score 15 09/20/16 [facility] Fall Score 6 09/20/16 Ruslan Score 19 Lines, Tubes, and Drains: 09/13/2016 17:00 Surgical Drains: Jeremías Lainez Drain 16 fr abdominal fluid drain Right 09/13/2016 11:00 Gastric Tubes: Nasoduodenal Nostril, right 09/13/2016 08:40 Gastric Tubes: Nasogastric Nostril, right 09/10/2016 20:30 Central Lines: Basilic vein, left PICC Triple Surgical Procedures: 09/13/16 12:07 CYSTOSCOPY / RETROGRADE / STENT EXCHANGE, LEFT [id number] Primary Surgeon: Cristóbal Mars MD (Service: URO) 09/12/16 08:56 ERCP / MAC [id number] Primary Surgeon: Sadie Gleason MD (Service: END) [...] PO Daily [Last Rescheduled Dt/Tm: 09/21/16 9:00:00 OPTICAL EFFECTS CAMERA OPERATOR] [eMAR Schedule: (09/21/16) 09:00] [Future Dose: 09/22/16 09:00] enoxaparin 40 mg SUB-Q Daily [Last Rescheduled Dt/Tm: 09/10/16 21:00:00 OPTICAL EFFECTS CAMERA OPERATOR] [eMAR Schedule: (09/21/16) 21:00] [Future Dose: 09/22/16 21:00] methimazole 10 mg PO Q8H [eMAR Schedule: (09/21/16) 00:00, 08:00, 16:00; (09/22/16) 00:00] pancrelipase (Creon 24,000 units oral delayed release capsule) 1 cap PO TID- Before Meals [Last Rescheduled Dt/Tm: 09/21/16 7:30:00 OPTICAL EFFECTS CAMERA OPERATOR] [eMAR Schedule: (09/21/16) 07:30, 11:30, 16:30; (09/22/16) 07:30] pantoprazole 40 mg PO Before Dinner [eMAR Schedule: (09/21/16) 16:30] [Future Dose: 09/22/16 16:30] propranolol 20 mg PO TID [Last Rescheduled Dt/Tm: 09/11/16 9:00:00 OPTICAL EFFECTS CAMERA OPERATOR] [eMAR Schedule: (09/21/16) 09:00, 13:00, 17:00] Unscheduled [...] 2 tab, PO, TID Documented Medications Suspended Douglas 5/325 oral tablet: 1 tab, PO, Q6H, PRN: Pain Score 1-3, 0 Refill(s) enoxaparin: 40 mg, 0.4 mL, SUB-Q, [id number], 0 Refill(s) insulin isophane (NPH) 100 units/mL [...] list: All Problems Hypomagnesemia / SNOMED CT 199110388 / Confirmed MRSA / SNOMED CT 429666262 / Confirmed Problem added by Discern Expert. Cyst fluid, 08/06/2016 Severe malnutrition / SNOMED CT 28856483 / Confirmed, Active Problems (3) Hypomagnesemia MRSA Severe malnutrition Histories Past Medical History: Active Severe malnutrition (63155912): Onset on 08/27/2016 at 40 years. Resolved Goiter (240.9): Resolved. Heartburn (787.1): Resolved. Gallbladder disease (498180660): Resolved. Diabetes (955091109): Resolved. Hypophosphatemia (5558154): Resolved on 08/31/2016 at 40 years. Family History: Asthma Father Comments: 08/14/2012 20:08 - Merrill Santos RN as a child Type 2 diabetes mellitus Mother Procedure history: Cholecystectomy (97515383) on 07/29/2016 at 40 Years. Tubal ligation (343918663). Social History Social and Psychosocial Habits Alcohol [...] angle tenderness. Musculoskeletal No clubbing/cyanosis/edema Integumentary: Warm, [place]. Neurologic: Alert, Oriented. Cognition and Speech: Oriented, [...] above plan. Cristóbal Mars MD [facility] Office: [phone] 09/22/2016 [facility] Extracted from:Title: Hospitalist Progress Note Author: Bree Vences MD Date: 09/10/16 Assessment/Plan 1. Cholangitis -Patient completed 10 day course of IV antimicrobials. -Patient has abdominaldrain in place with persistent drainage - flushing drain [id number] 2.Acute pancreatitis: Post ERCP in patientwith choledocholithiasis [...] Disposition transfert back to [facility] 09/10/2016 [facility] Extracted from:Title: Clinical Document Author: Sadie Gleason MD Date: 08/23/16 Progress Note Gastroenterology and Hepatology ASSESSMENT /PLAN: This is a 40-year-old female with recent history of thyroid toxicosis, pelvic masses, acute severe pancreatitis complicated by symptomatic pseudocyst and severe malnutrition. 1. Acute over chronic pancreatitis w infeceted pseudocyst; s/p Axios stent at [facility] facility on 08/06/16 - Given multilocalated abdominial [...] 2. Adnexal masses -Ob Onc consultation with [place] dept noted; outpatient f/u recommended. 3. Thyrotoxicosis [...] multidiscplinary team back up; recommend transfer to [facility] - D/w Dr Shine who has agreed [...] , BS + Ext : no edema GUIDE EXCURSION: No gross motor/sensory defects Vitals Tmp(F) Tmp(C) [...] AND DOLOHOFF PLACEMENT/TO FOLLOW START TIME REQUESTED [id number] Primary Surgeon: Sadie Gleason MD (Service: END) [...] 0.9% INJ 100 mL 1 gm IVPB [id number] 200 ml/hr [Last Rescheduled Dt/Tm: 08/18/16 4:00:00 OPTICAL EFFECTS CAMERA OPERATOR] [eMAR Schedule: (08/23/16) 04:00, 16:00; (08/24/16) 04:00] enoxaparin (Lovenox) 40 mg SUB-Q [id number] [eMAR Schedule: (08/23/16) 22:00] [Future Dose: 08/24/16 22:00] methimazole 10 mg PO Q8H [eMAR Schedule: (08/23/16) 00:00, 08:00, 16:00; (08/24/16) 00:00] pantoprazole (Protonix) 40 mg IVP Before Dinner [Last Rescheduled Dt/Tm: 08/17/16 22:00:00 OPTICAL EFFECTS CAMERA OPERATOR] [eMAR Schedule: (08/23/16) 16:30] [Future Dose: 08/24/16 16:30] propranolol 20 mg PO TID [Last Rescheduled Dt/Tm: 08/22/16 16:00:00 OPTICAL EFFECTS CAMERA OPERATOR] [eMAR Schedule: (08/23/16) 00:00, 08:00, 16:00; (08/24/16) 00:00] vancomycin + sodium chloride 0.9% 250 mL INJ (for IV set) 250 mL 1,250 mg IVPB [id number] 250 ml/hr [Last Rescheduled Dt/Tm: 08/21/16 18:00:00 OPTICAL EFFECTS CAMERA OPERATOR] [eMAR Schedule: (08/23/16) 02:00, 10:00, 18:00; (08/24/16) 02:00] Unscheduled Meds: None PRN Meds (13): Dextrose 50% in Water IV (Dextrose 50% Syringe) 12.5 gm IVP PRN Dextrose 50% in Water IV (Dextrose 50% Syringe) 25 gm IVP PRN acetaminophen-hydrocodone (Douglas 5/325 oral tablet) 1 tab PO Q6H [...] Voluntary Type of Urinary Elimination: Incontinent 08/24/2016 [facility] Extracted from:Title: Discharge Summary * Author: Shawanda Yuna NURSE SANE Date: 08/17/16 Patient: CHIKA BOJORQUEZ Age: 40 years Sex: Female : 1975 Associated Diagnoses: None Author: Shawanda Yuan NP Attending Physician: Amada Dawson Date of admission: 07/05/2016 Date of discharge to [facility]: 08/17/2016 Discharge diagnosis: 1. Acute pancreatitis [...] diabetes mellitus, who was initially admitted at [facility] for thyroid storm as well as acute [...] addressed completely. Patient was transferred back to [facility] as she is clinically not improving as the pelvic fluid collections around the pelvic mass recurs even draining after multiple times and will require a gynecology and oncology evaluation. Addendum by Amada López MD on 08/18/2016 13:44 PT SEEN and examined, agree with above recommendations. transfer to [facility] , team accepted patient there for [...] seen and examined by me with the resident/NURSE SANE/PA and I agree with the History/Exam documented. 07/05/2016 [facility] Plan of Care Plan of Care Date Source DM Microalbumin Urine Scrn (Yearly) 09/26/2018 [facility] DM HGBA1C (Yearly) 09/23/2018 [facility] IMM Influenza Seasonal Apr to September (>/=19 yrs) 04/28/2018 [facility] Discharge Date 04/20/18 3:16pm Disposition HOME, SELF-CARE Condition at Discharge Stable Instructions/Education Provided Back Pain Urinary Tract Infection - Women Forms Provided Work/School Excuse Prescriptions See Medication Section Referrals PHILLIP XAVIER MD Address: [address] [place] [address] JANETH THOMPSON MD Order Date: Call for an appointment Address: [address] [place] [address] Additional Instructions/Education CLINICAL IMPRESSION Urinary tract infection. DISCHARGE INSTRUCTIONS Prescription Medications: Macrobid 100 mg: take 1 capsule orally every 12 hours for 7 days. No refill. Substitution is permissible. 04/20/2018 [facility] Breast Cancer Scrn (Yearly) 2014 [facility] Cervical Cancer Scrn (3 Yrs) 10/27/1995 [facility] DM Foot Exam (Yearly) 1992 [facility] Social History Social History Date Source Social [...] 09/01/2017 4:59am Not Applicable Not Applicable 04/20/2018 [facility] Tobacco UseTypesPacks/DayYears UsedDate Never Assessed Sex Assigned at BirthDate Recorded Not on file Job Start DateOccupationIndustry Not on file Not on file Not on file Travel HistoryTravel StartTravel End No recent travel history available. 09/29/2017 [facility] Social History TypeResponse Substance Abuse Use: None. Sexual Sexually active: Yes. Alcohol Never Smoking Status Former smoker; Type: Cigarettes; Ready to change: No; Concerns about tobacco use in household: No; Exposure to Tobacco Smoke None; Cigarette Smoking Last 365 Days No; Reg Smoking Cessation Counseling No; Other Tobacco Frequency 07/05/2014 Quit; entered on: 03/10/17 07/06/2016 [facility] Social History TypeResponse Substance Abuse Use: None. Sexual Sexually active: Yes. Alcohol Never Smoking Status Former smoker; Type: Cigarettes; Ready to change: No; Concerns about tobacco use in household: No; Exposure to Tobacco Smoke None; Cigarette Smoking Last 365 Days No; Reg Smoking Cessation Counseling No; Other Tobacco Frequency 07/05/2014 Quit; entered on: 03/10/17 07/06/2016 [facility] Social History TypeResponse Substance Abuse Use: None. Sexual Sexually active: Yes. Alcohol Never Smoking Status Former smoker; Ready to change: No; Concerns about tobacco use in household: No; Exposure to Tobacco Smoke None; Cigarette Smoking Last 365 Days No; Reg Smoking Cessation Counseling No 07/06/2016 [facility] Social History TypeResponse Substance Abuse Use: None. Sexual Sexually active: Yes. Alcohol Never Smoking Status Former smoker; Type: Cigarettes; Ready to change: No; Concerns about tobacco use in household: No; Exposure to Tobacco Smoke None; Cigarette Smoking Last 365 Days No; Reg Smoking Cessation Counseling No; Other Tobacco Frequency 07/05/2014 Quit; entered on: 03/10/17 07/06/2016 [facility] Family History Value Date Source Medical HistoryRelationNameComments Diabetes type II Mother Heart disease Other RelationNameStatusComments Mother Other 09/17/2018 [facility] Advance Directives Order Name Results Value Date Source Advance Directives Advance Directives For more information, please contact:[address] [id number] Code Status on FileCode StatusDate ActivatedDate InactivatedComments Full Code 09/27/2017 9:00 AM 09/30/2017 5:20 PM 09/17/2018 [facility] Advance Directives Advance Directives Directive Response Recorded Date/Time Does the patient have an advance directive? No 09/01/17 4:59am If yes, is advance directive on file with [facility]? No 10/23/17 10:48pm If not on file with [facility] will patient provide a copy? Yes 10/23/17 10:48pm Do you have a Directive to Physician? No 04/20/18 11:10am Do you have a Medical Power of Airline Flight Attendant? No 04/20/18 11:10am Do you have an [...] rights and responsibilities? Yes 04/20/18 11:10am 04/20/2018 [facility] Functional Status No Data Provided for This Section
[2019-02-11 18:59] LABS: BASOPHILS % 0.1 % (0.0-1.0); EOSINOPHILS % 0.1 % (0.0-6.0); HEMOGLOBIN 7.7 g/dL (12.0-16.0); LYMPHOCYTES # (AUTO) 0.3 (1.0-3.2); LYMPHOCYTES % 2.2 % (18.0-39.1); MEAN CORPUSCULAR HEMOGLOBIN 21.8 pg (28-32); MEAN CORPUSCULAR HGB CONC 30.8 g/dL (31-35); MEAN CORPUSCULAR VOLUME 70.8 fL (81-99); MONOCYTES # (AUTO) 0.8 (0.2-0.8); MONOCYTES % 6.4 % (4.4-11.3); NEUTROPHILS # (AUTO) 10.9 (2.1-6.9); NEUTROPHILS % 90.6 % (38.7-80.0); PLATELET COUNT 271 x10e3/uL (140-360); RED BLOOD COUNT 3.53 x10e6/uL (3.6-5.1); RED CELL DISTRIBUTION WIDTH 17.8 % (11.7-14.4)
[2019-02-11 19:06] LABS: BACTERIA,URINE MANY /HPF; EPITHELIAL CELLS,URINE FEW /LPF
[2019-02-11 19:18] LABS: ALANINE AMINOTRANSFERASE 9 IU/L (0-55); ALBUMIN 3.5 g/dL (3.5-5.0); ALBUMIN/GLOBULIN RATIO 0.6 (0.8-2.0); ALKALINE PHOSPHATASE 177 IU/L (40-150); ANION GAP 18.1 mmol/L (8-16); BLOOD UREA NITROGEN 10 mg/dL (7-26); BUN/CREATININE RATIO 13 (6-25); CALCIUM 9.2 mg/dL (8.4-10.2); CARBON DIOXIDE 19 mmol/L (22-29); CHLORIDE 97 mmol/L (98-107); CREATINE KINASE 35 IU/L (29-168); CREATININE, SERUM 0.79 mg/dL (0.57-1.11); EST GLOMERULAR FILTRATION RATE > 60 ML/MIN (60-); LIPASE 21 U/L (8-78); MAGNESIUM 1.6 MG/DL (1.3-2.1); POTASSIUM 3.1 mmol/L (3.5-5.1); SODIUM 131 mmol/L (136-145)
[2019-02-11 19:26] LABS: GLUCOSE 411 mg/dL (74-118)
[2019-02-11] MEDS ORDERED: INSULIN REGULAR, HUMAN 100 UNIT/1 ML 3ML VIAL SQ ONE ×2 (19:30→19:45)
[2019-02-11] MEDS ORDERED: INSULIN REGULAR, HUMAN 100 UNIT/1 ML 3ML VIAL IV ONE ×2 (19:30→19:45)
[2019-02-11 19:37] LABS: THYROID STIMULATING HORMONE 0.004 uIU/mL (0.350-4.940)
[2019-02-11] MEDS ORDERED: ACETAMINOPHEN 325 MG TAB PO ONE (19:37)
[2019-02-11] MEDS ORDERED: ACETAMINOPHEN 1000 MG/100 ML IV STA (19:44)
[2019-02-11] MEDS ORDERED: SODIUM CHLORIDE 0.9% 250ML 250 ML IV ONE (19:45)
[2019-02-11] MEDS ORDERED: FAMOTIDINE 20 MG/2 ML VIAL IV ONE (19:45)
[2019-02-11] MEDS ORDERED: DIPHENHYDRAMINE HCL INJ 50 MG/ML VIAL IV ONE (19:45)
[2019-02-11] MEDS ORDERED: POTASSIUM CHLORIDE 20MEQ/100ML 100 ML IV ONE (19:45)
[2019-02-11] MEDS ORDERED: ACETAMINOPHEN 1000 MG/100 ML 100 ML IV ONE ×2 (19:49→20:00)
[2019-02-11] MEDS: FAMOTIDINE 20 MG/2 ML VIAL IV SCH (20:00)
--- NOTE | 2019-02-11 20:27 | NUR ---
GROUNDMAN/LINEMAN CALLED TO REPORT LACTIC ACID 23. SPOKE TO LESLIE.
[2019-02-11] MEDS ORDERED: SODIUM CHLORIDE 0.9% 500ML 500 ML ONE (20:41)
[2019-02-11] MEDS ORDERED: LIDOCAINE HCL 2% LOCAL 20 ML VIAL ONE ×2 (20:41→20:57)
[2019-02-11] MEDS ORDERED: FENTANYL CITRATE/PF 100MCG/2 ML INJ ONE (20:46)
[2019-02-11] MEDS ORDERED: MIDAZOLAM HCL 2 MG/2 ML VIAL ONE (20:46)
[2019-02-11] MEDS ORDERED: SODIUM CHLORIDE 0.9% 1000ML 1,000 ML ONE (20:46)
[2019-02-11] MEDS ORDERED: INSULIN REGULAR, HUMAN 100 UNIT/1 ML 3ML VIAL SQ SCH (21:00)
[2019-02-11] MEDS: INSULIN REGULAR, HUMAN 100 UNIT/1 ML 3ML VIAL SQ SCH (21:00)
--- NOTE | 2019-02-11 21:55 | NUR ---
Report provided to Miranda SUAZO, review of procedural findings and medications given. Patient drowsy, easily aroused. maintains airway and room air saturations of 98-99%. No gross issues of pressure, pain, pallor or dysrhythmia. IV site patent with NS 0.9% at KVO by gravity. patient hemodynamically stable with left flank percutaneous nephrostomy tube in place and draining. specimen sent to lab. patient transferred to [facility] under own strength w/o incident. transported to [facility] procedure: Left percutaneous nephrostomy tube placement Meds Given Intra-Procedure Sedatives Versed - 1 mg Fentanyl - 50 mcg Fluids Input - 200ml Output - dtv Contrast Isovue 370 - 10ml Addendum: 02/11/19 at 2220 by Andrew Conley RN tobramycin 40mg given IVPB prepared by pharmacy during procedure, dr auguste aware
[2019-02-11 22:10] VITALS: BP 122/76
[2019-02-11] MEDS: MORPHINE SULFATE INJ 4 MG/ML INJ 1ML IV PRN (23:21)
[2019-02-11 23:27] LABS: INR 1.18; PARTIAL THROMBOPLASTIN TIME 27.7 seconds (23.8-35.5); PROTHROMBIN TIME 15.6 seconds (11.9-14.5)
[2019-02-12] VITALS (9 sets, daily range): BP systolic 110–143; BP diastolic 69–86
--- NOTE | 2019-02-12 00:16 | NUR ---
PAGED DR HINKLE TO NOTIFY PT RUNNING SINUS TACH 130'S.AWAITING CALL BACK AT THIS TIME.
--- NOTE | 2019-02-12 00:39 | NUR ---
DR HINKLE CALLED BACK NOTIFIED THAT PT IS RUNNING SINUS TACH AT 130'S -140'S.DR HINKLE STATED "THATS OK" AND HUNG UP THE CALL.NO NEW ORDERS RECEIVED.
[2019-02-12] MEDS ORDERED: ACETAMINOPHEN 325 MG TAB PO ONE (01:00)
[2019-02-12] MEDS ORDERED: FAMOTIDINE 20 MG/2 ML VIAL IV ONE (01:00)
[2019-02-12] MEDS: AZTREONAM 1 GM/NS 50 ML 50 ML IV SCH ×3 (01:00→18:05)
[2019-02-12] MEDS ORDERED: DIPHENHYDRAMINE HCL INJ 50 MG/ML VIAL IV ONE (01:00)
[2019-02-12] MEDS: SODIUM CHLORIDE 0.9% 1000ML 1,000 ML IV SCH ×3 (01:43→17:43)
[2019-02-12] MEDS ORDERED: SODIUM CHLORIDE 0.9% 250ML 250 ML ONE (01:46)
--- NOTE | 2019-02-12 02:15 | NUR ---
CONSENT AND ORDER FOR BLOOD TRANSFUSION VERIFIED.BEDSIDE VERIFICATION DONE WITH RACHEL SUAZO.FIRST UNIT OF BLOOD STARTED,STAYED WITH THE PT FOR 15 MINUTES.NO S/S OF ADVERSE REACTION NOTED/REPORTED AT THIS TIME.WILL CONTINUE TO MONITOR CLOSELY.
[2019-02-12] MEDS: MORPHINE SULFATE INJ 4 MG/ML INJ 1ML IV PRN ×4 (05:28→20:13)
[2019-02-12 06:19] LABS: BASOPHILS % 0.2 % (0.0-1.0); EOSINOPHILS # (AUTO) 0.1 (0.0-0.4); EOSINOPHILS % 0.4 % (0.0-6.0); HEMATOCRIT 28.3 % (34.2-44.1); HEMOGLOBIN 8.6 g/dL (12.0-16.0); LYMPHOCYTES # (AUTO) 0.3 (1.0-3.2); MEAN CORPUSCULAR HEMOGLOBIN 23.2 pg (28-32); MEAN CORPUSCULAR HGB CONC 30.4 g/dL (31-35); MEAN CORPUSCULAR VOLUME 76.3 fL (81-99); MONOCYTES # (AUTO) 0.2 (0.2-0.8); MONOCYTES % 1.4 % (4.4-11.3); NEUTROPHILS # (AUTO) 14.1 (2.1-6.9); NEUTROPHILS % 95.5 % (38.7-80.0); PLATELET COUNT 290 x10e3/uL (140-360); RED BLOOD COUNT 3.71 x10e6/uL (3.6-5.1); RED CELL DISTRIBUTION WIDTH 19.7 % (11.7-14.4)
[2019-02-12 06:44] LABS: ALANINE AMINOTRANSFERASE 8 IU/L (0-55); ALBUMIN/GLOBULIN RATIO 0.6 (0.8-2.0); ALKALINE PHOSPHATASE 140 IU/L (40-150); ANION GAP 18.5 mmol/L (8-16); BLOOD UREA NITROGEN 9 mg/dL (7-26); BUN/CREATININE RATIO 13 (6-25); CALCIUM 8.4 mg/dL (8.4-10.2); CARBON DIOXIDE 18 mmol/L (22-29); CHLORIDE 102 mmol/L (98-107); CREATININE, SERUM 0.71 mg/dL (0.57-1.11); EST GLOMERULAR FILTRATION RATE > 60 ML/MIN (60-); GLUCOSE 250 mg/dL (74-118); POTASSIUM 3.5 mmol/L (3.5-5.1); SODIUM 135 mmol/L (136-145)
--- NOTE | 2019-02-12 07:14 | NUR ---
PAGED DR HINKLE AT THIS TIME TO NOTIFY PT C/O NAUSEA AND TO NOTIFY ABOUT PT HEART RATE.
[2019-02-12] MEDS: FAMOTIDINE 20 MG/2 ML VIAL IV SCH ×2 (08:54→17:16)
[2019-02-12] MEDS: INSULIN REGULAR, HUMAN 100 UNIT/1 ML 3ML VIAL SQ SCH ×4 (08:55→20:55)
[2019-02-12] MEDS ORDERED: ACETAMINOPHEN 325 MG SUPP PR PRN (09:15)
[2019-02-12] MEDS: ONDANSETRON HCL INJ 2MG/ML 2ML 2 MG/ML VIAL IV PRN ×3 (09:22→20:11)
--- NOTE | 2019-02-12 09:22 | NUR ---
spoke with md campbell regarding tele calling stating hr has been elevated in the 150-160 no orders received at this time. ordered to cancel 2nd bag of prbc for stable cbc of this morning
[2019-02-12 09:48] LABS: BAND NEUTROPHILS % (MANUAL) 4 %; LYMPHOCYTES % (MANUAL) 3 % (19-48); MONOCYTES % (MANUAL) 1 % (3.4-9.0); NEUTROPHILS % (MANUAL) 92 % (40-74)
[2019-02-12 09:52] LABS: MICROCYTOSIS SLIGHT
[2019-02-12 09:53] LABS: HYPOCHROMASIA SLIGHT
[2019-02-12 09:55] LABS: PLATELET ESTIMATE ADEQUATE
[2019-02-12 09:57] LABS: PLATELET MORPHOLOGY COMMENT MODERATE GIANT
[2019-02-12] MEDS: ACETAMINOPHEN 325 MG TAB PO PRN ×2 (10:14→20:52)
[2019-02-12 11:12] LABS: FERRITIN 25.24 ng/mL (4.63-204.00)
--- NOTE | 2019-02-12 15:07 | History and Physical ---
CHIEF COMPLAINT: Pain to the left flank. HISTORY OF PRESENT ILLNESS: A 43-year-old female patient seen in the ER yesterday and follows with Dr. Wiley, had a ureteral stent, did not follow up for removal. She came with complaint of increasing pain to the left flank. The patient had left indwelling ureteral stent and left hydronephrosis. She was seen by Dr. Pringle in the past, underwent cystoscopy with a staged stent removal on left side and cystoscopy with insertion of left indwelling ureteral stent on May 02, 2018. The patient was seen in the ER. She had a CT of the abdomen and pelvis, which showed left ureteral stent with the proximal tip coiled in the left proximal ureter and distal tip coiled in the lumen of the urinary bladder, there is no foci of air along the course of the catheter within the lumen of urinary bladder, new left perinephric fat stranding, left hydronephrosis is slightly worse. The patient had a nephrostomy. Her labs revealed white count of 12,000, hemoglobin 7.5, lactic acid 23, BUN of 9, creatinine 0.7. The patient admitted for sepsis. Urinalysis had wbc 11-20. PAST MEDICAL HISTORY: Hypertension, diabetes, hyperlipidemia, hypothyroidism, pancreatitis, left kidney obstruction. ALLERGIES: TO PENICILLIN. PERSONAL HISTORY: History of smoking in the past. PHYSICAL EXAMINATION: VITAL SIGNS: Temperature 100.6, heart rate of 134, respiratory rate of 20. HEENT: Normal. NECK: No JVD. LUNGS: Bilaterally normal. CVS: Normal. ABDOMEN: Soft. Tenderness to the left flank. EXTREMITIES: Lower extremities, no edema. AUTOMATIC OUTSOLE CUTTER: Normal. ASSESSMENT: Left flank pain from obstructive uropathy, pyelonephritis, hydronephrosis; tachycardia from infection; fever. PLAN: Keep on IV fluids, antibiotics. Urology consultation. MD TIERRA Sage/SASKIA /[id number]
--- NOTE | 2019-02-12 15:27 | NUR ---
Nutrition Screen Note RD Recommendation for Physician: -Continue ADA diet as ordered Plan of Care: RD following, monitoring for tolerance and adequacy Nutrition reason for involvement: Nutrition Risk Trigger MST Primary Diagnose(s): Left flank pain from obstructive uropathy, pyelonephritis, hydronephrosis, tachycardia from infection, fever PMH: Hypertension, diabetes, hyperlipidemia, hypothyroidism, pancreatitis, left kidney obstruction. Ht: 61in Wt: 112.31lb BMI: 21.2kg/m2 IBW: 105lb +/- 10% RD Assessment: (02/12) Chart reviewed. Labs and meds reviewed. 43yo F, who was admitted for sepsis due to pyelonephritis. Visited pt in the room. Pt reported fair appetite. No complains of nausea or vomiting. Normal BM. Pt denied any chewing or swallowing difficulty. Pt has some gradual weight loss since 2016. Her weight has stayed ~115lbs this year. Pt has been making effort to gain weight and managing her BG. Pt had previous diabetic education. Pt is not interested in any diet education at this time. Current Diet: ADA 1800 Malnutrition Evaluation (02/12/2019) The patient does not meet criteria for a specified degree of malnutrition at this time. Will re-evaluate at follow-up as appropriate. Diet Education Needs Assessment: Diet education indicated, pt is not interested. Nutrition Care Level: low Signed: Jaimee Majano, , RD, LD
[2019-02-12] MEDS ORDERED: IRON SUCROSE 200 MG in SODIUM CHLORIDE 0.9% 100 ML 100 ML IV SCH (19:30)
[2019-02-13] VITALS (7 sets, daily range): BP systolic 97–113; BP diastolic 57–67
[2019-02-13] MEDS: SODIUM CHLORIDE 0.9% 1000ML 1,000 ML IV SCH ×4 (01:47→23:16)
[2019-02-13] MEDS: AZTREONAM 1 GM/NS 50 ML 50 ML IV SCH ×3 (01:51→17:30)
--- NOTE | 2019-02-13 02:58 | Consultation ---
DATE OF CONSULTATION: 02/12/2019 CHIEF COMPLAINT: UTI. HISTORY OF PRESENT ILLNESS: This patient who is a 43-year-old Irish female, who has history of a stent. Apparently, she is coming with a problem with the stent, had to be adjusted. The patient tells me she has history of diabetes mellitus, hypothyroidism, goiter, cholecystectomy, tubal ligation, and ureteral stent placement, comes in with fever and chills and pain. The patient was admitted. She has been seen by Urology who has a stent, underwent repositioning. She is now feeling better. However, because of fever and chills, there was concerned about infection. The patient also has multiple allergies to penicillins, she said cephalosporin and Cipro. REVIEW OF SYSTEMS: At the present time, HEENT: Negative. PULMONARY: Negative. CARDIAC: Negative. : Negative. GI: Negative. Review of systems, otherwise negative. SOCIAL HISTORY: There is no smoking, drug abuse, or alcohol abuse. FAMILY HISTORY: Noncontributory. MEDICATIONS: List reviewed. The patient is currently on insulin, morphine, and aztreonam. LABORATORY DATA: Laboratory data also reviewed. Her white count is 12.06 and hemoglobin 7.7. Sodium 135, potassium of 3.5, creatinine 0.7, and glucose of 399. PHYSICAL EXAMINATION: GENERAL: She is currently alert, oriented, does not seem to be in acute distress. VITAL SIGNS: Stable. There is no fever. When she first came, it was 100.6. HEENT: Normocephalic. Does not appear icteric. NECK: Supple. No JVD. No carotid bruits. No thyromegaly. CHEST: Clear bilateral. HEART: S1, S2. No S3, S4, or murmur. ABDOMEN: Soft. Bowel sounds present. No tenderness. EXTREMITIES: No edema. SKIN: No rash. IMPRESSION: Fever, concerned about urinary tract infection. Await urine culture. We will await sensitivity. We will follow. Further recommendations to follow. Other medical problems as above seem to be stable. MD KYE Adams/SASKAI /[id number]
[2019-02-13] MEDS: ACETAMINOPHEN 325 MG TAB PO PRN ×2 (04:57→21:46)
[2019-02-13] MEDS: ONDANSETRON HCL INJ 2MG/ML 2ML 2 MG/ML VIAL IV PRN ×4 (05:08→21:46)
[2019-02-13] MEDS: MORPHINE SULFATE INJ 4 MG/ML INJ 1ML IV PRN ×4 (05:10→21:46)
[2019-02-13 06:57] LABS: BASOPHILS % 0.1 % (0.0-1.0); HEMATOCRIT 25.9 % (34.2-44.1); HEMOGLOBIN 8.1 g/dL (12.0-16.0); LYMPHOCYTES # (AUTO) 0.3 (1.0-3.2); LYMPHOCYTES % 4.6 % (18.0-39.1); MEAN CORPUSCULAR HEMOGLOBIN 23.1 pg (28-32); MEAN CORPUSCULAR HGB CONC 31.3 g/dL (31-35); MEAN CORPUSCULAR VOLUME 73.8 fL (81-99); MONOCYTES # (AUTO) 0.2 (0.2-0.8); MONOCYTES % 2.7 % (4.4-11.3); NEUTROPHILS # (AUTO) 6.2 (2.1-6.9); NEUTROPHILS % 91.9 % (38.7-80.0); PLATELET COUNT 195 x10e3/uL (140-360); RED BLOOD COUNT 3.51 x10e6/uL (3.6-5.1); RED CELL DISTRIBUTION WIDTH 19.3 % (11.7-14.4)
--- NOTE | 2019-02-13 07:24 | NUR ---
REPORT GIVEN TO ONCOMING NURSE.WALKING ROUNDS MADE.PT RESTING IN BED WITH NO S/S OF DISTRESS.
[2019-02-13] MEDS: INSULIN REGULAR, HUMAN 100 UNIT/1 ML 3ML VIAL SQ SCH ×4 (07:30→20:57)
[2019-02-13 07:44] LABS: ANISOCYTOSIS SLIGHT; LYMPHOCYTES % (MANUAL) 4 % (19-48); MONOCYTES % (MANUAL) 1 % (3.4-9.0); NEUTROPHILS % (MANUAL) 95 % (40-74); RBC MORPHOLOGY COMMENT ABNORMAL
[2019-02-13 07:45] LABS: PLATELET ESTIMATE ADEQUATE; PLATELET MORPHOLOGY COMMENT NORMAL
[2019-02-13] MEDS: FAMOTIDINE 20 MG/2 ML VIAL IV SCH ×2 (10:00→20:57)
--- NOTE | 2019-02-13 10:23 | NUR ---
MD HERNANDEZ AND MD THOMPSON INTO SEE PT, DISCUSSED POC, PT MEDICATED FOR BACK PAIN 02/04 AT THIS TIME, PT EDUCATED TO NOT GET OOB WITHOUT CALLING FOR ASSISTANCE, PT VERBALIZED UNDERSTANDING, CALL LIGHT WITHIN REACH, BED ALARM ON
[2019-02-13] MEDS ORDERED: IRON SUCROSE 100 MG in SODIUM CHLORIDE 0.9% 100 ML 100 ML IV SCH (10:45)
--- NOTE | 2019-02-13 11:15 | Progress Note ---
DATE: SUBJECTIVE: Ms. Bojorquez, who is doing better now. No new complaint. Discussed with Urology. The patient underwent a stent replacement, this is apparently her 20th one. The patient complaining of pain, but there is no fever, no chills. I had long discussion with her from the nursing team. PHYSICAL EXAMINATION: GENERAL: She is currently alert, oriented, does not seem to be in acute distress. VITAL SIGNS: There is no fever. HEENT: She is not icteric. NECK: Supple. CHEST: Clear. HEART: S1, S2. No S3, S4, or murmur. ABDOMEN: Soft. Bowel sounds present. No tenderness. EXTREMITIES: Edema. SKIN: No rash. REVIEW OF SYSTEMS: Otherwise, unremarkable. LABORATORY DATA: White count is 6.72, hemoglobin 8.1, hematocrit 25. Her sodium 135, potassium 3.5, creatinine 0.71. Urine cultures showing yeast. IMPRESSION: 1. Urinary tract infection with yeast. The patient is doing better. No fever. We will give her Diflucan 200 mg p.o. daily for 4 weeks. She is to follow up with urologist, can discontinue Azactam. 2. Anemia. 3. Hydronephrosis, stable. 4. We will discuss with Dr. Salazar. MD KYE Adams/SASKIA /[id number]
[2019-02-13 11:16] LABS: FREE T4 (FREE THYROXINE) 2.63 ng/dL (0.8-1.8); THYROID STIMULATING HORMONE 0.001 uIU/mL (0.350-4.940)
--- NOTE | 2019-02-13 16:36 | NUR ---
PT ON CONSERVATIVE PUP, NEPH TUB DRAINING, PROJECTED DISCHARGE IS 02/14
[2019-02-13] MEDS ORDERED: PROPYLTHIOURACIL 50 MG TAB PO SCH (17:00)
--- NOTE | 2019-02-13 17:06 | NUR ---
SPOKE WITH MD HINKLE, MADE AWARE OF CURRENT LABS, ORDERS NOTED
[2019-02-13] MEDS: FLUCONAZOLE 200 MG/100 ML 100 ML IV SCH (18:25)
--- NOTE | 2019-02-13 19:04 | NUR ---
WALKING ROUNDS PERFORMED, RECEIVED PT LAYING SEMI FOWLERS IN BED, AAOX3, RR EVEN AND NON-LABORED. NO S/SX OF DISTRESS NOTED, PT VERBALIZED PAIN TO (L) SIDE. NEPHROSTOMY NOTED TO (L) POSTERIOR BACK. LEFT PT LAYING SEMI FOWLERS IN BED, BED IN LOW LOCKED POSITION, SIDE RAILS UPX2, CALL LIGHT AND PHONE WITHIN REACH.
--- NOTE | 2019-02-13 20:35 | NUR ---
PT NEPHROSTOMY NOTED TO HAVE BRIGHT RED BLOOD IN TUBING AND ABOUT 15ML IN NEPHROSTOMY BAG. AT SHIFT CHANGE NEPHROSTOMY NOTED TO HAVE PALE YELLOW URINE. PAGE PLACED FOR MD THOMPSON CONCERNING CHANGE IN URINE STATUS. WAITING FOR CALLBACK.
--- NOTE | 2019-02-13 20:40 | NUR ---
SPOKE WITH MD THOMPSON CONCERNING BLOOD IN NEPHROSTOMY. ORDERED TO CALL INTERVENTIONAL RADIOLOGY.
--- NOTE | 2019-02-13 20:50 | NUR ---
SPOKE WITH IR MD LEARY CONCERNING BLOOD IN NEPHROSTOMY. ORDERED TO FLUSH NEPHROSTOMY Q4H WITH NS AND CONTINUE TO MONITOR. REPEAT HH IN AM.
[2019-02-13] MEDS: IRON SUCROSE 200 MG in SODIUM CHLORIDE 0.9% 100 ML 100 ML IV SCH (20:57)
[2019-02-13] MEDS: PROPRANOLOL HCL 40 MG TAB PO SCH (20:57)
--- NOTE | 2019-02-13 20:57 | NUR ---
NEPHROSTOMY FLUSHED WITH 10ML OF NS.
[2019-02-13] MEDS: METHIMAZOLE 5 MG TAB PO SCH (21:00)
--- NOTE | 2019-02-13 23:07 | NUR ---
NEPHROSTOMY TUBING NOTED TO BE FILLED WITH BLOOD, FLUSHED WITH 10 ML OF NS.
[2019-02-14] VITALS (8 sets, daily range): BP systolic 80–112; BP diastolic 51–78
[2019-02-14] MEDS: AZTREONAM 1 GM/NS 50 ML 50 ML IV SCH ×3 (02:13→17:51)
[2019-02-14] MEDS: MORPHINE SULFATE INJ 4 MG/ML INJ 1ML IV PRN ×3 (02:17→20:01)
[2019-02-14] MEDS: ONDANSETRON HCL INJ 2MG/ML 2ML 2 MG/ML VIAL IV PRN ×3 (02:17→20:01)
--- NOTE | 2019-02-14 04:26 | NUR ---
PT BP NOTED TO BE 86/58 MANUAL TO (L) ARM. PT IS ASYMPTOMATIC, STATES "I FEEL FINE." MD MELÉNDEZ PAGED. WAITING FOR CALLBACK.
--- NOTE | 2019-02-14 04:56 | NUR ---
PAGE PLACED FOR MD MELÉNDEZ CONCERNING PT LOW BP. WAITING FOR CALLBACK.
[2019-02-14 06:38] LABS: HEMATOCRIT 21.5 % (34.2-44.1)
[2019-02-14 06:39] LABS: HEMOGLOBIN 6.7 g/dL (12.0-16.0)
[2019-02-14] MEDS: METHIMAZOLE 5 MG TAB PO SCH ×3 (06:39→20:26)
--- NOTE | 2019-02-14 06:40 | NUR ---
STAT PAGE PLACED FOR MD MELÉNDEZ CONCERNING LOW BP AND CRITICAL HGB. WAITING FOR CALL BACK.
[2019-02-14] MEDS: SODIUM CHLORIDE 0.9% 1000ML 1,000 ML IV SCH ×2 (07:30→17:43)
--- NOTE | 2019-02-14 07:30 | NUR ---
NEPHROSTOMY TUBE FLUSHED WITH 10CC SALINE PER MD ORDER BY PM NURSE, BLOOD TINGED DRAINAGE NOTED IN BAG
[2019-02-14] MEDS: PROPRANOLOL HCL 40 MG TAB PO SCH (08:18)
[2019-02-14] MEDS: INSULIN REGULAR, HUMAN 100 UNIT/1 ML 3ML VIAL SQ SCH ×4 (08:30→20:25)
[2019-02-14] MEDS: FAMOTIDINE 20 MG/2 ML VIAL IV SCH ×2 (08:37→20:25)
--- NOTE | 2019-02-14 08:47 | NUR ---
AWAKENS EASILY TO VOICE, DRESSING TO LEFT BACK INTACT WITH BRIGHT RED BLOOD NOTED ON DRESSING, NO ACTIVE BLEEDING NOTED AT THIS TIME, PT LYING IN BED, CALL LIGHT WITHIN REACH
[2019-02-14] MEDS ORDERED: SODIUM CHLORIDE 0.9% 250ML 250 ML IV ONE (10:00)
[2019-02-14] MEDS: FLUCONAZOLE 200 MG/100 ML 100 ML IV SCH (11:56)
--- NOTE | 2019-02-14 14:30 | NUR ---
PT NEPHROSTOMY BAG WITH NO BLOOD NOTED, SCANT SMALL BLOOD CLOTS NOTED, YELLOW IN COLOR
[2019-02-14] MEDS ORDERED: DIPHENHYDRAMINE HCL INJ 50 MG/ML VIAL ONE (15:59)
[2019-02-14] MEDS: ACETAMINOPHEN 325 MG TAB PO PRN (15:59)
[2019-02-14] MEDS ORDERED: DIPHENHYDRAMINE HCL INJ 50 MG/ML VIAL IV PRN (16:00)
--- NOTE | 2019-02-14 16:10 | NUR ---
PT NOTIFIED NURSE RIGHT PRBC STARTED THAT SHE "HAS TO HAVE BENADRYL AND TYLENOL BEFORE TRANSFUSION", TELEPHONED MD, ORDERS NOTED, PT MEDICATED PER MD ORDER,
--- NOTE | 2019-02-14 18:15 | NUR ---
1ST UNIT PRBC INFUSING, GEMA NOTED, DRAINAGE FROM NEPHROSTOMY TUBE STILL YELLOW IN COLOR, PT VOICES NO NEEDS AT THIS TIME, CALL LIGHT WITHIN REACH
[2019-02-14] MEDS: IRON SUCROSE 200 MG in SODIUM CHLORIDE 0.9% 100 ML 100 ML IV SCH (20:25)
[2019-02-14] MEDS ORDERED: SODIUM CHLORIDE 0.9% 250ML 250 ML ONE (21:43)
--- NOTE | 2019-02-14 22:00 | NUR ---
second unit of blood has started transfusing. patient is tolerating procedure well. will continue to monitor transfusion process.
[2019-02-15] VITALS (7 sets, daily range): BP systolic 101–138; BP diastolic 58–78
[2019-02-15] MEDS: ONDANSETRON HCL INJ 2MG/ML 2ML 2 MG/ML VIAL IV PRN ×4 (00:17→20:38)
[2019-02-15] MEDS: MORPHINE SULFATE INJ 4 MG/ML INJ 1ML IV PRN ×3 (00:18→20:38)
[2019-02-15] MEDS: AZTREONAM 1 GM/NS 50 ML 50 ML IV SCH ×3 (02:30→18:20)
[2019-02-15] MEDS: METHIMAZOLE 5 MG TAB PO SCH ×3 (05:45→20:27)
[2019-02-15 05:51] LABS: BASOPHILS % 0.4 % (0.0-1.0); EOSINOPHILS # (AUTO) 0.1 (0.0-0.4); EOSINOPHILS % 3.1 % (0.0-6.0); HEMATOCRIT 31.9 % (34.2-44.1); HEMOGLOBIN 10.5 g/dL (12.0-16.0); LYMPHOCYTES # (AUTO) 0.9 (1.0-3.2); LYMPHOCYTES % 18.7 % (18.0-39.1); MEAN CORPUSCULAR HEMOGLOBIN 24.6 pg (28-32); MEAN CORPUSCULAR HGB CONC 32.9 g/dL (31-35); MEAN CORPUSCULAR VOLUME 74.7 fL (81-99); MONOCYTES # (AUTO) 0.5 (0.2-0.8); NEUTROPHILS % 65.7 % (38.7-80.0); PLATELET COUNT 157 x10e3/uL (140-360); RED BLOOD COUNT 4.27 x10e6/uL (3.6-5.1); RED CELL DISTRIBUTION WIDTH 18.8 % (11.7-14.4)
[2019-02-15 06:24] LABS: ALANINE AMINOTRANSFERASE 30 IU/L (0-55); ALBUMIN 2.4 g/dL (3.5-5.0); ALBUMIN/GLOBULIN RATIO 0.6 (0.8-2.0); ALKALINE PHOSPHATASE 196 IU/L (40-150); ANION GAP 14.7 mmol/L (8-16); BLOOD UREA NITROGEN 6 mg/dL (7-26); BUN/CREATININE RATIO 10 (6-25); CALCIUM 8.1 mg/dL (8.4-10.2); CARBON DIOXIDE 20 mmol/L (22-29); CHLORIDE 108 mmol/L (98-107); EST GLOMERULAR FILTRATION RATE > 60 ML/MIN (60-); GLUCOSE 157 mg/dL (74-118); SODIUM 140 mmol/L (136-145)
[2019-02-15 06:26] LABS: POTASSIUM 2.7 mmol/L (3.5-5.1)
[2019-02-15] MEDS ORDERED: POTASSIUM CHLORIDE 10MEQ EA PO ONE (06:45)
[2019-02-15] MEDS ORDERED: POTASSIUM CHLORIDE 20MEQ/100ML 100 ML IV ONE ×2 (06:45→10:00)
--- NOTE | 2019-02-15 06:45 | NUR ---
RECEIVED CRITICAL POTASSIUM RESULT FROM LABORATORY. NOTIFIED OF POTASSIUM LEVEL. RECEIVED NEW ORDERS.
[2019-02-15] MEDS: INSULIN REGULAR, HUMAN 100 UNIT/1 ML 3ML VIAL SQ SCH ×4 (07:30→22:14)
[2019-02-15] MEDS: FAMOTIDINE 20 MG/2 ML VIAL IV SCH ×2 (08:35→20:27)
--- NOTE | 2019-02-15 10:11 | NUR ---
Patient alert and responsive, VSS and dressing to lower back coming off, rounds by attending and requested to change and dressing was changed, noted old bloody drainage, cleansed area with NS, applied new gauze and tegaderm with tape to secure, nephrostomy tube in place draining c/y urine. Will monitor.
[2019-02-15] MEDS: POTASSIUM CHLORIDE 20MEQ/100ML 100 ML IV ONE ×2 (10:56→11:01)
[2019-02-15] MEDS: FLUCONAZOLE 200 MG/100 ML 100 ML IV SCH (11:02)
[2019-02-15] MEDS ORDERED: POTASSIUM CHLORIDE 20 MEQ TAB CR PO ONE ×2 (11:30)
--- NOTE | 2019-02-15 12:13 | Diagnostic Imaging Report ---
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 Blood pressure was monitored at 5 minute intervals. Additional Medications: Lidocaine 1% for local anesthesia Fluoroscopy time: 0.5 minutes Dose-area Product: 79.2 cGycm2. Contrast used: 10 cc Isovue-300 Estimated blood loss: Minimal Specimens: 100 cc purulent urine from the left nephrostomy Implants: 10 Fr nephrostomy catheter DISCUSSION/FINDINGS: Informed consent for the procedure was obtained from the patient and documented in the medical record after discussion of risks and benefits. The patient was placed in the prone position on the angiographic table. The left flank was prepped and draped in the standard sterile fashion. Preliminary sonographic evaluation confirmed a suitable percutaneous approach to the dilated left renal collecting system. 1% lidocaine was infiltrated into the skin and subcutaneous tissues for local anesthesia. Then under continuous sonographic guidance, an 18 gauge, 15 cm needle was used to access a dilated lower pole calyx. A permanent sonographic image was stored. Purulent urine confirmed positioning. An Amplatz wire was placed into the collecting system. Subsequently, after sequential dilatation, a 10 Fr pigtail nephrostomy catheter was advanced over the wire, which was then removed. The pigtail was locked in the renal pelvis, confirmed by injection of dilute contrast material. Approximately 100 cc of cloudy/purulent urine were obtained from the left collecting system and sent for culture. The catheter was flushed with sterile saline and connected to gravity drainage. The catheter was secured to the skin with two monofilament nylon suture and a sterile dressing was applied. The patient tolerated the procedure well without immediate complication. IMPRESSION: Ultrasound and fluoroscopic guided placement of a left percutaneous nephrostomy drainage catheter (10 Fr pigtail) under sonographic and fluoroscopic guidance. Aspiration of 100 cc of cloudy/purulent urine. The catheter should remain to gravity drainage. Recommend sterile saline flush 10 cc to the bag and 10 cc into the catheter every shift until urine clears. The patient should return to interventional radiology for routine catheter exchange in 2-3 months if the catheter is still needed at that time. Signed by: Dr. Reji Hyman MD on 02/15/2019 12:09 PM
[2019-02-15] MEDS: SODIUM CHLORIDE 0.9% 1000ML 1,000 ML IV SCH (18:20)
--- NOTE | 2019-02-15 18:51 | NUR ---
Patient alert and responsive, no distress, urostomy tube in place and draining, pains well managed, tolerated all KCL IV today and call light within reach.
--- NOTE | 2019-02-15 19:00 | NUR ---
received report from day nurse. patient is resting comfortably in bed. bed is in lowest position and call miranda is within reach. will continue to monitor patient.
[2019-02-15] MEDS: IRON SUCROSE 200 MG in SODIUM CHLORIDE 0.9% 100 ML 100 ML IV SCH (20:27)
[2019-02-16] VITALS (7 sets, daily range): BP systolic 98–120; BP diastolic 56–83
[2019-02-16] MEDS: AZTREONAM 1 GM/NS 50 ML 50 ML IV SCH (01:51)
[2019-02-16] MEDS: ONDANSETRON HCL INJ 2MG/ML 2ML 2 MG/ML VIAL IV PRN ×4 (02:10→21:11)
[2019-02-16] MEDS: MORPHINE SULFATE INJ 4 MG/ML INJ 1ML IV PRN ×4 (02:10→21:11)
[2019-02-16] MEDS: METHIMAZOLE 5 MG TAB PO SCH ×3 (04:39→22:31)
[2019-02-16] MEDS: SODIUM CHLORIDE 0.9% 1000ML 1,000 ML IV SCH ×2 (05:08→19:00)
[2019-02-16 06:36] LABS: ANION GAP 14.9 mmol/L (8-16); BLOOD UREA NITROGEN < 5 mg/dL (7-26); CALCIUM 7.7 mg/dL (8.4-10.2); CARBON DIOXIDE 23 mmol/L (22-29); CHLORIDE 105 mmol/L (98-107); CREATININE, SERUM 0.58 mg/dL (0.57-1.11); EST GLOMERULAR FILTRATION RATE > 60 ML/MIN (60-); GLUCOSE 147 mg/dL (74-118); SODIUM 140 mmol/L (136-145)
[2019-02-16 06:41] LABS: BUN/CREATININE RATIO 9 (6-25)
[2019-02-16 06:42] LABS: POTASSIUM 2.9 mmol/L (3.5-5.1)
[2019-02-16] MEDS ORDERED: POTASSIUM CHLORIDE 20MEQ/100ML 100 ML IV ONE (07:00)
[2019-02-16] MEDS: POTASSIUM CHLORIDE 20 MEQ TAB CR PO SCH ×2 (07:30→12:00)
[2019-02-16] MEDS: INSULIN REGULAR, HUMAN 100 UNIT/1 ML 3ML VIAL SQ SCH ×4 (08:05→20:27)
[2019-02-16] MEDS: FAMOTIDINE 20 MG/2 ML VIAL IV SCH ×2 (10:00→20:26)
[2019-02-16] MEDS: FLUCONAZOLE 200 MG/100 ML 100 ML IV SCH (12:00)
--- NOTE | 2019-02-16 19:10 | NUR ---
walking rounds made with manager shift nurse, patient aware of change and in no distress. call miranda within reach and bed in lowest position.
[2019-02-16] MEDS: IRON SUCROSE 200 MG in SODIUM CHLORIDE 0.9% 100 ML 100 ML IV SCH (21:16)
[2019-02-17 00:31] VITALS: BP 123/71
[2019-02-17 04:00] VITALS: BP 113/74
[2019-02-17] MEDS: MORPHINE SULFATE INJ 4 MG/ML INJ 1ML IV PRN ×2 (04:31→09:37)
--- NOTE | 2019-02-17 04:34 | Consultation ---
DATE OF CONSULTATION: 02/16/2019 REASON FOR CONSULTATION: The patient is a 43-year-old 4, para 3-0-1-3, who has been admitted to the hospital with obstructive uropathy requiring nephrostomy tube. Also known to have fibroid uterus and anemia, who also has diabetes and has been admitted for her obstructive uropathy. She originally had complains of increasing pain in the left flank. She had a urethral stent, which had been left in and had an indwelling ureteral stent left, on May 02, 2018. She was admitted with sepsis. This has since been treated now. Now the question is what necessary to prevent recurrence of her problems. By history, the patient states she has a known fibroid uterus with a 12 cm intramural fibroid, a 6 cm left subserosal fibroid, and a 6 cm right subserosal fibroid. She has been seeing Dr. Mancilla for this problems. Dr. Mancilla is a EQUINE MANAGER oncologist and plans had been for hysterectomy since 2015. However, the patient had thyroid storm and the surgery was delayed due to this and then it was delayed due to anemia and it was planned again to be this July for whatever reason medical stability would have you. She was put off with her surgery for known fibroid uterus and now she has been admitted for sepsis due to obstructive uropathy. PAST MEDICAL HISTORY: Remarkable for diabetes, on 3 to 5 units of insulin q.a.m., 5 units at lunch, and 10 units prior to dinner. She had thyroid storm and had radiation therapy, but still apparently hyperthyroid and has been restarted on her medications. She has been known to have hypertension for 3 years. It started around the time of the thyroid storm. She states she has also had pancreatitis. She thinks it was caused by her thyroid storm. She states she did use to drink 5 to 6 beers on the weekend, but she quit drinking in 2007. She also used to smoke 6 to 7 cigarettes a day for 15 years, but quit in 2013 and she did use marijuana when she was younger. She also has in her medical history hyperlipidemia, history of the pancreatitis as well. PAST SURGICAL HISTORY: Remarkable for tubal ligation years ago in [place] and nephrostomy this admission. Pancreatic stent, which was stented from her stomach to small bowel. She also had ureteral stents. In the EQUINE MANAGER Department, the patient states her menses have been relatively normal 5-day periods, but then in November of 2018, she bled for 1-1/2 months. PHYSICAL EXAMINATION: VITAL SIGNS: The patient is afebrile. Her vital signs are stable. Her height is 61 inches, her weight is 112 pounds. ABDOMEN: Reveals 18 to 20-week size uterus, easily pressing against the right and left lateral peritoneal díaz. There is no tenderness noted, but the uterus is definitely nodular. Pelvic exam is deferred at this time. IMAGING STUDIES: Show blockage of the ureters and a large fibroid uterus. LABORATORY VALUES: Of note, current white count 4.5, hemoglobin 10.5, hematocrit 31.9, platelets 157. This is status post transfusion of 3 units of packed cells. Her sodium is 140, potassium 2.7, chloride 108, bicarb 20, glucose 157, creatinine 0.6, BUN 6. Sugars have been relatively well controlled. AST is 71, ALT within normal limits. Alkaline phosphatase 196, total bilirubin 1.0. PT on admission was 15.6, PTT 27.9, INR 1.18. IMPRESSION: Large fibroid uterus, menorrhagia, anemia in a patient with diabetes, hypertension, hyperthyroidism, left kidney obstruction with hydronephrosis status post nephrostomy this admission. Current hypokalemia PLAN: I have discussed possible treatments with the patient including surgery, endometrial biopsy if not done by her EQUINE MANAGER oncologist, Lupron to shrink the fibroids, and hysterectomy when the hemoglobin is 11 or 12. The Lupron therapy would stop her menses for 3 months and allow for her hemoglobin to increase. I discussed her being with Dr. Mancilla for 3 years now and stated to her that surgery would be recommended as soon as she is medically stable, but did recommend that she need surgery with a graduate fellow oncologist due to the likely compression of the ureters by the uterus and her tenuous medical situation between the hyperthyroidism, the diabetes, and hypertension as well as her other medical problems. I do recommend that her hypokalemia be corrected as soon as possible. I do know she is getting potassium therapy, but the potassium deficit is quite high and a large amount of potassium repletion probably needs to be done. After discussion with her and due to the complex nature of her surgery, I recommended that she continue seeing the EQUINE MANAGER oncologist and I would be happy to call Dr. Mancilla's partner, Dr. Barraza to ensure that the surgery would proceed as soon as possible and as soon as the patient is medically stable. The patient is agreeable to this plan of care after the patient is stable enough for discharge. MD QUINTON Greene/SASKIA /[id number]
[2019-02-17 06:09] LABS: BASOPHILS % 0.4 % (0.0-1.0); EOSINOPHILS # (AUTO) 0.2 (0.0-0.4); EOSINOPHILS % 4.4 % (0.0-6.0); HEMATOCRIT 29.1 % (34.2-44.1); HEMOGLOBIN 9.4 g/dL (12.0-16.0); LYMPHOCYTES # (AUTO) 1.4 (1.0-3.2); LYMPHOCYTES % 25.8 % (18.0-39.1); MEAN CORPUSCULAR HEMOGLOBIN 24.2 pg (28-32); MEAN CORPUSCULAR HGB CONC 32.3 g/dL (31-35); MEAN CORPUSCULAR VOLUME 74.8 fL (81-99); MONOCYTES # (AUTO) 0.7 (0.2-0.8); MONOCYTES % 12.8 % (4.4-11.3); NEUTROPHILS # (AUTO) 2.9 (2.1-6.9); NEUTROPHILS % 53.5 % (38.7-80.0); PLATELET COUNT 170 x10e3/uL (140-360); RED BLOOD COUNT 3.89 x10e6/uL (3.6-5.1)
[2019-02-17] MEDS: METHIMAZOLE 5 MG TAB PO SCH ×2 (06:11→16:49)
--- NOTE | 2019-02-17 07:13 | NUR ---
Report given to LAKEISHA Obrien. Pt resting in bed comfortably in no apparent distress. Call light is in reach.
[2019-02-17] MEDS: SODIUM CHLORIDE 0.9% 1000ML 1,000 ML IV SCH (07:56)
[2019-02-17 08:00] VITALS: BP 111/62
[2019-02-17 08:05] LABS: ANION GAP 11.9 mmol/L (8-16); BLOOD UREA NITROGEN < 5 mg/dL (7-26); CALCIUM 7.3 mg/dL (8.4-10.2); CARBON DIOXIDE 23 mmol/L (22-29); CHLORIDE 105 mmol/L (98-107); CREATININE, SERUM 0.52 mg/dL (0.57-1.11); EST GLOMERULAR FILTRATION RATE > 60 ML/MIN (60-); GLUCOSE 157 mg/dL (74-118); SODIUM 137 mmol/L (136-145)
[2019-02-17 08:07] VITALS: BP 111/62
[2019-02-17 08:11] LABS: BUN/CREATININE RATIO 10 (6-25)
[2019-02-17 08:13] LABS: POTASSIUM 2.9 mmol/L (3.5-5.1)
[2019-02-17] MEDS ORDERED: POTASSIUM CHLORIDE 20MEQ/100ML 200 ML IV ONE (08:45)
--- NOTE | 2019-02-17 09:00 | NUR ---
Notified Dr. Salazar to report critical low potassium level of 2.9. Received orders to give 40MEQ IV times one and then give another 80MEQ PO.
[2019-02-17] MEDS: FAMOTIDINE 20 MG/2 ML VIAL IV SCH (09:04)
[2019-02-17] MEDS ORDERED: POTASSIUM CHLORIDE 20 MEQ TAB CR PO ONE ×2 (09:15→12:00)
[2019-02-17 09:47] LABS: BAND NEUTROPHILS % (MANUAL) 3 %; EOSINOPHILS % (MANUAL) 2 % (0-7); LYMPHOCYTES % (MANUAL) 30 % (19-48); MONOCYTES % (MANUAL) 11 % (3.4-9.0); NEUTROPHILS % (MANUAL) 54 % (40-74)
[2019-02-17 09:49] LABS: POIKILOCYTOSIS SLIGHT
[2019-02-17 09:51] LABS: ANISOCYTOSIS SLIGHT; PLATELET ESTIMATE ADEQUATE; PLATELET MORPHOLOGY COMMENT NORMAL; POLYCHROMASIA FEW; RBC MORPHOLOGY COMMENT ABNORMAL
[2019-02-17] MEDS: INSULIN REGULAR, HUMAN 100 UNIT/1 ML 3ML VIAL SQ SCH ×3 (09:59→17:26)
[2019-02-17] MEDS: FLUCONAZOLE 200 MG/100 ML 100 ML IV SCH (11:14)
--- NOTE | 2019-02-17 11:30 | NUR ---
Dr. Salazar is here to see pt. He discontinued IVF and ordered a K level @ 1600. If level is normal pt will be able to go home.
--- NOTE | 2019-02-17 12:06 | Discharge Summary ---
A 43-year-old female patient, history of leiomyoma with ureteric obstruction, had a stent in the past, did not follow with any physician. Also has history of hyperthyroidism, had a radioiodine, not following with any physician for followup. Her PCP is Dr. Wiley. She came to the emergency room with extreme weakness, fever, left loin pain. The patient was diagnosed with left obstructive uropathy with pyelonephritis. She had a nephrostomy tube placed and treated with IV antibiotics. Urine culture was positive for yeast. She received Diflucan. She was tachycardic. She was treated with fluids. In spite of fluid resuscitation and treatment of sepsis, she continued to have tachycardia. The thyroid workup revealed hyperthyroidism, so she was started on methimazole and propranolol. Her heart rate is normal now. She was seen by carpenter supervisor, Dr. Lopez. She has to follow as outpatient for hysterectomy and also follow with Dr. Pringle, urologist, and with the PCP, Dr. Wiley. She also had persistent hypokalemia, which was replaced. DISCHARGE DIAGNOSES: Left obstructive uropathy with pyelonephritis, sepsis, hypotension, hyperthyroidism, noncompliance, leiomyoma. Given prescription for methimazole 10 mg three times daily and propranolol 20 mg three times daily. MD TIERRA Sage/SASKIA /[id number]
[2019-02-17 12:07] VITALS: BP 104/56
[2019-02-17] MEDS ORDERED: METHIMAZOLE10 MG PO (13:10)
[2019-02-17] MEDS ORDERED: PROPRANOLOL HCL20 MG PO (13:11)
[2019-02-17] MEDS ORDERED: DIFLUCAN200 MG PO (13:12)
[2019-02-17] MEDS ORDERED: MORPHINE SULFATE 2 MG/ML SYR 1ML IV PRN (15:00)
[2019-02-17 16:08] VITALS: BP 98/65
--- NOTE | 2019-02-17 16:55 | NUR ---
Spoke to Dr. Salazar to report K level of 4.6 and received orders for pt to discharge home and to follow up with PCP and urology.
--- NOTE | 2019-02-17 18:45 | NUR ---
Pt discharged home at this time. Pt and family verbalized understanding of discharge instructions. Pt correctly demonstrated nephrostomy care. Denies any pain at time of discharge. 0 s/s of acute distress noted at time of discharge.
== END 2019-02-17 18:48 | disposition home or self-care (01) | DRG 698 ==
LOC: ER 16:34 → ERHOLD 17:43 → MED/SURG 21:26
PROVIDERS: ADMIT Internal Medicine; ATTEND Internal Medicine
PROC: 0T9130Z Drainage of Left Kidney with Drainage Device, Percutaneous Approach (ICD-10-PCS; principal; 2019-02-11)
PROC: 30233N1 Transfusion of Nonautologous Red Blood Cells into Peripheral Vein, Percutaneous Approach (ICD-10-PCS; 2019-02-12)
DX: T83.592A Infection and inflammatory reaction due to indwelling ureteral stent, initial encounter (principal); A41.9 Sepsis, unspecified organism; N13.6 Pyonephrosis; B37.49 Other urogenital candidiasis; I10 Essential (primary) hypertension; E11.9 Type 2 diabetes mellitus without complications; E78.5 Hyperlipidemia, unspecified; E03.9 Hypothyroidism, unspecified; D25.9 Leiomyoma of uterus, unspecified; N92.0 Excessive and frequent menstruation with regular cycle; E05.90 Thyrotoxicosis, unspecified without thyrotoxic crisis or storm; E87.6 Hypokalemia; D50.9 Iron deficiency anemia, unspecified; Z96.0 Presence of urogenital implants; Z83.3 Family history of diabetes mellitus; Z82.49 Family history of ischemic heart disease and other diseases of the circulatory system; Z88.1 Allergy status to other antibiotic agents; Z87.891 Personal history of nicotine dependence; Z88.0 Allergy status to penicillin; Z91.19 Patient's noncompliance with other medical treatment and regimen; Z79.4 Long term (current) use of insulin
CPT/HCPCS: 36415; 50433; 71045; 74018; 74176; 74470; 76942; 80048; 80053; 81001; 82550; 82553; 82728; 82948; 83540; 83605; 83690; 83735; 83880; 84132; 84439; 84443; 84466; 84484; 85014; 85018; 85025; 85610; 85730; 86850; 86900; 86920; 87040; 87070; 87205; 93005; 99284; C1769; J1200; J1450; J1756; J1817; J2001; J2250; J2270; J2405; J3010; J3260; J3480; J7030; J7040; J7050; J7799; P9016

== ENCOUNTER → 2019-03-20 | Day surgery (SDC) | payer OTHER ==
[2019-03-05 15:32] LABS: BASOPHILS % 0.5 % (0.0-1.0); EOSINOPHILS # (AUTO) 0.1 (0.0-0.4); EOSINOPHILS % 2.3 % (0.0-6.0); HEMATOCRIT 38.5 % (34.2-44.1); HEMOGLOBIN 12.4 g/dL (12.0-16.0); LYMPHOCYTES % 23.2 % (18.0-39.1); MEAN CORPUSCULAR HEMOGLOBIN 26.6 pg (28-32); MEAN CORPUSCULAR HGB CONC 32.2 g/dL (31-35); MEAN CORPUSCULAR VOLUME 82.4 fL (81-99); MONOCYTES # (AUTO) 0.5 (0.2-0.8); MONOCYTES % 10.9 % (4.4-11.3); NEUTROPHILS # (AUTO) 2.8 (2.1-6.9); NEUTROPHILS % 62.9 % (38.7-80.0); PLATELET COUNT 193 x10e3/uL (140-360); RED BLOOD COUNT 4.67 x10e6/uL (3.6-5.1); RED CELL DISTRIBUTION WIDTH 24.1 % (11.7-14.4)
[2019-03-05 15:44] LABS: ANION GAP 17.2 mmol/L (8-16); BLOOD UREA NITROGEN 12 mg/dL (7-26); BUN/CREATININE RATIO 15 (6-25); CALCIUM 9.3 mg/dL (8.4-10.2); CARBON DIOXIDE 17 mmol/L (22-29); CHLORIDE 99 mmol/L (98-107); CREATININE, SERUM 0.79 mg/dL (0.57-1.11); EST GLOMERULAR FILTRATION RATE > 60 ML/MIN (60-); GLUCOSE 361 mg/dL (74-118); POTASSIUM 4.2 mmol/L (3.5-5.1); SODIUM 129 mmol/L (136-145)
[~2019-03-20] MED LIST changes: +DEXAMETHASONE SOD PHOS INJ 4 MG/ML VIAL ONE; +DIFLUCAN200 MG PO; +FENTANYL CITRATE/PF 100MCG/2 ML INJ ONE; +GENTAMICIN 120MG/NS 100ML 100 ML ONE; +IOPAMIDOL 610MG/1ML 300 MG/ML VIAL IV ONE; +LIDOCAINE HCL 2% LOCAL INJ 5 ML SDV VIAL INJ ONE; +MIDAZOLAM HCL 2 MG/2 ML VIAL ONE; +ONDANSETRON HCL INJ 2MG/ML 2ML 2 MG/ML VIAL ONE; +PROPOFOL IV EMULSION 10 MG/ML 20 ML VIAL ONE; +PROPRANOLOL HCL20 MG PO; +SEVOFLURANE INHAL SOLN 250 ML PEN BTL ONE
--- OUTSIDE RECORDS SUMMARY | 2019-03-20 05:49 | XMS REPORT | Continuity of Care Document ---
Author Author [employer] Address Unknown Phone Unavailable Care Team Providers Care Matching Machine Operator Name Role Phone Caperfly Unavailable Unavailable Problems Problem Status Onset Date Classification Date Reported Comments Source PRBC Active 08/29/2018 [facility] K85.90 - ACUTE PANCREATITIS WITHOUT NEC Active 08/28/2018 A[facility] Type 2 diabetes mellitus with ketoacidosis without coma 11/07/2017 02/05/2018 [facility] PELVIC PAIN Active 10/29/2017 [facility] Complicated UTI Active 09/27/2017 09/18/2018 [facility] Recurrent UTI Active 09/23/2017 09/18/2018 [facility] Uterine leiomyoma Active 09/23/2017 09/18/2018 [facility] Pelvic pain Active 09/23/2017 09/18/2018 [facility] Essential hypertension Active 09/23/2017 09/18/2018 [facility] Type 2 diabetes mellitus with complication, with long-term current use of insulin Active 09/23/2017 09/18/2018 [facility] Hyperthyroidism Active 09/23/2017 09/18/2018 [facility] ABD PAIN Active 03/09/2017 [facility] ABDOMINAL PAIN, SINUS TACHYCARDIA Active 03/09/2017 [facility] PYELONEPHRITIS, HYDRONEPHROSIS Active 12/27/2016 [facility] PYELONEPHRITIS, THYROTOXICOSIS, HYDROURE Active 12/27/2016 [facility] PANCREATIC PSEUDOCYSTS Active 09/10/2016 [facility] Severe malnutrition Active 08/27/2016 Problem 10/02/2018 [facility] AAKASH [place],[facility] PANCREATIC INFECTED PSAUDOCYSTS ABENEXAL Active 08/23/2016 [facility] LARGE ADNEXAL MASS Active 08/17/2016 [facility] MRSA1, 2 Active 08/06/2016 Problem 01/01/2017 Cyst fluid, 08/06/2016 Problem added by Discern Expert. [facility] MRSA2, 3 Active 08/06/2016 Problem 10/02/2018 Cyst fluid, 08/06/2016 Problem added by Discern Expert. [facility], AAKASH [place],[facility] PANCREATITIS Active 07/05/2016 [facility] UPPER ABD PAIN Active 06/15/2016 [facility] THYROID STORM, ACUTE PANCREATITIS Active 06/15/2016 [facility] Goiter Active 07/29/2004 Problem 10/02/2018 [facility], AAKASH [place],[facility] Gallbladder disease Resolved Problem 01/01/2017 [facility] Diabetes Active Problem 10/02/2018 [facility], AAKASH [place],[facility] Heartburn Resolved Problem 10/02/2018 [facility], AAKASH [place],[facility] Hypomagnesemia Active Problem 10/02/2018 [facility], AAKASH [place],[facility] Hypophosphatemia Active Problem 10/02/2018 [facility], AAKASH [place],[facility] Gallbladder disease1 Active Problem 10/02/2018 Stones removed Jun 2017 [facility], AAKASH [place],[facility] Thyrotoxicosis, unspecified with thyrotoxic crisis or storm 02/05/2018 [facility] Unspecified abdominal pain 02/05/2018 [facility] Common bile duct dilation Active 09/18/2018 [facility] History of pancreatitis Active 09/18/2018 [facility] Microcytic anemia Active 09/18/2018 [facility] Hydroureteronephrosis Active 09/18/2018 [facility] NO SHOW ENCOUNTER Active 09/18/2018 [facility] Submucous leiomyoma of uterus Active 09/18/2018 [facility] Iron deficiency anemia, unspecified iron deficiency anemia type Active 09/18/2018 [facility] Uterine leiomyoma, unspecified location Active 09/18/2018 [facility] Tachycardia Active 09/18/2018 [facility] Yeast infection of the vagina Active 09/18/2018 [facility] DKA Active Problem 04/20/2018 [facility] Pain due to ureteral stent Active Problem 04/20/2018 [facility] Pyelonephritis Active Problem 04/20/2018 [facility] UTI Active Problem 04/20/2018 [facility] THYROTOXICOSIS, UNSPECIFIED WITH THYROTO Active [facility] ACUTE PANCREATITIS WITHOUT NECROSIS OR I Active [facility] ILLNESS, UNSPECIFIED Active [facility] OTHER SPECIFIED NONINFLAMMATORY DISORDER Active [facility] OTHER SPECIFIED CONGENITAL DEFORMITIES Active [facility] IRRITABLE BOWEL SYNDROME WITHOUT DIARRHE Active [facility] PSEUDOCYST OF PANCREAS Active [facility] TUBULO-INTERSTITIAL NEPHRITIS, NOT SPCF Active [facility] HYDRONEPHROSIS W URETERAL STRICTURE, NEC Active [facility] ACUTE PYELONEPHRITIS Active [facility] THYROTOXICOSIS, UNSP WITHOUT THYROTOXIC Active [facility] UNSPECIFIED ABDOMINAL PAIN Active [facility] TACHYCARDIA, UNSPECIFIED Active [facility] Medications Medication Details Route Status Patient Instructions Ordering Provider Order Date Source Benadryl 25 mg, 0.5 mL, Route: IV, Drug form: INJ, On Adm, Start date: 09/02/18 12:00:00 DOG BEHAVIORIST, Stop date: 09/02/18 21:00:00 CSTNotes: (Same as: Benadryl) Inactive 09/02/2018 [facility] Tylenol 650 mg, 2 tab, Route: PO, Drug form: TAB, On Adm, Start date: 09/02/18 12:00:00 DOG BEHAVIORIST, Stop date: 09/02/18 21:00:00 CSTNotes: Do not exceed 4 gm/day. (Same as: Tylenol) Inactive 09/02/2018 [facility] Benadryl 25 mg, 0.5 mL, Route: IV, Drug form: INJ, On Adm, Start date: 09/01/18 8:23:00 DOG BEHAVIORIST, Stop date: 09/02/18 23:00:00 CSTNotes: (Same as: Benadryl) Inactive 09/01/2018 [facility] Tylenol 650 mg, 2 tab, Route: PO, Drug form: TAB, On Adm, Start date: 09/01/18 8:22:00 DOG BEHAVIORIST, Stop date: 09/02/18 23:00:00 CSTNotes: Do not exceed 4 gm/day. (Same as: Tylenol) Inactive 09/01/2018 [facility] Dextrose 5% with 0.45% NaCl IV 1,000 mL 1,000 mL, Rate: 100 ml/hr, Infuse over: 10 hr, Route: IV, Dosing Weight 46.364 kg, Total Volume: 1,000, Start date: 10/29/17 23:57:00 CDT, Duration: 30 day, Stop date: 11/28/17 23:56:00 CDT, 1.42, m2 No Longer Active 10/30/2017 [facility] Dextrose 50% Syringe 25 gm, Route: IVP, Dosing Weight 46.364, kg, ONCE, STAT, Start date: 10/29/17 23:56:00 CDT, Stop date: 10/29/17 23:56:00 CDT No Longer Active 10/30/2017 [facility] 3 ML insulin detemir 100 UNT/ML Prefilled Syringe [Levemir] 30 unit, SUB-Q, Bedtime, 0 Refill(s) Active 10/30/2017 [facility] 3 ML Insulin, Aspart, Human 100 UNT/ML Pen Injector [NovoLog] 15 unit, SUB-Q, TID-Before Meals, 0 Refill(s) Active 10/30/2017 [facility] propranolol 20 mg oral tablet 20 mg=1 tab, PO, BID, 0 Refill(s) Active 10/30/2017 [facility] Magnesium Sulfate 1 gm, 100 mL, Route: IVPB, Drug form: INJ, PRN, Dosing Weight 46.364, kg, PRN Abnormal Lab Result, Start date: 10/29/17 21:33:00 CDT, Duration: 30 day, Stop date: 11/28/17 21:32:00 CDTNotes: WASTE: F/P - Sink; E - Municipal Trash Bin No Longer Active 10/30/2017 [facility] Potassium Chloride 10 mEq, 100 mL, Route: IVPB, Drug form: INJ, PRN, Dosing Weight 46.364, kg, PRN Abnormal Lab Result, Via peripheral line, Start date: 10/29/17 21:33:00 CDT, Duration: 30 day, Stop date: 11/28/17 21:32:00 CDTNotes: Infuse at a rate of 10 mEq/hr. (Same as: KCL) No Longer Active 10/30/2017 [facility] potassium phosphate 15 mmol, 5 mL, Route: IVPB, PRN, Dosing Weight 46.364, kg, PRN Abnormal Lab Result, Start date: 10/29/17 21:33:00 CDT, Duration: 30 day, Stop date: 11/28/17 21:32:00 CDTNotes: (Same as: K Phosphate.) 1 mMol phoshate has 1.47 mEq potassium Infuse over 4 hours No Longer Active 10/30/2017 [facility] Dextrose 50% Syringe 12.5 gm, 25 mL, Route: IVP, Drug Form: INJ, Dosing Weight 46.364, kg, PRN, PRN Blood Glucose Results, Start date: 10/29/17 21:33:00 CDT, Duration: 30 day, Stop date: 11/28/17 21:32:00 CDT No Longer Active 10/30/2017 [facility] Glucagon 1 mg, Route: IM, Drug form: PDR/INJ, PRN, Dosing Weight 46.364, kg, PRN Blood Glucose Results, Start date: 10/29/17 21:33:00 CDT, Duration: 30 day, Stop date: 11/28/17 21:32:00 CDT No Longer Active 10/30/2017 [facility] Insulin (regular) Titrate IV additive 100 [...] (Do not shake) No Longer Active 10/30/2017 [facility] D5NS 1,000 mL 1,000 mL, Rate: 250 ml/hr, Infuse over: 4 hr, Route: IV, Dosing Weight 46.364 kg, Total Volume: 1,000, Start date: 10/29/17 21:33:00 CDT, Duration: 30 day, Stop date: 11/28/17 21:32:00 CDT, 1.42, m2 No Longer Active 10/30/2017 [facility] Sodium Chloride 0.9% IV 1,000 mL 1,000 mL, Rate: 250 ml/hr, Infuse over: 4 hr, Route: IV, Dosing Weight 46.364 kg, Total Volume: 1,000, When Finger stick blood glucose values remain ABOVE 250 mg/dL administer until BG is less than 250 mg/dL., Start date: 10/29/17 21:33:00 CDT, Durati... No Longer Active 10/30/2017 [facility] Sodium Chloride 0.9% (Bolus) IV 1,000 mL, 1,000 ml/hr, Infuse Over: 1 hr, Route: IV, ONCE, Priority: STAT, Dosing Weight 46.364 kg, Start date: 10/29/17 21:27:00 CDT, Stop date: 10/29/17 21:27:00 CDT Inactive 10/30/2017 [facility] Zofran 4 mg, Route: IVP, Drug form: INJ, ONCE, Dosing Weight 46.364, kg, Priority: STAT, Start date: 10/29/17 21:27:00 CDT, Stop date: 10/29/17 21:27:00 CDT Inactive 10/30/2017 [facility] Morphine 4 mg, Route: IVP, ONCE, Dosing Weight 46.364, kg, Priority: STAT, Start date: 10/29/17 21:27:00 CDT, Stop date: 10/29/17 21:27:00 CDT Inactive 10/30/2017 [facility] esmolol 25,000 microgram, Route: IVP, ONCE, Dosing Weight 46.364, kg, Priority: STAT, Start date: 10/29/17 21:16:00 CDT, Stop date: 10/29/17 21:16:00 CDT Inactive 10/30/2017 [facility] Sodium Chloride 0.9% (Bolus) IV 1,000 mL, 1,000 ml/hr, Infuse Over: 1 hr, Route: IV, ONCE, Priority: STAT, Dosing Weight 46.364 kg, Start date: 10/29/17 21:16:00 CDT, Stop date: 10/29/17 21:16:00 CDT Inactive 10/30/2017 [facility] esmolol 25,000 microgram, Route: IVP, ONCE, Dosing Weight 46.364, kg, Priority: STAT, Start date: 10/29/17 21:15:00 CDT, Stop date: 10/29/17 21:15:00 CDT Inactive 10/30/2017 [facility] Methimazole 30 mg, Route: PO, ONCE, Dosing Weight 46.364, kg, Start date: 10/29/17 20:57:00 CDT, Stop date: 10/29/17 20:57:00 CDT Inactive 10/30/2017 [facility] Saline Flush 0.9% 10 mL, Route: IVP, Drug Form: INJ, Dosing Weight 46.364, kg, PRN, PRN Line Flush, Start date: 10/29/17 20:14:00 CDT, Duration: 30 day, Stop date: 11/28/17 20:13:00 CDTNotes: (Same as: BD Posiflush) No Longer Active 10/30/2017 [facility] ferrous sulfate 325 mg (65 mg iron) tablet Take 1 tablet by mouth daily for 90 days. Oral No Longer Active 10/01/2017 [facility] methIMAzole (TAPAZOLE) 5 mg tablet Take 15 mg by mouth 3 times daily. Oral No Longer Active 09/30/2017 [facility] Metoprolol-Hydrochlorothiazide 100-25 mg per tablet Take 1 tablet by mouth daily. Oral No Longer Active 09/30/2017 [facility] metoprolol tartrate (LOPRESSOR) 25 mg tablet Take 25 mg by mouth 2 times daily. Oral No Longer Active 09/30/2017 [facility] sulfamethoxazole-trimethoprim (BACTRIM DS) 800-160 mg per tablet Take 1 tablet by mouth 2 times daily for 4 days. Oral Inactive 09/30/2017 [facility] methIMAzole (TAPAZOLE) 10 mg tablet Take 2 tablets by mouth 3 times daily for 90 days. Oral No Longer Active 09/30/2017 [facility] propranolol (INDERAL) 10 mg tablet Take 3 tablets by mouth 3 times daily for 90 days. Oral Inactive 09/30/2017 [facility] traMADol (ULTRAM) 50 mg tablet Take 2 tablets by mouth every 6 hours as needed for up to 7 days for Pain. Oral No Longer Active 09/30/2017 [facility] fluconazole (DIFLUCAN) 150 mg tablet Take 1 tablet by mouth once for 1 dose. Oral No Longer Active 09/25/2017 [facility] ibuprofen (MOTRIN) 800 mg tablet Take 1 tablet by mouth every 8 hours as needed for Pain. Oral Active 09/23/2017 [facility] traMADol (ULTRAM) 50 mg tablet Take 1 tablet by mouth every 8 hours as needed for Pain. Oral No Longer Active 09/23/2017 [facility] Acetaminophen With Codeine (Tylenol With Codeine #3 Tablet) 1 Each Tablet Every 4 Hours as needed for Pain Active [facility] 09/03/2017 [facility] Ferrous Sulfate 325 Mg Tablet Daily Active [facility] 09/03/2017 [facility] Nitrofurantoin Macrocrystal (Nitrofurantoin) 100 Mg Capsule Twice A Day Active [place] 09/03/2017 [facility] Propranolol Hcl 40 Mg Tablet Every 8 Hours Active [facility] 09/03/2017 [facility] Insulin Detemir 100 Unit/Ml Pen Bedtime Active [facility] 08/03/2017 [facility] Methimazole 5 Mg Tablet Three Times A Day Active [facility] 08/03/2017 [facility] Tramadol Hcl (Ultram 50MG*) 50 Mg Tab Daily Active [facility] 08/03/2017 [facility] Ferrous Sulfate (Feosol) 325 Mg Tablet, 325 Mg Oral Daily Active [facility] 08/03/2017 [facility] Methimazole 10 Mg Tablet, 25 Mg Oral Daily Active 08/03/2017 [facility] Metoprolol Tartrate (Lopressor) 25 Mg Tab, 50 Mg Oral Twice A Day Active [facility] 08/03/2017 [facility] Metoprolol Tartrate [...] # 90 tab, 0 Refill(s) Active 03/20/2017 [facility] Insulin Aspart 100 unit/ml - (High CD) 3 unit, SUB-Q, TID- Before Meals, Check blood sugar before breakfast, lunch, and dinner, and inject correction doses: Inject 3 unit if Sugar 150-199, Inject 6 units if Sugar 200- 249, Inject 9 units if Sugar 250-299, Inject 12 units if Sugar 300-349, In... Active 03/20/2017 [facility] Insulin Glargine 100 UNT/ML Injectable Solution 8 unit, SUB-Q, Bedtime, # 10 mL, 0 Refill(s) Active 03/20/2017 [facility] metoprolol tartrate 25 mg oral tablet 25 mg=1 tab, PO, BID, # 60 tab, 0 Refill(s) Active 03/20/2017 [facility] metoprolol tartrate 25 mg, 1 tab, Route: PO, Drug form: TAB, BID, Dosing Weight 35.5, kg, Start date: 03/16/17 17:00:00 CDT, Duration: 30 day, Stop date: 04/15/17 9:00:00 CDTNotes: (Same as: Lopressor) No Longer Active 03/16/2017 [facility] Potassium Chloride 10 mEq, 100 mL, Route: IVPB, Drug form: INJ, Q1H, Dosing Weight 35.5, kg, Total Dose=40 meq, Start date: 03/16/17 11:00:00 CDT, Duration: 4 doses or times, Stop date: 03/16/17 14:00:00 CDT, Peripheral LineNotes: Infuse at a rate of 10 mEq/hr. (Same as: KCL) Inactive 03/16/2017 [facility] potassium chloride 20 mEq oral tablet, extended release 40 mEq, 2 tab, Route: PO, Drug form: ERTAB, ONCE, Dosing Weight 35.5, kg, Start date: 03/16/17 10:11:00 CDT, Stop date: 03/16/17 10:11:00 CDTNotes: (Same as: K- Dur 20) "Do Not Crush" With food and full glass of water Inactive 03/16/2017 [facility] insulin glargine 8 unit, 0.08 mL, Route: SUB-Q, Drug form: SOLN, Bedtime, Start date: 03/15/17 21:00:00 CDT, Duration: 30 day, Stop date: 04/13/17 21:00:00 CDTNotes: (Same as: Lantus) Do not hold insulin without cont acting prescriber WASTE: F/P - Black; E - Municipal Trash Bin "single patient use only" No Longer Active 03/16/2017 [facility] sodium chloride 0.9% 1000 ml INJ 1,000 mL 1,000 mL, Rate: 125 ml/hr, Infuse over: 8 hr, Route: IV, Dosing Weight 35.5 kg, Total Volume: 1,000, Start date: 03/15/17 10:45:00 CDT, Duration: 30 day, Stop date: 04/14/17 10:44:00 CDT No Longer Active 03/15/2017 [facility] Metoprolol 5 mg, 5 mL, Route: IVP, Drug form: INJ, ONCE, Dosing Weight 35.5, kg, Start date: 03/15/17 10:45:00 CDT, Stop date: 03/15/17 10:45:00 CDTNotes: (Same as: Lopressor) Push over 2 minutes Inactive 03/15/2017 [facility] metoprolol tartrate 25 mg, 1 tab, Route: PO, Drug form: TAB, Q6H, Dosing Weight 35.5, kg, Priority: NOW, Start date: 03/15/17 10:37:00 CDT, Duration: 30 day, Stop date: 04/14/17 6:00:00 CDTNotes: (Same as: Lopressor) No Longer Active 03/15/2017 [facility] Levemir FlexPen 12 unit, Route: SUB-Q, Bedtime, Dosing Weight 35.5, kg, Start date: 03/14/17 22:52:00 CDT, Duration: 30 day, Stop date: 04/13/17 21:00:00 CDT No Longer Active 03/15/2017 [facility] insulin, isophane 5 unit, 0.05 mL, [...] Expires in days from Date Inactive 03/14/2017 [facility] insulin glargine 8 unit, Route: SUB-Q, Drug form: SOLN, Bedtime, Start date: 03/14/17 0:00:00 CDT, Duration: 30 day, Stop date: 04/12/17 21:00:00 CDTNotes: (Same as: Lantus) Do not hold insulin without contacting prescriber WASTE: F/P - Black; E - Municipal Trash Bin "single patient use only" No Longer Active 03/14/2017 [facility] Insulin, Aspart, Human 5 unit, 0.05 [...] Expires in days from Date Inactive 03/12/2017 [facility] Beneprotein 7 gm pkt 1 pkt, Route: PO, Drug Form: PWDR, Dosing Weight 35.5, kg, TID-Meals, Start date: 03/11/17 17:00:00 CDT, Duration: 30 day, Stop date: 04/10/17 12:00:00 CDTNotes: (Same as: Beneprotein) No Longer Active 03/11/2017 [facility] Insulin, Aspart, Human 3 unit, 0.03 [...] days from Date No Longer Active 03/11/2017 [facility] Amoxicillin 875 MG / Clavulanate 125 MG Oral Tablet [Augmentin 875-mg] 1 tab, Route: PO, Drug Form: TAB, Dosing Weight 35.5, kg, Q12H, Start date: 03/11/17 9:12:00 CDT, Stop date: 03/18/17 9:00:00 CDTNotes: With food. (Same as: Augmentin 875) No Longer Active 03/11/2017 [facility] Famotidine 20 mg, 1 tab, Route: PO, Drug form: TAB, Q12H, Dosing Weight 35.5, kg, PRN Heartburn, Start date: 03/11/17 9:08:00 CDT, Duration: 30 day, Stop date: 04/10/17 9:07:00 CDTNotes: (Same as: Pepcid) No Longer Active 03/11/2017 [facility] Insulin, Aspart, Human 5 unit, 0.05 [...] days from Date No Longer Active 03/11/2017 [facility] insulin, isophane 10 unit, Route: SUB-Q, [...] days from Date No Longer Active 03/11/2017 [facility] Dextrose 50% Syringe 25 gm, 50 mL, Route: IVP, Drug Form: INJ, Dosing Weight 35.5, kg, PRN, PRN Blood Glucose Results, Start date: 03/11/17 9:03:00 CDT, Duration: 30 day, Stop date: 04/10/17 9:02:00 CDT No Longer Active 03/11/2017 [facility] Glucagon 1 mg, Route: IM, Drug form: PDR/INJ, PRN, Dosing Weight 35.5, kg, PRN Blood Glucose Results, Start date: 03/11/17 9:03:00 CDT, Duration: 30 day, Stop date: 04/10/17 9:02:00 CDT No Longer Active 03/11/2017 [facility] Calcium Carbonate 500 MG Chewable Tablet 500 mg, 1 tab, Route: PO, Drug form: TAB, PRN, Dosing Weight 35.5, kg, PRN Abnormal Lab Result, FOR ICU USE ONLY, Start date: 03/11/17 8:36:00 CDT, Duration: 30 day, Stop date: 04/10/17 8:35:00 CDTNotes: 500mg elemental [id number] calcium carbonate. Contains 500mg elemental calcium. (Same As: OsCal 500) No Longer Active 03/11/2017 [facility] potassium phosphate 45 mmol, 15 mL, Route: IVPB, PRN, Dosing Weight 35.5, kg, PRN Abnormal Lab Result, Start date: 03/11/17 8:36:00 CDT, Duration: 30 day, Stop date: 04/10/17 8:35:00 CDT, FOR ICU USE ONLYNotes: (Same as: K Phosphate.) 1 mMol phoshate has 1.47 mEq potassium Infuse over 4 hours No Longer Active 03/11/2017 [facility] Magnesium Oxide 800 mg, 2 tab, Route: PO, Drug form: TAB, PRN, Dosing Weight 35.5, kg, PRN Abnormal Lab Result, FOR ICU USE ONLY, Start date: 03/11/17 8:36:00 CDT, Duration: 30 day, Stop date: 04/10/17 8:35:00 CDTNo renee: (Same as: Mag-Ox 400) Magnesium oxide [id number] elemental magnesium Dose=____mg magnesium oxide (___mg elemental magnesium) No Longer Active 03/11/2017 [facility] Calcium Gluconate 1 gm, 50 mL, Route: IVPB, Drug form: INJ, PRN, Dosing Weight 35.5, kg, PRN Abnormal Lab Result, Start date: 03/11/17 8:36:00 CDT, Duration: 30 day, Stop date: 04/10/17 8:35:00 CDT, FOR ICU USE ONLYNotes: WASTE: F/P - Sink; E - Municipal Trash Bin No Longer Active 03/11/2017 [facility] potassium phosphate-sodium phosphate 250 mg-280 mg-160 [...] water and stir. No Longer Active 03/11/2017 [facility] Magnesium Sulfate 2 gm, 50 mL, Route: IVPB, Drug form: INJ, PRN, Dosing Weight 35.5, kg, PRN Abnormal Lab Result, Start date: 03/11/17 8:36:00 CDT, Duration: 30 day, Stop date: 04/10/17 8:35:00 CDT, FOR ICU USE ONLYNotes: WASTE: F/P - Sink; E - Municipal Trash Bin No Longer Active 03/11/2017 [facility] sodium phosphate 45 mmol, 15 mL, Route: IVPB, PRN, Dosing Weight 35.5, kg, PRN Abnormal Lab Result, Start date: 03/11/17 8:36:00 CDT, Duration: 30 day, Stop date: 04/10/17 8:35:00 CDT, FOR ICU USE ONLY No Longer Active 03/11/2017 [facility] Potassium Chloride 20 mEq, 15 mL, Route: NJ, Drug form: LIQ, PRN, Dosing Weight 35.5, kg, PRN Abnormal Lab Result, Start date: 03/11/17 8:36:00 CDT, Duration: 30 day, Stop date: 04/10/17 8:35:00 CDT, FOR ICU USE ONLY No Longer Active 03/11/2017 [facility] Dextrose 50% Syringe 25 gm, 50 mL, Route: IVP, Drug Form: INJ, Dosing Weight 35.5, kg, PRN, PRN Blood Glucose Results, Start date: 03/11/17 1:31:00 CDT, Duration: 30 day, Stop date: 04/10/17 1:30:00 CDT Inactive 03/11/2017 [facility] Insulin regular 100 unit + sodium [...] Trash Bin (Do not shake) Inactive 03/11/2017 [facility] Magnesium Sulfate 2 gm, 50 mL, Route: IVPB, Drug form: INJ, ONCE, Dosing Weight 35.5, kg, Start date: 03/11/17 1:25:00 CDT, Duration: 2 hr, Stop date: 03/11/17 1:25:00 CDTNotes: WASTE: F/P - Sink; E - Municipal Trash Bin Inactive 03/11/2017 [facility] Dextrose 50% Syringe 25 gm, 50 mL, Route: IVP, Drug Form: INJ, Dosing Weight 35.5, kg, PRN, PRN Blood Glucose Results, Start date: 03/10/17 16:18:00 CDT, Duration: 30 day, Stop date: 04/09/17 16:17:00 CDT No Longer Active 03/10/2017 [facility] Insulin regular 100 unit + sodium [...] (Do not shake) No Longer Active 03/10/2017 [facility] Acetaminophen 325 MG / Hydrocodone Bitartrate 5 MG Oral Tablet [[place] 5/325] 1 tab, Route: PO, Drug Form: TAB, Dosing Weight 35.5, kg, Q6H, PRN Pain Score 1-5, Start date: 03/10/17 11:55:00 CDT, Duration: 30 day, Stop date: 04/09/17 11:54:00 CDTNotes: (Same as: [place] 325/5) Do not exceed 4gm/day of acetaminophen. No Longer Active 03/10/2017 [facility] Acetaminophen 325 MG / Hydrocodone Bitartrate 10 MG Oral Tablet [[place] 10/325] 1 tab, Route: PO, Drug Form: TAB, Dosing Weight 35.5, kg, Q6H, PRN Pain Score 6-10, Start date: 03/10/17 11:54:00 CDT, Duration: 30 day, Stop date: 04/09/17 11:53:00 CDTNotes: Do not exceed 4gm/day of acetaminophen. (Same as: [place] 325/10) No Longer Active 03/10/2017 [facility] Morphine 2 mg, 1 mL, Route: IVP, Drug form: SOLN, Q4H, Dosing Weight 35.5, kg, PRN Other -See Comment, Start date: 03/10/17 11:53:00 CDT, Duration: 30 day, Stop date: 04/09/17 11:52:00 CDT No Longer Active 03/10/2017 [facility] Insulin, Aspart, Human 8 unit, 0.08 [...] Expires in days from Date Inactive 03/10/2017 [facility] Dextrose 50% Syringe 25 gm, 50 mL, Route: IVP, Drug Form: INJ, Dosing Weight 35.5, kg, PRN, PRN Blood Glucose Results, Start date: 03/10/17 9:51:00 CDT, Duration: 30 day, Stop date: 04/09/17 9:50:00 CDT Inactive 03/10/2017 [facility] Insulin (regular) Titrate IV additive 100 [...] Trash Bin (Do not shake) Inactive 03/10/2017 [facility] Glucagon 1 mg, Route: IM, Drug form: PDR/INJ, PRN, Dosing Weight 35.5, kg, PRN Blood Glucose Results, Start date: 03/10/17 9:51:00 CDT, Duration: 30 day, Stop date: 04/09/17 9:50:00 CDT Inactive 03/10/2017 [facility] potassium phosphate 30 mmol, 10 mL, Route: IVPB, PRN, Dosing Weight 35.5, kg, PRN Abnormal Lab Result, Start date: 03/10/17 9:51:00 CDT, Duration: 30 day, Stop date: 04/09/17 9:50:00 CDTNotes: (Same as: K Phosphate.) 1 mMol phoshate has 1.47 mEq potassium Infuse over 4 hours Inactive 03/10/2017 [facility] Potassium Chloride 20 mEq, 100 mL, Route: IVPB, Drug form: INJ, PRN, Dosing Weight 35.5, kg, PRN Abnormal Lab Result, Via central line, Start date: 03/10/17 9:51:00 CDT, Duration: 30 day, Stop date: 04/09/17 9:50:00 CDTNotes: (Same as: KCL) Infuse no faster than 10 mEq/hr if given peripherally. Inactive 03/10/2017 [facility] Magnesium Sulfate 1 gm, 100 mL, Route: IVPB, Drug form: INJ, PRN, Dosing Weight 35.5, kg, PRN Abnormal Lab Result, Start date: 03/10/17 9:51:00 CDT, Duration: 30 day, Stop date: 04/09/17 9:50:00 CDTNotes: WASTE: F/P - Sink; E - Municipal Trash Bin Inactive 03/10/2017 [facility] D5NS 1,000 mL 1,000 mL, Rate: 250 ml/hr, Infuse over: 4 hr, Route: IV, Dosing Weight 35.5 kg, Total Volume: 1,000, Start date: 03/10/17 9:51:00 CDT, Duration: 30 day, Stop date: 04/09/17 9:50:00 CDT Inactive 03/10/2017 [facility] Saline Flush 0.9% 10 ml, Route: IVP, Drug Form: INJ, Dosing Weight 36.364, kg, Q12H, Start date: 03/10/17 9:00:00 CDT, Duration: 30 day, Stop date: 04/08/17 21:00:00 CDTNotes: (Same as: BD Posiflush) No Longer Active 03/10/2017 [facility] Famotidine 20 mg, 2 mL, Route: IVP, Drug form: INJ, Q12H, Dosing Weight 36.364, kg, Start date: 03/10/17 9:00:00 CDT, Duration: 30 day, Stop date: 04/08/17 21:00:00 CDTNotes: (Same as: Pepcid) Can be dilute in 5-10cc NS IVP: Slow IV push over at least 2 minutes. No Longer Active 03/10/2017 [facility] Propranolol 20 mg, 1 tab, Route: PO, Drug form: TAB, TID, Dosing Weight 35.5, kg, Start date: 03/10/17 9:00:00 CDT, Duration: 30 day, Stop date: 04/08/17 17:00:00 CDTNotes: Give with food. (Same as: Inderal) No Longer Active 03/10/2017 [facility] Mupirocin 0.02 MG/MG Topical Ointment 1 appl, Route: NASAL, Q12H, Drug form: OINT, Start date: 03/10/17 9:00:00 CDT, Duration: 5 day, Stop date: 03/14/17 21:00:00 CDT No Longer Active 03/10/2017 [facility] Morphine 1 mg, 0.5 mL, Route: IVP, Drug form: SOLN, Q2H, Dosing Weight 35.5, kg, PRN Pain Score 7-10, Start date: 03/10/17 8:56:00 CDT, Duration: 30 day, Stop date: 04/09/17 8:55:00 CDT No Longer Active 03/10/2017 [facility] Methimazole 10 mg, 1 tab, Route: PO, Drug form: TAB, Q8H, Dosing Weight 35.5, kg, Start date: 03/10/17 8:00:00 CDT, Duration: 30 day, Stop date: 04/09/17 0:00:00 CDT No Longer Active 03/10/2017 [facility] Amylases 622783 UNT / Endopeptidases 37221 UNT / Lipase 79482 UNT Enteric Coated Capsule [Creon 24] 1 cap, Route: PO, Drug Form: DRC, Dosing Weight 35.5, kg, TID-Before Meals, Start date: 03/10/17 7:30:00 CDT, Duration: 30 day, Stop date: 04/08/17 16:30:00 CDTNotes: Same as: Creon DRC 24 : lipase 2 4,000 units, protease 76,000 units, amylase 120,000 units No Longer Active 03/10/2017 [facility] Insulin, Aspart, Human 4 unit, 0.04 [...] Expires in days from Date Inactive 03/10/2017 [facility] Glucagon 1 mg, Route: IM, Drug form: PDR/INJ, PRN, Dosing Weight 35.5, kg, PRN Blood Glucose Results, Start date: 03/10/17 6:39:00 CDT, Duration: 30 day, Stop date: 04/09/17 6:38:00 CDT Inactive 03/10/2017 [facility] Dextrose 50% Syringe 12.5 gm, 25 mL, Route: IVP, Drug Form: INJ, Dosing Weight 35.5, kg, PRN, PRN Blood Glucose Results, Start date: 03/10/17 6:39:00 CDT, Duration: 30 day, Stop date: 04/09/17 6:38:00 CDT Inactive 03/10/2017 [facility] D5W 1/2NS 1,000 mL 1,000 mL, Rate: 250 ml/hr, Infuse over: 4 hr, Route: IV, Dosing Weight 35.5 kg, Total Volume: 1,000, Start date: 03/10/17 2:29:00 CDT, Duration: 30 day, Stop date: 04/09/17 2:28:00 CDT Inactive 03/10/2017 [facility] sodium chloride 0.45% 1000 ml INJ 1,000 mL 1,000 mL, Rate: 250 ml/hr, Infuse over: 4 hr, Route: IV, Dosing Weight 35.5 kg, Total Volume: 1,000, Start date: 03/10/17 2:29:00 CDT, Duration: 30 day, Stop date: 04/09/17 2:28:00 CDT Inactive 03/10/2017 [facility] Calcium Carbonate 500 MG Chewable Tablet 500 mg, Route: PO, PRN, Dosing Weight 36.364, kg, PRN Abnormal Lab Result, FOR ICU USE ONLY, Start date: 03/10/17 0:59:00 CDT, Duration: 30 day, Stop date: 04/09/17 0:58:00 CDT Inactive 03/10/2017 [facility] Calcium Gluconate 1 gm, Route: IVPB, PRN, Dosing Weight 36.364, kg, PRN Abnormal Lab Result, Start date: 03/10/17 0:59:00 CDT, Duration: 30 day, Stop date: 04/09/17 0:58:00 CDT, FOR ICU USE ONLY Inactive 03/10/2017 [facility] potassium phosphate 45 mmol, Route: IVPB, PRN, Dosing Weight 36.364, kg, PRN Abnormal Lab Result, Start date: 03/10/17 0:59:00 CDT, Duration: 30 day, Stop date: 04/09/17 0:58:00 CDT, FOR ICU USE ONLY Inactive 03/10/2017 [facility] Magnesium Sulfate 2 gm, Route: IVPB, PRN, Dosing Weight 36.364, kg, PRN Abnormal Lab Result, Start date: 03/10/17 0:59:00 CDT, Duration: 30 day, Stop date: 04/09/17 0:58:00 CDT, FOR ICU USE ONLY Inactive 03/10/2017 [facility] potassium phosphate-sodium phosphate 250 mg-280 mg-160 mg oral powder for reconstitution 2 pkt, Route: PO, Dosing Weight 36.364, kg, PRN, PRN Abnormal Lab Result, FOR ICU USE ONLY, Start date: 03/10/17 0:59:00 CDT, Duration: 30 day, Stop date: 04/09/17 0:58:00 CDT Inactive 03/10/2017 [facility] Magnesium Oxide 800 mg, Route: PO, PRN, Dosing Weight 36.364, kg, PRN Abnormal Lab Result, FOR ICU USE ONLY, Start date: 03/10/17 0:59:00 CDT, Duration: 30 day, Stop date: 04/09/17 0:58:00 CDT Inactive 03/10/2017 [facility] sodium phosphate 15 mmol, Route: IVPB, PRN, Dosing Weight 36.364, kg, PRN Abnormal Lab Result, Start date: 03/10/17 0:59:00 CDT, Duration: 30 day, Stop date: 04/09/17 0:58:00 CDT, FOR ICU USE ONLY Inactive 03/10/2017 [facility] Potassium Chloride 20 mEq, Route: NJ, Drug form: LIQ, PRN, Dosing Weight 36.364, kg, PRN Abnormal Lab Result, Start date: 03/10/17 0:59:00 CDT, Duration: 30 day, Stop date: 04/09/17 0:58:00 CDT, FOR ICU USE ONLY Inactive 03/10/2017 [facility] Saline Flush 0.9% 10 ml, Route: IVP, Drug Form: INJ, Dosing Weight 36.364, kg, PRN, PRN Line Flush, Start date: 03/10/17 0:59:00 CDT, Duration: 30 day, Stop date: 04/09/17 0:58:00 CDTNotes: (Same as: BD Posiflush) Inactive 03/10/2017 [facility] Nystatin 100 UNT/MG Topical Powder 1 appl, Route: TOP, PRN, Drug form: PWDR, PRN For Fungal Prophylaxis, Start date: 03/10/17 0:59:00 CDT, Duration: 30 day, Stop date: 04/09/17 0:58:00 CDTNotes: (Same as:Mycostatin, Nilstat) For external use only. No Longer Active 03/10/2017 [facility] Dextrose 50% Syringe 12.5 gm, 25 mL, Route: IVP, Drug Form: INJ, Dosing Weight 36.364, kg, PRN, PRN Blood Glucose Results, Start date: 03/10/17 0:53:00 CDT, Duration: 30 day, Stop date: 04/09/17 0:52:00 CDT Inactive 03/10/2017 [facility] Glucagon 1 mg, Route: IM, Drug form: PDR/INJ, PRN, Dosing Weight 36.364, kg, PRN Blood Glucose Results, Start date: 03/10/17 0:53:00 CDT, Duration: 30 day, Stop date: 04/09/17 0:52:00 CDT Inactive 03/10/2017 [facility] Magnesium Sulfate 1 gm, Route: IVPB, PRN, Dosing Weight 36.364, kg, PRN Abnormal Lab Result, Start date: 03/10/17 0:53:00 CDT, Duration: 30 day, Stop date: 04/09/17 0:52:00 CDT Inactive 03/10/2017 [facility] Potassium Chloride 10 mEq, Route: IVPB, PRN, Dosing Weight 36.364, kg, PRN Abnormal Lab Result, Via peripheral line, Start date: 03/10/17 0:53:00 CDT, Duration: 30 day, Stop date: 04/09/17 0:52:00 CDT Inactive 03/10/2017 [facility] potassium phosphate 30 mmol, Route: IVPB, PRN, Dosing Weight 36.364, kg, PRN Abnormal Lab Result, Start date: 03/10/17 0:53:00 CDT, Duration: 30 day, Stop date: 04/09/17 0:52:00 CDT Inactive 03/10/2017 [facility] D5NS 1,000 mL 1,000 mL, Rate: 250 ml/hr, Infuse over: 4 hr, Route: IV, Dosing Weight 36.364 kg, Total Volume: 1,000, Start date: 03/10/17 0:53:00 CDT, Duration: 30 day, Stop date: 04/09/17 0:52:00 CDT Inactive 03/10/2017 [facility] Insulin (regular) Titrate IV additive 100 unit + Sodium Chloride 0.9% IV 99 mL 99 mL, Rate: Titrate, Dosing Weight 36.364, kg, Route: IV, Total Volume: 99, Priority: Routine, Start Date: 03/10/17 0:53:00 CDT, Duration: 30 day, Stop date: 04/09/17 0:52:00 CDT, Replace Every: 24 hr Inactive 03/10/2017 [facility] Potassium Chloride 10 mEq, 100 mL, Route: IVPB, Drug form: INJ, PRN, Dosing Weight 36.364, kg, PRN Abnormal Lab Result, Via peripheral line, Start date: 03/10/17 0:52:00 CDT, Duration: 30 day, Stop date: 04/09/17 0:51:00 CDTNotes: Infuse at a rate of 10 mEq/hr. (Same as: KCL) Inactive 03/10/2017 [facility] Magnesium Sulfate 1 gm, 100 mL, Route: IVPB, Drug form: INJ, PRN, Dosing Weight 36.364, kg, PRN Abnormal Lab Result, Start date: 03/10/17 0:52:00 CDT, Duration: 30 day, Stop date: 04/09/17 0:51:00 CDTNotes: WASTE: F/P - Sink; E - Municipal Trash Bin Inactive 03/10/2017 [facility] potassium phosphate 30 mmol, 10 mL, Route: IVPB, PRN, Dosing Weight 36.364, kg, PRN Abnormal Lab Result, Start date: 03/10/17 0:52:00 CDT, Duration: 30 day, Stop date: 04/09/17 0:51:00 CDTNotes: (Same as: K Phosphate.) 1 mMol phoshate has 1.47 mEq potassium Infuse over 4 hours Inactive 03/10/2017 [facility] D5NS 1,000 mL 1,000 mL, Rate: 250 ml/hr, Infuse over: 4 hr, Route: IV, Dosing Weight 36.364 kg, Total Volume: 1,000, Start date: 03/10/17 0:52:00 CDT, Duration: 30 day, Stop date: 04/09/17 0:51:00 CDT Inactive 03/10/2017 [facility] Insulin (regular) Titrate IV additive 100 [...] Trash Bin (Do not shake) Inactive 03/10/2017 [facility] Dextrose 50% Syringe 12.5 gm, 25 mL, Route: IVP, Drug Form: INJ, Dosing Weight 36.364, kg, PRN, PRN Blood Glucose Results, Start date: 03/10/17 0:52:00 CDT, Duration: 30 day, Stop date: 04/09/17 0:51:00 CDT Inactive 03/10/2017 [facility] Glucagon 1 mg, Route: IM, Drug form: PDR/INJ, PRN, Dosing Weight 36.364, kg, PRN Blood Glucose Results, Start date: 03/10/17 0:52:00 CDT, Duration: 30 day, Stop date: 04/09/17 0:51:00 CDT Inactive 03/10/2017 [facility] morphine Sulfate 2 mg, 1 mL, Route: IVP, Drug form: INJ, ONCE, Dosing Weight 36.364, kg, Start date: 03/10/17 0:50:00 CDT, Stop date: 03/10/17 0:50:00 CDTNotes: (Same as:MORPhine Sulfate) Inactive 03/10/2017 [facility] Morphine 2 mg, 1 mL, Route: IVP, Drug form: SOLN, ONCE, Dosing Weight 36.364, kg, Start date: 03/10/17 0:28:00 CDT, Stop date: 03/10/17 0:28:00 CDT Inactive 03/10/2017 [facility] Enoxaparin 40 mg, 0.4 mL, Route: SUB-Q, Drug form: INJ, [id number], Dosing Weight 36.364, kg, Start date: 03/10/17 0:00:00 CDT, Duration: 30 day, Stop date: 04/08/17 0:00:00 CDTNotes: (Same as: Lovenox) No Longer Active 03/10/2017 [facility] Merrem 500 mg, Route: IVPB, ONCE, Dosing Weight 36.364, kg, Priority: STAT, Start date: 03/09/17 23:34:00 CDT, Duration: 1 doses or times, Stop date: 03/09/17 23:34:00 CDT, ABX Indication: Urinary Tract Infect ionNotes: Same as Merrem MEDICATION WASTE Product Size: 500 mg Product Wasted: ___ mg No Longer Active 03/10/2017 [facility] Metoprolol 2.5 mg, 2.5 mL, Route: IVP, Drug form: INJ, ONCE, Dosing Weight 36.364, kg, Priority: STAT, Start date: 03/09/17 20:30:00 CDT, Stop date: 03/09/17 20:30:00 CDTNotes: (Same as: Lopressor) Push over 2 minutes Inactive 03/10/2017 [facility] esmolol 2,500 mg, 250 mL, Rate: Titrate, Start Dose: 50 microgram/kg/min, Titration: 50 microgram/kg/min every 15 minutes, Goal(s): HR Notes: (Same as: Brevibloc) 10 mg/ml conc. No Longer Active 03/10/2017 [facility] Zofran 4 mg, 2 mL, Route: IVP, Drug form: INJ, ONCE, Dosing Weight 36.364, kg, Priority: STAT, Start date: 03/09/17 20:23:00 CDT, Stop date: 03/09/17 20:23:00 CDTNotes: (Same as: Zofran) MEDICATION WASTE Product Size: 4 mg Product Wasted: ___ mg No Longer Active 03/10/2017 [facility] Morphine 2 mg, 1 mL, Route: IVP, Drug form: INJ, ONCE, Dosing Weight 36.364, kg, Priority: STAT, Start date: 03/09/17 20:23:00 CDT, Stop date: 03/09/17 20:23:00 CDTNotes: (Same as:MORPhine Sulfate) Inactive 03/10/2017 [facility] NS (Bolus) IV 2,000 mL, 2,000 ml/hr, Infuse Over: 1 hr, Route: IV, 2,000, Drug form: INJ, ONCE, Priority: STAT, Dosing Weight 36.364 kg, Start date: 03/09/17 20:22:00 CDT, Duration: 1 doses or times, Stop date: 20:22:00 CDT Inactive 03/10/2017 [facility] Saline Flush 0.9% 10 mL, Route: IVP, Drug Form: INJ, Dosing Weight 44.9, kg, PRN, PRN Line Flush, Start date: 03/09/17 20:01:00 CDT, Duration: 30 day, Stop date: 04/08/17 20:00:00 CDTNotes: Same as: BD Posiflush Sterile No Longer Active 03/10/2017 [facility] Fluconazole 100 MG Oral Tablet [Diflucan] 100 mg=1 tab, PO, Daily, X 10 day, # 10 tab, 0 Refill(s), Pharmacy: [id number] Active 12/29/2016 [facility] glimepiride 4 MG Oral Tablet [Amaryl] 4 mg=1 tab, PO, Breakfast, # 30 tab, 0 Refill(s), Pharmacy: [facility] [id number] Active 12/29/2016 [facility] Amoxicillin 500 MG / Clavulanate 125 MG Oral Tablet [Augmentin 500-mg] 1 tab, PO, Q8H, # 21 tab, 0 Refill(s), Pharmacy: [facility] [id number] No Longer Active 12/29/2016 [facility] Acetaminophen 300 MG / Codeine Phosphate 30 MG Oral Tablet [Tylenol with Codeine #3] 1 - 2 tab, PO, Q4H, PRN Pain, X 4 day, # 36 tab, 0 Refill(s) Active 12/29/2016 [facility] Phenazopyridine hydrochloride 200 MG Oral Tablet [Pyridium] 200 mg=1 tab, PO, TID, PRN Dysuria, X 2 day, # 6 tab, 0 Refill(s), Pharmacy: [facility] [id number] No Longer Active 12/29/2016 [facility] ondansetron (ANES) Route: IV, Drug form: INJ, ONCE, Stop date: 12/28/16 13:23:00 CDT Inactive 12/28/2016 [facility] metoclopramide (ANES) Route: IV, Drug form: INJ, ONCE, Stop date: 12/28/16 13:23:00 CDT Inactive 12/28/2016 [facility] lidocaine (ANES) Route: IV, Drug form: INJ, ONCE, Stop date: 12/28/16 13:23:00 CDT Inactive 12/28/2016 [facility] propofol (ANES) Route: IV, Drug form: INJ, ONCE, Stop date: 12/28/16 13:23:00 CDT Inactive 12/28/2016 [facility] fentaNYL (ANES) Route: IV, Drug form: INJ, ONCE, Stop date: 12/28/16 13:23:00 CDT Inactive 12/28/2016 [facility] midazolam (ANES) Route: IV, Drug form: SOLN, ONCE, Stop date: 12/28/16 13:23:00 CDT Inactive 12/28/2016 [facility] sodium chloride 0.9% 1000 ml INJ (ANES) Route: IV, Total Volume: 1,000, Start date: 12/28/16 12:44:00 CDT, Stop date: 12/28/16 13:44:00 CDT Inactive 12/28/2016 [facility] Klor-Con 40 mEq, 2 tab, Route: PO, Drug form: ERTAB, ONCE, Dosing Weight 44.9, kg, Start date: 12/27/16 11:47:00 CDT, Stop date: 12/27/16 11:47:00 CDTNotes: (Same as: K-Dur 20) "Do Not Crush" With food and full glass of water Inactive 12/27/2016 [facility] insulin, isophane 5 unit, 0.05 mL, Route: SUB-Q, Drug form: INJ, Daily, Dosing Weight 44.9, kg, Start date: 12/27/16 9:00:00 CDT, Duration: 30 day, Stop date: 01/25/17 9:00:00 CDTNotes: Roll in palms of hands gently; Do not shake vigorously. (Same as: NovoLIN N, Humulin N) Do not hold insulin without contacting prescriber "single patient use only" WASTE: F/P - Black; E - oohilove Trash Bin Stable for 14 days at room temperature Expires in days from Date No Longer Active 12/27/2016 [facility] Inderal 20 mg, 2 tab, Route: PO, Drug form: TAB, QID, Dosing Weight 44.9, kg, Start date: 12/27/16 9:00:00 CDT, Duration: 30 day, Stop date: 01/25/17 21:00:00 CDTNotes: Give with food. (Same as: Inderal) No Longer Active 12/27/2016 [facility] potassium phosphate + sodium chloride 0.9% INJ 250 mL 15 mmol, 5 mL, Route: IVPB, PRN, Dosing Weight 44.9, kg, PRN Abnormal Lab Result, Start date: 12/27/16 8:05:00 CDT, Duration: 30 day, Stop date: 01/26/17 8:04:00 CDT, FOR ICU USE ONLYNotes: (Same as: K Phosphate.) 1 mMol phoshate has 1.47 mEq potassium Infuse over 4 hours No Longer Active 12/27/2016 [facility] potassium chloride 20 mEq, 100 mL, Route: IVPB, Drug form: INJ, PRN, Dosing Weight 44.9, kg, PRN Abnormal Lab Result, Via central line, Start date: 12/27/16 8:05:00 CDT, Duration: 30 day, Stop date: 01/26/17 8:04:00 CDT, FOR ICU USE ONLYNotes: (Same as: KCL) Infuse no faster than 10 mEq/hr if given peripherally. No Longer Active 12/27/2016 [facility] sodium phosphate + D5W 250 mL 15 mmol, 5 mL, Route: IVPB, PRN, Dosing Weight 44.9, kg, PRN Abnormal Lab Result, Start date: 12/27/16 8:05:00 CDT, Duration: 30 day, Stop date: 01/26/17 8:04:00 CDT, FOR ICU USE ONLY No Longer Active 12/27/2016 [facility] sodium phosphate + D5W 500 mL 45 mmol, 15 mL, Route: IVPB, PRN, Dosing Weight 44.9, kg, PRN Abnormal Lab Result, Start date: 12/27/16 8:05:00 CDT, Duration: 30 day, Stop date: 01/26/17 8:04:00 CDT, FOR ICU USE ONLY No Longer Active 12/27/2016 [facility] Calcium Carbonate 500 MG Chewable Tablet 1,000 mg, 2 tab, Route: CHEW, Drug form: CHEWTAB, PRN, Dosing Weight 44.9, kg, PRN Abnormal Lab Result, FOR ICU USE ONLY, Start date: 12/27/16 8:05:00 CDT, Duration: 30 day, Stop date: 01/26/17 8:04:00 CDTNotes: (Same As: Tums) Calcium Carbonate 500 yx=264 mg elemental calcium Dose= mg calcium carbonate ( mg elemental calcium) No Longer Active 12/27/2016 [facility] Magnesium Sulfate 2 gm, 50 mL, Route: IVPB, Drug form: INJ, PRN, Dosing Weight 44.9, kg, PRN Abnormal Lab Result, Start date: 12/27/16 8:05:00 CDT, Duration: 30 day, Stop date: 01/26/17 8:04:00 CDT, FOR ICU USE ONLYNotes: WASTE: F/P - Sink; E - Municipal Trash Bin No Longer Active 12/27/2016 [facility] potassium phosphate-sodium phosphate 250 mg-280 mg-160 [...] water and stir. No Longer Active 12/27/2016 [facility] Magnesium Oxide 800 mg, 2 tab, Route: PO, Drug form: TAB, PRN, Dosing Weight 44.9, kg, PRN Abnormal Lab Result, FOR ICU USE ONLY, Start date: 12/27/16 8:05:00 CDT, Duration: 30 day, Stop date: 01/26/17 8:04:00 CDTNo renee: (Same as: Mag-Ox 400) Magnesium oxide [id number] elemental magnesium Dose=____mg magnesium oxide (___mg elemental magnesium) No Longer Active 12/27/2016 [facility] Calcium Gluconate 1 gm, 50 mL, Route: IVPB, Drug form: INJ, PRN, Dosing Weight 44.9, kg, PRN Abnormal Lab Result, Start date: 12/27/16 8:05:00 CDT, Duration: 30 day, Stop date: 01/26/17 8:04:00 CDT, FOR ICU USE ONLYNotes: WASTE: F/P - Sink; E - Municipal Trash Bin No Longer Active 12/27/2016 [facility] Methimazole 10 mg, 2 tab, Route: PO, Drug form: TAB, Q8H, Dosing Weight 44.9, kg, Start date: 12/27/16 8:00:00 CDT, Duration: 30 day, Stop date: 01/26/17 0:00:00 CDT No Longer Active 12/27/2016 [facility] Amylases 475700 UNT / Endopeptidases 81418 UNT / Lipase 62002 UNT Enteric Coated Capsule [Creon 24] 1 cap, Route: PO, Drug Form: DRC, Dosing Weight 44.9, kg, TID-Before Meals, Start date: 12/27/16 7:30:00 CDT, Duration: 30 day, Stop date: 01/25/17 16:30:00 CDTNotes: Same as: Santiago BUSTILLOS 24 : lipase 2 4,000 units, protease 76,000 units, amylase 120,000 units No Longer Active 12/27/2016 [facility] potassium chloride 40 mEq, 2 tab, Route: PO, Drug form: ERTAB, ONCE, Dosing Weight 44.9, kg, Start date: 12/27/16 6:21:00 CDT, Stop date: 12/27/16 6:21:00 CDTNotes: (Same as: K-Dur 20) "Do Not Crush" With food and full glass of water Inactive 12/27/2016 [facility] Zosyn 3.375 gm, Route: IVPB, ABXQ8H, Dosing Weight 44.9, kg, Start date: 12/27/16 4:00:00 CDT, Duration: 3 day, Stop date: 12/29/16 20:00:00 CDT, ABX Indication: Urinary Tract InfectionNotes: (Same as: Zosyn) Dosing based on Piperacillin component MEDICATION WASTE Product Size: 3375 mg Product Wasted: ___ mg No Longer Active 12/27/2016 [facility] Insulin, Aspart, Human 3 unit, 0.03 [...] days from Date No Longer Active 12/27/2016 [facility] Glucagon 1 mg, Route: IM, Drug form: PDR/INJ, PRN, Dosing Weight 44.9, kg, PRN Blood Glucose Results, Start date: 12/27/16 3:37:00 CDT, Duration: 30 day, Stop date: 01/26/17 3:36:00 CDT No Longer Active 12/27/2016 [facility] Dextrose 50% Syringe 25 gm, 50 mL, Route: IVP, Drug Form: INJ, Dosing Weight 44.9, kg, PRN, PRN Blood Glucose Results, Start date: 12/27/16 3:37:00 CDT, Duration: 30 day, Stop date: 01/26/17 3:36:00 CDT No Longer Active 12/27/2016 [facility] Sodium Chloride 0.154 MEQ/ML Injectable Solution 1,000 mL, Rate: 125 ml/hr, Infuse over: 8 hr, Route: IV, Dosing Weight 44.9 kg, Total Volume: 1,000, Start date: 12/27/16 3:35:00 CDT, Duration: 30 day, Stop date: 01/26/17 3:34:00 CDT No Longer Active 12/27/2016 [facility] Hydromorphone 0.5 mg, 0.5 mL, Route: IVP, Drug form: INJ, Q4H, Dosing Weight 44.9, kg, PRN Pain Score 7-10, Start date: 12/27/16 3:06:00 CDT, Duration: 30 day, Stop date: 01/26/17 3:05:00 CDT No Longer Active 12/27/2016 [facility] Ondansetron 4 mg, 2 mL, Route: IVP, Drug form: INJ, Q6H, Dosing Weight 44.9, kg, PRN Nausea & Vomiting, Start date: 12/27/16 3:06:00 CDT, Duration: 30 day, Stop date: 01/26/17 3:05:00 CDTNotes: (Same as: Zofran) MEDICATION WASTE Product Size: 4 mg Product Wasted: ___ mg No Longer Active 12/27/2016 [facility] Zofran 4 mg, 2 mL, Route: IV, Drug form: INJ, Q4H, Dosing Weight 44.9, kg, PRN as needed for nausea/vomiting, Start date: 12/27/16 2:58:00 CDT, Duration: 30 day, Stop date: 01/26/17 2:57:00 CDTNotes: (Same as: Zofran) MEDICATION WASTE Product Size: 4 mg Product Wasted: ___ mg Inactive 12/27/2016 [facility] Dilaudid 0.5 mg, 0.5 mL, Route: IV, Drug form: INJ, Q4H, Dosing Weight 44.9, kg, PRN Pain Score 6-10, Start date: 12/27/16 2:58:00 CDT, Duration: 30 day, Stop date: 01/26/17 2:57:00 CDT Inactive 12/27/2016 [facility] Meclizine Hcl 12.5 Mg Tablet, 25 Mg Oral Daily Active 12/26/2016 [facility] Metoprolol Succinate 25 Mg Tab.er.24h, 25 Mg Oral Daily Active 12/26/2016 [facility] Pantoprazole Sodium (Protonix) 40 Mg Tablet.dr, 40 Mg Oral Daily Active 12/26/2016 [facility] Blood Glucose Test Strips 1 box, TOP, Before Breakfast, # 100 strip, 0 Refill(s) Active 09/21/2016 [facility] Blood Glucose Monitor 1 ea, MISC, Daily, Use as directed., # 1 ea, 0 Refill(s) Active 09/21/2016 [facility] insulin isophane (NPH) 100 units/mL human recombinant subcutaneous suspension 5 unit, SUB-Q, Daily, # 10 mL, 0 Refill(s), Pharmacy: [facility] [id number] Active 09/21/2016 [facility] [place] for Injection Syringe Misc/Other 1 ea, MISC, Q30D, # 6 ea, 1 Refill(s) Active 09/21/2016 [facility] Amylases 320661 UNT / Endopeptidases 97308 UNT / Lipase 37922 UNT Enteric Coated Capsule [Creon 24] 1 cap, PO, TID-Before Meals, # 90 cap, 0 Refill(s), Pharmacy: [facility] [id number] Active 09/21/2016 [facility] propranolol 20 mg oral tablet 20 mg=1 tab, PO, TID, # 90 tab, 0 Refill(s), Pharmacy: [facility] [id number] Active 09/21/2016 [facility] Lancets 1 box, MISC, Daily, # 1 box, 0 Refill(s) Active 09/21/2016 [facility] Lancet Device 1 box, MISC, Daily, # 1 ea, 0 Refill(s) Active 09/21/2016 [facility] methimazole 10 mg oral tablet 10 mg, PO, Q8H, # 90 tab, 0 Refill(s), Pharmacy: [facility] [id number] Active 09/21/2016 [facility] Insulin Syringes (U 100) 1 syr, SUB-Q, ONCALL, # 100 syr, 0 Refill(s) Active 09/21/2016 [facility] Amylases 413245 UNT / Endopeptidases 81942 UNT / Lipase 98865 UNT Enteric Coated Capsule [Creon 24] 1 cap, Route: PO, Drug Form: DRC, Dosing Weight 41.818, kg, TID-Before Meals, Start date: 09/21/16 7:30:00 DOG BEHAVIORIST, Duration: 30 day, Stop date: 10/20/16 16:30:00 CDTNotes: Same as: Creon DRC 24 : lipase 24,000 units, protease 76,000 units, amylase 120,000 units No Longer Active 09/21/2016 [facility] potassium chloride 40 mEq, 2 tab, Route: PO, Drug form: ERTAB, ONCE, Dosing Weight 41.818, kg, PRN Abnormal Lab Result, Electrolyte replacement, Start date: 09/20/16 18:00:00 CSTNotes: (Same as: K-Dur 20) "Do Not Crush" With food and full glass of water No Longer Active 09/21/2016 [facility] potassium chloride 40 mEq, 2 tab, Route: PO, Drug form: ERTAB, ONCE, Dosing Weight 41.818, kg, PRN Abnormal Lab Result, Electrolyte replacement, Start date: 09/20/16 17:00:00 CSTNotes: (Same as: K-Dur 20) "Do Not Crush" With food and full glass of water No Longer Active 09/20/2016 [facility] Questran 4 gm, 1 pkt, Route: PO, Drug form: PDR/REC, Daily, Dosing Weight 41.818, kg, Priority: NOW, Start date: 09/20/16 14:26:00 DOG BEHAVIORIST, Duration: 30 day, Stop date: 10/20/16 9:00:00 CDTNotes: (Same As: Questran) No Longer Active 09/20/2016 [facility] potassium chloride 40 mEq, 2 tab, Route: PO, Drug form: ERTAB, Q2H, Dosing Weight 41.818, kg, Start date: 09/20/16 12:00:00 DOG BEHAVIORIST, Duration: 2 doses or times, Stop date: 09/20/16 14:00:00 CSTNotes: (Same as: Emory Hess 20) "Do Not Crush" With food and full glass of water Inactive 09/20/2016 [facility] potassium chloride 40 mEq, Route: NG, Drug form: LIQ, ONCE, Dosing Weight 41.818, kg, Start date: 09/20/16 11:36:00 DOG BEHAVIORIST, Stop date: 09/20/16 11:36:00 DOG BEHAVIORIST Inactive 09/20/2016 [facility] D5W 1,000 mL 1,000 mL, Rate: 50 ml/hr, Infuse over: 20 hr, Route: IV, Dosing Weight 41.818 kg, Total Volume: 1,000, Start date: 09/19/16 6:38:00 DOG BEHAVIORIST, Duration: 12 hr, Stop date: 09/19/16 18:37:00 DOG BEHAVIORIST Inactive 09/19/2016 [facility] Dextrose 50% Syringe 25 gm, 50 mL, Route: IVP, Drug Form: INJ, Dosing Weight 41.818, kg, PRN, PRN Blood Glucose Results, Start date: 09/18/16 18:06:00 DOG BEHAVIORIST, Duration: 30 day, Stop date: 10/18/16 19:05:00 CDT No Longer Active 09/19/2016 [facility] Glucagon 1 mg, Route: IM, Drug form: PDR/INJ, PRN, Dosing Weight 41.818, kg, PRN Blood Glucose Results, Start date: 09/18/16 18:06:00 DOG BEHAVIORIST, Duration: 30 day, Stop date: 10/18/16 19:05:00 CDT No Longer Active 09/19/2016 [facility] Insulin, Aspart, Human 1 unit, 0.01 mL, Route: SUB-Q, Drug form: SOLN, TID-Before Meals, Dosing Weight 41.818, kg, PRN Blood Glucose Results, Start date: 09/18/16 18:06:00 DOG BEHAVIORIST, Duration: 30 day, Stop date: 10/18/16 18:05:00 CDTNotes: Roll in palms of hands gently; Do not shake vigorously. (Same as: NovoLOG) "single patient use only" WASTE: F/P - Black; E - Municipal Trash Bin Stable for 28 days at room temperature. Expires in days from Date No Longer Active 09/19/2016 [facility] potassium chloride 40 mEq, 2 tab, Route: PO, Drug form: ERTAB, ONCE, Dosing Weight 41.818, kg, Start date: 09/18/16 13:45:00 DOG BEHAVIORIST, Stop date: 09/18/16 13:45:00 CSTNotes: (Same as: K-Dur 20) "Do Not Crush" With food and full glass of water Inactive 09/18/2016 [facility] Cathflo Activase 2 mg injection 2 mg, 2 mL, Route: INJ, Drug form: INJ, ONCE, Dosing Weight 41.364, kg, Start date: 09/15/16 16:58:00 DOG BEHAVIORIST, Stop date: 09/15/16 16:58:00 CSTNotes: "Syringe for catheter clearance or interventional radiology use. Reconstitute each vial of Cathflo Activase with 2.2 ml Sterile Water resulting in a 1 mg/ml solution. Stable for 8 hours only. (Same as: Activase) MEDICATION WASTE Product Size: 2 mg Product Wasted: ___ mg Inactive 09/15/2016 [facility] Magnesium Sulfate 2 gm, 50 mL, Route: IVPB, Drug form: INJ, ONCE, Dosing Weight 41.364, kg, Total dose=2 gm, Start date: 09/15/16 12:18:00 DOG BEHAVIORIST, Duration: 1 doses or times, Stop date: 09/15/16 12:18:00 CSTNotes: WASTE: F/P - Sink; E - Municipal Trash Bin Inactive 09/15/2016 [facility] potassium chloride 20 mEq, 100 mL, Route: IVPB, Drug form: INJ, Q2H, Start date: 09/15/16 8:00:00 DOG BEHAVIORIST, Duration: 2 doses or times, Stop date: 09/15/16 10:00:00 CSTNotes: (Same as: KCL) Infuse no faster than 10 mEq/hr if given peripherally. Inactive 09/15/2016 [facility] potassium chloride 40 mEq, Route: IV, ONCE, Dosing Weight 41.364, kg, Start date: 09/15/16 7:03:00 DOG BEHAVIORIST, Stop date: 09/15/16 7:03:00 DOG BEHAVIORIST Inactive 09/15/2016 [facility] Potassium Chloride 1.33 MEQ/ML Oral Solution 40 mEq, 30 mL, Route: PO, Drug form: LIQ, ONCE, Dosing Weight 41.364, kg, Start date: 09/15/16 7:02:00 DOG BEHAVIORIST, Stop date: 09/15/16 7:02:00 CSTNotes: (Same as: Potassium Chloride) Inactive 09/15/2016 [facility] alteplase 2 mg injection 5 mg + empty container 1 ea + sodium chloride 0.9% INJ 40 mL Route: MISC, Drug form: INJ, ONCE, Dosing Weight 41.364, kg, mix 5 mg tPa in 40 mL normal saline and instill in lower abdominal drainage catheter. clamp tube for 1 hour, then open to bag drainage., Priority: STAT, Start date: 09/14/16 17:07:00 DOG BEHAVIORIST, St...Notes: "Syringe for catheter clearance or interventional radiology use. Reconstitute each vial of Cathflo Activase with 2.2 ml Sterile Water resulting in a 1 mg/ml solution. Stable for 8 hours only. (Same as: Activase) MEDICATION WASTE Product Size: 2 mg Product Wasted: ___ mg Inactive 09/14/2016 [facility] dexamethasone (ANES) Route: IV, Drug form: INJ, ONCE, Stop date: 09/13/16 12:49:00 DOG BEHAVIORIST Inactive 09/13/2016 [facility] ceFAZolin (ANES) Route: IV, Drug form: INJ, ONCE, Stop date: 09/13/16 12:49:00 DOG BEHAVIORIST Inactive 09/13/2016 [facility] ondansetron (ANES) Route: IV, Drug form: INJ, ONCE, Stop date: 09/13/16 12:46:00 DOG BEHAVIORIST Inactive 09/13/2016 [facility] famotidine (ANES) Route: IV, Drug form: INJ, ONCE, Stop date: 09/13/16 12:46:00 DOG BEHAVIORIST Inactive 09/13/2016 [facility] succinylcholine (ANES) Route: IV, Drug form: INJ, ONCE, Stop date: 09/13/16 12:46:00 DOG BEHAVIORIST Inactive 09/13/2016 [facility] lidocaine (ANES) Route: IV, Drug form: INJ, ONCE, Stop date: 09/13/16 12:41:00 DOG BEHAVIORIST Inactive 09/13/2016 [facility] fentaNYL (ANES) Route: IV, Drug form: INJ, ONCE, Stop date: 09/13/16 12:41:00 DOG BEHAVIORIST Inactive 09/13/2016 [facility] propofol (ANES) Route: IV, Drug form: INJ, ONCE, Stop date: 09/13/16 12:41:00 DOG BEHAVIORIST Inactive 09/13/2016 [facility] rocuronium (ANES) Route: IV, Drug form: INJ, ONCE, Stop date: 09/13/16 12:41:00 DOG BEHAVIORIST Inactive 09/13/2016 [facility] midazolam (ANES) Route: IV, Drug form: SOLN, ONCE, Stop date: 09/13/16 12:41:00 DOG BEHAVIORIST Inactive 09/13/2016 [facility] LR 1000 mL INJ (ANES) Route: IV, Total Volume: 1,000, Start date: 09/13/16 11:51:00 DOG BEHAVIORIST, Stop date: 09/13/16 12:51:00 DOG BEHAVIORIST Inactive 09/13/2016 [facility] Lactated Ringers Injection IV 1000 mL 1,000 mL, Rate: 40 ml/hr, Infuse over: 25 hr, Route: IV, Dosing Weight 41.364 kg, Total Volume: 1,000, Start date: 09/13/16 10:54:00 DOG BEHAVIORIST, Duration: 1 doses or times, Stop date: 09/14/16 11:53:00 DOG BEHAVIORIST Inactive 09/13/2016 [facility] Dilaudid 0.5 mg, 0.5 mL, Route: IV, Drug form: INJ, Q4H, Dosing Weight 41.364, kg, PRN Pain Score 6-10, Start date: 09/12/16 13:52:00 DOG BEHAVIORIST, Duration: 30 day, Stop date: 10/12/16 13:51:00 CDT No Longer Active 09/12/2016 [facility] potassium chloride 20 mEq, 100 mL, Route: IVPB, Drug form: INJ, ONCE, Dosing Weight 41.364, kg, Start date: 09/12/16 12:07:00 DOG BEHAVIORIST, Stop date: 09/12/16 12:07:00 CSTNotes: (Same as: KCL) Infuse no faster than 10 mEq/hr if given peripherally. Inactive 09/12/2016 [facility] Vancomycin 1 gm, Route: IV, ONCE, Dosing Weight 41.364, kg, Start date: 09/12/16 10:55:00 DOG BEHAVIORIST, Stop date: 09/12/16 10:55:00 CSTNotes: TIME CRITICAL MEDICATION (Same As: Vancocin) Infusion rate 2001 mg: infuse ov er 2.5 hours MEDICATION WASTE Product Size: 1000 mg Product Wasted: ___ mg Inactive 09/12/2016 [facility] cefepime 2 gm, Route: IV, Drug form: INJ, ONCE, Dosing Weight 41.364, kg, Start date: 09/12/16 10:55:00 DOG BEHAVIORIST, Stop date: 09/12/16 10:55:00 CSTNotes: (Same as: Maxipime) MEDICATION WASTE Product Size: 2000 mg Product Wasted: ___ mg tolerated Cefepime during 08/23/16 admission at [facility] for several doses as per MD and as documented in e-MAR Inactive 09/12/2016 [facility] 72 HR Scopolamine 0.0139 MG/HR Transdermal Patch 1 patch, Route: TOP, Drug Form: ERFILM, Dosing Weight 41.364, kg, ONCE, Apply behind ear. Avoid use in elderly., Start date: 09/12/16 10:40:00 DOG BEHAVIORIST, Stop date: 09/12/16 10:40:00 DOG BEHAVIORIST Inactive 09/12/2016 [facility] Diphenhydramine 12.5 mg, Route: IVP, Drug form: INJ, Q6H, Dosing Weight 41.364, kg, PRN Itching, Start date: 09/12/16 10:40:00 DOG BEHAVIORIST, Duration: 30 day, Stop date: 10/12/16 10:39:00 CDT Inactive 09/12/2016 [facility] Promethazine 6.25 mg, Route: IVPB, ONCE, Dosing Weight 41.364, kg, PRN Nausea & Vomiting, Start date: 09/12/16 10:40:00 DOG BEHAVIORIST Inactive 09/12/2016 [facility] Meperidine 12.5 mg, Route: IVP, Q30Min, Dosing Weight 41.364, kg, PRN Other -See Comment, For shivering, Start date: 09/12/16 10:40:00 DOG BEHAVIORIST, Duration: 2 doses or times, Stop date: Limited # of times Inactive 09/12/2016 [facility] Ondansetron 4 mg, Route: IVP, ONCE, Dosing Weight 41.364, kg, PRN Nausea & Vomiting, Start date: 09/12/16 10:40:00 DOG BEHAVIORIST Inactive 09/12/2016 [facility] Oxycodone 5 mg, Route: PO, Drug form: TAB, Q4H, Dosing Weight 41.364, kg, PRN Pain Score 4-6, Start date: 09/12/16 10:40:00 DOG BEHAVIORIST, Duration: 30 day, Stop date: 10/12/16 10:39:00 CDT Inactive 09/12/2016 [facility] Hydromorphone 0.5 mg, Route: IVP, Q5Min, Dosing Weight 41.364, kg, PRN Pain Score 7-10, Start date: 09/12/16 10:40:00 DOG BEHAVIORIST, Duration: 4 doses or times, Stop date: Limited # of times Inactive 09/12/2016 [facility] Morphine 4 mg, Route: IVP, Q5Min, Dosing Weight 41.364, kg, PRN Pain Score 7-10, Start date: 09/12/16 10:40:00 DOG BEHAVIORIST, Duration: 3 doses or times, Stop date: Limited # of times Inactive 09/12/2016 [facility] Flumazenil 0.2 mg, Route: IVP, PRN, Dosing Weight 41.364, kg, PRN Benzodiazepine Reversal, Initial dose, Start date: 09/12/16 10:40:00 DOG BEHAVIORIST, Duration: 30 day, Stop date: 10/12/16 11:39:00 CDT Inactive 09/12/2016 [facility] Fentanyl 50 microgram, Route: IVP, Q5Min, Dosing Weight 41.364, kg, PRN Pain Score 7-10, Priority: Routine, Start date: 09/12/16 10:40:00 DOG BEHAVIORIST, Duration: 2 doses or times, Stop date: Limited # of times Inactive 09/12/2016 [facility] Calcium Chloride 0.0014 MEQ/ML / Potassium Chloride 0.004 MEQ/ML / Sodium Chloride 0.103 MEQ/ML / Sodium Lactate 0.028 MEQ/ML Injectable Solution 1,000 mL, Rate: 125 ml/hr, Infuse over: 8 hr, Route: IV, Dosing Weight 41.364 kg, Total Volume: 1,000, Start date: 09/12/16 10:40:00 DOG BEHAVIORIST, Duration: 30 day, Stop date: 10/12/16 10:39:00 CDT Inactive 09/12/2016 [facility] Naloxone 0.4 mg, Route: IVP, Q2MIN, Dosing Weight 41.364, kg, PRN Narcotic Reversal, Start date: 09/12/16 10:40:00 DOG BEHAVIORIST, Duration: 8 doses or times, Stop date: Limited # of times Inactive 09/12/2016 [facility] Sodium Chloride 0.154 MEQ/ML Injectable Solution 1,000 mL, Rate: 25 ml/hr, Infuse over: 40 hr, Route: IV, Dosing Weight 41.364 kg, Total Volume: 1,000, Start date: 09/12/16 8:31:00 DOG BEHAVIORIST, Duration: 30 day, Stop date: 10/12/16 8:30:00 CDT Inactive 09/12/2016 [facility] potassium chloride 20 mEq, 100 mL, Route: IVPB, Drug form: INJ, Q2H, Dosing Weight 41.364, kg, Total dose=40 mEq, Start date: 09/12/16 8:00:00 DOG BEHAVIORIST, Duration: 2 doses or times, Stop date: 09/12/16 10:00:00 DOG BEHAVIORIST, Central LineNotes: (Same as: KCL) Infuse no faster than 10 mEq/hr if given peripherally. Inactive 09/12/2016 [facility] D5W 1/2NS 1,000 mL 1,000 mL, Rate: 125 ml/hr, Infuse over: 8 hr, Route: IV, Dosing Weight 41.364 kg, Total Volume: 1,000, Start date: 09/12/16 0:00:00 DOG BEHAVIORIST, Stop date: 10/11/16 23:59:00 CDT No Longer Active 09/12/2016 [facility] Dextrose 5% with 0.45% NaCl IV 1000 mL 1,000 mL, Rate: 75 ml/hr, Infuse over: 13.3 hr, Route: IV, Dosing Weight 41.364 kg, Total Volume: 1,000, Start date: 09/11/16 16:41:00 DOG BEHAVIORIST, Duration: 30 day, Stop date: 10/11/16 16:40:00 CDT Inactive 09/11/2016 [facility] pantoprazole 40 mg, 1 tab, Route: PO, Drug form: ECTAB, Before Dinner, Dosing Weight 50, kg, Start date: 09/11/16 16:30:00 DOG BEHAVIORIST, Stop date: 10/10/16 16:30:00 CDTNotes: Tablet should not be chewed or crushed. (Same as: Protonix) No Longer Active 09/11/2016 [facility] Methimazole 10 mg, 2 tab, Route: PO, Drug form: TAB, Q8H, Dosing Weight 50, kg, Start date: 09/11/16 0:00:00 DOG BEHAVIORIST, Stop date: 10/10/16 16:00:00 CDT No Longer Active 09/11/2016 [facility] insulin, isophane 5 unit, 0.05 mL, Route: SUB-Q, Drug form: INJ, Q12H, Dosing Weight 50, kg, Start date: 09/10/16 21:00:00 DOG BEHAVIORIST, Duration: 30 day, Stop date: 10/10/16 12:00:00 CDTNotes: Roll in palms of hands gently; Do not shake vigorously. (Same as: NovoLIN N, Humulin N) Do not hold insulin without contacting prescriber "single patient use only" WASTE: F/P - Black; E - [place] Trash Bin Stable for 14 days at room temperature Expires in days from Date No Longer Active 09/11/2016 [facility] Enoxaparin 40 mg, 0.4 mL, Route: SUB-Q, Drug form: INJ, Daily, Dosing Weight 50, kg, Start date: 09/10/16 21:00:00 DOG BEHAVIORIST, Duration: 30 day, Stop date: 10/09/16 21:00:00 CDTNotes: (Same as: Lovenox) No Longer Active 09/11/2016 [facility] Dilaudid 0.5 mg, 0.5 mL, Route: IV, Drug form: INJ, Q6H, Dosing Weight 41.364, kg, PRN Pain Score 6-10, Start date: 09/10/16 18:41:00 DOG BEHAVIORIST, Duration: 30 day, Stop date: 10/10/16 18:40:00 CDT No Longer Active 09/11/2016 [facility] Propranolol 20 mg, 2 tab, Route: PO, Drug form: TAB, TID, Dosing Weight 50, kg, Start date: 09/10/16 17:00:00 DOG BEHAVIORIST, Duration: 30 day, Stop date: 10/10/16 13:00:00 CDTNotes: Give with food. (Same as: Inderal) No Longer Active 09/10/2016 [facility] Morphine 2 mg, 1 mL, Route: IVP, Drug form: INJ, Q4H, Dosing Weight 50, kg, PRN Pain Score 6-10, Start date: 09/10/16 16:46:00 DOG BEHAVIORIST, Duration: 30 day, Stop date: 10/10/16 16:45:00 CDTNotes: (Same as:MORPhine S ulfate) No Longer Active 09/10/2016 [facility] Tylenol 650 mg, 20.3 mL, Route: PO, Drug form: LIQ, Q6H, Dosing Weight 50, kg, PRN Pain 1-3/Temp > 100.4 F, Start date: 09/10/16 16:45:00 DOG BEHAVIORIST, Duration: 30 day, Stop date: 10/10/16 16:44:00 CDTNotes: Max [id number]=8175mw/day (4 gm/day). (Same as: Tylenol) No Longer Active 09/10/2016 [facility] Zofran 4 mg, 2 mL, Route: IV, Drug form: INJ, Q6H, Dosing Weight 50, kg, PRN Nausea, Start date: 09/10/16 16:45:00 DOG BEHAVIORIST, Duration: 30 day, Stop date: 10/10/16 16:44:00 CDTNotes: (Same as: Zofran) MEDICATION WASTE Product Size: 4 mg Product Wasted: ___ mg No Longer Active 09/10/2016 [facility] Acetaminophen 20 MG/ML / Hydrocodone Bitartrate 0.667 MG/ML Oral Solution 10 mL, Route: PO, Drug Form: SOLN, Dosing Weight 50, kg, Q6H, PRN Pain Score 4-6, Start date: 09/10/16 16:45:00 DOG BEHAVIORIST, Duration: 30 day, Stop date: 10/10/16 16:44:00 CDTNotes: Do not exceed 4gm/day of acetaminophen. (Same as: [place] 325/7.5) No Longer Active 09/10/2016 [facility] Insulin, Aspart, Human 10 unit, 0.1 mL, Route: SUB-Q, Drug form: SOLN, Sliding Scale, Dosing Weight 50, kg, PRN Blood Glucose Results, Start date: 09/10/16 16:44:00 DOG BEHAVIORIST, Duration: 30 day, Stop date: 10/10/16 17:43:00 CDTNotes: Roll in palms of hands gently; Do not shake vigorously. (Same as: NovoLOG) "single patient use only" WASTE: F/P - Black; E - Municipal Trash Bin Stable for 28 days at room temperature. Expires in days from Date No Longer Active 09/10/2016 [facility] Dextrose 50% Syringe 25 gm, 50 mL, Route: IVP, Drug Form: INJ, Dosing Weight 50, kg, PRN, PRN Blood Glucose Results, Start date: 09/10/16 16:44:00 DOG BEHAVIORIST, Duration: 30 day, Stop date: 10/10/16 17:43:00 CDT No Longer Active 09/10/2016 [facility] Glucagon 1 mg, Route: IM, Drug form: PDR/INJ, PRN, Dosing Weight 50, kg, PRN Blood Glucose Results, Start date: 09/10/16 16:44:00 DOG BEHAVIORIST, Duration: 30 day, Stop date: 10/10/16 17:43:00 CDT No Longer Active 09/10/2016 [facility] Ondansetron 4 mg, 2 mL, Route: IVP, Drug form: INJ, Q6H, Dosing Weight 50, kg, PRN Nausea & Vomiting, Start date: 09/10/16 16:40:00 DOG BEHAVIORIST, Duration: 30 day, Stop date: 10/10/16 16:39:00 CDTNotes: (Same as: Sotero) MEDICATION WASTE Product Size: 4 mg Product Wasted: ___ mg No Longer Active 09/10/2016 [facility] Regular Insulin, Human 100 UNT/ML Injectable Solution 1 unit, SUB-Q, Sliding Scale, PRN Blood Glucose Results, 0 Refill(s) On Hold 09/10/2016 [facility] tramadol hydrochloride 50 MG Oral Tablet 50 mg=1 tab, PO, Q4H, PRN Pain Score 1-3, 0 Refill(s) On Hold 09/10/2016 [facility] insulin isophane (NPH) 100 units/mL human recombinant subcutaneous suspension 5 unit, SUB-Q, Q12H, 0 Refill(s) On Hold 09/10/2016 [facility] Magnesium Sulfate 2 gm, 50 mL, Route: IVPB, Drug form: INJ, ONCE, Dosing Weight 50, kg, Start date: 09/06/16 8:04:00 DOG BEHAVIORIST, Duration: 2 hr, Stop date: 09/06/16 8:04:00 CSTNotes: WASTE: F/P - Sink; E - Municipal Trash Bin Inactive 09/06/2016 [facility] Melatonin 3 MG Extended Release Tablet 3 mg, 1 tab, Route: PO, Drug Form: TAB, Dosing Weight 50, kg, Bedtime, Start date: 09/05/16 21:44:00 DOG BEHAVIORIST, Duration: 30 day, Stop date: 10/05/16 21:00:00 CSTNotes: (Same as: Melatonin) No Longer Active 09/06/2016 [facility] Dilaudid 0.5 mg, 0.25 mL, Route: IVP, Drug form: INJ, ONCE, Dosing Weight 50, kg, Priority: STAT, Start date: 09/05/16 16:32:00 DOG BEHAVIORIST, Stop date: 09/05/16 16:32:00 CSTNotes: Same as: Dilaudid Inactive 09/05/2016 [facility] Acetaminophen 325 MG / Hydrocodone Bitartrate 5 MG Oral Tablet [[place] 5/325] 1 tab, Route: PO, Drug Form: TAB, Dosing Weight 50, kg, Q6H, PRN Pain Score 6-10, FOR SEVERE PAIN, Start date: 09/05/16 11:28:00 DOG BEHAVIORIST, Duration: 30 day, Stop date: 10/05/16 11:27:00 CSTNotes: (Same as: [place] 325/5) Do not exceed 4gm/day of acetaminophen. No Longer Active 09/05/2016 [facility] tramadol hydrochloride 50 MG Oral Tablet 50 mg, 1 tab, Route: PO, Drug form: TAB, Q4H, Dosing Weight 50, kg, PRN Pain Score 1-3, Start date: 09/05/16 10:48:00 DOG BEHAVIORIST, Duration: 30 day, Stop date: 10/05/16 10:47:00 CSTNotes: Not to exceed 400mg/day. (Same As: Ultram) No Longer Active 09/05/2016 [facility] Magnesium Sulfate 2 gm, 50 mL, Route: IVPB, Drug form: INJ, ONCE, Dosing Weight 50, kg, Start date: 09/04/16 8:04:00 DOG BEHAVIORIST, Stop date: 09/04/16 8:04:00 CSTNotes: WASTE: F/P - Sink; E - Municipal Trash Bin Inactive 09/04/2016 [facility] PHOS-NaK 1 pkt, Route: PO, Drug Form: PDR/REC, Dosing Weight 50, kg, Q24H, Start date: 09/02/16 14:00:00 DOG BEHAVIORIST, Duration: 7 day, Stop date: 09/08/16 14:00:00 CSTNotes: (Same as: Phos-NaK) Each 1.5 gm pkt has 250mg phosphorous. Mix w/2.5oz water and stir. No Longer Active 09/02/2016 [facility] potassium phosphate + sodium chloride 0.9% INJ 250 mL 15 mmol, 5 mL, Route: IVPB, ONCE, Dosing Weight 50, kg, Start date: 09/02/16 7:47:00 DOG BEHAVIORIST, Stop date: 09/02/16 7:47:00 CSTNotes: (Same as: K Phosphate.) 1 mMol phoshate has 1.47 mEq potassium Infuse over 4 hours Inactive 09/02/2016 [facility] Magnesium Sulfate 2 gm, 50 mL, Route: IVPB, Drug form: INJ, ONCE, Dosing Weight 50, kg, Start date: 09/02/16 7:46:00 DOG BEHAVIORIST, Duration: 2 hr, Stop date: 09/02/16 7:46:00 CSTNotes: WASTE: F/P - Sink; E - Municipal Trash Bin Inactive 09/02/2016 [facility] Magnesium Sulfate 2 gm, 50 mL, Route: IVPB, Drug form: INJ, ONCE, Dosing Weight 50, kg, Start date: 08/31/16 7:58:00 DOG BEHAVIORIST, Duration: 2 hr, Stop date: 08/31/16 7:58:00 CSTNotes: WASTE: F/P - Sink; E - Municipal Trash Bin Inactive 08/31/2016 [facility] PHOS-NaK 1 pkt, Route: PO, Drug Form: PDR/REC, Dosing Weight 50, kg, ONCE, Start date: 08/31/16 7:57:00 DOG BEHAVIORIST, Stop date: 08/31/16 7:57:00 CSTNotes: (Same as: Phos-NaK) Each 1.5 gm pkt has 250mg phosphorous. Mix w/2.5oz water and stir. Inactive 08/31/2016 [facility] sterile water 2.2 mL, Route: MISC, Drug Form: INJ, PRN, PRN Other -See Comment, Start date: 08/30/16 11:01:00 DOG BEHAVIORIST, Duration: 1 day, Stop date: 08/31/16 11:00:00 DOG BEHAVIORIST No Longer Active 08/30/2016 [facility] Cathflo Activase 2 mg injection 2 mg, 2 mL, Route: MISC, Drug form: INJ, ONCE, Dosing Weight 50, kg, Start date: 08/30/16 10:39:00 DOG BEHAVIORIST, Stop date: 08/30/16 10:39:00 CSTNotes: "Syringe for catheter clearance or interventional radiology use. Reconstitute each vial of Cathflo Activase with 2.2 ml Sterile Water resulting in a 1 mg/ml solution. Stable for 8 hours only. (Same as: Activase) MEDICATION WASTE Product Size: 2 mg Product Wasted: ___ mg Inactive 08/30/2016 [facility] potassium phosphate + sodium chloride 0.9% INJ 250 mL 30 mmol, 10 mL, Route: IV, ONCE, Start date: 08/29/16 10:30:00 DOG BEHAVIORIST, Stop date: 08/29/16 10:30:00 CSTNotes: (Same as: K Phosphate.) 1 mMol phoshate has 1.47 mEq potassium Infuse over 4 hours Inactive 08/29/2016 [facility] PHOS-NaK 1 pkt, Route: PO, Dosing Weight 50, kg, ONCE, Start date: 08/29/16 9:08:00 DOG BEHAVIORIST, Stop date: 08/29/16 9:08:00 DOG BEHAVIORIST Inactive 08/29/2016 [facility] Insulin regular 5 unit, 0.05 mL, Route: SUB-Q, Drug form: SOLN, Sliding Scale, Dosing Weight 50, kg, PRN Blood Glucose Results, Start date: 08/28/16 23:37:00 DOG BEHAVIORIST, Duration: 30 day, Stop date: 09/27/16 23:36:00 CSTNotes: (Same as: Humulin R) Roll in palms of hands gently; Do not shake vigorously. "single patient use only" (Restricted to patients requiring a dose > 60 units) WASTE: F/P - Black; E - Municipal Trash Bin Stable for 28 days at room temperature Expires in days from Date No Longer Active 08/29/2016 [facility] Glucagon 1 mg, Route: IM, Drug form: PDR/INJ, PRN, Dosing Weight 50, kg, PRN Blood Glucose Results, Start date: 08/28/16 23:37:00 DOG BEHAVIORIST, Duration: 30 day, Stop date: 09/27/16 23:36:00 DOG BEHAVIORIST No Longer Active 08/29/2016 [facility] Dextrose 50% Syringe 25 gm, 50 mL, Route: IVP, Drug Form: INJ, Dosing Weight 50, kg, PRN, PRN Blood Glucose Results, Start date: 08/28/16 23:37:00 DOG BEHAVIORIST, Duration: 30 day, Stop date: 09/27/16 23:36:00 DOG BEHAVIORIST No Longer Active 08/29/2016 [facility] Loperamide 1 mg, 5 mL, Route: PO, Drug form: LIQ, Q6H, Dosing Weight 50, kg, PRN Diarrhea, Start date: 08/28/16 20:36:00 DOG BEHAVIORIST, Duration: 30 day, Stop date: 09/27/16 20:35:00 CSTNotes: Same as Imodium No Longer Active 08/29/2016 [facility] insulin, isophane 5 unit, 0.05 mL, Route: SUB-Q, Drug form: INJ, Q12H, Dosing Weight 50, kg, Start date: 08/28/16 13:45:00 DOG BEHAVIORIST, Stop date: 09/27/16 9:00:00 CSTNotes: Roll in palms of hands gently; Do not shake vigoro usly. (Same as: Humulin N) Do not hold insulin without contacting prescriber WASTE: F/P - Black; E - Municipal Trash Bin Stable for 28 days at room temperature Expires in days from Date No Longer Active 08/28/2016 [facility] Dextrose 50% Syringe 50 mL, Route: IVP, Dosing Weight 50, kg, PRN, PRN Blood Glucose Results, Start date: 08/28/16 13:16:00 DOG BEHAVIORIST, Duration: 30 day, Stop date: 09/27/16 13:15:00 DOG BEHAVIORIST Inactive 08/28/2016 [facility] Glucagon 1 mg, Route: IM, PRN, Dosing Weight 50, kg, PRN Blood Glucose Results, Start date: 08/28/16 13:16:00 DOG BEHAVIORIST, Duration: 30 day, Stop date: 09/27/16 13:15:00 DOG BEHAVIORIST Inactive 08/28/2016 [facility] Menthol 0.0044 MG/MG / Zinc Oxide 0.2 MG/MG Topical Ointment [Calmoseptine Ointment] 1 appl, Route: TOP, PRN, Drug form: OINT, PRN Diaper Rash, Start date: 08/28/16 10:43:00 DOG BEHAVIORIST, Duration: 30 day, Stop date: 09/27/16 10:42:00 DOG BEHAVIORIST, DosingNotes: (Same as: Calmoseptine) No Longer Active 08/28/2016 [facility] [facility] potassium chloride 40 mEq, 30 mL, Route: PO, Drug form: LIQ, Daily, Dosing Weight 50, kg, Start date: 08/28/16 9:00:00 DOG BEHAVIORIST, Duration: 30 day, Stop date: 09/26/16 9:00:00 CSTNotes: (Same as: Potassium Chloride) No Longer Active 08/28/2016 [facility] potassium phosphate + sodium chloride 0.9% INJ 250 mL 45 mmol, 15 mL, Route: IVPB, ONCE, Dosing Weight 50, kg, Start date: 08/28/16 7:56:00 DOG BEHAVIORIST, Stop date: 08/28/16 7:56:00 CSTNotes: (Same as: K Phosphate.) 1 mMol phoshate has 1.47 mEq potassium Infuse over 4 hours Inactive 08/28/2016 [facility] potassium chloride 40 mEq, 30 mL, Route: PO, Drug form: LIQ, ONCE, Dosing Weight 50, kg, Start date: 08/27/16 9:30:00 DOG BEHAVIORIST, Stop date: 08/27/16 9:30:00 CSTNotes: (Same as: Potassium Chloride) Inactive 08/27/2016 [facility] potassium chloride 10 mEq, Route: IVPB, Q1H, Dosing Weight 50, kg, Total Dose=40 meq, Start date: 08/27/16 8:00:00 DOG BEHAVIORIST, Duration: 4 doses or times, Stop date: 08/27/16 11:00:00 DOG BEHAVIORIST, Peripheral Line Inactive 08/27/2016 [facility] potassium chloride 40 mEq, 2 tab, Route: PO, Drug form: ERTAB, ONCE, Dosing Weight 50, kg, Start date: 08/27/16 7:36:00 DOG BEHAVIORIST, Stop date: 08/27/16 7:36:00 CSTNotes: (Same as: K-Dur 20) "Do Not Crush" With food and full glass of water Inactive 08/27/2016 [facility] potassium chloride 40 mEq, 2 tab, Route: PO, Drug form: ERTAB, ONCE, Dosing Weight 50, kg, Start date: 08/26/16 16:31:00 DOG BEHAVIORIST, Stop date: 08/26/16 16:31:00 CSTNotes: (Same as: K-Dur 20) "Do Not Crush" With food and full glass of water Inactive 08/26/2016 [facility] potassium chloride 10 mEq, 50 mL, Route: IVPB, Drug form: INJ, Q1H, Dosing Weight 50, kg, Total Dose=40 meq, Start date: 08/26/16 9:00:00 DOG BEHAVIORIST, Duration: 4 doses or times, Stop date: 08/26/16 12:00:00 DOG BEHAVIORIST, Peripheral LineNotes: (Same as: KCL) Inactive 08/26/2016 [facility] NS + KCL 20mEq/L 1000ml (Premix) 1,000 mL 1,000 mL, Rate: 125 ml/hr, Infuse over: 8 hr, Route: IV, Dosing Weight 50 kg, Total Volume: 1,000, Start date: 08/26/16 8:09:00 DOG BEHAVIORIST, Duration: 30 day, Stop date: 09/25/16 8:08:00 CSTNotes: PREMIX IV - Do Not Alter WASTE: F/P - Sink; E - Municipal Trash Bin No Longer Active 08/26/2016 [facility] potassium chloride 20 mEq, 100 mL, Route: IVPB, Drug form: INJ, Q2H, Dosing Weight 50, kg, Total Dose=40 meq, Start date: 08/25/16 18:00:00 DOG BEHAVIORIST, Duration: 2 doses or times, Stop date: 08/25/16 20:00:00 DOG BEHAVIORIST, Peripheral LineNotes: (Same as: KCL) Infuse no faster than 10 mEq/hr if given peripherally. Inactive 08/26/2016 [facility] potassium chloride 20 mEq, 100 mL, Route: IVPB, Drug form: INJ, Q2H, Dosing Weight 50, kg, Total dose=60 mEq, Start date: 08/25/16 6:00:00 DOG BEHAVIORIST, Duration: 3 doses or times, Stop date: 08/25/16 10:00:00 DOG BEHAVIORIST, Central L ineNotes: (Same as: KCL) Infuse no faster than 10 mEq/hr if given peripherally. Inactive 08/25/2016 [facility] Insulin, Aspart, Human 3 unit, 0.03 mL, Route: SUB-Q, Drug form: SOLN, TID-Before Meals, Dosing Weight 50, kg, PRN Blood Glucose Results, Start date: 08/24/16 18:07:00 DOG BEHAVIORIST, Duration: 30 day, Stop date: 09/23/16 18:06:00 CSTNotes: Roll in palms of hands gently; Do not shake vigorously. (Same as: NovoLOG) "single patient use only" WASTE: F/P - Black; E - Municipal Trash Bin Stable for 28 days at room temperature. Expires in days from Date No Longer Active 08/25/2016 [facility] Dextrose 50% Syringe 12.5 gm, 25 mL, Route: IVP, Drug Form: INJ, Dosing Weight 50, kg, PRN, PRN Blood Glucose Results, Start date: 08/24/16 18:07:00 DOG BEHAVIORIST, Duration: 30 day, Stop date: 09/23/16 18:06:00 DOG BEHAVIORIST No Longer Active 08/25/2016 [facility] Glucagon 1 mg, Route: IM, Drug form: PDR/INJ, PRN, Dosing Weight 50, kg, PRN Blood Glucose Results, Start date: 08/24/16 18:07:00 DOG BEHAVIORIST, Duration: 30 day, Stop date: 09/23/16 18:06:00 DOG BEHAVIORIST No Longer Active 08/25/2016 [facility] sodium chloride 0.9% 1000 ml INJ 1,000 mL 1,000 mL, Rate: 150 ml/hr, Infuse over: 6.7 hr, Route: IV, Dosing Weight 50 kg, Total Volume: 1,000, Start date: 08/24/16 18:01:00 DOG BEHAVIORIST, Duration: 30 day, Stop date: 09/23/16 18:00:00 DOG BEHAVIORIST No Longer Active 08/25/2016 [facility] Maxipime 1 gm, Route: IVPB, Drug form: INJ, [id number], Start date: 08/24/16 18:00:00 DOG BEHAVIORIST, Duration: 30 day, Stop date: 09/23/16 10:00:00 CSTNotes: (Same As: Maxipime) MEDICATION WASTE Product Size: 1000 mg Product Wasted: ___ mg No Longer Active 08/25/2016 [facility] pantoprazole 40 mg, Route: IVP, Drug form: INJ, Before Dinner, Dosing Weight 50, kg, Start date: 08/24/16 16:30:00 DOG BEHAVIORIST, Duration: 30 day, Stop date: 09/22/16 16:30:00 CSTNotes: (Same as: Protonix) No Longer Active 08/24/2016 [facility] Flumazenil 0.2 mg, Route: IVP, PRN, Dosing Weight 50, kg, PRN Benzodiazepine Reversal, Initial dose, Start date: 08/24/16 15:59:00 DOG BEHAVIORIST, Duration: 30 day, Stop date: 09/23/16 15:58:00 DOG BEHAVIORIST Inactive 08/24/2016 [facility] Hydromorphone 0.5 mg, Route: IVP, Q5Min, Dosing Weight 50, kg, PRN Pain Score 7-10, Start date: 08/24/16 15:59:00 DOG BEHAVIORIST, Duration: 4 doses or times, Stop date: Limited # of times Inactive 08/24/2016 [facility] Oxycodone 10 mg, Route: PO, Drug form: TAB, Q4H, Dosing Weight 50, kg, PRN Pain Score 7-10, Start date: 08/24/16 15:59:00 DOG BEHAVIORIST, Duration: 30 day, Stop date: 09/23/16 15:58:00 DOG BEHAVIORIST Inactive 08/24/2016 [facility] Naloxone 0.4 mg, Route: IVP, Q2MIN, Dosing Weight 50, kg, PRN Narcotic Reversal, Start date: 08/24/16 15:59:00 DOG BEHAVIORIST, Duration: 8 doses or times, Stop date: Limited # of times Inactive 08/24/2016 [facility] Ondansetron 4 mg, Route: IVP, ONCE, Dosing Weight 50, kg, PRN Nausea & Vomiting, Start date: 08/24/16 15:59:00 DOG BEHAVIORIST Inactive 08/24/2016 [facility] Metoprolol 2 mg, Route: IVP, Q5Min, Dosing Weight 50, kg, PRN Other -See Comment, Start date: 08/24/16 15:59:00 DOG BEHAVIORIST, Duration: 3 doses or times, Stop date: Limited # of times Inactive 08/24/2016 [facility] potassium chloride 20 mEq, 100 mL, Route: IVPB, Drug form: INJ, Q2H, Start date: 08/24/16 10:00:00 DOG BEHAVIORIST, Duration: 2 doses or times, Stop date: 08/24/16 12:00:00 CSTNotes: (Same as: KCL) Infuse no faster than 10 mEq/hr if given peripherally. Inactive 08/24/2016 [facility] potassium chloride 10 mEq, Route: IVPB, Q1H, Dosing Weight 50, kg, Total Dose=40 meq, Start date: 08/24/16 9:00:00 DOG BEHAVIORIST, Duration: 4 doses or times, Stop date: 08/24/16 12:00:00 DOG BEHAVIORIST, Peripheral Line Inactive 08/24/2016 [facility] Propranolol 20 mg, 1 tab, Route: PO, Drug form: TAB, TID, Dosing Weight 50, kg, Start date: 08/24/16 9:00:00 DOG BEHAVIORIST, Duration: 30 day, Stop date: 09/22/16 17:00:00 CSTNotes: Give with food. (Same as: Inderal) No Longer Active 08/24/2016 [facility] Magnesium Oxide 400 mg, 1 tab, Route: PO, Drug form: TAB, TID, Dosing Weight 50, kg, Start date: 08/24/16 9:00:00 DOG BEHAVIORIST, Duration: 30 day, Stop date: 09/22/16 17:00:00 CSTNotes: (Same as: Mag-Ox 400) Magnesium oxide 4 [id number] elemental magnesium Dose=____mg magnesium oxide (___mg elemental magnesium) No Longer Active 08/24/2016 [facility] Potassium Chloride 1.33 MEQ/ML Oral Solution 40 mEq, 30 mL, Route: PO, Drug form: LIQ, Daily, Dosing Weight 50, kg, Start date: 08/24/16 9:00:00 DOG BEHAVIORIST, Duration: 30 day, Stop date: 09/22/16 9:00:00 CSTNotes: (Same as: Potassium Chloride) Inactive 08/24/2016 [facility] Methimazole 10 mg, 1 tab, Route: PO, Drug form: TAB, Q8H, Dosing Weight 50, kg, Start date: 08/24/16 0:00:00 DOG BEHAVIORIST, Duration: 30 day, Stop date: 09/22/16 16:00:00 DOG BEHAVIORIST No Longer Active 08/24/2016 [facility] Vancomycin 1.25 gm, Route: IVPB, [id number], Dosing Weight 50, kg, Start date: 08/23/16 21:00:00 DOG BEHAVIORIST, Stop date: 09/22/16 17:00:00 CSTNotes: TIME CRITICAL MEDICATION (Same As: Vancocin) Infusion rate 2001 mg: infuse over 2.5 hours MEDICATION WASTE Product Size: 1000 mg Product Wasted: ___ mg No Longer Active 08/24/2016 [facility] Enoxaparin 40 mg, 0.4 mL, Route: SUB-Q, Drug form: INJ, [id number], Dosing Weight 50, kg, Start date: 08/23/16 21:00:00 DOG BEHAVIORIST, Duration: 30 day, Stop date: 09/21/16 21:00:00 CSTNotes: (Same as: Lovenox) No Longer Active 08/24/2016 [facility] cefepime 1 gm, Route: IVPB, Drug form: INJ, [id number], Dosing Weight 50, kg, (CrCl 30 - 49 ml/min), Start date: 08/23/16 21:00:00 DOG BEHAVIORIST, Duration: 30 day, Stop date: 09/22/16 9:00:00 CSTNotes: (Same As: Maxipime) MEDICATION WASTE Product Size: 1000 mg Product Wasted: __0_ mg No Longer Active 08/24/2016 [facility] Albuterol 0.833 MG/ML / Ipratropium [place] 0.167 MG/ML Inhalant Solution 3 mL, Route: NEB, Drug Form: SOLN, Dosing Weight 50, kg, Q6H, PRN Shortness of breath, Start date: 08/23/16 20:14:00 DOG BEHAVIORIST, Duration: 30 day, Stop date: 09/22/16 20:13:00 CSTNotes: (Same as: Duoneb) No Longer Active 08/24/2016 [facility] Ondansetron 4 mg, 2 mL, Route: IVP, Drug form: INJ, Q6H, Dosing Weight 50, kg, PRN Nausea, Start date: 08/23/16 20:08:00 DOG BEHAVIORIST, Duration: 30 day, Stop date: 09/22/16 20:07:00 CSTNotes: (Same as: Zofran) MEDICAT ION WASTE Product Size: 4 mg Product Wasted: _0__ mg No Longer Active 08/24/2016 [facility] Hydromorphone 0.5 mg, 0.25 mL, Route: IV, Drug form: INJ, Q3H, Dosing Weight 50, kg, PRN Pain Score 4-6, Start date: 08/23/16 20:05:00 DOG BEHAVIORIST, Duration: 30 day, Stop date: 09/22/16 20:04:00 CSTNotes: Same as Dilaudid No Longer Active 08/24/2016 [facility] propranolol 20 mg oral tablet 20 mg=1 tab, PO, TID, 0 Refill(s) On Hold 08/23/2016 [facility] pantoprazole 40 mg intravenous injection 40 mg, IVP, Before Dinner, 0 Refill(s) On Hold 08/23/2016 [facility] ondansetron 2 mg/mL injectable solution 4 mg=2 mL, IVP, Q6H, PRN Nausea, 0 Refill(s) On Hold 08/23/2016 [facility] magnesium sulfate 2 g/50 mL-sterile water intravenous solution 2 gm=50 mL, IV, ONCE, 0 Refill(s) On Hold 08/23/2016 [facility] Morphine 2 mg=0.5 mL, IV, Q4H, PRN Pain Score 4-6, 0 Refill(s) On Hold 08/23/2016 [facility] hydromorphone 100 mg/100 mL-NaCl 0.9% intravenous solution 0.5 mg=0.5 mL, IV, Q3H, PRN Pain Score 4-6, 0 Refill(s) On Hold 08/23/2016 [facility] Acetaminophen 325 MG / Hydrocodone Bitartrate 5 MG Oral Tablet [[place] 5/325] 1 tab, PO, Q6H, PRN Pain Score 1-3, 0 Refill(s) On Hold 08/23/2016 [facility] Magnesium Sulfate 2 gm, 50 mL, Route: IV, Drug form: INJ, ONCE, Dosing Weight 50.909, kg, Start date: 08/23/16 14:32:00 DOG BEHAVIORIST, Stop date: 08/23/16 14:32:00 CSTNotes: WASTE: F/P - Sink; E - Municipal Trash Bin Inactive 08/23/2016 [facility] potassium chloride 10 mEq, 100 mL, Route: IVPB, Drug form: INJ, Q1H, Dosing Weight 50.909, kg, Total Dose=60 meq, Start date: 08/23/16 7:00:00 DOG BEHAVIORIST, Duration: 6 doses or times, Stop date: 08/23/16 12:00:00 DOG BEHAVIORIST, Peripheral LineNotes: Infuse at a rate of 10 mEq/hr. (Same as: KCL) Inactive 08/23/2016 [facility] potassium chloride 40 mEq, 30 mL, Route: DHT, Drug form: LIQ, ONCE, Dosing Weight 50.909, kg, Start date: 08/23/16 6:24:00 DOG BEHAVIORIST, Stop date: 08/23/16 6:24:00 CSTNotes: (Same as: Potassium Chloride) Inactive 08/23/2016 [facility] Propranolol 20 mg, 1 tab, Route: PO, Drug form: TAB, TID, Dosing Weight 50.909, kg, Start date: 08/22/16 16:00:00 DOG BEHAVIORIST, Duration: 30 day, Stop date: 09/21/16 8:00:00 CSTNotes: Give with food. (Same as: Inderal) No Longer Active 08/22/2016 [facility] potassium chloride 40 mEq, 30 mL, Route: NG, Drug form: LIQ, Q2H, Dosing Weight 50.909, kg, Start date: 08/22/16 12:00:00 DOG BEHAVIORIST, Duration: 2 doses or times, Stop date: 08/22/16 14:00:00 CSTNotes: (Same as: Potassium Chloride) Inactive 08/22/2016 [facility] WAIT for vanc trough draw on 08/22 AM WAIT for vanc trough draw on 08/22 AM, reminder, Drug form: MISC, Route: MISC, ONCE, 08/22/16 9:00:00 DOG BEHAVIORIST, Stop date: 08/22/16 9:00:00 DOG BEHAVIORIST Inactive 08/22/2016 [facility] D5W 1/2NS + KCL 40mEq/L 1000ml (Premix) 1,000 mL 1,000 mL, Rate: 75 ml/hr, Infuse over: 13.3 hr, Route: IV, Dosing Weight 50.909 kg, Total Volume: 1,000, Start date: 08/22/16 7:00:00 DOG BEHAVIORIST, Duration: 30 day, Stop date: 09/21/16 6:59:00 CSTNotes: PREMIX IV - Do Not Alter WASTE: F/P - Sink; E - Municipal Trash Bin No Longer Active 08/22/2016 [facility] Propranolol 20 mg, 1 tab, Route: PO, Drug form: TAB, Q12H, Dosing Weight 50.909, kg, Priority: NOW, Start date: 08/21/16 10:05:00 DOG BEHAVIORIST, Duration: 30 day, Stop date: 09/20/16 9:00:00 CSTNotes: Give with food. (Same as: Inderal) No Longer Active 08/21/2016 [facility] sodium chloride 0.9% 1000 ml INJ 1,000 mL 1,000 mL, Rate: 1000 ml/hr, Infuse over: 1 hr, Route: IV, Dosing Weight 51.165 kg, Total Volume: 1,000, Start date: 08/20/16 22:49:00 DOG BEHAVIORIST, Duration: 1 doses or times, Stop date: 08/20/16 23:48:00 DOG BEHAVIORIST Inactive 08/21/2016 [facility] Metoprolol 5 mg, 5 mL, Route: IVP, Drug form: INJ, Q4H, Dosing Weight 51.165, kg, Start date: 08/20/16 20:00:00 DOG BEHAVIORIST, Duration: 30 day, Stop date: 09/19/16 16:00:00 CSTNotes: (Same as: Lopressor) Push over 2 minutes No Longer Active 08/21/2016 [facility] Zofran 4 mg, 2 mL, Route: IVP, Drug form: INJ, Q6H, Dosing Weight 51.165, kg, PRN Nausea, Start date: 08/20/16 19:06:00 DOG BEHAVIORIST, Duration: 30 day, Stop date: 09/19/16 19:05:00 CSTNotes: (Same as: Zofran) MEDICATION WASTE Product Size: 4 mg Product Wasted: ___ mg No Longer Active 08/21/2016 [facility] Zofran 4 mg, Route: IVP, Drug form: INJ, Q8H, Dosing Weight 51.165, kg, PRN Nausea, Start date: 08/20/16 19:03:00 DOG BEHAVIORIST, Duration: 30 day, Stop date: 09/19/16 19:02:00 DOG BEHAVIORIST Inactive 08/21/2016 [facility] Insulin, Aspart, Human 10 unit, 0.1 mL, Route: SUB-Q, Drug form: SOLN, Sliding Scale, Dosing Weight 51.165, kg, PRN Blood Glucose Results, Start date: 08/20/16 16:32:00 DOG BEHAVIORIST, Duration: 30 day, Stop date: 09/19/16 16:31:00 CSTNotes: Roll in palms of hands gently; Do not shake vigorously. (Same as: NovoLOG) "single patient use only" WASTE: F/P - Black; E - Municipal Trash Bin Stable for 28 days at room temperature. Expires in days from Date No Longer Active 08/20/2016 [facility] Dextrose 50% Syringe 12.5 gm, 25 mL, Route: IVP, Drug Form: INJ, Dosing Weight 51.165, kg, PRN, PRN Blood Glucose Results, Start date: 08/20/16 16:32:00 DOG BEHAVIORIST, Duration: 30 day, Stop date: 09/19/16 16:31:00 DOG BEHAVIORIST No Longer Active 08/20/2016 [facility] Glucagon 1 mg, Route: IM, Drug form: PDR/INJ, PRN, Dosing Weight 51.165, kg, PRN Blood Glucose Results, Start date: 08/20/16 16:32:00 DOG BEHAVIORIST, Duration: 30 day, Stop date: 09/19/16 16:31:00 DOG BEHAVIORIST No Longer Active 08/20/2016 [facility] Sodium Chloride 0.154 MEQ/ML Injectable Solution 1,000 mL, Rate: 25 ml/hr, Infuse over: 40 hr, Route: IV, Dosing Weight 51.165 kg, Total Volume: 1,000, Start date: 08/20/16 13:32:00 DOG BEHAVIORIST, Duration: 1 day, Stop date: 08/21/16 13:31:00 DOG BEHAVIORIST Inactive 08/20/2016 [facility] Metoprolol 5 mg, 5 mL, Route: IVP, Drug form: INJ, Q6H, Dosing Weight 51.165, kg, Hold if sBPNotes: (Same as: Lopressor) Push over 2 minutes Inactive 08/20/2016 [facility] sodium chloride 0.9% 1000 ml INJ 1,000 mL 1,000 mL, Rate: 41.67 ml/hr, Infuse over: 24 hr, Route: IV, Dosing Weight 51.165 kg, Total Volume: 1,000, Start date: 08/20/16 8:57:00 DOG BEHAVIORIST, Duration: 30 day, Stop date: 09/19/16 8:56:00 DOG BEHAVIORIST Inactive 08/20/2016 [facility] potassium chloride 10 mEq, 100 mL, Route: IVPB, Drug form: INJ, Q1H, Dosing Weight 51.165, kg, Total Dose=40 meq, Start date: 08/19/16 18:00:00 DOG BEHAVIORIST, Duration: 4 doses or times, Stop date: 08/19/16 21:00:00 DOG BEHAVIORIST, Peripheral LineNotes: Infuse at a rate of 10 mEq/hr. (Same as: KCL) Inactive 08/20/2016 [facility] Vancomycin 1,250 mg, Route: IVPB, [id number], Dosing Weight 51.165, kg, Start date: 08/19/16 9:00:00 DOG BEHAVIORIST, Stop date: 09/18/16 2:00:00 CSTNotes: TIME CRITICAL MEDICATION (Same As: Vancocin) Infusion rate 2001 mg: infuse over 2.5 hours MEDICATION WASTE Product Size: 1000 mg Product Wasted: ___ mg No Longer Active 08/19/2016 [facility] vancomycin + sodium chloride 0.9% INJ 250 mL 1 gm, Route: IVPB, [id number], Dosing Weight 51.165, kg, Start date: 08/19/16 0:30:00 DOG BEHAVIORIST, Duration: 30 day, Stop date: 09/17/16 16:30:00 CSTNotes: TIME CRITICAL MEDICATION (Same As: Vancocin) Infusion rate 2001 mg: infuse over 2.5 hours MEDICATION WASTE Product Size: 1000 mg Product Wasted: ___ mg Inactive 08/19/2016 [facility] *RN - PLEASE DO NOT GIVE VANCO UNTIL TROUGH IS DRAWN * *RN - PLEASE DO NOT GIVE VANCO UNTIL TROUGH IS DRAWN *, REMINDER, Drug form: MISC, Route: MISC, Daily, 08/18/16 23:00:00 DOG BEHAVIORIST, Duration: 2 hr, Stop date: 08/18/16 23:00:00 DOG BEHAVIORIST Inactive 08/19/2016 [facility] D5W 1/2NS 1,000 mL 1,000 mL, Rate: 75 ml/hr, Infuse over: 13.3 hr, Route: IV, Dosing Weight 51.165 kg, Total Volume: 1,000, Start date: 08/18/16 19:47:00 DOG BEHAVIORIST, Stop date: 09/17/16 19:46:00 DOG BEHAVIORIST No Longer Active 08/19/2016 [facility] Metoprolol 5 mg, 5 mL, Route: IV, Drug form: INJ, ONCE, Dosing Weight 51.165, kg, Start date: 08/18/16 19:47:00 DOG BEHAVIORIST, Stop date: 08/18/16 19:47:00 CSTNotes: (Same as: Lopressor) Push over 2 minutes Inactive 08/19/2016 [facility] cefepime 1 gm, Route: IVPB, [id number], Dosing Weight 51.165, kg, Start date: 08/18/16 4:00:00 DOG BEHAVIORIST, Stop date: 09/16/16 16:00:00 CSTNotes: (Same As: Maxipime) MEDICATION WASTE Product Size: 1000 mg Product Wasted: ___ mg No Longer Active 08/18/2016 [facility] Dilaudid 0.5 mg, 0.5 mL, Route: IV, Drug form: INJ, Q3H, Dosing Weight 51.165, kg, PRN Pain Score 4-6, Start date: 08/18/16 2:18:00 DOG BEHAVIORIST, Duration: 30 day, Stop date: 09/17/16 2:17:00 DOG BEHAVIORIST No Longer Active 08/18/2016 [facility] Methimazole 10 mg, 1 tab, Route: PO, Drug form: TAB, Q8H, Dosing Weight 51.165, kg, Start date: 08/18/16 0:00:00 DOG BEHAVIORIST, Duration: 30 day, Stop date: 09/16/16 16:00:00 DOG BEHAVIORIST No Longer Active 08/18/2016 [facility] Vancomycin 1.25 gm, 250 mL, Route: IVPB, Drug form: INJ, ABXQ8H, Dosing Weight 51.165, kg, Start date: 08/18/16 0:00:00 DOG BEHAVIORIST, Duration: 30 day, Stop date: 09/16/16 16:00:00 CSTNotes: TIME CRITICAL MEDICATION Same as: Vancocin-NS (premixed) Infusion rate 2001 mg: infuse over 2.5 hours No Longer Active 08/18/2016 [facility] insulin detemir 10 unit, 0.1 mL, Route: SUB-Q, Drug form: INJ, Q12H, Dosing Weight 51.165, kg, Start date: 08/17/16 22:00:00 DOG BEHAVIORIST, Duration: 30 day, Stop date: 09/16/16 21:00:00 CSTNotes: Same as Levemir Do not hold insulin without contacting prescriber WASTE: F/P - Black; E - Municipal Trash Bin "single patient use only" No Longer Active 08/18/2016 [facility] Lovenox 40 mg, 0.4 mL, Route: SUB-Q, Drug form: INJ, [id number], Dosing Weight 51.165, kg, Start date: 08/17/16 22:00:00 DOG BEHAVIORIST, Duration: 30 day, Stop date: 09/15/16 22:00:00 CSTNotes: (Same as: Lovenox) No Longer Active 08/18/2016 [facility] metoprolol tartrate 25 mg, 1 tab, Route: PO, Drug form: TAB, Q12H, Dosing Weight 51.165, kg, Start date: 08/17/16 22:00:00 DOG BEHAVIORIST, Duration: 30 day, Stop date: 09/16/16 21:00:00 CSTNotes: (Same as: Lopressor) No Longer Active 08/18/2016 [facility] Protonix 40 mg, Route: IVP, Drug form: INJ, Before Dinner, Dosing Weight 51.165, kg, Start date: 08/17/16 22:00:00 DOG BEHAVIORIST, Duration: 30 day, Stop date: 09/16/16 16:30:00 CSTNotes: For IV push reconstitute with 10 ml 0.9% sodium chloride and push over 2 minutes. (Same as: Protonix) No Longer Active 08/18/2016 [facility] Vancomycin 1 ea, Route: MISC, Dosing Weight 51.165, kg, ONCALL, Start date: 08/17/16 22:00:00 DOG BEHAVIORIST, Duration: 1 doses or times, Pharmacy to dose Inactive 08/18/2016 [facility] Acetaminophen 325 MG / Hydrocodone Bitartrate 5 MG Oral Tablet [[place] 5/325] 1 tab, Route: PO, Drug Form: TAB, Dosing Weight 51.165, kg, Q6H, PRN Pain Score 1-3, Start date: 08/17/16 21:13:00 DOG BEHAVIORIST, Duration: 30 day, Stop date: 09/16/16 21:12:00 CSTNotes: (Same as: [place] 325/5) Do not exceed 4gm/day of acetaminophen. No Longer Active 08/18/2016 [facility] Dilaudid 0.5 mg, 0.5 mL, Route: IVP, Drug form: INJ, Q4H, Dosing Weight 51.165, kg, PRN Pain Score 7-10, Start date: 08/17/16 21:13:00 DOG BEHAVIORIST, Duration: 30 day, Stop date: 09/16/16 21:12:00 DOG BEHAVIORIST No Longer Active 08/18/2016 [facility] Insulin, Aspart, Human 2 unit, 0.02 mL, Route: SUB-Q, Drug form: SOLN, TID-Before Meals, Dosing Weight 51.165, kg, PRN Blood Glucose Results, Start date: 08/17/16 21:09:00 DOG BEHAVIORIST, Duration: 30 day, Stop date: 09/16/16 21:08:00 CSTNotes: Roll in palms of hands gently; Do not shake vigorously. (Same as: NovoLOG) "single patient use only" WASTE: F/P - Black; E - Municipal Trash Bin Stable for 28 days at room temperature. Expires in days from Date No Longer Active 08/18/2016 [facility] Dextrose 50% Syringe 12.5 gm, 25 mL, Route: IVP, Drug Form: INJ, Dosing Weight 51.165, kg, PRN, PRN Blood Glucose Results, Start date: 08/17/16 21:09:00 DOG BEHAVIORIST, Duration: 30 day, Stop date: 09/16/16 21:08:00 DOG BEHAVIORIST No Longer Active 08/18/2016 [facility] Glucagon 1 mg, Route: IM, Drug form: PDR/INJ, PRN, Dosing Weight 51.165, kg, PRN Blood Glucose Results, Start date: 08/17/16 21:09:00 DOG BEHAVIORIST, Duration: 30 day, Stop date: 09/16/16 21:08:00 DOG BEHAVIORIST No Longer Active 08/18/2016 [facility] Acetaminophen 650 mg, 20.3 mL, Route: PO, Drug form: LIQ, Q6H, Dosing Weight 51.165, kg, PRN For Temp > 100.4 F, Start date: 08/17/16 21:05:00 DOG BEHAVIORIST, Duration: 30 day, Stop date: 09/16/16 21:04:00 CSTNotes: Max kcwstmsaqozgc=0322nw/day (4 gm/day). (Same as: Tylenol) No Longer Active 08/18/2016 [facility] Morphine 2 mg, 0.5 mL, Route: IV, Drug form: SOLN, Q4H, Dosing Weight 51.165, kg, PRN Pain Score 4-6, Start date: 08/17/16 20:13:00 DOG BEHAVIORIST, Duration: 30 day, Stop date: 09/16/16 20:12:00 CSTNotes: (Same as:MORPhine Sulfate) No Longer Active 08/18/2016 [facility] vancomycin 1.25 gm, 250 mL, Route: IVPB, Drug form: INJ, ABXQ8H, Start date: 08/17/16 16:00:00 DOG BEHAVIORIST, Duration: 30 day, Stop date: 09/16/16 8:00:00 CSTNotes: TIME CRITICAL MEDICATION Same as: Vancocin-NS (premixed) Infusion rate 2001 mg: infuse over 2.5 hours Inactive 08/17/2016 [facility] insulin detemir 100 units/mL subcutaneous solution 15 unit, SUB-Q, Bedtime, 0 Refill(s) Active 08/16/2016 [facility] metoprolol tartrate 25 mg oral tablet 25 mg=1 tab, PO, Q12H, 0 Refill(s) Active 08/16/2016 [facility] lansoprazole 3 mg/mL oral suspension PO, Before Dinner, 0 Refill(s) Active 08/16/2016 [facility] Docusate Sodium 100 MG Oral Capsule 100 mg=1 cap, PO, BID, PRN Constipation, 0 Refill(s) Active 08/16/2016 [facility] Albuterol 0.833 MG/ML / Ipratropium [place] 0.167 MG/ML Inhalant Solution 3 mL, NEB, Q6H, PRN Shortness of breath, 0 Refill(s) Active 08/16/2016 [facility] Potassium Chloride 1.33 MEQ/ML Oral Solution 40 mEq=30 mL, PO, Daily, 0 Refill(s) Active 08/16/2016 [facility] Acetaminophen 325 MG / Oxycodone Hydrochloride 5 MG Oral Tablet 2 tab, PO, Q6H, PRN Pain Score 4-6, 0 Refill(s) Active 08/16/2016 [facility] potassium chloride 10 mEq, 100 mL, Route: IVPB, Drug form: INJ, Q1H, Dosing Weight 60, kg, Total Dose=20 meq, Start date: 08/16/16 9:00:00 DOG BEHAVIORIST, Duration: 2 doses or times, Stop date: 08/16/16 10:00:00 DOG BEHAVIORIST, Peripheral LineNotes: Infuse at a rate of 10 mEq/hr. (Same as: KCL) Inactive 08/16/2016 [facility] vancomycin + sodium chloride 0.9% INJ 250 mL 1,000 mg, Route: IVPB, [id number], Start date: 08/16/16 1:00:00 DOG BEHAVIORIST, Duration: 30 day, Stop date: 09/14/16 17:00:00 CSTNotes: TIME CRITICAL MEDICATION (Same As: Vancocin) Infusion rate 2001 mg: infuse over 2.5 hours MEDICATION WASTE Product Size: 1000 mg Product Wasted: ___ mg No Longer Active 08/16/2016 [facility] Lopressor 5 mg, 5 mL, Route: IVP, Drug form: INJ, Q12H, Start date: 08/15/16 23:31:00 DOG BEHAVIORIST, Duration: 30 day, Stop date: 09/14/16 21:00:00 CSTNotes: (Same as: Lopressor) Push over 2 minutes No Longer Active 08/16/2016 [facility] D5W 1/2NS 1,000 mL 1,000 mL, Rate: 60 ml/hr, Infuse over: 16.7 hr, Route: IV, Dosing Weight 60 kg, Total Volume: 1,000, Start date: 08/15/16 15:29:00 DOG BEHAVIORIST, Duration: 30 day, Stop date: 09/14/16 15:28:00 DOG BEHAVIORIST No Longer Active 08/15/2016 [facility] sodium phosphate 30 mmol, 250 mL, Route: IVPB, Drug form: INJ, ONCE, Dosing Weight 60, kg, Start date: 08/15/16 12:22:00 DOG BEHAVIORIST, Stop date: 08/15/16 12:22:00 DOG BEHAVIORIST Inactive 08/15/2016 [facility] sodium phosphate 30 mmol, 250 mL, Route: IVPB, Drug form: INJ, PRN, Dosing Weight 60, kg, PRN Abnormal Lab Result, Start date: 08/15/16 9:14:00 DOG BEHAVIORIST, Duration: 30 day, Stop date: 09/14/16 9:13:00 DOG BEHAVIORIST Inactive 08/15/2016 [facility] metoprolol tartrate 25 mg, 1 tab, Route: PO, Drug form: TAB, Q12H, Dosing Weight 60, kg, Start date: 08/14/16 21:00:00 DOG BEHAVIORIST, Duration: 30 day, Stop date: 09/13/16 9:00:00 CSTNotes: (Same as: Lopressor) No Longer Active 08/15/2016 [facility] albumin human 25% intravenous solution 25 gm, 100 mL, Route: IVPB, Drug form: INJ, ONCE, Dosing Weight 60, kg, Start date: 08/14/16 20:00:00 DOG BEHAVIORIST, Stop date: 08/14/16 20:00:00 CSTNotes: Lot #: Mfg: (Same as: Plasbumin-25) "blood product derivative" WASTE: F/P - Red; E -Red MEDICATION WASTE Product Size: 25 gm Product Wasted: ___ gm Inactive 08/15/2016 [facility] Vancomycin 1 ea, Route: MISC, Dosing Weight 60, kg, ONCALL, Start date: 08/14/16 16:00:00 DOG BEHAVIORIST, Duration: 1 doses or times, Pharmacy to dose Inactive 08/14/2016 [facility] Pharmacy Dosing Protocol [facility] Pharmacy Dosing Protocol, misc, Drug form: MISC, Route: MISC, ONCALL, 08/14/16 16:00:00 DOG BEHAVIORIST, Duration: 30 day, Stop date: 09/13/16 15:59:00 DOG BEHAVIORIST No Longer Active 08/14/2016 [facility] Sodium Chloride 0.154 MEQ/ML Injectable Solution 500 mL, 500 ml/hr, Infuse Over: 1 hr, Route: IV, 500, Drug form: INJ, ONCE, Priority: STAT, Dosing Weight 60 kg, Start date: 08/14/16 11:17:00 DOG BEHAVIORIST, Duration: 1 doses or times, Stop date: 08/14/16 11:17:00 DOG BEHAVIORIST Inactive 08/14/2016 [facility] albumin human 25% intravenous solution 25 gm, 100 mL, Route: IVPB, Drug form: INJ, Q6H, Dosing Weight 60, kg, Start date: 08/14/16 0:00:00 DOG BEHAVIORIST, Duration: 6 doses or times, Stop date: 08/15/16 6:00:00 CSTNotes: Lot #: Mfg: (Same as: Plasbumin-25) "blood product derivative" WASTE: F/P - Red; E -Red MEDICATION WASTE Product Size: 25 gm Product Wasted: ___ gm Inactive 08/14/2016 [facility] vancomycin + sodium chloride 0.9% INJ 250 mL 1 gm, Route: IVPB, [id number], Dosing Weight 60, kg, Start date: 08/14/16 0:00:00 DOG BEHAVIORIST, Duration: 30 day, Stop date: 09/12/16 12:00:00 CSTNotes: TIME CRITICAL MEDICATION (Same As: Vancocin) Infusion rate 2001 mg: infuse over 2.5 hours MEDICATION WASTE Product Size: 1000 mg Product Wasted: ___ mg No Longer Active 08/14/2016 [facility] cefepime + sodium chloride 0.9% INJ 100 mL 1 gm, Route: IVPB, [id number], Dosing Weight 60, kg, (CrCl >/=50 ml/min), Priority: Routine, Start date: 08/13/16 21:00:00 DOG BEHAVIORIST, Duration: 30 day, Stop date: 09/12/16 13:00:00 CSTNotes: (Same As: Maxipime) MEDICATION WASTE Product Size: 1000 mg Product Wasted: ___ mg No Longer Active 08/14/2016 [facility] Trazodone 50 mg, 1 tab, Route: PO, Drug form: TAB, Bedtime, Dosing Weight 60, kg, PRN Insomnia, Start date: 08/13/16 19:03:00 DOG BEHAVIORIST, Duration: 30 day, Stop date: 09/12/16 19:02:00 CSTNotes: (Same As: Desyrel) No Longer Active 08/14/2016 [facility] potassium phosphate 30 mmol, 250 mL, Route: IVPB, Drug form: INJ, ONCE, Dosing Weight 60, kg, Start date: 08/13/16 16:55:00 DOG BEHAVIORIST, Stop date: 08/13/16 16:55:00 CSTNotes: (Same as: K Phosphate.) Inactive 08/13/2016 [facility] Magnesium Sulfate 2 gm, 50 mL, Route: IVPB, Drug form: INJ, ONCE, Dosing Weight 60, kg, Start date: 08/13/16 16:54:00 DOG BEHAVIORIST, Duration: 2 hr, Stop date: 08/13/16 16:54:00 CSTNotes: WASTE: F/P - Sink; E - Municipal Trash Bin Inactive 08/13/2016 [facility] Vancomycin 1 ea, Route: MISC, Drug Form: INJ, Dosing Weight 60, kg, ONCALL, Start date: 08/13/16 15:00:00 DOG BEHAVIORIST, Duration: 1 doses or times, Pharmacy to doseNotes: TIME CRITICAL MEDICATION (Same As: Vancocin) Infusion rate 2001 mg: infuse over 2.5 hours MEDICATION WASTE Product Size: 1000 mg Product Wasted: ___ mg No Longer Active 08/13/2016 [facility] cefepime 1 gm, Route: IVPB, [id number], Dosing Weight 60, kg, (CrCl >/=50 ml/min), Priority: STAT, Start date: 08/13/16 14:34:00 DOG BEHAVIORIST, Duration: 30 day, Stop date: 09/12/16 5:00:00 CSTNotes: (Same As: Maxipime) MEDICATION WASTE Product Size: 1000 mg Product Wasted: ___ mg Inactive 08/13/2016 [facility] Potassium Chloride 1.33 MEQ/ML Oral Solution 40 mEq, 30 mL, Route: PO, Drug form: LIQ, Daily, Dosing Weight 60, kg, Start date: 08/13/16 9:00:00 DOG BEHAVIORIST, Duration: 30 day, Stop date: 09/11/16 9:00:00 CSTNotes: (Same as: Potassium Chloride) No Longer Active 08/13/2016 [facility] Omnipaque 300 injectable solution 75 mL, Route: IVP, Drug Form: SOLN, Dosing Weight 60, kg, ONCALL, GFR > 45 mL/min, Start date: 08/13/16 8:00:00 DOG BEHAVIORIST, Duration: 1 doses or timesNotes: (Same as:Omnipaque 300). WASTE: F/P - Black; E - Municipal Trash Bin Inactive 08/13/2016 [facility] Readi-Cat 2 450 mL, Route: PO, Drug Form: SUSP, ONCALL, Start date: 08/13/16 3:00:00 DOG BEHAVIORIST, Duration: 30 day, Stop date: 09/12/16 2:59:00 CSTNotes: Same as Readi-Cat 2 Inactive 08/13/2016 [facility] potassium phosphate 15 mmol, 250 mL, Route: IVPB, Drug form: INJ, ONCE, Dosing Weight 60, kg, Start date: 08/12/16 16:15:00 DOG BEHAVIORIST, Stop date: 08/12/16 16:15:00 CSTNotes: (Same as: K Phosphate) Inactive 08/12/2016 [facility] insulin detemir 15 unit, 0.15 mL, Route: SUB-Q, Drug form: INJ, Bedtime, Dosing Weight 49.5, kg, Start date: 08/11/16 21:00:00 DOG BEHAVIORIST, Duration: 30 day, Stop date: 09/09/16 21:00:00 CSTNotes: Same as Levemir Do not hold insulin without contacting prescriber WASTE: F/P - Black; E - Municipal Trash Bin "single patient use only" No Longer Active 08/12/2016 [facility] potassium phosphate-sodium phosphate 250 mg-280 mg-160 mg oral powder for reconstitution 2 pkt, Route: PO, Drug Form: PDR/REC, Dosing Weight 60, kg, Q4H, Start date: 08/11/16 16:00:00 DOG BEHAVIORIST, Duration: 2 doses or times, Stop date: 08/11/16 20:00:00 CSTNotes: (Same as: Phos-NaK) Each 1.5 gm pkt has 250mg phosphorous. Mix w/2.5oz water and stir. Inactive 08/11/2016 [facility] Magnesium Sulfate 2 gm, 50 mL, Route: IVPB, Drug form: INJ, ONCE, Dosing Weight 60, kg, Start date: 08/11/16 15:59:00 DOG BEHAVIORIST, Duration: 2 hr, Stop date: 08/11/16 15:59:00 CSTNotes: WASTE: F/P - Sink; E - Municipal Trash Bin Inactive 08/11/2016 [facility] insulin detemir 10 unit, 0.1 mL, Route: SUB-Q, Drug form: INJ, Bedtime, Dosing Weight 49.5, kg, Start date: 08/10/16 21:00:00 DOG BEHAVIORIST, Duration: 30 day, Stop date: 09/08/16 21:00:00 CSTNotes: Same as Levemir Do not hold insulin without contacting prescriber WASTE: F/P - Black; E - Municipal Trash Bin "single patient use only" No Longer Active 08/11/2016 [facility] Potassium Chloride 1.33 MEQ/ML Oral Solution 40 mEq, 30 mL, Route: NG, Drug form: LIQ, ONCE, Dosing Weight 60, kg, Start date: 08/10/16 15:32:00 DOG BEHAVIORIST, Stop date: 08/10/16 15:32:00 CSTNotes: (Same as: Potassium Chloride) Inactive 08/10/2016 [facility] Potassium Chloride 1.33 MEQ/ML Oral Solution 40 mEq, 30 mL, Route: PO, Drug form: LIQ, ONCE, Dosing Weight 60, kg, Start date: 08/10/16 15:31:00 DOG BEHAVIORIST, Stop date: 08/10/16 15:31:00 CSTNotes: (Same as: Potassium Chloride) Inactive 08/10/2016 [facility] Magnesium Sulfate 2 gm, 50 mL, Route: IVPB, Drug form: INJ, ONCE, Dosing Weight 60, kg, Total dose=2 gm, Start date: 08/10/16 15:30:00 DOG BEHAVIORIST, Duration: 1 doses or times, Stop date: 08/10/16 15:30:00 CSTNotes: WASTE: F/P - Sink; E - [place] Trash Bin Inactive 08/10/2016 [facility] Promethazine 25 mg, 1 mL, Route: IM, Drug form: INJ, Q4H, Dosing Weight 60, kg, PRN Nausea & Vomiting, Start date: 08/10/16 14:00:00 DOG BEHAVIORIST, Duration: 30 day, Stop date: 09/09/16 13:59:00 CSTNotes: Do not give IV push. (Same as: Phenergan) No Longer Active 08/10/2016 [facility] Prevacid 30 mg, 10 mL, Route: PO, Drug form: SUSP, Before Dinner, Start date: 08/09/16 16:30:00 DOG BEHAVIORIST, Duration: 30 day, Stop date: 09/07/16 16:30:00 CSTNotes: Take 1 hour before or 2 hours after meal; Expires in 14 days. Shake well before use. (Same as:Prevacid) Compounded Product - formulation not commercially available No Longer Active 08/09/2016 [facility] Protonix 40 mg, Route: NG, Drug form: GRAN/REC, Before Dinner, Dosing Weight 60, kg, Start date: 08/09/16 16:30:00 DOG BEHAVIORIST, Duration: 30 day, Stop date: 09/07/16 16:30:00 DOG BEHAVIORIST Inactive 08/09/2016 [facility] potassium phosphate 30 mmol, 250 mL, Route: IVPB, Drug form: INJ, ONCE, Dosing Weight 60, kg, Start date: 08/09/16 14:20:00 DOG BEHAVIORIST, Stop date: 08/09/16 14:20:00 CSTNotes: (Same as: K Phosphate.) Inactive 08/09/2016 [facility] Fluconazole 200 mg, 100 mL, Route: IVPB, Drug form: INJ, [id number], Dosing Weight 60, kg, Priority: STAT, Start date: 08/08/16 18:27:00 DOG BEHAVIORIST, Duration: 30 day, Stop date: 09/06/16 18:27:00 CSTNotes: (Same as: Diflu can) Do not refrigerate No Longer Active 08/09/2016 [facility] potassium chloride 20 mEq, 100 mL, Route: IVPB, Drug form: INJ, Q2H, Start date: 08/08/16 10:00:00 DOG BEHAVIORIST, Duration: 3 doses or times, Stop date: 08/08/16 14:00:00 CSTNotes: (Same as: KCL) Infuse no faster than 10 mEq/hr if given peripherally. Inactive 08/08/2016 [facility] vancomycin + sodium chloride 0.9% INJ 250 mL 1,000 mg, Route: IVPB, [id number], Start date: 08/07/16 23:00:00 DOG BEHAVIORIST, Stop date: 09/05/16 23:00:00 CSTNotes: TIME CRITICAL MEDICATION (Same As: Vancocin) Infusion rate 2001 mg: infuse over 2.5 hours MEDICATION WASTE Product Size: 1000 mg Product Wasted: ___ mg No Longer Active 08/08/2016 [facility] Vancomycin Pharmacy Following Vancomycin Pharmacy Following, 1 ea, Drug form: MISC, Route: MISC, PRN, PRN Other -See Comment, 08/07/16 22:50:00 DOG BEHAVIORIST, Duration: 30 day, Stop date: 09/06/16 22:49:00 DOG BEHAVIORIST No Longer Active 08/08/2016 [facility] Promethazine 25 mg, 1 mL, Route: IV Central, Drug form: INJ, Q4H, Dosing Weight 60, kg, PRN Nausea & Vomiting, Start date: 08/07/16 22:11:00 DOG BEHAVIORIST, Duration: 30 day, Stop date: 09/06/16 22:10:00 CSTNotes: Do not gi ve IV push. (Same as: Phenergan) No Longer Active 08/08/2016 [facility] albumin human 25% intravenous solution 25 gm, 100 mL, Route: IVPB, Drug form: INJ, Q6H, Dosing Weight 60, kg, Start date: 08/07/16 0:00:00 DOG BEHAVIORIST, Stop date: 08/08/16 18:00:00 CSTNotes: LOT#: Mfg: WASTE: F/P - Red; E -Red (Same as: Albuminar) "blood product derivative" No Longer Active 08/07/2016 [facility] Zosyn 3.375 gm, Route: IVPB, [id number], Dosing Weight 60, kg, CrCl >=20 ml/min infuse over 4 hours, Start date: 08/06/16 21:00:00 DOG BEHAVIORIST, Duration: 30 day, Stop date: 09/05/16 13:00:00 CSTNotes: (Same as: Zosyn) Dosing based on Piperacillin component MEDICATION WASTE Product Size: 3375 mg Product Wasted: ___ mg No Longer Active 08/07/2016 [facility] Morphine 1 mg, 0.25 mL, Route: IVP, Drug form: SOLN, ONCE, Dosing Weight 60, kg, Start date: 08/06/16 17:45:00 DOG BEHAVIORIST, Stop date: 08/06/16 17:45:00 CSTNotes: (Same as:MORPhine Sulfate) Inactive 08/06/2016 [facility] Omnipaque 300 injectable solution 75 mL, Route: IVP, Drug Form: SOLN, Dosing Weight 60, kg, ONCALL, GFR > 45 mL/min, STAT, Start date: 08/06/16 17:41:00 DOG BEHAVIORIST, Duration: 1 doses or timesNotes: (Same as:Omnipaque 300). WASTE: F/P - Black; E - Municipal Trash Bin Inactive 08/06/2016 [facility] Zofran 4 mg, Route: IVP, Drug form: INJ, ONCE, Dosing Weight 60, kg, Start date: 08/06/16 17:25:00 DOG BEHAVIORIST, Stop date: 08/06/16 17:25:00 DOG BEHAVIORIST Inactive 08/06/2016 [facility] Fentanyl 25 microgram, Route: IV, ONCE, Dosing Weight 60, kg, Start date: 08/06/16 17:20:00 DOG BEHAVIORIST, Stop date: 08/06/16 17:20:00 DOG BEHAVIORIST Inactive 08/06/2016 [facility] Fentanyl 25 microgram, Route: IV, ONCE, Dosing Weight 60, kg, Start date: 08/06/16 16:30:00 DOG BEHAVIORIST, Stop date: 08/06/16 16:30:00 DOG BEHAVIORIST Inactive 08/06/2016 [facility] Sodium Chloride 0.154 MEQ/ML Injectable Solution 100 mL, Rate: 10 ml/hr, Infuse over: 10 hr, Route: IVPB, Dosing Weight 60 kg, Total Volume: 100, Infuse at 8 mg / hr for 72 hours for GI bleeding, Start date: 08/06/16 16:13:00 DOG BEHAVIORIST, Duration: 72 hr, Stop date: 08/09/16 16:12:00 DOG BEHAVIORIST No Longer Active 08/06/2016 [facility] Dilaudid 0.5 mg, 0.5 mL, Route: IVP, Drug form: INJ, Q3H, Dosing Weight 60, kg, PRN Pain Score 7-10, Start date: 08/05/16 12:14:00 DOG BEHAVIORIST, Duration: 30 day, Stop date: 09/04/16 12:13:00 DOG BEHAVIORIST No Longer Active 08/05/2016 [facility] Dilaudid 1 mg, Route: IVP, Q3H, Dosing Weight 60, kg, PRN Pain Score 7-10, Start date: 08/05/16 12:13:00 DOG BEHAVIORIST, Duration: 30 day, Stop date: 09/04/16 12:12:00 DOG BEHAVIORIST Inactive 08/05/2016 [facility] Flagyl 500 mg, 100 mL, Route: IVPB, Drug form: INJ, ABXQ8H, Dosing Weight 60, kg, Start date: 07/28/16 20:00:00 DOG BEHAVIORIST, Duration: 30 day, Stop date: 08/27/16 12:00:00 CSTNotes: (Same as: Flagyl) Avoid alcohol. No Longer Active 07/29/2016 [facility] Omnipaque 300 injectable solution 75 mL, Route: IVP, Drug Form: SOLN, Dosing Weight 60, kg, ONCALL, GFR > 45 mL/min, STAT, Start date: 07/27/16 15:51:00 DOG BEHAVIORIST, Duration: 1 doses or timesNotes: (Same as:Omnipaque 300). WASTE: F/P - Black; E - Municipal Trash Bin Inactive 07/27/2016 [facility] Rocephin 1 gm, Route: IVPB, [id number], Dosing Weight 60, kg, Start date: 07/23/16 11:00:00 DOG BEHAVIORIST, Duration: 30 day, Stop date: 08/21/16 11:00:00 CSTNotes: (Same As: Rocephin). Use with 100 mL NS and infuse over 30 min MEDICATION WASTE Product Size: 1000 mg Product Wasted: ___ mg No Longer Active 07/23/2016 [facility] Sodium Chloride 0.9% IV 250 mL, Route: IVPB, Start date: 07/22/16 16:05:00 DOG BEHAVIORIST, Duration: 30 day, Stop date: 09/20/16 16:04:00 DOG BEHAVIORIST, PRN Line Flush No Longer Active 07/22/2016 [facility] BD Normal Saline Flush 10 mL, Route: IVP, Drug Form: INJ, PRN, PRN Line Flush, Start date: 07/22/16 16:05:00 DOG BEHAVIORIST, Duration: 30 day, Stop date: 09/20/16 16:04:00 CSTNotes: (Same as: BD Posiflush) No Longer Active 07/22/2016 [facility] potassium chloride 20 mEq, 100 mL, Route: IVPB, Drug form: INJ, Q2H, Dosing Weight 60, kg, Total dose=40 mEq, Start date: 07/22/16 10:00:00 DOG BEHAVIORIST, Duration: 2 doses or times, Stop date: 07/22/16 12:00:00 DOG BEHAVIORIST, Central LineNotes: (Same as: KCL) Infuse no faster than 10 mEq/hr if given peripherally. Inactive 07/22/2016 [facility] acetaminophen-oxycodone 325 mg-5 mg oral tablet 2 tab, Route: PO, Drug Form: TAB, Q6H, PRN Pain Score 4-6, Start date: 07/22/16 10:00:00 DOG BEHAVIORIST, Duration: 30 day, Stop date: 09/20/16 9:59:00 CSTNotes: Do not exceed 4gm/day of acetaminophen. (Same as: Percocet-5/325) No Longer Active 07/22/2016 [facility] Propranolol 40 mg, 1 tab, Route: PO, Drug form: TAB, QID, Dosing Weight 60, kg, Start date: 07/22/16 9:00:00 DOG BEHAVIORIST, Duration: 30 day, Stop date: 08/20/16 21:00:00 CSTNotes: Give with food. (Same as: Inderal) No Longer Active 07/22/2016 [facility] Normodyne 20 mg, 4 mL, Route: IVP, Drug form: INJ, ONCE, Start date: 07/22/16 2:54:00 DOG BEHAVIORIST, Stop date: 07/22/16 2:54:00 CSTNotes: (Same as: Normodyne, Trandate) Push over 2 minutes Give bolus over 2-3 minutes. Inactive 07/22/2016 [facility] Zosyn 3.375 gm, Route: IVPB, [id number], Dosing Weight 60, kg, Start date: 07/21/16 11:00:00 DOG BEHAVIORIST, Duration: 30 day, Stop date: 08/20/16 5:00:00 CSTNotes: (Same as: Zosyn) Dosing based on Piperacillin component MEDICATION WASTE Product Size: 3375 mg Product Wasted: ___ mg No Longer Active 07/21/2016 [facility] acetaminophen-hydrocodone 325 mg-10 mg oral tablet 1 tab, Route: PO, Drug Form: TAB, Q6H, PRN Pain Score 4-6, Start date: 07/21/16 10:57:00 DOG BEHAVIORIST, Duration: 30 day, Stop date: 08/20/16 10:56:00 CSTNotes: Do not exceed 4gm/day of acetaminophen. (Same as: [place] 325/10) No Longer Active 07/21/2016 [facility] sodium chloride 0.9% 1000 ml INJ 1,000 mL 1,000 mL, Rate: 60 ml/hr, Infuse over: 16.7 hr, Route: IV, Dosing Weight 60 kg, Total Volume: 1,000, Start date: 07/21/16 10:41:00 DOG BEHAVIORIST, Duration: 30 day, Stop date: 08/20/16 10:40:00 DOG BEHAVIORIST Inactive 07/21/2016 [facility] Acetaminophen 325 MG / Oxycodone Hydrochloride 10 MG Oral Tablet 1 tab, Route: PO, Drug Form: TAB, Dosing Weight 60, kg, Q6H, PRN Pain Score 4-6, Start date: 07/21/16 10:17:00 DOG BEHAVIORIST, Duration: 30 day, Stop date: 08/20/16 10:16:00 DOG BEHAVIORIST Inactive 07/21/2016 [facility] potassium chloride 20 mEq, 100 mL, Route: IVPB, Drug form: INJ, Q2H, Dosing Weight 60, kg, Total dose=40 mEq, Start date: 07/21/16 10:00:00 DOG BEHAVIORIST, Duration: 2 doses or times, Stop date: 07/21/16 12:00:00 DOG BEHAVIORIST, Central LineNotes: (Same as: KCL) Infuse no faster than 10 mEq/hr if given peripherally. Inactive 07/21/2016 [facility] potassium chloride 20 mEq, 100 mL, Route: IVPB, Drug form: INJ, Q2H, Dosing Weight 60, kg, Total dose=40 mEq, Start date: 07/19/16 10:00:00 DOG BEHAVIORIST, Duration: 2 doses or times, Stop date: 07/19/16 12:00:00 DOG BEHAVIORIST, Central LineNotes: (Same as: KCL) Infuse no faster than 10 mEq/hr if given peripherally. Inactive 07/19/2016 [facility] potassium chloride 20 mEq oral tablet, extended release 40 mEq, 2 tab, Route: PO, Drug form: ERTAB, Daily, Dosing Weight 60, kg, Start date: 07/19/16 9:00:00 DOG BEHAVIORIST, Duration: 30 day, Stop date: 08/17/16 9:00:00 CSTNotes: (Same as: K-Dur 20) "Do Not Crush" With food and full glass of water No Longer Active 07/19/2016 [facility] TPN solution, adult 1,130 mL 1,130 mL, Rate: 45 ml/hr, Infuse over: 25.1 hr, Route: IV, Dosing Weight 60 kg, Total Volume: 1,130, Start date: 07/18/16 22:00:00 DOG BEHAVIORIST, Stop date: 08/17/16 21:59:00 CSTNotes: Per hospital policy, bag must be changed every 24hr. No Longer Active 07/19/2016 [facility] hydromorphone 0.5 mg, 0.5 mL, Route: IVP, Drug form: INJ, ONCE, Start date: 07/18/16 18:28:00 DOG BEHAVIORIST, Stop date: 07/18/16 18:28:00 DOG BEHAVIORIST Inactive 07/19/2016 [facility] Readi-Cat 2 450 mL, Route: PO, Drug Form: SUSP, ONCALL, Start date: 07/18/16 14:00:00 DOG BEHAVIORIST, Duration: 30 day, Stop date: 08/17/16 13:59:00 CSTNotes: Same as Readi-Cat 2 Inactive 07/18/2016 [facility] Lasix 20 mg, 2 mL, Route: IVP, Drug form: INJ, Q12H, Dosing Weight 60, kg, Priority: NOW, Start date: 07/18/16 13:22:00 DOG BEHAVIORIST, Duration: 30 day, Stop date: 08/17/16 9:00:00 CSTNotes: (Same as: Lasix) No Longer Active 07/18/2016 [facility] potassium chloride 20 mEq, 100 mL, Route: IVPB, Drug form: INJ, Q2H, Dosing Weight 60, kg, Total dose=40 mEq, Start date: 07/18/16 10:00:00 DOG BEHAVIORIST, Duration: 2 doses or times, Stop date: 07/18/16 12:00:00 DOG BEHAVIORIST, Central LineNotes: (Same as: KCL) Infuse no faster than 10 mEq/hr if given peripherally. Inactive 07/18/2016 [facility] Acetaminophen 300 MG / Codeine Phosphate 30 MG Oral Tablet [Tylenol with Codeine #3] 1 tab, Route: PO, Drug Form: TAB, Dosing Weight 60, kg, Q6H, PRN Pain Score 1-5, Start date: 07/17/16 15:43:00 DOG BEHAVIORIST, Duration: 30 day, Stop date: 09/15/16 15:42:00 CSTNotes: Do not exceed 4gm/day of acet aminophen. (Same as: Tylenol with Codeine # 3) No Longer Active 07/17/2016 [facility] Hydromorphone 0.5 mg, 0.5 mL, Route: IV, Drug form: INJ, Q6H, Dosing Weight 65, kg, PRN Pain Score 6-10, Start date: 07/17/16 15:43:00 DOG BEHAVIORIST, Duration: 30 day, Stop date: 08/16/16 15:42:00 DOG BEHAVIORIST No Longer Active 07/17/2016 [facility] Lasix 20 mg, 2 mL, Route: IVP, Drug form: INJ, ONCE, Dosing Weight 143, kg, Start date: 07/16/16 16:13:00 DOG BEHAVIORIST, Stop date: 07/16/16 16:13:00 CSTNotes: (Same as: Lasix) MEDICATION WASTE Product Size: 40 mg Product Wasted: ___ mg Inactive 07/16/2016 [facility] Imodium A-D 2 mg, 1 cap, Route: PO, Drug form: CAP, ONCE, Dosing Weight 143, kg, Start date: 07/16/16 16:00:00 DOG BEHAVIORIST, Stop date: 07/16/16 16:00:00 CSTNotes: (Same as: Imodium) MAX adult dose is 8 caps/day Inactive 07/16/2016 [facility] Lasix 20 mg, 2 mL, Route: IVP, Drug form: INJ, ONCE, Dosing Weight 143, kg, Start date: 07/16/16 15:46:00 DOG BEHAVIORIST, Stop date: 07/16/16 15:46:00 CSTNotes: (Same as: Lasix) Inactive 07/16/2016 [facility] Lasix 20 mg, 2 mL, Route: IVP, Drug form: INJ, ONCE, Dosing Weight 143, kg, Start date: 07/16/16 13:31:00 DOG BEHAVIORIST, Stop date: 07/16/16 13:31:00 CSTNotes: (Same as: Lasix) Inactive 07/16/2016 [facility] Imodium A-D 2 mg, 1 cap, Route: PO, Drug form: CAP, ONCE, Dosing Weight 143, kg, Start date: 07/16/16 13:30:00 DOG BEHAVIORIST, Stop date: 07/16/16 13:30:00 CSTNotes: (Same as: Imodium) MAX adult dose is 8 caps/day Inactive 07/16/2016 [facility] DuoNeb inhalation solution 3 mL, Route: NEB, Drug Form: SOLN, Q6H, PRN Shortness of breath, Start date: 07/15/16 17:49:00 DOG BEHAVIORIST, Duration: 30 day, Stop date: 09/13/16 17:48:00 CSTNotes: (Same as: Duoneb) No Longer Active 07/15/2016 [facility] Metoprolol 5 mg, 5 mL, Route: IVP, Drug form: INJ, ONCE, Dosing Weight 143, kg, Start date: 07/15/16 13:43:00 DOG BEHAVIORIST, Stop date: 07/15/16 13:43:00 CSTNotes: (Same as: Lopressor) Push over 2 minutes Inactive 07/15/2016 [facility] potassium chloride 10 mEq, 100 mL, Route: IVPB, Drug form: INJ, Q1H, Dosing Weight 143, kg, Total Dose=40 meq, Start date: 07/15/16 12:00:00 DOG BEHAVIORIST, Duration: 4 doses or times, Stop date: 07/15/16 15:00:00 DOG BEHAVIORIST, Peripheral LineNotes: Infuse at a rate of 10 mEq/hr. (Same as: KCL) Inactive 07/15/2016 [facility] Lasix 20 mg, 2 mL, Route: IV, Drug form: INJ, ONCE, Start date: 07/12/16 13:10:00 DOG BEHAVIORIST, Stop date: 07/12/16 13:10:00 CSTNotes: (Same as: Lasix) Inactive 07/12/2016 [facility] loperamide 2 mg, 1 cap, Route: PO, Drug form: CAP, ONCE, Start date: 07/10/16 15:00:00 DOG BEHAVIORIST, Stop date: 07/10/16 15:00:00 CSTNotes: (Same as: Imodium) MAX adult dose is 8 caps/day Inactive 07/10/2016 [facility] potassium chloride 10 mEq, 100 mL, Route: IVPB, Drug form: INJ, Q1H, Dosing Weight 65, kg, Total Dose=40 meq, Start date: 07/10/16 14:00:00 DOG BEHAVIORIST, Duration: 4 doses or times, Stop date: 07/10/16 17:00:00 DOG BEHAVIORIST, Peripheral LineNotes: Infuse at a rate of 10 mEq/hr. (Same as: KCL) Inactive 07/10/2016 [facility] potassium chloride 20 mEq, 100 mL, Route: IVPB, Drug form: INJ, Q2H, Start date: 07/08/16 11:30:00 DOG BEHAVIORIST, Duration: 2 doses or times, Stop date: 07/08/16 13:30:00 CSTNotes: (Same as: KCL) Infuse no faster than 10 mEq/hr if given peripherally. Inactive 07/08/2016 [facility] potassium chloride 10 mEq, Route: IVPB, Q1H, Dosing Weight 65, kg, Total Dose=40 meq, Start date: 07/08/16 11:00:00 DOG BEHAVIORIST, Duration: 4 doses or times, Stop date: 07/08/16 14:00:00 DOG BEHAVIORIST, Peripheral Line Inactive 07/08/2016 [facility] potassium chloride 20 mEq oral tablet, extended release 20 mEq, 1 tab, Route: PO, Drug form: ERTAB, Daily, Dosing Weight 65, kg, Start date: 07/08/16 9:00:00 DOG BEHAVIORIST, Duration: 30 day, Stop date: 08/06/16 9:00:00 CSTNotes: (Same as: K-Dur 20) "Do Not Crush" With food and full glass of water No Longer Active 07/08/2016 [facility] Tapazole 10 mg, 1 tab, Route: PO, Drug form: TAB, Q8H, Dosing Weight 49.5, kg, Start date: 07/07/16 9:30:00 DOG BEHAVIORIST, Duration: 30 day, Stop date: 09/05/16 8:00:00 DOG BEHAVIORIST No Longer Active 07/07/2016 [facility] fat emulsion, intravenous 250 mL, 31.25 ml/hr, Route: IV, Drug Form: INJ, Q-M-W-F, Start date: 07/06/16 22:00:00 DOG BEHAVIORIST, Duration: 30 day, Stop date: 08/31/16 22:00:00 CSTNotes: (Same as: Intralipid, Liposyn) Infuse through a 1.2 micron filter No Longer Active 07/07/2016 [facility] TPN solution, adult 2,042 mL 2,042 mL, Rate: 83 ml/hr, Infuse over: 24.6 hr, Route: IV, Dosing Weight 65 kg, Total Volume: 2,042, Start date: 07/06/16 22:00:00 DOG BEHAVIORIST, Stop date: 07/18/16 22:00:00 CSTNotes: Per hospital policy, bag must be changed every 24hr. No Longer Active 07/07/2016 [facility] pantoprazole 40 mg, 1 tab, Route: PO, Drug form: ECTAB, Before Dinner, Dosing Weight 49.5, kg, Start date: 07/06/16 16:30:00 DOG BEHAVIORIST, Duration: 30 day, Stop date: 09/03/16 16:30:00 CSTNotes: Tablet should not be chewed or crushed. (Same as: Protonix) No Longer Active 07/06/2016 [facility] Hydromorphone 0.5 mg, 0.5 mL, Route: IV, Drug form: INJ, Q3H, Dosing Weight 65, kg, PRN Pain Score 6-10, Start date: 07/06/16 13:54:00 DOG BEHAVIORIST, Duration: 30 day, Stop date: 08/05/16 13:53:00 DOG BEHAVIORIST No Longer Active 07/06/2016 [facility] Morphine 30 mg, 30 mL, Route: IV, Initial Loading Dose: 2 mg, BOMBSIGHT SPECIALIST Dose: 1 mg, BOMBSIGHT SPECIALIST Lockout: 10 minutes, Continuous Basal Rate: 0 mg, 4 Hour Limit (In MG): 30, Drug Form: INJ, Continuous, Start date: 07/06/16 10: 00:00 DOG BEHAVIORIST, Duration: 30 day, Stop date: 08/05/16...Notes: Dose: Delay: Basal rate: 4hr limit: (Same as:Franklyni-Mayi) Inactive 07/06/2016 [facility] potassium chloride 20 mEq, 100 mL, Route: IVPB, Drug form: INJ, Q2H, Dosing Weight 65, kg, Total dose=60 mEq, Start date: 07/06/16 10:00:00 DOG BEHAVIORIST, Duration: 3 doses or times, Stop date: 07/06/16 14:00:00 DOG BEHAVIORIST, Central LineNotes: (Same as: KCL) Infuse no faster than 10 mEq/hr if given peripherally. Inactive 07/06/2016 [facility] Naloxone 0.04 mg, 0.1 mL, Route: IVP, Drug form: INJ, Q2MIN, Dosing Weight 65, kg, PRN Narcotic Reversal, Start date: 07/06/16 9:42:00 DOG BEHAVIORIST, Duration: 30 day, Stop date: 08/05/16 9:41:00 CSTNotes: Same as Narcan No Longer Active 07/06/2016 [facility] Magnesium Oxide 400 mg, 1 tab, Route: PO, Drug form: TAB, TID, Dosing Weight 49.5, kg, Start date: 07/06/16 9:00:00 DOG BEHAVIORIST, Duration: 30 day, Stop date: 09/03/16 17:00:00 CSTNotes: (Same as: Mag-Ox 400) Magnesium oxide [id number] elemental magnesium Dose=____mg magnesium oxide (___mg elemental magnesium) No Longer Active 07/06/2016 [facility] Cholestyramine Resin 4 gm, 1 pkt, Route: PO, Drug form: PDR/REC, Daily, Dosing Weight 49.5, kg, Start date: 07/06/16 9:00:00 DOG BEHAVIORIST, Duration: 30 day, Stop date: 09/03/16 9:00:00 CSTNotes: (Same As: Questran) No Longer Active 07/06/2016 [facility] Calcium Carbonate 500 MG Chewable Tablet 1,000 mg, 2 tab, Route: CHEW, Drug form: CHEWTAB, TID, Dosing Weight 49.5, kg, Start date: 07/06/16 9:00:00 DOG BEHAVIORIST, Duration: 30 day, Stop date: 09/03/16 17:00:00 CSTNotes: (Same As: Tums) Calcium Carbonate 500 rl=601 mg elemental calcium Dose= mg calcium carbonate ( mg elemental calcium) No Longer Active 07/06/2016 [facility] Magnesium Sulfate 1 gm, 2 mL, Route: IV, ONCE, Dosing Weight 65, kg, Priority: NOW, Start date: 07/06/16 8:23:00 DOG BEHAVIORIST, Stop date: 07/06/16 8:23:00 CSTNotes: (Same as: MgSO4) WASTE: F/P - Sink; E - Municipal Trash Bin MEDICATION WASTE Product Size: 1000 mg Product Wasted: ___ mg Inactive 07/06/2016 [facility] Calcium Gluconate 2,000 mg, 20 mL, Route: IVPB, ONCE, Dosing Weight 65, kg, Start date: 07/06/16 8:23:00 DOG BEHAVIORIST, Stop date: 07/06/16 8:23:00 CSTNotes: WASTE: F/P - Sink; E - Municipal Trash Bin Inactive 07/06/2016 [facility] Amylases 381703 UNT / Endopeptidases 62921 UNT / Lipase 76969 UNT Enteric Coated Capsule [Creon 24] 2 cap, Route: PO, Drug Form: DRC, Dosing Weight 49.5, kg, TID-Before Meals, Start date: 07/06/16 7:30:00 DOG BEHAVIORIST, Duration: 30 day, Stop date: 09/03/16 16:30:00 CSTNotes: Same as: Creon DRC 24 : lipase 2 4,000 units, protease 76,000 units, amylase 120,000 units No Longer Active 07/06/2016 [facility] Methimazole 10 mg, 1 tab, Route: PO, Drug form: TAB, Q8H, Dosing Weight 49.5, kg, Start date: 07/06/16 0:00:00 DOG BEHAVIORIST, Duration: 30 day, Stop date: 08/04/16 16:00:00 DOG BEHAVIORIST No Longer Active 07/06/2016 [facility] Magnesium Oxide 400 mg, 1 tab, Route: PO, Drug form: TAB, TID, Dosing Weight 49.5, kg, Start date: 07/05/16 22:00:00 DOG BEHAVIORIST, Duration: 30 day, Stop date: 08/04/16 14:00:00 CSTNotes: (Same as: Mag-Ox 400) Magnesium oxid e [id number] elemental magnesium Dose=____mg magnesium oxide (___mg elemental magnesium) Inactive 07/06/2016 [facility] fat emulsion, intravenous 250 mL IV, 31.25 ml/hr, Start date: 07/05/16 22:00:00 DOG BEHAVIORIST, Duration: 8, 250 ml, 49.5Notes: (Same as: Intralipid, Liposyn) Infuse through a 1.2 micron filter Inactive 07/06/2016 [facility] Calcium Carbonate 1,000 mg, 2 tab, Route: CHEW, Drug form: CHEWTAB, TID, Dosing Weight 49.5, Start date: 07/05/16 22:00:00 DOG BEHAVIORIST, Duration: 30 day, Stop date: 08/04/16 14:00:00 CSTNotes: (Same As: Tums) Calcium Carbonate 500 fb=168 mg elemental calcium Dose= mg calcium carbonate ( mg elemental calcium) Inactive 07/06/2016 [facility] TPN, adult solution 2,050 mL 2,050 mL, Rate: 83 ml/hr, Infuse over: 24.7 hr, Route: IV, Dosing Weight 49.5 kg, Total Volume: 2,050, Start date: 07/05/16 22:00:00 DOG BEHAVIORIST, Duration: 1 day, Stop date: 07/06/16 21:59:00 DOG BEHAVIORIST Inactive 07/06/2016 [facility] Levemir 10 unit, 0.1 mL, Route: SUB-Q, Drug form: INJ, Bedtime, Dosing Weight 49.5, kg, Start date: 07/05/16 21:00:00 DOG BEHAVIORIST, Duration: 30 day, Stop date: 08/03/16 21:00:00 CSTNotes: Same as Levemir Do not hold insulin without contacting prescriber WASTE: F/P - Black; E - Municipal Trash Bin "single patient use only" Inactive 07/06/2016 [facility] Propranolol 40 mg, 1 tab, Route: PO, Drug form: TAB, QID, Dosing Weight 49.5, kg, Start date: 07/05/16 21:00:00 DOG BEHAVIORIST, Duration: 30 day, Stop date: 08/04/16 17:00:00 CSTNotes: Give with food. (Same as: Inderal) No Longer Active 07/06/2016 [facility] insulin detemir 18 unit, 0.18 mL, Route: SUB-Q, Drug form: INJ, Bedtime, Dosing Weight 49.5, kg, Start date: 07/05/16 21:00:00 DOG BEHAVIORIST, Duration: 30 day, Stop date: 09/02/16 21:00:00 CSTNotes: Same as Levemir Do not hold insulin without contacting prescriber WASTE: F/P - Black; E - Municipal Trash Bin "single patient use only" No Longer Active 07/06/2016 [facility] Enoxaparin 40 mg, 0.4 mL, Route: SUB-Q, Drug form: INJ, [id number], Dosing Weight 49.5, kg, Start date: 07/05/16 18:00:00 DOG BEHAVIORIST, Duration: 30 day, Stop date: 09/02/16 18:00:00 CSTNotes: (Same as: Lovenox) No Longer Active 07/06/2016 [facility] albumin human 25% intravenous solution 12.5 gm, 50 mL, Route: IVPB, Drug form: INJ, Q6H, Dosing Weight 49.5, kg, Start date: 07/05/16 18:00:00 DOG BEHAVIORIST, Duration: 30 day, Stop date: 08/04/16 12:00:00 CSTNotes: LOT#: Mfg: WASTE: F/P - Red; E -Red (Same as: Albuminar) "blood product derivative" No Longer Active 07/06/2016 [facility] Insulin, Aspart, Human 3 unit, 0.03 mL, Route: SUB-Q, Drug form: SOLN, Bedtime, Dosing Weight 49.5, kg, PRN Blood Glucose Results, Start date: 07/05/16 17:21:00 DOG BEHAVIORIST, Duration: 30 day, Stop date: 09/03/16 17:20:00 CSTNotes: Roll in palms of hands gently; Do not shake vigorously. (Same as: NovoLOG) "single patient use only" WASTE: F/P - Black; E - Municipal Trash Bin Stable for 28 days at room temperature. Expires in days from Date No Longer Active 07/05/2016 [facility] Glucagon 1 mg, Route: IM, Drug form: PDR/INJ, PRN, Dosing Weight 49.5, kg, PRN Blood Glucose Results, Start date: 07/05/16 17:21:00 DOG BEHAVIORIST, Duration: 30 day, Stop date: 09/03/16 17:20:00 DOG BEHAVIORIST No Longer Active 07/05/2016 [facility] Dextrose 50% Syringe 25 gm, 50 mL, Route: IVP, Drug Form: INJ, Dosing Weight 49.5, kg, PRN, PRN Blood Glucose Results, Start date: 07/05/16 17:21:00 DOG BEHAVIORIST, Duration: 30 day, Stop date: 09/03/16 17:20:00 DOG BEHAVIORIST No Longer Active 07/05/2016 [facility] Oxycodone Hydrochloride 5 MG Oral Tablet 5 mg, 1 tab, Route: PO, Drug form: TAB, Q4H, Dosing Weight 49.5, kg, PRN Pain Score 4-6, Start date: 07/05/16 17:13:00 DOG BEHAVIORIST, Duration: 30 day, Stop date: 08/04/16 17:12:00 CSTNotes: (Same as: Roxicodone) No Longer Active 07/05/2016 [facility] Hydromorphone 0.5 mg, 0.5 mL, Route: IVP, Drug form: INJ, Q3H, Dosing Weight 49.5, kg, PRN Pain Score 6-10, Start date: 07/05/16 17:13:00 DOG BEHAVIORIST, Duration: 30 day, Stop date: 08/04/16 17:12:00 DOG BEHAVIORIST No Longer Active 07/05/2016 [facility] Docusate 100 mg, 1 cap, Route: PO, Drug form: CAP, BID, Dosing Weight 49.5, kg, PRN Constipation, Start date: 07/05/16 17:10:00 DOG BEHAVIORIST, Duration: 30 day, Stop date: 09/03/16 17:09:00 CSTNotes: (Same as: Colace) (Do Not Crush) No Longer Active 07/05/2016 [facility] Ondansetron 4 mg, 2 mL, Route: IVP, Drug form: INJ, Q6H, Dosing Weight 49.5, kg, PRN Nausea & Vomiting, Start date: 07/05/16 17:10:00 DOG BEHAVIORIST, Duration: 30 day, Stop date: 09/03/16 17:09:00 CSTNotes: (Same as: Sotero) MEDICATION WASTE Product Size: 4 mg Product Wasted: ___ mg No Longer Active 07/05/2016 [facility] Acetaminophen 650 mg, 2 tab, Route: PO, Drug form: TAB, Q4H, Dosing Weight 49.5, kg, PRN Pain 1-3/Temp > 100.4 F, Start date: 07/05/16 17:10:00 DOG BEHAVIORIST, Duration: 30 day, Stop date: 09/03/16 17:09:00 CSTNotes: Do not exceed 4 gm/day. (Same as: Tylenol) No Longer Active 07/05/2016 [facility] acetaminophen 325 mg oral tablet 650 mg=2 tab, PO, Q6H, PRN Pain 1-3/Temp > 100.4 F, 0 Refill(s) On Hold 07/05/2016 [facility] Cholestyramine Resin 4 gm=1 pkt, PO, Daily, 0 Refill(s) On Hold 07/05/2016 [facility] hydromorphone 100 mg/100 mL-NaCl 0.9% intravenous solution 0.5 mg=0.5 mL, IV, Q3H, PRN Pain Score 6-10, 0 Refill(s) On Hold 07/05/2016 [facility] propranolol 40 mg oral tablet 40 mg=1 tab, PO, QID, 0 Refill(s) On Hold 07/05/2016 [facility] pantoprazole 40 mg oral enteric coated tablet 40 mg=1 tab, PO, Before Dinner, 0 Refill(s) On Hold 07/05/2016 [facility] Amylases 327076 UNT / Endopeptidases 90050 UNT / Lipase 82222 UNT Enteric Coated Capsule [Creon 24] 2 cap, PO, TID-Before Meals, 0 Refill(s) On Hold 07/05/2016 [facility] Oxycodone Hydrochloride 5 MG Oral Tablet 5 mg=1 tab, PO, Q4H, PRN Pain Score 4-6, 0 Refill(s) On Hold 07/05/2016 [facility] magnesium oxide 400 mg oral tablet 400 mg=1 tab, PO, TID, 0 Refill(s) On Hold 07/05/2016 [facility] insulin detemir 100 units/mL subcutaneous solution 10 unit, SUB-Q, Bedtime, 0 Refill(s) On Hold 07/05/2016 [facility] Enoxaparin 40 mg=0.4 mL, SUB-Q, [id number], 0 Refill(s) On Hold 07/05/2016 [facility] albumin human 25% intravenous solution 12.5 gm=50 mL, IVPB, Q6H, 0 Refill(s) On Hold 07/05/2016 [facility] Calcium Carbonate 500 MG Chewable Tablet 1,000 mg=2 tab, CHEW, TID, 0 Refill(s) On Hold 07/05/2016 [facility] potassium chloride 10 mEq, 100 mL, Route: IVPB, Drug form: INJ, Q1H, Start date: 07/05/16 13:00:00 DOG BEHAVIORIST, Duration: 4 doses or times, Stop date: 07/05/16 16:00:00 CSTNotes: Infuse at a rate of 10 mEq/hr. (Same as: KCL) Inactive 07/05/2016 [facility] potassium chloride 10 mEq, 100 mL, Route: IVPB, Drug form: INJ, Q1H, Start date: 07/05/16 7:00:00 DOG BEHAVIORIST, Duration: 4 doses or times, Stop date: 07/05/16 10:00:00 CSTNotes: Infuse at a rate of 10 mEq/hr. (Same as: KCL) Inactive 07/05/2016 [facility] Calcium Gluconate 2,000 mg, 20 mL, Route: IVPB, ONCE, Dosing Weight 49.5, kg, Start date: 07/05/16 6:41:00 DOG BEHAVIORIST, Stop date: 07/05/16 6:41:00 CSTNotes: WASTE: F/P - Sink; E - Municipal Trash Bin Inactive 07/05/2016 [facility] Magnesium Sulfate 2 gm, 50 mL, Route: IVPB, Drug form: INJ, ONCE, Dosing Weight 49.5, kg, Start date: 07/05/16 6:41:00 DOG BEHAVIORIST, Duration: 2 hr, Stop date: 07/05/16 6:41:00 CSTNotes: WASTE: F/P - Sink; E - Municipal Trash Bin Inactive 07/05/2016 [facility] potassium chloride 40 mEq, Route: IV, ONCE, Dosing Weight 49.5, kg, Start date: 07/05/16 6:40:00 DOG BEHAVIORIST, Stop date: 07/05/16 6:40:00 DOG BEHAVIORIST Inactive 07/05/2016 [facility] TPN, adult solution 2,050 mL 2,050 mL, Rate: 83 ml/hr, Infuse over: 24.7 hr, Route: IV, Dosing Weight 49.5 kg, Total Volume: 2,050, Start date: 07/04/16 22:00:00 DOG BEHAVIORIST, Duration: 1 day, Stop date: 07/05/16 21:59:00 DOG BEHAVIORIST No Longer Active 07/05/2016 [facility] fat emulsion, intravenous 250 mL IV, 31.25 ml/hr, Start date: 07/04/16 22:00:00 DOG BEHAVIORIST, Duration: 8, 250 ml, 49.5Notes: (Same as: Intralipid, Liposyn) Infuse through a 1.2 micron filter No Longer Active 07/05/2016 [facility] Lasix 40 mg, 4 mL, Route: IV, Drug form: INJ, ONCE, Dosing Weight 49.5, kg, Start date: 07/04/16 17:00:00 DOG BEHAVIORIST, Stop date: 07/04/16 17:00:00 CSTNotes: (Same as: Lasix) MEDICATION WASTE Product Size: 40 mg Product Wasted: ___ mg Inactive 07/04/2016 [facility] albumin human 25% intravenous solution 25 gm, 100 mL, Route: IVPB, Drug form: INJ, ONCE, Dosing Weight 49.5, kg, Start date: 07/04/16 16:00:00 DOG BEHAVIORIST, Stop date: 07/04/16 16:00:00 CSTNotes: Lot #: Mfg: (Same as: Plasbumin-25) "blood product derivative" WASTE: F/P - Red; E -Red MEDICATION WASTE Product Size: 25 gm Product Wasted: ___ gm Inactive 07/04/2016 [facility] Oxycodone Hydrochloride 5 MG Oral Tablet 5 mg, 1 tab, Route: PO, Drug form: TAB, Q4H, Dosing Weight 49.5, kg, PRN Pain Score 4-6, Start date: 07/04/16 8:46:00 DOG BEHAVIORIST, Duration: 30 day, Stop date: 08/03/16 8:45:00 CSTNotes: (Same as: Roxicodone) No Longer Active 07/04/2016 [facility] Tylenol 650 mg, 2 tab, Route: PO, Drug form: TAB, Q6H, Dosing Weight 49.5, kg, PRN Pain 1-3/Temp > 100.4 F, Start date: 07/03/16 14:51:00 DOG BEHAVIORIST, Duration: 30 day, Stop date: 08/02/16 14:50:00 CSTNotes: Do not exceed 4 gm/day. (Same as: Tylenol) No Longer Active 07/03/2016 [facility] potassium chloride 40 mEq, 30 mL, Route: PO, Drug form: LIQ, ONCE, Dosing Weight 49.5, kg, Start date: 07/03/16 8:42:00 DOG BEHAVIORIST, Stop date: 07/03/16 8:42:00 CSTNotes: (Same as: Potassium Chloride) Inactive 07/03/2016 [facility] Roxicodone 10 mg, 2 tab, Route: PO, Drug form: TAB, Q4H, PRN Pain Score 4-6, Start date: 07/02/16 16:57:00 DOG BEHAVIORIST, Duration: 30 day, Stop date: 08/01/16 16:56:00 CSTNotes: (Same as: Roxicodone) No Longer Active 07/02/2016 [facility] Tylenol 325 mg, 1 tab, Route: PO, Drug form: TAB, Q6H, PRN Pain Score 4-6, Start date: 07/02/16 16:57:00 DOG BEHAVIORIST, Duration: 30 day, Stop date: 08/01/16 16:56:00 CSTNotes: Do not exceed 4 gm/day. (Same as: Tylenol) No Longer Active 07/02/2016 [facility] Acetaminophen 325 MG / Oxycodone Hydrochloride 10 MG Oral Tablet [Percocet 10/325] 1 tab, Route: PO, Drug Form: TAB, Dosing Weight 49.5, kg, Q6H, PRN Pain Score 4-6, Start date: 07/02/16 16:56:00 DOG BEHAVIORIST, Duration: 30 day, Stop date: 08/01/16 16:55:00 DOG BEHAVIORIST Inactive 07/02/2016 [facility] Magnesium Sulfate 1 gm, 100 mL, Route: IVPB, Drug form: INJ, ONCE, Dosing Weight 49.5, kg, Start date: 07/01/16 7:08:00 DOG BEHAVIORIST, Stop date: 07/01/16 7:08:00 CSTNotes: WASTE: F/P - Sink; E - Municipal Trash Bin Inactive 07/01/2016 [facility] Calcium Carbonate 1,000 mg, Route: CHEW, Drug form: CHEWTAB, Bedtime, Dosing Weight 49.5, Start date: 06/29/16 21:00:00 DOG BEHAVIORIST, Duration: 30 day, Stop date: 07/28/16 21:00:00 CSTNotes: (Same As: Tums) Calcium Carbonate 5 00 mp=735 mg elemental calcium Dose= mg calcium carbonate ( mg elemental calcium) No Longer Active 06/30/2016 [facility] sodium chloride 0.9% 1000 ml INJ 1,000 mL 1,000 mL, Rate: 50 ml/hr, Infuse over: 20 hr, Route: IV, Dosing Weight 49.5 kg, Total Volume: 1,000, Start date: 06/29/16 13:33:00 DOG BEHAVIORIST, Stop date: 07/29/16 13:32:00 DOG BEHAVIORIST No Longer Active 06/29/2016 [facility] Calcium Carbonate 500 mg, 1 tab, Route: PO, Drug form: CHEWTAB, BID, Dosing Weight 49.5, kg, Start date: 06/29/16 9:00:00 DOG BEHAVIORIST, Duration: 30 day, Stop date: 07/28/16 18:00:00 CSTNotes: (Same As: Zoey) Calcium Carbonate 500 na=721 mg elemental calcium Dose= mg calcium carbonate ( mg elemental calcium) No Longer Active 06/29/2016 [facility] Calcium Carbonate 500 mg, 1 tab, Route: CHEW, Drug form: CHEWTAB, ONCE, Dosing Weight 49.5, kg, Start date: 06/29/16 6:15:00 DOG BEHAVIORIST, Stop date: 06/29/16 6:15:00 CSTNotes: (Same As: Zoey) Calcium Carbonate 500 eq=172 mg elemental calcium Dose= mg calcium carbonate ( mg elemental calcium) Inactive 06/29/2016 [facility] Nitroglycerin 0.4 MG Sublingual Tablet 0.4 mg, 1 tab, Route: SL, Drug form: TAB, Q5Min, Dosing Weight 49.5, kg, PRN Chest Pain, Start date: 06/28/16 23:44:00 DOG BEHAVIORIST, Duration: 30 day, Stop date: 07/28/16 23:43:00 CSTNotes: (Same as:Nitroquick, Nitrostat) "Do Not Crush" Sublingual tablet No Longer Active 06/29/2016 [facility] Atropine 0.5 mg, 5 mL, Route: IVP, Drug form: INJ, PRN, Dosing Weight 49.5, kg, PRN Bradycardia, Start date: 06/28/16 23:44:00 DOG BEHAVIORIST, Duration: 30 day, Stop date: 07/28/16 23:43:00 DOG BEHAVIORIST, symtaomaticbradycardia heart rate less than 40 No Longer Active 06/29/2016 [facility] PHOS-NaK 2 pkt, Route: PO, Drug Form: PDR/REC, Dosing Weight 49.5, kg, ONCE, Start date: 06/27/16 9:09:00 DOG BEHAVIORIST, Stop date: 06/27/16 9:09:00 CSTNotes: (Same as: Phos-NaK) Each 1.5 gm pkt has 250mg phosphorous. Mix w/2.5oz water and stir. Inactive 06/27/2016 [facility] Calcium Gluconate 2,000 mg, 20 mL, Route: IVPB, ONCE, Dosing Weight 49.5, kg, Start date: 06/27/16 9:09:00 DOG BEHAVIORIST, Stop date: 06/27/16 9:09:00 CSTNotes: WASTE: F/P - Sink; E - Municipal Trash Bin Inactive 06/27/2016 [facility] Bumex 1 mg, 4 mL, Route: IVP, Drug form: INJ, ONCE, Dosing Weight 49.5, kg, Start date: 06/26/16 15:01:00 DOG BEHAVIORIST, Stop date: 06/26/16 15:01:00 CSTNotes: (Same As: Bumex) Inactive 06/26/2016 [facility] Magnesium Sulfate 3 gm, 6 mL, Route: IV, ONCE, Dosing Weight 49.5, kg, Start date: 06/26/16 13:08:00 DOG BEHAVIORIST, Stop date: 06/26/16 13:08:00 CSTNotes: (Same as: MgSO4) WASTE: F/P - Sink; E - Municipal Trash Bin MEDICATION WASTE Product Size: 1000 mg Product Wasted: ___ mg Inactive 06/26/2016 [facility] Calcium Gluconate 2,000 mg, 20 mL, Route: IVPB, ONCE, Dosing Weight 49.5, kg, Start date: 06/26/16 13:08:00 DOG BEHAVIORIST, Stop date: 06/26/16 13:08:00 CSTNotes: WASTE: F/P - Sink; E - Municipal Trash Bin Inactive 06/26/2016 [facility] Prednisone 20 mg, 1 tab, Route: PO, Drug form: TAB, Daily, Dosing Weight 49.5, kg, Start date: 06/26/16 9:00:00 DOG BEHAVIORIST, Duration: 5 day, Stop date: 06/30/16 9:00:00 CSTNotes: Take with food. No Longer Active 06/26/2016 [facility] Magnesium Oxide 400 mg, 1 tab, Route: PO, Drug form: TAB, BID, Dosing Weight 49.5, kg, Start date: 06/25/16 17:00:00 DOG BEHAVIORIST, Duration: 30 day, Stop date: 07/25/16 9:00:00 CSTNotes: (Same as: Mag-Ox 400) Magnesium oxide [id number] elemental magnesium Dose=____mg magnesium oxide (___mg elemental magnesium) No Longer Active 06/25/2016 [facility] Calcium Gluconate 1,000 mg, 10 mL, Route: IVPB, ONCE, Dosing Weight 49.5, kg, Start date: 06/25/16 12:30:00 DOG BEHAVIORIST, Stop date: 06/25/16 12:30:00 CSTNotes: WASTE: F/P - Sink; E - Municipal Trash Bin Inactive 06/25/2016 [facility] Magnesium Sulfate 2 gm, 50 mL, Route: IV, Drug form: INJ, ONCE, Dosing Weight 49.5, kg, Start date: 06/25/16 11:54:00 DOG BEHAVIORIST, Stop date: 06/25/16 11:54:00 CSTNotes: WASTE: F/P - Sink; E - Municipal Trash Bin Inactive 06/25/2016 [facility] Calcium Carbonate 500 mg, 1 tab, Route: PO, Drug form: CHEWTAB, TID, Dosing Weight 49.5, kg, Start date: 06/25/16 9:00:00 DOG BEHAVIORIST, Duration: 30 day, Stop date: 07/24/16 17:00:00 CSTNotes: (Same As: Tums) Calcium Carbonate 500 [id number] mg elemental calcium Dose= mg calcium carbonate ( mg elemental calcium) No Longer Active 06/25/2016 [facility] Cholestyramine Resin 4 gm, 1 pkt, Route: PO, Drug form: PDR/REC, Daily, Dosing Weight 49.5, kg, Start date: 06/25/16 9:00:00 DOG BEHAVIORIST, Duration: 30 day, Stop date: 07/24/16 9:00:00 CSTNotes: (Same As: Questran) No Longer Active 06/25/2016 [facility] Amylases [id number] UNT / Endopeptidases 79863 UNT / Lipase 19277 UNT Enteric Coated Capsule [Creon 24] 2 cap, Route: PO, Drug Form: DRC, Dosing Weight 49.5, kg, TID-Before Meals, Start date: 06/25/16 8:35:00 DOG BEHAVIORIST, Duration: 30 day, Stop date: 07/25/16 7:30:00 CSTNotes: Same as: Creon DRC 24 : lipase 24 ,000 units, protease 76,000 units, amylase 120,000 units No Longer Active 06/25/2016 [facility] potassium chloride 40 mEq, 2 tab, Route: PO, Drug form: ERTAB, Q12H, Dosing Weight 49.5, kg, Start date: 06/24/16 21:00:00 DOG BEHAVIORIST, Duration: 30 day, Stop date: 07/24/16 9:00:00 CSTNotes: (Same as: K-Dur 20) "Do Not Crush" With food and full glass of water No Longer Active 06/25/2016 [facility] Protonix 40 mg, 1 tab, Route: PO, Drug form: ECTAB, Before Dinner, Dosing Weight 49.5, kg, Start date: 06/24/16 15:44:00 DOG BEHAVIORIST, Duration: 30 day, Stop date: 07/23/16 16:30:00 CSTNotes: Tablet should not be chewed or crushed. (Same as: Protonix) No Longer Active 06/24/2016 [facility] Magnesium Sulfate 2 gm, 50 mL, Route: IVPB, Drug form: INJ, ONCE, Dosing Weight 49.5, kg, Total dose=2 gm, Start date: 06/24/16 9:33:00 DOG BEHAVIORIST, Duration: 1 doses or times, Stop date: 06/24/16 9:33:00 CSTNotes: WASTE: F/P - Sink; E - Municipal Trash Bin Inactive 06/24/2016 [facility] potassium chloride 40 mEq, Route: PO, TID, Dosing Weight 49.5, kg, Start date: 06/23/16 13:00:00 DOG BEHAVIORIST, Duration: 30 day, Stop date: 07/23/16 9:00:00 DOG BEHAVIORIST Inactive 06/23/2016 [facility] [facility] potassium chloride 40 mEq, 2 tab, Route: PO, Drug form: ERTAB, Q6H, Dosing Weight 49.5, kg, Start date: 06/23/16 12:00:00 DOG BEHAVIORIST, Duration: 4 doses or times, Stop date: 06/24/16 6:00:00 CSTNotes: (Same as: K- Dur 20) "Do Not Crush" With food and full glass of water No Longer Active 06/23/2016 [facility] potassium chloride 10 mEq, 100 mL, Route: IVPB, Drug form: INJ, Q1H, Dosing Weight 49.5, kg, Total Dose=40 meq, Start date: 06/23/16 11:00:00 DOG BEHAVIORIST, Duration: 4 doses or times, Stop date: 06/23/16 14:00:00 DOG BEHAVIORIST, Peripheral LineNotes: Infuse at a rate of 10 mEq/hr. (Same as: KCL) Inactive 06/23/2016 [facility] Magnesium Sulfate 6 gm, 150 mL, Route: IV, Drug form: INJ, ONCE, Dosing Weight 49.5, kg, Start date: 06/23/16 6:17:00 DOG BEHAVIORIST, Stop date: 06/23/16 6:17:00 CSTNotes: WASTE: F/P - Sink; E - Municipal Trash Bin Inactive 06/23/2016 [facility] potassium chloride 40 mEq, 2 tab, Route: PO, Drug form: ERTAB, ONCE, Dosing Weight 49.5, kg, Start date: 06/22/16 18:00:00 DOG BEHAVIORIST, Stop date: 06/22/16 18:00:00 CSTNotes: (Same as: K-Dur 20) "Do Not Crush" With food and full glass of water Inactive 06/23/2016 [facility] Metoprolol 5 mg, 5 mL, Route: IVP, Drug form: INJ, Q6H, Dosing Weight 49.5, kg, PRN Other -See Comment, Start date: 06/22/16 16:01:00 DOG BEHAVIORIST, Duration: 30 day, Stop date: 07/22/16 16:00:00 DOG BEHAVIORIST, Give only if unable to take poNotes: (Same as: Lopressor) Push over 2 minutes No Longer Active 06/22/2016 [facility] potassium chloride 40 mEq, Route: PO, TID, Dosing Weight 49.5, kg, Start date: 06/22/16 13:00:00 DOG BEHAVIORIST, Duration: 30 day, Stop date: 07/22/16 9:00:00 DOG BEHAVIORIST Inactive 06/22/2016 [facility] potassium chloride 10 mEq, 100 mL, Route: IVPB, Drug form: INJ, Q1H, Dosing Weight 49.5, kg, Total Dose=40 meq, Start date: 06/22/16 11:00:00 DOG BEHAVIORIST, Duration: 4 doses or times, Stop date: 06/22/16 14:00:00 DOG BEHAVIORIST, Peripheral LineNotes: Infuse at a rate of 10 mEq/hr. (Same as: KCL) Inactive 06/22/2016 [facility] Thiamine 100 mg, 1 mL, Route: IVPB, Drug form: INJ, Q24H, Dosing Weight 49.5, kg, Start date: 06/22/16 11:00:00 DOG BEHAVIORIST, Duration: 30 day, Stop date: 07/21/16 11:00:00 CSTNotes: (Same As: Vitamin B1) No Longer Active 06/22/2016 [facility] Calcium Gluconate 2,000 mg, 20 mL, Route: IVPB, ONCE, Dosing Weight 49.5, kg, Start date: 06/22/16 7:06:00 DOG BEHAVIORIST, Stop date: 06/22/16 7:06:00 CSTNotes: WASTE: F/P - Sink; E - Municipal Trash Bin Inactive 06/22/2016 [facility] potassium chloride 10 mEq, 100 mL, Route: IVPB, Drug form: INJ, Q1H, Dosing Weight 49.5, kg, Total Dose=40 meq, Start date: 06/22/16 6:00:00 DOG BEHAVIORIST, Duration: 4 doses or times, Stop date: 06/22/16 9:00:00 DOG BEHAVIORIST, Peripheral LineNotes: Infuse at a rate of 10 mEq/hr. (Same as: KCL) Inactive 06/22/2016 [facility] potassium chloride 40 mEq, 30 mL, Route: PO, Drug form: LIQ, ONCE, Start date: 06/21/16 12:00:00 DOG BEHAVIORIST, Stop date: 06/21/16 12:00:00 CSTNotes: (Same as: Potassium Chloride) Inactive 06/21/2016 [facility] Magnesium Sulfate 2 gm, 50 mL, Route: IVPB, Drug form: INJ, Q2H, Dosing Weight 49.5, kg, Total dose=4 gm, Start date: 06/21/16 10:00:00 DOG BEHAVIORIST, Duration: 2 doses or times, Stop date: 06/21/16 12:00:00 CSTNotes: WASTE: F/P - Sink; Qypesh Bin Inactive 06/21/2016 [facility] Protonix 40 mg, 1 tab, Route: PO, Drug form: ECTAB, Daily, Start date: 06/21/16 9:00:00 DOG BEHAVIORIST, Duration: 30 day, Stop date: 07/20/16 9:00:00 CSTNotes: Tablet should not be chewed or crushed. (Same as: Protonix) No Longer Active 06/21/2016 [facility] potassium chloride 40 mEq, Route: PO, ONCE, Dosing Weight 49.5, kg, Start date: 06/21/16 8:00:00 DOG BEHAVIORIST, Stop date: 06/21/16 8:00:00 DOG BEHAVIORIST Inactive 06/21/2016 [facility] potassium chloride 40 mEq, 30 mL, Route: PO, Drug form: LIQ, ONCE, Dosing Weight 49.5, kg, Start date: 06/21/16 7:59:00 DOG BEHAVIORIST, Stop date: 06/21/16 7:59:00 CSTNotes: (Same as: Potassium Chloride) Inactive 06/21/2016 [facility] Calcium Gluconate 2,000 mg, 20 mL, Route: IVPB, ONCE, Dosing Weight 49.5, kg, Start date: 06/21/16 7:59:00 DOG BEHAVIORIST, Stop date: 06/21/16 7:59:00 CSTNotes: WASTE: F/P - Sink; S5 Tech Opal Labssh Bin Inactive 06/21/2016 [facility] Atropine Sulfate 0.025 MG / Diphenoxylate Hydrochloride 2.5 MG Oral Tablet [Lomotil] 1 tab, Route: PO, Drug Form: TAB, Dosing Weight 49.5, kg, Q6H, PRN as needed for loose stool, Start date: 06/20/16 21:23:00 DOG BEHAVIORIST, Duration: 30 day, Stop date: 07/20/16 21:22:00 CSTNotes: (Same As: Lomotil) MAX Adult dose=8 tabs/day No Longer Active 06/21/2016 [facility] Magnesium Sulfate 2 gm, 50 mL, Route: IVPB, Drug form: INJ, Q2H, Dosing Weight 49.5, kg, Total dose=4 gm, Start date: 06/20/16 12:00:00 DOG BEHAVIORIST, Duration: 2 doses or times, Stop date: 06/20/16 14:00:00 CSTNotes: WASTE: F/P - Sink; E - Municipal Trash Bin Inactive 06/20/2016 [facility] K-Dur 20 60 mEq, 3 tab, Route: PO, Drug form: ERTAB, Q2H, Start date: 06/20/16 8:00:00 DOG BEHAVIORIST, Duration: 2 doses or times, Stop date: 06/20/16 10:00:00 CSTNotes: (Same as: K-Dur 20) "Do Not Crush" With food and full glass of water Inactive 06/20/2016 [facility] potassium chloride 30 mEq, Route: PO, ONCE, Dosing Weight 49.5, kg, Priority: NOW, Start date: 06/20/16 7:31:00 DOG BEHAVIORIST, Stop date: 06/20/16 7:31:00 DOG BEHAVIORIST Inactive 06/20/2016 [facility] Amylases 913367 UNT / Endopeptidases 68518 UNT / Lipase 08541 UNT Enteric Coated Capsule [Creon 24] 1 cap, Route: PO, Drug Form: DRC, Dosing Weight 49.5, kg, TID-Before Meals, Start date: 06/19/16 16:30:00 DOG BEHAVIORIST, Duration: 30 day, Stop date: 07/19/16 11:30:00 CSTNotes: Same as: Creon DRC 24 : lipase 24,000 units, protease 76,000 units, amylase 120,000 units No Longer Active 06/19/2016 [facility] Calcium Gluconate 1,000 mg, 10 mL, Route: IVPB, ONCE, Dosing Weight 49.5, kg, Start date: 06/19/16 12:23:00 DOG BEHAVIORIST, Stop date: 06/19/16 12:23:00 CSTNotes: WASTE: F/P - Sink; E - Municipal Trash Bin Inactive 06/19/2016 [facility] pneumococcal capsular polysaccharide type 1 vaccine / pneumococcal capsular polysaccharide type 10A vaccine / pneumococcal capsular polysaccharide type 11A vaccine / pneumococcal capsular polysaccharide type 12F vaccine / pneumococcal capsular polysacchar 0.5 mL, Route: IM, Drug Form: INJ, Daily, Start date: 06/19/16 9:00:00 DOG BEHAVIORIST, Duration: 1 doses or times, Stop date: 06/19/16 9:00:00 CSTNotes: (Same as: Pneumovax 23) Refrigerate Inactive 06/19/2016 [facility] Rocephin 1 gm, Route: IVPB, [id number], Dosing Weight 49.5, kg, Priority: NOW, Start date: 06/19/16 7:44:00 DOG BEHAVIORIST, Duration: 30 day, Stop date: 07/18/16 14:00:00 CSTNotes: (Same As: Rocephin). Use with 100 mL NS and infuse over 30 min MEDICATION WASTE Product Size: 1000 mg Product Wasted: ___ mg No Longer Active 06/19/2016 [facility] Magnesium Sulfate 1 gm, 100 mL, Route: IVPB, Drug form: INJ, ONCE, Dosing Weight 49.5, kg, Start date: 06/18/16 16:20:00 DOG BEHAVIORIST, Stop date: 06/18/16 16:20:00 CSTNotes: WASTE: F/P - Sink; E - Municipal Trash Bin Inactive 06/18/2016 [facility] ondansetron (ANES) Route: IV, Drug form: INJ, ONCE, Stop date: 06/18/16 14:21:00 DOG BEHAVIORIST Inactive 06/18/2016 [facility] fentaNYL (ANES) Route: IV, Drug form: INJ, ONCE, Stop date: 06/18/16 14:21:00 DOG BEHAVIORIST Inactive 06/18/2016 [facility] lidocaine (ANES) Route: IV, Drug form: INJ, ONCE, Stop date: 06/18/16 14:21:00 DOG BEHAVIORIST Inactive 06/18/2016 [facility] propofol (ANES) Route: IV, Drug form: INJ, ONCE, Stop date: 06/18/16 14:21:00 DOG BEHAVIORIST Inactive 06/18/2016 [facility] metoclopramide (ANES) Route: IV, Drug form: INJ, ONCE, Stop date: 06/18/16 14:21:00 DOG BEHAVIORIST Inactive 06/18/2016 [facility] phenylephrine (ANES) Route: IV, Drug form: INJ, ONCE, Stop date: 06/18/16 14:21:00 DOG BEHAVIORIST Inactive 06/18/2016 [facility] Levsin SL 0.125 mg, 1 tab, Route: SL, Drug form: TAB, Q4H, Dosing Weight 49.5, kg, PRN Bladder Spasm, Start date: 06/18/16 14:17:00 DOG BEHAVIORIST, Duration: 30 day, Stop date: 07/18/16 14:16:00 CSTNotes: (Same as: Levsin) Take 30 min before meal No Longer Active 06/18/2016 [facility] LR 1000 mL INJ (ANES) Route: IV, Total Volume: 1,000, Start date: 06/18/16 13:30:00 DOG BEHAVIORIST, Stop date: 06/18/16 14:30:00 DOG BEHAVIORIST Inactive 06/18/2016 [facility] Calcium Chloride 0.0014 MEQ/ML / Potassium Chloride 0.004 MEQ/ML / Sodium Chloride 0.103 MEQ/ML / Sodium Lactate 0.028 MEQ/ML Injectable Solution 1,000 mL, Rate: 25 ml/hr, Infuse over: 40 hr, Route: IV, Dosing Weight 49.5 kg, Total Volume: 1,000, Start date: 06/18/16 12:36:00 DOG BEHAVIORIST, Duration: 30 day, Stop date: 07/18/16 12:35:00 DOG BEHAVIORIST Inactive 06/18/2016 [facility] potassium chloride 10 mEq, 100 mL, Route: IVPB, Drug form: INJ, Q1H, Dosing Weight 49.5, kg, Total Dose=40 meq, Start date: 06/18/16 7:00:00 DOG BEHAVIORIST, Duration: 4 doses or times, Stop date: 06/18/16 10:00:00 DOG BEHAVIORIST, Peripheral LineNotes: Infuse at a rate of 10 mEq/hr. (Same as: KCL) Inactive 06/18/2016 [facility] Magnesium Sulfate 1 gm, 100 mL, Route: IVPB, Drug form: INJ, ONCE, Dosing Weight 49.5, kg, Start date: 06/18/16 6:12:00 DOG BEHAVIORIST, Stop date: 06/18/16 6:12:00 CSTNotes: WASTE: F/P - Sink; E - Municipal Trash Bin Inactive 06/18/2016 [facility] potassium chloride 40 mEq, 30 mL, Route: PO, Drug form: LIQ, Q2H, Dosing Weight 49.5, kg, Start date: 06/17/16 16:00:00 DOG BEHAVIORIST, Duration: 2 doses or times, Stop date: 06/17/16 18:00:00 CSTNotes: (Same as: Potassium Chloride) Inactive 06/17/2016 [facility] hydrocortisone 100 mg injection 50 mg, 1 mL, Route: IV, Drug form: PDR/INJ, Q8H, Dosing Weight 51.364, kg, Start date: 06/17/16 16:00:00 DOG BEHAVIORIST, Duration: 30 day, Stop date: 07/17/16 8:00:00 CSTNotes: (Same as: Solu-CORTEF) No Longer Active 06/17/2016 [facility] Insulin, Aspart, Human 8 unit, 0.08 mL, Route: SUB-Q, Drug form: SOLN, Sliding Scale, Dosing Weight 49.5, kg, PRN Blood Glucose Results, Start date: 06/17/16 14:24:00 DOG BEHAVIORIST, Duration: 30 day, Stop date: 07/17/16 14:23:00 CSTNotes: Roll in palms of hands gently; Do not shake vigorously. (Same as: NovoLOG) "single patient use only" WASTE: F/P - Black; E - [place] Trash Bin Stable for 28 days at room temperature. Expires in days from Date No Longer Active 06/17/2016 [facility] Glucagon 1 mg, Route: IM, Drug form: PDR/INJ, PRN, Dosing Weight 49.5, kg, PRN Blood Glucose Results, Start date: 06/17/16 14:24:00 DOG BEHAVIORIST, Duration: 30 day, Stop date: 07/17/16 14:23:00 DOG BEHAVIORIST No Longer Active 06/17/2016 [facility] Dextrose 50% Syringe 25 gm, 50 mL, Route: IVP, Drug Form: INJ, Dosing Weight 49.5, kg, PRN, PRN Blood Glucose Results, Start date: 06/17/16 14:24:00 DOG BEHAVIORIST, Duration: 30 day, Stop date: 07/17/16 14:23:00 DOG BEHAVIORIST No Longer Active 06/17/2016 [facility] NS + KCL 20mEq/L 1000ml (Premix) 1,000 mL 1,000 mL, Rate: 125 ml/hr, Infuse over: 8 hr, Route: IV, Dosing Weight 49.5 kg, Total Volume: 1,000, Start date: 06/17/16 14:24:00 DOG BEHAVIORIST, Duration: 30 day, Stop date: 07/17/16 14:23:00 CSTNotes: PREMIX IV - Do Not Alter WASTE: F/P - Sink; E - Municipal Trash Bin No Longer Active 06/17/2016 [facility] potassium chloride 20 mEq, 100 mL, Route: IVPB, Drug form: INJ, ONCE, Dosing Weight 49.5, kg, Start date: 06/17/16 14:23:00 DOG BEHAVIORIST, Stop date: 06/17/16 14:23:00 CSTNotes: (Same as: KCL) Infuse no faster than 10 mEq/hr if given peripherally. Inactive 06/17/2016 [facility] Acetaminophen 325 MG / Hydrocodone Bitartrate 5 MG Oral Tablet [Oxnard 5/325] 1 tab, Route: PO, Drug Form: TAB, Dosing Weight 49.5, kg, Q4H, PRN Pain Score 4-6, Start date: 06/17/16 12:44:00 DOG BEHAVIORIST, Duration: 30 day, Stop date: 07/17/16 12:43:00 CSTNotes: (Same as: [place]nard 325/5) Do not exceed 4gm/day of acetaminophen. No Longer Active 06/17/2016 [facility] Dilaudid 0.2 mg, 0.2 mL, Route: IV, Drug form: INJ, Q3H, Dosing Weight 49.5, kg, PRN Pain Score 4-6, Start date: 06/17/16 12:27:00 DOG BEHAVIORIST, Duration: 30 day, Stop date: 07/17/16 12:26:00 DOG BEHAVIORIST No Longer Active 06/17/2016 [facility] Magnesium Sulfate 2 gm, 50 mL, Route: IVPB, Drug form: INJ, Q2H, Dosing Weight 49.5, kg, Total dose=4 gm, Start date: 06/17/16 5:00:00 DOG BEHAVIORIST, Duration: 2 doses or times, Stop date: 06/17/16 7:00:00 CSTNotes: WASTE: F/P - Sink; E - Municipal Trash Bin Inactive 06/17/2016 [facility] Calcium Carbonate 500 MG Chewable Tablet 1,000 mg, 2 tab, Route: PO, Drug form: CHEWTAB, PRN, Dosing Weight 49.5, kg, PRN Abnormal Lab Result, FOR ICU USE ONLY, Start date: 06/17/16 4:16:00 DOG BEHAVIORIST, Duration: 30 day, Stop date: 07/17/16 4:15:00 CSTNotes: (Same As: Tums) Calcium Carbonate 500 rc=128 mg elemental calcium Dose= mg calcium carbonate ( mg elemental calcium) Inactive 06/17/2016 [facility] potassium phosphate + sodium chloride 0.9% INJ 250 mL 15 mmol, 5 mL, Route: IVPB, PRN, Dosing Weight 49.5, kg, PRN Abnormal Lab Result, Start date: 06/17/16 4:16:00 DOG BEHAVIORIST, Duration: 30 day, Stop date: 07/17/16 4:15:00 DOG BEHAVIORIST, FOR ICU USE ONLYNotes: (Same as: K Phosphate.) 1 mMol phoshate has 1.47 mEq potassium Infuse over 4 hours Inactive 06/17/2016 [facility] potassium phosphate-sodium phosphate 250 mg-280 mg-160 mg oral powder for reconstitution 2 pkt, Route: PO, Drug Form: PDR/REC, Dosing Weight 49.5, kg, PRN, PRN Abnormal Lab Result, FOR ICU USE ONLY, Start date: 06/17/16 4:16:00 DOG BEHAVIORIST, Duration: 30 day, Stop date: 07/17/16 4:15:00 CSTNotes: (Same as: Phos-NaK) Each 1.5 gm pkt has 250mg phosphorous. Mix w/2.5oz water and stir. Inactive 06/17/2016 [facility] Magnesium Sulfate 2 gm, 50 mL, Route: IVPB, Drug form: INJ, PRN, Dosing Weight 49.5, kg, PRN Abnormal Lab Result, Start date: 06/17/16 4:16:00 DOG BEHAVIORIST, Duration: 30 day, Stop date: 07/17/16 4:15:00 DOG BEHAVIORIST, FOR ICU USE ONLYNotes: WASTE: F/P - Sink; E - Municipal Trash Bin Inactive 06/17/2016 [facility] sodium phosphate + D5W 250 mL 15 mmol, 5 mL, Route: IVPB, PRN, Dosing Weight 49.5, kg, PRN Abnormal Lab Result, Start date: 06/17/16 4:16:00 DOG BEHAVIORIST, Duration: 30 day, Stop date: 07/17/16 4:15:00 DOG BEHAVIORIST, FOR ICU USE ONLY Inactive 06/17/2016 [facility] potassium chloride 20 mEq, 100 mL, Route: IVPB, Drug form: INJ, PRN, Dosing Weight 49.5, kg, PRN Abnormal Lab Result, Via central line, Start date: 06/17/16 4:16:00 DOG BEHAVIORIST, Duration: 30 day, Stop date: 07/17/16 4:15:00 DOG BEHAVIORIST, FOR ICU USE ONLYNotes: (Same as: KCL) Infuse no faster than 10 mEq/hr if given peripherally. Inactive 06/17/2016 [facility] Magnesium Oxide 800 mg, 2 tab, Route: PO, Drug form: TAB, PRN, Dosing Weight 49.5, kg, PRN Abnormal Lab Result, FOR ICU USE ONLY, Start date: 06/17/16 4:16:00 DOG BEHAVIORIST, Duration: 30 day, Stop date: 07/17/16 4:15:00 CSTNo renee: (Same as: Mag-Ox 400) Magnesium oxide [id number] elemental magnesium Dose=____mg magnesium oxide (___mg elemental magnesium) Inactive 06/17/2016 [facility] Calcium Gluconate 1 gm, 10 mL, Route: IVPB, PRN, Dosing Weight 49.5, kg, PRN Abnormal Lab Result, Start date: 06/17/16 4:16:00 DOG BEHAVIORIST, Duration: 30 day, Stop date: 07/17/16 4:15:00 DOG BEHAVIORIST, FOR ICU USE ONLYNotes: WASTE: F/P - Sink; E - Municipal Trash Bin Inactive 06/17/2016 [facility] Saline Flush 0.9% 10 ml, Route: IVP, Drug Form: INJ, Dosing Weight 51.364, kg, Q12H, Start date: 06/16/16 9:00:00 DOG BEHAVIORIST, Duration: 30 day, Stop date: 07/15/16 21:00:00 CSTNotes: (Same as: BD Posiflush) No Longer Active 06/16/2016 [facility] pantoprazole 40 mg, Route: IVP, Drug form: INJ, Daily, Dosing Weight 51.364, kg, Start date: 06/16/16 9:00:00 DOG BEHAVIORIST, Duration: 30 day, Stop date: 07/15/16 9:00:00 CSTNotes: For IV push reconstitute with 10 ml 0.9% sodium chloride and push over 2 minutes. (Same as: Protonix) No Longer Active 06/16/2016 [facility] Methimazole 20 mg, 4 tab, Route: PO, Drug form: TAB, Q8H, Dosing Weight 51.364, kg, Start date: 06/16/16 8:00:00 DOG BEHAVIORIST, Stop date: 07/16/16 0:00:00 DOG BEHAVIORIST No Longer Active 06/16/2016 [facility] hydrocortisone 100 mg injection 100 mg, 2 mL, Route: IV, Drug form: PDR/INJ, Q6H, Dosing Weight 51.364, kg, Start date: 06/16/16 6:00:00 DOG BEHAVIORIST, Duration: 30 day, Stop date: 07/16/16 0:00:00 CSTNotes: (Same as: Solu- CORTEF) No Longer Active 06/16/2016 [facility] Propranolol 40 mg, 1 tab, Route: PO, Drug form: TAB, QID, Dosing Weight 51.364, kg, Start date: 06/16/16 6:00:00 DOG BEHAVIORIST, Stop date: 07/16/16 0:00:00 CSTNotes: Give with food. (Same as: Inderal) No Longer Active 06/16/2016 [facility] potassium chloride 10 mEq, 100 mL, Route: IVPB, Drug form: INJ, Q1H, Dosing Weight 51.364, kg, Total dose=40 mEq, Start date: 06/16/16 4:00:00 DOG BEHAVIORIST, Duration: 4 doses or times, Stop date: 06/16/16 7:00:00 DOG BEHAVIORIST, Central LineNotes: Infuse at a rate of 10 mEq/hr. (Same as: KCL) Inactive 06/16/2016 [facility] Tramadol 50 mg, PO, Q12H, PRN Pain, # 20 tab, 0 Refill(s) No Longer Active 06/16/2016 [facility] Methimazole 10 mg, PO, Q8H, 0 Refill(s) On Hold 06/16/2016 [facility] metoprolol tartrate 25 mg, PO, BID, 0 Refill(s) No Longer Active 06/16/2016 [facility] Promethazine 25 mg, PO, TID, PRN as needed for nausea/vomiting, 0 Refill(s) No Longer Active 06/16/2016 [facility] Zosyn 3.375 gm, Route: IVPB, [id number], Dosing Weight 51.364, kg, CrCl >=20 ml/min infuse over 4 hours, Start date: 06/16/16 2:00:00 DOG BEHAVIORIST, Duration: 30 day, Stop date: 07/15/16 18:00:00 CSTNotes: (Same as: Zosyn) Dosing based on Piperacillin component No Longer Active 06/16/2016 [facility] potassium chloride 20 mEq, 100 mL, Route: IVPB, Drug form: INJ, Q2H, Dosing Weight 51.364, kg, Total dose=40 mEq, Start date: 06/16/16 2:00:00 DOG BEHAVIORIST, Duration: 2 doses or times, Stop date: 06/16/16 4:00:00 DOG BEHAVIORIST, Central LineNotes: (Same as: KCL) Infuse no faster than 10 mEq/hr if given peripherally. Inactive 06/16/2016 [facility] Enoxaparin 40 mg, 0.4 mL, Route: SUB-Q, Drug form: INJ, [id number], Dosing Weight 51.364, kg, Start date: 06/16/16 2:00:00 DOG BEHAVIORIST, Duration: 30 day, Stop date: 07/15/16 2:00:00 CSTNotes: (Same as: Lovenox) No Longer Active 06/16/2016 [facility] Metoprolol 5 mg, 5 mL, Route: IV, Drug form: INJ, ONCE, Dosing Weight 51.364, kg, Start date: 06/16/16 1:33:00 DOG BEHAVIORIST, Stop date: 06/16/16 1:33:00 CSTNotes: (Same as: Lopressor) Push over 2 minutes Inactive 06/16/2016 [facility] Tylenol 650 mg, 2 tab, Route: PO, Drug form: TAB, Q6H, Dosing Weight 51.364, kg, PRN Pain Score 1-3, Start date: 06/16/16 1:23:00 DOG BEHAVIORIST, Duration: 30 day, Stop date: 07/16/16 1:22:00 CSTNotes: Do not exceed 4 gm/day. (Same as: Tylenol) No Longer Active 06/16/2016 [facility] Dilaudid 0.5 mg, Route: IVP, ONCE, Dosing Weight 51.364, kg, Priority: STAT, Start date: 06/16/16 1:04:00 DOG BEHAVIORIST, Stop date: 06/16/16 1:04:00 DOG BEHAVIORIST Inactive 06/16/2016 [facility] Propranolol 1 mg, 1 mL, Route: IVP, Drug form: INJ, ONCE, Dosing Weight 51.364, kg, Start date: 06/16/16 0:36:00 DOG BEHAVIORIST, Stop date: 06/16/16 0:36:00 CSTNotes: (Same as: Inderal) Inactive 06/16/2016 [facility] Morphine 4 mg, 2 mL, Route: IVP, Drug form: INJ, Q4H, Dosing Weight 51.364, kg, PRN Pain Score 7-10, Start date: 06/16/16 0:32:00 DOG BEHAVIORIST, Duration: 30 day, Stop date: 07/16/16 0:31:00 CSTNotes: (Same as:MORPhine Sulfate) No Longer Active 06/16/2016 [facility] Sodium Chloride 0.154 MEQ/ML Injectable Solution 1,000 mL, Rate: 125 ml/hr, Infuse over: 8 hr, Route: IV, Dosing Weight 51.364 kg, Total Volume: 1,000, Start date: 06/16/16 0:32:00 DOG BEHAVIORIST, Duration: 30 day, Stop date: 07/16/16 0:31:00 DOG BEHAVIORIST No Longer Active 06/16/2016 [facility] Saline Flush 0.9% 10 ml, Route: IVP, Drug Form: INJ, Dosing Weight 51.364, kg, PRN, PRN Line Flush, Start date: 06/16/16 0:32:00 DOG BEHAVIORIST, Duration: 30 day, Stop date: 07/16/16 0:31:00 CSTNotes: (Same as: BD Posiflush) No Longer Active 06/16/2016 [facility] Ondansetron 4 mg, 2 mL, Route: IVP, Drug form: INJ, Q8H, Dosing Weight 51.364, kg, PRN Nausea & Vomiting, Start date: 06/16/16 0:32:00 DOG BEHAVIORIST, Duration: 30 day, Stop date: 07/16/16 0:31:00 CSTNotes: (Same as: Zofran) MEDICATION WASTE Product Size: 4 mg Product Wasted: ___ mg No Longer Active 06/16/2016 [facility] Nystatin 100 UNT/MG Topical Powder 1 appl, Route: TOP, PRN, Drug form: PWDR, PRN For Fungal Prophylaxis, Start date: 06/16/16 0:32:00 DOG BEHAVIORIST, Duration: 30 day, Stop date: 07/16/16 0:31:00 CSTNotes: (Same as:Mycostatin, Nilstat) For external use only. No Longer Active 06/16/2016 [facility] Acetaminophen 650 mg, 2 tab, Route: PO, Drug form: TAB, Q4H, Dosing Weight 51.364, kg, PRN For Temp > 100.4 F, Start date: 06/16/16 0:32:00 DOG BEHAVIORIST, Duration: 30 day, Stop date: 07/16/16 0:31:00 CSTNotes: Do not exceed 4 gm/day. (Same as: Tylenol) No Longer Active 06/16/2016 [facility] potassium iodide 130 mg, Route: PO, Drug form: SOLN, ONCE, Dosing Weight 51.364, kg, Priority: STAT, Start date: 06/16/16 0:23:00 DOG BEHAVIORIST, Stop date: 06/16/16 0:23:00 CSTNotes: (Same as: Strong Iodine soln 5%) Inactive 06/16/2016 [facility] Potassium Iodide 130 mg, Route: PO, Drug form: SOLN, ONCE, Dosing Weight 51.364, kg, Priority: STAT, Start date: 06/16/16 0:03:00 DOG BEHAVIORIST, Stop date: 06/16/16 0:03:00 CSTNotes: (Same as: Strong Iodine soln 5%) Inactive 06/16/2016 [facility] NS + KCL 40mEq/L 1000ml (Premix) 1,000 mL 1,000 mL, Rate: 125 ml/hr, Infuse over: 8 hr, Route: IV, Dosing Weight 51.364 kg, Total Volume: 1,000, Priority: STAT, Start date: 06/15/16 23:03:00 DOG BEHAVIORIST, Duration: 30 day, Stop date: 07/15/16 23:02:00 CSTNotes: PREMIX IV - Do Not Alter WASTE: F/P - Sink; E - Municipal Trash Bin No Longer Active 06/16/2016 [facility] Dilaudid 0.5 mg, 0.5 mL, Route: IVP, Drug form: INJ, ONCE, Dosing Weight 51.364, kg, Priority: STAT, Start date: 06/15/16 23:03:00 DOG BEHAVIORIST, Stop date: 06/15/16 23:03:00 DOG BEHAVIORIST Inactive 06/16/2016 [facility] Methimazole 40 mg, 4 tab, Route: PO, Drug form: TAB, ONCE, Dosing Weight 51.364, kg, Priority: STAT, Start date: 06/15/16 21:43:00 DOG BEHAVIORIST, Stop date: 06/15/16 21:43:00 DOG BEHAVIORIST Inactive 06/16/2016 [facility] Hydrocortisone 100 mg, 2 mL, Route: IV, Drug form: PDR/INJ, ONCE, Dosing Weight 51.364, kg, Priority: STAT, Start date: 06/15/16 21:43:00 DOG BEHAVIORIST, Stop date: 06/15/16 21:43:00 CSTNotes: (Same as: Solu-CORTEF) Inactive 06/16/2016 [facility] Propranolol 2 mg, 2 mL, Route: IV, Drug form: INJ, ONCE, Dosing Weight 51.364, kg, Priority: STAT, Start date: 06/15/16 21:42:00 DOG BEHAVIORIST, Stop date: 06/15/16 21:42:00 CSTNotes: (Same as: Inderal) Inactive 06/16/2016 [facility] Sodium Chloride 0.154 MEQ/ML Injectable Solution 1,000 mL, Rate: 250 ml/hr, Infuse over: 4 hr, Route: IV, Dosing Weight 51.364 kg, Total Volume: 1,000, Start date: 06/15/16 21:40:00 DOG BEHAVIORIST, Duration: 30 day, Stop date: 07/15/16 21:39:00 DOG BEHAVIORIST No Longer Active 06/16/2016 [facility] Dilaudid 0.5 mg, Route: IVP, ONCE, Dosing Weight 51.364, kg, Priority: STAT, Start date: 06/15/16 21:39:00 DOG BEHAVIORIST, Stop date: 06/15/16 21:39:00 DOG BEHAVIORIST Inactive 06/16/2016 [facility] Sodium Chloride 0.154 MEQ/ML Injectable Solution 1,000 mL, 1,000 ml/hr, Infuse Over: 1 hr, Route: IV, 1,000, Drug form: INJ, ONCE, Priority: STAT, Dosing Weight 69.318 kg, Start date: 06/15/16 21:16:00 DOG BEHAVIORIST, Duration: 1 doses or times, Stop date: 06/15/16 21:16:00 DOG BEHAVIORIST Inactive 06/16/2016 [facility] Zofran 4 mg, 2 mL, Route: IVP, Drug form: INJ, ONCE, Dosing Weight 69.318, kg, Priority: STAT, Start date: 06/15/16 21:16:00 DOG BEHAVIORIST, Stop date: 06/15/16 21:16:00 CSTNotes: (Same as: Zofran) MEDICATION WASTE Product Size: 4 mg Product Wasted: ___ mg Inactive 06/16/2016 [facility] Acetaminophen With Codeine (Tylenol With Codeine #3 Tablet) 1 Each Tablet, 300 Mg Oral Every 6 Hours as needed for Pain Active [facility] 06/04/2016 [facility] Ferrous Sulfate (Feosol) 325 Mg Tablet, 325 Mg Oral Twice Daily With Meals Active [facility] 06/04/2016 [facility] Insulin Detemir 100 Unit/Ml Pen, 10 Unit Sub-Q Bedtime Active [facility] 06/04/2016 [facility] Methimazole 5 Mg Tablet, 10 Mg Oral Every 8 Hours Active [facility] 06/04/2016 [facility] Methimazole 10 Mg Tablet, 10 Mg Oral Daily Active 06/04/2016 [facility] Metoprolol Succinate (Toprol Xl) 50 Mg Tab.er.24h, 50 Mg Oral Twice A Day Active [facility] 06/04/2016 [facility] Potassium Chloride (K Dur*) 10 Meq Tabcr, 10 Meq Oral Daily Active [facility] 06/04/2016 [facility] insulin detemir U-100 (LEVEMIR) 100 unit/mL injection Inject 30 Units under the skin every evening . Subcutaneous Active [facility] insulin aspart U-100 (NOVOLOG U-100 INSULIN ASPART) 100 unit/mL injection Inject 12 Units under the skin 3 times daily. Subcutaneous Active [facility] Insulin Aspart (Novolog) 100 Unit/1 Ml Cartridge Three Times Daily With Meals Active [facility] Allergies, Adverse Reactions, Alerts Substance Category Reaction Severity Reaction type Status Date Reported Comments Source NSAIDS (Non-Steroidal Anti-Inflamma Hives Unknown Allergy to Substance Active 08/31/2017 [facility] Cefazolin Propensity to adverse reactions to drug Active 09/23/2017 [facility] Ciprofloxacin Hives Propensity to adverse reactions to drug Active 09/23/2017 [facility] Cephalexin Hives Propensity to adverse reactions to drug Active 09/23/2017 [facility] ciprofloxacin Assertion Drug allergy Active [facility] Ancef Assertion Severe Drug allergy Active [facility] Keflex<sup>1</sup> Assertion Rash, NOS Drug allergy Active tolerated Cefepime during 08/23/16 admission at [facility] for several doses as per MD and as documented in e-MAR [facility] Keflex Assertion Drug allergy Active [facility] Immunizations Immunization Date Given Site Status Last Updated Comments Source pneumococcal 23-valent vaccine 07/30/2016 Not Given [facility], AAKASH [place],[facility] influenza virus vaccine, inactivated 07/30/2016 Not Given [facility], AAKASH [place],[facility] pneumococcal 23-valent vaccine 06/20/2016 Not Given [facility], [facility] Results Order Name Results Value Reference Range Date Interpretation Comments Source BLOOD BANK RESULTS RBC product Product available (09/03/18 8:07 AM) 09/03/2018 [facility] BLOOD BANK RESULTS Antibody Scrn Negative (09/01/18 10:49 AM) 09/01/2018 [facility] BLOOD BANK RESULTS ABO/Rh O POS 09/01/2018 [facility] BLOOD BANK RESULTS RBC product Product available (09/01/18 7:00 AM) 09/01/2018 [facility] Automated urine sediment leukocyte count by microscopy [...] URINE AND STOOL UA Color Ltyellow 10/30/2017 [facility] URINE AND STOOL UA Hyph Yeast Occasional *ABN* (10/29/17 11:06 PM) None Seen 10/30/2017 [facility] URINE AND STOOL UA RBC 11 0 - 2 10/30/2017 [facility] URINE AND STOOL UA WBC >182 0 - 5 10/30/2017 [facility] URINE AND STOOL UA Urobilinogen <=1.0 mg/dL 0.1 - 1.0 10/30/2017 [facility] URINE AND STOOL UA [place] Yeast Few /HPF None Seen /HPF 10/30/2017 [facility] URINE AND STOOL UA Mucus Few /LPF None Seen /LPF 10/30/2017 [facility] URINE AND STOOL UA Bacteria Occasional /HPF None Seen /HPF 10/30/2017 [facility] URINE AND STOOL UA Sq Epi Occasional /LPF Few /LPF 10/30/2017 [facility] URINE AND STOOL UA Leuk Est Large *ABN* (10/29/17 11:06 PM) Negative 10/30/2017 [facility] URINE AND STOOL UA Nitrite Negative (10/29/17 11:06 PM) Negative 10/30/2017 [facility] URINE AND STOOL UA Blood Large *ABN* (10/29/17 11:06 PM) Negative 10/30/2017 [facility] URINE AND STOOL UA Ketones Trace mg/dL Negative mg/dL 10/30/2017 [facility] URINE AND STOOL UA Glucose 500 mg/dL Negative mg/dL 10/30/2017 [facility] URINE AND STOOL UA Bili Negative *NA* (10/29/17 11:06 PM) Negative 10/30/2017 [facility] URINE AND STOOL UA Protein Negative mg/dL Negative mg/dL 10/30/2017 [facility] URINE AND STOOL UA pH 6.0 5.0 - 8.0 10/30/2017 [facility] URINE AND STOOL UA Spec Grav 1.005 <=1.030 10/30/2017 [facility] URINE AND STOOL UA Turbidity Marked *ABN* (10/29/17 11:06 PM) Clear 10/30/2017 [facility] Culture: Urine 10,000 - 50,000 CFU/mL Enterococcus Species 50,000 - 100,000 CFU/mL Gram Negative Rods, Lactose Fermenters <10,000 CFU/mL Gram Negative Rods, Non-Lactose Fermenters Specimen contains 3 or more potential pathogens; recommend correlation with urinalysis; if catheterized specimen recommend removal and recollection. If clinical situation warrants please call the laboratory for further testing. [place] [facility] [phone]. 10/30/2017 [facility] BLOOD BANK RESULTS ABO/Rh O POS 10/30/2017 [facility] BLOOD BANK RESULTS Antibody Scrn Negative (10/29/17 8:49 PM) 10/30/2017 [facility] CARDIAC ENZYMES CK MB Index 2.5 0.0 - 2.5 10/30/2017 [facility] CARDIAC ENZYMES Total CK 57 12 - 191 10/30/2017 [facility] CARDIAC ENZYMES CK MB 1.4 0.5 - 3.6 10/30/2017 [facility] CARDIAC ENZYMES Troponin-I <0.02 0.00 - 0.40 10/30/2017 [facility] CHEM PANEL eGFR 91 10/30/2017 Result [...] should be multiplied by the estimated BMI. [facility] CHEM PANEL Bili Total 0.9 0.2 - 1.3 10/30/2017 [facility] CHEM PANEL ALT 34 0 - 65 10/30/2017 [facility] CHEM PANEL Alk Phos 199 39 - 136 10/30/2017 [facility] CHEM PANEL AST 65 0 - 37 10/30/2017 [facility] CHEM PANEL AGAP 21.2 10.0 - 20.0 10/30/2017 [facility] CHEM PANEL Calcium Lvl 8.3 8.5 - 10.5 10/30/2017 [facility] CHEM PANEL CO2 17 24 - 32 10/30/2017 [facility] CHEM PANEL Globulin 6.8 2.7 - 4.2 10/30/2017 [facility] CHEM PANEL A/G Ratio 0.4 0.7 - 1.6 10/30/2017 [facility] CHEM PANEL B/C Ratio 39 6 - 25 10/30/2017 [facility] CHEM PANEL Albumin Lvl 2.8 3.5 - 5.0 10/30/2017 [facility] CHEM PANEL Total Protein 9.6 6.4 - 8.4 10/30/2017 [facility] CHEM PANEL Sodium Lvl 118 135 - 145 10/30/2017 [facility] CHEM PANEL Potassium Lvl 5.2 3.5 - 5.1 10/30/2017 [facility] CHEM PANEL Chloride Lvl 85 95 - 109 10/30/2017 [facility] CHEM PANEL Creatinine Lvl 0.80 0.50 - 1.40 10/30/2017 [facility] CHEM PANEL Glucose Lvl 470 70 - 99 10/30/2017 Result Comment: Critical Result(s) called Jossy Matamoros at 10/29/2017 21:26 by evelyn. Read back OK. [facility] CHEM PANEL BUN 31 7 - 22 10/30/2017 [facility] CHEM PANEL Lipase Lvl 294 73 - 393 10/30/2017 [facility] CHEM PANEL Ketone Quantitative 4.92 <=0.27 mmol/L 10/30/2017 [facility] CHEM PANEL Lactic Acid Lvl 3.8 0.5 - 2.2 10/30/2017 [facility] ENDOCRINOLOGY S Preg Negative *NA* (10/29/17 8:49 PM) Negative 10/30/2017 [facility] PTT 28.6 22.9 - 35.8 10/30/2017 [facility] HEMATOLOGY PT 15.8 12.0 - 14.7 10/30/2017 [facility] INR 1.25 0.85 - 1.17 10/30/2017 [facility] Hct 43.6 36.0 - 48.0 10/30/2017 [facility] MCV 75.8 80.0 - 98.0 10/30/2017 [facility] MPV 11.7 7.4 - 10.4 10/30/2017 [facility] Platelet 251 133 - 450 10/30/2017 [facility] MCHC 32.7 32.0 - 36.0 10/30/2017 [facility] RDW 23.5 11.5 - 14.5 10/30/2017 [facility] MCH 24.8 27.0 - 31.0 10/30/2017 [facility] WBC 7.6 3.7 - 10.4 10/30/2017 [facility] RBC 5.75 4.20 - 5.40 10/30/2017 [facility] Hgb 14.3 12.0 - 16.0 10/30/2017 [facility] Microcyte 1+ *ABN* (10/29/17 8:49 PM) None Seen 10/30/2017 [facility] Monocytes # 1.0 0.0 - 0.8 10/30/2017 [facility] Lymphocytes # 1.7 1.0 - 5.5 10/30/2017 [facility] Segs-Bands # 4.9 1.5 - 8.1 10/30/2017 [facility] Basophils 0.1 0.0 - 1.0 10/30/2017 [facility] Eosinophils 0.1 0.0 - 4.0 10/30/2017 [facility] Monocytes 13.2 2.0 - 12.0 10/30/2017 [facility] Lymphocytes 22.8 20.0 - 40.0 10/30/2017 [facility] Segs 63.8 45.0 - 75.0 10/30/2017 [facility] Anisocyte 1+ *ABN* (10/29/17 8:49 PM) None Seen 10/30/2017 [facility] Plt Morph Normal (10/29/17 8:49 PM) 10/30/2017 [facility] Estimated glomerular filtration rate (GFR) determination [...] High UNIT: IU/L REFERENCE INTERVAL: 0.00-0.55 10/18/2017 [facility] THYROID PEROXIDASE (TPO) AB Thy Perox (TPO) Ab 120 Reference range: 0 to 34 Unit: IU/mL 10/07/2017 [facility] THYROID PEROXIDASE (TPO) AB Lab Interpretation Abnormal 10/07/2017 [facility] PATHOLOGIST REVIEW Pathologist Review Gama Hernandez M.D./[id number] (note) Pt name: Chika Bojorquez PB smear bar code# [id number] CBC and peripheral blood smear review: Microcytic, hypochromatic anemia CBC and differential confirmed Morphology: RBCs: Decreased in number; microocytic, hypochromic; mild anisopoikilocytosis; polychromasia not adequate; schistocytes absent; nucleated RBCs absent; intracellular organisms absent. WBCs: normal in number; normal morphology; dysplasia absent; rare plasma cells present Platelets: normal in number; normal morphology many large forms. platelet clumps present CPT 20774 Gama Hernandez MD #[id number] 09/30/2017 [facility] GLUCOSE POC Glucose POC 205 74 - 106 09/30/2017 [facility] GLUCOSE POC Lab Interpretation Abnormal 09/30/2017 [facility] BASIC METABOLIC PANEL CO2 25 21 - 32 09/30/2017 [facility] BASIC METABOLIC PANEL Chloride 105 98 - 107 09/30/2017 [facility] BASIC METABOLIC PANEL Potassium 3.6 3.5 - 5.1 09/30/2017 [facility] BASIC METABOLIC PANEL Sodium 138 136 - 145 09/30/2017 [facility] BASIC METABOLIC PANEL Glucose 193 70 - 99 09/30/2017 [facility] BASIC METABOLIC PANEL Urea Nitrogen 10 7 - 18 09/30/2017 [facility] BASIC METABOLIC PANEL Creatinine 0.30 0.6 - 1.3 09/30/2017 [facility] BASIC METABOLIC PANEL Anion Gap 8 09/30/2017 [facility] BASIC METABOLIC PANEL Calcium 8.3 8.5 - 10.2 09/30/2017 [facility] BASIC METABOLIC PANEL GFR, Estimated >60 mL/min/1.73 m2 09/30/2017 [facility] BASIC METABOLIC PANEL GFR, Estim, Afr-Am >60 mL/min/1.73 m2 09/30/2017 [facility] BASIC METABOLIC PANEL Lab Interpretation Abnormal 09/30/2017 [facility] CBC/DIFF WBC 3.7 4.5 - 11 09/30/2017 [facility] CBC/DIFF RBC 3.62 4.20 - 5.40 09/30/2017 [facility] CBC/DIFF Hemoglobin 7.8 12 - 16 09/30/2017 [facility] CBC/DIFF Hematocrit 27.0 37 - 47 09/30/2017 [facility] CBC/DIFF MCV 75 82 - 92 09/30/2017 [facility] CBC/DIFF MCH 21.5 27 - 32 09/30/2017 [facility] CBC/DIFF MCHC 28.9 32 - 36 09/30/2017 [facility] CBC/DIFF RDW 54.4 36.4 - 46.3 09/30/2017 [facility] CBC/DIFF Platelet 300 150 - 400 09/30/2017 [facility] CBC/DIFF Mean Platelet Volume 11.4 9.4 - 12.4 09/30/2017 [facility] CBC/DIFF Percent NRBC 0.0 09/30/2017 [facility] CBC/DIFF Absolute NRBC 0.00 09/30/2017 [facility] CBC/DIFF Neutrophil 44.5 34 - 70 09/30/2017 [facility] CBC/DIFF Lymphocyte 37.9 20 - 50 09/30/2017 [facility] CBC/DIFF Monocyte 12.4 5 - 12 09/30/2017 [facility] CBC/DIFF Eosinophil 4.6 0.7 - 5 09/30/2017 [facility] CBC/DIFF Basophil 0.3 0.1 - 1.2 09/30/2017 [facility] CBC/DIFF Pct Immat Gran 0.3 0.0 - 0.5 09/30/2017 [facility] CBC/DIFF Neutrophil, Abs 1.66 1.56 - 6.13 09/30/2017 [facility] CBC/DIFF Lymphocyte, Abs 1.41 1.18 - 3.74 09/30/2017 [facility] CBC/DIFF Monocyte, Abs 0.46 0.24 - 0.36 09/30/2017 [facility] CBC/DIFF Eosinophil, Abs 0.17 0.04 - 0.36 09/30/2017 [facility] CBC/DIFF Basophil, Abs 0.01 0.01 - 0.08 09/30/2017 [facility] CBC/DIFF Absol Immat Gran 0.01 0 - 0.03 09/30/2017 [facility] CBC/DIFF Lab Interpretation Abnormal 09/30/2017 [facility] VITAMIN B12 Vitamin B12 656 211 - 911 09/29/2017 [facility] FERRITIN Ferritin 30.60 11 - 306.8 09/29/2017 [facility] FOLIC ACID Folic Acid 19.9 5.9 - 24.8 09/29/2017 [facility] HAPTOGLOBIN Haptoglobin 206.5 44 - 215 09/29/2017 [facility] IRON PROFILE Iron 182 50 - 212 09/29/2017 [facility] IRON PROFILE TIBC 312 250 - 450 09/29/2017 [facility] IRON PROFILE % Iron Sat 58 09/29/2017 [facility] LDH LDH 161 84 - 246 09/29/2017 [facility] RETIC COUNT Retic Count 1.3 0.5 - 1.7 09/29/2017 [facility] RETIC COUNT Immature Retic 18.2 3 - 15.9 09/29/2017 [facility] RETIC COUNT Ret Hgb Equivalent 23.00 30.8 - 36.6 09/29/2017 [facility] RETIC COUNT Absolute Retic 0.05 0.02 - 0.08 09/29/2017 [facility] RETIC COUNT Lab Interpretation Abnormal 09/29/2017 [facility] HEPATITIS PANEL HCV IgG Negative NEG 09/29/2017 [facility] HEPATITIS PANEL HBsAg Negative NEG 09/29/2017 [facility] HEPATITIS PANEL HAV, IgM Negative NEG 09/29/2017 [facility] HEPATITIS PANEL HBcAb, IgM Negative NEG 09/29/2017 [facility] VANCOMYCIN, TROUGH Vancomycin, Trough 9.7 10 - 20 09/29/2017 [facility] VANCOMYCIN, TROUGH Lab Interpretation Abnormal 09/29/2017 [facility] LIVER PROFILE T Protein 6.9 6.4 - 8.2 09/28/2017 [facility] LIVER PROFILE Albumin 2.6 3.4 - 5 09/28/2017 [facility] LIVER PROFILE T Bilirubin 0.3 0.2 - 1 09/28/2017 [facility] LIVER PROFILE Alk Phos 179 45 - 117 09/28/2017 [facility] LIVER PROFILE AST 26 15 - 37 09/28/2017 [facility] LIVER PROFILE ALT 21 12 - 78 09/28/2017 [facility] LIVER PROFILE D Bilirubin 0.1 0 - 0.2 09/28/2017 [facility] LIVER PROFILE Lab Interpretation Abnormal 09/28/2017 [facility] MAGNESIUM Magnesium 1.4 1.8 - 2.4 09/28/2017 [facility] MAGNESIUM Lab Interpretation Abnormal 09/28/2017 [facility] PHOSPHORUS Phosphorus 2.6 2.5 - 4.9 09/28/2017 [facility] TOTAL T3 Total T3 >800 87 - 178 09/28/2017 [facility] TOTAL T3 Lab Interpretation Abnormal 09/28/2017 [facility] URINE DRUG SCREEN Amphetamine Negative NEG 09/27/2017 Calibrated Standard: D-Methamphetamine
Positive if urine level >sn=4209 ng/mL

[facility] URINE DRUG SCREEN Barbiturate Negative NEG 09/27/2017 Calibrated Standard: Secobarbital
Positive if urine level is >cq=412 ng/mL

[facility] URINE DRUG SCREEN Benzodiazepine Negative NEG 09/27/2017 Calibrated Standard: Lormethazepam
Positive if urine level is >cf=144 ng/mL

[facility] URINE DRUG SCREEN Cannabinoid Negative NEG 09/27/2017 Calibrated Standard: 11 nor-delta(9)-THC carboxylic a
Positive if urine level >or=50

[facility] URINE DRUG SCREEN Cocaine Negative NEG 09/27/2017 Calibrated Standard: Benzoylecgonine
Positive if urine level >lr=596

[facility] URINE DRUG SCREEN Opiate, Ur Positive NEG 09/27/2017 Calibrated Standard: Morphine
Positive if urine level >pf=293

[facility] URINE DRUG SCREEN PCP Negative NEG 09/27/2017 Calibrated Standard: Phencyclidine
Positive if urine level >or=25
Urine Toxicology Screen results are to be used only for Medical purposes.

[facility] URINE DRUG SCREEN Lab Interpretation Abnormal 09/27/2017 [facility] PT/INR/PTT PT 14.6 11.8 - 15.0 09/27/2017 [facility] PT/INR/PTT INR 1.1 SUGGESTED THERAPEUTIC RANGES: INR 2.0-3.0 for MODERATE INTENSITY ANTICOAGULATION INR 2.5-3.5 for HIGH INTENSITY ANTICOAGULATION 09/27/2017 [facility] PT/INR/PTT PTT 34.3 23.6 - 36.4 09/27/2017 [facility] COMPREHENSIVE METABOLIC PANEL(DBIL NOT INCLUDED) Albumin 2.7 3.4 - 5 09/27/2017 [facility] COMPREHENSIVE METABOLIC PANEL(DBIL NOT INCLUDED) Calcium 8.3 8.5 - 10.2 09/27/2017 [facility] COMPREHENSIVE METABOLIC PANEL(DBIL NOT INCLUDED) CO2 25 21 - 32 09/27/2017 [facility] COMPREHENSIVE METABOLIC PANEL(DBIL NOT INCLUDED) Chloride 104 98 - 107 09/27/2017 [facility] COMPREHENSIVE METABOLIC PANEL(DBIL NOT INCLUDED) Creatinine 0.23 0.6 - 1.3 09/27/2017 [facility] COMPREHENSIVE METABOLIC PANEL(DBIL NOT INCLUDED) Glucose 124 70 - 99 09/27/2017 [facility] COMPREHENSIVE METABOLIC PANEL(DBIL NOT INCLUDED) Alk Phos 217 45 - 117 09/27/2017 [facility] COMPREHENSIVE METABOLIC PANEL(DBIL NOT INCLUDED) Potassium 3.3 3.5 - 5.1 09/27/2017 [facility] COMPREHENSIVE METABOLIC PANEL(DBIL NOT INCLUDED) Sodium 137 136 - 145 09/27/2017 [facility] COMPREHENSIVE METABOLIC PANEL(DBIL NOT INCLUDED) ALT 22 12 - 78 09/27/2017 [facility] COMPREHENSIVE METABOLIC PANEL(DBIL NOT INCLUDED) AST 31 15 - 37 09/27/2017 [facility] COMPREHENSIVE METABOLIC PANEL(DBIL NOT INCLUDED) Urea Nitrogen 10 7 - 18 09/27/2017 [facility] COMPREHENSIVE METABOLIC PANEL(DBIL NOT INCLUDED) T Bilirubin 0.3 0.2 - 1 09/27/2017 [facility] COMPREHENSIVE METABOLIC PANEL(DBIL NOT INCLUDED) T Protein 7.2 6.4 - 8.2 09/27/2017 [facility] COMPREHENSIVE METABOLIC PANEL(DBIL NOT INCLUDED) GFR, Estimated >60 mL/min/1.73 m2 09/27/2017 [facility] METABOLIC PANEL(DBIL NOT INCLUDED) GFR, Estim, Afr-Am >60 mL/min/1.73 m2 09/27/2017 [facility] METABOLIC PANEL(DBIL NOT INCLUDED) Anion Gap 8 09/27/2017 [facility] METABOLIC PANEL(DBIL NOT INCLUDED) Lab Interpretation Abnormal 09/27/2017 [facility] 12 LEAD EKG 12 LEAD EKG FOR CHP Ebenezer Cullen [facility] Test Date:2017-09-26 Pat Name: CHIKA BOJORQUEZ Department: : Gender: FTechnician: [id number] Requested By: Order Number:Reading MD: Merrill BRIGHT Measurements IntervalsAxis Rate: 135P:52 IN: 164QRS:27 QRSD: 81 T:56 QT: 291 QTc:437 Interpretive Statements SINUS TACHYCARDIA POSSIBLE LEFT ATRIAL ENLARGEMENT Poor anterior R wave progression Technically Poor Tracing affects interpretation Abnormal ECG Electronically Signed On 09-27-17 07:49:15 DOG BEHAVIORIST by Merrill BRIGHT 09/27/2017 [facility] FREE T4 Free T4 >6.00 0.61 - 1.12 09/27/2017 females:
1st Trimester-0.52-1.10 ng/dL
2nd Trimester=0.45- 0.99 ng/dL
3rd Trimester=0.48-0.95 ng/dL

[facility] FREE T4 Lab Interpretation Abnormal 09/27/2017 [facility] TSH TSH <0.01 0.45 - 5.33 09/27/2017 [facility] TSH Lab Interpretation Abnormal 09/27/2017 [facility] BEDSIDE ULTRASOUND <p>Lamar Hinojosa MD 11/08/2017 [...] LV function hyperdynamic, no pericardial effusion. [facility] [place] [facility] 7.46 7.33 - 7.43 [facility] pCO2, [place] POC 34.0 38.0 - 50.0 09/27/2017 [facility] pO2, [place] POC 125 50 - 75 09/27[facility] Base Excess, [place] POC 1 09/[facility] HCO3, [place] POC 24.2 22 - 26 09/27/[facility] % Sat, [place] POC 99 60 - 85 [facility]/27[facility] Lactic Acid, [place] POC 1.66 0.4 - 2 09/27/2017 [facility] TCO2, [place] POC 25 21 - 32 09/27[facility] Lab Interpretation Abnormal 09/27/2017 [facility] BLOOD CULTURE Spec Description Blood 09/27/2017 [facility] BLOOD CULTURE Order Comments None 09/27/2017 [facility] BLOOD CULTURE Culture No growth 5 days 09/27/2017 [facility] BLOOD CULTURE Report Status Final 10/02/2017 09/27/2017 [facility] UA CHEMISTRIES Color Yellow 09/27/2017 [facility] UA CHEMISTRIES Clarity Cloudy 09/27/2017 [facility] UA CHEMISTRIES Spec [place] 1.020 1.001 - 1.035 09/27/2017 [facility] UA CHEMISTRIES pH 5.0 5 - 8 09/27/2017 [facility] UA CHEMISTRIES Protein 2+ NEG 09/27/2017 [facility] UA CHEMISTRIES Glucose Negative NEG 09/27/2017 [facility] UA CHEMISTRIES Ketone Negative NEG 09/27/2017 [facility] UA CHEMISTRIES Bilirubin Negative NEG 09/27/2017 [facility] UA CHEMISTRIES Nitrate Negative NEG 09/27/2017 [facility] UA CHEMISTRIES Urobilinogen <1.0 0.2 - 1 09/27/2017 [facility] UA CHEMISTRIES Leukocyte 3+ NEG 09/27/2017 [facility] UA CHEMISTRIES Blood 3+ NEG 09/27/2017 [facility] UA CHEMISTRIES RBC >182 0 - 4 09/27/2017 [facility] UA CHEMISTRIES WBC >182 0 - 5 09/27/2017 [facility] UA CHEMISTRIES Bacteria Few 09/27/2017 [facility] UA CHEMISTRIES Yeast Present 09/27/2017 [facility] UA CHEMISTRIES Epithelial Cell 1 /HPF 09/27/2017 [facility] UA CHEMISTRIES Calc Ox [place] Present 09/27/2017 [facility] UA CHEMISTRIES Lab Interpretation Abnormal 09/27/2017 [facility] URINE CULTURE Culture No growth 2 days BT MICROBIOLOGY 09/27/2017 [facility] POC CO2 POC 22 21 - 32 09/27/2017 Physician Notified [facility] POC Chloride POC 98 98 - 107 09/27/2017 [facility] POC Potassium POC 4.2 3.5 - 5.1 09/27/2017 [facility] POC Sodium POC 137 136 - 145 09/27/2017 [facility] POC Glucose POC 193 74 - 106 09/27/2017 [facility] POC Urea Nitrogen POC 12 7 - 18 09/27/2017 [facility] POC Creatinine POC <0.2 0.6 - 1.3 09/27/2017 [facility] POC Calcium Ionized POC 1.15 1.15 - 1.29 09/27/2017 [facility] POC Hemoglobin POC 12.6 12 - 16 09/27/2017 [facility] POC Hematocrit POC 37.0 37 - 47 09/27/2017 [facility] POC GFR, Estimated Unable to calculate, parameters incomplete mL/min/1.73 m2 09/27/2017 [facility] POC GFR, Estim, Afr-Am Unable to calculate, parameters incomplete mL/min/1.73 m2 09/27/2017 [facility] BMP POC Lab Interpretation Abnormal 09/27/2017 [facility] (note) Name CHIKA BOJORQUEZ Date of 1975 Hospital Number [id number] Location Gy[facility]cology [facility] CYTOPATHOLOGY Collected:09/23/2017 13:30 Received: [...] analyzed by the automated ThinPrep Imaging System, [employer], [place]. 09/26/2017 [facility] HPV HIGH-RISK HPV High Risk Negative NEG 09/24/2017 The APTIMA HPV Assay is an in vitro nucleic acid amplification test for the
qualitative detection of E6/E7 viral messenger RNA (mRNA) from 14 high-risk
types of human papillomavirus (HPV) in cervical specimens. The high-risk HPV
types detected by the assay include: 16,18,31,33,35,39,45,51,52,56,58,59,66,
and 68.

[facility] HPV HIGH-RISK CoPath Spec Number [id number] 09/24/2017 [facility] SYPHILIS SCREEN FOR INFECTION Treponemal Ab Negative 09/24/2017 [facility] SYPHILIS SCREEN FOR INFECTION Final Report Negative 09/24/2017 [facility] CHLAM/GC DNA AMPLI Chlamydia trach Negative NEG 09/24/2017 [facility] CHLAM/GC DNA AMPLI N gonorrhoeae Negative NEG 09/24/2017 This test utilizes [employer] Aptima Combo 2 Assay for target amplification of
rRNA for the qualitative detection of Chlamydia trachomatis and Neisseria
gonorrhea.

[facility] CHLAM/GC DNA AMPLI Spec Description Endovervical 09/24/2017 [facility] WET MOUNT Spec Description Vaginal 09/24/2017 [facility] WET MOUNT Order Comments None 09/24/2017 [facility] WET [place] Exam WBC's seen Epithelial cells Yeast No Clue cells seen No Trichomonas seen Bacteria present 09/24/2017 [facility] [place]ET M[place] Report Status Final 09/23/2017 09/24/2017 [facility] CLARISSA STAIN Spec Description Vaginal 09/24/2017 [facility] CLARISSA STAIN Order Comments None 09/24/2017 [facility] CLARISSA STAIN Direct Exam Hyphal elements seen 09/24/2017 [facility] CLARISSA STAIN Report Status Final 09/23/2017 09/24/2017 [facility] HEMOGLOBIN A1C Hemoglobin A1c 8.8 4.3 - 6.1 09/24/2017 [facility] HEMOGLOBIN A1C Est Average Gluc 205.9 09/24/2017 [facility] HEMOGLOBIN A1C Lab Interpretation Abnormal 09/24/2017 [facility] HIV-1/HIV-2 DIAGNOSTIC/SYMPTOMATIC HIV-1/HIV-2 Negative NEG 09/23/2017 [facility] Capillary blood glucose measurement by glucometer (mass/volume) Capillary blood glucose measurement by glucometer (mass/volume) 88 70 - 120 09/03/2017 [facility] Serum or plasma triiodothyronine (T3) free measurement (mass/volume) Serum or plasma triiodothyronine (T3) free measurement (mass/volume) 2.1 2.0 - 4.4 09/02/2017 [facility] Free thyroxine index Free thyroxine index [id number] 1.4 - 3.8 09/02/2017 [facility] [...] should be multiplied by the estimated BMI. [facility] ELECTROLYTES Creatinine Lvl 0.20 0.50 - 1.40 03/18/2017 [facility] ELECTROLYTES BUN 8 7 - 22 03/18/2017 [facility] ELECTROLYTES Calcium Lvl 8.7 8.5 - 10.5 03/18/2017 [facility] ELECTROLYTES CO2 24 24 - 32 03/18/2017 [facility] ELECTROLYTES Chloride Lvl 108 95 - 109 03/18/2017 [facility] ELECTROLYTES Sodium Lvl 140 135 - 145 03/18/2017 [facility] ELECTROLYTES Potassium Lvl 3.6 3.5 - 5.1 03/18/2017 [facility] ELECTROLYTES Glucose Lvl 68 70 - 99 03/18/2017 [facility] Lymphocytes # 2.3 1.0 - 5.5 03/18/2017 [facility] Monocytes # 0.6 0.0 - 0.8 03/18/2017 [facility] HEMATOLOGY Eosinophils 5.4 0.0 - 4.0 03/18/2017 [facility] Segs-Bands # 2.4 1.5 - 8.1 03/18/2017 [facility] HEMATOLOGY Basophils 0.3 0.0 - 1.0 03/18/2017 [facility] Eosinophils # 0.3 0.0 - 0.5 03/18/2017 [facility] Lymphocytes 40.8 20.0 - 40.0 03/18/2017 [facility] Monocytes 10.3 2.0 - 12.0 03/18/2017 [facility] Segs 43.2 45.0 - 75.0 03/18/2017 [facility] MPV 10.3 7.4 - 10.4 03/18/2017 [facility] RDW 18.2 11.5 - 14.5 03/18/2017 [facility] MCHC 33.7 32.0 - 36.0 03/18/2017 [facility] Platelet 223 133 - 450 03/18/2017 [facility] HEMATOLOGY Hgb 11.0 12.0 - 16.0 03/18/2017 [facility] HEMATOLOGY MCV 80.5 80.0 - 98.0 03/18/2017 [facility] HEMATOLOGY Hct 32.7 36.0 - 48.0 03/18/2017 [facility] HEMATOLOGY RBC 4.06 4.20 - 5.40 03/18/2017 [facility] HEMATOLOGY WBC 5.6 3.7 - 10.4 03/18/2017 [facility] HEMATOLOGY MCH 27.1 27.0 - 31.0 03/18/2017 [facility] CHEM PANEL eGFR 152 03/17/2017 Result [...] should be multiplied by the estimated BMI. [facility] CHEM PANEL Sodium Lvl 138 135 - 145 03/17/2017 [facility] CHEM PANEL Creatinine Lvl 0.24 0.50 - 1.40 03/17/2017 [facility] CHEM PANEL Potassium Lvl 3.9 3.5 - 5.1 03/17/2017 [facility] CHEM PANEL CO2 23 24 - 32 03/17/2017 [facility] CHEM PANEL Chloride Lvl 107 95 - 109 03/17/2017 [facility] CHEM PANEL AGAP 11.9 10.0 - 20.0 03/17/2017 [facility] CHEM PANEL Calcium Lvl 8.6 8.5 - 10.5 03/17/2017 [facility] CHEM PANEL Glucose Lvl 201 70 - 99 03/17/2017 [facility] CHEM PANEL BUN 10 7 - 22 03/17/2017 [facility] HEMATOLOGY Basophils 0.4 0.0 - 1.0 [...] HEMATOLOGY MCH 27.1 27.0 - 31.0 03/17/2017 [facility] HEMATOLOGY MCV 81.7 80.0 - 98.0 03/17/2017 [facility] HEMATOLOGY RBC 4.01 4.20 - 5.40 03/17/2017 [facility] HEMATOLOGY Hct 32.8 36.0 - 48.0 03/17/2017 [facility] HEMATOLOGY Hgb 10.9 12.0 - 16.0 03/17/2017 [facility] HEMATOLOGY MPV 9.9 7.4 - 10.4 03/17/2017 [facility] HEMATOLOGY Platelet 208 133 - 450 03/17/2017 [facility] HEMATOLOGY MCHC 33.2 32.0 - 36.0 03/17/2017 [facility] HEMATOLOGY RDW 18.1 11.5 - 14.5 03/17/2017 [facility] HEMATOLOGY RDW 17.8 11.5 - 14.5 03/16/2017 [facility] HEMATOLOGY Platelet 211 133 - 450 03/16/2017 [facility] HEMATOLOGY MPV 10.1 7.4 - 10.4 03/16/2017 [facility] HEMATOLOGY Hgb 11.3 12.0 - 16.0 03/16/2017 [facility] HEMATOLOGY Hct 34.3 36.0 - 48.0 03/16/2017 [facility] HEMATOLOGY MCV 81.4 80.0 - 98.0 03/16/2017 [facility] HEMATOLOGY MCH 26.9 27.0 - 31.0 03/16/2017 [facility] HEMATOLOGY WBC 4.7 3.7 - 10.4 03/16/2017 [facility] HEMATOLOGY MCHC 33.0 32.0 - 36.0 03/16/2017 [facility] HEMATOLOGY RBC 4.21 4.20 - 5.40 03/16/2017 [facility] HEMATOLOGY Lymphocytes # 2.0 1.0 - 5.5 03/16/2017 [facility] HEMATOLOGY Monocytes # 0.3 0.0 - 0.8 03/16/2017 [facility] HEMATOLOGY Eosinophils 4.5 0.0 - 4.0 03/16/2017 [facility] HEMATOLOGY Monocytes 6.9 2.0 - 12.0 03/16/2017 [facility] HEMATOLOGY Basophils 0.6 0.0 - 1.0 03/16/2017 [facility] Segs-Bands # 2.1 1.5 - 8.1 03/16/2017 [facility] HEMATOLOGY Segs 44.8 45.0 - 75.0 03/16/2017 [facility] Lymphocytes 43.2 20.0 - 40.0 03/16/2017 [facility] Eosinophils # 0.2 0.0 - 0.5 03/16/2017 [facility] PARATHYROID PROFILE Ca Ion WB 1.14 1.05 - 1.25 03/16/2017 [facility] PARATHYROID PROFILE Ca Norm WB 1.10 1.05 - 1.25 03/16/2017 [facility] CHEM PANEL eGFR 178 03/16/2017 Result [...] should be multiplied by the estimated BMI. [facility] CHEM PANEL Potassium Lvl 2.9 3.5 - 5.1 03/16/2017 Result Comment: Critical Result(s) called to Jm Curtis at 03/16/2017 09:43 byHA. Read back OK. [facility] CHEM PANEL Sodium Lvl 141 135 - 145 03/16/2017 [facility] CHEM PANEL Glucose Lvl 165 70 - 99 03/16/2017 [facility] CHEM PANEL Creatinine Lvl <0.15 0.50 - 1.40 03/16/2017 [facility] CHEM PANEL BUN 8 7 - 22 03/16/2017 [facility] CHEM PANEL Chloride Lvl 111 95 - 109 03/16/2017 [facility] CHEM PANEL Calcium Lvl 6.8 8.5 - 10.5 03/16/2017 [facility] CHEM PANEL AGAP 9.9 10.0 - 20.0 03/16/2017 [facility] CHEM PANEL CO2 23 24 - 32 03/16/2017 [facility] CHEM PANEL Lipase Lvl 361 73 - 393 03/14/2017 [facility] CHEM PANEL Magnesium Lvl 1.8 1.8 - 2.4 03/12/2017 [facility] CHEM PANEL Phosphorus 3.3 2.5 - 4.5 03/12/2017 [facility] CHEM PANEL Magnesium Lvl 2.2 1.8 - 2.4 03/11/2017 [facility] CHEM PANEL Phosphorus 2.9 2.5 - 4.5 03/11/2017 [facility] CHEM PANEL Magnesium Lvl 1.3 1.8 - 2.4 03/11/2017 [facility] CHEM PANEL Phosphorus 3.3 2.5 - 4.5 03/10/2017 [facility] SPECIAL CHEMISTRY Hgb A1C 11.5 <=5.6 % 03/10/2017 [facility] CHEM PANEL Ketone Quantitative 0.86 <=0.27 mmol/L 03/10/2017 [facility] CHEM PANEL Ketone Quantitative 0.30 <=0.27 mmol/L 03/10/2017 [facility] CHEM PANEL Ketone Quantitative 2.16 <=0.27 mmol/L 03/10/2017 [facility] SPECIAL CHEMISTRY Hgb A1C 11.6 <=5.6 % 03/10/2017 [facility] BACTERIAL - SEROLOGY MRSA by PCR Negative (03/10/17 1:00 AM) 03/10/2017 [facility] CHEM PANEL Lactic Acid Lvl 1.5 0.5 - 2.2 03/10/2017 [facility] DRUG SCREEN UDS Note See Note (03/09/17 10:23 PM) 03/10/2017 [facility] DRUG SCREEN U Phencyc Scr Negative [...] Negative *NA* (03/09/17 10:23 PM) Negative 03/10/2017 [facility] ENDOCRINOLOGY S Preg Negative *NA* (03/09/17 10:23 PM) Negative 03/10/2017 [facility] URINE AND STOOL UA Urobilinogen <=1.0 [...] Negative *NA* (03/09/17 10:23 PM) Negative 03/10/2017 [facility] URINE AND STOOL UA [place] Yeast Many /HPF None Seen /HPF 03/10/2017 [facility] URINE AND STOOL UA Hyal Cast 3 0 - 2 03/10/2017 [facility] URINE AND STOOL UA WBC >182 0 - 5 03/10/2017 [facility] URINE AND STOOL UA Mucus Few /LPF None Seen /LPF 03/10/2017 [facility] URINE AND STOOL UA Bacteria Occasional /HPF None Seen /HPF 03/10/2017 [facility] CARDIAC ENZYMES CK MB 3.1 0.5 - 3.6 03/10/2017 [facility] CARDIAC ENZYMES Total CK 53 12 - 191 03/10/2017 [facility] CARDIAC ENZYMES Troponin-I <0.02 0.00 - 0.40 03/10/2017 [facility] CARDIAC ENZYMES CK MB Index 5.8 0.0 - 2.5 03/10/2017 [facility] CHEM PANEL Lipase Lvl 320 73 - 393 03/10/2017 [facility] CHEM PANEL Albumin Lvl 3.7 3.5 - 5.0 03/10/2017 [facility] CHEM PANEL Total Protein 9.6 6.4 - 8.4 03/10/2017 [facility] CHEM PANEL B/C Ratio 44 6 - 25 03/10/2017 [facility] CHEM PANEL Globulin 5.9 2.7 - 4.2 03/10/2017 [facility] CHEM PANEL AST 45 0 - 37 03/10/2017 [facility] CHEM PANEL ALT 34 0 - 65 03/10/2017 [facility] CHEM PANEL Bili Total 0.8 0.2 - 1.3 03/10/2017 [facility] CHEM PANEL Alk Phos 184 39 - 136 03/10/2017 [facility] CHEM PANEL A/G Ratio 0.6 0.7 - 1.6 03/10/2017 [facility] CHEM PANEL Lipase Lvl 264 73 - 393 12/29/2016 [facility] CHEM PANEL eGFR 178 12/29/2016 Result [...] PANEL Globulin 3.7 2.7 - 4.2 12/29/2016 [facility] CHEM PANEL AST 18 0 - 37 12/29/2016 [facility] CHEM PANEL A/G Ratio 0.5 0.7 - 1.6 12/29/2016 [facility] CHEM PANEL Alk Phos 134 39 - 136 12/29/2016 [facility] CHEM PANEL ALT 12 0 - 65 12/29/2016 [facility] CHEM PANEL Bili Total 1.0 0.2 - 1.3 12/29/2016 [facility] CHEM PANEL Total Protein 5.6 6.4 - 8.4 12/29/2016 [facility] CHEM PANEL Albumin Lvl 1.9 3.5 - 5.0 12/29/2016 [facility] CHEM PANEL Sodium Lvl 140 135 - 145 12/29/2016 [facility] CHEM PANEL Creatinine Lvl <0.15 0.50 - 1.40 12/29/2016 [facility] CHEM PANEL BUN 4 7 - 22 12/29/2016 [facility] CHEM PANEL Potassium Lvl 3.2 3.5 - 5.1 12/29/2016 [facility] CHEM PANEL Chloride Lvl 103 95 - 109 12/29/2016 [facility] CHEM PANEL CO2 23 24 - 32 12/29/2016 [facility] CHEM PANEL Glucose Lvl 151 70 - 99 12/29/2016 [facility] CHEM PANEL AGAP 17.2 10.0 - 20.0 12/29/2016 [facility] CHEM PANEL B/C Ratio See Note 4 (12/29/16 4:07 AM) 6 - 25 12/29/2016 Result Comment: can not calculate b/c ratio due to creatinine <0.15 [facility] CHEM PANEL Calcium Lvl 7.8 8.5 - 10.5 12/29/2016 [facility] CHEM PANEL Amylase Lvl 33 25 - 115 12/29/2016 [facility] HEMATOLOGY Eosinophils # 0.1 0.0 - 0.5 12/29/2016 [facility] HEMATOLOGY Basophils 0.2 0.0 - 1.0 12/29/2016 [facility] Lymphocytes # 1.4 1.0 - 5.5 12/29/2016 [facility] Segs-Bands # 3.5 1.5 - 8.1 12/29/2016 [facility] Monocytes # 0.7 0.0 - 0.8 12/29/2016 [facility] Eosinophils 1.7 0.0 - 4.0 12/29/2016 [facility] Lymphocytes 24.3 20.0 - 40.0 12/29/2016 [facility] Segs 62.2 45.0 - 75.0 12/29/2016 [facility] Monocytes 11.6 2.0 - 12.0 12/29/2016 [facility] WBC 5.7 3.7 - 10.4 12/29/2016 [facility] Hgb 8.9 12.0 - 16.0 12/29/2016 [facility] Hct 26.9 36.0 - 48.0 12/29/2016 [facility] RBC 3.25 4.20 - 5.40 12/29/2016 [facility] MCV 82.8 80.0 - 98.0 12/29/2016 [facility] Platelet 138 133 - 450 12/29/2016 [facility] MPV 10.9 7.4 - 10.4 12/29/2016 [facility] MCH 27.3 27.0 - 31.0 12/29/2016 [facility] RDW 14.2 11.5 - 14.5 12/29/2016 [facility] MCHC 33.0 32.0 - 36.0 12/29/2016 [facility] SPECIAL CHEMISTRY Hgb A1C 9.6 <=5.6 % 12/29/2016 [facility] CHEM PANEL Phosphorus 3.0 2.5 - 4.5 12/28/2016 [facility] CHEM PANEL Magnesium Lvl 1.2 1.8 - 2.4 12/28/2016 [facility] CHEM PANEL eGFR 159 12/28/2016 Result [...] should be multiplied by the estimated BMI. [facility] CHEM PANEL Creatinine Lvl 0.21 0.50 - 1.40 12/28/2016 [facility] CHEM PANEL BUN 4 7 - 22 12/28/2016 [facility] CHEM PANEL Glucose Lvl 151 70 - 99 12/28/2016 [facility] CHEM PANEL CO2 23 24 - 32 12/28/2016 [facility] CHEM PANEL Chloride Lvl 102 95 - 109 12/28/2016 [facility] CHEM PANEL Potassium Lvl 3.7 3.5 - 5.1 12/28/2016 [facility] CHEM PANEL Sodium Lvl 135 135 - 145 12/28/2016 [facility] CHEM PANEL Calcium Lvl 8.3 8.5 - 10.5 12/28/2016 [facility] CHEM PANEL AGAP 13.7 10.0 - 20.0 12/28/2016 [facility] Platelet 158 133 - 450 12/28/2016 [facility] MPV 10.8 7.4 - 10.4 12/28/2016 [facility] RBC 3.88 4.20 - 5.40 12/28/2016 [facility] WBC 7.4 3.7 - 10.4 12/28/2016 [facility] Hgb 10.6 12.0 - 16.0 12/28/2016 [facility] MCH 27.4 27.0 - 31.0 12/28/2016 [facility] MCV 82.3 80.0 - 98.0 12/28/2016 [facility] Hct 31.9 36.0 - 48.0 12/28/2016 [facility] RDW 14.2 11.5 - 14.5 12/28/2016 [facility] MCHC 33.2 32.0 - 36.0 12/28/2016 [facility] HEMATOLOGY Basophils 0.1 0.0 - 1.0 12/28/2016 [facility] Monocytes # 0.8 0.0 - 0.8 12/28/2016 [facility] Eosinophils # 0.1 0.0 - 0.5 12/28/2016 [facility] HEMATOLOGY Segs-Bands # 5.1 1.5 - 8.1 12/28/2016 [facility] HEMATOLOGY Lymphocytes # 1.3 1.0 - 5.5 12/28/2016 [facility] HEMATOLOGY Eosinophils 1.0 0.0 - 4.0 12/28/2016 [facility] HEMATOLOGY Monocytes 11.3 2.0 - 12.0 12/28/2016 [facility] HEMATOLOGY Segs 69.6 45.0 - 75.0 12/28/2016 [facility] HEMATOLOGY Lymphocytes 18.0 20.0 - 40.0 12/28/2016 [facility] CHEM PANEL Magnesium Lvl 2.0 1.8 - 2.4 12/27/2016 [facility] ELECTROLYTES Potassium Lvl 4.4 3.5 - 5.1 12/27/2016 [facility] CARDIAC ENZYMES Troponin-I <0.02 0.00 - 0.40 12/27/2016 [facility] CARDIAC ENZYMES Total CK 20 12 - 191 12/27/2016 [facility] CARDIAC ENZYMES Troponin-I <0.02 0.00 - 0.40 12/27/2016 [facility] CARDIAC ENZYMES Total CK 21 12 - 191 12/27/2016 [facility] CHEM PANEL Phosphorus 3.2 2.5 - 4.5 12/27/2016 [facility] CHEM PANEL Magnesium Lvl 1.4 1.8 - 2.4 12/27/2016 [facility] CHEM PANEL eGFR 178 12/27/2016 Result [...] should be multiplied by the estimated BMI. [facility] CHEM PANEL BUN 6 7 - 22 12/27/2016 [facility] CHEM PANEL Glucose Lvl 130 70 [...] PANEL Ketone Quantitative 1.04 <=0.27 mmol/L 12/27/2016 [facility] HEMATOLOGY WBC 5.8 3.7 - 10.4 12/27/2016 [facility] HEMATOLOGY RBC 3.65 4.20 - 5.40 12/27/2016 [facility] HEMATOLOGY MCH 27.4 27.0 - 31.0 12/27/2016 [facility] HEMATOLOGY MCHC 34.1 32.0 - 36.0 12/27/2016 [facility] HEMATOLOGY Hct 29.4 36.0 - 48.0 12/27/2016 [facility] HEMATOLOGY MCV 80.5 80.0 - 98.0 12/27/2016 [facility] HEMATOLOGY Hgb 10.0 12.0 - 16.0 12/27/2016 [facility] HEMATOLOGY MPV 11.3 7.4 - 10.4 12/27/2016 [facility] HEMATOLOGY RDW 14.2 11.5 - 14.5 12/27/2016 [facility] HEMATOLOGY Platelet 166 133 - 450 12/27/2016 [facility] HEMATOLOGY INR 1.15 0.85 - 1.17 12/27/2016 [facility] HEMATOLOGY PT 14.9 12.0 - 14.7 12/27/2016 [facility] HEMATOLOGY PTT 28.7 22.9 - 35.8 12/27/2016 [facility] HEMATOLOGY Eosinophils # 0.1 0.0 - 0.5 12/27/2016 [facility] HEMATOLOGY Monocytes # 0.6 0.0 - 0.8 12/27/2016 [facility] HEMATOLOGY Eosinophils 1.7 0.0 - 4.0 12/27/2016 [facility] HEMATOLOGY Lymphocytes 21.2 20.0 - 40.0 12/27/2016 [facility] HEMATOLOGY Monocytes 10.6 2.0 - 12.0 12/27/2016 [facility] HEMATOLOGY Segs 66.4 45.0 - 75.0 12/27/2016 [facility] HEMATOLOGY Lymphocytes # 1.2 1.0 - 5.5 12/27/2016 [facility] HEMATOLOGY Segs-Bands # 3.9 1.5 - 8.1 12/27/2016 [facility] HEMATOLOGY Basophils 0.1 0.0 - 1.0 12/27/2016 [facility] BACTERIAL - SEROLOGY MRSA by PCR Negative (12/27/16 3:17 AM) 12/27/2016 [facility] URINE AND STOOL UA [place] Yeast Occasional *ABN* (12/27/16 3:17 AM) None Seen 12/27/2016 [facility] URINE AND STOOL UA [place] Yeast Moderate /HPF None Seen /HPF 12/27/2016 [...] STOOL UA Spec Grav 1.010 <=1.030 12/27/2016 [facility] URINE AND STOOL UA Glucose Negative mg/dL Negative mg/dL 12/27/2016 [facility] URINE AND STOOL UA Protein 30 mg/dL Negative mg/dL 12/27/2016 [facility] URINE AND STOOL UA Color Yellow *NA* (12/27/16 3:17 AM) Yellow 12/27/2016 [facility] URINE AND STOOL UA Urobilinogen <=1.0 mg/dL 0.1 - 1.0 12/27/2016 [facility] URINE AND STOOL UA Ketones Negative mg/dL Negative mg/dL 12/27/2016 [facility] URINE AND STOOL UA Blood Large *ABN* (12/27/16 3:17 AM) Negative 12/27/2016 [facility] URINE AND STOOL UA Bili Negative *NA* (12/27/16 3:17 AM) Negative 12/27/2016 [facility] URINE AND STOOL UA Leuk Est Large *ABN* (12/27/16 3:17 AM) Negative 12/27/2016 [facility] URINE AND STOOL UA Nitrite Negative (12/27/16 3:17 AM) Negative 12/27/2016 [facility] CHEM PANEL Bili Indirect 0.7 0.0 - 1.0 09/21/2016 [facility] CHEM PANEL Globulin 5.2 2.7 - 4.2 09/21/2016 [facility] CHEM PANEL A/G Ratio 0.4 0.7 - 1.6 09/21/2016 [facility] CHEM PANEL Bili Direct 0.2 0.0 - 0.3 09/21/2016 [facility] CHEM PANEL Albumin Lvl 2.2 3.5 - 5.0 09/21/2016 [facility] CHEM PANEL ALT 63 0 - 65 09/21/2016 [facility] CHEM PANEL Bili Total 0.9 0.2 - 1.3 09/21/2016 [facility] CHEM PANEL AST 39 0 - 37 09/21/2016 [facility] CHEM PANEL Alk Phos 239 39 - 136 09/21/2016 [facility] CHEM PANEL Total Protein 7.4 6.4 - 8.4 09/21/2016 [facility] CHEM PANEL Magnesium Lvl 1.5 1.8 - 2.4 09/21/2016 [facility] CHEM PANEL Glucose Lvl 91 70 - 99 09/21/2016 [facility] CHEM PANEL BUN 5 7 - 22 09/21/2016 [facility] CHEM PANEL Potassium Lvl 3.6 3.5 - 5.1 09/21/2016 [facility] CHEM PANEL Sodium Lvl 133 135 - 145 09/21/2016 [facility] CHEM PANEL Creatinine Lvl 0.18 0.50 - 1.40 09/21/2016 [facility] CHEM PANEL Chloride Lvl 98 95 - 109 09/21/2016 [facility] CHEM PANEL CO2 26 24 - 32 09/21/2016 [facility] CHEM PANEL Calcium Lvl 8.3 8.5 - 10.5 09/21/2016 [facility] CHEM PANEL AGAP 12.6 10.0 - 20.0 09/21/2016 [facility] CHEM PANEL eGFR 169 09/21/2016 Result [...] should be multiplied by the estimated BMI. [facility] HEMATOLOGY Platelet 199 133 - 450 09/21/2016 [facility] HEMATOLOGY RDW 15.1 11.5 - 14.5 09/21/2016 [facility] HEMATOLOGY MPV 10.5 7.4 - 10.4 09/21/2016 [facility] HEMATOLOGY Hgb 10.9 12.0 - 16.0 09/21/2016 [facility] HEMATOLOGY MCV 86.0 80.0 - 98.0 09/21/2016 [facility] HEMATOLOGY Hct 32.5 36.0 - 48.0 09/21/2016 [facility] MCHC 33.6 32.0 - 36.0 09/21/2016 [facility] MCH 28.9 27.0 - 31.0 09/21/2016 [facility] RBC 3.78 4.20 - 5.40 09/21/2016 [facility] WBC 6.0 3.7 - 10.4 09/21/2016 [facility] HEMATOLOGY Eosinophils # 0.2 0.0 - 0.5 09/21/2016 [facility] HEMATOLOGY Lymphocytes # 1.3 1.0 - 5.5 09/21/2016 [facility] HEMATOLOGY Segs-Bands # 3.7 1.5 - 8.1 09/21/2016 [facility] Monocytes # 0.8 0.0 - 0.8 09/21/2016 [facility] HEMATOLOGY Monocytes 12.7 2.0 - 12.0 09/21/2016 [facility] HEMATOLOGY Eosinophils 3.4 0.0 - 4.0 09/21/2016 [facility] HEMATOLOGY Basophils 0.6 0.0 - 1.0 09/21/2016 [facility] HEMATOLOGY Segs 61.5 45.0 - 75.0 09/21/2016 [facility] Lymphocytes 21.8 20.0 - 40.0 09/21/2016 [facility] CHEM PANEL Lipase Lvl 267 73 - 393 09/20/2016 [facility] CHEM PANEL Amylase Lvl 59 25 - 115 09/20/2016 [facility] CHEM PANEL eGFR 158 09/20/2016 Result [...] should be multiplied by the estimated BMI. [facility] CHEM PANEL Bili Total 0.7 0.2 - 1.3 09/20/2016 [facility] CHEM PANEL AGAP 14.7 10.0 - 20.0 09/20/2016 [facility] CHEM PANEL Calcium Lvl 8.0 8.5 - 10.5 09/20/2016 [facility] CHEM PANEL B/C Ratio 18 6 [...] Sodium Lvl 130 135 - 145 09/20/2016 [facility] CHEM PANEL BUN 4 7 - 22 09/20/2016 [facility] HEMATOLOGY Segs-Bands # 5.9 1.5 - 8.1 09/20/2016 [facility] HEMATOLOGY Basophils 0.4 0.0 - 1.0 09/20/2016 [facility] HEMATOLOGY Eosinophils 2.5 0.0 - 4.0 09/20/2016 [facility] HEMATOLOGY Segs 71.1 45.0 - 75.0 09/20/2016 [facility] HEMATOLOGY Monocytes 11.5 2.0 - 12.0 09/20/2016 [facility] HEMATOLOGY Lymphocytes 14.5 20.0 - 40.0 09/20/2016 [facility] HEMATOLOGY Eosinophils # 0.2 0.0 - 0.5 09/20/2016 [facility] HEMATOLOGY Lymphocytes # 1.2 1.0 - 5.5 09/20/2016 [facility] HEMATOLOGY Monocytes # 1.0 0.0 - 0.8 09/20/2016 [facility] HEMATOLOGY RDW 15.3 11.5 - 14.5 09/20/2016 [facility] HEMATOLOGY MPV 10.2 7.4 - 10.4 09/20/2016 [facility] HEMATOLOGY Platelet 222 133 - 450 09/20/2016 [facility] HEMATOLOGY Hct 32.4 36.0 - 48.0 09/20/2016 [facility] HEMATOLOGY MCHC 33.7 32.0 - 36.0 09/20/2016 [facility] HEMATOLOGY MCV 85.1 80.0 - 98.0 09/20/2016 [facility] MCH 28.7 27.0 - 31.0 09/20/2016 [facility] HEMATOLOGY Hgb 10.9 12.0 - 16.0 09/20/2016 [facility] HEMATOLOGY RBC 3.81 4.20 - 5.40 09/20/2016 [facility] HEMATOLOGY WBC 8.3 3.7 - 10.4 09/20/2016 [facility] CHEM PANEL Lipase Lvl 331 73 - 393 09/18/2016 [facility] CHEM PANEL eGFR 179 09/18/2016 Result [...] should be multiplied by the estimated BMI. [facility] CHEM PANEL B/C Ratio See Note (09/18/16 5:53 AM) 6 - 25 09/18/2016 [facility] CHEM PANEL Albumin Lvl 2.3 3.5 - 5.0 09/18/2016 [facility] CHEM PANEL Total Protein 6.8 6.4 - 8.4 09/18/2016 [facility] CHEM PANEL Globulin 4.5 2.7 - 4.2 09/18/2016 [facility] CHEM PANEL Calcium Lvl 8.1 8.5 - 10.5 09/18/2016 [facility] CHEM PANEL Bili Total 0.3 0.2 - 1.3 09/18/2016 [facility] CHEM PANEL Alk Phos 213 39 [...] PANEL CO2 27 24 - 32 09/18/2016 [facility] CHEM PANEL Glucose Lvl 63 70 - 99 09/18/2016 [facility] CHEM PANEL Chloride Lvl 101 95 - 109 09/18/2016 [facility] CHEM PANEL Creatinine Lvl <0.15 0.50 - 1.40 09/18/2016 [facility] CHEM PANEL BUN 8 7 - 22 09/18/2016 [facility] HEMATOLOGY Basophils 0.5 0.0 - 1.0 09/18/2016 [facility] HEMATOLOGY Lymphocytes # 0.9 1.0 - 5.5 09/18/2016 [facility] HEMATOLOGY Eosinophils # 0.3 0.0 - 0.5 09/18/2016 [facility] HEMATOLOGY Segs-Bands # 3.1 1.5 - 8.1 09/18/2016 [facility] HEMATOLOGY Monocytes # 0.5 0.0 - 0.8 09/18/2016 [facility] HEMATOLOGY Monocytes 9.7 2.0 - 12.0 09/18/2016 [facility] HEMATOLOGY Eosinophils 7.0 0.0 - 4.0 09/18/2016 [facility] HEMATOLOGY Segs 64.1 45.0 - 75.0 09/18/2016 [facility] HEMATOLOGY Lymphocytes 18.7 20.0 - 40.0 09/18/2016 [facility] HEMATOLOGY MCH 29.5 27.0 - 31.0 09/18/2016 [facility] HEMATOLOGY Platelet 224 133 - 450 09/18/2016 [facility] HEMATOLOGY MCHC 34.0 32.0 - 36.0 09/18/2016 [facility] HEMATOLOGY MPV 9.9 7.4 - 10.4 09/18/2016 [facility] HEMATOLOGY RDW 15.0 11.5 - 14.5 09/18/2016 [facility] HEMATOLOGY Hgb 10.7 12.0 - 16.0 09/18/2016 [facility] HEMATOLOGY Hct 31.5 36.0 - 48.0 09/18/2016 [facility] HEMATOLOGY MCV 86.9 80.0 - 98.0 09/18/2016 [facility] HEMATOLOGY RBC 3.63 4.20 - 5.40 09/18/2016 [facility] HEMATOLOGY WBC 4.9 3.7 - 10.4 09/18/2016 [facility] CHEM PANEL Lipase Lvl 307 73 - 393 09/17/2016 [facility] CHEM PANEL B/C Ratio 32 6 - 25 09/17/2016 [facility] CHEM PANEL Amylase Lvl 49 25 - 115 09/17/2016 [facility] CHEM PANEL Amylase Lvl 42 25 - 115 09/16/2016 [facility] CHEM PANEL Magnesium Lvl 1.4 1.8 - 2.4 09/15/2016 [facility] CHEM PANEL Magnesium Lvl 1.5 1.8 - 2.4 09/13/2016 [facility] ENDOCRINOLOGY S Preg Negative *NA* (09/13/16 3:00 AM) Negative 09/13/2016 [facility] HEMATOLOGY PTT 24.8 22.9 - 35.8 09/12/2016 [facility] HEMATOLOGY PT 14.0 12.0 - 14.7 09/12/2016 [facility] HEMATOLOGY INR 1.06 0.85 - 1.17 09/12/2016 [facility] URINE AND STOOL UA Bili Negative *NA* (09/11/16 2:33 PM) Negative 09/11/2016 [facility] URINE AND STOOL UA Spec Grav 1.014 <=1.030 09/11/2016 [facility] URINE AND STOOL UA Protein Negative mg/dL Negative mg/dL 09/11/2016 [facility] URINE AND STOOL UA pH 8.0 [...] Est Negative (09/11/16 2:33 PM) Negative 09/11/2016 [facility] URINE AND STOOL UA RBC 1 0 - 2 09/11/2016 [facility] URINE AND STOOL UA Amorph Ivory Occasional /HPF None Seen /HPF 09/11/2016 [facility] URINE AND STOOL UA Urobilinogen <=1.0 mg/dL 0.1 - 1.0 09/11/2016 [facility] URINE AND STOOL UA Turbidity Slight *ABN* (09/11/16 2:33 PM) Clear 09/11/2016 [facility] URINE AND STOOL UA Color Yellow *NA* (09/11/16 2:33 PM) Yellow 09/11/2016 [facility] CHEM PANEL Phosphorus 3.3 2.5 - 4.5 09/10/2016 [facility] HEMATOLOGY Basophils # 0.1 0.0 - 0.2 09/10/2016 [facility] CHEM PANEL BUN 9 7 - 22 09/07/2016 [facility] CHEM PANEL Glucose Lvl 100 70 - 99 09/07/2016 [facility] CHEM PANEL eGFR 161 09/07/2016 Result Comment: [...] should be multiplied by the estimated BMI. [facility] CHEM PANEL AGAP 9.8 10.0 - 20.0 09/07/2016 [facility] CHEM PANEL Calcium Lvl 8.6 8.5 - 10.5 09/07/2016 [facility] CHEM PANEL CO2 28 24 - 32 09/07/2016 [facility] CHEM PANEL Chloride Lvl 103 95 - 109 09/07/2016 [facility] CHEM PANEL Sodium Lvl 137 135 - 145 09/07/2016 [facility] CHEM PANEL Creatinine Lvl 0.21 0.50 - 1.40 09/07/2016 [facility] CHEM PANEL Potassium Lvl 3.8 3.5 - 5.1 09/07/2016 [facility] CHEM PANEL Magnesium Lvl 1.9 1.8 - 2.4 09/07/2016 [facility] CHEM PANEL Magnesium Lvl 1.7 1.8 - 2.4 09/06/2016 [facility] CHEM PANEL Lipase Lvl 246 73 - 393 09/06/2016 [facility] ELECTROLYTES AGAP 14.8 10.0 - 20.0 09/06/2016 [facility] ELECTROLYTES eGFR 169 09/06/2016 Result Comment: The [...] should be multiplied by the estimated BMI. [facility] ELECTROLYTES Calcium Lvl 9.6 8.5 - 10.5 09/06/2016 [facility] ELECTROLYTES Glucose Lvl 84 70 - 99 09/06/2016 [facility] ELECTROLYTES BUN 11 7 - 22 09/06/2016 [facility] ELECTROLYTES Sodium Lvl 138 135 - 145 09/06/2016 [facility] ELECTROLYTES Creatinine Lvl 0.18 0.50 - 1.40 09/06/2016 [facility] ELECTROLYTES Potassium Lvl 3.8 3.5 - 5.1 09/06/2016 [facility] ELECTROLYTES Chloride Lvl 100 95 - 109 09/06/2016 [facility] ELECTROLYTES CO2 27 24 - 32 09/06/2016 [facility] HEMATOLOGY WBC 4.7 3.7 - 10.4 09/06/2016 [facility] HEMATOLOGY RBC 3.60 4.20 - 5.40 09/06/2016 [facility] HEMATOLOGY MCHC 33.8 32.0 - 36.0 09/06/2016 [facility] HEMATOLOGY MCH 29.7 27.0 - 31.0 09/06/2016 [facility] HEMATOLOGY MCV 87.9 80.0 - 98.0 09/06/2016 [facility] HEMATOLOGY Hct 31.7 36.0 - 48.0 09/06/2016 [facility] HEMATOLOGY Hgb 10.7 12.0 - 16.0 09/06/2016 [facility] HEMATOLOGY MPV 11.4 7.4 - 10.4 09/06/2016 [facility] HEMATOLOGY Platelet 262 133 - 450 09/06/2016 [facility] HEMATOLOGY RDW 16.4 11.5 - 14.5 09/06/2016 [facility] HEMATOLOGY Eosinophils # 0.3 0.0 - 0.5 09/06/2016 [facility] HEMATOLOGY Monocytes # 0.4 0.0 - 0.8 09/06/2016 [facility] HEMATOLOGY Eosinophils 7.4 0.0 - 4.0 09/06/2016 [facility] HEMATOLOGY Monocytes 9.2 2.0 - 12.0 09/06/2016 [facility] HEMATOLOGY Basophils 0.9 0.0 - 1.0 09/06/2016 [facility] HEMATOLOGY Lymphocytes 31.3 20.0 - 40.0 09/06/2016 [facility] HEMATOLOGY Segs 51.2 45.0 - 75.0 09/06/2016 [facility] HEMATOLOGY Lymphocytes # 1.5 1.0 - 5.5 09/06/2016 [facility] HEMATOLOGY Segs-Bands # 2.4 1.5 - 8.1 09/06/2016 [facility] CHEM PANEL Phosphorus 3.3 2.5 - 4.5 09/05/2016 [facility] CHEM PANEL Magnesium Lvl 1.8 1.8 - 2.4 09/05/2016 [facility] CHEM PANEL Creatinine Lvl 0.19 0.50 - 1.40 09/05/2016 [facility] CHEM PANEL BUN 10 7 - 22 09/05/2016 [facility] CHEM PANEL Glucose Lvl 101 70 - 99 09/05/2016 [facility] CHEM PANEL AGAP 12.0 10.0 - 20.0 09/05/2016 [facility] CHEM PANEL Calcium Lvl 9.2 8.5 - 10.5 09/05/2016 [facility] CHEM PANEL eGFR 166 09/05/2016 Result Comment: [...] should be multiplied by the estimated BMI. [facility] CHEM PANEL Potassium Lvl 4.0 3.5 - 5.1 09/05/2016 [facility] CHEM PANEL Sodium Lvl 136 135 - 145 09/05/2016 [facility] CHEM PANEL CO2 28 24 - 32 09/05/2016 [facility] CHEM PANEL Chloride Lvl 100 95 - 109 09/05/2016 [facility] CHEM PANEL Phosphorus 3.0 2.5 - 4.5 09/04/2016 [facility] CHEM PANEL Phosphorus 2.4 2.5 - 4.5 09/02/2016 [facility] HEMATOLOGY RBC 3.13 4.20 - 5.40 09/02/2016 [facility] HEMATOLOGY WBC 4.2 3.7 - 10.4 09/02/2016 [facility] HEMATOLOGY Hct 28.0 36.0 - 48.0 09/02/2016 [facility] HEMATOLOGY Hgb 9.3 12.0 - 16.0 09/02/2016 [facility] HEMATOLOGY MCH 29.9 27.0 - 31.0 09/02/2016 [facility] HEMATOLOGY Platelet 163 133 - 450 09/02/2016 [facility] HEMATOLOGY RDW 16.6 11.5 - 14.5 09/02/2016 [facility] HEMATOLOGY MCHC 33.4 32.0 - 36.0 09/02/2016 [facility] HEMATOLOGY MPV 12.0 7.4 - 10.4 09/02/2016 [facility] HEMATOLOGY MCV 89.5 80.0 - 98.0 09/02/2016 [facility] HEMATOLOGY Monocytes # 0.5 0.0 - 0.8 09/02/2016 [facility] HEMATOLOGY Eosinophils # 0.2 0.0 - 0.5 09/02/2016 [facility] HEMATOLOGY Lymphocytes # 1.0 1.0 - 5.5 09/02/2016 [facility] HEMATOLOGY Segs 58.4 45.0 - 75.0 09/02/2016 [facility] HEMATOLOGY Lymphocytes 25.1 20.0 - 40.0 09/02/2016 [facility] HEMATOLOGY Segs-Bands # 2.4 1.5 - 8.1 09/02/2016 [facility] HEMATOLOGY Basophils 0.9 0.0 - 1.0 09/02/2016 [facility] HEMATOLOGY Eosinophils 4.6 0.0 - 4.0 09/02/2016 [facility] HEMATOLOGY Monocytes 11.0 2.0 - 12.0 09/02/2016 [facility] TOXICOLOGY Vanco Tr TND 0830 09/01/2016 [facility] TOXICOLOGY Vanco Tr 15.4 09/01/2016 [facility] CHEM PANEL Total Protein 7.0 6.4 - 8.4 08/31/2016 [facility] CHEM PANEL ALT 17 0 - 65 08/31/2016 [facility] CHEM PANEL Albumin Lvl 2.1 3.5 - 5.0 08/31/2016 [facility] CHEM PANEL A/G Ratio 0.4 0.7 - 1.6 08/31/2016 [facility] CHEM PANEL Globulin 4.9 2.7 - 4.2 08/31/2016 [facility] CHEM PANEL B/C Ratio 28 6 - 25 08/31/2016 [facility] CHEM PANEL Alk Phos 177 39 - 136 08/31/2016 [facility] CHEM PANEL AST 17 0 - 37 08/31/2016 [facility] CHEM PANEL Bili Total 0.3 0.2 - 1.3 08/31/2016 [facility] HEMATOLOGY Platelet 141 133 - 450 08/31/2016 [facility] HEMATOLOGY RDW 16.4 11.5 - 14.5 08/31/2016 [facility] HEMATOLOGY MPV 11.8 7.4 - 10.4 08/31/2016 [facility] HEMATOLOGY Hct 27.7 36.0 - 48.0 08/31/2016 [facility] HEMATOLOGY Hgb 9.1 12.0 - 16.0 08/31/2016 [facility] HEMATOLOGY MCV 88.8 80.0 - 98.0 08/31/2016 [facility] HEMATOLOGY RBC 3.12 4.20 - 5.40 08/31/2016 [facility] HEMATOLOGY MCH 29.3 27.0 - 31.0 08/31/2016 [facility] HEMATOLOGY MCHC 33.0 32.0 - 36.0 08/31/2016 [facility] HEMATOLOGY WBC 4.7 3.7 - 10.4 08/31/2016 [facility] HEMATOLOGY Monocytes # 0.4 0.0 - 0.8 08/31/2016 [facility] HEMATOLOGY Eosinophils # 0.1 0.0 - 0.5 08/31/2016 [facility] HEMATOLOGY Lymphocytes # 0.9 1.0 - 5.5 08/31/2016 [facility] HEMATOLOGY Segs-Bands # 3.2 1.5 - 8.1 08/31/2016 [facility] HEMATOLOGY Eosinophils 2.9 0.0 - 4.0 08/31/2016 [facility] HEMATOLOGY Monocytes 9.6 2.0 - 12.0 08/31/2016 [facility] HEMATOLOGY Basophils 0.7 0.0 - 1.0 08/31/2016 [facility] HEMATOLOGY Lymphocytes 19.4 20.0 - 40.0 08/31/2016 [facility] HEMATOLOGY Segs 67.4 45.0 - 75.0 08/31/2016 [facility] TOXICOLOGY Vanco Tr TND 1630 08/28/2016 [facility] TOXICOLOGY Vanco Tr 15.4 08/28/2016 [facility] MOLECULAR DIAGNOSTIC C difficile DNA Negative (08/28/16 10:45 AM) Negative 08/28/2016 [facility] URINE CHEM U Chloride 96 08/26/2016 [facility] URINE CHEM U Potassium 13.8 08/26/2016 [facility] URINE CHEM U Sodium 83 08/26/2016 [facility] ELECTROLYTES Potassium WB 3.0 3.5 - 5.1 08/25/2016 Result Comment: CRITICAL RESULT CALLED TO ARPAN DOSS AT 08/25/2016 16:13 BY SXP. READ BACK OK. [facility] TOXICOLOGY Vanco Tr 16.8 08/25/2016 [facility] TOXICOLOGY Vanco Tr TND 0830 08/25/2016 [facility] TUMOR MARKERS CA 125 62.9 0.0 - 35.0 08/25/2016 [facility] URINE CHEM U Preg Negative (08/25/16 12:39 AM) Negative 08/25/2016 [facility] CHEM PANEL Albumin Lvl 2.7 3.5 - 5.0 08/24/2016 [facility] CHEM PANEL Alk Phos 202 39 - 136 08/24/2016 [facility] CHEM PANEL Bili Total 0.5 0.2 - 1.3 08/24/2016 [facility] CHEM PANEL Globulin 5.5 2.7 - 4.2 08/24/2016 [facility] CHEM PANEL A/G Ratio 0.5 0.7 - 1.6 08/24/2016 [facility] CHEM PANEL ALT 14 0 - 65 08/24/2016 [facility] CHEM PANEL AST 20 0 - 37 08/24/2016 [facility] CHEM PANEL Total Protein 8.2 6.4 - 8.4 08/24/2016 [facility] CHEM PANEL B/C Ratio 26 6 - 25 08/24/2016 [facility] HEMATOLOGY INR 1.26 0.85 - 1.17 08/24/2016 [facility] HEMATOLOGY PT 16.1 12.0 - 14.7 08/24/2016 [facility] HEMATOLOGY PTT 32.8 22.9 - 35.8 08/24/2016 [facility] CHEM PANEL eGFR 158 08/23/2016 Result Comment: [...] should be multiplied by the estimated BMI. [facility] CHEM PANEL Calcium Lvl 8.1 8.5 - 10.5 08/23/2016 [facility] CHEM PANEL CO2 32 24 - 32 08/23/2016 [facility] CHEM PANEL AGAP 8.7 10.0 - 20.0 08/23/2016 [facility] CHEM PANEL Sodium Lvl 141 135 - 145 08/23/2016 [facility] CHEM PANEL Chloride Lvl 103 95 - 109 08/23/2016 [facility] CHEM PANEL Potassium Lvl 2.7 3.5 - 5.1 08/23/2016 Result Comment: Critical Result(s) called to joaquín benitez at 08/23/2016 05:00 by lgb. Read back OK. [facility] CHEM PANEL Glucose Lvl 161 70 - 99 08/23/2016 [facility] CHEM PANEL BUN 6 7 - 22 08/23/2016 [facility] CHEM PANEL Creatinine Lvl 0.22 0.50 - 1.40 08/23/2016 [facility] CHEM PANEL Magnesium Lvl 1.5 1.8 - 2.4 08/23/2016 [facility] CHEM PANEL Phosphorus 1.9 2.5 - 4.5 08/23/2016 [facility] HEMATOLOGY MPV 10.7 7.4 - 10.4 08/23/2016 [facility] MCV 89.4 80.0 - 98.0 08/23/2016 [facility] Hgb 10.2 12.0 - 16.0 08/23/2016 [facility] HEMATOLOGY RBC 3.44 4.20 - 5.40 08/23/2016 [facility] HEMATOLOGY WBC 6.3 3.7 - 10.4 08/23/2016 [facility] HEMATOLOGY Hct 30.7 36.0 - 48.0 08/23/2016 [facility] HEMATOLOGY RDW 16.4 11.5 - 14.5 08/23/2016 [facility] MCHC 33.1 32.0 - 36.0 08/23/2016 [facility] MCH 29.6 27.0 - 31.0 08/23/2016 [facility] Platelet 263 133 - 450 08/23/2016 [facility] HEMATOLOGY Segs-Bands # 4.3 1.5 - 8.1 08/23/2016 [facility] HEMATOLOGY Lymphocytes # 1.2 1.0 - 5.5 08/23/2016 [facility] HEMATOLOGY Basophils 0.5 0.0 - 1.0 08/23/2016 [facility] HEMATOLOGY Eosinophils # 0.1 0.0 - 0.5 08/23/2016 [facility] HEMATOLOGY Monocytes # 0.6 0.0 - 0.8 08/23/2016 [facility] HEMATOLOGY Segs 68.4 45.0 - 75.0 08/23/2016 [facility] HEMATOLOGY Lymphocytes 19.1 20.0 - 40.0 08/23/2016 [facility] HEMATOLOGY Eosinophils 2.1 0.0 - 4.0 08/23/2016 [facility] HEMATOLOGY Monocytes 9.9 2.0 - 12.0 08/23/2016 [facility] ELECTROLYTES Potassium Lvl 2.5 3.5 - 5.1 08/22/2016 Result Comment: Critical Result(s) called to Edison Dahl at 08/22/2016 15:34 by ka. Read back OK. [facility] TOXICOLOGY Vanco Tr TND 10:00 08/22/2016 [facility] TOXICOLOGY Vanco Tr 14.0 08/22/2016 [facility] ELECTROLYTES Potassium Lvl 1.8 3.5 - 5.1 08/22/2016 Result Comment: Critical Result(s) called to Yonas Pompa at 08/22/2016 07:56 by TT. Read back OK. [facility] CHEM PANEL eGFR 166 08/22/2016 Result [...] HEMATOLOGY Hct 30.7 36.0 - 48.0 08/22/2016 [facility] HEMATOLOGY Hgb 10.3 12.0 - 16.0 08/22/2016 [facility] HEMATOLOGY RDW 16.5 11.5 - 14.5 08/22/2016 [facility] HEMATOLOGY MCHC 33.4 32.0 - 36.0 08/22/2016 [facility] HEMATOLOGY Platelet 282 133 - 450 08/22/2016 [facility] HEMATOLOGY MPV 10.4 7.4 - 10.4 08/22/2016 [facility] HEMATOLOGY RBC 3.43 4.20 - 5.40 08/22/2016 [facility] HEMATOLOGY WBC 6.3 3.7 - 10.4 08/22/2016 [facility] HEMATOLOGY MCH 29.9 27.0 - 31.0 08/22/2016 [facility] CARDIAC ENZYMES BNP 177 <=100 pg/mL 08/20/2016 [facility] TOXICOLOGY Vanco Tr TND 0900 08/20/2016 [facility] TOXICOLOGY Vanco Tr 12.6 08/20/2016 [facility] CHEM PANEL eGFR 179 08/20/2016 Result [...] should be multiplied by the estimated BMI. [facility] CHEM PANEL Sodium Lvl 138 135 - 145 08/20/2016 [facility] CHEM PANEL Creatinine Lvl <0.15 0.50 - 1.40 08/20/2016 [facility] CHEM PANEL A/G Ratio 0.6 0.7 - 1.6 08/20/2016 [facility] CHEM PANEL Alk Phos 300 39 - 136 08/20/2016 [facility] CHEM PANEL AST 15 0 - 37 08/20/2016 [facility] CHEM PANEL Bili Total 0.4 0.2 - 1.3 08/20/2016 [facility] CHEM PANEL ALT 12 0 - 65 08/20/2016 [facility] CHEM PANEL Total Protein 8.0 6.4 - 8.4 08/20/2016 [facility] CHEM PANEL Globulin 5.0 2.7 - 4.2 08/20/2016 [facility] CHEM PANEL Albumin Lvl 3.0 3.5 - 5.0 08/20/2016 [facility] CHEM PANEL B/C Ratio See Note 4 (08/20/16 5:50 AM) 6 - 25 08/20/2016 Result Comment: Unable to calculate due to Creatinine <0.15 on 08/20/2016 06:18 by Estuardo. [facility] CHEM PANEL Chloride Lvl 101 95 - 109 08/20/2016 [facility] CHEM PANEL Glucose Lvl 112 70 - 99 08/20/2016 [facility] CHEM PANEL BUN 5 7 - 22 08/20/2016 [facility] CHEM PANEL AGAP 13.5 10.0 - 20.0 08/20/2016 [facility] CHEM PANEL Calcium Lvl 8.6 8.5 - 10.5 08/20/2016 [facility] CHEM PANEL CO2 27 24 - 32 08/20/2016 [facility] HEMATOLOGY MPV 10.2 7.4 - 10.4 08/20/2016 [facility] HEMATOLOGY Platelet 322 133 - 450 08/20/2016 [facility] HEMATOLOGY RDW 16.8 11.5 - 14.5 08/20/2016 [facility] HEMATOLOGY MCHC 32.8 32.0 - 36.0 08/20/2016 [facility] HEMATOLOGY MCH 29.6 27.0 - 31.0 08/20/2016 [facility] HEMATOLOGY MCV 90.3 80.0 - 98.0 08/20/2016 [facility] HEMATOLOGY Hct 31.4 36.0 - 48.0 08/20/2016 [facility] HEMATOLOGY Hgb 10.3 12.0 - 16.0 08/20/2016 [facility] HEMATOLOGY RBC 3.48 4.20 - 5.40 08/20/2016 [facility] HEMATOLOGY WBC 4.8 3.7 - 10.4 08/20/2016 [facility] HEMATOLOGY Basophils 0.9 0.0 - 1.0 08/20/2016 [facility] HEMATOLOGY Eosinophils 2.2 0.0 - 4.0 08/20/2016 [facility] HEMATOLOGY Monocytes 10.3 2.0 - 12.0 08/20/2016 [facility] HEMATOLOGY Lymphocytes 24.0 20.0 - 40.0 08/20/2016 [facility] HEMATOLOGY Segs 62.6 45.0 - 75.0 08/20/2016 [facility] HEMATOLOGY Eosinophils # 0.1 0.0 - 0.5 08/20/2016 [facility] HEMATOLOGY Monocytes # 0.5 0.0 - 0.8 08/20/2016 [facility] HEMATOLOGY Lymphocytes # 1.1 1.0 - 5.5 08/20/2016 [facility] HEMATOLOGY Segs-Bands # 3.0 1.5 - 8.1 08/20/2016 [facility] IMMUNOLOGY Prealbumin 4.5 18.0 - 45.0 08/20/2016 [facility] CHEM PANEL Magnesium Lvl 1.7 1.8 - 2.4 08/20/2016 [facility] HEMATOLOGY INR 1.11 0.85 - 1.17 08/20/2016 [facility] HEMATOLOGY PT 14.5 12.0 - 14.7 08/20/2016 [facility] TOXICOLOGY Vanco Tr TND tbd 08/20/2016 [facility] TOXICOLOGY Vanco Tr 18.1 08/20/2016 [facility] CHEM PANEL B/C Ratio See Note (08/19/16 5:54 AM) 6 - 25 08/19/2016 [facility] CHEM PANEL AST 16 0 - 37 08/19/2016 [facility] CHEM PANEL ALT 12 0 - 65 08/19/2016 [facility] CHEM PANEL A/G Ratio 0.5 0.7 - 1.6 08/19/2016 [facility] CHEM PANEL Albumin Lvl 3.0 3.5 - 5.0 08/19/2016 [facility] CHEM PANEL Globulin 5.8 2.7 - 4.2 08/19/2016 [facility] CHEM PANEL Total Protein 8.8 6.4 - 8.4 08/19/2016 [facility] CHEM PANEL Alk Phos 358 39 - 136 08/19/2016 [facility] CHEM PANEL Bili Total 0.5 0.2 - 1.3 08/19/2016 [facility] CHEM PANEL Magnesium Lvl 1.8 1.8 - 2.4 08/19/2016 [facility] TOXICOLOGY Vanco Tr TND [id number] 08/17/2016 [facility] TOXICOLOGY Vanco Tr 9.4 08/17/2016 [facility] ANEMIA STUDY Ferritin Lvl 318 5 - 204 08/17/2016 [facility] CHEM PANEL Lipase Lvl 277 73 - 393 08/17/2016 [facility] CHEM PANEL eGFR 163 08/17/2016 Result Comment: [...] should be multiplied by the estimated BMI. [facility] CHEM PANEL Glucose Lvl 87 70 - 99 08/17/2016 [facility] CHEM PANEL Creatinine Lvl 0.20 0.50 - 1.40 08/17/2016 [facility] CHEM PANEL BUN 7 7 - 22 08/17/2016 [facility] CHEM PANEL Sodium Lvl 136 135 - 145 08/17/2016 [facility] CHEM PANEL CO2 24 24 - 32 08/17/2016 [facility] CHEM PANEL Calcium Lvl 8.5 8.5 - 10.5 08/17/2016 [facility] CHEM PANEL Potassium Lvl 3.9 3.5 - 5.1 08/17/2016 [facility] CHEM PANEL Chloride Lvl 99 95 - 109 08/17/2016 [facility] CHEM PANEL AGAP 16.9 10.0 - 20.0 08/17/2016 [facility] CHEM PANEL Phosphorus 2.6 2.5 - 4.5 08/17/2016 [facility] CHEM PANEL Magnesium Lvl 1.9 1.8 - 2.4 08/17/2016 [facility] CHEM PANEL Albumin Lvl 3.2 3.5 - 5.0 08/17/2016 [facility] ELECTROLYTES CO2 29 24 - 32 08/17/2016 [facility] ELECTROLYTES Chloride Lvl 97 95 - 109 08/17/2016 [facility] ELECTROLYTES Calcium Lvl 9.3 8.5 - 10.5 08/17/2016 [facility] ELECTROLYTES eGFR 163 08/17/2016 Result Comment: The [...] should be multiplied by the estimated BMI. [facility] ELECTROLYTES Creatinine Lvl 0.20 0.50 - 1.40 08/17/2016 [facility] ELECTROLYTES Glucose Lvl 90 70 - 99 08/17/2016 [facility] ELECTROLYTES BUN 8 7 - 22 08/17/2016 [facility] ELECTROLYTES Potassium Lvl 3.9 3.5 - 5.1 08/17/2016 [facility] ELECTROLYTES Sodium Lvl 134 135 - 145 08/17/2016 [facility] ELECTROLYTES AGAP 11.9 10.0 - 20.0 08/17/2016 [facility] MCHC 33.4 32.0 - 36.0 08/17/2016 [facility] MCH 30.1 27.0 - 31.0 08/17/2016 [facility] RDW 16.9 11.5 - 14.5 08/17/2016 [facility] RBC 3.19 4.20 - 5.40 08/17/2016 [facility] WBC 5.5 3.7 - 10.4 08/17/2016 [facility] MPV 11.6 7.4 - 10.4 08/17/2016 [facility] Platelet 283 133 - 450 08/17/2016 [facility] Hgb 9.6 12.0 - 16.0 08/17/2016 [facility] HEMATOLOGY MCV 89.9 80.0 - 98.0 08/17/2016 [facility] Hct 28.7 36.0 - 48.0 08/17/2016 [facility] HEMATOLOGY Basophils 0.7 0.0 - 1.0 08/17/2016 [facility] Segs 59.7 45.0 - 75.0 08/17/2016 [facility] HEMATOLOGY Eosinophils 3.5 0.0 - 4.0 08/17/2016 [facility] HEMATOLOGY Monocytes 9.6 2.0 - 12.0 08/17/2016 [facility] HEMATOLOGY Lymphocytes 26.5 20.0 - 40.0 08/17/2016 [facility] HEMATOLOGY Segs-Bands # 3.3 1.5 - 8.1 08/17/2016 [facility] HEMATOLOGY Eosinophils # 0.2 0.0 - 0.5 08/17/2016 [facility] HEMATOLOGY Monocytes # 0.5 0.0 - 0.8 08/17/2016 [facility] [place] Lymphocytes # 1.5 1.0 - 5.5 08/17/2016 [facility] HEMATOLOGY PT 14.8 12.0 - 14.7 08/17/2016 [facility] HEMATOLOGY INR 1.14 0.85 - 1.17 08/17/2016 [facility] IMMUNOLOGY Prealbumin 5.3 18.0 - 45.0 08/17/2016 [facility] PARATHYROID PROFILE Ca Norm WB 1.20 1.05 - 1.25 08/17/2016 [facility] PARATHYROID PROFILE Ca Ion WB 1.19 1.05 - 1.25 08/17/2016 [facility] CHEM PANEL Magnesium Lvl 1.8 1.8 - 2.4 08/16/2016 [facility] CHEM PANEL Phosphorus 3.2 2.5 - 4.5 08/16/2016 [facility] CHEM PANEL eGFR 163 08/16/2016 Result Comment: [...] should be multiplied by the estimated BMI. [facility] CHEM PANEL AGAP 12.2 10.0 - 20.0 08/16/2016 [facility] CHEM PANEL CO2 28 24 - 32 08/16/2016 [facility] CHEM PANEL Calcium Lvl 9.2 8.5 - 10.5 08/16/2016 [facility] CHEM PANEL Chloride Lvl 98 95 - 109 08/16/2016 [facility] CHEM PANEL Potassium Lvl 3.2 3.5 - 5.1 08/16/2016 [facility] CHEM PANEL Sodium Lvl 135 135 - 145 08/16/2016 [facility] CHEM PANEL Glucose Lvl 130 70 - 99 08/16/2016 [facility] CHEM PANEL Creatinine Lvl 0.20 0.50 - 1.40 08/16/2016 [facility] CHEM PANEL BUN 9 7 - 22 08/16/2016 [facility] TOXICOLOGY Vanco Tr 5.2 08/16/2016 [facility] TOXICOLOGY Vanco Tr TND [id number] 08/16/2016 [facility] CHEM PANEL B/C Ratio 50 6 - 25 08/15/2016 [facility] CHEM PANEL Globulin 4.4 2.7 - 4.2 08/15/2016 [facility] CHEM PANEL A/G Ratio 0.9 0.7 - 1.6 08/15/2016 [facility] CHEM PANEL AST 57 0 - 37 08/15/2016 [facility] CHEM PANEL Bili Total 0.4 0.2 - 1.3 08/15/2016 [facility] CHEM PANEL Total Protein 8.2 6.4 - 8.4 08/15/2016 [facility] CHEM PANEL Albumin Lvl 3.8 3.5 - 5.0 08/15/2016 [facility] CHEM PANEL Alk Phos 666 39 - 136 08/15/2016 [facility] CHEM PANEL ALT 24 0 - 65 08/15/2016 [facility] CHEM PANEL Magnesium Lvl 1.8 1.8 - 2.4 08/15/2016 [facility] CHEM PANEL Phosphorus 1.9 2.5 - 4.5 08/15/2016 [facility] HEMATOLOGY Basophils # 0.0 0.0 - 0.2 08/15/2016 [facility] HEMATOLOGY Eosinophils # 0.3 0.0 - 0.5 08/15/2016 [facility] HEMATOLOGY Lymphocytes # 1.6 1.0 - 5.5 08/15/2016 [facility] HEMATOLOGY Monocytes # 0.7 0.0 - 0.8 08/15/2016 [facility] HEMATOLOGY Monocytes 9.9 2.0 - 12.0 08/15/2016 [facility] HEMATOLOGY Lymphocytes 22.0 20.0 - 40.0 08/15/2016 [facility] HEMATOLOGY Eosinophils 4.1 0.0 - 4.0 08/15/2016 [facility] HEMATOLOGY Segs-Bands # 4.6 1.5 - 8.1 08/15/2016 [facility] HEMATOLOGY Basophils 0.7 0.0 - 1.0 08/15/2016 [facility] Segs 63.3 45.0 - 75.0 08/15/2016 [facility] Plt Morph Normal (08/15/16 4:55 AM) 08/15/2016 [facility] RBC Morph Normal (08/15/16 4:55 AM) 08/15/2016 [facility] MPV 12.8 7.4 - 10.4 08/15/2016 [facility] RDW 16.9 11.5 - 14.5 08/15/2016 [facility] Platelet 261 133 - 450 08/15/2016 [facility] Hct 28.6 36.0 - 48.0 08/15/2016 [facility] MCV 91.0 80.0 - 98.0 08/15/2016 [facility] MCH 29.5 27.0 - 31.0 08/15/2016 [facility] MCHC 32.5 32.0 - 36.0 08/15/2016 [facility] Hgb 9.3 12.0 - 16.0 08/15/2016 [facility] RBC 3.14 4.20 - 5.40 08/15/2016 [facility] WBC 7.2 3.7 - 10.4 08/15/2016 [facility] PARATHYROID PROFILE Ca Norm WB 1.13 1.05 - 1.25 08/15/2016 [facility] PARATHYROID PROFILE Ca Ion WB 1.10 1.05 - 1.25 08/15/2016 [facility] MCV 89.0 80.0 - 98.0 08/14/2016 [facility] Hct 28.5 36.0 - 48.0 08/14/2016 [facility] Hgb 9.4 12.0 - 16.0 08/14/2016 [facility] RBC 3.21 4.20 - 5.40 08/14/2016 [facility] MCHC 32.9 32.0 - 36.0 08/14/2016 [facility] Platelet 261 133 - 450 08/14/2016 [facility] RDW 16.7 11.5 - 14.5 08/14/2016 [facility] MCH 29.3 27.0 - 31.0 08/14/2016 [facility] HEMATOLOGY WBC 7.1 3.7 - 10.4 08/14/2016 [facility] HEMATOLOGY MPV 12.1 7.4 - 10.4 08/14/2016 [facility] TOXICOLOGY Vanco Tr TND [id number] 08/14/2016 [facility] TOXICOLOGY Vanco Tr 2.7 08/14/2016 [facility] CHEM PANEL A/G Ratio 0.6 0.7 - 1.6 08/14/2016 [facility] CHEM PANEL B/C Ratio 40 6 - 25 08/14/2016 [facility] CHEM PANEL Globulin 4.9 2.7 - 4.2 08/14/2016 [facility] CHEM PANEL AST 27 0 - 37 08/14/2016 [facility] CHEM PANEL Total Protein 8.0 6.4 - 8.4 08/14/2016 [facility] CHEM PANEL ALT 19 0 - 65 08/14/2016 [facility] CHEM PANEL Albumin Lvl 3.1 3.5 - 5.0 08/14/2016 [facility] CHEM PANEL Bili Total 0.5 0.2 - 1.3 08/14/2016 [facility] CHEM PANEL Alk Phos 594 39 - 136 08/14/2016 [facility] PARATHYROID PROFILE Ca Norm WB 1.15 1.05 - 1.25 08/14/2016 [facility] PARATHYROID PROFILE Ca Ion WB 1.11 1.05 - 1.25 08/14/2016 [facility] CHEM PANEL Alk Phos 424 39 - 136 08/13/2016 [facility] CHEM PANEL Bili Total 0.7 0.2 - 1.3 08/13/2016 [facility] CHEM PANEL Total Protein 7.6 6.4 - 8.4 08/13/2016 [facility] CHEM PANEL B/C Ratio 40 6 - 25 08/13/2016 [facility] CHEM PANEL ALT 17 0 - 65 08/13/2016 [facility] CHEM PANEL AST 26 0 - 37 08/13/2016 [facility] CHEM PANEL Globulin 4.7 2.7 - 4.2 08/13/2016 [facility] CHEM PANEL A/G Ratio 0.6 0.7 - 1.6 08/13/2016 [facility] HEMATOLOGY Segs 74.5 45.0 - 75.0 08/11/2016 [facility] HEMATOLOGY Monocytes # 0.6 0.0 - 0.8 08/11/2016 [facility] HEMATOLOGY Lymphocytes # 1.0 1.0 - 5.5 08/11/2016 [facility] HEMATOLOGY Segs-Bands # 5.0 1.5 - 8.1 08/11/2016 [facility] HEMATOLOGY Basophils 0.7 0.0 - 1.0 08/11/2016 [facility] HEMATOLOGY Eosinophils 0.6 0.0 - 4.0 08/11/2016 [facility] HEMATOLOGY Monocytes 9.3 2.0 - 12.0 08/11/2016 [facility] HEMATOLOGY Lymphocytes 14.9 20.0 - 40.0 08/11/2016 [facility] HEMATOLOGY Basophils # 0.0 0.0 - 0.2 08/09/2016 [facility] HEMATOLOGY RBC Morph Normal (08/09/16 6:11 AM) 08/09/2016 [facility] HEMATOLOGY Plt Morph Normal (08/09/16 6:11 AM) 08/09/2016 [facility] Eosinophils # 0.1 0.0 - 0.5 08/09/2016 [facility] CHEM PANEL Lipase Lvl 760 73 - 393 08/08/2016 [facility] BODY FLUIDS Lipase BF >74033 08/07/2016 [facility] BODY FLUIDS Lipase BF Type Paracen (08/07/16 1:29 PM) 08/07/2016 [facility] HEMATOLOGY PT 17.2 12.0 - 14.7 08/07/2016 [facility] HEMATOLOGY INR 1.38 0.85 - 1.17 08/07/2016 [facility] PTT 33.6 22.9 - 35.8 08/07/2016 [facility] CHEM PANEL Lipase Lvl 716 73 - 393 08/07/2016 [facility] BODY FLUIDS Lipase BF >12864 08/06/2016 [facility] BODY FLUIDS Lipase BF Type OTHER (08/06/16 4:43 PM) 08/06/2016 [facility] BODY FLUIDS Amylase BF Cyst >[id number] 08/06/2016 Result Comment: [place] [id number] [facility] TUMOR MARKERS CEA 1.5 0.0 - 3.0 08/06/2016 [facility] CHEM PANEL Bili Direct 0.1 0.0 - 0.3 08/06/2016 [facility] IMMUNOLOGY Prealbumin 8.1 18.0 - 45.0 08/06/2016 [facility] LIPIDS Trig 47 <=149 mg/dL 08/06/2016 [facility] CHEM PANEL Bili Indirect 0.2 0.0 - 1.0 08/02/2016 [facility] CHEM PANEL Bili Direct 0.1 0.0 - 0.3 08/02/2016 [facility] CHEM PANEL Lactic Acid Lvl 1.1 0.5 - 2.2 08/02/2016 [facility] CHEM PANEL Bili Indirect 0.2 0.0 - 1.0 07/30/2016 [facility] CHEM PANEL Bili Direct 0.1 0.0 - 0.3 07/30/2016 [facility] IMMUNOLOGY Prealbumin 4.1 18.0 - 45.0 07/30/2016 [facility] LIPIDS Trig 46 <=149 mg/dL 07/30/2016 [facility] MOLECULAR DIAGNOSTIC C difficile DNA Negative (07/29/16 4:52 AM) Negative 07/29/2016 [facility] HEMATOLOGY Basophils # 0.1 0.0 - 0.2 07/27/2016 [facility] IMMUNOLOGY Hep Bs Ag Negative *NA* (07/26/16 5:43 AM) Negative 07/26/2016 [facility] Hep C Ab Negative *NA* (07/26/16 5:43 AM) 07/26/2016 [facility] Hep B Core IgM Negative *NA* (07/26/16 5:43 AM) Negative 07/26/2016 [facility] Hep A IgM Negative *NA* (07/26/16 5:43 AM) Negative 07/26/2016 [facility] URINE AND STOOL Micro? Performed *NA* (07/23/16 11:31 AM) 07/23/2016 [facility] URINE AND STOOL UA Urobilinogen <=1.0 0.1 - 1.0 07/23/2016 [facility] URINE AND STOOL UA pH 7.0 5.0 - 8.0 07/23/2016 [facility] URINE AND STOOL UA Protein 100 mg/dL Negative mg/dL 07/23/2016 [facility] URINE AND STOOL UA Spec Grav 1.014 <=1.030 07/23/2016 [facility] URINE AND STOOL UA Turbidity Moderate *ABN* (07/23/16 11:31 AM) Clear 07/23/2016 [facility] URINE AND STOOL UA Color Yellow *NA* (07/23/16 11:31 AM) Yellow 07/23/2016 [facility] URINE AND STOOL UA Amorph Ivory Occasional /HPF None Seen /HPF 07/23/2016 [facility] URINE AND STOOL UA Sq Epi Occasional /LPF Few /LPF 07/23/2016 [facility] URINE AND STOOL UA WBC 1 0 - 5 07/23/2016 [facility] URINE AND STOOL UA RBC 20 0 - 2 07/23/2016 [facility] URINE AND STOOL UA Blood Small *ABN* (07/23/16 11:31 AM) Negative 07/23/2016 [facility] URINE AND STOOL UA Nitrite Negative (07/23/16 11:31 AM) Negative 07/23/2016 [facility] URINE AND STOOL UA Bili Negative *NA* (07/23/16 11:31 AM) Negative 07/23/2016 [facility] URINE AND STOOL UA Glucose 150 mg/dL Negative mg/dL 07/23/2016 [facility] URINE AND STOOL UA Ketones Negative mg/dL Negative mg/dL 07/23/2016 [facility] URINE AND STOOL UA Bacteria Occasional /HPF None Seen /HPF 07/23/2016 [facility] URINE AND STOOL UA Leuk Est Trace *ABN* (07/23/16 11:31 AM) Negative 07/23/2016 [facility] CHEM PANEL Bili Indirect 0.4 0.0 - 1.0 07/23/2016 [facility] HEMATOLOGY RBC Morph Normal (07/23/16 5:27 AM) 07/23/2016 [facility] HEMATOLOGY Plt Morph Normal (07/23/16 5:27 AM) 07/23/2016 [facility] LIPIDS Trig 74 <=149 mg/dL 07/23/2016 [facility] HEMATOLOGY Sed Rate 60 0 - 20 07/22/2016 [facility] HEMATOLOGY Sed Rate 52 0 - 20 07/21/2016 [facility] BODY FLUIDS LDH BF 940 07/19/2016 [facility] BODY FLUIDS LDH BF Type Ascites (07/19/16 9:01 AM) 07/19/2016 [facility] BODY FLUIDS WBC BF 188 07/19/2016 [facility] BODY FLUIDS RBC BF 300 07/19/2016 [facility] BODY FLUIDS CellCnt BF Type Ascites (07/19/16 9:01 AM) 07/19/2016 [facility] BODY FLUIDS Color BF Dark Yellow (07/19/16 9:01 AM) Colorless 07/19/2016 [facility] BODY FLUIDS Clarity BF Slight Cloudy (07/19/16 9:01 AM) Clear 07/19/2016 [facility] BODY FLUIDS Segs BF 43 07/19/2016 [facility] BODY FLUIDS Lymph BF 3 07/19/2016 [facility] BODY FLUIDS Macrophage BF 54 07/19/2016 [facility] BODY FLUIDS Albumin BF 2.2 07/19/2016 [facility] BODY FLUIDS Alb BF Type Ascites *NA* (07/19/16 9:01 AM) 07/19/2016 [facility] BLOOD BANK RESULTS Antibody Scrn Negative (07/12/16 11:29 AM) 07/12/2016 [facility] BLOOD BANK RESULTS ABO/Rh O POS 07/12/2016 [facility] BLOOD [facility] RESULTS RBC product Product available (07/12/16 11:12 AM) 07/12/2016 [facility] BLOOD BANK RESULTS RBC product Product available (07/12/16 10:15 AM) 07/12/2016 [facility] MOLECULAR DIAGNOSTIC C difficile DNA Negative (07/08/16 9:16 PM) Negative 07/09/2016 [facility] HEMATOLOGY Anisocyte 1+ *ABN* (07/08/16 11:40 AM) None Seen 07/08/2016 [facility] HEMATOLOGY PTT 31.6 22.9 - 35.8 07/06/2016 [facility] HEMATOLOGY PT 18.8 12.0 - 14.7 07/06/2016 [facility] HEMATOLOGY INR 1.54 0.85 - 1.17 07/06/2016 [facility] SPECIAL CHEMISTRY Hgb A1C 7.0 <=5.6 % 07/06/2016 [facility] CHEM PANEL Vitamin D, 25-OH, Total <13 30 - 100 07/05/2016 [facility] PARATHYROID PROFILE Ca Norm WB 0.96 1.05 - 1.25 07/05/2016 [facility] PARATHYROID PROFILE Ca Ion WB 0.97 1.05 - 1.25 07/05/2016 [facility] CHEM PANEL Lipase Lvl 630 73 - 393 07/05/2016 [facility] CHEM PANEL eGFR 163 07/05/2016 Result [...] Magnesium Lvl 1.6 1.8 - 2.4 07/05/2016 [facility] HEMATOLOGY Hct 29.2 36.0 - 48.0 07/05/2016 [facility] HEMATOLOGY MCH 28.2 27.0 - 31.0 07/05/2016 [facility] HEMATOLOGY MCV 88.4 80.0 - 98.0 07/05/2016 [facility] HEMATOLOGY MCHC 31.8 32.0 - 36.0 07/05/2016 [facility] RDW 23.5 11.5 - 14.5 07/05/2016 [facility] Platelet 169 133 - 450 07/05/2016 [facility] Hgb 9.3 12.0 - 16.0 07/05/2016 [facility] WBC 7.3 3.7 - 10.4 07/05/2016 [facility] RBC 3.31 4.20 - 5.40 07/05/2016 [facility] MPV 9.4 7.4 - 10.4 07/05/2016 [facility] Monocytes 7.7 2.0 - 12.0 07/05/2016 [facility] Lymphocytes 12.6 20.0 - 40.0 07/05/2016 [facility] Segs 78.6 45.0 - 75.0 07/05/2016 [facility] Segs-Bands # 5.7 1.5 - 8.1 07/05/2016 [facility] Eosinophils # 0.1 0.0 - 0.5 07/05/2016 [facility] Monocytes # 0.6 0.0 - 0.8 07/05/2016 [facility] Lymphocytes # 0.9 1.0 - 5.5 07/05/2016 [facility] Eosinophils 0.8 0.0 - 4.0 07/05/2016 [facility] Basophils 0.3 0.0 - 1.0 07/05/2016 [facility] CHEM PANEL eGFR 179 07/03/2016 Result [...] should be multiplied by the estimated BMI. [facility] CHEM PANEL BUN 5 7 - [...] HEMATOLOGY Segs 81.6 45.0 - 75.0 07/03/2016 [facility] HEMATOLOGY MPV 9.2 7.4 - 10.4 07/03/2016 [facility] HEMATOLOGY Platelet 242 133 - 450 07/03/2016 [facility] HEMATOLOGY MCH 28.0 27.0 - 31.0 07/03/2016 [facility] HEMATOLOGY MCV 87.7 80.0 - 98.0 07/03/2016 [facility] HEMATOLOGY Hct 31.5 36.0 - 48.0 07/03/2016 [facility] HEMATOLOGY RBC 3.60 4.20 - 5.40 07/03/2016 [facility] HEMATOLOGY Hgb 10.1 12.0 - 16.0 07/03/2016 [facility] HEMATOLOGY WBC 10.3 3.7 - 10.4 07/03/2016 [facility] HEMATOLOGY RDW 24.1 11.5 - 14.5 07/03/2016 [facility] HEMATOLOGY MCHC 31.9 32.0 - 36.0 07/03/2016 [facility] CARDIAC ENZYMES BNP 267 <=100 pg/mL 07/02/2016 [facility] CHEM PANEL Magnesium Lvl 1.9 1.8 - 2.4 07/02/2016 [facility] CHEM PANEL Magnesium Lvl 1.7 1.8 - 2.4 07/01/2016 [facility] CHEM PANEL Phosphorus 3.1 2.5 - 4.5 07/01/2016 [facility] CHEM PANEL eGFR 175 07/01/2016 Result [...] should be multiplied by the estimated BMI. [facility] CHEM PANEL B/C Ratio 38 6 - 25 07/01/2016 [facility] CHEM PANEL Total Protein 5.4 6.4 [...] PANEL CO2 25 24 - 32 07/01/2016 [facility] CHEM PANEL Creatinine Lvl 0.16 0.50 - 1.40 07/01/2016 [facility] CHEM PANEL Sodium Lvl 133 135 - 145 07/01/2016 [facility] CHEM PANEL Bili Total 0.6 0.2 - 1.3 07/01/2016 [facility] CHEM PANEL Alk Phos 203 39 - 136 07/01/2016 [facility] CHEM PANEL Globulin 4.2 2.7 - 4.2 07/01/2016 [facility] CHEM PANEL A/G Ratio 0.3 0.7 - 1.6 07/01/2016 [facility] CHEM PANEL ALT 9 0 - 65 07/01/2016 [facility] CHEM PANEL AST 21 0 - 37 07/01/2016 [facility] CHEM PANEL Albumin Lvl 1.2 3.5 - 5.0 07/01/2016 [facility] CHEM PANEL Glucose Lvl 128 70 - 99 07/01/2016 [facility] CHEM PANEL BUN 6 7 - 22 07/01/2016 [facility] HEMATOLOGY Platelet 268 133 - 450 07/01/2016 [facility] HEMATOLOGY MPV 10.1 7.4 - 10.4 07/01/2016 [facility] HEMATOLOGY RDW 24.3 11.5 - 14.5 07/01/2016 [facility] HEMATOLOGY MCHC 33.2 32.0 - 36.0 07/01/2016 [facility] HEMATOLOGY Hgb 11.1 12.0 - 16.0 07/01/2016 [facility] HEMATOLOGY RBC 3.89 4.20 - 5.40 07/01/2016 [facility] HEMATOLOGY WBC 17.3 3.7 - 10.4 07/01/2016 [facility] HEMATOLOGY MCH 28.5 27.0 - 31.0 07/01/2016 [facility] HEMATOLOGY MCV 85.8 80.0 - 98.0 07/01/2016 [facility] HEMATOLOGY Hct 33.4 36.0 - 48.0 07/01/2016 [facility] HEMATOLOGY Monocytes # 1.1 0.0 - 0.8 07/01/2016 [facility] HEMATOLOGY Lymphocytes # 1.4 1.0 - 5.5 07/01/2016 [facility] HEMATOLOGY Segs-Bands # 14.7 1.5 - 8.1 07/01/2016 [facility] HEMATOLOGY Basophils 0.1 0.0 - 1.0 07/01/2016 [facility] HEMATOLOGY Eosinophils 0.1 0.0 - 4.0 07/01/2016 [facility] HEMATOLOGY Monocytes 6.5 2.0 - 12.0 07/01/2016 [facility] HEMATOLOGY Lymphocytes 8.2 20.0 - 40.0 07/01/2016 [facility] HEMATOLOGY Segs 85.1 45.0 - 75.0 07/01/2016 [facility] CHEM PANEL Amylase Lvl 191 25 - 115 06/30/2016 [facility] CHEM PANEL Lipase Lvl 943 73 - 393 06/30/2016 [facility] CHEM PANEL B/C Ratio 30 6 - 25 06/30/2016 [facility] URINE CHEM U Preg Negative (06/29/16 1:46 PM) Negative 06/29/2016 [facility] CHEM PANEL Amylase Lvl 170 25 - 115 06/29/2016 [facility] CHEM PANEL Phosphorus 3.0 2.5 - 4.5 06/29/2016 [facility] PARATHYROID PROFILE Ca Norm WB 0.97 1.05 - 1.25 06/29/2016 [facility] PARATHYROID PROFILE Ca Ion WB 0.97 1.05 - 1.25 06/29/2016 [facility] PARATHYROID PROFILE Ca Norm WB 0.94 1.05 - 1.25 06/28/2016 [facility] PARATHYROID PROFILE Ca Ion WB 0.95 1.05 - 1.25 06/28/2016 [facility] HEMATOLOGY Plt Morph Normal (06/27/16 4:40 AM) 06/27/2016 [facility] HEMATOLOGY RBC Morph Normal (06/27/16 4:40 AM) 06/27/2016 [facility] MOLECULAR DIAGNOSTIC C difficile DNA Negative (06/24/16 8:37 PM) Negative 06/25/2016 [facility] URINE AND STOOL Fecal Leukocyte None Seen (06/24/16 8:37 PM) 06/25/2016 [facility] ENDOCRINOLOGY Aldos/Renin Ratio <0.2 0.0 - 30.0 06/22/2016 Result Comment: Units: ng/dL per ng/mL/hr
Performed At: [facility]
[id number] [place], [place] [id number]
Milton Suárez MD Ph:[phone] [facility] ENDOCRINOLOGY Aldosterone <1.0 0.0 - 30.0 06/22/2016 Result Comment:
This test was developed and its performance characteristics
determined by [facility]. It has not been cleared or
approved by the Food and Drug Administration. [facility] ENDOCRINOLOGY Renin Activity 4.74 06/22/2016 Result Comment: Adult Normal Salt
Intake:
Upright 1.31 - 3.95
Supine 0.15 - 2.33

Salt Excretion
(Na mEq/24 hr):
Na=0 - 30 8.82 - 23.86
Na=30 - 75 4.09 - 7.73
Na=75 - 150 1.44 - 2.80
Na=>150 0.39 - 1.31 [facility] ANEMIA STUDY Vitamin B12 Lvl 476 254 - 1320 06/22/2016 [facility] ANEMIA STUDY Folate Lvl 3.8 >=3.0 ng/mL 06/22/2016 [facility] CHEM PANEL Ammonia 39.0 <=45.0 uMol/L 06/22/2016 [facility] HEMATOLOGY Eosinophils # 0.2 0.0 - 0.5 06/19/2016 [facility] CHEM PANEL Amylase Lvl 149 25 - 115 06/18/2016 [facility] LIPIDS Chol <50 <=199 mg/dL 06/18/2016 [facility] LIPIDS Trig 108 <=149 mg/dL 06/18/2016 [facility] LIPIDS HDL 12 >=61 mg/dL 06/18/2016 [facility] LIPIDS CHD Risk <4.17 3.90 - 5.80 06/18/2016 [facility] LIPIDS VLDL 22 06/18/2016 [facility] LIPIDS LDL (Calculated) 16 <=99 mg/dL 06/18/2016 [facility] CHEM PANEL Bili Indirect 0.3 0.0 - 1.0 06/17/2016 [facility] CHEM PANEL Bili Direct 0.5 0.0 - 0.3 06/17/2016 [facility] HEMATOLOGY Plt Morph Clumped (06/17/16 1:16 PM) 06/17/2016 [facility] HEMATOLOGY RBC Morph Normal (06/17/16 1:16 PM) 06/17/2016 [facility] TUMOR MARKERS AFP 3.2 0.0 - 11.0 06/17/2016 [facility] TUMOR MARKERS CA 125 354.0 0.0 - 35.0 06/17/2016 [facility] TUMOR MARKERS CEA 2.1 0.0 - 3.0 06/17/2016 [facility] CARDIAC ENZYMES Troponin-I <0.02 0.00 - 0.40 06/16/2016 [facility] CARDIAC ENZYMES CK MB 1.5 0.5 - 3.6 06/16/2016 [facility] CARDIAC ENZYMES Troponin-I 0.03 0.00 - 0.40 06/16/2016 [facility] CARDIAC ENZYMES CK MB 1.6 0.5 - 3.6 06/16/2016 [facility] CHEM PANEL Procalcitonin Lvl 0.11 0.00 - 0.10 06/16/2016 [facility] IMMUNOLOGY HIV 1/2 Ab Negative *NA* (06/16/16 5:11 AM) Negative 06/16/2016 [facility] BACTERIAL - SEROLOGY MRSA by PCR Negative (06/16/16 4:26 AM) 06/16/2016 [facility] DRUG SCREEN U Kristen Scr Negative *NA* (06/16/16 4:26 AM) Negative 06/16/2016 [facility] DRUG SCREEN U Cocaine Scr Negative *NA* (06/16/16 4:26 AM) Negative 06/16/2016 [facility] DRUG SCREEN U Opiate Scr Positive *ABN* (06/16/16 4:26 AM) Negative 06/16/2016 [facility] DRUG SCREEN U Phencyc Scr Negative *NA* (06/16/16 4:26 AM) Negative 06/16/2016 [facility] DRUG SCREEN U Benzodia Scr Negative *NA* (06/16/16 4:26 AM) Negative 06/16/2016 [facility] DRUG SCREEN U Cannab Scr Negative *NA* (06/16/16 4:26 AM) Negative 06/16/2016 [facility] DRUG SCREEN U Amph Scr Negative *NA* (06/16/16 4:26 AM) Negative 06/16/2016 [facility] DRUG SCREEN UDS Note See Note (06/16/16 4:26 AM) 06/16/2016 [facility] URINE AND STOOL UA Color Ltyellow 06/16/2016 [facility] URINE AND STOOL UA Urobilinogen <=1.0 mg/dL 0.1 - 1.0 06/16/2016 [facility] URINE AND STOOL UA Hyal Cast 5 0 - 2 06/16/2016 [facility] URINE AND STOOL UA RBC 2 0 - 2 06/16/2016 [facility] URINE AND STOOL UA Trans Epi 11 <=0 /LPF 06/16/2016 [facility] URINE AND STOOL UA Leuk Est Large *ABN* (06/16/16 4:26 AM) Negative 06/16/2016 [facility] URINE AND STOOL UA Sq Epi Occasional /LPF Few /LPF 06/16/2016 [facility] URINE AND STOOL UA WBC 79 0 - 5 06/16/2016 [facility] URINE AND STOOL UA Nitrite Negative (06/16/16 4:26 AM) Negative 06/16/2016 [facility] URINE AND STOOL UA Blood Moderate *ABN* (06/16/16 4:26 AM) Negative 06/16/2016 [facility] URINE AND STOOL UA Bili Negative *NA* (06/16/16 4:26 AM) Negative 06/16/2016 [facility] URINE AND STOOL UA Glucose Negative mg/dL Negative mg/dL 06/16/2016 [facility] URINE AND STOOL UA Ketones Negative mg/dL Negative mg/dL 06/16/2016 [facility] URINE AND STOOL UA Protein Negative mg/dL Negative mg/dL 06/16/2016 [facility] URINE AND STOOL UA Spec Grav 1.016 <=1.030 06/16/2016 [facility] URINE AND STOOL UA Turbidity Slight *ABN* (06/16/16 4:26 AM) Clear 06/16/2016 [facility] URINE AND STOOL UA pH 7.0 5.0 - 8.0 06/16/2016 [facility] HEMATOLOGY D-Dimer 4.48 06/16/2016 [facility] CARDIAC ENZYMES Troponin-I 0.03 0.00 - 0.40 06/16/2016 [facility] CARDIAC ENZYMES CK MB 1.3 0.5 - 3.6 06/16/2016 [facility] CARDIAC ENZYMES Total CK 19 12 - 191 06/16/2016 [facility] CARDIAC ENZYMES CK MB Index 6.8 0.0 - 2.5 06/16/2016 [facility] ENDOCRINOLOGY hCG Tot <1 06/16/2016 [facility] HEMATOLOGY Plt Morph Normal (06/15/16 9:26 PM) 06/16/2016 [facility] HEMATOLOGY RBC Morph Normal (06/15/16 9:26 PM) 06/16/2016 [facility] Pathology Reports No Data Provided for [...] Left ureteral stent again seen. 09/04/2018 [facility] 1[facility] DX 1 view chest portable: HISTORY: Chest pain. FINDINGS: Both lungs are clear. The heart and mediastinal contour stable from 03/09/2017. No pleural fluid or pneumothorax. IMPRESSION: No acute finding SL: MATTHEW 10/29/2017 [facility] MRI PANCREAS W/O CONTRAST IMPRESSION:1.Mild intrahepatic [...] left renal pelvis and the distal outside [id number]. *Moderate to severe left hydronephrosis is again [...] renal pelvis and the distal outside the [id number]. * Moderate to severe left hydronephrosis is [...] Joyce Novoa MD, 09/30/2017 3:04 PM 09/30/2017 [facility]/S THYROID/NECK IMPRESSION:Enlarged goiter heterogeneous thyroid with [...] Ha Joseph MD, 09/27/2017 4:31 PM 09/27/2017 [facility] U/S ABDOMEN Addendum by Ha Joseph [...] Queen at 12:20 PM on 09/27/2017. This [facility] radiology report is a preliminary resident dictation until finalized by an attending. Changes to this preliminary report may occur in an additional preliminary or finalized version. Dictated By: Hesham Montaño MD, 09/27/2017 12:28 PM I have reviewed the study and agree with the findings in this report. Signed By: Ha Joseph MD, 09/27/2017 12:32 PM 09/27/2017 [facility] XRAY CHEST 1 VIEW IMPRESSION:No acute [...] April Daniel MD, 09/27/2017 12:33 AM 09/27/2017 [facility] [facility] TRANSVAGINAL IMPRESSION:1.Large central fibroid with [...] Gordon Nunez MD, 09/24/2017 1:34 PM 09/24/2017 [facility]/S PELVIS NON-OB IMPRESSION:1.Large central fibroid with [...] Gordon Nunez MD, 09/24/2017 1:34 PM 09/24/2017 [facility] Abdomen/Pelvis wo IV contrast CT CT [...] identified. 5. Large fibroid uterus. SL:16 03/09/2017 [facility] Pelvis w pelvis doppler US EXAM: [...] largest measuring 6.6 and 5.2 cm. SL: [id number] 03/09/2017 [facility] Chest 1view DX Patient Name: CHIKA BOJORQUEZ : 1975; Age: 41 years Female MR: [id number] Study: Chest 1view DX Order Time: 03/09/2017 [...] of acute pulmonary disease. SL: [id number] 03/09/2017 [facility] Abdomen AP DX Patient Name: CHIKA BOJORQUEZ : 1975; Age: 41 years Female MR: [id number] Study: Abdomen AP DX 12/27/2016 8:18 AM [...] from 09/19/2016. Nonobstructive bowel gas pattern. SL: [id number] 12/27/2016 [facility] Abdomen/Pelvis w IV contrast CT Abdomen/Pelvis [...] change from previous study is noted. SL: [id number] 09/20/2016 [facility] Abscess or cyst drain/aspirate VR Patient Name: CHIKA BOJORQUEZ : 1975; Age: 40 years Female MR: [id number] Study: Abscess or cyst drain/aspirate VR 09/12/2016 2:55 PM DOG BEHAVIORIST PROCEDURE: CT-guided exchange of a right abdominal drainage catheter CLINICAL INFORMATION: Pancreatitis and multiple pseudocysts CONSENT: The procedure, risks, benefits and alternatives were discussed with the patient and written informed consent was obtained. TECHNIQUE: asphalt surface heater operator: Dr. Renteria Preoperative diagnosis: Pancreatitis and [...] existing catheter was then exchanged for a 16-Mexican gastrostomy catheter. At this point, no larger [...] the right lower quadrant drainage catheter. A 16-Mexican gastrostomy tube was placed as that is the largest catheter currently in stock. Patient will likely need aggressive irrigation, TPA administration, and likely further upsizing of the drainage catheter. SL: [id number] 09/13/2016 [facility] Nasogastric tube placement VR Patient Name: CHIKA BOJORQUEZ : 1975; Age: 40 years Female MR: [id number] Study: Nasogastric tube placement VR 09/13/2016 7:22 AM DOG BEHAVIORIST PROCEDURE: Repositioning of the Dobbhoff tube CLINICAL INFORMATION: Nonfunctioning Dobbhoff tube. CONSENT: The procedure, risks, benefits and alternatives were discussed with the patient and written informed consent was obtained. TECHNIQUE: asphalt surface heater operator: Dr. Renteria Preoperative diagnosis: Nonfunctioning Dobbhoff [...] Successful repositioning of the Dobbhoff tube. SL: [id number] 09/13/2016 [facility] Chest 1view DX Study: Chest 1view DX 09/12/2016 8:42 PM DOG BEHAVIORIST Patient Name: CHIKA BOJORQUEZ MR: [id number] : 1975; Age: 40 years y/o Female [...] image would be confirmatory. SL: TPAINTER-PC 09/12/2016 [facility] Endoscopic Retro Pancreatogram ERCP DX Patient Name: CHIKA BOJORQUEZ : 1975; Age: 40 years Female MR: [id number] Study: Endoscopic Retro Pancreatogram ERCP DX 09/12/2016 10:29 AM DOG BEHAVIORIST CLINICAL INDICATION: PANCREATIC DUCT COMPARISON: None FINDINGS: Limited intraoperative fluoroscopic images provided for ERCP. Initial glandular demonstrates a dilated common bile duct possibly related to a distal stricture. The main pancreatic duct was subsequently cannulated followed by stent placement. The Dobbhoff tube also appears to have been removed. SL: [id number] 09/12/2016 [facility] Abdomen/Pelvis wo IV contrast CT EXAM: [...] left hydronephrosis which is now mild. 09/05/2016 [facility] Chest 1 v for Placement DX EXAM: XR CHEST 1 VIEW DATE: 08/29/2016 3:27 PM DOG BEHAVIORIST INDICATION: PICC Line Reposition COMPARISON: 08/23/2016 TECHNIQUE: AP chest IMPRESSION: 1. Left PICC line again seen with tip terminates at the atriocaval junction. Interval unlooping of the feeding tube. 2. Both lungs are clear. Costophrenic recesses are sharp. Cardiomediastinal silhouette within normal limits. No acute osseous abnormalities. 08/29/2016 [facility] Abdomen cyst aspiration w guidance CT STUDY: VIR Fluid Collection Drain Peritoneal STUDY: VIR CT Guidance DATE: 08/27/2016 INDICATION(S): 40-year-old with Pancreatic pseudocyst/pseudocyst abscess in the lower abdomen request is for percutaneous drain placement. PROCEDURE(S) PERFORMED: Successful CT-guided placement of a 14-Mexican biliary type drain into the pancreatic fluid collection. SPARE FIXER: Dr. Colindres HOME SUPERVISOR(S): Mariana Carrizales CONSENT: Written consent obtained after [...] was sequentially dilated using a 10, 12, 14-Mexican dilators. After creating additional hole catheter 14-Mexican drain, it was placed into the site [...] collection is present in the abdomen. A 14-Mexican drain was successfully placed traversing the entire [...] Attending, was present for the procedure. 08/27/2016 [facility] Abdomen AP DX EXAM: XR ABDOMEN 1 FRONTAL VIEW DATE: 08/24/2016 3:45 PM DOG BEHAVIORIST INDICATION: Tube placement/removal/reposition ADDITIONAL INFORMATION: None. COMPARISON: [...] 1. New enteric tube is detailed. 08/24/2016 [facility] ERCP Diagnostic DX EXAM: ERCP Diagnostic DX DATE: 08/24/2016 3:01 PM DOG BEHAVIORIST INDICATION: Bile Duct Stones ADDITIONAL INFORMATION: None. [...] recommend correlation with findings observed by the technical customer support specialist in real-time by performing the pancreaticogram. 3. Dilated main pancreatic duct and side branches in the proximal main pancreatic duct region consistent with chronic pancreatitis change. 08/24/2016 [facility] Abdomen AP DX EXAM: XR ABDOMEN 1 FRONTAL VIEW DATE: 08/24/2016 8:39 AM DOG BEHAVIORIST INDICATION: Tube placement/removal/reposition ADDITIONAL INFORMATION: None. COMPARISON: [...] bowel gas pattern. Moderate stool burden. 08/24/2016 [facility] Chest 1view DX Portable chest: The PICC line tip is in satisfactory position at the cavoatrial junction. The feeding tube tip is in the 2nd portion of the duodenum with the tube coiled in the stomach. The lungs and pleural spaces are clear. There is no other significant change compared to the earlier exam on the same day. [id number] 08/23/2016 [facility] Chest 1view DX Patient Name: CHIKA BOJORQUEZ : 1975; Age: 40 years Female MR: [id number] Study: Chest 1view DX Order Time: 08/23/2016 1:21 PM DOG BEHAVIORIST Clinical Indication: PICC Line Placement. STAT portable [...] line tip in the right atrium. SL: [id number] 08/23/2016 [facility] Abdomen AP DX Patient Name: CHIKA BOJORQUEZ : 1975; Age: 40 years Female MR: [id number] Study: Abdomen AP DX 08/22/2016 4:50 PM DOG BEHAVIORIST. Clinical Indication: Feeding intolerance. COMPARISON: July 2016 [...] 3. Gastric drainage device. 4. Constipation. SL: [id number] 08/22/2016 [facility] Abdomen AP DX Portable chest: The feeding tube is coiled in the stomach with the tip in the 2nd portion of the duodenum, unchanged from the previous day. A left ureteral stent remains in satisfactory position. The ab dominal gas pattern is normal. There is no visible pneumoperitoneum. There is no other significant change. SL DLAWRENCE-PC 08/21/2016 [facility] Chest 1view DX Study: Chest 1view DX 08/20/2016 7:04 PM DOG BEHAVIORIST Patient Name: CHIKA BOJORQUEZ MR: [id number] : 1975; Age: 40 years y/o Female [...] upper limits of normal. SL: TPAINTER-PC 08/20/2016 [facility] Abdomen AP DX Patient Name: CHIKA BOJORQUEZ : 1975; Age: 40 years Female MR: [id number] Study: Abdomen AP DX 08/20/2016 2:52 PM DOG BEHAVIORIST. Clinical Indication: Tube placement/removal/reposition. COMPARISON: None FINDINGS: [...] 2. Inferiorly positioned left ureteral stent. SL: [id number] 08/20/2016 [facility] Abdomen 1 v for Placement DX Patient Name: CHIKA BOJORQUEZ : 1975; Age: 40 years y/o Female MR: [id number] Study: Abdomen 1 v for Placement DX 08/16/2016 2:35 PM DOG BEHAVIORIST Ordering Physician: En Cabello MD Clinical Indication: [...] abnormalities. No mass or abnormal calcifications. SL: [id number] 08/16/2016 [facility] Fluoroscopy assist to 1 hour DX Patient Name: CHIKA BOJORQUEZ : 1975; Age: 40 years y/o Female MR: [id number] Study: Fluoroscopy assist to 1 hour DX 08/16/2016 2:14 PM DOG BEHAVIORIST Ordering Physician: En Cabello MD Clinical Indication: DOBB STEVE PLACEMENT; TUBE PLACMENT FT: 16 SECS DS: 2.33 mGy Comparison: Dobbhoff tube placement 08/08/2016 FINDINGS AND IMPRESSION: Fluoroscopy was provided for Dobbhoff tube placement. SL: [id number] 08/16/2016 [facility] Paracentesis w ultrasound guide VR Paracentesis with Ultrasound Guidance, 08/16/2016 7:00 AM DOG BEHAVIORIST CLINICAL INFORMATION: Pancreatitis; loculated ascites CONSENT: The [...] bottles. The catheter was removed. COMPLICATIONS: None DECOMMISSIONING WELL SITE MANAGER: Dr. Jacome IMPRESSION: Successful ultrasound-guided paracentesis with 1.4 L of cloudy yellow fluid tapped. SL: [id number] 08/16/2016 [facility] Abdomen/Pelvis w IV contrast CT EXAM: CT [...] No bowel obstruction. Advanced generalized osteopenia. SL: [id number] 08/13/2016 [facility] Fluoro guide for Naso/Gastric tube DX Patient Name: CHIKA BOJORQUEZ : 1975; Age: 40 years Female MR: [id number] Study: Fluoro guide for Naso/Gastric tube DX 08/08/2016 1:08 PM DOG BEHAVIORIST Clinical Indication: Fluoro Guidance DOSE: 2.2dGy cm2/ TIME: 0.3 mins. COMPARISON: None FINDINGS: Fluoroscopic guidance was provided to the nurse for advancement of the Dobbhoff tube. The Dobbhoff tube tip is in the mid stomach. The stylet was removed. SL: [id number] 08/08/2016 [facility] Fluoro guide for Naso/Gastric tube DX Fluoro [...] fundus and body of the stomach. SL: [id number] 08/07/2016 [facility] Paracentesis w ultrasound guide VR Paracentesis with Ultrasound Guidance, 08/07/2016 10:55 AM DOG BEHAVIORIST CLINICAL INFORMATION: Pancreatitis; ascites CONSENT: The procedure, [...] bottles. The catheter was removed. COMPLICATIONS: None DECOMMISSIONING WELL SITE MANAGER: Dr. Jacome IMPRESSION: Successful ultrasound-guided paracentesis with 1 L greenish-yellow fluid tapped. However, the fluid is multiloculated/multiseptated. SL: [id number] 08/07/2016 [facility] Abdomen/Pelvis w IV contrast CT EXAM: CT ABDOMEN AND PELVIS WITH CONTRAST DATE: 08/06/2016 5:33 PM DOG BEHAVIORIST INDICATION: Abdominal pain, acute. COMPARISON: 07/27/2016. TECHNIQUE: Helical CT imaging of the abdomen and pelvis performed from lung bases through the lesser trochanters following the administration of intravenous contrast. Axial, sagittal and coronal multiplanar reconstructions provided. IV contrast: [address] Radiation Dose: GZA=221.54 mGy-cm FINDINGS: LOWER CHEST: The lung bases [...] is noted. ADRENALS: Unremarkable KIDNEYS AND URETERS: Dmpg-gd-[id number] left hydronephrosis is visualized, increased from the [...] telephone on 01/04/2017 at 1905 hours. SL: [id number] 08/06/2016 [facility] Abdomen/Pelvis w IV contrast CT Patient Name: CHIKA BOJORQUEZ : 1975; Age: 40 years Female MR: [id number] Study: Abdomen/Pelvis w IV contrast CT 07/27/2016 1:01 PM DOG BEHAVIORIST Clinical Indication: Fever. low abdomen pain. DLP: [...] patient's nurse Jessica at 07/28/2016 2:30 PM DOG BEHAVIORIST. SL: [id number] 07/27/2016 [facility] Chest 2 views DX EXAM: XR CHEST 2 VIEW DATE: 07/24/2016 3:33 PM DOG BEHAVIORIST INDICATION: Dyspnea. COMPARISON: 07/03/2016 TECHNIQUE: PA and [...] subsegmental atelectasis. No acute cardiopulmonary abnormality. SL: [id number] 07/24/2016 [facility] Paracentesis w ultrasound guide VR Paracentesis with [...] used. After administering local anesthesia, a 5 Mexican catheter was placed into the peritoneal cavity [...] 2000 milliliters of fluid were aspirated. SL: [id number] 07/19/2016 [facility] Abdomen/Pelvis wo IV contrast CT Patient Name: CHIKA BOJORQUEZ : 1975; Age: 40 years y/o Female MR: [id number] * I. COMPUTED TOMOGRAPHY SCAN OF THE [...] region of the caval atrial junction. SL: [id number] 07/18/2016 [facility] Chest 1view DX Patient Name: CHIKA BOJORQUEZ : 1975; Age: 40 years Female MR: [id number] Study: Chest 1view DX Order Time: 07/03/2016 4:20 PM DOG BEHAVIORIST Clinical Indication: PICC Line Placement. STAT portable [...] placement as described above without pneumothorax. SL: [id number] 07/03/2016 [facility] Abd Pancreatic Protocol w/wo contrast CT Abd Pancreatic Protocol w/wo contrast CT 06/29/2016 10:37 AM DOG BEHAVIORIST Ordering Physician:Brent Zuleta MD CLINICAL HISTORY: Generalized [...] right. 5. Moderate anasarca. SL: XIANG 06/29/2016 [facility] Spine lumbar wo contrast MRI Study: [...] canal stenosis or neural foraminal narrowing. SL: [id number] 06/28/2016 [facility] Spine cervical wo contrast MRI Study: [...] mm diffuse disc bulge at C5-C6. SL: [id number] 06/28/2016 [facility] Abdomen RUQ US Clinical Indication: Abdominal [...] present around the liver. SL: 82 06/28/2016 [facility] Ext Lower Venous Doppler Bilat US Patient Name: CHIKA BOJORQUEZ : 1975; Age: 40 years y/o Female MR: [id number] Study: Ext Lower Venous Doppler Bilat US 06/24/2016 1:22 PM DOG BEHAVIORIST Clinical Indication: Bilateral leg swelling; Comparison: 08/14/2012 [...] the popliteal vein bilaterally. SL: CSODERSTROM-PC 06/24/2016 [facility] w/wo contrast MRI EXAM: MRI BRAIN WITH AND WITHOUT CONTRAST DATE: 06/22/2016 11:31 PM DOG BEHAVIORIST INDICATION: Ataxia. COMPARISON: CT brain dated 06/22/2016. [...] IMPRESSION: Unremarkable MRI of the brain. SL: [id number] 06/23/2016 [facility] wo contrast CT Clinical Indication: Confusion [...] hemorrhage, or subacute stroke. SL: SROSENBLUM-PC 06/22/2016 [facility] Abdomen w/wo contrast MRI Abdomen w/wo contrast MRI 06/17/2016 4:58 PM DOG BEHAVIORIST Ordering Physician: Sadie Gleason MD CLINICAL INDICATION: [...] Probable ovarian/gynecologic neoplasm. Recommend gynecological consultation. SL: [id number] 06/17/2016 [facility] Transvag w Pelvis Doppler US Patient Name: CHIKA BOJORQUEZ : 1975; Age: 40 years y/o Female MR: [id number] 1 TRANSABDOMINAL PELVIC SONOGRAPHY. 2 TRANSVAGINAL PELVIC [...] no evidence of left ovarian torsion. [facility]: [facility] 06/17[facility]2016 [facility] Chest/Abdomen/Pelvis w IV contrast CT Patient Name: CHIKA BOJORQUEZ : 1975; Age: 40 years Female MR: [id number] Study: Chest/Abdomen/Pelvis w IV contrast CT 06/15/2016 9:53 PM DOG BEHAVIORIST Clinical Indication: Abdominal pain, acute. pt had [...] Zafar Newman MD at 06/16/2016 3:28 AM DOG BEHAVIORIST. SL: MONI 06/16/2016 [facility] Consultation Notes No Data Provided for This Section Discharge Summaries No Data Provided for This Section History and Physicals No Data Provided for This Section Vital Signs Vital Sign Value Date Comments Source Systolic (mm Hg) 121 09/02/2018 [facility] Diastolic (mm Hg) 80 09/02/2018 [facility] Respitory Rate 18 09/02/2018 [facility] Heart Rate 92 09/02/2018 [facility] Temperature Oral (F) 98 F 09/02/2018 [facility] Respitory Rate 18 09/02/2018 [facility] Systolic (mm Hg) 121 09/02/2018 [facility] Diastolic (mm Hg) 79 09/02/2018 [facility] Heart Rate 87 09/02/2018 [facility] Temperature Oral (F) 97.9 F 09/02/2018 [facility] Systolic (mm Hg) 116 09/02/2018 [facility] Diastolic (mm Hg) 77 09/02/2018 [facility] Heart Rate 87 09/02/2018 [facility] Respitory Rate 18 09/02/2018 [facility] Temperature Oral (F) 98 F 09/02/2018 [facility] Height 154.9 cm 09/02/2018 [facility] BMI Calculated 22.93 09/02/2018 [facility] Weight 55.008 09/02/2018 [facility] Weight 55.3 09/01/2018 [facility] BMI Calculated 23.04 09/01/2018 [facility] Height 154.94 cm 09/01/2018 [facility] Respitory Rate 23 10/30/2017 [facility] Respitory Rate 24 10/30/2017 [facility] Systolic (mm Hg) 110 10/30/2017 [facility] Diastolic (mm Hg) 71 10/30/2017 [facility] Respitory Rate 24 10/30/2017 [facility] Systolic (mm Hg) 121 10/30/2017 [facility] Diastolic (mm Hg) 53 10/30/2017 [facility] Systolic (mm Hg) 117 10/30/2017 [facility] Diastolic (mm Hg) 87 10/30/2017 [facility] Heart Rate 182 10/30/2017 [facility] Weight 46.364 10/30/2017 [facility] BMI Calculated 19.31 10/30/2017 [facility] Heart Rate 155 10/30/2017 [facility] Height 154.94 cm 10/30/2017 [facility] Temperature Oral (F) 97.9 F 10/30/2017 [facility] Systolic (mm Hg) 128 10/07/2017 [facility] Diastolic (mm Hg) 88 10/07/2017 [facility] Heart Rate 96 10/07/2017 [facility] Temperature Oral (F) 36.67 Keri 10/07/2017 [facility] Respitory Rate 18 10/07/2017 [facility] Height 154.9 cm 10/07/2017 [facility] Weight 49.351 10/07/2017 [facility] Respitory Rate 16 03/20/2017 [facility] Heart Rate 92 03/20/2017 [facility] Systolic (mm Hg) 116 03/20/2017 [facility] Diastolic (mm Hg) 78 03/20/2017 [facility] Temperature Oral (F) 98.0 F 03/20/2017 [facility] Heart Rate 82 03/20/2017 [facility] Temperature Oral (F) 98.0 F 03/20/2017 [facility] Systolic (mm Hg) 108 03/20/2017 [facility] Diastolic (mm Hg) 69 03/20/2017 [facility] Respitory Rate 16 03/20/2017 [facility] Weight 37.756 03/20/2017 [facility] Respitory Rate 16 03/20/2017 [facility] Systolic (mm Hg) 103 03/20/2017 [facility] Diastolic (mm Hg) 65 03/20/2017 [facility] Heart Rate 91 03/20/2017 [facility] Temperature Oral (F) 98.1 F 03/20/2017 [facility] Weight 38.185 03/19/2017 [facility] Weight 37.33 03/17/2017 [facility] Height 154.94 cm 03/10/2017 [facility] BMI Calculated 14.79 03/10/2017 [facility] BMI Calculated 15.15 03/10/2017 [facility] Height 154.94 cm 03/10/2017 [facility] Respitory Rate 20 12/29/2016 [facility] Respitory Rate 17 12/29/2016 [facility] Systolic (mm Hg) 102 12/29/2016 [facility] Diastolic (mm Hg) 63 12/29/2016 [facility] Respitory Rate 19 12/29/2016 [facility] Systolic (mm Hg) 110 12/29/2016 [facility] Diastolic (mm Hg) 58 12/29/2016 [facility] Systolic (mm Hg) 110 12/29/2016 [facility] Diastolic (mm Hg) 62 12/29/2016 [facility] Temperature Oral (F) 98.3 F 12/29/2016 [facility] Temperature Oral (F) 98 F 12/29/2016 [facility] Temperature Oral (F) 98.2 F 12/28/2016 [facility] Height 154.94 cm 12/27/2016 [facility] Height 154.94 cm 12/27/2016 [facility] Weight 44.9 12/27/2016 [facility] BMI Calculated 18.7 12/27/2016 [facility] Weight 44.9 12/27/2016 [facility] Temperature Oral (F) 98.7 F 09/22/2016 [facility] Heart Rate 84 09/22/2016 [facility] Systolic (mm Hg) 107 09/22/2016 [facility] Diastolic (mm Hg) 71 09/22/2016 [facility] Respitory Rate 18 09/22/2016 [facility] Heart Rate 89 09/21/2016 [facility] Systolic (mm Hg) 121 09/21/2016 [facility] Diastolic (mm Hg) 81 09/21/2016 [facility] Respitory Rate 17 09/21/2016 [facility] Temperature Oral (F) 98.7 F 09/21/2016 [facility] Temperature Oral (F) 98.5 F 09/21/2016 [facility] Respitory Rate 19 09/21/2016 [facility] Heart Rate 81 09/21/2016 [facility] Systolic (mm Hg) 115 09/21/2016 [facility] Diastolic (mm Hg) 71 09/21/2016 [facility] Weight 41.818 09/16/2016 [facility] Height 157.48 cm 09/11/2016 [facility] Weight 41.364 09/10/2016 [facility] Height 157.48 cm 09/10/2016 [facility] BMI Calculated 16.68 09/10/2016 [facility] Systolic (mm Hg) 138 09/10/2016 [facility] Diastolic (mm Hg) 86 09/10/2016 [facility] Respitory Rate 18 09/10/2016 [facility] Temperature Oral (F) 97.5 F 09/10/2016 [facility] Heart Rate 103 09/10/2016 [facility] Respitory Rate 18 09/10/2016 [facility] Systolic (mm Hg) 117 09/10/2016 [facility] Diastolic (mm Hg) 75 09/10/2016 [facility] Temperature Oral (F) 97.9 F 09/10/2016 [facility] Heart Rate 99 09/10/2016 [facility] Systolic (mm Hg) 121 09/10/2016 [facility] Diastolic (mm Hg) 85 09/10/2016 [facility] Heart Rate 98 09/10/2016 [facility] Respitory Rate 16 09/10/2016 [facility] Temperature Oral (F) 97 F 09/10/2016 [facility] Weight 50 08/25/2016 [facility] Weight 50 08/24/2016 [facility] BMI Calculated 20.83 08/24/2016 [facility] Height 154.94 cm 08/24/2016 [facility] Respitory Rate 21 08/24/2016 [facility] Systolic (mm Hg) 108 08/23/2016 [facility] Diastolic (mm Hg) 72 08/23/2016 [facility] Respitory Rate 21 08/23/2016 [facility] Systolic (mm Hg) 100 08/23/2016 [facility] Diastolic (mm Hg) 81 08/23/2016 [facility] Respitory Rate 21 08/23/2016 [facility] Temperature Oral (F) 98.2 F 08/23/2016 [facility] Systolic (mm Hg) 124 08/23/2016 [facility] Diastolic (mm Hg) 90 08/23/2016 [facility] Temperature Oral (F) 98.1 F 08/23/2016 [facility] Temperature Oral (F) 100.2 F 08/23/2016 [facility] Weight 50.909 08/21/2016 [facility] Heart Rate 150 08/21/2016 [facility] Heart Rate 147 08/20/2016 [facility] Heart Rate 125 08/20/2016 [facility] Height 154.94 cm 08/18/2016 [facility] BMI Calculated 21.31 08/18/2016 [facility] Weight 51.165 08/18/2016 [facility] Temperature Oral (F) 99.4 F 08/17/2016 [facility] Heart Rate 111 08/17/2016 [facility] Respitory Rate 18 08/17/2016 [facility] Systolic (mm Hg) 114 08/17/2016 [facility] Diastolic (mm Hg) 76 08/17/2016 [facility] Temperature Oral (F) 98.4 F 08/17/2016 [facility] Respitory Rate 19 08/17/2016 [facility] Heart Rate 101 08/17/2016 [facility] Systolic (mm Hg) 117 08/17/2016 [facility] Diastolic (mm Hg) 76 08/17/2016 [facility] Temperature Oral (F) 99.1 F 08/17/2016 [facility] Systolic (mm Hg) 109 08/17/2016 [facility] Diastolic (mm Hg) 76 08/17/2016 [facility] Heart Rate 110 08/17/2016 [facility] Respitory Rate 18 08/17/2016 [facility] Weight 60 07/17/2016 [facility] Weight 143 07/15/2016 [facility] Weight 65 07/14/2016 [facility] Height 154.94 cm 07/05/2016 [facility] BMI Calculated 27.08 07/05/2016 [facility] Systolic (mm Hg) 114 07/05/2016 [facility] Diastolic (mm Hg) 72 07/05/2016 [facility] Respitory Rate 18 07/05/2016 [facility] Heart Rate 92 07/05/2016 [facility] Temperature Oral (F) 98.0 F 07/05/2016 [facility] Respitory Rate 18 07/05/2016 [facility] Temperature Oral (F) 98.2 F 07/05/2016 [facility] Heart Rate 100 07/05/2016 [facility] Systolic (mm Hg) 109 07/05/2016 [facility] Diastolic (mm Hg) 72 07/05/2016 [facility] Systolic (mm Hg) 100 07/05/2016 [facility] Diastolic (mm Hg) 60 07/05/2016 [facility] Respitory Rate 18 07/05/2016 [facility] Heart Rate 73 07/05/2016 [facility] Temperature Oral (F) 98.7 F 07/05/2016 [facility] BMI Calculated 20.62 06/16/2016 [facility] Weight 49.5 06/16/2016 [facility] Height 154.94 cm 06/16/2016 [facility] Weight 51.364 06/16/2016 [facility] BMI Calculated 20.06 06/16/2016 [facility] Height 160.02 cm 06/16/2016 [facility] Encounters Location Location Details Encounter Type Encounter Number Reason For Visit Attending Provider ADM Date DC Date Status Source [facility] Inpatient [id number] Tim Edmonds 06/16/2016 07/05/2016 [facility] Inpatient [id number] Lacho Sofiaherbert 07/05/2016 08/17/2016 [facility] Inpatient [id number] Tim Grey 08/18/2016 08/24/2016 [facility] Inpatient [id number] Tim Grey 08/24/2016 09/10/2016 [facility] Inpatient [id number] Tim Grey 09/10/2016 09/22/2016 [facility] Inpatient [id number] Walter Jim 12/27/2016 12/29/2016 [facility] Inpatient [id number] Darien Queen 03/10/2017 03/20/2017 [facility] Discharged Inpatient [id number] AFSANEH CHAMBERLAIN MD 07/31/2017 08/03/2017 [facility] Registered Surgical Day Care [id number] JANETH THOMPSON MD 08/16/2017 [facility] Discharged Inpatient (obs) [id number] AFSANEH CHAMBERLAIN MD 09/01/2017 09/03/2017 [facility] Gynecology Clinic [place] Office Visit [id number] Jarvis Marx MD 09/23/2017 09/23/2017 [facility] LABORATORY Hospital Encounter [id number] Jarvis Marx MD 09/23/2017 09/24/2017 [facility] Gynecology Clinic [place] Orders Only [id number] Lashon Ochoa ResidentMD 09/24/2017 [facility] Ultrasound [facility] Hospital Encounter [id number] 09/24/2017 09/25/2017 [facility] Gynecology Clinic [place] Orders Only [id number] Lashon Ochoa ResidentMD 09/25/2017 [facility] 4A Med/Surg (4A/M) [facility] Hospital Encounter [id number] Lamar Hinojosa MD 09/27/2017 09/30/2017 [facility] Gynecology Clinic [place] Office Visit [id number] Jarvis Marx MD 10/07/2017 10/07/2017 [facility] Departed Emergency Room [id number] ALEXEI RUSSELL MD 10/18/2017 10/19/2017 [facility] Departed Emergency Room [id number] MERRILL BECKETT MD 10/23/2017 10/24/2017 [facility] Emergency [id number] Susana Nicoleooqi 10/30/2017 10/30/2017 [facility] Urology Clinic Office Visit [id number] 04/08/2018 04/08/2018 [facility] Departed Emergency Room [id number] PATRICIA WINSTON MD 04/20/2018 04/20/2018 [facility] Oncology [facility] Recurring [id number] Nya Mancilla 09/01/2018 10/01/2018 [facility] [place] [facility] Di[facility] [id number] Nya Mancilla 09/04/2018 09/05/2018 [facility] Procedures Procedure Code Date Perfomer Comments Source GLUCOSE POC 89448 09/30/2017 [facility] BASIC METABOLIC PANEL 19134 09/30/2017 [facility] CBC/DIFF 87878 09/30/2017 [facility] MRI PANCREAS W/O CONTRAST 39596 09/30/2017 [facility] IRON PROFILE 56742 09/29/2017 [facility] HAPTOGLOBIN 69158 09/29/2017 [facility] FOLIC ACID 24407 09/29/2017 [facility] LDH 15062 09/29/2017 [facility] RETIC COUNT 73523 09/29/2017 [facility] VITAMIN B12 82804 09/29/2017 [facility] FERRITIN 39856 09/29/2017 [facility] PATHOLOGIST REVIEW [id number] 09/29/2017 [facility] VANCOMYCIN, TROUGH 65642 09/29/2017 [facility] LIVER PROFILE 15374 09/28/2017 [facility] PHOSPHORUS 46929 09/28/2017 [facility] MAGNESIUM 95022 09/28/2017 [facility] THYROID STIM IMMUN 94617 09/28/2017 [facility] [place] ([place]) [place] [address] 09/28/2017 [facility] TOTAL T3 23079 09/28/2017 [facility] U/S THYROID/NECK 74174 09/28/2017 [facility] U/S ABDOMEN 93954 09/28/2017 [facility] URINE DRUG SCREEN 33264 09/27/2017 [facility] INFUSION PUMP [id number] 09/27/2017 [facility] COMPREHENSIVE METABOLIC PANEL(DBIL NOT INCLUDED) 71372 09/27/2017 [facility] PT/INR/PTT 51568 09/27/2017 [facility] HEPATITIS PANEL 62185 09/27/2017 [facility] BEDSIDE ULTRASOUND [id number] 09/27/2017 [facility] VBG POC 72186 09/27/2017 [facility] XRAY CHEST 1 VIEW 32943 09/27/2017 [facility] BMP POC 08930 09/27/2017 [facility] BLOOD CULTURE 93069 09/27/2017 [facility] URINE CULTURE 70773 09/27/2017 [facility] UA CHEMISTRIES 88735 09/27/2017 [facility] TSH 58722 09/27/2017 [facility] FREE T4 18895 09/27/2017 [facility] 12 LEAD EKG 90142 09/27/2017 [facility] U/S TRANSVAGINAL 02174 09/25/2017 [facility] U/S PELVIS NON-OB 63632 09/25/2017 [facility] HEMOGLOBIN A1C 88546 09/24/2017 [facility] HIV-1/HIV-2 DIAGNOSTIC/SYMPTOMATIC 17007 09/24/2017 [facility] SYPHILIS SCREEN FOR INFECTION 56989 09/24/2017 [facility] CHLAM/GC DNA AMPLI 95840 09/24/2017 [facility] HPV HIGH-RISK 33846 09/24/2017 [facility] CLARISSA STAIN 30779 09/24/2017 [facility] WET MOUNT [id number] 09/24/2017 [facility] CYTOLOGY PATHOLOGY 81454 09/24/2017 [facility] [address] of abdomen and pelvis without contrast [id number] 08/31/2017 [facility] CYSTOSCOPY AND TREATMENT 47454 08/16/2017 [facility] Computed tomography of abdomen and pelvis with contrast [id number] 07/31/2017 [facility] Image-guided fluid collection drainage by catheter (eg, abscess, hematoma, seroma, lymphocele, cyst); peritoneal or retroperitoneal, percutaneous 88773 08/27/2016 [facility] Cholecystectomy [id number] 07/29/2016 [facility], AAKASH Crow,[facility] Tubal ligation [id number] [facility], AAKASH Crow,[facility] Assessment and Plan Assessment and Plan Date [...] MD Date: 03/20/17 Progress Note - Daily [facility] Completed: Feb, 12:38 by Nya Mancilla MD RM: 426 - 1P, SE C4B CHIKA BOJORQUEZ Catarino 41y (: 1975) F Attending: Darien Queen MD Service: Internal Medicine Reason for Admission: ABDOMINAL PAIN, SINUS TACHYCARDIA Working DRG: Septicemia or severe sepsis w/o MV 96+ hours w [facility] Code status: None Specified=FULL CODE Current diet: [...] Meds (7): 03/10/17 enoxaparin 40 mg SUB-Q [id number] 03/11/17 insulin aspart 3 unit SUB-Q TID-Before [...] Syringe) 25 gm IVP PRN 03/10/17 acetaminophen-hydrocodone (Oxnard 5/325 oral tablet) 1 tab PO Q6H 03/10/17 acetaminophen-hydrocodone ([place]nard 10/325 oral tablet) 1 tab PO Q6H [...] weeks. Nya Mancilla MD Gynecologic Oncology Staff [phone] Extracted from:Title: Progress Note * Author: Alyssa [...] when she was admitted to [facility] with failure to thrive symptoms and [...] previously placed Axios stent. In 10/2016, at [facility], the pancreatic duct stent was removed [...] 6-10. enoxaparin: 40 mg, 0.4 mL, SUB-Q, [id number]. esmolol-NS 2,500 mg: Titrate, IV, Stop: 04/08/17 [...] 09) Total CK 53 (MAR 09) 03/20/2017 [facility] Extracted from:Title: SENIOR PROGRAMMER ONC Reconsultation Author: Nya Mancilla MD Date: 12/27/16 Endocrine Consult Note: Patient Room: [address] CHIKA BOJORQUEZ 41y (: 1975) F [...] pedunculated. These were originally characterized in the 11/17 imaging and have been reexamined serially during [...] is out of control as a result. SENIOR PROGRAMMER History Menarche/Menopause: 12/ongoing Hormonal exposure with OCPs: [...] stools. : Denies dysuria, hesitancy, frequency, hematuria SENIOR PROGRAMMER: Patient +vaginal bleeding. -change in vaginal discharge, [...] Mucus Few UA Sq Epi Occasional UA [place] Yeast Moderate UA Hyph Yeast Occasional ASSESSMENT [...] time. Nya Mancilla MD Gynecologic Oncology Staff [phone] Extracted from:Title: Clinical Document Author: Micheal Reynolds [...] and replacement on two occasions, presents to [facility] in [place] with c/o several days of dysuria, chills [...] insulin 2/2 N/V. She requested transfer to [facility] for further care. Urology consultation was obtained with Dr. oMnteiro via phone and pt was transferred to the IMCU at [facility]. She currently denies fever but admits to [...] pt NPO for now. 4. Will ask PAN PULLER to evaluate. Pt has been seen by [...] pt, and she does not have an rubber mold maker. Will place on methimazole 20mg PO q8 [...] stent on 08/06/16 (Dr Ezequiel Vaughn @ [facility]) ; ERCP w CBD stone removal and failed deep PD cannulation on 08/24/16 (Dr Olga Vaughn @ [facility]) ; IR drain for infrapancreatic pseudocyst; repeat ERCP with deep cannulation, PD plastic stent, clearence of CBD and removal of Axios metal stent on 09/12/16 (Dr Gleason @[facility]) -Repeat CT scan; labs looked much better; NJ removed and he is tolerated low fat diet. -IR drain flush at home w recording. -Repeat ERCP w PD stent exchange in 6-8 weeks. -Creon TID for pain and diarrhea. 2. Adnexal masses -Ob Onc consultation with [place] dept noted; outpatient f/u recommended. 3. Thyrotoxicosis [...] drain in place. Ext : no edema STAFF SCIENTIST: No gross motor/sensory defects Vitals Tmp(F) Tmp(C) [...] 09/21/16 Pain Intensity NRS (0-10) 8 09/21/16 [place] Coma Score 15 09/20/16 [facility] Fall Score 6 09/20/16 [place] Score 19 Lines, Tubes, and Drains: 09/13/2016 17:00 Surgical Drains: Jeremías Lainez Drain 16 fr abdominal fluid drain Right 09/13/2016 11:00 Gastric Tubes: Nasoduodenal Nostril, right 09/13/2016 08:40 Gastric Tubes: Nasogastric Nostril, right 09/10/2016 20:30 Central Lines: Basilic vein, left PICC Triple Surgical Procedures: 09/13/16 12:07 CYSTOSCOPY / RETROGRADE / STENT EXCHANGE, LEFT [id number] Primary Surgeon: Cristóbal Mars MD (Service: URO) 09/12/16 08:56 ERCP / MAC [id number] Primary Surgeon: Sadie Gleason MD (Service: END) [...] PO Daily [Last Rescheduled Dt/Tm: 09/21/16 9:00:00 DOG BEHAVIORIST] [eMAR Schedule: (09/21/16) 09:00] [Future Dose: 09/22/16 09:00] enoxaparin 40 mg SUB-Q Daily [Last Rescheduled Dt/Tm: 09/10/16 21:00:00 DOG BEHAVIORIST] [eMAR Schedule: (09/21/16) 21:00] [Future Dose: 09/22/16 21:00] methimazole 10 mg PO Q8H [eMAR Schedule: (09/21/16) 00:00, 08:00, 16:00; (09/22/16) 00:00] pancrelipase (Creon 24,000 units oral delayed release capsule) 1 cap PO TID- Before Meals [Last Rescheduled Dt/Tm: 09/21/16 7:30:00 DOG BEHAVIORIST] [eMAR Schedule: (09/21/16) 07:30, 11:30, 16:30; (09/22/16) 07:30] pantoprazole 40 mg PO Before Dinner [eMAR Schedule: (09/21/16) 16:30] [Future Dose: 09/22/16 16:30] propranolol 20 mg PO TID [Last Rescheduled Dt/Tm: 09/11/16 9:00:00 DOG BEHAVIORIST] [eMAR Schedule: (09/21/16) 09:00, 13:00, 17:00] Unscheduled [...] 2 tab, PO, TID Documented Medications Suspended Oxnard 5/325 oral tablet: 1 tab, PO, Q6H, PRN: Pain Score 1-3, 0 Refill(s) enoxaparin: 40 mg, 0.4 mL, SUB-Q, [id number], 0 Refill(s) insulin isophane (NPH) 100 units/mL [...] list: All Problems Hypomagnesemia / SNOMED CT 257927564 / Confirmed MRSA / SNOMED CT 447930824 / Confirmed Problem added by Discern Expert. Cyst fluid, 08/06/2016 Severe malnutrition / SNOMED CT 42913668 / Confirmed, Active Problems (3) Hypomagnesemia MRSA Severe malnutrition Histories Past Medical History: Active Severe malnutrition (64271995): Onset on 08/27/2016 at 40 years. Resolved Goiter (240.9): Resolved. Heartburn (787.1): Resolved. Gallbladder disease (086525973): Resolved. Diabetes (636959959): Resolved. Hypophosphatemia (9230896): Resolved on 08/31/2016 at 40 years. Family History: Asthma Father Comments: 08/14/2012 20:08 - Merrill Santos RN as a child Type 2 diabetes mellitus Mother Procedure history: Cholecystectomy (40465988) on 07/29/2016 at 40 Years. Tubal ligation (209466953). Social History Social and Psychosocial Habits Alcohol [...] angle tenderness. Musculoskeletal No clubbing/cyanosis/edema Integumentary: Warm, Nichols. Neurologic: Alert, Oriented. Cognition and Speech: Oriented, [...] above plan. Cristóbal Mars MD [facility] Office: [phone] 09/22/2016 [facility] Extracted from:Title: Hospitalist Progress Note Author: Bree Vences MD Date: 09/10/16 Assessment/Plan 1. Cholangitis -Patient completed 10 day course of IV antimicrobials. -Patient has abdominaldrain in place with persistent drainage - flushing drain [id number] 2.Acute pancreatitis: Post ERCP in patientwith choledocholithiasis [...] NPH insulin with good glycemic control - [facility] 6.Severe malnutrition -Nutrition via nasojejunal tube primarily buton clear liquid diet as tolerated 7. Hyperthyroidism: -Continue methimazoleas per home dosage Prophylaxis lovenox Disposition transfert back to [facility] 09/10/2016 [facility] Extracted from:Title: Clinical Document Author: Sadie Gleason MD Date: 08/23/16 Progress Note Gastroenterology and Hepatology ASSESSMENT /PLAN: This is a 40-year-old female with recent history of thyroid toxicosis, pelvic masses, acute severe pancreatitis complicated by symptomatic pseudocyst and severe malnutrition. 1. Acute over chronic pancreatitis w infeceted pseudocyst; s/p Axios stent at [facility] facility on 08/06/16 - Given [...] 2. Adnexal masses -Ob Onc consultation with [place] dept noted; outpatient f/u recommended. 3. Thyrotoxicosis [...] multidiscplinary team back up; recommend transfer to [facility] - D/w Dr Shine who has agreed [...] , BS + Ext : no edema STAFF SCIENTIST: No gross motor/sensory defects Vitals Tmp(F) Tmp(C) [...] Score 11 08/22/16 [place] Score 18 08/22/16 [place] Coma Score 15 Lines, Tubes, and Drains: [...] AND DOLOHOFF PLACEMENT/TO FOLLOW START TIME REQUESTED [id number] Primary Surgeon: Sadie Gleason MD (Service: END) [...] 0.9% INJ 100 mL 1 gm IVPB [id number] 200 ml/hr [Last Rescheduled Dt/Tm: 08/18/16 4:00:00 DOG BEHAVIORIST] [eMAR Schedule: (08/23/16) 04:00, 16:00; (08/24/16) 04:00] enoxaparin (Lovenox) 40 mg SUB-Q [id number] [eMAR Schedule: (08/23/16) 22:00] [Future Dose: 08/24/16 22:00] methimazole 10 mg PO Q8H [eMAR Schedule: (08/23/16) 00:00, 08:00, 16:00; (08/24/16) 00:00] pantoprazole (Protonix) 40 mg IVP Before Dinner [Last Rescheduled Dt/Tm: 08/17/16 22:00:00 DOG BEHAVIORIST] [eMAR Schedule: (08/23/16) 16:30] [Future Dose: 08/24/16 16:30] propranolol 20 mg PO TID [Last Rescheduled Dt/Tm: 08/22/16 16:00:00 DOG BEHAVIORIST] [eMAR Schedule: (08/23/16) 00:00, 08:00, 16:00; (08/24/16) 00:00] vancomycin + sodium chloride 0.9% 250 mL INJ (for IV set) 250 mL 1,250 mg IVPB [id number] 250 ml/hr [Last Rescheduled Dt/Tm: 08/21/16 18:00:00 DOG BEHAVIORIST] [eMAR Schedule: (08/23/16) 02:00, 10:00, 18:00; (08/24/16) 02:00] Unscheduled Meds: None PRN Meds (13): Dextrose 50% in Water IV (Dextrose 50% Syringe) 12.5 gm IVP PRN Dextrose 50% in Water IV (Dextrose 50% Syringe) 25 gm IVP PRN acetaminophen-hydrocodone (Oxnard 5/325 oral tablet) 1 tab PO Q6H [...] Voluntary Type of Urinary Elimination: Incontinent 08/24/2016 [facility] Extracted from:Title: Discharge Summary * Author: Shawanda Yuan NP Date: 08/17/16 Patient: CHIKA BOJORQUEZ Age: 40 years Sex: Female : 1975 Associated Diagnoses: None Author: Shawanda Yuan NP Attending Physician: Amada Dawson Date of admission: 07/05/2016 Date of discharge to [facility]: 08/17/2016 Discharge diagnosis: 1. Acute pancreatitis [...] diabetes mellitus, who was initially admitted at [facility] for thyroid storm as well as [...] addressed completely. Patient was transferred back to [facility] as she is clinically not improving as the pelvic fluid collections around the pelvic mass recurs even draining after multiple times and will require a gynecology and oncology evaluation. Addendum by Amada López MD on 08/18/2016 13:44 PT SEEN and examined, agree with above recommendations. transfer to [facility] , team accepted patient there for [...] seen and examined by me with the resident/STEAM PRESSER/PA and I agree with the History/Exam documented. 07/05/2016 [facility] Plan of Care Plan of Care Date Source DM Microalbumin Urine Scrn (Yearly) 09/26/2018 [facility] DM HGBA1C (Yearly) 09/23/2018 [facility] IMM Influenza Seasonal Apr to September (>/=19 yrs) 04/28/2018 [facility] Discharge Date 04/20/18 3:16pm Disposition HOME, SELF-CARE Condition at Discharge Stable Instructions/Education Provided Back Pain Urinary Tract Infection - Women Forms Provided Work/School Excuse Prescriptions See Medication Section Referrals PHILLIP XAVIER MD Address: [address] [place] [address] JANETH THOMPSON MD Order Date: Call for an appointment Address: [address] [place] [address] Additional Instructions/Education CLINICAL IMPRESSION Urinary tract infection. DISCHARGE INSTRUCTIONS Prescription Medications: Macrobid 100 mg: take 1 capsule orally every 12 hours for 7 days. No refill. Substitution is permissible. 04/20/2018 [facility] Breast Cancer Scrn (Yearly) 2014 [facility] Cervical Cancer Scrn (3 Yrs) 10/27/1995 [facility] DM Foot Exam (Yearly) 1992 [facility] Social History Social History Date Source [...] End No recent travel history available. 09/29/2017 [facility] Social History TypeResponse Substance Abuse Use: None. Sexual Sexually active: Yes. Alcohol Never Smoking Status Former smoker; Type: Cigarettes; Ready to change: No; Concerns about tobacco use in household: No; Exposure to Tobacco Smoke None; Cigarette Smoking Last 365 Days No; Reg Smoking Cessation Counseling No; Other Tobacco Frequency 07/05/2014 Quit; entered on: 03/10/17 07/06/2016 [facility] Social History TypeResponse Substance Abuse Use: None. Sexual Sexually active: Yes. Alcohol Never Smoking Status Former smoker; Type: Cigarettes; Ready to change: No; Concerns about tobacco use in household: No; Exposure to Tobacco Smoke None; Cigarette Smoking Last 365 Days No; Reg Smoking Cessation Counseling No; Other Tobacco Frequency 07/05/2014 Quit; entered on: 03/10/17 07/06/2016 [facility] Social History TypeResponse Substance Abuse Use: None. Sexual Sexually active: Yes. Alcohol Never Smoking Status Former smoker; Ready to change: No; Concerns about tobacco use in household: No; Exposure to Tobacco Smoke None; Cigarette Smoking Last 365 Days No; Reg Smoking Cessation Counseling No 07/06/2016 [facility] Social History TypeResponse Substance Abuse Use: None. Sexual Sexually active: Yes. Alcohol Never Smoking Status Former smoker; Type: Cigarettes; Ready to change: No; Concerns about tobacco use in household: No; Exposure to Tobacco Smoke None; Cigarette Smoking Last 365 Days No; Reg Smoking Cessation Counseling No; Other Tobacco Frequency 07/05/2014 Quit; entered on: 03/10/17 07/06/2016 [facility] Family History Value Date Source Medical HistoryRelationNameComments Diabetes type II Mother Heart disease Other RelationNameStatusComments Mother Other 09/17/2018 [facility] Advance Directives Order Name Results Value Date Source Advance Directives Advance Directives For more information, please contact:[address] [id number] Code Status on FileCode StatusDate ActivatedDate InactivatedComments Full Code 09/27/2017 9:00 AM 09/30/2017 5:20 PM 09/17/2018 [facility] Advance Directives Advance Directives Directive Response Recorded Date/Time Does the patient have an advance directive? No 09/01/17 4:59am If yes, is advance directive on file with [facility]? No 10/23/17 10:48pm If not on file with [facility] will patient provide a copy? Yes 10/23/17 10:48pm Do you have a Directive to Physician? No 04/20/18 11:10am Do you have a Medical Power of Laborer Driver? No 04/20/18 11:10am Do you have an [...]
[2019-03-20 06:50] LABS: ANION GAP 15.6 mmol/L (8-16); BLOOD UREA NITROGEN 17 mg/dL (7-26); BUN/CREATININE RATIO 26 (6-25); CALCIUM 9.1 mg/dL (8.4-10.2); CARBON DIOXIDE 20 mmol/L (22-29); CHLORIDE 102 mmol/L (98-107); CREATININE, SERUM 0.66 mg/dL (0.57-1.11); EST GLOMERULAR FILTRATION RATE > 60 ML/MIN (60-); GLUCOSE 201 mg/dL (74-118); POTASSIUM 3.6 mmol/L (3.5-5.1); SODIUM 134 mmol/L (136-145)
[2019-03-20 09:40] VITALS: BP 111/70
--- NOTE | 2019-03-20 10:30 | Operative Report ---
DATE OF PROCEDURE: 03/20/2019 SURGEON: Govind Prnigle MD PREOPERATIVE DIAGNOSES: 1. Indwelling encrusted left ureteral stent. 2. Left hydronephrosis. POSTOPERATIVE DIAGNOSES: 1. Indwelling encrusted left ureteral stent. 2. Left hydronephrosis. PROCEDURES: 1. Staged cystoscopy with stent removal complicated secondary to encrustation. 2. Cystourethroscopy with insertion of left indwelling stent (entirely separate procedure for diagnosis of left hydronephrosis). 3. Supervision of fluoroscopy for stent removal portion. 4. Interpretation of retrograde pyelography for hydronephrosis. ANESTHESIA: General. ESTIMATED BLOOD LOSS: Minimal. COMPLICATIONS: None. INDICATIONS: Ms. Bojorquez is a noncompliant 43-year-old female patient, who has an indwelling stent for over 3 years secondary to abdominal lymphadenopathy and obstruction and mass. She and I had a long discussion about alternatives, risks, and benefits of doing nothing, stent removal and exchange, ureteroscopy, percutaneous surgery or open surgery. She voiced understanding of the options, alternatives, risks, and benefits and elected to proceed with stent exchange. She voiced explicit understanding that the stent is a temporary indwelling device and it must be removed and failure to do so could lead to encrustation, infection, inflammation, atrophy, loss of kidney, and even . She voices both at my clinic prior to any hospital visit as well as here in the hospital, she elected to proceed. PROCEDURE IN DETAIL: After informed consent was obtained, the patient was taken to operative suite, placed supine on the table, and underwent general anesthesia by Anesthesia Service. She was placed in the dorsal lithotomy position, sterilely prepped and draped in standard fashion for cystoscopy. A 22.5-Guinean cystoscope was inserted per urethra, encrusted black ureteral stent was seen. A guidewire was inserted along side the stent with 5-Guinean open-ended catheter. The stent was removed with moderate difficulty .a 5 fr open ended was advanced over the guidewire, confirming position in the collecting system with contrast into the nephrostomy bag. At this time, guidewire was reinserted. A 6 x 24 ureteral stent was deployed with a coil in the renal pelvis and coil in the bladder. String was tied at the level of meatus. The patient was awakened from anesthesia and transferred to recovery room in excellent condition. Supervision of fluoroscopy, interpretation of retrograde pyelography: I was present for the entire procedure and supervised fluoroscopy. There was no radiologist present in her procedure. . Attention was turned towards the left ureteral orifice, which was catheterized. A 5-Guinean open- ended catheter retrograde pyelogram performed revealing dilated collecting system in the nephrostomy in adequate position of left tube, exchange of left ureteral stent noted. MD ROSALAB Tran/MODL /[id number]
== END | disposition home or self-care (01) ==
LOC: OR 05:40
PROVIDERS: ATTEND Urology
DX: Z46.6 Encounter for fitting and adjustment of urinary device (principal); T19.1XXD Foreign body in bladder, subsequent encounter; N39.0 Urinary tract infection, site not specified; R31.29 Other microscopic hematuria; N13.39 Other hydronephrosis; Z91.19 Patient's noncompliance with other medical treatment and regimen; Z88.1 Allergy status to other antibiotic agents; Z88.8 Allergy status to other drugs, medicaments and biological substances; E11.9 Type 2 diabetes mellitus without complications; R53.1 Weakness; E05.90 Thyrotoxicosis, unspecified without thyrotoxic crisis or storm; Z01.810 Encounter for preprocedural cardiovascular examination; Z01.812 Encounter for preprocedural laboratory examination
CPT/HCPCS: 36415; 74420; 80048; 82948; 84702; 85025; 93005; C1758; C2617; J1100; J1580; J2001; J2250; J2405; J3010

== ENCOUNTER → 2019-06-05 | Day surgery (SDC) | payer OTHER ==
[2019-06-02 14:43] LABS: ANION GAP 13.7 mmol/L (8-16); BLOOD UREA NITROGEN 9 mg/dL (7-26); BUN/CREATININE RATIO 16 (6-25); CALCIUM 9.1 mg/dL (8.4-10.2); CARBON DIOXIDE 19 mmol/L (22-29); CHLORIDE 105 mmol/L (98-107); CREATININE, SERUM 0.58 mg/dL (0.57-1.11); EST GLOMERULAR FILTRATION RATE > 60 ML/MIN (60-); GLUCOSE 165 mg/dL (74-118); POTASSIUM 3.7 mmol/L (3.5-5.1); SODIUM 134 mmol/L (136-145)
[~2019-06-05] MED LIST changes: +CEFTRIAXONE SOD 1 GM/NS 50 ML 0 ML IV ONE; -FENTANYL CITRATE/PF 100MCG/2 ML INJ ONE; -GENTAMICIN 120MG/NS 100ML 100 ML ONE; +GENTAMICIN 80MG/NS 100 ML 100 ML IV ONE; +IOPAMIDOL 300MG/ML 50ML INFUS..BTL IV ONE; -IOPAMIDOL 610MG/1ML 300 MG/ML VIAL IV ONE; +LEVEMIR100 UNIT/1 SC; +NOVOLOG100 UNIT/1 SC
[2019-06-05 08:30] VITALS: BP 120/71
--- NOTE | 2019-06-05 14:58 | Operative Report ---
DATE OF PROCEDURE: 06/05/2019 SURGEON: Govind Pringle MD PREOPERATIVE DIAGNOSES: 1. Left indwelling stent. 2. Left indwelling nephrostomy. 3. Left hydronephrosis. POSTOPERATIVE DIAGNOSES: 1. Left indwelling stent. 2. Left indwelling nephrostomy. 3. Left hydronephrosis. PROCEDURE: 1. Cystourethroscopy with complicated removal of left indwelling stent (entirely separate procedure complicated secondary to encrustation). 2. Cystoscopy insertion of left indwelling stent (entirely separate procedure for diagnosis of left hydronephrosis). 3. Removal of left nephrostomy. 4. Supervision of fluoroscopy. ANESTHESIA: General. ESTIMATED BLOOD LOSS: Minimal. COMPLICATIONS: None. INDICATIONS FOR PROCEDURE: Mrs. Bojorquez is a very pleasant 43-year-old female with chronic hydronephrosis, stent, and nephrostomy. She voiced the options, alternatives, risks, and benefits and elected to proceed with stent exchange and nephrostomy. PROCEDURE IN DETAIL: After informed consent was obtained, the patient was taken to the operative suite, placed in supine on the operating table. She underwent general anesthesia by Anesthesia Service, was placed in dorsal lithotomy position and sterilely prepped and draped for cystoscopy. A 21-Telugu cystoscope was inserted per urethra. Normal urethra was noted. Panendoscopy of the bladder revealed no tumors, no stones. stent was exchanged. Nephrostomy was removed. The patient awakened from anesthesia and transported to the recovery room in excellent condition. Supervision of fluoroscopy: I was present for the entire procedure and supervised fluoroscopy. There was no radiologist present. MD ROSALBA Tran/MODL /[id number]
== END | disposition home or self-care (01) ==
LOC: OR 06:43
PROVIDERS: ATTEND Urology
DX: N13.30 Unspecified hydronephrosis (principal); Z46.6 Encounter for fitting and adjustment of urinary device; Z43.6 Encounter for attention to other artificial openings of urinary tract; N39.0 Urinary tract infection, site not specified; E11.9 Type 2 diabetes mellitus without complications; Z88.1 Allergy status to other antibiotic agents; Z01.812 Encounter for preprocedural laboratory examination; Z79.4 Long term (current) use of insulin; Z92.3 Personal history of irradiation; Z87.891 Personal history of nicotine dependence
CPT/HCPCS: 36415 ×2; 50389; 52332; 74420; 80048; 81025; 82948; C1758; C2617; J1100; J1580; J2001; J2250; J2405; J2704; Q9967; J0696

== ENCOUNTER → 2019-09-04 | Day surgery (SDC) | payer OTHER ==
[2019-09-02 10:39] LABS: BLOOD UREA NITROGEN 8 mg/dL (7-26); BUN/CREATININE RATIO 15 (6-25); CALCIUM 8.4 mg/dL (8.4-10.2); CARBON DIOXIDE 17 mmol/L (22-29); CHLORIDE 111 mmol/L (98-107); CREATININE, SERUM 0.55 mg/dL (0.57-1.11); EST GLOMERULAR FILTRATION RATE > 60 ML/MIN (60-); GLUCOSE 141 mg/dL (74-118); SODIUM 136 mmol/L (136-145)
[~2019-09-04] MED LIST changes: -CEFTRIAXONE SOD 1 GM/NS 50 ML 0 ML IV ONE; +FENTANYL CITRATE/PF 100MCG/2 ML INJ ONE; +LEVOFLOXACIN 500MG/D5W 100ML 100 ML IV ONE; -MIDAZOLAM HCL 2 MG/2 ML VIAL ONE
[2019-09-04 08:40] VITALS: BP 121/62
--- NOTE | 2019-09-07 15:09 | Operative Report ---
DATE OF PROCEDURE: 09/04/2019 SURGEON: Govind Pringle MD PREOPERATIVE DIAGNOSES: 1. Indwelling left ureteral stent. 2. Left hydronephrosis. POSTOPERATIVE DIAGNOSES: 1. Indwelling left ureteral stent. 2. Left hydronephrosis. PROCEDURES: 1. Cystourethroscopy with complicated removal of left ureteral stent (entirely separate procedure for encrusted left ureteral stent). 2. Cystourethroscopy with insertion of left ureteral stent (entirely separate procedure, left hydronephrosis). 3. Supervision of fluoroscopy. 4. Interpretation of retrograde pyelography. ANESTHESIA: General. ESTIMATED BLOOD LOSS: Minimal. COMPLICATIONS: None. INDICATIONS: Ms. Bojorquez is a very pleasant 43-year-old female with history of chronic indwelling left ureteral stent. She and I had a long discussion on alternatives, risks and benefits of doing nothing, stent removal, exchange, percutaneous nephrostomy, open surgery or shock wave lithotripsy. She voiced understanding of the options, alternatives, risks, and benefits. She elected to proceed. PROCEDURE IN DETAIL: After informed consent was obtained, the patient was taken to the operative suite, placed supine on the operating table, and underwent general anesthesia by Anesthesia Service, placed in dorsal lithotomy position and sterilely prepped for cystoscopy. A 21-Croatian cystoscope was inserted per urethra and normal urethra was noted. There was a stent seen extruding from left ureteral orifice, was encrusted and removed intact. Attempts were made to catheterize and they failed. Guidewire was inserted and seen to coil at the level of renal pelvis on fluoroscopy. Retrograde pyelogram was performed revealing right ureteral reflux. Ureteral stent was deployed with coil in renal pelvis and a coil in the bladder. The bladder was drained. The patient was awakened from anesthesia and transported to the recovery room in excellent condition. Supervision of fluoroscopy and interpretation of retrograde pyelography: I was present for the entire procedure and supervised fluoroscopy. There was no radiologist present. Attention was turned to the left ureteral orifice, was catheterized. Retrograde pyelogram was performed revealing dilated ureter with tortuosity this with extrinsic compression. Postoperative views reveal a left ureteral stent in adequate position. Of note, there was grade 1 right ureteral reflux. Govind Pringle MD ES/MODL /[id number] cc: Santo Wiley MD
== END | disposition home or self-care (01) ==
LOC: OR 06:34
PROVIDERS: ATTEND Urology
DX: Z46.6 Encounter for fitting and adjustment of urinary device (principal); N13.30 Unspecified hydronephrosis; E11.9 Type 2 diabetes mellitus without complications; F41.9 Anxiety disorder, unspecified; E05.90 Thyrotoxicosis, unspecified without thyrotoxic crisis or storm; Z88.1 Allergy status to other antibiotic agents; Z88.8 Allergy status to other drugs, medicaments and biological substances; Z79.4 Long term (current) use of insulin
CPT/HCPCS: 36415 ×2; 52332; 74420; 80048; 81025; 82948; 93005; C1758; C1769; C2617; J1100; J1580; J1956; J2001; J2405; J2704; J3010; Q9967

== ENCOUNTER → 2019-12-18 | Day surgery (SDC) | payer OTHER ==
[2019-12-15 11:20] LABS: ANION GAP 12.3 mmol/L (8-16); BLOOD UREA NITROGEN 5 mg/dL (7-26); BUN/CREATININE RATIO 9 (6-25); CALCIUM 8.6 mg/dL (8.4-10.2); CARBON DIOXIDE 16 mmol/L (22-29); CHLORIDE 115 mmol/L (98-107); CREATININE, SERUM 0.55 mg/dL (0.57-1.11); EST GLOMERULAR FILTRATION RATE > 60 ML/MIN (60-); GLUCOSE 157 mg/dL (74-118); POTASSIUM 4.3 mmol/L (3.5-5.1); SODIUM 139 mmol/L (136-145)
[~2019-12-18] MED LIST changes: -DEXAMETHASONE SOD PHOS INJ 4 MG/ML VIAL ONE; +ETOMIDATE 2 MG/ML 10 ML INJ IV ONE; -FENTANYL CITRATE/PF 100MCG/2 ML INJ ONE; -LEVOFLOXACIN 500MG/D5W 100ML 100 ML IV ONE; -PROPOFOL IV EMULSION 10 MG/ML 20 ML VIAL ONE
--- NOTE | 2019-12-18 07:14 | NUR ---
SPIRITUAL CARE - Pre-Surgery Assessment: Pt in bed. Pt reported supportive attention from family and friends. Intervention: I provided pastoral presence, hospitality, and sympathetic listening. I acquainted pt with availability of electronics tech while hospitalized. Outcome: Pt expressed appreciation for visit. No need for follow up indicated at this time. SHELLI [facility]lain Spiritual Care Department O: [phone]
[2019-12-18 09:06] VITALS: BP 122/60
--- NOTE | 2019-12-18 13:43 | Operative Report ---
DATE OF PROCEDURE: 12/18/2019 SURGEON: Govind Pringle MD PREOPERATIVE DIAGNOSES: 1. Indwelling left ureteral stent, encrusted. 2. Left-sided hydronephrosis. POSTOPERATIVE DIAGNOSES: 1. Indwelling left ureteral stent, encrusted. 2. Left-sided hydronephrosis. PROCEDURES: 1. Cystourethroscopy with complicated removal of left indwelling ureteral stent (entirely separate procedure for diagnosis of left indwelling ureteral stent). 2. Cystourethroscopy with insertion of a left indwelling ureteral stent (entirely separate procedure for diagnosis of left hydronephrosis). 3. Supervision of fluoroscopy. ANESTHESIA: General. ESTIMATED BLOOD LOSS: Minimal. COMPLICATIONS: None. INDICATIONS FOR PROCEDURE: Ms. Bojorquez is a very pleasant 44-year-old female with retroperitoneal fibrosis and chronic stent changes. She and I had a long discussion about alternatives, risks, and benefits of doing nothing, stent exchange, explicit understanding that stent is temporary indwelling device and must be removed and a failure to do so could lead to encrustation, infection, inflammation, atrophy, loss of kidney, and . She elected to proceed. PROCEDURE IN DETAIL: After informed consent was obtained, the patient was taken to the operative suite, place supine on the operating table, underwent general anesthesia by the Anesthesia Service, placed in dorsal lithotomy position, and sterilely prepped and draped for cystoscopy. A 21-Portuguese cystoscope was inserted per urethra. Normal urethra was noted. Panendoscopy of bladder revealed no tumors, no stones. Attempts were made to be sure the left ureteral orifice was grasped. Attempts were made to catheterize the stent and this failed. A guidewire was inserted. The stent was removed intact with moderate difficulty. A 7 x 26 cm stent placed with coil at the level of renal pelvis and a coil in the bladder. The bladder was drained. The patient was awakened from anesthesia and transported to recovery room in excellent condition. Supervision of fluoroscopy: I was present for the entire procedure and supervised fluoroscopy. There was no radiologist. Govind Pringle MD ES/MODL /[id number]
== END | disposition home or self-care (01) ==
LOC: OR 06:09
PROVIDERS: ATTEND Urology
DX: Z46.6 Encounter for fitting and adjustment of urinary device (principal); N13.30 Unspecified hydronephrosis; N13.5 Crossing vessel and stricture of ureter without hydronephrosis; Z87.440 Personal history of urinary (tract) infections; E11.9 Type 2 diabetes mellitus without complications; F41.9 Anxiety disorder, unspecified; Z88.1 Allergy status to other antibiotic agents; Z01.812 Encounter for preprocedural laboratory examination; Z11.59 Encounter for screening for other viral diseases; Z79.4 Long term (current) use of insulin
CPT/HCPCS: 36415 ×2; 52332; 80048; 81025; 82948; 87635; C1758; C1769; C2617; J1580; J2001; J2405; Q9967; 76000

== ENCOUNTER → 2020-03-11 | Day surgery (SDC) | payer OTHER ==
[2020-03-07 15:25] LABS: ANION GAP 12.9 mmol/L (8-16); BLOOD UREA NITROGEN 13 mg/dL (7-26); BUN/CREATININE RATIO 14 (6-25); CALCIUM 8.6 mg/dL (8.4-10.2); CARBON DIOXIDE 18 mmol/L (22-29); CHLORIDE 106 mmol/L (98-107); CREATININE, SERUM 0.92 mg/dL (0.57-1.11); EST GLOMERULAR FILTRATION RATE > 60 ML/MIN (60-); GLUCOSE 183 mg/dL (74-118); POTASSIUM 3.9 mmol/L (3.5-5.1); SODIUM 133 mmol/L (136-145)
[~2020-03-11] MED LIST changes: +DEXAMETHASONE SOD PHOS INJ 4 MG/ML VIAL ONE; -ETOMIDATE 2 MG/ML 10 ML INJ IV ONE; +FENTANYL CITRATE/PF 100MCG/2 ML INJ ONE; +LUPRON DEPOT11.25 MG INJ; +MIDAZOLAM HCL 2 MG/2 ML VIAL ONE; +PROPOFOL IV EMULSION 10 MG/ML 20 ML VIAL ONE
[2020-03-11 08:34] VITALS: BP 132/71
--- NOTE | 2020-03-12 21:52 | Operative Report ---
DATE OF PROCEDURE: 03/11/2020 SURGEON: Goivnd Pringle MD PREOPERATIVE DIAGNOSES: 1. Indwelling left ureteral stent. 2. Left hydronephrosis. POSTOPERATIVE DIAGNOSES: 1. Indwelling left ureteral stent. 2. Left hydronephrosis. PROCEDURES: 1. Cystourethroscopy with complicated removal of left indwelling stent (entirely separate procedure for diagnosis of left indwelling ureteral stent). 2. Cystourethroscopy with insertion of left indwelling stent (entirely separate procedure for left hydronephrosis). 3. Supervision of fluoroscopy. 4. Interpretation of retrograde pyelography. ANESTHESIA: General. ESTIMATED BLOOD LOSS: Minimal. COMPLICATIONS: None. INDICATIONS: Ms. Bojorquez is a very pleasant 44-year-old female with a history of chronic indwelling stent secondary to hydronephrosis. She and I had a long discussion about alternatives, risks, and benefits of doing nothing, stent change, nephrostomy . She voiced understanding of the options, alternatives, the risks and the benefits, and she elected to proceed. PROCEDURE IN DETAIL: After informed consent obtained, the patient was taken to the operative suite, place supine on the operative table, underwent general anesthesia by the Anesthesia Service, placed in dorsal lithotomy position, and sterilely prepped and draped for cystoscopy. A 21-Persian cystoscope was inserted per urethra. Normal urethra was noted. Panendoscopy of the bladder revealed no tumors, no stones. Both ureteral orifices were normal in anatomic location and position, and efflux urine. Stent was seen extruding from left ureteral orifice and it was grasped; attempts were made to catheterize it, this was encrusted and failed. A guidewire was inserted alongside the stent and seen to coil at the level of the renal pelvis on fluoroscopy. A 7 x 28 ureteral stent was deployed with coil in the renal pelvis and a coil in the bladder. The patient's bladder was drained. She was awakened from anesthesia and transported to the recovery room in excellent condition. Supervision of fluoroscopy and interpretation of retrograde pyelography: I was present for the entire procedure and I supervised the use of fluoroscopy. There was no radiologist present. Attention was turned towards the left and right ureters catheters. A 5-Persian rubber catheter retrograde pyelogram was performed, revealing a dilated tortuous left collecting system stent in adequate position. MD ROSALBA Tran/SASKIA /[id number]
== END | disposition home or self-care (01) ==
LOC: OR 05:35
PROVIDERS: ATTEND Urology
DX: N13.30 Unspecified hydronephrosis (principal); Z46.6 Encounter for fitting and adjustment of urinary device; N13.8 Other obstructive and reflux uropathy; R81 Glycosuria; E05.90 Thyrotoxicosis, unspecified without thyrotoxic crisis or storm; E11.9 Type 2 diabetes mellitus without complications; N39.0 Urinary tract infection, site not specified; K85.90 Acute pancreatitis without necrosis or infection, unspecified; D64.9 Anemia, unspecified; F41.9 Anxiety disorder, unspecified; Z88.1 Allergy status to other antibiotic agents; Z79.4 Long term (current) use of insulin; Z98.890 Other specified postprocedural states; Z87.891 Personal history of nicotine dependence
CPT/HCPCS: 36415 ×2; 52332; 74420; 80048; 81025; 82948; 93005; C1758; C2617; J1100; J1580; J2001; J2405; J2704; Q9967; U0002; J2250; J3010

== ENCOUNTER → 2020-04-22 | Outpatient (CLI) | payer OTHER ==
[~2020-04-22] MED LIST changes: -DEXAMETHASONE SOD PHOS INJ 4 MG/ML VIAL ONE; -FENTANYL CITRATE/PF 100MCG/2 ML INJ ONE; -GENTAMICIN 80MG/NS 100 ML 100 ML IV ONE; -IOPAMIDOL 300MG/ML 50ML INFUS..BTL IV ONE; -LIDOCAINE HCL 2% LOCAL INJ 5 ML SDV VIAL INJ ONE; -MIDAZOLAM HCL 2 MG/2 ML VIAL ONE; -ONDANSETRON HCL INJ 2MG/ML 2ML 2 MG/ML VIAL ONE; -PROPOFOL IV EMULSION 10 MG/ML 20 ML VIAL ONE; -SEVOFLURANE INHAL SOLN 250 ML PEN BTL ONE
== END ==
LOC: DX 13:09
PROVIDERS: ATTEND Internal Medicine
DX: Z13.820 Encounter for screening for osteoporosis (principal)
CPT/HCPCS: 77080

== ENCOUNTER → 2020-06-17 | Day surgery (SDC) | payer OTHER ==
[2020-06-14 15:33] LABS: BLOOD UREA NITROGEN 10 mg/dL (7-26); BUN/CREATININE RATIO 14 (6-25); CALCIUM 9.8 mg/dL (8.4-10.2); CARBON DIOXIDE 21 mmol/L (22-29); CHLORIDE 105 mmol/L (98-107); CREATININE, SERUM 0.71 mg/dL (0.57-1.11); EST GLOMERULAR FILTRATION RATE > 60 ML/MIN (60-); GLUCOSE 138 mg/dL (74-118); SODIUM 138 mmol/L (136-145)
[~2020-06-17] MED LIST changes: +DEXAMETHASONE SOD PHOS INJ 4 MG/ML VIAL ONE; +GENTAMICIN 80MG/NS 100 ML 100 ML IV ONE; +IOPAMIDOL 300MG/ML 50ML INFUS..BTL IV ONE; +LIDOCAINE HCL 2% LOCAL INJ 5 ML SDV VIAL INJ ONE; +ONDANSETRON HCL INJ 2MG/ML 2ML 2 MG/ML VIAL ONE; +PROPOFOL IV EMULSION 10 MG/ML 20 ML VIAL ONE; +SEVOFLURANE INHAL SOLN 250 ML PEN BTL ONE
[2020-06-17 09:05] VITALS: BP 111/56
--- NOTE | 2020-06-17 10:17 | Diagnostic Imaging Report ---
OR Fluoroscopy: IMPRESSION: Fluoroscopy service provided in the OR. Interpretation not requested. Signed by: Yung Burdick MD on 06/17/2020 10:14 AM
--- NOTE | 2020-06-19 19:17 | Operative Report ---
DATE OF PROCEDURE: 06/17/2020 SURGEON: Govind Pringle MD PREOPERATIVE DIAGNOSES: 1. Indwelling left ureteral stent. 2. Left hydronephrosis. POSTOPERATIVE DIAGNOSES: 1. Indwelling left ureteral stent. 2. Left hydronephrosis. PROCEDURE: 1. Cystourethroscopy with removal of left ureteral stent, complicated. 2. Cystourethroscopy with catheterization and placement of left indwelling ureteral stent. 3. Supervision of fluoroscopy. 4. Interpretation of retrograde pyelography. ANESTHESIA: General. ESTIMATED BLOOD LOSS: Normal. COMPLICATIONS: None. INDICATIONS: Ms. Bojorquez is a 44-year-old female with history of chronic indwelling left ureteral stent secondary to hydronephrosis. She and I had a long discussion about alternatives, risks, and benefits and she elected to proceed with stent exchange. She voiced understanding that stent is a temporary indwelling device and it must be removed and that failure to do so, could lead to encrustation, infection, inflammation, atrophy, loss of kidney, and even . PROCEDURE IN DETAIL: After informed consent was obtained and empiric antibiotics were given, the patient was taken to the operative suite, placed supine on the operative table, underwent general anesthesia by the Anesthesia Service, placed in dorsal position, and sterilely prepped and draped for cystoscopy. A 21-Barbadian cystoscope was inserted per urethra, normal urethra was noted. Panendoscopy of the bladder revealed no tumors, no stones. Both ureteral orifices were normal in anatomic location and position, and efflux urine. Stent was seen extruding from left ureteral orifice and it was grasped removed intact. Attempts were made to insert a guidewire and this failed secondary to encrustation. The ureter was catheterized necessitating a 5-Barbadian open-ended catheter as well as a stiff wire. Retrograde pyelogram was performed and positioned in the upper pole of the collecting system on the left side. Catheter was reinserted and ureteral stent was then deployed with a coil in renal pelvis and a coil in the patient's bladder. The bladder was drained. The patient was awakened from anesthesia and transported to the recovery room in excellent condition. Supervision of fluoroscopy and interpretation of retrograde pyelography: I was present for the entire procedure and supervised the use of fluoroscopy. There was no radiologist present. A left ureter was catheterized using with 5-Barbadian open-ended catheter revealing a torturous ureter with proximal hydronephrosis and Interm exchange of left ureteral stent. MD ROSALBA Tran/SASKIA /[id number]
== END | disposition home or self-care (01) ==
LOC: OR 06:08
PROVIDERS: ATTEND Urology
DX: N13.30 Unspecified hydronephrosis (principal); Z46.6 Encounter for fitting and adjustment of urinary device; N13.8 Other obstructive and reflux uropathy; E11.9 Type 2 diabetes mellitus without complications; Z01.810 Encounter for preprocedural cardiovascular examination; Z01.812 Encounter for preprocedural laboratory examination; Z20.828 Contact with and (suspected) exposure to other viral communicable diseases; Z79.4 Long term (current) use of insulin
CPT/HCPCS: 36415; 52332; 74420; 80048; 81025; 93005; C1758; C1769; C2617; J1100; J1580; J2001; J2405; J2704; Q9967; U0002

== ENCOUNTER 2020-07-15 10:16 | Inpatient (IN) | payer OTHER ==
[2020-07-13 12:00] LABS: BASOPHILS % 0.5 % (0.0-1.0); EOSINOPHILS # (AUTO) 0.2 (0.0-0.4); EOSINOPHILS % 5.3 % (0.0-6.0); HEMATOCRIT 29.7 % (34.2-44.1); HEMOGLOBIN 7.6 g/dL (12.0-16.0); LYMPHOCYTES # (AUTO) 1.1 (1.0-3.2); LYMPHOCYTES % 27.6 % (18.0-39.1); MEAN CORPUSCULAR HEMOGLOBIN 15.5 pg (28-32); MEAN CORPUSCULAR HGB CONC 25.6 g/dL (31-35); MEAN CORPUSCULAR VOLUME 60.7 fL (81-99); MONOCYTES # (AUTO) 0.3 (0.2-0.8); NEUTROPHILS # (AUTO) 2.4 (2.1-6.9); NEUTROPHILS % 59.3 % (38.7-80.0); PLATELET COUNT 277 x10e3/uL (140-360); RED BLOOD COUNT 4.89 x10e6/uL (3.6-5.1); RED CELL DISTRIBUTION WIDTH 20.7 % (11.7-14.4)
[2020-07-13 12:04] LABS: CLARITY,URINE HAZY (CLEAR); COLOR,URINE YELLOW (YELLOW); KETONES,URINE NEGATIVE (NEGATIVE); LEUKOCYTE ESTERASE ,URINE MODERATE (NEGATIVE); NITRITE,URINE NEGATIVE (NEGATIVE); PROTEIN,URINE DIPSTICK 1+ (NEGATIVE); URINE UROBILINOGEN 0.2 mg/dL (0.2 - 1)
[2020-07-13 12:23] LABS: ALANINE AMINOTRANSFERASE 11 IU/L (0-55); ALBUMIN 3.7 g/dL (3.5-5.0); ALBUMIN/GLOBULIN RATIO 0.9 (0.8-2.0); ALKALINE PHOSPHATASE 159 IU/L (40-150); ANION GAP 13.5 mmol/L (8-16); BLOOD UREA NITROGEN 10 mg/dL (7-26); BUN/CREATININE RATIO 18 (6-25); CALCIUM 8.8 mg/dL (8.4-10.2); CARBON DIOXIDE 21 mmol/L (22-29); CHLORIDE 108 mmol/L (98-107); CREATININE, SERUM 0.56 mg/dL (0.57-1.11); EST GLOMERULAR FILTRATION RATE > 60 ML/MIN (60-); GLUCOSE 142 mg/dL (74-118); POTASSIUM 4.5 mmol/L (3.5-5.1); SODIUM 138 mmol/L (136-145)
[~2020-07-15] VITALS: Ht 154.9 cm; Wt 50.8 kg
[~2020-07-15 10:16] MED LIST changes: +ACTONEL35 MG PO; -DEXAMETHASONE SOD PHOS INJ 4 MG/ML VIAL ONE; -GENTAMICIN 80MG/NS 100 ML 100 ML IV ONE; -IOPAMIDOL 300MG/ML 50ML INFUS..BTL IV ONE; -LIDOCAINE HCL 2% LOCAL INJ 5 ML SDV VIAL INJ ONE; +LISPRO PO; -ONDANSETRON HCL INJ 2MG/ML 2ML 2 MG/ML VIAL ONE; -PROPOFOL IV EMULSION 10 MG/ML 20 ML VIAL ONE; -SEVOFLURANE INHAL SOLN 250 ML PEN BTL ONE
[2020-07-15] MEDS ORDERED: GENTAMICIN 120MG/NS 100ML 100 ML ONE (11:44)
[2020-07-15] MEDS ORDERED: LIDOCAINE 2%/ EPINEPHRINE 20ML MDV ONE (11:52)
[2020-07-15] MEDS ORDERED: BUPIVACAINE 0.25% 30ML SDV ONE (11:53)
[2020-07-15] MEDS ORDERED: HYDROMORPHONE 1MG/1ML INJ ONE (12:52)
[2020-07-15] MEDS ORDERED: ACETAMINOPHEN 1000 MG/100 ML 100 ML IV ONE (12:52)
[2020-07-15] MEDS ORDERED: CLINDAMYCIN PHOS 900MG/ 50ML 50 ML IV ONE (12:53)
[2020-07-15] MEDS ORDERED: BUPIVACAINE LIPOSOME/PF 266 MG/20 ML IJ ONE (14:40)
[2020-07-15] MEDS ORDERED: MIDAZOLAM HCL 2 MG/2 ML VIAL ONE (15:41)
[2020-07-15] MEDS ORDERED: FENTANYL CITRATE/PF 100MCG/2 ML INJ ONE ×2 (15:41→17:25)
[2020-07-15] MEDS ORDERED: GLYCOPYRROLATE INJ 0.2 MG/ML VIAL ONE (15:44)
[2020-07-15] MEDS ORDERED: ONDANSETRON HCL INJ 2MG/ML 2ML 2 MG/ML VIAL ONE (15:44)
[2020-07-15] MEDS ORDERED: PROPOFOL IV EMULSION 10 MG/ML 20 ML VIAL ONE (15:44)
[2020-07-15] MEDS ORDERED: ROCURONIUM BROMIDE 10 MG/ML 5ML VIAL IV ONE (15:44)
[2020-07-15] MEDS ORDERED: LIDOCAINE HCL 2% LOCAL INJ 5 ML SDV VIAL INJ ONE (15:44)
[2020-07-15] MEDS ORDERED: PHENYLEPHRINE HCL 1% 10 MG/ML VIAL ONE (15:44)
[2020-07-15] MEDS ORDERED: DEXAMETHASONE SOD PHOS INJ 4 MG/ML VIAL ONE (15:44)
[2020-07-15] MEDS ORDERED: SEVOFLURANE INHAL SOLN 250 ML PEN BTL ONE (15:44)
[2020-07-15] MEDS ORDERED: NEOSTIGMINE 1 MG/ML 10ML VIAL ONE (15:44)
[2020-07-15] MEDS ORDERED: KETOROLAC TROMETHAMINE 30 MG/ML VIAL IV PRN (17:00)
[2020-07-15] MEDS ORDERED: DIPHENHYDRAMINE HCL 25 MG CAP PO PRN (17:00)
[2020-07-15] MEDS ORDERED: DOCUSATE SODIUM 100 MG CAP PO PRN (17:00)
[2020-07-15] MEDS ORDERED: ONDANSETRON HCL INJ 2MG/ML 2ML 2 MG/ML VIAL IV PRN (17:00)
[2020-07-15] MEDS ORDERED: BISACODYL 10 MG SUPP PR PRN (17:00)
[2020-07-15] MEDS ORDERED: LISPRO PO SCH (17:00)
[2020-07-15] MEDS: INSULIN LISPRO 100 UNIT/1 ML 3ML VIAL SQ SCH ×2 (17:00→21:58)
[2020-07-15] MEDS ORDERED: TRAMADOL HCL 50 MG TAB PO PRN (17:30)
[2020-07-15 18:12] VITALS: BP 139/58
[2020-07-15] MEDS: LACTATED RINGER'S 1,000 ML IV SCH (18:32)
[2020-07-15] MEDS: SIMETHICONE 80 MG CHEW PO SCH ×2 (18:32→21:59)
[2020-07-15] MEDS: HYDROMORPHONE 1MG/1ML INJ IV PRN (20:49)
[2020-07-15] MEDS: CLINDAMYCIN PHOS 900MG/ 50ML 50 ML IV SCH (20:55)
[2020-07-15] MEDS ORDERED: ACETAMINOPHEN 325 MG TAB PO PRN (21:00)
[2020-07-15 21:16] VITALS: BP 145/70
[2020-07-15] MEDS: GENTAMICIN 120MG/NS 100ML 100 ML IV SCH (21:30)
[2020-07-15] MEDS: LISINOPRIL 10 MG TAB PO SCH (21:59)
[2020-07-15] MEDS: INSULIN GLARGINE 100 UNITS/ML VIAL SQ SCH (22:00)
[2020-07-16] VITALS (8 sets, daily range): BP systolic 105–124; BP diastolic 54–68
[2020-07-16] MEDS: HYDROMORPHONE 1MG/1ML INJ IV PRN ×5 (01:14→20:04)
[2020-07-16] MEDS: LACTATED RINGER'S 1,000 ML IV SCH ×3 (02:30→18:43)
[2020-07-16] MEDS: CLINDAMYCIN PHOS 900MG/ 50ML 50 ML IV SCH ×2 (04:07→12:42)
[2020-07-16] MEDS: GENTAMICIN 120MG/NS 100ML 100 ML IV SCH ×2 (04:48→12:42)
[2020-07-16 06:29] LABS: BASOPHILS % 0.1 % (0.0-1.0); LYMPHOCYTES % 11.6 % (18.0-39.1); MEAN CORPUSCULAR HEMOGLOBIN 16.1 pg (28-32); MEAN CORPUSCULAR HGB CONC 26.4 g/dL (31-35); MONOCYTES # (AUTO) 0.7 (0.2-0.8); MONOCYTES % 8.7 % (4.4-11.3); NEUTROPHILS # (AUTO) 6.6 (2.1-6.9); PLATELET COUNT 320 x10e3/uL (140-360); RED BLOOD COUNT 3.41 x10e6/uL (3.6-5.1); RED CELL DISTRIBUTION WIDTH 20.2 % (11.7-14.4)
[2020-07-16 06:59] LABS: HEMATOCRIT 20.8 % (34.2-44.1); HEMOGLOBIN 5.5 g/dL (12.0-16.0)
[2020-07-16] MEDS: SIMETHICONE 80 MG CHEW PO SCH ×3 (09:16→17:33)
[2020-07-16 09:56] LABS: ANION GAP 13.5 mmol/L (8-16); BLOOD UREA NITROGEN 11 mg/dL (7-26); BUN/CREATININE RATIO 20 (6-25); CARBON DIOXIDE 22 mmol/L (22-29); CHLORIDE 107 mmol/L (98-107); CREATININE, SERUM 0.54 mg/dL (0.57-1.11); EST GLOMERULAR FILTRATION RATE > 60 ML/MIN (60-); GLUCOSE 129 mg/dL (74-118); POTASSIUM 4.5 mmol/L (3.5-5.1); SODIUM 138 mmol/L (136-145)
[2020-07-16] MEDS ORDERED: SODIUM CHLORIDE 0.9% 250ML 250 ML IV ONE (10:15)
[2020-07-16 11:13] LABS: FREE THYROXINE INDEX 3.8352 (1.4-3.8); THYROID STIMULATING HORMONE 0.002 uIU/mL (0.350-4.940)
[2020-07-16 11:16] LABS: FERRITIN 8.25 ng/mL (4.63-204.00)
[2020-07-16] MEDS: INSULIN LISPRO 100 UNIT/1 ML 3ML VIAL SQ SCH ×3 (12:00→17:00)
[2020-07-16] MEDS ORDERED: SODIUM CHLORIDE 0.9% 250ML 250 ML ONE ×2 (14:44→20:59)
[2020-07-16] MEDS ORDERED: LISINOPRIL5 MG PO (18:56)
[2020-07-16] MEDS: INSULIN GLARGINE 100 UNITS/ML VIAL SQ SCH (21:00)
[2020-07-16] MEDS: LISINOPRIL 10 MG TAB PO SCH (21:00)
[2020-07-17 00:19] VITALS: BP 141/68
[2020-07-17] MEDS: HYDROMORPHONE 1MG/1ML INJ IV PRN ×2 (00:30→05:20)
[2020-07-17] MEDS: SIMETHICONE 80 MG CHEW PO SCH ×2 (00:38→08:14)
[2020-07-17] MEDS: LACTATED RINGER'S 1,000 ML IV SCH ×2 (02:30→08:14)
[2020-07-17 04:45] VITALS: BP 121/76
[2020-07-17 05:38] LABS: BASOPHILS % 0.3 % (0.0-1.0); EOSINOPHILS # (AUTO) 0.1 (0.0-0.4); EOSINOPHILS % 0.8 % (0.0-6.0); HEMATOCRIT 28.8 % (34.2-44.1); HEMOGLOBIN 8.5 g/dL (12.0-16.0); LYMPHOCYTES # (AUTO) 1.2 (1.0-3.2); LYMPHOCYTES % 20.4 % (18.0-39.1); MEAN CORPUSCULAR HGB CONC 29.5 g/dL (31-35); MEAN CORPUSCULAR VOLUME 67.6 fL (81-99); MONOCYTES # (AUTO) 0.5 (0.2-0.8); MONOCYTES % 8.3 % (4.4-11.3); NEUTROPHILS # (AUTO) 4.2 (2.1-6.9); NEUTROPHILS % 69.9 % (38.7-80.0); PLATELET COUNT 267 x10e3/uL (140-360); RED BLOOD COUNT 4.26 x10e6/uL (3.6-5.1); RED CELL DISTRIBUTION WIDTH 27.7 % (11.7-14.4)
[2020-07-17 06:25] LABS: ANION GAP 13.6 mmol/L (8-16); BLOOD UREA NITROGEN 7 mg/dL (7-26); BUN/CREATININE RATIO 13 (6-25); CALCIUM 8.1 mg/dL (8.4-10.2); CARBON DIOXIDE 22 mmol/L (22-29); CHLORIDE 105 mmol/L (98-107); CREATININE, SERUM 0.54 mg/dL (0.57-1.11); EST GLOMERULAR FILTRATION RATE > 60 ML/MIN (60-); GLUCOSE 97 mg/dL (74-118); POTASSIUM 3.6 mmol/L (3.5-5.1); SODIUM 137 mmol/L (136-145)
[2020-07-17 07:11] VITALS: BP 128/74
[2020-07-17 08:22] VITALS: BP 128/74
[2020-07-17] MEDS ORDERED: MOTRIN200 MG PO (10:02)
[2020-07-17] MEDS ORDERED: ULTRAM 50MG50 MG PO (10:02)
[2020-07-17] MEDS: INSULIN LISPRO 100 UNIT/1 ML 3ML VIAL SQ SCH ×2 (10:13→12:00)
[2020-07-17] MEDS ORDERED: IRON SUCROSE 200 MG in SODIUM CHLORIDE 0.9% 100 ML 100 ML IV SCH (11:00)
[2020-07-17 11:07] VITALS: BP 123/71
== END 2020-07-17 14:11 | disposition home or self-care (01) | DRG 743 ==
LOC: OR 10:16 → PACU V 16:23 → MED/SURG 18:00
PROVIDERS: ADMIT Obstetrics & Gynecology; ATTEND Obstetrics & Gynecology
PROC: 0UT70ZZ Resection of Bilateral Fallopian Tubes, Open Approach (ICD-10-PCS; 2020-07-15)
PROC: 0UJD4ZZ Inspection of Uterus and Cervix, Percutaneous Endoscopic Approach (ICD-10-PCS; 2020-07-15)
PROC: 0UT90ZZ Resection of Uterus, Open Approach (ICD-10-PCS; principal; 2020-07-15 12:30)
PROC: 30233N1 Transfusion of Nonautologous Red Blood Cells into Peripheral Vein, Percutaneous Approach (ICD-10-PCS; 2020-07-16)
DX: D25.9 Leiomyoma of uterus, unspecified (principal); N94.6 Dysmenorrhea, unspecified; E05.90 Thyrotoxicosis, unspecified without thyrotoxic crisis or storm; D50.0 Iron deficiency anemia secondary to blood loss (chronic); I11.9 Hypertensive heart disease without heart failure; N93.8 Other specified abnormal uterine and vaginal bleeding; M81.8 Other osteoporosis without current pathological fracture; Z20.828 Contact with and (suspected) exposure to other viral communicable diseases; E10.8 Type 1 diabetes mellitus with unspecified complications
CPT/HCPCS: 36415; 71046; 80048; 80053; 81003; 81025; 82728; 82948; 83021; 83540; 84436; 84443; 84466; 84479; 84702; 85025; 86850; 86900; 86920; 88305; 88307; 93005; J1100; J1170; J1580; J1756; J1815; J1885; J2001; J2250; J2370; J2405; J2710; J3010; J7050; J7121; P9016; U0002